=== PATIENT | female | born 1950 | race Caucasian/White ===

== ENCOUNTER 2017-10-12 20:36 | Observation (INO) | payer MEDICARE, SELFPAY ==
[2017-10-12 20:38] VITALS: BP 147/123; PULSE 112; RESP 28; TEMP 37.3; O2SAT 95; BMI 35.3
--- NOTE | 2017-10-12 20:48 | EKG12_ITS ---
Test Reason : Blood Pressure : / mmHG Vent. Rate : 081 BPM Atrial Rate : 079 BPM P-R Int : 000 ms QRS Dur : 074 ms QT Int : 394 ms P-R-T Axes : 000 -18 063 degrees QTc Int : 457 ms Sinus rhythm Otherwise normal ECG Confirmed by JIMI CUENCA, DELIA ([id number]), editor in chief ESTHER ARCHIBALD ([id number] on 10/18/2017 3:28:40 PM Referred By: MARCELLA Confirmed By:DELIA KRAUSE MD
--- NOTE | 2017-10-12 20:49 | CT_ITS ---
STUDY: CTA ABDOMEN AND PELVIS WITH IV CONTRAST REASON FOR EXAM: Female, 67 years old. Flank pain. Evaluate for aortic dissection. RADIATION DOSAGE (If Supplied By Facility): CTDIvol = ( 18.00 ) mGy, DLP = ( 981.56 ) mGycm TECHNIQUE: Transaxial images were obtained through the abdomen and pelvis without oral contrast, and with intravenous contrast. Sagittal and coronal images were reconstructed. Individualized dose optimization techniques were used for this CT. COMPARISON: None. FINDINGS: The lung bases are clear. The visualized portions of the heart and pericardium are within normal limits. There are no calcified gallstones present. The liver, spleen, pancreas, adrenal glands and kidneys are within normal limits. There is no bowel obstruction or inflammation. The patient is status post appendectomy. There is no evidence of aortic aneurysm or dissection. The celiac artery, superior mesenteric artery, bilateral renal arteries and inferior mesenteric artery are patent and normal in caliber. There is no abdominal or pelvic free air, free fluid or lymphadenopathy. There are no destructive osseous lesions. CT/CT ANGIO ABD&PEL W/O&W/DYE IMPRESSION: No evidence of abdominal aortic aneurysm or dissection. No acute abdominal or pelvic pathology. Electronically Signed: Simon Rodriguez, at 21:38 EDT Tel , Service support ,
--- NOTE | 2017-10-12 20:54 | ED.DCSUM_ITS ---
- ER Visit Summary Date of Service: 10/12/17 Chief Complaint: Abdominal and flank pain History of Present Illness: The patient is a 67 F presenting with abdominal pain and flank pain. She states this started just prior to arrival. She has pain in her mid abdomen and bilateral flanks. She tried Vicodin at home. She has had nausea and vomiting. She has a history of kidney stones and states this feels similar. She also has a history of fibromyalgia. Previous appendectomy. Denies fever. Denies chest pain or shortness of breath. Physical Examination: Vitals are stable. Patient is afebrile. Alert no acute distress. HEENT exam is unremarkable. Neck is supple. Lungs are clear and equal bilaterally. Heart is regular rate and rhythm. Abdomen is soft epigastric tenderness, no rebound or guarding. Extremities are unremarkable. Skin is warm and dry. No focal neurologic deficit. Remainder of exam is unremarkable. Emergency Department Course and Treatment: She is given morphine, Zofran IV. EKG is sinus rate of 81 with no acute changes. CBC chemistries unremarkable other than glucose 129, BUN 27, creatinine 1.17. Liver lipase are normal. Troponin is negative. She continues to have pain and was given a dose of Dilaudid IV. CTA abdomen and pelvis shows no acute process. Urinalysis shows positive leukocytes and nitrates, 10-25 white blood cells. Urine culture was sent. She was given Rocephin IV. She was given additional dose of Dilaudid and Phenergan. Patient continues to have significant pain. Will discuss with the hospitalist for observation. Disposition: Observation Impression: Pyelonephritis, intractable abdominal pain This note was generated with [employer] dictation software. It may contain incorrect words, spelling, and punctuation that were not noted in review of the chart prior to signing ED Disposition - Plan for ED Patient: Chief Complaint: Flank Pain Referrals: Chato Valdivia MD [Primary Care Provider] -
[2017-10-12] MEDS: 0.9% Normal Saline 1,000 ML 1000 ML IV (20:55)
[2017-10-12] MEDS: morphine 8 MG/ML Syringe IV (20:56)
[2017-10-12] MEDS: Ondansetron 4 MG/2 ML Vial IV (20:56)
--- NOTE | 2017-10-12 20:59 | NURSING ---
pt has a service dog and saw the paperwork to confirm.
[2017-10-12 21:00] LABS: Absolute Lymphocyte Count 3.93 X10^3/ul (0.83-4.51); Absolute Neutrophil Count 5.6 X10^3/uL (2.0-7.7); Basophil# 0.03 X10^3/uL; Basophil% 0.3 % (0-1); Eosinophil# 0.15 X10^3/uL; Eosinophils% 1.4 % (0-5); Hematocrit 43.1 % (37-47); Hemoglobin 14.5 g/dl (12.0-15.0); Lymphocyte # 3.93 X10^3/ul (4.0); Mean Corp Hgb Conc 33.6 g/gl (32-36); Mean Corpuscular Hgb 30.2 pg (27.0-32.0); Mean Corpuscular Volume 89.8 fL (81-99); Mean Platelet Vol. 9.2 fl (6.2-12.0); Monocyte# 1.18 X10^3/uL; Monocyte% 10.8 % (0-10); Neutrophil # 5.57 X10^3/uL (2.7-7.7); Platelet Count 332 K/mm3 (150-450); RBC Distribution Width CV 13.6 % (11.6-14.6); RBC Distribution Width SD 43.8 fl (35.1-43.9); White Blood Count 10.9 K/mm3 (4.4-11.0)
[2017-10-12 21:01] LABS: POSITIVE COUNT NO; POSITIVE DIFFERENTIAL NO; POSITIVE MORPHOLOGY NO
[2017-10-12 21:15] LABS: BUN 27 mg/dL (7-18); Creatinine, Serum 1.17 mg/dL (0.55-1.02); Estimated Creatinine Clearance 42.48 ml/min; Glucose 129 mg/dL (74-106)
[2017-10-12 21:16] LABS: AST(SGOT) 17 U/L (15-37); Alanine Aminotransfer ALT/SGPT 20 U/L (13-56); Albumin, Serum 3.7 g/dL (3.2-5.0); Alkaline Phosphatase 111 U/L (45-117); Anion Gap 8 (5-15); BUN/Creat Ratio 23.1 RATIO (10-20); Bilirubin, Direct 0.07 mg/dL (0.00-0.30); Calcium,Total 8.9 mg/dL (8.5-10.1); Chloride 109 mmol/L (98-107); EST Glomerular Filtration Rate 49 mL/min (>60); Est Glom Filt Rate - Afr Amer 59 mL/min (>60); Globulin 3.9 g/dL (2.2-4.2); Lipase 263 U/L (73-393); Protein, Total 7.6 g/dL (6.4-8.2); Sodium Level 143 mmol/L (136-145)
--- NOTE | 2017-10-12 21:19 | NURSING ---
let the doctor know that the pt is requesting more pain medication.
[2017-10-12 21:20] VITALS: BP 176/90; RESP 24; O2SAT 96
[2017-10-12] MEDS: HYDROmorphone 1 MG/ML Syringe IV ×2 (21:36→23:08)
[2017-10-12 21:54] LABS: Mucous, Urine 0 SEEN /hpf (<or=2+); Red Blood Cells-Urine 0 SEEN /hpf (0-5)
[2017-10-12 21:55] LABS: Color, Urine Yellow (Yellow); Glucose, Dipstick Normal (Normal); Ketone-Dipstick Negative (Negative); Leukocyte Esterase-Dipstick 500 /ul (Negative); Nitrite-Dipstick Positive (Negative); Occult Blood-Urine 10 /ul (Negative); Protein-Dipstick 15 mg/dl (Negative); Urine Bilirubin Dipstick Negative (Negative); Urine Clarity Clear (Clear); Urine Urobilinogen Normal (Normal); Urine pH 6.5 (5.0 - 8.0)
[2017-10-12 22:10] LABS: Bacteria RARE /hpf (None Seen); Squamous Epithelial Cells - UA 0-5 SEEN /hpf (5-10); White Blood Cells 10-25 SEEN /hpf (0-5)
[2017-10-12 23:17] VITALS: BP 137/89; PULSE 77; RESP 17; O2SAT 96
--- NOTE | 2017-10-12 23:33 | RAD_ITS ---
STUDY: X-RAY CHEST REASON FOR EXAM: Female, 67 years old. Dyspnea TECHNIQUE: Single AP portable view of the chest. COMPARISON: CT abdomen pelvis lung bases with a history/2017 FINDINGS: There are areas of hyperinflation. Minor atelectasis or scarring in the right middle lobe. There is no demonstrated pleural abnormality. Normal size heart. Normal mediastinum and srinivas. Normal visualized pulmonary arteries. Normal visualized aortic arch and descending thoracic aorta. Obscured thoracic spine. There is degenerative osteoarthritis of the bilateral shoulders. Air distended stomach. RAD/Chest 1 View (Portable) IMPRESSION: Hyperinflation. No pulmonary edema, congestive heart failure or confluent pneumonia. Electronically Signed: Nohelia Huffman MD at 0:21 EDT , Service support ,
[2017-10-13] VITALS (10 sets, daily range): BP systolic 133–152; BP diastolic 67–97; PULSE 78–100; RESP 14–18; TEMP 36.4–37.6; O2SAT 91–99; BMI 35.1
[2017-10-13] MEDS: Ceftriaxone 1 GM/50 ML BAG IV (00:53)
[2017-10-13] MEDS: proMETHazine 25 MG/ML Syringe 6.25 MG IV (00:53)
[2017-10-13 01:29] LABS: Lactic Acid 1.6 mmol/L (0.4-2.0)
--- NOTE | 2017-10-13 01:44 | PCM.HP.STD ---
Problem List (1) History of kidney stones Status: Chronic (2) Depression Status: Chronic (3) Fibromyalgia Status: Chronic History of Present Illness Date of Admission: 10/13/17 Chief Complaint: Abdominal pain/flank pain. The patient is a 67 year old F with past medical history as mentioned above presented to the emergency room because of abdominal and flank pain. She started having abdominal pain last night, it is in the upper abdomen, goes across the whole abdomen and today both flanks, sharp pain, 10 out of 10 in severity, described as a band around her abdomen, associated with nausea and vomiting and without aggravating or relieving factors. She mentioned that to his ago, she had burning sensation upon urination. She denies fever or chills. She had a history of kidney stones in the past status post shockwave lithotripsy. She had a history of fibromyalgia and she has been on Vicodin and Neurontin. She has still depression and anxiety and she has been on Cymbalta and Xanax. Upon arrival to the emergency room, patient was tachycardic, tachypneic, having profuse sweating and her blood pressure was slightly elevated. Her routine blood work was remarkable for BUN of 27 creatinine 1.17, otherwise normal. LFT and lipase were normal. Lactic acid was normal. EKG revealed sinus tachycardia, no acute ischemic changes. Troponin was negative. Urine analysis revealed clear urine, was positive for nitrite and leukocyte esterase, there was 10-25 WBCs and rare bacteria. CTA abdomen and pelvis showed no evidence of acute intra-abdominal aortic aneurysm or dissection, no acute abdominal or pelvic pathology. Chest x-ray showed no infiltrate, consolidation or effusion. She received a total of 18 mg of IV morphine in the ER as well as total of 2 mg of IV hydromorphone without significant improvement of her abdominal pain. She is being admitted for intractable abdominal/flank pain due to acute cystitis and probable acute pyelonephritis as well as dehydration. Past Medical History Past Medical History (Chronic Problems): Chronic Problems History of kidney stones (Chronic) Depression (Chronic) Fibromyalgia (Chronic) Allergies No Known Allergies Allergy (Verified 10/12/17 20:38) Home Medications: Ambulatory Orders Medication Instructions Recorded ALPRAZolam [Xanax] 1 mg PO QHS 10/12/17 Duloxetine Hcl [Cymbalta] 30 mg PO DAILY 10/12/17 Gabapentin [Neurontin] 400 mg PO TID 10/12/17 Hydrocodone/Acetaminophen [Fossil 1 each PO Q6H PRN PRN 10/12/17 5-325 Tablet] Surgical History: appendectomy, tonsillectomy, - - Lithotripsy for kidney stones. Psychiatric History: Anxiety, Depression [employer] History: No pertinent [employer] history Lives: Spouse/ Significant Other Smoking Status: Never smoker Alcohol: None Drugs: None - *Family History Maternal History Items: No pertinent history Paternal History Items: No pertinent history Review of Systems Constitutional: Reports: Anorexia. Denies: Chills, Fever, Weakness Eyes: Denies: Blurred vision, Double vision, Drainage, Redness HEENT: Denies: Difficulty Hearing, Ear Pain, Eye Pain, Nasal Congestion, Sore Throat Cardiovascular: Denies: Chest Pain, Chest Tightness, Edema, Heaviness, Light Headedness, Palpitations, Syncope Respiratory: Denies: Cough, Pleuritic Pain, Shortness of Breath, Sputum production, Wheezing Gastrointestinal: Reports: Abdominal Pain, Nausea, Vomiting. Denies: Constipation, Diarrhea, Hematochezia, Melena Genitourinary: Reports: Dysuria. Denies: Frequency, Hematuria Musculoskeletal: Denies: Arm Pain, Back Pain, Foot Pain Skin: Denies: Dryness, Rash Neurological: Denies: Balance problems, Double vision, Change in Speech, Slurred speech, Focal weakness, Headaches, Incoordination Psychiatric: Reports: Depression. Denies: Anxiety Endocrine: Denies: Change in Body Habitus, Polydipsia VTE Information - Inpt Only VTE Present on Admission: No VTE Mechan Device Prophylaxis: None VTE Pharm Prophylaxis ordered?: Yes - Physical Exam General: Alert, Oriented x3, Cooperative, No apparent distress HEENT: Atraumatic, PERRLA, EOMI Oral: Moist Mucosa, No Gingival or Mucosal Lesions/ Ulcerations Neck: Supple, No JVD, Negative Carotid Bruits, Trachea Midline, Thyroid Normal Size and Texture Lungs: Clear to auscultation, No rhonchi, No wheeze, No rales, Diminished Cardiovascular: Regular rate, Regular Rhythm, Normal S1, Normal S2, PMI Normal Abdomen: Bowel Sounds Present, Soft, Non Tender, Non-Distended, No Hepato-splenomegaly Extremities: No clubbing, No cyanosis, No edema Skin: No rashes, No breakdown Lymphatic: No Cervical, Supraclavicular, or Inguinal Adenopathy Neurological: Cranial nerves II-XII grossly intact, Motor Exam 5/5 strength throughout Psych/Mental Status: Normal Affect, Appropriate, Alert and oriented to time, place, person, mood and affect Vital Signs Temp Pulse Resp BP Pulse Ox 97.6 F L 87 18 152/97 H 96 10/13/17 01:26 10/13/17 01:26 10/13/17 01:26 10/13/17 01:26 10/13/17 01:26 Laboratory Tests 10/13/17 10/12/17 10/12/17 Range/Units 00:57 23:45 21:45 WBC (4.4-11.0) K/mm3 RBC (4.2-5.4) M/mm3 Hgb (12.0-15.0) g/dl Hct (37-47) % MCV (81-99) fL MCH (27.0-32.0) pg MCHC (32-36) g/gl RDW (11.6-14.6) % RDW Differential (35.1-43.9) fl Plt Count (150-450) K/mm3 MPV (6.2-12.0) fl Immature Gran % (Auto) (0.0-0.9) % Neut % (Auto) (47-70) % Lymph % (Auto) (19-41) % [place] % (Auto) (0-10) % Eos % (Auto) (0-5) % Baso % (Auto) (0-1) % Absolute Neuts (auto) (2.0-7.7) X10^3/uL Absolute Lymphs (auto) (0.83-4.51) X10^3/ul Total Counted Sodium (136-145) mmol/L Potassium (3.5-5.1) mmol/L Chloride (98-107) mmol/L Carbon Dioxide (21.0-32.0) mmol/L Anion Gap (5-15) BUN (7-18) mg/dL Creatinine (0.55-1.02) mg/dL Estim Creat Clear Calc ml/min Est GFR (MDRD) Af Amer (>60) mL/min Est GFR (MDRD) Non-Af (>60) mL/min BUN/Creatinine Ratio (10-20) RATIO Glucose (74-106) mg/dL Lactic Acid 1.6 (0.4-2.0) mmol/L Calcium (8.5-10.1) mg/dL Total Bilirubin (0.20-1.00) mg/dL Direct Bilirubin (0.00-0.30) mg/dL AST (15-37) U/L ALT (13-56) U/L Alkaline Phosphatase (45-117) U/L Troponin I < 0.02 (<0.06) ng/mL Total Protein (6.4-8.2) g/dL Albumin (3.2-5.0) g/dL Globulin (2.2-4.2) g/dL Lipase (73-393) U/L Urine Color Yellow (Yellow) Urine Clarity Clear (Clear) Urine pH 6.5 (5.0 - 8.0) Ur Specific [place] 1.010 (1.002-1.030) Urine Protein 15 H (Negative) mg/dl Urine Glucose (UA) Normal (Normal) mg/dl Urine Ketones Negative (Negative) mg/dl Urine Occult Blood 10 H (Negative) /ul Urine Nitrite Positive H (Negative) Urine Bilirubin Negative (Negative) mg/dL Urine Urobilinogen Normal (Normal) mg/dl Ur Leukocyte Esterase 500 H (Negative) /ul Urine RBC 0 SEEN (0-5) /hpf Urine WBC 10-25 SEEN (0-5) /hpf Ur Squamous Epith Cells 0-5 SEEN (5-10) /hpf Urine Bacteria RARE (None Seen) /hpf Urine Mucus 0 SEEN (<or=2+) /hpf 10/12/17 10/12/17 Range/Units 20:40 20:40 WBC 10.9 (4.4-11.0) K/mm3 RBC 4.80 (4.2-5.4) M/mm3 Hgb 14.5 (12.0-15.0) g/dl Hct 43.1 (37-47) % MCV 89.8 (81-99) fL MCH 30.2 (27.0-32.0) pg MCHC 33.6 (32-36) g/gl RDW 13.6 (11.6-14.6) % RDW Differential 43.8 (35.1-43.9) fl Plt Count 332 (150-450) K/mm3 MPV 9.2 (6.2-12.0) fl Immature Gran % (Auto) 0.500 (0.0-0.9) % Neut % (Auto) 51.0 (47-70) % Lymph % (Auto) 36.0 (19-41) % [place] % (Auto) 10.8 H (0-10) % Eos % (Auto) 1.4 (0-5) % Baso % (Auto) 0.3 (0-1) % Absolute Neuts (auto) 5.6 (2.0-7.7) X10^3/uL Absolute Lymphs (auto) 3.93 (0.83-4.51) X10^3/ul Total Counted Not Reportable Sodium 143 (136-145) mmol/L Potassium 4.0 (3.5-5.1) mmol/L Chloride 109 H (98-107) mmol/L Carbon Dioxide 26.0 (21.0-32.0) mmol/L Anion Gap 8 (5-15) BUN 27 H (7-18) mg/dL Creatinine 1.17 H (0.55-1.02) mg/dL Estim Creat Clear Calc 42.48 ml/min Est GFR (MDRD) Af Amer 59 L (>60) mL/min Est GFR (MDRD) Non-Af 49 L (>60) mL/min BUN/Creatinine Ratio 23.1 H (10-20) RATIO Glucose 129 H (74-106) mg/dL Lactic Acid (0.4-2.0) mmol/L Calcium 8.9 (8.5-10.1) mg/dL Total Bilirubin 0.30 (0.20-1.00) mg/dL Direct Bilirubin 0.07 (0.00-0.30) mg/dL AST 17 (15-37) U/L ALT 20 (13-56) U/L Alkaline Phosphatase 111 (45-117) U/L Troponin I < 0.02 (<0.06) ng/mL Total Protein 7.6 (6.4-8.2) g/dL Albumin 3.7 (3.2-5.0) g/dL Globulin 3.9 (2.2-4.2) g/dL Lipase 263 (73-393) U/L Urine Color (Yellow) Urine Clarity (Clear) Urine pH (5.0 - 8.0) Ur Specific [place] (1.002-1.030) Urine Protein (Negative) mg/dl Urine Glucose (UA) (Normal) mg/dl Urine Ketones (Negative) mg/dl Urine Occult Blood (Negative) /ul Urine Nitrite (Negative) Urine Bilirubin (Negative) mg/dL Urine Urobilinogen (Normal) mg/dl Ur Leukocyte Esterase (Negative) /ul Urine RBC (0-5) /hpf Urine WBC (0-5) /hpf Ur Squamous Epith Cells (5-10) /hpf Urine Bacteria (None Seen) /hpf Urine Mucus (<or=2+) /hpf Clinical Impression(s) from Imaging Studies Abdomen/Pelvis CTA 10/12/17 20:49 IMPRESSION: No evidence of abdominal aortic aneurysm or dissection. No acute abdominal or pelvic pathology. Electronically Signed: Simon Rodriguez at 21:38 EDT Tel , Service support , Chest X-Ray 10/12/17 23:33 IMPRESSION: Hyperinflation. No pulmonary edema, congestive heart failure or confluent pneumonia. Electronically Signed: Nohelia Huffman MD at 0:21 EDT , Service support , Assessment/Plan This is a 67 years old female patient admitted because of upper abdominal/flank pain with nausea and vomiting as well as dysuria and she was found to have acute cystitis and probable acute pyelonephritis. #1 acute cystitis/probable acute pyelonephritis: With intractable abdominal pain, received a total of 18 mg IV morphine and 2 mg of hydromorphone without significant improvement. Initially, she was tachycardic, afebrile and blood pressure was slightly elevated. After IV fluids and IV morphine, her heart rate and blood pressure stabilized. No evidence of sepsis or severe sepsis. Lactic acid is normal. Urine culture and blood culture sent, patient received 1 dose of IV Rocephin. CTA abdomen and pelvis without acute findings. Plan: Admit to [facility] [place] floor, IV fluids, follow blood and urine cultures, IV Rocephin 2 g every 24 hours, IV morphine as needed, IV antiemetics, repeat CBC and BMP tomorrow morning, PT OT evaluation and treatment. #2 dehydration: Secondary to above in addition to nausea and vomiting. BUN is 27 and creatinine is 1.17, her baseline is normal. Plan: IV fluids, input output chart, repeat CBC and BMP tomorrow morning. #3 history of kidney stones: CTA abdomen and pelvis without evidence of kidney stones. #4 depression/anxiety: Continue Xanax and Cymbalta. #5 fibromyalgia: Continue Neurontin, IV morphine as needed as above. #6 restless leg syndrome: Continue home medication. Patient mentioned that she is taking medication for this, resume when home medication list updated. #7 DVT prophylaxis: Subcu Lovenox. This note was generated with [employer] dictation software. It may contain incorrect words, spelling, and punctuation that were not noted in checking the note before signing. Code Visit Inpatient E&M: 20927 Init Hosp L3
--- NOTE | 2017-10-13 01:55 | HP.PCM_ITS ---
Problem List (1) History of kidney stones Status: Chronic (2) Depression Status: Chronic (3) Fibromyalgia Status: Chronic History of Present Illness Date of Admission: 10/13/17 Chief Complaint: Abdominal pain/flank pain. The patient is a 67 year old F with past medical history as mentioned above presented to the emergency room because of abdominal and flank pain. She started having abdominal pain last night, it is in the upper abdomen, goes across the whole abdomen and today both flanks, sharp pain, 10 out of 10 in severity, described as a band around her abdomen, associated with nausea and vomiting and without aggravating or relieving factors. She mentioned that to his ago, she had burning sensation upon urination. She denies fever or chills. She had a history of kidney stones in the past status post shockwave lithotripsy. She had a history of fibromyalgia and she has been on Vicodin and Neurontin. She has still depression and anxiety and she has been on Cymbalta and Xanax. Upon arrival to the emergency room, patient was tachycardic, tachypneic, having profuse sweating and her blood pressure was slightly elevated. Her routine blood work was remarkable for BUN of 27 creatinine 1.17, otherwise normal. LFT and lipase were normal. Lactic acid was normal. EKG revealed sinus tachycardia, no acute ischemic changes. Troponin was negative. Urine analysis revealed clear urine, was positive for nitrite and leukocyte esterase, there was 10-25 WBCs and rare bacteria. CTA abdomen and pelvis showed no evidence of acute intra-abdominal aortic aneurysm or dissection, no acute abdominal or pelvic pathology. Chest x-ray showed no infiltrate, consolidation or effusion. She received a total of 18 mg of IV morphine in the ER as well as total of 2 mg of IV hydromorphone without significant improvement of her abdominal pain. She is being admitted for intractable abdominal/flank pain due to acute cystitis and probable acute pyelonephritis as well as dehydration. Past Medical History Past Medical History (Chronic Problems): Chronic Problems History of kidney stones (Chronic) Depression (Chronic) Fibromyalgia (Chronic) Allergies No Known Allergies Allergy (Verified 10/12/17 20:38) Home Medications: Ambulatory Orders Medication Instructions Recorded ALPRAZolam [Xanax] 1 mg PO QHS 10/12/17 Duloxetine Hcl [Cymbalta] 30 mg PO DAILY 10/12/17 Gabapentin [Neurontin] 400 mg PO TID 10/12/17 Hydrocodone/Acetaminophen [[place] 1 each PO Q6H PRN PRN 10/12/17 5-325 Tablet] Surgical History: appendectomy, tonsillectomy, - - Lithotripsy for kidney stones. 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 Denies: Chills, Fever, Weakness Eyes: Denies: Blurred vision, Double vision, Drainage, Redness HEENT: Denies: Difficulty Hearing, Ear Pain, Eye Pain, Nasal Congestion, Sore Throat Cardiovascular: Denies: Chest Pain, Chest Tightness, Edema, Heaviness, Light Headedness, Palpitations, Syncope Respiratory: Denies: Cough, Pleuritic Pain, Shortness of Breath, Sputum production, Wheezing Gastrointestinal: Reports: Abdominal Pain, Nausea, Vomiting. Denies: Constipation, Diarrhea, Hematochezia, Melena Genitourinary: Reports: Dysuria. Denies: Frequency, Hematuria Musculoskeletal: Denies: Arm Pain, Back Pain, Foot Pain Skin: Denies: Dryness, Rash Neurological: Denies: Balance problems, Double vision, Change in Speech, Slurred speech, Focal weakness, Headaches, Incoordination Psychiatric: Reports: Depression. Denies: Anxiety Endocrine: Denies: Change in Body Habitus, Polydipsia VTE Information - Inpt Only VTE Present on Admission: No VTE Mechan Device Prophylaxis: None VTE Pharm Prophylaxis ordered?: Yes - Physical Exam General: Alert, Oriented x3, Cooperative, No apparent distress HEENT: Atraumatic, PERRLA, EOMI Oral: Moist Mucosa, No Gingival or Mucosal Lesions/ Ulcerations Neck: Supple, No JVD, Negative Carotid Bruits, Trachea Midline, Thyroid Normal Size and Texture Lungs: Clear to auscultation, No rhonchi, No wheeze, No rales, Diminished Cardiovascular: Regular rate, Regular Rhythm, Normal S1, Normal S2, PMI Normal Abdomen: Bowel Sounds Present, Soft, Non Tender, Non-Distended, No Hepato- splenomegaly Extremities: No clubbing, No cyanosis, No edema Skin: No rashes, No breakdown Lymphatic: No Cervical, Supraclavicular, or Inguinal Adenopathy Neurological: Cranial nerves II-XII grossly intact, Motor Exam 5/5 strength throughout Psych/Mental Status: Normal Affect, Appropriate, Alert and oriented to time, place, person, mood and affect Vital Signs Temp Pulse Resp BP Pulse Ox 97.6 F L 87 18 152/97 H 96 10/13/17 01:26 10/13/17 01:26 10/13/17 01:26 10/13/17 01:26 10/13/17 01:26 Laboratory Tests 3 10/13/17 10/12/17 10/12/17 Range/Units 00:57 23:45 21:45 WBC (4.4-11.0) K/mm3 RBC (4.2-5.4) M/mm3 Hgb (12.0-15.0) g/dl Hct (37-47) % MCV (81-99) fL MCH (27.0-32.0) pg MCHC (32-36) g/gl RDW (11.6-14.6) % RDW Differential (35.1-43.9) fl Plt Count (150-450) K/mm3 MPV (6.2-12.0) fl Immature Gran % (Auto) (0.0-0.9) % Neut % (Auto) (47-70) % Lymph % (Auto) (19-41) % [place] % (Auto) (0-10) % Eos % (Auto) (0-5) % Baso % (Auto) (0-1) % Absolute Neuts (auto) (2.0-7.7) X10^3/uL Absolute Lymphs (auto) (0.83-4.51) X10^3/ul Total Counted Sodium (136-145) mmol/L Potassium (3.5-5.1) mmol/L Chloride (98-107) mmol/L Carbon Dioxide (21.0-32.0) mmol/L Anion Gap (5-15) BUN (7-18) mg/dL Creatinine (0.55-1.02) mg/dL Estim Creat Clear Calc ml/min Est GFR (MDRD) Af Amer (>60) mL/min Est GFR (MDRD) Non-Af (>60) mL/min BUN/Creatinine Ratio (10-20) RATIO Glucose (74-106) mg/dL Lactic Acid 1.6 (0.4-2.0) mmol/L Calcium (8.5-10.1) mg/dL Total Bilirubin (0.20-1.00) mg/dL Direct Bilirubin (0.00-0.30) mg/dL AST (15-37) U/L ALT (13-56) U/L Alkaline Phosphatase (45-117) U/L Troponin I < 0.02 (<0.06) ng/mL Total Protein (6.4-8.2) g/dL Albumin (3.2-5.0) g/dL Globulin (2.2-4.2) g/dL Lipase (73-393) U/L Urine Color Yellow (Yellow) Urine Clarity Clear (Clear) Urine pH 6.5 (5.0 - 8.0) Ur Specific [place] 1.010 (1.002-1.030) Urine Protein 15 H (Negative) mg/dl Urine Glucose (UA) Normal (Normal) mg/dl Urine Ketones Negative (Negative) mg/dl Urine Occult Blood 10 H (Negative) /ul Urine Nitrite Positive H (Negative) Urine Bilirubin Negative (Negative) mg/dL Urine Urobilinogen Normal (Normal) mg/dl Ur Leukocyte Esterase 500 H (Negative) /ul Urine RBC 0 SEEN (0-5) /hpf Urine WBC 10-25 SEEN (0-5) /hpf Ur Squamous Epith Cells 0-5 SEEN (5-10) /hpf Urine Bacteria RARE (None Seen) /hpf Urine Mucus 0 SEEN (<or=2+) /hpf 3 10/12/17 10/12/17 Range/Units 20:40 20:40 WBC 10.9 (4.4-11.0) K/mm3 RBC 4.80 (4.2-5.4) M/mm3 Hgb 14.5 (12.0-15.0) g/dl Hct 43.1 (37-47) % MCV 89.8 (81-99) fL MCH 30.2 (27.0-32.0) pg MCHC 33.6 (32-36) g/gl RDW 13.6 (11.6-14.6) % RDW Differential 43.8 (35.1-43.9) fl Plt Count 332 (150-450) K/mm3 MPV 9.2 (6.2-12.0) fl Immature Gran % (Auto) 0.500 (0.0-0.9) % Neut % (Auto) 51.0 (47-70) % Lymph % (Auto) 36.0 (19-41) % [place] % (Auto) 10.8 H (0-10) % Eos % (Auto) 1.4 (0-5) % Baso % (Auto) 0.3 (0-1) % Absolute Neuts (auto) 5.6 (2.0-7.7) X10^3/uL Absolute Lymphs (auto) 3.93 (0.83-4.51) X10^3/ul Total Counted Not Reportable Sodium 143 (136-145) mmol/L Potassium 4.0 (3.5-5.1) mmol/L Chloride 109 H (98-107) mmol/L Carbon Dioxide 26.0 (21.0-32.0) mmol/L Anion Gap 8 (5-15) BUN 27 H (7-18) mg/dL Creatinine 1.17 H (0.55-1.02) mg/dL Estim Creat Clear Calc 42.48 ml/min Est GFR (MDRD) Af Amer 59 L (>60) mL/min Est GFR (MDRD) Non-Af 49 L (>60) mL/min BUN/Creatinine Ratio 23.1 H (10-20) RATIO Glucose 129 H (74-106) mg/dL Lactic Acid (0.4-2.0) mmol/L Calcium 8.9 (8.5-10.1) mg/dL Total Bilirubin 0.30 (0.20-1.00) mg/dL Direct Bilirubin 0.07 (0.00-0.30) mg/dL AST 17 (15-37) U/L ALT 20 (13-56) U/L Alkaline Phosphatase 111 (45-117) U/L Troponin I < 0.02 (<0.06) ng/mL Total Protein 7.6 (6.4-8.2) g/dL Albumin 3.7 (3.2-5.0) g/dL Globulin 3.9 (2.2-4.2) g/dL Lipase 263 (73-393) U/L Urine Color (Yellow) Urine Clarity (Clear) Urine pH (5.0 - 8.0) Ur Specific [place] (1.002-1.030) Urine Protein (Negative) mg/dl Urine Glucose (UA) (Normal) mg/dl Urine Ketones (Negative) mg/dl Urine Occult Blood (Negative) /ul Urine Nitrite (Negative) Urine Bilirubin (Negative) mg/dL Urine Urobilinogen (Normal) mg/dl Ur Leukocyte Esterase (Negative) /ul Urine RBC (0-5) /hpf Urine WBC (0-5) /hpf Ur Squamous Epith Cells (5-10) /hpf Urine Bacteria (None Seen) /hpf Urine Mucus (<or=2+) /hpf Clinical Impression(s) from Imaging Studies Abdomen/Pelvis CTA 10/12/17 20:49 IMPRESSION: No evidence of abdominal aortic aneurysm or dissection. No acute abdominal or pelvic pathology. Electronically Signed: Simon Rodriguez at 21:38 EDT Tel , Service support , Chest X-Ray 10/12/17 23:33 IMPRESSION: Hyperinflation. No pulmonary edema, congestive heart failure or confluent pneumonia. Electronically Signed: Nohelia Huffman MD at 0:21 EDT , Service support , Assessment/Plan This is a 67 years old female patient admitted because of upper abdominal/flank pain with nausea and vomiting as well as dysuria and she was found to have acute cystitis and probable acute pyelonephritis. #1 acute cystitis/probable acute pyelonephritis: With intractable abdominal pain , received a total of 18 mg IV morphine and 2 mg of hydromorphone without significant improvement. Initially, she was tachycardic, afebrile and blood pressure was slightly elevated. After IV fluids and IV morphine, her heart rate and blood pressure stabilized. No evidence of sepsis or severe sepsis. Lactic acid is normal. Urine culture and blood culture sent, patient received 1 dose of IV Rocephin. CTA abdomen and pelvis without acute findings. Plan: Admit to [facility] floor, IV fluids, follow blood and urine cultures, IV Rocephin 2 g every 24 hours, IV morphine as needed, IV antiemetics, repeat CBC and BMP tomorrow morning, PT OT evaluation and treatment. #2 dehydration: Secondary to above in addition to nausea and vomiting. BUN is 27 and creatinine is 1.17, her baseline is normal. Plan: IV fluids, input output chart, repeat CBC and BMP tomorrow morning. #3 history of kidney stones: CTA abdomen and pelvis without evidence of kidney stones. #4 depression/anxiety: Continue Xanax and Cymbalta. #5 fibromyalgia: Continue Neurontin, IV morphine as needed as above. #6 restless leg syndrome: Continue home medication. Patient mentioned that she is taking medication for this, resume when home medication list updated. #7 DVT prophylaxis: Subcu Lovenox. This note was generated with [employer] dictation software. It may contain incorrect words, spelling, and punctuation that were not noted in checking the note before signing. Code Visit Inpatient E&M: 63115 Init Hosp L3
[2017-10-13] MEDS: 0.9% Normal Saline 1,000 ML 100 ML IV (03:47)
[2017-10-13] MEDS: HYDROmorphone 1 MG/ML Syringe IV (03:51)
[2017-10-13] MEDS: Ketorolac 30 MG/ML Syringe IV (05:36)
[2017-10-13] MEDS: 0.9% NaCl Peripheral Flush Adult/Peds IV (05:37)
[2017-10-13 06:16] LABS: Anion Gap 9 (5-15); BUN 24 mg/dL (7-18); Calcium,Total 8.5 mg/dL (8.5-10.1); Chloride 108 mmol/L (98-107); Creatinine, Serum 0.89 mg/dL (0.55-1.02); EST Glomerular Filtration Rate 67 mL/min (>60); Est Glom Filt Rate - Afr Amer 81 mL/min (>60); Estimated Creatinine Clearance 53.68 ml/min; Glucose 115 mg/dL (74-106); Potassium 4.3 mmol/L (3.5-5.1); Sodium Level 143 mmol/L (136-145)
[2017-10-13 06:22] LABS: Absolute Lymphocyte Count 1.57 X10^3/ul (0.83-4.51); Basophil# 0.02 X10^3/uL; Basophil% 0.1 % (0-1); Eosinophil# 0.01 X10^3/uL; Eosinophils% 0.1 % (0-5); Hematocrit 44.6 % (37-47); Hemoglobin 14.5 g/dl (12.0-15.0); Lymphocyte # 1.57 X10^3/ul (4.0); Lymphocyte % 9.9 % (19-41); Mean Corp Hgb Conc 32.5 g/gl (32-36); Mean Corpuscular Hgb 29.7 pg (27.0-32.0); Mean Corpuscular Volume 91.2 fL (81-99); Mean Platelet Vol. 9.3 fl (6.2-12.0); Monocyte# 1.21 X10^3/uL; Monocyte% 7.6 % (0-10); Neutrophil # 13.01 X10^3/uL (2.7-7.7); Platelet Count 226 K/mm3 (150-450); RBC Distribution Width CV 13.8 % (11.6-14.6); RBC Distribution Width SD 45.7 fl (35.1-43.9); Red Blood Count 4.89 M/mm3 (4.2-5.4); White Blood Count 15.9 K/mm3 (4.4-11.0)
[2017-10-13 06:49] LABS: POSITIVE COUNT NO; POSITIVE DIFFERENTIAL NO; POSITIVE MORPHOLOGY NO
[2017-10-13] MEDS: Gabapentin 400 MG Capsule PO ×2 (08:38→10:56)
[2017-10-13] MEDS: Acetaminophen 325 MG Tablet 650 MG PO (08:38)
--- NOTE | 2017-10-13 08:45 | PCM.DC ---
- Discharge Diagnoses Current Active Problems: Current Active and Chronic Problems History of kidney stones (Chronic) Depression (Chronic) Fibromyalgia (Chronic) Reason(s) for Visit for Discharge Instructions: Abdominal pain You will use the following diet at home:: Regular Your food should be the consistency of: Regular Your liquids should be the consistency of: Regular/Thin Discharge Activity: Return to Normal Activity Additional Instructions: Please continue to hydrate yourself. Take all your medications as prescribed. You have been prescribed a muscle relaxant to see if that helps with the pain in your flank. Do not drive whilst on these medications as well as gabapentin because it can make you drowsy. Allergies/Adverse Reactions: Allergies No Known Allergies Allergy (Verified 10/12/17 20:38) Medications to take at Discharge ALPRAZolam [Xanax] 1 mg PO QHS 10/12/17 Duloxetine Hcl [Cymbalta] 30 mg PO DAILY 10/12/17 Gabapentin [Neurontin] 400 mg PO TID 10/12/17 Hydrocodone/Acetaminophen [[place] 5-325 Tablet] 1 each PO Q6H PRN PRN 10/12/17 Cefdinir [Omnicef [equiv]] 300 mg PO Q12H #6 cap 10/13/17 Cyclobenzaprine [Flexeril] 10 mg PO TID #10 tab 10/13/17 The following prescriptions were given: Cefdinir [Omnicef [equiv]] 300 mg PO Q12H #6 capsule Cyclobenzaprine [Flexeril] 10 mg PO TID #10 tablet Primary Care Physician: Chato Valdivia MD [Primary Care Provider] - Please follow up with your Primary Care Physician in: within 2 weeks Proposed Discharge Date: 10/13/17
--- NOTE | 2017-10-13 08:48 | DS.PCM_ITS ---
Discharge Date and Diagnosis Date of Admission: 10/13/17 Date of Discharge: 10/13/17 - Primary Discharge Diagnosis UTI Abdominal pain - Secondary Discharge Diagnosis Chronic Problems History of kidney stones (Chronic) Depression (Chronic) Fibromyalgia (Chronic) Hospital Course and Treatment Imaging Results: Clinical Impression(s) from Imaging Studies Abdomen/Pelvis CTA 10/12/17 20:49 IMPRESSION: No evidence of abdominal aortic aneurysm or dissection. No acute abdominal or pelvic pathology. Electronically Signed: Simon Rodriguez, at 21:38 EDT Tel , Service support , Chest X-Ray 10/12/17 23:33 IMPRESSION: Hyperinflation. No pulmonary edema, congestive heart failure or confluent pneumonia. Electronically Signed: Nohelia Huffman MD at 0:21 EDT , Service support , None Operations: None Procedures: None Summary of Care Provided: 67 years old female admitted with upper abdominal/flank pain with nausea and vomiting as well as dysuria and she was found to have acute cystitis. 1. Acute cystitis, with intractable abdominal pain, patient was admitted for pain control, had a huge amount of pain medicines in the ED and on the floor, pain improved with admission, started on IV Rocephin and discharged on cefdinir , patient improved, patient was kept on her home [place], Flexeril was added for muscle spasms of the left flank. 2. Dehydration, resolved with IV fluids, BMP shows improvement in BUN and creatinine. 3. History of kidney stones, admitting CT abdomen and pelvis without evidence of kidney stones. 4. Depression/anxiety, on Xanax and Cymbalta. 5. Fibromyalgia, on Neurontin 6. Restless leg syndrome Discharge Diet: No Restrictions Discharge Activity: Return to Normal Activity Home Medications: Medications to take at Discharge ALPRAZolam [Xanax] 1 mg PO QHS 10/12/17 Duloxetine Hcl [Cymbalta] 30 mg PO DAILY 10/12/17 Gabapentin [Neurontin] 400 mg PO TID 10/12/17 Hydrocodone/Acetaminophen [[place] 5-325 Tablet] 1 each PO Q6H PRN PRN 10/12/17 Cefdinir [Omnicef [equiv]] 300 mg PO Q12H #6 cap 10/13/17 Cyclobenzaprine [Flexeril] 10 mg PO TID #10 tab 10/13/17 Following Prescrptions Were Given to Patient: Cefdinir [Omnicef [equiv]] 300 mg PO Q12H #6 cap Cyclobenzaprine [Flexeril] 10 mg PO TID #10 tab Primary Care Physician: Chato Valdivia MD [Primary Care Provider] - Please follow up with your Primary Care Physician in: within 2 weeks Disposition: Home Minutes spent on discharge:: 25 Patient Condition:: Stable Medical Necessity - Tobacco Use Smoking Status: Never smoker Meaningful Use Info Meaningful Use Diagnoses (Choose all that apply): None applicable Code Visit Inpatient E&M: 11271 Disch Hosp
[2017-10-13] MEDS: DULoxetine Hcl 30 MG Capsule PO (09:11)
[2017-10-13] MEDS: HYDROcodone Bitartrate/Apap 5/325 Tablet PO (10:54)
== END 2017-10-13 08:45 | disposition home or self-care (01) ==
LOC: ED 22:15 → PCU 10-13 01:51
PROVIDERS: Admitting Provider Hospitalist; Emergency Provider Emergency Medicine; Family Provider Family Medicine; PCP Family Medicine; Visit Provider Internal Medicine
DX: N30.00 Acute cystitis without hematuria (principal); G25.81 Restless legs syndrome; M79.7 Fibromyalgia; Z87.442 Personal history of urinary calculi; E86.0 Dehydration; F41.9 Anxiety disorder, unspecified; F32.9 Major depressive disorder, single episode, unspecified; Z79.899 Other long term (current) drug therapy
CPT/HCPCS: 36415; 71045; 74174; 80048; 80076; 81001; 83605; 83690; 84484; 85025; 87040; 87086; 87088; 87186; 93005; 96361; 96374; 96375; 96376; 99218; 99285; J7030; Q9967; A4216; G0378; J2405

== ENCOUNTER → 2019-01-31 | Outpatient (CLI) | payer MEDICARE, SELFPAY ==
[2017-10-13 02:07] VITALS: BMI 35.1
[2019-01-31 17:12] LABS: Absolute Lymphocyte Count 3.09 X10^3/uL (0.83-4.51); Absolute Neutrophil Count 6.6 X10^3/uL (2.0-7.7); Basophil# 0.05 X10^3/uL; Basophil% 0.5 % (0-1); Eosinophil# 0.21 X10^3/uL; Eosinophils% 1.9 % (0-5); Hematocrit 46.4 % (37-47); Hemoglobin 15.1 g/dL (12.0-15.0); Lymphocyte # 3.09 X10^3/ul (4.0); Mean Corp Hgb Conc 32.5 g/dL (32-36); Mean Corpuscular Hgb 29.2 pg (27.0-32.0); Mean Corpuscular Volume 89.6 fL (81-99); Mean Platelet Vol. 10.3 fl (6.2-12.0); Monocyte# 1.02 X10^3/uL; Monocyte% 9.2 % (0-10); NRBC Flagged by Analyzer 0 % (0-5); Neutrophil # 6.62 X10^3/uL (2.7-7.7); Platelet Count 287 K/mm3 (150-450); RBC Distribution Width CV 13.4 % (11.6-14.6); RBC Distribution Width SD 43.8 fl (35.1-43.9); Red Blood Count 5.18 M/mm3 (4.2-5.4)
[2019-01-31 17:54] LABS: ALB/GLOB Ratio 0.9 RATIO (0.9-2.4); AST(SGOT) 17 U/L (15-37); Alanine Aminotransfer ALT/SGPT 26 U/L (13-56); Albumin, Serum 3.6 g/dL (3.2-5.0); Alkaline Phosphatase 129 U/L (45-117); Anion Gap 10 (5-15); BUN 21 mg/dL (7-18); BUN/Creat Ratio 19.4 RATIO (10-20); Calcium,Total 8.8 mg/dL (8.5-10.1); Chloride 110 mmol/L (98-107); Cholesterol 189 mg/dL (200); Creatinine, Serum 1.08 mg/dL (0.55-1.02); EST Glomerular Filtration Rate 53 mL/min (>60); Est Glom Filt Rate - Afr Amer 64 mL/min (>60); Globulin 3.8 g/dL (2.2-4.2); Glucose 108 mg/dL (74-106); High Density Lipoprotein 38 mg/dL; Potassium 3.9 mmol/L (3.5-5.1); Protein, Total 7.4 g/dL (6.4-8.2); Sodium Level 146 mmol/L (136-145); Thyroid Stim Hormone (TSH) 0.91 uIU/mL (0.358-3.74); Triglycerides 284 mg/dL; Very Low Density Lipoprotein 57 mg/dL (5-40)
[2019-01-31 18:52] LABS: Hepatitis C Antibody Non-Reactive (Nonreactive)
== END | disposition home or self-care (01) ==
PROVIDERS: Family Provider Family Medicine; PCP Family Medicine; Visit Provider Family Medicine Geriatric Medicine
DX: B27.90 Infectious mononucleosis, unspecified without complication (principal); E78.49 Other hyperlipidemia; R53.83 Other fatigue; N39.0 Urinary tract infection, site not specified; Z13.89 Encounter for screening for other disorder
CPT/HCPCS: 36415; 80053; 80061; 84443; 85025; 86803; 87086; 87088; 87186

== ENCOUNTER → 2019-02-17 09:20 | Outpatient (CLI) | payer MEDICARE, SELFPAY ==
[2019-02-17 18:36] LABS: Absolute Lymphocyte Count 2.55 X10^3/uL (0.83-4.51); Absolute Neutrophil Count 5.1 X10^3/uL (2.0-7.7); Basophil# 0.05 X10^3/uL; Basophil% 0.6 % (0-1); Eosinophil# 0.18 X10^3/uL; Eosinophils% 2.1 % (0-5); Hematocrit 46.4 % (37-47); Hemoglobin 14.7 g/dL (12.0-15.0); Lymphocyte # 2.55 X10^3/ul (4.0); Lymphocyte % 29.2 % (19-41); Mean Corp Hgb Conc 31.7 g/dL (32-36); Mean Corpuscular Hgb 29.5 pg (27.0-32.0); Mean Platelet Vol. 9.4 fl (6.2-12.0); Monocyte# 0.76 X10^3/uL; Monocyte% 8.7 % (0-10); NRBC Flagged by Analyzer 0 % (0-5); Neutrophil # 5.11 X10^3/uL (2.7-7.7); Neutrophil % 58.6 % (47-70); Platelet Count 314 K/mm3 (150-450); RBC Distribution Width CV 13.7 % (11.6-14.6); RBC Distribution Width SD 46.7 fl (35.1-43.9); Red Blood Count 4.99 M/mm3 (4.2-5.4); White Blood Count 8.7 K/mm3 (4.4-11.0)
[2019-02-17 19:06] LABS: ALB/GLOB Ratio 0.9 RATIO (0.9-2.4); AST(SGOT) 20 U/L (15-37); Alanine Aminotransfer ALT/SGPT 19 U/L (13-56); Albumin, Serum 3.4 g/dL (3.2-5.0); Alkaline Phosphatase 112 U/L (45-117); Anion Gap 7 (5-15); BUN 23 mg/dL (7-18); BUN/Creat Ratio 23.5 RATIO (10-20); Calcium,Total 8.9 mg/dL (8.5-10.1); Chloride 109 mmol/L (98-107); Cholesterol 193 mg/dL (200); Creatinine, Serum 0.98 mg/dL (0.55-1.02); EST Glomerular Filtration Rate 60 mL/min (>60); Est Glom Filt Rate - Afr Amer 72 mL/min (>60); Globulin 3.9 g/dL (2.2-4.2); Glucose 91 mg/dL (74-106); High Density Lipoprotein 38 mg/dL; Protein, Total 7.3 g/dL (6.4-8.2); Sodium Level 141 mmol/L (136-145); Thyroid Stim Hormone (TSH) 3.45 uIU/mL (0.358-3.74); Triglycerides 249 mg/dL; Very Low Density Lipoprotein 50 mg/dL (5-40)
[2019-02-17 20:54] LABS: Hemoglobin A1c 5.6 % (4.2-6.3)
== END ==
PROVIDERS: Family Provider Family Medicine; PCP Family Medicine
DX: R53.82 Chronic fatigue, unspecified (principal); E66.9 Obesity, unspecified; R42 Dizziness and giddiness
CPT/HCPCS: 36415; 80053; 80061; 83036; 84443; 85025

== ENCOUNTER → 2019-04-06 | Outpatient (CLI) | payer MEDICARE, SELFPAY ==
[2017-10-13 02:07] VITALS: BMI 35.1
--- NOTE | 2019-04-06 12:29 | BI_ITS ---
MAMMOGRAPHY - BILATERAL SCREENING REASON FOR EXAM: Female, 68 years old. Routine annual screening examination. PERTINENT HISTORY: Non-contributory. TECHNIQUE: Digital bilateral breast arnulfo (3D mammographic acquisition) in the CC and MLO projections. 2-D mediolateral oblique (MLO) and craniocaudad (CC) views of both breasts were obtained. CAD: Full Field Digital Mammography with Computer Added Detection was performed. COMPARISON: Comparison is made with prior study dated November 26, 2010. FINDINGS: Breast Composition: There are scattered areas of fibroglandular density. There are no dominant masses or suspicious calcifications. Stable small benign-appearing bilateral axillary lymph. No other significant abnormalities are identified. There has been no significant change since the prior study. BI/SCREEN MAMM (CAD) W/ARNULFO BILAT IMPRESSION: Stable bilateral screening mammogram. Yearly follow-up mammogram recommended. (A) ASSESSMENT CATEGORY: BIRADS Category 2: Benign. A letter regarding these results will be sent to the patient by the facility within 30 days. Approximately 10% of breast cancers are not detected by mammography. A normal mammogram should not delay biopsy of a clinically suspicious abnormality. [id number] Electronically Signed: Paul Jay, at 13:48 EDT , Service support ,
--- NOTE | 2019-04-06 12:32 | BD_ITS ---
STUDY: DUAL ENERGY X-RAY ABSORPTIOMETRY / DXA REASON FOR EXAM: Female, 68 years old. The patient is postmenopausal. Loss of height. TECHNIQUE: Bone Mineral Density (BMD) measurements of lumbar spine and bilateral hips were obtained. COMPARISON: Comparison is made with prior study dated November 27, 2010. FINDINGS: Lumbar Spine (L1-L4): g/cm2 (1.052) / T-score (-0.9) / Z-score (0.7) Findings are suggestive of normal bone density with a low fracture risk. Left Femur Total: g/cm2 (0.925) / T-score (-0.7) / Z-score (0.8) Left Femoral Neck: g/cm2 (0.769) / T-score (-1.9) / Z-score (-0.2) Right Femur Total: g/cm2 (0.957) / T-score (-0.4) / Z-score (1.1) Right Femoral Neck: g/cm2 (0.797) / T-score (-1.7) / Z-score (0.0) The T-Scores on the most recent prior examination were: Lumbar Spine (L1-L4): There has been worsening of bone density since the previous examination. Left Femur Total: which represents a worsening of 11.7%. Right Femur Total: which represents a worsening of 3%. BD/Dexa Bone Density Study IMPRESSION: The patient is considered osteopenic as outlined below according to World [place] Organization (WHO) criteria with a moderate fracture risk. There has been worsening of bone density since the previous examination. Reference Information: The T-score is the number of standard deviations above or below the standard which is normal for young adults at their peak bone mineral density. The World Health Organization (WHO) interprets the T-scores as follows: Above -1 Normal bone density Between -1 and -2.5 Osteopenia Equal to / or below -2.5 Osteoporosis As a practical clinical guideline, osteopenia may be graded as follows: Mild -1 through -1.5 Moderate -1.6 through -2.0 Severe -2.1 through -2.4 The Z-score is the number of standard deviations above or below age-matched controls. A Z-score of less than -1.5 would be considered abnormal. References: 1. NIH Osteoporosis and Related Bone Diseases http://www.osteo.org 2. International Society for Clinical Densitometry http://www.iscd.org 3. National Osteoporosis Foundation http://www.nof.org Electronically Signed: Paul Jay, at 15:37 EDT , Service support ,
== END | disposition home or self-care (01) ==
LOC: OPBD 12:26
PROVIDERS: Family Provider Family Medicine Geriatric Medicine; PCP Family Medicine Geriatric Medicine; Referring Provider Family Medicine Geriatric Medicine; Visit Provider Family Medicine Geriatric Medicine
DX: Z78.0 Asymptomatic menopausal state (principal); Z12.31 Encounter for screening mammogram for malignant neoplasm of breast
CPT/HCPCS: 77063; 77067; 77080

== ENCOUNTER → 2019-06-29 14:47 | Outpatient (CLI) | payer MEDICARE, SELFPAY ==
[2017-10-13 02:07] VITALS: BMI 35.1
[2019-06-29 16:59] LABS: Absolute Neutrophil Count 4.2 X10^3/uL (2.0-7.7); Basophil# 0.04 X10^3/uL; Basophil% 0.5 % (0-1); Eosinophil# 0.24 X10^3/uL; Eosinophils% 3.1 % (0-5); Hematocrit 44.9 % (37-47); Hemoglobin 14.3 g/dL (12.0-15.0); Lymphocyte % 31.5 % (19-41); Mean Corp Hgb Conc 31.8 g/dL (32-36); Mean Corpuscular Hgb 28.9 pg (27.0-32.0); Mean Corpuscular Volume 90.9 fL (81-99); Mean Platelet Vol. 10.2 fl (6.2-12.0); Monocyte% 9.2 % (0-10); NRBC Flagged by Analyzer 0 % (0-5); Neutrophil # 4.23 X10^3/uL (2.7-7.7); Neutrophil % 55.4 % (47-70); Platelet Count 282 K/mm3 (150-450); RBC Distribution Width CV 13.9 % (11.6-14.6); RBC Distribution Width SD 46.4 fl (35.1-43.9); Red Blood Count 4.94 M/mm3 (4.2-5.4); White Blood Count 7.6 K/mm3 (4.4-11.0)
[2019-06-29 17:05] LABS: Vitamin D,25 Hydroxy 25.8 ng/mL (29.95-100.01)
[2019-06-29 17:10] LABS: ALB/GLOB Ratio 0.9 RATIO (0.9-2.4); AST(SGOT) 19 U/L (15-37); Alanine Aminotransfer ALT/SGPT 25 U/L (13-56); Albumin, Serum 3.6 g/dL (3.2-5.0); Alkaline Phosphatase 117 U/L (45-117); Anion Gap 5 (5-15); BUN 26 mg/dL (7-18); Calcium,Total 8.8 mg/dL (8.5-10.1); Chloride 109 mmol/L (98-107); Cholesterol 179 mg/dL (200); Creatinine, Serum 0.96 mg/dL (0.55-1.02); EST Glomerular Filtration Rate 61 mL/min (>60); Est Glom Filt Rate - Afr Amer 74 mL/min (>60); Globulin 3.9 g/dL (2.2-4.2); Glucose 93 mg/dL (74-106); High Density Lipoprotein 41 mg/dL; Potassium 4.6 mmol/L (3.5-5.1); Protein, Total 7.5 g/dL (6.4-8.2); Sodium Level 142 mmol/L (136-145); Thyroid Stim Hormone (TSH) 0.84 uIU/mL (0.358-3.74); Triglycerides 181 mg/dL; Very Low Density Lipoprotein 36 mg/dL (5-40)
== END ==
PROVIDERS: Family Provider Family Medicine Geriatric Medicine; PCP Family Medicine Geriatric Medicine; Visit Provider Family Medicine Geriatric Medicine
DX: E55.9 Vitamin D deficiency, unspecified (principal); E78.5 Hyperlipidemia, unspecified; R53.83 Other fatigue
CPT/HCPCS: 36415; 80053; 80061; 82306; 84443; 85025

== ENCOUNTER 2019-12-21 20:30 | Inpatient (IN) | payer MEDICARE, SELFPAY ==
[2019-12-21 20:31] VITALS: BP 182/100; PULSE 82; RESP 18; TEMP 36.6; O2SAT 96; BMI 32.8
--- NOTE | 2019-12-21 21:25 | US_ITS ---
HISTORY: RT SIDE PAIN TECHNIQUE: Thornton scale and color doppler imaging was performed of the pancreas, liver, and gallbladder. COMPARISON: CT scan of the abdomen and pelvis from October 12, 2017 FINDINGS: # of images incl. paperwork: 162 Liver is normal in size and appearance. Many tiny gallstones are present within the gallbladder lumen No gallbladder wall thickening or biliary dilatation. Gallbladder wall measures 3 mm. On several of the images of the gallbladder wall there is some comet tail artifact suggestive of cholesterolosis to the gallbladder wall which. Common bile duct measures 5 mm. Tenderness upon insonation the gallbladder. Visualized pancreas is normal in appearance. Right kidney is normal in size and appearance. Visualized abdominal aorta has normal caliber. IVC is patent. Hepatopedal flow is present within the central portal vein. US/Gallbladder IMPRESSION: Cholelithiasis. Possible cholesterolosis or adenomyomatosis of the gallbladder wall. . Cholelithiasis with tenderness upon insonation of the gallbladder are suggestive of acute cholecystitis at 2225 Reported and signed by: Sher Anthony MD Electronically Signed: Sher Anthony MD at 22:24 EDT Tel , Service support ,
--- NOTE | 2019-12-21 21:26 | ED.VIS.GI ---
History of Present Illness Chief Complaint: Complaint Informant: Patient - Abdominal Pain/Flank Pain Onset: Hours - 1.5 Context: Sudden Onset Timing: Continuous, Waxes and wanes Quality: Aching Location: RUQ - no rad Current Severity: Severe Maximum Severity: Severe Worsened by: Nothing Relieved by: Nothing - Nausea/Vomiting/Emesis GI Symptom: Nausea, Vomiting Quality: Nonbilious. Negative for: Blood streaks, Coffee ground, Hematemesis Severity: Moderate - Diarrhea/Melena/Hematochezia GI Symptom: Negative for: Diarrhea, Melena, Hematochezia Associated Symptoms: Negative for: Dysuria, Frequency, Hematuria, Urgency Narrative: Ate burritos about 2 hours prior to the onset of pain. States she has had this once before, unknown etiology, only abdominal surgery was appendectomy. Does not radiate into her back. No urinary symptoms. [place] fine prior to the onset of pain. - Past Medical History (1) Depression Status: Chronic (2) Fibromyalgia Status: Chronic (3) History of kidney stones Status: Chronic Past Medical History - Allergies and Home Meds Allergies/Adverse Reactions: Allergies No Known Allergies Allergy (Verified 12/21/19 20:45) Primary Care Physician: Ed Bowman Chi, MD [Primary Care Provider] - Surgical History: appendectomy, tonsillectomy, - - Lithotripsy for kidney stones. Lives: Spouse/ Significant Other Smoking Status: Never smoker - Family History Maternal Family History: Reports: No pertinent history Paternal Family History: Reports: No pertinent history Review of Systems General: Denies: Chills, Fever, Sweats Eyes: Denies: Visual changes - bilaterally, Diplopia ENT: Denies: Bilateral ear pain, Rhinorrhea, Sore throat Cardiovascular: Denies: Chest pain, Palpitations Respiratory: Denies: Dyspnea, Cough, Dyspnea on exertion Gastrointestinal: Reports: Abdominal pain, Nausea, Vomiting. Denies: Diarrhea, Melena, Hematochezia Genitourinary: Denies: Dysuria, Hematuria, Frequency Musculoskeletal: Denies: Back pain, Swelling, Extremity Pain Skin: Denies: Rash, Wounds Neurological: Denies: Headache, Weakness, Numbness Psych: Reports: Anxiety Physical Exam Vital Signs/Narrative: Vital Signs Temp Pulse Resp BP Pulse Ox 12/21/19 20:31 97.8 F 82 18 182/100 H 96 Inital Vital Signs reviewed: Yes General: Well nourished, Well developed, Obese, Acute Distress - Painful Head: Normocephalic, Atraumatic Eyes: Perrl, EOMI ENT: Moist mucous membranes, No rhinorrhea Neck: Supple, Nontender Cardiovascular: Regular rate, Regular rhythm, No murmurs Respiratory: No distress, CTA bilaterally, Chest nontender Abdomen: Soft, Nondistended, Normal bowel sounds, Tender - Right upper quadrant only, Guarding, Ceils's sign. Negative for: Rebound tenderness, Pulsatile mass Back: Nontender, Normal Inspection. Negative for: CVA tenderness Extremities: Nontender, No edema Skin: Normal color, No rash Neurological: Alert, Oriented x3, Cranial nerves II-XII grossly intact, Normal Strength, Normal Sensation, Normal Gait Psychological: Normal Mood, - - Anxious Diagnostic/Tx/Re-eval Impressions Gallbladder Ultrasound 12/21/19 21:25 IMPRESSION: Cholelithiasis. Possible cholesterolosis or adenomyomatosis of the gallbladder wall. . Cholelithiasis with tenderness upon insonation of the gallbladder are suggestive of acute cholecystitis at 2225 Reported and signed by: Sher Anthony MD Electronically Signed: Sher Anthony MD at 22:24 EDT Tel , Service support , 12/21/19 21:25 Gallbladder [US] Stat Laboratory Results 12/21/19 12/21/19 20:45 20:45 WBC 10.2 RBC 4.91 Hgb 14.6 Hct 44.7 MCV 91.0 MCH 29.7 MCHC 32.7 RDW Std Deviation 44.4 H RDW Coeff of Larry 13.3 Plt Count 304 MPV 9.7 Immature Gran % (Auto) 0.500 Neut % (Auto) 52.4 Lymph % (Auto) 35.3 [place] % (Auto) 9.8 Eos % (Auto) 1.5 Baso % (Auto) 0.5 Absolute Neuts (auto) 5.4 Absolute Lymphs (auto) 3.61 Nucleated RBC % 0 Sodium 146 H Potassium 4.3 Chloride 109 H Carbon Dioxide 33.0 H Anion Gap 4 L BUN 23 H Creatinine 1.03 H Estim Creat Clear Calc 45.08 Est GFR (MDRD) Af Amer 68 Est GFR (MDRD) Non-Af 56 L BUN/Creatinine Ratio 22.3 H Glucose 103 Calcium 9.9 Total Bilirubin 0.30 AST 20 ALT 20 Alkaline Phosphatase 117 Total Protein 7.9 Albumin 3.8 Globulin 4.1 Albumin/Globulin Ratio 0.9 Lipase 117 - Medical Decision Making Ultrasound of the right upper quadrant obtained, consistent with acute calculus cholecystitis. Her labs show a borderline leukocytosis, with normal liver enzymes, no cholestasis. Initially treated with IV fluids, Zofran, Toradol, morphine, took the edge off the pain but she was still in discomfort and then given Dilaudid. Plan is to admit to medical surgical. Discussed with Dr. Ramos. Clinically stable. Zosyn given in ER. ED Disposition - Plan for ED Patient: Disposition: [facility] Diagnosis: Acute calculous cholecystitis Referrals: Ed Bowman Chi, MD [Primary Care Provider] -
[2019-12-21 21:36] LABS: Absolute Lymphocyte Count 3.61 X10^3/uL (0.83-4.51); Absolute Neutrophil Count 5.4 X10^3/uL (2.0-7.7); Basophil# 0.05 X10^3/uL; Basophil% 0.5 % (0-1); Eosinophil# 0.15 X10^3/uL; Eosinophils% 1.5 % (0-5); Hematocrit 44.7 % (37-47); Hemoglobin 14.6 g/dL (12.0-15.0); Lymphocyte # 3.61 X10^3/ul (4.0); Lymphocyte % 35.3 % (19-41); Mean Corp Hgb Conc 32.7 g/dL (32-36); Mean Corpuscular Hgb 29.7 pg (27.0-32.0); Mean Platelet Vol. 9.7 fl (6.2-12.0); Monocyte% 9.8 % (0-10); NRBC Flagged by Analyzer 0 % (0-5); Neutrophil # 5.36 X10^3/uL (2.7-7.7); Neutrophil % 52.4 % (47-70); Platelet Count 304 K/mm3 (150-450); RBC Distribution Width CV 13.3 % (11.6-14.6); RBC Distribution Width SD 44.4 fl (35.1-43.9); Red Blood Count 4.91 M/mm3 (4.2-5.4); White Blood Count 10.2 K/mm3 (4.4-11.0)
[2019-12-21] MEDS: 0.9% Normal Saline 1,000 ML 125 ML IV (21:36)
[2019-12-21] MEDS: Morphine 4 MG/ML Syringe IV (21:36)
[2019-12-21] MEDS: Ketorolac 30 MG/ML Syringe 15 MG IV (21:36)
[2019-12-21] MEDS: Ondansetron 4 MG/2 ML Vial IV (21:37)
[2019-12-21 21:48] LABS: ALB/GLOB Ratio 0.9 RATIO (0.9-2.4); AST(SGOT) 20 U/L (15-37); Alanine Aminotransfer ALT/SGPT 20 U/L (13-56); Albumin, Serum 3.8 g/dL (3.2-5.0); Alkaline Phosphatase 117 U/L (45-117); Anion Gap 4 (5-15); BUN 23 mg/dL (7-18); BUN/Creat Ratio 22.3 RATIO (10-20); Calcium,Total 9.9 mg/dL (8.5-10.1); Chloride 109 mmol/L (98-107); Creatinine, Serum 1.03 mg/dL (0.55-1.02); EST Glomerular Filtration Rate 56 mL/min (>60); Est Glom Filt Rate - Afr Amer 68 mL/min (>60); Estimated Creatinine Clearance 45.08 ml/min; Globulin 4.1 g/dL (2.2-4.2); Glucose 103 mg/dL (74-106); Lipase 117 U/L (73-393); Potassium 4.3 mmol/L (3.5-5.1); Protein, Total 7.9 g/dL (6.4-8.2); Sodium Level 146 mmol/L (136-145)
[2019-12-21] MEDS: HYDROmorphone 0.5 MG/0.5 ML SYRINGE IV (23:00)
[2019-12-21 23:01] VITALS: BP 157/86; PULSE 74; RESP 16; O2SAT 96
[2019-12-22] VITALS (14 sets, daily range): BP systolic 148–164; BP diastolic 78–100; PULSE 74–99; RESP 16–20; TEMP 36.4–37.2; O2SAT 92–99; BMI 32.8; BMI 31.3
--- NOTE | 2019-12-22 | GALL_PTH ---
PATIENT: BARBARA HERNANDEZ LOC: MS3 U#:[id number] AGE/SX: 69/F ROOM: NJ325 RE12/22/[address]: Dr. Darya Ramos MD : 1950 BED: 1 DIS: 12/23/2019 SPEC #: [id number] RECD: 12/22/19 15:01 STATUS: SARAHY REQ #: [id number] HIMANSHU: 12/22/19 00:[address]: Darya Ramos DEPT: SURGICAL PATHOLOGY RECD BY: Jose Luis ENTERED: 12/25/19 09:39 SP TYPE: JACKIE HOWARD DR: Dr. Ed Bwoman MD Tissues: Gallbladder, NOS Procedures: Surgery Specimen Level III HEADER OPERATION: Laparoscopic cholecystectomy PRE-OP DIAGNOSIS: Cholelithiasis, intractable pain TISSUE SUBMITTED: Gallbladder MICROSCOPIC DIAGNOSIS Gallbladder, cholecystectomy: Chronic cholecystitis and cholelithiasis. SJ:michael 6/16/20 MICROSCOPIC DESCRIPTION Slides are reviewed. GROSS DESCRIPTION Received is one container labeled with the patient's name and designated gallbladder. The specimen consists of a gallbladder measuring 9 x 4 x 3.5 cm. The external surface is smooth and glistening. Focally, it is granular, hemorrhagic and contains cautery artifact. The lumen of the gallbladder contains green mucoid bile and multiple chalky white calculi ranging in size from 0.5 to 0.9 cm. The mucosa is bile-stained and without any mass lesions. The gallbladder wall averages 0.2 cm in thickness and is free of mass lesions. Wrapper Caser sections of the gallbladder and the cystic duct at margin of resection are submitted in one cassette. / AM:michael 12/25/19 TC:3 CPT: 23590
[2019-12-22] MEDS: Lactated Ringers 1,000 ML 100 ML IV ×2 (02:36→11:09)
[2019-12-22] MEDS: Morphine 4 MG/ML Syringe IV ×2 (02:42→05:29)
[2019-12-22] MEDS: 0.9% Saline Lock 10 ML Syringe IV ×3 (02:42→08:35)
--- NOTE | 2019-12-22 03:35 | NURSING ---
PT REQUESTS THAT HER SPOUSE, TOM BE NOTIFIED THAT HE'S ABLE TO VISIT WITH HER PRIOR TO SURGERY. WOULD ALSO LIKE SURGERY TIME COMMUNICATED TO HIM. [phone]
--- NOTE | 2019-12-22 07:23 | PCM.HP.BLA ---
History and Physical Date of Admission: 12/22/19 Chief Complaint: abdominal pain History of Present Illness: 69 y/o WF presents with right upper quadrant abdominal pain. This was sudden onset, but patient feels she may have had similar though less severe type pain for the past month. States that it is primarily in the right upper quadrant and does not radiate. States that the patient is occasional sharp. Has had nausea/emesis last night. Denies fevers. Denies diarrhea, has occasional constipation with pain medications. Denies biliary obstructive signs such as jaundice, icterus. Past Medical History: fibromyalgia history of kidney stones Past Surgical History: hysterectomy tonsillectomy appendectomy lithotripsy for kidney stones Medications: takes vicodin up to 7.5 mg qday cymbalta neurontin Allergies: Has no known drug allergies Social history: TOB use denies Review of Systems: General - denies fevers, denies weight loss, denies anorexia Cardiovascular denies chest pain, denies history of heart attack Pulmonary denies shortness of breath, denies coughing up blood Gastrointestinal as per HPI, denies blood in stools Neurological denies seizures, denies history of stroke Genitourinary denies burning with urination, denies blood in urine Hematological denies spontaneous/prolonged bleeding Skin denies open non healing wounds Musculoskeletal has fibromyalgia, was recently told that one leg is shorter than the other and undergoing chiropractor treatments for this Endocrine denies temperature intolerance, denies hair/skin changes, denies history of radiation exposure, denies history of thyroiditis Psychological denies hallucinations Physical examination: Vital signs Temp 98.1F HR 102 BP 148/80 General WD/WN WF in no apparent distress, alert and oriented, not septic appearing HEENT Normocephalic. EOM intact with sclera clear and no icterus noted. Neck is supple with no jugular venous distention noted. Trachea is midline. Lungs normal breath sounds. No rales/rhonchi/wheezing noted. No labored breathing noted, such as retractions. No cough heard. Heart normal S1 and S2 auscultated. No rubs/clicks/murmurs noted. Normal size and location by auscultation. Abdomen soft but tender in the right upper quadrant, obese, difficult to determine if any masses or organomegaly due to body habitus. Extremities no pitting edema noted. . Genitourinary/Rectal deferred Skin no rashes noted. Normal skin integrity. Neurological non focal. Psychological normal affect, patient is calm and appropriate Labs - WBC 10.2K Hgb 14.6 Plt 304k, LFTs normal Impression: cholelithiasis intractable pain Discussion/Plan: I have discussed the above with the patient. I have offered the patient the procedure of laparoscopic cholecystectomy, possible cholangiograms. I have explained the procedure to the patient. I have counseled the patient as to the risks of the procedure, including but not limited to: infection, bleeding, injury to any blood vessels/nerves, scar tissue, injury to any intraabdominal organs, injury to kidney/ureters, injury to bowel/bladder, injury to the common bile duct/biliary tree, bile leakage, intraabdominal abscess/bleeding, hernias at incisional sites, wound infections, possible open procedure, complications of anesthesia, postoperative pneumonia/cardiac problems/blood clots etc. the patient understands. I have also told her that she may be at risk of getting COVID or having risks/complications with COVID due to intubation and surgical stress. She states that she is not worried, she doesn't believe in COVID and states that it was made over there and then sent here and that there are 7 states that don't even have it. She agrees to proceed. I have answered all questions to the patient?s satisfaction and the patient has no further questions.
--- NOTE | 2019-12-22 07:45 | EKGRS_ITS ---
Test Reason : PRE-OP Blood Pressure : / mmHG Vent. Rate : 058 BPM Atrial Rate : 058 BPM P-R Int : 168 ms QRS Dur : 084 ms QT Int : 472 ms P-R-T Axes : 047 -30 027 degrees QTc Int : 463 ms Sinus bradycardia Left axis deviation Abnormal ECG Confirmed by KIRAN CUENCA, MARGA ([id number]), sound editor TEZ TIRADO ([id number]) on 12/27/2019 1:15:09 PM Referred By: CRIS Confirmed By:MARGA BECK MD
[2019-12-22] MEDS: HYDROmorphone 0.5 MG/0.5 ML SYRINGE IV ×3 (08:34→21:20)
[2019-12-22] MEDS: Ondansetron 4 MG/2 ML Vial IV (08:34)
--- NOTE | 2019-12-22 12:06 | DCINST_ITS ---
Discharge Diet: No Restrictions - drink plenty of fluids avoid carbonated beverages for a couple of days as it would make you bloat and may cause more discomfort Discharge Activity: Return to Normal Activity, May not drive while taking narcotic pain medications. Lifting Restrictions: no lifting greater than 20 pounds for two weeks Additional Activity Instructions:: ambulation/walking is encouraged Call your doctor if your incision/area has: Continuous Slow Oozing, Foul Smelling Discharge Call your doctor if you observe: Fever of 101 or Higher Additional Dressing/Incision Instructions:: Leave dressings in place. May get wet in shower. Do not soak - no tub baths/swimming Allergies/Adverse Reactions: Allergies No Known Allergies Allergy (Verified 12/21/19 20:45) Medications to take at Discharge Duloxetine Hcl [Cymbalta] 60 mg PO BID 10/12/17 Gabapentin [Neurontin] 800 mg PO QHS 10/12/17 Hydrocodone/Acetaminophen [[place] 5-325 Tablet] 1 each PO Q6H PRN PRN 10/12/17 Hydrocodone/Acetaminophen [[place] 5-325 Tablet] 1 each PO Q8 PRN 5 Days #15 tablet 12/22/19 The following prescriptions were given: Hydrocodone/Acetaminophen [[place] 5-325 Tablet] 1 each PO Q8 PRN 5 Days #15 tablet PRN Reason: Pain Score 6-10/10 Transmission Status: Sent to [facility] Primary Care Physician: Ed Bowman Chi, MD [Primary Care Provider] - Test Results: Test results from this visit will be discussed in further detail at your follow- up appointment, if applicable. Please Follow Up With: Darya Ramos MD - call When: a virtual visit appointment will be set up for you
--- NOTE | 2019-12-22 12:09 | OP.PCM_ITS ---
Report of Operation Date of Procedure: 12/22/19 Pre-Operative Diagnosis: cholelithiasis, intractable abdominal pain Post-Operative Diagnosis: cholelithiasis, acute cholecystitis Surgery/Procedure Performed:: laparoscopic cholecystectomy Description of Surgical Findings:: thickened gallbladder wall with edema c/w acute cholecystitis exterminator helper termite: Leanne Crouch Type of Anesthesia:: General Anesthesiologist: Julia Wilson Specimen's removed: gallbladder and contents Estimated Blood Loss (mL): < 5 ml Fluids Replaced: 600 ml RL Description of Procedure: After informed consent was given, the patient was brought to the Operating Room. Appropriate time out protocol was followed. She was then placed in the supine position. The patient was then placed under general endotracheal anesthesia. The abdomen was then prepped with a sterile surgical skin preparation and sterile surgical drapes were placed. An area of skin superior to the umbilical dimple was grasped with penetrating clamps and the skin and subcutaneous tissues were infiltrated with 0.25% marcaine with epinephrine. A skin incision was then made with a 15 blade scalpel. The anterior abdominal wall was elevated and a Veress needle was carefully inserted into the intraabdominal cavity. It was checked to be in the proper position with a normal saline drop test. A CO2 pneumoperitoneum was then created. Once this was achieved, then the Veress needle was removed and an 11mm trocar was placed in its stead. A 10mm laparoscope was then inserted into the trocar and careful attention was directed to the intraabdominal contents. There was no evidence of injury to any intraabdominal organs from insertion of the Veress needle or the trocar. Under direct visualization, a 5mm subxiphoid trocar and two lateral 5mm right subcostal trocars were placed. The skin and subcutaneous tissues at these sites were infiltrated with 0.25% marcaine with epinephrine prior to placement of these trocars. Attention was then directed to the right upper quadrant of the abdomen. The gallbladder wall was thickened and edematous c/w acute cholecystitis. There was scant surrounding pericholecystic fluid. Graspers were placed in the lateral trocars to grasp the distal aspect of the gallbladder and direct it cephalad and to grasp the gallbladder at Pittman?s pouch and direct it laterally. Dissection then began on the proximal gallbladder continuing down to the area of the triangle of Calot to bluntly dissect out the cystic duct. The neck of the gallbladder was identified and blunt dissection continued to dissect out a segment of the cystic duct. A clip was then placed on the neck of the gallbladder. Two clips were placed proximal and the cystic duct was then transected. The cystic artery was visualized and bluntly isolated and then two clips were placed proximally and one clip distally and then it was transected between the proximal and distal clips. The gallbladder was then from the liver bed using electrocautery. The gallbladder wall was edematous. The gallbladder was placed in an Endobag and thus able to be brought out of the daquan-umbilical port. It was then forwarded to pathology for analysis. The liver bed was carefully examined. There was no evidence of bile leakage or bleeding. The cystic duct stump and cystic artery stump had their clips intact and there was no evidence of bile leakage or bleeding. The remainder of the abdomen was grossly normal. The CO2 was released and all trocars removed intact. The periumbilical fascia was approximated with a [id number] 0 vicryl suture. All skin incision were closed with 4-0 monocryl in a subdermal fashion. Cavilol and Steristrips were used to reinforce the skin closure. Sterile dressings were applied to all wounds. The patient was extubated and brought to the Recovery Room in stable condition. - Complications none noted - Admit VTE Documentation VTE Present on Admission: Yes VTE Mechan Device Prophylaxis: SCD's
[2019-12-22] MEDS: Bupiv/Epi 0.25% 30 ML Vial (13:08)
--- NOTE | 2019-12-22 14:31 | CASEMGMT ---
RN CM NOTE: To room to complete RN CM Assessment. Pt not in room/is @ OR at this time. Juanito BSN RN CM
[2019-12-22] MEDS: HYDROcodone Bitartrate/Apap 5/325 Tablet PO (18:10)
[2019-12-23 00:15] VITALS: BP 147/89; PULSE 89; RESP 18; TEMP 36.7; O2SAT 93
[2019-12-23] MEDS: Lactated Ringers 1,000 ML 100 ML IV (00:33)
[2019-12-23] MEDS: HYDROmorphone 0.5 MG/0.5 ML SYRINGE IV ×3 (00:33→08:50)
[2019-12-23 03:17] VITALS: BMI 32.8
[2019-12-23] MEDS: HYDROcodone Bitartrate/Apap 5/325 Tablet PO (03:43)
[2019-12-23 03:46] VITALS: BP 143/73; PULSE 81; RESP 18; TEMP 36.9; O2SAT 92
[2019-12-23 06:01] VITALS: BMI 32.8
[2019-12-23 08:41] VITALS: BP 161/81; PULSE 83; RESP 18; TEMP 37.1; O2SAT 95
--- NOTE | 2019-12-23 09:18 | CASEMGMT ---
RN CM attempted CM assessment, patient discharged prior to RN CM seeing patient. Patient's PCP is [facility]. Patient to follow-up with surgeon. Patient lives with . No needs anticipated.
== END 2019-12-23 09:12 | disposition home or self-care (01) | DRG 419 ==
LOC: ED 22:53 → MS3 12-22 03:28
PROVIDERS: Admitting Provider Surgery; Emergency Provider Emergency Medicine; PCP Family Medicine Geriatric Medicine; Visit Provider Surgery
PROC: 0FT44ZZ Resection of Gallbladder, Percutaneous Endoscopic Approach (ICD-10-PCS; CPT 47610; principal; 2019-12-22 11:40)
DX: K80.00 Calculus of gallbladder with acute cholecystitis without obstruction (principal); M79.7 Fibromyalgia; K21.9 Gastro-esophageal reflux disease without esophagitis; F32.9 Major depressive disorder, single episode, unspecified; F41.9 Anxiety disorder, unspecified; Z79.899 Other long term (current) drug therapy
CPT/HCPCS: 76705; 80053; 83690; 85025; 87635; 88304; 93005; 99285; G2023; J7050; J7120; A4216; J2310; J2405; U0003

== ENCOUNTER → 2019-12-27 09:00 | Outpatient (CLI) | payer MEDICARE, SELFPAY ==
[2019-12-22 10:52] VITALS: BMI 31.3
--- NOTE | 2019-12-27 09:17 | RAD_ITS ---
STUDY: X-RAY - ABDOMEN/PELVIS REASON FOR EXAM: Female, 69 years old. Cholecystectomy 12-22-19 -- pain, swelling TECHNIQUE: AP supine and upright views of the abdomen and pelvis. COMPARISON: None. FINDINGS: Normal visualized lung bases. There is an abundance of fecal material throughout the colon. There is no demonstrated free abdominal air. The visualized liver, spleen and kidneys are grossly normal in size and morphology. There are calcified phleboliths in the pelvis. There are degenerative changes of the visualized lumbar spine. RAD/Abd Inc Decub and/or Erect IMPRESSION: Large amount of fecal material is seen in the colon. Electronically Signed: Paul Jay, at 9:49 EDT , Service support ,
[2019-12-27 12:42] LABS: Absolute Lymphocyte Count 2.37 X10^3/uL (0.83-4.51); Absolute Neutrophil Count 5.5 X10^3/uL (2.0-7.7); Basophil# 0.04 X10^3/uL; Basophil% 0.5 % (0-1); Eosinophil# 0.14 X10^3/uL; Eosinophils% 1.6 % (0-5); Hematocrit 45.4 % (37-47); Hemoglobin 14.7 g/dL (12.0-15.0); Lymphocyte # 2.37 X10^3/ul (4.0); Lymphocyte % 26.8 % (19-41); Mean Corp Hgb Conc 32.4 g/dL (32-36); Mean Corpuscular Hgb 29.9 pg (27.0-32.0); Mean Corpuscular Volume 92.5 fL (81-99); Mean Platelet Vol. 9.9 fl (6.2-12.0); Monocyte# 0.73 X10^3/uL; Monocyte% 8.2 % (0-10); NRBC Flagged by Analyzer 0 % (0-5); Neutrophil # 5.52 X10^3/uL (2.7-7.7); Neutrophil % 62.3 % (47-70); Platelet Count 335 K/mm3 (150-450); RBC Distribution Width CV 13.6 % (11.6-14.6); RBC Distribution Width SD 46.1 fl (35.1-43.9); Red Blood Count 4.91 M/mm3 (4.2-5.4); White Blood Count 8.9 K/mm3 (4.4-11.0)
[2019-12-27 12:49] LABS: ALB/GLOB Ratio 0.9 RATIO (0.9-2.4); AST(SGOT) 27 U/L (15-37); Alanine Aminotransfer ALT/SGPT 29 U/L (13-56); Albumin, Serum 3.7 g/dL (3.2-5.0); Alkaline Phosphatase 96 U/L (45-117); Anion Gap 8 (5-15); BUN 19 mg/dL (7-18); BUN/Creat Ratio 21.3 RATIO (10-20); Calcium,Total 9.8 mg/dL (8.5-10.1); Chloride 105 mmol/L (98-107); Creatinine, Serum 0.89 mg/dL (0.55-1.02); EST Glomerular Filtration Rate 66 mL/min (>60); Est Glom Filt Rate - Afr Amer 80 mL/min (>60); Globulin 4.1 g/dL (2.2-4.2); Glucose 126 mg/dL (74-106); Potassium 4.7 mmol/L (3.5-5.1); Protein, Total 7.8 g/dL (6.4-8.2); Sodium Level 140 mmol/L (136-145)
== END ==
PROVIDERS: PCP Family Medicine Geriatric Medicine; Referring Provider Family Medicine Geriatric Medicine; Visit Provider Family Medicine Geriatric Medicine
DX: R10.9 Unspecified abdominal pain (principal); R39.0 Extravasation of urine
CPT/HCPCS: 36415; 74019; 80053; 85025; 87077; 87086; 87088; 87186

== ENCOUNTER → 2020-01-30 12:09 | Outpatient (CLI) | payer MEDICARE, SELFPAY ==
[2019-12-22 10:52] VITALS: BMI 31.3
[2020-01-30 12:41] LABS: Absolute Lymphocyte Count 3.09 X10^3/uL (0.83-4.51); Absolute Neutrophil Count 4.2 X10^3/uL (2.0-7.7); Basophil# 0.04 X10^3/uL; Basophil% 0.5 % (0-1); Eosinophil# 0.19 X10^3/uL; Eosinophils% 2.2 % (0-5); Hematocrit 41.1 % (37-47); Hemoglobin 13.3 g/dL (12.0-15.0); Lymphocyte # 3.09 X10^3/ul (4.0); Lymphocyte % 36.3 % (19-41); Mean Corp Hgb Conc 32.4 g/dL (32-36); Mean Corpuscular Hgb 29.7 pg (27.0-32.0); Mean Corpuscular Volume 91.7 fL (81-99); Mean Platelet Vol. 9.3 fl (6.2-12.0); Monocyte# 0.89 X10^3/uL; Monocyte% 10.5 % (0-10); NRBC Flagged by Analyzer 0 % (0-5); Neutrophil # 4.23 X10^3/uL (2.7-7.7); Neutrophil % 49.7 % (47-70); Platelet Count 262 K/mm3 (150-450); RBC Distribution Width CV 13.3 % (11.6-14.6); RBC Distribution Width SD 45.1 fl (35.1-43.9); Red Blood Count 4.48 M/mm3 (4.2-5.4); White Blood Count 8.5 K/mm3 (4.4-11.0)
[2020-01-30 13:01] LABS: ALB/GLOB Ratio 0.9 RATIO (0.9-2.4); AST(SGOT) 23 U/L (15-37); Alanine Aminotransfer ALT/SGPT 26 U/L (13-56); Albumin, Serum 3.2 g/dL (3.2-5.0); Alkaline Phosphatase 104 U/L (45-117); Amylase 56 U/L (25-115); Anion Gap 3 (5-15); BUN 28 mg/dL (7-18); BUN/Creat Ratio 32.6 RATIO (10-20); Chloride 106 mmol/L (98-107); Creatinine, Serum 0.86 mg/dL (0.55-1.02); EST Glomerular Filtration Rate 69 mL/min (>60); Est Glom Filt Rate - Afr Amer 84 mL/min (>60); Globulin 3.4 g/dL (2.2-4.2); Glucose 89 mg/dL (74-106); Lipase 152 U/L (73-393); Potassium 4.6 mmol/L (3.5-5.1); Protein, Total 6.6 g/dL (6.4-8.2); Sodium Level 139 mmol/L (136-145)
== END ==
PROVIDERS: PCP Family Medicine Geriatric Medicine; Visit Provider Family Medicine Geriatric Medicine
DX: R10.9 Unspecified abdominal pain (principal)
CPT/HCPCS: 36415; 80053; 82150; 83690; 85025

== ENCOUNTER → 2020-01-30 14:00 | Outpatient (CLI) | payer MEDICARE, SELFPAY ==
[2019-12-22 10:52] VITALS: BMI 31.3
--- NOTE | 2020-01-30 14:06 | CT_ITS ---
STUDY: CT ABDOMEN AND PELVIS WITH CONTRAST REASON FOR EXAM: Female, 69 years old. DIFFUSE ABD PAIN, HYSTERECTOMY RADIATION DOSAGE (If Supplied By Facility): CTDIvol = ( 19.24 ) mGy, DLP = ( 1250.67 ) mGycm TECHNIQUE: Transaxial images were obtained from the dome of the diaphragm to the symphysis pubis without oral contrast. Oral and amp; IV Gastrografin and amp; 100mL Isovue-300 was administered. Sagittal and coronal images were reconstructed. Individualized dose optimization techniques were used for this CT. COMPARISON: 2011 FINDINGS: The visualized lung bases are unremarkable. The visualized portions of the heart are within normal limits. Normal liver. There is non-visualization of the gallbladder, which may be secondary to either contraction or a prior cholecystectomy. Normal spleen. Normal pancreas. Normal bilateral adrenal glands. Normal right kidney. Normal left kidney. Normal visualized stomach. Normal small intestine. Retained stool noted throughout the colon. There is non-visualization of the appendix. Normal abdominal aorta. Normal inferior vena cava. Normal retroperitoneum. Normal urinary bladder. Normal abdominal wall. There are diffuse degenerative changes of the visualized lumbar spine, and pelvis. CT/Abdomen/Pelvis WITH Contrast IMPRESSION: No suspicious solid organ abnormality Retained stool noted throughout the colon. No free intraperitoneal fluid, air, or suspicious adenopathy Electronically Signed: Logan Valladares MD at 15:39 EDT , Service support ,
== END ==
LOC: CT 14:04
PROVIDERS: PCP Family Medicine Geriatric Medicine; Referring Provider Family Medicine Geriatric Medicine; Visit Provider Family Medicine Geriatric Medicine
DX: R10.9 Unspecified abdominal pain (principal)
CPT/HCPCS: 36415; 74177; 80053; 82150; 83690; 85025; Q9967

== ENCOUNTER → 2020-02-05 10:28 | Outpatient (CLI) | payer MEDICARE, SELFPAY ==
[2019-12-22 10:52] VITALS: BMI 31.3
--- NOTE | 2020-02-05 10:45 | RAD_ITS ---
STUDY: X-RAY - ABDOMEN/PELVIS REASON FOR EXAM: Female, 69 years old. FECAL IMPACTION OF COLON. PATIENT HAD GB REMOVED 1 1/2 MONTHS AGO AND BEEN ON PAIN MEDS AND IS NOW MAKING HER CONSTIPATED. TECHNIQUE: AP supine and upright views of the abdomen and pelvis. COMPARISON: Prior study of 12-27-19 FINDINGS: Normal visualized lung bases. There is a moderate amount of air in the stomach. Air fluid levels are seen in several nondistended loops of small bowel in the right upper quadrant of the abdomen. There is an average amount of colonic stool. There is no demonstrated free abdominal air. The visualized liver, spleen and kidneys are grossly normal in size and morphology. Normal soft tissue structures. Normal visualized osseous structures. RAD/Abd Inc Decub and/or Erect IMPRESSION: Air fluid levels noted in several nondistended loops of small bowel in the right upper quadrant of the abdomen. This finding is abnormal but nonspecific and may air swallowing, focal ileus, or early or incomplete small bowel obstruction.. There is an average amount of colonic stool. Electronically Signed: Goyo Matos MD at 19:19 EDT , Service support ,
[2020-02-05 12:17] LABS: Absolute Lymphocyte Count 3.69 X10^3/uL (0.83-4.51); Absolute Neutrophil Count 8.1 X10^3/uL (2.0-7.7); Basophil# 0.07 X10^3/uL; Basophil% 0.5 % (0-1); Eosinophil# 0.17 X10^3/uL; Eosinophils% 1.3 % (0-5); Hematocrit 47.8 % (37-47); Hemoglobin 15.4 g/dL (12.0-15.0); Lymphocyte # 3.69 X10^3/ul (4.0); Lymphocyte % 27.7 % (19-41); Mean Corp Hgb Conc 32.2 g/dL (32-36); Mean Corpuscular Volume 93.2 fL (81-99); Mean Platelet Vol. 9.6 fl (6.2-12.0); Monocyte# 1.23 X10^3/uL; Monocyte% 9.2 % (0-10); NRBC Flagged by Analyzer 0 % (0-5); Neutrophil # 8.07 X10^3/uL (2.7-7.7); Neutrophil % 60.6 % (47-70); Platelet Count 353 K/mm3 (150-450); RBC Distribution Width CV 14.2 % (11.6-14.6); RBC Distribution Width SD 47.9 fl (35.1-43.9); Red Blood Count 5.13 M/mm3 (4.2-5.4); White Blood Count 13.3 K/mm3 (4.4-11.0)
[2020-02-05 12:53] LABS: Vitamin D,25 Hydroxy 49.7 ng/mL
[2020-02-05 13:05] LABS: ALB/GLOB Ratio 0.9 RATIO (0.9-2.4); AST(SGOT) 22 U/L (15-37); Alanine Aminotransfer ALT/SGPT 25 U/L (13-56); Albumin, Serum 3.8 g/dL (3.2-5.0); Alkaline Phosphatase 119 U/L (45-117); Anion Gap 6 (5-15); BUN 20 mg/dL (7-18); BUN/Creat Ratio 13.4 RATIO (10-20); Calcium,Total 9.3 mg/dL (8.5-10.1); Chloride 107 mmol/L (98-107); Cholesterol 245 mg/dL (200); Creatinine, Serum 1.49 mg/dL (0.55-1.02); EST Glomerular Filtration Rate 37 mL/min (>60); Est Glom Filt Rate - Afr Amer 44 mL/min (>60); Globulin 4.3 g/dL (2.2-4.2); Glucose 128 mg/dL (74-106); High Density Lipoprotein 46 mg/dL; Potassium 3.8 mmol/L (3.5-5.1); Protein, Total 8.1 g/dL (6.4-8.2); Sodium Level 140 mmol/L (136-145); Thyroid Stim Hormone (TSH) 6.62 uIU/mL (0.358-3.74); Triglycerides 218 mg/dL; Very Low Density Lipoprotein 44 mg/dL (5-40)
== END ==
LOC: POLAB3 10:28 → RAD 10:44
PROVIDERS: PCP Family Medicine Geriatric Medicine; Referring Provider Family Medicine Geriatric Medicine; Visit Provider Family Medicine Geriatric Medicine
DX: E55.9 Vitamin D deficiency, unspecified (principal); E78.5 Hyperlipidemia, unspecified; K56.41 Fecal impaction; R53.83 Other fatigue
CPT/HCPCS: 36415; 74019; 80053; 80061; 82306; 84443; 85025

== ENCOUNTER → 2020-03-20 11:37 | Outpatient (CLI) | payer MEDICARE, SELFPAY ==
[2019-12-22 10:52] VITALS: BMI 31.3
[2020-03-20 13:10] LABS: Thyroid Stim Hormone (TSH) 2.63 uIU/mL (0.358-3.74)
== END ==
LOC: POLAB3 11:38
PROVIDERS: PCP Family Medicine Geriatric Medicine; Visit Provider Family Medicine Geriatric Medicine
DX: E03.9 Hypothyroidism, unspecified (principal)
CPT/HCPCS: 36415; 84443

== ENCOUNTER → 2020-04-17 14:46 | Outpatient (CLI) | payer MEDICARE, SELFPAY ==
[2019-12-22 10:52] VITALS: BMI 31.3
[2020-04-17 17:17] LABS: Albumin, Serum 3.7 g/dL (3.2-5.0); BUN 22 mg/dL (7-18); Calcium,Total 9.1 mg/dL (8.5-10.1); Chloride 104 mmol/L (98-107); Creatinine, Serum 1.05 mg/dL (0.55-1.02); EST Glomerular Filtration Rate 55 mL/min (>60); Est Glom Filt Rate - Afr Amer 66 mL/min (>60); Glucose 87 mg/dL (74-106); Phosphorus 3.5 mg/dL (2.5-4.9); Potassium 4.1 mmol/L (3.5-5.1); Sodium Level 141 mmol/L (136-145)
== END ==
LOC: POLAB3 14:46
PROVIDERS: Internal Medicine Nephrology; PCP Family Medicine Geriatric Medicine; Visit Provider Family Medicine Geriatric Medicine
DX: N17.9 Acute kidney failure, unspecified (principal)
CPT/HCPCS: 36415; 80069

== ENCOUNTER → 2020-05-06 10:58 | Outpatient (CLI) | payer MEDICARE, SELFPAY ==
[2019-12-22 10:52] VITALS: BMI 31.3
[2020-05-06 12:33] LABS: Absolute Lymphocyte Count 2.98 X10^3/uL (0.83-4.51); Absolute Neutrophil Count 4.1 X10^3/uL (2.0-7.7); Basophil# 0.05 X10^3/uL; Basophil% 0.6 % (0-1); Eosinophil# 0.23 X10^3/uL; Eosinophils% 2.9 % (0-5); Hematocrit 46.6 % (37-47); Hemoglobin 14.7 g/dL (12.0-15.0); Lymphocyte # 2.98 X10^3/ul (4.0); Lymphocyte % 37.4 % (19-41); Mean Corp Hgb Conc 31.5 g/dL (32-36); Mean Corpuscular Hgb 28.7 pg (27.0-32.0); Mean Corpuscular Volume 90.8 fL (81-99); Mean Platelet Vol. 9.8 fl (6.2-12.0); Monocyte# 0.62 X10^3/uL; Monocyte% 7.8 % (0-10); NRBC Flagged by Analyzer 0 % (0-5); Neutrophil # 4.07 X10^3/uL (2.7-7.7); Platelet Count 329 K/mm3 (150-450); RBC Distribution Width CV 13.4 % (11.6-14.6); RBC Distribution Width SD 45.5 fl (35.1-43.9); Red Blood Count 5.13 M/mm3 (4.2-5.4)
[2020-05-06 13:24] LABS: ALB/GLOB Ratio 0.9 RATIO (0.9-2.4); AST(SGOT) 21 U/L (15-37); Alanine Aminotransfer ALT/SGPT 21 U/L (13-56); Albumin, Serum 3.6 g/dL (3.2-5.0); Alkaline Phosphatase 111 U/L (45-117); Anion Gap 8 (5-15); BUN 16 mg/dL (7-18); BUN/Creat Ratio 13.9 RATIO (10-20); Calcium,Total 9.4 mg/dL (8.5-10.1); Chloride 107 mmol/L (98-107); Cholesterol 184 mg/dL (200); Creatinine, Serum 1.15 mg/dL (0.55-1.02); EST Glomerular Filtration Rate 49 mL/min (>60); Est Glom Filt Rate - Afr Amer 60 mL/min (>60); Glucose 143 mg/dL (74-106); High Density Lipoprotein 42 mg/dL; Potassium 3.5 mmol/L (3.5-5.1); Protein, Total 7.6 g/dL (6.4-8.2); Sodium Level 144 mmol/L (136-145); Thyroid Stim Hormone (TSH) 1.02 uIU/mL (0.358-3.74); Triglycerides 256 mg/dL; Very Low Density Lipoprotein 51 mg/dL (5-40)
[2020-05-06 17:38] LABS: Vitamin D,25 Hydroxy 28.2 ng/mL
== END ==
LOC: POLAB3 10:58
PROVIDERS: PCP Family Medicine Geriatric Medicine; Visit Provider Family Medicine Geriatric Medicine
DX: E55.9 Vitamin D deficiency, unspecified (principal); E78.5 Hyperlipidemia, unspecified; R53.83 Other fatigue
CPT/HCPCS: 36415; 80053; 80061; 82306; 84443; 85025

== ENCOUNTER → 2020-06-21 18:20 | Outpatient (CLI) | payer MEDICARE, SELFPAY ==
[2019-12-22 10:52] VITALS: BMI 31.3
== END ==
PROVIDERS: PCP Family Medicine Geriatric Medicine; Referring Provider Family Medicine Geriatric Medicine; Visit Provider Family Medicine Geriatric Medicine
DX: R06.89 Other abnormalities of breathing (principal)
CPT/HCPCS: 87633; 87635; C9803; U0003

== ENCOUNTER → 2020-10-24 15:10 | Outpatient (CLI) | payer MEDICARE, SELFPAY ==
[2019-12-22 10:52] VITALS: BMI 31.3
--- NOTE | 2020-10-24 15:20 | RAD_ITS ---
STUDY: X-RAY - SACRUM/COCCYX REASON FOR EXAM: Female, 70 years old. SACROCOCCYGEAL DISORDERS,NOT ELSEWHERE CLASSIFIED TECHNIQUE: 3 view(s) of the sacrum and coccyx were obtained. COMPARISON: None. FINDINGS: There is degenerative arthrosis of the bilateral sacroiliac joints. Normal visualized sacral ala and fused sacral bodies. Normal sacrococcygeal junction with a normal angulation. Normal coccygeal segments. The presacral soft tissue structures are unremarkable. Calcified phleboliths are seen in the pelvis. RAD/Sacrum-Coccyx min 2 Views IMPRESSION: Mild degenerative changes of the sacroiliac joints. Electronically Signed: Paul Jay MD at 15:31 EDT , Service support ,
== END ==
PROVIDERS: PCP Family Medicine Geriatric Medicine; Referring Provider Family Medicine Geriatric Medicine; Visit Provider Family Medicine Geriatric Medicine
DX: M53.3 Sacrococcygeal disorders, not elsewhere classified (principal)
CPT/HCPCS: 72220

== ENCOUNTER → 2020-11-04 11:14 | Outpatient (CLI) | payer MEDICARE, SELFPAY ==
[2019-12-22 10:52] VITALS: BMI 31.3
[2020-11-04 12:28] LABS: Absolute Lymphocyte Count 2.96 X10^3/uL (0.83-4.51); Absolute Neutrophil Count 7.6 X10^3/uL (2.0-7.7); Basophil# 0.08 X10^3/uL; Basophil% 0.7 % (0-1); Eosinophil# 0.11 X10^3/uL; Eosinophils% 0.9 % (0-5); Hematocrit 47.9 % (37-47); Hemoglobin 15.3 g/dL (12.0-15.0); Lymphocyte # 2.96 X10^3/ul (0.83-4.51); Lymphocyte % 24.9 % (19-41); Mean Corp Hgb Conc 31.9 g/dL (32-36); Mean Corpuscular Hgb 29.1 pg (27.0-32.0); Mean Corpuscular Volume 91.2 fL (81-99); Mean Platelet Vol. 9.8 fl (6.2-12.0); Monocyte# 0.98 X10^3/uL; Monocyte% 8.2 % (0-10); NRBC Flagged by Analyzer 0 % (0-5); Neutrophil # 7.61 X10^3/uL (2.7-7.7); Platelet Count 324 K/mm3 (150-450); RBC Distribution Width CV 13.8 % (11.6-14.6); RBC Distribution Width SD 46.4 fl (35.1-43.9); Red Blood Count 5.25 M/mm3 (4.2-5.4); White Blood Count 11.9 K/mm3 (4.4-11.0)
[2020-11-04 12:49] LABS: Vitamin D,25 Hydroxy 30.9 ng/mL
[2020-11-04 13:04] LABS: ALB/GLOB Ratio 0.9 RATIO (0.9-2.4); AST(SGOT) 12 U/L (15-37); Alanine Aminotransfer ALT/SGPT 27 U/L (13-56); Albumin, Serum 3.7 g/dL (3.2-5.0); Alkaline Phosphatase 114 U/L (45-117); Anion Gap 8 (5-15); BUN 26 mg/dL (7-18); BUN/Creat Ratio 25.7 RATIO (10-20); Calcium,Total 9.5 mg/dL (8.5-10.1); Chloride 107 mmol/L (98-107); Creatinine, Serum 1.01 mg/dL (0.55-1.02); EST Glomerular Filtration Rate 57 mL/min (>60); Est Glom Filt Rate - Afr Amer 69 mL/min (>60); Globulin 4.1 g/dL (2.2-4.2); Glucose 111 mg/dL (74-106); Potassium 3.8 mmol/L (3.5-5.1); Protein, Total 7.8 g/dL (6.4-8.2); Sodium Level 140 mmol/L (136-145); Thyroid Stim Hormone (TSH) 3.86 uIU/mL (0.358-3.74)
== END ==
PROVIDERS: PCP Family Medicine Geriatric Medicine; Visit Provider Family Medicine Geriatric Medicine
DX: E55.9 Vitamin D deficiency, unspecified (principal); R53.83 Other fatigue
CPT/HCPCS: 36415; 80053; 82306; 84443; 85025

== ENCOUNTER → 2020-12-03 15:25 | Outpatient (CLI) | payer MEDICARE, SELFPAY ==
[2019-12-22 10:52] VITALS: BMI 31.3
[2020-12-03 17:39] LABS: Absolute Lymphocyte Count 2.41 X10^3/uL (0.83-4.51); Basophil# 0.05 X10^3/uL; Basophil% 0.6 % (0-1); Eosinophil# 0.09 X10^3/uL; Eosinophils% 1.1 % (0-5); Hematocrit 46.5 % (37-47); Lymphocyte # 2.41 X10^3/ul (0.83-4.51); Lymphocyte % 29.5 % (19-41); Mean Corp Hgb Conc 32.3 g/dL (32-36); Mean Corpuscular Hgb 29.2 pg (27.0-32.0); Mean Corpuscular Volume 90.5 fL (81-99); Mean Platelet Vol. 9.6 fl (6.2-12.0); Monocyte% 7.3 % (0-10); NRBC Flagged by Analyzer 0 % (0-5); Neutrophil # 4.98 X10^3/uL (2.7-7.7); Neutrophil % 60.9 % (47-70); Platelet Count 275 K/mm3 (150-450); RBC Distribution Width CV 13.5 % (11.6-14.6); RBC Distribution Width SD 45.1 fl (35.1-43.9); Red Blood Count 5.14 M/mm3 (4.2-5.4); White Blood Count 8.2 K/mm3 (4.4-11.0)
[2020-12-03 18:20] LABS: ALB/GLOB Ratio 0.9 RATIO (0.9-2.4); AST(SGOT) 24 U/L (15-37); Alanine Aminotransfer ALT/SGPT 31 U/L (13-56); Albumin, Serum 3.6 g/dL (3.2-5.0); Alkaline Phosphatase 114 U/L (45-117); Anion Gap 7 (5-15); BUN 20 mg/dL (7-18); CRP, High Sensitivity Cardiac 2.24 mg/L; Calcium,Total 8.9 mg/dL (8.5-10.1); Chloride 111 mmol/L (98-107); Cholesterol 183 mg/dL (200); Creatinine, Serum 0.84 mg/dL (0.55-1.02); EST Glomerular Filtration Rate 71 mL/min (>60); Est Glom Filt Rate - Afr Amer 86 mL/min (>60); Globulin 3.8 g/dL (2.2-4.2); Glucose 143 mg/dL (74-106); High Density Lipoprotein 44 mg/dL; Potassium 3.9 mmol/L (3.5-5.1); Protein, Total 7.4 g/dL (6.4-8.2); Sodium Level 143 mmol/L (136-145); Thyroid Stim Hormone (TSH) 0.22 uIU/mL (0.358-3.74); Triglycerides 203 mg/dL; Very Low Density Lipoprotein 41 mg/dL (5-40)
[2020-12-03 18:35] LABS: Hemoglobin A1c 5.4 % (3.8-5.6)
== END ==
PROVIDERS: PCP Family Medicine Geriatric Medicine; Referring Provider Nurse Practitioner Family; Visit Provider Nurse Practitioner Family
DX: R53.82 Chronic fatigue, unspecified (principal); M62.81 Muscle weakness (generalized); E66.9 Obesity, unspecified
CPT/HCPCS: 36415; 80053; 80061; 83036; 84443; 85025; 86141

== ENCOUNTER → 2020-12-18 13:09 | Outpatient (CLI) | payer MEDICARE, SELFPAY ==
[2019-12-22 10:52] VITALS: BMI 31.3
[2020-12-18 17:38] LABS: Thyroid Stim Hormone (TSH) 0.35 uIU/mL (0.358-3.74)
== END ==
PROVIDERS: PCP Family Medicine Geriatric Medicine; Visit Provider Family Medicine Geriatric Medicine
DX: E03.9 Hypothyroidism, unspecified (principal)
CPT/HCPCS: 36415; 84443

== ENCOUNTER → 2021-02-05 09:43 | Outpatient (CLI) | payer MEDICARE, SELFPAY ==
[2019-12-22 10:52] VITALS: BMI 31.3
[2021-02-05 12:07] LABS: Absolute Neutrophil Count 9.4 X10^3/uL (2.0-7.7); Basophil# 0.03 X10^3/uL; Basophil% 0.2 % (0-1); Eosinophil# 0.12 X10^3/uL; Eosinophils% 0.9 % (0-5); Hematocrit 44.5 % (37-47); Lymphocyte % 18.6 % (19-41); Mean Corp Hgb Conc 33.7 g/dL (32-36); Mean Corpuscular Hgb 29.9 pg (27.0-32.0); Mean Corpuscular Volume 88.6 fL (81-99); Mean Platelet Vol. 9.6 fl (6.2-12.0); Monocyte# 0.93 X10^3/uL; Monocyte% 7.2 % (0-10); NRBC Flagged by Analyzer 0 % (0-5); Neutrophil % 72.7 % (47-70); Platelet Count 294 K/mm3 (150-450); RBC Distribution Width CV 13.8 % (11.6-14.6); RBC Distribution Width SD 44.5 fl (35.1-43.9); Red Blood Count 5.02 M/mm3 (4.2-5.4); White Blood Count 12.9 K/mm3 (4.4-11.0)
[2021-02-05 12:37] LABS: Vitamin D,25 Hydroxy 34.2 ng/mL
[2021-02-05 12:56] LABS: AST(SGOT) 24 U/L (15-37); Alanine Aminotransfer ALT/SGPT 29 U/L (13-56); Albumin, Serum 3.6 g/dL (3.2-5.0); Alkaline Phosphatase 91 U/L (45-117); Anion Gap 8 (5-15); BUN 23 mg/dL (7-18); BUN/Creat Ratio 25.4 RATIO (10-20); Chloride 107 mmol/L (98-107); Creatinine, Serum 0.91 mg/dL (0.55-1.02); EST Glomerular Filtration Rate 65 mL/min (>60); Est Glom Filt Rate - Afr Amer 78 mL/min (>60); Globulin 3.7 g/dL (2.2-4.2); Glucose 119 mg/dL (74-106); Potassium 3.8 mmol/L (3.5-5.1); Protein, Total 7.3 g/dL (6.4-8.2); Sodium Level 139 mmol/L (136-145)
== END ==
PROVIDERS: PCP Family Medicine Geriatric Medicine; Referring Provider Family Medicine Geriatric Medicine; Visit Provider Family Medicine Geriatric Medicine
DX: E55.9 Vitamin D deficiency, unspecified (principal); R53.83 Other fatigue
CPT/HCPCS: 36415; 80053; 82306; 84443; 85025

== ENCOUNTER 2021-02-21 11:49 | Emergency (ER) | payer MEDICARE, SELFPAY ==
[2019-12-22 10:52] VITALS: BMI 31.3
[2021-02-21 11:50] VITALS: BP 127/102; PULSE 86; RESP 18; TEMP 36.7; O2SAT 97; BMI 32.9
--- NOTE | 2021-02-21 12:23 | EDS_ITS ---
HPI History of Present Illness Chief Complaint: Laceration Informant: patient Occured/Mechanism Comment: Cut with a juke box servicer Onset/Context/Timing Onset: Days (2) Context: Sudden Onset Timing: Continuous Location: Left index finger Worsened by: Nothing Relieved by: Elevation Associated Symptoms Associated Symptoms: Positive for Parasthesia; Negative for Weakness Narrative Narrative: Patient presents with laceration to her left index finger that occurred 2 days ago. Patient cut her finger using a juke box servicer. Patient had a Steri-Strip applied to the finger. Patient was also given a splint at that time. Patient presents requesting sutures to her laceration. Patient does admit to some tingling distal to the laceration. Patient denies any weakness. Patient denies any discharge or drainage. Patient admits to some mild redness. PFSH PFSH Home Medications duloxetine 60 mg PO BID 10/12/17 [History Last Taken 12/20/19 19:00 30] gabapentin 800 mg PO QHS 10/12/17 [History Last Taken 12/20/19 19:00] hydrocodone-acetaminophen [[place]] 1 ea PO Q6H PRN PRN 10/12/17 [History Last Taken Unknown] cephalexin 500 mg PO Q6 #40 capsule 02/21/21 [Rx Last Taken Unknown] Allergy/AdvReac Type Severity Reaction Status Date / Time No Known Allergies Allergy Verified 02/21/21 11:53 Surgical History History of cholecystectomy Social History Smoking Status: Never smoker ROS ROS ED Constitutional Constitutional ED: Denies chills or fever(s) Eyes Eyes: Denies blurry vision or change in vision ENT ENT ED: Denies rhinorrhea or sore throat Cardiovascular Cardiovascular: Denies chest pain or palpitations Respiratory/Chest Respiratory/Chest: Denies cough or dyspnea Gastrointestinal Gastrointestinal: Denies nausea or vomiting Genitourinary Genitourinary ED: Denies dysuria or hematuria Musculoskeletal Musculoskeletal: Denies back pain or neck pain Integumentary Denies abscess or rash Neurologic Neurologic: Denies headache(s) or weakness Allergic/Immunologic Allergic/Immunologic ED: Denies mouth swelling or urticaria EXAM Physical Exam Const Vital Signs: 02/21/21 11:50 Temperature 98.1 F Temperature Source Temporal Pulse Rate 86 Respiratory Rate 18 Blood Pressure 127/102 H Blood Pressure Mean 110 Pulse Ox 97 Oxygen Delivery Method Room Air Positive well nourished and well developed General Appearance ED: well developed HEENT Reports moist mucous membranes Neck full ROM Neuro oriented x3, CN's II-XII intact bilaterally, no focal motor deficits and no sensory deficits noted Sensorium / Orientation: alert Psych mental status grossly normal Skin Skin Narrative: There is a 1 cm full-thickness linear laceration over the radial aspect of the PIP joint of the left index finger. Steri-Strip is in place. There is some mild erythema over the distal end of the laceration. There is no discharge or drainage. There is no fluctuance. Sensation was intact to light touch in all digits. Capillary refill was less than 2 seconds in all digits. There is full range of motion. MDM MDM MDM Narrative Medical decision making narrative: Patient was advised that her laceration is too old to be sutured. Patient was instructed to maintain a Steri-Strip until it falls off. Patient was instructed to use Neosporin ointment to the area. Patient was instructed to continue using her splint. Patient was given a dose of Keflex here and a prescription for Keflex. Patient was instructed to follow- up with her primary care physician in 5 to 7 days. Patient understood and was agreeable with the plan. All questions were answered. Discharge Plan Triage Chief Complaint: Laceration ED Provider: Neptali Dacosta Dx/Rx/DC Orders Clinical Impression: Laceration of left index finger Instructions: ED Laceration, Old: Not Sutured Prescriptions: New cephalexin [cephalexin] 500 MG capsule 500 mg PO Q6 Qty: 40 RF: 0 No Action hydrocodone-acetaminophen [[place]] 1 EACH tablet 1 ea PO Q6H PRN PRN (Reason: Pain) RF: 0 gabapentin 400 MG capsule 800 mg PO QHS RF: 0 duloxetine 20 MG capsule 60 mg PO BID RF: 0 Primary Care Provider: Ed Bowman Chi Referrals: Ed Bowman Chi, MD [Primary Care Provider] - 5-7 Days Disposition Disposition: Home, Self Care Discharge Date/Time: 02/21/21 12:54
[2021-02-21] MEDS: Cephalexin 500 MG Capsule PO (12:45)
[2021-02-21 12:53] VITALS: PULSE 82; RESP 15; O2SAT 99
== END 2021-02-21 12:54 | disposition home or self-care (01) ==
PROVIDERS: Emergency Provider Emergency Medicine; PCP Family Medicine Geriatric Medicine
DX: S61.211A Laceration without foreign body of left index finger without damage to nail, initial encounter (principal); W27.8XXA Contact with other nonpowered hand tool, initial encounter; Y93.9 Activity, unspecified; Y92.9 Unspecified place or not applicable; Y99.9 Unspecified external cause status; R20.2 Paresthesia of skin
CPT/HCPCS: 99283

== ENCOUNTER → 2021-05-08 10:42 | Outpatient (CLI) | payer MEDICARE, SELFPAY ==
[2021-05-08 11:31] LABS: Absolute Lymphocyte Count 2.97 X10^3/uL (0.83-4.51); Absolute Neutrophil Count 5.6 X10^3/uL (2.0-7.7); Basophil# 0.06 X10^3/uL; Basophil% 0.6 % (0-1); Eosinophil# 0.14 X10^3/uL; Eosinophils% 1.4 % (0-5); Hematocrit 44.2 % (37-47); Hemoglobin 14.3 g/dL (12.0-15.0); Lymphocyte # 2.97 X10^3/ul (0.83-4.51); Lymphocyte % 30.3 % (19-41); Mean Corp Hgb Conc 32.4 g/dL (32-36); Mean Corpuscular Hgb 29.7 pg (27.0-32.0); Mean Corpuscular Volume 91.7 fL (81-99); Mean Platelet Vol. 9.4 fl (6.2-12.0); Monocyte# 0.92 X10^3/uL; Monocyte% 9.4 % (0-10); NRBC Flagged by Analyzer 0 % (0-5); Neutrophil # 5.62 X10^3/uL (2.7-7.7); Neutrophil % 57.5 % (47-70); Platelet Count 297 K/mm3 (150-450); RBC Distribution Width CV 13.5 % (11.6-14.6); RBC Distribution Width SD 46.1 fl (35.1-43.9); Red Blood Count 4.82 M/mm3 (4.2-5.4); White Blood Count 9.8 K/mm3 (4.4-11.0)
[2021-05-08 11:58] LABS: ALB/GLOB Ratio 0.9 RATIO (0.9-2.4); AST(SGOT) 21 U/L (15-37); Alanine Aminotransfer ALT/SGPT 28 U/L (13-56); Albumin, Serum 3.4 g/dL (3.2-5.0); Alkaline Phosphatase 119 U/L (45-117); Anion Gap 5 (5-15); BUN 22 mg/dL (7-18); BUN/Creat Ratio 21.4 RATIO (10-20); Calcium,Total 9.6 mg/dL (8.5-10.1); Chloride 106 mmol/L (98-107); Creatinine, Serum 1.03 mg/dL (0.55-1.02); EST Glomerular Filtration Rate 56 mL/min (>60); Est Glom Filt Rate - Afr Amer 68 mL/min (>60); Globulin 3.9 g/dL (2.2-4.2); Glucose 108 mg/dL (74-106); Potassium 4.7 mmol/L (3.5-5.1); Protein, Total 7.3 g/dL (6.4-8.2); Sodium Level 141 mmol/L (136-145); Thyroid Stim Hormone (TSH) 1.47 uIU/mL (0.358-3.74)
== END ==
PROVIDERS: PCP Family Medicine Geriatric Medicine; Visit Provider Family Medicine Geriatric Medicine
DX: E55.9 Vitamin D deficiency, unspecified (principal); R53.83 Other fatigue
CPT/HCPCS: 36415; 80053; 82306; 84443; 85025

== ENCOUNTER 2021-08-11 11:32 | Outpatient (CLI) | payer MEDICARE, SELFPAY ==
[2021-08-11 12:24] LABS: Absolute Lymphocyte Count 3.13 X10^3/uL (0.83-4.51); Absolute Neutrophil Count 6.8 X10^3/uL (2.0-7.7); Basophil# 0.08 X10^3/uL; Basophil% 0.7 % (0-1); Eosinophil# 0.14 X10^3/uL; Eosinophils% 1.2 % (0-5); Hematocrit 46.7 % (37-47); Lymphocyte # 3.13 X10^3/ul (0.83-4.51); Lymphocyte % 27.7 % (19-41); Mean Corp Hgb Conc 32.1 g/dL (32-36); Mean Corpuscular Hgb 29.1 pg (27.0-32.0); Mean Corpuscular Volume 90.5 fL (81-99); Monocyte# 1.02 X10^3/uL; NRBC Flagged by Analyzer 0 % (0-5); Neutrophil # 6.83 X10^3/uL (2.7-7.7); Neutrophil % 60.6 % (47-70); Platelet Count 295 K/mm3 (150-450); RBC Distribution Width CV 13.5 % (11.6-14.6); RBC Distribution Width SD 45.3 fl (35.1-43.9); Red Blood Count 5.16 M/mm3 (4.2-5.4); White Blood Count 11.3 K/mm3 (4.4-11.0)
[2021-08-11 12:59] LABS: ALB/GLOB Ratio 0.8 RATIO (0.9-2.4); AST(SGOT) 24 U/L (15-37); Alanine Aminotransfer ALT/SGPT 26 U/L (13-56); Albumin, Serum 3.6 g/dL (3.2-5.0); Alkaline Phosphatase 113 U/L (45-117); Anion Gap 3 (5-15); BUN 19 mg/dL (7-18); BUN/Creat Ratio 17.9 RATIO (10-20); Chloride 109 mmol/L (98-107); Creatinine, Serum 1.06 mg/dL (0.55-1.02); EST Glomerular Filtration Rate 54 mL/min (>60); Est Glom Filt Rate - Afr Amer 65 mL/min (>60); Globulin 4.6 g/dL (2.2-4.2); Glucose 105 mg/dL (74-106); Potassium 4.4 mmol/L (3.5-5.1); Protein, Total 8.2 g/dL (6.4-8.2); Sodium Level 140 mmol/L (136-145); Thyroid Stim Hormone (TSH) 2.21 uIU/mL (0.358-3.74)
[2021-08-11 13:00] LABS: Vitamin D,25 Hydroxy 29.6 ng/mL
== END 2021-08-11 23:59 | disposition short-term general hospital (02) ==
LOC: POLAB3 11:33
PROVIDERS: PCP Family Medicine Geriatric Medicine; Visit Provider Family Medicine Geriatric Medicine
DX: E55.9 Vitamin D deficiency, unspecified (principal); R53.83 Other fatigue
CPT/HCPCS: 36415; 80053; 82306; 84443; 85025

== ENCOUNTER 2021-09-02 10:33 | Outpatient (CLI) | payer MEDICARE, SELFPAY | END 2021-09-02 23:59 | disposition home or self-care (01) | PROVIDERS: PCP Family Medicine Geriatric Medicine; Referring Provider Family Medicine Geriatric Medicine; Visit Provider Family Medicine Geriatric Medicine | DX: R68.83 Chills (without fever) (principal) | CPT/HCPCS: 87635; 87804; 87807; C9803; U0003; U0005 ==

== ENCOUNTER → 2021-11-12 | Outpatient (CLI) | payer MEDICARE, SELFPAY ==
--- NOTE | 2021-11-12 12:29 | CT_ITS ---
STUDY: CT BRAIN WITHOUT CONTRAST REASON FOR EXAM: Female, 71 years old. UNSPECIFIED INJURY OF HEAD RADIATION DOSAGE (If Supplied By Facility): CTDIvol = ( 44.99 ) mGy, DLP = ( 779.24 ) mGycm TECHNIQUE: Transaxial CT imaging of the brain was performed without administration of intravenous contrast material. Individualized dose optimization techniques were used for this CT. COMPARISON: No relevant priors. FINDINGS: Normal soft tissue structures. Normal calvarium. There is mild cerebral atrophy with widening of the extra-axial spaces and ventricular dilatation. There are areas of decreased attenuation within the white matter tracts of the supratentorial brain, consistent with microvascular disease changes. Normal basal ganglia and thalami. Normal brainstem. Normal cerebellum. There is no intracranial hemorrhage. There are no findings of an acute ischemic infarction. Atherosclerotic calcified plaques of the vertebral arteries and cavernous portions of the internal carotid arteries bilaterally. Normal visualized paranasal sinuses. CT/Brain/Head without Contrast IMPRESSION: Chronic involutional changes of the brain. Electronically Signed: Paul Jay MD at 12:55 EDT ,
--- NOTE | 2021-11-12 12:35 | RAD_ITS ---
STUDY: X-RAY - SACRUM/COCCYX REASON FOR EXAM: Female, 71 years old. SACROCOCCYGEAL DISORDERS TECHNIQUE: 3 view(s) of the sacrum and coccyx were obtained. COMPARISON: None. FINDINGS: Normal bilateral sacroiliac joints. Normal visualized sacral ala and fused sacral bodies. Normal sacrococcygeal junction with a normal angulation. Normal coccygeal segments. The presacral soft tissue structures are unremarkable. RAD/Sacrum-Coccyx min 2 Views IMPRESSION: Normal x-rays of the sacrum and coccyx. Electronically Signed: Nils Castro MD at 2:05 EDT ,
== END | disposition home or self-care (01) ==
LOC: CT 12:26
PROVIDERS: PCP Family Medicine Geriatric Medicine; Visit Provider Family Medicine Geriatric Medicine
DX: M53.3 Sacrococcygeal disorders, not elsewhere classified (principal); S09.90XA Unspecified injury of head, initial encounter; E55.9 Vitamin D deficiency, unspecified; R53.83 Other fatigue
CPT/HCPCS: 36415; 70450; 72220; 80053; 82306; 84443; 85025

== ENCOUNTER → 2021-11-12 | Outpatient (CLI) | payer MEDICARE, SELFPAY ==
[2021-11-12 12:48] LABS: Absolute Lymphocyte Count 2.27 X10^3/uL (0.83-4.51); Absolute Neutrophil Count 6.9 X10^3/uL (2.0-7.7); Basophil# 0.05 X10^3/uL; Basophil% 0.5 % (0-1); Eosinophil# 0.17 X10^3/uL; Eosinophils% 1.6 % (0-5); Hematocrit 45.3 % (37-47); Hemoglobin 14.9 g/dL (12.0-15.0); Lymphocyte # 2.27 X10^3/ul (0.83-4.51); Lymphocyte % 21.8 % (19-41); Mean Corp Hgb Conc 32.9 g/dL (32-36); Mean Corpuscular Hgb 29.4 pg (27.0-32.0); Mean Corpuscular Volume 89.3 fL (81-99); Mean Platelet Vol. 9.7 fl (6.2-12.0); Monocyte# 0.88 X10^3/uL; Monocyte% 8.5 % (0-10); NRBC Flagged by Analyzer 0 % (0-5); Neutrophil # 6.94 X10^3/uL (2.7-7.7); Neutrophil % 66.6 % (47-70); Platelet Count 322 K/mm3 (150-450); RBC Distribution Width CV 13.8 % (11.6-14.6); Red Blood Count 5.07 M/mm3 (4.2-5.4); White Blood Count 10.4 K/mm3 (4.4-11.0)
[2021-11-12 13:21] LABS: ALB/GLOB Ratio 0.8 RATIO (0.9-2.4); AST(SGOT) 23 U/L (15-37); Alanine Aminotransfer ALT/SGPT 26 U/L (13-56); Albumin, Serum 3.3 g/dL (3.2-5.0); Alkaline Phosphatase 110 U/L (45-117); Anion Gap 6 (5-15); BUN 16 mg/dL (7-18); BUN/Creat Ratio 16.9 RATIO (10-20); Calcium,Total 9.1 mg/dL (8.5-10.1); Chloride 109 mmol/L (98-107); Creatinine, Serum 0.95 mg/dL (0.55-1.02); EST Glomerular Filtration Rate 61 mL/min (>60); Est Glom Filt Rate - Afr Amer 74 mL/min (>60); Globulin 4.4 g/dL (2.2-4.2); Glucose 107 mg/dL (74-106); Potassium 4.7 mmol/L (3.5-5.1); Protein, Total 7.7 g/dL (6.4-8.2); Sodium Level 142 mmol/L (136-145); Thyroid Stim Hormone (TSH) 1.05 uIU/mL (0.358-3.74)
== END | disposition home or self-care (01) ==
LOC: POLAB3 12:28
PROVIDERS: PCP Family Medicine Geriatric Medicine; Visit Provider Family Medicine Geriatric Medicine
DX: E55.9 Vitamin D deficiency, unspecified (principal); R53.83 Other fatigue
CPT/HCPCS: 36415; 80053; 82306; 84443; 85025

== ENCOUNTER → 2022-03-02 | Outpatient (CLI) | payer MEDICARE, SELFPAY ==
[2022-03-02 16:19] LABS: Absolute Lymphocyte Count 3.38 X10^3/uL (0.83-4.51); Absolute Neutrophil Count 6.4 X10^3/uL (2.0-7.7); Basophil# 0.04 X10^3/uL; Basophil% 0.4 % (0-1); Eosinophil# 0.13 X10^3/uL; Eosinophils% 1.2 % (0-5); Hematocrit 43.8 % (37-47); Hemoglobin 14.5 g/dL (12.0-15.0); Lymphocyte # 3.38 X10^3/ul (0.83-4.51); Lymphocyte % 31.1 % (19-41); Mean Corp Hgb Conc 33.1 g/dL (32-36); Mean Corpuscular Volume 90.5 fL (81-99); Mean Platelet Vol. 9.6 fl (6.2-12.0); Monocyte# 0.86 X10^3/uL; Monocyte% 7.9 % (0-10); NRBC Flagged by Analyzer 0 % (0-5); Neutrophil % 58.9 % (47-70); Platelet Count 287 K/mm3 (150-450); RBC Distribution Width CV 13.7 % (11.6-14.6); RBC Distribution Width SD 45.1 fl (35.1-43.9); Red Blood Count 4.84 M/mm3 (4.2-5.4); White Blood Count 10.9 K/mm3 (4.4-11.0)
[2022-03-02 16:42] LABS: Vitamin D,25 Hydroxy 18.7 ng/mL
[2022-03-02 16:52] LABS: ALB/GLOB Ratio 0.9 RATIO (0.9-2.4); AST(SGOT) 19 U/L (15-37); Alanine Aminotransfer ALT/SGPT 22 U/L (13-56); Albumin, Serum 3.5 g/dL (3.2-5.0); Alkaline Phosphatase 103 U/L (45-117); Anion Gap 6 (5-15); BUN 26 mg/dL (7-18); BUN/Creat Ratio 24.5 RATIO (10-20); Calcium,Total 8.6 mg/dL (8.5-10.1); Chloride 106 mmol/L (98-107); Creatinine, Serum 1.06 mg/dL (0.55-1.02); EST Glomerular Filtration Rate 54 mL/min (>60); Est Glom Filt Rate - Afr Amer 65 mL/min (>60); Globulin 3.8 g/dL (2.2-4.2); Glucose 99 mg/dL (74-106); Potassium 4.2 mmol/L (3.5-5.1); Protein, Total 7.3 g/dL (6.4-8.2); Sodium Level 142 mmol/L (136-145)
== END | disposition home or self-care (01) ==
LOC: POLAB3 10:14
PROVIDERS: PCP Family Medicine Geriatric Medicine; Referring Provider Family Medicine Geriatric Medicine; Visit Provider Family Medicine Geriatric Medicine
DX: R53.83 Other fatigue (principal); E55.9 Vitamin D deficiency, unspecified
CPT/HCPCS: 36415; 80053; 82306; 84443; 85025

== ENCOUNTER → 2022-03-31 | Outpatient (CLI) | payer MEDICARE, SELFPAY ==
--- NOTE | 2022-03-31 15:03 | RAD_ITS ---
INDICATION: PAIN IN ELBOW EXAMINATION/TECHNIQUE: X-RAY - RIGHT XR Elbow Min 3 Views COMPARISON: None. FINDINGS: SOFT TISSUES: No soft tissue swelling or gas. No radiopaque foreign body. BONES/JOINTS: There is no displacement of the anterior or posterior fat pads. No acute fracture or subluxation. Normal alignment. Preservation of the joint space. No sclerotic or destructive changes observed. RAD/Elbow min 3 Views IMPRESSION: No evidence of acute osseous abnormality is seen. Electronically Signed: Jose Luis Castrejon MD at 16:57 EDT ,
== END | disposition home or self-care (01) ==
LOC: RAD 15:02
PROVIDERS: PCP Family Medicine Geriatric Medicine; Referring Provider Family Medicine Geriatric Medicine; Visit Provider Family Medicine Geriatric Medicine
DX: M25.521 Pain in right elbow (principal)
CPT/HCPCS: 73080

== ENCOUNTER 2022-04-27 10:05 | Observation (INO) | payer MEDICARE, SELFPAY ==
[2022-04-27] VITALS (7 sets, daily range): BP systolic 129–155; BP diastolic 71–95; PULSE 68–107; RESP 12–17; TEMP 35.9–37.3; O2SAT 92–98; BMI 35.9; BMI 34.3
--- NOTE | 2022-04-27 10:14 | EKG12_ITS ---
Test Reason : SYNCOPE Blood Pressure : / mmHG Vent. Rate : 080 BPM Atrial Rate : 080 BPM P-R Int : 164 ms QRS Dur : 078 ms QT Int : 384 ms P-R-T Axes : 026 -23 040 degrees QTc Int : 442 ms Normal sinus rhythm Cannot rule out Anterior infarct , age undetermined Abnormal ECG Confirmed by KIRAN CUENCA, MARGA ([id number]), book or script editor TEZ TIRADO ([id number]) on 04/29/2022 6:36:20 AM Referred By: Confirmed By:MARGA BECK MD
--- NOTE | 2022-04-27 10:14 | CT_ITS ---
STUDY: CT BRAIN WITHOUT CONTRAST REASON FOR EXAM: Female, 71 years old. Fall, syncope RADIATION DOSAGE (If Supplied By Facility): CTDIvol = ( 44.99 ) mGy, DLP = ( 796.11 ) mGycm TECHNIQUE: Transaxial CT imaging of the brain was performed without administration of intravenous contrast material. Individualized dose optimization techniques were used for this CT. COMPARISON: Comparison is made with prior study dated 11/12/2021. FINDINGS: Normal soft tissue structures. There is hyperostosis frontalis internus. There is mild cerebral atrophy with widening of the extra-axial spaces and ventricular dilatation. There are areas of decreased attenuation within the white matter tracts of the supratentorial brain, consistent with microvascular disease changes. Stable small old lacunar infarct in the right base of Normal brainstem. Normal cerebellum. There is no intracranial hemorrhage. There are no findings of an acute ischemic infarction. Atherosclerotic calcification of the vertebral arteries and cavernous portions of the internal carotid arteries bilaterally. Normal visualized paranasal sinuses. CT/Brain/Head without Contrast IMPRESSION: Chronic involutional changes of the brain. Stable small old lacunar infarct of the right basal ganglia. Electronically Signed: Paul Jay MD at 10:57 EDT ,
--- NOTE | 2022-04-27 10:14 | CT_ITS ---
STUDY: CT CERVICAL SPINE WITHOUT CONTRAST REASON FOR EXAM: Female, 71 years old. Neck pain following a fall. RADIATION DOSAGE (If Supplied By Facility): CTDIvol = ( 23.43 ) mGy, DLP = ( 449.05 ) mGycm TECHNIQUE: High resolution transaxial imaging was performed without contrast material. Sagittal and coronal images were reconstructed. Individualized dose optimization techniques were used for this CT. COMPARISON: None FINDINGS: Normal craniovertebral junction. Normal anterior atlantoaxial articulation. Normal odontoid process. There is straightening of the normal cervical lordosis. Normal vertebral bodies and posterior osseous elements. C2-3: Normal endplates. Normal disc height and morphology. Normal central canal and intervertebral neuroforamina. C3-4: Normal endplates. Normal disc height and morphology. Normal central canal and intervertebral neuroforamina. C4-5: Normal endplates. Normal disc height and morphology. Normal central canal and intervertebral neuroforamina. C5-6: Moderate degree of disc space narrowing and spondylosis at the C5-C6 level. Uncovertebral arthrosis. Mild degree of bilateral neural foraminal stenosis. C6-7: Moderate degree of disc space narrowing. C7-T1: Normal endplates. Normal disc height and morphology. Normal central canal and intervertebral neuroforamina. Normal visualized soft tissue structures. CT/Spine Cervical without Contras IMPRESSION: Multilevel degenerative changes, as described above. Electronically Signed: Paul Jay MD at 10:58 EDT ,
--- NOTE | 2022-04-27 10:16 | EX.ED.DYSGE1 ---
HPI History of Present Illness Chief Complaint: Syncope Informant: patient Narrative Narrative: 71-year-old female presenting after syncopal episode. Patient states she was walking and then had a syncopal episode with no warning symptoms. She states since the fall she has felt dizzy. She denies dizziness, chest pain, shortness of breath prior to the syncopal episode. She complains of mild headache currently, no headache prior to the syncopal episode. Denies fever or recent illness. Prior similar symptoms: No Recent Illness/Hospitalization: No PFSH PFSH Medical History Anxiety Fibromyalgia Home Medications hydrocodone-acetaminophen 5-325mg 5mg-325mg ([place]) 1 ea PO Q6H PRN PRN Pain 10/12/17 [History Last Taken Unknown] Allergy/AdvReac Type Severity Reaction Status Date / Time No Known Allergies Allergy Verified 02/21/21 11:53 Surgical History History of cholecystectomy Social History Smoking Status: Never smoker ROS ROS ED Constitutional Constitutional ED: Denies fever(s) Eyes Eyes: Denies change in vision ENT ENT ED: Denies rhinorrhea or sore throat Cardiovascular Cardiovascular: Denies chest pain or palpitations Respiratory/Chest Respiratory/Chest: Denies cough or dyspnea Gastrointestinal Gastrointestinal: Denies abdominal pain, diarrhea, nausea or vomiting Genitourinary Genitourinary ED: Denies dysuria Musculoskeletal Musculoskeletal: Denies myalgias Integumentary Denies rash Neurologic Neurologic: Reports headache(s) and other Details: Generalized weakness Psychiatric Psychiatric: Denies suicidal thoughts EXAM Physical Exam Const Vital Signs: 04/27/22 10:06 04/27/22 10:11 Temperature 96.7 F L Temperature Source Temporal Pulse Rate 89 Respiratory Rate 16 Respiratory Effort Normal Respiratory Pattern Normal Blood Pressure 146/84 H Blood Pressure Mean 104 Pulse Ox 92 Oxygen Delivery Method Room Air Positive well nourished and well developed General Appearance ED: well developed HEENT Reports normocephalic and head/scalp atraumatic Eyes PERRL and EOMs intact bilaterally Neck supple Neck Narrative: Left paraspinal cervical muscle tenderness, no midline tenderness General: tenderness Chest Wall inspection of chest normal Resp normal respiratory effort and clear to auscultation bilaterally Cardio regular rate and regular rhythm GI non-tender and non-distended Palpation: soft; Negative for guarding or rebound tenderness present no CVA tenderness Back/Spine Cervical Spine: Negative for cervical spine tenderness Thoracic Spine / Upper Back: Negative for thoracic spinal tenderness Lumbar Spine / Lower Back: Negative for lumbar spinal tenderness Extremity normal to inspection Neuro oriented x3, CN's II-XII intact bilaterally and no sensory deficits noted Sensorium / Orientation: alert Sensory Exam: No sensory level loss detected Motor Exam: general weakness Psych mental status grossly normal Skin no rashes or lesions noted MDM MDM MDM Narrative Medical decision making narrative: EKG is sinus rhythm rate of 80 with no acute ischemic changes. CBC, chemistries unremarkable other than creatinine 1.17. Troponin is negative. Chest x-ray read by myself and radiology shows no acute process. CT head and cervical spine showed no acute process. Patient is able to ambulate on reevaluation. She continues to complain of generalized weakness. Discussed with hospitalist for observation. Lab Data Attestation: I reviewed the patient's lab results. Labs: Laboratory Results - last 24 hr 04/27/22 04/27/22 10:00 10:00 WBC 8.6 RBC 5.10 Hgb 15.6 H Hct 46.2 MCV 90.6 MCH 30.6 MCHC 33.8 RDW Std Deviation 47.1 H RDW Coeff of Larry 14.2 Plt Count 321 MPV 8.7 Immature Gran % (Auto) 0.800 Neut % (Auto) 58.2 Lymph % (Auto) 27.9 [place] % (Auto) 10.1 H Eos % (Auto) 2.4 Baso % (Auto) 0.6 Absolute Neuts (auto) 5.0 Absolute Lymphs (auto) 2.40 Nucleated RBC % 0 Sodium 141 Potassium 3.5 Chloride 104 Carbon Dioxide 30.0 Anion Gap 7 BUN 23 H Creatinine 1.17 H Estim Creat Clear Calc 38.53 Est GFR (MDRD) Af Amer 58 L Est GFR (MDRD) Non-Af 48 L BUN/Creatinine Ratio 19.7 Glucose 89 Calcium 9.4 Troponin I High Sens 3 Radiography Chest X-Ray - ED: 1 View, Read by ED Physician, Read by Radiologist and No Acute Disease Diagnostic Testing: Clinical Impression(s) from Imaging Studies Brain CT 04/27/22 10:14 IMPRESSION: Chronic involutional changes of the brain. Stable small old lacunar infarct of the right basal ganglia. Electronically Signed: Paul Jay MD at 10:57 EDT , Cervical Spine CT 04/27/22 10:14 IMPRESSION: Multilevel degenerative changes, as described above. Electronically Signed: Paul Jay MD at 10:58 EDT , Chest X-Ray 04/27/22 10:30 IMPRESSION: Hyperinflation. Stable mild linear scarring in the left mid lung. Electronically Signed: Paul Jay MD at 10:59 EDT , EKG Initial EKG: Attestation: I personally reviewed and interpreted this EKG as follows: Interpretation: Sinus Rhythm and No Acute Injury Pattern Discharge Plan Triage Chief Complaint: Syncope ED Provider: Elise Crawford Dx/Rx/DC Orders Clinical Impression: Episode of syncope Prescriptions: No Action hydrocodone-acetaminophen [[place]] 1 EACH tablet 1 ea PO Q6H PRN PRN (Reason: Pain) Primary Care Provider: Ed Bowman Chi Referrals: Ed Bowman Chi, MD [Primary Care Provider] - Disposition Disposition: Acute Care Hospital [facility]
[2022-04-27 10:28] LABS: Basophil# 0.05 X10^3/uL; Basophil% 0.6 % (0-1); Eosinophil# 0.21 X10^3/uL; Eosinophils% 2.4 % (0-5); Hematocrit 46.2 % (37-47); Hemoglobin 15.6 g/dL (12.0-15.0); Lymphocyte % 27.9 % (19-41); Mean Corp Hgb Conc 33.8 g/dL (32-36); Mean Corpuscular Hgb 30.6 pg (27.0-32.0); Mean Corpuscular Volume 90.6 fL (81-99); Mean Platelet Vol. 8.7 fl (6.2-12.0); Monocyte# 0.87 X10^3/uL; Monocyte% 10.1 % (0-10); NRBC Flagged by Analyzer 0 % (0-5); Neutrophil # 5.01 X10^3/uL (2.7-7.7); Neutrophil % 58.2 % (47-70); Platelet Count 321 K/mm3 (150-450); RBC Distribution Width CV 14.2 % (11.6-14.6); RBC Distribution Width SD 47.1 fl (35.1-43.9); White Blood Count 8.6 K/mm3 (4.4-11.0)
--- NOTE | 2022-04-27 10:30 | RAD_ITS ---
STUDY: X-RAY CHEST REASON FOR EXAM: Female, 71 years old. Fall TECHNIQUE: Single AP portable view of the chest. COMPARISON: Comparison is made with prior chest radiograph dated 10/12/2017. FINDINGS: EKG electrodes are seen. Stable mild degree of increased linear markings in the left mid lung suggestive of scarring. There is no demonstrated pleural abnormality. Normal size heart. Normal mediastinum and srinivas. Normal visualized pulmonary arteries. There is atherosclerotic tortuosity of the aortic arch and descending thoracic aorta. Normal visualized thoracic spine. Normal visualized ribs, clavicles, and shoulders. There is no demonstrated abnormality of the visualized soft tissue structures of the upper abdomen. RAD/Chest 1 View (Portable) IMPRESSION: Hyperinflation. Stable mild linear scarring in the left mid lung. Electronically Signed: Paul Jay MD at 10:59 EDT ,
[2022-04-27 10:41] LABS: Anion Gap 7 (5-15); BUN 23 mg/dL (7-18); BUN/Creat Ratio 19.7 RATIO (10-20); Calcium,Total 9.4 mg/dL (8.5-10.1); Chloride 104 mmol/L (98-107); Creatinine, Serum 1.17 mg/dL (0.55-1.02); EST Glomerular Filtration Rate 48 mL/min (>60); Est Glom Filt Rate - Afr Amer 58 mL/min (>60); Estimated Creatinine Clearance 38.53 ml/min; Glucose 89 mg/dL (74-106); Potassium 3.5 mmol/L (3.5-5.1); Sodium Level 141 mmol/L (136-145); Troponin-I HS (w/2H Reflex) 3 pg/mL (3.0-54.0)
[2022-04-27 11:53] LABS: Bacteria 0 SEEN /hpf (None Seen); Red Blood Cells-Urine 0 SEEN /hpf (0-5)
[2022-04-27 11:54] LABS: Color, Urine Yellow (Yellow); Glucose, Dipstick Normal (Normal); Ketone-Dipstick 5 mg/dl (Negative); Leukocyte Esterase-Dipstick 25 /ul (Negative); Nitrite-Dipstick Negative (Negative); Occult Blood-Urine Negative /ul (Negative); Protein-Dipstick 15 mg/dl (Negative); Urine Bilirubin Dipstick Negative (Negative); Urine Clarity Sl. Cloudy (Clear); Urine Urobilinogen Normal (Normal)
[2022-04-27 11:59] LABS: Mucous, Urine 1+ /hpf (<or=2+); White Blood Cells 0-5 SEEN /hpf (0-5)
[2022-04-27 12:00] LABS: Hyaline Cast 0-5 SEEN /lpf (0-5); Squamous Epithelial Cells - UA 0-5 SEEN /hpf (5-10)
[2022-04-27 12:22] LABS: Reflex Troponin-HS? (from REC) Y
--- NOTE | 2022-04-27 12:35 | HP.PCM.HOS_ITS ---
HPI - General General Date of Admission: 04/27/22 Date of Service: 04/27/22 Chief Complaint: Episode of passing out HPI Narrative BARBARA HERNANDEZ, is a 71 F with a history of fibromyalgia, falls, and ?thyroid dysfunction who presented to [facility] 04/27/22 after an episode with LOC. She reports she was [place] and began to feel dizzy at which time she fell and lost consciousness for several seconds. She is unsure if that happened on her way down or after she hit the right side of her head. Denies chest pain or shortness of breath at the time, no nausea or vomiting. This is happened before but many years ago. Additionally has a history of falls which she attributes to different size legs, but denies a mechanical component to this episode. She does report that she has been urinating frequently and was concerned she may be getting dehydrated. Has been eating and drinking okay, no diarrhea, no nausea. Presently has a headache and aching on the right side of her body due to the fall. Work-up in the ED thus far negative. Denies any recent medication changes or other inciting events but later noted that she took her [place] earlier than usual today and on an empty stomach. Does take 7.5 3 times daily chronically and denies problems in the past. Upon evaluation she denies any chest pain, shortness of breath, dizziness. Does feel generally weak, specifically in her legs. But was stood up and walked around the room with ED provider without incident. At home it is fairly functional but uses a walker when she goes out due to her history of falls and her left knee pain which she continues to have, unchanged. Denies any history of heart problems. No other complaints at this time aside from generalized pain which she reports is chronic and consistent with her fibromyalgia pain. [facility] Medical History Anxiety Fibromyalgia Home Medications hydrocodone-acetaminophen 5-325mg 5mg-325mg ([place]) 1 ea PO Q6H PRN PRN Pain 10/12/17 [History Last Taken Unknown] Allergy/AdvReac Type Severity Reaction Status Date / Time No Known Allergies Allergy Verified 02/21/21 11:53 no significant family history Surgical History History of cholecystectomy Social History Smoking Status: Never smoker ROS Constitutional Constitutional: Reports other Details: Feels some general weakness, especially in her legs, at this time ; Denies change in weight, chills, fever(s) or night sweats Eyes Eyes: Denies change in vision ENT HEENT: Reports other Details: Does have headache since fall ; Denies nasal congestion or sore throat Cardiovascular Cardiovascular: Denies chest pain or palpitations Respiratory/Chest Respiratory/Chest: Denies cough or productive cough Gastrointestinal Gastrointestinal: Reports other Details: denies changes in bowel or bladder ; Denies abdominal pain Genitourinary Genitourinary: Reports other Details: Has had some frequency, no suprapubic tenderness or burning Musculoskeletal Musculoskeletal: Reports other Details: Left knee pain, chronic, wide spread p ain without localization, also cronic Neurologic Neurologic: Denies dizziness, focal weakness, numbness or tingling Psychiatric Psychiatric: Denies anxiety or depression Hematologic/Lymphatic Hematologic/Lymphatic: Reports other Details: No complaints voiced Allergic/Immunologic Allergic/Immunologic: Reports other Details: denies rashes Vital Signs Vital Signs Vital Signs: 04/27/22 10:06 04/27/22 10:11 04/27/22 12:05 Temperature 96.7 F L 97.5 F L Temperature Source Temporal Oral Pulse Rate 89 90 Respiratory Rate 16 16 Respiratory Effort Normal Respiratory Pattern Normal Blood Pressure 146/84 H 144/89 H Blood Pressure Mean 104 107 Pulse Ox 92 98 Oxygen Delivery Method Room Air Room Air Weight Weight: 97.9 kg Body Mass Index (BMI) 35.9 Physical Exam Const alert and no apparent distress Constitutional Narrative: Oriented HEENT normocephalic and head/scalp atraumatic Eyes Eyes Narrative: EOM grossly intact, anicteric Neck no lymphadenopathy and supple Neck Narrative: No thyromegaly appreciated Resp normal respiratory effort and clear to auscultation bilaterally Cardio regular rate and regular rhythm GI soft to palpation, non-tender and non-distended Extremity Extremity Narrative: No edema appreciated, has 3/ strength in BLE symmetrically, 5/5 in upper body Neuro CN's II-XII intact bilaterally and moves all extremities Neuro Narrative: symmetric lower extremity weakness which she endorses happens when she has fallen in the past and is improving, was able to ambulate. Psych Psych Narrative: Cooperative Results Lab / Micro Data Result Diagrams: 04/27/22 10:00 04/27/22 10:00 Labs: Laboratory Results - last 24 hr 04/27/22 10:00: WBC 8.6, RBC 5.10, Hgb 15.6 H, Hct 46.2, MCV 90.6, MCH 30.6, MCHC 33.8, RDW Std Deviation 47.1 H, RDW Coeff of Larry 14.2, Plt Count 321, MPV 8.7, Immature Gran % (Auto) 0.800, Neut % (Auto) 58.2, Lymph % (Auto) 27.9, [place] % (Auto) 10.1 H, Eos % (Auto) 2.4, Baso % (Auto) 0.6, Absolute Neuts (auto) 5.0, Absolute Lymphs (auto) 2.40, Nucleated RBC % 0 04/27/22 10:00: Sodium 141, Potassium 3.5, Chloride 104, Carbon Dioxide 30.0, Anion Gap 7, BUN 23 H, Creatinine 1.17 H, Estim Creat Clear Calc 38.53, Est GFR (MDRD) Af Amer 58 L, Est GFR (MDRD) Non-Af 48 L, BUN/Creatinine Ratio 19.7, Glucose 89, Calcium 9.4, Troponin I High Sens 3 04/27/22 11:47: Urine Color Yellow, Urine Clarity Sl. Cloudy, Urine pH 5.0, Ur Specific Brave 1.020, Urine Protein 15 H, Urine Glucose (UA) Normal, Urine Ketones 5 H, Urine Occult Blood Negative, Urine Nitrite Negative, Urine Bilirubin Negative, Urine Urobilinogen Normal, Ur Leukocyte Esterase 25 H, Urine RBC 0 SEEN, Urine WBC 0-5 SEEN, Ur Squamous Epith Cells 0-5 SEEN, Urine Bacteria 0 SEEN, Hyaline Casts 0-5 SEEN, Urine Mucus 1+ Radiology Impression Brain CT 04/27/22 10:14 IMPRESSION: Chronic involutional changes of the brain. Stable small old lacunar infarct of the right basal ganglia. Electronically Signed: Paul Jay MD at 10:57 EDT , Cervical Spine CT 04/27/22 10:14 IMPRESSION: Multilevel degenerative changes, as described above. Electronically Signed: Paul Jay MD at 10:58 EDT , Chest X-Ray 04/27/22 10:30 IMPRESSION: Hyperinflation. Stable mild linear scarring in the left mid lung. Electronically Signed: Paul Jay MD at 10:59 EDT , Assessment & Plan Assessment/Plan (1) Episode of syncope: (2) Fibromyalgia: PLAN: Plan 1. Syncope Most likely orthostatic 2/2 volume depletion Pt reports drinking at least 6 Pepsi's a day and has noted increased urinary frequency Does appear to have slight hemoconcentration given elevated hemoglobin and slight bump in creatinine EKG unremarkable Orthostatics ordered Will begin fluids Consult PT Will admit to telemetry Did have CT which did not show any acute changes Echo ordered 2. Headache Likely secondary to fall T head and neck unremarkable Continue home [place] 3. Urinary frequency A1c ordered, UA ordered 4. Thyroid dysfunction Patient reports being on a thyroid supplement, unsure which 1 we will attempt to obtain med list TSH in the morning 5. Fibromyalgia Chronically on [place], this will be continued outpatient management Rubi Freire MD Charges/Coding Visit Charges Inpatient E&M: 44090 Init Hosp L2
[2022-04-27 13:37] LABS: Troponin-I HS < 3 pg/mL (3.0-54.0)
--- NOTE | 2022-04-27 13:44 | ECHOD_ITS ---
Reason For Study: SYNCOPE Procedure This was a 2D Doppler, Color Flow transthoracic echocardiogram. Exam performed portable in patient room. Left Ventricle Normal LV size. Apical false tendon noted. Left ventricular systolic function is normal. The estimated ejection fraction is 55 %. No evidence for diastolic dysfunction. No regional wall motion abnormalities noted. Right Ventricle Normal RV size. Normal systolic function. Atria Normal left atrium. Normal right atrium. No doppler evidence for ASD. Mitral Valve There is no mitral annular calcification. Normal mitral valve. Trivial mitral valve insufficiency. Tricuspid Valve Normal tricuspid valve. Trivial tricuspid valve insufficiency. Unable to estimate RV systolic pressure due to insufficient tricuspid regurgitant envelope. Aortic Valve Trisinus/trileaflet aortic valve. Mild focal aortic valve calcification. Trivial aortic valve insufficiency. Pulmonic Valve The pulmonic valve is not well visualized. Trivial pulmonic valve insufficiency. Great Vessels Normal sized aortic root. Pericardium/Pleural No pericardial effusion. MMode/2D Measurements & Calculations LVIDd: 4.9 cm IVSd: 1.2 cm Ao root diam: 3.3 cm LVIDs: 4.1 cm LVPWd: 0.58 cm FS: 16.4 % LAV(MOD-bp): 47.2 ml LVAd ap4: 19.3 cm2 SV(MOD-sp4): 22.5 ml LAV(MOD-bp) Indexed: 23.6 ml/m2 LVLd ap4: 7.1 cm LAV(MOD-sp2): 55.2 ml EDV(MOD-sp4): 43.3 ml LAV(MOD-sp4): 37.7 ml EDV(sp4-el): 45.1 ml LVAs ap4: 12.2 cm2 LVLs ap4: 5.9 cm ESV(MOD-sp4): 20.9 ml ESV(sp4-el): 21.4 ml EF(MOD-sp4): 51.9 % EF(sp4-el): 52.6 % SV(sp4-el): 23.7 ml LA A4 area: 15.4 cm2 LA dimension(2D): 4.1 cm RA A4 area: 9.6 cm2 Time Measurements MV dec time: 0.30 sec Doppler Measurements & Calculations MV E max nabor: 50.7 cm/sec Lat Peak E' Nabor: 6.0 cm/sec Med Peak E' Nabor: 7.2 cm/sec MV A max nabor: 84.7 cm/sec E/E' lat: 8.4 E/E' med: 7.1 MV E/A: 0.60 MV V2 max: 77.5 cm/sec Ao V2 max: 89.0 cm/sec MV max P.4 mmHg MV dec slope: 172.2 cm/sec2 Ao max P.2 mmHg MV V2 mean: 36.7 cm/sec Ao V2 mean: 65.3 cm/sec MV mean P.68 mmHg Ao mean P.9 mmHg MV V2 VTI: 17.6 cm Ao V2 VTI: 19.8 cm LV V1 max: 97.0 cm/sec PA V2 max: 134.2 cm/sec LV V1 max P.8 mmHg PA V2 mean: 86.7 cm/sec LV V1 mean P.9 mmHg LV V1 mean: 64.2 cm/sec LV V1 VTI: 16.9 cm ECHO/Echo Complete Interpretation Summary Left ventricular systolic function is normal. The estimated ejection fraction is 55 %. Apical false tendon noted. Trivial mitral valve insufficiency. Trivial tricuspid valve insufficiency. Mild focal aortic valve calcification. Trivial aortic valve insufficiency. Trivial pulmonic valve insufficiency. Unable to estimate RV systolic pressure due to insufficient tricuspid regurgita nt envelope. No evidence for diastolic dysfunction. Ordering Physician: Rubi Freire Referring Physician: Ed Bowman Chi Performed By: Concha Flores RCS
[2022-04-27] MEDS: Acetaminophen 325 MG Tablet 650 MG PO (15:11)
[2022-04-27] MEDS: 0.9% Normal Saline 1,000 ML 75 ML IV (15:12)
--- NOTE | 2022-04-27 19:53 | NURSING ---
Charting reviewed with Damian Gannon RN
[2022-04-28 03:00] VITALS: PULSE 72
[2022-04-28 05:00] VITALS: BP 157/92; PULSE 67; RESP 20; TEMP 37.1; O2SAT 97
[2022-04-28 05:31] LABS: Absolute Lymphocyte Count 2.29 X10^3/uL (0.83-4.51); Absolute Neutrophil Count 3.8 X10^3/uL (2.0-7.7); Basophil# 0.05 X10^3/uL; Basophil% 0.7 % (0-1); Eosinophil# 0.25 X10^3/uL; Eosinophils% 3.4 % (0-5); Hematocrit 39.8 % (37-47); Hemoglobin 12.8 g/dL (12.0-15.0); Lymphocyte # 2.29 X10^3/ul (0.83-4.51); Lymphocyte % 31.1 % (19-41); Mean Corp Hgb Conc 32.2 g/dL (32-36); Mean Corpuscular Hgb 29.8 pg (27.0-32.0); Mean Corpuscular Volume 92.6 fL (81-99); Mean Platelet Vol. 9.1 fl (6.2-12.0); Monocyte# 0.92 X10^3/uL; Monocyte% 12.5 % (0-10); NRBC Flagged by Analyzer 0 % (0-5); Neutrophil # 3.79 X10^3/uL (2.7-7.7); Neutrophil % 51.4 % (47-70); Platelet Count 272 K/mm3 (150-450); RBC Distribution Width CV 14.3 % (11.6-14.6); RBC Distribution Width SD 48.9 fl (35.1-43.9); White Blood Count 7.4 K/mm3 (4.4-11.0)
[2022-04-28] MEDS: Thyroid 15 MG Tablet PO (05:42)
[2022-04-28 07:00] VITALS: PULSE 71
[2022-04-28 07:10] LABS: ALB/GLOB Ratio 0.8 RATIO (0.9-2.4); AST(SGOT) 16 U/L (15-37); Alanine Aminotransfer ALT/SGPT 19 U/L (13-56); Albumin, Serum 2.8 g/dL (3.2-5.0); Alkaline Phosphatase 102 U/L (45-117); Anion Gap 4 (5-15); BUN 32 mg/dL (7-18); BUN/Creat Ratio 35.1 RATIO (10-20); Calcium,Total 8.8 mg/dL (8.5-10.1); Chloride 110 mmol/L (98-107); Creatinine, Serum 0.91 mg/dL (0.55-1.02); EST Glomerular Filtration Rate 64 mL/min (>60); Est Glom Filt Rate - Afr Amer 78 mL/min (>60); Estimated Creatinine Clearance 49.54 ml/min; Globulin 3.3 g/dL (2.2-4.2); Glucose 107 mg/dL (74-106); Potassium 4.4 mmol/L (3.5-5.1); Protein, Total 6.1 g/dL (6.4-8.2); Sodium Level 142 mmol/L (136-145); Thyroid Stim Hormone (TSH) 0.89 uIU/mL (0.358-3.74)
[2022-04-28] MEDS: HYDROcodone Bitartrate/Apap 5/325 Tablet PO ×2 (07:32→13:52)
[2022-04-28 08:37] VITALS: O2SAT 94
[2022-04-28 08:54] LABS: Hemoglobin A1c 5.5 % (3.8-5.6)
[2022-04-28 09:06] VITALS: BP 148/73; PULSE 78; RESP 14; TEMP 36.5; O2SAT 94
[2022-04-28] MEDS: Acetaminophen 325 MG Tablet 650 MG PO (11:11)
--- NOTE | 2022-04-28 11:46 | PCM.DC ---
Discharge Instructions Diet Discharge Diet: No restrictions Activity Discharge Activity: Return to Normal Activity Follow Up Care Test Results: Test results from this visit will be discussed in further detail at your follow-up appointment, if applicable. Discharge Plan Admission Admit Date/Time: 04/27/22 12:25 Primary Reason for Your Visit: Episode of passing out Attending Provider: Rubi Freire Primary Care Provider: Ed Bowman Chi Instructions Patient Instructions: Dizziness Fainting Causes Additional Instructions / Restrictions: *Please take this with you to your next doctors appointment* -Please hold your doxepin at this time until following up with your primary care physician as this can cause or contribute to dizziness - Your workup while in the hospital did not show any cause of your episode of dizziness with fall. Differential was discussed with you prior to discharge. - A 30 day heart monitor to assess for any underlying abnormal rhythm will be coordinated upon discharge -Please call your primary care provider's office upon discharge to schedule a hospital follow up within 1 week. 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 Rubi Freire Referrals / Follow Up: Ed Bowman Chi, MD [Primary Care Provider] - Disposition Disposition (needs filled in before D/C Order can be placed): Home, Self Care
--- NOTE | 2022-04-28 14:14 | CASEMGMT ---
MEY CM in to complete VALIENTE form at this time. RN CM explained VALIENTE form to patient, patient voiced understanding. Patient signed VALIENTE form and filed in chart. Patient provided with copy of signed VALIENTE form. Patient had no further questions or concerns at this time.
[2022-04-28 14:22] VITALS: BP 157/87; PULSE 89; RESP 14; TEMP 36.5; O2SAT 97
--- NOTE | 2022-04-28 16:48 | DS.PCM_ITS ---
Providers Date of Admission: 04/27/22 Date of Discharge: 04/28/22 Primary Care Physician: Dr. Ed Bowman MD Reason For Visit: syncope Diagnosis Discharge Diagnosis (1) Episode of syncope: Status: Acute Code(s): R55 - Syncope and collapse (2) Fibromyalgia: Status: Chronic Code(s): M79.7 - Fibromyalgia Plan 1. Syncope 2. Headache 3. Urinary frequency 4. Thyroid dysfunction 5. 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 She reported she was walking at [employer] and began to feel dizzy at which time she fell and lost consciousness for several seconds, she was unsure if she lost consciousness before hitting the ground or after she hit her head on the right side. She reports this that happened many years ago and also has a history of falls which she attributes to different length legs but denies mechanical component. She was brought in for further work-up. Orthostatic vitals were negative at the time they were performed. Echo unremarkable. CT without any acute changes. Could be secondary to medications given home Zuni that she took on an empty stomach that day which was unusual for her. Did have prodrome, may still been orthostatic but she received fluids prior to orthostats. Could be vasovagal. QTC within normal limits, EKG and telemetry relatively unremarkable but given symptoms and work-up otherwise negative will send home with a 30-day monitor. Advised to stop doxepin which she reports she had not taken for 2 days, as this could contribute. Did discuss old small lacunar infarct seen on CT and reports she was told she had had a stroke in the past but was not on aspirin and statin. Discussed option of beginning these and she refused and preferred to discuss with her primary care physician. Discussed follow-up and warning signs and symptoms, Ms. hernandez verbalized her understanding and will be discharged home in stable condition. On the day of discharge 04/28/2022 she reported feeling well overall, no further dizzy episodes and was able to work with physical therapy without need for rehab. She would like to go home and follow-up outpatient. No further complaints this AM aside from right-sided muscular neck pain. She will be continued on her home Zuni. Advised to take this as prescribed Physical Exam Const alert and no apparent distress Constitutional Narrative: Oriented HEENT normocephalic and head/scalp atraumatic Eyes Eyes Narrative: EOM grossly intact, anicteric Neck no lymphadenopathy and supple Neck Narrative: No thyromegaly appreciated Resp normal respiratory effort and clear to auscultation bilaterally Cardio regular rate and regular rhythm GI soft to palpation, non-tender and non-distended Extremity Extremity Narrative: No edema appreciated, has 4/5 strength in BLE symmetrically, 5/5 in upper body Neuro CN's II-XII intact bilaterally and moves all extremities Psych Psych Narrative: Cooperative Weight / BMI Weight Weight: 93.7 kg Body Mass Index (BMI) 34.3 ABG / Lab / Microbiology Data Result Diagrams: 04/28/22 04:29 04/28/22 04:29 Laboratory: Laboratory Results - last 24 hr 04/28/22 04:29: WBC 7.4, RBC 4.30, Hgb 12.8, Hct 39.8, MCV 92.6, MCH 29.8, MCHC 32.2, RDW Std Deviation 48.9 H, RDW Coeff of Larry 14.3, Plt Count 272, MPV 9.1, Immature Gran % (Auto) 0.900, Neut % (Auto) 51.4, Lymph % (Auto) 31.1, [place] % (Auto) 12.5 H, Eos % (Auto) 3.4, Baso % (Auto) 0.7, Absolute Neuts (auto) 3.8, Absolute Lymphs (auto) 2.29, Nucleated RBC % 0 04/28/22 04:29: Sodium 142, Potassium 4.4, Chloride 110 H, Carbon Dioxide 28.0, Anion Gap 4 L, BUN 32 H, Creatinine 0.91, Estim Creat Clear Calc 49.54, Est GFR (MDRD) Af Amer 78, Est GFR (MDRD) Non-Af 64, BUN/Creatinine Ratio 35.1 H, Glucose 107 H, Calcium 8.8, Total Bilirubin 0.30, AST 16, ALT 19, Alkaline Phosphatase 102, Total Protein 6.1 L, Albumin 2.8 L, Globulin 3.3, [place] min/Globulin Ratio 0.8 L, TSH 0.89 04/28/22 04:29: Hemoglobin A1c 5.5 D/C Instructions Discharge Diet: No restrictions Meaningful Use Info Meaningful Use Diagnoses (Choose all that apply): None applicable Discharge Plan Admission Admit Date/Time: 04/27/22 12:25 Primary Reason for Your Visit: Episode of passing out Attending Provider: Rubi Freire Primary Care Provider: Ed Bowman Chi Instructions Additional Instructions / Restrictions: *Please take this with you to your next doctors appointment* -Please hold your doxepin at this time until following up with your primary care physician as this can cause or contribute to dizziness - Your workup while in the hospital did not show any cause of your episode of dizziness with fall. Differential was discussed with you prior to discharge. - A 30 day heart monitor to assess for any underlying abnormal rhythm will be coordinated upon discharge - There was an old small stroke seen on your CT scan, we discussed this and at this time you deferred beginning an aspirin and statin and would like to speak with your primary care physician regarding this at your follow up. -Please call your primary care provider's office upon discharge to schedule a hospital follow up within 1 week. 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 Rubi Freire Referrals / Follow Up: Ed Bowman Chi, MD [Primary Care Provider] - Disposition Disposition (needs filled in before D/C Order can be placed): Home, Self Care Charges/Coding Visit Charges OBSV E&M: 46947 Observation care discharge
== END 2022-04-28 14:22 | disposition home or self-care (01) ==
LOC: ED 11:50 → PCU 12:08
PROVIDERS: Admitting Provider Internal Medicine; Emergency Provider Emergency Medicine; PCP Family Medicine Geriatric Medicine; Visit Provider Internal Medicine
DX: R55 Syncope and collapse (principal); M79.7 Fibromyalgia; R53.1 Weakness; M25.562 Pain in left knee; R42 Dizziness and giddiness; R51.9 Headache, unspecified; R35.0 Frequency of micturition; E07.9 Disorder of thyroid, unspecified; Z91.81 History of falling; F41.9 Anxiety disorder, unspecified; Z79.899 Other long term (current) drug therapy
CPT/HCPCS: 36415; 70450; 71045; 72125; 80048; 80053; 81001; 83036; 84443; 84484; 85025; 93005; 93306; 96360; 96361; 97162; 97530; 99218; 99285; J7030; J7040; G0378

== ENCOUNTER → 2022-08-31 | Outpatient (CLI) | payer MEDICARE, SELFPAY ==
[2022-08-31 17:14] LABS: Absolute Lymphocyte Count 3.62 X10^3/uL (0.83-4.51); Basophil# 0.06 X10^3/uL; Basophil% 0.5 % (0-1); Eosinophil# 0.06 X10^3/uL; Eosinophils% 0.5 % (0-5); Hematocrit 49.1 % (37-47); Hemoglobin 16.2 g/dL (12.0-15.0); Lymphocyte # 3.62 X10^3/ul (0.83-4.51); Lymphocyte % 30.4 % (19-41); Mean Corpuscular Hgb 30.3 pg (27.0-32.0); Mean Corpuscular Volume 91.9 fL (81-99); Mean Platelet Vol. 9.3 fl (6.2-12.0); Monocyte# 1.11 X10^3/uL; Monocyte% 9.3 % (0-10); NRBC Flagged by Analyzer 0 % (0-5); Neutrophil # 6.95 X10^3/uL (2.7-7.7); Neutrophil % 58.4 % (47-70); Platelet Count 370 K/mm3 (150-450); RBC Distribution Width CV 13.6 % (11.6-14.6); Red Blood Count 5.34 M/mm3 (4.2-5.4); White Blood Count 11.9 K/mm3 (4.4-11.0)
[2022-08-31 17:28] LABS: Vitamin D,25 Hydroxy 29.8 ng/mL
[2022-08-31 17:38] LABS: ALB/GLOB Ratio 0.9 RATIO (0.9-2.4); AST(SGOT) 22 U/L (15-37); Alanine Aminotransfer ALT/SGPT 26 U/L (13-56); Albumin, Serum 3.9 g/dL (3.2-5.0); Alkaline Phosphatase 100 U/L (45-117); Anion Gap 8 (5-15); BUN 24 mg/dL (7-18); BUN/Creat Ratio 18.2 RATIO (10-20); Calcium,Total 9.7 mg/dL (8.5-10.1); Chloride 105 mmol/L (98-107); Creatinine, Serum 1.32 mg/dL (0.55-1.02); EST Glomerular Filtration Rate 42 mL/min (>60); Est Glom Filt Rate - Afr Amer 51 mL/min (>60); Globulin 4.2 g/dL (2.2-4.2); Glucose 51 mg/dL (74-106); Potassium 3.5 mmol/L (3.5-5.1); Protein, Total 8.1 g/dL (6.4-8.2); Sodium Level 143 mmol/L (136-145); Thyroid Stim Hormone (TSH) 1.38 uIU/mL (0.358-3.74)
== END | disposition home or self-care (01) ==
LOC: POLAB3 13:54
PROVIDERS: PCP Family Medicine Geriatric Medicine; Visit Provider Family Medicine Geriatric Medicine
DX: E55.9 Vitamin D deficiency, unspecified (principal); R53.83 Other fatigue
CPT/HCPCS: 36415; 80053; 82306; 84443; 85025

== ENCOUNTER → 2022-09-01 | Outpatient (CLI) | payer MEDICARE, SELFPAY | END | disposition home or self-care (01) | PROVIDERS: PCP Family Medicine Geriatric Medicine; Visit Provider Family Medicine Geriatric Medicine | DX: R68.83 Chills (without fever) (principal) | CPT/HCPCS: 87635; 87804; 87807; C9803; U0003; U0005 ==

== ENCOUNTER → 2023-01-28 | Outpatient (CLI) | payer MEDICARE, SELFPAY | END | disposition home or self-care (01) | LOC: POLAB3 13:43 | PROVIDERS: PCP Family Medicine Geriatric Medicine; Visit Provider Physical Medicine & Rehabilitation | DX: M79.7 Fibromyalgia (principal); Z51.81 Encounter for therapeutic drug level monitoring | CPT/HCPCS: 36415 ==

== ENCOUNTER 2023-01-30 12:02 | Emergency (ER) | payer MEDICARE, SELFPAY ==
[2023-01-30 12:04] VITALS: PULSE 84; RESP 16; TEMP 35.8; O2SAT 97; BMI 35.1
--- NOTE | 2023-01-30 12:31 | CT_ITS ---
STUDY: CT CERVICAL SPINE WITHOUT CONTRAST REASON FOR EXAM: Female, 72 years old. neck trauma RADIATION DOSAGE (If Supplied By Facility): CTDIvol = ( 23.29 ) mGy, DLP = ( 510.38 ) mGycm TECHNIQUE: High resolution transaxial imaging was performed without contrast material. Sagittal and coronal images were reconstructed. Individualized dose optimization techniques were used for this CT. COMPARISON: None FINDINGS: Normal craniovertebral junction. Normal anterior atlantoaxial articulation. Normal odontoid process. There is straightening of the normal cervical lordosis. No visualized acute fracture or compression deformity. Mild multilevel degenerative changes are present. Normal central canal and intervertebral neuroforamina. Normal visualized soft tissue structures. CT/Spine Cervical without Contras IMPRESSION: Multilevel degenerative changes, as described above. Electronically Signed: Souleymane Rg MD at 14:21 EDT ,
--- NOTE | 2023-01-30 12:31 | CT_ITS ---
STUDY: CT FACIAL BONES WITHOUT CONTRAST REASON FOR EXAM: Female, 72 years old. Facial trauma RADIATION DOSAGE (If Supplied By Facility): CTDIvol = ( 29.38 ) mGy, DLP = ( 547.46 ) mGycm TECHNIQUE: Axial CT images of the facial bones were obtained with multiplanar reconstruction. The protocol utilizes one or more of the following dose reduction techniques: automated exposure control, adjustment of the mA and/or KV according to the patient size, and/or use of iterative reconstruction techniques. Individualized dose optimization techniques were used for this CT. COMPARISON: No relevant priors. FINDINGS: Soft Tissues: Normal: No focal or diffuse soft tissue swelling. Facial Bones: Normal: No fracture or destructive process. Mandible/TMJ: Normal. Orbital Contents: Normal globes, extraocular muscles, optic nerves, intraconal and extraconal spaces. Normal lamina papyracea. Visualized Paranasal Sinuses: Normal. Visualized Mastoid Air Cells: Normal. CT/Sinus/Facial Bone IMPRESSION: 1. Negative CT of the facial bones without contrast. Electronically Signed: Souleymane Rg MD at 14:23 EDT ,
--- NOTE | 2023-01-30 12:31 | CT_ITS ---
STUDY: CT BRAIN WITHOUT CONTRAST REASON FOR EXAM: Female, 72 years old. Head trauma RADIATION DOSAGE (If Supplied By Facility): CTDIvol = ( 44.99 ) mGy, DLP = ( 779.24 ) mGycm TECHNIQUE: Transaxial CT imaging of the brain was performed without administration of intravenous contrast material. Individualized dose optimization techniques were used for this CT. COMPARISON: Head CT dated April 27, 2022 FINDINGS: Normal soft tissue structures. Normal calvarium. No visualized fracture or subdural hematoma. There is mild cerebral atrophy with widening of the extra-axial spaces and ventricular dilatation. There are areas of decreased attenuation within the white matter tracts of the supratentorial brain, consistent with microvascular disease changes. Normal basal ganglia and thalami. Normal brainstem. Normal cerebellum. There is no intracranial hemorrhage. There are no findings of an acute ischemic infarction. Normal visualized paranasal sinuses. CT/Brain/Head without Contrast IMPRESSION: Chronic involutional changes of the brain. Electronically Signed: Souleymane Rg MD at 14:19 EDT ,
--- NOTE | 2023-01-30 12:31 | RAD_ITS ---
STUDY: X-RAY - RIGHT HAND REASON FOR EXAM: Female, 72 years old. pain TECHNIQUE: 3 view(s) of the hand. COMPARISON: None. FINDINGS: Normal radiocarpal articulation. Normal distal radioulnar joint. Normal visualized carpal bones. Normal carpal articulations Normal carpometacarpal articulation of the thumb. Normal second through fifth carpometacarpal joints. Normal metacarpi. Normal metacarpophalangeal joint of the thumb. Normal interphalangeal joint of the thumb. Normal proximal and distal phalanges of the thumb. Normal metacarpophalangeal joints of the second through fifth fingers. Normal proximal and distal interphalangeal joints of the second through fifth fingers. Normal phalanges of the second through fifth fingers. The soft tissue structures are unremarkable. RAD/Hand Min 3 Views IMPRESSION: Normal x-ray examination of the hand. Electronically Signed: Souleymane Rg MD at 14:17 EDT ,
--- NOTE | 2023-01-30 12:33 | EDS_ITS ---
HPI History of Present Illness Chief Complaint: Fall Narrative Narrative: 72-year-old female had a mechanical fall from standing height yesterday and fell hitting her face. She states that she did not lose consciousness but she did injure her nose at the bridge. She complains of facial pain around the bridge of the nose rating up into the forehead. She also has a headache and neck pain. Patient states that she also injured her right index finger in the fall yesterday. She states that the skin on the finger was pulled proximally and she has a little bit of a bleed there. She was able to get this under control with pressure and dressings. Patient still has pain in that finger. Patient not on any blood thinners. She also states has been a little bit dizzy and nauseous since the fall. 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 Father Cancer Surgical History History of cholecystectomy History of partial hysterectomy Social History Smoking Status: Never smoker ROS ROS ED ROS Narrative Dizziness Constitutional Constitutional ED: Denies chills, fever(s) or sweats Eyes Eyes: Denies blurry vision or change in vision ENT ENT ED: Denies ear pain or sore throat Cardiovascular Cardiovascular: Denies chest pain, palpitations or racing heartbeat Respiratory/Chest Respiratory/Chest: Denies cough, dyspnea or sputum Gastrointestinal Gastrointestinal: Reports nausea; Denies abdominal pain, constipation, diarrhea or vomiting Genitourinary Genitourinary ED: Denies dysuria, hematuria or urinary frequency Musculoskeletal Musculoskeletal: Reports neck pain and other Details: Right index finger pain ; Denies arthralgias or myalgias Integumentary Denies abscess, Abrasions or rash Neurologic Neurologic: Reports headache(s); Denies paresthesias or weakness Psychiatric Psychiatric: Denies anxiety, depression, suicidal ideation or suicidal thoughts Endocrine Endocrinology: Denies polydipsia or polyuria EXAM Physical Exam Const Vital Signs: 01/30/23 12:04 Temperature 96.4 F L Temperature Source Temporal Pulse Rate 84 Respiratory Rate 16 Pulse Ox 97 Oxygen Delivery Method Room Air Positive well nourished General Appearance ED: NAD HEENT HEENT Narrative: Contusion to the nasal bridge. No deformity. No nasal septal hematoma. Nares patent. No evidence of basilar skull fracture. No jaw malocclusion. Neck Neck Narrative: Tenderness to palpation left paraspinal muscular region. No midline deformity or step-off. Resp normal respiratory effort Cardio regular rhythm Rate: regular rate Neuro oriented x3 and CN's II-XII intact bilaterally Sensorium / Orientation: alert Motor Exam: strength 5/5 throughout Skin Skin Narrative: Superficial abrasion proximal to the right index finger with no active bleeding. There is some edema in the tip of the left index finger. The nail is still in place. MDM MDM MDM Narrative Medical decision making narrative: 72-year-old female with fall from standing height presenting with facial pain, headache, neck pain and right index finger pain. Patient given [place] and Zofran for her nausea. Is possible she has a concussion but also she could have intracranial injury, C-spine injury, facial fractures, finger fracture. Will obtain images of the brain, cervical spine, facial bones, right index finger. The brain, cervical spine, facial bones all negative for acute findings. X-ray of the right hand on my interpretation shows no acute fractures or subluxation. The radiologist interprets this and agrees. Patient feels better after receiving Zofran and K[place]nuk. She states she has more Kipnuk at home. I offered her more antiemetics but she declines. I suspect she likely has a mild concussion and cervical strain. Impression: 1. Mechanical fall 2. Concussion 3. Cervical strain 4. Right index finger contusion Radiography Diagnostic Testing: Clinical Impression(s) from Imaging Studies Brain CT 01/30/23 12:31 IMPRESSION: Chronic involutional changes of the brain. Electronically Signed: Souleymane Rg MD at 14:19 EDT Reading Location ID and State: [address] [place] [address] , Service support , Cervical Spine CT 01/30/23 12:31 IMPRESSION: Multilevel degenerative changes, as described above. Electronically Signed: Souleymane Rg MD at 14:21 EDT Reading Location ID and State: [facility] / [place] , Service support , ADDENDUM: 01/30/23 1430 IMPRESSION: undefined Facial/Sinus 01/30/23 12:31 IMPRESSION: 1. Negative CT of the facial bones without contrast. Electronically Signed: Souleymane Rg MD at 14:23 EDT Reading Location ID and State: [address] [place] [address] , Service support , Hand X-Ray 01/30/23 12:31 IMPRESSION: Normal x-ray examination of the hand. 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
[2023-01-30] MEDS: Ondansetron ODT 4 MG Tablet PO (12:52)
[2023-01-30] MEDS: HYDROcodone Bitartrate/Apap 5/325 Tablet PO (12:52)
[2023-01-30 15:12] VITALS: PULSE 65; RESP 16; O2SAT 97
== END 2023-01-30 15:18 | disposition home or self-care (01) ==
PROVIDERS: Emergency Provider Student in an Organized Health Care Education/Training Program; PCP Family Medicine Geriatric Medicine; Visit Provider Student in an Organized Health Care Education/Training Program
DX: S06.0X0A Concussion without loss of consciousness, initial encounter (principal); S16.1XXA Strain of muscle, fascia and tendon at neck level, initial encounter; S60.021A Contusion of right index finger without damage to nail, initial encounter; W19.XXXA Unspecified fall, initial encounter
CPT/HCPCS: 70450; 70486; 72125; 73130; 99283

== ENCOUNTER → 2023-03-08 | Outpatient (CLI) | payer MEDICARE, SELFPAY ==
[2023-03-08 13:53] LABS: Absolute Lymphocyte Count 2.55 X10^3/uL (0.83-4.51); Absolute Neutrophil Count 6.4 X10^3/uL (2.0-7.7); Basophil# 0.06 X10^3/uL; Basophil% 0.6 % (0-1); Hematocrit 45.7 % (37-47); Hemoglobin 14.6 g/dL (12.0-15.0); Lymphocyte # 2.55 X10^3/ul (0.83-4.51); Lymphocyte % 24.9 % (19-41); Mean Corp Hgb Conc 31.9 g/dL (32-36); Mean Corpuscular Hgb 30.1 pg (27.0-32.0); Mean Corpuscular Volume 94.2 fL (81-99); Mean Platelet Vol. 9.3 fl (6.2-12.0); Monocyte# 0.98 X10^3/uL; Monocyte% 9.6 % (0-10); NRBC Flagged by Analyzer 0 % (0-5); Neutrophil # 6.43 X10^3/uL (2.7-7.7); Neutrophil % 62.7 % (47-70); Platelet Count 322 K/mm3 (150-450); RBC Distribution Width SD 48.7 fl (35.1-43.9); Red Blood Count 4.85 M/mm3 (4.2-5.4); White Blood Count 10.2 K/mm3 (4.4-11.0)
[2023-03-08 14:07] LABS: Vitamin D,25 Hydroxy 40.6 ng/mL
[2023-03-08 14:17] LABS: ALB/GLOB Ratio 0.8 RATIO (0.9-2.4); AST(SGOT) 16 U/L (15-37); Alanine Aminotransfer ALT/SGPT 25 U/L (13-56); Albumin, Serum 3.4 g/dL (3.2-5.0); Alkaline Phosphatase 103 U/L (45-117); Anion Gap 5 (5-15); BUN 24 mg/dL (7-18); BUN/Creat Ratio 22.4 RATIO (10-20); Calcium,Total 9.4 mg/dL (8.5-10.1); Chloride 107 mmol/L (98-107); Creatinine, Serum 1.07 mg/dL (0.55-1.02); EST Glomerular Filtration Rate 53 mL/min (>60); Est Glom Filt Rate - Afr Amer 64 mL/min (>60); Globulin 4.1 g/dL (2.2-4.2); Glucose 123 mg/dL (74-106); Potassium 4.7 mmol/L (3.5-5.1); Protein, Total 7.5 g/dL (6.4-8.2); Sodium Level 141 mmol/L (136-145); Thyroid Stim Hormone (TSH) 1.58 uIU/mL (0.358-3.74)
== END | disposition home or self-care (01) ==
LOC: POLAB3 13:01
PROVIDERS: PCP Family Medicine Geriatric Medicine; Visit Provider Family Medicine Geriatric Medicine
DX: R53.83 Other fatigue (principal); E55.9 Vitamin D deficiency, unspecified
CPT/HCPCS: 36415; 80053; 82306; 84443; 85025

== ENCOUNTER → 2023-03-16 | Outpatient (CLI) | payer MEDICARE, SELFPAY ==
--- NOTE | 2023-03-16 10:56 | BD_ITS ---
STUDY: DUAL ENERGY X-RAY ABSORPTIOMETRY / DXA REASON FOR EXAM: Female, 72 years old. 627.8Menopausal postmenopausal TECHNIQUE: Bone Mineral Density (BMD) measurements of lumbar spine and bilateral hips were obtained. COMPARISON: Comparison is made with prior study dated April 06, 2019. FINDINGS: Lumbar Spine (L1-L4): g/cm2 (0.946) / T-score (-0.9) / Z-score (1.5) Findings are suggestive of normal bone density with a low fracture risk. Left Femur Total: g/cm2 (0.941) / T-score (0.0) / Z-score (1.7) Left Femoral Neck: g/cm2 (0.585) / T-score (-2.4) / Z-score (-0.3) Right Femur Total: g/cm2 (0.902) / T-score (-0.3) / Z-score (1.4) Right Femoral Neck: g/cm2 (0.601) / T-score (-2.2) / Z-score (-0.2) The T-Scores on the most recent prior examination were: Lumbar Spine (L1-L4): There has been worsening of bone density since the previous examination. Left Femur Total: which represents an improvement of 9.3%. Right Femur Total: which represents an improvement of 1.1%. BD/Dexa Bone Density Study IMPRESSION: The patient is considered osteopenic as outlined below according to World Byron Organization (WHO) criteria with a high fracture risk. There has been improvement of bone density since the previous examination. Reference Information: The T-score is the number of standard deviations above or below the standard which is normal for young adults at their peak bone mineral density. The World Health Organization (WHO) interprets the T-scores as follows: Above -1 Normal bone density Between -1 and -2.5 Osteopenia Equal to / or below -2.5 Osteoporosis As a practical clinical guideline, osteopenia may be graded as follows: Mild -1 through -1.5 Moderate -1.6 through -2.0 Severe -2.1 through -2.4 The Z-score is the number of standard deviations above or below age-matched controls. A Z-score of less than -1.5 would be considered abnormal. References: 1. NIH Osteoporosis and Related Bone Diseases www osteo.org 2. International Society for Clinical Densitometry www iscd.org 3. National Osteoporosis Foundation www nof.org Electronically Signed: Paul Jay MD at 14:37 EDT ,
== END | disposition home or self-care (01) ==
LOC: OPBD 10:44
PROVIDERS: PCP Family Medicine Geriatric Medicine; Referring Provider Family Medicine Geriatric Medicine; Visit Provider Family Medicine Geriatric Medicine
DX: Z78.0 Asymptomatic menopausal state (principal)
CPT/HCPCS: 77080

== ENCOUNTER → 2023-03-23 | Outpatient (CLI) | payer MEDICARE, SELFPAY ==
--- NOTE | 2023-03-23 16:11 | RAD_ITS ---
ACR Level 3 findings have been noted. An addendum which confirms receipt of the report will follow. STUDY: X-RAY - RIGHT HAND REASON FOR EXAM: Female, 72 years old. RIGHT HAND PAIN TECHNIQUE: 3 view(s) of the hand. COMPARISON: January 30, 2023 FINDINGS: Normal radiocarpal articulation. Normal distal radioulnar joint. Normal visualized carpal bones. Normal carpal articulations Normal carpometacarpal articulation of the thumb. Normal second through fifth carpometacarpal joints. Normal metacarpi. Normal metacarpophalangeal joint of the thumb. Normal interphalangeal joint of the thumb. Normal proximal and distal phalanges of the thumb. Normal metacarpophalangeal joints of the second through fifth fingers. Normal proximal and distal interphalangeal joints of the second through fifth fingers. There is very subtle cortical loss and periosteal elevation of the proximal shaft of the distal phalanx of the third digit suspicious for early changes of acute osteomyelitis which is new finding since prior exam Soft tissue swelling of the distal third digit RAD/Hand Min 3 Views IMPRESSION: Findings which may be consistent with evolving acute osteomyelitis of the distal phalanx of the third digit. 3 phase bone scan or MRI would be useful for further evaluation if indicated Electronically Signed: Pete Alcala MD at 18:28 EDT ,
== END | disposition home or self-care (01) ==
LOC: RAD 15:58
PROVIDERS: PCP Family Medicine Geriatric Medicine; Referring Provider Family Medicine Geriatric Medicine; Visit Provider Family Medicine Geriatric Medicine
DX: M79.641 Pain in right hand (principal)
CPT/HCPCS: 73130

== ENCOUNTER → 2023-04-14 | Outpatient (CLI) | payer MEDICARE, SELFPAY ==
--- NOTE | 2023-04-14 15:27 | MRI_ITS ---
STUDY: MRI RIGHT HAND, WITHOUT AND WITH IV CONTRAST REASON FOR EXAM: Female, 72 years old. Osteomyelitis, distal phalanx third digit, proximal nailbed. TECHNIQUE: Standardized fat and water weighted pulse sequences were obtained in all 3 orthogonal planes. Following the intravenous administration of 18 cc Clariscan contrast, additional postcontrast imaging was obtained. COMPARISON: Right hand radiographs dated 01/30/2023 and 03/23/2023. FINDINGS: Normal flexor tendons, without tear or tenosynovitis. Normal visualized annular castillo system. Normal volar plates. Normal extensor tendons, without tendon tear, subluxation or tenosynovitis. Normal sagittal bands and dorsal expansion (muñoz). Normal first through fifth MCP joints without degenerative change, synovitis, periarticular inflammation or marginal erosions. Normal interphalangeal joint of the thumb and second through fifth PIP joints without degenerative change, synovitis, periarticular inflammation or marginal erosions. There is an avulsion fracture at the dorsal base of the third distal phalanx (sagittal T2 series 7 images 18-19). There is mild reactive marrow edema but no evidence of osteomyelitis. There is mild subcutaneous soft tissue swelling of the distal third digit. Normal marrow within the remainder of the phalanges and metacarpals. Normal muscle groups of the thenar and hypothenar eminences. Normal lumbricalis and interosseous muscles. There are no soft tissue masses or atrophy. There is no abnormal enhancing lesion. MRI/Upper Ext No Joint W/WO Cont IMPRESSION: Avulsion fracture at the dorsal base of the third distal phalanx. Mild reactive marrow edema but no evidence of osteomyelitis. Mild subcutaneous soft tissue swelling of the distal third digit. No abnormal enhancing lesion. Electronically Signed: Fahad Olguin MD at 9:17 EDT ,
== END | disposition home or self-care (01) ==
LOC: MRI 15:22
PROVIDERS: PCP Family Medicine Geriatric Medicine; Referring Provider Family Medicine Geriatric Medicine; Visit Provider Family Medicine Geriatric Medicine
DX: M79.641 Pain in right hand (principal)
CPT/HCPCS: 73220; A9575

== ENCOUNTER → 2023-08-13 | Outpatient (CLI) | payer MEDICARE, SELFPAY ==
--- NOTE | 2023-08-13 11:15 | RAD_ITS ---
INDICATION: PAIN IN RIGHT FOOT EXAMINATION/TECHNIQUE: X-RAY - RIGHT XR Foot Min 3 Views 3 VIEWS COMPARISON: No relevant prior comparison study available FINDINGS: SOFT TISSUES: No soft tissue swelling or gas. No radiopaque foreign body. BONES/JOINTS: Fracture of the proximal phalanx of the fourth toe appears to be old. No demonstrated otherwise acute fracture. Normal alignment. Mild degenerative arthrosis of the first metatarsophalangeal joint.. No sclerotic or destructive changes observed. RAD/Foot min 3 Views IMPRESSION: Old fracture of the proximal phalanx of the fourth toe. Mild degenerative arthrosis. Electronically Signed: Alexey Guidry MD at 17:21 EST ,
== END | disposition home or self-care (01) ==
PROVIDERS: PCP Family Medicine Geriatric Medicine; Referring Provider Family Medicine Geriatric Medicine; Visit Provider Family Medicine Geriatric Medicine
DX: M79.671 Pain in right foot (principal)
CPT/HCPCS: 73630

== ENCOUNTER → 2023-09-06 | Outpatient (CLI) | payer MEDICARE, SELFPAY ==
[2023-09-06 13:49] LABS: Hematocrit 47.9 % (37-47); Hemoglobin 15.3 g/dL (12.0-15.0); Mean Corp Hgb Conc 31.9 g/dL (32-36); Mean Corpuscular Volume 90.9 fL (81-99); POSITIVE COUNT YES; POSITIVE MORPHOLOGY YES; Platelet Count 406 K/mm3 (150-450); RBC Distribution Width CV 14.2 % (11.6-14.6); RBC Distribution Width SD 47.3 fl (35.1-43.9); Red Blood Count 5.27 M/mm3 (4.2-5.4); White Blood Count 11.5 K/mm3 (4.4-11.0)
[2023-09-06 13:52] LABS: Differential Indicated MANUAL DIFF
[2023-09-06 14:23] LABS: Lymphocyte 12 % (19-41); Monocyte 1 % (0-10); Myelocyte 1 % (0-0); Neutrophil-Band 3 % (0-5); Neutrophil-Segmented 83 % (47-70); Platelet Estimate ADEQUATE (ADEQ); Red Cell Morphology NORM C+C NORMAL (NORM C&C); Total Cells Counted 100 (MANUAL DIFF)
[2023-09-06 14:24] LABS: Absolute Lymphocyte Count 1.38 X10^3/uL (0.83-4.51); Absolute Neutrophil Count 9.9 X10^3/uL (2.0-7.7)
[2023-09-06 15:33] LABS: Vitamin D,25 Hydroxy 35.4 ng/mL
[2023-09-06 15:43] LABS: ALB/GLOB Ratio 1.1 RATIO (0.9-2.4); AST(SGOT) 18 U/L (15-37); Alanine Aminotransfer ALT/SGPT 22 U/L (13-56); Alkaline Phosphatase 106 U/L (45-117); Anion Gap 8 (5-15); BUN 39 mg/dL (7-18); Calcium,Total 9.3 mg/dL (8.5-10.1); Chloride 106 mmol/L (98-107); Creatinine, Serum 1.26 mg/dL (0.55-1.02); EST Glomerular Filtration Rate 44 mL/min (>60); Est Glom Filt Rate - Afr Amer 53 mL/min (>60); Globulin 3.7 g/dL (2.2-4.2); Glucose 168 mg/dL (74-106); Potassium 3.9 mmol/L (3.5-5.1); Protein, Total 7.7 g/dL (6.4-8.2); Sodium Level 140 mmol/L (136-145); Thyroid Stim Hormone (TSH) 0.45 uIU/mL (0.358-3.74)
--- OUTSIDE RECORDS SUMMARY | 2023-09-06 21:53 | XMS RPT_ITS | CCD ---
Author Name Unknown Address [address] [place] [id number] Organization [facility] Results Test Name Value Interpretation Reference Range Facil ity Procedures Date Procedure Procedure Detail Performing Clinician Start: 01-03-2021 Ecg routine ecg w/le ast 12 lds i&r only Progress note 02-21-2021 Note Date & Type Note Facility 02-21-2021 Note HNO ID: [id number] Author: Pete Melvin APRN.[facility] [facility] Service: ? Author Type: Nurse Practitioner Type: Progress Notes Filed: 02/21/2021 11:45 AM Note Text: Subjective HPI Nontoxic appearing female presents urgent care chief complaint left second digit laceration. Duration of symptoms greater than 3 days. Patient states she was opening a box with a dry box tender when she cut her index finger left hand. Patient states this occurred early Wednesday morning. Has been cleaning wound with soap and water and using triple antibiotic cream. Presents today because feels like she needs stitches to close the wound. States she has been using a Band-Aid and gauze dressing. Has been cleaning wound daily. Keeping covered and dry. Denies any redness or wound drainage. Denies any joint pain. States she does have mild numbness to the tip of her finger. Does not know if this is improving or worsening. Denies any fevers, cough, abdominal pain, chest pain, shortness of breath change in bowel or bladder habit. Past medical history prescription medication use allergies reviewed. .Patient presents with: Laceration: left pointer finger x 2-3 days, box knife PAST MEDICAL HISTORY Diagnosis Date - Acute cholecystitis 12/2019 - Fibromyalgia PAST SURGICAL HISTORY Procedure Laterality Date - APPENDECTOMY - LAPAROSCOPIC CHOLEYCYSTECTOMY 12/22/2019 Cholecystectomy, lap - PAST SURGICAL HISTORY OF 2006 Hernia repair - PAST SURGICAL HISTORY OF 1989 Partial hysterectomy - REMOVAL OF TONSILS,<10 Y/O Tonsillectomy ALLERGIES Patient has no known allergies. MEDICATIONS HYDROcodone-Acetaminophen (NORCO) 7.5-325 mg per tablet Take 1 tablet by mouth three times daily as needed. buPROPion SR (ZYBAN SR; WELLBUTRIN SR) 150 mg 12 hr tablet Take 150 mg by mouth twice daily. gabapentin (NEURONTIN) 400 mg capsule Take 1 capsule by mouth once daily. pkripkkpmby-U2-Pvwkofpvq serr (OSTEO BI-FLEX, 5-LOXIN,) 1,500-400-100 mg-unit-mg tab Take 1 tablet by mouth once daily. LIDOCAINE (PF) 100 MG/ML (10 %) IV Not sure of dose, IV lidocaine infusion once monthly FAMILY HISTORY Problem Relation Age of Onset - Heart Mother ND - Cancer Father Lung - Heart Sister ND, stents Social History Tobacco Use - Smoking status: Never Smoker - Smokeless tobacco: Never Used Substance Use Topics - Alcohol use: No - Drug use: No BP 128/80 Pulse 86 Temp 37.1 ?C (98.7 ?F) Resp 16 Wt 89.8 kg (198 lb) SpO2 97% Review of Systems Constitutional: Negative for chills, fever and malaise/fatigue. HENT: Negative for congestion, ear discharge, ear pain, sinus pain and sore throat. Eyes: Negative for blurred vision. Respiratory: Negative for cough, sputum production, shortness of breath and wheezing. Cardiovascular: Negative for chest pain. Gastrointestinal: Negative for abdominal pain, diarrhea, nausea and vomiting. Musculoskeletal: Negative for joint pain and myalgias. Skin: Negative for itching and rash. Neurological: Negative for dizziness and headaches. Objective Physical Exam Constitutional: General: She is not in acute distress. Appearance: She is not diaphoretic. HENT: Head: Normocephalic. Eyes: Conjunctiva/sclera: Conjunctivae normal. Pupils: Pupils are equal, round, and reactive to light. Cardiovascular: Rate and Rhythm: Normal rate and regular rhythm. Heart sounds: Normal heart sounds. Pulmonary: Effort: Pulmonary effort is normal. No tachypnea, accessory muscle usage or respiratory distress. Breath sounds: Normal breath sounds. Abdominal: Palpations: Abdomen is soft. Tenderness: There is no abdominal tenderness. Musculoskeletal: Cervical back: Normal range of motion and neck supple. Skin: General: Skin is warm and dry. Comments: A 2 cm x 0.2 cm laceration between MCP and PIP joint second digit lateral aspect. No wound drainage. No redness. Wound is not well approximated. Neurovascular intact. No foreign bodies joint bone or ligament involvement noted. Neurological: Mental Status: She is alert and oriented to person, place, and time. ASSESSMENT/PLAN: 1. Laceration of left hand without foreign body, initial encounter - ICD9: 882.0, ICD10: S61.412A Wound will not be closed using sutures due to the age of wound. Tetanus shot within 3 years. No evidence of bacterial infection noted. Neurovascular intact. No weakness. No bone or ligament joint involvement. No foreign bodies. Patient wound will be closed loosely with Steri-Strips finger splint applied. Patient states she is going to proceed to follow-up with PCP directly after today's visit to see if provider will so wound shot. Patient proceeding after today's visit to PCP office. Red flags for reevaluation of follow-up discussed with patient. Patient verbalized understanding agrees with plan of care. Pete Melvin APRN.[facility] Summary Purpose Family History No Family History Records FoundNo Family History Records Found Advance Directives No Advanced Directives Records FoundNo Advanced Directives Records Found Additional Source Comments INFORMATION SOURCE (unrecogn ized section and content) DATE CREATED AUTHOR AUTHOR'S ORGANIZ ATION 08/28/2021 [facility] cleopatra Patel FOR RECORDS PERTAINING TO PATIENTS WHO ARE OR HAVE BEEN ENROLLED IN A CHEMICAL DEPENDENCY/SUBSTANCEABUSE PROGRAM, SOME INFORMATION MAY BE OMITTED. This clinical summary was aggregated from multiple sources. Caution should be exercised in using it in the provision of clinical care. This summary normalizes information from multiple sources, and as a consequence, information in this document may materially change the coding, format and clinical context of patient data. In addition, data may be omitted in some cases. CLINICAL DECISIONS SHOULD BE BASED ON THE PRIMARY CLINICAL RECORDS. [employer] provides no warranty or guarantee of the accuracy or completeness of information in this document.
[2023-09-07 13:19] LABS: Pathologist Review Reviewed
== END | disposition home or self-care (01) ==
LOC: POLAB3 13:23
PROVIDERS: PCP Family Medicine Geriatric Medicine; Visit Provider Family Medicine Geriatric Medicine
DX: R53.83 Other fatigue (principal); E55.9 Vitamin D deficiency, unspecified
CPT/HCPCS: 36415; 80053; 82306; 84443; 85025

== ENCOUNTER 2023-12-06 14:07 | Emergency (ER) | payer MEDICARE, SELFPAY ==
[2023-12-06 14:07] VITALS: BP 183/100; PULSE 91; RESP 116; TEMP 35.4; O2SAT 95; BMI 39.0
--- NOTE | 2023-12-06 14:24 | RAD_ITS ---
STUDY: X-RAY - LEFT ANKLE REASON FOR EXAM: Female, 73 years old. injury TECHNIQUE: 3 view(s) of the ankle. COMPARISON: None. FINDINGS: Normal visualized distal tibia and fibula. Normal medial and lateral malleoli. Normal tibiotalar articulation and ankle mortise. Normal visualized talus and calcaneus. The visualized subtalar, talonavicular, calcaneocuboid and tarsal articulations are normal. The soft tissue structures are unremarkable. Nondisplaced fracture of the fifth metatarsal is seen. RAD/Ankle min 3 Views IMPRESSION: Normal x-ray examination of the ankle. Electronically Signed: Hollis Chaney MD at 19:16 EDT ,
--- NOTE | 2023-12-06 14:24 | RAD_ITS ---
STUDY: X-RAY - LEFT FOOT CLINICAL: Female, 73 years old. injury TECHNIQUE: 3 view(s) of the foot. COMPARISON: None. FINDINGS: There is nondisplaced fracture through the mid fifth metatarsal shaft. No angulation. No other acute abnormalities. Normal talus, calcaneus, and tarsal bones. Normal visualized subtalar, talonavicular, calcaneocuboid, tarsal and tarsometatarsal articulations. There is degenerative arthrosis of the metatarsophalangeal joint of the hallux . Normal tibial and fibular sesamoid bones. Normal interphalangeal joint of the great toe. Normal phalanges of the great toe. Normal second through fifth metatarsophalangeal joints. Normal interphalangeal joints and phalanges of the lesser toes. The soft tissue structures are unremarkable. RAD/Foot min 3 Views IMPRESSION: There is nondisplaced fracture through the mid fifth metatarsal shaft. No angulation. Electronically Signed: Hollis Chaney MD at 19:12 EDT ,
--- NOTE | 2023-12-06 14:25 | ED.VIS.FALL ---
HPI HPI - Fall History of Present Illness Chief Complaint: Fall Informant: patient Occured/Mechanism Occurred: Today Narrative Narrative: Patient presents after a trip and fall at home today. She was coming back into her home when she caught her foot on a table and fell to the floor. She complains of pain to the left foot and ankle. She was able to weightbear after her injury. PFSH PFSH Medical History Episode of syncope Fibromyalgia Anxiety Home Medications ?Medication ?Instructions ?Recorded ?Last Taken ?Type hydrocodone-acetaminophen 5-325mg 1 ea PO Q6H PRN PRN Pain 10/12/17 Unknown History 5mg-325mg ([place]) buspirone 10 mg tablet 20 mg PO TID anxiety 04/27/22 Unknown History paroxetine HCl 40 mg tablet 40 mg PO DAILY depression 04/27/22 Unknown History thyroid (pork) 15 mg tablet ([facility] 15 mg PO DAILY Thyroid 04/27/22 Unknown History Thyroid) Allergy/AdvReac Type Severity Reaction Status Date / Time No Known Allergies Allergy Verified 01/30/23 12:03 Family History Mother Myocardial infarction Sister Diabetes Cancer Sister No problems noted. Father Cancer Surgical History History of partial hysterectomy History of cholecystectomy Social History Smoking Status: Never smoker ROS ROS ED Constitutional Constitutional ED: Denies chills or fever(s) Eyes Eyes: Denies discharge from eye(s) ENT ENT ED: Denies discharge from eye(s), rhinorrhea or sore throat Cardiovascular Cardiovascular: Denies chest pain or palpitations Respiratory/Chest Respiratory/Chest: Denies cough or dyspnea Gastrointestinal Gastrointestinal: Denies abdominal pain, nausea or vomiting Musculoskeletal Musculoskeletal: Reports extremity pain; Denies back pain or neck pain Integumentary Denies Abrasions or rash Neurologic Neurologic: Denies headache(s) or weakness Psychiatric Psychiatric: Denies anxiety or depression Allergic/Immunologic Allergic/Immunologic ED: Denies lip swelling or urticaria EXAM Physical Exam Const Vital Signs: 12/06/23 14:07 12/06/23 14:07 Temperature 95.7 F L Temperature Source Temporal Pulse Rate 91 Respiratory Rate 116 H Respiratory Effort Normal Respiratory Depth Normal Respiratory Pattern Normal Blood Pressure 183/100 H Blood Pressure Mean 127 Pulse Ox 95 Oxygen Delivery Method Room Air Room Air Positive well nourished and well developed General Appearance ED: well developed HEENT Reports normocephalic Eyes EOMs intact bilaterally Neck Neck Narrative: No c-spine tenderness. Chest Wall inspection of chest normal and palpation of chest normal Resp normal respiratory effort and clear to auscultation bilaterally Cardio regular rate and regular rhythm GI non-tender Palpation: soft Extremity Extremity Narrative: Ecchymosis and tenderness to palpation distal aspect of left foot. Minimal edema. Good cap refill and sensation distally. No significant tenderness at the ankle or knee. Neuro oriented x3 and moves all extremities Psych mental status grossly normal MDM MDM MDM Narrative Medical decision making narrative: Left foot and ankle xrays obtained to evaluate for fracture. Differential diagnosis includes sprain, strain, and contusion. Treatment and Re-Evaluation Narrative: Left foot xrays per my interpretation reveal a non-displaced transverse fracture of the 5th metatarsal midshaft. Left ankle xrays per my interpretation reveal no acute fracture. I spoke with Dr Alvarez, correctional case manager for podiatry. Patient will be placed in a walking boot and can weight bear on the heel. Patient has crutches at home to use. She also reports having pain meds at home to use as needed. She will follow-up with Dr Alvarez this week. Discharge Plan Triage Chief Complaint: Fall ED Provider: Ana Cuadra Dx/Rx/DC Orders Instructions: ED Fracture, Foot Prescriptions: No Action hydrocodone-acetaminophen [[place]] 1 EACH tablet 1 ea PO Q6H PRN PRN (Reason: Pain) buspirone 10 mg Tablet 20 mg PO TID paroxetine HCl 40 mg Tablet 40 mg PO DAILY thyroid (pork) [[facility] [employer] [facility] Thyroid] 15 mg Tablet 15 mg PO DAILY Primary Care Provider: Ed Bowman Chi Referrals: Dante Alvarez DPM [Med Staff - Active Staff] - 3-5 Days Ed Bowman Chi, MD [Primary Care Provider] - Print Language: Mohawk Disposition Disposition: Home, Self Care
[2023-12-06 15:56] VITALS: BP 135/95; PULSE 92; RESP 18; TEMP 36.8; O2SAT 97
== END 2023-12-06 15:58 | disposition home or self-care (01) ==
PROVIDERS: Emergency Provider Emergency Medicine; PCP Family Medicine Geriatric Medicine; Visit Provider Emergency Medicine
DX: S92.355A Nondisplaced fracture of fifth metatarsal bone, left foot, initial encounter for closed fracture (principal); W19.XXXA Unspecified fall, initial encounter
CPT/HCPCS: 73610; 73630; 99283

== ENCOUNTER → 2023-12-09 | Outpatient (CLI) | payer MEDICARE, SELFPAY ==
--- NOTE | 2023-12-09 17:35 | RAD_ITS ---
STUDY: X-RAY - RIGHT HAND REASON FOR EXAM: Female, 73 years old. Pain along the second third and fourth metacarpals following a fall. TECHNIQUE: 3 view(s) of the hand. COMPARISON: Comparison is made with prior study of March 23, 2023. FINDINGS: Normal radiocarpal articulation. Normal distal radioulnar joint. Normal visualized carpal bones. Normal carpal articulations Normal carpometacarpal articulation of the thumb. Normal second through fifth carpometacarpal joints. Normal metacarpi. Normal metacarpophalangeal joint of the thumb. Normal interphalangeal joint of the thumb. Normal proximal and distal phalanges of the thumb. Normal metacarpophalangeal joints of the second through fifth fingers. Nondisplaced fracture at the base of the distal phalanx of the third digit. This was seen on prior study. Normal phalanges of the second through fifth fingers. Soft tissue swelling. RAD/Hand Min 3 Views IMPRESSION: Nonacute nondisplaced fracture at the base of the distal phalanx of the third digit. Electronically Signed: Paul Jay MD at 11:10 EDT ,
== END | disposition home or self-care (01) ==
LOC: RAD 17:25
PROVIDERS: PCP Family Medicine Geriatric Medicine; Referring Provider Family Medicine Geriatric Medicine; Visit Provider Family Medicine Geriatric Medicine
DX: M79.641 Pain in right hand (principal)
CPT/HCPCS: 73130

== ENCOUNTER 2023-12-14 19:24 | Inpatient (IN) | payer MEDICARE, SELFPAY ==
[2023-12-14] VITALS (7 sets, daily range): BP systolic 116–138; BP diastolic 80–86; PULSE 93–118; RESP 20–32; TEMP 36.6–36.8; O2SAT 87–93; BMI 36.9
--- NOTE | 2023-12-14 20:37 | EKG12_ITS ---
Test Reason : CP Blood Pressure : / mmHG Vent. Rate : 123 BPM Atrial Rate : 123 BPM P-R Int : 150 ms QRS Dur : 076 ms QT Int : 324 ms P-R-T Axes : 050 -22 055 degrees QTc Int : 463 ms Sinus tachycardia with Premature atrial complexes Low voltage QRS Inferior infarct , age undetermined Abnormal ECG Confirmed by Elmo Cordova ([id number]), department editor LEYDA NICOLAS ([id number]) on 12/15/2023 2:55:03 PM Referred By: Confirmed By:Elmo Cordova
[2023-12-14 20:49] LABS: Absolute Lymphocyte Count 2.39 X10^3/uL (0.83-4.51); Absolute Neutrophil Count 10.7 X10^3/uL (2.0-7.7); Basophil# 0.07 X10^3/uL; Basophil% 0.5 % (0-1); Eosinophil# 0.02 X10^3/uL; Eosinophils% 0.1 % (0-5); Hematocrit 42.7 % (37-47); Hemoglobin 14.1 g/dL (12.0-15.0); Lymphocyte # 2.39 X10^3/ul (0.83-4.51); Lymphocyte % 15.5 % (19-41); Mean Corpuscular Hgb 29.7 pg (27.0-32.0); Mean Corpuscular Volume 89.9 fL (81-99); Mean Platelet Vol. 9.3 fl (6.2-12.0); Monocyte# 2.03 X10^3/uL; Monocyte% 13.2 % (0-10); NRBC Flagged by Analyzer 0 % (0-5); Neutrophil # 10.68 X10^3/uL (2.7-7.7); Neutrophil % 69.2 % (47-70); POSITIVE DIFFERENTIAL YES; Platelet Count 210 K/mm3 (150-450); RBC Distribution Width CV 13.8 % (11.6-14.6); RBC Distribution Width SD 45.5 fl (35.1-43.9); Red Blood Count 4.75 M/mm3 (4.2-5.4); White Blood Count 15.4 K/mm3 (4.4-11.0)
--- NOTE | 2023-12-14 20:50 | RAD_ITS ---
STUDY: X-RAY CHEST REASON FOR EXAM: Female, 73 years old. chest pain TECHNIQUE: AP portable COMPARISON: April 27, 2022 FINDINGS: Prominent interstitial markings in both lower lobes more pronounced on the right which have increased since previous study possibly inflammatory.. There is no demonstrated pleural abnormality. Normal size heart. Normal mediastinum and srinivas. Normal visualized pulmonary arteries. Mildly tortuous aortic arch and descending thoracic aorta. Normal visualized thoracic spine. Normal visualized ribs, clavicles, and shoulders. There is no demonstrated abnormality of the visualized soft tissue structures of the upper abdomen. RAD/Chest 1 View (Portable) IMPRESSION: Nonspecific bibasilar interstitial thickening more severe in the right lower lobe possibly inflammatory.. Electronically Signed: Pete Alcala MD at 21:04 EDT ,
[2023-12-14 20:51] LABS: Differential Indicated SCAN CRITERIA MET
--- NOTE | 2023-12-14 21:08 | CT_ITS ---
We are attempting to reach an attending provider to discuss findings. An addendum with communication details will be sent when the communication is complete. STUDY: CTA CHEST REASON FOR EXAM: Female, 73 years old. Hypoxia RADIATION DOSAGE (If Supplied By Facility): CTDIvol = ( 22.10 ) mGy, DLP = ( 509.24 ) mGycm TECHNIQUE: The examination was performed with the intravenous administration of IV 100mL Isovue-370. Post-processing of the angiographic images was performed, with multiplanar reformation and 3D reconstruction. Individualized dose optimization techniques were used for this CT. COMPARISON: None. FINDINGS: There is extensive clot noted within the distal right main pulmonary artery extending into the proximal branches of the right upper and middle lobes. There is clot filling the descending interlobar branch and multiple segmental as well as subsegmental vessels of the right lower lobe. There is also clot noted within the distal left pulmonary artery extending into the proximal branches of the left upper lobe and descending intralobar branch. There are also small clots within the segmental and subsegmental vessels of the left upper and lower lobes . There is no saddle embolus identified however there are findings suggestive of right ventricular strain. Normal thoracic aorta and visualized great vessels. There is no demonstrated aortic dissection. Normal heart and pericardium. Normal mediastinum. Normal hilar regions. Normal visualized trachea and bronchi. The lungs are well expanded. . There is multifocal pleural-based atelectasis in the right lower lobe which may represent changes due to pulmonary infarct. Normal chest wall structures. Dorsal spine demonstrates degenerative change Normal visualized upper abdomen. CT/CTA Chest W/WO Contrast IMPRESSION: Fairly extensive bilateral pulmonary emboli with changes suggestive of small pulmonary infarcts in the right lower lobe and probable right ventricular strain Electronically Signed: Pete Alcala MD at 21:58 EDT ,
--- NOTE | 2023-12-14 21:08 | ED.RN ---
Pt states she does not know her medications and does not have a list with her.
--- NOTE | 2023-12-14 21:08 | EX.ED.DYSGE1 ---
HPI History of Present Illness Chief Complaint: Chest Pain Narrative Narrative: 73-year-old female who denies significant past medical history, no history of COPD or CHF presents with shortness of breath, and chest pain that she has had for the last week. She relates history that a week and a half ago she broke her foot and was going to the doctor on Wednesday of last week, approximately 8 days ago, when she was caught in the rain. She underwent close on and got her feet wet. She developed a cough. She now states that she cannot take a deep breath without coughing and she feels very short of breath. She may have felt feverish today. States her chest feels tight, right in the middle, whenever she breathes then, she coughs, causing her chest pain as well. She states that when EMS arrived, they took her temperature and she did not have a fever. She is a non-smoker. 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 Father Cancer Surgical History History of partial hysterectomy History of cholecystectomy Social History Smoking Status: Never smoker ROS ROS ED ROS Narrative Constitutional: No fever, no chills. HEENT: No sore throat. No neck pain. No loss of vision. No rhinorrhea. Cardiovascular: Positive midsternal chest pain. No palpitations. No pedal edema. Respiratory: Positive cough, increasing shortness of breath. Unable to take a deep breath. Abdominal: No abdominal pain. No nausea. No vomiting. Genitourinary: No dysuria. No hematuria. Musculoskeletal: No myalgias. No arthralgias. Neurologic: No headaches. No dizziness. No lightheadedness. Skin: No rash. No change in color. Psychiatric: No depression. No anxiety. EXAM Physical Exam Narrative Exam Narrative: Afebrile. Vital signs noted. HEENT: Normocephalic. Atraumatic. PERRL, EOMI. Neck soft and supple. No point tenderness or step off. Cardiovascular: Regular rate and rhythm with intermittent tachycardia. No murmurs, rubs, or gallops appreciated. Respiratory: Positive tachypnea. Lungs clear to auscultation bilaterally. Gastrointestinal: Abdomen soft, nontender, with normoactive bowel sounds. No rebound or guarding. Neurological: Awake. Alert. Nonfocal, nonlateralizing. Skin: No rash. Normal color. No pallor. Positive ecchymosis left foot, wrapped in Freddy bandage. Musculoskeletal: No pedal edema. Full range of motion extremities. Const Vital Signs: 12/14/23 19:26 12/14/23 20:25 12/14/23 20:44 Temperature 98.2 F Temperature Source Oral Pulse Rate 93 112 H Respiratory Rate 20 H 24 H Blood Pressure 136/86 H 116/81 H Blood Pressure Mean 102 92 Pulse Ox 87 92 91 Oxygen Delivery Method Room Air Nasal Cannula Nasal Cannula Oxygen Flow Rate (L/min) 4 Fraction of Inspired Oxygen (FIO2) 4 12/14/23 21:00 12/14/23 22:00 12/14/23 22:46 Temperature 98 F Temperature Source Pulse Rate 116 H 115 H 118 H Respiratory Rate 25 H 32 H 24 H Blood Pressure 119/85 H 135/83 H 133/81 H Blood Pressure Mean 96 100 98 Pulse Ox 92 93 92 Oxygen Delivery Method Nasal Cannula Nasal Cannula Oxygen Flow Rate (L/min) 4 4 Fraction of Inspired Oxygen (FIO2) MDM MDM MDM Narrative Medical decision making narrative: In the differential diagnosis is pneumonia versus pneumothorax versus pulmonary embolism versus ACS. Nursing protocol laboratories were entered. She is currently tachycardic at 116 and she was hypoxic on room air at 87%. She does not wear oxygen at home. She does not have a history of COPD or CHF so I have low suspicion for those. Given her immobility with her reported broken foot, concern is for PE. Chest x-ray in 1 view interpreted by myself independently shows no evidence of pneumothorax or pneumonia. I reviewed the radiology report which comments on bibasilar thickening right greater than left, possibly inflammatory. I am concerned about pulmonary embolism. CTA will be obtained and reviewed. EKG was obtained and interpreted by myself independently as sinus tachycardia at 123 bpm with PACs but no acute ST changes. No STEMI. I reviewed her laboratory work and she has elevated white count of 15.4 which I think is nonspecific, hemoglobin normal at 14.1, hematocrit 42.7, platelet count normal at 210. Electrolyte panel is significant for chloride of 109 which I think is nonspecific as well. BUN of 25 and creatinine 1.07. Glucose is elevated at 127 but anion gap low at 4. I reviewed the radiology report of the CTA for pulmonary embolism and I had received a call from the radiologist. In discussion with radiology and in review of the report, patient has extensive bilateral pulmonary emboli with possible pulmonary infarction in the right lower lobe and questionable right heart strain. Her troponin is elevated at 283. I do think that this is most likely secondary to right heart strain and not non-STEMI. Hence, I did not administer aspirin, but instead she was started on heparin. PT and INR along with a PTT obtained, reviewed, and are currently normal. As she has elevated troponin, hypoxia, and pulmonary emboli with pulmonary infarction, I discussed patient with Dr. Quiroz for admission to the PCU. Currently, patient is in stable condition. History & Record Review Discussion w/independent historian: Patient Lab Data Attestation: I reviewed the patient's lab results. Labs: Laboratory Results - last 24 hr 12/14/23 12/14/23 20:40 22:11 WBC 15.4 H RBC 4.75 Hgb 14.1 Hct 42.7 MCV 89.9 MCH 29.7 MCHC 33.0 RDW Std Deviation 45.5 H RDW Coeff of Larry 13.8 Plt Count 210 MPV 9.3 Immature Gran % (Auto) 1.500 H Neut % (Auto) 69.2 Lymph % (Auto) 15.5 L [place] % (Auto) 13.2 H Eos % (Auto) 0.1 Baso % (Auto) 0.5 Absolute Neuts (auto) 10.7 H Absolute Lymphs (auto) 2.39 Nucleated RBC % 0 Differential Comment SCANNED Diff Path Review November PT 14.9 INR 1.2 APTT 28.8 Sodium 140 Potassium 4.0 Chloride 109 H Carbon Dioxide 27.0 Anion Gap 4 L BUN 25 H Creatinine 1.07 H Estim Creat Clear Calc 53.43 Est GFR (MDRD) Af Amer 64 Est GFR (MDRD) Non-Af 53 L BUN/Creatinine Ratio 23.4 H Glucose 127 H Calcium 9.0 Troponin I High Sens 283 H* Radiography Diagnostic Testing: Clinical Impression(s) from Imaging Studies Chest X-Ray 12/14/23 20:50 IMPRESSION: Nonspecific bibasilar interstitial thickening more severe in the right lower lobe possibly inflammatory.. Electronically Signed: Pete Alcala MD at 21:04 EDT , Chest CTA 12/14/23 21:08 IMPRESSION: Fairly extensive bilateral pulmonary emboli with changes suggestive of small pulmonary infarcts in the right lower lobe and probable right ventricular strain Electronically Signed: Pete Alcala MD at 21:58 EDT , ADDENDUM: 12/14/23 2210 IMPRESSION: Fairly extensive bilateral pulmonary emboli with changes suggestive of small pulmonary infarcts in the right lower lobe and probable right ventricular strain N.B. : The above Results were Read Back by Pete Alcala MD to Chance Nieto MD, and understanding confirmed on 12/14/2023 22:03:32 (ET). Electronically Signed: Pete Alcala MD at 21:58 EDT , Discharge Plan Dx/Rx/DC Orders Clinical Impression: Pulmonary emboli, Hypoxia, Elevated troponin, Pulmonary embolism and infarction Disposition Disposition: Acute Care [facility]
[2023-12-14 21:25] LABS: Anion Gap 4 (5-15); BUN 25 mg/dL (7-18); BUN/Creat Ratio 23.4 RATIO (10-20); Chloride 109 mmol/L (98-107); Creatinine, Serum 1.07 mg/dL (0.55-1.02); EST Glomerular Filtration Rate 53 mL/min (>60); Est Glom Filt Rate - Afr Amer 64 mL/min (>60); Estimated Creatinine Clearance 53.43 ml/min; Glucose 127 mg/dL (74-106); Sodium Level 140 mmol/L (136-145); Troponin-I HS (w/2H Reflex) 283 pg/mL (3.0-54.0)
[2023-12-14 21:27] LABS: Differential Comment SCANNED
[2023-12-14] MEDS: Heparin Injection (Vial) 5,000 UNIT/ML VIAL 4000 UNIT IV (22:18)
[2023-12-14] MEDS: HEPARIN/D5w 25,000 UNITS 25,000 UNITS/250 ML IV.SOLN. 10 UNITS CONT INF (22:18)
[2023-12-14 22:30] LABS: International Normalized Ratio 1.2; Prothrombin Time (Protime)PT. 14.9 SECONDS (11.7-14.9)
[2023-12-14 22:31] LABS: Partial Thromboplast Time 28.8 Seconds (24.1-36.2)
[2023-12-14 22:46] LABS: Reflex Troponin-HS? (from REC) Y
--- NOTE | 2023-12-14 22:47 | HP.PCM.HOS_ITS ---
[facility] - General General Date of Admission: 12/14/23 Date of Service: 12/14/23 Chief Complaint: Chest Pain, Cough and SOB. HPI Narrative BARBARA HERNANDEZ, is a 73 F with a past medical history of hypothyroidism, obesity; with BMI of 37 this admission, history of syncope (2021), depression with anxiety, fibromyalgia, history of renal calculi, history of cholecystectomy, history of partial hysterectomy, OA and recent Left foot Fracture on December 06, 2023 after a mechanical fall at home who presents to [facility] ER complaining of chest pain, cough and SOB. Ms. hernandez reports her symptoms began approximately 7 days prior to admission on Thursday, December 07, 2023 when she was going to the machine sorter and got caught in the rain causing her to get her Left foot wet with left foot still bruised and swollen with Freddy wrap in place. Then earlier this afternoon she was attempting to walk up a flight of steps at her home when she developed severe shortness of breath at rest accompanied by significant chest tightness and nonproductive cough. She also admits to generalized chest tightness that seems to emanate from the center of her chest with chest pain that is made worse with deep breathing. She then activated EMS to be brought in for further evaluation and treatment. There is no report of fever, chills, nausea, vomiting, near syncope, syncope or diaphoresis and she denies ever having been placed on DVT prophylaxis. In the ER she underwent a CTA of the chest that was positive for numerous bilateral pulmonary emboli with evidence of pulmonary infarctions in the RLL and concern for Right heart strain confirmed by elevated initial troponin of 283 pg/mL present on admission with recent decreased mobility after Left foot fracture with suspected residual DVT in the Left lower extremity complicated by clinical evidence of acute respiratory insufficiency with and she was then admitted to the PCU for ongoing care for stay that is expected to extend beyond 2 midnights. 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 Father Cancer Surgical History History of partial hysterectomy History of cholecystectomy Social History Smoking Status: Never smoker ROS ROS Narrative Review of systems: General: Patient denies fever or chills. HENT: Denies headache, denies stuffy nose, denies sore throat EYES: Denies changes in vision or discharge from eyes. Resp: Patient admits to midsternal chest pain with tightness made worse with deep breathing. Cardiac: Patient admits to midsternal chest pain. She denies palpitations or pedal edema. GI: Denies abdominal pain, denies changes in bowel, denies nausea or vomiting. : Denies changes in urination Extremity: Patient admits to recent left foot fracture as per HPI. Musculoskeletal: Patient denies arthralgias or myalgias Neuro: Patient denies headache, paresthesias or focal neurologic weakness. Heme: Denies any bleeding or bruising Skin: Denies rashes Psychiatric: No complaints voiced related to uncontrolled depression or anxiety. Endocrine: No polyuria, polydipsia or polyphagia. The rest of the 14 point ROS was negative except for positives in HPI. Vital Signs Vital Signs Vital Signs: 12/14/23 19:26 12/14/23 20:25 12/14/23 20:44 Temperature 98.2 F Temperature Source Oral Pulse Rate 93 112 H Respiratory Rate 20 H 24 H Blood Pressure 136/86 H 116/81 H Blood Pressure Mean 102 92 Pulse Ox 87 92 91 Oxygen Delivery Method Room Air Nasal Cannula Nasal Cannula Oxygen Flow Rate (L/min) 4 Fraction of Inspired Oxygen (FIO2) 4 12/14/23 21:00 12/14/23 22:00 12/14/23 22:46 Temperature 98 F Temperature Source Pulse Rate 116 H 115 H 118 H Respiratory Rate 25 H 32 H 24 H Blood Pressure 119/85 H 135/83 H 133/81 H Blood Pressure Mean 96 100 98 Pulse Ox 92 93 92 Oxygen Delivery Method Nasal Cannula Nasal Cannula Oxygen Flow Rate (L/min) 4 4 Fraction of Inspired Oxygen (FIO2) Weight Weight: 222 lb 1.6 oz Body Mass Index (BMI) 36.9 Physical Exam Const alert, oriented x3, average body habitus and healthy appearing Constitutional Narrative: [id number] discomfort noted. General Appearance: cooperative HEENT normocephalic, head/scalp atraumatic, hearing grossly normal bilaterally and moist oral mucous membranes Eyes PERRL and EOMs intact bilaterally Neck no lymphadenopathy and supple Resp Resp Narrative: Tachypnea noted with lungs clear to auscultation bilaterally. Cardio regular rate and regular rhythm GI normal to inspection, nondistended, normoactive bowel sounds, soft to palpation, non-tender and non-distended GI Narrative: Obese. Extremity normal to inspection and full ROM Extremity Narrative: Left foot noted to be ecchymotic and wrapped in Freddy bandage. Skin Skin Narrative: Patient has ecchymosis of the Left ankle/foot with mild swelling Left>Right LE. Neuro oriented x3, CN's II-XII intact bilaterally, moves all extremities and no focal motor deficits Sensorium / Orientation: awake, alert, oriented to person, oriented to place and oriented to time Speech: speech normal Psych affect normal Results Medical Records Data Attestation: I reviewed the patient's medical records Lab / Micro Data Attestation: I reviewed the patient's lab results. 12/15/23 03:10 12/14/23 20:40 Labs: Laboratory Results - last 24 hr 12/14/23 20:40: WBC 15.4 H, RBC 4.75, Hgb 14.1, Hct 42.7, MCV 89.9, MCH 29.7, MCHC 33.0, RDW Std Deviation 45.5 H, RDW Coeff of Larry 13.8, Plt Count 210, MPV 9.3, Immature Gran % (Auto) 1.500 H, Neut % (Auto) 69.2, Lymph % (Auto) 15.5 L, [place] % (Auto) 13.2 H, Eos % (Auto) 0.1, Baso % (Auto) 0.5, Absolute Neuts (auto) 10.7 H, Absolute Lymphs (auto) 2.39, Nucleated RBC % 0, Differential Comment SCANNED, Diff Path Review November, Sodium 140, Potassium 4.0, Chloride 109 H, Carbon Dioxide 27.0, Anion Gap 4 L, BUN 25 H, Creatinine 1.07 H, Estim Creat Clear Calc 53.43, Est GFR (MDRD) Af Amer 64, Est GFR (MDRD) Non-Af 53 L, B UN/Creatinine Ratio 23.4 H, Glucose 127 H, Calcium 9.0, Troponin I High Sens 283 H* 12/14/23 22:11: PT 14.9, INR 1.2, APTT 28.8 Imaging Radiology Impression Chest X-Ray 12/14/23 20:50 IMPRESSION: Nonspecific bibasilar interstitial thickening more severe in the right lower lobe possibly inflammatory.. Electronically Signed: Pete Alcala MD at 21:04 EDT Reading Location ID and State: [facility] / [place] Tel [phone], Service support , Chest CTA 12/14/23 21:08 IMPRESSION: Fairly extensive bilateral pulmonary emboli with changes suggestive of small pulmonary infarcts in the right lower lobe and probable right ventricular strain Electronically Signed: Pete Alcala MD at 21:58 EDT , ADDENDUM: 12/14/23 2210 IMPRESSION: Fairly extensive bilateral pulmonary emboli with changes suggestive of small pulmonary infarcts in the right lower lobe and probable right ventricular strain N.B. : The above Results were Read Back by Pete Alcala MD to Chance Nieto MD, and understanding confirmed on 12/14/2023 22:03:32 (ET). Electronically Signed: Pete Alcala MD at 21:58 EDT , Assessment & Plan Assessment/Plan (1) Pulmonary embolism and infarction: (2) Elevated troponin: (3) Hypoxia: (4) Fracture of left foot: QUALIFIERS: Encounter type: sequela Fracture type: closed Q ualified Code(s): S92.902S - Unspecified fracture of left foot, sequela (5) Obesity (BMI 30-39.9): PLAN: Plan 1. CTA of the chest that was positive for numerous bilateral pulmonary emboli with evidence of pulmonary infarctions in the RLL - Admit to PCU. Continue IV heparin per PE protocol. Check bilateral lower extremity Dopplers to evaluate for residual clot burden. Give Tylenol as needed for [id number] (level 1- 5 out of 10) pain or fever. Give morphine IV as needed for severe (level 6-10 out of 10) pain. 2. Right heart strain confirmed by elevated initial troponin of 283 pg/mL present on admission due to #1 - Add BASA and statin. Serialize troponin. Check echocardiogram to objectively evaluate for evidence of Right heart strain. 3. Recent Left foot Fracture on December 06, 2023 after a mechanical fall at home with no record of outpatient DVT prophylaxis precipitating #1 & #2 - Noted. LE Doppler pending in a.m. to evaluate for residual clot burden. 4. Obesity; with BMI of 37 this admission adding to the pathology of #1 - #3 - Weight loss will be recommended. This adds to the complexity of her case and may hamper recovery. 5. Hypothyroidism - Resume thyroid supplementation and check TSH. 6. History of syncope (2021) - Noted. 7. Depression with anxiety - Continue home regimen plus give low-dose as needed Xanax for breakthrough symptoms. 8. Fibromyalgia - Stable. 9. History of renal calculi - Noted. 10. History of cholecystectomy - Noted. 11. History of partial hysterectomy - Noted. 12. OA - Give Tylenol as needed. 13. DVT prophylaxis - Patient suspected to have DVT present on admission with the patient already on IV heparin for #1 & #2. Total time: Approximately 75 minutes. Charges/Coding Visit Charges Inpatient E&M: 23052 Init Hosp L3
[2023-12-14 23:45] LABS: Troponin-I HS 399 pg/mL (3.0-54.0)
[2023-12-15] VITALS (11 sets, daily range): BP systolic 112–138; BP diastolic 57–81; PULSE 86–123; RESP 18–32; TEMP 36.4–37; O2SAT 92–96; BMI 36.0; BMI 36.2
--- NOTE | 2023-12-15 00:55 | ECHOCS_ITS ---
Reason For Study: SOB, chest pain Procedure This was a 2D Doppler, Color Flow transthoracic echocardiogram. The study was technically difficult. Exam performed portable in patient room. Left Ventricle Normal left ventricle. Mobile calcified mass noted in the apex of unclear etiology. Left ventricular systolic function is normal. The estimated ejection fraction is 60 %. No regional wall motion abnormalities noted. Right Ventricle Mildly dilated right ventricle. Mild to moderate global right ventricular systolic dysfunction. Mitral Valve Normal mitral valve. Aortic Valve Trisinus/trileaflet aortic valve. Mild focal aortic valve calcification. Great Vessels Normal aortic root. Pericardium/Pleural No pericardial effusion. Medication Diluted definity 3ml given slow IV push to enhance endocardial definition. MMode/2D Measurements & Calculations LVIDd: 3.3 cm IVSd: 1.1 cm LAV(MOD-bp): 25.5 ml LVIDs: 2.1 cm LVPWd: 0.84 cm LAV(MOD-bp) Indexed: 12.5 ml/m2 RVDd: 4.3 cm FS: 35.6 % LAV(MOD-sp2): 33.1 ml LAV(MOD-sp4): 19.1 ml LVAd ap4: 17.7 cm2 LVAd ap2: 19.1 cm2 SV(MOD-sp4): 24.2 ml LVLd ap4: 6.1 cm LVLd ap2: 6.7 cm EDV(MOD-sp4): 42.2 ml EDV(MOD-sp2): 45.7 ml EDV(sp4-el): 43.8 ml EDV(sp2-el): 46.3 ml LVAs ap4: 10.8 cm2 LVAs ap2: 9.4 cm2 LVLs ap4: 5.7 cm LVLs ap2: 5.3 cm ESV(MOD-sp4): 18.0 ml ESV(MOD-sp2): 13.9 ml ESV(sp4-el): 17.3 ml ESV(sp2-el): 14.0 ml EF(MOD-sp4): 57.4 % EF(MOD-sp2): 69.6 % EF(sp4-el): 60.6 % SV(MOD-sp2): 31.8 ml SV(sp4-el): 26.6 ml LA A4 area: 10.3 cm2 LA dimension(2D): 3.2 cm RA A4 area: 12.3 cm2 TAPSE: 1.2 cm Time Measurements MV dec time: 0.17 sec Doppler Measurements & Calculations MV E max nabor: 46.1 cm/sec Lat Peak E' Nabor: 6.4 cm/sec Med Peak E' Nabor: 4.9 cm/sec E/E' lat: 7.2 E/E' med: 9.4 Ao V2 max: 179.5 cm/sec LV V1 max: 112.6 cm/sec PA V2 max: 78.7 cm/sec Ao max P.9 mmHg LV V1 max P.2 mmHg PA max PG (full): 1.5 mmHg Ao V2 mean: 123.5 cm/sec LV V1 mean P.7 mmHg Ao mean P.0 mmHg LV V1 mean: 77.6 cm/sec Ao V2 VTI: 25.7 cm LV V1 VTI: 19.7 cm AV (velocity ratio): 0.77 TR max nabor: 245.5 cm/sec TR max P.1 mmHg ECHO/Echo Complete W/ Contrast Interpretation Summary Normal left ventricle. Left ventricular systolic function is normal. The estimated ejection fraction is 60 %. Mildly dilated right ventricle. Mild to moderate global right ventricular systolic dysfunction. Mobile calcified mass noted in the apex of unclear etiology. Probably part of h er false tendon. Ordering Physician: Warren Terry Referring Physician: Ed Bowman Chi Performed By: Lakeshia Pettit RDCS
--- NOTE | 2023-12-15 00:55 | VDLE_ITS ---
Reason For Study: Pulmonary embolism RIGHT LEFT GSV is normal. GSV is normal. CFV is compressible, spontaneous, phasic, CFV is compressible, spontaneous, phasic, competent and demonstrates normal competent, and demonstrates normal augmentation. augmentation. FV is compressible, spontaneous, phasic, FV is compressible, spontaneous, phasic, competent and demonstrates normal competent and demonstrates normal augmentation. augmentation. POP V is compressible, spontaneous, phasic, POP V is compressible, spontaneous, phasic, competent and demonstrates normal competent and demonstrates normal augmentation. augmentation. T/P Trunk is compressible. T/P Trunk is compressible. PTV is compressible. PTV is compressible. RT PerV is compressible. LT PerV is compressible. Procedure This is a venous duplex using B-mode, color flow and spectral Doppler. Exam performed portable in patient room. The study was technically difficult. A preliminary report was called and/or faxed to [facility]. VL/Venous Duplex US - Eben Extrem Interpretation Summary Deep veins of the bilateral lower extremities are patent and compressible segme ntally. There is no evidence of bilateral lower extremity deep vein thrombosis. The bilateral great saphenous veins appear patent and compressible segmentally. Ordering Physician: Warren Terry Referring Physician: Ed Bowman Chi Performed By: Roseline Herr RVT
[2023-12-15] MEDS: ALPRAZolam 0.25 MG Tablet 0.125 MG PO (01:47)
[2023-12-15] MEDS: Atorvastatin Calcium 20 MG Tablet PO ×2 (01:47→22:04)
[2023-12-15] MEDS: 0.9% Normal Saline (1000mL) 1,000 ML 60 ML IV ×2 (01:51→16:57)
[2023-12-15 03:39] LABS: Absolute Lymphocyte Count 2.58 X10^3/uL (0.83-4.51); Absolute Neutrophil Count 9.9 X10^3/uL (2.0-7.7); Basophil# 0.08 X10^3/uL; Basophil% 0.5 % (0-1); Eosinophil# 0.03 X10^3/uL; Eosinophils% 0.2 % (0-5); Hematocrit 43.4 % (37-47); Hemoglobin 13.6 g/dL (12.0-15.0); Lymphocyte # 2.58 X10^3/ul (0.83-4.51); Lymphocyte % 17.5 % (19-41); Mean Corp Hgb Conc 31.3 g/dL (32-36); Mean Corpuscular Hgb 29.5 pg (27.0-32.0); Mean Corpuscular Volume 94.1 fL (81-99); Mean Platelet Vol. 9.3 fl (6.2-12.0); Monocyte# 1.87 X10^3/uL; Monocyte% 12.7 % (0-10); NRBC Flagged by Analyzer 0 % (0-5); Neutrophil % 67.4 % (47-70); POSITIVE DIFFERENTIAL YES; Platelet Count 228 K/mm3 (150-450); RBC Distribution Width CV 14.2 % (11.6-14.6); RBC Distribution Width SD 49.1 fl (35.1-43.9); Red Blood Count 4.61 M/mm3 (4.2-5.4); White Blood Count 14.7 K/mm3 (4.4-11.0)
[2023-12-15 04:05] LABS: Differential Indicated SCAN CRITERIA MET
[2023-12-15] MEDS: busPIRone 5 MG Tablet 20 MG PO ×3 (05:28→22:04)
[2023-12-15 06:27] LABS: Partial Thromboplast Time 58.6 Seconds (24.1-36.2)
[2023-12-15 07:17] LABS: Differential Comment SCANNED
[2023-12-15 08:27] LABS: Cholesterol 161 mg/dL (200); High Density Lipoprotein 35 mg/dL; Triglycerides 116 mg/dL; Troponin-I HS 322 pg/mL (3.0-54.0); Very Low Density Lipoprotein 23 mg/dL (5-40)
[2023-12-15 10:44] LABS: Pathologist Review Reviewed
[2023-12-15 10:45] LABS: Pathologist Review Reviewed
--- NOTE | 2023-12-15 11:00 | PN.HOSP_ITS ---
Subjective Subjective Doing well, still requiring about 5 L nasal cannula Objective Data Objective Data Vital Signs: Vital Signs Temp Pulse Resp BP Pulse Ox O2 Del Method O2 Flow Rate 98.4 F 99 18 137/81 H 94 Nasal Cannula 5 12/15/23 03:50 12/15/23 03:50 12/15/23 03:50 12/15/23 03:50 12/15/23 07:59 12/15/23 08:46 12/15/23 08:46 FiO2 4 12/14/23 20:44 Oxygen Flow Rate (L/min) 5 Oxygen Delivery Method Nasal Cannula Weight: 217 lb 13.067 oz Body Mass Index (BMI) 36.2 Intake & Output: Intake and Output for Last 24 Hours 12/14/23 12/15/23 12/16/23 03:59 03:59 03:59 Intake Total 82.5 / 82.5 Balance 82.5 / 82.5 Lab / Micro Data 12/15/23 03:10 12/14/23 20:40 Labs: Laboratory Results - last 24 hr 12/14/23 20:40: WBC 15.4 H, RBC 4.75, Hgb 14.1, Hct 42.7, MCV 89.9, MCH 29.7, MCHC 33.0, RDW Std Deviation 45.5 H, RDW Coeff of Larry 13.8, Plt Count 210, MPV 9.3, Immature Gran % (Auto) 1.500 H, Neut % (Auto) 69.2, Lymph % (Auto) 15.5 L, [place] % (Auto) 13.2 H, Eos % (Auto) 0.1, Baso % (Auto) 0.5, Absolute Neuts (auto) 10.7 H, Absolute Lymphs (auto) 2.39, Nucleated RBC % 0, Differential Comment SCANNED, Diff Path Review Reviewed, Sodium 140, Potassium 4.0, Chloride 109 H, Carbon Dioxide 27.0, Anion Gap 4 L, BUN 25 H, Creatinine 1.07 H, Estim Creat Clear Calc 53.43, Est GFR (MDRD) Af Amer 64, Est GFR (MDRD) Non-Af 53 L, B UN/Creatinine Ratio 23.4 H, Glucose 127 H, Calcium 9.0, Troponin I High Sens 283 H* 12/14/23 22:11: PT 14.9, INR 1.2, APTT 28.8 12/14/23 23:00: Troponin I High Sens 399 H* 12/15/23 03:10: WBC 14.7 H, RBC 4.61, Hgb 13.6, Hct 43.4, MCV 94.1, MCH 29.5, M CHC 31.3 L D, RDW Std Deviation 49.1 H, RDW Coeff of Larry 14.2, Plt Count 228, MPV 9.3, Immature Gran % (Auto) 1.700 H, Neut % (Auto) 67.4, Lymph % (Auto) 17.5 L, [place] % (Auto) 12.7 H, Eos % (Auto) 0.2, Baso % (Auto) 0.5, Absolute Neuts (auto) 9.9 H, Absolute Lymphs (auto) 2.58, Nucleated RBC % 0, Differential Comment SCANNED, Diff Path Review Reviewed, Troponin I High Sens 322 H*, Triglycerides 116, Cholesterol 161, LDL Cholesterol 103, VLDL Cholesterol 23, H DL Cholesterol 35 L 12/15/23 04:21: APTT 58.6 H Radiography Diagnostic Testing: Radiology Impression Chest X-Ray 12/14/23 20:50 IMPRESSION: Nonspecific bibasilar interstitial thickening more severe in the right lower lobe possibly inflammatory.. Electronically Signed: Pete Alcala MD at 21:04 EDT Reading Location ID and State: [facility] / [place] Tel [phone], Service support , Chest CTA 12/14/23 21:08 IMPRESSION: Fairly extensive bilateral pulmonary emboli with changes suggestive of small pulmonary infarcts in the right lower lobe and probable right ventricular strain Electronically Signed: Pete Alcala MD at 21:58 EDT , ADDENDUM: 12/14/23 2210 IMPRESSION: Fairly extensive bilateral pulmonary emboli with changes suggestive of small pulmonary infarcts in the right lower lobe and probable right ventricular strain N.B. : The above Results were Read Back by Pete Alcala MD to Chance Nieto MD, and understanding confirmed on 12/14/2023 22:03:32 (ET). Electronically Signed: Pete Alcala MD at 21:58 EDT Reading Location ID and State: [facility] / [place] Tel , Service support , Physical Exam Narrative General: Alert, Oriented x3, Cooperative, No apparent distress HEENT: Atraumatic, PERRLA, EOMI, Normocephalic Oral: Moist Mucosa Neck: Supple, No JVD Lungs: Diminished, Normal air movement, No rhonchi, No wheeze, No rales Cardiovascular: Regular rate, Regular Rhythm, Normal S1, Normal S2, No murmurs Abdomen: Soft, Non Tender, Non-Distended, No Hepato-splenomegaly Extremities: No edema, Capillary Refill Less than 3 Seconds Skin: No rashes, No breakdown Musculoskeletal: No Tenderness to Palpation of Joints or Extremities Neurological: No focal neurological deficits, Motor Exam 5/5 strength throughout, Sensory exam intact to light touch and pain Psych/Mental Status: Normal Affect, Appropriate Assessment & Plan Assessment/Plan (1) Pulmonary embolism and infarction: (2) Elevated troponin: (3) Hypoxia: (4) Fracture of left foot: QUALIFIERS: Encounter type: sequela Fracture type: closed Q ualified Code(s): S92.902S - Unspecified fracture of left foot, sequela (5) Obesity (BMI 30-39.9): PLAN: Plan 1. Bilateral pulmonary embolisms ? Will have her follow-up with hematology as an outpatient ? Continue with the heparin drip ? She did have an elevated troponin and was tachycardic consistent with right heart strain however an echo is pending to confirm right heart strain ? Can likely be transition to oral Eliquis tomorrow, will discontinue aspirin ? Dopplers were done and pending 2. Hypothyroidism ? Stable ? Continue with Synthroid 3. Anxiety/depression ? Stable ? Continue with her home medications DVT: Heparin drip Charges/Coding Visit Charges Inpatient E&M: 04129 Subs Hosp L2
[2023-12-15 11:32] LABS: ALB/GLOB Ratio 0.8 RATIO (0.9-2.4); AST(SGOT) 29 U/L (15-37); Alanine Aminotransfer ALT/SGPT 22 U/L (13-56); Albumin, Serum 2.8 g/dL (3.2-5.0); Alkaline Phosphatase 86 U/L (45-117); Anion Gap 10 (5-15); BUN 25 mg/dL (7-18); BUN/Creat Ratio 22.5 RATIO (10-20); Calcium,Total 8.8 mg/dL (8.5-10.1); Chloride 110 mmol/L (98-107); Creatinine, Serum 1.11 mg/dL (0.55-1.02); EST Glomerular Filtration Rate 51 mL/min (>60); Est Glom Filt Rate - Afr Amer 62 mL/min (>60); Estimated Creatinine Clearance 50.96 ml/min; Globulin 3.7 g/dL (2.2-4.2); Glucose 121 mg/dL (74-106); Magnesium 2.4 mg/dL (1.6-2.6); Phosphorus 3.3 mg/dL (2.5-4.9); Potassium 3.9 mmol/L (3.5-5.1); Protein, Total 6.5 g/dL (6.4-8.2); Sodium Level 140 mmol/L (136-145); Thyroid Stim Hormone (TSH) 0.58 uIU/mL (0.358-3.74)
[2023-12-15] MEDS: Paroxetine 20 MG Tablet 40 MG PO (11:39)
[2023-12-15] MEDS: Thyroid 15 MG Tablet PO (11:40)
--- NOTE | 2023-12-15 12:20 | CASEMGMT ---
MEY SARGENT Assessment Face to Face with patient for initial transition planning/care coordination assessment. MEY SARGENT introduced self and role at [facility], pt voices understanding. Pt is A&Ox4 and is resting comfortably in bed and is calm. Care providers, pharmacy, and demographics verified. Admitting dx: Multiple BL PEs LACE Strata: 1 PCP: Colby Specialists: Denies Preferred Pharmacy: [facility] Insurance: MMO MCR Prescription Benefit: Yes LNOK: Hardeep Glass (Son) Living Arrangements: Pt lives alone in a 2 story home with a basement and handrails throughout. ADLs/IADLs: States ind normally. Transportation: Self DME: Crutches. Boot. FWW. Shower GB. Pt is currently requiring additional oxygen. A verbal list of local in-network DME companies provided to the pt at this time. Pt states that she would like to use [facility] in the case that she goes home with oxygen. HHC/SNF: Denies history. Pt states interest in TCU Pt?s goal: TCU Plan: Pt states that she would like to go to the TCU after DC from the floor. Pt states that Dr. Bowman is her PCP. If pt does not qualify for TCU, care management will need to reevaluate as the pt states that she would not like to go to another SNF. Pt may benefit from HHC or OP therapy if warranted. ROSETTA/SW to follow pt progression in the hospital to see what the pt best qualifies for moving forward. Jazmin Alberto RN, CM
[2023-12-15 13:50] LABS: Partial Thromboplast Time 53.9 Seconds (24.1-36.2)
[2023-12-15] MEDS: 0.9% Saline Lock 10 ML Syringe IV (14:11)
[2023-12-15] MEDS: Morphine 2 MG/ML Syringe IV ×2 (14:11→18:35)
[2023-12-15 20:46] LABS: Partial Thromboplast Time 47.8 Seconds (24.1-36.2)
[2023-12-15] MEDS: MELATONIN 3 MG TABLET PO (22:04)
[2023-12-15] MEDS: HEPARIN/D5w 25,000 UNITS 25,000 UNITS/250 ML IV.SOLN. 12 UNITS CONT INF (22:05)
[2023-12-16] VITALS (7 sets, daily range): BP systolic 132–154; BP diastolic 74–99; PULSE 91–96; RESP 16–18; TEMP 36.2–36.9; O2SAT 84–97; BMI 36.3
[2023-12-16 03:16] LABS: Absolute Lymphocyte Count 2.51 X10^3/uL (0.83-4.51); Absolute Neutrophil Count 9.1 X10^3/uL (2.0-7.7); Basophil# 0.05 X10^3/uL; Basophil% 0.4 % (0-1); Eosinophil# 0.12 X10^3/uL; Eosinophils% 0.9 % (0-5); Hematocrit 37.7 % (37-47); Hemoglobin 12.4 g/dL (12.0-15.0); Lymphocyte # 2.51 X10^3/ul (0.83-4.51); Lymphocyte % 18.8 % (19-41); Mean Corp Hgb Conc 32.9 g/dL (32-36); Mean Corpuscular Hgb 29.8 pg (27.0-32.0); Mean Corpuscular Volume 90.6 fL (81-99); Mean Platelet Vol. 9.6 fl (6.2-12.0); Monocyte# 1.42 X10^3/uL; Monocyte% 10.6 % (0-10); NRBC Flagged by Analyzer 0 % (0-5); Neutrophil # 9.05 X10^3/uL (2.7-7.7); Neutrophil % 67.6 % (47-70); Platelet Count 198 K/mm3 (150-450); RBC Distribution Width CV 14.3 % (11.6-14.6); RBC Distribution Width SD 47.4 fl (35.1-43.9); Red Blood Count 4.16 M/mm3 (4.2-5.4); White Blood Count 13.4 K/mm3 (4.4-11.0)
[2023-12-16 03:33] LABS: Partial Thromboplast Time 60.3 Seconds (24.1-36.2)
[2023-12-16 03:58] LABS: Anion Gap 6 (5-15); BUN 35 mg/dL (7-18); Calcium,Total 8.5 mg/dL (8.5-10.1); Chloride 110 mmol/L (98-107); Creatinine, Serum 1.03 mg/dL (0.55-1.02); EST Glomerular Filtration Rate 56 mL/min (>60); Est Glom Filt Rate - Afr Amer 67 mL/min (>60); Estimated Creatinine Clearance 54.98 ml/min; Glucose 157 mg/dL (74-106); Potassium 3.5 mmol/L (3.5-5.1); Sodium Level 139 mmol/L (136-145)
[2023-12-16] MEDS: busPIRone 5 MG Tablet 20 MG PO ×2 (05:05→14:17)
[2023-12-16] MEDS: Paroxetine 20 MG Tablet 40 MG PO (08:47)
[2023-12-16] MEDS: 0.9% Normal Saline (1000mL) 1,000 ML 60 ML IV (08:49)
[2023-12-16 10:23] LABS: Partial Thromboplast Time 52.8 Seconds (24.1-36.2)
[2023-12-16] MEDS: Thyroid 15 MG Tablet PO (10:51)
--- NOTE | 2023-12-16 11:43 | PCM.DC ---
Discharge Instructions Diet Discharge Diet: No restrictions Activity Discharge Activity: Return to Normal Activity Weight Bearing Status: Partial weight bearing (on left heel) Dressing / Incision Call your doctor if you observe: Fever of 101 or Higher, Shortness of breath, Dizziness, Fainting spells, Swelling in the ankles, Chest pain and Increased palpitations (irregular heartbeat) Follow Up Care Test Results: Test results from this visit will be discussed in further detail at your follow-up appointment, if applicable. 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
--- NOTE | 2023-12-16 12:20 | PHA.DC_ITS ---
Pharmacy [facility] has performed discharge medication reconciliation and counseling for this patient. The patient's discharge medication list was reviewed for discrepancies and discrepancies were resolved. The patient was counseled on the following discharge medications and changes in medications for homegoing were reviewed. 1. DHRUV The Reason for Use, instructions for use, and potential side effects were reviewed for all new medications. The patient's questions regarding all of their medications were answered. The patient was able to verbally demonstrate an understanding of their discharge medications. 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
--- NOTE | 2023-12-16 12:20 | CASEMGMT ---
Order for DC placed. SW and OT state that the pt is needing to be seen by OT first, prior to DC. This is in regard to possibly qualifying for TCU. Will continue to follow.
[2023-12-16] MEDS: APIXABAN 5 MG TABLET 10 MG PO (13:21)
--- NOTE | 2023-12-16 13:45 | CASEMGMT ---
Order for DC placed. OT states the the pt is cleared to DC home and would recommend HHC. Pt also has a new Rx for Eliquis. TC to [facility] and the pharmacist states that the medication is 84$ after insurance. The pharmacist states that they would be able to use the free trial card if the pt brings this into the pharmacy. RN CM to pt room at this time. Pt states that she cannot afford the medication. Pt educated on the free trial card and that she would only be able to use this once. Pt states understanding and wishes to utilize. Free trial card given to the pt. This RN also talked to the pt about HHC. Pt states that she would like HHC set up at home. Pt denies wanting to see a list of local in-network HHC companies and states that she would like to go through [facility]. Pt educated that Dr. Bowman likes to see his pts prior to HH starting. Pt states that she would be agreeable to seeing her PCP prior to HH starting. TC to Dr. Bowman's office and they state that the MD will sign off on HHC and that he will see the pt tomorrow morning at 1040. Pt updated and in agreeance. TC to [facility] and referral made to [facility] for SN, PT, and OT. [facility] states that they can accept for SOC tentatively Wednesday. Pt also qualifies for new home oxygen (2L Continuous and 4L with exertion). Rx signed by Dr. Asencio. Order and O2 testing sent to [facility] via email and [employer]. O2 Tank taken from stock to pt room at this time. Pt educated to call [facility] once she arrives home so they can deliver the oxygen concentrator and appropriate equipment. Pt states understanding. Pt denies further questions or concerns at this time. Pt does have this RN CM card in the case that further concerns arise. CM DC information/ plan updated. Pt RN notified of plan.
--- NOTE | 2023-12-16 13:46 | PCM.DC.SUM ---
Providers Date of Admission: 12/14/23 Primary Care Physician: Dr. Ed Bowman MD Reason For Visit: MULTIPLE BILATERAL PES WITH PUMONARY INFACTION AND Diagnosis Discharge Diagnosis (1) Pulmonary embolism and infarction: Status: Acute Code(s): I26.99 - Other pulmonary embolism without acute cor pulmonale (2) Elevated troponin: Status: Acute Code(s): R79.89 - Other specified abnormal findings of blood chemistry (3) Hypoxia: Status: Acute Code(s): R09.02 - Hypoxemia (4) Fracture of left foot: Status: Acute Code(s): S92.902A - Unspecified fracture of left foot, initial encounter for closed fracture Qualifiers: Encounter type: sequela Fracture type: closed Qualified Code(s): S92.902S - Unspecified fracture of left foot, sequela (5) Obesity (BMI 30-39.9): Status: Acute Code(s): E66.9 - Obesity, unspecified Medications at Discharge Home Medications hydrocodone-acetaminophen 5-325mg 5mg-325mg ([place]) 1 ea PO Q6H PRN PRN Pain 10/12/17 buspirone 10 mg tablet 20 mg PO TID anxiety 04/27/22 paroxetine HCl 40 mg tablet 40 mg PO DAILY depression 04/27/22 thyroid (pork) 15 mg 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) 15 mg PO DAILY Thyroid 04/27/22 doxepin 50 mg capsule 50 mg PO QHS anxiety 12/15/23 hydrocodone 7.5 mg-acetaminophen 325 mg tablet 1 tab PO TID PRN PRN pain 12/15/23 levothyroxine 25 mcg tablet 25 mcg PO DAILY thyroid 12/15/23 tolterodine 2 mg tablet 2 mg PO QHS over active bladder 12/15/23 apixaban 5 mg (74 tabs) tablets in a dose pack (Eliquis DVT-PE Treat 30D Start) 5 mg PO BID #74 tabs 12/16/23 Hospital Course Operations None Procedures 2-D Echocardiogram Summary of Care Provided Minutes Spent on Discharge: 34 Hospital Course: Per HPI: BARBARA HERNANDEZ, is a 73 F with a past medical history of hypothyroidism, obesity; with BMI of 37 this admission, history of syncope (2021), depression with anxiety, fibromyalgia, history of renal calculi, history of cholecystectomy, history of partial hysterectomy, OA and recent Left foot Fracture on December 06, 2023 after a mechanical fall at home who presents to [facility] ER complaining of chest pain, cough and SOB. Ms. 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 Then earlier this afternoon she was attempting to walk up a flight of steps at her home when she developed severe shortness of breath at rest accompanied by significant chest tightness and nonproductive cough. She also admits to generalized chest tightness that seems to emanate from the center of her chest with chest pain that is made worse with deep breathing. She then activated EMS to be brought in for further evaluation and treatment. There is no report of fever, chills, nausea, vomiting, near syncope, syncope or diaphoresis and she denies ever having been placed on DVT prophylaxis. In the ER she underwent a CTA of the chest that was positive for numerous bilateral pulmonary emboli with evidence of pulmonary infarctions in the RLL and concern for Right heart strain confirmed by elevated initial troponin of 283 pg/mL present on admission with recent decreased mobility after Left foot fracture with suspected residual DVT in the Left lower extremity complicated by clinical evidence of acute respiratory insufficiency with and she was then admitted to the PCU for ongoing care for stay that is expected to extend beyond 2 midnights. Hospital Course: 1. Bilateral pulmonary embolisms with cor pulmonale?73-year-old female presented to the hospital with chest pain as well as cough and shortness of breath. D-dimer was elevated and she was found to have bilateral pulmonary embolisms as well as an elevated troponin and initially some tachycardia. Echo demonstrated signs of right systolic dysfunction consistent with cor pulmonale. She was started on a heparin drip. Her chest pain is resolved and she was able to ambulate today on 4 L nasal cannula and 2 L at rest. I discussed with her the possibility for discharge today and she expressed understanding the risk benefits of going home and would like to go home today. She will be started on Eliquis 10 mg p.o. twice daily for 7 days followed by 5 mg p.o. twice daily, initial prescription will be with a Dosepak and she will need to follow-up with her PCP in 3 to 5 days for refills. Also given the extent of her blood clots I do recommend follow-up with hematology as an outpatient in the next couple of months though she denies any family history of blood clots and no signs of miscarriages either. She is ambulatory in the community and so will need portable oxygen on discharge as well. 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 2. Hypothyroidism, anxiety, depression are all chronic medical conditions which complicate her care. Her home medications were continued where appropriate Physical Exam Narrative General: Alert, Oriented x3, Cooperative, No apparent distress HEENT: Atraumatic, PERRLA, EOMI, Normocephalic Oral: Moist Mucosa Neck: Supple, No JVD Lungs: Diminished, Normal air movement, No rhonchi, No wheeze, No rales Cardiovascular: Regular rate, Regular Rhythm, Normal S1, Normal S2, No murmurs Abdomen: Soft, Non Tender, Non-Distended, No Hepato-splenomegaly Extremities: No edema, Capillary Refill Less than 3 Seconds Skin: No rashes, No breakdown Musculoskeletal: No Tenderness to Palpation of Joints or Extremities Neurological: No focal neurological deficits, Motor Exam 5/5 strength throughout, Sensory exam intact to light touch and pain Psych/Mental Status: Normal Affect, Appropriate Weight / BMI Weight Weight: 218 lb 4.122 oz Body Mass Index (BMI) 36.3 ABG / Lab / Microbiology Data 12/16/23 03:03 12/16/23 03:03 Laboratory: Laboratory Results - last 24 hr 12/15/23 13:29: APTT 53.9 H 12/15/23 20:10: APTT 47.8 H 12/16/23 03:03: WBC 13.4 H, RBC 4.16 L, Hgb 12.4, Hct 37.7, MCV 90.6, MCH 29.8, MCHC 32.9 D, RDW Std Deviation 47.4 H, RDW Coeff of Larry 14.3, Plt Count 198, MPV 9.6, Immature Gran % (Auto) 1.700 H, Neut % (Auto) 67.6, Lymph % (Auto) 18.8 L, [place] % (Auto) 10.6 H, Eos % (Auto) 0.9, Baso % (Auto) 0.4, Absolute Neuts (auto) 9.1 H, Absolute Lymphs (auto) 2.51, Nucleated RBC % 0, APTT 60.3 H, Sodium 139, Potassium 3.5, Chloride 110 H, Carbon Dioxide 23.0, Anion Gap 6, BUN 35 H, Creatinine 1.03 H, Estim Creat Clear Calc 54.98, Est GFR (MDRD) Af Amer 67, Est GFR (MDRD) Non-Af 56 L, BUN/Creatinine Ratio 34.0 H, Glucose 157 H, Calcium 8.5 12/16/23 10:08: APTT 52.8 H Radiography Diagnostic Testing: Radiology Impression Echocardiogram 12/15/23 00:55 Interpretation Summary Normal left ventricle. Left ventricular systolic function is normal. The estimated ejection fraction is 60 %. Mildly dilated right ventricle. Mild to moderate global right ventricular systolic dysfunction. Mobile calcified mass noted in the apex of unclear etiology. Probably part of her false tendon. Ordering Physician: Warren Terry Referring Physician: Ed Bowman Chi Performed By: Lakeshia Pettit RDCS Venous Doppler Study 12/15/23 00:55 Interpretation Summary Deep veins of the bilateral lower extremities are patent and compressible segmentally. There is no evidence of bilateral lower extremity deep vein thrombosis. The bilateral great saphenous veins appear patent and compressible segmentally. Ordering Physician: Warren Terry Referring Physician: Ed Bowman Chi Performed By: Roseline Herr RVT D/C Instructions Discharge Diet: No restrictions Weight Bearing Status: Partial weight bearing (on left heel) Call your doctor if you observe: Fever of 101 or Higher, Shortness of breath, Dizziness, Fainting spells, Swelling in the ankles, Chest pain and Increased palpitations (irregular heartbeat) Meaningful Use Info Meaningful Use Meaningful Use Diagnoses (Choose all that apply): None applicable Ischemic Stroke Statin Dosing Therapy Reference: STATIN DOSE THERAPY REFERENCE: * Patients > 75 years receive moderate or high dose statin therapy. * Patients 75 years or YOUNGER should receive HIGH intensity statin dose unless contraindicated. You will be required to document reason for non-treatment if statin daily dose does not meet guidelines. HIGH DOSE STATIN THERAPY DAILY Atorvastatin > than or = to 40 mg Rosuvastatin > than or = to 20 mg Amlodipine + Atorvastatin > than or = to 2.5/40 mg Ezetimibe + Simvastatin 10/80 mg Simvastatin 80mg Discharge Plan Admission Admit Date/Time: 12/14/23 23:38 Attending Provider: Alf Asencio Primary Care Provider: Ed Bowman Chi Consulting Providers: Warren Terry Instructions Patient Instructions: DVT/PE Discharge instruction sheet, Embolism Pulmonary Dc Discharge Orders/Prescriptions Prescriptions: New Eliquis DVT-PE Treat 30D Start 5 mg (74 tabs) tablets,dose pack 5 mg PO BID Qty: 74 0RF Continued hydrocodone-acetaminophen [[place]] 1 EACH tablet 1 ea PO Q6H PRN PRN (Reason: Pain) buspirone 10 mg Tablet 20 mg PO TID paroxetine HCl 40 mg Tablet 40 mg PO DAILY thyroid (pork) [JOB SETTER Thyroid] 15 mg Tablet 15 mg PO DAILY doxepin 50 mg capsule 50 mg PO QHS hydrocodone-acetaminophen 7.5-325 mg tablet 1 tab PO TID PRN PRN (Reason: pain) levothyroxine 25 mcg tablet 25 mcg PO DAILY tolterodine 2 mg tablet 2 mg PO QHS Referrals / Follow Up: Dante Alvarez DPM [Med Staff - Active Staff] - See Referral Note (As previously scheduled) Ed Bowman Chi, MD [Primary Care Provider] - Within 1 Week Ke Saeed MD [Med Staff - Active Staff] - Within 3 Months Disposition Disposition (needs filled in before D/C Order can be placed): Home, Self Care Charges/Coding Visit Charges Inpatient E&M: 53572 Disch Hosp >30min
--- NOTE | 2023-12-16 14:50 | CHAPLAIN ---
Type of Pastoral Visit _x__ Initial Visit ___ Follow-up Visit ___ On-call Visit ___ General Patient Visit ___ Spiritual Assessment ___ Family Conference ___ Bereavement ___ Rapid Response ___ Code Blue ___ Other (describe below) Pastoral Care Referral From _x__ Patient ___ Family ___ Nurse ___ Physician ___ Environmental Studies Department Chair ___ Insurance Claims Representative ___ Other (describe below) Sacrament/Intervention _x__ Active listening ___ Anointing ___ Mormon ___ Bereavement ___ Communion _x__ Jaqueline exploration ___ ___ Life review _x__ Prayer ___ Reconciliation ___ Sacrament of Sick _x__ Supportive presence ___ Wedding ___ Other (describe below) Pastoral Comments patient expresses desire for activity aide and for Eucharistic parachute taper to attend to her; pt wonders why she has not had communion from [employer] Min from [place]; this activity aide will look into her designation as a Worship; RN stated to the patient yesterday that this would be handled from him; pt is very talkative and gives her opinions freely; pt lost her in June and some exploration of how she is handling that takes place; pt welcomes a prayer
== END 2023-12-16 18:04 | disposition home or self-care (01) | DRG 175 ==
LOC: ED 22:52 → PCU 12-15 02:36
PROVIDERS: Admitting Provider Internal Medicine; Emergency Provider Emergency Medicine; PCP Family Medicine Geriatric Medicine; Visit Provider Family Medicine
DX: I26.09 Other pulmonary embolism with acute cor pulmonale (principal); E03.9 Hypothyroidism, unspecified; F32.A Depression, unspecified; M79.7 Fibromyalgia; M19.90 Unspecified osteoarthritis, unspecified site; F41.9 Anxiety disorder, unspecified; S92.902S Unspecified fracture of left foot, sequela; W19.XXXS Unspecified fall, sequela; Z68.37 Body mass index [BMI] 37.0-37.9, adult; E66.9 Obesity, unspecified; Z79.899 Other long term (current) drug therapy
CPT/HCPCS: 36415; 71045; 71275; 80048; 80053; 80061; 83735; 84100; 84443; 84484; 85025; 85610; 85730; 93005; 93306; 93970; 94668; 97162; 97166; 97530; 99284; J7030; Q9957; Q9967; A4216; C8929

== ENCOUNTER 2024-01-10 10:57 | Emergency (ER) | payer MEDICARE, SELFPAY ==
[2024-01-10 10:59] VITALS: BP 110/66; PULSE 104; RESP 19; TEMP 36.3; O2SAT 94; BMI 38.4
--- NOTE | 2024-01-10 11:34 | ED.VIS.BACK ---
HPI History of Present Illness Chief Complaint: Back Detail of Chief Complaint: Acute on chronic recurrent back pain. Informant: patient Onset/Context/Timing Onset: Days Context: Gradual Onset Timing: Continuous Quality: Dull and Aching Current Severity: Moderate Maximum Severity: Moderate Worsened by: improves with Movement and Bending Relieved by: Nothing Associated Symptoms Associated Symptoms: Radiation to Right Leg; Negative for Numbness, Tingling, Radiation to Left Leg, Fever, Abdominal Pain, Dysuria, Unable to Ambulate, Unable to Transfer, Urinary Retention, Constipation or Fecal Incontinence Narrative Narrative: 73-year-old female history of anxiety fibromyalgia. History of being on chronic anticoagulation due to blood clots in her legs and lung. States she has sciatic pain in her right groin or right leg. She has had this multiple times in the past. States normally her primary care physician, Dr. Bowman, gives her 4 shots in the office and then steroids and gets better. She does not believe she has had an MRI. States she is chronically incontinent and is not new she has had a prior hysterectomy and believes secondary to that. She has had no back surgery. Denies any fall or trauma. Denies any dysuria or fever. Denies any leg weakness. Prior similar symptoms: Yes and With Prior Back Pain Recent Illness/Hospitalization: No [facility] Medical History Episode of syncope Fibromyalgia Anxiety Home Medications ?Medication ?Instructions ?Recorded ?Last Taken ?Type hydrocodone-acetaminophen 5-325mg 1 ea PO Q6H PRN PRN Pain 10/12/17 Unknown History 5mg-325mg (Bernie) buspirone 10 mg tablet 20 mg PO TID anxiety 04/27/22 Unknown History paroxetine HCl 40 mg tablet 40 mg PO DAILY depression 04/27/22 Unknown History thyroid (pork) 15 mg tablet ([employer]DS[employer] 15 mg PO DAILY Thyroid 04/27/22 Unknown History Thyroid) doxepin 50 mg capsule 50 mg PO QHS anxiety 12/15/23 Unknown History hydrocodone 7.5 mg-acetaminophen 1 tab PO TID PRN PRN pain 12/15/23 Unknown History 325 mg tablet levothyroxine 25 mcg tablet 25 mcg PO DAILY thyroid 12/15/23 Unknown History tolterodine 2 mg tablet 2 mg PO QHS over active bladder 12/15/23 Unknown History apixaban 5 mg (74 tabs) tablets in 5 mg PO BID #74 tabs 12/16/23 Unknown Rx a dose pack (Eliquis DVT-PE Treat 30D Start) prednisone 20 mg tablet 40 mg (2 x 20 mg) PO DAILY 7 days 01/10/24 Unknown Rx #14 tabs Allergy/AdvReac Type Severity Reaction Status Date / Time No Known Allergies Allergy Verified 12/14/23 19:29 Family History Mother Myocardial infarction Sister Diabetes Cancer Sister No problems noted. Father Cancer Surgical History History of partial hysterectomy History of cholecystectomy Social History Smoking Status: Never smoker ROS ROS ED ROS Narrative Back pain radiating to her right leg. Denies recent illness. Review of Systems ROS Unobtainable: Denies due to encephalopathy Constitutional Constitutional ED: Denies chills or fever(s) Eyes Eyes: Denies blurry vision ENT ENT ED: Denies ear pain Cardiovascular Cardiovascular: Denies chest pain or palpitations Respiratory/Chest Respiratory/Chest: Denies dyspnea Gastrointestinal Gastrointestinal: Denies abdominal pain, constipation, diarrhea, melena, nausea or vomiting Genitourinary Genitourinary ED: Denies dysuria or hematuria Musculoskeletal Musculoskeletal: Reports back pain; Denies arthralgias, myalgias or neck pain Integumentary Denies abscess, Abrasions or rash Neurologic Neurologic: Denies headache(s) Psychiatric Psychiatric: Denies anxiety Endocrine Endocrinology: Denies cold intolerance Hematologic/Lymphatic Hematologic/Lymphatic: Denies easy bleeding, easy bruising or lymphadenopathy Allergic/Immunologic Allergic/Immunologic ED: Denies mouth swelling, tongue swelling or urticaria EXAM Physical Exam Narrative Exam Narrative: 33-year-old female no acute distress sitting upright in bed. H EENT exam unremarkable. Neck nontender. Lungs clear to auscultation bilaterally. Heart regular rhythm rate about 100 no murmur. Chest wall and ribs nontender. Abdomen soft nontender. No pulsatile mass. No peritoneal signs. Back there is no thoracic or lumbar tenderness. There is no reproducible SI pain. There is no bruising or signs of trauma. She is 5 out of 5 plumber cub strength. Dorsi plantarflexion intact. No cauda equina. No saddle anesthesia. Really no significant change with straight leg raise of either leg passively and actively. Patient is awake and alert. No focal motor or sensory deficits. Const Vital Signs: 01/10/24 10:59 Temperature 97.4 F L Temperature Source Temporal Pulse Rate 104 H Respiratory Rate 19 H Blood Pressure 110/66 Blood Pressure Mean 80 Pulse Ox 94 Oxygen Delivery Method Nasal Cannula Oxygen Flow Rate (L/min) 3 Positive well nourished and well developed; Negative for cachectic, contractures or unkempt General Appearance ED: well developed and NAD; Negative for unkempt, cachectic, contractures or pallor Nutritional Appearance: Negative for cachectic HEENT Reports moist mucous membranes Negative for trauma or tenderness Eyes PERRL and EOMs intact bilaterally General Eye ED: Negative for pale conjunctiva, scleral icterus or other Neck no lymphadenopathy, supple and no JVD General: Negative for tenderness Thyroid: Negative for other Resp normal respiratory effort and clear to auscultation bilaterally Effort and Inspection: Negative for pain with movement Auscultation: Negative for rales, rhonchi, wheezes or diminished lung sounds Cardio regular rate, regular rhythm, S1 normal heart sound, S2 normal heart sound and no murmurs Palpation: Negative for palpable S3 Rate: Negative for bradycardia or tachycardic Rhythm: Negative for abnormal rhythm Bruits: Negative for other GI normal to inspection, nondistended, normoactive bowel sounds, soft to palpation, non-tender, non-distended and no masses Inspection: Negative for abdominal distention Auscultation: Negative for hyperactive bowel sounds Palpation: Negative for tender, guarding, mass, pulsatile mass or rebound tenderness present Back/Spine normal to inspection and no thoracic nor lumbar tenderness General Back: Negative for CVA tenderness Cervical Spine: Negative for cervical spine tenderness Thoracic Spine / Upper Back: Negative for paraspinal muscle tenderness Lumbar Spine / Lower Back: straight leg raise negative bilaterally Extremity normal to inspection and no clubbing, cyanosis or edema General Extremety ED: Negative for edema or tenderness General Extremity: Negative for edema Neuro oriented x3 and no sensory deficits noted Sensorium / Orientation: alert; Negative for confused, lethargic or stuporous Motor Exam: strength 5/5 throughout; Negative for strength abnormal Psych mental status grossly normal Appearance: Negative for unkempt or other Attitude: No agitated and No other Mood & Affect: Negative for depressed Skin no rashes or lesions noted and no wounds General Skin Exam: Negative for jaundice or pallor Lesions: No lesion noted Rashes: No rashes noted Trauma: Negative for abrasion, puncture or other Wounds: Negative for wounds noted MDM MDM MDM Narrative Medical decision making narrative: 73-year-old female with acute on chronic back pain radiating to her right leg. Clinically this may be a lumbar radiculopathy. Could be sciatica it is not reproducible however. There is no signs of trauma. She has no weakness or numbness in her lower extremities. She does not need any emergent imaging. She will be given an IM injection of Dilaudid. Placed on prednisone for the next 7 days and follow-up with primary care physician because not improving she may need a lumbar MRI. History & Record Review Discussion w/independent historian: Patient Additional record(s) reviewed:: Prior inpatient record, Prior outpatient record, Prior ED visit and Prior labs Discharge Plan Triage Chief Complaint: Back ED Provider: Alcon Prieto Dx/Rx/DC Orders Clinical Impression: Back pain, Acute lumbar radiculopathy, Chronic anticoagulation, Hx pulmonary embolism Instructions: ED Back Pain (Acute or Chronic), ED Sciatica Prescriptions: New prednisone 20 mg tablet 40 mg PO DAILY 7 Days Qty: 14 0RF No Action hydrocodone-acetaminophen [Bernie] 1 EACH tablet 1 ea PO Q6H PRN PRN (Reason: Pain) buspirone 10 mg Tablet 20 mg PO TID paroxetine HCl 40 mg Tablet 40 mg PO DAILY thyroid (pork) [MAINTENA[employer] GR[employer] Thyroid] 15 mg Tablet 15 mg PO DAILY doxepin 50 mg capsule 50 mg PO QHS hydrocodone-acetaminophen 7.5-325 mg tablet 1 tab PO TID PRN PRN (Reason: pain) levothyroxine 25 mcg tablet 25 mcg PO DAILY tolterodine 2 mg tablet 2 mg PO QHS Eliquis DVT-PE Treat 30D Start 5 mg (74 tabs) tablets,dose pack 5 mg PO BID Qty: 74 0RF Primary Care Provider: Ed Bowman Chi Referrals: Ed Bowman Chi, MD [Primary Care Provider] - As soon as possible Activity Restrictions/Additional Instructions: Follow-up with Dr. Bowman if not improving. You may need an MRI of your lumbar spine. To make sure this is in the disc pushing on the nerve. Prednisone daily for the next week. Return if worse. Print Language: Portuguese Disposition Disposition: Home, Self Care
[2024-01-10] MEDS: HYDROmorphone 1 MG/ML Syringe IM (11:41)
[2024-01-10] MEDS: predniSONE 20 MG Tablet 40 MG PO (11:41)
== END 2024-01-10 12:11 | disposition home or self-care (01) ==
PROVIDERS: Emergency Provider Emergency Medicine; PCP Family Medicine Geriatric Medicine; Visit Provider Emergency Medicine
DX: M54.16 Radiculopathy, lumbar region (principal); G89.29 Other chronic pain; Z79.01 Long term (current) use of anticoagulants; Z86.711 Personal history of pulmonary embolism
CPT/HCPCS: 96372; 99282

== ENCOUNTER → 2024-01-11 | Outpatient (CLI) | payer MEDICARE, SELFPAY ==
[2024-01-11 11:29] LABS: Absolute Lymphocyte Count 2.29 X10^3/uL (0.83-4.51); Absolute Neutrophil Count 7.1 X10^3/uL (2.0-7.7); Basophil# 0.06 X10^3/uL; Basophil% 0.5 % (0-1); Eosinophil# 0.04 X10^3/uL; Eosinophils% 0.4 % (0-5); Hematocrit 44.8 % (37-47); Hemoglobin 14.3 g/dL (12.0-15.0); Lymphocyte # 2.29 X10^3/ul (0.83-4.51); Lymphocyte % 20.9 % (19-41); Mean Corp Hgb Conc 31.9 g/dL (32-36); Mean Corpuscular Hgb 28.7 pg (27.0-32.0); Mean Corpuscular Volume 89.8 fL (81-99); Mean Platelet Vol. 9.7 fl (6.2-12.0); Monocyte# 1.11 X10^3/uL; Monocyte% 10.1 % (0-10); NRBC Flagged by Analyzer 0 % (0-5); Neutrophil # 7.06 X10^3/uL (2.7-7.7); Neutrophil % 64.5 % (47-70); Platelet Count 303 K/mm3 (150-450); RBC Distribution Width CV 14.7 % (11.6-14.6); RBC Distribution Width SD 47.7 fl (35.1-43.9); Red Blood Count 4.99 M/mm3 (4.2-5.4)
== END | disposition home or self-care (01) ==
LOC: POLAB3 11:03
PROVIDERS: PCP Family Medicine Geriatric Medicine; Visit Provider Family Medicine Geriatric Medicine
DX: E78.5 Hyperlipidemia, unspecified (principal)
CPT/HCPCS: 36415; 85025

== ENCOUNTER 2024-01-31 11:30 | Outpatient (RCR) | payer MEDICARE, SELFPAY ==
--- NOTE | 2024-01-20 12:05 | HP.PTEVAL_ITS ---
Patient's Visit Information Visit Information Visit Information: BARBARA HERNANDEZ is a 73 year old F referred to Physical Therapy by Dr. Ed Bowman MD with a diagnosis of Right sided sciatica; M54.31; Right leg pain, M79.604. Date of Evaluation: 01/20/24 Physical Therapist: Alf Hanks Visit Plan Frequency: 1-2x /Week Duration: 6 Weeks Plan: Continue with core/back strengthening, hip strengthening, and balance exercises. Try to find a direction of preference for centralizing right leg pain as well. Use manual therapy and modalities as needed for pain control. Subjective Subjective: Pt. is a 73 y.o. female who has been having right leg pain for about three weeks when she just woke up one morning and had pain. She denies any back pain currently. Her PLOF includes no history of back pain before this. She is ambulating with a rollator which she has for a few years. Pt. has not had any recent imaging of her spine. She is unable to report any specific position that relieves her pain. She denies any change in her bowel or bladder function or unexplained weight loss. Pt. has difficulty with sitting longer than 1 hour, standing/walking longer than 5 minutes, ascending/descending stairs, squatting, sleeping, lifting things, pushing/pulling, getting up from a chair, and housework. 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 Her goal with physical therapy is to get rid of the pain and be able to walk normal. Pt. rates the pain at 8/10 currently, at worst 10/10, at best 2/10 and describes the pain as achy, dull, and sharp. Pt. is currently on Predisone. Her PMH includes partial hysterectomy, tonsillectomy, fibromyalgia, and appendectomy. Pt. lives alone in a two story home with three steps to enter. Her hobbies include writing, knitting, and playing with her puppy. Objective Objective: Palpation- No tenderness to palpation Left LE strength hip flexion 4+/5, abduction 4-/5, adduction 4+/5, extension 3+/5, knee flexion 5/5, knee extension 5/5, ankle DF 5/5, ankle PF 5/5 Right LE strength hip flexion 3+/5, abduction 2/5, adduction 4/5, extension 3+/5, knee flexion 4+/5, knee extension 4/5, ankle DF 5/5, ankle PF 5/5 Sensation- WNL bilaterally Special tests- Straight leg raise [-], Well's leg raise [-], Slump test [-] Tandem stance right- unable, left- unable SLS right- unable, left- unable Gait- Pt. ambulates with rollator walker and forward flexed posture. Goals Goal 1:: Pt. will improve bilateral LE strength to 4/5 for all motions in order to improve stability and balance. Goal Time Frame: 4-6 Weeks Goal 2:: Pt. will be able to stand/walk for at least 15 minutes with no rest break with pain rollator in order to improve mobility. Goal Time Frame: 4-6 Weeks Goal 3:: Pt. will be able to sleep with less than 3 interruptions due to pain. Goal Time Frame: 4-6 Weeks Goal 4:: Pt. will centralize symptoms from right leg to low back. Goal Time Frame: 4-6 Weeks Goal 5:: Pt. will improve tandem stance > 15 secs in order to improve stability and balance. Goal Time Frame: 4-6 Weeks Goal 6:: Pt. will rate pain at worst at 5/10 with ADL's. Goal Time Frame: 4-6 Weeks Rehabilitation Potential Physical Therapy Diagnosis: Decreased lumbar ROM, core/back/hip strength, difficultly walking, balance impairment, and pain Rehabilitation Potential: Good Anticipated Interventions Patient/Client Instruction: Educate patient on: Condition and Plan of Care For the Purpose of:: To decrease pain, To improve ability to perform ADL's, To improve performance and independence with ADL's, To increase flexibility/ROM, To improve balance, To improve safety with gait, To assume or resume ADL's, To improve safety and To improve tolerance to ADL's Therapeutic Exercise to Include: Strength training, Endurance training, Balance training, Body mechanics, Postural training, Flexibilty training, Gait and locomotor training, Active ROM, Dynamic Lumbar Stabilization and Carey Exercises Comment: Continue with core/back strengthening, hip strengthening, and balance exercises. Try to find a direction of preference to centralize right leg pain as well. For the Purpose of:: To decrease pain, To improve ability to perform ADL's, To improve performance and independence with ADL's, To increase flexibility/ROM, To improve balance, To assume or resume ADL's, To improve safety and To improve tolerance to ADL's Functional Training to Include: ADL Training, Functional home training and Gait training For the Purpose of:: To decrease pain, To improve ability to perform ADL's, To improve performance and independence with ADL's, To improve gait and locomotor functions, To increase flexibility/ROM, To improve endurance, To improve balance, To improve safety with gait, To assume or resume ADL's and To improve tolerance to ADL's Manual Therapy Techniques to Include: Mobilization and Soft tissue mobilization For the Purpose of:: To decrease pain, To improve ability to perform ADL's, To improve performance and independence with ADL's, To decrease soft tissue restriction, To increase flexibility/ROM, To improve balance, To assume or resume ADL's, To improve safety and To improve tolerance to ADL's Assistive Devices: Cane and Wheeled walker For the Purpose of:: To decrease pain, To increase ROM, To improve ability to perform ADL's, To improve performance and independence with ADL's, To improve gait and locomotor functions, To increase flexibility/ROM, To improve endurance, To improve balance, To assume or resume ADL's and To improve tolerance to ADL's TENS: Yes IF ES: Yes Cryotherapy (ice pack, ice massage): Yes Thermo therapy (hot pack): Yes Pelvic traction supine: Yes For the Purpose of:: To decrease pain, To increase ROM, To improve performance and independence with ADL's, To assume or resume ADL's and To improve tolerance to ADL's Text: Thank you for the opportunity to evaluate your patient. For Medicare and Medicare HMO plans, please review the plan of care and approve it. It will need to be FAXED BACK to us at [phone] for Medicare purposes. For Medicare only, by signing this I certify the plan of care. Please let me know if there are questions or concerns regarding this plan of care. Physician Signature: Date:
== END 2024-01-31 19:00 | disposition home or self-care (01) ==
LOC: PT 11:30
PROVIDERS: PCP Family Medicine Geriatric Medicine; Visit Provider Family Medicine Geriatric Medicine
DX: M54.31 Sciatica, right side (principal); M79.604 Pain in right leg; M25.571 Pain in right ankle and joints of right foot; M79.671 Pain in right foot
CPT/HCPCS: 97110; 97162

== ENCOUNTER → 2024-02-03 | Outpatient (CLI) | payer MEDICARE, SELFPAY ==
[2024-02-03 15:22] LABS: Hematocrit 46.6 % (37-47); Hemoglobin 15.4 g/dL (12.0-15.0); Mean Corpuscular Hgb 29.6 pg (27.0-32.0); Mean Corpuscular Volume 89.6 fL (81-99); Mean Platelet Vol. 9.7 fl (6.2-12.0); POSITIVE COUNT YES; POSITIVE DIFFERENTIAL YES; POSITIVE MORPHOLOGY YES; Platelet Count 274 K/mm3 (150-450); RBC Distribution Width CV 14.9 % (11.6-14.6); RBC Distribution Width SD 49.4 fl (35.1-43.9); White Blood Count 13.8 K/mm3 (4.4-11.0)
[2024-02-03 15:23] LABS: Differential Indicated MANUAL DIFF
--- NOTE | 2024-02-03 16:00 | MRI_ITS ---
STUDY: MRI LUMBAR SPINE WITHOUT CONTRAST REASON FOR EXAM: Female, 73 years old. Low back pain and right leg pain x3 weeks. TECHNIQUE: Standardized fat and water weighted pulse sequences were obtained in the sagittal and axial planes. COMPARISON: None FINDINGS: T10-T11, T11-T12 and T12-L1: (Sagittal only). Normal endplates. Normal disc height, hydration and morphology. No ventral extradural defects. Normal central canal and bilateral intervertebral neuroforamina. Normal lumbar lordosis. There is no substantial scoliosis. Normal conus medullaris that terminates at the upper L1 vertebral body level. L1-2: Normal L1 inferior endplate. Shallow central Schmorl''s node in the L2 superior endplate. Normal disc height. Minimal ventral extradural defect due to posterior bulging annulus. Normal facet joints. Normal central canal and bilateral lateral recesses. Normal bilateral intervertebral neuroforamina. L2-3: Mild Modic type II degenerative vertebral marrow fat infiltration underneath the right side of the vertebral endplates. Tiny Schmorl''s node in the central L3 superior endplate. Minimal disc space height narrowing. Minimal ventral extradural defect due to posterior bulging annulus. Normal facet joints. Normal central canal and bilateral lateral recesses. Mild stenosis of the bilateral intervertebral neuroforamina due to posterior bulging annulus. L3-4: Modic type II degenerative vertebral marrow fat infiltration underneath the vertebral endplates. Moderate disc space height narrowing. Mild degenerative anterolisthesis of L3 on L4. Mild to moderate left degenerative facet arthropathy. Mild right degenerative facet arthropathy. Mild dorsal epidural lipomatosis. Mild central canal stenosis with an AP canal diameter 9 mm. Mild stenosis of the bilateral lateral recesses. [id number]-[id number] stenosis of the left intervertebral neuroforamen is suspicious minimal impingement in the dorsal superior surface of the left L3 nerve by osteophyte arising from the left L4 superior articular facet and posterior bulging annulus in addition to anterolisthesis causing minimal impingement in the anterior inferior surface of the left L3 nerve. Normal right intervertebral neuroforamen. L4-5: Normal endplates. Minimal disc space height narrowing. Small right posterior caudally extruded and sequestered disc fragment causing severe stenosis of the right lateral recess and displacement of the right L5 nerve root sleeve. Mild bilateral degenerative facet arthropathy. Mild dorsal epidural lipomatosis. Moderate central canal stenosis with an AP canal diameter 7 mm. Normal left lateral recess. Mild stenosis of the bilateral intervertebral neuroforamina. L5-S1: Normal endplates. Normal disc height. Prominent midline ventral extradural defect may represent small disc protrusion. Moderate asymmetric degenerative facet arthropathy. Normal central canal and bilateral lateral recesses. Normal bilateral intervertebral neuroforamina. Normal visualized sacral ala. Normal visualized paraspinous soft tissue structures. MRI/Spine Lumbar (Routine) IMPRESSION: 1. Small right L4-5 posterior caudal disc extrusion with sequestrated disc fragment causing severe stenosis of the right lateral recesses and displacement of the right L5 nerve root sleeve. Moderate central canal stenosis with an AP canal diameter 7 mm and mild dorsal epidural lipomatosis. 2. Mild to moderate stenosis of the left L3-4 intervertebral neuroforamen with suspicious minimal impingement in the dorsal superior surface and anterior inferior surface of the left L3 nerve for reasons given above. Mild degenerative anterolisthesis of L3 on L4, mild central canal stenosis with an AP canal diameter of 9 mm and mild stenosis of the bilateral lateral recesses. 3. Prominent midline ventral extradural defect at L5-S1 disc space level may represent small disc protrusion. No associated spinal stenosis or nerve root displacement. Electronically Signed: Chance Cid MD at 13:01 EDT ,
[2024-02-03 17:45] LABS: Lymphocyte 11 % (19-41); Metamyelocyte 4 % (0-1); Monocyte 9 % (0-10); Myelocyte 4 % (0-0); Neutrophil-Band 4 % (0-5); Neutrophil-Segmented 68 % (47-70); Total Cells Counted 100 (MANUAL DIFF)
[2024-02-03 17:47] LABS: Absolute Lymphocyte Count 1.52 X10^3/uL (0.83-4.51)
[2024-02-03 17:49] LABS: Anisocytosis RARE; Macrocytosis RARE; Platelet Estimate ADEQUATE (ADEQ); Red Cell Morphology N CHROM NORMAL (NORM C&C)
[2024-02-04 11:49] LABS: Pathologist Review Reviewed
== END | disposition home or self-care (01) ==
PROVIDERS: PCP Family Medicine Geriatric Medicine; Referring Provider Family Medicine Geriatric Medicine; Visit Provider Family Medicine Geriatric Medicine
DX: R53.83 Other fatigue (principal); K92.2 Gastrointestinal hemorrhage, unspecified; M54.50 Low back pain, unspecified
CPT/HCPCS: 36415; 72148; 82274; 85025

== ENCOUNTER → 2024-02-04 | Outpatient (CLI) | payer MEDICARE, SELFPAY ==
--- NOTE | 2024-02-04 11:10 | VDLE_ITS ---
Reason For Study: RLE PAIN/SWELLING RIGHT LEFT GSV is normal. CFV is compressible, spontaneous, phasic, CFV is compressible, spontaneous, phasic, competent, and demonstrates normal competent and demonstrates normal augmentation. augmentation. FV is compressible, spontaneous, phasic, competent and demonstrates normal augmentation. POP V is compressible, spontaneous, phasic, competent and demonstrates normal augmentation. T/P Trunk is compressible. PTV is compressible. RT PerV is compressible. Procedure This is a venous duplex using B-mode, color flow and spectral Doppler. Exam performed in department. The study was technically difficult. PT had difficultytolerating compressions due to fibromyalgia. A preliminary report was called and/or faxed to Dr. Bowman @ [phone]. VL/Venous Duplex US, Unilateral Interpretation Summary Deep veins of the right lower extremity are patent and compressible segmentally . There is no evidence of right lower extremity deep vein thrombosis. Valvular competence zahraa ears intact within the proximal deep venous system on the right . The right great saphenous vein a ppears patent and compressible segmentally. The left common femoral vein is patent and compressib le . Ordering Physician: Ed Bowman Chi Referring Physician: Ed Bowman Chi Performed By: Brandie Villalobos, WILFRIDO, RVT
== END | disposition home or self-care (01) ==
LOC: CVS 11:02
PROVIDERS: PCP Family Medicine Geriatric Medicine; Referring Provider Family Medicine Geriatric Medicine; Visit Provider Family Medicine Geriatric Medicine
DX: M79.671 Pain in right foot (principal); M79.89 Other specified soft tissue disorders
CPT/HCPCS: 93971

== ENCOUNTER → 2024-03-10 | Outpatient (CLI) | payer MEDICARE, SELFPAY ==
[2024-03-10 12:35] LABS: Absolute Lymphocyte Count 2.77 X10^3/uL (0.83-4.51); Absolute Neutrophil Count 6.8 X10^3/uL (2.0-7.7); Basophil# 0.03 X10^3/uL; Basophil% 0.3 % (0-1); Eosinophil# 0.07 X10^3/uL; Eosinophils% 0.6 % (0-5); Hematocrit 43.7 % (37-47); Hemoglobin 15.7 g/dL (12.0-15.0); Lymphocyte # 2.77 X10^3/ul (0.83-4.51); Lymphocyte % 24.6 % (19-41); Mean Corp Hgb Conc 35.9 g/dL (32-36); Mean Corpuscular Hgb 31.8 pg (27.0-32.0); Mean Corpuscular Volume 88.5 fL (81-99); Mean Platelet Vol. 10.2 fl (6.2-12.0); Monocyte# 1.31 X10^3/uL; Monocyte% 11.6 % (0-10); NRBC Flagged by Analyzer 0 % (0-5); Neutrophil # 6.83 X10^3/uL (2.7-7.7); Neutrophil % 60.6 % (47-70); POSITIVE MORPHOLOGY YES; Platelet Count 335 K/mm3 (150-450); RBC Distribution Width CV 15.6 % (11.6-14.6); RBC Distribution Width SD 50.6 fl (35.1-43.9); Red Blood Count 4.94 M/mm3 (4.2-5.4); White Blood Count 11.3 K/mm3 (4.4-11.0)
[2024-03-10 12:53] LABS: ALB/GLOB Ratio 0.9 RATIO (0.9-2.4); AST(SGOT) 22 U/L (15-37); Alanine Aminotransfer ALT/SGPT 31 U/L (13-56); Albumin, Serum 3.3 g/dL (3.2-5.0); Alkaline Phosphatase 84 U/L (45-117); Anion Gap 7 (5-15); BUN 21 mg/dL (7-18); Calcium,Total 9.7 mg/dL (8.5-10.1); Chloride 111 mmol/L (98-107); Cholesterol 227 mg/dL (200); EST Glomerular Filtration Rate 57 mL/min (>60); Est Glom Filt Rate - Afr Amer 69 mL/min (>60); Globulin 3.5 g/dL (2.2-4.2); Glucose 148 mg/dL (74-106); High Density Lipoprotein 43 mg/dL; Potassium 3.8 mmol/L (3.5-5.1); Protein, Total 6.8 g/dL (6.4-8.2); Sodium Level 142 mmol/L (136-145); Thyroid Stim Hormone (TSH) 0.922 uIU/mL (0.358-3.740); Triglycerides 230 mg/dL; Very Low Density Lipoprotein 46 mg/dL (5-40)
[2024-03-10 13:01] LABS: Differential Indicated SCAN CRITERIA MET
[2024-03-10 13:10] LABS: Vitamin D,25 Hydroxy 59.3 ng/mL
== END | disposition home or self-care (01) ==
LOC: POLAB3 11:50
PROVIDERS: PCP Family Medicine Geriatric Medicine; Visit Provider Family Medicine Geriatric Medicine
DX: R53.83 Other fatigue (principal); E55.9 Vitamin D deficiency, unspecified; E78.5 Hyperlipidemia, unspecified
CPT/HCPCS: 36415; 80053; 80061; 82306; 84443; 85025

== ENCOUNTER 2024-03-12 11:38 | Inpatient (IN) | payer MEDICARE, SELFPAY ==
[2024-03-12] VITALS (26 sets, daily range): BP systolic 105–162; BP diastolic 64–97; PULSE 82–119; RESP 13–27; TEMP 35.7–37; O2SAT 90–100; BMI 33.9; BMI 36.3
--- NOTE | 2024-03-12 11:55 | ED.RN ---
pt reports that she forgot to take her meds for anxiety. since it was 2 3x a day she took 6 10mg tabs of buspirone at bedtime
--- NOTE | 2024-03-12 12:17 | ED.RN ---
removed nrb placed on 4l o2. pt encouraged to slow deep breaths in through nose/out through mouth. sats 82-83%. increased to 6l. sats remain 84-86%. respiratory assessing and placed on high flow o2 @ 15l to maintain sats at 90-91%
--- NOTE | 2024-03-12 12:21 | ED.RN ---
respiratory rate decreased from 34 to 18-20. color pink and good. sats [id number]% on 15l high flow o2
--- NOTE | 2024-03-12 12:28 | CT_ITS ---
We are attempting to reach an attending provider to discuss findings. An addendum with communication details will be sent when the communication is complete. EXAM: CT ANGIOGRAPHY CHEST WITHOUT AND WITH INTRAVENOUS CONTRAST CLINICAL INDICATION: pulmonary embolism TECHNIQUE: Helically acquired angiography images were obtained of the chest without and with intravenous contrast. This CT exam was performed using one or more of the following dose reduction techniques: automated exposure control, adjustment of the mA and/or kV according to patient size, and/or use of iterative reconstruction technique. MIP reconstructed images were created and reviewed. CONTRAST: IV 100mL [id number] COMPARISON: 12/14/2023. FINDINGS: PULMONARY ARTERIES: There are extensive bilateral pulmonary emboli most proximally in the right more severe than left main pulmonary arteries. The pulmonary trunk measures 3 cm. The left main pulmonary artery measures 2.6 cm. The right main pulmonary artery measures 2.7 cm. AORTA: Mild atherosclerosis. Normal in caliber. No evidence of dissection. GREAT VESSELS OF AORTIC ARCH: No significant abnormality. Normal in caliber. No evidence of dissection. INFERIOR VENA CAVA: Reflux of contrast into the inferior vena cava and hepatic veins. LUNGS AND PLEURAL SPACES: Minimal bandlike opacities may be scarring or atelectasis in the upper lobes. No consolidative pulmonary opacities are present. No discrete evidence of pulmonary infarct at this time. No mass. No pleural effusion or thickening. No pneumothorax. HEART: The RV LV ratio is approximately 2.1. The right ventricle is distended. No pericardial effusion. There are coronary artery calcifications. MEDIASTINUM: No significant abnormality. No mediastinal or hilar adenopathy. Esophagus is unremarkable. No hiatal hernia. THYROID: No significant abnormality. No thyroid lesions. BONES/JOINTS: Degenerative change. CT/CTA Chest W/WO Contrast IMPRESSION: 1. There are extensive bilateral pulmonary emboli most proximally in the right more severe than left main pulmonary arteries. The overall burden may have increased particularly on the right. There is right heart strain. 2. Minimal bandlike opacities may be scarring or atelectasis in the upper lobes. No consolidative pulmonary opacities are present. No discrete evidence of pulmonary infarct at this time. Electronically Signed: Jens Jean Baptiste DO at 14:00 EDT ,
--- NOTE | 2024-03-12 12:29 | EKG12_ITS ---
Test Reason : SOB Blood Pressure : / mmHG Vent. Rate : 119 BPM Atrial Rate : 119 BPM P-R Int : 144 ms QRS Dur : 072 ms QT Int : 338 ms P-R-T Axes : 052 -25 041 degrees QTc Int : 475 ms Sinus tachycardia with Premature atrial complexes Low voltage QRS Inferior infarct (cited on or before 27-APR-2022) Abnormal ECG Confirmed by JIMI CUENCA, DELIA ([id number]), order editor LEYDA NICOLAS ([id number]) on 03/14/2024 8:04:41 AM Referred By: JOHANNA/KORIN Confirmed By:DELIA KRAUSE MD
--- NOTE | 2024-03-12 12:30 | EX.ED.DYSGE1 ---
HPI History of Present Illness Chief Complaint: Shortness of Breath Informant: patient and EMS Narrative Narrative: 73-year-old female presenting to the emergency department via EMS with a chief complaint of dyspnea and hypoxia. Patient states in December she broke her foot and developed DVT and then pulmonary embolism. She states that she recently was able to get off of oxygen and her Eliquis was stopped a week ago so that she can undergo a back procedure from an injury that occurred at the same time. She states that she had been doing well and then yesterday developed shortness of breath which seem to get worse as the night went on. Patient states that her chest feels like she got hit in the gut with a punch. She denies any history of heart failure. She notes that the right lower leg seems to have more swelling than the left chronically. She has had that evaluated for DVT was negative. [facility] Medical History Depression History of kidney stones Acute calculous cholecystitis Laceration of left index finger Pulmonary emboli Hypoxia Elevated troponin Pulmonary embolism and infarction Fracture of left foot Episode of syncope Fibromyalgia Anxiety Home Medications ?Medication ?Instructions ?Recorded ?Last Taken ?Type paroxetine HCl 40 mg tablet 40 mg PO DAILY depression 04/27/22 Unknown History hydrocodone 7.5 mg-acetaminophen 1 tab PO TID PRN PRN pain 12/15/23 Unknown History 325 mg tablet levothyroxine 25 mcg tablet 25 mcg PO DAILY thyroid 12/15/23 Unknown History tolterodine 2 mg tablet 2 mg PO QHS over active bladder 12/15/23 Unknown History apixaban 5 mg (74 tabs) tablets in 5 mg PO BID #74 tabs 12/16/23 Unknown Rx a dose pack (Eliquis DVT-PE Treat 30D Start) baclofen 10 mg tablet 10 mg PO QDAY 02/23/24 Unknown History buspirone 10 mg tablet 10 mg PO TID anxiety 02/23/24 Unknown History cholecalciferol (vitamin D3) 25 25 mcg PO DAILY 02/23/24 Unknown History mcg (1,000 unit) capsule gabapentin 300 mg capsule 300 mg PO QDAY 02/23/24 Unknown History omeprazole 40 mg capsule,delayed 40 mg PO QDAY #30 caps 03/02/24 Unknown Rx release Allergy/AdvReac Type Severity Reaction Status Date / Time No Known Allergies Allergy Verified 03/12/24 11:39 Family History Mother Myocardial infarction Sister Diabetes Cancer Sister No problems noted. Father Cancer Surgical History S/P tonsillectomy S/P appendectomy S/P excision of ganglion cyst History of partial hysterectomy History of cholecystectomy Social History Smoking Status: Never smoker ROS ROS ED Constitutional Constitutional ED: Denies chills, fever(s) or weight loss Eyes Eyes: Denies change in vision or diplopia ENT ENT ED: Denies ear pain, rhinorrhea or sore throat Cardiovascular Cardiovascular: Reports chest pain; Denies orthopnea, palpitations or racing heartbeat Respiratory/Chest Respiratory/Chest: Reports dyspnea and dyspnea on exertion; Denies cough or orthopnea Gastrointestinal Gastrointestinal: Denies abdominal pain, diarrhea, nausea or vomiting Genitourinary Genitourinary ED: Denies dysuria, hematuria or urinary frequency Musculoskeletal Musculoskeletal: Denies arthralgias or myalgias Integumentary Denies abscess or rash Neurologic Neurologic: Denies headache(s) or weakness Psychiatric Psychiatric: Denies anxiety, depression, suicidal ideation or suicidal thoughts Endocrine Endocrinology: Denies polydipsia, polyphagia or polyuria Allergic/Immunologic Allergic/Immunologic ED: Denies mouth swelling, tongue swelling or urticaria EXAM Physical Exam Narrative Exam Narrative: Patient has conversational dyspnea Const Vital Signs: 03/12/24 11:39 03/12/24 11:49 03/12/24 11:50 Temperature 98.0 F 98.2 F Temperature Source Oral Oral Pulse Rate 119 H 115 H Respiratory Rate 24 H 19 H Respiratory Effort Respiratory Depth Respiratory Pattern Blood Pressure 147/90 H 122/76 H Blood Pressure Mean 109 91 Pulse Ox 96 90 93 Oxygen Delivery Method Non-Rebreather High Flow Nasal Cannula Oxygen Flow Rate (L/min) 15 2 03/12/24 11:53 03/12/24 12:15 03/12/24 12:29 Temperature Temperature Source Pulse Rate Respiratory Rate Respiratory Effort Normal Respiratory Depth Normal Respiratory Pattern Normal Blood Pressure Blood Pressure Mean Pulse Ox 90 92 Oxygen Delivery Method Nasal Cannula High Flow High Flow Oxygen Flow Rate (L/min) 4 15 15 03/12/24 12:38 03/12/24 12:49 03/12/24 13:00 Temperature 96.3 F L Temperature Source Temporal Pulse Rate 115 H 111 H 109 H Respiratory Rate 24 H 20 H 22 H Respiratory Effort Respiratory Depth Respiratory Pattern Blood Pressure 127/97 H 122/76 H 113/86 H Blood Pressure Mean 107 91 95 Pulse Ox 90 91 91 Oxygen Delivery Method High Flow High Flow High Flow Oxygen Flow Rate (L/min) 15 15 15 03/12/24 13:00 03/12/24 14:00 03/12/24 15:00 Temperature 96.8 F L 98.6 F Temperature Source Temporal Temporal Pulse Rate 104 H 108 H 108 H Respiratory Rate 22 H 20 H 18 Respiratory Effort Respiratory Depth Respiratory Pattern Blood Pressure 127/97 H 125/90 H 142/90 H Blood Pressure Mean 107 101 107 Pulse Ox 90 91 94 Oxygen Delivery Method High Flow High Flow High Flow Oxygen Flow Rate (L/min) 15 15 15 Positive well nourished and well developed General Appearance ED: well developed HEENT Reports normocephalic, head/scalp atraumatic and moist mucous membranes Eyes PERRL and EOMs intact bilaterally Neck no lymphadenopathy, supple and no JVD Resp clear to auscultation bilaterally Resp Narrative: Patient tachypneic Cardio regular rate, regular rhythm and no murmurs Rate: tachycardic GI normal to inspection, nondistended, normoactive bowel sounds and non-tender Palpation: soft Back/Spine no CVA tenderness and normal ROM Extremity normal to inspection Extremity Narrative: Patient has mild right lower leg swelling comparing to the left Neuro oriented x3 and CN's II-XII intact bilaterally Sensorium / Orientation: alert Motor Exam: strength 5/5 throughout Psych mental status grossly normal Mood & Affect: Negative for depressed or tearful Skin no rashes or lesions noted and no wounds MDM MDM MDM Narrative Medical decision making narrative: Differential diagnosis includes but not limited to pulmonary emboli pneumonia pneumothorax CHF acute coronary syndrome White count 14.1 hemoglobin 13.9 coags obtained and negative. Troponin slightly elevated at 282 BNP 113.4 lactic acid 3.2 which I believe is due to her hypoxia. Creatinine 1.13. EKG demonstrates sinus tachycardia with a rate of 119 bpm. CTA of the chest demonstrates bilateral pulmonary emboli with evidence of heart strain. Emboli in main pulmonary arteries noted. Patient was placed on heparin drip. Her oxygen is currently 91% on 15 L high flow nasal cannula. Patient is feeling symptomatically much better. Plan will be admission into hospital. History & Record Review Discussion w/independent historian: EMS personnel and Patient Additional record(s) reviewed:: Prior inpatient record, Prior ED visit and Prior labs Lab Data Attestation: I reviewed the patient's lab results. Labs: Laboratory Results - last 24 hr 03/12/24 12:10 WBC 14.1 H RBC 4.77 Hgb 13.9 Hct 42.7 MCV 89.5 MCH 29.1 MCHC 32.6 D RDW Std Deviation 51.7 H RDW Coeff of Larry 16.1 H Plt Count 266 MPV 10.0 Immature Gran % (Auto) 2.300 H Neut % (Auto) 75.0 H Lymph % (Auto) 13.4 L [place] % (Auto) 8.1 Eos % (Auto) 0.1 Baso % (Auto) 1.1 H Absolute Neuts (auto) 10.6 H Absolute Lymphs (auto) 1.90 Nucleated RBC % 0 PT 13.4 INR 1.0 APTT 22.2 L Sodium 141 Potassium 4.1 Chloride 108 H Carbon Dioxide 24.0 Anion Gap 9 BUN 28 H Creatinine 1.13 H Estim Creat Clear Calc 48.36 Est GFR (MDRD) Af Amer 60 Est GFR (MDRD) Non-Af 50 L BUN/Creatinine Ratio 24.8 H Glucose 223 H Lactic Acid 3.2 H* Calcium 9.6 Total Bilirubin 0.60 Direct Bilirubin 0.17 AST 33 ALT 33 Alkaline Phosphatase 84 Troponin I High Sens 282 H* B-Natriuretic Peptide 113.4 H Total Protein 6.6 Albumin 3.4 Globulin 3.2 Radiography Diagnostic Testing: Clinical Impression(s) from Imaging Studies Chest CTA 03/12/24 12:28 IMPRESSION: 1. There are extensive bilateral pulmonary emboli most proximally in the right more severe than left main pulmonary arteries. The overall burden may have increased particularly on the right. There is right heart strain. 2. Minimal bandlike opacities may be scarring or atelectasis in the upper lobes. No consolidative pulmonary opacities are present. No discrete evidence of pulmonary infarct at this time. Electronically Signed: Jens Jean Baptiste DO at 14:00 EDT , ADDENDUM: 03/12/24 1416 IMPRESSION: 1. There are extensive bilateral pulmonary emboli most proximally in the right more severe than left main pulmonary arteries. The overall burden may have increased particularly on the right. There is right heart strain. 2. Minimal bandlike opacities may be scarring or atelectasis in the upper lobes. No consolidative pulmonary opacities are present. No discrete evidence of pulmonary infarct at this time. N.B. : The above Results were Read Back by Jens Jean Baptiste DO to Myles Rivera DO, and understanding confirmed on 03/12/2024 14:09:13 (ET). Electronically Signed: Jens Jean Baptiste DO at 14:00 EDT , EKG Initial EKG: Attestation: I personally reviewed and interpreted this EKG as follows: Comments: Sinus tachycardia ventricular rate of 119 bpm Management Discussion w/another healthcare provider: Hospitalist Critical Care Time Critical Care Time: Yes Critical care time (excluding procedures): 30-74 minutes (35 min), Including time spent:, Discussing w/Patient &/or Family/Allergist/Immunologist Physician, Discussing w/Consultants, Arranging Admission or Transfer and Performing Direct Patient Care at Bedside Discharge Plan Dx/Rx/DC Orders Clinical Impression: Acute hypoxic respiratory failure, Bilateral pulmonary embolism, Acute respiratory distress Disposition Disposition: Acute Care [facility]
[2024-03-12 12:51] LABS: Absolute Neutrophil Count 10.6 X10^3/uL (2.0-7.7); Basophil# 0.16 X10^3/uL; Basophil% 1.1 % (0-1); Eosinophil# 0.02 X10^3/uL; Eosinophils% 0.1 % (0-5); Hematocrit 42.7 % (37-47); Hemoglobin 13.9 g/dL (12.0-15.0); Lymphocyte % 13.4 % (19-41); Mean Corp Hgb Conc 32.6 g/dL (32-36); Mean Corpuscular Hgb 29.1 pg (27.0-32.0); Mean Corpuscular Volume 89.5 fL (81-99); Monocyte# 1.15 X10^3/uL; Monocyte% 8.1 % (0-10); NRBC Flagged by Analyzer 0 % (0-5); Neutrophil # 10.59 X10^3/uL (2.7-7.7); Platelet Count 266 K/mm3 (150-450); RBC Distribution Width CV 16.1 % (11.6-14.6); RBC Distribution Width SD 51.7 fl (35.1-43.9); Red Blood Count 4.77 M/mm3 (4.2-5.4); White Blood Count 14.1 K/mm3 (4.4-11.0)
[2024-03-12] MEDS: Ondansetron 4 MG/2 ML Vial IV ×2 (12:57→16:18)
[2024-03-12 12:59] LABS: Partial Thromboplast Time 22.2 Seconds (24.1-36.2); Prothrombin Time (Protime)PT. 13.4 SECONDS (11.7-14.9)
[2024-03-12 13:08] LABS: BNP,B-Type NATRIURETIC PEPTIDE 113.4 pg/mL (0-100)
[2024-03-12 13:16] LABS: Lactic Acid 3.2 mmol/L (0.4-1.9)
[2024-03-12 13:17] LABS: AST(SGOT) 33 U/L (15-37); Alanine Aminotransfer ALT/SGPT 33 U/L (13-56); Albumin, Serum 3.4 g/dL (3.2-5.0); Alkaline Phosphatase 84 U/L (45-117); Anion Gap 9 (5-15); BUN 28 mg/dL (7-18); BUN/Creat Ratio 24.8 RATIO (10-20); Bilirubin, Direct 0.17 mg/dL (0.00-0.30); Calcium,Total 9.6 mg/dL (8.5-10.1); Chloride 108 mmol/L (98-107); Creatinine, Serum 1.13 mg/dL (0.55-1.02); EST Glomerular Filtration Rate 50 mL/min (>60); Est Glom Filt Rate - Afr Amer 60 mL/min (>60); Estimated Creatinine Clearance 48.36 ml/min; Globulin 3.2 g/dL (2.2-4.2); Glucose 223 mg/dL (74-106); Potassium 4.1 mmol/L (3.5-5.1); Protein, Total 6.6 g/dL (6.4-8.2); Sodium Level 141 mmol/L (136-145); Troponin-I HS 282 pg/mL (3.0-54.0)
--- NOTE | 2024-03-12 13:20 | NURSING ---
Call from lab, Troponin 282, Lactic acid 3.2. Dr. Rivera made aware.
[2024-03-12] MEDS: Heparin Injection (Vial) 5,000 UNIT/ML VIAL 7500 UNIT IV (14:05)
[2024-03-12] MEDS: HEPARIN/D5w 25,000 UNITS 25,000 UNITS/250 ML IV.SOLN. 14 UNITS CONT INF (14:06)
--- NOTE | 2024-03-12 15:37 | VDLE_ITS ---
Reason For Study: Pulmonary Embolism RIGHT LEFT GSV is normal. GSV is normal. CFV is compressible, spontaneous, phasic, CFV is compressible, spontaneous, phasic, competent and demonstrates normal competent, and demonstrates normal augmentation. augmentation. FV is compressible, spontaneous, phasic, FV is compressible, spontaneous, phasic, competent and demonstrates normal competent and demonstrates normal augmentation. augmentation. POP V is compressible, spontaneous, phasic, LT PerV is compressible. competent and demonstrates normal Lt PopV, Lt T/P Trunk, Lt GastrocV, and Lt augmentation. PTV are dilated and NON COMPRESSIBLE T/P Trunk is compressible. consistent with acute DVT PTV is compressible. Hypoechoic, non vascular structure noted Lt RT PerV is compressible. Pop Fossa measuring 1.10cm x 2.60cm. Procedure This is a venous duplex using B-mode, color flow and spectral Doppler. Exam performed portable in ICU/CCU. A preliminary report was called and/or faxed to Tricia MATHIAS. VL/Venous Duplex US - Eben Extrem Interpretation Summary Acute deep vein thrombosis is noted in the left popliteal vein, tibioperoneal t runk vein, gastrocnemius vein, posterior tibial vein. Deep veins of the right lower extremity are patent and compressible segmentally . There is no evidence of right lower extremity deep vein thrombosis. The bilateral great sap henous veins appear patent and compressible segmentally Hypoechoic, non vascular structure noted left popliteal fossa measuring 1.10cm x 2.60cm Ordering Physician: Nelson Carr Referring Physician: Ed Bowman Chi Performed By: Chelo Brown, WILFRIDO, RVT
--- NOTE | 2024-03-12 15:37 | ECHOCS_ITS ---
Reason For Study: Pulmonary Embolism Procedure This was a 2D Doppler, Color Flow transthoracic echocardiogram. The study was technically difficult. Exam performed portable in ICU/CCU. Left Ventricle Normal left ventricle. The estimated ejection fraction is 55-60 %. Right Ventricle Moderately dilated right ventricle. Mild to moderate global right ventricular systolic dysfunction. Atria Normal left atrium. The right atrium is mildly enlarged. Mitral Valve The mitral valve is structurally normal. No prolapse or stenosis seen. Trivial mitral valve insufficiency. Tricuspid Valve Normal tricuspid valve. Mild tricuspid valve insufficiency. Aortic Valve Trisinus/trileaflet aortic valve. Pulmonic Valve The pulmonic valve is not well visualized. Great Vessels Normal aortic root. Pericardium/Pleural No pericardial effusion. Medication Diluted definity 2ml given slow IV push to enhance endocardial definition. MMode/2D Measurements & Calculations LVIDd: 2.9 cm IVSd: 1.1 cm Ao root diam: 3.2 cm LVIDs: 2.1 cm LVPWd: 0.95 cm LA dimension: 3.1 cm RVDd: 3.4 cm FS: 27.4 % LAV(MOD-bp): 32.0 ml LA A4 area: 12.6 cm2 RA A4 area: 13.7 cm2 LAV(MOD-bp) Indexed: 16.0 ml/m2 LAV(MOD-sp2): 31.2 ml LAV(MOD-sp4): 24.1 ml TAPSE: 1.0 cm Time Measurements MV dec time: 0.28 sec Doppler Measurements & Calculations MV E max nabor: 44.4 cm/sec Lat Peak E' Nabor: 6.6 cm/sec Med Peak E' Nabor: 7.3 cm/sec MV A max nabor: 118.7 cm/sec E/E' lat: 6.7 E/E' med: 6.1 MV E/A: 0.37 MV V2 max: 141.8 cm/sec MV P1/2t max nabor: 51.0 cm/sec Ao V2 max: 117.4 cm/sec MV max P.0 mmHg MV P1/2t: 83.5 msec Ao max P.5 mmHg MV V2 mean: 50.1 cm/sec MV dec slope: 178.9 cm/sec2 MV mean P.4 mmHg MVA(P1/2t): 2.6 cm2 MV V2 VTI: 22.6 cm LV V1 max: 82.2 cm/sec PA V2 max: 85.3 cm/sec TR max nabor: 259.8 cm/sec LV V1 max P.7 mmHg PA max PG (full): 2.0 mmHg TR max P.0 mmHg ECHO/Echo Complete W/ Contrast Interpretation Summary The estimated ejection fraction is 55-60 %. Normal LV systolic function Grade 1 diastolic dysfunction No significant change from previous echo Contrast echo/Definity used. Ordering Physician: Nelson Carr Performed By: Dc Downey RCS
--- NOTE | 2024-03-12 15:42 | HP.PCM.HOS_ITS ---
[facility] - General General Date of Admission: 03/12/24 Date of Service: 03/12/24 Chief Complaint: Shortness of breath HPI Narrative BARBARA HERNANDEZ, is a 73 F with a significant history of DVT, and PE after left foot surgery and who was on [facility] shortness of breath that started on the same day of presentation. In December 2023 she had a left foot fracture with subsequent surgery and after which she developed DVT and PE as above. She has been on Eliquis ever since. However because of back pain there was a planned injection at back so patient was instructed to hold off her Eliquis. However after a week and a half of holding of her Eliquis she developed shortness of breath as above. Associated with her symptoms is weakness. . She has fibromyalgia and she takes Vicodin 7.53 times a day She has chronic low back pain [facility] Medical History Depression History of kidney stones Acute calculous cholecystitis Laceration of left index finger Pulmonary emboli Hypoxia Elevated troponin Pulmonary embolism and infarction Fracture of left foot Episode of syncope Fibromyalgia Anxiety Home Medications ?Medication ?Instructions ?Recorded ?Last Taken ?Type hydrocodone 7.5 mg-acetaminophen 1 tab PO TID PRN PRN pain 12/15/23 03/12/24 10:00 History 325 mg tablet levothyroxine 25 mcg tablet 25 mcg PO DAILY thyroid 12/15/23 03/11/24 History tolterodine 2 mg tablet 2 mg PO QHS over active bladder 12/15/23 03/11/24 20:00 History apixaban 5 mg (74 tabs) tablets in 5 mg PO BID PE #74 tabs 12/16/23 02/27/24 Rx a dose pack (Eliquis DVT-PE Treat 30D Start) buspirone 10 mg tablet 10 mg PO TID anxiety 02/23/24 03/11/24 History cholecalciferol (vitamin D3) 25 25 mcg PO DAILY supplement 02/23/24 03/06/24 History mcg (1,000 unit) capsule omeprazole 40 mg capsule,delayed 40 mg PO QDAY unknown #30 caps 03/02/24 03/11/24 Rx release Allergy/AdvReac Type Severity Reaction Status Date / Time No Known Allergies Allergy Verified 03/12/24 11:39 Family History Mother Myocardial infarction Sister Diabetes Cancer Sister No problems noted. Father Cancer Surgical History S/P tonsillectomy S/P appendectomy S/P excision of ganglion cyst History of partial hysterectomy History of cholecystectomy Social History Smoking Status: Never smoker ROS ROS Narrative Pertinent positives and pertinent negatives as noted in HPI. All other systems were reviewed and are negative Vital Signs Vital Signs Vital Signs: 03/12/24 11:39 03/12/24 11:49 03/12/24 11:50 Temperature 98.0 F 98.2 F Temperature Source Oral Oral Pulse Rate 119 H 115 H Respiratory Rate 24 H 19 H Respiratory Effort Respiratory Depth Respiratory Pattern Blood Pressure 147/90 H 122/76 H Blood Pressure Mean 109 91 Pulse Ox 96 90 93 Oxygen Delivery Method Non-Rebreather High Flow Nasal Cannula Oxygen Flow Rate (L/min) 15 2 03/12/24 11:53 03/12/24 12:15 03/12/24 12:29 Temperature Temperature Source Pulse Rate Respiratory Rate Respiratory Effort Normal Respiratory Depth Normal Respiratory Pattern Normal Blood Pressure Blood Pressure Mean Pulse Ox 90 92 Oxygen Delivery Method Nasal Cannula High Flow High Flow Oxygen Flow Rate (L/min) 4 15 15 03/12/24 12:38 03/12/24 12:49 03/12/24 13:00 Temperature 96.3 F L Temperature Source Temporal Pulse Rate 115 H 111 H 109 H Respiratory Rate 24 H 20 H 22 H Respiratory Effort Respiratory Depth Respiratory Pattern Blood Pressure 127/97 H 122/76 H 113/86 H Blood Pressure Mean 107 91 95 Pulse Ox 90 91 91 Oxygen Delivery Method High Flow High Flow High Flow Oxygen Flow Rate (L/min) 15 15 15 03/12/24 13:00 03/12/24 14:00 03/12/24 15:00 Temperature 96.8 F L 98.6 F Temperature Source Temporal Temporal Pulse Rate 104 H 108 H 108 H Respiratory Rate 22 H 20 H 18 Respiratory Effort Respiratory Depth Respiratory Pattern Blood Pressure 127/97 H 125/90 H 142/90 H Blood Pressure Mean 107 101 107 Pulse Ox 90 91 94 Oxygen Delivery Method High Flow High Flow High Flow Oxygen Flow Rate (L/min) 15 15 15 Weight Weight: 92.533 kg Body Mass Index (BMI) 33.9 Physical Exam Narrative Physical exam: General: Well-nourished, well-developed. Head: Normocephalic, atraumatic, no tenderness Eyes: Vision is grossly intact. EOMI ENT, no trauma, moist mucous membranes, no rhinorrhea Neck: Nontender, No thyromegaly. CVS: Regular rate and rhythm. S1-S2 present. No murmur, gallop or rub. Respiratory : clear to auscultation bilaterally, chest wall nontender Abdomen: Soft, nontender, nondistended, normal bowel sounds, no masses : Deferred Back: Nontender, no CVA tenderness, no midline spinal tenderness, deformities, step-offs Extremities: Swelling of right lower leg and foot. Nontender full range of motion. Skin: Normal color, no trauma, abrasions Neuro: Alert, oriented, cranial nerves II through XII grossly intact. Psychiatry: Normal mood. Normal affect. Not depressed. Not anxious. Results Lab / Micro Data 03/12/24 12:10 03/12/24 12:10 Labs: Laboratory Results - last 24 hr 03/12/24 12:10: WBC 14.1 H, RBC 4.77, Hgb 13.9, Hct 42.7, MCV 89.5, MCH 29.1, M CHC 32.6 D, RDW Std Deviation 51.7 H, RDW Coeff of Larry 16.1 H, Plt Count 266, MPV 10.0, Immature Gran % (Auto) 2.300 H, Neut % (Auto) 75.0 H, Lymph % (Auto) 13.4 L, [place] % (Auto) 8.1, Eos % (Auto) 0.1, Baso % (Auto) 1.1 H, Absolute Neuts (auto) 10.6 H, Absolute Lymphs (auto) 1.90, Nucleated RBC % 0, PT 13.4, INR 1.0, APTT 22.2 L, Sodium 141, Potassium 4.1, Chloride 108 H, Carbon Dioxide 24.0, Anion Gap 9, BUN 28 H, Creatinine 1.13 H, Estim Creat Clear Calc 48.36, Est GFR (MDRD) Af Amer 60, Est GFR (MDRD) Non-Af 50 L, BUN/Creatinine Ratio 24.8 H, G lucose 223 H, Lactic Acid 3.2 H*, Calcium 9.6, Total Bilirubin 0.60, Direct Bilirubin 0.17, AST 33, ALT 33, Alkaline Phosphatase 84, Troponin I High Sens 282 H*, B-Natriuretic Peptide 113.4 H, Total Protein 6.6, Albumin 3.4, Globulin 3.2 Imaging Radiology Impression Chest CTA 03/12/24 12:28 IMPRESSION: 1. There are extensive bilateral pulmonary emboli most proximally in the right more severe than left main pulmonary arteries. The overall burden may have increased particularly on the right. There is right heart strain. 2. Minimal bandlike opacities may be scarring or atelectasis in the upper lobes. No consolidative pulmonary opacities are present. No discrete evidence of pulmonary infarct at this time. Electronically Signed: Jens Jean Baptiste DO at 14:00 EDT , ADDENDUM: 03/12/24 1416 IMPRESSION: 1. There are extensive bilateral pulmonary emboli most proximally in the right more severe than left main pulmonary arteries. The overall burden may have increased particularly on the right. There is right heart strain. 2. Minimal bandlike opacities may be scarring or atelectasis in the upper lobes. No consolidative pulmonary opacities are present. No discrete evidence of pulmonary infarct at this time. N.B. : The above Results were Read Back by Jens Jean Baptiste DO to Myles Rivera DO, and understanding confirmed on 03/12/2024 14:09:13 (ET). Electronically Signed: Jens Jean Baptiste DO at 14:00 EDT , Assessment & Plan Assessment/Plan (1) Bilateral pulmonary embolism: (2) Low back pain: QUALIFIERS: Chronicity: chronic Back pain laterality: bilateral Sciatica presence: unspecified whether sciatica present Qualified Code(s): M 54.50 - Low back pain, unspecified; G89.29 - Other chronic pain (3) Acute respiratory distress: (4) Fibromyalgia: (5) Lactic acidosis: (6) Neutrophilia: PLAN: Plan CTA chest was independently interpreted. Bilateral PE with right burden greater than left. Also with right heart strain. Started on heparin drip. Heparin drip is monitored for with APTT. Fibromyalgia and chronic back pain?Home Vicodin restarted. Hypothyroidism Levothyroxine started. Anxiety disorder?buspirone continued Neutrophilia?trend CBC. Leukocytosis?lactic acid trended. No evidence of infection at this time Time spent in the patient's overall evaluation,decision-making process, review of diagnostic data, adjustment of management, discussion with other providers, nursing and ancillary staff involved in patient's care documentation, 70 minutes. Advance care planning: Discussed with patient and family advanced directives as well as CODE STATUS. Explained various CODE STATUS: FULL CODE, DNR CCA, DNR CCA with no intubation, and DNR CC- and what each meant. Patient elected to be a full code with CPR and intubation if warranted. Order was placed. Surrogate decision maker is her son Maria Luisa Henley. Time spent on discussion 16 minutes. Charges/Coding Multi Select Codes Visit Charges Visit Charges: 48400 Init Hosp Hospitalists' Procedures Procedures: 64857 Advncd Care Plan 30 Min
[2024-03-12 16:42] LABS: Reflex Lactate? Y
[2024-03-12] MEDS: HYDROcodone Bitartrate/Apap 5/325 Tablet PO (17:31)
[2024-03-12 17:49] LABS: Lactic Acid 2.1 mmol/L (0.4-1.9)
[2024-03-12] MEDS: 0.9% Saline Lock 10 ML Syringe IV ×2 (20:15→21:00)
[2024-03-12 20:49] LABS: Partial Thromboplast Time 219.3 Seconds (24.1-36.2)
[2024-03-12] MEDS: busPIRone 5 MG Tablet 10 MG PO (20:58)
[2024-03-12] MEDS: Tolterodine Tartrate 2 MG CAP.SA PO (20:58)
[2024-03-12] MEDS: MELATONIN 3 MG TABLET PO (23:07)
[2024-03-13] VITALS (28 sets, daily range): BP systolic 90–140; BP diastolic 51–92; PULSE 82–105; RESP 12–24; TEMP 36.1–36.8; O2SAT 92–99; BMI 36.7
[2024-03-13] MEDS: busPIRone 5 MG Tablet 10 MG PO ×3 (04:58→20:45)
[2024-03-13] MEDS: 0.9% Saline Lock 10 ML Syringe IV ×2 (04:58→20:46)
[2024-03-13] MEDS: Levothyroxine 25 MCG TABLET PO (04:58)
[2024-03-13 05:17] LABS: Absolute Lymphocyte Count 2.44 X10^3/uL (0.83-4.51); Absolute Neutrophil Count 7.1 X10^3/uL (2.0-7.7); Basophil# 0.07 X10^3/uL; Basophil% 0.6 % (0-1); Eosinophil# 0.05 X10^3/uL; Eosinophils% 0.4 % (0-5); Hematocrit 39.9 % (37-47); Hemoglobin 12.7 g/dL (12.0-15.0); Lymphocyte # 2.44 X10^3/ul (0.83-4.51); Lymphocyte % 21.7 % (19-41); Mean Corp Hgb Conc 31.8 g/dL (32-36); Mean Corpuscular Hgb 29.3 pg (27.0-32.0); Mean Corpuscular Volume 91.9 fL (81-99); Mean Platelet Vol. 9.6 fl (6.2-12.0); Monocyte# 1.24 X10^3/uL; NRBC Flagged by Analyzer 0 % (0-5); Neutrophil # 7.11 X10^3/uL (2.7-7.7); Neutrophil % 63.5 % (47-70); Platelet Count 209 K/mm3 (150-450); RBC Distribution Width CV 16.5 % (11.6-14.6); RBC Distribution Width SD 55.4 fl (35.1-43.9); Red Blood Count 4.34 M/mm3 (4.2-5.4); White Blood Count 11.2 K/mm3 (4.4-11.0)
[2024-03-13 05:29] LABS: Anion Gap 6 (5-15); BUN 27 mg/dL (7-18); BUN/Creat Ratio 28.5 RATIO (10-20); Calcium,Total 8.8 mg/dL (8.5-10.1); Chloride 111 mmol/L (98-107); Creatinine, Serum 0.95 mg/dL (0.55-1.02); EST Glomerular Filtration Rate 61 mL/min (>60); Est Glom Filt Rate - Afr Amer 74 mL/min (>60); Estimated Creatinine Clearance 55.44 ml/min; Glucose 160 mg/dL (74-106); Sodium Level 142 mmol/L (136-145)
[2024-03-13 05:46] LABS: Partial Thromboplast Time 73.1 Seconds (24.1-36.2)
--- NOTE | 2024-03-13 06:01 | EX.PCM.CONCC ---
Assessment & Plan Assessment/Plan (1) Acute hypoxic respiratory failure: PLAN: Plan RECOMMENDATIONS: 1. Continue weight-based heparin infusion. 2. No need for lower extremity Dopplers from my perspective. 3. Supplemental oxygen for saturations greater than 90%. 4. Vascular surgery consultation for thrombectomy consideration. IMPRESSIONS: 1. Respiratory failure with hypoxemia secondary to submassive PE The patient was hospitalized in December 2023 following a mechanical fall, which was complicated by bilateral pulmonary emboli. She was discharged home on Eliquis, which has been continued until 1.5 weeks ago, when it was discontinued in order to help facilitate epidural spinal injections for pain control. That the patient then presented once again with acute onset dyspnea and radiographic evidence of proximal bilateral PE with biochemical evidence of right heart strain. The patient has been started on a weight-based heparin infusion, which will be continued for now. Supplemental oxygen will be maintained for saturations greater than 90%. Surface echocardiogram is pending. There is extensive clot burden, with proximal involvement, more so on the right side. Given the patient's current oxygen requirement and heart strain noted on CTA chest, will involve vascular surgery as thrombectomy may be a consideration. 2. History of obesity/chronic pain syndrome/hypothyroidism/anxiety/depression Complicates care, management, recovery and prognosis. Continue home medications as indicated. This note was generated with [employer] dictation software. It may contain incorrect words, spelling, and punctuation that were not noted in checking the note before signing. HPI Consult Data Date of Consult: 03/13/24 HPI Narrative Reason for Consultation: Bilateral pulmonary emboli HPI Narrative: The patient is a 73-year-old female, with a history as outlined below, who presented to the emergency department on March 12 via EMS with shortness of breath. The patient has a known history of hypothyroidism, obesity, depression, anxiety, fibromyalgia and osteoarthritis. She sustained a mechanical fall resulting in left foot fracture in November 2023, which was later complicated by the development of bilateral pulmonary emboli. The patient was hospitalized for the aforementioned from December 13 through December 15, at which time, she was discharged home on Eliquis. The patient was referred to follow-up with hematology after discharge, but failed to do so. The patient reported that approximately 1.5 weeks ago she was taken off of her Eliquis, as her spine surgeon was planning to perform epidural injections for pain control. Prior to her hospitalization in December, the patient denied a history of venous thromboembolic disease. On presentation to the emergency department, the patient was documented to be afebrile and hemodynamically stable. She was, nevertheless, tachycardic and tachypneic at presentation. Initial laboratory evaluation revealed a white blood cell count of 14,000. Chemistry profile was notable for a creatinine of 1.13. Lactate was elevated at 3.2. Troponin was increased to 282 with a BNP of 113. CTA demonstrated extensive bilateral pulmonary emboli with evidence of right heart strain. The patient was subsequently placed on a weight-based heparin infusion and admitted to the medical intensive care unit for further management. [facility] Medical History Depression History of kidney stones Acute calculous cholecystitis Laceration of left index finger Pulmonary emboli Hypoxia Elevated troponin Pulmonary embolism and infarction Fracture of left foot Episode of syncope Fibromyalgia Anxiety Home Medications ?Medication ?Instructions ?Recorded ?Last Taken ?Type hydrocodone 7.5 mg-acetaminophen 1 tab PO TID PRN PRN pain 12/15/23 03/12/24 10:00 History 325 mg tablet levothyroxine 25 mcg tablet 25 mcg PO DAILY thyroid 12/15/23 03/11/24 History tolterodine 2 mg tablet 2 mg PO QHS over active bladder 12/15/23 03/11/24 20:00 History apixaban 5 mg (74 tabs) tablets in 5 mg PO BID PE #74 tabs 12/16/23 02/27/24 Rx a dose pack (Eliquis DVT-PE Treat 30D Start) buspirone 10 mg tablet 10 mg PO TID anxiety 02/23/24 03/11/24 History cholecalciferol (vitamin D3) 25 25 mcg PO DAILY supplement 02/23/24 03/06/24 History mcg (1,000 unit) capsule omeprazole 40 mg capsule,delayed 40 mg PO QDAY unknown #30 caps 03/02/24 03/11/24 Rx release Allergy/AdvReac Type Severity Reaction Status Date / Time No Known Allergies Allergy Verified 03/12/24 11:39 Family History Mother Myocardial infarction Sister Diabetes Cancer Sister No problems noted. Father Cancer Surgical History S/P tonsillectomy S/P appendectomy S/P excision of ganglion cyst History of partial hysterectomy History of cholecystectomy Social History Smoking Status: Never smoker ROS ROS Narrative 10 systems were reviewed with pertinent positives as noted in the HPI above. Physical Exam Const alert and no apparent distress Constitutional Narrative: Obese. Resting comfortably in bed on heated high flow oxygen. General Appearance: cooperative HEENT normocephalic and head/scalp atraumatic Eyes PERRL, EOMs intact bilaterally and conjunctivae normal Neck supple General: trachea midline Chest inspection of chest normal Resp normal respiratory effort Auscultation: Negative for rales, rhonchi or wheezes Cardio S1 normal heart sound and S2 normal heart sound Rhythm: abnormal rhythm GI normal to inspection, nondistended, normoactive bowel sounds Extremity General Extremity: edema; Negative for clubbing Skin no rashes or lesions noted Neuro oriented x3, CN's II-XII intact bilaterally, moves all extremities and no focal motor deficits Psych cooperative and affect normal Lab / Micro Data 03/13/24 05:08 03/13/24 05:08 Labs: Laboratory Results - last 24 hr 03/12/24 12:10: WBC 14.1 H, RBC 4.77, Hgb 13.9, Hct 42.7, MCV 89.5, MCH 29.1, MCHC 32.6 D, RDW Std Deviation 51.7 H, RDW Coeff of Larry 16.1 H, Plt Count 266, MPV 10.0, Immature Gran % (Auto) 2.300 H, Neut % (Auto) 75.0 H, Lymph % (Auto) 13.4 L, [place] % (Auto) 8.1, Eos % (Auto) 0.1, Baso % (Auto) 1.1 H, Absolute Neuts (auto) 10.6 H, Absolute Lymphs (auto) 1.90, Nucleated RBC % 0, PT 13.4, INR 1.0, APTT 22.2 L, Sodium 141, Potassium 4.1, Chloride 108 H, Carbon Dioxide 24.0, Anion Gap 9, BUN 28 H, Creatinine 1.13 H, Estim Creat Clear Calc 48.36, Est GFR (MDRD) Af Amer 60, Est GFR (MDRD) Non-Af 50 L, BUN/Creatinine Ratio 24.8 H, Glucose 223 H, Lactic Acid 3.2 H*, Calcium 9.6, Total Bilirubin 0.60, Direct Bilirubin 0.17, AST 33, ALT 33, Alkaline Phosphatase 84, Troponin I High Sens 282 H*, B-Natriuretic Peptide 113.4 H, Total Protein 6.6, Albumin 3.4, Globulin 3.2 03/12/24 17:10: Lactic Acid 2.1 H* 03/12/24 20:15: APTT 219.3 H* 03/13/24 05:08: WBC 11.2 H, RBC 4.34, Hgb 12.7, Hct 39.9, MCV 91.9, MCH 29.3, MCHC 31.8 L, RDW Std Deviation 55.4 H, RDW Coeff of Larry 16.5 H, Plt Count 209, MPV 9.6, Immature Gran % (Auto) 2.800 H, Neut % (Auto) 63.5, Lymph % (Auto) 21.7, [place] % (Auto) 11.0 H, Eos % (Auto) 0.4, Baso % (Auto) 0.6, Absolute Neuts (auto) 7.1, Absolute Lymphs (auto) 2.44, Nucleated RBC % 0, APTT 73.1 H, Sodium 142, Potassium 4.0, Chloride 111 H, Carbon Dioxide 25.0, Anion Gap 6, BUN 27 H, Creatinine 0.95, Estim Creat Clear Calc 55.44, Est GFR (MDRD) Af Amer 74, Est GFR (MDRD) Non-Af 61, BUN/Creatinine Ratio 28.5 H, Glucose 160 H, Calcium 8.8 Imaging Radiology Impression Chest CTA 03/12/24 12:28 IMPRESSION: 1. There are extensive bilateral pulmonary emboli most proximally in the right more severe than left main pulmonary arteries. The overall burden may have increased particularly on the right. There is right heart strain. 2. Minimal bandlike opacities may be scarring or atelectasis in the upper lobes. No consolidative pulmonary opacities are present. No discrete evidence of pulmonary infarct at this time. Electronically Signed: Jens Jean Baptiste DO at 14:00 EDT , ADDENDUM: 03/12/24 1416 IMPRESSION: 1. There are extensive bilateral pulmonary emboli most proximally in the right more severe than left main pulmonary arteries. The overall burden may have increased particularly on the right. There is right heart strain. 2. Minimal bandlike opacities may be scarring or atelectasis in the upper lobes. No consolidative pulmonary opacities are present. No discrete evidence of pulmonary infarct at this time. N.B. : The above Results were Read Back by Jesn Jean Baptiste DO to Myles Rivera DO, and understanding confirmed on 03/12/2024 14:09:13 (ET). Electronically Signed: Jens Jean Baptiste DO at 14:00 EDT , Charges/Coding Visit Charges Inpatient E&M: 59931 Init Hosp L3
--- NOTE | 2024-03-13 07:12 | CPS ---
decreased pt to 72% at this time
--- NOTE | 2024-03-13 07:57 | PCM.PN.HOSP ---
Reason for Visit Reason for Visit: Diagnoses Disorder of white blood cells, unspecified (03/12/24) Acidosis, unspecified (03/12/24) Other chronic pain (03/12/24) Other pulmonary embolism without acute cor pulmonale (03/12/24) Acute respiratory failure with hypoxia (03/12/24) Low back pain, unspecified (03/12/24) Fibromyalgia (03/12/24) Acute respiratory distress (03/12/24) Objective Data Objective Data Vital Signs: Vital Signs Temp Pulse Resp BP Pulse Ox O2 Del Method O2 Flow Rate 97.9 F 91 17 114/76 99 Airvo 50 03/13/24 06:00 03/13/24 07:00 03/13/24 07:00 03/13/24 07:00 03/13/24 07:12 03/13/24 07:12 03/13/24 07:12 FiO2 70 03/13/24 07:12 Oxygen Flow Rate (L/min) 50 Oxygen Delivery Method Airvo Weight: 207 lb 3.752 oz Body Mass Index (BMI) 36.7 Intake & Output: Intake and Output for Last 24 Hours 03/11/24 03/12/24 03/13/24 23:59 23:59 23:59 Intake Total 574.97 / 574.97 74.25 / 74.25 Output Total 150 / 150 100 / 100 Balance 424.97 / 424.97 -25.75 / -25.75 Lab / Micro Data 03/13/24 05:08 03/13/24 05:08 Labs: Laboratory Results - last 24 hr 03/12/24 12:10: WBC 14.1 H, RBC 4.77, Hgb 13.9, Hct 42.7, MCV 89.5, MCH 29.1, MCHC 32.6 D, RDW Std Deviation 51.7 H, RDW Coeff of Larry 16.1 H, Plt Count 266, MPV 10.0, Immature Gran % (Auto) 2.300 H, Neut % (Auto) 75.0 H, Lymph % (Auto) 13.4 L, [place] % (Auto) 8.1, Eos % (Auto) 0.1, Baso % (Auto) 1.1 H, Absolute Neuts (auto) 10.6 H, Absolute Lymphs (auto) 1.90, Nucleated RBC % 0, PT 13.4, INR 1.0, APTT 22.2 L, Sodium 141, Potassium 4.1, Chloride 108 H, Carbon Dioxide 24.0, Anion Gap 9, BUN 28 H, Creatinine 1.13 H, Estim Creat Clear Calc 48.36, Est GFR (MDRD) Af Amer 60, Est GFR (MDRD) Non-Af 50 L, BUN/Creatinine Ratio 24.8 H, Glucose 223 H, Lactic Acid 3.2 H*, Calcium 9.6, Total Bilirubin 0.60, Direct Bilirubin 0.17, AST 33, ALT 33, Alkaline Phosphatase 84, Troponin I High Sens 282 H*, B-Natriuretic Peptide 113.4 H, Total Protein 6.6, Albumin 3.4, Globulin 3.2 03/12/24 17:10: Lactic Acid 2.1 H* 03/12/24 20:15: APTT 219.3 H* 03/13/24 05:08: WBC 11.2 H, RBC 4.34, Hgb 12.7, Hct 39.9, MCV 91.9, MCH 29.3, MCHC 31.8 L, RDW Std Deviation 55.4 H, RDW Coeff of Larry 16.5 H, Plt Count 209, MPV 9.6, Immature Gran % (Auto) 2.800 H, Neut % (Auto) 63.5, Lymph % (Auto) 21.7, [place] % (Auto) 11.0 H, Eos % (Auto) 0.4, Baso % (Auto) 0.6, Absolute Neuts (auto) 7.1, Absolute Lymphs (auto) 2.44, Nucleated RBC % 0, APTT 73.1 H, Sodium 142, Potassium 4.0, Chloride 111 H, Carbon Dioxide 25.0, Anion Gap 6, BUN 27 H, Creatinine 0.95, Estim Creat Clear Calc 55.44, Est GFR (MDRD) Af Amer 74, Est GFR (MDRD) Non-Af 61, BUN/Creatinine Ratio 28.5 H, Glucose 160 H, Calcium 8.8 Radiography Diagnostic Testing: Radiology Impression Chest CTA 03/12/24 12:28 IMPRESSION: 1. There are extensive bilateral pulmonary emboli most proximally in the right more severe than left main pulmonary arteries. The overall burden may have increased particularly on the right. There is right heart strain. 2. Minimal bandlike opacities may be scarring or atelectasis in the upper lobes. No consolidative pulmonary opacities are present. No discrete evidence of pulmonary infarct at this time. Electronically Signed: Jens Jean Baptiste DO at 14:00 EDT , ADDENDUM: 03/12/24 1416 IMPRESSION: 1. There are extensive bilateral pulmonary emboli most proximally in the right more severe than left main pulmonary arteries. The overall burden may have increased particularly on the right. There is right heart strain. 2. Minimal bandlike opacities may be scarring or atelectasis in the upper lobes. No consolidative pulmonary opacities are present. No discrete evidence of pulmonary infarct at this time. N.B. : The above Results were Read Back by Jens Jean Baptiste DO to Myles Rivera DO, and understanding confirmed on 03/12/2024 14:09:13 (ET). Electronically Signed: Jens Jean Baptiste DO at 14:00 EDT , Physical Exam Narrative Seen and examined Patient was diagnosed with left leg DVT and PE about a month ago when she broke her left foot probably fracture of left lateral metatarsal (not sure but seems on the history) and was taking Eliquis. She also had lower back pain with sciatica radiating to right of the foot after foot injury. She was told that trial of local injection will be a better option before therefore she stopped surgery Eliquis on 03/10 morning about 5 days prior to the epidural injection for pain control. Yesterday she started feeling short of breath and was found to have bilateral PE. Denies history of smoking or other chronic lung disease or heart disease. Her both parents were a smoker. She denies history of cancer. Physical exam: General: Alert, Oriented x3, Cooperative HEENT: Atraumatic, PERRLA, EOMI, Normocephalic Oral: No Gingival or Mucosal Lesions/ Ulcerations Neck: Supple, No JVD, Negative Carotid Bruits Chest wall/Lungs: Air entry diminished in bilateral lung bases. No crepitation/rhonchi Cardiovascular: NSR, Normal S1, Normal S2, No M/G/R Abdomen: Bowel Sounds Present, Soft, Non Tender, Non-Distended : No dysuria. No renal angle tenderness. No suprapubic tenderness. Extremities: No edema, Capillary Refill Less than 3 Seconds Skin: No rashes, No breakdown Musculoskeletal: No Tenderness to Palpation of Joints or Extremities. Lumbar spine mild tenderness. Neurological: Cranial nerves II-XII grossly intact, DTR 2+/4. No acute focal neurological deficit. Psych/Mental Status: Normal Affect, Appropriate. Assessment & Plan Assessment/Plan (1) Bilateral pulmonary embolism: PLAN: Plan This is a 73-year-old female admitted for shortness of breath, as Eliquis on hold for anticipated lower back/epidural injection for pain control. 1. Extensive bilateral pulmonary embolism, right more severe than left pulmonary arteries with possible right heart strain: The patient is being admitted in ICU. On IV heparin drip with heparin nomogram and aPTT monitor. CTA chest was independently interpreted. Findings as mentioned above. 2D echo ordered for tomorrow AM. She might be candidate for lifelong anticoagulation 2. Fibromyalgia and chronic back pain?Home Vicodin restarted. On senna S as she is on opioid medication 3. Hypothyroidism Levothyroxine started. 4. Chronic anxiety disorder?buspirone continued 5. Neutrophilia probably inflammatory due to bilateral pulmonary embolism. Lactic acid elevated 3.2 improved to 2 point. No evidence of infection at this time. Lactic acidosis may be elevated from hypoperfusion related from bilateral pulmonary embolism. IV fluid normal saline ordered Advance care planning: Discussed with patient and family advanced directives as well as CODE STATUS. Explained various CODE STATUS: FULL CODE, DNR CCA, DNR CCA with no intubation, and DNR CC- and what each meant. Patient elected to be a full code with CPR and intubation if warranted. Order was placed. Surrogate decision maker is her son Maria Luisa Henley. Charges/Coding Visit Charges Inpatient E&M: 35112 Init Hosp L3
[2024-03-13] MEDS: Cholecalciferol (VIT D3) 25 MCG TABLET (1,000 UNITS) PO (08:08)
[2024-03-13] MEDS: Pantoprazole Sodium 40 MG Tablet PO (08:08)
[2024-03-13] MEDS: HYDROcodone Bitartrate/Apap 5/325 Tablet PO ×2 (09:35→20:45)
--- NOTE | 2024-03-13 10:15 | CON.PCM.SX_ITS ---
Assessment & Plan Assessment/Plan (1) Bilateral pulmonary embolism: PLAN: -CTA images reviewed :significant clot burden on right more than on previous CTA in December though uncertain how much is acute/new :clot on left appears chronic and partially resolved from prior study :RV/LV ratio >1 -trop, BNP, lactate elevated -tachycardic, requiring significant O2 support -meets criteria for thrombectomy -tentative plan over next 24-48 hours HPI Consult Data Date of Consult: 03/13/24 HPI Narrative HPI Narrative: BARBARA HERNANDEZ, is a 73 F who presents with abrupt recurrence of SOB, near syncope beginning yesterday; maybe some mild symptoms day prior. Upon evaluation in ED found to be hypoxic, tachycardic though hemodynamically stable. CTA revealed bilateral PE, right>left with right heart strain. She had a large PE December 13 of this year thought to be provoked by foot injury/limited mobility. She had been on Eliquis until a few days prior to her new symptoms when she held it for anticipated spine injection (does not sound like it was scheduled yet). She was admitted to ICU on Airvo high flow nasal cannula and placed on heparin. Overnight her HR has improved, they are beginning to wean O2 support, and she is able to ambulate without extremis. Now also able to talk in complete sentences without limitation. [facility] Medical History Depression History of kidney stones Acute calculous cholecystitis Laceration of left index finger Pulmonary emboli Hypoxia Elevated troponin Pulmonary embolism and infarction Fracture of left foot Episode of syncope Fibromyalgia Anxiety Home Medications ?Medication ?Instructions ?Recorded ?Last Taken ?Type hydrocodone 7.5 mg-acetaminophen 1 tab PO TID PRN PRN pain 12/15/23 03/12/24 10:00 History 325 mg tablet levothyroxine 25 mcg tablet 25 mcg PO DAILY thyroid 12/15/23 03/11/24 History tolterodine 2 mg tablet 2 mg PO QHS over active bladder 12/15/23 03/11/24 20:00 History apixaban 5 mg (74 tabs) tablets in 5 mg PO BID PE #74 tabs 12/16/23 02/27/24 Rx a dose pack (Eliquis DVT-PE Treat 30D Start) buspirone 10 mg tablet 10 mg PO TID anxiety 02/23/24 03/11/24 History cholecalciferol (vitamin D3) 25 25 mcg PO DAILY supplement 02/23/24 03/06/24 History mcg (1,000 unit) capsule omeprazole 40 mg capsule,delayed 40 mg PO QDAY unknown #30 caps 03/02/24 03/11/24 Rx release Allergy/AdvReac Type Severity Reaction Status Date / Time No Known Allergies Allergy Verified 03/12/24 11:39 Family History Mother Myocardial infarction Sister Diabetes Cancer Sister No problems noted. Father Cancer Surgical History S/P tonsillectomy S/P appendectomy S/P excision of ganglion cyst History of partial hysterectomy History of cholecystectomy Social History Smoking Status: Never smoker ROS Constitutional Constitutional: Denies chills, fever(s), frequent falls, lethargy or weakness Eyes Eyes: Denies blind spots, change in vision or loss of vision ENT HEENT: Denies bleeding gums, hoarseness or sore throat Cardiovascular Cardiovascular: Reports dyspnea at rest, dyspnea on exertion and lightheadedness; Denies abdominal pain, bluish discoloration of hand/feet, chest pain with activity, claudication, cold extremities, cyanosis, erythema on extremities, irregular heart rhythm, leg edema, leg ulcers, numbness in extremities or weakness in extremities Respiratory/Chest Respiratory/Chest: Reports shortness of breath at rest and shortness of breath with exertion; Denies cough, excessive phlegm production or wheezing Gastrointestinal Gastrointestinal: Reports rectal bleeding; Denies anorexia, change in stool character, constipation, diarrhea or melena Genitourinary Genitourinary: Denies dysuria or hematuria Musculoskeletal Musculoskeletal: Denies abnormal gait Integumentary Integumentary: Denies erythema, non-healing lesions or wounds Neurologic Neurologic: Denies abnormal speech, focal weakness, headache(s), loss of vision, numbness, paresthesias or sensory deficit Hematologic/Lymphatic Hematologic/Lymphatic: Denies easy bleeding, easy bruising or lymphadenopathy Physical Exam Const alert, oriented x3, no apparent distress and healthy appearing General Appearance: cooperative; Negative for combative or lethargic Orientation / Consciousness: awake Exam Limitations: no limitations HEENT Head and Scalp: normocephalic and atraumatic Eyes EOMs intact bilaterally General Eye: normal appearance of both eyes Neck full ROM, no lymphadenopathy and thyroid normal General: trachea midline; Negative for lymphadenopathy or tenderness Thyroid: thyroid normal Resp normal respiratory effort and no use of accessory muscles Effort and Inspection: Negative for labored, stridor or audible wheezes Cardio regular rate and regular rhythm Peripheral Pulses: brachial pulses present, radial pulses present, popliteal pulses present, posterior tibial pulses present and dorsalis pedis pulses present Back/Spine Cervical Spine: cervical ROM normal Extremity full ROM, normal capillary refill and no clubbing, cyanosis or edema Skin no rashes or lesions noted and no wounds Neuro oriented x3, CN's II-XII intact bilaterally, no focal motor deficits and no sensory deficits noted Psych thought process normal, cooperative, affect normal, speech normal and activity/motor behavior normal Lab / Micro Data 03/13/24 05:08 03/13/24 05:08 Labs: Laboratory Results - last 24 hr 03/12/24 12:10: WBC 14.1 H, RBC 4.77, Hgb 13.9, Hct 42.7, MCV 89.5, MCH 29.1, M CHC 32.6 D, RDW Std Deviation 51.7 H, RDW Coeff of Larry 16.1 H, Plt Count 266, MPV 10.0, Immature Gran % (Auto) 2.300 H, Neut % (Auto) 75.0 H, Lymph % (Auto) 13.4 L, [place] % (Auto) 8.1, Eos % (Auto) 0.1, Baso % (Auto) 1.1 H, Absolute Neuts (auto) 10.6 H, Absolute Lymphs (auto) 1.90, Nucleated RBC % 0, PT 13.4, INR 1.0, APTT 22.2 L, Sodium 141, Potassium 4.1, Chloride 108 H, Carbon Dioxide 24.0, Anion Gap 9, BUN 28 H, Creatinine 1.13 H, Estim Creat Clear Calc 48.36, Est GFR (MDRD) Af Amer 60, Est GFR (MDRD) Non-Af 50 L, BUN/Creatinine Ratio 24.8 H, G lucose 223 H, Lactic Acid 3.2 H*, Calcium 9.6, Total Bilirubin 0.60, Direct Bilirubin 0.17, AST 33, ALT 33, Alkaline Phosphatase 84, Troponin I High Sens 282 H*, B-Natriuretic Peptide 113.4 H, Total Protein 6.6, Albumin 3.4, Globulin 3.2 03/12/24 17:10: Lactic Acid 2.1 H* 03/12/24 20:15: APTT 219.3 H* 03/13/24 05:08: WBC 11.2 H, RBC 4.34, Hgb 12.7, Hct 39.9, MCV 91.9, MCH 29.3, M CHC 31.8 L, RDW Std Deviation 55.4 H, RDW Coeff of Larry 16.5 H, Plt Count 209, MPV 9.6, Immature Gran % (Auto) 2.800 H, Neut % (Auto) 63.5, Lymph % (Auto) 21.7, [place] % (Auto) 11.0 H, Eos % (Auto) 0.4, Baso % (Auto) 0.6, Absolute Neuts (auto) 7.1, Absolute Lymphs (auto) 2.44, Nucleated RBC % 0, APTT 73.1 H, Sodium 142, Potassium 4.0, Chloride 111 H, Carbon Dioxide 25.0, Anion Gap 6, BUN 27 H, Creatinine 0.95, Estim Creat Clear Calc 55.44, Est GFR (MDRD) Af Amer 74, Est GFR (MDRD) Non-Af 61, BUN/Creatinine Ratio 28.5 H, Glucose 160 H, Calcium 8.8 Imaging Radiology Impression Chest CTA 03/12/24 12:28 IMPRESSION: 1. There are extensive bilateral pulmonary emboli most proximally in the right more severe than left main pulmonary arteries. The overall burden may have increased particularly on the right. There is right heart strain. 2. Minimal bandlike opacities may be scarring or atelectasis in the upper lobes. No consolidative pulmonary opacities are present. No discrete evidence of pulmonary infarct at this time. Electronically Signed: Jens Jean Baptiste DO at 14:00 EDT , ADDENDUM: 03/12/24 1416 IMPRESSION: 1. There are extensive bilateral pulmonary emboli most proximally in the right more severe than left main pulmonary arteries. The overall burden may have increased particularly on the right. There is right heart strain. 2. Minimal bandlike opacities may be scarring or atelectasis in the upper lobes. No consolidative pulmonary opacities are present. No discrete evidence of pulmonary infarct at this time. N.B. : The above Results were Read Back by Jens Jean Baptiste DO to Myles Rivera DO, and understanding confirmed on 03/12/2024 14:09:13 (ET). Electronically Signed: Jens Jean Baptiste DO at 14:00 EDT , Charges/Coding Visit Charges Inpatient E&M: 00197 Init Hosp L3
[2024-03-13] MEDS: KCL 20MEQ in 0.9% NS 20 MEQ/1,000 ML IV.SOLN. 100 MEQ IV (10:56)
[2024-03-13 12:16] LABS: Partial Thromboplast Time 68.5 Seconds (24.1-36.2)
[2024-03-13] MEDS: HEPARIN/D5w 25,000 UNITS 25,000 UNITS/250 ML IV.SOLN. 11 UNITS CONT INF (13:53)
[2024-03-13] MEDS: Ondansetron 4 MG/2 ML Vial IV (17:27)
[2024-03-13] MEDS: MELATONIN 3 MG TABLET PO (20:45)
[2024-03-13] MEDS: Tolterodine Tartrate 2 MG CAP.SA PO (20:45)
[2024-03-14] VITALS (20 sets, daily range): BP systolic 103–144; BP diastolic 60–90; PULSE 72–125; RESP 12–26; TEMP 36.2–36.6; O2SAT 90–99; BMI 37.7
[2024-03-14] MEDS: MELATONIN 3 MG TABLET PO ×2 (00:15→22:55)
[2024-03-14 05:19] LABS: Absolute Lymphocyte Count 2.42 X10^3/uL (0.83-4.51); Absolute Neutrophil Count 6.5 X10^3/uL (2.0-7.7); Basophil# 0.08 X10^3/uL; Basophil% 0.7 % (0-1); Eosinophil# 0.09 X10^3/uL; Eosinophils% 0.8 % (0-5); Hematocrit 36.2 % (37-47); Hemoglobin 11.5 g/dL (12.0-15.0); Lymphocyte # 2.42 X10^3/ul (0.83-4.51); Lymphocyte % 22.5 % (19-41); Mean Corp Hgb Conc 31.8 g/dL (32-36); Mean Corpuscular Hgb 29.3 pg (27.0-32.0); Mean Corpuscular Volume 92.1 fL (81-99); Mean Platelet Vol. 9.5 fl (6.2-12.0); Monocyte% 12.1 % (0-10); NRBC Flagged by Analyzer 0 % (0-5); Neutrophil % 60.6 % (47-70); Platelet Count 178 K/mm3 (150-450); RBC Distribution Width CV 16.2 % (11.6-14.6); Red Blood Count 3.93 M/mm3 (4.2-5.4); White Blood Count 10.8 K/mm3 (4.4-11.0)
[2024-03-14 05:29] LABS: Partial Thromboplast Time 63.6 Seconds (24.1-36.2)
[2024-03-14 05:33] LABS: Anion Gap 6 (5-15); BUN 27 mg/dL (7-18); BUN/Creat Ratio 33.5 RATIO (10-20); Calcium,Total 8.7 mg/dL (8.5-10.1); Chloride 110 mmol/L (98-107); EST Glomerular Filtration Rate 74 mL/min (>60); Est Glom Filt Rate - Afr Amer 89 mL/min (>60); Estimated Creatinine Clearance 67.18 ml/min; Glucose 135 mg/dL (74-106); Potassium 4.4 mmol/L (3.5-5.1); Sodium Level 142 mmol/L (136-145)
[2024-03-14] MEDS: busPIRone 5 MG Tablet 10 MG PO ×3 (05:51→21:47)
[2024-03-14] MEDS: Levothyroxine 25 MCG TABLET PO (05:51)
--- NOTE | 2024-03-14 06:50 | PN.CC_ITS ---
Assessment & Plan Assessment/Plan (1) Acute hypoxic respiratory failure: PLAN: Plan RECOMMENDATIONS: 1. Continue weight-based heparin infusion. 2. Tentative plans to proceed with pulmonary thrombectomy tomorrow. 3. Supplemental oxygen for saturations greater than 90%. 4. Encourage incentive spirometer use and mobilize patient as tolerated. IMPRESSIONS: 1. Respiratory failure with hypoxemia secondary to submassive PE The patient was hospitalized in December 2023 following a mechanical fall, which was complicated by bilateral pulmonary emboli. She was discharged home on Eliquis, which has been continued until 1.5 weeks ago, when it was discontinued in order to help facilitate epidural spinal injections for pain control. That the patient then presented once again with acute onset dyspnea and radiographic evidence of proximal bilateral PE with biochemical evidence of right heart strain. The patient has been started on a weight-based heparin infusion, which will be continued for now. The patient was seen by vascular surgery, with tentative plans for pulmonary thrombectomy tomorrow. In the interim, the patient will be continued on supplemental oxygen to maintain saturations at or above 90%. 2. History of obesity/chronic pain syndrome/hypothyroidism/anxiety/depression Complicates care, management, recovery and prognosis. Continue home medications as indicated. This note was generated with [employer] dictation software. It may contain incorrect words, spelling, and punctuation that were not noted in checking the note before signing. Subjective Subjective The patient was seen and examined at the bedside this morning. Events from the last 24 hours have been reviewed. The patient is currently afebrile, hemodynamically stable and maintaining appropriate oxygen saturations on heated high flow oxygen with an FiO2 requirement of 50%. No overnight issues were identified by the nursing staff. The patient has been tentatively scheduled for thrombectomy tomorrow. Morning labs are stable. Objective Data Objective Data The patient's most recent lab work, culture data and imaging studies have all been personally reviewed. Surface echocardiogram demonstrated an ejection fraction of 55 to 60% with grade 1 diastolic dysfunction. Vital Signs: Vital Signs Temp Pulse Resp BP Pulse Ox O2 Del Method O2 Flow Rate 97.3 F L 79 21 H 131/83 H 94 Airvo 50 03/14/24 03:58 03/14/24 05:47 03/14/24 05:47 03/14/24 05:47 03/14/24 05:47 03/14/24 05:47 03/13/24 22:00 FiO2 50 03/14/24 05:47 Oxygen Flow Rate (L/min) 50 Oxygen Delivery Method Airvo Weight: 212 lb 11.937 oz Body Mass Index (BMI) 37.7 Intake & Output: Intake and Output for Last 24 Hours 03/12/24 03/13/24 03/14/24 23:59 23:59 23:59 Intake Total 574.97 / 574.97 1155.03 / 1155.03 502.28 / 502.28 Output Total 150 / 150 200 / 200 Balance 424.97 / 424.97 955.03 / 955.03 502.28 / 502.28 Lab / Micro Data Attestation: I reviewed the patient's lab results. 03/14/24 05:15 03/14/24 05:15 Labs: Laboratory Results - last 24 hr 03/13/24 11:50: APTT 68.5 H 03/14/24 05:15: WBC 10.8, RBC 3.93 L, Hgb 11.5 L, Hct 36.2 L, MCV 92.1, MCH 29.3, MCHC 31.8 L, RDW Std Deviation 55.0 H, RDW Coeff of Larry 16.2 H, Plt Count 178, MPV 9.5, Immature Gran % (Auto) 3.300 H, Neut % (Auto) 60.6, Lymph % (Auto) 22.5, [place] % (Auto) 12.1 H, Eos % (Auto) 0.8, Baso % (Auto) 0.7, Absolute Neuts (auto) 6.5, Absolute Lymphs (auto) 2.42, Nucleated RBC % 0, APTT 63.6 H, Sodium 142, Potassium 4.4, Chloride 110 H, Carbon Dioxide 26.0, Anion Gap 6, BUN 27 H, Creatinine 0.80, Estim Creat Clear Calc 67.18, Est GFR (MDRD) Af Amer 89, Est GFR (MDRD) Non-Af 74, BUN/Creatinine Ratio 33.5 H, Glucose 135 H, Calcium 8.7 Radiography Diagnostic Testing: Radiology Impression Echocardiogram 03/12/24 15:37 Interpretation Summary The estimated ejection fraction is 55-60 %. Normal LV systolic function Grade 1 diastolic dysfunction No significant change from previous echo Contrast echo/Definity used. Ordering Physician: Nelson Carr Performed By: Dc Downey RCS Physical Exam Const alert and no apparent distress Constitutional Narrative: Obese. Resting comfortably in bed on heated high flow oxygen. General Appearance: cooperative HEENT normocephalic and head/scalp atraumatic Eyes PERRL, EOMs intact bilaterally and conjunctivae normal Neck supple General: trachea midline Chest inspection of chest normal Resp normal respiratory effort Auscultation: Negative for rales, rhonchi or wheezes Cardio regular rate, regular rhythm, S1 normal heart sound and S2 normal heart sound GI normal to inspection, nondistended, normoactive bowel sounds Extremity General Extremity: edema; Negative for clubbing Skin no rashes or lesions noted Neuro oriented x3, CN's II-XII intact bilaterally, moves all extremities and no focal motor deficits Psych cooperative and affect normal Charges/Coding Visit Charges Inpatient E&M: 52275 Subs Hosp L2
[2024-03-14] MEDS: Pantoprazole Sodium 40 MG Tablet PO (07:30)
[2024-03-14] MEDS: Cholecalciferol (VIT D3) 25 MCG TABLET (1,000 UNITS) PO (07:30)
[2024-03-14] MEDS: HYDROcodone Bitartrate/Apap 5/325 Tablet PO ×3 (07:30→21:47)
--- NOTE | 2024-03-14 10:25 | CASEMGMT ---
MEY SARGENT Assessment Face to Face with patient for initial transition planning/care coordination assessment. MEY SARGENT introduced self and role at [facility], pt voices understanding. Pt is A&Ox4 and is resting comfortably in bed and is calm. Care providers, pharmacy, and demographics verified. Admitting dx: BL PE LACE Strata: 3 PCP: Colby Specialists: Denies Preferred Pharmacy: [facility] Insurance: MMO MCR Prescription Benefit: Yes LNOK: Hardeep Glass (Son) Living Arrangements: Pt lives alone in a single story home with a BM with handrails and 4 steps to enter the back and 5-6 to enter the front. Pt states that she uses the back to enter d/t handrails. ADLs/IADLs: States ind Transportation: Self, DIL will drive pt home at [place]. Denies concerns DME: Crutches. Boot. FWW. Shower GB. Pt has home oxygen through [employer] (verified by Andreeane 2L Cont and 4L with exertion). Pt states that she has a concentrator and portable tanks. Pt does not have a portable tank in the hospital. This MEY SARGENT recommended the pt to have someone bring in her portable tank at time of DC. Pt is unsure if she will be able to have someone do this. CM to follow. Pt states that she does not have a Pulse Ox and cannot afford one because they are too expensive. This MEY SARGENT gave the pt a new pulse ox from stock and educated the pt on how to use. HHC/SNF: Hx with [facility] HH. Denies current needs. Pt?s goal: Return home with the assistance of private duty aides. List provided to the pt at this time and educated that this will be self pay. Plan: Home with Private Duty aides, possible increased O2, and a pulse ox. Pulmonary Thrombectomy tomorrow. Pt takes Eliquis at home and states that she was able to use the trial card after her last visit. Pt currently denies the need for HHC, OP Tx, SNF, pt link or CCN. Pt states that having people come to the home is too stressful on me. Pt states that she would feel safe returning home at time of DC. CM to follow oxygen requirements. CM to follow for safe DC planning. Jazmin Alberto RN, CM
--- NOTE | 2024-03-14 11:24 | CPS ---
Water bag changed on Airvo.
--- NOTE | 2024-03-14 11:59 | PN.HOSP_ITS ---
Reason for Visit Reason for Visit: Diagnoses Disorder of white blood cells, unspecified (03/12/24) Acidosis, unspecified (03/12/24) Other chronic pain (03/12/24) Other pulmonary embolism without acute cor pulmonale (03/12/24) Acute respiratory failure with hypoxia (03/12/24) Low back pain, unspecified (03/12/24) Fibromyalgia (03/12/24) Acute respiratory distress (03/12/24) Objective Data Objective Data Vital Signs: Vital Signs Temp Pulse Resp BP Pulse Ox O2 Del Method O2 Flow Rate 97.2 F L 74 18 127/87 H 95 Airvo 40 03/14/24 08:00 03/14/24 11:24 03/14/24 11:24 03/14/24 10:00 03/14/24 11:24 03/14/24 10:00 03/14/24 10:00 FiO2 30 03/14/24 11:24 Oxygen Flow Rate (L/min) 40 Oxygen Delivery Method Airvo Weight: 212 lb 11.937 oz Body Mass Index (BMI) 37.7 Intake & Output: Intake and Output for Last 24 Hours 03/12/24 03/13/24 03/14/24 23:59 23:59 23:59 Intake Total 574.97 / 574.97 1155.03 / 1155.03 853.28 / 853.28 Output Total 150 / 150 200 / 200 Balance 424.97 / 424.97 955.03 / 955.03 853.28 / 853.28 Lab / Micro Data 03/14/24 05:15 03/14/24 05:15 Labs: Laboratory Results - last 24 hr 03/13/24 11:50: APTT 68.5 H 03/14/24 05:15: WBC 10.8, RBC 3.93 L, Hgb 11.5 L, Hct 36.2 L, MCV 92.1, MCH 29.3, MCHC 31.8 L, RDW Std Deviation 55.0 H, RDW Coeff of Larry 16.2 H, Plt Count 178, MPV 9.5, Immature Gran % (Auto) 3.300 H, Neut % (Auto) 60.6, Lymph % (Auto) 22.5, [place] % (Auto) 12.1 H, Eos % (Auto) 0.8, Baso % (Auto) 0.7, Absolute Neuts (auto) 6.5, Absolute Lymphs (auto) 2.42, Nucleated RBC % 0, APTT 63.6 H, Sodium 142, Potassium 4.4, Chloride 110 H, Carbon Dioxide 26.0, Anion Gap 6, BUN 27 H, Creatinine 0.80, Estim Creat Clear Calc 67.18, Est GFR (MDRD) Af Amer 89, Est GFR (MDRD) Non-Af 74, BUN/Creatinine Ratio 33.5 H, Glucose 135 H, Calcium 8.7 Radiography Diagnostic Testing: Radiology Impression Echocardiogram 03/12/24 15:37 Interpretation Summary The estimated ejection fraction is 55-60 %. Normal LV systolic function Grade 1 diastolic dysfunction No significant change from previous echo Contrast echo/Definity used. Ordering Physician: Nelson Carr Performed By: Dc Downey RCS Physical Exam Narrative Seen and examined Patient was diagnosed with left leg DVT and PE in December 2023 when she broke her left foot probably fracture of left lateral metatarsal (not sure but seems on the history) and has been taking Eliquis until March 06, 2024 when she stopped in anticipation of getting epidural spinal injection for pain control as she had lower spinal pain when she broke her left foot. Discussed with vascular surgeon is planning for catheter-based thrombectomy on Wednesday. Currently patient is on Airvo. Denies history of smoking or other chronic lung disease or heart disease. Her both parents were a smoker. She denies history of cancer. Physical exam: General: Alert, Oriented x3, Cooperative HEENT: Atraumatic, PERRLA, EOMI, Normocephalic Oral: No Gingival or Mucosal Lesions/ Ulcerations Neck: Supple, No JVD, Negative Carotid Bruits Chest wall/Lungs: Air entry diminished in bilateral lung bases. No crepitation/rhonchi Cardiovascular: NSR, Normal S1, Normal S2, systolic murmur LLSB. Abdomen: Bowel Sounds Present, Soft, Non Tender, Non-Distended : No dysuria. No renal angle tenderness. No suprapubic tenderness. Extremities: No edema, Capillary Refill Less than 3 Seconds Skin: No rashes, No breakdown Musculoskeletal: No Tenderness to Palpation of Joints or Extremities. Lumbar spine mild tenderness. Neurological: Cranial nerves II-XII grossly intact, DTR 2+/4. No acute focal neurological deficit. Psych/Mental Status: Normal Affect, Appropriate. Assessment & Plan Assessment/Plan (1) Bilateral pulmonary embolism: PLAN: Plan This is a 73-year-old female admitted for shortness of breath, as Eliquis on hold for anticipated lower back/epidural injection for pain control. 1. Extensive bilateral pulmonary embolism, right more severe than left pulmonary arteries with possible right heart strain: The patient is being admitted in ICU. On IV heparin drip with heparin nomogram and aPTT monitor. CTA chest was independently interpreted. Findings as mentioned above. 03/14: 2D echo reviewed. EF 55 to 60%, grade 1 diastolic dysfunction. Moderately dilated RV with mild to moderate global RV systolic dysfunction. Mild TR. Discussed with the [facility] surgeon on 03/13. Plan for catheter-based thrombectomy as she had severe right pulmonary artery thrombosis load on the top of previous PE in December 2023. 2. Fibromyalgia and chronic back pain?Home Vicodin restarted. On senna S as she is on opioid medication 3. Hypothyroidism Levothyroxine started. 4. Chronic anxiety disorder?buspirone continued 5. Neutrophilia probably inflammatory due to bilateral pulmonary embolism. Lactic acid elevated 3.2 improved to 2 point. No evidence of infection at this time. Lactic acidosis may be elevated from hypoperfusion related from bilateral pulmonary embolism. IV fluid normal saline ordered Advance care planning: Discussed with patient and family advanced directives as well as CODE STATUS. Explained various CODE STATUS: FULL CODE, DNR CCA, DNR CCA with no intubation, and DNR CC- and what each meant. Patient elected to be a full code with CPR and intubation if warranted. Order was placed. Surrogate decision maker is her son Maria Luisa Henley. Charges/Coding Visit Charges Inpatient E&M: 40922 Subs Hosp L2
[2024-03-14] MEDS: HEPARIN/D5w 25,000 UNITS 25,000 UNITS/250 ML IV.SOLN. 11 UNITS CONT INF (13:23)
--- NOTE | 2024-03-14 14:37 | PN.SURG_ITS ---
Subjective Subjective No significant changes, cont SOB with exertion. Still requiring Airvo Objective Data Objective Data A&O x 3, NAD RRR resp non labored Vital Signs: Vital Signs Temp Pulse Resp BP Pulse Ox O2 Del Method O2 Flow Rate 97.4 F L 83 17 142/80 H 92 Airvo 40 03/14/24 12:00 03/14/24 12:00 03/14/24 12:00 03/14/24 12:00 03/14/24 12:00 03/14/24 12:00 03/14/24 10:00 FiO2 30 03/14/24 11:24 Oxygen Flow Rate (L/min) 40 Oxygen Delivery Method Airvo Weight: 212 lb 11.937 oz Body Mass Index (BMI) 37.7 Intake & Output: Intake and Output for Last 24 Hours 03/12/24 03/13/24 03/14/24 23:59 23:59 23:59 Intake Total 574.97 / 574.97 1155.03 / 1155.03 915.00 / 915.00 Output Total 150 / 150 200 / 200 Balance 424.97 / 424.97 955.03 / 955.03 915.00 / 915.00 Lab / Micro Data 03/14/24 05:15 03/14/24 05:15 Labs: Laboratory Results - last 24 hr 03/14/24 05:15: WBC 10.8, RBC 3.93 L, Hgb 11.5 L, Hct 36.2 L, MCV 92.1, MCH 29.3, MCHC 31.8 L, RDW Std Deviation 55.0 H, RDW Coeff of Larry 16.2 H, Plt Count 178, MPV 9.5, Immature Gran % (Auto) 3.300 H, Neut % (Auto) 60.6, Lymph % (Auto) 22.5, [place] % (Auto) 12.1 H, Eos % (Auto) 0.8, Baso % (Auto) 0.7, Absolute Neuts (auto) 6.5, Absolute Lymphs (auto) 2.42, Nucleated RBC % 0, APTT 63.6 H, Sodium 142, Potassium 4.4, Chloride 110 H, Carbon Dioxide 26.0, Anion Gap 6, BUN 27 H, Creatinine 0.80, Estim Creat Clear Calc 67.18, Est GFR (MDRD) Af Amer 89, Est GFR (MDRD) Non-Af 74, BUN/Creatinine Ratio 33.5 H, Glucose 135 H, Calcium 8.7 Radiography Diagnostic Testing: Radiology Impression Echocardiogram 03/12/24 15:37 Interpretation Summary The estimated ejection fraction is 55-60 %. Normal LV systolic function Grade 1 diastolic dysfunction No significant change from previous echo Contrast echo/Definity used. Ordering Physician: Nelson Carr Performed By: Dc Downey RCS Assessment & Plan Assessment/Plan (1) Bilateral pulmonary embolism: PLAN: -cont heparin -thrombectomy tomorrow Charges/Coding Visit Charges Inpatient E&M: 47650 Subs Hosp L2
--- NOTE | 2024-03-14 16:14 | CHAPLAIN ---
Type of Pastoral Visit ___ Initial Visit ___ Follow-up Visit ___ On-call Visit ___ General Patient Visit ___ Spiritual Assessment ___ Family Conference ___ Bereavement ___ Rapid Response ___ Code Blue ___ Other (describe below) Pastoral Care Referral From _x__ Patient ___ Family ___ Nurse ___ Physician ___ Environmental Services Worker ___ Fur Scraper ___ Other (describe below) Sacrament/Intervention ___ Active listening ___ Anointing ___ Quaker ___ Bereavement ___ Communion ___ Jaqueline exploration ___ ___ Life review ___ Prayer ___ Reconciliation ___ Sacrament of Sick ___ Supportive presence ___ Wedding ___ Other (describe below) Pastoral Comments patient was sleeping; left a calling card;
[2024-03-14] MEDS: Tolterodine Tartrate 4 MG CAP.SA PO (16:59)
[2024-03-15] VITALS (11 sets, daily range): BP systolic 123–135; BP diastolic 78–93; PULSE 68–84; RESP 16–19; TEMP 36.1–36.5; O2SAT 93–99; BMI 37.9
[2024-03-15 06:22] LABS: Hematocrit 37.9 % (37-47); Hemoglobin 12.3 g/dL (12.0-15.0); Mean Corp Hgb Conc 32.5 g/dL (32-36); Mean Corpuscular Hgb 29.8 pg (27.0-32.0); Mean Corpuscular Volume 91.8 fL (81-99); Mean Platelet Vol. 10.3 fl (6.2-12.0); POSITIVE COUNT YES; POSITIVE MORPHOLOGY YES; Platelet Count 203 K/mm3 (150-450); RBC Distribution Width CV 16.3 % (11.6-14.6); RBC Distribution Width SD 54.6 fl (35.1-43.9); Red Blood Count 4.13 M/mm3 (4.2-5.4); White Blood Count 10.5 K/mm3 (4.4-11.0)
[2024-03-15 06:29] LABS: Differential Indicated MANUAL DIFF
--- NOTE | 2024-03-15 06:53 | PCM.PN.INT ---
Assessment & Plan Assessment/Plan (1) Acute hypoxic respiratory failure: PLAN: Plan RECOMMENDATIONS: 1. Continue weight-based heparin infusion. 2. Plan for thrombectomy this morning. 3. Continue supplemental oxygen to maintain saturations at or above 90%. 4. Encourage incentive spirometer use and mobilize patient as tolerated. 5. Perform walking oximetry study prior to consideration for discharge home. IMPRESSIONS: 1. Respiratory failure with hypoxemia secondary to submassive PE The patient was hospitalized in December 2023 following a mechanical fall, which was complicated by bilateral pulmonary emboli. She was discharged home on Eliquis, which has been continued until 1.5 weeks ago, when it was discontinued in order to help facilitate epidural spinal injections for pain control. That the patient then presented once again with acute onset dyspnea and radiographic evidence of proximal bilateral PE with biochemical evidence of right heart strain. The patient has been maintained on a weight-based heparin infusion. She was seen in consultation by vascular surgery, with tentative plans for thrombectomy later this morning. In the interim, continue supplemental oxygen for saturations greater than 90%. 2. History of obesity/chronic pain syndrome/hypothyroidism/anxiety/depression Complicates care, management, recovery and prognosis. Continue home medications as indicated. This note was generated with [employer] dictation software. It may contain incorrect words, spelling, and punctuation that were not noted in checking the note before signing. Subjective Subjective The patient was seen and examined at the bedside this morning. Events from the last 24 hours have been reviewed. The patient is currently afebrile, hemodynamically stable and maintaining appropriate oxygen saturations on 2 L/min via nasal cannula. There are tentative plans for pulmonary thrombectomy this morning. The patient remains on a weight-based heparin infusion. No overnight issues were identified by the nursing staff. Objective Data Objective Data The patient's most recent lab work, culture data and imaging studies have all been personally reviewed. Surface echocardiogram demonstrated an ejection fraction of 55 to 60% with grade 1 diastolic dysfunction. Vital Signs: Vital Signs Temp Pulse Resp BP Pulse Ox O2 Del Method O2 Flow Rate 97.4 F L 84 16 132/83 H 94 Nasal Cannula 2 03/15/24 03:01 03/15/24 03:01 03/15/24 03:01 03/15/24 03:01 03/15/24 06:33 03/15/24 06:33 03/15/24 06:33 FiO2 27 03/14/24 21:51 Oxygen Flow Rate (L/min) 2 Oxygen Delivery Method Nasal Cannula Weight: 214 lb 1.102 oz Body Mass Index (BMI) 37.9 Intake & Output: Intake and Output for Last 24 Hours 03/13/24 03/14/24 03/15/24 23:59 23:59 23:59 Intake Total 1155.03 / 1155.03 915.00 / 1115.00 200 / 200 Output Total 200 / 200 300 / 300 Balance 955.03 / 955.03 615.00 / 815.00 200 / 200 Lab / Micro Data Attestation: I reviewed the patient's lab results. 03/15/24 06:00 03/15/24 06:00 Labs: Laboratory Results - last 24 hr 03/15/24 06:00: WBC 10.5, RBC 4.13 L, Hgb 12.3, Hct 37.9, MCV 91.8, MCH 29.8, MCHC 32.5, RDW Std Deviation 54.6 H, RDW Coeff of Larry 16.3 H, Plt Count 203, MPV 10.3, Neut % (Auto) Not Reportable Radiography Diagnostic Testing: Radiology Impression Venous Doppler Study 03/12/24 15:37 Interpretation Summary Acute deep vein thrombosis is noted in the left popliteal vein, tibioperoneal trunk vein, gastrocnemius vein, posterior tibial vein. Deep veins of the right lower extremity are patent and compressible segmentally. There is no evidence of right lower extremity deep vein thrombosis. The bilateral great saphenous veins appear patent and compressible segmentally Hypoechoic, non vascular structure noted left popliteal fossa measuring 1.10cm x 2.60cm Ordering Physician: Nelson Carr Referring Physician: Ed Bowman Chi Performed By: Chelo Brown, WILFRIDO, RVT Physical Exam Const alert and no apparent distress Constitutional Narrative: Obese. General Appearance: cooperative HEENT normocephalic and head/scalp atraumatic Eyes PERRL, EOMs intact bilaterally and conjunctivae normal Neck supple General: trachea midline Chest inspection of chest normal Resp normal respiratory effort Auscultation: Negative for rales, rhonchi or wheezes Cardio regular rate, regular rhythm, S1 normal heart sound and S2 normal heart sound GI normal to inspection, nondistended, normoactive bowel sounds Extremity General Extremity: edema; Negative for clubbing Skin no rashes or lesions noted Neuro oriented x3, CN's II-XII intact bilaterally, moves all extremities and no focal motor deficits Psych cooperative and affect normal Charges/Coding Visit Charges Inpatient E&M: 08414 Subs Hosp L2
[2024-03-15 06:57] LABS: Partial Thromboplast Time 49.9 Seconds (24.1-36.2)
[2024-03-15 07:05] LABS: Anion Gap 4 (5-15); BUN 23 mg/dL (7-18); BUN/Creat Ratio 28.8 RATIO (10-20); Calcium,Total 9.3 mg/dL (8.5-10.1); Chloride 108 mmol/L (98-107); EST Glomerular Filtration Rate 74 mL/min (>60); Est Glom Filt Rate - Afr Amer 90 mL/min (>60); Estimated Creatinine Clearance 67.41 ml/min; Glucose 116 mg/dL (74-106); Potassium 4.5 mmol/L (3.5-5.1); Sodium Level 139 mmol/L (136-145)
[2024-03-15] MEDS: Heparin Injection (Vial) 5,000 UNIT/ML VIAL IV (07:09)
[2024-03-15 07:25] LABS: Lymphocyte 15 % (19-41); Monocyte 4 % (0-10); Myelocyte 2 % (0-0); Neutrophil-Band 1 % (0-5); Neutrophil-Segmented 78 % (47-70); Red Cell Morphology N CHROM NORMAL (NORM C&C); Total Cells Counted 100 (MANUAL DIFF)
--- NOTE | 2024-03-15 07:27 | PN.HOSP_ITS ---
Reason for Visit Reason for Visit: Diagnoses Disorder of white blood cells, unspecified (03/12/24) Acidosis, unspecified (03/12/24) Other chronic pain (03/12/24) Other pulmonary embolism without acute cor pulmonale (03/12/24) Acute respiratory failure with hypoxia (03/12/24) Low back pain, unspecified (03/12/24) Fibromyalgia (03/12/24) Acute respiratory distress (03/12/24) Objective Data Objective Data Vital Signs: Vital Signs Temp Pulse Resp BP Pulse Ox O2 Del Method O2 Flow Rate 97 F L 70 16 128/82 H 93 High Flow 2 03/15/24 06:58 03/15/24 06:58 03/15/24 06:58 03/15/24 06:58 03/15/24 06:58 03/15/24 06:58 03/15/24 06:58 FiO2 27 03/14/24 21:51 Oxygen Flow Rate (L/min) 2 Oxygen Delivery Method High Flow Weight: 214 lb 1.102 oz Body Mass Index (BMI) 37.9 Intake & Output: Intake and Output for Last 24 Hours 03/13/24 03/14/24 03/15/24 23:59 23:59 23:59 Intake Total 1155.03 / 1155.03 915.00 / 1115.00 395.62 / 395.62 Output Total 200 / 200 300 / 300 Balance 955.03 / 955.03 615.00 / 815.00 395.62 / 395.62 Lab / Micro Data 03/15/24 06:00 03/15/24 06:00 Labs: Laboratory Results - last 24 hr 03/15/24 06:00: WBC 10.5, RBC 4.13 L, Hgb 12.3, Hct 37.9, MCV 91.8, MCH 29.8, MCHC 32.5, RDW Std Deviation 54.6 H, RDW Coeff of Larry 16.3 H, Plt Count 203, MPV 10.3, Neut % (Auto) Not Reportable, Total Counted 100, Neutrophils % (Manual) 78 H, Band Neutrophils % 1, Lymphocytes % (Manual) 15 L, Monocytes % (Manual) 4, M yelocytes % 2 H, RBC Morphology N CHROM, APTT 49.9 H, Sodium 139, Potassium 4.5, Chloride 108 H, Carbon Dioxide 27.0, Anion Gap 4 L, BUN 23 H, Creatinine 0.80, Estim Creat Clear Calc 67.41, Est GFR (MDRD) Af Amer 90, Est GFR (MDRD) Non-Af 74, BUN/Creatinine Ratio 28.8 H, Glucose 116 H, Calcium 9.3 Radiography Diagnostic Testing: Radiology Impression Venous Doppler Study 03/12/24 15:37 Interpretation Summary Acute deep vein thrombosis is noted in the left popliteal vein, tibioperoneal trunk vein, gastrocnemius vein, posterior tibial vein. Deep veins of the right lower extremity are patent and compressible segmentally. There is no evidence of right lower extremity deep vein thrombosis. The bilateral great saphenous veins appear patent and compressible segmentally Hypoechoic, non vascular structure noted left popliteal fossa measuring 1.10cm x 2.60cm Ordering Physician: Nelson Carr Referring Physician: Ed Bowman Chi Performed By: Chelo Brown, WILFRIDO, RVT Physical Exam Narrative Seen and examined Patient on 2 L of oxygen. No acute event overnight. Patient going for procedure. Physical exam: General: Alert, Oriented x3, Cooperative HEENT: Atraumatic, PERRLA, EOMI, Normocephalic Oral: No Gingival or Mucosal Lesions/ Ulcerations Neck: Supple, No JVD, Negative Carotid Bruits Chest wall/Lungs: Air entry diminished in bilateral lung bases. No crepitation/rhonchi Cardiovascular: NSR, Normal S1, Normal S2, systolic murmur LLSB. Abdomen: Bowel Sounds Present, Soft, Non Tender, Non-Distended : No dysuria. No renal angle tenderness. No suprapubic tenderness. Extremities: No edema, Capillary Refill Less than 3 Seconds Skin: No rashes, No breakdown Musculoskeletal: No Tenderness to Palpation of Joints or Extremities. Lumbar spine mild tenderness. Neurological: Cranial nerves II-XII grossly intact, DTR 2+/4. No acute focal neurological deficit. Psych/Mental Status: Normal Affect, Appropriate. Assessment & Plan Assessment/Plan (1) Bilateral pulmonary embolism: PLAN: Plan This is a 73-year-old female admitted for shortness of breath, as Eliquis on hold for anticipated lower back/epidural injection for pain control. Patient was diagnosed with left leg DVT and PE in December 2023 when she broke her left foot probably fracture of left lateral metatarsal (not sure but seems on the history) and has been taking Eliquis until March 06, 2024 when she stopped in anticipation of getting epidural spinal injection for pain control as she had lower spinal pain when she broke her left foot. Denies history of smoking or other chronic lung disease or heart disease. Her both parents were a smoker. She denies history of cancer. 1. Acute hypoxic respiratory failure from extensive bilateral pulmonary submassive embolism, right more severe than left pulmonary arteries with possible right heart strain: The patient is being admitted in ICU. On IV heparin drip with heparin nomogram and aPTT monitor. CTA chest was independently interpreted. Findings as mentioned above. 03/14: 2D echo reviewed. EF 55 to 60%, grade 1 diastolic dysfunction. Moderately dilated RV with mild to moderate global RV systolic dysfunction. Mild TR. Discussed with the [facility] surgeon on 03/13. Plan for catheter-based thrombectomy as she had severe right pulmonary artery thrombosis load on the top of previous PE in December 2023. 03/15: Hypoxia/acute respiratory failure improved. Patient on Airvo last 2 days but today on 2 L of oxygen. Patient going for catheter-based thrombectomy in the morning. Discussed with the vascular surgeon. 2. Fibromyalgia and chronic back pain?Home Vicodin restarted. On senna S as she is on opioid medication 3. Hypothyroidism Levothyroxine started. 4. Chronic anxiety disorder?buspirone continued 5. Neutrophilia probably inflammatory due to bilateral pulmonary embolism. Lactic acid elevated 3.2 improved to 2 point. No evidence of infection at this time. Lactic acidosis may be elevated from hypoperfusion related from bilateral pulmonary embolism. IV fluid normal saline ordered Advance care planning: Discussed with patient and family advanced directives as well as CODE STATUS. Explained various CODE STATUS: FULL CODE, DNR CCA, DNR CCA with no intubation, and DNR CC- and what each meant. Patient elected to be a full code with CPR and intubation if warranted. Order was placed. Surrogate decision maker is her son Maria Luisa Henley. Charges/Coding Visit Charges Inpatient E&M: 82049 Subs Hosp L2
[2024-03-15 07:29] LABS: Absolute Neutrophil Count 8.3 X10^3/uL (2.0-7.7)
--- NOTE | 2024-03-15 10:42 | PCM.OPRPT ---
Report of Operation Date of Procedure: 03/15/24 Pre-Operative Diagnosis: recurrent pulmonary embolism with acute on chronic thrombus, RV strain Post-Operative Diagnosis: same Surgery/Procedure Performed:: percutaneous mechanical thrombectomy, right pulmonary artery Surgeon: Neptali Duran Type of Anesthesia: Local and Sedation,Conscious Estimated Blood Loss (mL): 30 Description of Procedure: HPI: Patient is a 73-year-old female with submassive pulmonary embolism with significant hypoxia and right ventricular strain both based on imaging and biomarkers. She has a history of recent pulmonary embolism approximately 3 months prior with significant clot burden at that time which was treated only with anticoagulation. Recurrent imaging shows a mix of acute and chronic appearing thrombus. Given her clot burden, physiologic derangements, and the mixed chronicity of the clot she is felt to be appropriate for thrombectomy. It is unclear how much of the thrombus is acute versus chronic which does add some complexity to the procedure. Description of procedure: Upon obtaining form consent and verification correct patient procedure site patient taken to the [facility] where she was positioned prepped and draped in usual sterile fashion. Time was performed conscious sedation was ministered Versed and fentanyl. Skin overlying the right common femoral vein was Nestabs 1% lidocaine the vessel accessed with a micropuncture needle wire. This was exchanged for micropuncture sheath through which hand-injection ilio caval venogram was performed revealing satisfactory positioning with no extravasation or dissection. This also revealed patent iliac vein and vena cava. Through the micropuncture sheath a Bentson wire was advanced and the micropuncture sheath exchanged for an 8 Beninese sheath. Through the 8 Beninese sheath a Portage Cris catheter balloon and wire were advanced, navigated by Dr. Wheeler to aid in assessment of the right ventricular stress as well as pulmonary artery status and to successfully navigate the valvular structures. Pulmonary artery pressures were measured and 018 wire was advanced through the Portage catheter and the catheter withdrawn. An angled catheter was then advanced over the wire and exchanged for an Amplatz wire which was positioned in the lateral branch of the right pulmonary segmental branches. Catheter was then withdrawn and the 8 Beninese sheath exchanged for the Inari flow retriever sheath. This was then advanced and positioned the inferior vena cava just below the diaphragm. he patient was then heparinized and allowed to circulate for 3 minutes with subsequent heparin dosing based on ACT results. Through this the flow retriever 24 Beninese device was advanced navigating the right atrium and ventricle and into the pulmonary artery. Unfortunately the wire prolapsed back into the main pulmonary artery so the dilator was withdrawn and we again re-navigated into the more distal segmental branches. The catheter was withdrawn and the dilator readvanced and both flowtriever and dilator advanced into the distal right pulmonary artery. 2 aspirations were then performed via the thrombectomy catheter, with extracted blood filtered and we delivered via the sheath. There was significant thrombus retrieved with the first pass with significant less after the second aspiration. At this point we performed right pulmonary angiography via the catheter which revealed resolution of thrombus with filling of all branches of the right pulmonary artery extravasation or dissection. It was felt that no further intervention was required, and based on the CT scan the left pulmonary artery had no significant thrombus burden so the catheter and wire withdrawn. Silk suture was then placed in pursestring configuration around the access site and the sheath withdrawn followed by 15 minutes of manual pressure. Patient was then returned to the intensive care unit for hemodynamic monitoring.
--- NOTE | 2024-03-15 11:54 | CHAPLAIN ---
Type of Pastoral Visit _x__ Initial Visit ___ Follow-up Visit ___ On-call Visit ___ General Patient Visit ___ Spiritual Assessment ___ Family Conference ___ Bereavement ___ Rapid Response ___ Code Blue ___ Other (describe below) Pastoral Care Referral From _x__ Patient ___ Family ___ Nurse ___ Physician ___ Emergency Vehicle Operations Instructor ___ Machine Cutter ___ Other (describe below) Sacrament/Intervention _x__ Active listening ___ Anointing ___ Christianity ___ Bereavement ___ Communion ___ Jaqueline exploration ___ _x__ Life review _x__ Prayer ___ Reconciliation ___ Sacrament of Sick ___ Supportive presence ___ Wedding ___ Other (describe below) Pastoral Comments patient had requested a visit of spiritual care support and asked for a Bible to read; pt is welcoming and explains that she did receive a Bible last night from staff; pt talks about her situation which includes current and future health needs; pt requests prayer as well
[2024-03-15] MEDS: busPIRone 5 MG Tablet 10 MG PO ×2 (14:00→21:50)
[2024-03-15] MEDS: HEPARIN/D5w 25,000 UNITS 25,000 UNITS/250 ML IV.SOLN. 12 UNITS CONT INF (16:19)
[2024-03-15 16:33] LABS: Partial Thromboplast Time 98.9 Seconds (24.1-36.2)
[2024-03-15] MEDS: HYDROcodone Bitartrate/Apap 5/325 Tablet PO (21:49)
[2024-03-15] MEDS: Tolterodine Tartrate 4 MG CAP.SA PO (21:50)
[2024-03-15] MEDS: MELATONIN 3 MG TABLET PO (21:53)
[2024-03-16 00:10] LABS: Partial Thromboplast Time 49.2 Seconds (24.1-36.2)
[2024-03-16] MEDS: Heparin Injection (Vial) 5,000 UNIT/ML VIAL IV (01:17)
[2024-03-16] MEDS: 0.9% Saline Lock 10 ML Syringe IV ×2 (01:19→06:48)
[2024-03-16 03:30] VITALS: BP 130/74; PULSE 72; RESP 18; TEMP 36.5; O2SAT 97
[2024-03-16 03:41] VITALS: BMI 37.6
[2024-03-16 04:01] LABS: Hematocrit 35.2 % (37-47); Hemoglobin 11.4 g/dL (12.0-15.0); Mean Corp Hgb Conc 32.4 g/dL (32-36); Mean Corpuscular Hgb 29.8 pg (27.0-32.0); Mean Corpuscular Volume 92.1 fL (81-99); Mean Platelet Vol. 9.6 fl (6.2-12.0); POSITIVE COUNT YES; POSITIVE MORPHOLOGY YES; Platelet Count 200 K/mm3 (150-450); RBC Distribution Width CV 16.5 % (11.6-14.6); RBC Distribution Width SD 54.9 fl (35.1-43.9); Red Blood Count 3.82 M/mm3 (4.2-5.4); White Blood Count 8.7 K/mm3 (4.4-11.0)
[2024-03-16 04:02] LABS: Differential Indicated MANUAL DIFF
[2024-03-16 04:11] LABS: Anion Gap 4 (5-15); BUN 18 mg/dL (7-18); BUN/Creat Ratio 23.1 RATIO (10-20); Chloride 108 mmol/L (98-107); Creatinine, Serum 0.78 mg/dL (0.55-1.02); EST Glomerular Filtration Rate 76 mL/min (>60); Est Glom Filt Rate - Afr Amer 92 mL/min (>60); Estimated Creatinine Clearance 67.14 ml/min; Glucose 151 mg/dL (74-106); Potassium 4.2 mmol/L (3.5-5.1); Sodium Level 140 mmol/L (136-145)
[2024-03-16 04:58] LABS: Basophil 1 % (0-1); Lymphocyte 34 % (19-41); Monocyte 3 % (0-10); Myelocyte 1 % (0-0); Neutrophil-Segmented 59 % (47-70); Promyelocyte 2 % (0-0); Reactive Lymphocyte 2+; Total Cells Counted 100 (MANUAL DIFF)
[2024-03-16 04:59] LABS: Absolute Lymphocyte Count 2.97 X10^3/uL (0.83-4.51); Absolute Neutrophil Count 4.9 X10^3/uL (2.0-7.7)
--- NOTE | 2024-03-16 06:12 | PN.CC_ITS ---
Assessment & Plan Assessment/Plan (1) Acute hypoxic respiratory failure: PLAN: Plan RECOMMENDATIONS: 1. Okay to transition to oral anticoagulation regimen. 2. Perform walking oximetry study prior to consideration for discharge home. 3. Encourage incentive spirometer use and mobilize patient as tolerated. 4. Will sign off from a pulmonary/critical care perspective. Please call with any additional questions. IMPRESSIONS: 1. Respiratory failure with hypoxemia secondary to submassive PE The patient was hospitalized in December 2023 following a mechanical fall, which was complicated by bilateral pulmonary emboli. She was discharged home on Eliquis, which has been continued until 1.5 weeks ago, when it was discontinued in order to help facilitate epidural spinal injections for pain control. The patient then presented once again with acute onset dyspnea and radiographic evidence of proximal bilateral PE with biochemical evidence of right heart strain. The patient has been maintained on a weight-based heparin infusion and ultimately underwent pulmonary thrombectomy on March 15. At this time, recommend performing walking oximetry study prior to consideration for discharge home. I would recommend that the patient be transitioned to an oral anticoagulation regimen. 2. History of obesity/chronic pain syndrome/hypothyroidism/anxiety/depression Complicates care, management, recovery and prognosis. Continue home medications as indicated. This note was generated with [employer] dictation software. It may contain incorrect words, spelling, and punctuation that were not noted in checking the note before signing. Subjective Subjective The patient was seen and examined at the bedside this morning. Events from the last 24 hours have been reviewed. The patient underwent successful pulmonary thrombectomy yesterday and has been weaned to room air as of this morning. Hemoglobin and platelet count are stable. Objective Data Objective Data The patient's most recent lab work, culture data and imaging studies have all been personally reviewed. Surface echocardiogram demonstrated an ejection fraction of 55 to 60% with grade 1 diastolic dysfunction. Vital Signs: Vital Signs Temp Pulse Resp BP Pulse Ox O2 Del Method O2 Flow Rate 97.7 F L 72 18 130/74 H 97 Room Air 2 03/16/24 03:30 03/16/24 03:30 03/16/24 03:30 03/16/24 03:30 03/16/24 03:30 03/16/24 03:30 03/15/24 10:00 FiO2 27 03/14/24 21:51 Oxygen Flow Rate (L/min) 2 Oxygen Delivery Method Room Air Weight: 212 lb 8.41 oz Body Mass Index (BMI) 37.6 Intake & Output: Intake and Output for Last 24 Hours 03/14/24 03/15/24 03/16/24 23:59 23:59 23:59 Intake Total 915.00 / 1115.00 452.20 / 452.20 Output Total 300 / 300 1100 / 1100 Balance 615.00 / 815.00 -647.80 / -647.80 Lab / Micro Data Attestation: I reviewed the patient's lab results. 03/16/24 03:49 03/16/24 03:49 Labs: Laboratory Results - last 24 hr 03/15/24 06:00: WBC 10.5, RBC 4.13 L, Hgb 12.3, Hct 37.9, MCV 91.8, MCH 29.8, MCHC 32.5, RDW Std Deviation 54.6 H, RDW Coeff of Larry 16.3 H, Plt Count 203, MPV 10.3, Neut % (Auto) Not Reportable, Absolute Neuts (auto) 8.3 H, Absolute Lymphs (auto) 1.60, Total Counted 100, Neutrophils % (Manual) 78 H, Band Neutrophils % 1, Lymphocytes % (Manual) 15 L, Monocytes % (Manual) 4, Myelocytes % 2 H, Diff Path Review November, RBC Morphology N CHROM, APTT 49.9 H, Sodium 139, Potassium 4.5, Chloride 108 H, Carbon Dioxide 27.0, Anion Gap 4 L, BUN 23 H, Creatinine 0.80, Estim Creat Clear Calc 67.41, Est GFR (MDRD) Af Amer 90, Est GFR (MDRD) Non-Af 74, BUN/Creatinine Ratio 28.8 H, Glucose 116 H, Calcium 9.3 03/15/24 16:00: APTT 98.9 H* 03/15/24 23:50: APTT 49.2 H 03/16/24 03:49: WBC 8.7, RBC 3.82 L, Hgb 11.4 L, Hct 35.2 L, MCV 92.1, MCH 29.8, MCHC 32.4, RDW Std Deviation 54.9 H, RDW Coeff of Larry 16.5 H, Plt Count 200, MPV 9.6, Neut % (Auto) Not Reportable, Absolute Neuts (auto) 4.9, Absolute Lymphs (auto) 2.97, Total Counted 100, Neutrophils % (Manual) 59, Lymphocytes % (Manual) 34, Monocytes % (Manual) 3, Basophils % (Manual) 1, Myelocytes % 1 H, P romyelocytes % 2 H, Diff Path Review May foll, Reactive Lymphocytes 2+, Sodium 140, Potassium 4.2, Chloride 108 H, Carbon Dioxide 28.0, Anion Gap 4 L, BUN 18, Creatinine 0.78, Estim Creat Clear Calc 67.14, Est GFR (MDRD) Af Amer 92, Est GFR (MDRD) Non-Af 76, BUN/Creatinine Ratio 23.1 H, Glucose 151 H, Calcium 9.0 Radiography Diagnostic Testing: Radiology Impression Venous Doppler Study 03/12/24 15:37 Interpretation Summary Acute deep vein thrombosis is noted in the left popliteal vein, tibioperoneal trunk vein, gastrocnemius vein, posterior tibial vein. Deep veins of the right lower extremity are patent and compressible segmentally. There is no evidence of right lower extremity deep vein thrombosis. The bilateral great saphenous veins appear patent and compressible segmentally Hypoechoic, non vascular structure noted left popliteal fossa measuring 1.10cm x 2.60cm Ordering Physician: Nelson Carr Referring Physician: Ed Bowman Chi Performed By: Chelo Brown, SHAHIDACS, RVT Physical Exam Const alert and no apparent distress Constitutional Narrative: Obese. General Appearance: cooperative HEENT normocephalic and head/scalp atraumatic Eyes PERRL, EOMs intact bilaterally and conjunctivae normal Neck supple General: trachea midline Chest inspection of chest normal Resp normal respiratory effort Auscultation: Negative for rales, rhonchi or wheezes Cardio regular rate, regular rhythm, S1 normal heart sound and S2 normal heart sound GI normal to inspection, nondistended, normoactive bowel sounds Extremity General Extremity: edema; Negative for clubbing Skin no rashes or lesions noted Neuro oriented x3, CN's II-XII intact bilaterally, moves all extremities and no focal motor deficits Psych cooperative and affect normal Charges/Coding Visit Charges Inpatient E&M: 14814 Subs Hosp L2
[2024-03-16] MEDS: busPIRone 5 MG Tablet 10 MG PO (06:48)
[2024-03-16] MEDS: Levothyroxine 25 MCG TABLET PO (06:48)
[2024-03-16 07:10] LABS: Partial Thromboplast Time 59.2 Seconds (24.1-36.2)
--- NOTE | 2024-03-16 07:19 | PCM.DC ---
Discharge Instructions Diet Discharge Diet: Low fat / Low cholesterol and 2000 mg Sodium Diet Activity Discharge Activity: Return to Normal Activity Weight Bearing Status: Weight bearing as tolerated Dressing / Incision Call your doctor if you observe: Fever of 101 or Higher, Coldness, Increased Pain, Numbness or Tingling, Change in Color, Inability to urinate, Inability to have a bowel movement, Shortness of breath, Dizziness, Fainting spells, Swelling in the ankles, Chest pain, Prolonged hiccupping, Increased palpitations (irregular heartbeat) and Calf discomfort Follow Up Care When: IN 2 WEEKS Test Results: Test results from this visit will be discussed in further detail at your follow-up appointment, if applicable. Discharge Plan Admission Admit Date/Time: 03/12/24 15:30 Primary Reason for Your Visit: Bilateral submassive PE Attending Provider: Dayday Pat Primary Care Provider: Ed Bowman Chi Consulting Providers: Neptali Duran; Nelson Carr Discharge Orders/Prescriptions Prescriptions: Continued cholecalciferol (vitamin D3) 25 mcg (1,000 unit) capsule 25 mcg PO DAILY buspirone 10 mg tablet 10 mg PO TID Eliquis DVT-PE Treat 30D Start 5 mg (74 tabs) tablets,dose pack 5 mg PO BID Qty: 74 0RF Rx Instructions: 10 mg twice daily for 1 week to 03/22/2024 and then transition to 5 mg twice daily on 03/23/2024 at 10 AM. hydrocodone-acetaminophen 7.5-325 mg tablet 1 tab PO TID PRN PRN (Reason: pain) levothyroxine 25 mcg tablet 25 mcg PO DAILY tolterodine 2 mg tablet 2 mg PO BID Rx Instructions: per pt dose recently increased to BID omeprazole 40 mg capsule,delayed release(DR/EC) 40 mg PO QDAY Qty: 30 3RF Rx Instructions: swallow whole; do not crush, chew, dissolve, cut, break--take in PM or 2 hrs after levothyroxine Referrals / Follow Up: Ed Bowman Chi, MD [Primary Care Provider] - Ayaan Barnes DO [Med Staff - Active Staff] - Within 1 Month Neptali Duran MD [Med Staff - Active Staff] - Within 1 Month Ke Saeed MD [Med Staff - Active Staff] - Within 1 Month (Bilateral submassive PE. Recurrent after stopping Eliquis) Essie Guzman MOLD MAKER PLASTER, MOLD MAKER PLASTER-C [Med Staff - Adv Practice Prof] - Within 2 Weeks Disposition Disposition (needs filled in before D/C Order can be placed): Home, Self Care
--- NOTE | 2024-03-16 08:31 | PCM.DC.SUM ---
Providers Date of Admission: 03/12/24 Date of Discharge: 03/16/24 Primary Care Physician: Dr. Ed Bowman MD Consultations 03/12/24 15:37 Consult: Mine Administrator Supervisor / Pulmonary Medicine Routine Consulting Provider: Ayaan Barnes Reason for Consult: Bilateral PE with right heart strain EMERGENT Consult: No Notified: Yes Date Notified: 03/13/24 Time Notified: 06:00 Method of Notification: Verbal 03/13/24 06:31 Consult: Vascular Surgery Routine Consulting Provider: Neptali Duran Reason for Consult: Submassive PE EMERGENT Consult: No Notified: Yes Date Notified: 03/13/24 Time Notified: 06:31 Method of Notification: Verbal Reason For Visit: BILATERAL PE Diagnosis Discharge Diagnosis (1) Acute hypoxic respiratory failure: Status: Acute Code(s): J96.01 - Acute respiratory failure with hypoxia Plan This is a 73-year-old female admitted for shortness of breath, as Eliquis on hold for anticipated lower back/epidural injection for pain control. Patient was diagnosed with left leg DVT and PE in December 2023 when she broke her left foot probably fracture of left lateral metatarsal (not sure but seems on the history) and has been taking Eliquis until March 06, 2024 when she stopped in anticipation of getting epidural spinal injection for pain control as she had lower spinal pain when she broke her left foot. Denies history of smoking or other chronic lung disease or heart disease. Her both parents were a smoker. She denies history of cancer. 1. Acute hypoxic respiratory failure from extensive bilateral pulmonary submassive embolism, right more severe than left pulmonary arteries with possible right heart strain: The patient is being admitted in ICU. On IV heparin drip with heparin nomogram and aPTT monitor. CTA chest was independently interpreted. Findings as mentioned above. 03/14: 2D echo reviewed. EF 55 to 60%, grade 1 diastolic dysfunction. Moderately dilated RV with mild to moderate global RV systolic dysfunction. Mild TR. Discussed with the [facility] surgeon on 03/13. Plan for catheter-based thrombectomy as she had severe right pulmonary artery thrombosis load on the top of previous PE in December 2023. 03/15: Hypoxia/acute respiratory failure improved. Patient on Airvo last 2 days but today on 2 L of oxygen. Patient going for catheter-based thrombectomy in the morning. Discussed with the vascular surgeon. 03/16: Patient had percutaneous mechanical thrombectomy of right pulmonary artery. Right groin access site no hematoma or bruise. Dressing is dry. 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 IV heparin drip is transition to Eliquis 10 mg twice daily for 1 week and then transition to 5 mg twice daily on 03/23/2024., Eliquis to continue, most likely lifelong with recurrent after holding for 5 days. 2. Fibromyalgia and chronic back pain?Home Vicodin restarted. On senna S as she is on opioid medication 3. Hypothyroidism Levothyroxine started. 4. Chronic anxiety disorder?buspirone continued 5. Neutrophilia probably inflammatory due to bilateral pulmonary embolism. Lactic acid elevated 3.2 improved to 2 point. No evidence of infection at this time. Lactic acidosis may be elevated from hypoperfusion related from bilateral pulmonary embolism. IV fluid normal saline ordered 6. Chronic urge incontinence: Patient on Detrol 2 mg twice daily at home. Here, formulary is Detrol LA but is still incontinent on 4 mg today. Patient can have home Detrol after discharge. Discharge medication reconciliation done. Discharge follow-up instructions completed. Discharge process discussed with the patient and all questions were answered to patient's satisfaction. Follow with PCP in 1 to 2 weeks Total time spent, exact 35 minutes on discharge meds reconciliation, examination, coordination of care with nurses and ancillary staff, review of imaging and blood test and discussion with the patient on follow-up instructions. Advance care planning: Discussed with patient and family advanced directives as well as CODE STATUS. Explained various CODE STATUS: FULL CODE, DNR CCA, DNR CCA with no intubation, and DNR CC- and what each meant. Patient elected to be a full code with CPR and intubation if warranted. Order was placed. Surrogate decision maker is her son Maria Luisa Henley. Medications at Discharge Home Medications hydrocodone 7.5 mg-acetaminophen 325 mg tablet 1 tab PO TID PRN PRN pain 12/15/23 levothyroxine 25 mcg tablet 25 mcg PO DAILY thyroid 12/15/23 tolterodine 2 mg tablet 2 mg PO BID over active bladder 12/15/23 buspirone 10 mg tablet 10 mg PO TID anxiety 02/23/24 cholecalciferol (vitamin D3) 25 mcg (1,000 unit) capsule 25 mcg PO DAILY supplement 02/23/24 omeprazole 40 mg capsule,delayed release 40 mg PO QDAY unknown #30 caps 03/02/24 apixaban 5 mg (74 tabs) tablets in a dose pack ([employer] DVT-PE Treat 30D Start) 5 mg PO BID PE #74 tabs 03/16/24 Physical Exam Narrative Seen and examined Patient on 2 L of oxygen. No acute event overnight. Patient had right pulmonary artery thrombectomy Physical exam: General: Alert, Oriented x3, Cooperative HEENT: Atraumatic, PERRLA, EOMI, Normocephalic Oral: No Gingival or Mucosal Lesions/ Ulcerations Neck: Supple, No JVD, Negative Carotid Bruits Chest wall/Lungs: Air entry diminished in bilateral lung bases. No crepitation/rhonchi Cardiovascular: NSR, Normal S1, Normal S2, systolic murmur LLSB. Abdomen: Bowel Sounds Present, Soft, Non Tender, Non-Distended : No dysuria. No renal angle tenderness. No suprapubic tenderness. Extremities: No edema, Capillary Refill Less than 3 Seconds Skin: Right groin, dressing is dry. No hematoma or bruise. Mild tenderness, expected. Musculoskeletal: No Tenderness to Palpation of Joints or Extremities. Lumbar spine mild tenderness. Neurological: Cranial nerves II-XII grossly intact, DTR 2+/4. No acute focal neurological deficit. Psych/Mental Status: Normal Affect, Appropriate. Weight / BMI Weight Weight: 212 lb 8.41 oz Body Mass Index (BMI) 37.6 ABG / Lab / Microbiology Data 03/16/24 03:49 03/16/24 03:49 Laboratory: Laboratory Results - last 24 hr 03/15/24 16:00: APTT 98.9 H* 03/15/24 23:50: APTT 49.2 H 03/16/24 03:49: WBC 8.7, RBC 3.82 L, Hgb 11.4 L, Hct 35.2 L, MCV 92.1, MCH 29.8, MCHC 32.4, RDW Std Deviation 54.9 H, RDW Coeff of Larry 16.5 H, Plt Count 200, MPV 9.6, Neut % (Auto) Not Reportable, Absolute Neuts (auto) 4.9, Absolute Lymphs (auto) 2.97, Total Counted 100, Neutrophils % (Manual) 59, Lymphocytes % (Manual) 34, Monocytes % (Manual) 3, Basophils % (Manual) 1, Myelocytes % 1 H, Promyelocytes % 2 H, Diff Path Review May foll, Reactive Lymphocytes 2+, Sodium 140, Potassium 4.2, Chloride 108 H, Carbon Dioxide 28.0, Anion Gap 4 L, BUN 18, Creatinine 0.78, Estim Creat Clear Calc 67.14, Est GFR (MDRD) Af Amer 92, Est GFR (MDRD) Non-Af 76, BUN/Creatinine Ratio 23.1 H, Glucose 151 H, Calcium 9.0 03/16/24 06:55: APTT 59.2 H D/C Instructions Discharge Diet: Low fat / Low cholesterol and 2000 mg Sodium Diet Weight Bearing Status: Weight bearing as tolerated Call your doctor if you observe: Fever of 101 or Higher, Coldness, Increased Pain, Numbness or Tingling, Change in Color, Inability to urinate, Inability to have a bowel movement, Shortness of breath, Dizziness, Fainting spells, Swelling in the ankles, Chest pain, Prolonged hiccupping, Increased palpitations (irregular heartbeat) and Calf discomfort When: IN 2 WEEKS Meaningful Use Info Meaningful Use Meaningful Use Diagnoses (Choose all that apply): VTE Ischemic Stroke Statin Dosing Therapy Reference: STATIN DOSE THERAPY REFERENCE: * Patients > 75 years receive moderate or high dose statin therapy. * Patients 75 years or YOUNGER should receive HIGH intensity statin dose unless contraindicated. You will be required to document reason for non-treatment if statin daily dose does not meet guidelines. HIGH DOSE STATIN THERAPY DAILY Atorvastatin > than or = to 40 mg Rosuvastatin > than or = to 20 mg Amlodipine + Atorvastatin > than or = to 2.5/40 mg Ezetimibe + Simvastatin 10/80 mg Simvastatin 80mg VTE Anticoag overlap given w/in hospital stay or rx'd at in?: No Reason overlap not ordered, prescribed, or given for 5 days: Treatment Not Indicated Discharge Plan Admission Admit Date/Time: 03/12/24 15:30 Primary Reason for Your Visit: Bilateral submassive PE Attending Provider: Dayday Pat Primary Care Provider: Ed Bowman Chi Consulting Providers: Neptali Duran; Nelson Carr Discharge Orders/Prescriptions Prescriptions: Continued cholecalciferol (vitamin D3) 25 mcg (1,000 unit) capsule 25 mcg PO DAILY buspirone 10 mg tablet 10 mg PO TID Eliquis DVT-PE Treat 30D Start 5 mg (74 tabs) tablets,dose pack 5 mg PO BID Qty: 74 0RF Rx Instructions: 10 mg twice daily for 1 week to 03/22/2024 and then transition to 5 mg twice daily on 03/23/2024 at 10 AM. hydrocodone-acetaminophen 7.5-325 mg tablet 1 tab PO TID PRN PRN (Reason: pain) levothyroxine 25 mcg tablet 25 mcg PO DAILY tolterodine 2 mg tablet 2 mg PO BID Rx Instructions: per pt dose recently increased to BID omeprazole 40 mg capsule,delayed release(DR/EC) 40 mg PO QDAY Qty: 30 3RF Rx Instructions: swallow whole; do not crush, chew, dissolve, cut, break--take in PM or 2 hrs after levothyroxine Referrals / Follow Up: Ayaan Barnes DO [Med Staff - Active Staff] - Within 1 Month Neptali Duran MD [Med Staff - Active Staff] - Within 1 Month Ke Saeed MD [Med Staff - Active Staff] - Within 1 Month (Bilateral submassive PE. Recurrent after stopping Eliquis) Ed Bowman Chi, MD [Primary Care Provider] - Essie Guzman NP, DRY STARCH OPERATOR-C [Med Staff - Adv Practice Prof] - Within 2 Weeks Disposition Disposition (needs filled in before D/C Order can be placed): Home, Self Care Charges/Coding Visit Charges Inpatient E&M: 87630 Disch Hosp >30min
[2024-03-16] MEDS: Pantoprazole Sodium 40 MG Tablet PO (08:42)
[2024-03-16] MEDS: Cholecalciferol (VIT D3) 25 MCG TABLET (1,000 UNITS) PO (08:42)
[2024-03-16] MEDS: Tolterodine Tartrate 4 MG CAP.SA PO (08:45)
[2024-03-16 08:52] LABS: Pathologist Review Reviewed
--- NOTE | 2024-03-16 09:03 | PN.SURG_ITS ---
Subjective Subjective Jennifer was seen resting comfortably in bed this morning. She reports she feels much better since the thrombectomy, back to normal. She denies any shortness of breath, chest pain this morning. She is saturating well on room air. She reports she has not yet walked very far but is looking forward to doing so later this morning. Objective Data Objective Data Vital Signs: Vital Signs Temp Pulse Resp BP Pulse Ox O2 Del Method O2 Flow Rate 97.7 F L 72 18 130/74 H 97 Room Air 2 03/16/24 03:30 03/16/24 03:30 03/16/24 03:30 03/16/24 03:30 03/16/24 03:30 03/16/24 03:30 03/15/24 10:00 FiO2 27 03/14/24 21:51 Oxygen Flow Rate (L/min) 2 Oxygen Delivery Method Room Air Weight: 212 lb 8.41 oz Body Mass Index (BMI) 37.6 Intake & Output: Intake and Output for Last 24 Hours 03/14/24 03/15/24 03/16/24 23:59 23:59 23:59 Intake Total 915.00 / 1115.00 452.20 / 452.20 156.52 / 156.52 Output Total 300 / 300 1100 / 1100 450 / 450 Balance 615.00 / 815.00 -647.80 / -647.80 -293.48 / -293.48 Lab / Micro Data 03/16/24 03:49 03/16/24 03:49 Labs: Laboratory Results - last 24 hr 03/15/24 06:00: Diff Path Review Reviewed 03/15/24 16:00: APTT 98.9 H* 03/15/24 23:50: APTT 49.2 H 03/16/24 03:49: WBC 8.7, RBC 3.82 L, Hgb 11.4 L, Hct 35.2 L, MCV 92.1, MCH 29.8, MCHC 32.4, RDW Std Deviation 54.9 H, RDW Coeff of Larry 16.5 H, Plt Count 200, MPV 9.6, Neut % (Auto) Not Reportable, Absolute Neuts (auto) 4.9, Absolute Lymphs (auto) 2.97, Total Counted 100, Neutrophils % (Manual) 59, Lymphocytes % (Manual) 34, Monocytes % (Manual) 3, Basophils % (Manual) 1, Myelocytes % 1 H, P romyelocytes % 2 H, Diff Path Review May foll, Reactive Lymphocytes 2+, Sodium 140, Potassium 4.2, Chloride 108 H, Carbon Dioxide 28.0, Anion Gap 4 L, BUN 18, Creatinine 0.78, Estim Creat Clear Calc 67.14, Est GFR (MDRD) Af Amer 92, Est GFR (MDRD) Non-Af 76, BUN/Creatinine Ratio 23.1 H, Glucose 151 H, Calcium 9.0 03/16/24 06:55: APTT 59.2 H Physical Exam Const alert, oriented x3 and no apparent distress General Appearance: cooperative and comfortable HEENT normocephalic, head/scalp atraumatic, hearing grossly normal bilaterally, external ears normal and external nose normal Eyes EOMs intact bilaterally General Eye: normal appearance of both eyes Neck General: normal visual inspection and trachea midline Resp normal respiratory effort, normal air movement, no retractions and no use of accessory muscles Effort and Inspection: able to speak in complete sentences Cardio regular rate and regular rhythm Extremity normal to inspection and no clubbing, cyanosis or edema Extremity Narrative: Right groin access site with dressing clean, dry, and intact. No evidence of hematoma or bleeding. Soft and nontender to palpation. Skin no rashes or lesions noted Trauma: no lacerations or abrasions Neuro oriented x3, CN's II-XII intact bilaterally, moves all extremities, no focal motor deficits and no sensory deficits noted Psych mental status grossly normal, thought process normal, cooperative, affect normal, speech normal and activity/motor behavior normal Assessment & Plan Assessment/Plan (1) Bilateral pulmonary embolism: PLAN: Plan She is status post percutaneous mechanical thrombectomy of the right pulmonary artery on 03/15/2024. The procedure was successful without complication and she tolerated it well. She reports significant improvement in her symptoms following the procedure and she is now saturating well on room air. Right groin access site with no evidence of hematoma or bleeding. Okay to transition to DOAC today and discharge planning as per primary team. Patient will follow-up in the office as an outpatient in 1 to 2 weeks for suture removal. Charges/Coding Visit Charges Inpatient E&M: 21987 Subs Hosp L1
[2024-03-16 09:10] VITALS: O2SAT 95
[2024-03-16] MEDS: APIXABAN 5 MG TABLET 10 MG PO (09:12)
--- NOTE | 2024-03-16 09:13 | CASEMGMT ---
See MEY SARGENT Assessment. Pt has an order for DC in. MEY SARGENT to pt room at this time. Pt states that she has a ride coming to pick her up at 1100 today. Pt states I feel like a whole new person. Pt states that she feels safe DC home today. Pt continues to deny the need for HHC, OP Tx. Pt states that she still has the Pulse Ox that this MEY SARGENT gave and also the audio visual aide list. Pt is currently 97% on RA. Pt denies any further questions or concerns. Pt RN updated.
[2024-03-16] MEDS: HYDROcodone Bitartrate/Apap 5/325 Tablet PO (09:16)
[2024-03-16 09:30] VITALS: BP 123/82; PULSE 73; RESP 16; TEMP 36.3; O2SAT 95
[2024-03-16 10:16] LABS: Pathologist Review Reviewed
== END 2024-03-16 10:56 | disposition home or self-care (01) | DRG 163 ==
LOC: ED 14:37 → ICU 16:07
PROVIDERS: Surgery Trauma Surgery; Admitting Provider Hospitalist; Emergency Provider Emergency Medicine; PCP Family Medicine Geriatric Medicine; Visit Provider Internal Medicine
DX: I26.09 Other pulmonary embolism with acute cor pulmonale (principal); J96.01 Acute respiratory failure with hypoxia; E03.9 Hypothyroidism, unspecified; I27.82 Chronic pulmonary embolism; F41.9 Anxiety disorder, unspecified; M79.7 Fibromyalgia; M54.50 Low back pain, unspecified; D72.828 Other elevated white blood cell count; G89.29 Other chronic pain; R32 Unspecified urinary incontinence; Z79.01 Long term (current) use of anticoagulants; Z79.890 Hormone replacement therapy; Z79.899 Other long term (current) drug therapy
CPT/HCPCS: 36014; 36415; 37184; 37214; 71275; 76937; 80048; 80053; 80061; 80076; 82306; 83605; 83880; 84443; 84484; 85025; 85610; 85730; 93005; 93306; 93970; 94660; 94762; 99152; 99153; 99285; C1757; C1769; C1894; J7040; Q9957; Q9967; A4216; C1751; C8929; J2405

== ENCOUNTER → 2024-05-11 | Outpatient (CLI) | payer MEDICARE, SELFPAY ==
--- NOTE | 2024-05-11 16:56 | CT_ITS ---
ACR Level 3 findings have been noted. An addendum which confirms receipt of the report will follow. STUDY: CTA CHEST REASON FOR EXAM: Female, 73 years old. SADDLE PULMONARY EMBOLUS. Patient with previously shallow pulmonary emboli.. RADIATION DOSAGE (If Supplied By Facility): CTDIvol = ( 7.26 ) mGy, DLP = ( 456.85 ). TECHNIQUE: The examination was performed with the intravenous administration of IV 100mL Isovue-370. Post-processing of the angiographic images was performed, with multiplanar reformation and 3D reconstruction. Individualized dose optimization techniques were used for this CT. COMPARISON: 12/14/2023, 03/12/2024. FINDINGS: Normal enhancement of the main pulmonary artery and right and left pulmonary arteries. There is minimal residual nonocclusive pulmonary emboli remaining in the descending pulmonary arteries. No significant pulmonary emboli in segmental or subsegmental vessels. No new pulmonary emboli. Overall findings are markedly improved since previous studies. Normal thoracic aorta and visualized great vessels. There is no demonstrated aortic dissection. Normal heart and pericardium. No right heart strain. Normal mediastinum. Normal hilar regions. Normal visualized trachea and bronchi. The lungs are under expanded. No definite infiltrates. Probable mild subsegmental atelectasis of the lower lungs. No effusions. Normal osseous structures. Normal visualized upper abdomen. CT/CTA Chest W/WO Contrast IMPRESSION: Markedly improved since prior exams. Only traces of pulmonary emboli remain in the distal right left main pulmonary arteries. No new pulmonary emboli. The Nonstandard Physician Communication protocol was initiated. Electronically Signed: Hollis Chaney MD at 17:44 EDT ,
--- OUTSIDE RECORDS SUMMARY | 2024-05-11 18:58 | XMS RPT_ITS | CCD ---
Author Organization [place] [facility] Results Test Name Value Interpretation Reference Range Facility CNOV 02-21-2021 CNOV Office Visit (UCWSTR) BARBARA GLASS ([id number]) 1950 F Date Time Provider Department 02/21/21 11:00 AM HOANG MELVIN [facility] During your visit today, we recorded the following information about you: Temperature Pulse Respiration Blood pressure 98.7 degrees 86/minute 16/minute 128/80 Weight 89.8 kg Hoang Melvin APRN.NAILHEAD OPERATOR 02/21/2021 11:45 AM Signed Subjective HPI Nontoxic appearing female presents urgent care chief complaint left second digit laceration. Duration of symptoms greater than 3 days. Patient states she was opening a box with a box worker when she cut her index finger left [...] ALLERGIES Patient has no known allergies. MEDICATIONS HYDROcodone-Acetamin ophen (NORCO) 7.5-325 mg per tablet Take 1 tablet by mouth three times daily as needed. buPROPion SR (ZYBAN SR; WELLBUTRIN SR) 150 mg 12 hr tablet Take 150 mg by mouth twice daily. gabapentin (NEURONTIN) 400 mg capsule Take 1 capsule by mouth once daily. kgiumfanumx-E3-Bwksx llia serr (OSTEO BI-FLEX, 5-LOXIN,) 1,500-400-100 mg-unit-mg tab Take 1 tablet by mouth once daily. LIDOCAINE (PF) 100 MG/ML (10 %) IV Not sure of dose, IV lidocaine infusion once monthly FAMILY HISTORY Problem Relation Age of Onset - Heart Mother [facility] - Cancer Father Lung - Heart Sister [place], stents Social History Tobacco Use - Smoking [...] visit to see if provider will so woun (more content not included)... [facility] Anion gap [Moles/Vol] 8 mmol/L Normal 5-16 [facility] Comment on above: Order Comment: Campu s: M Performed By: #### L 500.73912, L500.70305, L500.32907 #### [facility] [place] [address] Calcium [Mass/Vol] 9.5 mg/dL Normal 8.5-10.5 [facility] Comment on above: Order Comment: Campu s: M Result Comment: NOTE NEW NORMAL RANGE DUE TO REAGENT CHANGE Performed By: #### L 500.17462, L500.63032, L500.18093 #### [facility] [place] [address] Chloride [Moles/Vol] 105 mmol/L Normal 98-107 [facility] Comment on above: Order Comment: Campu s: M Performed By: #### L 500.23172, L500.44510, L500.04313 #### [facility] [place] [address] CO2 [Moles/Vol] 29.0 mmol/L Normal 21-32 [facility] Comment on above: Order Comment: Campu s: M Performed By: #### L 500.59635, L500.30723, L500.06743 #### [facility] [address] [place] [address] Creatinine [Mass/Vol] 1.33 mg/dL High 0.510-0.950 [facility] Comment on above: Order Comment: Campu s: M Result Comment: Clara ents receiving either N-Acetylcysteine (NAC) or Metamizole prior to venipuncture, may have falsely depressed results. Performed By: #### L 500.19463, L500.53480, L500.37420 #### [facility] [address] [place] [address] Glucose [Mass/Vol] 115 mg/dL High 70-100 [facility] Comment on above: Order Comment: Campu s: M Result Comment: 70-1 00- Normal Fasting; 100-125 Impaired Fasting; greater than 126 on more than one result- Diabetes. ADA guidelines. Results may be falsely elevated after the administration of Sulfapyridine. Results may be falsely depressed after the administration of Sulfasalazine. Performed By: #### L 500.58612, L500.77934, L500.69145 #### [facility] [place] [address] Potassium [Moles/Vol] 4.3 mmol/L Normal 3.5-5.1 [facility] Comment on above: Order Comment: Campu s: M Result Comment: Slig ht Hemolysis, Result may be affected. Performed By: #### L 500.28735, L500.18726, L500.88670 #### [facility] [address] [place] [address] Sodium [Moles/Vol] 142 mmol/L Normal 136-145 [facility] Comment on above: Order Comment: Campu s: M Performed By: #### L 500.81487, L500.79661, L500.79518 #### [facility] [address] [place] [address] Urea nitrogen [Mass/Vol] 21 mg/dL Normal 7-26 [facility] Comment on above: Order Comment: Campu s: M Performed By: #### L 500.48118, L500.96068, L500.18455 #### [facility] [address] [place] [address] Urea nitrogen/Creatinine [Mass ratio] 16 mg/mg Normal 15-24 [facility] Comment on above: Order Comment: Campu s: M Performed By: #### L 500.57689, L500.72458, L500.81980 #### [facility] [address] [place] [address] CBC W/DIFFon 01-03-2021 BASO ABS 0.10 K/CU MM Normal 0-0.2 [facility] Comment on above: Order Comment: Campu s: M Performed By: #### L .69391 #### [facility] [address] [place] [address] Basophils/100 WBC (Bld) 0.4 % Normal 0-2 [facility] Comment on above: Order Comment: Campu s: M Performed By: #### L .34725 #### [facility] [address] [place] [address] EOS ABS 0.00 K/CU MM Normal 0-0.5 [facility] Comment on above: Order Comment: Campu s: M Performed By: #### L .01040 #### [facility] [address] [place], [place] [address] Eosinophils/100 WBC (Bld) 0.1 % Normal 0-5 [facility] Comment on above: Order Comment: Augustu s: M Performed By: #### L 200.85889 #### [facility] [address] [place] [address] Erythrocyte distribution width (RBC) [Ratio] 13.7 % Normal 11-14.5 [facility] Comment on above: Order Comment: Campu s: M Performed By: #### L 200.73389 #### [facility] [address] [place] [address] Hematocrit (Bld) [Volume fraction] 44.2 % Normal 35.0-47.0 [facility] Comment on above: Order Comment: Campu s: M Performed By: #### L 200.50659 #### [facility] [address] [place] [address] Hemoglobin (Bld) [Mass/Vol] 14.9 g/dL Normal 11.5-15.5 [facility] Comment on above: Order Comment: Campu s: M Performed By: #### L 200.98390 #### [facility] [address] [place] [address] IMMATR GRAN ABS 0.10 K/CU MM Normal Less than 2 [facility] Comment on above: Order Comment: Campu s: M Performed By: #### L 200.23388 #### [facility] [address] [place] [address] IMMATURE GRAN % 0.8 % Normal Less than 2 [facility] Comment on above: Order Comment: Campu s: M Performed By: #### L 200.02268 #### [facility] [address] [place] [address] LYMPH ABS 1.90 K/CU MM Normal 0.9-4.4 [facility] Comment on above: Order Comment: Campu s: M Performed By: #### L 200.54508 #### [facility] [address] [place] [address] Lymphocytes/100 WBC (Bld) 14.4 % Low 20-40 [facility] Comment on above: Order Comment: Campu s: M Performed By: #### L 200.48141 #### [facility] [address] [place] [address] MCHC (RBC) [Mass/Vol] 33.7 g/dL Normal 32.0-36.0 [facility] Comment on above: Order Comment: Campu s: M Performed By: #### L .36890 #### [facility] [address] [place] [address] MCV (RBC) [Entitic vol] 89.1 fL Normal 80.0-99.0 [facility] Comment on above: Order Comment: Campu s: M Performed By: #### L 200.03674 #### [facility] [address] [place] [address] MONO ABS 1.00 K/CU MM Normal 0.1-1.1 [facility] Comment on above: Order Comment: Campu s: M Performed By: #### L 200.31145 #### [facility] [address] [place] [address] Monocytes/100 WBC (Bld) 7.5 % Normal 2-10 [facility] Comment on above: Order Comment: Campu s: M Performed By: #### L 200.46302 #### [facility] [address] [place] [address] NEUTROPHIL ABS 10.40 K/CU MM High 2.0-8.3 [facility] Comment on above: Order Comment: Campu s: M Performed By: #### L 200.03202 #### [facility] [address] [place] [id number] Neutrophils/100 WBC (Bld) 76.8 % High 45-75 [facility] Comment on above: Order Comment: Campu s: M Performed By: #### L 200.95550 #### [facility] [address] [place], [place] [address] Nucleated RBC/100 WBC (Bld) [Ratio] 0.0 % Normal Less than 1 [facility] Comment on above: Order Comment: Campu s: M Performed By: #### L 200.97041 #### [facility] [address] [place] [address] Platelet mean volume (Bld) [Entitic vol] 9.1 fL Low 9.4-12.4 [facility] Comment on above: Order Comment: Campu s: M Performed By: #### L 200.95326 #### [facility] [address] [place] [address] PLT 296 K/CU MM Normal 150-450 [facility] Comment on above: Order Comment: Campu s: M Performed By: #### L 200.36376 #### [facility] [address] [place] [address] RBC 4.96 M/CU MM Normal 3.90-5.30 [facility] Comment on above: Order Comment: Campu s: M Performed By: #### L 200.16784 #### [facility] [address] [place], [place] [address] WBC 13.5 K/CUMM High 4.5-11.0 [facility] Comment on above: Order Comment: Campu s: M Performed By: #### L 200.88686 #### [facility] [address] [place], [place] [address] CT HEAD/BRAIN W/O CONon 06-2 5-2021 CT HEAD/BRAIN W/O CON CT HEAD/BRAIN W/O CON Ordering Physician: Melvin Herbert DO 01/03/2021 1:[address] HEAD/BRAIN WITHOUT IV CONTRAST: Clinical Statement: Syncope, headaches Comparison: None TECHNIQUE: 2.5 mm thick axial images were obtained through the posterior fossa with 5 mm thick axial images obtained of the remaining brain FINDINGS: The ventricles, sulci and cisterns show no acute abnormalities. There is mild age-related atrophy. There is decreased attenuation throughout the periventricular and subcortical white matter compatible with moderate remote ischemic change. There are areas of remote ischemic change in the basal ganglia. There is a remote lacunar infarction in the left cerebellar hemisphere. No acute infarctions are identified. Small areas of acute ischemia could be masked by the diffuse areas of decreased attenuation. There is no abnormal extra-axial fluid collection, intracranial hemorrhage, mass or midline shift. The figueroa-white matter differentiation is preserved. There is mild mucosal thickening and aerated secretions in the sphenoid sinus on the right. The remaining paranasal sinuses and mastoid air cells are unremarkable. There is bilateral cerumen. Aerated. The orbits are unremarkable. The calvarium is intact. IMPRESSION: 1. No acute abnormalities. 2. Findings compatible with moderate areas of remote ischemic change and remote lacunar infarction in the left cerebellar hemisphere. If concern remains for an acute event, a short-term follow-up CT or MRI would be suggested. Dictated by Upholstery Repairer: Amie Chaudhry DO I, Lionel Celis MD FACR, have supervised the procedure and/or image review, and agree with the above interpretation and report. ---- Electronic Signature on File ---- Signed By: Lionel Celis MD FACR [email or web address] Dictated: 01/03/2021 2:23 PM Signed: 01/03/2021 2:36 PM Reported By: LIONEL CELIS M.D. Signed By: LIONEL CELIS M.D. [facility] Jorge Linaresthor 01-03-2021 Electrocardiogram Procedure Date and Time: 01/03/21 1301 Test Reason : STAT Blood Pressure : / mmHG Vent. Rate : 066 BPM Atrial Rate : 066 BPM P-R Int : 166 ms QRS Dur : 080 ms QT Int : 434 ms P-R-T Axes : 033 -21 021 degrees QTc Int : 454 ms Normal sinus rhythm Poor anterior R-wave progression Normal ECG When compared with ECG of 26-JAN-2019 12:10, No significant change was found Confirmed by JASMIN MENDIOLA A. ([id number]) on 01/03/2021 3:25:00 PM Referred By: Melvin Herbert Confirmed By:Derian MENDIOLA M.D.FACC [facility] DDandT: 01/03/21 1301 TDandT: [facility] PATIENT NAME: DAMARI GLASS [facility] [address] MEDICAL REC #: [id number] [place] [address] ADMIT DATE: DISCHARGE DATE: ATTENDING PHY: Nicholas Catherine,Emergency Physi ELECTROCARDIOGRAM REPORT CLB cc: [facility] PATIENT NAME: DAMARI GLASS [facility] [address] MEDICAL REC #: [id number] [place] [address] ADMIT DATE: DISCHARGE DATE: ATTENDING MARGYY: Nicholas Catherine,Emergency Physi ELECTROCARDIOGRAM REPORT Normal [facility] 01-03-2021 EMERGENCY PHYSICIAN REPORT This is a preliminary report only, as the practitioner review and authentication has not occurred. Normal [facility] ER PHYSICIAN ASSESSMENT RECORDS : FlexChartData Event Time: 01/03/2021 14:35 Status: Signed [facility] Damari Glass [[id number]] Attending Physician 70 / F / 1950 Chart (V2b) Chart created at 01/03/2021 14:27 by Melvin Herbert Chart closed at 01/03/2021 17:08 Entry in Emergency Department at 01/03/2021 12:42, departure at 01/03/2021 17:16 Patient Name: Damari Glass Record Number: [id number] Date: 01/03/2021 14:27 Entered Department at: 01/03/2021 12:42 Patient Seen at: 01/03/2021 13:01 Historian: Patient PCP: LAYNE Chief Complaint:EMS STATES CALLED FOR UNRESPONSIVE PT. WITH DECREASED BP WHILE AT PAIN MANAGEMENT. PT ALERT AND ORIENTED X4. CO UPPER ABD PAIN AND VOMITING X1. Triage Note reviewed and Initial Vital Signs reviewed. Temperature: 97.5 F (36.4 C). Pulse: 66. Respiratory Rate: 18. Blood-pressure: 101/58. Oxygen Saturation: 92%. History of Present Illness: 70-Year-old female presents to the emergency department secondary to syncope. Patient states she was feeling lightheaded when she woke up this morning. She went to her pain management appointment where she received a lidocaine infusion, states she became extremely weak and lightheaded during this infusion and [facility] PATIENT NAME: DAMARI GLASS [address] [facility] [address] MEDICAL REC #: [id number] [place] [address] EMERGENCY DEPARTMENT REPORT EMERGENCY DEPARTMENT PHYSICIAN ultimately had an episode of syncope. EMS was called and patient transported to the emergency department. She has chronic back pain issues secondary to fibromyalgia which she states she receives this lidocaine infusion for. She does not have any chest pain or shortness of breath, no abdominal pain, she states she has a very mild headache but denies any other acute complaints at this time. She states she has had 1 prior episode of syncope but was not assessed at that time. Review of Systems. All other systems reviewed and negative.. Past History, Medications, Allergies, Social History and Family History reviewed in nurses note. Medications: Reviewed RN Note. CYMBALTA 60MG DELAYED-RELEASE CAPSULE - PO BID, NORCO 325MG-7.5MG TABLET - PO TID PRN, GABAPENTIN 400MG PO 3TABS QHS, Per patient list - 01/03/21 Allergies: Reviewed RN Note No Known Allergies Social History: Reviewed RN Note. Family History: Reviewed RN Note Physical Examination: General: Alert; Oriented x 3. NAD HEENT: Head: Atraumatic. Eyes: PERRL; EOMI. Nose: Normal inspection. Oropharynx / Throat: Normal Pharynx, Moist mucous membranes. Neck: Supple Respiratory: No Resp Distress and Normal Breath Sounds Cardio-Vascular: No murmur, No rub and RRR Abdomen: Normal Bowel Sounds, No Organomegaly, Non-tender and Soft; negative for Guarding; Non-distended. Back: Diffuse paraspinal tenderness Extremity: No edema and Normal Equal pulses; Cap refill andlt; 2 sec. 3/5 strength of the bilateral lower extremities, 4/5 strength of bilateral upper extremities. Sensation intact throughout. Patient states this is her baseline strength. Neurological: Cranial Nerves 2-12 Normal and Speech Normal Skin: No Petechiae, Warm and Dry [facility] PATIENT NAME: DAMARI GLASS [address] [facility] [address] MEDICAL REC #: [id number] [place] [address] EMERGENCY DEPARTMENT REPORT EMERGENCY DEPARTMENT PHYSICIAN CBC W/DIFF, information as of 01/03/2021, 1:27 pm 89.1 / 14.9 / 13.5* andgt;------andlt; 296 / 44.2 / N:76.8* BASO ABS: 0.10 K/Cu Mm; BASOPHIL %: 0.4 %; EOS ABS: 0.00 K/Cu Mm; EOSINOPHIL %: 0.1 %; IMMATR GRAN ABS: 0.10 K/Cu Mm; IMMATURE GRAN %: 0.8 %; LYMPH %: 14.4 %; LYMPH ABS: 1.90 K/Cu Mm; MCHC: 33.7 Gm/Dl; MONO ABS: 1.00 K/Cu Mm; MONOCYTE %: 7.5 %; MPV: 9.1; NEUTROPHIL ABS: 10.40 K/Cu Mm; NRBC: 0.0 %; RBC: 4.96 M/Cu Mm; RDW: 13.7 BMP, information as of 01/03/2021, 1:01 pm 142 --------+--------+-- ------andlt; 115* Anion Gap = 8 4.3 BUN/CREA: 16; CALCIUM TOTAL: 9.5 Mg/Dl TROPONIN I, information as of 01/03/2021, 1:27 pm TROPONIN I: Less Than 2.5 Pg/Ml LIVER, information as of 01/03/2021, 1:01 pm A/G RATIO: 1.1; ALBUMIN: 3.6 Gm/Dl; ALK PHOS: 102 U/L; BILI DIRECT: 0.1 Mg/Dl; BILI TOTAL: 0.40 Mg/Dl; GLOBULIN: 3.2 Gm/Dl; SGOT (AST): 24 U/L; SGPT (ALT): 17 U/L; TP: 6.8 Gm/Dl [id number], information as of 01/03/2021, 1:01 pm [id number]: Neg Cardiogram: Interpreted by me. Interpretation: Normal sinus rhythm, rate of 66, left axis deviation, delayed R wave progression, no acute ST elevation, QTc 454. No evidence of WPW or Brugada. Comparison: No old Cardiogram available for comparison Monitor / Rhythm Strip: NSR Imaging Study Obtained: CT (HEAD/BRAIN) WO CON (more content not included)... [facility] IF AMER 47 Normal [facility] Comment on above: Order Comment: Galina sMagy M Performed By: #### L 500.45299, L500.62408, L500.98864 #### [facility] [place] [address] IF non-AFR AMER 39 Normal [facility] Comment on above: Order Comment: Galina s: M Performed By: #### L 500.74836, L500.62451, L500.05199 #### [facility] [address] [place] [address] LIVERon 01-03-2021 Albumin [Mass/Vol] 3.6 g/dL Normal 3.2-5.0 [facility] Comment on above: Order Comment: Campu s: M Performed By: #### L 500.80871, L500.62425, L500.22430 #### [facility] [address] [place] [address] Albumin/Globulin [Mass ratio] 1.1 {ratio} Normal 0.8-2.0 [facility] Comment on above: Order Comment: Campu s: M Performed By: #### L 500.90224, L500.18629, L500.72042 #### [facility] [address] [place] [address] ALK PHOS 102 U/L Normal 45-117 [facility] Comment on above: Order Comment: Campu s: M Performed By: #### L 500.77115, L500.01977, L500.48574 #### [facility] [address] [place] [address] ALT [Catalytic activity/Vol] 17 U/L Normal 13-61 [facility] Comment on above: Order Comment: Campu s: M Result Comment: RESU LTS MAY BE FALSELY DEPRESSED AFTER THE ADMINISTRATION OF SULFASALAZINE AND/OR SULFAPYRIDINE. Performed By: #### L 500.66776, L500.82644, L500.36570 #### [facility] [address] [place], [place] [address] AST [Catalytic activity/Vol] 24 U/L Normal 8-34 [facility] Comment on above: Order Comment: Campu s: M Result Comment: RESU LTS MAY BE FALSELY DEPRESSED AFTER THE ADMINISTRATION OF SULFASALAZINE AND/OR SULFAPYRIDINE. Performed By: #### L 500.43193, L500.96390, L500.62586 #### [facility] [place] [address] BILI DIRECT 0.1 MG/DL Normal 0.00-0.36 [facility] Comment on above: Order Comment: Campu s: M Result Comment: NOTE NEW NORMAL RANGE DUE TO REAGENT CHANGE Performed By: #### L 500.95737, L500.69327, L500.34879 #### [facility] [address] [place], [place] [address] BILI TOTAL 0.40 MG/DL Normal 0.2-1.0 [facility] Comment on above: Order Comment: Campu s: M Performed By: #### L 500.99176, L500.49182, L500.51519 #### [facility] [address] [place] [address] Globulin (S) [Mass/Vol] 3.2 g/dL Normal 2.2-4.2 [facility] Comment on above: Order Comment: Campu s: M Performed By: #### L 500.56938, L500.45922, L500.14264 #### [facility] [address] [place] [address] Protein [Mass/Vol] 6.8 g/dL Normal 6.0-8.5 [facility] Comment on above: Order Comment: Campu s: M Performed By: #### L 500.56133, L500.72888, L500.85841 #### [facility] [address] [place], [place] [address] [id number] 01-03-2021 SARS-CoV-2 (COVID-19) RNA BARAK+probe Ql (Unsp spec) Negative Invalid Interpretation Code Negative [facility] Comment on above: Order Comment: Campu s: M Result Comment: RESU LTS CALLED TO AND READ BACK BY CORBY UA/ED AT 1535 01/03/21 BY VERENICE ARREDONDO Negative results do not preclude SARS-CoV-2 infection and should not be used as the sole basis for treatment or other patient management decisions. Negative results must be combined with clinical observation, patient history, and epidemiological information. This test was performed by PCR. Performed By: #### L 770.82489 #### [facility] [address] [place] [address] TROPONIN Ion 01-03-2021 Troponin I.cardiac [Mass/Vol] 2.5 ng/mL Normal 0-34 [facility] Comment on above: Order Comment: Galina s: M Result Comment: NOTE NEW NORMAL RANGE DUE TO REAGENT CHANGE This assay uses different antibodies than our current assay, and assays, even by the same hris administrator may recognize different regions of the antibody and cannot be used interchangeably. Expect results of this assay to run higher than the previous assay. Performed By: #### L 550.68090 #### [facility] [address] [place] [address] Procedures Date Procedure Procedure Detail Performing Clinician Start: 01-03-2021 Ecg routine ecg w/le ast 12 lds i&r only Progress note 02-21-2021 Note Date & Type Note Facility 02-21-2021 Note HNO ID: [id number] Author: Hoang Melvin APRN.NAILHEAD OPERATOR Service: ? Author Type: Nurse Practitioner Type: Progress Notes Filed: 02/21/2021 11:45 AM Note Text: Subjective HPI Nontoxic appearing female presents urgent care chief complaint left second digit laceration. Duration of symptoms greater than 3 days. Patient states she was opening a box with a box worker when she cut her index finger left [...] Take 1 capsule by mouth once daily. vyimscerglz-A5-Gcnzkdopw serr (OSTEO BI-FLEX, 5-LOXIN,) 1,500-400-100 mg-unit-mg tab Take 1 tablet by mouth once daily. LIDOCAINE (PF) 100 MG/ML (10 %) IV Not sure of dose, IV lidocaine infusion once monthly FAMILY HISTORY Problem Relation Age of Onset - Heart Mother [place] - Cancer Father Lung - Heart Sister [place], stents Social History Tobacco Use - Smoking [...] verbalized understanding agrees with plan of care. Hoang Melvin APRN.[facility] Summary Purpose Family History No Family History Records FoundNo Family History Records Found Advance Directives No Advanced Directives Records FoundNo Advanced Directives Records Found Additional Source Comments INFORMATION SOURCE (unrecogn ized section and content) DATE CREATED AUTHOR 08/24/2021 [facility] DATE CREATED AUTHOR AUTHOR'S SHADIA GARZA 08/28/2021 [facility] Yandy Patel FOR RECORDS PERTAINING TO PATIENTS WHO [...] BE BASED ON THE PRIMARY CLINICAL RECORDS. [facility] [employer] [facility] Center. provides no warranty or guarantee of the accuracy or completeness of information in this document.
== END | disposition home or self-care (01) ==
LOC: CT 16:52
PROVIDERS: PCP Family Medicine Geriatric Medicine; Referring Provider Family Medicine Geriatric Medicine; Visit Provider Family Medicine Geriatric Medicine
DX: I26.92 Saddle embolus of pulmonary artery without acute cor pulmonale (principal); I82.402 Acute embolism and thrombosis of unspecified deep veins of left lower extremity
CPT/HCPCS: 71275; Q9967

== ENCOUNTER → 2024-05-12 | Outpatient (CLI) | payer MEDICARE, SELFPAY ==
--- NOTE | 2024-05-12 10:51 | VDLE_ITS ---
Reason For Study: HX LLE DVT RIGHT LEFT GSV is normal. GSV is normal. CFV is compressible, spontaneous, phasic, CFV is compressible, spontaneous, phasic, competent and demonstrates normal competent, and demonstrates normal augmentation. augmentation. FV is compressible, spontaneous, phasic, FV is compressible, spontaneous, phasic, competent and demonstrates normal competent and demonstrates normal augmentation. augmentation. POP V is compressible, spontaneous, phasic, T/P Trunk is compressible. competent and demonstrates normal POP V is compressible, spontaneous, and augmentation. phasic. T/P Trunk is compressible. Acute deep vein thrombosis is noted in the PTV is compressible. PTV. It is dilated and NONCOMPRESSIBLE. RT PerV is compressible. LT PerV is compressible. Procedure Anechoic nonvascularized area noted in Lt Pop This is a venous duplex using B-mode, color Fossa measuring approximately 5.93cm x flow and spectral Doppler. 1.45cm. Exam performed in department. The exam was diagnostic. A preliminary report was called and/or faxed to Dr. Bowman office. VL/Venous Duplex US - Eben Extrem Interpretation Summary Acute deep vein thrombosis is noted in the left posterior tibial vein. The yoon tonya of the left lower extremity deep venous system is patent and compressible. Deep veins of th e right lower extremity are patent and compressible segmentally. There is no evidence of righ t lower extremity deep vein thrombosis. Valvular competence appears intact within the proximal de ep venous systems bilaterally. The great saphenous veins appear bilaterally patent and compressib le segmentally. A non-vascular, hypoechoic structure is noted in the left popliteal space, measur ing 5.93 cm x 1.45 cm. This probably represents a popliteal cyst. Clinical correlation is advised. Ordering Physician: Ed Bowman Chi Referring Physician: Ed Bowman Chi Performed By: Vic Galvin RVT
== END | disposition home or self-care (01) ==
LOC: CVS 10:49
PROVIDERS: PCP Family Medicine Geriatric Medicine; Referring Provider Family Medicine Geriatric Medicine; Visit Provider Family Medicine Geriatric Medicine
DX: M79.89 Other specified soft tissue disorders (principal); I82.402 Acute embolism and thrombosis of unspecified deep veins of left lower extremity
CPT/HCPCS: 93970

== ENCOUNTER → 2024-05-16 | Outpatient (CLI) | payer MEDICARE, SELFPAY | END | disposition home or self-care (01) | LOC: POLAB3 13:39 | PROVIDERS: PCP Family Medicine Geriatric Medicine; Visit Provider Family Medicine Geriatric Medicine | DX: N39.0 Urinary tract infection, site not specified (principal) | CPT/HCPCS: 87086; 87088; 87186 ==

== ENCOUNTER 2024-06-04 18:29 | Emergency (ER) | payer MEDICARE, SELFPAY ==
[2024-06-04 18:30] VITALS: BP 173/95; PULSE 88; RESP 18; TEMP 36.8; O2SAT 94; BMI 36.6
--- NOTE | 2024-06-04 18:55 | CT_ITS ---
EXAM: CT SPINE - CERVICAL WITHOUT IV REASON FOR EXAM: Female, 73 years old. NECK PAIN Trauma HISTORY: NECK PAIN Trauma Individualized dose optimization techniques were used for this CT. TECHNIQUE: Multiplanar images were obtained of the cervical spine. IV contrast was not utilized. COMPARISON: None. FINDINGS: The vertebral bodies do maintain their height. The odontoid process is intact. No pre-vertebral soft tissue swelling is seen. The intravertebral disc height is lost. There are scattered lymph nodes in the neck. There are degenerative changes of the osseous structures. There is bilateral facet arthropathy. There are scattered levels of foraminal stenosis. There are vascular calcifications. CT/Spine Cervical without Contras IMPRESSION: Degenerative changes of the cervical spine. There are no acute findings. Electronically Signed: Luis Fernando Ortiz MD at 20:19 EST ,
--- NOTE | 2024-06-04 18:55 | CT_ITS ---
STUDY: CT BRAIN WITHOUT CONTRAST REASON FOR EXAM: Female, 73 years old. Head injury on anticoagulation Individualized dose optimization techniques were used for this CT. TECHNIQUE: Transaxial CT imaging of the brain was performed without administration of intravenous contrast material. COMPARISON: January 30, 2023 FINDINGS: There are calcifications noted in the distal vertebral arteries. There are calcifications noted in the cavernous carotid arteries. This is consistent for atherosclerotic disease. Normal calvarium. Normal soft tissues. There is mild cerebral atrophy with widening of the extra-axial spaces and ventricular dilatation. There are areas of decreased attenuation within the white matter tracts of the supratentorial brain, consistent with microvascular disease changes. Normal basal ganglia and thalami. Normal brainstem. There is mild cerebellar atrophy. There is no intracranial hemorrhage. There are no findings of an acute ischemic infarction. Normal visualized paranasal sinuses. ASPECTS Score for Acute Strokes: 04/20 CT/Brain/Head without Contrast IMPRESSION: There are no acute findings. Chronic involutional changes of the brain. Electronically Signed: Luis Fernando Ortiz MD at 20:19 EST Reading Location ID and State: [facility] / [place] , Service support ,
[2024-06-04] MEDS: Ondansetron ODT 4 MG Tablet PO ×2 (18:59→20:26)
--- NOTE | 2024-06-04 19:01 | EDS_ITS ---
HPI HPI - Fall History of Present Illness Chief Complaint: Fall Narrative Narrative: 73-year-old female past medical history of pulmonary emboli/DVT in left lower extremity, on Eliquis for anticoagulation presents status post fall at home. She states she was getting get her service dog, and went to picker tender the leash after she had stood up from a chair. She states that as she was walking, her left leg gave out on her. She fell towards the left and hit the left side of her head against the glass door of the cabinet. She was unable to get up immediately, then the piece of 2 x 4 had fallen from the countertop area where the television sits and hit her in the left side of the head as well. She denies loss of consciousness, but complains of pain and swelling on the left side of her head, and left-sided neck pain. While she was unable to get up, she was able to crawl. She had her phone with her so she called EMS. She states when they sat her up and got her onto the cot, whenever she moves she becomes nauseated. [facility] Medical History Bilateral pulmonary embolism Depression History of kidney stones Acute calculous cholecystitis Laceration of left index finger Pulmonary emboli Hypoxia Elevated troponin Pulmonary embolism and infarction Fracture of left foot Episode of syncope Fibromyalgia Anxiety Home Medications ?Medication ?Instructions ?Recorded ?Last Taken ?Type hydrocodone 7.5 mg-acetaminophen 1 tab PO TID PRN PRN pain 12/15/23 03/12/24 10:00 History 325 mg tablet levothyroxine 25 mcg tablet 25 mcg PO DAILY thyroid 12/15/23 03/11/24 History cholecalciferol (vitamin D3) 25 25 mcg PO DAILY supplement 02/23/24 03/06/24 History mcg (1,000 unit) capsule omeprazole 40 mg capsule,delayed 40 mg PO QDAY unknown #30 caps 03/02/24 03/11/24 Rx release apixaban 5 mg (74 tabs) tablets in 5 mg PO BID PE #74 tabs 03/16/24 Unknown Rx a dose pack (Eliquis DVT-PE Treat 30D Start) tolterodine 2 mg tablet 4 mg PO BID over active bladder 05/08/24 Unknown History Allergy/AdvReac Type Severity Reaction Status Date / Time No Known Allergies Allergy Verified 06/04/24 18:30 Family History Mother Myocardial infarction Sister Diabetes Cancer Sister No problems noted. Father Cancer Surgical History S/P tonsillectomy S/P appendectomy S/P excision of ganglion cyst History of partial hysterectomy History of cholecystectomy Social History Smoking Status: Never smoker alcohol intake: never substance use type: does not use ROS ROS ED ROS Narrative Review of systems positive for closed head injury. Left-sided scalp swelling and left-sided neck pain. Denies other injury. No loss of consciousness. Positive nausea with movement. No vomiting. Denies other injury. EXAM Physical Exam Narrative Exam Narrative: GCS 15. ABCs intact. Mild tenderness to palpation left parietal scalp, no crepitance. Neck soft and supple with mild tenderness to palpation left paraspinal muscles. No vertebral point tenderness or bony step-off. Full range of motion of head. Flexion extension bilateral lower extremities intact at hips and knees. Pelvis stable. Const Vital Signs: 06/04/24 18:30 06/04/24 18:44 Temperature 98.2 F Temperature Source Oral Pulse Rate 88 Respiratory Rate 18 Respiratory Effort Normal Respiratory Depth Normal Respiratory Pattern Normal Blood Pressure 173/95 H Blood Pressure Mean 121 Pulse Ox 94 Oxygen Delivery Method Room Air Room Air MDM MDM MDM Narrative Medical decision making narrative: Differential diagnosis includes but not limited to closed head injury versus intracranial hemorrhage versus skull fracture versus cervical spine fracture versus strain/sprain. Patient was given a Zofran for her nausea with movement. CT of the brain and cervical spine were obtained given she is a head injury on anticoagulation. She had stated that whenever she falls if she hits her head since she is on a blood thinner that she needs to be evaluated in the emergency department. I reviewed the radiology reports of the CT of the brain and there are chronic involutional changes but no acute findings. No hemorrhage or skull fracture. I also reviewed the radiology report of the CT of the cervical spine which shows degenerative changes but no acute fracture. Patient complained of headache and continued nausea so she was given 1 additional Zofran and Tylenol 650 mg orally. I do feel that these could be signs of a mild concussion. As there is no evidence of acute hemorrhage I feel she can be discharged to follow-up. She states she has appointments with her physicians all this week. She is motivated for discharge. Return instructions to the emergency department were reviewed. Disposition is discharged home in stable condition. History & Record Review Discussion w/independent historian: Patient Radiography Diagnostic Testing: Clinical Impression(s) from Imaging Studies Brain CT 06/04/24 18:55 IMPRESSION: There are no acute findings. Chronic involutional changes of the brain. Electronically Signed: Luis Fernando Ortiz MD at 20:19 EST , Cervical Spine CT 06/04/24 18:55 IMPRESSION: Degenerative changes of the cervical spine. There are no acute findings. Electronically Signed: Luis Fernando Ortiz MD at 20:19 EST , Discharge Plan Triage Chief Complaint: Fall ED Provider: Chance Nieto Dx/Rx/DC Orders Clinical Impression: Fall, Closed head injury, Neck strain Instructions: ED Head Injury (Adult), ED Neck Sprain or Strain, ED Fall Prevention Prescriptions: No Action cholecalciferol (vitamin D3) 25 mcg (1,000 unit) capsule 25 mcg PO DAILY Elifany DVT-PE Treat 30D Start 5 mg (74 tabs) tablets,dose pack 5 mg PO BID Qty: 74 0RF Rx Instructions: 10 mg twice daily for 1 week to 03/22/2024 and then transition to 5 mg twice daily on 03/23/2024 at 10 AM. hydrocodone-acetaminophen 7.5-325 mg tablet 1 tab PO TID PRN PRN (Reason: pain) levothyroxine 25 mcg tablet 25 mcg PO DAILY tolterodine 2 mg tablet 4 mg PO BID Rx Instructions: per pt dose recently increased to BID omeprazole 40 mg capsule,delayed release(DR/EC) 40 mg PO QDAY Qty: 30 3RF Rx Instructions: swallow whole; do not crush, chew, dissolve, cut, break--take in PM or 2 hrs after levothyroxine Primary Care Provider: Ed Bowman Chi Referrals: Ed Bowman Chi, MD [Primary Care Provider] - 3-5 Days if not improving Activity Restrictions/Additional Instructions: Continue [id number] medications as needed for pain. Return with new or worsening symptoms. Print Language: Irish Disposition Disposition: Home, Self Care
[2024-06-04] MEDS: Acetaminophen 325 MG Tablet 650 MG PO (20:26)
[2024-06-04 20:27] VITALS: BP 133/77; PULSE 87; RESP 18; TEMP 36.7; O2SAT 99
== END 2024-06-04 20:28 | disposition home or self-care (01) ==
PROVIDERS: Emergency Provider Emergency Medicine; PCP Family Medicine Geriatric Medicine; Visit Provider Emergency Medicine
DX: S09.90XA Unspecified injury of head, initial encounter (principal); S16.1XXA Strain of muscle, fascia and tendon at neck level, initial encounter; R11.0 Nausea; W01.190A Fall on same level from slipping, tripping and stumbling with subsequent striking against furniture, initial encounter; Y92.009 Unspecified place in unspecified non-institutional (private) residence as the place of occurrence of the external cause; M79.7 Fibromyalgia; Z90.49 Acquired absence of other specified parts of digestive tract; Z87.19 Personal history of other diseases of the digestive system; Z79.01 Long term (current) use of anticoagulants; Z86.711 Personal history of pulmonary embolism; Z86.718 Personal history of other venous thrombosis and embolism; Z79.899 Other long term (current) drug therapy
CPT/HCPCS: 70450; 72125; 99285

== ENCOUNTER → 2024-06-08 | Outpatient (CLI) | payer MEDICARE, SELFPAY ==
[2024-06-13 15:09] LABS: Calprotectin, Stool 11 ug/g (0-120)
== END | disposition home or self-care (01) ==
PROVIDERS: PCP Family Medicine Geriatric Medicine; Referring Provider Internal Medicine Medical Oncology; Visit Provider Internal Medicine Medical Oncology
DX: R19.5 Other fecal abnormalities (principal); K58.9 Irritable bowel syndrome, unspecified
CPT/HCPCS: 83630; 83993; 87177; 87209; 87493

== ENCOUNTER → 2024-06-13 | Outpatient (CLI) | payer MEDICARE, SELFPAY ==
[2024-06-13 12:15] LABS: Absolute Lymphocyte Count 2.32 X10^3/uL (0.83-4.51); Absolute Neutrophil Count 4.8 X10^3/uL (2.0-7.7); Basophil# 0.06 X10^3/uL; Basophil% 0.7 % (0-1); Eosinophil# 0.13 X10^3/uL; Eosinophils% 1.6 % (0-5); Hematocrit 43.3 % (37-47); Hemoglobin 13.9 g/dL (12.0-15.0); Lymphocyte # 2.32 X10^3/ul (0.83-4.51); Lymphocyte % 28.5 % (19-41); Mean Corp Hgb Conc 32.1 g/dL (32-36); Mean Corpuscular Volume 90.4 fL (81-99); Mean Platelet Vol. 10.1 fl (6.2-12.0); Monocyte# 0.77 X10^3/uL; Monocyte% 9.4 % (0-10); NRBC Flagged by Analyzer 0 % (0-5); Neutrophil % 58.9 % (47-70); Platelet Count 320 K/mm3 (150-450); RBC Distribution Width CV 13.5 % (11.6-14.6); RBC Distribution Width SD 44.5 fl (35.1-43.9); Red Blood Count 4.79 M/mm3 (4.2-5.4); White Blood Count 8.2 K/mm3 (4.4-11.0)
[2024-06-13 12:36] LABS: Vitamin D,25 Hydroxy 45.7 ng/mL
--- NOTE | 2024-06-13 12:40 | RAD_ITS ---
STUDY: X-RAY - LEFT KNEE REASON FOR EXAM: Female, 73 years old. Pain and stiffness TECHNIQUE: 4 view(s) of the knee. COMPARISON: None. FINDINGS: Normal visualized distal femur. Normal visualized proximal tibia and fibula. Normal proximal tibiofibular articulation. There is moderate degenerative arthrosis of the medial femorotibial compartment with moderate joint space narrowing. There is mild degenerative arthrosis of the lateral femorotibial compartment. There is moderate degenerative arthrosis of the patellofemoral articulation. The soft tissue structures are unremarkable. RAD/Knee 3 Views IMPRESSION: Degenerative arthrosis. No demonstrated fracture Degenerative spurs on the distal medial femur and proximal medial tibia Electronically Signed: Logan Valladares MD at 18:04 EST ,
[2024-06-13 12:56] LABS: AST(SGOT) 20 U/L (15-37); Alanine Aminotransfer ALT/SGPT 18 U/L (13-56); Albumin, Serum 3.4 g/dL (3.2-5.0); Alkaline Phosphatase 85 U/L (45-117); Anion Gap 5 (5-15); BUN 13 mg/dL (7-18); BUN/Creat Ratio 16.7 RATIO (10-20); Calcium,Total 9.4 mg/dL (8.5-10.1); Chloride 111 mmol/L (98-107); Cholesterol 215 mg/dL (200); Creatinine, Serum 0.78 mg/dL (0.55-1.02); EST Glomerular Filtration Rate 76 mL/min (>60); Est Glom Filt Rate - Afr Amer 92 mL/min (>60); Globulin 3.4 g/dL (2.2-4.2); Glucose 109 mg/dL (74-106); High Density Lipoprotein 38 mg/dL; Potassium 3.5 mmol/L (3.5-5.1); Protein, Total 6.8 g/dL (6.4-8.2); Sodium Level 142 mmol/L (136-145); Triglycerides 179 mg/dL; Very Low Density Lipoprotein 36 mg/dL (5-40)
== END | disposition home or self-care (01) ==
PROVIDERS: PCP Family Medicine Geriatric Medicine; Referring Provider Family Medicine Geriatric Medicine; Visit Provider Family Medicine Geriatric Medicine
DX: M25.562 Pain in left knee (principal); K92.2 Gastrointestinal hemorrhage, unspecified; R53.83 Other fatigue; E55.9 Vitamin D deficiency, unspecified; E78.5 Hyperlipidemia, unspecified
CPT/HCPCS: 36415; 73562; 80053; 80061; 82306; 84443; 85025

== ENCOUNTER → 2024-06-30 | Outpatient (CLI) | payer MEDICARE, SELFPAY ==
--- NOTE | 2024-06-30 09:45 | VDLE_ITS ---
Reason For Study: Left leg swelling RIGHT LEFT CFV is compressible, spontaneous, phasic, GSV is normal. competent and demonstrates normal CFV is compressible, spontaneous, phasic, augmentation. competent, and demonstrates normal Procedure augmentation. This is a venous duplex using B-mode, color FV is compressible, spontaneous, phasic, flow and spectral Doppler. competent and demonstrates normal Exam performed in department. augmentation. Compared to 05/12/2024. POP V is compressible, spontaneous, phasic, competent and demonstrates normal augmentation. T/P Trunk is compressible. LT PerV is compressible. PTV is partially compressible with mininal flow noted. No longer dilated. Anechoic nonvascularized area noted in Lt Pop Fossa measuring approximately 1.14 x 2.87 cm. VL/Venous Duplex US, Unilateral Interpretation Summary Deep veins of the left lower extremity are patent and compressible segmentally. There is no evidence of left lower extremity deep vein thrombosis. The left great saphenous vein zahraa ears patent and compressible segmentally. Anechoic nonvascularized area noted in left popliteal fossa measuring approxima tely 1.14 x 2.87 cm. Ordering Physician: Roxana Johns Referring Physician: Ed Bowman Chi Performed By: Roseline Herr RVT
== END | disposition home or self-care (01) ==
LOC: CVS 09:45
PROVIDERS: PCP Family Medicine Geriatric Medicine; Referring Provider Physician Assistant; Visit Provider Physician Assistant
DX: M79.89 Other specified soft tissue disorders (principal); I82.409 Acute embolism and thrombosis of unspecified deep veins of unspecified lower extremity
CPT/HCPCS: 93971

== ENCOUNTER → 2024-09-12 | Outpatient (CLI) | payer MEDICARE, SELFPAY ==
[2024-09-12 13:06] LABS: Absolute Lymphocyte Count 2.69 X10^3/uL (0.83-4.51); Absolute Neutrophil Count 6.8 X10^3/uL (2.0-7.7); Basophil# 0.09 X10^3/uL; Basophil% 0.8 % (0-1); Eosinophil# 0.06 X10^3/uL; Eosinophils% 0.6 % (0-5); Hemoglobin 14.9 g/dL (12.0-15.0); Lymphocyte # 2.69 X10^3/ul (0.83-4.51); Mean Corp Hgb Conc 34.7 g/dL (32-36); Mean Corpuscular Hgb 30.8 pg (27.0-32.0); Mean Corpuscular Volume 88.8 fL (81-99); Mean Platelet Vol. 9.5 fl (6.2-12.0); Monocyte% 8.4 % (0-10); NRBC Flagged by Analyzer 0 % (0-5); Neutrophil # 6.84 X10^3/uL (2.7-7.7); Neutrophil % 63.7 % (47-70); Platelet Count 291 K/mm3 (150-450); RBC Distribution Width CV 14.6 % (11.6-14.6); RBC Distribution Width SD 47.6 fl (35.1-43.9); Red Blood Count 4.84 M/mm3 (4.2-5.4); White Blood Count 10.7 K/mm3 (4.4-11.0)
[2024-09-12 13:36] LABS: ALB/GLOB Ratio 1.4 RATIO (0.9-2.4); AST(SGOT) 22 U/L (<=31); Alanine Aminotransfer ALT/SGPT 16 U/L (<=34); Albumin, Serum 3.8 g/dL (3.4-4.8); Alkaline Phosphatase 85 U/L (35-104); Anion Gap 15 (5-15); BUN 17 mg/dL (4-19); Calcium,Total 9.3 mg/dL (7.6-11.0); Carbon Dioxide 21.2 mmol/L (21.0-32.0); Chloride 107 mmol/L (98-108); Cholesterol 229 mg/dL (<=200); Creatinine, Serum 0.76 mg/dL (0.70-1.20); EST Glomerular Filtration Rate 82 (>60); Globulin 2.8 g/dL (2.2-4.2); Glucose 145 mg/dL (70-99); High Density Lipoprotein 51 mg/dL; Low Density Lipoprotein Calc. 136 mg/dL; Potassium 3.2 mmol/L (3.3-5.1); Protein, Total 6.6 g/dL (5.9-8.4); Sodium Level 143 mmol/L (133-145); Triglycerides 210 mg/dL; Very Low Density Lipoprotein 42 mg/dL (5-40); Vitamin D,25 Hydroxy 35.5 ng/mL (30-100); cholesterol:hdl ratio screen 4.53
[2024-09-12 19:14] LABS: Hemoglobin A1c 5.5 % (<=5.6)
== END | disposition home or self-care (01) ==
LOC: POLAB3 12:04
PROVIDERS: PCP Family Medicine Geriatric Medicine; Visit Provider Family Medicine Geriatric Medicine
DX: R73.09 Other abnormal glucose (principal); R53.83 Other fatigue; E55.9 Vitamin D deficiency, unspecified; E78.5 Hyperlipidemia, unspecified
CPT/HCPCS: 36415; 80053; 80061; 82306; 83036; 84443; 85025

== ENCOUNTER 2024-09-16 11:50 | Emergency (ER) | payer MEDICARE, SELFPAY ==
[2024-09-16 11:50] VITALS: BP 138/90; PULSE 85; RESP 16; TEMP 36.4; O2SAT 96
[2024-09-16 11:53] VITALS: BMI 34.7
--- NOTE | 2024-09-16 12:03 | CT_ITS ---
EXAM: BRAIN/HEAD WITHOUT CONTRAST CLINICAL HISTORY: 74-year-old female, head injury. COMPARISON: CT head 06/04/2024. TECHNIQUE: Routine CT imaging of the head without IV contrast. Additional multiplanar reformats were obtained. Dose reduction techniques were used including intermediate exposure control (AEC),iterative reconstruction technique, and/or mA and/or KV dose adjustments based on patient's size. FINDINGS: Stable mild generalized cerebral volume loss with concordant prominence of the ventricles and subarachnoid spaces. Moderate patchy and confluent supratentorial white matter hypodensities. 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 The figueroa-white matter interfaces are otherwise maintained. No acute intracranial hemorrhage or herniation. The orbits, visualized paranasal sinuses and mastoids are unremarkable. No acute fracture or scalp hematoma. CT/Brain/Head without Contrast IMPRESSION: No acute intracranial finding. Stable findings of chronic microvascular ischem ic changes and age-related changes. Reading Location: [id number]
--- NOTE | 2024-09-16 12:03 | EX.ED.GENINJ ---
HPI History of Present Illness Chief Complaint: Head Injury Detail of Chief Complaint: Head injury Informant: patient Narrative Narrative: Patient presents to the emergency department with complaint of a head injury that occurred yesterday around 11 AM. 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 She was scooting out of her chair when she struck her head on the frame of the door of the car. She states that she was dazed but no loss of consciousness. She states that she is on apixaban for history of PEs. Continues to have significant headache. She denies nausea or vomiting. Patient states that also yesterday her dog jumped on her and hit her in the face. She did not note any scratches or injuries. [facility] Medical History (Updated 09/16/24 @ 13:[address] Samia Pelaez, ) Macular degeneration Bilateral pulmonary embolism Depression History of kidney stones Acute calculous cholecystitis Laceration of left index finger Pulmonary emboli Hypoxia Elevated troponin Pulmonary embolism and infarction Fracture of left foot Episode of syncope Fibromyalgia Anxiety Home Medications ?Medication ?Instructions ?Recorded ?Last Taken ?Type hydrocodone 7.5 mg-acetaminophen 1 tab PO TID PRN PRN pain 12/15/23 03/12/24 10:00 History 325 mg tablet levothyroxine 25 mcg tablet 25 mcg PO DAILY thyroid 12/15/23 03/11/24 History cholecalciferol (vitamin D3) 25 25 mcg PO DAILY supplement 02/23/24 03/06/24 History mcg (1,000 unit) capsule omeprazole 40 mg capsule,delayed 40 mg PO QDAY unknown #30 caps 03/02/24 03/11/24 Rx release apixaban 5 mg (74 tabs) tablets in 5 mg PO BID PE #74 tabs 03/16/24 Unknown Rx a dose pack (Eliquis DVT-PE Treat 30D Start) tolterodine 2 mg tablet 4 mg PO BID over active bladder 05/08/24 Unknown History doxepin 50 mg capsule 50 mg PO QHS 07/18/24 Unknown History potassium chloride 20 mEq 20 meq PO QDAY 07/18/24 Unknown History tablet,extended release vitamin B complex 1 cap PO QDAY 07/18/24 Unknown History Allergy/AdvReac Type Severity Reaction Status Date / Time No Known Allergies Allergy Verified 09/16/24 11:53 Family History Mother Myocardial infarction Sister Diabetes Cancer Sister No problems noted. Father Cancer Surgical History S/P tonsillectomy S/P appendectomy S/P excision of ganglion cyst History of partial hysterectomy History of cholecystectomy Social History Smoking Status: Never smoker alcohol intake: never substance use type: does not use ROS ROS ED Review of Systems ROS Unobtainable: other Constitutional Constitutional ED: Reports lethargy; Denies chills, fever(s), sweats or weight loss Eyes Eyes: Denies blurry vision, change in vision or diplopia ENT ENT ED: Denies rhinorrhea or sore throat Cardiovascular Cardiovascular: Denies chest pain, orthopnea or racing heartbeat Respiratory/Chest Respiratory/Chest: Denies cough, dyspnea, dyspnea on exertion, orthopnea or sputum Gastrointestinal Gastrointestinal: Denies abdominal pain, diarrhea, nausea or vomiting Genitourinary Genitourinary ED: Denies dysuria, hematuria or urinary frequency Musculoskeletal Musculoskeletal: Denies arthralgias, back pain, myalgias or neck pain Integumentary Denies abscess, Abrasions or rash Neurologic Neurologic: Reports headache(s); Denies weakness Psychiatric Psychiatric: Denies anxiety, depression or suicidal thoughts Endocrine Endocrinology: Denies polydipsia, polyphagia or polyuria Hematologic/Lymphatic Hematologic/Lymphatic: Denies easy bleeding, easy bruising or lymphadenopathy Allergic/Immunologic Allergic/Immunologic ED: Denies mouth swelling, tongue swelling or urticaria EXAM Physical Exam Const Vital Signs: 09/16/24 11:50 09/16/24 11:59 Temperature 97.6 F L Temperature Source Temporal Pulse Rate 85 Respiratory Rate 16 Respiratory Effort Normal Respiratory Depth Normal Respiratory Pattern Normal Blood Pressure 138/90 H Blood Pressure Mean 106 Pulse Ox 96 Oxygen Delivery Method Room Air Room Air Positive well nourished and well developed General Appearance ED: well developed and NAD HEENT Reports TM's clear and moist mucous membranes HEENT Narrative: No external evidence of trauma to her head. There is no ecchymosis or bruising. No bony step-offs or depressions. normocephalic and atraumatic; Negative for trauma or tenderness Tympanic Membrane ED: Yes TM's clear Eyes PERRL and EOMs intact bilaterally General Eye ED: Negative for pale conjunctiva or scleral icterus Neck no lymphadenopathy, supple and no JVD General: Negative for tenderness Chest Wall inspection of chest normal and palpation of chest normal Chest: Negative for tenderness Resp normal respiratory effort and clear to auscultation bilaterally Effort and Inspection: Negative for respiratory distress or pain with movement Auscultation: Negative for rhonchi, wheezes or diminished lung sounds Cardio regular rate, regular rhythm, S1 normal heart sound, S2 normal heart sound and no murmurs Peripheral Pulses: pulses 2+ throughout GI normal to inspection, nondistended, normoactive bowel sounds, soft to palpation, non-tender, non-distended and no masses Back/Spine no CVA tenderness and no thoracic nor lumbar tenderness Extremity normal to inspection General Extremety ED: Negative for edema General Extremity: Negative for edema Neuro oriented x3, CN's II-XII intact bilaterally, no sensory deficits noted and gait normal Sensorium / Orientation: awake, alert, oriented to person, oriented to place and oriented to time Motor Exam: strength 5/5 throughout and strength abnormal Psych mental status grossly normal Skin no rashes or lesions noted and no wounds MDM MDM MDM Narrative Medical decision making narrative: Patient presents to the emergency department with a headache after bumping her head on the car yesterday. No loss of consciousness. Given that she is on apixaban I did obtain a CT scan of the brain without contrast which was unremarkable. I did offer her Tylenol afterwards but she states that she was on her way to the drugstore and she was in a get some there. She apparently had asked for Tylenol before that and I was not aware. Radiography Diagnostic Testing: Clinical Impression(s) from Imaging Studies Brain CT 09/16/24 12:03 IMPRESSION: No acute intracranial finding. Stable findings of chronic microvascular ischemic changes and age-related changes. Reading Location: [facility] Discharge Plan Triage Chief Complaint: Head Injury ED Provider: Samia Pelaez Dx/Rx/DC Orders Clinical Impression: Closed head injury Instructions: ED Head Injury (Adult) Prescriptions: No Action cholecalciferol (vitamin D3) 25 mcg (1,000 unit) capsule 25 mcg PO DAILY Eliquis DVT-PE Treat 30D Start 5 mg (74 tabs) tablets,dose pack 5 mg PO BID Qty: 74 0RF Rx Instructions: 10 mg twice daily for 1 week to 03/22/2024 and then transition to 5 mg twice daily on 03/23/2024 at 10 AM. hydrocodone-acetaminophen 7.5-325 mg tablet 1 tab PO TID PRN PRN (Reason: pain) levothyroxine 25 mcg tablet 25 mcg PO DAILY tolterodine 2 mg tablet 4 mg PO BID Rx Instructions: per pt dose recently increased to BID omeprazole 40 mg capsule,delayed release(DR/EC) 40 mg PO QDAY Qty: 30 3RF Rx Instructions: swallow whole; do not crush, chew, dissolve, cut, break--take in PM or 2 hrs after levothyroxine Primary Care Provider: Ed Bowman Chi Referrals: Ed Bowman Chi, MD [Primary Care Provider] - 3-5 Days Print Language: Greek Disposition Disposition: Home, Self Care Discharge Date/Time: 09/16/24 13:39
[2024-09-16 13:22] VITALS: BP 138/90; PULSE 85; RESP 16; TEMP 36.4; O2SAT 96
== END 2024-09-16 13:39 | disposition home or self-care (01) ==
PROVIDERS: Emergency Provider Emergency Medicine; PCP Family Medicine Geriatric Medicine; Visit Provider Emergency Medicine
DX: S09.90XA Unspecified injury of head, initial encounter (principal); H35.3290 Exudative age-related macular degeneration, unspecified eye, stage unspecified; W22.8XXA Striking against or struck by other objects, initial encounter; F32.A Depression, unspecified; F41.9 Anxiety disorder, unspecified; Z79.01 Long term (current) use of anticoagulants; Z86.711 Personal history of pulmonary embolism; Z79.899 Other long term (current) drug therapy
CPT/HCPCS: 70450; 99282

== ENCOUNTER 2024-11-05 13:21 | Emergency (ER) | payer MEDICARE, SELFPAY ==
[2024-11-05 13:22] VITALS: PULSE 85; RESP 18; TEMP 36.6; O2SAT 96; BMI 34.0
[2024-11-05 13:32] VITALS: BP 155/105; PULSE 85; RESP 18; O2SAT 94
--- NOTE | 2024-11-05 13:47 | EKG12_ITS ---
Test Reason : WEAKNESS Blood Pressure : */* mmHG Vent. Rate : 81 BPM Atrial Rate : 81 BPM P-R Int : 162 ms QRS Dur : 80 ms QT Int : 380 ms P-R-T Axes : 29 -34 21 degrees QTcB Int : 441 ms Sinus rhythm with occasional Premature ventricular complexes Left axis deviation Abnormal ECG Confirmed by CHAD CUENCA, VINH ([id number]), film or videotape editor LEYDA NICOLAS ([id number]) on 11/08/2024 11:53:48 AM Referred By: Confirmed By: VINH BONILLA MD
--- NOTE | 2024-11-05 13:50 | EX.ED.DYSGE1 ---
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 Patient does have history of DVT resulting in a pulmonary embolus. Patient does follow-up and has been off her Eliquis for 3 months, this is per the doctors oversight. Patient states that she lost her 1.5 years ago, she knows that she is depressed. Patient states last evening she was more depressed than usual, and she took an anxiety pill which she does not normally take. This morning, she felt more dizzy. She went to the store, felt weak and fell through her wheelchair. Patient does have skin tear to the right arm, no head or neck injury. She is not complaining of any pain. She is does state that 1 week ago, she did have a week where she had nausea vomiting diarrhea and lost some weight. Denies any fever or chills. PFSH <FERNANDA Fernandez - Last Filed: 11/05/24 15:27> [facility] Medical History Macular degeneration Bilateral pulmonary embolism Depression History of kidney stones Acute calculous cholecystitis Laceration of left index finger Pulmonary emboli Hypoxia Elevated troponin Pulmonary embolism and infarction Fracture of left foot Episode of syncope Fibromyalgia Anxiety Home Medications ?Medication ?Instructions ?Recorded ?Last Taken ?Type hydrocodone 7.5 mg-acetaminophen 1 tab PO TID PRN PRN pain 12/15/23 03/12/24 10:00 History 325 mg tablet levothyroxine 25 mcg tablet 25 mcg PO DAILY thyroid 12/15/23 03/11/24 History cholecalciferol (vitamin D3) 25 25 mcg PO DAILY supplement 02/23/24 03/06/24 History mcg (1,000 unit) capsule omeprazole 40 mg capsule,delayed 40 mg PO QDAY unknown #30 caps 03/02/24 03/11/24 Rx release apixaban 5 mg (74 tabs) tablets in 5 mg PO BID PE #74 tabs 03/16/24 Unknown Rx a dose pack (Eliquis DVT-PE Treat 30D Start) tolterodine 2 mg tablet 4 mg PO BID over active bladder 05/08/24 Unknown History doxepin 50 mg capsule 50 mg PO QHS 07/18/24 Unknown History potassium chloride 20 mEq 20 meq PO QDAY 07/18/24 Unknown History tablet,extended release vitamin B complex 1 cap PO QDAY 07/18/24 Unknown History cephalexin 500 mg capsule 500 mg PO TID 7 days #21 caps 11/05/24 Unknown Rx Allergy/AdvReac Type Severity Reaction Status Date / Time No Known Allergies Allergy Verified 09/25/24 13:27 Family History Mother Myocardial infarction Sister Diabetes Cancer Sister No problems noted. Father Cancer Surgical History S/P tonsillectomy S/P appendectomy S/P excision of ganglion cyst History of partial hysterectomy History of cholecystectomy Social History Smoking Status: Never smoker alcohol intake: never substance use type: does not use ROS <FERNANDA Fernandez - Last Filed: 11/05/24 15:27> ROS ED ROS Narrative Constitutional: Negative for fever, chills, weight loss. Positive for weakness Eyes: Negative for vision loss, vision change, double vision ENT: Negative for any sore throat, ear pain, congestion Cardiovascular: Negative for any chest pain, tightness, palpitations Respiratory: Negative for any cough, sputum production, hemoptysis, dyspnea, dyspnea on exertion, orthopnea Gastrointestinal: Negative for any abdominal pain, nausea, vomiting, diarrhea, constipation, blood in stool, blood in vomit : Negative for any urinary frequency, dysuria, retention, blood in urine Muscle skeletal: Negative for any neck pain, back pain. Positive for skin tear of the right forearm Neurological: Negative for any headache, syncope, dizziness Skin: Negative for any rashes, itching, abrasions, lacerations Psychiatric: Negative for any suicidal ideation, homicidal ideation. Positive for increased stress level, depression anxiety Hematologic: Negative for any excessive bruising, easy bleeding EXAM <FERNANDA Fernandez - Last Filed: 11/05/24 15:27> Physical Exam Narrative Exam Narrative: Vital signs reviewed. Patient does have a service dog by her side, patient is in no obvious distress. Patient is acting appropriate. HEET: Head normocephalic atraumatic, TMs clear bilaterally. Posterior pharynx is clear, moist mucous membranes. Nares clear bilaterally. Neck: Supple with no lymphadenopathy or tenderness. No signs of meningismus. Cardiac: Regular rate and rhythm no murmurs gallops or rubs, equal peripheral pulses bilaterally. Respiratory: Lungs clear to auscultation bilaterally. No chest tenderness. Abdomen: Soft, nontender, nondistended. No abdominal bruit or pulsatile masses. No hepatosplenomegaly Extremities: No peripheral edema, no signs of gross trauma or deformity. Active full range of motion of all extremities. Patient does have a skin tear to the right forearm on the posterior aspect. There are 2 separate superficial skin tears. Neuro: Cranial nerves II through XII intact, no focal neurological deficits. Skin: Clean dry and intact with no rash, purpura, petechiae, vesicles or pustules. Backs/flank: No CVA tenderness, no midline spinal tenderness, no deformity. Psych: Normal mood and affect. No SI, HI or acute psychosis. Speaking with the patient, she does appear depressed, this is secondary to her passing away. However she does not state any suicidal homicidal ideations. Const Vital Signs: 11/05/24 13:22 11/05/24 13:28 11/05/24 13:32 Temperature 97.9 F Temperature Source Oral Pulse Rate 85 85 Respiratory Rate 18 18 Respiratory Effort Normal Non-Labored Respiratory Pattern Normal Blood Pressure 155/105 H Blood Pressure Mean 121 Pulse Ox 96 94 Oxygen Delivery Method Room Air Room Air Positive well nourished and well developed General Appearance ED: well developed <Dr. Yue Gonzalez DO - Last Filed: 11/09/24 14:09> Physical Exam Const Vital Signs: 11/05/24 13:22 11/05/24 13:28 11/05/24 13:32 Temperature 97.9 F Temperature Source Oral Pulse Rate 85 85 Respiratory Rate 18 18 Respiratory Effort Normal Non-Labored Respiratory Pattern Normal Blood Pressure 155/105 H Blood Pressure Mean 121 Pulse Ox 96 94 Oxygen Delivery Method Room Air Room Air MDM <FERNANDA Fernandez - Last Filed: 11/05/24 15:27> [facility] Lab Data Labs: Laboratory Results - last 24 hr 11/05/24 13:56 WBC 8.4 RBC 4.71 Hgb 14.7 Hct 42.3 MCV 89.8 MCH 31.2 MCHC 34.8 RDW Std Deviation 43.9 RDW Coeff of Larry 13.3 Plt Count 238 MPV 8.7 Immature Gran % (Auto) 1.300 H Neut % (Auto) 57.3 Lymph % (Auto) 29.2 Murray % (Auto) 11.1 H Eos % (Auto) 0.5 Baso % (Auto) 0.6 Absolute Neuts (auto) 4.8 Absolute Lymphs (auto) 2.45 Nucleated RBC % 0 Sodium 140 Potassium 3.9 Chloride 105 Carbon Dioxide 23.0 Anion Gap 12 BUN 17 Creatinine 0.86 Estim Creat Clear Calc 56.98 Est GFR (MDRD) Non-Af 70 BUN/Creatinine Ratio 19.6 Glucose 95 Calcium 9.2 Total Bilirubin 0.54 AST 26 ALT 11 Alkaline Phosphatase 74 Troponin T High Sens 14 Total Protein 6.6 Albumin 3.8 Globulin 2.8 Albumin/Globulin Ratio 1.4 Lipase 22 EKG Sinus rhythm with occasional premature ventricular complex: Attestation: I personally reviewed and interpreted this EKG as follows: Interpretation: Sinus Rhythm Comments: Sinus rhythm with occasional PVCs, rate of 81 bpm, DC interval 162 ms, QRS duration 80 ms, no acute ST elevation, no acute infarct noted. Treatment and Re-Evaluation :: Differential diagnosis includes however is not limited to: Increase stress, anxiety, depression, medication reaction, electrode abnormality, ACS, MA, dehydration Patient appears generally well, vital signs are stable, patient is nontoxic-appearing. Presenting to the emergency department for mechanical fall, weakness, some dizziness. This could be from patient taking the anxiety medication or not eating and drinking well. Patient states that she does feel depressed. Patient is a superficial skin tear of the right forearm however no other pain. Patient will receive basic laboratory values including troponin and EKG. No imaging is necessary at this time. Urinalysis will also be ordered. Patient states that she would like to go home however I will have social work talk with the patient. Patient's laboratory values showed normal CBC, patient's chemistries were unremarkable, lipase was negative. Patient's urinalysis was positive for infection 3+ bacteria 5-10 white blood cells, 25 leukocytes, positive nitrites. This was sent for culture, patient placed on Keflex. Patient will continue this for 7 days. Patient is currently talking to social work. I do believe the patient be discharged home. Patient was ambulatory to the bathroom no difficulty. Pay states he feels generally well. <Dr. Yue Gonzalez, DO - Last Filed: 11/09/24 14:09> [facility] Lab Data Labs: Laboratory Results - last 24 hr 11/05/24 13:56 WBC 8.4 RBC 4.71 Hgb 14.7 Hct 42.3 MCV 89.8 MCH 31.2 MCHC 34.8 RDW Std Deviation 43.9 RDW Coeff of Larry 13.3 Plt Count 238 MPV 8.7 Immature Gran % (Auto) 1.300 H Neut % (Auto) 57.3 Lymph % (Auto) 29.2 Murray % (Auto) 11.1 H Eos % (Auto) 0.5 Baso % (Auto) 0.6 Absolute Neuts (auto) 4.8 Absolute Lymphs (auto) 2.45 Nucleated RBC % 0 Sodium 140 Potassium 3.9 Chloride 105 Carbon Dioxide 23.0 Anion Gap 12 BUN 17 Creatinine 0.86 Estim Creat Clear Calc 56.98 Est GFR (MDRD) Non-Af 70 BUN/Creatinine Ratio 19.6 Glucose 95 Calcium 9.2 Total Bilirubin 0.54 AST 26 ALT 11 Alkaline Phosphatase 74 Troponin T High Sens 14 Total Protein 6.6 Albumin 3.8 Globulin 2.8 Albumin/Globulin Ratio 1.4 Lipase 22 Treatment and Re-Evaluation :: Differential diagnosis includes however is not limited to: Increase stress, anxiety, depression, medication reaction, electrode abnormality, ACS, MA, dehydration Patient appears generally well, vital signs are stable, patient is nontoxic-appearing. Presenting to the emergency department for mechanical fall, weakness, some dizziness. This could be from patient taking the anxiety medication or not eating and drinking well. Patient states that she does feel depressed. Patient is a superficial skin tear of the right forearm however no other pain. Patient will receive basic laboratory values including troponin and EKG. No imaging is necessary at this time. Urinalysis will also be ordered. Patient states that she would like to go home however I will have social work talk with the patient. Patient's laboratory values showed normal CBC, patient's chemistries were unremarkable, lipase was negative. Patient's urinalysis was positive for infection 3+ bacteria 5-10 white blood cells, 25 leukocytes, positive nitrites. This was sent for culture, patient placed on Keflex. Patient will continue this for 7 days. Patient is currently talking to social work. I do believe the patient be discharged home. Patient was ambulatory to the bathroom no difficulty. Pay states he feels generally well. I have personally performed a face to face assessment of the patient and have reviewed the CHANDRAKANT Note. I performed a substantive portion of the visit including all aspects of the following. My alvarez findings include: Patient 74-year-old female presenting with generalized weakness as well as a fall with associated skin tear to her right forearm. Patient admits that she has been depressed since her a year and a half ago and has been feeling overwhelmed but denies any SI or HI. States she feels safe at home. She notes last night she did take an anxiety pill but is not clear what that was. She felt dizzy today generally weak. She was trying to sit down while at the drugstore but fell through the chair where her arm became stuck and she sustained a skin tear. She denies any other injury. Did have a recent GI illness as well. Differential includes ACS, medication reaction, arrhythmia, dehydration, volume depletion, TY, electrolyte abnormality as well as infection. Patient denies any chest pain or shortness of breath. Is not hypoxic or tachycardic. Do not think she needs workup for pulmonary emboli. Patient overall is well-appearing right now. She is hemodynamically stable. On exam patient atraumatic normocephalic. Sitting in no acute distress. Moist mucosal membranes. Neck is supple with no JVD. Heart regular rate and rhythm. Lungs clear to auscultation bilaterally. Abdomen soft nontender. Patient is alert with no focal neurologic deficits. Answers questions appropriately with clear speech. Approximately 4 cm x 2 cm skin tear to the right forearm, with no active bleeding. Workup obtained including CBC, CMP, high-sensitivity troponin, lipase (given her recent vomiting), urinalysis and EKG. She is given a liter of IV fluids. Her workup is largely normal with urinalysis that is consistent with urinary tract infection. Urine is sent for culture and patient started on Keflex. She is not having systemic symptoms however and I feel good candidate for outpatient treatment. Patient has a steady gait while in the emergency room. Remains hemodynamically stable in the emergency room. Given return precautions. Discharged home in stable condition. Discharge Plan Triage Chief Complaint: Weakness ED Midlevel Provider: Chato Yang ED Provider: Yue Gonzalez Dx/Rx/DC Orders Clinical Impression: Acute UTI, Depression, Skin tear Instructions: Urinary Tract Infections in Women, Depression: Tips to Help Yourself, ED Skin Tear (Skin Avulsion) Prescriptions: New cephalexin 500 mg capsule 500 mg PO TID 7 Days Qty: 21 0RF No Action cholecalciferol (vitamin D3) 25 mcg (1,000 unit) capsule 25 mcg PO DAILY doxepin 50 mg capsule 50 mg PO QHS potassium chloride 20 mEq tablet extended release 20 meq PO QDAY vitamin B complex Capsule 1 cap PO QDAY Eliquis DVT-PE Treat 30D Start 5 mg (74 tabs) tablets,dose pack 5 mg PO BID Qty: 74 0RF Rx Instructions: 10 mg twice daily for 1 week to 03/22/2024 and then transition to 5 mg twice daily on 03/23/2024 at 10 AM. hydrocodone-acetaminophen 7.5-325 mg tablet 1 tab PO TID PRN PRN (Reason: pain) levothyroxine 25 mcg tablet 25 mcg PO DAILY tolterodine 2 mg tablet 4 mg PO BID Rx Instructions: per pt dose recently increased to BID omeprazole 40 mg capsule,delayed release(DR/EC) 40 mg PO QDAY Qty: 30 3RF Rx Instructions: swallow whole; do not crush, chew, dissolve, cut, break--take in PM or 2 hrs after levothyroxine Primary Care Provider: Ed Bowman Chi Referrals: Ed Bowman Chi, MD [Primary Care Provider] - Activity Restrictions/Additional Instructions: Take the antibiotics until finished. Please continue to follow-up. Print Language: Occitan Disposition Disposition: Home, Self Care Discharge Date/Time: 11/05/24 15:47
[2024-11-05] MEDS: 0.9% Normal Saline (1000mL) 1,000 ML 999 ML IV (13:56)
[2024-11-05 14:03] LABS: Absolute Lymphocyte Count 2.45 X10^3/uL (0.83-4.51); Absolute Neutrophil Count 4.8 X10^3/uL (2.0-7.7); Basophil# 0.05 X10^3/uL; Basophil% 0.6 % (0-1); Eosinophil# 0.04 X10^3/uL; Eosinophils% 0.5 % (0-5); Hematocrit 42.3 % (37-47); Hemoglobin 14.7 g/dL (12.0-15.0); Lymphocyte # 2.45 X10^3/ul (0.83-4.51); Lymphocyte % 29.2 % (19-41); Mean Corp Hgb Conc 34.8 g/dL (32-36); Mean Corpuscular Hgb 31.2 pg (27.0-32.0); Mean Corpuscular Volume 89.8 fL (81-99); Mean Platelet Vol. 8.7 fl (6.2-12.0); Monocyte# 0.93 X10^3/uL; Monocyte% 11.1 % (0-10); NRBC Flagged by Analyzer 0 % (0-5); Neutrophil # 4.81 X10^3/uL (2.7-7.7); Neutrophil % 57.3 % (47-70); Platelet Count 238 K/mm3 (150-450); RBC Distribution Width CV 13.3 % (11.6-14.6); RBC Distribution Width SD 43.9 fl (35.1-43.9); Red Blood Count 4.71 M/mm3 (4.2-5.4); White Blood Count 8.4 K/mm3 (4.4-11.0)
[2024-11-05 14:19] LABS: Lipase 22 U/L (13-75); Troponin T High Sensitivity 14 ng/L (<=14)
[2024-11-05 14:21] LABS: ALB/GLOB Ratio 1.4 RATIO (0.9-2.4); AST(SGOT) 26 U/L (<=31); Alanine Aminotransfer ALT/SGPT 11 U/L (<=34); Albumin, Serum 3.8 g/dL (3.4-4.8); Alkaline Phosphatase 74 U/L (35-104); Anion Gap 12 (5-15); BUN 17 mg/dL (4-19); BUN/Creat Ratio 19.6 RATIO (10-20); Calcium,Total 9.2 mg/dL (7.6-11.0); Chloride 105 mmol/L (98-108); Creatinine, Serum 0.86 mg/dL (0.70-1.20); EST Glomerular Filtration Rate 70 (>60); Estimated Creatinine Clearance 56.98 ml/min (50-250); Globulin 2.8 g/dL (2.2-4.2); Glucose 95 mg/dL (70-99); Potassium 3.9 mmol/L (3.3-5.1); Protein, Total 6.6 g/dL (5.9-8.4); Sodium Level 140 mmol/L (133-145); Total Bilirubin 0.54 mg/dL (0.00-1.30)
[2024-11-05 14:54] LABS: Red Blood Cells-Urine 0 SEEN /hpf (0-5)
[2024-11-05 15:00] LABS: Color, Urine Yellow (Yellow); Glucose, Dipstick Normal (Normal); Ketone-Dipstick Negative (Negative); Leukocyte Esterase-Dipstick 25 /ul (Negative); Nitrite-Dipstick Positive (Negative); Occult Blood-Urine Negative /ul (Negative); Protein-Dipstick 30 mg/dl (Negative); Specific Gravity, Urine 1.015 (1.002-1.030); Urine Bilirubin Dipstick Negative (Negative); Urine Clarity Sl. Cloudy (Clear); Urine Urobilinogen Normal (Normal)
[2024-11-05 15:06] LABS: Bacteria 3+ /hpf (None Seen); Mucous, Urine 2+ /hpf (<or=2+); Squamous Epithelial Cells - UA 0-5 SEEN /hpf (5-10); White Blood Cells 5-10 SEEN /hpf (0-5)
[2024-11-05 15:21] VITALS: BP 145/88; PULSE 80; RESP 18; O2SAT 95
[2024-11-05] MEDS: Cephalexin 250 MG Capsule 500 MG PO (15:25)
[2024-11-05] MEDS: Diphth,Pertuss(Acell),Tet Vac 0.5 ML Vial IM (15:25)
--- NOTE | 2024-11-05 15:25 | CM.ED ---
Social Work: Date of referral: 11/05/2024 Reason for referral: Support Referred by: ED Doctor Patient provided consent for social work visit. Patient was lying in the hospital bed with her small dog whom patient referred to as her support animal. Patient's 1.5 years ago and patient stated she had hard time getting through Easter and was feeling extra lonely. Patient stated her son Hardeep lives 2 houses down from her and doesn't hardly ever come over, call or check on her. Patient did say he came over recently to repair part of her backyard fence so patient could let her dog out. Patient stated she has 2 supports who call weekly and check on her. Patient reported she was recently sick for 2 weeks which resulted in her house being a mess. Patient stated she has a neighbor who is scheduled to come over tomorrow and take out all of the trash she has bagged up. Patient is on PIP, has her own car and drives to and from where she needs to go. Patient reported she has food and also utilizes the local food [employer] for extra support. Patient in the process of taking care of some financial affairs which will allow her to pay off her car as well as some other financial obligations and will also then make her eligible for Medicaid so patient can get connected to the local [employer] ([employer]). Patient is aware of the services that are offered by the [facility]. lay out worker provided emotional support and also offered written resources/community supports that can support mental health/depression which patient declined. Patient denied any other needs/concerns at this time. Ana Rowell, [employer] SKILL[employer] INSTRUCTOR, [employer] WORKER
== END 2024-11-05 15:47 | disposition home or self-care (01) ==
PROVIDERS: Nurse Practitioner; Emergency Provider Emergency Medicine; PCP Family Medicine Geriatric Medicine; Visit Provider Emergency Medicine
DX: N39.0 Urinary tract infection, site not specified (principal); S51.811A Laceration without foreign body of right forearm, initial encounter; W19.XXXA Unspecified fall, initial encounter; Y92.512 Supermarket, store or market as the place of occurrence of the external cause; F41.9 Anxiety disorder, unspecified; F32.A Depression, unspecified; M79.7 Fibromyalgia; I49.3 Ventricular premature depolarization; Z23 Encounter for immunization; Z63.4 Disappearance and death of family member; Z86.711 Personal history of pulmonary embolism; Z86.718 Personal history of other venous thrombosis and embolism; Z79.899 Other long term (current) drug therapy
CPT/HCPCS: 80053; 81001; 83690; 84484; 85025; 87077; 87086; 87088; 87186; 90471; 90715; 93005; 96360; 99285; A4216

== ENCOUNTER → 2024-11-09 | Outpatient (CLI) | payer MEDICARE, SELFPAY ==
--- NOTE | 2024-11-09 14:16 | RAD_ITS ---
PROCEDURE: SHOULDER MIN 2 VIEWS 11/09/2024 REASON FOR EXAM: SHOULDER PAIN TECHNIQUE: Four views right shoulder COMPARISON: None available FINDINGS: No fracture or dislocation. The joint spaces appear within limits. Mild osteoarthrosis glenohumeral joint. Visualized right lung appears clear. RAD/Shoulder min 2 Views IMPRESSION: No fracture or dislocation. Mild osteoarthrosis glenohumeral joint. Reading Location: [id number]
== END | disposition home or self-care (01) ==
LOC: RAD 14:07
PROVIDERS: PCP Family Medicine Geriatric Medicine; Referring Provider Family Medicine Geriatric Medicine; Visit Provider Family Medicine Geriatric Medicine
DX: M25.511 Pain in right shoulder (principal)
CPT/HCPCS: 73030

== ENCOUNTER 2024-11-26 14:13 | Emergency (ER) | payer MEDICARE, SELFPAY ==
[2024-11-26 14:14] VITALS: BP 134/97; PULSE 94; RESP 15; TEMP 36.1; O2SAT 96
--- NOTE | 2024-11-26 14:35 | CT_ITS ---
EXAM: CT Cervical Spine Without Intravenous Contrast CLINICAL INDICATION: NECK INJURY TECHNIQUE: Axial computed tomography images of the cervical spine without intravenous contrast. This CT exam was performed using one or more of the following dose reduction techniques: automated exposure control, adjustment of the mA and/or kV according to patient size, and/or use of iterative reconstruction technique. COMPARISON: CT Cervical Spine dated 06/04/2024 FINDINGS: VERTEBRAE: Degenerative facet arthropathy throughout the cervical spine. No acute fracture. DISCS/SPINAL CANAL/NEURAL FORAMINA: Degenerative disc disease lower cervical spine. SOFT TISSUES: Unremarkable. CT/Spine Cervical without Contras IMPRESSION: 1. No acute fracture. 2. No significant change from the prior exam. 3. Degenerative changes cervical spine as described. Reading Location: [id number]
--- NOTE | 2024-11-26 14:35 | CT_ITS ---
EXAM: CT Head Without Intravenous Contrast CLINICAL INDICATION: HEAD INJURY, ON ELIQUIS TECHNIQUE: Axial computed tomography images of the head/brain without intravenous contrast. This CT exam was performed using one or more of the following dose reduction techniques: automated exposure control, adjustment of the mA and/or kV according to patient size, and/or use of iterative reconstruction technique. COMPARISON: CT Head dated 11/16/2024 FINDINGS: BRAIN AND EXTRA-AXIAL SPACES: The cerebral and cerebellar sulci are prominent consistent with brain atrophy. Areas of decreased attenuation in the deep cerebral white matter are consistent with small vessel ischemic/degenerative changes. No acute intracranial hemorrhage, midline shift or mass effect. If symptoms persist, further evaluation with MRI is recommended. BONES/JOINTS: Unremarkable. No acute fracture. SOFT TISSUES: Unremarkable. SINUSES: Unremarkable as visualized. No acute sinusitis. MASTOID AIR CELLS: Unremarkable as visualized. No mastoid effusion. CT/Brain/Head without Contrast IMPRESSION: 1. Generalized brain atrophy. 2. Small vessel ischemic/degenerative changes. 3. No acute intracranial hemorrhage, midline shift or mass effect. If symptoms persist, further evaluation with MRI is recommended. 4. No significant change from the prior exam. Reading Location: [id number]
--- NOTE | 2024-11-26 14:37 | EDS_ITS ---
<Statement entered by Ryan Akers DO - 11/26/24 16:29> Patient was seen and examined with physician inventory control assistant Qian All components of the history and physical confirmed and agreed. History of present illness and physical exam: Patient is a 74-year-old female with a past medical history of DVT on Eliquis, anxiety, fibromyalgia who presented to the emergency department chief complaint of fall and hit her head. Patient states that she was at her granddaughter's graduation and was sitting in the bleachers when her foot got caught on the bench causing a fall and hit the left side of her head. She states that she not pass out she remembers the entire event. Patient states that she was told that since she is on Eliquis she needs to have a CT of her head after any trauma. Review of systems: Agree above Physical exam: Agree with above patient is a 74-year-old female who presented to the emergency department chief complaint of MDM Falling hit her head well on Eliquis. Once again this was mechanical fall she states that her feet got caught on the bottom of the bench causing her to fall she did not develop chest pain shortness of breath lightheadedness or dizziness prior to the fall. On the differential diagnose includes but not limited to intracranial hemorrhage, cervical spine fracture. Once workup is obtained reviewed she will be reevaluated. Patient CT head and brain without contrast was reviewed and showed generalized brain atrophy, small vessel ischemic degenerative changes, no acute intracranial hemorrhage midline shift or mass effect. Patient CT cervical spine showed no acute fracture or listhesis. Discussed results with patient she would like to go home at this point time. She is agreeable to plan she was advised to return with any other concerns or worsening symptoms all question concerns answered she was discharged home in stable condition. Plan: Final impression: Fall Closed head injury on Eliquis Disposition: Patient will be discharged home in stable condition Supervising attending attestation: Ryan MAR History of Present Illness Chief Complaint: Fall Narrative Narrative: Patient presenting today due to a head injury that occurred this afternoon while at her granddaughter's graduation. She was trying to sit on a bench when she got her feet caught on the bottom of the bench and fell, hitting the left side of her head on the ground. She also reports pain to the right side of her neck/ right trapezius. She is on Eliquis due to history of DVT/PE. She reports pain to her head and right side of her neck. She otherwise denies any injury. She had no LOC. She is able to ambulate. [facility] Medical History DVT (deep venous thrombosis) Staphylococcus aureus infection Macular degeneration Bilateral pulmonary embolism Depression History of kidney stones Acute calculous cholecystitis Laceration of left index finger Pulmonary emboli Hypoxia Elevated troponin Pulmonary embolism and infarction Fracture of left foot Episode of syncope Fibromyalgia Anxiety Home Medications ?Medication ?Instructions ?Recorded ?Last Taken ?Type hydrocodone 7.5 mg-acetaminophen 1 tab PO TID PRN PRN pain 12/15/23 03/12/24 10:00 History 325 mg tablet levothyroxine 25 mcg tablet 25 mcg PO DAILY thyroid 03/11/24 History cholecalciferol (vitamin D3) 25 25 mcg PO DAILY supple ment 02/23/24 03/06/24 History mcg (1,000 unit) capsule tolterodine 2 mg tablet 4 mg PO BID over active blad gail 05/08/24 Unknown History doxepin 50 mg capsule 50 mg PO QHS 07/18/24 Unknow n History vitamin B complex 1 cap PO QDAY 07/18/24 Unkno wn History Allergy/AdvReac Type Severity Reaction Status Date / Time No Known Allergies Allergy Verified 11/26/24 14:14 Family History Mother Myocardial infarction Sister Diabetes Cancer Sister No problems noted. Father Cancer Surgical History S/P tonsillectomy S/P appendectomy S/P excision of ganglion cyst History of partial hysterectomy History of cholecystectomy Social History Smoking Status: Never smoker alcohol intake: never substance use type: does not use ROS ROS ED Constitutional Constitutional ED: Denies chills or fever(s) Cardiovascular Cardiovascular: Denies chest pain Respiratory/Chest Respiratory/Chest: Denies dyspnea Gastrointestinal Gastrointestinal: Denies abdominal pain, nausea or vomiting Musculoskeletal Musculoskeletal: Reports neck pain Integumentary Denies Abrasions Neurologic Neurologic: Reports headache(s); Denies paresthesias EXAM Physical Exam Const Vital Signs: 11/26/24 14:14 11/26/24 14:49 Temperature 96.9 F L Temperature Source Temporal Pulse Rate 94 Respiratory Rate 15 Respiratory Effort Normal Respiratory Depth Normal Respiratory Pattern Normal Blood Pressure 134/97 H Blood Pressure Mean 109 Pulse Ox 96 98 Oxygen Delivery Method Room Air Room Air Positive well nourished, well developed and no apparent distress General Appearance ED: well developed HEENT Reports normocephalic and head/scalp atraumatic Mouth ED: Yes moist mucous membranes normal Eyes PERRL and EOMs intact bilaterally Neck full ROM and supple Neck Narrative: No midline cervical tenderness, tenderness to the trapezius and right paracervical muscles. Chest Wall inspection of chest normal Resp normal respiratory effort and clear to auscultation bilaterally Cardio regular rate and regular rhythm GI soft to palpation, non-tender, non-distended and no masses Back/Spine normal ROM and normal to inspection Extremity normal to inspection and full ROM Neuro oriented x3, CN's II-XII intact bilaterally, moves all extremities, no focal motor deficits and no sensory deficits noted Sensorium / Orientation: awake and alert Psych mental status grossly normal and thought process normal Skin no rashes or lesions noted and no wounds MDM MDM MDM Narrative Medical decision making narrative: Patient presenting today due to a head injury that occurred this afternoon due to mechanical fall. She is on Eliquis due to history of DVT/PE. She reports pain to her head into the right side of her neck. She has pain to the right trapezius right paracervical muscles. Head and neck CTs will be obtained to assess for intracranial bleed and cervical fracture. She was given Tylenol for pain. CT is negative for acute findings. On reexamination she is doing well. Hide injury precautions discussed and patient discharged home in stable condition. Recommended following close with PCP. She can take Tylenol at home for pain as needed. Radiography Diagnostic Testing: Clinical Impression(s) from Imaging Studies Brain CT 11/26/24 14:35 IMPRESSION: 1. Generalized brain atrophy. 2. Small vessel ischemic/degenerative changes. 3. No acute intracranial hemorrhage, midline shift or mass effect. If symptoms persist, further evaluation with MRI is recommended. 4. No significant change from the prior exam. Reading Location: [id number] Cervical Spine CT 11/26/24 14:35 IMPRESSION: 1. No acute fracture. 2. No significant change from the prior exam. 3. Degenerative changes cervical spine as described. Reading [facility] Triage Chief Complaint: Fall ED Midlevel Provider: Irena Gill ED Provider: Ryan Akers Dx/Rx/DC Orders Clinical Impression: Head injury, Cervical strain, Fall, Chronic anticoagulation Instructions: ED Head Injury (Adult), ED Neck Sprain or Strain Prescriptions: No Action cholecalciferol (vitamin D3) 25 mcg (1,000 unit) capsule 25 mcg PO DAILY doxepin 50 mg capsule 50 mg PO QHS vitamin B complex Capsule 1 cap PO QDAY hydrocodone-acetaminophen 7.5-325 mg tablet 1 tab PO TID PRN PRN (Reason: pain) levothyroxine 25 mcg tablet 25 mcg PO DAILY tolterodine 2 mg tablet 4 mg PO BID Rx Instructions: per pt dose recently increased to BID Primary Care Provider: Ed Bowman Chi Referrals: Ed Bowman Chi, MD [Primary Care Provider] - 5-7 Days Activity Restrictions/Additional Instructions: Follow-up with your PCP and return for any other concerns. Print Language: Pashto Disposition Disposition: Home, Self Care
[2024-11-26] MEDS: Acetaminophen 325 MG Tablet 650 MG PO (14:46)
[2024-11-26 14:49] VITALS: O2SAT 98
[2024-11-26 16:22] VITALS: BP 132/91; PULSE 89; RESP 16; O2SAT 95
[2024-11-26 16:23] VITALS: BP 132/91; PULSE 89; RESP 16; TEMP 36.5; O2SAT 95
== END 2024-11-26 16:32 | disposition home or self-care (01) ==
PROVIDERS: Emergency Provider Emergency Medicine; PCP Family Medicine Geriatric Medicine; Visit Provider Emergency Medicine
DX: S09.90XA Unspecified injury of head, initial encounter (principal); S16.1XXA Strain of muscle, fascia and tendon at neck level, initial encounter; W18.09XA Striking against other object with subsequent fall, initial encounter; F32.A Depression, unspecified; F41.9 Anxiety disorder, unspecified; M79.7 Fibromyalgia; Z79.01 Long term (current) use of anticoagulants; Z86.711 Personal history of pulmonary embolism; Z86.718 Personal history of other venous thrombosis and embolism; Z79.899 Other long term (current) drug therapy
CPT/HCPCS: 70450; 72125; 99282

== ENCOUNTER → 2024-11-29 | Outpatient (CLI) | payer MEDICARE, SELFPAY ==
--- NOTE | 2024-11-29 10:30 | BI_ITS ---
EXAM: SCRN MAMM (CAD)W/ARNULFO BILAT 11/29/2024 CLINICAL HISTORY: F, Age 74 y/o , ANNUAL SCREENING TECHNIQUE: Bilateral screening digital breast tomosynthesis with 2D and 3D images. Computer aided detection. COMPARISON: Prior exam(s) dated 04/06/2019, 11/26/2010. FINDINGS: TISSUE DENSITY: The breast tissue is composed of scattered area of fibroglandular density. Bilateral Breast Mammographic Findings: No significant masses, calcifications or other abnormalities are identified. BI/SCRN MAMM (CAD)W/ARNULFO BILAT IMPRESSION: Right Breast: BIRADS 1 NEGATIVE. Left Breast: BIRADS 1 NEGATIVE. OVERALL FINAL ASSESSMENT: BIRADS 1 NEGATIVE. RECOMMENDATION: Routine annual follow-up in 1 Year A letter with findings and recommendations will be mailed to the patient. Reading Location: [id number]
== END | disposition home or self-care (01) ==
LOC: OPBI 10:29
PROVIDERS: PCP Family Medicine Geriatric Medicine; Referring Provider Internal Medicine Hematology & Oncology; Visit Provider Internal Medicine Hematology & Oncology
DX: Z12.31 Encounter for screening mammogram for malignant neoplasm of breast (principal)
CPT/HCPCS: 77063; 77067

== ENCOUNTER 2024-12-05 08:31 | Emergency (ER) | payer MEDICARE, SELFPAY ==
[2024-12-05 08:32] VITALS: BP 180/114; PULSE 80; RESP 19; TEMP 36.7; O2SAT 95; BMI 33.4
[2024-12-05 08:38] VITALS: O2SAT 96
--- NOTE | 2024-12-05 08:39 | CT_ITS ---
PROCEDURE: BRAIN/HEAD WITHOUT CONTRAST 12/05/2024 REASON FOR EXAM: FALL Laceration along left side of the skull. TECHNIQUE: Head CT without intravenous contrast. Coronal and Sagittal reconstruction series were provided. One or more dose reduction techniques were used (e.g., Automated exposure control, adjustment of the mA and/or kV according to patient size, use of iterative reconstruction technique. RADIATION DOSE SUMMARY: CTDlvol: 44.99 mGy DLP: 779.24 mGycm COMPARISON: Prior study dated November 26, 2024. FINDINGS: Brain: Low density in the periventricular white matter suggests mild chronic small vessel ischemic changes. CSF Spaces: Mild generalized cerebral atrophy Sinuses/Mastoids: Clear at visualized levels Bones: Unremarkable CT/Brain/Head without Contrast IMPRESSION: CHRONIC CHANGES. NO ACUTE FINDINGS. Reading Location: [place] [id number]
--- NOTE | 2024-12-05 08:39 | CT_ITS ---
PROCEDURE: SPINE CERVICAL WITHOUT CONTRAS 12/05/2024 REASON FOR EXAM: FALL TECHNIQUE: Cervical spine CT without contrast. Coronal and Sagittal reconstruction series were provided. One or more dose reduction techniques were used (e.g., Automated exposure control, adjustment of the mA and/or kV according to patient size, use of iterative reconstruction technique RADIATION DOSE SUMMARY: CTDlvol: 24.15 mGy DLP: 520.1 mGycm COMPARISON: Prior study dated November 26, 2024. FINDINGS: Alignment: Straightening of the normal cervical lordosis most likely secondary to positioning. Vertebrae: Mild anterior spondylosis. Soft Tissues: Atherosclerotic plaque formation of the carotid bifurcations. Other: None C1-2: Unremarkable C2-3: Facet joint osteoarthritis. No significant stenosis seen. C3-4: Mild degree of disc space narrowing. C4-5: Mild degree of disc space narrowing. No evidence of stenosis. C5-6: Moderate degree of disc space narrowing. Spondylosis. Uncovertebral arthrosis. Bilateral neural foraminal stenosis. C6-7: Unremarkable C7-T1: Unremarkable CT/Spine Cervical without Contras IMPRESSION: DEGENERATIVE CHANGES OF THE CERVICAL SPINE. NO EVIDENCE OF SIGNIFICANT OSSEOUS CENTRAL CANAL OR NEURAL FORAMINAL STENOSIS. Reading Location: [place] [id number]
--- NOTE | 2024-12-05 09:02 | EDS_ITS ---
HPI HPI - Fall History of Present Illness Chief Complaint: Fall Narrative Narrative: Chief complaint and HPI: Mechanical fall. 74-year-old female with past medical history of chronic pain on narcotics, hypothyroidism, history of DVT/PE on Eliquis presents for evaluation after mechanical fall. Patient states that she slipped on her nightgown on the floor which caused her to fall. She states she hit the left side of her scalp on the side of the door. Was able to ambulate off the floor. EMS was called secondary to bleeding from the scalp. Endorses pain where the injury to the scalp is otherwise denies pain elsewhere. Denies any shortness of breath, chest pain, abdominal pain, nausea, vomiting, back/extremity pain, numbness/tingling. She states that she is up-to-date on tetanus. Review of systems: See HPI Medications: As listed on the chart Allergies: As listed on the chart PFSH: Per chart Vital signs: As listed on the chart. Reviewed. Physical exam: Gen: A&O x3, NAD Head: Normocephalic, 2 cm laceration to the left lateral scalp-minimal active bleeding Eyes: No sclera icterus, conjunctiva clear, PERRL, EOMI ENT: TMs clear BL, moist mucous membranes, no swelling/lacerations/blood in the mouth or the nares, No nasal septal hematoma, no facial tenderness Neck: Trachea midline, No JVD, Nontender CV: RRR, no murmurs, no chest wall TTP Resp: Lungs CTA BL, no w/r/c GI: Abd soft, non-distended, non-tender, no r/r/g Musc: Full ROM, no deformity, no spinal TTP, no ajit step-offs Skin: Warm, dry, intact Neuro: Alert, oriented, grossly intact, sensation intact, GCS 15 Psych: Cooperative, appropriate mood and affect [facility] Medical History DVT (deep venous thrombosis) Staphylococcus aureus infection Macular degeneration Bilateral pulmonary embolism Depression History of kidney stones Acute calculous cholecystitis Laceration of left index finger Pulmonary emboli Hypoxia Elevated troponin Pulmonary embolism and infarction Fracture of left foot Episode of syncope Fibromyalgia Anxiety Home Medications ?Medication ?Instructions ?Recorded ?Last Taken ?Type hydrocodone 7.5 mg-acetaminophen 1 tab PO TID PRN PRN pain 12/15/23 03/12/24 10:00 History 325 mg tablet levothyroxine 25 mcg tablet 25 mcg PO DAILY thyroid 03/11/24 History cholecalciferol (vitamin D3) 25 25 mcg PO DAILY supple ment 02/23/24 03/06/24 History mcg (1,000 unit) capsule tolterodine 2 mg tablet 4 mg PO BID over active blad gail 05/08/24 Unknown History doxepin 50 mg capsule 50 mg PO QHS 07/18/24 Unknow n History vitamin B complex 1 cap PO QDAY 07/18/24 Unkno wn History apixaban 5 mg (74 tabs) tablets in 5 mg PO UD 12/05/24 Unknown History a dose pack (Eliquis DVT-PE Treat 30D Start) Allergy/AdvReac Type Severity Reaction Status Date / Time No Known Allergies Allergy Verified 12/05/24 08:36 Family History Mother Myocardial infarction Sister Diabetes Cancer Sister No problems noted. Father Cancer Surgical History S/P tonsillectomy S/P appendectomy S/P excision of ganglion cyst History of partial hysterectomy History of cholecystectomy Social History Smoking Status: Never smoker alcohol intake: never substance use type: does not use EXAM Physical Exam Const Vital Signs: 12/05/24 08:32 12/05/24 08:38 12/05/24 09:37 Temperature 98.1 F 97.4 F L Temperature Source Oral Pulse Rate 80 88 Respiratory Rate 19 H 16 Respiratory Effort Normal Non-Labored Respiratory Depth Normal Respiratory Pattern Normal Blood Pressure 180/114 H 166/96 H Blood Pressure Mean 136 119 Pulse Ox 95 96 95 Oxygen Delivery Method Room Air Room Air MDM MDM MDM Narrative Medical decision making narrative: 74-year-old female with past medical history of chronic pain on narcotics, hypothyroidism, history of DVT/PE on Eliquis presents for evaluation after mechanical fall. Patient has yet to take her Eliquis this morning. GCS 15. See physical exam findings. Only injury is a 2 cm scalp laceration with minimal active bleeding. This will need repaired. Patient is up-to-date on tetanus. Differential diagnosis includes but is not limited to scalp laceration, closed head injury, concussion, intracranial bleed. Given patient has no neck pain, low suspicion for cervical spine fracture however given age cannot fully rule out. Patient is requesting her daily narcotic to be given. This was ordered. CT head and neck ordered. Will repair the laceration with karthikeyan. Given this was purely mechanical fall, I do not think any laboratory workup is needed at this time. CT head shows no acute intracranial abnormality. Patient has mild chronic small vessel ischemic changes. CT of the cervical spine shows chronic degenerative changes. No acute traumatic injury. Patient tolerated karthikeyan well. Karthikeyan need to be removed and 10 to 14 days. Follow-up with PCP. Return precautions explained. Patient stable to discharge home. Laceration Repair Indication: Laceration Location: 2 cm left scalp laceration Consent: Risks, benefits, and alternatives discussed with patient and verbal consent obtained Procedure: The area was prepped and draped in the usual sterile fashion. Local anesthesia was achieved using 1% Lidocaine. The wound was copiously irrigated and cleaned. 6 karthikeyan were placed. The estimated blood loss was minimal. The patient tolerated the procedure well without complications. Foreign Material: None Debridement: None Follow-up: Anticipatory guidance, as well as standard post-procedure care, was explained. Return precautions are given. Follow-up visit set for suture removal and evaluation of the laceration. Impression: 1. 2 cm scalp laceration, repaired with karthikeyan 2. Closed head injury on Eliquis 3. Mechanical fall Radiography Diagnostic Testing: Clinical Impression(s) from Imaging Studies Brain CT 12/05/24 08:39 IMPRESSION: CHRONIC CHANGES. NO ACUTE FINDINGS. Reading Location: [facility] 12/05/24 08:39 IMPRESSION: DEGENERATIVE CHANGES OF THE CERVICAL SPINE. NO EVIDENCE OF SIGNIFICANT OSSEOUS CENTRAL CANAL OR NEURAL FORAMINAL STENOSIS. Reading Location: [facility] Discharge Plan Triage Chief Complaint: Fall ED Provider: Dc Francis Dx/Rx/DC Orders Clinical Impression: Laceration of scalp, Closed head injury, Fall Instructions: ED Laceration Scalp Stitches or [place], ED Fall Prevention Prescriptions: No Action cholecalciferol (vitamin D3) 25 mcg (1,000 unit) capsule 25 mcg PO DAILY doxepin 50 mg capsule 50 mg PO QHS vitamin B complex Capsule 1 cap PO QDAY Eliquis DVT-PE Treat 30D Start 5 mg (74 tabs) tablets,dose pack 5 mg PO UD hydrocodone-acetaminophen 7.5-325 mg tablet 1 tab PO TID PRN PRN (Reason: pain) levothyroxine 25 mcg tablet 25 mcg PO DAILY tolterodine 2 mg tablet 4 mg PO BID Rx Instructions: per pt dose recently increased to BID Primary Care Provider: Ed Bowman Chi Referrals: Ed Bowman Chi, MD [Primary Care Provider] - 3-5 Days Activity Restrictions/Additional Instructions: Follow-up with primary care physician. Karthikeyan need to be removed in 10 to 14 days. Print Language: Ukrainian Disposition Disposition: Home, Self Care
[2024-12-05] MEDS: HYDROCODONE/APAP 7.5-325/15ML 15 ML UDC 7.5 ML PO (09:16)
[2024-12-05] MEDS: Lidocaine 1% (20 ml mdv) 20 ML Vial INFILT (09:26)
[2024-12-05 09:37] VITALS: BP 166/96; PULSE 88; RESP 16; TEMP 36.3; O2SAT 95
== END 2024-12-05 09:41 | disposition home or self-care (01) ==
PROVIDERS: Emergency Provider Surgery; PCP Family Medicine Geriatric Medicine; Visit Provider Surgery
DX: S01.01XA Laceration without foreign body of scalp, initial encounter (principal); W01.190A Fall on same level from slipping, tripping and stumbling with subsequent striking against furniture, initial encounter; E03.9 Hypothyroidism, unspecified; F41.9 Anxiety disorder, unspecified; F32.A Depression, unspecified; M79.7 Fibromyalgia; G89.29 Other chronic pain; Z79.01 Long term (current) use of anticoagulants; Z86.711 Personal history of pulmonary embolism; Z86.718 Personal history of other venous thrombosis and embolism; Z79.899 Other long term (current) drug therapy; Z79.890 Hormone replacement therapy; Z79.891 Long term (current) use of opiate analgesic
CPT/HCPCS: 12001; 70450; 72125; 99284; A4216

== ENCOUNTER → 2024-12-11 | Outpatient (CLI) | payer MEDICARE, SELFPAY ==
[2024-12-11 17:35] LABS: Absolute Lymphocyte Count 3.11 X10^3/uL (0.83-4.51); Absolute Neutrophil Count 5.8 X10^3/uL (2.0-7.7); Eosinophil# 0.13 X10^3/uL; Eosinophils% 1.3 % (0-5); Hematocrit 42.5 % (37-47); Hemoglobin 13.9 g/dL (12.0-15.0); Lymphocyte # 3.11 X10^3/ul (0.83-4.51); Lymphocyte % 30.2 % (19-41); Mean Corp Hgb Conc 32.7 g/dL (32-36); Mean Corpuscular Hgb 30.5 pg (27.0-32.0); Mean Corpuscular Volume 93.2 fL (81-99); Mean Platelet Vol. 9.6 fl (6.2-12.0); Monocyte# 0.96 X10^3/uL; Monocyte% 9.3 % (0-10); NRBC Flagged by Analyzer 0 % (0-5); Neutrophil # 5.79 X10^3/uL (2.7-7.7); Neutrophil % 56.3 % (47-70); Platelet Count 289 K/mm3 (150-450); RBC Distribution Width CV 13.6 % (11.6-14.6); RBC Distribution Width SD 46.5 fl (35.1-43.9); Red Blood Count 4.56 M/mm3 (4.2-5.4); White Blood Count 10.3 K/mm3 (4.4-11.0)
[2024-12-11 17:40] LABS: Prothrombin Time (Protime)PT. 13.1 SECONDS (11.7-14.9)
[2024-12-11 18:29] LABS: ALB/GLOB Ratio 1.4 RATIO (0.9-2.4); AST(SGOT) 22 U/L (<=31); Alanine Aminotransfer ALT/SGPT 16 U/L (<=34); Albumin, Serum 3.8 g/dL (3.4-4.8); Alkaline Phosphatase 99 U/L (35-104); Anion Gap 12 (5-15); BUN 26 mg/dL (4-19); BUN/Creat Ratio 36.6 RATIO (10-20); Calcium,Total 9.2 mg/dL (7.6-11.0); Carbon Dioxide 22.7 mmol/L (21.0-32.0); Chloride 110 mmol/L (98-108); Cholesterol 211 mg/dL (<=200); Creatinine, Serum 0.71 mg/dL (0.70-1.20); EST Glomerular Filtration Rate 88 (>60); Globulin 2.6 g/dL (2.2-4.2); Glucose 128 mg/dL (70-99); High Density Lipoprotein 42 mg/dL; Low Density Lipoprotein Calc. 114 mg/dL; Potassium 3.9 mmol/L (3.3-5.1); Protein, Total 6.4 g/dL (5.9-8.4); Sodium Level 144 mmol/L (133-145); Total Bilirubin 0.21 mg/dL (0.00-1.30); Triglycerides 279 mg/dL; Very Low Density Lipoprotein 56 mg/dL (5-40); Vitamin D,25 Hydroxy 28.4 ng/mL (30-100); cholesterol:hdl ratio screen 5.08
== END | disposition home or self-care (01) ==
LOC: LAB 15:40
PROVIDERS: PCP Family Medicine Geriatric Medicine; Referring Provider Family Medicine Geriatric Medicine; Visit Provider Family Medicine Geriatric Medicine
DX: E78.5 Hyperlipidemia, unspecified (principal); T14.8XXA Other injury of unspecified body region, initial encounter; E03.9 Hypothyroidism, unspecified; E55.9 Vitamin D deficiency, unspecified
CPT/HCPCS: 36415; 80053; 80061; 82306; 84443; 85025; 85610; 85730

== ENCOUNTER → 2024-12-12 | Outpatient (CLI) | payer MEDICARE, SELFPAY ==
--- NOTE | 2024-12-12 11:05 | CT_ITS ---
PROCEDURE: BRAIN/HEAD WITHOUT CONTRAST 12/12/2024 REASON FOR EXAM: INJURY OF HEAD TECHNIQUE: Head CT without intravenous contrast. Coronal and Sagittal reconstruction series were provided. One or more dose reduction techniques were used (e.g., Automated exposure control, adjustment of the mA and/or kV according to patient size, use of iterative reconstruction technique. RADIATION DOSE SUMMARY: CTDlvol: 44.99 mGy DLP: 796.11 mGycm COMPARISON: CT head without contrast, 12/05/2024. FINDINGS: There is mild diffuse cerebral atrophy with concomitant ventriculomegaly. There is patchy low-density of the periventricular white matter consistent with chronic ischemic white matter disease. There is no evidence of acute intracranial hemorrhage or infarction. There are no abnormal intracranial masses or mass effects. The basilar cisterns are unremarkable. There is calcific vascular disease of the intracranial portion of both internal carotid arteries, the right vertebral artery and the basilar artery. The skull base and calvarium are normal. There is thickening of the dodd of the frontal, sphenoid and bilateral maxillary sinuses suggesting chronic sinusitis. There is mucoperiosteal thickening of the frontal sinuses multiple ethmoidal air cells, the maxillary sinuses and the right sphenoid sinus. The paranasal sinuses and mastoid air cells are unremarkable. The intraorbital contents are normal. There are multiple skin lance in the left frontal scalp region, consistent with laceration closure. CT/Brain/Head without Contrast IMPRESSION: 1. No evidence of acute intracranial pathology. 2. Mild cerebral atrophy. 3. Other findings as noted. No significant change. Reading Location: [id number]
--- OUTSIDE RECORDS SUMMARY | 2024-12-12 21:20 | XMS RPT_ITS | CCD ---
Author Organization [facility] Care Team Providers Care Digital Community Manager Name Role Phone Colby CUENCA, Dr. Ed Michaud Primary Care Provider [phone] Gerson CUENCA, Chance Attending Provider Gerson CUENCA, Chance Emergency Provider Colby CUENCA, Dr. Ed Michaud Referring Provider Jazlyn CUENCA, Dr. Damon Attending Provider [phone] Jazlyn CUENCA, Dr. Damon Referring Provider [phone] Colby CUENCA, Dr. Ed Michaud Attending Provider Nat MARIA, Roxana Attending Provider Roxana Pandya Referring Provider Renee CUENCA, Dr. Gunderson Attending Provider [phone] Samia Pelaez DO Emergency Provider Colby CUENCA, Dr. Ed Michaud Primary Care Provider Colby CUENCA, Dr. Ed Michaud Referring Provider Roxana Pandya Attending Provider Colby CUENCA, Dr. Ed Michaud Attending Provider Dr. Samia Pelaez DO Attending Provider [phone] Samia Pelaez DO Emergency Provider [phone] Nelson Hobson MD Attending Provider [phone] Jazlyn CUENCA, Dr. Damon Referring Provider [phone] Yue Gonzalez DO Emergency Provider Colby CUENCA, Dr. Ed Michaud Attending Provider Colby CUENCA, Dr. Ed Michaud Referring Provider Colby, Ed Chi Referring Unavailable Colby, Ed Chi Attending Unavailable Colby , Dr. Ed Michaud Primary Care Provider Colby CUENCA, Dr. Ed Michaud Referring Provider Lisa KELLOGG, Dr. Turner Attending Provider Jazlyn CUENCA, Dr. Damon Referring Provider [phone] Christophe CUENCA, Dr. Dempsey Attending Provider Oswald KELLOGG, Dr. Davis Emergency Provider Oswald KELLOGG, Dr. Davis Attending Provider Christophe CUENCA, Dr. Dempsey Referring Provider [facility] , Dr. Irwin Emergency Provider Nelson Carr Admitting Unavailable [place], Neptali Consulting Unavailable Colby, Ed Chi Primary Care Unavailable Bi, Dayday Attending Unavailable AgNelson saldaña Consulting Unavailable Warren Terry Admitting Unavailable Warren Terry Consulting Unavailable Colby, Ed Chi Primary Care Unavailable Alf Asencio Attending Unavailable Colby, Ed Chi Primary Care Unavailable Ayaan Barnes Consulting Unavailable Ayaan Barnes Attending Unavailable Nelson Carr Admitting Unavailable Bi, Dayday Referring Unavailable ReneeNeptali mendez Consulting Unavailable AgyeponNelson alvarado Consulting Unavailable Bi, Dayday Consulting Unavailable Colby, Ed Chi Attending Unavailable Colby, Ed Chi Referring Unavailable Colby, Ed Chi Primary Care Unavailable Colby, Ed Chi Primary Care Unavailable Colby, Ed Chi Attending Unavailable Colby, Ed Chi Referring Unavailable Colby, Ed Chi Primary Care Unavailable PraNelson martinez Attending Unavailable Nelson Hobson Referring Unavailable Colby, Ed Chi Primary Care Unavailable Ke Saeed Referring Unavailable Ke Saeed Attending Unavailable Colby, Ed Chi Primary Care Unavailable Colby, Ed Chi Referring Unavailable PraNelson martinez Attending Unavailable Johns, Roxana Referring Unavailable Johns, Roxana Attending Unavailable Colby, Ed Chi Primary Care Unavailable Colby, Ed Chi Referring Unavailable Colby, Ed Chi Attending Unavailable Colby, Ed Chi Primary Care Unavailable Colby, Ed Chi Attending Unavailable Colby, Ed Chi Primary Care Unavailable Colby, Ed Chi Primary Care Unavailable Colby, Ed Chi Referring Unavailable Colby, Ed Chi Attending Unavailable Colby, Ed Chi Primary Care Unavailable Colby, Ed Chi Referring Unavailable Colby, Ed Chi Attending Unavailable Colby, Ed Chi Primary Care Unavailable Colby, Ed Chi Attending Unavailable Colby, Ed Chi Primary Care Unavailable Yue Gonzalez Attending Unavailable Colby, Ed Chi Primary Care Unavailable Chance Nieto Attending Unavailable JohnsRoxana arana Attending Unavailable Colby, Ed Chi Primary Care Unavailable Colby, Ed Chi Referring Unavailable Colby, Ed Chi Primary Care Unavailable Ke Saeed Attending Unavailable Colby, Ed Chi Referring Unavailable Colby, Ed Chi Primary Care Unavailable Nelson Hobson Attending Unavailable Colby, Ed Chi Referring Unavailable Colby, Ed Chi Referring Unavailable Romy Osborne Attending Unavailable Colby, Ed Chi Primary Care Unavailable Dayday Pat Attending Unavailable Neptali Duran Attending Unavailable Johns, Roxana Referring Unavailable Colby, Ed Chi Primary Care Unavailable Neptali Duran Attending Unavailable Warren Terry Referring Unavailable Robert Wheeler Attending Unavailable Colby, Ed Chi Primary Care Unavailable Warren Terry Referring Unavailable ReneeNeptali mendez Attending Unavailable Colby, Ed Chi Primary Care Unavailable Simona Mo Attending Unavailable Colby, Ed Chi Primary Care Unavailable Roxana Johns Attending Unavailable Warren Terry Consulting Unavailable Alf Asencio Attending Unavailable Warren Terry Admitting Unavailable Colby, Ed Chi Primary Care Unavailable Alf Asencio Consulting Unavailable Warren Terry Attending Unavailable Colby, Ed Chi Referring Unavailable Michael Ferrari Attending Unavailable Colby, Ed Chi Primary Care Unavailable Robert Wheeler Attending Unavailable Colby, Ed Chi Primary Care Unavailable Colby, Ed Chi Primary Care Unavailable Colby, Ed Chi Referring Unavailable Roxana Johns Attending Unavailable Nelson Carr Referring Unavailable Nelson Carr Attending Unavailable Colby, Ed Chi Primary Care Unavailable Nelson Hobson Attending Unavailable Colby, De Chi Referring Unavailable Colby, Ed Chi Attending Unavailable Colby, Ed Chi Primary Care Unavailable Colby, Ed Chi Primary Care Unavailable Colby, Ed Chi Attending Unavailable Colby, Ed Chi Referring Unavailable Colby, Ed Chi Referring Unavailable Colby, Ed Chi Attending Unavailable Colby, Ed Chi Primary Care Unavailable Colby, Ed Chi Primary Care Unavailable Colby, Ed Chi Referring Unavailable Colby, Ed Chi Attending Unavailable Colby, Ed Chi Primary Care Unavailable Dc Francis Attending Unavailabl e Colby, Ed Chi Primary Care Unavailable Nelson Hobson Referring Unavailable Nelson Hobson Attending Unavailable Colby, Ed Chi Attending Unavailable Colby, Ed Chi Primary Care Unavailable Colby, Ed Chi Primary Care Unavailable Samia Pelaez Attending Unavailable Colby, Ed Chi Primary Care Unavailable Colby, Ed Chi Attending Unavailable Alcon Prieto Attending Unavailable Colby, Ed Chi Primary Care Unavailable Colby, Ed Chi Primary Care Unavailable Ryan Akers Attending Unavailable Medications Current Medications Medication Drug Class(es) Dates Sig (Normalized) Sig (Original) acetaminophen 325 mg / HYDROcodone bitartrate 7.5 mg oral tablet (20 sources) Opioid Agonist Start: 12-15-2023 Hydrocodone-Acetam inophen 7.5-325 mg tablet Active 1 {tbl} PO 3 TIMES DAILY NEEDED as needed for pain December 15, 2023 12:00am Start: 12-22-2019 End: 12-27-2019 Hydrocodone-Acetaminophen 1 EACH tablet Discontinued 1 NMA PO EVERY 8 HOURS as needed for Pain Score 6-10/10 15 5 December 22, 2019 December 26, 2019 12:00am December 27, 2019 12:02am Start: 12-22-2019 End: 12-27-2019 Hydrocodone-Acetaminophen Di scontinued 1 EACH PO EVERY 8 HOURS 15 5 December 22, 2019 December 26, 2019 11:02pm Start: 10-12-2017 End: 02-23-2024 Hydrocodone-Acetaminophen (N orco) 1 EACH tablet Discontinued 1 NMA PO EVERY 6 HOURS NEEDED as needed for Pain October 12, 2017 12:00am February 23, 2024 1:30pm apixaban 5 mg oral tablet (14 sources) Factor Xa Inhibitor Start: 12-05-2024 Apixaban ( Apixaban 5 Mg (74 Tabs) Tablets In A Dose Pack) 5 mg (74 tabs) tablets,dose pack Active 5 mg PO DIRECTED December 05, 2024 12:00am Start: 03-16-2024 End: 11-20-2024 take 2 tablets by mouth twice daily, then take 1 tablet by mouth twice daily in the morning Apixaban (Eliquis Dvt-Pe Treat 30d Start) 5 mg (74 tabs) tablets,dose pack Discontinued 5 mg PO TWICE A DAY March 16, 2024 8:28am November 20, 2024 2:48pm 10 mg twice daily for 1 week to 03/22/2024 and then transition to 5 mg twice daily on 03/23/2024 at 10 AM. Start: 12-16-2023 End: 03-16-2024 take 1 tablet by mouth twice daily Apixaban (Eliquis Dvt-Pe Treat 30d Start) 5 mg (74 tabs) tablets,dose pack Discontinued 5 mg PO TWICE A DAY December 16, 2023 12:00am March 16, 2024 8:28am cholecalciferol 0.025 mg oral capsule (6 sources) Vitamin D Start: 02-23-2024 take 1 capsule by mouth once daily Cholecalciferol (Vitamin D3) 25 mcg (1,000 unit) capsule Active 25 ug PO DAILY February 23, 2024 12:00am doxepin hydrochloride 50 mg oral capsule (20 sources) Tricyclic Antidepressant Start: 07-18-2024 take 1 capsule by mouth at bedtime Doxepin 50 mg capsule Active 50 mg PO AT BEDTIME July 18, 2024 1:00am Start: 12-15-2023 End: 02-23-2024 take 1 capsule by mouth at bedtime Doxepin 50 mg capsule Discontinued 50 mg PO AT BEDTIME December 15, 2023 12:00am February 23, 2024 1:31pm Start: 04-27-2022 End: 04-28-2022 take 2 capsules by mouth at bedtime Doxepin 50 mg Capsule Discontinued 100 mg PO AT BEDTIME April 27, 2022 12:00am April 28, 2022 2:17pm Start: 04-27-2022 End: 04-28-2022 take 100 mg by mouth at bedtime Doxepin Discontinued 1 00 MG PO AT BEDTIME April 26, 2022 11:00pm April 28, 2022 1:17pm DULoxetine 20 mg delayed release oral capsule (3 sources) Serotonin and Norepinephrine Reuptake Inhibitor Start: 10-12-2017 take 60 mg by mouth twice daily Duloxetine Active 60 MG PO TWICE A DAY October 12, 2017 8:42pm levothyroxine sodium 0.025 mg oral tablet (6 sources) l-Thyroxine Start: 12-15-2023 take 1 tablet by mouth once daily Levothyroxine 25 mcg tablet Active 25 ug PO DAILY December 15, 2023 12:00am thyroid (skilled nursing) 15 mg oral tablet (6 sources) Start: 04-27-2022 take 1 tablet by mouth once daily Thyroid (Pork) (Mine Expert Thyroid) 15 mg Tablet Active 15 MG PO DAILY April 26, 2022 11:00pm tolterodine tartrate 2 mg oral tablet (12 sources) Cholinergic Muscarinic Antagonist Start: 12-15-2023 End: 05-08-2024 Tolterodine 2 mg tablet Active 4 mg PO TWICE A DAY May 08, 2024 12:59pm per pt dose recently increased to BID Vitamin B Complex capsule (6 sources) Start: 07-18-2024 Vitamin B Complex capsule Active 1 NMA PO daily July 18, 2024 1:00am Start: 07-18-2024 Vitamin B Comp madelyn capsule Discontinued 1 NMA PO daily July 18, 2024 1:00am Start: 07-18-2024 Vitamin B Comp madelyn capsule Discontinued 1 NMA PO daily July 18, 2024 12:00am Completed/Discontinued Medications Medication Drug Class(es) Dates Sig (Normalized) Sig (Original) ascorbic acid 500 mg oral tablet (6 sources) Vitamin C Start: 03-16-2024 End: 05-08-2024 take 1 tablet by mouth twice daily Ascorbic Acid (Vitamin C) 500 mg tablet Discontinued 500 mg PO TWICE A DAY 60 March 16, 2024 12:00am May 08, 2024 12:58pm baclofen 10 mg oral tablet (6 sources) gamma-Aminobutyr ic Acid-ergic Agonist Start: 02-23-2024 End: 03-12-2024 take 1 tablet by mouth once daily Baclofen 10 mg tablet Discontinued 10 mg PO daily February 23, 2024 12:00am March 12, 2024 5:45pm busPIRone hydrochloride 10 mg oral tablet (18 sources) Start: 02-23-2024 End: 05-08-2024 take 1 tablet by mouth three times daily Buspirone 10 mg tablet Discontinued 10 mg PO THREE TIMES A DAY February 23, 2024 1:31pm May 08, 2024 12:58pm Start: 04-27-2022 End: 02-23-2024 take 2 tablets by mouth three times daily Buspirone 10 mg Tablet Discontinued 20 mg PO THREE TIMES A DAY April 27, 2022 12:00am February 23, 2024 1:32pm Start: 04-27-2022 take 20 mg by mouth three times daily Buspirone Active 20 MG PO THREE TIMES A DAY April 26, 2022 11:00pm cephalexin 500 mg oral capsule (7 sources) Cephalosporin Antibacterial Start: 11-05-2024 End: 11-20-2024 take 1 capsule by mouth three times daily Cephalexin 500 mg capsule Discontinued 500 mg PO THREE TIMES A DAY 29 01November 05, 2024 12:00am November 20, 2024 2:48pm Start: 02-21-2021 take 500 mg by mouth every six hours Cephalexin Active 500 MG PO EVERY 6 HOURS February 21, 2021 12:29pm ferrous sulfate 325 mg oral tablet (6 sources) Start: 03-16-2024 End: 05-08-2024 take 1 tablet by mouth every other day Ferrous Sulfate 325 mg (65 mg iron) tablet Discontinued 325 mg PO EVERY OTHER DAY March 16, 2024 12:00am May 08, 2024 12:58pm gabapentin 300 mg oral capsule (9 sources) Anti-epilepti c Agent Start: 02-23-2024 End: 03-12-2024 take 1 capsule by mouth once daily Gabapentin 300 mg capsule Discontinued 300 mg PO daily February 23, 2024 12:00am March 12, 2024 5:47pm Start: 10-12-2017 take 800 mg by mouth at bedtim e Gabapentin Active 800 MG PO AT BEDTIME October 12, 2017 8:42pm omeprazole 40 mg delayed release oral capsule (6 sources) Proton Pump Inhibitor Start: 03-02-2024 End: 11-20-2024 take 1 capsule by mouth once daily in the evening Omeprazole 40 mg capsule,delayed release(DR/EC) Discontinued 40 mg PO daily March 02, 2024 12:00am November 20, 2024 2:49pm swallow whole; do not crush, chew, dissolve, cut, break--take in PM or 2 hrs after levothyroxine PARoxetine hydrochloride 40 mg oral tablet (12 sources) Serotonin Reuptake Inhibitor Start: 04-27-2022 End: 03-12-2024 take 1 tablet by mouth once daily Paroxetine Hcl 40 mg Tablet Discontinued 40 mg PO DAILY April 27, 2022 12:00am March 12, 2024 5:49pm potassium chloride 20 meq extended release oral tablet (12 sources) Start: 07-18-2024 End: 11-20-2024 take 1 tablet by mouth once daily Potassium Chloride 20 mEq tablet extended release Discontinued 20 meq PO daily July 18, 2024 1:00am November 20, 2024 2:49pm Start: 06-05-2024 End: 06-12-2024 take 1 tablet by mouth twice daily Potassium Chloride 20 mEq tablet extended release Discontinued 20 meq PO TWICE A DAY 22 01June 05, 2024 1:00am June 11, 2024 1:00am June 12, 2024 1:08am predniSONE 20 mg oral tablet (6 sources) Start: 01-10-2024 End: 02-23-2024 take 2 tablets by mouth once daily Prednisone 20 mg tablet Discontinued 40 mg PO DAILY 14 January 10, 2024 12:00am February 23, 2024 1:32pm Thyroid (Pork) (Mine Expert Thyroid) 15 mg Tablet (6 sources) Start: 04-27-2022 End: 02-23-2024 take 1 tablet by mouth once daily Thyroid (Pork) (Mine Expert Thyroid) 15 mg Tablet Discontinued 15 mg PO DAILY April 27, 2022 12:00am February 23, 2024 1:32pm Start: 04-27-2022 End: 02-23-2024 take 1 tablet by mouth once daily Thyroid (Pork) (Mine Expert Thyroid) 15 mg Tablet Discontinued 15 mg PO DAILY April 26, 2022 11:00pm February 23, 2024 12:32pm Problems Active Problems Problem Classification Problem Date Documented Da te Episodic/Chronic Aortic and peripheral arterial embolism or thrombosis (14 sources) Thromboembolic disorder; Translations: [Embolism and thrombosis of unspecified artery] Onset: 06-05-2024 05-08-2024 Chronic Comment on above: D-dimers are normal today. She wants to stop Eliquis since she has been on it for 6 months and she has loose stools with it. Biliary tract disease (15 sources) Acute cholecystitis due to biliary calculus; Translations: [Calculus of gallbladder with acute cholecystitis without obstruction] 12-21-2019 Episodic Calculus of urinary tract (15 sources) History of calculus of kidney; Translations: [Personal history of urinary calculi] 12-21-2019 Episodic Diabetes mellitus without complication (1 source) Other abnormal glucose; Translations: [Other abnormal glucose] Onset: 09-22-2024 Episodic Diseases of white blood cells (13 sources) Neutrophilia; Translations: [Other elevated white blood cell count] Onset: 03-31-2024 03-18-2024 Chronic Disorders of lipid metabolism (1 source) Hyperlipidemia, unspecified; Translations: [Hyperlipidemia, unspecified] Onset: 01-19-2024 Chronic E Codes: Fall (17 sources) Fall; Translations: [Unspecified fall, initial encounter] 12-14-2023 Episodic Fluid and electrolyte disorders (6 sources) Lactic acidosis; Translations: [Lactic acidosis] 03-12-2024 Episodic Malaise and fatigue (2 sources) Weakness; Translations: [Other fatigue] Onset: 03-14-2024 Episodic Mood disorders (19 sources) Depressive disorder; Translations: [Depression] 12-21-2019 Chronic Nutritional deficiencies (1 source) Vitamin D deficiency, unspecified; Translations: [Vitamin D deficiency, unspecified] Onset: 12-11-2024 Chronic Open wounds of extremities (15 sources) Laceration of left index finger; Translations: [Laceration without foreign body of left index finger without damage to nail, initial encounter] 02-21-2021 Episodic Open wounds of head; neck; and trunk (6 sources) Tear of skin; Translations: [Open wound(s) (multiple) of unspecified site(s), without mention of complication] 11-05-2024 Episodic Other acquired deformities (6 sources) Lumbar spondylolisthesis; Translations: [Spondylolisthesis, lumbar region] 02-24-2024 Episodic Other aftercare (9 sources) Long-term current use of anticoagulant; Translations: [intermediate frame tender (current) use of anticoagulants] 01-18-2024 Episodic Other connective tissue disease (15 sources) Fibromyalgia; Translations: [Fibromyalgia] 12-21-2019 Episodic Other gastrointestinal disorders (8 sources) Loose stool; Translations: [Other fecal abnormalities] 06-05-2024 Episodic Other gastrointestinal disorders (6 sources) Occult blood in stools; Translations: [Other fecal abnormalities] 02-24-2024 Episodic Other injuries and conditions due to external causes (14 sources) Closed injury of head; Translations: [Unspecified injury of head, initial encounter] 09-16-2024 Episodic Other injuries and conditions due to external causes (3 sources) Injury of head; Translations: [Unspecified injury of head, initial encounter] 11-26-2024 Episodic Other injuries and conditions due to external causes (2 sources) Unspecified injury of head, initial encounter; Translations: [Unspecified injury of head, initial encounter] Onset: 11-30-2024 Episodic Other injuries and conditions due to external causes (1 source) Other injury of unspecified body region, initial encounter; Translations: [Other injury of unspecified body region, initial encounter] Onset: 12-11-2024 Episodic Other lower respiratory disease (6 sources) Hypoxia; Translations: [Hypoxemia] 02-23-2024 Episodic Other lower respiratory disease (6 sources) Acute respiratory distress; Translations: [Acute respiratory distress] 03-18-2024 Episodic Other nervous system disorders (1 source) Other chronic pain; Translations: [Other chronic pain] Onset: 03-31-2024 Chronic Other non-traumatic joint disorders (1 source) Pain in right shoulder; Translations: [Pain in right shoulder] Onset: 11-11-2024 Episodic Other nutritional; endocrine; and metabolic disorders (6 sources) Body mass index 30+ - obesity; Translations: [Obesity, unspecified] 12-14-2023 Chronic Other nutritional; endocrine; and metabolic disorders (1 source) Obesity, unspecified; Translations: [Obesity, unspecified] Onset: 12-21-2023 Chronic Other screening for suspected conditions (not mental disorders or infectious disease) (8 sources) Raised cardiac enzyme or marker; Translations: [Other specified abnormal findings of blood chemistry] Onset: 12-21-2023 02-23-2024 Episodic Phlebitis; thrombophlebitis and thromboembolism (3 sources) Deep venous thrombosis; Translations: [Acute embolism and thrombosis of unspecified deep veins of unspecified lower extremity] 11-20-2024 Episodic Comment on above: Left lower extremity March 2024 Pulmonary heart disease (2 sources) Saddle embolus of pulmonary artery without acute cor pulmonale; Translations: [Other pulmonary embolism with acute cor pulmonale] Onset: 04-09-2024 Chronic Screening and history of mental health and substance abuse codes (1 source) Finding of other psychotropic drug in blood; Translations: [Finding of other psychotropic drug in blood] Onset: 12-11-2024 Episodic Skin and subcutaneous tissue infections (1 source) Cellulitis of right upper limb; Translations: [Cellulitis of right upper limb] Onset: 11-24-2024 Episodic Sprains and strains (9 sources) Strain of neck muscle; Translations: [Strain of muscle, fascia and tendon at neck level, initial encounter] 06-12-2024 Episodic Syncope (12 sources) Syncope; Translations: [Syncope and collapse] 05-06-2022 Episodic Thyroid disorders (1 source) Hypothyroidism, unspecified; Translations: [Hypothyroidism, unspecified] Onset: 12-11-2024 Chronic Unclassified (2 sources) Low back pain, unspecified; Translations: [Low back pain, unspecified] Onset: 02-24-2024 Unclassified (1 source) Acidosis, unspecified; Translations: [Acidosis, unspecified] Onset: 03-31-2024 Past or Other Problems Problem Classification Problem Date Documented Da te Episodic/Chronic Fracture of lower limb (14 sources) Fracture of foot ; Translations: [Unspecified fracture of unspecified foot, initial encounter for closed fracture] Onset: 12-21-2023 12-14-2023 Episodic Other aftercare (1 source) intermediate frame tender (current) use of anticoagulants; Translations: [intermediate frame tender (current) use of anticoagulants] Onset: 06-05-2024 Episodic Other connective tissue disease (1 source) Other specified soft tissue disorders; Translations: [Other specified soft tissue disorders] Onset: 08-03-2024 Episodic Other connective tissue disease (1 source) Fibromyalgia; Translations: [Fibromyalgia] Onset: 03-31-2024 Episodic Other connective tissue disease (1 source) Pain in right foot; Translations: [Pain in right foot] Onset: 02-25-2024 Episodic Other gastrointestinal disorders (1 source) Other fecal abnormalities; Translations: [Other fecal abnormalities] Onset: 07-10-2024 Episodic Other lower respiratory disease (1 source) Acute respiratory distress; Translations: [Acute respiratory distress] Onset: 03-31-2024 Episodic Other lower respiratory disease (1 source) Hypoxemia; Translations: [Hypoxemia] Onset: 12-21-2023 Episodic Other non-traumatic joint disorders (1 source) Pain in left knee; Translations: [Pain in left knee] Onset: 07-17-2024 Episodic Pulmonary heart disease (20 sources) Pulmonary embolism with pulmonary infarction; Translations: [Other pulmonary embolism without acute cor pulmonale] Onset: 03-31-2024 04-01-2024 Episodic Comment on above: s/p percutaneous mec hanical thrombectomy, right pulmonary artery on 03/15/24 via R femoral access December 2023 then 2023 when she came off anticoagulation to allow an invasive procedure.s/p percutaneous mechanical thrombectomy, right pulmonary artery on 03/15/24 via R femoral access Respiratory failure; insufficiency; arrest (adult) (7 sources) Acute respiratory failure; Translations: [Acute respiratory failure with hypoxia] Onset: 03-31-2024 03-18-2024 Episodic Spondylosis; intervertebral disc disorders; other back problems (20 sources) Lumbar radiculopathy; Translations: [Radiculopathy, lumbar region] Onset: 01-25-2024 01-18-2024 Episodic Urinary tract infections (5 sources) Acute urinary tract infection; Translations: [Urinary tract infection, site not specified] Onset: 06-05-2024 11-05-2024 Episodic Results Test Name Value Interpretation Reference Range Facility Brain/Head without Contrasto n 12-12-2024 Brain/Head without Contrast Normal [facility] CBC W/Diff, Automatedon 06-0 Absolute Lymph 3.11 X10 3/uL Normal 0.83-4.51 [facility] Comment on above: Performed By: #### L [id number], [id number], L300.4310, L506.1001, L300.3900, L100.0100, L500.4050 ####[facility] [id number] [place], [address] Absolute Neut 5.8 X10 3/uL Normal 2.0-7.7 [facility] Comment on above: Performed By: #### L [id number], L500.4100, L300.4310, L506.1001, L300.3900, L100.0100, L500.4050 ####[facility] [id number] [place], [address] Basophils/100 WBC (Bld) 1.0 % Normal 0-1 [facility] Comment on above: Performed By: #### L [id number], [id number], L300.4310, L506.1001, L300.3900, L100.0100, L500.4050 ####[facility] [id number] [place], [address] Eosinophils/100 WBC (Bld) 1.3 % Normal 0-5 [facility] Comment on above: Performed By: #### L [id number], [id number], L300.4310, L506.1001, L300.3900, L100.0100, L500.4050 ####[facility] [id number] [place], [address] Erythrocyte distribution width (RBC) [Ratio] 13.6 % Normal 11.6-14.6 [facility] Comment on above: Performed By: #### L [id number], [id number], [id number], L506.1001, L300.3900, L100.0100, L500.4050 ####[facility] [id number] [place], [place], [address] Hematocrit (Bld) [Volume fraction] 42.5 % Normal 37-47 [facility] Comment on above: Performed By: #### L 501.9520, L500.4100, L300.4310, L506.1001, L300.3900, L100.0100, L500.4050 ####[facility] [address] [place], [address] Hemoglobin (Bld) [Mass/Vol] 13.9 g/dL Normal 12.0-15.0 [facility] Comment on above: Performed By: #### L 501.9520, L500.4100, L300.4310, L506.1001, L300.3900, L100.0100, L500.4050 ####[facility] [address] [place], [address] IG% 1.900 High 0.0-0.9 [facility] Comment on above: Result Comment: IG% - Immature Granulocytes (promyelocytes, myelocytes andmetamyelocytes) > 1% indicates that a LEFT SHIFT is Present. Performed By: #### L 501.9520, L500.4100, L300.4310, L506.1001, L300.3900, L100.0100, L500.4050 ####[facility] [address] [place], [address] Lymphocytes/100 WBC (Bld) 30.2 % Normal 19-41 [facility] Comment on above: Performed By: #### L 501.9520, L500.4100, L300.4310, L506.1001, L300.3900, L100.0100, L500.4050 ####[facility] [address] [place], [address] MCH (RBC) [Entitic mass] 30.5 pg Normal 27.0-32.0 [facility] Comment on above: Performed By: #### L 501.9520, L500.4100, L300.4310, L506.1001, L300.3900, L100.0100, L500.4050 ####[facility] [address] [place], [address] MCHC (RBC) [Mass/Vol] 32.7 g/dL Normal 32-36 [facility] Comment on above: Performed By: #### L 501.9520, L500.4100, L300.4310, L506.1001, L300.3900, L100.0100, L500.4050 ####[facility] [address] [place], [address] MCV (RBC) [Entitic vol] 93.2 fL Normal 81-99 [facility] Comment on above: Performed By: #### L 501.9520, L500.4100, L300.4310, L506.1001, L300.3900, L100.0100, L500.4050 ####[facility] [address] [place], [address] Monocytes/100 WBC (Bld) 9.3 % Normal 0-10 [facility] Comment on above: Performed By: #### L 501.9520, L500.4100, L300.4310, L506.1001, L300.3900, L100.0100, L500.4050 ####[facility] [address] [place], [address] Neutrophils/100 WBC (Bld) 56.3 % Normal 47-70 [facility] Comment on above: Performed By: #### L 501.9520, L500.4100, L300.4310, L506.1001, L300.3900, L100.0100, L500.4050 ####[facility] [address] [place], [address] Nucleated RBC (Bld) [#/Vol] 0 10*3/uL Normal 0-5 [facility] Comment on above: Performed By: #### L 501.9520, L500.4100, L300.4310, L506.1001, L300.3900, L100.0100, L500.4050 ####[facility] [address] [place], [address] Platelet mean volume (Bld) [Entitic vol] 9.6 fL Normal 6.2-12.0 [facility] Comment on above: Performed By: #### L 501.9520, L500.4100, L300.4310, L506.1001, L300.3900, L100.0100, L500.4050 ####[facility] [address] [place], [address] Platelets (Bld) [#/Vol] 289 10*3/uL Normal 150-450 [facility] Comment on above: Performed By: #### L 501.9520, L500.4100, L300.4310, L506.1001, L300.3900, L100.0100, L500.4050 ####[facility] [address] [place], [address] RBC (Bld) [#/Vol] 4.56 10*6/uL Normal 4.2-5.4 [facility] Comment on above: Performed By: #### L 501.9520, L500.4100, L300.4310, L506.1001, L300.3900, L100.0100, L500.4050 ####[facility] [address] [place], [address] RDW SD 46.5 fl High 35.1-43.9 [facility] Comment on above: Performed By: #### L 501.9520, L500.4100, L300.4310, L506.1001, L300.3900, L100.0100, L500.4050 ####[facility] [address] [place], [address] WBC (Bld) [#/Vol] 10.3 10*3/uL Normal 4.4-11.0 [facility] Comment on above: Performed By: #### L 501.9520, L500.4100, L300.4310, L506.1001, L300.3900, L100.0100, L500.4050 ####[facility] [address] [place], [address] Comprehensive Metabolic Prof ilon 12-11-2024 Albumin [Mass/Vol] 3.8 g/dL Normal 3.4-4.8 [facility] Comment on above: Performed By: #### L 501.9520, L500.4100, L300.4310, L506.1001, L300.3900, L100.0100, L500.4050 ####[facility] [address] [place], [address] Albumin/Globulin [Mass ratio] 1.4 {ratio} Normal 0.9-2.4 [facility] Comment on above: Performed By: #### L 501.9520, L500.4100, L300.4310, L506.1001, L300.3900, L100.0100, L500.4050 ####[facility] [address] [place], [place], [id number] ALK PHOS 99 U/L Normal 35-104 [facility] Comment on above: Performed By: #### L 501.9520, L500.4100, L300.4310, L506.1001, L300.3900, L100.0100, L500.4050 ####[facility] [address] [place], [address] ALT [Catalytic activity/Vol] 16 U/L Normal <=34 [facility] Comment on above: Performed By: #### L 501.9520, L500.4100, L300.4310, L506.1001, L300.3900, L100.0100, L500.4050 ####[facility] [address] [place], [address] AST [Catalytic activity/Vol] 22 U/L Normal <=31 [facility] Comment on above: Performed By: #### L 501.9520, L500.4100, L300.4310, L506.1001, L300.3900, L100.0100, L500.4050 ####[facility] [address] [place], [address] Bilirubin [Mass/Vol] 0.21 mg/dL Normal 0.00-1.30 [facility] Comment on above: Performed By: #### L 501.9520, L500.4100, L300.4310, L506.1001, L300.3900, L100.0100, L500.4050 ####[facility] [address] [place], [address] BUN/CRE 36.6 RATIO High 10-20 [facility] Comment on above: Performed By: #### L 501.9520, L500.4100, L300.4310, L506.1001, L300.3900, L100.0100, L500.4050 ####[facility] [address] [place], [address] Calcium [Mass/Vol] 9.2 mg/dL Normal 7.6-11.0 [facility] Comment on above: Performed By: #### L 501.9520, L500.4100, L300.4310, L506.1001, L300.3900, L100.0100, L500.4050 ####[facility] [address] [place], [address] Chloride [Moles/Vol] 110 mmol/L High 98-108 [facility] Comment on above: Performed By: #### L 501.9520, L500.4100, L300.4310, L506.1001, L300.3900, L100.0100, L500.4050 ####[facility] [address] [place], [address] CO2 [Moles/Vol] 22.7 mmol/L Normal 21.0-32.0 [facility] Comment on above: Performed By: #### L 501.9520, L500.4100, L300.4310, L506.1001, L300.3900, L100.0100, L500.4050 ####[facility] [address] [place], [address] Creatinine [Mass/Vol] 0.71 mg/dL Normal 0.70-1.20 [facility] Comment on above: Performed By: #### L 501.9520, L500.4100, L300.4310, L506.1001, L300.3900, L100.0100, L500.4050 ####[facility] [address] [place], [place], [phone] GAP 12 Normal 5-15 [facility] Comment on above: Performed By: #### L 501.9520, L500.4100, L300.4310, L506.1001, L300.3900, L100.0100, L500.4050 ####[facility] [address] [place], [address] GFR/1.73 sq M.predicted among non-blacks MDRD (S/P/Bld) [Vol rate/Area] 88 mL/min/{1.73_m2} Normal >60 [facility] Comment on above: Result Comment: mL/m in/1.73m2 CKD-EPI Creatinine Equation (2020) Performed By: #### L 501.9520, L500.4100, L300.4310, L506.1001, L300.3900, L100.0100, L500.4050 ####[facility] [address] [place], [address] Globulin (S) [Mass/Vol] 2.6 g/dL Normal 2.2-4.2 [facility] Comment on above: Performed By: #### L 501.9520, L500.4100, L300.4310, L506.1001, L300.3900, L100.0100, L500.4050 ####[facility] [address] [place], [address] Glucose [Mass/Vol] 128 mg/dL High 70-99 [facility] Comment on above: Performed By: #### L 501.9520, L500.4100, L300.4310, L506.1001, L300.3900, L100.0100, L500.4050 ####[facility] [address] [place], [address] Potassium [Moles/Vol] 3.9 mmol/L Normal 3.3-5.1 [facility] Comment on above: Performed By: #### L 501.9520, L500.4100, L300.4310, L506.1001, L300.3900, L100.0100, L500.4050 ####[facility] [address] [place], [address] Sodium [Moles/Vol] 144 mmol/L Normal 133-145 [facility] Comment on above: Performed By: #### L 501.9520, L500.4100, L300.4310, L506.1001, L300.3900, L100.0100, L500.4050 ####[facility] [address] [place], [address] T PROT 6.4 g/dL Normal 5.9-8.4 [facility] Comment on above: Performed By: #### L 501.9520, L500.4100, L300.4310, L506.1001, L300.3900, L100.0100, L500.4050 ####[facility] [address] [place], [address] Urea nitrogen [Mass/Vol] 26 mg/dL High 4-19 [facility] Comment on above: Performed By: #### L 501.9520, L500.4100, L300.4310, L506.1001, L300.3900, L100.0100, L500.4050 ####[facility] [address] [place], [address] Lipid Profileon 12-11-2024 CHOL:HDL 5.08 Normal [facility] Comment on above: Performed By: #### L 501.9520, L500.4100, L300.4310, L506.1001, L300.3900, L100.0100, L500.4050 ####[facility] [address] [place], [address] Cholesterol [Mass/Vol] 211 mg/dL High <=200 [facility] Comment on above: Result Comment: Chol esterol level, Desirable <200 mg/dLBorderline high cholesterol 200-239 mg/dLHigh cholesterol >=240 mg/dLRecommendations of the NCEP Adult Treatment Panel for thefollowing risk-cutoff thresholds for the [facility]. Performed By: #### L 501.9520, L500.4100, L300.4310, L506.1001, L300.3900, L100.0100, L500.4050 ####[facility] [address] [place], [address] Cholesterol in HDL [Mass/Vol] 42 mg/dL Normal [facility] Comment on above: Result Comment: Michelle onal Cholesterol Education Program (NCEP) guidelines:<40 mg/dL: Low HDL-cholesterol (major risk factor for CHD)>= 60 mg/dL: High HDL-cholesterol (negative risk factor forCHD)HDL-cholesterol is affected by a number of factors, e.g.smoking, exercise, hormones, sex and age. Performed By: #### L 501.9520, L500.4100, L300.4310, L506.1001, L300.3900, L100.0100, L500.4050 ####[facility] [address] [place], [address] Cholesterol in LDL [Mass/Vol] 114 mg/dL Normal [facility] Comment on above: Result Comment: Bord bgiozq=078-758 mg/dL Higher Ryna=529 mg/dL or greater Performed By: #### L 501.9520, L500.4100, L300.4310, L506.1001, L300.3900, L100.0100, L500.4050 ####[facility] [address] [place], [place], [id number] Cholesterol in VLDL [Mass/Vol] 56 mg/dL High 5-40 [facility] Comment on above: Performed By: #### L 501.9520, L500.4100, L300.4310, L506.1001, L300.3900, L100.0100, L500.4050 ####[facility] [address] [place], [place], [address] Triglyceride [Mass/Vol] 279 mg/dL High [facility] Comment on above: Result Comment: The drugs N-Acetylcysteine and Metamizole may falselydepress this assay.Normal range: <150 mg/dLBorderline High: 150-199 mg/dLHigh: 200-499 mg/dLVery High: >500 mg/dL Performed By: #### L 501.9520, L500.4100, L300.4310, L506.1001, L300.3900, L100.0100, L500.4050 ####[facility] [address] [place], [place], [id number] Partial Thromboplast Timeon 12-11-2024 aPTT Coag (Bld) [Time] 25.0 s Normal 24.1-36.2 [facility] Comment on above: Performed By: #### L 501.9520, L500.4100, L300.4310, L506.1001, L300.3900, L100.0100, L500.4050 ####[facility] [address] [place], [place], [phone] Prothrombin Time w/INRon INR Coag (PPP) [Relative time] 1.0 {INR} Normal [facility] Comment on above: Performed By: #### L 501.9520, L500.4100, L300.4310, L506.1001, L300.3900, L100.0100, L500.4050 ####[facility] [address] [place], [address] PT Coag (PPP) [Time] 13.1 s Normal 11.7-14.9 [facility] Comment on above: Performed By: #### L 501.9520, L500.4100, L300.4310, L506.1001, L300.3900, L100.0100, L500.4050 ####[facility] [address] [place], [address] Thyroid Stim Hormone (TSH)on 12-11-2024 TSH 1.090 uIU/mL Normal 0.300-4.200 [facility] Comment on above: Performed By: #### L 501.9520, L500.4100, L300.4310, L506.1001, L300.3900, L100.0100, L500.4050 ####[facility] [address] [place], [address] Vitamin D,25 Hydroxyon 12-11 Vitamin D 25-OH 28.4 ng/mL Low 30-100 [facility] Comment on above: Result Comment: Luda min D StatusDeficiency: <20 ng/mL (50nmol/L)Insufficiency: 20-30 ng/mL (50-75 nmol/L)Sufficiency: 30-100 ng/mL (75-250 nmol/L)Toxicity: >100 ng/mL (>250 nmol/L) Performed By: #### L 501.9520, L500.4100, L300.4310, L506.1001, L300.3900, L100.0100, L500.4050 ####[facility] [address] [place], [address] Brain/Head without Contrasto n 12-05-2024 Brain/Head without Contrast Normal [facility] Emergency Department Summary on 12-05-2024 Emergency Department Summary Normal [facility] Spine Cervical without Contr ason 12-05-2024 Spine Cervical without Contras Normal [facility] Breast imaging reportOrdered By: Citlali Horne on 11-29-2024 Study report [facility] Imaging Services [address] [place] [address] SCRN MAMM (CAD)W/ARNULFO BILAT MR#: [id number] Acct: [id number] Name: BARBARA GLASS Rep #: [id number] : 1950 F 74 From: Chloé Horne MD PCP: Dr. Ed Bowman MD Status: REG Isabel NG Study:SCRN MAMM (CAD)W/ARNULFO BILAT Date of Exa m: 11/29/24 Exam# [id number] Ordering Dr: Ke Saeed MD EXAM: SCRN MAMM (CAD)W/ARNULFO BILAT 11/29/2024 CLINICAL HISTORY: F, Age 74 y/o , ANNUAL SCREENING TECHNIQUE: Bilateral screening digital breast tomosynthesis with 2D and 3D images. Computeraided detection. COMPARISON: Prior exam(s) dated 04/06/2019, 11/26/2010. FINDINGS: TISSUE DENSITY: The breast tissue is composed of scattered area of fibroglandular density. Bilateral Breast Mammographic Findings: No significant masses, calcifications or other abnormalities are identified. BI/SCRN MAMM (CAD)W/ARNULFO BILAT IMPRESSION: Right Breast: BIRADS 1 NEGATIVE. Left Breast: BIRADS 1 NEGATIVE. OVERALL FINAL ASSESSMENT: BIRADS 1 NEGATIVE. RECOMMENDATION: Routine annual follow-up in 1 Year A letter with findings and recommendations will be mailed to the patient. Reading Location: [id number] CC: Dr. Ke Saeed MD; Dr. Ed Bowman MD ~ Team Driver: Signed [facility] SCRN MAMM (CAD)W/ARNULFO BILATo n 11-29-2024 SCRN MAMM (CAD)W/ARNULFO BILAT Normal [facility] Brain/Head without Contrasto n 11-26-2024 Brain/Head without Contrast Normal [facility] Emergency Department Summary on 11-26-2024 Emergency Department Summary Normal [facility] Spine Cervical without Contr ason 11-26-2024 Spine Cervical without Contras Normal [facility] Wound Cultureon 11-24-2024 WC Pending Staphylococcus epidermidis Amount Growth Growth Staphylococcus epidermidis: REACTION cefOXitin Susc Islt Doxycycline Islt TEETEE 1 S Clindamycin Islt TEETEE R Clindamycin.induced Susc Islt POS Erythromycin Islt TEETEE >=8 R Gentamicin Islt TEETEE >=16 R Linezolid Islt TEETEE 1 S Oxacillin Susc Islt >=4 R Tetracycline Islt TEETEE <=1 S TMP SMX Islt TEETEE 160 R Vancomycin Islt TEETEE 1 S Normal [facility] Comment on above: Performed By: #### M 100.1999, M100.3000 #### [facility] [address] [place], [place], [address] Gram Stainon 11-22-2024 GS Gram Stain 1+ Gram negative rods Rare Gram positive cocci No cells seen Normal [facility] Comment on above: Performed By: #### M 100.1999, M100.3000 #### [facility] [address] [place], [place], [address] Gram stainOrdered By: Ed marion on 11-21-2024 Microscopic observation Gram stain Nom (Unsp spec) [facility] Routine wound cultureOrdered By: Ed Bowman on 11-21-2024 Microbial culture, routine Staphylococcus epidermidis Abnormal [facility] Absolute lymphocyte countOrd ered By: Nelson Hobson on 11-20-2024 Lymphocytes Auto (Unsp spec) [#/Vol] 2.95 10*3/uL 0.83-4.51 [facility] Absolute neutrophil countOrd ered By: Nelson Hobson on 11-20-2024 Neutrophils (Bld) [#/Vol] 7.4 10*3/uL 2.0-7.7 [facility] Anion gap in Serum or Plasma Ordered By: Nelson Hobson on 11-20-2024 Anion gap [Moles/Vol] 13 mmol/L 5-15 [facility] Automated lymphocyte count a s percentage of total leukocytesOrdered By: Nelson Hobson on 11-20-2024 Lymphocytes/100 WBC Auto (Unsp spec) 24.6 % 19-41 [facility] BUN/creatinine ratioOrdered By: Nelson Hobson on 11-20-2024 Urea nitrogen/Creatinine [Mass ratio] 25.9 mg/mg High 10-20 [facility] Basophil percentageOrdered B y: Nelson Hboson on 11-20-2024 Basophils/100 WBC (Bld) 0.8 % 0-1 [facility] Bilirubin, totalOrdered By: Nelson Hobson on 11-20-2024 Bilirubin [Mass/Vol] 0.33 mg/dL 0.00-1.30 [facility] CBC W/Diff, Automatedon 11-09-2024 Absolute Lymph 2.95 X10 3/uL Normal 0.83-4.51 [facility] Comment on above: Performed By: #### L 100.0100, L500.4050, L504.2610, L300.8000 ####[facility] [address] [place], [address] Absolute Neut 7.4 X10 3/uL Normal 2.0-7.7 [facility] Comment on above: Performed By: #### L 100.0100, L500.4050, L504.2610, L300.8000 ####[facility] [address] [place], [address] Basophils/100 WBC (Bld) 0.8 % Normal 0-1 [facility] Comment on above: Performed By: #### L 100.0100, L500.4050, L504.2610, L300.8000 ####[facility] [address] [place], [address] Eosinophils/100 WBC (Bld) 0.6 % Normal 0-5 [facility] Comment on above: Performed By: #### L 100.0100, L500.4050, L504.2610, L300.8000 ####[facility] [address] [place], [address] Erythrocyte distribution width (RBC) [Ratio] 13.5 % Normal 11.6-14.6 [facility] Comment on above: Performed By: #### L 100.0100, L500.4050, L504.2610, L300.8000 ####[facility] [address] [place], [address] Hematocrit (Bld) [Volume fraction] 42.9 % Normal 37-47 [facility] Comment on above: Performed By: #### L 100.0100, L500.4050, L504.2610, L300.8000 ####[facility] [address] [place], [address] Hemoglobin (Bld) [Mass/Vol] 14.7 g/dL Normal 12.0-15.0 [facility] Comment on above: Performed By: #### L 100.0100, L500.4050, L504.2610, L300.8000 ####[facility] [address] [place], [address] IG% 2.400 High 0.0-0.9 [facility] Comment on above: Result Comment: IG% - Immature Granulocytes (promyelocytes, myelocytes andmetamyelocytes) > 1% indicates that a LEFT SHIFT is Present. Performed By: #### L 100.0100, L500.4050, L504.2610, L300.8000 ####[facility] [address] [place], [address] Lymphocytes/100 WBC (Bld) 24.6 % Normal 19-41 [facility] Comment on above: Performed By: #### L 100.0100, L500.4050, L504.2610, L300.8000 ####[facility] [address] [place], [address] MCH (RBC) [Entitic mass] 30.9 pg Normal 27.0-32.0 [facility] Comment on above: Performed By: #### L 100.0100, L500.4050, L504.2610, L300.8000 ####[facility] [address] [place], [address] MCHC (RBC) [Mass/Vol] 34.3 g/dL Normal 32-36 [facility] Comment on above: Performed By: #### L 100.0100, L500.4050, L504.2610, L300.8000 ####[facility] [address] [place], [address] MCV (RBC) [Entitic vol] 90.1 fL Normal 81-99 [facility] Comment on above: Performed By: #### L 100.0100, L500.4050, L504.2610, L300.8000 ####[facility] [address] [place], [address] Monocytes/100 WBC (Bld) 9.5 % Normal 0-10 [facility] Comment on above: Performed By: #### L 100.0100, L500.4050, L504.2610, L300.8000 ####[facility] [address] [place], [address] Neutrophils/100 WBC (Bld) 62.1 % Normal 47-70 [facility] Comment on above: Performed By: #### L 100.0100, L500.4050, L504.2610, L300.8000 ####[facility] [address] [place], [address] Nucleated RBC (Bld) [#/Vol] 0 10*3/uL Normal 0-5 [facility] Comment on above: Performed By: #### L 100.0100, L500.4050, L504.2610, L300.8000 ####[facility] [address] [place], [address] Platelet mean volume (Bld) [Entitic vol] 9.3 fL Normal 6.2-12.0 [facility] Comment on above: Performed By: #### L 100.0100, L500.4050, L504.2610, L300.8000 ####[facility] [address] [place], [address] Platelets (Bld) [#/Vol] 310 10*3/uL Normal 150-450 [facility] Comment on above: Performed By: #### L 100.0100, L500.4050, L504.2610, L300.8000 ####[facility] [address] [place], [address] RBC (Bld) [#/Vol] 4.76 10*6/uL Normal 4.2-5.4 [facility] Comment on above: Performed By: #### L 100.0100, L500.4050, L504.2610, L300.8000 ####[facility] [address] [place], [address] RDW SD 44.8 fl High 35.1-43.9 [facility] Comment on above: Performed By: #### L 100.0100, L500.4050, L504.2610, L300.8000 ####[facility] [address] [place], [address] WBC (Bld) [#/Vol] 12.0 10*3/uL High 4.4-11.0 [facility] Comment on above: Performed By: #### L 100.0100, L500.4050, L504.2610, L300.8000 ####[facility] [address] [place], [address] Carbon dioxide, total [Moles /volume] in Central venous bloodOrdered By: Nelson Hobson on 11-20-2024 CO2 [Moles/Vol] 22.4 mmol/L 21.0-32.0 [facility] Chloride assayOrdered By: Niya Hobson on 11-20-2024 Chloride [Moles/Vol] 106 mmol/L 98-108 [facility] Comprehensive Metabolic Prof ilon 11-20-2024 Albumin [Mass/Vol] 4.0 g/dL Normal 3.4-4.8 [facility] Comment on above: Performed By: #### L 100.0100, L500.4050, L504.2610, L300.8000 ####[facility] [id number] [place], [address] Albumin/Globulin [Mass ratio] 1.4 {ratio} Normal 0.9-2.4 [facility] Comment on above: Performed By: #### L 100.0100, L500.4050, L504.2610, L300.8000 ####[facility] [address] [place], [address] ALK PHOS 107 U/L High 35-104 [facility] Comment on above: Performed By: #### L 100.0100, L500.4050, L504.2610, L300.8000 ####[facility] [address] [place], [address] ALT [Catalytic activity/Vol] 11 U/L Normal <=34 [facility] Comment on above: Performed By: #### L 100.0100, L500.4050, L504.2610, L300.8000 ####[facility] [address] [place], [address] AST [Catalytic activity/Vol] 20 U/L Normal <=31 [facility] Comment on above: Performed By: #### L 100.0100, L500.4050, L504.2610, L300.8000 ####[facility] [address] [place], [address] Bilirubin [Mass/Vol] 0.33 mg/dL Normal 0.00-1.30 [facility] Comment on above: Performed By: #### L 100.0100, L500.4050, L504.2610, L300.8000 ####[facility] [address] [place], [address] BUN/CRE 25.9 RATIO High 10-20 [facility] Comment on above: Performed By: #### L 100.0100, L500.4050, L504.2610, L300.8000 ####[facility] [address] [place], [address] Calcium [Mass/Vol] 9.0 mg/dL Normal 7.6-11.0 [facility] Comment on above: Performed By: #### L 100.0100, L500.4050, L504.2610, L300.8000 ####[facility] [address] [place], [address] Chloride [Moles/Vol] 106 mmol/L Normal 98-108 [facility] Comment on above: Performed By: #### L 100.0100, L500.4050, L504.2610, L300.8000 ####[facility] [address] [place], [address] CO2 [Moles/Vol] 22.4 mmol/L Normal 21.0-32.0 [facility] Comment on above: Performed By: #### L 100.0100, L500.4050, L504.2610, L300.8000 ####[facility] [address] [place], [address] Creatinine [Mass/Vol] 0.95 mg/dL Normal 0.70-1.20 [facility] Comment on above: Performed By: #### L 100.0100, L500.4050, L504.2610, L300.8000 ####[facility] [address] [place], [address] ECRCL 54.01 ml/min Normal 50-250 [facility] Comment on above: Performed By: #### L 100.0100, L500.4050, L504.2610, L300.8000 ####[facility] [address] [place], [address] GAP 13 Normal 5-15 [facility] Comment on above: Performed By: #### L 100.0100, L500.4050, L504.2610, L300.8000 ####[facility] [address] [place], [address] GFR/1.73 sq M.predicted among non-blacks MDRD (S/P/Bld) [Vol rate/Area] 62 mL/min/{1.73_m2} Normal >60 [facility] Comment on above: Result Comment: mL/m in/1.73m2 CKD-EPI Creatinine Equation (2020) Performed By: #### L 100.0100, L500.4050, L504.2610, L300.8000 ####[facility] [address] [place], [address] Globulin (S) [Mass/Vol] 2.7 g/dL Normal 2.2-4.2 [facility] Comment on above: Performed By: #### L 100.0100, L500.4050, L504.2610, L300.8000 ####[facility] [address] [place], [address] Glucose [Mass/Vol] 116 mg/dL High 70-99 [facility] Comment on above: Performed By: #### L 100.0100, L500.4050, L504.2610, L300.8000 ####[facility] [address] [place], [address] Potassium [Moles/Vol] 3.6 mmol/L Normal 3.3-5.1 [facility] Comment on above: Performed By: #### L 100.0100, L500.4050, L504.2610, L300.8000 ####[facility] [address] [place], [address] Sodium [Moles/Vol] 141 mmol/L Normal 133-145 [facility] Comment on above: Performed By: #### L 100.0100, L500.4050, L504.2610, L300.8000 ####[facility] [address] [place], [address] T PROT 6.7 g/dL Normal 5.9-8.4 [facility] Comment on above: Performed By: #### L 100.0100, L500.4050, L504.2610, L300.8000 ####[facility] [address] [place], [address] Urea nitrogen [Mass/Vol] 25 mg/dL High 4-19 [facility] Comment on above: Performed By: #### L 100.0100, L500.4050, L504.2610, L300.8000 ####[facility] [address] [place], [address] D-Dimer Quantitative (DVT/PE )on 11-20-2024 D-DIMER QUANT 1.24 FEU/ug/m Invalid Interpretation Code 0.27-0.49 [facility] Comment on above: Result Comment: D-Di sterling ELEVATED (>0.49): Additional studies and clinicalassessments are indicated to conclude diagnosis of:Deep Vein Thrombosis (DVT) or Pulmonary Embolism (PE)CRITICAL VALUE CALLED TO LEXA MATHIAS (ONC)11/20/24 1454 Iggy Qiu.RESULTS READ BACK BY SAME. Performed By: #### L 100.0100, L500.4050, L504.2610, L300.8000 ####[facility] [address] [place], [address] Eosinophil percentageOrdered By: Nelson Hobson on 11-20-2024 Eosinophils/100 WBC (Bld) 0.6 % 0-5 [facility] Erythrocyte distribution wid th ratioOrdered By: Nelson Hobson on 11-20-2024 Erythrocyte distribution width (RBC) [Ratio] 13.5 % 11.6-14.6 [facility] Erythrocyte distribution wid th standard deviationOrdered By: Nelson Hobson on 11-20-2024 Erythrocyte distribution width (RBC) [Ratio] 44.8 fl High 35.1-43.9 [facility] Glomerular filtration rate ( GFR) estimation/1.73 sq m using serum, plasma, or whole bOrdered By: Nelson Hobson on 11-20-2024 GFR/1.73 sq M.predicted among non-blacks MDRD (S/P/Bld) [Vol rate/Area] 62 mL/min/{1.73_m2} >60 [facility] Comment on above: mL/min/1.73m2 CKD-EP I Creatinine Equation (2020) Hematocrit Auto (Bld) [Volum e fraction]Ordered By: Nelson Hobson on 11-20-2024 Hematocrit (Bld) [Volume fraction] 42.9 % 37-47 [facility] Hemoglobin measurementOrdere d By: Nelson Hobson on 11-20-2024 Hemoglobin (Bld) [Mass/Vol] 14.7 g/dL 12.0-15.0 [facility] Immature granulocytes/100 WB C Auto (Bld)Ordered By: Nelson Hobson on 11-20-2024 Immature granulocytes/100 WBC (Bld) 2.400 % High 0.0-0.9 [facility] Comment on above: IG% - Immature Granu locytes (promyelocytes, myelocytes and metamyelocytes) > 1% indicates that a LEFT SHIFT is Present. LDHon 11-20-2024 LDH 258 U/L High 84-246 [facility] Comment on above: Order Comment: 1 Performed By: #### L 100.0100, L500.4050, L504.2610, L300.8000 ####[facility] [address] [place], [place], [id number] Laboratory - Chemistry and C hemistry - challengeOrdered By: [facility] on 11-20-2024 AST [Catalytic activity/Vol] 20 U/L <32 [facility] Lactate dehydrogenase (LDH) measurementOrdered By: Nelson Hobson on 11-20-2024 LDH [Catalytic activity/Vol] 258 U/L High 84-246 [facility] MCV (mean corpuscular volume ) determinationOrdered By: Nelson Hobson on 11-20-2024 MCV (RBC) [Entitic vol] 90.1 fL 81-99 [facility] Mean corpuscular hemoglobin (MCH) determinationOrdered By: Nelson Hobson on 11-20-2024 MCH (RBC) [Entitic mass] 30.9 pg 27.0-32.0 [facility] Mean corpuscular hemoglobin concentration (MCHC) determinationOrdered By: Nelson Hobson on 11-20-2024 MCHC (RBC) [Mass/Vol] 34.3 g/dL 32-36 [facility] Mean platelet volume determi nationOrdered By: Nelson Hobson on 11-20-2024 Platelet mean volume (Bld) [Entitic vol] 9.3 fL 6.2-12.0 [facility] Monocyte percentageOrdered B y: Nelson Hobson on 11-20-2024 Monocytes/100 WBC (Bld) 9.5 % 0-10 [facility] Neutrophil percentageOrdered By: Nelson Hobson on 11-20-2024 Neutrophils/100 WBC (Bld) 62.1 % 47-70 [facility] Nucleated red blood cell per centageOrdered By: Nelson Hobson on 11-20-2024 Nucleated RBC/100 WBC (Bld) [Ratio] 0 % 0-5 [facility] Oncology Visit Reporton 05 Oncology Visit Report Normal [facility] Platelet countOrdered By: Niya Hobson on 11-20-2024 Platelets (Bld) [#/Vol] 310 10*3/uL 150-450 [facility] Potassium measurement (mass/ volume)Ordered By: Nelson Hobson on 11-20-2024 Potassium (Unsp spec) [Mass/Vol] 3.6 mmol/L 3.3-5.1 [facility] RBC Auto (Bld) [#/Vol]Ordere d By: Nelson Hobson on 11-20-2024 RBC (Bld) [#/Vol] 4.76 10*6/uL 4.2-5.4 [facility] Serum creatinine measurement (mass/volume)Ordered By: Nelson Hobson on 11-20-2024 Creatinine [Mass/Vol] 0.95 mg/dL 0.70-1.20 [facility] Serum globulin measurementOr dered By: Nelson Hobson on 11-20-2024 Globulin (S) [Mass/Vol] 2.7 g/dL 2.2-4.2 [facility] Serum glucose measurement (m ass/volume)Ordered By: Nelson Hobson on 11-20-2024 Glucose [Mass/Vol] 116 mg/dL High 70-99 [facility] Serum or plasma alanine cooper otransferase (ALT) measurementOrdered By: Nelson Hobson on 11-20-2024 ALT [Catalytic activity/Vol] 11 U/L <35 [facility] Serum or plasma albumin raine urement (mass/volume)Ordered By: Nelson Hobson on 11-20-2024 Albumin [Mass/Vol] 4.0 g/dL 3.4-4.8 [facility] Serum or plasma albumin/glob ulin mass ratioOrdered By: Nelson Hobson on 11-20-2024 Albumin/Globulin [Mass ratio] 1.4 {ratio} 0.9-2.4 [facility] Serum or plasma alkaline haven sphatase measurementOrdered By: Nelson Hobson on 11-20-2024 ALP [Catalytic activity/Vol] 107 U/L High 35-104 [facility] Serum or plasma calcium raine urement (mass/volume)Ordered By: Nelson Hobson on 11-20-2024 Calcium [Mass/Vol] 9.0 mg/dL 7.6-11.0 [facility] Serum or plasma urea nitroge n measurement (mass/volume)Ordered By: Nelson Hobson on 11-20-2024 Urea nitrogen [Mass/Vol] 25 mg/dL High 4-19 [facility] Sodium levelOrdered By: Venu Hobson on 11-20-2024 Sodium [Moles/Vol] 141 mmol/L 133-145 [facility] Total proteinOrdered By: Dickson Hobson on 11-20-2024 Protein [Mass/Vol] 6.7 g/dL 5.9-8.4 [facility] White blood cell (WBC) count Ordered By: Nelson Hobson on 11-20-2024 WBC (Bld) [#/Vol] 12.0 10*3/uL High 4.4-11.0 [facility] Shoulder min 2 Viewson 11-09 Shoulder min 2 Views Normal [facility] Urine Cultureon 11-08-2024 URC Normal [facility] Comment on above: Performed By: #### M 100.2200 ####[facility] [address] [place], [address] 12 Lead EKGon 11-05-2024 12 Lead EKG Normal [facility] Absolute lymphocyte countOrd ered By: Chato Yang on 11-05-2024 Lymphocytes Auto (Unsp spec) [#/Vol] 2.45 10*3/uL 0.83-4.51 [facility] Absolute neutrophil countOrd ered By: Chato Yang on 11-05-2024 Neutrophils (Bld) [#/Vol] 4.8 10*3/uL 2.0-7.7 [facility] Anion gap in Serum or Plasma Ordered By: Chato Yang on 11-05-2024 Anion gap [Moles/Vol] 12 mmol/L 5-15 [facility] Automated lymphocyte count a s percentage of total leukocytesOrdered By: Chato Yang on 11-05-2024 Lymphocytes/100 WBC Auto (Unsp spec) 29.2 % 19-41 [facility] BUN/creatinine ratioOrdered By: Chato Yang on 11-05-2024 Urea nitrogen/Creatinine [Mass ratio] 19.6 mg/mg 10-20 [facility] Basophil percentageOrdered B y: Chato Yang on 11-05-2024 Basophils/100 WBC (Bld) 0.6 % 0-1 [facility] Bilirubin Test strip Ql (U)O rdered By: Chato Yang on 11-05-2024 Bilirubin Ql (U) Negative Negative [facility] Bilirubin, totalOrdered By: Chato Yang on 11-05-2024 Bilirubin [Mass/Vol] 0.54 mg/dL 0.00-1.30 [facility] CBC W/Diff, Automatedon 10-11 Absolute Lymph 2.45 X10 3/uL Normal 0.83-4.51 [facility] Comment on above: Performed By: #### L 501.2450, L501.4021, L100.0100, L500.4050 ####[facility] [address] [place], [address] Absolute Neut 4.8 X10 3/uL Normal 2.0-7.7 [facility] Comment on above: Performed By: #### L 501.2450, L501.4021, L100.0100, L500.4050 ####[facility] [address] [place], [address] Basophils/100 WBC (Bld) 0.6 % Normal 0-1 [facility] Comment on above: Performed By: #### L 501.2450, L501.4021, L100.0100, L500.4050 ####[facility] [address] [place], [address] Eosinophils/100 WBC (Bld) 0.5 % Normal 0-5 [facility] Comment on above: Performed By: #### L 501.2450, L501.4021, L100.0100, L500.4050 ####[facility] [address] [place], [address] Erythrocyte distribution width (RBC) [Ratio] 13.3 % Normal 11.6-14.6 [facility] Comment on above: Performed By: #### L 501.2450, L501.4021, L100.0100, L500.4050 ####[facility] [address] [place], [address] Hematocrit (Bld) [Volume fraction] 42.3 % Normal 37-47 [facility] Comment on above: Performed By: #### L 501.2450, L501.4021, L100.0100, L500.4050 ####[facility] [address] [place], [address] Hemoglobin (Bld) [Mass/Vol] 14.7 g/dL Normal 12.0-15.0 [facility] Comment on above: Performed By: #### L 501.2450, L501.4021, L100.0100, L500.4050 ####[facility] [address] [place], [address] IG% 1.300 High 0.0-0.9 [facility] Comment on above: Result Comment: IG% - Immature Granulocytes (promyelocytes, myelocytes andmetamyelocytes) > 1% indicates that a LEFT SHIFT is Present. Performed By: #### L 501.2450, L501.4021, L100.0100, L500.4050 ####[facility] [address] [place], [address] Lymphocytes/100 WBC (Bld) 29.2 % Normal 19-41 [facility] Comment on above: Performed By: #### L 501.2450, L501.4021, L100.0100, L500.4050 ####[facility] [address] [place], [address] MCH (RBC) [Entitic mass] 31.2 pg Normal 27.0-32.0 [facility] Comment on above: Performed By: #### L 501.2450, L501.4021, L100.0100, L500.4050 ####[facility] [address] [place], [address] MCHC (RBC) [Mass/Vol] 34.8 g/dL Normal 32-36 [facility] Comment on above: Performed By: #### L 501.2450, L501.4021, L100.0100, L500.4050 ####[facility] [address] [place], [address] MCV (RBC) [Entitic vol] 89.8 fL Normal 81-99 [facility] Comment on above: Performed By: #### L 501.2450, L501.4021, L100.0100, L500.4050 ####[facility] [address] [place], [address] Monocytes/100 WBC (Bld) 11.1 % High 0-10 [facility] Comment on above: Performed By: #### L 501.2450, L501.4021, L100.0100, L500.4050 ####[facility] [address] [place], [address] Neutrophils/100 WBC (Bld) 57.3 % Normal 47-70 [facility] Comment on above: Performed By: #### L 501.2450, L501.4021, L100.0100, L500.4050 ####[facility] [address] [place], [address] Nucleated RBC (Bld) [#/Vol] 0 10*3/uL Normal 0-5 [facility] Comment on above: Performed By: #### L 501.2450, L501.4021, L100.0100, L500.4050 ####[facility] [address] [place], [address] Platelet mean volume (Bld) [Entitic vol] 8.7 fL Normal 6.2-12.0 [facility] Comment on above: Performed By: #### L 501.2450, L501.4021, L100.0100, L500.4050 ####[facility] [address] [place], [address] Platelets (Bld) [#/Vol] 238 10*3/uL Normal 150-450 [facility] Comment on above: Performed By: #### L 501.2450, L501.4021, L100.0100, L500.4050 ####[facility] [address] [place], [address] RBC (Bld) [#/Vol] 4.71 10*6/uL Normal 4.2-5.4 [facility] Comment on above: Performed By: #### L 501.2450, L501.4021, L100.0100, L500.4050 ####[facility] [address] [place], [address] RDW SD 43.9 fl Normal 35.1-43.9 [facility] Comment on above: Performed By: #### L 501.2450, L501.4021, L100.0100, L500.4050 ####[facility] [address] [place], [address] WBC (Bld) [#/Vol] 8.4 10*3/uL Normal 4.4-11.0 [facility] Comment on above: Performed By: #### L 501.2450, L501.4021, L100.0100, L500.4050 ####[facility] [address] [place], [address] Carbon dioxide, total [Moles /volume] in Central venous bloodOrdered By: Chato Yang on 11-05-2024 CO2 [Moles/Vol] 23.0 mmol/L 21.0-32.0 [facility] Chloride assayOrdered By: Crow Yang on 11-05-2024 Chloride [Moles/Vol] 105 mmol/L 98-108 [facility] Comprehensive Metabolic Prof ilon 11-05-2024 Albumin [Mass/Vol] 3.8 g/dL Normal 3.4-4.8 [facility] Comment on above: Performed By: #### L 501.2450, L501.4021, L100.0100, L500.4050 ####[facility] [address] [place], [address] Albumin/Globulin [Mass ratio] 1.4 {ratio} Normal 0.9-2.4 [facility] Comment on above: Performed By: #### L 501.2450, L501.4021, L100.0100, L500.4050 ####[facility] [address] [place], [address] ALK PHOS 74 U/L Normal 35-104 [facility] Comment on above: Performed By: #### L 501.2450, L501.4021, L100.0100, L500.4050 ####[facility] [address] [place], [address] ALT [Catalytic activity/Vol] 11 U/L Normal <=34 [facility] Comment on above: Performed By: #### L 501.2450, L501.4021, L100.0100, L500.4050 ####[facility] [address] [place], [address] AST [Catalytic activity/Vol] 26 U/L Normal <=31 [facility] Comment on above: Result Comment: Hemo lysis present, Results??could be affected.?? Performed By: #### L 501.2450, L501.4021, L100.0100, L500.4050 ####[facility] [address] [place], [address] Bilirubin [Mass/Vol] 0.54 mg/dL Normal 0.00-1.30 [facility] Comment on above: Performed By: #### L 501.2450, L501.4021, L100.0100, L500.4050 ####[facility] [address] [place], [address] BUN/CRE 19.6 RATIO Normal 10-20 [facility] Comment on above: Performed By: #### L 501.2450, L501.4021, L100.0100, L500.4050 ####[facility] [address] [place], [address] Calcium [Mass/Vol] 9.2 mg/dL Normal 7.6-11.0 [facility] Comment on above: Performed By: #### L 501.2450, L501.4021, L100.0100, L500.4050 ####[facility] [address] [place], [address] Chloride [Moles/Vol] 105 mmol/L Normal 98-108 [facility] Comment on above: Performed By: #### L 501.2450, L501.4021, L100.0100, L500.4050 ####[facility] [address] [place], [address] CO2 [Moles/Vol] 23.0 mmol/L Normal 21.0-32.0 [facility] Comment on above: Performed By: #### L 501.2450, L501.4021, L100.0100, L500.4050 ####[facility] [address] [place], [address] Creatinine [Mass/Vol] 0.86 mg/dL Normal 0.70-1.20 [facility] Comment on above: Performed By: #### L 501.2450, L501.4021, L100.0100, L500.4050 ####[facility] [address] [place], [address] ECRCL 56.98 ml/min Normal 50-250 [facility] Comment on above: Performed By: #### L 501.2450, L501.4021, L100.0100, L500.4050 ####[facility] [address] [place], [address] GAP 12 Normal 5-15 [facility] Comment on above: Performed By: #### L 501.2450, L501.4021, L100.0100, L500.4050 ####[facility] [address] [place], [address] GFR/1.73 sq M.predicted among non-blacks MDRD (S/P/Bld) [Vol rate/Area] 70 mL/min/{1.73_m2} Normal >60 [facility] Comment on above: Result Comment: mL/m in/1.73m2 CKD-EPI Creatinine Equation (2020) Performed By: #### L 501.2450, L501.4021, L100.0100, L500.4050 ####[facility] [address] [place], [address] Globulin (S) [Mass/Vol] 2.8 g/dL Normal 2.2-4.2 [facility] Comment on above: Performed By: #### L 501.2450, L501.4021, L100.0100, L500.4050 ####[facility] [address] [place], [address] Glucose [Mass/Vol] 95 mg/dL Normal 70-99 [facility] Comment on above: Performed By: #### L 501.2450, L501.4021, L100.0100, L500.4050 ####[facility] [address] [place], [address] Potassium [Moles/Vol] 3.9 mmol/L Normal 3.3-5.1 [facility] Comment on above: Result Comment: Hemo lysis present, Results??could be affected.?? Performed By: #### L 501.2450, L501.4021, L100.0100, L500.4050 ####[facility] [address] [place], [address] Sodium [Moles/Vol] 140 mmol/L Normal 133-145 [facility] Comment on above: Performed By: #### L 501.2450, L501.4021, L100.0100, L500.4050 ####[facility] [address] [place], [address] T PROT 6.6 g/dL Normal 5.9-8.4 [facility] Comment on above: Performed By: #### L 501.2450, L501.4021, L100.0100, L500.4050 ####[facility] [address] [place], [address] Urea nitrogen [Mass/Vol] 17 mg/dL Normal 4-19 [facility] Comment on above: Performed By: #### L 501.2450, L501.4021, L100.0100, L500.4050 ####[facility] [address] [place], [address] Emergency Department Summary on 11-05-2024 Emergency Department Summary Normal [facility] Eosinophil percentageOrdered By: Chato Yang on 11-05-2024 Eosinophils/100 WBC (Bld) 0.5 % 0-5 [facility] Epithelial cells.squamous LM Ql (Urine sed)Ordered By: Chato Yang on 11-05-2024 Epithelial cells.squamous LM.HPF (Urine sed) [#/Area] 0 /[HPF] 5-10 [facility] Erythrocyte distribution wid th (RBC) [Ratio]Ordered By: Chato Yang on 11-05-2024 Erythrocyte distribution width (RBC) [Entitic vol] 43.9 fL 35.1-43.9 [facility] Erythrocyte distribution wid th ratioOrdered By: Chato Yang on 11-05-2024 Erythrocyte distribution width (RBC) [Ratio] 13.3 % 11.6-14.6 [facility] Erythrocyte distribution wid th standard deviationOrdered By: Chato Yang on 11-05-2024 Erythrocyte distribution width (RBC) [Ratio] 43.9 fl 35.1-43.9 [facility] Estimation of creatinine germania aranceOrdered By: Chato Yang on 11-05-2024 Estimated Creatinine Clearance Calc 56.98 ml/min 50-250 [facility] GFR/1.73 sq M.predicted tammy g non-blacks MDRD (S/P/Bld) [Vol rate/Area]Ordered By: Chato Yang on 11-05-2024 Estimated GFR (MDRD) Non-Af Amer 70 >60 [facility] Comment on above: mL/min/1.73m2 CKD-EP I Creatinine Equation (2020) Glomerular filtration rate ( GFR) estimation/1.73 sq m using serum, plasma, or whole bOrdered By: Chato Yang on 11-05-2024 GFR/1.73 sq M.predicted among non-blacks MDRD (S/P/Bld) [Vol rate/Area] 70 mL/min/{1.73_m2} >60 [facility] Comment on above: mL/min/1.73m2 CKD-EP I Creatinine Equation (2020) Glucose Ql (U)Ordered By: Crow Yang on 11-05-2024 Urine Glucose (UA) Normal mg/dl Normal [facility] Hematocrit Auto (Bld) [Volum e fraction]Ordered By: Chato Yang on 11-05-2024 Hematocrit (Bld) [Volume fraction] 42.3 % 37-47 [facility] Hemoglobin measurementOrdere d By: Chato Yang on 11-05-2024 Hemoglobin (Bld) [Mass/Vol] 14.7 g/dL 12.0-15.0 [facility] Immature granulocytes/100 WB C Auto (Bld)Ordered By: Chato Yang on 11-05-2024 Immature granulocytes/100 WBC (Bld) 1.300 % High 0.0-0.9 [facility] Comment on above: IG% - Immature Granu locytes (promyelocytes, myelocytes and metamyelocytes) > 1% indicates that a LEFT SHIFT is Present. Ketones Test strip Ql (U)Ord ered By: Chato Yang on 11-05-2024 Ketones Ql (U) Negative Negative [facility] L501.4021on 11-05-2024 Trop T High Sen 14 ng/L Normal <=14 [facility] Comment on above: Performed By: #### L 501.2450, L501.4021, L100.0100, L500.4050 ####[facility] [address] [place], [address] Laboratory - Chemistry and C hemistry - challengeOrdered By: Chato Yang on 11-05-2024 AST [Catalytic activity/Vol] 26 U/L <32 [facility] Comment on above: Hemolysis present, R esults could be affected. Lipaseon 11-05-2024 Lipase [Catalytic activity/Vol] 22 U/L Normal 13-75 [facility] Comment on above: Result Comment: Gabriella elaine note:LIPASE revised reference range effective 22.New Lipase methodology. Expected to produce lower valuesthan the previous assay method.NEW Reference Range: 13 - 75 U/L Performed By: #### L 501.2450, L501.4021, L100.0100, L500.4050 ####[facility] [address] [place], [place], [id number] Lipase measurementOrdered By : Chato Yang on 11-05-2024 Lipase [Catalytic activity/Vol] 22 U/L 13-75 [facility] Comment on above: Please note:LIPASE r evised reference range effective 22. New Lipase methodology. Expected to produce lower values than the previous assay method. NEW Reference Range: 13 - 75 U/L Lymphocytes Auto (Unsp spec) [#/Vol]Ordered By: Chato Yang on 11-05-2024 Lymphocytes (Bld) [#/Vol] 2.45 10*3/uL 0.83-4.51 [facility] Lymphocytes/100 WBC Auto (Un sp spec)Ordered By: Chato Yang on 11-05-2024 Lymphocytes/100 WBC (Bld) 29.2 % 19-41 [facility] MCV (mean corpuscular volume ) determinationOrdered By: Chato Yang on 11-05-2024 MCV (RBC) [Entitic vol] 89.8 fL 81-99 [facility] Mean corpuscular hemoglobin (MCH) determinationOrdered By: Chato Yang on 11-05-2024 MCH (RBC) [Entitic mass] 31.2 pg 27.0-32.0 [facility] Mean corpuscular hemoglobin concentration (MCHC) determinationOrdered By: Chato Yang on 11-05-2024 MCHC (RBC) [Mass/Vol] 34.8 g/dL 32-36 [facility] Mean platelet volume determi nationOrdered By: Chato Yang on 11-05-2024 Platelet mean volume (Bld) [Entitic vol] 8.7 fL 6.2-12.0 [facility] Microscopic analysis of urin e for red blood cells (RBC)Ordered By: Chato Yang on 11-05-2024 Microscopic analysis of urine for red blood cells (RBC) 0 SEEN /hpf 0-5 [facility] Urine RBC 0 SEEN /hpf 0-5 [facility] Monocyte percentageOrdered B y: Chato Yang on 11-05-2024 Monocytes/100 WBC (Bld) 11.1 % High 0-10 [facility] Mucus LM Ql (Urine sed)Order ed By: Chato Yang on 11-05-2024 Mucus Ql (Urine sed) 2+ /hpf [facility] Neutrophil percentageOrdered By: Chato Yang on 11-05-2024 Neutrophils/100 WBC (Bld) 57.3 % 47-70 [facility] Nitrite Test strip Ql (U)Ord ered By: Chato Yang on 11-05-2024 Nitrite Ql (U) Positive High Negative [facility] Nucleated red blood cell per centageOrdered By: Chato Yang on 11-05-2024 Nucleated RBC/100 WBC (Bld) [Ratio] 0 % 0-5 [facility] Platelet countOrdered By: Crow Yang on 11-05-2024 Platelets (Bld) [#/Vol] 238 10*3/uL 150-450 [facility] Potassium (Unsp spec) [Mass/ Vol]Ordered By: Chato Yang on 11-05-2024 Potassium [Moles/Vol] 3.9 mmol/L 3.3-5.1 [facility] Comment on above: Hemolysis present, R esults could be affected. Potassium measurement (mass/ volume)Ordered By: Cahto Yang on 11-05-2024 Potassium (Unsp spec) [Mass/Vol] 3.9 mmol/L 3.3-5.1 [facility] Comment on above: Hemolysis present, R esults could be affected. Protein Test strip Ql (U)Ord ered By: Chato Yang on 11-05-2024 Protein Ql (U) 30 mg/dl High Negative [facility] RBC Auto (Bld) [#/Vol]Ordere d By: Chato Yang on 11-05-2024 RBC (Bld) [#/Vol] 4.71 10*6/uL 4.2-5.4 [facility] Serum creatinine measurement (mass/volume)Ordered By: Chato Yang on 11-05-2024 Creatinine [Mass/Vol] 0.86 mg/dL 0.70-1.20 [facility] Serum globulin measurementOr dered By: Chato Yang on 11-05-2024 Globulin (S) [Mass/Vol] 2.8 g/dL 2.2-4.2 [facility] Serum glucose measurement (m ass/volume)Ordered By: Chato Yang on 11-05-2024 Glucose [Mass/Vol] 95 mg/dL 70-99 [facility] Serum or plasma alanine cooper otransferase (ALT) measurementOrdered By: Chato Yang on 11-05-2024 ALT [Catalytic activity/Vol] 11 U/L <35 [facility] Serum or plasma albumin raine urement (mass/volume)Ordered By: Chato Yang on 11-05-2024 Albumin [Mass/Vol] 3.8 g/dL 3.4-4.8 [facility] Serum or plasma albumin/glob ulin mass ratioOrdered By: Chato Yang 11-05-2024 Albumin/Globulin [Mass ratio] 1.4 {ratio} 0.9-2.4 [facility] Serum or plasma alkaline haven sphatase measurementOrdered By: Chato Yang on 11-05-2024 ALP [Catalytic activity/Vol] 74 U/L 35-104 [facility] Serum or plasma calcium raine urement (mass/volume)Ordered By: Chato Yang 11-05-2024 Calcium [Mass/Vol] 9.2 mg/dL 7.6-11.0 [facility] Serum or plasma urea nitroge n measurement (mass/volume)Ordered By: Chato Yang on 11-05-2024 Urea nitrogen [Mass/Vol] 17 mg/dL 4-19 [facility] Sodium levelOrdered By: Chato Yang on 11-05-2024 Sodium [Moles/Vol] 140 mmol/L 133-145 [facility] Squamous epithelial cells de tection in urine sediment by light microscopyOrdered By: Chato Yang on 11-05-2024 Epithelial cells.squamous LM Ql (Urine sed) 0-5 SEEN /hpf 5-10 [facility] Total proteinOrdered By: Gela Yang on 11-05-2024 Protein [Mass/Vol] 6.6 g/dL 5.9-8.4 [facility] Troponin T.cardiac High sens itivity method [Mass/Vol]Ordered By: Chato Yang on 11-05-2024 Troponin T High Sensitivity 14 ng/L <14 [facility] Troponin T.cardiac [Mass/vol ume] in Serum or Plasma by High sensitivity methodOrdered By: Chato Yang on 11-05-2024 Troponin T.cardiac High sensitivity method [Mass/Vol] 14 ng/L <14 [facility] Urinalysis, Completeon 11-05 BACTERIA 3+ /hpf Normal None Seen [facility] Comment on above: Order Comment: CLEAN CATCH Performed By: #### L 400.0001 ####[facility] [address] [place], [place], [id number] EPI,SQUAMOUS 0-5 SEEN Normal 5-10 [facility] Comment on above: Order Comment: CLEAN CATCH Performed By: #### L 400.0001 ####[facility] [address] [place], [place], [phone] Mucus Ql (Urine sed) 2+ /hpf Normal [facility] Comment on above: Order Comment: CLEAN CATCH Performed By: #### L 400.0001 ####[facility] [address] [place], [place], [id number] WBC 5-10 SEEN Normal 0-5 [facility] Comment on above: Order Comment: CLEAN CATCH Performed By: #### L 400.0001 ####[facility] [address] [place], [place], [id number] RBC 0 SEEN Normal 0-5 [facility] Comment on above: Order Comment: CLEAN CATCH Performed By: #### L 400.0001 ####[facility] [address] [place], [address] Urine blood detectionOrdered By: Chato Yang on 11-05-2024 Urine Occult Blood Negative Negative [facility] Urine clarityOrdered By: Gela Yang on 11-05-2024 Clarity (U) Sl. Cloudy Clear [facility] Urine color determinationOrd ered By: Chato Yang on 11-05-2024 Color (U) Yellow Yellow [facility] Urine cultureOrdered By: Edwige Gonzalez on 11-05-2024 Bacteria identified Cx Nom (U) Staphylococcus epidermidis Abnormal [facility] Urine glucose detectionOrder ed By: Chato Yang on 11-05-2024 Glucose Ql (U) Normal mg/dl Normal [facility] Urine leukocyte esterase det ection by dipstickOrdered By: Chato Yang on 11-05-2024 Leukocyte esterase Test strip Ql (U) 25 /ul High Negative [facility] Urine pHOrdered By: Chato cuenca on 11-05-2024 pH (U) 6.0 [pH] 5.0 - 8.0 [facility] Urine sediment bacteria coun t by microscopy (number/high power field)Ordered By: Chato Yang on 11-05-2024 Bacteria LM.HPF (Urine sed) [#/Area] 3 /[HPF] None Seen [facility] Urine specific gravity measu rementOrdered By: Chato Yang on 11-05-2024 Specific gravity (U) [Rel density] 1.015 1.002-1.030 [facility] Urine urobilinogen measureme ntOrdered By: Chato Yang on 11-05-2024 Urobilinogen Ql (U) Normal mg/dl Normal [facility] Urobilinogen Ql (U)Ordered B y: Chato Yang on 11-05-2024 Urine Urobilinogen Normal mg/dl Normal [facility] White blood cell (WBC) count Ordered By: Chato Yang on 11-05-2024 WBC (Bld) [#/Vol] 8.4 10*3/uL 4.4-11.0 [facility] White blood cell countOrdere d By: Chato Yang on 11-05-2024 Urine WBC 5-10 SEEN /hpf 0-5 [facility] White blood cell count 5-10 SEEN /hpf 0-5 [facility] CBC W/Diff, Automatedon 04- PATH REV Reviewed Normal [facility] Comment on above: Result Comment: SEE REPORT IN PATIENT'S EMR AMENDED REPORT 10/27/24 1146 PATH REV previously reported as: November Performed By: #### L 300.3900, L300.8000, L300.4310, L100.0100 ####[facility] [address] [place], [address] Absolute neutrophil countOrd ered By: Nelson Hobson on 09-25-2024 Neutrophils (Bld) [#/Vol] 9.9 10*3/uL High 2.0-7.7 [facility] Comment on above: Previous reported re sult: 10.1 X10^3/uLEdited by: POLLY on 09/25/24:1331 AMENDED REPORT 09/25/24 1331 Absolute Neut previously reported as: 10.1 H X10^3/uL Activated partial thrombopla stin time (aPTT) in platelet poor plasma by coagulation aOrdered By: Nelson Hobson on 09-25-2024 aPTT Coag (PPP) [Time] 25.2 s 24.1-36.2 [facility] Basophil percentageOrdered B y: Nelson Hobson on 09-25-2024 Basophils (%) (Auto) 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 [facility] Comment on above: Previous reported re sult: 0.8 %Edited by: POLLY on 09/25/24:1330 AMENDED REPORT 09/25/24 1330 BASO% previously reported as: 0.8 % Blood lymphocytes/100 leukoc ytesOrdered By: Nelson Hobson on 09-25-2024 Lymphocytes/100 WBC (Bld) 28 % 19-41 [facility] Blood metamyelocytes/100 reji kocytesOrdered By: Nelson Hobson on 09-25-2024 Metamyelocytes/100 WBC (Bld) 2 % High 0-1 [facility] Blood monocytes/100 leukocyt esOrdered By: Nelson Hobson on 09-25-2024 Monocytes/100 WBC (Bld) 7 % 0-10 [facility] Blood polychromasia detectio n by light microscopyOrdered By: Nelson Hobson on 09-25-2024 Polychromasia LM Ql (Bld) 1+ [facility] Blood segmented neutrophils/ 100 leukocytesOrdered By: Nelson Hobson on 09-25-2024 Segmented neutrophils/100 WBC (Bld) 62 % 47-70 [facility] Cells counted Molgen (Bld/Ti ss) [#]Ordered By: Nelson Hobson on 09-25-2024 Differential Total Cells Counted 100 MANUAL DIFF [facility] D-Dimer Quantitative (DVT/PE )on 09-25-2024 D-DIMER QUANT 0.43 FEU/ug/m Normal 0.27-0.49 [facility] Comment on above: Result Comment: NORM AL D-Dimer level (<0.50) indicates no DVT or PE. Performed By: #### L 300.3900, L300.8000, L300.4310, L100.0100 ####[facility] [address] [place], [address] D-dimer measurement for deep venous thrombosisOrdered By: Nelson Hobson on 09-25-2024 D-Dimer Quantitative (PE/DVT) 0.43 FEU/ug/m 0.27-0.49 [facility] Comment on above: NORMAL D-Dimer level (<0.50) indicates no DVT or PE. Eosinophil percentageOrdered By: Nelson Hobson on 09-25-2024 Eosinophils (%) (Auto) 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 [facility] Comment on above: Previous reported re sult: 0.3 %Edited by: POLLY on 09/25/24:1329 AMENDED REPORT 09/25/24 1326 EO% previously reported as: 0.3 % Erythrocyte distribution wid th (RBC) [Ratio]Ordered By: Nelson Hobson on 09-25-2024 Erythrocyte distribution width (RBC) [Entitic vol] 45.3 fL High 35.1-43.9 [facility] Erythrocyte distribution wid th ratioOrdered By: Nelson Hobson on 09-25-2024 Erythrocyte distribution width (RBC) [Ratio] 14.0 % 11.6-14.6 [facility] Hematocrit Auto (Bld) [Volum e fraction]Ordered By: Nelson Hobson on 09-25-2024 Hematocrit (Bld) [Volume fraction] 47.3 % High 37-47 [facility] Hemoglobin measurementOrdere d By: Nelson Hobson on 09-25-2024 Hemoglobin (Bld) [Mass/Vol] 16.3 g/dL High 12.0-15.0 [facility] Immature granulocytes/100 WB C Auto (Bld)Ordered By: Nelson Hobson on 09-25-2024 Immature Granulocyte % (Auto) 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 [facility] Comment on above: Previous reported re sult: 3.300 %Edited by: POLLY on 09/25/24:1330 AMENDED REPORT 09/25/24 1330 IM GRAN % previously reported as: 3.300 H % IG% - Immature Granulocytes (promyelocytes, myelocytes and metamyelocytes) > 1% indicates that a LEFT SHIFT is Present. International normalized rat io (INR) calculationOrdered By: Nelson Hobson on 09-25-2024 INR Coag (Bld) [Relative time] 1.2 {INR} [facility] Lymphocytes Auto (Unsp spec) [#/Vol]Ordered By: Nelson Hobson on 09-25-2024 Lymphocytes (Bld) [#/Vol] 4.45 10*3/uL 0.83-4.51 [facility] Comment on above: Previous reported re sult: 3.41 X10^3/uLEdited by: POLLY on 09/25/24:1331 AMENDED REPORT 09/25/24 1331 Absolute Lymph previously reported as: 3.41 X10^3/uL Lymphocytes/100 WBC Auto (Un sp spec)Ordered By: Nelson Hobson on 09-25-2024 Lymphocytes (%) (Auto) 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 [facility] Comment on above: Previous reported re sult: 21.5 %Edited by: POLLY on 09/25/24:1329 AMENDED REPORT 09/25/24 1329 LY% previously reported as: 21.5 % MCV (mean corpuscular volume ) determinationOrdered By: Nelson Hobson on 09-25-2024 MCV (RBC) [Entitic vol] 89.1 fL 81-99 [facility] Mean corpuscular hemoglobin (MCH) determinationOrdered By: Nelson Hobson on 09-25-2024 MCH (RBC) [Entitic mass] 30.7 pg 27.0-32.0 [facility] Mean corpuscular hemoglobin concentration (MCHC) determinationOrdered By: Nelson Hobson on 09-25-2024 MCHC (RBC) [Mass/Vol] 34.5 g/dL 32-36 [facility] Mean platelet volume determi nationOrdered By: Nelson Hobson on 09-25-2024 Platelet mean volume (Bld) [Entitic vol] 9.3 fL 6.2-12.0 [facility] Monocyte percentageOrdered B y: Nelson Hobson on 09-25-2024 Monocytes (%) (Auto) 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 [facility] Comment on above: Previous reported re sult: 10.6 %Edited by: POLLY on 09/25/24:1329 AMENDED REPORT 09/25/24 1329 MONO% previously reported as: 10.6 H % Myelocyte %Ordered By: Bharat Hobson on 09-25-2024 Myelocytes/100 WBC (Bld) 1 % High 0-0 [facility] Neutrophil percentageOrdered By: Nelson Hobson on 09-25-2024 Neutrophils (%) (Auto) 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 [facility] Comment on above: Previous reported re sult: 63.5 %Edited by: POLLY on 09/25/24:1329 AMENDED REPORT 09/25/24 1329 NEUT% previously reported as: 63.5 % Nucleated red blood cell per centageOrdered By: Nelson Hobson on 09-25-2024 Nucleated RBC/100 WBC (Bld) [Ratio] 0 % 0-5 [facility] Oncology Visit Reporton 09-09 Oncology Visit Report Normal [facility] Partial Thromboplast Timeon 09-25-2024 aPTT Coag (Bld) [Time] 25.2 s Normal 24.1-36.2 [facility] Comment on above: Performed By: #### L 300.3900, L300.8000, L300.4310, L100.0100 ####[facility] [address] [place], [address] Pathologist review Froilan (Unsp spec) [Interp]Ordered By: Nelson Hobson on 09-25-2024 Differential Pathologist's Review Reviewed [facility] Comment on above: Previous reported re sult: Cici saldana Edited by: ANDERS on 10/27/24:1146SEE REPORT IN PATIENT'S EMR AMENDED REPORT 10/27/24 1146 PATH REV previously reported as: Cici saldana Platelet countOrdered By: Niya Hobson on 09-25-2024 Platelets (Bld) [#/Vol] 373 10*3/uL 150-450 [facility] Platelet estimateOrdered By: Nleson Hobson on 09-25-2024 Platelets LM Ql (Bld) A ADEQ [facility] Platelets LM Ql (Bld)Ordered By: Nelson Hobson on 09-25-2024 Platelet Estimate A [facility] Polychromasia LM Ql (Bld)Ord ered By: Nelson Hobson on 09-25-2024 Polychromasia 1+ [facility] Prothrombin Time w/INRon INR Coag (PPP) [Relative time] 1.2 {INR} Normal [facility] Comment on above: Performed By: #### L 300.3900, L300.8000, L300.4310, L100.0100 ####[facility] [address] [place], [address] PT Coag (PPP) [Time] 15.6 s High 11.7-14.9 [facility] Comment on above: Performed By: #### L 300.3900, L300.8000, L300.4310, L100.0100 ####[facility] [address] [place], [address] Prothrombin timeOrdered By: Nelson Hobson on 09-25-2024 PT Coag (PPP) [Time] 15.6 s High 11.7-14.9 [facility] RBC Auto (Bld) [#/Vol]Ordere d By: Nelson Hobson on 09-25-2024 RBC (Bld) [#/Vol] 5.31 10*6/uL 4.2-5.4 [facility] Reactive lymphocyte countOrd ered By: Nelson Hobson on 09-25-2024 Reactive Lymphocytes 3+ [facility] Review by pathologistOrdered By: Nelson Hobson on 09-25-2024 Pathologist review Froilan (Unsp spec) [Interp] Reviewed [facility] Comment on above: Previous reported re sult: Cici saldana Edited by: ANDERS on 10/27/24:1146SEE REPORT IN PATIENT'S EMR AMENDED REPORT 10/27/24 1146 PATH REV previously reported as: Cici saldana Segmented neutrophils/100 WB C (Bld)Ordered By: Nelson Hobson on 09-25-2024 Neutrophils/100 WBC (Bld) 62 % 47-70 [facility] Total cell countOrdered By: Nelson Hobson on 09-25-2024 Cells counted Molgen (Bld/Tiss) [#] 100 MANUAL DIFF [facility] White blood cell (WBC) count Ordered By: Nelson Hobson on 09-25-2024 WBC (Bld) [#/Vol] 15.9 10*3/uL High 4.4-11.0 [facility] aPTT Coag (PPP) [Time]Ordere d By: Nelson Hobson on 09-25-2024 aPTT Coag (Bld) [Time] 25.2 s 24.1-36.2 [facility] Brain/Head without Contrasto n 09-16-2024 Brain/Head without Contrast Normal [facility] Emergency Department Summary on 09-16-2024 Emergency Department Summary Normal [facility] Absolute lymphocyte countOrd ered By: Ed Bowman on 09-12-2024 Lymphocytes Auto (Unsp spec) [#/Vol] 2.69 10*3/uL 0.83-4.51 [facility] Absolute neutrophil countOrd ered By: Ed Bowman on 09-12-2024 Neutrophils (Bld) [#/Vol] 6.8 10*3/uL 2.0-7.7 [facility] Anion gap in Serum or Plasma Ordered By: Ed Colby on 09-12-2024 Anion gap [Moles/Vol] 15 mmol/L 5-15 [facility] Automated lymphocyte count a s percentage of total leukocytesOrdered By: Ed Colby on 09-12-2024 Lymphocytes/100 WBC Auto (Unsp spec) 25.0 % 19-41 [facility] BUN/creatinine ratioOrdered By: Ed Colby on 09-12-2024 Urea nitrogen/Creatinine [Mass ratio] 22.0 mg/mg High 10-20 [facility] Basophil percentageOrdered B y: Ed Colby on 09-12-2024 Basophils/100 WBC (Bld) 0.8 % 0-1 [facility] Bilirubin, totalOrdered By: Ed Colby on 09-12-2024 Bilirubin [Mass/Vol] 0.40 mg/dL 0.00-1.30 [facility] CBC W/Diff, Automatedon Absolute Lymph 2.69 X10 3/uL Normal 0.83-4.51 [facility] Comment on above: Performed By: #### L 506.1001, L500.4050, L501.9985, L500.4100, L501.9520, L100.0100 ####[facility] [address] [place], [address] Absolute Neut 6.8 X10 3/uL Normal 2.0-7.7 [facility] Comment on above: Performed By: #### L 506.1001, L500.4050, L501.9985, L500.4100, L501.9520, L100.0100 ####[facility] [address] [place], [address] Basophils/100 WBC (Bld) 0.8 % Normal 0-1 [facility] Comment on above: Performed By: #### L 506.1001, L500.4050, L501.9985, L500.4100, L501.9520, L100.0100 ####[facility] [address] [place], [address] Eosinophils/100 WBC (Bld) 0.6 % Normal 0-5 [facility] Comment on above: Performed By: #### L 506.1001, L500.4050, L501.9985, L500.4100, L501.9520, L100.0100 ####[facility] [address] [place], [address] Erythrocyte distribution width (RBC) [Ratio] 14.6 % Normal 11.6-14.6 [facility] Comment on above: Performed By: #### L 506.1001, L500.4050, L501.9985, L500.4100, L501.9520, L100.0100 ####[facility] [address] [place], [address] Hematocrit (Bld) [Volume fraction] 43.0 % Normal 37-47 [facility] Comment on above: Performed By: #### L 506.1001, L500.4050, L501.9985, L500.4100, L501.9520, L100.0100 ####[facility] [address] [place], [address] Hemoglobin (Bld) [Mass/Vol] 14.9 g/dL Normal 12.0-15.0 [facility] Comment on above: Performed By: #### L 506.1001, L500.4050, L501.9985, L500.4100, L501.9520, L100.0100 ####[facility] [address] [place], [address] IG% 1.500 High 0.0-0.9 [facility] Comment on above: Result Comment: IG% - Immature Granulocytes (promyelocytes, myelocytes andmetamyelocytes) > 1% indicates that a LEFT SHIFT is Present. Performed By: #### L 506.1001, L500.4050, L501.9985, L500.4100, L501.9520, L100.0100 ####[facility] [address] [place], [address] Lymphocytes/100 WBC (Bld) 25.0 % Normal 19-41 [facility] Comment on above: Performed By: #### L 506.1001, L500.4050, L501.9985, L500.4100, L501.9520, L100.0100 ####[facility] [address] [place], [address] MCH (RBC) [Entitic mass] 30.8 pg Normal 27.0-32.0 [facility] Comment on above: Performed By: #### L 506.1001, L500.4050, L501.9985, L500.4100, L501.9520, L100.0100 ####[facility] [address] [place], [address] MCHC (RBC) [Mass/Vol] 34.7 g/dL Normal 32-36 [facility] Comment on above: Performed By: #### L 506.1001, L500.4050, L501.9985, L500.4100, L501.9520, L100.0100 ####[facility] [address] [place], [address] MCV (RBC) [Entitic vol] 88.8 fL Normal 81-99 [facility] Comment on above: Performed By: #### L 506.1001, L500.4050, L501.9985, L500.4100, L501.9520, L100.0100 ####[facility] [address] [place], [address] Monocytes/100 WBC (Bld) 8.4 % Normal 0-10 [facility] Comment on above: Performed By: #### L 506.1001, L500.4050, L501.9985, L500.4100, L501.9520, L100.0100 ####[facility] [address] [place], [address] Neutrophils/100 WBC (Bld) 63.7 % Normal 47-70 [facility] Comment on above: Performed By: #### L 506.1001, L500.4050, L501.9985, L500.4100, L501.9520, L100.0100 ####[facility] [address] [place], [address] Nucleated RBC (Bld) [#/Vol] 0 10*3/uL Normal 0-5 [facility] Comment on above: Performed By: #### L 506.1001, L500.4050, L501.9985, L500.4100, L501.9520, L100.0100 ####[facility] [address] [place], [address] Platelet mean volume (Bld) [Entitic vol] 9.5 fL Normal 6.2-12.0 [facility] Comment on above: Performed By: #### L 506.1001, L500.4050, L501.9985, L500.4100, L501.9520, L100.0100 ####[facility] [address] [place], [address] Platelets (Bld) [#/Vol] 291 10*3/uL Normal 150-450 [facility] Comment on above: Performed By: #### L 506.1001, L500.4050, L501.9985, L500.4100, L501.9520, L100.0100 ####[facility] [address] [place], [address] RBC (Bld) [#/Vol] 4.84 10*6/uL Normal 4.2-5.4 [facility] Comment on above: Performed By: #### L 506.1001, L500.4050, L501.9985, L500.4100, L501.9520, L100.0100 ####[facility] [address] [place], [place], [id number] RDW SD 47.6 fl High 35.1-43.9 [facility] Comment on above: Performed By: #### L 506.1001, L500.4050, L501.9985, L500.4100, L501.9520, L100.0100 ####[facility] [address] [place], [place], [id number] WBC (Bld) [#/Vol] 10.7 10*3/uL Normal 4.4-11.0 [facility] Comment on above: Performed By: #### L 506.1001, L500.4050, L501.9985, L500.4100, L501.9520, L100.0100 ####[facility] [address] [place], [id number] Calculated very low density lipoprotein (VLDL) cholesterol measurementOrdered By: Ed Bowman on 09-12-2024 Calculated very low density lipoprotein (VLDL) cholesterol measurement 42 mg/dL High 5-40 [facility] VLDL Cholesterol 42 mg/dL High 5-40 [facility] Carbon dioxide, total [Moles /volume] in Central venous bloodOrdered By: Ed Bowman on 09-12-2024 CO2 [Moles/Vol] 21.2 mmol/L 21.0-32.0 [facility] Chloride assayOrdered By: Mihir Bowman on 09-12-2024 Chloride [Moles/Vol] 107 mmol/L 98-108 [facility] Comprehensive Metabolic Prof ilon 09-12-2024 Albumin [Mass/Vol] 3.8 g/dL Normal 3.4-4.8 [facility] Comment on above: Performed By: #### L 506.1001, L500.4050, L501.9985, L500.4100, L501.9520, L100.0100 ####[facility] [address] [place], [address] Albumin/Globulin [Mass ratio] 1.4 {ratio} Normal 0.9-2.4 [facility] Comment on above: Performed By: #### L 506.1001, L500.4050, L501.9985, L500.4100, L501.9520, L100.0100 ####[facility] [address] [place], [address] ALK PHOS 85 U/L Normal 35-104 [facility] Comment on above: Performed By: #### L 506.1001, L500.4050, L501.9985, L500.4100, L501.9520, L100.0100 ####[facility] [address] [place], [address] ALT [Catalytic activity/Vol] 16 U/L Normal <=34 [facility] Comment on above: Performed By: #### L 506.1001, L500.4050, L501.9985, L500.4100, L501.9520, L100.0100 ####[facility] [address] [place], [address] AST [Catalytic activity/Vol] 22 U/L Normal <=31 [facility] Comment on above: Performed By: #### L 506.1001, L500.4050, L501.9985, L500.4100, L501.9520, L100.0100 ####[facility] [address] [place], [address] Bilirubin [Mass/Vol] 0.40 mg/dL Normal 0.00-1.30 [facility] Comment on above: Performed By: #### L 506.1001, L500.4050, L501.9985, L500.4100, L501.9520, L100.0100 ####[facility] [address] [place], [address] BUN/CRE 22.0 RATIO High 10-20 [facility] Comment on above: Performed By: #### L 506.1001, L500.4050, L501.9985, L500.4100, L501.9520, L100.0100 ####[facility] [address] [place], [address] Calcium [Mass/Vol] 9.3 mg/dL Normal 7.6-11.0 [facility] Comment on above: Performed By: #### L 506.1001, L500.4050, L501.9985, L500.4100, L501.9520, L100.0100 ####[facility] [address] [place], [address] Chloride [Moles/Vol] 107 mmol/L Normal 98-108 [facility] Comment on above: Performed By: #### L 506.1001, L500.4050, L501.9985, L500.4100, L501.9520, L100.0100 ####[facility] [address] [place], [address] CO2 [Moles/Vol] 21.2 mmol/L Normal 21.0-32.0 [facility] Comment on above: Performed By: #### L 506.1001, L500.4050, L501.9985, L500.4100, L501.9520, L100.0100 ####[facility] [address] [place], [address] Creatinine [Mass/Vol] 0.76 mg/dL Normal 0.70-1.20 [facility] Comment on above: Performed By: #### L 506.1001, L500.4050, L501.9985, L500.4100, L501.9520, L100.0100 ####[facility] [address] [place], [address] GAP 15 Normal 5-15 [facility] Comment on above: Performed By: #### L 506.1001, L500.4050, L501.9985, L500.4100, L501.9520, L100.0100 ####[facility] [address] [place], [address] GFR/1.73 sq M.predicted among non-blacks MDRD (S/P/Bld) [Vol rate/Area] 82 mL/min/{1.73_m2} Normal >60 [facility] Comment on above: Result Comment: mL/m in/1.73m2 CKD-EPI Creatinine Equation (2020) Performed By: #### L 506.1001, L500.4050, L501.9985, L500.4100, L501.9520, L100.0100 ####[facility] [address] [place], [address] Globulin (S) [Mass/Vol] 2.8 g/dL Normal 2.2-4.2 [facility] Comment on above: Performed By: #### L 506.1001, L500.4050, L501.9985, L500.4100, L501.9520, L100.0100 ####[facility] [address] [place], [address] Glucose [Mass/Vol] 145 mg/dL High 70-99 [facility] Comment on above: Performed By: #### L 506.1001, L500.4050, L501.9985, L500.4100, L501.9520, L100.0100 ####[facility] [address] [place], [address] Potassium [Moles/Vol] 3.2 mmol/L Low 3.3-5.1 [facility] Comment on above: Performed By: #### L 506.1001, L500.4050, L501.9985, L500.4100, L501.9520, L100.0100 ####[facility] [address] [place], [address] Sodium [Moles/Vol] 143 mmol/L Normal 133-145 [facility] Comment on above: Performed By: #### L 506.1001, L500.4050, L501.9985, L500.4100, L501.9520, L100.0100 ####[facility] [address] [place], [address] T PROT 6.6 g/dL Normal 5.9-8.4 [facility] Comment on above: Performed By: #### L 506.1001, L500.4050, L501.9985, L500.4100, L501.9520, L100.0100 ####[facility] [address] [place], [address] Urea nitrogen [Mass/Vol] 17 mg/dL Normal 4-19 [facility] Comment on above: Performed By: #### L 506.1001, L500.4050, L501.9985, L500.4100, L501.9520, L100.0100 ####[facility] [address] [place], [address] Eosinophil percentageOrdered By: [facility] on 09-12-2024 Eosinophils/100 WBC (Bld) 0.6 % 0-5 [facility] Erythrocyte distribution wid th ratioOrdered By: [facility] on 09-12-2024 Erythrocyte distribution width (RBC) [Ratio] 14.6 % 11.6-14.6 [facility] Erythrocyte distribution wid th standard deviationOrdered By: [facility] on 09-12-2024 Erythrocyte distribution width (RBC) [Entitic vol] 47.6 fL High 35.1-43.9 [facility] Erythrocyte distribution width (RBC) [Ratio] 47.6 fl High 35.1-43.9 [facility] GFR/1.73 sq M.predicted tammy g non-blacks MDRD (S/P/Bld) [Vol rate/Area]Ordered By: Ed Bowman on 09-12-2024 Estimated GFR (MDRD) Non-Af Amer 82 >60 [facility] Comment on above: mL/min/1.73m2 CKD-EP I Creatinine Equation (2020) Glomerular filtration rate ( GFR) estimation/1.73 sq m using serum, plasma, or whole bOrdered By: Ed Bowman on 09-12-2024 GFR/1.73 sq M.predicted among non-blacks MDRD (S/P/Bld) [Vol rate/Area] 82 mL/min/{1.73_m2} >60 [facility] Comment on above: mL/min/1.73m2 CKD-EP I Creatinine Equation (2020) Hematocrit Auto (Bld) [Volum e fraction]Ordered By: Ed Bowman on 09-12-2024 Hematocrit (Bld) [Volume fraction] 43.0 % 37-47 [facility] Hemoglobin A1con 09-12-2024 HbA1c (Bld) [Mass fraction] 5.5 % Low <=5.6 [facility] Comment on above: Order Comment: [id number] Performed By: #### L 506.1001, L500.4050, L501.9985, L500.4100, L501.9520, L100.0100 ####[facility] [address] [place], [address] Hemoglobin A1c percentageOrd ered By: Ed Bowman on 09-12-2024 HbA1c (Bld) [Mass fraction] 5.5 % Low >5.7 [facility] Hemoglobin measurementOrdere d By: Ed Bowman on 09-12-2024 Hemoglobin (Bld) [Mass/Vol] 14.9 g/dL 12.0-15.0 [facility] Immature granulocytes/100 WB C Auto (Bld)Ordered By: Ed Bowman on 09-12-2024 Immature granulocytes/100 WBC (Bld) 1.500 % High 0.0-0.9 [facility] Comment on above: IG% - Immature Granu locytes (promyelocytes, myelocytes and metamyelocytes) > 1% indicates that a LEFT SHIFT is Present. L506.1001on 09-12-2024 Vitamin D 25-OH 35.5 ng/mL Normal 30-100 [facility] Comment on above: Result Comment: Luda min D StatusDeficiency: <20 ng/mL (50nmol/L)Insufficiency: 20-30 ng/mL (50-75 nmol/L)Sufficiency: 30-100 ng/mL (75-250 nmol/L)Toxicity: >100 ng/mL (>250 nmol/L) Performed By: #### L 506.1001, L500.4050, L501.9985, L500.4100, L501.9520, L100.0100 ####[facility] [address] [place], [place], [id number] LDL calc ser/plasOrdered By: Ed Bowman on 09-12-2024 Cholesterol in LDL [Mass/Vol] 136 mg/dL [facility] Comment on above: Cfkbwliudg=579-212 m g/dL & Higher Lhml=778 mg/dL or greater LDL Cholesterol, Calculated 136 mg/dL [facility] Comment on above: Otfyttmrlc=933-309 m g/dL & Higher Tfqx=703 mg/dL or greater Laboratory - Chemistry and C hemistry - challengeOrdered By: Ed Bowman on 09-12-2024 AST [Catalytic activity/Vol] 22 U/L <32 [facility] Lipid Profileon 09-12-2024 CHOL:HDL 4.53 Normal [facility] Comment on above: Performed By: #### L 506.1001, L500.4050, L501.9985, L500.4100, L501.9520, L100.0100 ####[facility] [address] [place], [place], [id number] Cholesterol [Mass/Vol] 229 mg/dL High <=200 [facility] Comment on above: Result Comment: Chol esterol level, Desirable <200 mg/dLBorderline high cholesterol 200-239 mg/dLHigh cholesterol >=240 mg/dLRecommendations of the NCEP Adult Treatment Panel for thefollowing risk-cutoff thresholds for the [place] Americanpopulation. Performed By: #### L 506.1001, L500.4050, L501.9985, L500.4100, L501.9520, L100.0100 ####[facility] [address] [place], [address] Cholesterol in HDL [Mass/Vol] 51 mg/dL Normal [facility] Comment on above: Result Comment: Michelle onal Cholesterol Education Program (NCEP) guidelines:<40 mg/dL: Low HDL-cholesterol (major risk factor for CHD)>= 60 mg/dL: High HDL-cholesterol (negative risk factor forCHD)HDL-cholesterol is affected by a number of factors, e.g.smoking, exercise, hormones, sex and age. Performed By: #### L 506.1001, L500.4050, L501.9985, L500.4100, L501.9520, L100.0100 ####[facility] [address] [place], [address] Cholesterol in LDL [Mass/Vol] 136 mg/dL Normal [facility] Comment on above: Result Comment: Bord lcjjsa=637-068 mg/dL Higher Flsw=624 mg/dL or greater Performed By: #### L 506.1001, L500.4050, L501.9985, L500.4100, L501.9520, L100.0100 ####[facility] [address] [place], [address] Cholesterol in VLDL [Mass/Vol] 42 mg/dL High 5-40 [facility] Comment on above: Performed By: #### L 506.1001, L500.4050, L501.9985, L500.4100, L501.9520, L100.0100 ####[facility] [address] [place], [address] Triglyceride [Mass/Vol] 210 mg/dL High [facility] Comment on above: Result Comment: The drugs N-Acetylcysteine and Metamizole may falselydepress this assay.Normal range: <150 mg/dLBorderline High: 150-199 mg/dLHigh: 200-499 mg/dLVery High: >500 mg/dL Performed By: #### L 506.1001, L500.4050, L501.9985, L500.4100, L501.9520, L100.0100 ####[facility] [address] [place], [address] Lymphocytes Auto (Unsp spec) [#/Vol]Ordered By: Ed Bowman on 09-12-2024 Lymphocytes (Bld) [#/Vol] 2.69 10*3/uL 0.83-4.51 [facility] Lymphocytes/100 WBC Auto (Un sp spec)Ordered By: Ed Bowman on 09-12-2024 Lymphocytes/100 WBC (Bld) 25.0 % 19-41 [facility] MCV (mean corpuscular volume ) determinationOrdered By: Ed Bowman on 09-12-2024 MCV (RBC) [Entitic vol] 88.8 fL 81-99 [facility] Mean corpuscular hemoglobin (MCH) determinationOrdered By: [facility] on 09-12-2024 MCH (RBC) [Entitic mass] 30.8 pg 27.0-32.0 [facility] Mean corpuscular hemoglobin concentration (MCHC) determinationOrdered By: Ed Bowman 09-12-2024 MCHC (RBC) [Mass/Vol] 34.7 g/dL 32-36 [facility] Mean platelet volume determi nationOrdered By: Ed Bowman on 09-12-2024 Platelet mean volume (Bld) [Entitic vol] 9.5 fL 6.2-12.0 [facility] Monocyte percentageOrdered B y: Ed Bowman on 09-12-2024 Monocytes/100 WBC (Bld) 8.4 % 0-10 [facility] Neutrophil percentageOrdered By: Ed Bowman on 09-12-2024 Neutrophils/100 WBC (Bld) 63.7 % 47-70 [facility] Nucleated red blood cell per centageOrdered By: Ed Bowman on 09-12-2024 Nucleated RBC/100 WBC (Bld) [Ratio] 0 % 0-5 [facility] Platelet countOrdered By: Mihri Bowman on 09-12-2024 Platelets (Bld) [#/Vol] 291 10*3/uL 150-450 [facility] Potassium (Unsp spec) [Mass/ Vol]Ordered By: Ed Bowman on 09-12-2024 Potassium [Moles/Vol] 3.2 mmol/L Low 3.3-5.1 [facility] Potassium measurement (mass/ volume)Ordered By: Ed Bowman on 09-12-2024 Potassium (Unsp spec) [Mass/Vol] 3.2 mmol/L Low 3.3-5.1 [facility] RBC Auto (Bld) [#/Vol]Ordere d By: Ed Bowman on 09-12-2024 RBC (Bld) [#/Vol] 4.84 10*6/uL 4.2-5.4 [facility] Screening total cholesterol/ high density lipoprotein (HDL) cholesterol ratioOrdered By: Ed Bowman on 09-12-2024 Cholesterol.total/Mikayla sterol in HDL [Mass ratio] 4.53 {ratio} [facility] Serum creatinine measurement (mass/volume)Ordered By: Ed Bowman on 09-12-2024 Creatinine [Mass/Vol] 0.76 mg/dL 0.70-1.20 [facility] Serum globulin measurementOr dered By: Ed Bowman on 09-12-2024 Globulin (S) [Mass/Vol] 2.8 g/dL 2.2-4.2 [facility] Serum glucose measurement (m ass/volume)Ordered By: Ed Bowman on 09-12-2024 Glucose [Mass/Vol] 145 mg/dL High 70-99 [facility] Serum or plasma alanine cooper otransferase (ALT) measurementOrdered By: Ed Bowman 09-12-2024 ALT [Catalytic activity/Vol] 16 U/L <35 [facility] Serum or plasma albumin raine urement (mass/volume)Ordered By: Ed Bowman on 09-12-2024 Albumin [Mass/Vol] 3.8 g/dL 3.4-4.8 [facility] Serum or plasma albumin/glob ulin mass ratioOrdered By: Ed Bowman on 09-12-2024 Albumin/Globulin [Mass ratio] 1.4 {ratio} 0.9-2.4 [facility] Serum or plasma alkaline haven sphatase measurementOrdered By: Ed Bowman 09-12-2024 ALP [Catalytic activity/Vol] 85 U/L 35-104 [facility] Serum or plasma calcium raine urement (mass/volume)Ordered By: Ed Bowman 09-12-2024 Calcium [Mass/Vol] 9.3 mg/dL 7.6-11.0 [facility] Serum or plasma cholesterol in HDL measurement (mass/volume)Ordered By: Ed Bowman on 09-12-2024 Cholesterol in HDL [Mass/Vol] 51 mg/dL >40 [facility] Comment on above: National Cholesterol Education Program (NCEP) guidelines:<40 mg/dL: Low HDL-cholesterol (major risk factor for CHD)>= 60 mg/dL: High HDL-cholesterol (negative risk factor for CHD)HDL-cholesterol is affected by a number of factors, e.g. smoking, exercise, hormones, sex and age. Serum or plasma cholesterol measurement (mass/volume)Ordered By: Ed Bowman 09-12-2024 Cholesterol [Mass/Vol] 229 mg/dL High <201 [facility] Comment on above: Cholesterol level, D esirable <200 mg/dLBorderline high cholesterol 200-239 mg/dLHigh cholesterol >=240 mg/dLRecommendations of the NCEP Adult Treatment Panel for the following risk-cutoff thresholds for the [place] population. Serum or plasma urea nitroge n measurement (mass/volume)Ordered By: Ed Bowman 09-12-2024 Urea nitrogen [Mass/Vol] 17 mg/dL 4-19 [facility] Sodium levelOrdered By: Ed Bowman 09-12-2024 Sodium [Moles/Vol] 143 mmol/L 133-145 [facility] TSH DL <= 0.005 mIU/L QnOrde red By: Ed Bowman on 09-12-2024 Thyroid Stimulating Hormone (TSH) 1.710 uIU/mL 0.300-4.200 [facility] TSH Qn 1.710 uIU/mL 0.300-4.200 [facility] Thyroid Stim Hormone (TSH)on 03-04-2025 TSH 1.710 uIU/mL Normal 0.300-4.200 [facility] Comment on above: Performed By: #### L 506.1001, L500.4050, L501.9985, L500.4100, L501.9520, L100.0100 ####[facility] [address] [place], [address] Total proteinOrdered By: Ed Bowman on 09-12-2024 Protein [Mass/Vol] 6.6 g/dL 5.9-8.4 [facility] Triglycerides measurementOrd ered By: Ed Bowman on 09-12-2024 Triglyceride [Mass/Vol] 210 mg/dL High <199 [facility] Comment on above: The drugs N-Acetylcy steine and Metamizole may falsely depress this assay. Normal range: <150 mg/dLBorderline High: 150-199 mg/dLHigh: 200-499 mg/dLVery High: >500 mg/dL Vitamin D, 25-hydroxyOrdered By: Ed Bowman on 09-12-2024 Vitamin D 25-Hydroxy 35.5 ng/mL 30-100 [facility] Comment on above: Vitamin D StatusDefi ciency: <20 ng/mL (50nmol/L)Insufficiency: 20-30 ng/mL (50-75 nmol/L)Sufficiency: 30-100 ng/mL (75-250 nmol/L)Toxicity: >100 ng/mL (>250 nmol/L) White blood cell (WBC) count Ordered By: Ed Bowman on 09-12-2024 WBC (Bld) [#/Vol] 10.7 10*3/uL 4.4-11.0 [facility] MR/BMS.BVSon 07-18-2024 MR/BMS.BVS Normal [facility] Venous Duplex US, Unilateral on 06-30-2024 Venous Duplex US, Unilateral Normal [facility] 20-OQ-Owcxisr DOrdered By: Fredo Bowman on 06-13-2024 Vitamin D 25-Hydroxy 45.7 ng/mL [facility] Comment on above: Vitamin D 25(OH) Sta tus Range Deficiency <20 ng/mL (50nmol/L) Insufficiency 20 - 30 ng/mL (50 - 75 nmol/L) Sufficiency 30 - 100 ng/mL (75 - 250 nmol/L) Toxicity >100 ng/mL (>250 nmol/L) Absolute neutrophil countOrd ered By: Ed Colby on 06-13-2024 Neutrophils (Bld) [#/Vol] 4.8 10*3/uL 2.0-7.7 [facility] Albumin to globulin ratioOrd ered By: Ed Bowman on 06-13-2024 Albumin/Globulin [Mass ratio] 1.0 {ratio} 0.9-2.4 [facility] Basophil percentageOrdered B y: Ed Bowman on 06-13-2024 Basophils/100 WBC (Bld) 0.7 % 0-1 [facility] Bilirubin, totalOrdered By: Ed Bowman on 06-13-2024 Bilirubin [Mass/Vol] 0.50 mg/dL 0.20-1.00 [facility] Comment on above: For patients on eltr ombopag therapy, use of Dimension Rayne TBIL is not recommended. Blood urea nitrogen (BUN)/cr eatinine ratioOrdered By: Ed Bowman on 06-13-2024 Urea nitrogen/Creatinine [Mass ratio] 16.7 mg/mg 10-20 [facility] CBC W/Diff, Automatedon Absolute Lymph 2.32 X10 3/uL Normal 0.83-4.51 [facility] Comment on above: Performed By: #### L 100.0100, L500.4050, L501.9520, L500.4100, L506.1000 ####[facility] [address] [place], [address] Absolute Neut 4.8 X10 3/uL Normal 2.0-7.7 [facility] Comment on above: Performed By: #### L 100.0100, L500.4050, L501.9520, L500.4100, L506.1000 ####[facility] [address] [place], [address] Basophils/100 WBC (Bld) 0.7 % Normal 0-1 [facility] Comment on above: Performed By: #### L 100.0100, L500.4050, L501.9520, L500.4100, L506.1000 ####[facility] [address] [place], [address] Eosinophils/100 WBC (Bld) 1.6 % Normal 0-5 [facility] Comment on above: Performed By: #### L 100.0100, L500.4050, L501.9520, L500.4100, L506.1000 ####[facility] [address] [place], [address] Erythrocyte distribution width (RBC) [Ratio] 13.5 % Normal 11.6-14.6 [facility] Comment on above: Performed By: #### L 100.0100, L500.4050, L501.9520, L500.4100, L506.1000 ####[facility] [address] [place], [address] Hematocrit (Bld) [Volume fraction] 43.3 % Normal 37-47 [facility] Comment on above: Performed By: #### L 100.0100, L500.4050, L501.9520, L500.4100, L506.1000 ####[facility] [address] [place], [address] Hemoglobin (Bld) [Mass/Vol] 13.9 g/dL Normal 12.0-15.0 [facility] Comment on above: Performed By: #### L 100.0100, L500.4050, L501.9520, L500.4100, L506.1000 ####[facility] [address] [place], [address] IG% 0.900 Normal 0.0-0.9 [facility] Comment on above: Result Comment: IG% - Immature Granulocytes (promyelocytes, myelocytes andmetamyelocytes) > 1% indicates that a LEFT SHIFT is Present. Performed By: #### L 100.0100, L500.4050, L501.9520, L500.4100, L506.1000 ####[facility] [address] [place], [address] Lymphocytes/100 WBC (Bld) 28.5 % Normal 19-41 [facility] Comment on above: Performed By: #### L 100.0100, L500.4050, L501.9520, L500.4100, L506.1000 ####[facility] [address] [place], [address] MCH (RBC) [Entitic mass] 29.0 pg Normal 27.0-32.0 [facility] Comment on above: Performed By: #### L 100.0100, L500.4050, L501.9520, L500.4100, L506.1000 ####[facility] [address] [place], [address] MCHC (RBC) [Mass/Vol] 32.1 g/dL Normal 32-36 [facility] Comment on above: Performed By: #### L 100.0100, L500.4050, L501.9520, L500.4100, L506.1000 ####[facility] [address] [place], [address] MCV (RBC) [Entitic vol] 90.4 fL Normal 81-99 [facility] Comment on above: Performed By: #### L 100.0100, L500.4050, L501.9520, L500.4100, L506.1000 ####[facility] [address] [place], [address] Monocytes/100 WBC (Bld) 9.4 % Normal 0-10 [facility] Comment on above: Performed By: #### L 100.0100, L500.4050, L501.9520, L500.4100, L506.1000 ####[facility] [address] [place], [address] Neutrophils/100 WBC (Bld) 58.9 % Normal 47-70 [facility] Comment on above: Performed By: #### L 100.0100, L500.4050, L501.9520, L500.4100, L506.1000 ####[facility] [address] [place], [address] Nucleated RBC (Bld) [#/Vol] 0 10*3/uL Normal 0-5 [facility] Comment on above: Performed By: #### L 100.0100, L500.4050, L501.9520, L500.4100, L506.1000 ####[facility] [address] [place], [address] Platelet mean volume (Bld) [Entitic vol] 10.1 fL Normal 6.2-12.0 [facility] Comment on above: Performed By: #### L 100.0100, L500.4050, L501.9520, L500.4100, L506.1000 ####[facility] [address] [place], [address] Platelets (Bld) [#/Vol] 320 10*3/uL Normal 150-450 [facility] Comment on above: Performed By: #### L 100.0100, L500.4050, L501.9520, L500.4100, L506.1000 ####[facility] [address] [place], [address] RBC (Bld) [#/Vol] 4.79 10*6/uL Normal 4.2-5.4 [facility] Comment on above: Performed By: #### L 100.0100, L500.4050, L501.9520, L500.4100, L506.1000 ####[facility] [address] [place], [address] RDW SD 44.5 fl High 35.1-43.9 [facility] Comment on above: Performed By: #### L 100.0100, L500.4050, L501.9520, L500.4100, L506.1000 ####[facility] [address] [place], [place], [id number] WBC (Bld) [#/Vol] 8.2 10*3/uL Normal 4.4-11.0 [facility] Comment on above: Performed By: #### L 100.0100, L500.4050, L501.9520, L500.4100, L506.1000 ####[facility] [address] [place], [place], [id number] Calprotectin, Stoolon [address] 11 ug/g Normal 0-120 [facility] Comment on above: Result Comment: Conc entration Interpretation Follow-Up< 5 - 50 ug/g Normal None>50 -120 ug/g Borderline Re-evaluate in 4-6 weeks >120 ug/g Abnormal Repeat as clinically indicatedPerformed at: [facility] [address] [id number] Director: Jose Gaines MD, Phone: [phone] Performed By: #### L 7000.0700, M100.0605 ####[facility] [address] [place], [place], [id number] Carbon dioxide measurementOr dered By: Ed Bowman on 06-13-2024 CO2 [Moles/Vol] 27.0 mmol/L 21.0-32.0 [facility] Chloride measurementOrdered By: Ed Bowman on 06-13-2024 Chloride [Moles/Vol] 111 mmol/L High 98-107 [facility] Metabolic Prof ilon 06-13-2024 Albumin [Mass/Vol] 3.4 g/dL Normal 3.2-5.0 [facility] Comment on above: Performed By: #### L 100.0100, L500.4050, L501.9520, L500.4100, L506.1000 ####[facility] [address] [place], [address] Albumin/Globulin [Mass ratio] 1.0 {ratio} Normal 0.9-2.4 [facility] Comment on above: Performed By: #### L 100.0100, L500.4050, L501.9520, L500.4100, L506.1000 ####[facility] [address] [place], [address] ALK P 85 U/L Normal 45-117 [facility] Comment on above: Performed By: #### L 100.0100, L500.4050, L501.9520, L500.4100, L506.1000 ####[facility] [address] [place], [address] ALT [Catalytic activity/Vol] 18 U/L Normal 13-56 [facility] Comment on above: Performed By: #### L 100.0100, L500.4050, L501.9520, L500.4100, L506.1000 ####[facility] [address] [place], [address] AST [Catalytic activity/Vol] 20 U/L Normal 15-37 [facility] Comment on above: Performed By: #### L 100.0100, L500.4050, L501.9520, L500.4100, L506.1000 ####[facility] [address] [place], [address] Bilirubin [Mass/Vol] 0.50 mg/dL Normal 0.20-1.00 [facility] Comment on above: Result Comment: For patients on eltrombopag therapy, use of Dimension Rayne TBIL is not recommended. Performed By: #### L 100.0100, L500.4050, L501.9520, L500.4100, L506.1000 ####[facility] [address] [place], [address] BUN/CRE 16.7 RATIO Normal 10-20 [facility] Comment on above: Performed By: #### L 100.0100, L500.4050, L501.9520, L500.4100, L506.1000 ####[facility] [address] [place], [address] CA,Total 9.4 mg/dL Normal 8.5-10.1 [facility] Comment on above: Performed By: #### L 100.0100, L500.4050, L501.9520, L500.4100, L506.1000 ####[facility] [address] [place], [address] Chloride [Moles/Vol] 111 mmol/L High 98-107 [facility] Comment on above: Performed By: #### L 100.0100, L500.4050, L501.9520, L500.4100, L506.1000 ####[facility] [address] [place], [address] CO2 [Moles/Vol] 27.0 mmol/L Normal 21.0-32.0 [facility] Comment on above: Performed By: #### L 100.0100, L500.4050, L501.9520, L500.4100, L506.1000 ####[facility] [address] [place], [address] Creatinine [Mass/Vol] 0.78 mg/dL Normal 0.55-1.02 [facility] Comment on above: Result Comment: The validity of the calculated GFR GFRAA in patients over70 years has not been determined. Clinical correlation isessential. Performed By: #### L 100.0100, L500.4050, L501.9520, L500.4100, L506.1000 ####[facility] [address] [place], [address] EST GFR - AA 92 mL/min Normal >60 [facility] Comment on above: Result Comment: Afri can Mauritanian GFR Calc Performed By: #### L 100.0100, L500.4050, L501.9520, L500.4100, L506.1000 ####[facility] [address] [place], [address] GAP 5 Normal 5-15 [facility] Comment on above: Performed By: #### L 100.0100, L500.4050, L501.9520, L500.4100, L506.1000 ####[facility] [address] [place], [address] GFR/1.73 sq M.predicted among non-blacks MDRD (S/P/Bld) [Vol rate/Area] 76 mL/min/{1.73_m2} Normal >60 [facility] Comment on above: Result Comment: Non- GFR Calc Performed By: #### L 100.0100, L500.4050, L501.9520, L500.4100, L506.1000 ####[facility] [address] [place], [address] Globulin (S) [Mass/Vol] 3.4 g/dL Normal 2.2-4.2 [facility] Comment on above: Performed By: #### L 100.0100, L500.4050, L501.9520, L500.4100, L506.1000 ####[facility] [address] [place], [address] Glucose [Mass/Vol] 109 mg/dL High 74-106 [facility] Comment on above: Result Comment: Fast ing Glucose result from 100 to 125 mg/dLsuggests IMPAIRED HOMEOSTASIS per A.D.A. criteria. Performed By: #### L 100.0100, L500.4050, L501.9520, L500.4100, L506.1000 ####[facility] [address] [place], [address] Potassium [Moles/Vol] 3.5 mmol/L Normal 3.5-5.1 [facility] Comment on above: Performed By: #### L 100.0100, L500.4050, L501.9520, L500.4100, L506.1000 ####[facility] [address] [place], [address] Sodium [Moles/Vol] 142 mmol/L Normal 136-145 [facility] Comment on above: Performed By: #### L 100.0100, L500.4050, L501.9520, L500.4100, L506.1000 ####[facility] [address] [place], [address] T PROT 6.8 g/dL Normal 6.4-8.2 [facility] Comment on above: Performed By: #### L 100.0100, L500.4050, L501.9520, L500.4100, L506.1000 ####[facility] [address] [place], [address] Urea nitrogen [Mass/Vol] 13 mg/dL Normal 7-18 [facility] Comment on above: Performed By: #### L 100.0100, L500.4050, L501.9520, L500.4100, L506.1000 ####[facility] [address] [place], [address] Eosinophil percentageOrdered By: Ed Bowman on 06-13-2024 Eosinophils/100 WBC (Bld) 1.6 % 0-5 [facility] Erythrocyte distribution wid th ratioOrdered By: Ed Bowman on 06-13-2024 Erythrocyte distribution width (RBC) [Ratio] 13.5 % 11.6-14.6 [facility] Erythrocyte distribution wid th standard deviationOrdered By: Ed Bowman on 06-13-2024 Erythrocyte distribution width (RBC) [Entitic vol] 44.5 fL High 35.1-43.9 [facility] Estimated glomerular filtrat ion rate (GFR) AmericanOrdered By: Ed Bowman on 06-13-2024 Estimated GFR (MDRD) Amer 92 mL/min >60 [facility] Comment on above: GFR Calc Glomerular filtration rate ( GFR) estimationOrdered By: Ed Bowman on 06-13-2024 Estimated GFR (MDRD) Non-Af Amer 76 mL/min >60 [facility] Comment on above: Non- GFR Calc Glucose measurementOrdered B y: Ed Bowman on 06-13-2024 Glucose [Mass/Vol] 109 mg/dL High 74-106 [facility] Comment on above: Fasting Glucose resu lt from 100 to 125 mg/dL suggests IMPAIRED HOMEOSTASIS per A.D.A. criteria. Hematocrit Auto (Bld) [Volum e fraction]Ordered By: Ed Bowman on 06-13-2024 Hematocrit (Bld) [Volume fraction] 43.3 % 37-47 [facility] Hemoglobin measurementOrdere d By: Ed Bowman on 06-13-2024 Hemoglobin (Bld) [Mass/Vol] 13.9 g/dL 12.0-15.0 [facility] High density lipoprotein (HD L) measurementOrdered By: Ed Bowman on 06-13-2024 Cholesterol in HDL [Mass/Vol] 38 mg/dL Low >40 [facility] Comment on above: The drugs N-Acetylcy steine and Metamizole may falsely depress this assay. Reference Range HDL <40 mg/dL Low HDL Cholesterol HDL >or= 60 mg/dL High HDL Cholesterol Immature granulocytes/100 WB C Auto (Bld)Ordered By: Ed Bowman on 06-13-2024 Immature granulocytes/100 WBC (Bld) 0.900 % 0.0-0.9 [facility] Comment on above: IG% - Immature Granu locytes (promyelocytes, myelocytes and metamyelocytes) > 1% indicates that a LEFT SHIFT is Present. Knee 3 Viewson 06-13-2024 Knee 3 Views Normal [facility] Laboratory - Chemistry and C hemistry - challengeOrdered By: Ed Bowman on 06-13-2024 AST [Catalytic activity/Vol] 20 U/L 15-37 [facility] Lipid Profileon 06-13-2024 Cholesterol [Mass/Vol] 215 mg/dL High 200 [facility] Comment on above: Result Comment: <200 mg/dL Desirable 200-240 mg/dL Borderline >240 mg/dL High Risk Performed By: #### L 100.0100, L500.4050, L501.9520, L500.4100, L506.1000 ####[facility] [address] [place], [address] Cholesterol in HDL [Mass/Vol] 38 mg/dL Low [facility] Comment on above: Result Comment: The drugs N-Acetylcysteine and Metamizole may falselydepress this assay. Reference Range HDL <40 mg/dL Low HDL Cholesterol HDL >or= 60 mg/dL High HDL Cholesterol Performed By: #### L 100.0100, L500.4050, L501.9520, L500.4100, L506.1000 ####[facility] [address] [place], [address] Cholesterol in LDL [Mass/Vol] 141 mg/dL High 0-130 [facility] Comment on above: Performed By: #### L 100.0100, L500.4050, L501.9520, L500.4100, L506.1000 ####[facility] [address] [place], [address] Cholesterol in VLDL [Mass/Vol] 36 mg/dL Normal 5-40 [facility] Comment on above: Performed By: #### L 100.0100, L500.4050, L501.9520, L500.4100, L506.1000 ####[facility] [address] [place], [address] Triglyceride [Mass/Vol] 179 mg/dL Normal [facility] Comment on above: Result Comment: The drugs N-Acetylcysteine and Metamizole may falselydepress this assay.Serum Triglycerides Reference Interval Normal <150 mg/dL Borderline high 150 - 199 mg/dL High 200 - 499 mg/dL Very High > or = 500 mg/dL Performed By: #### L 100.0100, L500.4050, L501.9520, L500.4100, L506.1000 ####[facility] [address] [place], [address] Low density lipoprotein (LDL ) cholesterol measurementOrdered By: Ed Bowman on 06-13-2024 Cholesterol in LDL [Mass/Vol] 141 mg/dL High 0-130 [facility] Lymphocytes Auto (Unsp spec) [#/Vol][facility] Lymphocytes (Bld) [#/Vol] 2.32 10*3/uL 0.83-4.51 [facility] Lymphocytes/100 WBC Auto (Un sp spec)Ordered By: Ed Bowman on 06-13-2024 Lymphocytes/100 WBC (Bld) 28.5 % 19-41 [facility] MCV (mean corpuscular volume ) determinationOrdered By: Ed Bowman on 06-13-2024 MCV (RBC) [Entitic vol] 90.4 fL 81-99 [facility] Mean corpuscular hemoglobin (MCH) determinationOrdered By: Ed Bowman on 06-13-2024 MCH (RBC) [Entitic mass] 29.0 pg 27.0-32.0 [facility] Mean corpuscular hemoglobin concentration (MCHC) determinationOrdered By: Ed Bowman on 06-13-2024 MCHC (RBC) [Mass/Vol] 32.1 g/dL 32-36 [facility] Mean platelet volume determi nationOrdered By: Ed Bowman on 06-13-2024 Platelet mean volume (Bld) [Entitic vol] 10.1 fL 6.2-12.0 [facility] Monocyte percentageOrdered B y: Ed Bowman on 06-13-2024 Monocytes/100 WBC (Bld) 9.4 % 0-10 [facility] Neutrophil percentageOrdered By: Ed Colby on 06-13-2024 Neutrophils/100 WBC (Bld) 58.9 % 47-70 [facility] Nucleated red blood cell per centageOrdered By: Ed Bowman on 06-13-2024 Nucleated RBC/100 WBC (Bld) [Ratio] 0 % 0-5 [facility] Ova and Parasites 8623on OP Normal [facility] Comment on above: Performed By: #### M 600.5000 ####[facility] [address] [place], [address] Platelet countOrdered By: Mihir Bowman on 06-13-2024 Platelets (Bld) [#/Vol] 320 10*3/uL 150-450 [facility] Potassium measurementOrdered By: Ed Bowman on 06-13-2024 Potassium [Moles/Vol] 3.5 mmol/L 3.5-5.1 [facility] RBC Auto (Bld) [#/Vol]Ordere d By: Ed Bowman on 06-13-2024 RBC (Bld) [#/Vol] 4.79 10*6/uL 4.2-5.4 [facility] Serum anion gap measurementO rdered By: Ed Bowman on 06-13-2024 Anion gap [Moles/Vol] 5 mmol/L 5-15 [facility] Serum globulin measurementOr dered By: Ed Bowman on 06-13-2024 Globulin (S) [Mass/Vol] 3.4 g/dL 2.2-4.2 [facility] Serum or plasma alanine cooper otransferase (ALT) measurementOrdered By: Ed Bowman on 06-13-2024 ALT [Catalytic activity/Vol] 18 U/L 13-56 [facility] Serum or plasma albumin raine urement (mass/volume)Ordered By: Ed Bowman on 06-13-2024 Albumin [Mass/Vol] 3.4 g/dL 3.2-5.0 [facility] Serum or plasma alkaline haven sphatase measurementOrdered By: Ed Bowman 06-13-2024 ALP [Catalytic activity/Vol] 85 U/L 45-117 [facility] Serum or plasma calcium raine urement (mass/volume)Ordered By: Ed Bowman on 06-13-2024 Calcium [Mass/Vol] 9.4 mg/dL 8.5-10.1 [facility] Serum or plasma cholesterol measurement (mass/volume)Ordered By: Ed Bowman 06-13-2024 Cholesterol [Mass/Vol] 215 mg/dL High <200 [facility] Comment on above: <200 mg/dL Desirable 200-240 mg/dL Borderline >240 mg/dL High Risk Serum or plasma creatinine m easurement (mass/volume)Ordered By: Ed Bowman on 06-13-2024 Creatinine [Mass/Vol] 0.78 mg/dL 0.55-1.02 [facility] Comment on above: The validity of the calculated GFR & GFRAA in patients over 70 years has not been determined. Clinical correlation is essential. Serum or plasma urea nitroge n measurement (mass/volume)Ordered By: Ed Bowman on 06-13-2024 Urea nitrogen [Mass/Vol] 13 mg/dL 7-18 [facility] Sodium levelOrdered By: Ed Bowman on 06-13-2024 Sodium [Moles/Vol] 142 mmol/L 136-145 [facility] TSH QnOrdered By: Ed luna n 06-13-2024 Thyroid Stimulating Hormone (TSH) 0.810 uIU/mL 0.358-3.740 [facility] Thyroid Stim Hormone (TSH)on 06-13-2024 TSH 0.810 uIU/mL Normal 0.358-3.740 [facility] Comment on above: Performed By: #### L 100.0100, L500.4050, L501.9520, L500.4100, L506.1000 ####[facility] [address] [place], [place], [id number] Total proteinOrdered By: Ed Bowman on 06-13-2024 Protein [Mass/Vol] 6.8 g/dL 6.4-8.2 [facility] Triglycerides measurementOrd ered By: Ed Bowman on 06-13-2024 Triglyceride [Mass/Vol] 179 mg/dL <199 [facility] Comment on above: The drugs N-Acetylcy steine and Metamizole may falsely depress this assay.Serum Triglycerides Reference Interval Normal <150 mg/dL Borderline high 150 - 199 mg/dL High 200 - 499 mg/dL Very High > or = 500 mg/dL Very low density lipoprotein (VLDL) cholesterol measurementOrdered By: Ed Bowman on 06-13-2024 VLDL Cholesterol 36 mg/dL 5-40 [facility] Vitamin D,25 Hydroxyon 06-13 Vitamin D 25-OH 45.7 ng/mL Normal [facility] Comment on above: Result Comment: Luda min D 25(OH) Status Range Deficiency <20 ng/mL (50nmol/L) Insufficiency 20 - 30 ng/mL (50 - 75 nmol/L) Sufficiency 30 - 100 ng/mL (75 - 250 nmol/L) Toxicity >100 ng/mL (>250 nmol/L) Performed By: #### L 100.0100, L500.4050, L501.9520, L500.4100, L506.1000 ####[facility] [address] [place], [place], [id number] White blood cell (WBC) count Ordered By: Ed Bowman on 06-13-2024 WBC (Bld) [#/Vol] 8.2 10*3/uL 4.4-11.0 [facility] Calprotectin stoolOrdered By : Nelson Hobson on 06-08-2024 Stool Calprotectin 11 ug/g 0-120 [facility] Comment on above: Concentration Interp retation Follow-Up< 5 - 50 ug/g Normal None>50 -120 ug/g Borderline Re-evaluate in 4-6 weeks >120 ug/g Abnormal Repeat as clinically indicatedPerformed at: - [facility] [address] [id number] Director: Jose Gaines MD, Phone: [phone] Lactoferrin IA Ql (Stl)Order ed By: Nelson Hobson on 06-08-2024 Stool Lactoferrin [facility] Stool Lactoferrin [facility] Ova and parasitesOrdered By: Nelson Hobson on 06-08-2024 Ova and Parasites [facility] Ova and Parasites [facility] Stool Lactoferrin/WBCon 05-13 WBCST Normal Reference Ran ge = Negative Fecal WBC Lactoferrin Negative: No Fecal WBC Lactoferrin present Normal [facility] Comment on above: Performed By: #### L 7000.0700, M100.0605 ####[facility] [address] [place], [address] Absolute neutrophil countOrd ered By: Nelson Hobson on 06-05-2024 Neutrophils (Bld) [#/Vol] 8.3 10*3/uL High 2.0-7.7 [facility] Albumin to globulin ratioOrd ered By: Nelson Hobson on 06-05-2024 Albumin/Globulin [Mass ratio] 0.9 {ratio} 0.9-2.4 [facility] Basophil percentageOrdered B y: Nelson Hobson on 06-05-2024 Basophils/100 WBC (Bld) 0.6 % 0-1 [facility] Bilirubin, totalOrdered By: Nelson Hobson on 06-05-2024 Bilirubin [Mass/Vol] 0.80 mg/dL 0.20-1.00 [facility] Comment on above: For patients on eltr ombopag therapy, use of Dimension Rayne TBIL is not recommended. Blood urea nitrogen (BUN)/cr eatinine ratioOrdered By: Nelson Hobson on 06-05-2024 Urea nitrogen/Creatinine [Mass ratio] 22.2 mg/mg High 10-20 [facility] CBC W/Diff, Automatedon 05-13 Absolute Lymph 2.73 X10 3/uL Normal 0.83-4.51 [facility] Comment on above: Performed By: #### L 300.3900, L300.4310, L504.2610, L100.0100, L300.8000, L500.4050 ####[facility] [address] [place], [address] Absolute Neut 8.3 X10 3/uL High 2.0-7.7 [facility] Comment on above: Performed By: #### L 300.3900, L300.4310, L504.2610, L100.0100, L300.8000, L500.4050 ####[facility] [address] [place], [address] Basophils/100 WBC (Bld) 0.6 % Normal 0-1 [facility] Comment on above: Performed By: #### L 300.3900, L300.4310, L504.2610, L100.0100, L300.8000, L500.4050 ####[facility] [address] [place], [address] Eosinophils/100 WBC (Bld) 0.9 % Normal 0-5 [facility] Comment on above: Performed By: #### L 300.3900, L300.4310, L504.2610, L100.0100, L300.8000, L500.4050 ####[facility] [address] [place], [address] Erythrocyte distribution width (RBC) [Ratio] 13.2 % Normal 11.6-14.6 [facility] Comment on above: Performed By: #### L 300.3900, L300.4310, L504.2610, L100.0100, L300.8000, L500.4050 ####[facility] [address] [place], [address] Hematocrit (Bld) [Volume fraction] 43.0 % Normal 37-47 [facility] Comment on above: Performed By: #### L 300.3900, L300.4310, L504.2610, L100.0100, L300.8000, L500.4050 ####[facility] [address] [place], [address] Hemoglobin (Bld) [Mass/Vol] 14.6 g/dL Normal 12.0-15.0 [facility] Comment on above: Performed By: #### L 300.3900, L300.4310, L504.2610, L100.0100, L300.8000, L500.4050 ####[facility] [address] [place], [address] IG% 0.600 Normal 0.0-0.9 [facility] Comment on above: Result Comment: IG% - Immature Granulocytes (promyelocytes, myelocytes andmetamyelocytes) > 1% indicates that a LEFT SHIFT is Present. Performed By: #### L 300.3900, L300.4310, L504.2610, L100.0100, L300.8000, L500.4050 ####[facility] [address] [place], [address] Lymphocytes/100 WBC (Bld) 21.8 % Normal 19-41 [facility] Comment on above: Performed By: #### L 300.3900, L300.4310, L504.2610, L100.0100, L300.8000, L500.4050 ####[facility] [address] [place], [address] MCH (RBC) [Entitic mass] 29.6 pg Normal 27.0-32.0 [facility] Comment on above: Performed By: #### L 300.3900, L300.4310, L504.2610, L100.0100, L300.8000, L500.4050 ####[facility] [address] [place], [address] MCHC (RBC) [Mass/Vol] 34.0 g/dL Normal 32-36 [facility] Comment on above: Performed By: #### L 300.3900, L300.4310, L504.2610, L100.0100, L300.8000, L500.4050 ####[facility] [address] [place], [address] MCV (RBC) [Entitic vol] 87.2 fL Normal 81-99 [facility] Comment on above: Performed By: #### L 300.3900, L300.4310, L504.2610, L100.0100, L300.8000, L500.4050 ####[facility] [address] [place], [address] Monocytes/100 WBC (Bld) 9.4 % Normal 0-10 [facility] Comment on above: Performed By: #### L 300.3900, L300.4310, L504.2610, L100.0100, L300.8000, L500.4050 ####[facility] [address] [place], [address] Neutrophils/100 WBC (Bld) 66.7 % Normal 47-70 [facility] Comment on above: Performed By: #### L 300.3900, L300.4310, L504.2610, L100.0100, L300.8000, L500.4050 ####[facility] [address] [place], [address] Nucleated RBC (Bld) [#/Vol] 0 10*3/uL Normal 0-5 [facility] Comment on above: Performed By: #### L 300.3900, L300.4310, L504.2610, L100.0100, L300.8000, L500.4050 ####[facility] [address] [place], [address] Platelet mean volume (Bld) [Entitic vol] 9.3 fL Normal 6.2-12.0 [facility] Comment on above: Performed By: #### L 300.3900, L300.4310, L504.2610, L100.0100, L300.8000, L500.4050 ####[facility] [address] [place], [address] Platelets (Bld) [#/Vol] 303 10*3/uL Normal 150-450 [facility] Comment on above: Performed By: #### L 300.3900, L300.4310, L504.2610, L100.0100, L300.8000, L500.4050 ####[facility] [address] [place], [address] RBC (Bld) [#/Vol] 4.93 10*6/uL Normal 4.2-5.4 [facility] Comment on above: Performed By: #### L 300.3900, L300.4310, L504.2610, L100.0100, L300.8000, L500.4050 ####[facility] [address] [place], [place], [id number] RDW SD 42.1 fl Normal 35.1-43.9 [facility] Comment on above: Performed By: #### L 300.3900, L300.4310, L504.2610, L100.0100, L300.8000, L500.4050 ####[facility] [address] [place], [place], [phone]) WBC (Bld) [#/Vol] 12.5 10*3/uL High 4.4-11.0 [facility] Comment on above: Performed By: #### L 300.3900, L300.4310, L504.2610, L100.0100, L300.8000, L500.4050 ####[facility] [address] [place], [address] Carbon dioxide measurementOr dered By: Nelson Hobson on 06-05-2024 CO2 [Moles/Vol] 24.0 mmol/L 21.0-32.0 [facility] Chloride measurementOrdered By: Nelson Hobson on 06-05-2024 Chloride [Moles/Vol] 108 mmol/L High 98-107 [facility] Comprehensive Metabolic Prof ilon 06-05-2024 Albumin [Mass/Vol] 3.4 g/dL Normal 3.2-5.0 [facility] Comment on above: Order Comment: 1 Performed By: #### L 300.3900, L300.4310, L504.2610, L100.0100, L300.8000, L500.4050 ####[facility] [address] [place], [address] Albumin/Globulin [Mass ratio] 0.9 {ratio} Normal 0.9-2.4 [facility] Comment on above: Order Comment: 1 Performed By: #### L 300.3900, L300.4310, L504.2610, L100.0100, L300.8000, L500.4050 ####[facility] [address] [place], [address] ALK P 80 U/L Normal 45-117 [facility] Comment on above: Order Comment: 1 Performed By: #### L 300.3900, L300.4310, L504.2610, L100.0100, L300.8000, L500.4050 ####[facility] [address] [place], [address] ALT [Catalytic activity/Vol] 19 U/L Normal 13-56 [facility] Comment on above: Order Comment: 1 Performed By: #### L 300.3900, L300.4310, L504.2610, L100.0100, L300.8000, L500.4050 ####[facility] [address] [place], [address] AST [Catalytic activity/Vol] 20 U/L Normal 15-37 [facility] Comment on above: Order Comment: 1 Performed By: #### L 300.3900, L300.4310, L504.2610, L100.0100, L300.8000, L500.4050 ####[facility] [address] [place], [address] Bilirubin [Mass/Vol] 0.80 mg/dL Normal 0.20-1.00 [facility] Comment on above: Order Comment: 1 Result Comment: For patients on eltrombopag therapy, use of Dimension Rayne TBIL is not recommended. Performed By: #### L 300.3900, L300.4310, L504.2610, L100.0100, L300.8000, L500.4050 ####[facility] [address] [place], [address] BUN/CRE 22.2 RATIO High 10-20 [facility] Comment on above: Order Comment: 1 Performed By: #### L 300.3900, L300.4310, L504.2610, L100.0100, L300.8000, L500.4050 ####[facility] [address] [place], [address] CA,Total 9.4 mg/dL Normal 8.5-10.1 [facility] Comment on above: Order Comment: 1 Performed By: #### L 300.3900, L300.4310, L504.2610, L100.0100, L300.8000, L500.4050 ####[facility] [address] [place], [address] Chloride [Moles/Vol] 108 mmol/L High 98-107 [facility] Comment on above: Order Comment: 1 Performed By: #### L 300.3900, L300.4310, L504.2610, L100.0100, L300.8000, L500.4050 ####[facility] [address] [place], [address] CO2 [Moles/Vol] 24.0 mmol/L Normal 21.0-32.0 [facility] Comment on above: Order Comment: 1 Performed By: #### L 300.3900, L300.4310, L504.2610, L100.0100, L300.8000, L500.4050 ####[facility] [address] [place], [address] Creatinine [Mass/Vol] 0.86 mg/dL Normal 0.55-1.02 [facility] Comment on above: Order Comment: 1 Result Comment: The validity of the calculated GFR GFRAA in patients over70 years has not been determined. Clinical correlation isessential. Performed By: #### L 300.3900, L300.4310, L504.2610, L100.0100, L300.8000, L500.4050 ####[facility] [address] [place], [address] EST GFR - AA 83 mL/min Normal >60 [facility] Comment on above: Order Comment: 1 Result Comment: Afri can Mauritanian GFR Calc Performed By: #### L 300.3900, L300.4310, L504.2610, L100.0100, L300.8000, L500.4050 ####[facility] [address] [place], [address] GAP 9 Normal 5-15 [facility] Comment on above: Order Comment: 1 Performed By: #### L 300.3900, L300.4310, L504.2610, L100.0100, L300.8000, L500.4050 ####[facility] [address] [place], [address] GFR/1.73 sq M.predicted among non-blacks MDRD (S/P/Bld) [Vol rate/Area] 69 mL/min/{1.73_m2} Normal >60 [facility] Comment on above: Order Comment: 1 Result Comment: Non- GFR Calc Performed By: #### L 300.3900, L300.4310, L504.2610, L100.0100, L300.8000, L500.4050 ####[facility] [address] [place], [address] Globulin (S) [Mass/Vol] 3.8 g/dL Normal 2.2-4.2 [facility] Comment on above: Order Comment: 1 Performed By: #### L 300.3900, L300.4310, L504.2610, L100.0100, L300.8000, L500.4050 ####[facility] [address] [place], [address] Glucose [Mass/Vol] 115 mg/dL High 74-106 [facility] Comment on above: Order Comment: 1 Result Comment: Fast ing Glucose result from 100 to 125 mg/dLsuggests IMPAIRED HOMEOSTASIS per A.D.A. criteria. Performed By: #### L 300.3900, L300.4310, L504.2610, L100.0100, L300.8000, L500.4050 ####[facility] [address] [place], [address] Potassium [Moles/Vol] 2.8 mmol/L Low 3.5-5.1 [facility] Comment on above: Order Comment: 1 Performed By: #### L 300.3900, L300.4310, L504.2610, L100.0100, L300.8000, L500.4050 ####[facility] [address] [place], [address] Sodium [Moles/Vol] 141 mmol/L Normal 136-145 [facility] Comment on above: Order Comment: 1 Performed By: #### L 300.3900, L300.4310, L504.2610, L100.0100, L300.8000, L500.4050 ####[facility] [address] [place], [address] T PROT 7.2 g/dL Normal 6.4-8.2 [facility] Comment on above: Order Comment: 1 Performed By: #### L 300.3900, L300.4310, L504.2610, L100.0100, L300.8000, L500.4050 ####[facility] [address] [place], [address] Urea nitrogen [Mass/Vol] 19 mg/dL High 7-18 [facility] Comment on above: Order Comment: 1 Performed By: #### L 300.3900, L300.4310, L504.2610, L100.0100, L300.8000, L500.4050 ####[facility] [address] [place], [place], [address] D-Dimer Quantitative (DVT/PE )on 06-05-2024 D-DIMER QUANT 0.35 FEU/ug/m Normal 0.27-0.49 [facility] Comment on above: Result Comment: NORM AL D-Dimer level (<0.50) indicates no DVT or PE. Performed By: #### L 300.3900, L300.4310, L504.2610, L100.0100, L300.8000, L500.4050 ####[facility] [address] [place], [place], [id number] D-dimer measurement for deep venous thrombosisOrdered By: Nelson Hobson on 06-05-2024 D-Dimer Quantitative (PE/DVT) 0.35 FEU/ug/m 0.27-0.49 [facility] Comment on above: NORMAL D-Dimer level (<0.50) indicates no DVT or PE. Eosinophil percentageOrdered By: Nelson Hobson on 06-05-2024 Eosinophils/100 WBC (Bld) 0.9 % 0-5 [facility] Erythrocyte distribution wid th ratioOrdered By: Neslon Hobson on 06-05-2024 Erythrocyte distribution width (RBC) [Ratio] 13.2 % 11.6-14.6 [facility] Erythrocyte distribution wid th standard deviationOrdered By: Nelson [facility] on 06-05-2024 Erythrocyte distribution width (RBC) [Entitic vol] 42.1 fL 35.1-43.9 [facility] Estimated glomerular filtrat ion rate (GFR) AmericanOrdered By: Nelson Hobson on 06-05-2024 Estimated GFR (MDRD) Amer 83 mL/min >60 [facility] Comment on above: GFR Calc Glomerular filtration rate ( GFR) estimationOrdered By: Nelson Hobson on 06-05-2024 Estimated GFR (MDRD) Non-Af Amer 69 mL/min >60 [facility] Comment on above: Non- GFR Calc Glucose measurementOrdered B y: Nelson Hobson on 06-05-2024 Glucose [Mass/Vol] 115 mg/dL High 74-106 [facility] Comment on above: Fasting Glucose resu lt from 100 to 125 mg/dL suggests IMPAIRED HOMEOSTASIS per A.D.A. criteria. Hematocrit Auto (Bld) [Volum e fraction]Ordered By: Nelson Hobson on 06-05-2024 Hematocrit (Bld) [Volume fraction] 43.0 % 37-47 [facility] Hemoglobin measurementOrdere d By: Nelson Hobson on 06-05-2024 Hemoglobin (Bld) [Mass/Vol] 14.6 g/dL 12.0-15.0 [facility] Immature granulocytes/100 WB C Auto (Bld)Ordered By: Nelson Hobson on 06-05-2024 Immature granulocytes/100 WBC (Bld) 0.600 % 0.0-0.9 [facility] Comment on above: IG% - Immature Granu locytes (promyelocytes, myelocytes and metamyelocytes) > 1% indicates that a LEFT SHIFT is Present. International normalized rat io (INR) calculationOrdered By: Nelson Hobson on 06-05-2024 INR Coag (Bld) [Relative time] 1.5 {INR} [facility] LDHon 06-05-2024 LDH 209 U/L Normal 84-246 [facility] Comment on above: Order Comment: 1 Performed By: #### L 300.3900, L300.4310, L504.2610, L100.0100, L300.8000, L500.4050 ####[facility] [address] [place], [place], [id number] Laboratory - Chemistry and C hemistry - challengeOrdered By: Nelson Hobson on 06-05-2024 AST [Catalytic activity/Vol] 20 U/L 15-37 [facility] Lactate dehydrogenase (LDH) measurementOrdered By: Nelson Hobson on 06-05-2024 LDH [Catalytic activity/Vol] 209 U/L 84-246 [facility] Lymphocytes Auto (Unsp spec) [#/Vol]Ordered By: Nelson Hobson on 06-05-2024 Lymphocytes (Bld) [#/Vol] 2.73 10*3/uL 0.83-4.51 [facility] Lymphocytes/100 WBC Auto (Un sp spec)Ordered By: Nelson Hobson on 06-05-2024 Lymphocytes/100 WBC (Bld) 21.8 % 19-41 [facility] MCV (mean corpuscular volume ) determinationOrdered By: Nelson Hobson on 06-05-2024 MCV (RBC) [Entitic vol] 87.2 fL 81-99 [facility] Mean corpuscular hemoglobin (MCH) determinationOrdered By: Nelson Hobson on 06-05-2024 MCH (RBC) [Entitic mass] 29.6 pg 27.0-32.0 [facility] Mean corpuscular hemoglobin concentration (MCHC) determinationOrdered By: Nelson Hobson on 06-05-2024 MCHC (RBC) [Mass/Vol] 34.0 g/dL 32-36 [facility] Mean platelet volume determi nationOrdered By: Nelson Hobson on 06-05-2024 Platelet mean volume (Bld) [Entitic vol] 9.3 fL 6.2-12.0 [facility] Monocyte percentageOrdered B y: Nelson Hobson on 06-05-2024 Monocytes/100 WBC (Bld) 9.4 % 0-10 [facility] Neutrophil percentageOrdered By: Nelson Hobson on 06-05-2024 Neutrophils/100 WBC (Bld) 66.7 % 47-70 [facility] Nucleated red blood cell per centageOrdered By: Nelson Hobson on 06-05-2024 Nucleated RBC/100 WBC (Bld) [Ratio] 0 % 0-5 [facility] Oncology Visit Reporton 05-13 Oncology Visit Report Normal [facility] Partial Thromboplast Timeon 06-05-2024 aPTT Coag (Bld) [Time] 28.7 s Normal 24.1-36.2 [facility] Comment on above: Performed By: #### L 300.3900, L300.4310, L504.2610, L100.0100, L300.8000, L500.4050 ####[facility] [address] [place], [address] Platelet countOrdered By: Niya Hobson on 06-05-2024 Platelets (Bld) [#/Vol] 303 10*3/uL 150-450 [facility] Potassium measurementOrdered By: Nelson Hobson on 06-05-2024 Potassium [Moles/Vol] 2.8 mmol/L Low 3.5-5.1 [facility] Prothrombin Time w/INRon INR Coag (PPP) [Relative time] 1.5 {INR} Normal [facility] Comment on above: Performed By: #### L 300.3900, L300.4310, L504.2610, L100.0100, L300.8000, L500.4050 ####[facility] [address] [place], [place], [id number] PT Coag (PPP) [Time] 17.8 s High 11.7-14.9 [facility] Comment on above: Performed By: #### L 300.3900, L300.4310, L504.2610, L100.0100, L300.8000, L500.4050 ####[facility] [address] [place], [place], [id number] Prothrombin timeOrdered By: Nelson Hobson on 06-05-2024 PT Coag (PPP) [Time] 17.8 s High 11.7-14.9 [facility] RBC Auto (Bld) [#/Vol]Ordere d By: Nelson Hobson on 06-05-2024 RBC (Bld) [#/Vol] 4.93 10*6/uL 4.2-5.4 [facility] Serum anion gap measurementO rdered By: Nelson Hobson on 06-05-2024 Anion gap [Moles/Vol] 9 mmol/L 5-15 [facility] Serum globulin measurementOr dered By: Nelson Hobson on 06-05-2024 Globulin (S) [Mass/Vol] 3.8 g/dL 2.2-4.2 [facility] Serum or plasma alanine cooper otransferase (ALT) measurementOrdered By: Nelson Hobson on 06-05-2024 ALT [Catalytic activity/Vol] 19 U/L 13-56 [facility] Serum or plasma albumin raine urement (mass/volume)Ordered By: Nelson Hobson on 06-05-2024 Albumin [Mass/Vol] 3.4 g/dL 3.2-5.0 [facility] Serum or plasma alkaline haven sphatase measurementOrdered By: Nelson Hobson on 06-05-2024 ALP [Catalytic activity/Vol] 80 U/L 45-117 [facility] Serum or plasma calcium raine urement (mass/volume)Ordered By: Nelson Hobson on 06-05-2024 Calcium [Mass/Vol] 9.4 mg/dL 8.5-10.1 [facility] Serum or plasma creatinine m easurement (mass/volume)Ordered By: Nelson Hobson on 06-05-2024 Creatinine [Mass/Vol] 0.86 mg/dL 0.55-1.02 [facility] Comment on above: The validity of the calculated GFR & GFRAA in patients over 70 years has not been determined. Clinical correlation is essential. Serum or plasma urea nitroge n measurement (mass/volume)Ordered By: Nelson Hobson on 06-05-2024 Urea nitrogen [Mass/Vol] 19 mg/dL High 7-18 [facility] Sodium levelOrdered By: Veun Hobson on 06-05-2024 Sodium [Moles/Vol] 141 mmol/L 136-145 [facility] Total proteinOrdered By: Dickson Hobson on 06-05-2024 Protein [Mass/Vol] 7.2 g/dL 6.4-8.2 [facility] White blood cell (WBC) count Ordered By: Nelson Hobson on 06-05-2024 WBC (Bld) [#/Vol] 12.5 10*3/uL High 4.4-11.0 [facility] aPTT Coag (PPP) [Time]Ordere d By: Nelson Hobson on 06-05-2024 aPTT Coag (Bld) [Time] 28.7 s 24.1-36.2 [facility] Brain/Head without Contrasto n 06-04-2024 Brain/Head without Contrast Normal [facility] Emergency Department Summary on 06-04-2024 Emergency Department Summary Normal [facility] Spine Cervical without Contr ason 06-04-2024 Spine Cervical without Contras Normal [facility] Urine Cultureon 05-18-2024 URC Normal [facility] Comment on above: Performed By: #### M 100.2200 ####[facility] [address] [place], [address] Venous Duplex US - Eben Extre mon 05-12-2024 Venous Duplex US - Eben Extrem Normal [facility] CTA Chest W/WO Contraston CTA Chest W/WO Contrast Normal [facility] CBC W/Diff, Automatedon 04-12 Absolute Lymph 2.85 X10 3/uL Normal 0.83-4.51 [facility] Comment on above: Performed By: #### L 504.2610, L500.4050, L100.0100, L300.8000, L300.3900, L300.4310 ####[facility] [address] [place], [address] Absolute Neut 6.9 X10 3/uL Normal 2.0-7.7 [facility] Comment on above: Performed By: #### L 504.2610, L500.4050, L100.0100, L300.8000, L300.3900, L300.4310 ####[facility] [address] [place], [address] Basophils/100 WBC (Bld) 0.5 % Normal 0-1 [facility] Comment on above: Performed By: #### L 504.2610, L500.4050, L100.0100, L300.8000, L300.3900, L300.4310 ####[facility] [address] [place], [address] Eosinophils/100 WBC (Bld) 0.8 % Normal 0-5 [facility] Comment on above: Performed By: #### L 504.2610, L500.4050, L100.0100, L300.8000, L300.3900, L300.4310 ####[facility] [address] [place], [address] Erythrocyte distribution width (RBC) [Ratio] 13.2 % Normal 11.6-14.6 [facility] Comment on above: Performed By: #### L 504.2610, L500.4050, L100.0100, L300.8000, L300.3900, L300.4310 ####[facility] [address] [place], [address] Hematocrit (Bld) [Volume fraction] 43.8 % Normal 37-47 [facility] Comment on above: Performed By: #### L 504.2610, L500.4050, L100.0100, L300.8000, L300.3900, L300.4310 ####[facility] [address] [place], [address] Hemoglobin (Bld) [Mass/Vol] 14.7 g/dL Normal 12.0-15.0 [facility] Comment on above: Performed By: #### L 504.2610, L500.4050, L100.0100, L300.8000, L300.3900, L300.4310 ####[facility] [address] [place], [address] IG% 0.800 Normal 0.0-0.9 [facility] Comment on above: Result Comment: IG% - Immature Granulocytes (promyelocytes, myelocytes andmetamyelocytes) > 1% indicates that a LEFT SHIFT is Present. Performed By: #### L 504.2610, L500.4050, L100.0100, L300.8000, L300.3900, L300.4310 ####[facility] [address] [place], [address] Lymphocytes/100 WBC (Bld) 26.0 % Normal 19-41 [facility] Comment on above: Performed By: #### L 504.2610, L500.4050, L100.0100, L300.8000, L300.3900, L300.4310 ####[facility] [address] [place], [address] MCH (RBC) [Entitic mass] 30.5 pg Normal 27.0-32.0 [facility] Comment on above: Performed By: #### L 504.2610, L500.4050, L100.0100, L300.8000, L300.3900, L300.4310 ####[facility] [address] [place], [address] MCHC (RBC) [Mass/Vol] 33.6 g/dL Normal 32-36 [facility] Comment on above: Performed By: #### L 504.2610, L500.4050, L100.0100, L300.8000, L300.3900, L300.4310 ####[facility] [address] [place], [address] MCV (RBC) [Entitic vol] 90.9 fL Normal 81-99 [facility] Comment on above: Performed By: #### L 504.2610, L500.4050, L100.0100, L300.8000, L300.3900, L300.4310 ####[facility] [address] [place], [address] Monocytes/100 WBC (Bld) 8.9 % Normal 0-10 [facility] Comment on above: Performed By: #### L 504.2610, L500.4050, L100.0100, L300.8000, L300.3900, L300.4310 ####[facility] [address] [place], [address] Neutrophils/100 WBC (Bld) 63.0 % Normal 47-70 [facility] Comment on above: Performed By: #### L 504.2610, L500.4050, L100.0100, L300.8000, L300.3900, L300.4310 ####[facility] [address] [place], [address] Nucleated RBC (Bld) [#/Vol] 0 10*3/uL Normal 0-5 [facility] Comment on above: Performed By: #### L 504.2610, L500.4050, L100.0100, L300.8000, L300.3900, L300.4310 ####[facility] [address] [place], [address] Platelet mean volume (Bld) [Entitic vol] 9.3 fL Normal 6.2-12.0 [facility] Comment on above: Performed By: #### L 504.2610, L500.4050, L100.0100, L300.8000, L300.3900, L300.4310 ####[facility] [address] [place], [address] Platelets (Bld) [#/Vol] 294 10*3/uL Normal 150-450 [facility] Comment on above: Performed By: #### L 504.2610, L500.4050, L100.0100, L300.8000, L300.3900, L300.4310 ####[facility] [address] [place], [address] RBC (Bld) [#/Vol] 4.82 10*6/uL Normal 4.2-5.4 [facility] Comment on above: Performed By: #### L 504.2610, L500.4050, L100.0100, L300.8000, L300.3900, L300.4310 ####[facility] [address] [place], [address] RDW SD 44.8 fl High 35.1-43.9 [facility] Comment on above: Performed By: #### L 504.2610, L500.4050, L100.0100, L300.8000, L300.3900, L300.4310 ####[facility] [address] [place], [address] WBC (Bld) [#/Vol] 11.0 10*3/uL Normal 4.4-11.0 [facility] Comment on above: Performed By: #### L 504.2610, L500.4050, L100.0100, L300.8000, L300.3900, L300.4310 ####[facility] [address] [place], [address] Comprehensive Metabolic Prof ilon 05-08-2024 Albumin [Mass/Vol] 3.4 g/dL Normal 3.2-5.0 [facility] Comment on above: Order Comment: 1 Performed By: #### L 504.2610, L500.4050, L100.0100, L300.8000, L300.3900, L300.4310 ####[facility] [address] [place], [address] Albumin/Globulin [Mass ratio] 1.0 {ratio} Normal 0.9-2.4 [facility] Comment on above: Order Comment: 1 Performed By: #### L 504.2610, L500.4050, L100.0100, L300.8000, L300.3900, L300.4310 ####[facility] [address] [place], [address] ALK P 81 U/L Normal 45-117 [facility] Comment on above: Order Comment: 1 Performed By: #### L 504.2610, L500.4050, L100.0100, L300.8000, L300.3900, L300.4310 ####[facility] [address] [place], [address] ALT [Catalytic activity/Vol] 18 U/L Normal 13-56 [facility] Comment on above: Order Comment: 1 Performed By: #### L 504.2610, L500.4050, L100.0100, L300.8000, L300.3900, L300.4310 ####[facility] [address] [place], [address] AST [Catalytic activity/Vol] 18 U/L Normal 15-37 [facility] Comment on above: Order Comment: 1 Performed By: #### L 504.2610, L500.4050, L100.0100, L300.8000, L300.3900, L300.4310 ####[facility] [address] [place], [address] Bilirubin [Mass/Vol] 0.60 mg/dL Normal 0.20-1.00 [facility] Comment on above: Order Comment: 1 Result Comment: For patients on eltrombopag therapy, use of Dimension Rayne TBIL is not recommended. Performed By: #### L 504.2610, L500.4050, L100.0100, L300.8000, L300.3900, L300.4310 ####[facility] [address] [place], [address] BUN/CRE 16.5 RATIO Normal 10-20 [facility] Comment on above: Order Comment: 1 Performed By: #### L 504.2610, L500.4050, L100.0100, L300.8000, L300.3900, L300.4310 ####[facility] [address] [place], [address] CA,Total 9.2 mg/dL Normal 8.5-10.1 [facility] Comment on above: Order Comment: 1 Performed By: #### L 504.2610, L500.4050, L100.0100, L300.8000, L300.3900, L300.4310 ####[facility] [address] [place], [address] Chloride [Moles/Vol] 110 mmol/L High 98-107 [facility] Comment on above: Order Comment: 1 Performed By: #### L 504.2610, L500.4050, L100.0100, L300.8000, L300.3900, L300.4310 ####[facility] [address] [place], [address] CO2 [Moles/Vol] 25.0 mmol/L Normal 21.0-32.0 [facility] Comment on above: Order Comment: 1 Performed By: #### L 504.2610, L500.4050, L100.0100, L300.8000, L300.3900, L300.4310 ####[facility] [address] [place], [address] Creatinine [Mass/Vol] 0.97 mg/dL Normal 0.55-1.02 [facility] Comment on above: Order Comment: 1 Result Comment: The validity of the calculated GFR GFRAA in patients over70 years has not been determined. Clinical correlation isessential. Performed By: #### L 504.2610, L500.4050, L100.0100, L300.8000, L300.3900, L300.4310 ####[facility] [address] [place], [address] EST GFR - AA 72 mL/min Normal >60 [facility] Comment on above: Order Comment: 1 Result Comment: Afri can Mauritan[place] GFR Calc Performed By: #### L 504.2610, L500.4050, L100.0100, L300.8000, L300.3900, L300.4310 ####[facility] [address] [place], [address] GAP 5 Normal 5-15 [facility] Comment on above: Order Comment: 1 Performed By: #### L 504.2610, L500.4050, L100.0100, L300.8000, L300.3900, L300.4310 ####[facility] [address] [place], [address] GFR/1.73 sq M.predicted among non-blacks MDRD (S/P/Bld) [Vol rate/Area] 59 mL/min/{1.73_m2} Low >60 [facility] Comment on above: Order Comment: 1 Result Comment: Non- GFR Calc Performed By: #### L 504.2610, L500.4050, L100.0100, L300.8000, L300.3900, L300.4310 ####[facility] [address] [place], [address] Globulin (S) [Mass/Vol] 3.4 g/dL Normal 2.2-4.2 [facility] Comment on above: Order Comment: 1 Performed By: #### L 504.2610, L500.4050, L100.0100, L300.8000, L300.3900, L300.4310 ####[facility] [address] [place], [address] Glucose [Mass/Vol] 112 mg/dL High 74-106 [facility] Comment on above: Order Comment: 1 Result Comment: Fast ing Glucose result from 100 to 125 mg/dLsuggests IMPAIRED HOMEOSTASIS per A.D.A. criteria. Performed By: #### L 504.2610, L500.4050, L100.0100, L300.8000, L300.3900, L300.4310 ####[facility] [address] [place], [address] Potassium [Moles/Vol] 3.6 mmol/L Normal 3.5-5.1 [facility] Comment on above: Order Comment: 1 Performed By: #### L 504.2610, L500.4050, L100.0100, L300.8000, L300.3900, L300.4310 ####[facility] [address] [place], [address] Sodium [Moles/Vol] 140 mmol/L Normal 136-145 [facility] Comment on above: Order Comment: 1 Performed By: #### L 504.2610, L500.4050, L100.0100, L300.8000, L300.3900, L300.4310 ####[facility] [address] [place], [address] T PROT 6.8 g/dL Normal 6.4-8.2 [facility] Comment on above: Order Comment: 1 Performed By: #### L 504.2610, L500.4050, L100.0100, L300.8000, L300.3900, L300.4310 ####[facility] [address] [place], [address] Urea nitrogen [Mass/Vol] 16 mg/dL Normal 7-18 [facility] Comment on above: Order Comment: 1 Performed By: #### L 504.2610, L500.4050, L100.0100, L300.8000, L300.3900, L300.4310 ####[facility] [address] [place], [address] D-Dimer Quantitative (DVT/PE )on 05-08-2024 D-DIMER QUANT 0.31 FEU/ug/m Normal 0.27-0.49 [facility] Comment on above: Result Comment: NORM AL D-Dimer level (<0.50) indicates no DVT or PE. Performed By: #### L 504.2610, L500.4050, L100.0100, L300.8000, L300.3900, L300.4310 ####[facility] [address] [place], [address] LDHon 05-08-2024 LDH 233 U/L Normal 84-246 [facility] Comment on above: Order Comment: 1 Performed By: #### L 504.2610, L500.4050, L100.0100, L300.8000, L300.3900, L300.4310 ####[facility] [address] [place], [place], [address] Oncology Visit Reporton 04-12 Oncology Visit Report Normal [facility] Partial Thromboplast Timeon 05-08-2024 aPTT Coag (Bld) [Time] 28.2 s Normal 24.1-36.2 [facility] Comment on above: Performed By: #### L 504.2610, L500.4050, L100.0100, L300.8000, L300.3900, L300.4310 ####[facility] [address] [place], [address] Prothrombin Time w/INRon INR Coag (PPP) [Relative time] 1.5 {INR} Normal [facility] Comment on above: Performed By: #### L 504.2610, L500.4050, L100.0100, L300.8000, L300.3900, L300.4310 ####[facility] [address] [place], [address] PT Coag (PPP) [Time] 17.8 s High 11.7-14.9 [facility] Comment on above: Performed By: #### L 504.2610, L500.4050, L100.0100, L300.8000, L300.3900, L300.4310 ####[facility] [address] [place], [place], [address] MR/BMS.BVSon 03-31-2024 MR/BMS.BVS Normal [facility] Basic Metabolic Profile (BMP )on 03-17-2024 BUN Normal - [facility] Comment on above: Result Comment: Canc elled via OM: Order cancelled - Patient discharged Performed By: #### L 100.0100, L500.2500 ####[facility] [address] [place], [place], [id number] BUN/CRE Normal 04-30 [facility] Comment on above: Result Comment: Canc elled via OM: Order cancelled - Patient discharged Performed By: #### L 100.0100, L500.2500 ####[facility] [address] [place], [address] CA,Total Normal 8.5-10.1 [facility] Comment on above: Result Comment: Canc elled via OM: Order cancelled - Patient discharged Performed By: #### L 100.0100, L500.2500 ####[facility] [address] [place], [address] CL Normal 98-107 [facility] Comment on above: Result Comment: Canc elled via OM: Order cancelled - Patient discharged Performed By: #### L 100.0100, L500.2500 ####[facility] [address] [place], [address] CO2 Normal 21.0-32.0 [facility] Comment on above: Result Comment: Canc elled via OM: Order cancelled - Patient discharged Performed By: #### L 100.0100, L500.2500 ####[facility] [address] [place], [address] CREAT,SERUM Normal 0.55-1.02 [facility] Comment on above: Result Comment: Canc elled via OM: Order cancelled - Patient discharged Performed By: #### L 100.0100, L500.2500 ####[facility] [address] [place], [address] EST GFR Normal >60 [facility] Comment on above: Result Comment: Canc elled via OM: Order cancelled - Patient discharged Performed By: #### L 100.0100, L500.2500 ####[facility] [address] [place], [address] EST GFR - AA Normal >60 [facility] Comment on above: Result Comment: Canc elled via OM: Order cancelled - Patient discharged Performed By: #### L 100.0100, L500.2500 ####[facility] [address] [place], [address] GAP Normal 5-15 [facility] Comment on above: Result Comment: Canc elled via OM: Order cancelled - Patient discharged Performed By: #### L 100.0100, L500.2500 ####[facility] [address] [place], [address] GLU Normal 74-106 [facility] Comment on above: Result Comment: Canc elled via OM: Order cancelled - Patient discharged Performed By: #### L 100.0100, L500.2500 ####[facility] [address] [place], [address] Potassium Normal 3.5-5.1 [facility] Comment on above: Result Comment: Canc elled via OM: Order cancelled - Patient discharged Performed By: #### L 100.0100, L500.2500 ####[facility] [address] [place], [address] Basic Metabolic Profile (BMP) Normal 136-145 [facility] Comment on above: Result Comment: Canc elled via OM: Order cancelled - Patient discharged Performed By: #### L 100.0100, L500.2500 ####[facility] [address] [place], [address] CBC W/Diff, Automatedon 09-0 -2023 Absolute Neut Normal 2.0-7.7 [facility] Comment on above: Result Comment: Canc elled via OM: Order cancelled - Patient discharged Performed By: #### L 100.0100, L500.2500 ####[facility] [address] [place], [address] HCT Normal 37-47 [facility] Comment on above: Result Comment: Canc elled via OM: Order cancelled - Patient discharged Performed By: #### L 100.0100, L500.2500 ####[facility] [address] [place], [address] HGB Normal 12.0-15.0 [facility] Comment on above: Result Comment: Canc elled via OM: Order cancelled - Patient discharged Performed By: #### L 100.0100, L500.2500 ####[facility] [address] [place], [address] MCH Normal 27.0-32.0 [facility] Comment on above: Result Comment: Canc elled via OM: Order cancelled - Patient discharged Performed By: #### L 100.0100, L500.2500 ####[facility] [address] [place], [address] MCHC Normal 32-36 [facility] Comment on above: Result Comment: Canc elled via OM: Order cancelled - Patient discharged Performed By: #### L 100.0100, L500.2500 ####[facility] [address] [place], [address] MCV Normal 81-99 [facility] Comment on above: Result Comment: Canc elled via OM: Order cancelled - Patient discharged Performed By: #### L 100.0100, L500.2500 ####[facility] [address] [place], [address] NEUT% Normal 47-70 [facility] Comment on above: Result Comment: Canc elled via OM: Order cancelled - Patient discharged Performed By: #### L 100.0100, L500.2500 ####[facility] [address] [place], [address] PLT Normal 150-450 [facility] Comment on above: Result Comment: Canc elled via OM: Order cancelled - Patient discharged Performed By: #### L 100.0100, L500.2500 ####[facility] [address] [place], [address] RBC Normal 4.2-5.4 [facility] Comment on above: Result Comment: Canc elled via OM: Order cancelled - Patient discharged Performed By: #### L 100.0100, L500.2500 ####[facility] [address] [place], [address] RDW CV Normal 11.6-14.6 [facility] Comment on above: Result Comment: Canc elled via OM: Order cancelled - Patient discharged Performed By: #### L 100.0100, L500.2500 ####[facility] [address] [place], [address] RDW SD Normal 35.1-43.9 [facility] Comment on above: Result Comment: Canc elled via OM: Order cancelled - Patient discharged Performed By: #### L 100.0100, L500.2500 ####[facility] [address] [place], [address] WBC Normal 4.4-11.0 [facility] Comment on above: Result Comment: Canc elled via OM: Order cancelled - Patient discharged Performed By: #### L 100.0100, L500.2500 ####[facility] [address] [place], [address] Basic Metabolic Profile (BMP )on 03-16-2024 BUN/CRE 23.1 RATIO High 10-20 [facility] Comment on above: Performed By: #### L 100.0100, L500.2500 ####[facility] [address] [place], [address] CA,Total 9.0 mg/dL Normal 8.5-10.1 [facility] Comment on above: Performed By: #### L 100.0100, L500.2500 ####[facility] [address] [place], [address] Chloride [Moles/Vol] 108 mmol/L High 98-107 [facility] Comment on above: Performed By: #### L 100.0100, L500.2500 ####[facility] [address] [place], [address] CO2 [Moles/Vol] 28.0 mmol/L Normal 21.0-32.0 [facility] Comment on above: Performed By: #### L 100.0100, L500.2500 ####[facility] [address] [place], [address] Creatinine [Mass/Vol] 0.78 mg/dL Normal 0.55-1.02 [facility] Comment on above: Result Comment: The validity of the calculated GFR GFRAA in patients over70 years has not been determined. Clinical correlation isessential. Performed By: #### L 100.0100, L500.2500 ####[facility] [address] [place], [address] ECRCL 67.14 ml/min Normal [facility] Comment on above: Performed By: #### L 100.0100, L500.2500 ####[facility] [address] [place], [address] EST GFR - AA 92 mL/min Normal >60 [facility] Comment on above: Result Comment: Afri can Mauritanian GFR Calc Performed By: #### L 100.0100, L500.2500 ####[facility] [address] [place], [address] GAP 4 Low 5-15 [facility] Comment on above: Performed By: #### L 100.0100, L500.2500 ####[facility] [address] [place], [address] GFR/1.73 sq M.predicted among non-blacks MDRD (S/P/Bld) [Vol rate/Area] 76 mL/min/{1.73_m2} Normal >60 [facility] Comment on above: Result Comment: Non- GFR Calc Performed By: #### L 100.0100, L500.2500 ####[facility] [address] [place], [address] Glucose [Mass/Vol] 151 mg/dL High 74-106 [facility] Comment on above: Result Comment: Fast ing Glucose result greater than or equal to 126 mg/dLsuggests DIABETES MELLITUS per A.D.A. criteria. Performed By: #### L 100.0100, L500.2500 ####[facility] [address] [place], [address] Potassium [Moles/Vol] 4.2 mmol/L Normal 3.5-5.1 [facility] Comment on above: Performed By: #### L 100.0100, L500.2500 ####[facility] [address] [place], [address] Sodium [Moles/Vol] 140 mmol/L Normal 136-145 [facility] Comment on above: Performed By: #### L 100.0100, L500.2500 ####[facility] [address] [place], [address] Urea nitrogen [Mass/Vol] 18 mg/dL Normal 7-18 [facility] Comment on above: Performed By: #### L 100.0100, L500.2500 ####[facility] [address] [place], [address] CBC W/Diff, Automatedon 09-0 PATH REV Reviewed [facility] Comment on above: Result Comment: Neut rophilic left shift.Clinical correlation necessary.Beto Green M.D. 03/16/24 AMENDED REPORT 03/16/24 1016 PATH REV previously reported as: Cici saldana Performed By: #### L 100.0100, L500.2500 ####[facility] [address] [place], [address] PATH REV Reviewed Normal [facility] Comment on above: Result Comment: Neut rophilic left shift.Clinical correlation necessary.Beto Green M.D. 03/16/24 AMENDED REPORT 03/16/24 0852 PATH REV previously reported as: Cici saldana Performed By: #### L 500.2500, L100.0100 ####[facility] [address] [place], [address] Discharge Instructionon Discharge Instruction Normal [facility] Partial Thromboplast Timeon 03-16-2024 aPTT Coag (Bld) [Time] 59.2 s High 24.1-36.2 [facility] Comment on above: Performed By: #### L 300.4310 ####[facility] [address] [place], [address] aPTT Coag (Bld) [Time] 49.2 s High 24.1-36.2 [facility] Comment on above: Performed By: #### L 300.4310 ####[facility] [address] [place], [address] Basic Metabolic Profile (BMP )on 03-15-2024 BUN/CRE 28.8 RATIO High 10-20 [facility] Comment on above: Performed By: #### L 500.2500, L100.0100 ####[facility] [address] [place], [address] CA,Total 9.3 mg/dL Normal 8.5-10.1 [facility] Comment on above: Performed By: #### L 500.2500, L100.0100 ####[facility] [address] [place], [address] Chloride [Moles/Vol] 108 mmol/L High 98-107 [facility] Comment on above: Performed By: #### L 500.2500, L100.0100 ####[facility] [address] [place], [address] CO2 [Moles/Vol] 27.0 mmol/L Normal 21.0-32.0 [facility] Comment on above: Performed By: #### L 500.2500, L100.0100 ####[facility] [address] [place], [address] Creatinine [Mass/Vol] 0.80 mg/dL Normal 0.55-1.02 [facility] Comment on above: Result Comment: The validity of the calculated GFR GFRAA in patients over70 years has not been determined. Clinical correlation isessential. Performed By: #### L 500.2500, L100.0100 ####[facility] [address] [place], [address] ECRCL 67.41 ml/min Normal [facility] Comment on above: Performed By: #### L 500.2500, L100.0100 ####[facility] [address] [place], [address] EST GFR - AA 90 mL/min Normal >60 [facility] Comment on above: Result Comment: Afri can [place]ian GFR Calc Performed By: #### L 500.2500, L100.0100 ####[facility] [address] [place], [address] GAP 4 Low 5-15 [facility] Comment on above: Performed By: #### L 500.2500, L100.0100 ####[facility] [address] [place], [address] GFR/1.73 sq M.predicted among non-blacks MDRD (S/P/Bld) [Vol rate/Area] 74 mL/min/{1.73_m2} Normal >60 [facility] Comment on above: Result Comment: Non- GFR Calc Performed By: #### L 500.2500, L100.0100 ####[facility] [address] [place], [address] Glucose [Mass/Vol] 116 mg/dL High 74-106 [facility] Comment on above: Result Comment: Fast ing Glucose result from 100 to 125 mg/dLsuggests IMPAIRED HOMEOSTASIS per A.D.A. criteria. Performed By: #### L 500.2500, L100.0100 ####[facility] [address] [place], [address] Potassium [Moles/Vol] 4.5 mmol/L Normal 3.5-5.1 [facility] Comment on above: Result Comment: Mode rate Hemolysis, Result may be falsely increased. Performed By: #### L 500.2500, L100.0100 ####[facility] [address] [place], [address] Sodium [Moles/Vol] 139 mmol/L Normal 136-145 [facility] Comment on above: Performed By: #### L 500.2500, L100.0100 ####[facility] [address] [place], [address] Urea nitrogen [Mass/Vol] 23 mg/dL High 7-18 [facility] Comment on above: Performed By: #### L 500.2500, L100.0100 ####[facility] [address] [place], [address] Operative Reporton Operative Report Normal [facility] Partial Thromboplast Timeon 03-15-2024 aPTT Coag (Bld) [Time] 98.9 s Invalid Interpretation Code 24.1-36.2 [facility] Comment on above: Result Comment: CRIT ICAL VALUE VERIFIED. CALLED TO SUSAN IGLESIAS RN ICU03/15/24 1633 Elmo Jimenez.RESULTS READ BACK BY SAME . Performed By: #### L 300.4310 ####[facility] [address] [place], [address] aPTT Coag (Bld) [Time] 49.9 s High 24.1-36.2 [facility] Comment on above: Performed By: #### L 300.4310 ####[facility] [address] [place], [address] Basic Metabolic Profile (BMP )on 03-14-2024 BUN/CRE 33.5 RATIO High 10-20 [facility] Comment on above: Performed By: #### L 500.2500, L100.0100 ####[facility] [address] [place], [address] CA,Total 8.7 mg/dL Normal 8.5-10.1 [facility] Comment on above: Performed By: #### L 500.2500, L100.0100 ####[facility] [address] [place], [address] Chloride [Moles/Vol] 110 mmol/L High 98-107 [facility] Comment on above: Performed By: #### L 500.2500, L100.0100 ####[facility] [address] [place], [address] CO2 [Moles/Vol] 26.0 mmol/L Normal 21.0-32.0 [facility] Comment on above: Performed By: #### L 500.2500, L100.0100 ####[facility] [address] [place], [address] Creatinine [Mass/Vol] 0.80 mg/dL Normal 0.55-1.02 [facility] Comment on above: Result Comment: The validity of the calculated GFR GFRAA in patients over70 years has not been determined. Clinical correlation isessential. Performed By: #### L 500.2500, L100.0100 ####[facility] [address] [place], [address] ECRCL 67.18 ml/min Normal [facility] Comment on above: Performed By: #### L 500.2500, L100.0100 ####[facility] [address] [place], [address] EST GFR - AA 89 mL/min Normal >60 [facility] Comment on above: Result Comment: Afri can Mauritanian GFR Calc Performed By: #### L 500.2500, L100.0100 ####[facility] [address] [place], [address] GAP 6 Normal 5-15 [facility] Comment on above: Performed By: #### L 500.2500, L100.0100 ####[facility] [address] [place], [address] GFR/1.73 sq M.predicted among non-blacks MDRD (S/P/Bld) [Vol rate/Area] 74 mL/min/{1.73_m2} Normal >60 [facility] Comment on above: Result Comment: Non- GFR Calc Performed By: #### L 500.2500, L100.0100 ####[facility] [address] [place], [address] Glucose [Mass/Vol] 135 mg/dL High 74-106 [facility] Comment on above: Result Comment: Fast ing Glucose result greater than or equal to 126 mg/dLsuggests DIABETES MELLITUS per A.D.A. criteria. Performed By: #### L 500.2500, L100.0100 ####[facility] [address] [place], [address] Potassium [Moles/Vol] 4.4 mmol/L Normal 3.5-5.1 [facility] Comment on above: Performed By: #### L 500.2500, L100.0100 ####[facility] [address] [place], [address] Sodium [Moles/Vol] 142 mmol/L Normal 136-145 [facility] Comment on above: Performed By: #### L 500.2500, L100.0100 ####[facility] [address] [place], [address] Urea nitrogen [Mass/Vol] 27 mg/dL High 7-18 [facility] Comment on above: Performed By: #### L 500.2500, L100.0100 ####[facility] [address] [place], [address] CBC W/Diff, Automatedon 09-0 3-2023 Absolute Lymph 2.42 X10 3/uL Normal 0.83-4.51 [facility] Comment on above: Performed By: #### L 500.2500, L100.0100 ####[facility] [address] [place], [address] Absolute Neut 6.5 X10 3/uL Normal 2.0-7.7 [facility] Comment on above: Performed By: #### L 500.2500, L100.0100 ####[facility] [address] [place], [address] Basophils/100 WBC (Bld) 0.7 % Normal 0-1 [facility] Comment on above: Performed By: #### L 500.2500, L100.0100 ####[facility] [address] [place], [address] Eosinophils/100 WBC (Bld) 0.8 % Normal 0-5 [facility] Comment on above: Performed By: #### L 500.2500, L100.0100 ####[facility] [address] [place], [address] Erythrocyte distribution width (RBC) [Ratio] 16.2 % High 11.6-14.6 [facility] Comment on above: Performed By: #### L 500.2500, L100.0100 ####[facility] [address] [place], [address] Hematocrit (Bld) [Volume fraction] 36.2 % Low 37-47 [facility] Comment on above: Performed By: #### L 500.2500, L100.0100 ####[facility] [address] [place], [address] Hemoglobin (Bld) [Mass/Vol] 11.5 g/dL Low 12.0-15.0 [facility] Comment on above: Performed By: #### L 500.2500, L100.0100 ####[facility] [address] [place], [address] IG% 3.300 High 0.0-0.9 [facility] Comment on above: Result Comment: IG% - Immature Granulocytes (promyelocytes, myelocytes andmetamyelocytes) > 1% indicates that a LEFT SHIFT is Present. Performed By: #### L 500.2500, L100.0100 ####[facility] [address] [place], [address] Lymphocytes/100 WBC (Bld) 22.5 % Normal 19-41 [facility] Comment on above: Performed By: #### L 500.2500, L100.0100 ####[facility] [address] [place], [address] MCH (RBC) [Entitic mass] 29.3 pg Normal 27.0-32.0 [facility] Comment on above: Performed By: #### L 500.2500, L100.0100 ####[facility] [address] [place], [address] MCHC (RBC) [Mass/Vol] 31.8 g/dL Low 32-36 [facility] Comment on above: Performed By: #### L 500.2500, L100.0100 ####[facility] [address] [place], [address] MCV (RBC) [Entitic vol] 92.1 fL Normal 81-99 [facility] Comment on above: Performed By: #### L 500.2500, L100.0100 ####[facility] [address] [place], [address] Monocytes/100 WBC (Bld) 12.1 % High 0-10 [facility] Comment on above: Performed By: #### L 500.2500, L100.0100 ####[facility] [address] [place], [address] Neutrophils/100 WBC (Bld) 60.6 % Normal 47-70 [facility] Comment on above: Performed By: #### L 500.2500, L100.0100 ####[facility] [address] [place], [address] Nucleated RBC (Bld) [#/Vol] 0 10*3/uL Normal 0-5 [facility] Comment on above: Performed By: #### L 500.2500, L100.0100 ####[facility] [address] [place], [address] Platelet mean volume (Bld) [Entitic vol] 9.5 fL Normal 6.2-12.0 [facility] Comment on above: Performed By: #### L 500.2500, L100.0100 ####[facility] [address] [place], [address] Platelets (Bld) [#/Vol] 178 10*3/uL Normal 150-450 [facility] Comment on above: Performed By: #### L 500.2500, L100.0100 ####[facility] [address] [place], [address] RBC (Bld) [#/Vol] 3.93 10*6/uL Low 4.2-5.4 [facility] Comment on above: Performed By: #### L 500.2500, L100.0100 ####[facility] [address] [place], [address] RDW SD 55.0 fl High 35.1-43.9 [facility] Comment on above: Performed By: #### L 500.2500, L100.0100 ####[facility] [address] [place], [address] WBC (Bld) [#/Vol] 10.8 10*3/uL Normal 4.4-11.0 [facility] Comment on above: Performed By: #### L 500.2500, L100.0100 ####[facility] [address] [place], [address] Partial Thromboplast Timeon 03-14-2024 aPTT Coag (Bld) [Time] 63.6 s High 24.1-36.2 [facility] Comment on above: Performed By: #### L 300.4310 ####[facility] [address] [place], [address] Basic Metabolic Profile (BMP )on 03-13-2024 BUN/CRE 28.5 RATIO High 10-20 [facility] Comment on above: Performed By: #### L 500.2500, L100.0100 ####[facility] [address] [place], [address] CA,Total 8.8 mg/dL Normal 8.5-10.1 [facility] Comment on above: Performed By: #### L 500.2500, L100.0100 ####[facility] [address] [place], [address] Chloride [Moles/Vol] 111 mmol/L High 98-107 [facility] Comment on above: Performed By: #### L 500.2500, L100.0100 ####[facility] [address] [place], [address] CO2 [Moles/Vol] 25.0 mmol/L Normal 21.0-32.0 [facility] Comment on above: Performed By: #### L 500.2500, L100.0100 ####[facility] [address] [place], [address] Creatinine [Mass/Vol] 0.95 mg/dL Normal 0.55-1.02 [facility] Comment on above: Result Comment: The validity of the calculated GFR GFRAA in patients over70 years has not been determined. Clinical correlation isessential. Performed By: #### L 500.2500, L100.0100 ####[facility] [address] [place], [address] ECRCL 55.44 ml/min Normal [facility] Comment on above: Performed By: #### L 500.2500, L100.0100 ####[facility] [address] [place], [address] EST GFR - AA 74 mL/min Normal >60 [facility] Comment on above: Result Comment: Afri can Mauritanian GFR Calc Performed By: #### L 500.2500, L100.0100 ####[facility] [address] [place], [address] GAP 6 Normal 5-15 [facility] Comment on above: Performed By: #### L 500.2500, L100.0100 ####[facility] [address] [place], [address] GFR/1.73 sq M.predicted among non-blacks MDRD (S/P/Bld) [Vol rate/Area] 61 mL/min/{1.73_m2} Normal >60 [facility] Comment on above: Result Comment: Non- GFR Calc Performed By: #### L 500.2500, L100.0100 ####[facility] [address] [place], [address] Glucose [Mass/Vol] 160 mg/dL High 74-106 [facility] Comment on above: Result Comment: Fast ing Glucose result greater than or equal to 126 mg/dLsuggests DIABETES MELLITUS per A.D.A. criteria. Performed By: #### L 500.2500, L100.0100 ####[facility] [address] [place], [address] Potassium [Moles/Vol] 4.0 mmol/L Normal 3.5-5.1 [facility] Comment on above: Performed By: #### L 500.2500, L100.0100 ####[facility] [address] [place], [address] Sodium [Moles/Vol] 142 mmol/L Normal 136-145 [facility] Comment on above: Performed By: #### L 500.2500, L100.0100 ####[facility] [address] [place], [address] Urea nitrogen [Mass/Vol] 27 mg/dL High 7-18 [facility] Comment on above: Performed By: #### L 500.2500, L100.0100 ####[facility] [address] [place], [address] CBC W/Diff, Automatedon 09-0 2-4 Absolute Lymph 2.44 X10 3/uL Normal 0.83-4.51 [facility] Comment on above: Performed By: #### L 500.2500, L100.0100 ####[facility] [address] [place], [address] Absolute Neut 7.1 X10 3/uL Normal 2.0-7.7 [facility] Comment on above: Performed By: #### L 500.2500, L100.0100 ####[facility] [address] [place], [address] Basophils/100 WBC (Bld) 0.6 % Normal 0-1 [facility] Comment on above: Performed By: #### L 500.2500, L100.0100 ####[facility] [address] [place], [address] Eosinophils/100 WBC (Bld) 0.4 % Normal 0-5 [facility] Comment on above: Performed By: #### L 500.2500, L100.0100 ####[facility] [address] [place], [address] Erythrocyte distribution width (RBC) [Ratio] 16.5 % High 11.6-14.6 [facility] Comment on above: Performed By: #### L 500.2500, L100.0100 ####[facility] [address] [place], [address] Hematocrit (Bld) [Volume fraction] 39.9 % Normal 37-47 [facility] Comment on above: Performed By: #### L 500.2500, L100.0100 ####[facility] [address] [place], [address] Hemoglobin (Bld) [Mass/Vol] 12.7 g/dL Normal 12.0-15.0 [facility] Comment on above: Performed By: #### L 500.2500, L100.0100 ####[facility] [address] [place], [address] IG% 2.800 High 0.0-0.9 [facility] Comment on above: Result Comment: IG% - Immature Granulocytes (promyelocytes, myelocytes andmetamyelocytes) > 1% indicates that a LEFT SHIFT is Present. Performed By: #### L 500.2500, L100.0100 ####[facility] [address] [place], [address] Lymphocytes/100 WBC (Bld) 21.7 % Normal 19-41 [facility] Comment on above: Performed By: #### L 500.2500, L100.0100 ####[facility] [address] [place], [address] MCH (RBC) [Entitic mass] 29.3 pg Normal 27.0-32.0 [facility] Comment on above: Performed By: #### L 500.2500, L100.0100 ####[facility] [address] [place], [address] MCHC (RBC) [Mass/Vol] 31.8 g/dL Low 32-36 [facility] Comment on above: Performed By: #### L 500.2500, L100.0100 ####[facility] [address] [place], [address] MCV (RBC) [Entitic vol] 91.9 fL Normal 81-99 [facility] Comment on above: Performed By: #### L 500.2500, L100.0100 ####[facility] [address] [place], [address] Monocytes/100 WBC (Bld) 11.0 % High 0-10 [facility] Comment on above: Performed By: #### L 500.2500, L100.0100 ####[facility] [address] [place], [address] Neutrophils/100 WBC (Bld) 63.5 % Normal 47-70 [facility] Comment on above: Performed By: #### L 500.2500, L100.0100 ####[facility] [address] [place], [address] Nucleated RBC (Bld) [#/Vol] 0 10*3/uL Normal 0-5 [facility] Comment on above: Performed By: #### L 500.2500, L100.0100 ####[facility] [address] [place], [address] Platelet mean volume (Bld) [Entitic vol] 9.6 fL Normal 6.2-12.0 [facility] Comment on above: Performed By: #### L 500.2500, L100.0100 ####[facility] [address] [place], [address] Platelets (Bld) [#/Vol] 209 10*3/uL Normal 150-450 [facility] Comment on above: Performed By: #### L 500.2500, L100.0100 ####[facility] [address] [place], [address] RBC (Bld) [#/Vol] 4.34 10*6/uL Normal 4.2-5.4 [facility] Comment on above: Performed By: #### L 500.2500, L100.0100 ####[facility] [address] [place], [address] RDW SD 55.4 fl High 35.1-43.9 [facility] Comment on above: Performed By: #### L 500.2500, L100.0100 ####[facility] [address] [place], [address] WBC (Bld) [#/Vol] 11.2 10*3/uL High 4.4-11.0 [facility] Comment on above: Performed By: #### L 500.2500, L100.0100 ####[facility] [address] [place], [address] Consultation - Intensiviston 03-13-2024 Consultation - [employer] Normal [facility] Consultation - Surgicalon Consultation - Surgical Normal [facility] Partial Thromboplast Timeon 03-13-2024 aPTT Coag (Bld) [Time] 68.5 s High 24.1-36.2 [facility] Comment on above: Performed By: #### L 300.4310 ####[facility] [address] [place], [address] aPTT Coag (Bld) [Time] 73.1 s High 24.1-36.2 [facility] Comment on above: Performed By: #### L 300.4310 ####[facility] [address] [place], [address] 12 Lead EKGon 03-12-2024 12 Lead EKG Normal [facility] BNP,B-Type NATRIURETIC PEPTI Marcelina 03-12-2024 Natriuretic peptide B (Bld) [Mass/Vol] 113.4 pg/mL High 0-100 [facility] Comment on above: Performed By: #### L 100.0100, L501.4020, L503.6620, L300.3900, L500.2500, L500.3400, L300.4310, L503.6005 ####[facility] [address] [place], [address] Basic Metabolic Profile (BMP )on 03-12-2024 BUN/CRE 24.8 RATIO High 10-20 [facility] Comment on above: Order Comment: 'TROP ' Serial specimen #1, #2 or #3: 1 Performed By: #### L 100.0100, L501.4020, L503.6620, L300.3900, L500.2500, L500.3400, L300.4310, L503.6005 ####[facility] [address] [place], [address] CA,Total 9.6 mg/dL Normal 8.5-10.1 [facility] Comment on above: Order Comment: 'TROP ' Serial specimen #1, #2 or #3: 1 Performed By: #### L 100.0100, L501.4020, L503.6620, L300.3900, L500.2500, L500.3400, L300.4310, L503.6005 ####[facility] [address] [place], [address] Chloride [Moles/Vol] 108 mmol/L High 98-107 [facility] Comment on above: Order Comment: 'TROP ' Serial specimen #1, #2 or #3: 1 Performed By: #### L 100.0100, L501.4020, L503.6620, L300.3900, L500.2500, L500.3400, L300.4310, L503.6005 ####[facility] [address] [place], [address] CO2 [Moles/Vol] 24.0 mmol/L Normal 21.0-32.0 [facility] Comment on above: Order Comment: 'TROP ' Serial specimen #1, #2 or #3: 1 Performed By: #### L 100.0100, L501.4020, L503.6620, L300.3900, L500.2500, L500.3400, L300.4310, L503.6005 ####[facility] [address] [place], [address] Creatinine [Mass/Vol] 1.13 mg/dL High 0.55-1.02 [facility] Comment on above: Order Comment: 'TROP ' Serial specimen #1, #2 or #3: 1 Result Comment: The validity of the calculated GFR GFRAA in patients over70 years has not been determined. Clinical correlation isessential. Performed By: #### L 100.0100, L501.4020, L503.6620, L300.3900, L500.2500, L500.3400, L300.4310, L503.6005 ####[facility] [address] [place], [address] ECRCL 48.36 ml/min Normal [facility] Comment on above: Order Comment: 'TROP ' Serial specimen #1, #2 or #3: 1 Performed By: #### L 100.0100, L501.4020, L503.6620, L300.3900, L500.2500, L500.3400, L300.4310, L503.6005 ####[facility] [address] [place], [address] EST GFR - AA 60 mL/min Normal >60 [facility] Comment on above: Order Comment: 'TROP ' Serial specimen #1, #2 or #3: 1 Result Comment: Afri can Mauritanian GFR Calc Performed By: #### L 100.0100, L501.4020, L503.6620, L300.3900, L500.2500, L500.3400, L300.4310, L503.6005 ####[facility] [address] [place], [address] GAP 9 Normal 5-15 [facility] Comment on above: Order Comment: 'TROP ' Serial specimen #1, #2 or #3: 1 Performed By: #### L 100.0100, L501.4020, L503.6620, L300.3900, L500.2500, L500.3400, L300.4310, L503.6005 ####[facility] [address] [place], [address] GFR/1.73 sq M.predicted among non-blacks MDRD (S/P/Bld) [Vol rate/Area] 50 mL/min/{1.73_m2} Low >60 [facility] Comment on above: Order Comment: 'TROP ' Serial specimen #1, #2 or #3: 1 Result Comment: Non- GFR Calc Performed By: #### L 100.0100, L501.4020, L503.6620, L300.3900, L500.2500, L500.3400, L300.4310, L503.6005 ####[facility] [address] [place], [address] Glucose [Mass/Vol] 223 mg/dL High 74-106 [facility] Comment on above: Order Comment: 'TROP ' Serial specimen #1, #2 or #3: 1 Result Comment: Gluc ose result greater than or equal to 200 mg/dLsuggests DIABETES MELLITUS per A.D.A. criteria. Performed By: #### L 100.0100, L501.4020, L503.6620, L300.3900, L500.2500, L500.3400, L300.4310, L503.6005 ####[facility] [address] [place], [address] Potassium [Moles/Vol] 4.1 mmol/L Normal 3.5-5.1 [facility] Comment on above: Order Comment: 'TROP ' Serial specimen #1, #2 or #3: 1 Result Comment: Slig ht Hemolysis, Result may be falsely increased. Performed By: #### L 100.0100, L501.4020, L503.6620, L300.3900, L500.2500, L500.3400, L300.4310, L503.6005 ####[facility] [address] [place], [address] Sodium [Moles/Vol] 141 mmol/L Normal 136-145 [facility] Comment on above: Order Comment: 'TROP ' Serial specimen #1, #2 or #3: 1 Performed By: #### L 100.0100, L501.4020, L503.6620, L300.3900, L500.2500, L500.3400, L300.4310, L503.6005 ####[facility] [address] [place], [address] Urea nitrogen [Mass/Vol] 28 mg/dL High 7-18 [facility] Comment on above: Order Comment: 'TROP ' Serial specimen #1, #2 or #3: 1 Performed By: #### L 100.0100, L501.4020, L503.6620, L300.3900, L500.2500, L500.3400, L300.4310, L503.6005 ####[facility] [address] [place], [address] CBC W/Diff, Automatedon 09-0 -2023 Absolute Lymph 1.90 X10 3/uL Normal 0.83-4.51 [facility] Comment on above: Performed By: #### L 100.0100, L501.4020, L503.6620, L300.3900, L500.2500, L500.3400, L300.4310, L503.6005 ####[facility] [address] [place], [address] Absolute Neut 10.6 X10 3/uL High 2.0-7.7 [facility] Comment on above: Performed By: #### L 100.0100, L501.4020, L503.6620, L300.3900, L500.2500, L500.3400, L300.4310, L503.6005 ####[facility] [address] [place], [address] Basophils/100 WBC (Bld) 1.1 % High 0-1 [facility] Comment on above: Performed By: #### L 100.0100, L501.4020, L503.6620, L300.3900, L500.2500, L500.3400, L300.4310, L503.6005 ####[facility] [address] [place], [address] Eosinophils/100 WBC (Bld) 0.1 % Normal 0-5 [facility] Comment on above: Performed By: #### L 100.0100, L501.4020, L503.6620, L300.3900, L500.2500, L500.3400, L300.4310, L503.6005 ####[facility] [address] [place], [address] Erythrocyte distribution width (RBC) [Ratio] 16.1 % High 11.6-14.6 [facility] Comment on above: Performed By: #### L 100.0100, L501.4020, L503.6620, L300.3900, L500.2500, L500.3400, L300.4310, L503.6005 ####[facility] [address] [place], [address] Hematocrit (Bld) [Volume fraction] 42.7 % Normal 37-47 [facility] Comment on above: Performed By: #### L 100.0100, L501.4020, L503.6620, L300.3900, L500.2500, L500.3400, L300.4310, L503.6005 ####[facility] [address] [place], [address] Hemoglobin (Bld) [Mass/Vol] 13.9 g/dL Normal 12.0-15.0 [facility] Comment on above: Performed By: #### L 100.0100, L501.4020, L503.6620, L300.3900, L500.2500, L500.3400, L300.4310, L503.6005 ####[facility] [address] [place], [address] IG% 2.300 High 0.0-0.9 [facility] Comment on above: Result Comment: IG% - Immature Granulocytes (promyelocytes, myelocytes andmetamyelocytes) > 1% indicates that a LEFT SHIFT is Present. Performed By: #### L 100.0100, L501.4020, L503.6620, L300.3900, L500.2500, L500.3400, L300.4310, L503.6005 ####[facility] [address] [place], [address] Lymphocytes/100 WBC (Bld) 13.4 % Low 19-41 [facility] Comment on above: Performed By: #### L 100.0100, L501.4020, L503.6620, L300.3900, L500.2500, L500.3400, L300.4310, L503.6005 ####[facility] [address] [place], [address] MCH (RBC) [Entitic mass] 29.1 pg Normal 27.0-32.0 [facility] Comment on above: Performed By: #### L 100.0100, L501.4020, L503.6620, L300.3900, L500.2500, L500.3400, L300.4310, L503.6005 ####[facility] [address] [place], [address] MCHC (RBC) [Mass/Vol] 32.6 g/dL Normal 32-36 [facility] Comment on above: Performed By: #### L 100.0100, L501.4020, L503.6620, L300.3900, L500.2500, L500.3400, L300.4310, L503.6005 ####[facility] [address] [place], [address] MCV (RBC) [Entitic vol] 89.5 fL Normal 81-99 [facility] Comment on above: Performed By: #### L 100.0100, L501.4020, L503.6620, L300.3900, L500.2500, L500.3400, L300.4310, L503.6005 ####[facility] [address] [place], [address] Monocytes/100 WBC (Bld) 8.1 % Normal 0-10 [facility] Comment on above: Performed By: #### L 100.0100, L501.4020, L503.6620, L300.3900, L500.2500, L500.3400, L300.4310, L503.6005 ####[facility] [address] [place], [address] Neutrophils/100 WBC (Bld) 75.0 % High 47-70 [facility] Comment on above: Performed By: #### L 100.0100, L501.4020, L503.6620, L300.3900, L500.2500, L500.3400, L300.4310, L503.6005 ####[facility] [address] [place], [address] Nucleated RBC (Bld) [#/Vol] 0 10*3/uL Normal 0-5 [facility] Comment on above: Performed By: #### L 100.0100, L501.4020, L503.6620, L300.3900, L500.2500, L500.3400, L300.4310, L503.6005 ####[facility] [address] [place], [address] Platelet mean volume (Bld) [Entitic vol] 10.0 fL Normal 6.2-12.0 [facility] Comment on above: Performed By: #### L 100.0100, L501.4020, L503.6620, L300.3900, L500.2500, L500.3400, L300.4310, L503.6005 ####[facility] [address] [place], [address] Platelets (Bld) [#/Vol] 266 10*3/uL Normal 150-450 [facility] Comment on above: Performed By: #### L 100.0100, L501.4020, L503.6620, L300.3900, L500.2500, L500.3400, L300.4310, L503.6005 ####[facility] [address] [place], [address] RBC (Bld) [#/Vol] 4.77 10*6/uL Normal 4.2-5.4 [facility] Comment on above: Performed By: #### L 100.0100, L501.4020, L503.6620, L300.3900, L500.2500, L500.3400, L300.4310, L503.6005 ####[facility] [address] [place], [address] RDW SD 51.7 fl High 35.1-43.9 [facility] Comment on above: Performed By: #### L 100.0100, L501.4020, L503.6620, L300.3900, L500.2500, L500.3400, L300.4310, L503.6005 ####[facility] [address] [place], [address] WBC (Bld) [#/Vol] 14.1 10*3/uL High 4.4-11.0 [facility] Comment on above: Performed By: #### L 100.0100, L501.4020, L503.6620, L300.3900, L500.2500, L500.3400, L300.4310, L503.6005 ####[facility] [address] [place], [address] CTA Chest W/WO Contraston CTA Chest W/WO Contrast Normal [facility] Echo Complete W/ Contraston 03-12-2024 Echo Complete W/ Contrast Normal [facility] Emergency Department Summary on 03-12-2024 Emergency Department Summary Normal [facility] H AND P Exam - Hospitaliston 03-12-2024 H&P Exam - Hospitalist Normal [facility] L501.4020on 03-12-2024 TROPONIN-I HS 282 pg/mL Invalid Interpretation Code 3.0-54.0 [facility] Comment on above: Order Comment: 'TROP ' Serial specimen #1, #2 or #3: 1 Result Comment: Duglas ical Result(s) Called at: 13:15:20 03/12/2024 by: Ellen Arthur RN (ER). Results read back by same. Please Note: New Test Units and Gender Specific Reference Ranges. For more information see Policy Stat Procedure Rayne High Sensitivity Troponin (TNIH) and attachments. Performed By: #### L 100.0100, L501.4020, L503.6620, L300.3900, L500.2500, L500.3400, L300.4310, L503.6005 ####[facility] [address] [place], [address] Lactic Acidon 03-12-2024 Lactate [Moles/Vol] 2.1 mmol/L Invalid Interpretation Code 0.4-1.9 [facility] Comment on above: Result Comment: Crit ical Result(s) Called at: 17:48:33 03/12/2024 by: ANDRES KELLEY. Results read back by same. Performed By: #### L 503.6005 ####[facility] [address] [place], [address] Lactate [Moles/Vol] 3.2 mmol/L Invalid Interpretation Code 0.4-1.9 [facility] Comment on above: Order Comment: Y Result Comment: Crit ical Result(s) Called at: 13:15:20 03/12/2024 by: Ellen Arthur RN (). Results read back by same. Performed By: #### L 100.0100, L501.4020, L503.6620, L300.3900, L500.2500, L500.3400, L300.4310, L503.6005 ####[facility] [address] [place], [address] Liver Profileon 03-12-2024 Albumin [Mass/Vol] 3.4 g/dL Normal 3.2-5.0 [facility] Comment on above: Order Comment: 'TROP ' Serial specimen #1, #2 or #3: 1 Performed By: #### L 100.0100, L501.4020, L503.6620, L300.3900, L500.2500, L500.3400, L300.4310, L503.6005 ####[facility] [address] [place], [address] ALK P 84 U/L Normal 45-117 [facility] Comment on above: Order Comment: 'TROP ' Serial specimen #1, #2 or #3: 1 Performed By: #### L 100.0100, L501.4020, L503.6620, L300.3900, L500.2500, L500.3400, L300.4310, L503.6005 ####[facility] [address] [place], [address] ALT [Catalytic activity/Vol] 33 U/L Normal 13-56 [facility] Comment on above: Order Comment: 'TROP ' Serial specimen #1, #2 or #3: 1 Performed By: #### L 100.0100, L501.4020, L503.6620, L300.3900, L500.2500, L500.3400, L300.4310, L503.6005 ####[facility] [address] [place], [address] AST [Catalytic activity/Vol] 33 U/L Normal 15-37 [facility] Comment on above: Order Comment: 'TROP ' Serial specimen #1, #2 or #3: 1 Result Comment: Slig ht Hemolysis, Result may be falsely increased. Performed By: #### L 100.0100, L501.4020, L503.6620, L300.3900, L500.2500, L500.3400, L300.4310, L503.6005 ####[facility] [address] [place], [address] Bilirubin [Mass/Vol] 0.60 mg/dL Normal 0.20-1.00 [facility] Comment on above: Order Comment: 'TROP ' Serial specimen #1, #2 or #3: 1 Result Comment: For patients on eltrombopag therapy, use of Dimension Rayne TBIL is not recommended. Performed By: #### L 100.0100, L501.4020, L503.6620, L300.3900, L500.2500, L500.3400, L300.4310, L503.6005 ####[facility] [address] [place], [address] Bilirubin.direct [Mass/Vol] 0.17 mg/dL Normal 0.00-0.30 [facility] Comment on above: Order Comment: 'TROP ' Serial specimen #1, #2 or #3: 1 Performed By: #### L 100.0100, L501.4020, L503.6620, L300.3900, L500.2500, L500.3400, L300.4310, L503.6005 ####[facility] [address] [place], [address] Globulin (S) [Mass/Vol] 3.2 g/dL Normal 2.2-4.2 [facility] Comment on above: Order Comment: 'TROP ' Serial specimen #1, #2 or #3: 1 Performed By: #### L 100.0100, L501.4020, L503.6620, L300.3900, L500.2500, L500.3400, L300.4310, L503.6005 ####[facility] [address] [place], [place], [phone] PROT 6.6 g/dL Normal 6.4-8.2 [facility] Comment on above: Order Comment: 'TROP ' Serial specimen #1, #2 or #3: 1 Performed By: #### L 100.0100, L501.4020, L503.6620, L300.3900, L500.2500, L500.3400, L300.4310, L503.6005 ####[facility] [address] [place], [place], [id number] Partial Thromboplast Timeon 03-12-2024 aPTT Coag (Bld) [Time] 219.3 s Invalid Interpretation Code 24.1-36.2 [facility] Comment on above: Result Comment: CRIT ICAL VALUE VERIFIED. CALLED TO [id number] Brenda Pereyra.RESULTS READ BACK BY SAME . Performed By: #### L 300.4310 ####[facility] [address] [place], [place], [id number] aPTT Coag (Bld) [Time] 22.2 s Low 24.1-36.2 [facility] Comment on above: Performed By: #### L 100.0100, L501.4020, L503.6620, L300.3900, L500.2500, L500.3400, L300.4310, L503.6005 ####[facility] [address] [place], [address] Prothrombin Time w/INRon INR Normal [facility] Comment on above: Result Comment: ELIE BIGGS [facility] RN PT HAD SAME LABS DONE 1 HOURAGO-SWRIGHT @1358 Performed By: #### L 300.3900 ####[facility] [address] [place], [address] PROTIME Normal 11.7-14.9 [facility] Comment on above: Result Comment: [facility] HAD SAME LABS DONE 1 HOURAGO-SWRIGHT @1358 Performed By: #### L 300.3900 ####[facility] [address] [place], [address] INR Coag (PPP) [Relative time] 1.0 {INR} Normal [facility] Comment on above: Performed By: #### L 100.0100, L501.4020, L503.6620, L300.3900, L500.2500, L500.3400, L300.4310, L503.6005 ####[facility] [address] [place], [address] PT Coag (PPP) [Time] 13.4 s Normal 11.7-14.9 [facility] Comment on above: Performed By: #### L 100.0100, L501.4020, L503.6620, L300.3900, L500.2500, L500.3400, L300.4310, L503.6005 ####[facility] [address] [place], [address] Venous Duplex US - Eben Extre mon 03-12-2024 Venous Duplex US - Eben Extrem Normal [facility] CBC W/Diff, Automatedon - Absolute Lymph 2.77 X10 3/uL Normal 0.83-4.51 [facility] Comment on above: Performed By: #### L 500.4100, L501.9520, L506.1000, L100.0100, L500.4050 ####[facility] [address] [place], [address] Absolute Neut 6.8 X10 3/uL Normal 2.0-7.7 [facility] Comment on above: Performed By: #### L 500.4100, L501.9520, L506.1000, L100.0100, L500.4050 ####[facility] [address] [place], [address] Basophils/100 WBC (Bld) 0.3 % Normal 0-1 [facility] Comment on above: Performed By: #### L 500.4100, L501.9520, L506.1000, L100.0100, L500.4050 ####[facility] [address] [place], [address] Eosinophils/100 WBC (Bld) 0.6 % Normal 0-5 [facility] Comment on above: Performed By: #### L 500.4100, L501.9520, L506.1000, L100.0100, L500.4050 ####[facility] [address] [place], [address] Erythrocyte distribution width (RBC) [Ratio] 15.6 % High 11.6-14.6 [facility] Comment on above: Performed By: #### L 500.4100, L501.9520, L506.1000, L100.0100, L500.4050 ####[facility] [address] [place], [address] Hematocrit (Bld) [Volume fraction] 43.7 % Normal 37-47 [facility] Comment on above: Performed By: #### L 500.4100, L501.9520, L506.1000, L100.0100, L500.4050 ####[facility] [address] [place], [address] Hemoglobin (Bld) [Mass/Vol] 15.7 g/dL High 12.0-15.0 [facility] Comment on above: Performed By: #### L 500.4100, L501.9520, L506.1000, L100.0100, L500.4050 ####[facility] [address] [place], [address] IG% 2.300 High 0.0-0.9 [facility] Comment on above: Result Comment: IG% - Immature Granulocytes (promyelocytes, myelocytes andmetamyelocytes) > 1% indicates that a LEFT SHIFT is Present. Performed By: #### L 500.4100, L501.9520, L506.1000, L100.0100, L500.4050 ####[facility] [address] [place], [address] Lymphocytes/100 WBC (Bld) 24.6 % Normal 19-41 [facility] Comment on above: Performed By: #### L 500.4100, L501.9520, L506.1000, L100.0100, L500.4050 ####[facility] [address] [place], [address] MCH (RBC) [Entitic mass] 31.8 pg Normal 27.0-32.0 [facility] Comment on above: Performed By: #### L 500.4100, L501.9520, L506.1000, L100.0100, L500.4050 ####[facility] [address] [place], [address] MCHC (RBC) [Mass/Vol] 35.9 g/dL Normal 32-36 [facility] Comment on above: Performed By: #### L 500.4100, L501.9520, L506.1000, L100.0100, L500.4050 ####[facility] [address] [place], [address] MCV (RBC) [Entitic vol] 88.5 fL Normal 81-99 [facility] Comment on above: Performed By: #### L 500.4100, L501.9520, L506.1000, L100.0100, L500.4050 ####[facility] [address] [place], [address] Monocytes/100 WBC (Bld) 11.6 % High 0-10 [facility] Comment on above: Performed By: #### L 500.4100, L501.9520, L506.1000, L100.0100, L500.4050 ####[facility] [address] [place], [address] Neutrophils/100 WBC (Bld) 60.6 % Normal 47-70 [facility] Comment on above: Performed By: #### L 500.4100, L501.9520, L506.1000, L100.0100, L500.4050 ####[facility] [address] [place], [address] Nucleated RBC (Bld) [#/Vol] 0 10*3/uL Normal 0-5 [facility] Comment on above: Performed By: #### L 500.4100, L501.9520, L506.1000, L100.0100, L500.4050 ####[facility] [address] [place], [address] Platelet mean volume (Bld) [Entitic vol] 10.2 fL Normal 6.2-12.0 [facility] Comment on above: Performed By: #### L 500.4100, L501.9520, L506.1000, L100.0100, L500.4050 ####[facility] [address] [place], [address] Platelets (Bld) [#/Vol] 335 10*3/uL Normal 150-450 [facility] Comment on above: Performed By: #### L 500.4100, L501.9520, L506.1000, L100.0100, L500.4050 ####[facility] [address] [place], [address] RBC (Bld) [#/Vol] 4.94 10*6/uL Normal 4.2-5.4 [facility] Comment on above: Performed By: #### L 500.4100, L501.9520, L506.1000, L100.0100, L500.4050 ####[facility] [address] [place], [address] RDW SD 50.6 fl High 35.1-43.9 [facility] Comment on above: Performed By: #### L 500.4100, L501.9520, L506.1000, L100.0100, L500.4050 ####[facility] [address] [place], [address] WBC (Bld) [#/Vol] 11.3 10*3/uL High 4.4-11.0 [facility] Comment on above: Performed By: #### L 500.4100, L501.9520, L506.1000, L100.0100, L500.4050 ####[facility] [address] [place], [address] Comprehensive Metabolic Prof [facility] 03-10-2024 Albumin [Mass/Vol] 3.3 g/dL Normal 3.2-5.0 [facility] Comment on above: Performed By: #### L 500.4100, L501.9520, L506.1000, L100.0100, L500.4050 ####[facility] [address] [place], [address] Albumin/Globulin [Mass ratio] 0.9 {ratio} Normal 0.9-2.4 [facility] Comment on above: Performed By: #### L 500.4100, L501.9520, L506.1000, L100.0100, L500.4050 ####[facility] [address] [place], [address] ALK P 84 U/L Normal 45-117 [facility] Comment on above: Performed By: #### L 500.4100, L501.9520, L506.1000, L100.0100, L500.4050 ####[facility] [address] [place], [address] ALT [Catalytic activity/Vol] 31 U/L Normal 13-56 [facility] Comment on above: Performed By: #### L 500.4100, L501.9520, L506.1000, L100.0100, L500.4050 ####[facility] [address] [place], [address] AST [Catalytic activity/Vol] 22 U/L Normal 15-37 [facility] Comment on above: Performed By: #### L 500.4100, L501.9520, L506.1000, L100.0100, L500.4050 ####[facility] [address] [place], [address] Bilirubin [Mass/Vol] 0.70 mg/dL Normal 0.20-1.00 [facility] Comment on above: Result Comment: For patients on eltrombopag therapy, use of Dimension Rayne TBIL is not recommended. Performed By: #### L 500.4100, L501.9520, L506.1000, L100.0100, L500.4050 ####[facility] [address] [place], [address] BUN/CRE 21.0 RATIO High 10-20 [facility] Comment on above: Performed By: #### L 500.4100, L501.9520, L506.1000, L100.0100, L500.4050 ####[facility] [address] [place], [address] CA,Total 9.7 mg/dL Normal 8.5-10.1 [facility] Comment on above: Performed By: #### L 500.4100, L501.9520, L506.1000, L100.0100, L500.4050 ####[facility] [address] [place], [address] Chloride [Moles/Vol] 111 mmol/L High 98-107 [facility] Comment on above: Performed By: #### L 500.4100, L501.9520, L506.1000, L100.0100, L500.4050 ####[facility] [address] [place], [address] CO2 [Moles/Vol] 24.0 mmol/L Normal 21.0-32.0 [facility] Comment on above: Performed By: #### L 500.4100, L501.9520, L506.1000, L100.0100, L500.4050 ####[facility] [address] [place], [address] Creatinine [Mass/Vol] 1.00 mg/dL Normal 0.55-1.02 [facility] Comment on above: Result Comment: The validity of the calculated GFR GFRAA in patients over70 years has not been determined. Clinical correlation isessential. Performed By: #### L 500.4100, L501.9520, L506.1000, L100.0100, L500.4050 ####[facility] [address] [place], [address] EST GFR - AA 69 mL/min Normal >60 [facility] Comment on above: Result Comment: Afri can [place] GFR Calc Performed By: #### L 500.4100, L501.9520, L506.1000, L100.0100, L500.4050 ####[facility] [address] [place], [address] GAP 7 Normal 5-15 [facility] Comment on above: Performed By: #### L 500.4100, L501.9520, L506.1000, L100.0100, L500.4050 ####[facility] [address] [place], [address] GFR/1.73 sq M.predicted among non-blacks MDRD (S/P/Bld) [Vol rate/Area] 57 mL/min/{1.73_m2} Low >60 [facility] Comment on above: Result Comment: Non- GFR Calc Performed By: #### L 500.4100, L501.9520, L506.1000, L100.0100, L500.4050 ####[facility] [address] [place], [address] Globulin (S) [Mass/Vol] 3.5 g/dL Normal 2.2-4.2 [facility] Comment on above: Performed By: #### L 500.4100, L501.9520, L506.1000, L100.0100, L500.4050 ####[facility] [address] [place], [address] Glucose [Mass/Vol] 148 mg/dL High 74-106 [facility] Comment on above: Result Comment: Fast ing Glucose result greater than or equal to 126 mg/dLsuggests DIABETES MELLITUS per A.D.A. criteria. Performed By: #### L 500.4100, L501.9520, L506.1000, L100.0100, L500.4050 ####[facility] [address] [place], [address] Potassium [Moles/Vol] 3.8 mmol/L Normal 3.5-5.1 [facility] Comment on above: Performed By: #### L 500.4100, L501.9520, L506.1000, L100.0100, L500.4050 ####[facility] [address] [place], [address] Sodium [Moles/Vol] 142 mmol/L Normal 136-145 [facility] Comment on above: Performed By: #### L 500.4100, L501.9520, L506.1000, L100.0100, L500.4050 ####[facility] [address] [place], [address] T PROT 6.8 g/dL Normal 6.4-8.2 [facility] Comment on above: Performed By: #### L 500.4100, L501.9520, L506.1000, L100.0100, L500.4050 ####[facility] [address] [place], [address] Urea nitrogen [Mass/Vol] 21 mg/dL High 7-18 [facility] Comment on above: Performed By: #### L 500.4100, L501.9520, L506.1000, L100.0100, L500.4050 ####[facility] [address] [place], [address] Lipid Profileon 03-10-2024 Cholesterol [Mass/Vol] 227 mg/dL High 200 [facility] Comment on above: Result Comment: <200 mg/dL Desirable 200-240 mg/dL Borderline >240 mg/dL High Risk Performed By: #### L 500.4100, L501.9520, L506.1000, L100.0100, L500.4050 ####[facility] [address] [place], [address] Cholesterol in HDL [Mass/Vol] 43 mg/dL Normal [facility] Comment on above: Result Comment: The drugs N-Acetylcysteine and Metamizole may falselydepress this assay. Reference Range HDL <40 mg/dL Low HDL Cholesterol HDL >or= 60 mg/dL High HDL Cholesterol Performed By: #### L 500.4100, L501.9520, L506.1000, L100.0100, L500.4050 ####[facility] [address] [place], [address] Cholesterol in LDL [Mass/Vol] 138 mg/dL High 0-130 [facility] Comment on above: Performed By: #### L 500.4100, L501.9520, L506.1000, L100.0100, L500.4050 ####[facility] [address] [place], [address] Cholesterol in VLDL [Mass/Vol] 46 mg/dL High 5-40 [facility] Comment on above: Performed By: #### L 500.4100, L501.9520, L506.1000, L100.0100, L500.4050 ####[facility] [address] [place], [address] Triglyceride [Mass/Vol] 230 mg/dL High [facility] Comment on above: Result Comment: The drugs N-Acetylcysteine and Metamizole may falselydepress this assay.Serum Triglycerides Reference Interval Normal <150 mg/dL Borderline high 150 - 199 mg/dL High 200 - 499 mg/dL Very High > or = 500 mg/dL Performed By: #### L 500.4100, L501.9520, L506.1000, L100.0100, L500.4050 ####[facility] [address] [place], [address] Thyroid Stim Hormone (TSH)on 03-10-2024 TSH 0.922 uIU/mL Normal 0.358-3.740 [facility] Comment on above: Performed By: #### L 500.4100, L501.9520, L506.1000, L100.0100, L500.4050 ####[facility] [address] [place], [address] Vitamin D,25 Hydroxyon 03-10 Vitamin D 25-OH 59.3 ng/mL Normal [facility] Comment on above: Result Comment: Luda min D 25(OH) Status Range Deficiency <20 ng/mL (50nmol/L) Insufficiency 20 - 30 ng/mL (50 - 75 nmol/L) Sufficiency 30 - 100 ng/mL (75 - 250 nmol/L) Toxicity >100 ng/mL (>250 nmol/L) Performed By: #### L 500.4100, L501.9520, L506.1000, L100.0100, L500.4050 ####[facility] [address] [place], [address] L/S Spine Min 4 Viewson 02-09 L/S Spine Min 4 Views Normal [facility] Orthopedic Visit Reporton Orthopedic Visit Report Normal [facility] Surgery Visit Reporton 02-22 Surgery Visit Report Normal [facility] CBC W/Diff, Automatedon 01-10 PATH REV Reviewed Normal [facility] Comment on above: Result Comment: Leuk ocytosis with Neutrophilic left shift.Clinical correlation necessary.Beto Green M.D. 02/04/24 AMENDED REPORT 02/04/24 1149 PATH REV previously reported as: November Performed By: #### L 100.0100 ####[facility] [address] [place], [address] Venous Duplex US, Unilateral on 02-04-2024 Venous Duplex US, Unilateral Normal [facility] Spine Lumbar (Routine)on Spine Lumbar (Routine) Normal [facility] Stool Occult Blood iFOBon STOB Positive Normal [facility] Comment on above: Performed By: #### M 100.7900 ####[facility] [address] [place], [address] Inital Evaluation (1) - PTon --2023 Inital Evaluation (1) - PT Normal [facility] CBC W/Diff, Automatedon 07-0 Absolute Lymph 2.29 X10 3/uL Normal 0.83-4.51 [facility] Comment on above: Performed By: #### L 100.0100 ####[facility] [address] [place], [address] Absolute Neut 7.1 X10 3/uL Normal 2.0-7.7 [facility] Comment on above: Performed By: #### L 100.0100 ####[facility] [address] [place], [address] Basophils/100 WBC (Bld) 0.5 % Normal 0-1 [facility] Comment on above: Performed By: #### L 100.0100 ####[facility] [address] [place], [address] Eosinophils/100 WBC (Bld) 0.4 % Normal 0-5 [facility] Comment on above: Performed By: #### L 100.0100 ####[facility] [address] [place], [address] Erythrocyte distribution width (RBC) [Ratio] 14.7 % High 11.6-14.6 [facility] Comment on above: Performed By: #### L 100.0100 ####[facility] [address] [place], [address] Hematocrit (Bld) [Volume fraction] 44.8 % Normal 37-47 [facility] Comment on above: Performed By: #### L 100.0100 ####[facility] [address] [place], [address] Hemoglobin (Bld) [Mass/Vol] 14.3 g/dL Normal 12.0-15.0 [facility] Comment on above: Performed By: #### L 100.0100 ####[facility] [address] [place], [address] IG% 3.600 High 0.0-0.9 [facility] Comment on above: Result Comment: IG% - Immature Granulocytes (promyelocytes, myelocytes andmetamyelocytes) > 1% indicates that a LEFT SHIFT is Present. Performed By: #### L 100.0100 ####[facility] [address] [place], [address] Lymphocytes/100 WBC (Bld) 20.9 % Normal 19-41 [facility] Comment on above: Performed By: #### L 100.0100 ####[facility] [address] [place], [address] MCH (RBC) [Entitic mass] 28.7 pg Normal 27.0-32.0 [facility] Comment on above: Performed By: #### L 100.0100 ####[facility] [address] [place], [address] MCHC (RBC) [Mass/Vol] 31.9 g/dL Low 32-36 [facility] Comment on above: Performed By: #### L 100.0100 ####[facility] [address] [place], [address] MCV (RBC) [Entitic vol] 89.8 fL Normal 81-99 [facility] Comment on above: Performed By: #### L 100.0100 ####[facility] [address] [place], [address] Monocytes/100 WBC (Bld) 10.1 % High 0-10 [facility] Comment on above: Performed By: #### L 100.0100 ####[facility] [address] [facility] [place], [address] Neutrophils/100 WBC (Bld) 64.5 % Normal 47-70 [facility] Comment on above: Performed By: #### L 100.0100 ####[facility] [address] [place], [address] Nucleated RBC (Bld) [#/Vol] 0 10*3/uL Normal 0-5 [facility] Comment on above: Performed By: #### L 100.0100 ####[facility] [address] [place], [address] Platelet mean volume (Bld) [Entitic vol] 9.7 fL Normal 6.2-12.0 [facility] Comment on above: Performed By: #### L 100.0100 ####[facility] [address] [place], [address] Platelets (Bld) [#/Vol] 303 10*3/uL Normal 150-450 [facility] Comment on above: Performed By: #### L 100.0100 ####[facility] [address] [place], [address] RBC (Bld) [#/Vol] 4.99 10*6/uL Normal 4.2-5.4 [facility] Comment on above: Performed By: #### L 100.0100 ####[facility] [address] [place], [address] RDW SD 47.7 fl High 35.1-43.9 [facility] Comment on above: Performed By: #### L 100.0100 ####[facility] [address] [place], [address] WBC (Bld) [#/Vol] 11.0 10*3/uL Normal 4.4-11.0 [facility] Comment on above: Performed By: #### L 100.0100 ####[facility] [address] [place], [address] Emergency Department Summary on 01-10-2024 Emergency Department Summary Normal [facility] Basic Metabolic Profile (BMP )on 12-16-2023 BUN/CRE 34.0 RATIO High 10-20 [facility] Comment on above: Performed By: #### L 500.2500, L100.0100 ####[facility] [address] [place], [address] CA,Total 8.5 mg/dL Normal 8.5-10.1 [facility] Comment on above: Performed By: #### L 500.2500, L100.0100 ####[facility] [address] [place], [address] Chloride [Moles/Vol] 110 mmol/L High 98-107 [facility] Comment on above: Performed By: #### L 500.2500, L100.0100 ####[facility] [address] [place], [address] CO2 [Moles/Vol] 23.0 mmol/L Normal 21.0-32.0 [facility] Comment on above: Performed By: #### L 500.2500, L100.0100 ####[facility] [address] [place], [address] Creatinine [Mass/Vol] 1.03 mg/dL High 0.55-1.02 [facility] Comment on above: Result Comment: The validity of the calculated GFR GFRAA in patients over70 years has not been determined. Clinical correlation isessential. Performed By: #### L 500.2500, L100.0100 ####[facility] [address] [place], [address] ECRCL 54.98 ml/min Normal [facility] Comment on above: Performed By: #### L 500.2500, L100.0100 ####[facility] [address] [place], [address] EST GFR - AA 67 mL/min Normal >60 [facility] Comment on above: Result Comment: Afri can [place] GFR Calc Performed By: #### L 500.2500, L100.0100 ####[facility] [address] [place], [address] GAP 6 Normal 5-15 [facility] Comment on above: Performed By: #### L 500.2500, L100.0100 ####[facility] [address] [place], [address] GFR/1.73 sq M.predicted among non-blacks MDRD (S/P/Bld) [Vol rate/Area] 56 mL/min/{1.73_m2} Low >60 [facility] Comment on above: Result Comment: Non- GFR Calc Performed By: #### L 500.2500, L100.0100 ####[facility] [address] [place], [address] Glucose [Mass/Vol] 157 mg/dL High 74-106 [facility] Comment on above: Result Comment: Fast ing Glucose result greater than or equal to 126 mg/dLsuggests DIABETES MELLITUS per A.D.A. criteria. Performed By: #### L 500.2500, L100.0100 ####[facility] [address] [place], [address] Potassium [Moles/Vol] 3.5 mmol/L Normal 3.5-5.1 [facility] Comment on above: Performed By: #### L 500.2500, L100.0100 ####[facility] [address] [place], [address] Sodium [Moles/Vol] 139 mmol/L Normal 136-145 [facility] Comment on above: Performed By: #### L 500.2500, L100.0100 ####[facility] [address] [place], [address] Urea nitrogen [Mass/Vol] 35 mg/dL High 7-18 [facility] Comment on above: Performed By: #### L 500.2500, L100.0100 ####[facility] [address] [place], [address] CBC W/Diff, Automatedon 06-0 6-2024 Absolute Lymph 2.51 X10 3/uL Normal 0.83-4.51 [facility] Comment on above: Performed By: #### L 500.2500, L100.0100 ####[facility] [address] [place], [address] Absolute Neut 9.1 X10 3/uL High 2.0-7.7 [facility] Comment on above: Performed By: #### L 500.2500, L100.0100 ####[facility] [address] [place], [address] Basophils/100 WBC (Bld) 0.4 % Normal 0-1 [facility] Comment on above: Performed By: #### L 500.2500, L100.0100 ####[facility] [address] [place], [address] Eosinophils/100 WBC (Bld) 0.9 % Normal 0-5 [facility] Comment on above: Performed By: #### L 500.2500, L100.0100 ####[facility] [address] [place], [address] Erythrocyte distribution width (RBC) [Ratio] 14.3 % Normal 11.6-14.6 [facility] Comment on above: Performed By: #### L 500.2500, L100.0100 ####[facility] [address] [place], [address] Hematocrit (Bld) [Volume fraction] 37.7 % Normal 37-47 [facility] Comment on above: Performed By: #### L 500.2500, L100.0100 ####[facility] [address] [place], [address] Hemoglobin (Bld) [Mass/Vol] 12.4 g/dL Normal 12.0-15.0 [facility] Comment on above: Performed By: #### L 500.2500, L100.0100 ####[facility] [address] [place], [address] IG% 1.700 High 0.0-0.9 [facility] Comment on above: Result Comment: IG% - Immature Granulocytes (promyelocytes, myelocytes andmetamyelocytes) > 1% indicates that a LEFT SHIFT is Present. Performed By: #### L 500.2500, L100.0100 ####[facility] [address] [place], [address] Lymphocytes/100 WBC (Bld) 18.8 % Low 19-41 [facility] Comment on above: Performed By: #### L 500.2500, L100.0100 ####[facility] [address] [place], [address] MCH (RBC) [Entitic mass] 29.8 pg Normal 27.0-32.0 [facility] Comment on above: Performed By: #### L 500.2500, L100.0100 ####[facility] [address] [place], [address] MCHC (RBC) [Mass/Vol] 32.9 g/dL Normal 32-36 [facility] Comment on above: Performed By: #### L 500.2500, L100.0100 ####[facility] [address] [place], [address] MCV (RBC) [Entitic vol] 90.6 fL Normal 81-99 [facility] Comment on above: Performed By: #### L 500.2500, L100.0100 ####[facility] [address] [place], [address] Monocytes/100 WBC (Bld) 10.6 % High 0-10 [facility] Comment on above: Performed By: #### L 500.2500, L100.0100 ####[facility] [address] [place], [address] Neutrophils/100 WBC (Bld) 67.6 % Normal 47-70 [facility] Comment on above: Performed By: #### L 500.2500, L100.0100 ####[facility] [address] [place], [address] Nucleated RBC (Bld) [#/Vol] 0 10*3/uL Normal 0-5 [facility] Comment on above: Performed By: #### L 500.2500, L100.0100 ####[facility] [address] [place], [address] Platelet mean volume (Bld) [Entitic vol] 9.6 fL Normal 6.2-12.0 [facility] Comment on above: Performed By: #### L 500.2500, L100.0100 ####[facility] [address] [place], [address] Platelets (Bld) [#/Vol] 198 10*3/uL Normal 150-450 [facility] Comment on above: Performed By: #### L 500.2500, L100.0100 ####[facility] [address] [place], [address] RBC (Bld) [#/Vol] 4.16 10*6/uL Low 4.2-5.4 [facility] Comment on above: Performed By: #### L 500.2500, L100.0100 ####[facility] [address] [place], [address] RDW SD 47.4 fl High 35.1-43.9 [facility] Comment on above: Performed By: #### L 500.2500, L100.0100 ####[facility] [address] [place], [address] WBC (Bld) [#/Vol] 13.4 10*3/uL High 4.4-11.0 [facility] Comment on above: Performed By: #### L 500.2500, L100.0100 ####[facility] [address] [place], [address] Discharge Instructionon 06-0 Discharge Instruction Normal [facility] Partial Thromboplast Timeon 12-16-2023 aPTT Coag (Bld) [Time] 27.0 s Normal 24.1-36.2 [facility] Comment on above: Order Comment: Comme nts: time sensitive hep gtt Performed By: #### L 300.4310 ####[facility] [address] [place], [address] aPTT Coag (Bld) [Time] 52.8 s High 24.1-36.2 [facility] Comment on above: Performed By: #### L 300.4310 ####[facility] [address] [place], [address] aPTT Coag (Bld) [Time] 60.3 s High 24.1-36.2 [facility] Comment on above: Performed By: #### L 300.4310 ####[facility] [address] [place], [address] CBC W/Diff, Automatedon -0 PATH REV Reviewed Normal [facility] Comment on above: Result Comment: Leuk ocytosis.Clinical correlation necessary.Beto Green M.D. 12/15/23 AMENDED REPORT 12/15/23 1045 PATH REV previously reported as: November foll Performed By: #### L 501.5200, L100.0100, L500.4050, L501.9520, L501.2300 ####[facility] [address] [place], [address] PATH REV Reviewed Normal [facility] Comment on above: Result Comment: Leuk ocytosis with Neutrophilic left shift.Clinical correlation necessary.Beto Green M.D. 12/15/23 AMENDED REPORT 12/15/23 1041 PATH REV previously reported as: November Performed By: #### L 501.5425, L500.2500, L100.0100 ####[facility] [address] [place], [address] Comprehensive Metabolic Prof iaon 12-15-2023 Albumin [Mass/Vol] 2.8 g/dL Low 3.2-5.0 [facility] Comment on above: Performed By: #### L 501.5200, L100.0100, L500.4050, L501.9520, L501.2300 ####[facility] [address] [place], [address] Albumin/Globulin [Mass ratio] 0.8 {ratio} Low 0.9-2.4 [facility] Comment on above: Performed By: #### L 501.5200, L100.0100, L500.4050, L501.9520, L501.2300 ####[facility] [address] [place], [address] ALK P 86 U/L Normal 45-117 [facility] Comment on above: Performed By: #### L 501.5200, L100.0100, L500.4050, L501.9520, L501.2300 ####[facility] [address] [place], [address] ALT [Catalytic activity/Vol] 22 U/L Normal 13-56 [facility] Comment on above: Performed By: #### L 501.5200, L100.0100, L500.4050, L501.9520, L501.2300 ####[facility] [address] [place], [address] AST [Catalytic activity/Vol] 29 U/L Normal 15-37 [facility] Comment on above: Performed By: #### L 501.5200, L100.0100, L500.4050, L501.9520, L501.2300 ####[facility] [address] [place], [address] Bilirubin [Mass/Vol] 1.20 mg/dL High 0.20-1.00 [facility] Comment on above: Result Comment: For patients on eltrombopag therapy, use of Dimension Rayne TBIL is not recommended. Performed By: #### L 501.5200, L100.0100, L500.4050, L501.9520, L501.2300 ####[facility] [address] [place], [address] BUN/CRE 22.5 RATIO High 10-20 [facility] Comment on above: Performed By: #### L 501.5200, L100.0100, L500.4050, L501.9520, L501.2300 ####[facility] [address] [place], [address] CA,Total 8.8 mg/dL Normal 8.5-10.1 [facility] Comment on above: Performed By: #### L 501.5200, L100.0100, L500.4050, L501.9520, L501.2300 ####[facility] [address] [place], [address] Chloride [Moles/Vol] 110 mmol/L High 98-107 [facility] Comment on above: Performed By: #### L 501.5200, L100.0100, L500.4050, L501.9520, L501.2300 ####[facility] [address] [place], [address] CO2 [Moles/Vol] 20.0 mmol/L Low 21.0-32.0 [facility] Comment on above: Performed By: #### L 501.5200, L100.0100, L500.4050, L501.9520, L501.2300 ####[facility] [address] [place], [address] Creatinine [Mass/Vol] 1.11 mg/dL High 0.55-1.02 [facility] Comment on above: Result Comment: The validity of the calculated GFR GFRAA in patients over70 years has not been determined. Clinical correlation isessential. Performed By: #### L 501.5200, L100.0100, L500.4050, L501.9520, L501.2300 ####[facility] [address] [place], [address] ECRCL 50.96 ml/min Normal [facility] Comment on above: Performed By: #### L 501.5200, L100.0100, L500.4050, L501.9520, L501.2300 ####[facility] [address] [place], [address] EST GFR - AA 62 mL/min Normal >60 [facility] Comment on above: Result Comment: Afri can Mauritanian GFR Calc Performed By: #### L 501.5200, L100.0100, L500.4050, L501.9520, L501.2300 ####[facility] [address] [place], [address] GAP 10 Normal 5-15 [facility] Comment on above: Performed By: #### L 501.5200, L100.0100, L500.4050, L501.9520, L501.2300 ####[facility] [address] [place], [address] GFR/1.73 sq M.predicted among non-blacks MDRD (S/P/Bld) [Vol rate/Area] 51 mL/min/{1.73_m2} Low >60 [facility] Comment on above: Result Comment: Non- GFR Calc Performed By: #### L 501.5200, L100.0100, L500.4050, L501.9520, L501.2300 ####[facility] [address] [place], [address] Globulin (S) [Mass/Vol] 3.7 g/dL Normal 2.2-4.2 [facility] Comment on above: Performed By: #### L 501.5200, L100.0100, L500.4050, L501.9520, L501.2300 ####[facility] [address] [place], [address] Glucose [Mass/Vol] 121 mg/dL High 74-106 [facility] Comment on above: Result Comment: Fast ing Glucose result from 100 to 125 mg/dLsuggests IMPAIRED HOMEOSTASIS per A.D.A. criteria. Performed By: #### L 501.5200, L100.0100, L500.4050, L501.9520, L501.2300 ####[facility] [address] [place], [address] Potassium [Moles/Vol] 3.9 mmol/L Normal 3.5-5.1 [facility] Comment on above: Performed By: #### L 501.5200, L100.0100, L500.4050, L501.9520, L501.2300 ####[facility] [address] [place], [address] Sodium [Moles/Vol] 140 mmol/L Normal 136-145 [facility] Comment on above: Performed By: #### L 501.5200, L100.0100, L500.4050, L501.9520, L501.2300 ####[facility] [address] [place], [address] T PROT 6.5 g/dL Normal 6.4-8.2 [facility] Comment on above: Performed By: #### L 501.5200, L100.0100, L500.4050, L501.9520, L501.2300 ####[facility] [address] [place], [address] Urea nitrogen [Mass/Vol] 25 mg/dL High 7-18 [facility] Comment on above: Performed By: #### L 501.5200, L100.0100, L500.4050, L501.9520, L501.2300 ####[facility] [address] [place], [address] Echo Complete W/ Contraston 12-15-2023 Echo Complete W/ Contrast Normal [facility] L501.4020on 12-15-2023 TROPONIN-I HS 322 pg/mL Invalid Interpretation Code 3.0-54.0 [facility] Comment on above: Order Comment: 'TROP ' Serial specimen #1, #2 or #3: 3 Result Comment: Crit ical Result(s) Called at: 08:26:07 12/15/2023 by: Raymond to Erin Sullivan. Results read back by same. Please Note: New Test Units and Gender Specific Reference Ranges. For more information see Policy Stat Procedure Rayne High Sensitivity Troponin (TNIH) and attachments. Performed By: #### L 501.4020, L500.4100 ####[facility] [address] [place], [address] Lipid Profileon 12-15-2023 Cholesterol [Mass/Vol] 161 mg/dL Normal 200 [facility] Comment on above: Order Comment: 'TROP ' Serial specimen #1, #2 or #3: 3 Result Comment: <200 mg/dL Desirable 200-240 mg/dL Borderline >240 mg/dL High Risk Performed By: #### L 501.4020, L500.4100 ####[facility] [address] [place], [address] Cholesterol in HDL [Mass/Vol] 35 mg/dL Low [facility] Comment on above: Order Comment: 'TROP ' Serial specimen #1, #2 or #3: 3 Result Comment: The drugs N-Acetylcysteine and Metamizole may falselydepress this assay. Reference Range HDL <40 mg/dL Low HDL Cholesterol HDL >or= 60 mg/dL High HDL Cholesterol Performed By: #### L 501.4020, L500.4100 ####[facility] [address] [place], [address] Cholesterol in LDL [Mass/Vol] 103 mg/dL Normal 0-130 [facility] Comment on above: Order Comment: 'TROP ' Serial specimen #1, #2 or #3: 3 Performed By: #### L 501.4020, L500.4100 ####[facility] [address] [place], [address] Cholesterol in VLDL [Mass/Vol] 23 mg/dL Normal 5-40 [facility] Comment on above: Order Comment: 'TROP ' Serial specimen #1, #2 or #3: 3 Performed By: #### L 501.4020, L500.4100 ####[facility] [address] [place], [address] Triglyceride [Mass/Vol] 116 mg/dL Normal [facility] Comment on above: Order Comment: 'TROP ' Serial specimen #1, #2 or #3: 3 Result Comment: The drugs N-Acetylcysteine and Metamizole may falselydepress this assay.Serum Triglycerides Reference Interval Normal <150 mg/dL Borderline high 150 - 199 mg/dL High 200 - 499 mg/dL Very High > or = 500 mg/dL Performed By: #### L 501.4020, L500.4100 ####[facility] [address] [place], [address] Magnesiumon 12-15-2023 Magnesium [Mass/Vol] 2.4 mg/dL Normal 1.6-2.6 [facility] Comment on above: Performed By: #### L 501.5200, L100.0100, L500.4050, L501.9520, L501.2300 ####[facility] [address] [place], [address] Partial Thromboplast Timeon 12-15-2023 aPTT Coag (Bld) [Time] 47.8 s High 24.1-36.2 [facility] Comment on above: Order Comment: Comme nts: Heparin gtt Performed By: #### L 300.4310 ####[facility] [address] [place], [address] aPTT Coag (Bld) [Time] 53.9 s High 24.1-36.2 [facility] Comment on above: Performed By: #### L 300.4310 ####[facility] [address] [place], [address] aPTT Coag (Bld) [Time] 58.6 s High 24.1-36.2 [facility] Comment on above: Performed By: #### L 300.4310 ####[facility] [address] [place], [address] Phosphoruson 12-15-2023 Phosphate [Mass/Vol] 3.3 mg/dL Normal 2.5-4.9 [facility] Comment on above: Performed By: #### L 501.5200, L100.0100, L500.4050, L501.9520, L501.2300 ####[facility] [address] [place], [address] Thyroid Stim Hormone (TSH)on 12-15-2023 TSH 0.58 uIU/mL Normal 0.358-3.74 [facility] Comment on above: Performed By: #### L 501.5200, L100.0100, L500.4050, L501.9520, L501.2300 ####[facility] [address] [place], [address] Venous Duplex US - Eben Extre mon 12-15-2023 Venous Duplex US - Eben Extrem Normal [facility] 12 Lead EKGon 12-14-2023 12 Lead EKG Normal [facility] Basic Metabolic Profile (BMP )on 12-14-2023 BUN/CRE 23.4 RATIO High 10-20 [facility] Comment on above: Order Comment: 1Y Performed By: #### L 501.5425, L500.2500, L100.0100 ####[facility] [address] [place], [address] CA,Total 9.0 mg/dL Normal 8.5-10.1 [facility] Comment on above: Order Comment: 1Y Performed By: #### L 501.5425, L500.2500, L100.0100 ####[facility] [address] [place], [address] Chloride [Moles/Vol] 109 mmol/L High 98-107 [facility] Comment on above: Order Comment: 1Y Performed By: #### L 501.5425, L500.2500, L100.0100 ####[facility] [address] [place], [address] CO2 [Moles/Vol] 27.0 mmol/L Normal 21.0-32.0 [facility] Comment on above: Order Comment: 1Y Performed By: #### L 501.5425, L500.2500, L100.0100 ####[facility] [address] [place], [address] Creatinine [Mass/Vol] 1.07 mg/dL High 0.55-1.02 [facility] Comment on above: Order Comment: 1Y Result Comment: The validity of the calculated GFR GFRAA in patients over70 years has not been determined. Clinical correlation isessential. Performed By: #### L 501.5425, L500.2500, L100.0100 ####[facility] [address] [place], [address] ECRCL 53.43 ml/min Normal [facility] Comment on above: Order Comment: 1Y Performed By: #### L 501.5425, L500.2500, L100.0100 ####[facility] [address] [place], [address] EST GFR - AA 64 mL/min Normal >60 [facility] Comment on above: Order Comment: 1Y Result Comment: Afri can Mauritanian GFR Calc Performed By: #### L 501.5425, L500.2500, L100.0100 ####[facility] [address] [place], [address] GAP 4 Low 5-15 [facility] Comment on above: Order Comment: 1Y Performed By: #### L 501.5425, L500.2500, L100.0100 ####[facility] [address] [place], [address] GFR/1.73 sq M.predicted among non-blacks MDRD (S/P/Bld) [Vol rate/Area] 53 mL/min/{1.73_m2} Low >60 [facility] Comment on above: Order Comment: 1Y Result Comment: Non- GFR Calc Performed By: #### L 501.5425, L500.2500, L100.0100 ####[facility] [address] [place], [address] Glucose [Mass/Vol] 127 mg/dL High 74-106 [facility] Comment on above: Order Comment: 1Y Result Comment: Fast ing Glucose result greater than or equal to 126 mg/dLsuggests DIABETES MELLITUS per A.D.A. criteria. Performed By: #### L 501.5425, L500.2500, L100.0100 ####[facility] [address] [place], [address] Potassium [Moles/Vol] 4.0 mmol/L Normal 3.5-5.1 [facility] Comment on above: Order Comment: 1Y Performed By: #### L 501.5425, L500.2500, L100.0100 ####[facility] [address] [place], [address] Sodium [Moles/Vol] 140 mmol/L Normal 136-145 [facility] Comment on above: Order Comment: 1Y Performed By: #### L 501.5425, L500.2500, L100.0100 ####[facility] [address] [place], [address] Urea nitrogen [Mass/Vol] 25 mg/dL High 7-18 [facility] Comment on above: Order Comment: 1Y Performed By: #### L 501.5425, L500.2500, L100.0100 ####[facility] [address] [place], [address] CTA Chest W/WO Contraston CTA Chest W/WO Contrast Normal [facility] Chest 1 View (Portable)on Chest 1 View (Portable) Normal [facility] Emergency Department Summary on 12-14-2023 Emergency Department Summary Normal [facility] H AND P Exam - Hospitaliston 12-14-2023 H&P Exam - Hospitalist Normal [facility] L501.4020on 12-14-2023 TROPONIN-I HS 399 pg/mL Invalid Interpretation Code 3.0-54.0 [facility] Comment on above: Result Comment: Crit ical Result(s) Called at: 23:43:40 12/14/2023 by: Watson. macy Inman RN ED. Results read back by same. Please Note: New Test Units and Gender Specific Reference Ranges. For more information see Policy Stat Procedure Rayne High Sensitivity Troponin (TNIH) and attachments. Performed By: #### L 501.4020 ####[facility] [address] [place], [address] L501.5425on 12-14-2023 TROPONIN-I HS 283 pg/mL Invalid Interpretation Code 3.0-54.0 [facility] Comment on above: Order Comment: 1Y Result Comment: Crit ical Result(s) Called at: 21:24:10 12/14/2023 by:Leatha Taylor to Dr [place]. Results read back by same. Please Note: New Test Units and Gender Specific Reference Ranges. For more information see Policy Stat Procedure Rayne High Sensitivity Troponin (TNIH) and attachments. Performed By: #### L 501.5425, L500.2500, L100.0100 ####[facility] [address] [place], [address] Partial Thromboplast Timeon 12-14-2023 aPTT Coag (Bld) [Time] 28.8 s Normal 24.1-36.2 [facility] Comment on above: Performed By: #### L 300.4310, L300.3900 ####[facility] [address] [place], [address] Prothrombin Time w/INRon INR Coag (PPP) [Relative time] 1.2 {INR} Normal [facility] Comment on above: Performed By: #### L 300.4310, L300.3900 ####[facility] [address] [place], [address] PT Coag (PPP) [Time] 14.9 s Normal 11.7-14.9 [facility] Comment on above: Performed By: #### L 300.4310, L300.3900 ####[facility] [address] [place], [address] Absolute lymphocyte countOrd ered By: Ed Bowman on 09-06-2023 Lymphocytes Auto (Unsp spec) [#/Vol] 1.38 10*3/uL 0.83-4.51 [facility] Basophil percentageOrdered B y: Ed Bowman on 09-06-2023 Basophil percentage Not Reportable [facility] Bilirubin [Mass/Vol] 0.70 mg/dL 0.20-1.00 [facility] Comment on above: For patients on eltr ombopag therapy, use of Dimension Rayne TBIL is not recommended. Chloride [Moles/Vol] 106 mmol/L 98-107 [facility] Glucose [Mass/Vol] 168 mg/dL 74-106 [facility] Comment on above: Fasting Glucose resu lt greater than or equal to 126 mg/dL suggests DIABETES MELLITUS per A.D.A. criteria. Hemoglobin (Bld) [Mass/Vol] 15.3 g/dL 12.0-15.0 [facility] Neutrophils (Bld) [#/Vol] 9.9 10*3/uL 2.0-7.7 [facility] Potassium [Moles/Vol] 3.9 mmol/L 3.5-5.1 [facility] Protein [Mass/Vol] 7.7 g/dL 6.4-8.2 [facility] Sodium [Moles/Vol] 140 mmol/L 136-145 [facility] WBC (Bld) [#/Vol] 11.5 10*3/uL 4.4-11.0 [facility] Blood band neutrophil count as percentage of total leukocytesOrdered By: Ed Bowman on 09-06-2023 Band form neutrophils/100 WBC (Bld) 3 % 0-5 [facility] Blood lymphocytes/100 leukoc ytesOrdered By: Ed Bowman on 09-06-2023 Lymphocytes/100 WBC (Bld) 12 % 19-41 [facility] Blood monocytes/100 leukocyt esOrdered By: Ed Bowman on 09-06-2023 Monocytes/100 WBC (Bld) 1 % 0-10 [facility] Blood platelet adequacy dete ction by light microscopyOrdered By: Ed Bowman on 09-06-2023 Platelets LM Ql (Bld) ADEQUATE ADEQ [facility] Blood segmented neutrophils/ 100 leukocytesOrdered By: Ed Bowman on 09-06-2023 Segmented neutrophils/100 WBC (Bld) 83 % 47-70 [facility] Determination of erythrocyte mean corpuscular volume (MCV)Ordered By: Ed Bowman on 09-06-2023 MCV (RBC) [Entitic vol] 90.9 fL 81-99 [facility] Erythrocyte distribution wid th ratioOrdered By: Ed Bowman on 09-06-2023 Erythrocyte distribution width (RBC) [Ratio] 14.2 % 11.6-14.6 [facility] Erythrocyte distribution wid th standard deviationOrdered By: Ed Bowman on 09-06-2023 Erythrocyte distribution width (RBC) [Entitic vol] 47.3 fL 35.1-43.9 [facility] Hematocrit Auto (Bld) [Volum e fraction]Or[facility]2023 Hematocrit (Bld) [Volume fraction] 47.9 % 37-47 [facility] Laboratory - Chemistry and C hemistry - challengeOrdered By: dE Bowman 09-06-2023 Albumin/Globulin [Mass ratio] 1.1 {ratio} 0.9-2.4 [facility] ALP [Catalytic activity/Vol] 106 U/L 45-117 [facility] ALT [Catalytic activity/Vol] 22 U/L 13-56 [facility] CO2 [Moles/Vol] 26.0 mmol/L 21.0-32.0 [facility] Globulin (S) [Mass/Vol] 3.7 g/dL 2.2-4.2 [facility] Urea nitrogen/Creatinine [Mass ratio] 31.0 mg/mg 10-20 [facility] Laboratory - Hematology and Cell countsOrdered By: Ed Bowman 09-06-2023 MCH (RBC) [Entitic mass] 29.0 pg 27.0-32.0 [facility] MCHC (RBC) [Mass/Vol] 31.9 g/dL 32-36 [facility] Myelocytes/100 WBC (Bld) 1 % 0-0 [facility] Platelet mean volume (Bld) [Entitic vol] 9.0 fL 6.2-12.0 [facility] Platelets (Bld) [#/Vol] 406 10*3/uL 150-450 [facility] No Panel InformationOrdered By: Ed Bowman on 09-06-2023 Estimated GFR (MDRD) Amer 53 mL/min >60 [facility] Comment on above: GFR Calc Estimated GFR (MDRD) Non-Af Amer 44 mL/min >60 [facility] Comment on above: Non- GFR Calc Vitamin D 25-Hydroxy 35.4 ng/mL [facility] Comment on above: Vitamin D 25(OH) Sta tus Range Deficiency <20 ng/mL (50nmol/L) Insufficiency 20 - 30 ng/mL (50 - 75 nmol/L) Sufficiency 30 - 100 ng/mL (75 - 250 nmol/L) Toxicity >100 ng/mL (>250 nmol/L) RBC Auto (Bld) [#/Vol]Ordere d By: Ed Bowman on 09-06-2023 RBC (Bld) [#/Vol] 5.27 10*6/uL 4.2-5.4 [facility] RBC morphologyOrdered By: Mihir Bowman on 09-06-2023 RBC morphology finding Nom (Bld) NORM C+C NORMAL NORM C&C [facility] Review by pathologistOrdered By: Ed Bowman on 09-06-2023 Pathologist review Froilan (Unsp spec) [Interp] Reviewed [facility] Comment on above: Previous reported re sult: November shana Edited by: RGOOD on 09/07/23:1319Neutrophilic leukocytosis with left shift.Clinical correlation necessary.Beto Green M.D. 09/07/23 AMENDED REPORT 09/07/23 1319 PATH REV previously reported as: November shana Serum or plasma calcium raine urement (mass/volume)Ordered By: Ed Bowman on 09-06-2023 Calcium [Mass/Vol] 9.3 mg/dL 8.5-10.1 [facility] Serum or plasma creatinine m easurement (mass/volume)Ordered By: Ed Bowman on 09-06-2023 Creatinine [Mass/Vol] 1.26 mg/dL 0.55-1.02 [facility] Comment on above: The validity of the calculated GFR & GFRAA in patients over 70 years has not been determined. Clinical correlation is essential. Serum or plasma thyroid stim ulating hormone (TSH) measurement (units/volume)Ordered By: Ed Bowman on 09-06-2023 TSH Qn 0.45 uIU/mL 0.358-3.74 [facility] Serum or plasma urea nitroge n measurement (mass/volume)Ordered By: Ed Bowman on 09-06-2023 Urea nitrogen [Mass/Vol] 39 mg/dL 7-18 [facility] Thin prep Papanicolaou smear with manual screeningOrdered By: Ed Bowman on 09-06-2023 Thin prep Papanicolaou smear with manual screening 4.0 g/dL 3.2-5.0 [facility] Thin prep Papanicolaou smear with manual screening 18 U/L 15-37 [facility] Thin prep Papanicolaou smear with manual screening 8 5-15 [facility] Total cell countOrdered By: Ed Bowman on 09-06-2023 Cells counted Molgen (Bld/Tiss) [#] 100 MANUAL DIFF [facility] Absolute lymphocyte countOrd ered By: Ed Bowman on 03-08-2023 Lymphocytes Auto (Unsp spec) [#/Vol] 2.55 10*3/uL 0.83-4.51 [facility] Basophil percentageOrdered B y: Ed Bowman on 03-08-2023 Basophils/100 WBC (Bld) 0.6 % 0-1 [facility] Bilirubin [Mass/Vol] 0.30 mg/dL 0.20-1.00 [facility] Comment on above: For patients on eltr ombopag therapy, use of Dimension Rayne TBIL is not recommended. Chloride [Moles/Vol] 107 mmol/L 98-107 [facility] Eosinophils/100 WBC (Bld) 1.0 % 0-5 [facility] Glucose [Mass/Vol] 123 mg/dL 74-106 [facility] Comment on above: Fasting Glucose resu lt from 100 to 125 mg/dL suggests IMPAIRED HOMEOSTASIS per A.D.A. criteria. Neutrophils (Bld) [#/Vol] 6.4 10*3/uL 2.0-7.7 [facility] Neutrophils/100 WBC (Bld) 62.7 % 47-70 [facility] Potassium [Moles/Vol] 4.7 mmol/L 3.5-5.1 [facility] Protein [Mass/Vol] 7.5 g/dL 6.4-8.2 [facility] Sodium [Moles/Vol] 141 mmol/L 136-145 [facility] WBC (Bld) [#/Vol] 10.2 10*3/uL 4.4-11.0 [facility] Blood erythrocytes count (nu mber/volume)Ordered By: Ed Bowman on 03-08-2023 RBC (Bld) [#/Vol] 4.85 10*6/uL 4.2-5.4 [facility] Blood hemoglobin measurement (mass/volume)Ordered By: Ed Bowman on 03-08-2023 Hemoglobin (Bld) [Mass/Vol] 14.6 g/dL 12.0-15.0 [facility] Blood lymphocytes/100 leukoc ytesOrdered By: Ed Bowman on 03-08-2023 Lymphocytes/100 WBC (Bld) 24.9 % 19-41 [facility] Blood monocytes/100 leukocyt esOrdered By: Ed Bowman on 03-08-2023 Monocytes/100 WBC (Bld) 9.6 % 0-10 [facility] Blood platelet mean volumeOr dered By: Ed Bowman on 03-08-2023 Platelet mean volume (Bld) [Entitic vol] 9.3 fL 6.2-12.0 [facility] Determination of erythrocyte mean corpuscular volume (MCV)Ordered By: Ed Bowman on 03-08-2023 MCV (RBC) [Entitic vol] 94.2 fL 81-99 [facility] Hematocrit Auto (Bld) [Volum e fraction]Ordered By: Ed Bowman on 03-08-2023 Hematocrit (Bld) [Volume fraction] 45.7 % 37-47 [facility] Laboratory - Chemistry and C hemistry - challengeOrdered By: Ed Bowman on 03-08-2023 ALP [Catalytic activity/Vol] 103 U/L 45-117 [facility] ALT [Catalytic activity/Vol] 25 U/L 13-56 [facility] CO2 [Moles/Vol] 29.0 mmol/L 21.0-32.0 [facility] Globulin (S) [Mass/Vol] 4.1 g/dL 2.2-4.2 [facility] Urea nitrogen/Creatinine [Mass ratio] 22.4 mg/mg 10-20 [facility] Laboratory - Hematology and Cell countsOrdered By: Ed Bowman on 03-08-2023 Erythrocyte distribution width (RBC) [Entitic vol] 48.7 fL 35.1-43.9 [facility] Erythrocyte distribution width (RBC) [Ratio] 14.0 % 11.6-14.6 [facility] Immature granulocytes/100 WBC (Bld) 1.200 % 0.0-0.9 [facility] Comment on above: IG% - Immature Granu locytes (promyelocytes, myelocytes and metamyelocytes) > 1% indicates that a LEFT SHIFT is Present. MCH (RBC) [Entitic mass] 30.1 pg 27.0-32.0 [facility] Nucleated RBC/100 WBC (Bld) [Ratio] 0 % 0-5 [facility] MCHC Auto (RBC) [Mass/Vol]Or dered By: Ed Bowman on 03-08-2023 MCHC (RBC) [Mass/Vol] 31.9 g/dL 32-36 [facility] No Panel InformationOrdered By: Ed Bowman on 03-08-2023 Estimated GFR (MDRD) Amer 64 mL/min >60 [facility] Comment on above: GFR Calc Estimated GFR (MDRD) Non-Af Amer 53 mL/min >60 [facility] Comment on above: Non- GFR Calc Thyroid Stimulating Hormone (TSH) 1.58 uIU/mL 0.358-3.74 [facility] Vitamin D 25-Hydroxy 40.6 ng/mL [facility] Comment on above: Vitamin D 25(OH) Sta tus Range Deficiency <20 ng/mL (50nmol/L) Insufficiency 20 - 30 ng/mL (50 - 75 nmol/L) Sufficiency 30 - 100 ng/mL (75 - 250 nmol/L) Toxicity >100 ng/mL (>250 nmol/L) Platelets bldOrdered By: Ed Bowman on 03-08-2023 Platelets (Bld) [#/Vol] 322 10*3/uL 150-450 [facility] Serum or plasma albumin raine urement (mass/volume)Ordered By: Ed Bowman on 03-08-2023 Albumin [Mass/Vol] 3.4 g/dL 3.2-5.0 [facility] Serum or plasma albumin/glob ulin mass ratioOrdered By: Ed Bowman on 03-08-2023 Albumin/Globulin [Mass ratio] 0.8 {ratio} 0.9-2.4 [facility] Serum or plasma calcium raine urement (mass/volume)Ordered By: Ed Bowman on 03-08-2023 Calcium [Mass/Vol] 9.4 mg/dL 8.5-10.1 [facility] Serum or plasma creatinine m easurement (mass/volume)Ordered By: Ed Bowman on 03-08-2023 Creatinine [Mass/Vol] 1.07 mg/dL 0.55-1.02 [facility] Comment on above: The validity of the calculated GFR & GFRAA in patients over 70 years has not been determined. Clinical correlation is essential. Serum or plasma urea nitroge n measurement (mass/volume)Ordered By: Ed Bowman on 03-08-2023 Urea nitrogen [Mass/Vol] 24 mg/dL 7-18 [facility] Thin prep Papanicolaou smear with manual screeningOrdered By: Ed Bowman on 03-08-2023 Thin prep Papanicolaou smear with manual screening 16 U/L 15-37 [facility] Thin prep Papanicolaou smear with manual screening 5 5-15 [facility] No Panel InformationOrdered By: Kale Wallace on 01-28-2023 Miscellaneous Test See comment [facility] Comment on above: TEST RESULTS LIMITSD rug Screen 13 w/Conf, Serum AMPHETAMINES, [place] Negative ng/mL Cutoff:50 BARBITURATES, [place] Negative ug/mL Cutoff:0.1 BENZODIAZEPINES, [place] Negative ng/mL Cutoff:20 COCAINE / METABOLITE, IA Negative ng/mL Cutoff:25 PHENCYCLIDINE, IA Negative ng/mL Cutoff:8 THC(MARIJUANA) METABOLITE, IA Negative ng/mL Cutoff:5 OPIATES, IA ++POSITIVE++ ng/mL Cutoff:5 OXYCODONES, IA Negative ng/mL Cutoff:5 Presumptive immunoassay result indicated need for further testing; definitive confirmation was negative. METHADONE, [place] Negative ng/mL Cutoff:25 FENTANYL, [place] Negative ng/mL Cutoff:1.0 PROPOXYPHENE, IA Negative ng/mL Cutoff:50 MEPERIDINE, IA Negative ng/mL Cutoff:100 TRAMADOL, [place] Negative ng/mL Cutoff:50 This test was developed and its performance characteristics determined by [facility]. It has not been cleared or approved by the Food and Drug Administration.OPIATES,MS,WB/SP RFX Opiate Confirmation Positive Codeine Negative ng/mL Morphine Negative ng/mL 6-Acetylmorphine Negative Hydrocodone 31.0 ng/mL Hydromorphone Negative ng/mL Dihydrocodeine 2.9 ng/mL Expected metabolism of opiate class drugs: Parent Drug Detected Metabolites Codeine: Major: Morphine Minor: Hydrocodone, Hydromorphone, Dihydrocodeine Morphine: Minor: Hydromorphone Hydrocodone: Hydromorphone, Dihydrocodeine Hydromorphone: None Dihydrocodeine: None Heroin: 6-Acetylmorphine Morphine Codeine, in small amounts in comparison to morphine, is often detected when heroin is the source drug. Confirmation threshold: 1.0 ng/mLOXYCODONES,MS,WB/SP RFX Oxycodones Confirmation Negative Oxycodone Negative ng/mL Oxymorphone Negative ng/mL Confirmation threshold: 1.0 ng/mL TESTING PERFORMED AT [facility]. ORIGINAL REPORT ON FILE IN LAB CONTAINS ADDITIONAL TEST SITE INFORMATION. COVID-19 virus antigen assay Ordered By: Dr. Bowman on 09-01-2022 SARS-CoV-2 (COVID-19) Ag IA.rapid Ql (Resp) Not detected Not Detect [facility] Comment on above: Normal Reference Ran ge: Not DetectedMethod:(RT-PCR) real-time reverse transcriptase PCRLuminex MIRELA Instrument*The Food and Drug Administration (FDA) has issued an Emergency Use Authorization (EAU) for the MIRELA SARS-CoV-2 Assay for the rapid detection of the virus that causes COVID-19. This test has been validated, but the FDAs independent review of this validation is pending.*Negative results do not preclude infection and should not be used as the sole basis for treatment or patient management. Optimum specimen types and timing for peak viral levels during infections caused by SARS-CoV-2 have not been determined. Collection of multiple specimens from the same patient may be necessary to detect the virus. The possibility of a false negative result should be considered if the patient has clinical presentation or has had recent exposure. No Panel InformationOrdered By: Dr. Bowman on 09-01-2022 Influenza Types A,B Direct FA (TEETEE) [facility] RSV Ag EIAOrdered By: Dr. Danis marion on 09-01-2022 RSV Ag Immune stain Ql (Tiss) [facility] Absolute lymphocyte countOrd ered By: Ed Bowman on 08-31-2022 Lymphocytes Auto (Unsp spec) [#/Vol] 3.62 10*3/uL 0.83-4.51 [facility] Basophil percentageOrdered B y: Ed Bowman on 08-31-2022 Basophils/100 WBC (Bld) 0.5 % 0-1 [facility] Bilirubin [Mass/Vol] 0.50 mg/dL 0.20-1.00 [facility] Comment on above: For patients on eltr ombopag therapy, use of Dimension Rayne TBIL is not recommended. Chloride [Moles/Vol] 105 mmol/L 98-107 [facility] Eosinophils/100 WBC (Bld) 0.5 % 0-5 [facility] Glucose [Mass/Vol] 51 mg/dL 74-106 [facility] Neutrophils (Bld) [#/Vol] 7.0 10*3/uL 2.0-7.7 [facility] Neutrophils/100 WBC (Bld) 58.4 % 47-70 [facility] Potassium [Moles/Vol] 3.5 mmol/L 3.5-5.1 [facility] Protein [Mass/Vol] 8.1 g/dL 6.4-8.2 [facility] Sodium [Moles/Vol] 143 mmol/L 136-145 [facility] WBC (Bld) [#/Vol] 11.9 10*3/uL 4.4-11.0 [facility] Blood erythrocytes count (nu mber/volume)Ordered By: Ed Bowman on 08-31-2022 RBC (Bld) [#/Vol] 5.34 10*6/uL 4.2-5.4 [facility] Blood hemoglobin measurement (mass/volume)Ordered By: Ed Bowman on 08-31-2022 Hemoglobin (Bld) [Mass/Vol] 16.2 g/dL 12.0-15.0 [facility] Blood lymphocytes/100 leukoc ytesOrdered By: Ed Bowman on 08-31-2022 Lymphocytes/100 WBC (Bld) 30.4 % 19-41 [facility] Blood monocytes/100 leukocyt esOrdered By: Ed Bowman on 08-31-2022 Monocytes/100 WBC (Bld) 9.3 % 0-10 [facility] Blood platelet mean volumeOr dered By: Ed Bowman on 08-31-2022 Platelet mean volume (Bld) [Entitic vol] 9.3 fL 6.2-12.0 [facility] Determination of erythrocyte mean corpuscular volume (MCV)Ordered By: Ed Bowman on 08-31-2022 MCV (RBC) [Entitic vol] 91.9 fL 81-99 [facility] Hematocrit Auto (Bld) [Volum e fraction]Ordered By: Ed Bowman on 08-31-2022 Hematocrit (Bld) [Volume fraction] 49.1 % 37-47 [facility] Laboratory - Chemistry and C hemistry - challengeOrdered By: Ed Bowman on 08-31-2022 ALP [Catalytic activity/Vol] 100 U/L 45-117 [facility] ALT [Catalytic activity/Vol] 26 U/L 13-56 [facility] CO2 [Moles/Vol] 30.0 mmol/L 21.0-32.0 [facility] Globulin (S) [Mass/Vol] 4.2 g/dL 2.2-4.2 [facility] Urea nitrogen/Creatinine [Mass ratio] 18.2 mg/mg 10-20 [facility] Laboratory - Hematology and Cell countsOrdered By: Ed Bowman on 08-31-2022 Erythrocyte distribution width (RBC) [Entitic vol] 46.0 fL 35.1-43.9 [facility] Erythrocyte distribution width (RBC) [Ratio] 13.6 % 11.6-14.6 [facility] Immature granulocytes/100 WBC (Bld) 0.900 % 0.0-0.9 [facility] Comment on above: IG% - Immature Granu locytes (promyelocytes, myelocytes and metamyelocytes) > 1% indicates that a LEFT SHIFT is Present. MCH (RBC) [Entitic mass] 30.3 pg 27.0-32.0 [facility] Nucleated RBC/100 WBC (Bld) [Ratio] 0 % 0-5 [facility] MCHC Auto (RBC) [Mass/Vol]Or dered By: Ed Bowman on 08-31-2022 MCHC (RBC) [Mass/Vol] 33.0 g/dL 32-36 [facility] No Panel InformationOrdered By: Ed Bowman on 08-31-2022 Estimated GFR (MDRD) Amer 51 mL/min >60 [facility] Comment on above: GFR Calc Estimated GFR (MDRD) Non-Af Amer 42 mL/min >60 [facility] Comment on above: Non- GFR Calc Thyroid Stimulating Hormone (TSH) 1.38 uIU/mL 0.358-3.74 [facility] Vitamin D 25-Hydroxy 29.8 ng/mL [facility] Comment on above: Vitamin D 25(OH) Sta tus Range Deficiency <20 ng/mL (50nmol/L) Insufficiency 20 - 30 ng/mL (50 - 75 nmol/L) Sufficiency 30 - 100 ng/mL (75 - 250 nmol/L) Toxicity >100 ng/mL (>250 nmol/L) Platelets bldOrdered By: Ed Bowman on 08-31-2022 Platelets (Bld) [#/Vol] 370 10*3/uL 150-450 [facility] Serum or plasma albumin raine urement (mass/volume)Ordered By: Ed Bowman on 08-31-2022 Albumin [Mass/Vol] 3.9 g/dL 3.2-5.0 [facility] Serum or plasma albumin/glob ulin mass ratioOrdered By: Ed Bowman on 08-31-2022 Albumin/Globulin [Mass ratio] 0.9 {ratio} 0.9-2.4 [facility] Serum or plasma calcium raine urement (mass/volume)Ordered By: Ed Bowman on 08-31-2022 Calcium [Mass/Vol] 9.7 mg/dL 8.5-10.1 [facility] Serum or plasma creatinine m easurement (mass/volume)Ordered By: Ed Bowman on 08-31-2022 Creatinine [Mass/Vol] 1.32 mg/dL 0.55-1.02 [facility] Comment on above: The validity of the calculated GFR & GFRAA in patients over 70 years has not been determined. Clinical correlation is essential. Serum or plasma urea nitroge n measurement (mass/volume)Ordered By: Ed Bowman on 08-31-2022 Urea nitrogen [Mass/Vol] 24 mg/dL 7-18 [facility] Thin prep Papanicolaou smear with manual screeningOrdered By: Ed Bowman on 08-31-2022 Thin prep Papanicolaou smear with manual screening 22 U/L 15-37 [facility] Thin prep Papanicolaou smear with manual screening 8 5-15 [facility] Absolute lymphocyte counton 03-02-2022 Lymphocytes Auto (Unsp spec) [#/Vol] 3.38 10*3/uL 0.83-4.51 [facility] Work Phone: Basophil percentageon 2021 Basophils/100 WBC (Bld) 0.4 % 0-1 [facility] Work Phone: Bilirubin [Mass/Vol] 0.20 mg/dL 0.20-1.00 [facility] Work Phone: Comment on above: For patients on eltr ombopag therapy, use of Dimension Rayne TBIL is not recommended. Chloride [Moles/Vol] 106 mmol/L 98-107 [facility] Work Phone: Eosinophils/100 WBC (Bld) 1.2 % 0-5 [facility] Work Phone: Glucose [Mass/Vol] 99 mg/dL 74-106 [facility] Work Phone: Neutrophils (Bld) [#/Vol] 6.4 10*3/uL 2.0-7.7 [facility] Work Phone: Neutrophils/100 WBC (Bld) 58.9 % 47-70 [facility] Work Phone: Potassium [Moles/Vol] 4.2 mmol/L 3.5-5.1 [facility] Work Phone: Protein [Mass/Vol] 7.3 g/dL 6.4-8.2 [facility] Work Phone: Sodium [Moles/Vol] 142 mmol/L 136-145 [facility] Work Phone: [phone] WBC (Bld) [#/Vol] 10.9 10*3/uL 4.4-11.0 [facility] Work Phone: Blood erythrocytes count (nu mber/volume)on 03-02-2022 RBC (Bld) [#/Vol] 4.84 10*6/uL 4.2-5.4 [facility] Work Phone: Blood hemoglobin measurement (mass/volume)on 03-02-2022 Hemoglobin (Bld) [Mass/Vol] 14.5 g/dL 12.0-15.0 [facility] Work Phone: Blood lymphocytes/100 leukoc yteson 03-02-2022 Lymphocytes/100 WBC (Bld) 31.1 % 19-41 [facility] Work Phone: Blood monocytes/100 leukocyt eson 03-02-2022 Monocytes/100 WBC (Bld) 7.9 % 0-10 [facility] Work Phone: Blood platelet mean volumeon 03-02-2022 Platelet mean volume (Bld) [Entitic vol] 9.6 fL 6.2-12.0 [facility] Work Phone: Determination of erythrocyte mean corpuscular volume (MCV)on 03-02-2022 MCV (RBC) [Entitic vol] 90.5 fL 81-99 [facility] Work Phone: Hematocrit Auto (Bld) [Volum e fraction]on 03-02-2022 Hematocrit (Bld) [Volume fraction] 43.8 % 37-47 [facility] Work Phone: Laboratory - Chemistry and C hemistry - challengeon 03-02-2022 ALP [Catalytic activity/Vol] 103 U/L 45-117 [facility] Work Phone: ALT [Catalytic activity/Vol] 22 U/L 13-56 [facility] Work Phone: CO2 [Moles/Vol] 30.0 mmol/L 21.0-32.0 [facility] Work Phone: Globulin (S) [Mass/Vol] 3.8 g/dL 2.2-4.2 [facility] Work Phone: Urea nitrogen/Creatinine [Mass ratio] 24.5 mg/mg 10-20 [facility] Work Phone: Laboratory - Hematology and Cell countson 03-02-2022 Erythrocyte distribution width (RBC) [Entitic vol] 45.1 fL 35.1-43.9 [facility] Work Phone: Erythrocyte distribution width (RBC) [Ratio] 13.7 % 11.6-14.6 [facility] Work Phone: Immature granulocytes/100 WBC (Bld) 0.500 % 0.0-0.9 [facility] Work Phone: Comment on above: IG% - Immature Granu locytes (promyelocytes, myelocytes and metamyelocytes) > 1% indicates that a LEFT SHIFT is Present. MCH (RBC) [Entitic mass] 30.0 pg 27.0-32.0 [facility] Work Phone: Nucleated RBC/100 WBC (Bld) [Ratio] 0 % 0-5 [facility] Work Phone: MCHC Auto (RBC) [Mass/Vol]on 03-02-2022 MCHC (RBC) [Mass/Vol] 33.1 g/dL 32-36 [facility] Work Phone: No Panel Informationon 03-02 Estimated GFR (MDRD) Amer 65 mL/min >60 [facility] Work Phone: Comment on above: GFR Calc Estimated GFR (MDRD) Non-Af Amer 54 mL/min >60 [facility] Work Phone: Comment on above: Non- GFR Calc Thyroid Stimulating Hormone (TSH) 1.20 uIU/mL 0.358-3.74 [facility] Work Phone: Vitamin D 25-Hydroxy 18.7 ng/mL [facility] Work Phone: Comment on above: Vitamin D 25(OH) Sta tus Range Deficiency <20 ng/mL (50nmol/L) Insufficiency 20 - 30 ng/mL (50 - 75 nmol/L) Sufficiency 30 - 100 ng/mL (75 - 250 nmol/L) Toxicity >100 ng/mL (>250 nmol/L) Platelets bldon 03-02-2022 Platelets (Bld) [#/Vol] 287 10*3/uL 150-450 [facility] Work Phone: Serum or plasma albumin raine urement (mass/volume)on 03-02-2022 Albumin [Mass/Vol] 3.5 g/dL 3.2-5.0 [facility] Work Phone: Serum or plasma albumin/glob ulin mass ratioon 03-02-2022 Albumin/Globulin [Mass ratio] 0.9 {ratio} 0.9-2.4 [facility] Work Phone: Serum or plasma calcium raine urement (mass/volume)on 03-02-2022 Calcium [Mass/Vol] 8.6 mg/dL 8.5-10.1 [facility] Work Phone: Serum or plasma creatinine m easurement (mass/volume)on 03-02-2022 Creatinine [Mass/Vol] 1.06 mg/dL 0.55-1.02 [facility] Work Phone: Comment on above: The validity of the calculated GFR & GFRAA in patients over 70 years has not been determined. Clinical correlation is essential. Serum or plasma urea nitroge n measurement (mass/volume)on 03-02-2022 Urea nitrogen [Mass/Vol] 26 mg/dL 7-18 [facility] Work Phone: Thin prep Papanicolaou smear with manual screeningon 03-02-2022 Thin prep Papanicolaou smear with manual screening 19 U/L 15-37 [facility] Work Phone: Thin prep Papanicolaou smear with manual screening 6 5-15 [facility] Work Phone: Absolute lymphocyte counton 11-12-2021 Lymphocytes Auto (Unsp spec) [#/Vol] 2.27 10*3/uL 0.83-4.51 [facility] Work Phone: Basophil percentageon 2021 Basophils/100 WBC (Bld) 0.5 % 0-1 [facility] Work Phone: Bilirubin [Mass/Vol] 0.40 mg/dL 0.20-1.00 [facility] Work Phone: Comment on above: For patients on eltr ombopag therapy, use of Dimension Rayne TBIL is not recommended. Chloride [Moles/Vol] 109 mmol/L 98-107 [facility] Work Phone: Eosinophils/100 WBC (Bld) 1.6 % 0-5 [facility] Work Phone: Glucose [Mass/Vol] 107 mg/dL 74-106 [facility] Work Phone: Comment on above: Fasting Glucose resu lt from 100 to 125 mg/dL suggests IMPAIRED HOMEOSTASIS per A.D.A. criteria. Neutrophils (Bld) [#/Vol] 6.9 10*3/uL 2.0-7.7 [facility] Work Phone: Neutrophils/100 WBC (Bld) 66.6 % 47-70 [facility] Work Phone: [phone] Potassium [Moles/Vol] 4.7 mmol/L 3.5-5.1 [facility] Work Phone: Protein [Mass/Vol] 7.7 g/dL 6.4-8.2 [facility] Work Phone: Sodium [Moles/Vol] 142 mmol/L 136-145 [facility] Work Phone: WBC (Bld) [#/Vol] 10.4 10*3/uL 4.4-11.0 [facility] Work Phone: Blood erythrocytes count (nu mber/volume)on 11-12-2021 RBC (Bld) [#/Vol] 5.07 10*6/uL 4.2-5.4 [facility] Work Phone: Blood hemoglobin measurement (mass/volume)on 11-12-2021 Hemoglobin (Bld) [Mass/Vol] 14.9 g/dL 12.0-15.0 [facility] Work Phone: Blood lymphocytes/100 leukoc yteson 11-12-2021 Lymphocytes/100 WBC (Bld) 21.8 % 19-41 [facility] Work Phone: Blood monocytes/100 leukocyt eson 11-12-2021 Monocytes/100 WBC (Bld) 8.5 % 0-10 [facility] Work Phone: Blood platelet mean volumeon 11-12-2021 Platelet mean volume (Bld) [Entitic vol] 9.7 fL 6.2-12.0 [facility] Work Phone: Determination of erythrocyte mean corpuscular volume (MCV)on 11-12-2021 MCV (RBC) [Entitic vol] 89.3 fL 81-99 [facility] Work Phone: Hematocrit Auto (Bld) [Volum e fraction]on 11-12-2021 Hematocrit (Bld) [Volume fraction] 45.3 % 37-47 [facility] Work Phone: Laboratory - Chemistry and C hemistry - challengeon 11-12-2021 ALP [Catalytic activity/Vol] 110 U/L 45-117 [facility] Work Phone: ALT [Catalytic activity/Vol] 26 U/L 13-56 [facility] Work Phone: CO2 [Moles/Vol] 27.0 mmol/L 21.0-32.0 [facility] Work Phone: Globulin (S) [Mass/Vol] 4.4 g/dL 2.2-4.2 [facility] Work Phone: Urea nitrogen/Creatinine [Mass ratio] 16.9 mg/mg 10-20 [facility] Work Phone: Laboratory - Hematology and Cell countson 11-12-2021 Erythrocyte distribution width (RBC) [Entitic vol] 45.0 fL 35.1-43.9 [facility] Work Phone: Erythrocyte distribution width (RBC) [Ratio] 13.8 % 11.6-14.6 [facility] Work Phone: Immature granulocytes/100 WBC (Bld) 1.000 % 0.0-0.9 [facility] Work Phone: Comment on above: IG% - Immature Granu locytes (promyelocytes, myelocytes and metamyelocytes) > 1% indicates that a LEFT SHIFT is Present. MCH (RBC) [Entitic mass] 29.4 pg 27.0-32.0 [facility] Work Phone: Nucleated RBC/100 WBC (Bld) [Ratio] 0 % 0-5 [facility] Work Phone: MCHC Auto (RBC) [Mass/Vol]on 11-12-2021 MCHC (RBC) [Mass/Vol] 32.9 g/dL 32-36 [facility] Work Phone: No Panel Informationon 11-12 Estimated GFR (MDRD) Amer 74 mL/min >60 [facility] Work Phone: Comment on above: GFR Calc Estimated GFR (MDRD) Non-Af Amer 61 mL/min >60 [facility] Work Phone: Comment on above: Non- GFR Calc Thyroid Stimulating Hormone (TSH) 1.05 uIU/mL 0.358-3.74 [facility] Work Phone: Vitamin D 25-Hydroxy 32.0 ng/mL [facility] Work Phone: Comment on above: Vitamin D 25(OH) Sta tus Range Deficiency <20 ng/mL (50nmol/L) Insufficiency 20 - 30 ng/mL (50 - 75 nmol/L) Sufficiency 30 - 100 ng/mL (75 - 250 nmol/L) Toxicity >100 ng/mL (>250 nmol/L) Platelets bldon 11-12-2021 Platelets (Bld) [#/Vol] 322 10*3/uL 150-450 [facility] Work Phone: Serum or plasma albumin raine urement (mass/volume)on 11-12-2021 Albumin [Mass/Vol] 3.3 g/dL 3.2-5.0 [facility] Work Phone: Serum or plasma albumin/glob ulin mass ratioon 11-12-2021 Albumin/Globulin [Mass ratio] 0.8 {ratio} 0.9-2.4 [facility] Work Phone: Serum or plasma calcium raine urement (mass/volume)on 11-12-2021 Calcium [Mass/Vol] 9.1 mg/dL 8.5-10.1 [facility] Work Phone: Serum or plasma creatinine m easurement (mass/volume)on 11-12-2021 Creatinine [Mass/Vol] 0.95 mg/dL 0.55-1.02 [facility] Work Phone: Comment on above: The validity of the calculated GFR & GFRAA in patients over 70 years has not been determined. Clinical correlation is essential. Serum or plasma urea nitroge n measurement (mass/volume)on 11-12-2021 Urea nitrogen [Mass/Vol] 16 mg/dL 7-18 [facility] Work Phone: Thin prep Papanicolaou smear with manual screeningon 11-12-2021 Thin prep Papanicolaou smear with manual screening 23 U/L 15-37 [facility] Work Phone: Thin prep Papanicolaou smear with manual screening 6 5-15 [facility] Work Phone: Laboratory - Microbiology an d Antimicrobial susceptibilityon 09-02-2021 SARS-CoV-2 (COVID-19) RNA BARAK+probe Ql (Unsp spec) Not detected Not Detect [facility] Work Phone: Comment on above: Normal Reference Ran ge: Not DetectedMethod:(RT-PCR) real-time reverse transcriptase PCRLuminex ClickMedix Instrument*The Food and Drug Administration (FDA) has issued an Emergency Use Authorization (EAU) for the ClickMedix SARS-CoV-2 Assay for the rapid detection of the virus that causes COVID-19. This test has been validated, but the FDAs independent review of this validation is pending.*Negative results do not preclude infection and should not be used as the sole basis for treatment or patient management. Optimum specimen types and timing for peak viral levels during infections caused by SARS-CoV-2 have not been determined. Collection of multiple specimens from the same patient may be necessary to detect the virus. The possibility of a false negative result should be considered if the patient has clinical presentation or has had recent exposure. No Panel Informationon 09-02 Influenza Types A,B Direct FA (TEETEE) [facility] Work Phone: Absolute lymphocyte counton 08-11-2021 Lymphocytes Auto (Unsp spec) [#/Vol] 3.13 10*3/uL 0.83-4.51 [facility] Work Phone: Basophil percentageon 2021 Basophils/100 WBC (Bld) 0.7 % 0-1 [facility] Work Phone: Bilirubin [Mass/Vol] 0.50 mg/dL 0.20-1.00 [facility] Work Phone: Comment on above: For patients on eltr ombopag therapy, use of Dimension Rayne TBIL is not recommended. Chloride [Moles/Vol] 109 mmol/L 98-107 [facility] Work Phone: Eosinophils/100 WBC (Bld) 1.2 % 0-5 [facility] Work Phone: Glucose [Mass/Vol] 105 mg/dL 74-106 [facility] Work Phone: Comment on above: Fasting Glucose resu lt from 100 to 125 mg/dL suggests IMPAIRED HOMEOSTASIS per A.D.A. criteria. Neutrophils (Bld) [#/Vol] 6.8 10*3/uL 2.0-7.7 [facility] Work Phone: Neutrophils/100 WBC (Bld) 60.6 % 47-70 [facility] Work Phone: Potassium [Moles/Vol] 4.4 mmol/L 3.5-5.1 [facility] Work Phone: Protein [Mass/Vol] 8.2 g/dL 6.4-8.2 [facility] Work Phone: Sodium [Moles/Vol] 140 mmol/L 136-145 [facility] Work Phone: WBC (Bld) [#/Vol] 11.3 10*3/uL 4.4-11.0 [facility] Work Phone: [phone] Blood erythrocytes count (nu mber/volume)on 08-11-2021 RBC (Bld) [#/Vol] 5.16 10*6/uL 4.2-5.4 [facility] Work Phone: Blood hemoglobin measurement (mass/volume)on 08-11-2021 Hemoglobin (Bld) [Mass/Vol] 15.0 g/dL 12.0-15.0 [facility] Work Phone: Blood lymphocytes/100 leukoc yteson 08-11-2021 Lymphocytes/100 WBC (Bld) 27.7 % 19-41 [facility] Work Phone: Blood monocytes/100 leukocyt eson 08-11-2021 Monocytes/100 WBC (Bld) 9.0 % 0-10 [facility] Work Phone: Blood platelet mean volumeon 08-11-2021 Platelet mean volume (Bld) [Entitic vol] 9.0 fL 6.2-12.0 [facility] Work Phone: Determination of erythrocyte mean corpuscular volume (MCV)on 08-11-2021 MCV (RBC) [Entitic vol] 90.5 fL 81-99 [facility] Work Phone: Hematocrit Auto (Bld) [Volum e fraction]on 08-11-2021 Hematocrit (Bld) [Volume fraction] 46.7 % 37-47 [facility] Work Phone: Laboratory - Chemistry and C hemistry - challengeon 08-11-2021 ALP [Catalytic activity/Vol] 113 U/L 45-117 [facility] Work Phone: ALT [Catalytic activity/Vol] 26 U/L 13-56 [facility] Work Phone: CO2 [Moles/Vol] 28.0 mmol/L 21.0-32.0 [facility] Work Phone: Globulin (S) [Mass/Vol] 4.6 g/dL 2.2-4.2 [facility] Work Phone: Urea nitrogen/Creatinine [Mass ratio] 17.9 mg/mg 10-20 [facility] Work Phone: Laboratory - Hematology and Cell countson 08-11-2021 Erythrocyte distribution width (RBC) [Entitic vol] 45.3 fL 35.1-43.9 [facility] Work Phone: Erythrocyte distribution width (RBC) [Ratio] 13.5 % 11.6-14.6 [facility] Work Phone: Immature granulocytes/100 WBC (Bld) 0.800 % 0.0-0.9 [facility] Work Phone: Comment on above: IG% - Immature Granu locytes (promyelocytes, myelocytes and metamyelocytes) > 1% indicates that a LEFT SHIFT is Present. MCH (RBC) [Entitic mass] 29.1 pg 27.0-32.0 [facility] Work Phone: Nucleated RBC/100 WBC (Bld) [Ratio] 0 % 0-5 [facility] Work Phone: MCHC Auto (RBC) [Mass/Vol]on 08-11-2021 MCHC (RBC) [Mass/Vol] 32.1 g/dL 32-36 [facility] Work Phone: No Panel Informationon 08-11 Estimated GFR (MDRD) Amer 65 mL/min >60 [facility] Work Phone: Comment on above: GFR Calc Estimated GFR (MDRD) Non-Af Amer 54 mL/min >60 [facility] Work Phone: Comment on above: Non- GFR Calc Thyroid Stimulating Hormone (TSH) 2.21 uIU/mL 0.358-3.74 [facility] Work Phone: Vitamin D 25-Hydroxy 29.6 ng/mL [facility] Work Phone: Comment on above: Vitamin D 25(OH) Sta tus Range Deficiency <20 ng/mL (50nmol/L) Insufficiency 20 - 30 ng/mL (50 - 75 nmol/L) Sufficiency 30 - 100 ng/mL (75 - 250 nmol/L) Toxicity >100 ng/mL (>250 nmol/L) Platelets bldon 08-11-2021 Platelets (Bld) [#/Vol] 295 10*3/uL 150-450 [facility] Work Phone: Serum or plasma albumin raine urement (mass/volume)on 08-11-2021 Albumin [Mass/Vol] 3.6 g/dL 3.2-5.0 [facility] Work Phone: Serum or plasma albumin/glob ulin mass ratioon 08-11-2021 Albumin/Globulin [Mass ratio] 0.8 {ratio} 0.9-2.4 [facility] Work Phone: Serum or plasma calcium raine urement (mass/volume)on 08-11-2021 Calcium [Mass/Vol] 9.0 mg/dL 8.5-10.1 [facility] Work Phone: Serum or plasma creatinine m easurement (mass/volume)on 08-11-2021 Creatinine [Mass/Vol] 1.06 mg/dL 0.55-1.02 [facility] Work Phone: Comment on above: The validity of the calculated GFR & GFRAA in patients over 70 years has not been determined. Clinical correlation is essential. Serum or plasma urea nitroge n measurement (mass/volume)on 08-11-2021 Urea nitrogen [Mass/Vol] 19 mg/dL 7-18 [facility] Work Phone: Thin prep Papanicolaou smear with manual screeningon 08-11-2021 Thin prep Papanicolaou smear with manual screening 24 U/L 15-37 [facility] Work Phone: Thin prep Papanicolaou smear with manual screening 3 5-15 [facility] Work Phone: CNOVon 02-21-2021 CNOV Office Visit (UCWSTR ) BARBARA GLASS ([id number]) 1950 F Date Time Provider Department 02/21/21 11:00 AM PETE MELVIN [facility] During your visit today, we recorded the following information about you: Temperature Pulse Respiration Blood pressure 98.7 degrees 86/minute 16/minute 128/80 Weight 89.8 kg Pete Melvin APRN.PROTECTIVE SIGNAL OPERATOR 02/21/2021 11:45 AM Signed Subjective HPI Nontoxic appearing female presents urgent care chief complaint left second digit laceration. Duration of symptoms greater than 3 days. 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 MEDICATIONS HYDROcodone-Acetaminop hen (NORCO) 7.5-325 mg per tablet Take 1 tablet by mouth three times daily as needed. buPROPion SR (ZYBAN SR; WELLBUTRIN SR) 150 mg 12 hr tablet Take 150 mg by mouth twice daily. gabapentin (NEURONTIN) 400 mg capsule Take 1 capsule by mouth once daily. xsbbyssvdiy-D9-Qehghgy ia serr (OSTEO BI-FLEX, 5-LOXIN,) 1,500-400-100 mg-unit-mg tab Take 1 tablet by mouth once daily. LIDOCAINE (PF) 100 MG/ML (10 %) IV Not sure of dose, IV lidocaine infusion once monthly FAMILY HISTORY Problem Relation Age of Onset - Heart Mother [place] - Cancer Father Lung - Heart Sister [place], stents Social History Tobacco Use - Smoking [...] so woun (more content not included)... Normal [facility] 01-03-2021 Anion gap [Moles/Vol] 8 mmol/L Normal 5-16 [facility] Comment on above: Order Comment: Galina s: M Performed By: #### L 500.44480, L500.13103, L500.21219 #### [facility] [address] [place] [address] Calcium [Mass/Vol] 9.5 mg/dL Normal 8.5-10.5 [facility] Comment on above: Order Comment: Campu s: M Result Comment: NOTE NEW NORMAL RANGE DUE TO REAGENT CHANGE Performed By: #### L 500.07867, L500.40349, L500.31163 #### [facility] [place] [id number] Chloride [Moles/Vol] 105 mmol/L Normal 98-107 [facility] Comment on above: Order Comment: Campu s: M Performed By: #### L 500.77001, L500.86952, L500.48834 #### [facility] [address] [place], [place] [address] CO2 [Moles/Vol] 29.0 mmol/L Normal 21-32 [facility] Comment on above: Order Comment: Campu s: M Performed By: #### L 500.59021, L500.27741, L500.48583 #### [facility] [place] [address] Creatinine [Mass/Vol] 1.33 mg/dL High 0.510-0.950 [facility] Comment on above: Order Comment: Campu s: M Result Comment: Clara ents receiving either N-Acetylcysteine (NAC) or Metamizole prior to venipuncture, may have falsely depressed results. Performed By: #### L 500.49496, L500.55389, L500.10246 #### [facility] [address] [place], [place] [id number] Glucose [Mass/Vol] 115 mg/dL High 70-100 [facility] Comment on above: Order Comment: Campu s: M Result Comment: 70-1 00- Normal Fasting; 100-125 Impaired Fasting; greater than 126 on more than one result- Diabetes. ADA guidelines. Results may be falsely elevated after the administration of Sulfapyridine. Results may be falsely depressed after the administration of Sulfasalazine. Performed By: #### L 500.03168, L500.31580, L500.62303 #### [facility] [address] [place], [place] [id number] Potassium [Moles/Vol] 4.3 mmol/L Normal 3.5-5.1 [facility] Comment on above: Order Comment: Campu s: M Result Comment: Slig ht Hemolysis, Result may be affected. Performed By: #### L 500.55889, L500.20363, L500.50322 #### [facility] [address] [place] [address] Sodium [Moles/Vol] 142 mmol/L Normal 136-145 [facility] Comment on above: Order Comment: Campu s: M Performed By: #### L 500.78355, L500.27905, L500.76468 #### [facility] [address] [place] [address] Urea nitrogen [Mass/Vol] 21 mg/dL Normal 7-26 [facility] Comment on above: Order Comment: Campu s: M Performed By: #### L 500.35516, L500.57448, L500.67804 #### [facility] [address] [place] [address] Urea nitrogen/Creatinine [Mass ratio] 16 mg/mg Normal 15-24 [facility] Comment on above: Order Comment: Campu s: M Performed By: #### L 500.20971, L500.53994, L500.39279 #### [facility] [address] [place], [place] [address] CBC W/DIFFon 01-03-2021 BASO ABS 0.10 K/CU MM Normal 0-0.2 [facility] Comment on above: Order Comment: Campu s: M Performed By: #### L 200.21359 #### [facility] [address] [place] [address] Basophils/100 WBC (Bld) 0.4 % Normal 0-2 M [facility] Comment on above: Order Comment: Campu s: M Performed By: #### L 200.07520 #### [facility] [address] [place] [address] EOS ABS 0.00 K/CU MM Normal 0-0.5 [facility] Comment on above: Order Comment: Campu s: M Performed By: #### L 200.16904 #### [facility] [address] [place] [address] Eosinophils/100 WBC (Bld) 0.1 % Normal 0-5 [facility] Comment on above: Order Comment: Campu s: M Performed By: #### L 200.98057 #### [facility] [address] [place] [address] Erythrocyte distribution width (RBC) [Ratio] 13.7 % Normal 11-14.5 [facility] Comment on above: Order Comment: Campu s: M Performed By: #### L 200.54754 #### [facility] [address] [place] [address] Hematocrit (Bld) [Volume fraction] 44.2 % Normal 35.0-47.0 [facility] Comment on above: Order Comment: Campu s: M Performed By: #### L 200.07898 #### [facility] [address] [place] [address] Hemoglobin (Bld) [Mass/Vol] 14.9 g/dL Normal 11.5-15.5 [facility] Comment on above: Order Comment: Campu s: M Performed By: #### L 200.13996 #### [facility] [address] [place] [address] IMMATR GRAN ABS 0.10 K/CU MM Normal Less than 2 [facility] Comment on above: Order Comment: Campu s: M Performed By: #### L 200.50927 #### [facility] [address] [place] [address] IMMATURE GRAN % 0.8 % Normal Less than 2 [facility] Comment on above: Order Comment: Campu s: M Performed By: #### L 200.51651 #### [facility] [address] [place] [address] LYMPH ABS 1.90 K/CU MM Normal 0.9-4.4 [facility] Comment on above: Order Comment: Campu s: M Performed By: #### L .23337 #### [facility] [address] [place] [address] Lymphocytes/100 WBC (Bld) 14.4 % Low 20-40 [facility] Comment on above: Order Comment: Campu s: M Performed By: #### L 200.12638 #### [facility] [address] [place] [address] MCHC (RBC) [Mass/Vol] 33.7 g/dL Normal 32.0-36.0 [facility] Comment on above: Order Comment: Campu s: M Performed By: #### L 200.44343 #### [facility] [address] [place] [address] MCV (RBC) [Entitic vol] 89.1 fL Normal 80.0-99.0 [facility] Comment on above: Order Comment: Campu s: M Performed By: #### L 200.63662 #### [facility] [address] [place] [address] MONO ABS 1.00 K/CU MM Normal 0.1-1.1 [facility] Comment on above: Order Comment: Campu s: M Performed By: #### L 200.79337 #### [facility] [address] [place] [address] Monocytes/100 WBC (Bld) 7.5 % Normal 2-10 M [facility] Comment on above: Order Comment: Campu s: M Performed By: #### L 200.16517 #### [facility] [address] [place] [address] NEUTROPHIL ABS 10.40 K/CU MM High 2.0-8.3 [facility] Comment on above: Order Comment: Campu s: M Performed By: #### L 200.82396 #### [facility] [address] [place] [address] Neutrophils/100 WBC (Bld) 76.8 % High 45-75 [facility] Comment on above: Order Comment: Campu s: M Performed By: #### L 200.75345 #### [facility] [address] [place] [address] Nucleated RBC/100 WBC (Bld) [Ratio] 0.0 % Normal Less than 1 [facility] Comment on above: Order Comment: Campu s: M Performed By: #### L 200.81459 #### [facility] [address] [place] [address] Platelet mean volume (Bld) [Entitic vol] 9.1 fL Low 9.4-12.4 [facility] Comment on above: Order Comment: Campu s: M Performed By: #### L 200.91730 #### [facility] [address] [place] [address] PLT 296 K/CU MM Normal 150-450 [facility] Comment on above: Order Comment: Campu s: M Performed By: #### L 200.68855 #### [facility] [address] [place] [address] RBC 4.96 M/CU MM Normal 3.90-5.30 [facility] Comment on above: Order Comment: Augustu s: M Performed By: #### L 200.04906 #### [facility] [address] [place] [address] WBC 13.5 K/CUMM High 4.5-11.0 [facility] Comment on above: Order Comment: Campu s: M Performed By: #### L 200.33332 #### [facility] [address] [place] [address] CT HEAD/BRAIN W/O CONon 06-2 CT HEAD/BRAIN W/O CON CT HEAD/BRAIN W/O CON Ordering Physician: Melvin Herbetr DO 01/03/2021 1:[address] HEAD/BRAIN WITHOUT [...] or MRI would be suggested. Dictated by Campaign Assistant: Amie Chaudhry DO I, Quan Celis MD FACR, have supervised the procedure and/or image review, and agree with the above interpretation and report. ---- Electronic Signature on File ---- Signed By: Quan Celis MD FACR [email or web address] Dictated: 01/03/2021 2:23 PM Signed: 01/03/2021 2:36 PM Reported By: QUAN CELIS M.D. Signed By: QUAN CELIS M.D. [facility] EKGon 01-03-2021 Electrocardiogram Procedure Date and Time: 01/03/21 [...] MENDIOLA M.D.FACC [employer] DDandT: 01/03/21 1301 TDandT: [facility] PATIENT NAME: JESSICA GLASS [facility] [address] MEDICAL REC #: [id number] [place] [address] ADMIT DATE: DISCHARGE DATE: ATTENDING PHY: Nicholas Catherine,Emergency Physi ELECTROCARDIOGRAM REPORT CLB cc: [facility] PATIENT NAME: JESSICA GLASS [facility] [address] MEDICAL REC #: [id number] [place] [address] ADMIT DATE: DISCHARGE DATE: ATTENDING PHY: Nicholas Catherine,Emergency Physi ELECTROCARDIOGRAM REPORT Normal [facility] Jeff 01-03-2021 EMERGENCY PHYSICIAN REPORT This is a preliminary report only, as the practitioner review and authentication has not occurred. Normal [facility] ER PHYSICIAN ASSESSMENT RECORDS : FlexChartData Event Time: 01/03/2021 14:35 Status: Signed [facility] Jessica Glass [[id number]] Attending Physician 70 / F / 1950 Chart (V2b) Chart created at 01/03/2021 14:27 by Melvin Herbert Chart closed at 01/03/2021 17:08 Entry in Emergency Department at 01/03/2021 12:42, departure at 01/03/2021 17:16 Patient Name: Jessica Glass Record Number: [id number] Date: 01/03/2021 14:27 Entered Department at: 01/03/2021 12:42 Patient Seen at: 01/03/2021 13:01 Historian: Patient PCP: VANESSA Chief Complaint:EMS STATES CALLED FOR UNRESPONSIVE PT. [...] weak and lightheaded during this infusion and [facility] PATIENT NAME: JESSICA GLASS [address] [facility] [address] MEDICAL REC #: [id number] [place] [address] EMERGENCY DEPARTMENT REPORT EMERGENCY DEPARTMENT PHYSICIAN ultimately [...] Normal Skin: No Petechiae, Warm and Dry [facility] PATIENT NAME: JESSICA GLASS [address] [facility] [address] MEDICAL REC #: [id number] [place] [address] EMERGENCY DEPARTMENT REPORT EMERGENCY DEPARTMENT PHYSICIAN HUBERT W/DIFF, information as of 01/03/2021, 1:27 pm [...] information as of 01/03/2021, 1:01 pm 142 --------+--------+---- ----andlt; 115* Anion Gap = 8 4.3 BUN/CREA: [...] SGPT (ALT): 17 U/L; TP: 6.8 Gm/Dl [id number], information as of 01/03/2021, 1:01 pm [id number]: Neg Cardiogram: Interpreted by me. Interpretation: Normal sinus rhythm, rate of 66, left axis deviation, delayed R wave progression, no acute ST elevation, QTc 454. No evidence of WPW or Brugada. Comparison: No old Cardiogram available for comparison Monitor / Rhythm Strip: NSR Imaging Study Obtained: CT (HEAD/BRAIN) WO CON (more content not included)... [facility] IF AMER 47 Normal [facility] Comment on above: Order Comment: Campu s: M Performed By: #### L 500.48139, L500.41631, L500.85632 #### [facility] [address] [place] [address] IF non-AFR AMER 39 Normal [facility] Comment on above: Order Comment: Campu s: M Performed By: #### L 500.84739, L500.16650, L500.73497 #### [facility] [address] [place], [place] [address] LIVERon 01-03-2021 Albumin [Mass/Vol] 3.6 g/dL Normal 3.2-5.0 [facility] Comment on above: Order Comment: Campu s: M Performed By: #### L 500.30542, L500.06638, L500.27244 #### [facility] [address] [place] [address] Albumin/Globulin [Mass ratio] 1.1 {ratio} Normal 0.8-2.0 [facility] Comment on above: Order Comment: Campu s: M Performed By: #### L 500.33396, L500.20020, L500.22508 #### [facility] [address] [place], [place] [address] ALK PHOS 102 U/L Normal 45-117 [facility] Comment on above: Order Comment: Campu s: M Performed By: #### L 500.32648, L500.82136, L500.17424 #### [facility] [address] [place] [address] ALT [Catalytic activity/Vol] 17 U/L Normal 13-61 [facility] Comment on above: Order Comment: Campu s: M Result Comment: RESU LTS MAY BE FALSELY DEPRESSED AFTER THE ADMINISTRATION OF SULFASALAZINE AND/OR SULFAPYRIDINE. Performed By: #### L 500.88166, L500.32364, L500.00772 #### [facility] [address] [place] [address] AST [Catalytic activity/Vol] 24 U/L Normal 8-34 [facility] Comment on above: Order Comment: Campu s: M Result Comment: RESU LTS MAY BE FALSELY DEPRESSED AFTER THE ADMINISTRATION OF SULFASALAZINE AND/OR SULFAPYRIDINE. Performed By: #### L 500.81960, L500.83548, L500.36627 #### [facility] [facility] [address] [place] [address] BILI DIRECT 0.1 MG/DL Normal 0.00-0.36 [facility] Comment on above: Order Comment: Campu s: M Result Comment: NOTE NEW NORMAL RANGE DUE TO REAGENT CHANGE Performed By: #### L 500.72368, [id number], L500.10649 #### [facility] [address] [place] [address] BILI TOTAL 0.40 MG/DL Normal 0.2-1.0 [facility] Comment on above: Order Comment: Campu s: M Performed By: #### L 500.66106, L500.64425, L500.82499 #### [facility] [address] [place] [address] Globulin (S) [Mass/Vol] 3.2 g/dL Normal 2.2-4.2 [facility] Comment on above: Order Comment: Campu s: M Performed By: #### L 500.05749, L500.66825, L500.38931 #### [facility] [address] [place] [address] Protein [Mass/Vol] 6.8 g/dL Normal 6.0-8.5 [facility] Comment on above: Order Comment: Campu s: M Performed By: #### L 500.17340, L500.21934, L500.14926 #### [facility] [address] [place] [id number] 01-03-2021 SARS-CoV-2 (COVID-19) RNA BARAK+probe Ql (Unsp spec) Negative Invalid Interpretation Code Negative [facility] Comment on above: Order Comment: Galina bridges: Ganesh Result Comment: RESU LTS CALLED TO AND [...] performed by PCR. Performed By: #### L [id number] #### [facility] [address] [place] [address] TROPONIN Ion 01-03-2021 Troponin I.cardiac [Mass/Vol] 2.5 ng/mL Normal 0-34 [facility] Comment on above: Order Comment: Galina bridges: Ganesh Result Comment: NOTE NEW NORMAL RANGE DUE TO REAGENT CHANGE This assay uses different antibodies than our current assay, and assays, even by the same successfactors consultant may recognize different regions of the antibody and cannot be used interchangeably. Expect results of this assay to run higher than the previous assay. Performed By: #### L 550.79510 #### [facility] [address] [place] [address] Vital Signs Date Time Vital Sign Value Performing Clinician Nadia conroy 12-05-2024 09:37-0400 Body temperature 97.4 [degF] Dr. Ed Bowman MD Work Phone: [facility] 12-05-2024 09:37-0400 Diastolic blood pressure 96 mm[Hg] Dr. Ed Bowman MD Work Phone: [facility] 12-05-2024 09:37-0400 Heart rate 88 /min Dr. Ed Bowman MD Work Phone: [facility] 12-05-2024 09:37-0400 Respiratory rate 16 /min Dr. Ed Bowman MD Work Phone: [facility] 12-05-2024 09:37-0400 SaO2% (BldA) [Mass fraction] 95 % Dr. Ed Bowman MD Work Phone: [facility] 12-05-2024 09:37-0400 Systolic blood pressure 166 mm[Hg] Dr. Ed Bowman MD Work Phone: 7(797)389-847324 [place] [address] 12-05-2024 08:32-0400 Body height 165.[address] Ed Bowman MD Work Phone: 3(991)533-294024 [place] [address] 12-05-2024 08:32-0400 Body mass index (BMI) [Ratio] 33.4 kg/m2 Dr. Ed Bowman MD Work Phone: 4(237)951-567124 [place] [address] 12-05-2024 08:32-0400 Body weight 91.[address] Ed Bowman MD Work Phone: 1(409)950-516224 [place] [address] 11-26-2024 16:23-0400 Body temperature 97.7 [degF] Dr. Ed Bowman MD Work Phone: 1(568)670-018324 [place] [address] 11-26-2024 16:23-0400 Diastolic blood pressure 91 mm[Hg] Dr. Ed Bowman MD Work Phone: [facility] 11-26-2024 16:23-0400 Heart rate 89 /min Dr. Ed Bowman MD Work Phone: [facility] 11-26-2024 16:23-0400 Respiratory rate 16 /min Dr. Ed Bowman MD Work Phone: [facility] 11-26-2024 16:23-0400 SaO2% (BldA) [Mass fraction] 95 % Dr. Ed Bowman MD Work Phone: [facility] 11-26-2024 16:23-0400 Systolic blood pressure 132 mm[Hg] Dr. Ed Bowman MD Work Phone: [facility] 11-26-2024 14:14-0400 Body height 165.[address] Ed Bowman MD Work Phone: 7(891)530-866524 [place] [address] 11-20-2024 14:42-0400 Body mass index (BMI) [Ratio] 35.6 kg/m2 Dr. Ed Bowman MD Work Phone: 6(524)176-812124 [place] [address] 11-20-2024 14:42-0400 Body temperature 98.3 [degF] Dr. Ed Bowman MD Work Phone: 9(131)575-890124 [place] [address] 11-20-2024 14:42-0400 Body weight 91.[address] Ed Bowman MD Work Phone: 8(809)101-421324 [place] [address] 11-20-2024 14:42-0400 Diastolic blood pressure 88 mm[Hg] Dr. Ed Bowman MD Work Phone: 7(449)132-743924 [place] [address] 11-20-2024 14:42-0400 Heart rate 93 /min Dr. Ed Bowman MD Work Phone: 6(017)763-449124 [place] [address] 11-20-2024 14:42-0400 Respiratory rate 16 /min Dr. Ed Bowman MD Work Phone: 7(593)607-980424 [place] [address] 11-20-2024 14:42-0400 SaO2% (BldA) [Mass fraction] 93 % Dr. Ed Bowman MD Work Phone: 9(808)309-918824 [place] [address] 11-20-2024 14:42-0400 Systolic blood pressure 147 mm[Hg] Dr. Ed Bowman MD Work Phone: 5(846)824-743391 [address] 11-05-2024 15:21-0400 Diastolic blood pressure 88 mm[Hg] Dr. Ed Bowman MD Work Phone: 5(944)619-705424 [place] [address] 11-05-2024 15:21-0400 Heart rate 80 /min Dr. Ed Bowman MD Work Phone: 4(357)059-392124 [place] [address] 11-05-2024 15:21-0400 Respiratory rate 18 /min Dr. Ed Bowman MD Work Phone: 9(043)523-373824 [place] [address] 11-05-2024 15:21-0400 SaO2% (BldA) [Mass fraction] 95 % Dr. Ed Bowman MD Work Phone: 9(740)053-593424 [place] [address] 11-05-2024 15:21-0400 Systolic blood pressure 145 mm[Hg] Dr. Ed Bowman MD Work Phone: 9(998)370-491924 [place] [address] 11-05-2024 13:22-0400 Body height 159.[address] Ed Bowman MD Work Phone: 8(809)183-751624 [place] [address] 11-05-2024 13:22-0400 Body mass index (BMI) [Ratio] 34 kg/m2 Dr. Ed Bowman MD Work Phone: 8(572)441-696924 [place] [address] 11-05-2024 13:22-0400 Body temperature 97.9 [degF] Dr. Ed Bowman MD Work Phone: 8(094)027-885724 [place] [address] 11-05-2024 13:22-0400 Body weight [address] Ed Bowman MD Work Phone: 3(041)667-953824 [place] [address] 09-25-2024 13:21-0400 Body mass index (BMI) [Ratio] 33.9 kg/m2 Dr. Ed Bowman MD Work Phone: 5(287)189-145124 [place] [address] 09-25-2024 13:21-0400 Body temperature 98.1 [degF] Dr. Ed Bowman MD Work Phone: 6(598)629-714924 [place] [address] 09-25-2024 13:21-0400 Body weight 86.[address] Ed Bowman MD Work Phone: 7(368)751-882924 [place] [address] 09-25-2024 13:21-0400 Diastolic blood pressure 94 mm[Hg] Dr. Ed Bowman MD Work Phone: 3(204)837-696024 [place] [address] 09-25-2024 13:21-0400 Heart rate 92 /min Dr. Ed Bowman MD Work Phone: 5(562)451-531724 [place] [address] 09-25-2024 13:21-0400 Respiratory rate 18 /min Dr. Ed Bowman MD Work Phone: 1(116)989-383624 [place] [address] 09-25-2024 13:21-0400 SaO2% (BldA) [Mass fraction] 102 % Dr. Ed Bowman MD Work Phone: 5(264)051-529624 [place] [address] 09-25-2024 13:21-0400 Systolic blood pressure 143 mm[Hg] Dr. Ed Bowman MD Work Phone: 6(150)794-178324 [place] [address] 09-16-2024 13:22-0500 Body temperature 97.6 [degF] Dr. Ed Bowman MD Work Phone: 2(215)597-434024 [place] [address] 09-16-2024 13:22-0500 Diastolic blood pressure 90 mm[Hg] Dr. Ed Bowman MD Work Phone: 4(451)166-934324 [place] [address] 09-16-2024 13:22-0500 Heart rate 85 /min Dr. Ed Bowman MD Work Phone: 5(972)305-298624 [place] [address] 09-16-2024 13:22-0500 Respiratory rate 16 /min Dr. Ed Bowman MD Work Phone: 2(750)429-078424 [place] [address] 09-16-2024 13:22-0500 SaO2% (BldA) [Mass fraction] 96 % Dr. Ed Bowman MD Work Phone: 6(239)393-068324 [place] [address] 09-16-2024 13:22-0500 Systolic blood pressure 138 mm[Hg] Dr. Ed Bowman MD Work Phone: 8(160)471-584824 [place] [address] 09-16-2024 11:53-0500 Body mass index (BMI) [Ratio] 34.7 kg/m2 Dr. Ed Bowman MD Work Phone: 5(182)831-804724 [place] [address] 09-16-2024 11:53-0500 Body weight 89.[address] Ed Bowman MD Work Phone: 7(274)719-237124 [place] [address] 09-16-2024 11:50-0500 Body height 160.[address] Ed Bowman MD Work Phone: 2(768)400-935624 [place] [address] 07-18-2024 13:41-0500 Body temperature 97.8 [degF] Dr. Ed Bowman MD Work Phone: 3(506)896-160524 [place] [address] 07-18-2024 13:41-0500 Body weight 87.[address] Ed Bowman MD Work Phone: 0(009)288-273724 [place] [address] 07-18-2024 13:41-0500 Diastolic blood pressure 89 mm[Hg] Dr. Ed Bowman MD Work Phone: 0(017)472-242424 [place] [address] 07-18-2024 13:41-0500 Heart rate 88 /min Dr. Ed Bowman MD Work Phone: 4(848)788-276624 [place] [address] 07-18-2024 13:41-0500 Respiratory rate 16 /min Dr. Ed Bowman MD Work Phone: 3(733)019-081124 [place] [address] 07-18-2024 13:41-0500 SaO2% (BldA) [Mass fraction] 96 % Dr. Ed Bowman MD Work Phone: 2(566)814-403424 [place] [address] 07-18-2024 13:41-0500 Systolic blood pressure 141 mm[Hg] Dr. Ed Bowman MD Work Phone: 5(607)940-185124 [place] [address] 06-05-2024 15:02-0500 Body mass index (BMI) [Ratio] 34.2 kg/m2 Dr. Ed Bowman MD Work Phone: 7(462)101-719224 [place] [address] 06-05-2024 15:02-0500 Body temperature 98.3 [degF] Dr. Ed Bowman MD Work Phone: 3(288)033-913024 [place] [address] 06-05-2024 15:02-0500 Body weight 87.[address] Ed Bowman MD Work Phone: 5(828)881-512524 [place] [address] 06-05-2024 15:02-0500 Diastolic blood pressure 92 mm[Hg] Dr. Ed Bowman MD Work Phone: 2(274)838-849824 [place] [address] 06-05-2024 15:02-0500 Heart rate 86 /min Dr. Ed Bowman MD Work Phone: 4(759)905-817124 [place] [address] 06-05-2024 15:02-0500 Respiratory rate 18 /min Dr. Ed Bowman MD Work Phone: 6(979)967-766324 [place] [address] 06-05-2024 15:02-0500 SaO2% (BldA) [Mass fraction] 99 % Dr. Ed Bowman MD Work Phone: [facility] 06-05-2024 15:02-0500 Systolic blood pressure 145 mm[Hg] Dr. Ed Bowman MD Work Phone: [facility] 06-04-2024 20:27-0500 Body temperature 98.1 [degF] Dr. Ed Bowman MD Work Phone: [facility] 06-04-2024 20:27-0500 Diastolic blood pressure 77 mm[Hg] Dr. Ed Bowman MD Work Phone: 3(250)270-526624 [place] [address] 06-04-2024 20:27-0500 Heart rate 87 /min Dr. Ed Bowman MD Work Phone: 1(297)740-089424 [place] [address] 06-04-2024 20:27-0500 Respiratory rate 18 /min Dr. Ed Bowman MD Work Phone: [facility] 06-04-2024 20:27-0500 SaO2% (BldA) [Mass fraction] 99 % Dr. Ed Bowman MD Work Phone: [facility] 06-04-2024 20:27-0500 Systolic blood pressure 133 mm[Hg] Dr. Ed Bowman MD Work Phone: [facility] 06-04-2024 18:30-0500 Body mass index (BMI) [Ratio] 36.6 kg/m2 Dr. Ed Bowman MD Work Phone: [facility] 06-04-2024 18:30-0500 Body weight 93.[address] Ed Bowman MD Work Phone: [facility] 03-16-2023 10:53-0400 Body height 165.1 cm [facility] 01-30-2023 15:12-0400 Heart rate 65 /min [facility] 01-30-2023 15:12-0400 Respiratory rate 16 /min [facility] 01-30-2023 15:12-0400 SaO2% (BldA) [Mass fraction] 97 % [facility] 01-30-2023 12:04-0400 Body height 165.1 cm [facility] 01-30-2023 12:04-0400 Body mass index (BMI) [Ratio] 35.1 kg/m2 [facility] 01-30-2023 12:04-0400 Body temperature 96.4 [degF] [facility] 01-30-2023 12:04-0400 Body weight 95.75 kg [facility] Encounters Encounter Date Encounter Type Care Provider Facility Start: 12-12-2024 ambulatory [facility] Facility:[facility] Start: 12-11-2024 ambulatory [facility] Facility:[facility] Start: 12-05-2024 End: 12-05-2024 Emergency department patient visit Dr. Ed Bowman MD Work Phone: -Emergency Department Work Phone: Start: 11-29-2024 End: 11-29-[address] Ed Bowman MD Work Phone: [facility] Work Phone: Start: 11-29-2024 End: 11-29-[address] Ke Saeed MD -Outpatient Breast Imaging Work Phone: Start: 11-29-2024 End: 11-29-[facility] Start: 11-26-2024 End: 11-26-2024 Emergency department patient visit Dr. Ed Bowman MD Work Phone: -Emergency Department Work Phone: Start: 11-21-2024 End: 11-21-[address] Ed Bowman MD Work Phone: [facility] Work Phone: Start: 11-21-2024 End: 11-21-[address] Ed Bowman MD -Laboratory Specimen Work Phone: Start: 11-20-2024 End: 11-20-[address] Ke Saeed MD -[facility] Work Phone: Start: 11-20-2024 End: 11-21-2024 ambulatory Ed [facility] Facility:[facility] Start: 11-20-[address] Nelson Hobson MD -[facility] Start: 11-09-2024 End: 11-09-[address] Ed Bowman MD -Radiology [facility] Work Phone: Start: 11-09-2024 End: 11-09-2024 ambulatory Ed [facility] Facility:[facility] Start: 11-05-2024 End: 11-05-2024 Emergency department patient visit Dr. Ed Bowman MD Work Phone: -Emergency Department Work Phone: Start: 09-25-[address] Nelson Hobson MD -[facility] Start: 09-25-2024 End: 09-25-[address] Nelson Hobson MD -[facility] Work Phone: Start: 09-25-2024 End: 09-25-2024 ambulatory Ed [facility] Facility:[facility] Start: 09-16-2024 End: 09-16-2024 Emergency department patient visit Dr. Ed Bowman MD Work Phone: -Emergency Department Work Phone: Start: 09-12-2024 End: 09-12-[address] Ed Bowman MD Work Phone: [facility] Work Phone: Start: 09-12-2024 End: 09-12-[address] Ed Bowman MD -Laboratory, Phy Office 3rd [facility] Start: 09-12-2024 End: 09-12-2024 ambulatory Ed [facility]by Facility:[facility] Start: 07-18-2024 End: 07-18-2024 Patient encounter procedure Roxana MARIA -[facility] Work Phone: Start: 07-18-2024 End: 07-18-2024 ambulatory Roxana Johns Facility:[facility] Start: 06-30-2024 ambulatory Roxana Gloverhn Facility:[facility] Start: 06-30-2024 Non-patient / Non-visit Dr. Neptali york MD -[facility] Start: 06-30-2024 End: 06-30-2024 Patient encounter procedure Roxanawilliam Johns PA -Cardiovascular Services Work Phone: Start: 06-30-2024 End: 06-30-2024 ambulatory Roxanawilliam Johns Facility:[facility] Start: 06-13-2024 End: 06-13-[address] Ed Bowman MD -Laboratory, Phy Office 3rd Flr Start: 06-13-2024 End: 06-13-2024 ambulatory [facility] Facility:[facility] Start: 06-08-2024 End: 06-08-[address] Nelson Hobson MD -Laboratory, Specimen Work Phone: Start: 06-08-2024 End: 06-08-2024 ambulatory Ed [facility] Facility:[facility] Start: 06-05-[address] Nelson Hobson MD -[facility] Start: 06-05-2024 End: 06-05-[address] Nelson Hobson MD -[facility] Work Phone: Start: 06-05-2024 End: 06-05-2024 ambulatory Ed [facility] Facility:[facility] Start: 06-04-2024 End: 06-04-2024 Emergency department patient visit Dr. Chance Nieto MD -Emergency Department Work Phone: Start: 05-16-2024 End: 05-16-2024 ambulatory Ed [facility] Facility:[facility] Start: 05-12-2024 End: 05-12-2024 ambulatory Ed [facility]by Facility:[facility] Start: 05-11-2024 End: 05-11-2024 ambulatory Ed [facility]by Facility:[facility] Start: 05-08-2024 End: 05-08-2024 ambulatory Ed [facility] Facility:[facility] Start: 03-31-2024 End: 03-31-2024 ambulatory Ed [facility] Facility:[facility] Start: 03-13-2024 ambulatory Simona Mo Facility:[facility] Start: 03-12-2024 ambulatory Ed [facility] Start: 03-12-2024 End: 03-16-2024 Evaluation and management of inpatient Nelson Carr Facility:[facility] Start: 03-10-2024 End: 03-10-2024 ambulatory Ed [facility] Facility:[facility] Start: 02-24-2024 End: 02-24-2024 ambulatory Ed [facility] Facility:[facility] Start: 02-23-2024 End: 02-23-2024 ambulatory Ed [facility] Facility:[facility] Start: 02-04-2024 End: 02-04-2024 ambulatory Ed [facility] Colby Facility:[facility] Start: 02-03-2024 End: 02-03-2024 ambulatory Ed [facility] Colby Facility:[facility] Start: 01-31-2024 End: 01-31-2024 ambulatory Ed [facility]by Facility:[facility] Start: 01-11-2024 End: 01-11-2024 ambulatory Ed Chi Colby Facility:[facility] Start: 01-10-2024 End: 01-10-2024 Emergency department patient visit Alcon Conner Facility:[facility] Start: 12-15-2023 ambulatory Warren de Matt Facili ty:[facility] Start: 12-14-2023 ambulatory Warren de Matt Facili ty:[facility] Start: 12-14-2023 End: 12-16-2023 Evaluation and management of inpatient Warren de Matt Facility:[facility] Start: 09-06-2023 End: 09-06-2023 ambulatory [facility] Work Phone: Start: 09-06-2023 End: 09-06-2023 Patient encounter procedure [facility]-Laboratory, Phy Office 3rd Flr Start: 08-13-2023 End: 08-13-2023 Patient encounter procedure [facility]-Radiology, [facility] Work Phone: Start: 03-23-2023 End: 03-23-2023 ambulatory [facility] Work Phone: Start: 03-23-2023 End: 03-23-2023 Patient encounter procedure [facility]-Radiology, [facility] Work Phone: Start: 03-16-2023 End: 03-16-2023 ambulatory [facility] Work Phone: Start: 03-16-2023 End: 03-16-2023 Patient encounter procedure [facility]-Outpatient Bone Densitometry Work Phone: Start: 03-08-2023 End: 03-08-2023 ambulatory [facility] Work Phone: Start: 03-08-2023 End: 03-08-2023 [facility] Start: 01-30-2023 End: 01-30-2023 Emergency department patient visit [facility]-Emergency Department Work Phone: Start: 01-28-2023 End: 01-28-2023 [facility] Start: 09-01-2022 End: 09-01-2022 ambulatory [facility] Work Phone: Start: 09-01-2022 End: 09-01-2022 Patient encounter procedure [facility]-Pulmonary Services/Neurology Start: 08-31-2022 End: 08-31-2022 ambulatory [facility] Work Phone: Start: 08-31-2022 End: 08-31-2022 [facility] Start: 03-02-2022 End: 03-02-2022 ambulatory [facility] Work Phone: Start: 03-02-2022 End: 03-02-2022 Patient encounter procedure [facility]-Laboratory, Phy Office 3rd Flr Start: 11-12-2021 End: 11-12-2021 [facility] Start: 09-02-2021 End: 09-02-2021 Patient encounter procedure [facility]-Pulmonary Services/Neurology Start: 08-11-2021 End: 08-11-2021 Patient encounter procedure [facility]-Laboratory, Phy Office 3rd Flr Procedures Date Procedure Procedure Detail Performing Clinician Start: 12-05-2024 CT cervical spine wi thout contrast Dr. Ed Bowman MD Work Phone: Start: 12-05-2024 CT of head without contrast Dr. Ed Bowman MD Work Phone: Start: 11-29-2024 Screening mammography Lorraine Bowman MD Work Phone: Start: 11-26-2024 CT cervical spine wi thout contrast Dr. Ed Bowman MD Work Phone: Start: 11-26-2024 CT of head without contrast Dr. Ed Bowman MD Work Phone: Start: 11-21-2024 Gram stain microscopy Lorraine Bowman MD Work Phone: Start: 11-21-2024 Microbial culture, routine Dr. Ed Bowman MD Work Phone: Start: 11-20-2024 D-dimer assay, quantitative Dr. Ed Bowman MD Work Phone: Comment on above: D-Dimer ELEVATED (>0 .49): Additional studies and clinicalassessments are indicated to conclude diagnosis of:Deep Vein Thrombosis (DVT) or Pulmonary Embolism (PE)CRITICAL VALUE CALLED TO LEXA MATHIAS (ONC)11/20/24 1454 Iggy Qiu.RESULTS READ BACK BY SAME. Start: 11-20-[address] Ed Bowman MD Work Phone: Start: 11-09-2024 Plain X-ray of shoulder Dr. Ed Bowman MD Work Phone: Start: 11-05-2024 Urnls dip stick/tabl et reagent auto microscopy Dr. Ed Bowman MD Work Phone: Start: 11-05-[address] Ed lorenzo MD Work Phone: Start: 11-05-[address] Ed Bowman MD Work Phone: Start: 09-25-[address] Ed Bowman MD Work Phone: Start: 09-16-2024 CT of head without contrast Dr. Ed Bowman MD Work Phone: Start: 09-12-2024 Vitamin D, 25-hydrox y measurement Dr. Ed Bowman MD Work Phone: Comment on above: Vitamin D StatusDefi ciency: <20 ng/mL (50nmol/L)Insufficiency: 20-30 ng/mL (50-75 nmol/L)Sufficiency: 30-100 ng/mL (75-250 nmol/L)Toxicity: >100 ng/mL (>250 nmol/L) Start: 06-13-2024 XR knee, [address] Mihir Bowman MD Work Phone: Start: 06-08-2024 Clostridium difficil e detection Dr. Ed Bowman MD Work Phone: Start: 06-08-[address] Ed Bowman MD Work Phone: Start: 06-08-2024 Ova [place] parasites identification Dr. Ed Bowman MD Work Phone: Start: 06-05-2024 Measurement of renal function Dr. Ed Bowman MD Work Phone: Comment on above: GFR Calc Start: 06-04-2024 CT cervical spine wi thout contrast Dr. Ed Bowman MD Work Phone: Start: 06-04-2024 CT of head without contrast Dr. Ed Bowman MD Work Phone: Start: 08-13-2023 X-ray of both feet Start: 03-23-2023 Plain x-ray of hand Start: 03-16-2023 Dual energy X-ray absorptiometry Start: 01-30-2023 CT cervical spine wi thout contrast Start: 01-30-2023 CT of face Start: 01-30-2023 CT of head without contrast Start: 01-30-2023 Plain x-ray of hand Start: 11-12-2021 Radiography of sacro coccygeal spine Start: 11-12-2021 CT of head without contrast Start: 09-02-2021 Influenza Types A,B Direct FA ([facility]) Start: 09-02-2021 End: 09-02-2021 Respiratory syncytial virus antigen assay Start: 01-03-2021 Ecg routine ecg w/le ast 12 lds i&r only History of appendectomy S/P appendectomy Dr. Ed Bowman MD Work Phone: Influenza Types A,B Direct FA ([facility]) Respiratory syncytia l virus antigen assay Plan of Treatment Date Care Activity Detail Author Start: 12-05-2024 End: 12-05-2024 [facility] Start: 11-26-2024 [facility] Start: 11-21-2024 Skin and Soft Tissue MRSA/MSSA (PCR Skin and Soft Tissue MRSA/MSSA (PCR [facility] Start: 11-21-2024 Bacterial nucleic ac id assay [facility] Start: 11-21-2024 [facility] Start: 11-05-2024 End: 11-05-2024 [facility] Start: 11-05-2024 Bacteria identified in Urine by Culture Urine Culture [facility] Start: 11-05-2024 Consultation [facility] Start: 11-05-2024 [facility] Start: 09-16-2024 [facility] Start: 06-04-2024 [facility] Bacterial nucleic ac id assay [facility] CBC W Auto Different ial panel - Blood [facility] CBC W Auto Different ial panel - Blood [facility] Comprehensive metabo lic 2000 panel - Serum or Plasma [facility] D-dimer assay, quantitative [facility] D-dimer assay, quantitative [facility] Lactate dehydrogenas e measurement [facility] MG Breast - bilatera l Screening [facility] Partial thromboplast in time, activated [facility] Patient Education [facility] Work Phone: Patient referral [facility] Work Phone: Prothrombin time [facility] Urine culture [facility] Immunizations Immunization Date Immunization Notes Care Provider Fa cility 11-05-2024 tetanus toxoid, redu dalila diphtheria toxoid, and acellular pertussis vaccine, adsorbed Dr. Ed Bowman MD Work Phone: [facility] 04-11-2022 influenza, injectabl e, quadrivalent, preservative free [facility] 04-11-2022 influenza, seasonal, injectable [facility] 10-22-2020 Covid (Pfizer) [facility] 09-30-2020 Covid (Pfizer) [facility] 03-26-2019 Influenza virus vaccine [facility] 02-28-2017 influenza, injectabl e, quadrivalent, preservative free [facility] 02-28-2017 influenza, seasonal, injectable [facility] Payers Date Payer Category Payer Self-pay [id number] 2023 Medicare [id number] Medicare [id number] Unknown [id number] Unknown [id number] 2.16.8 40.1.140645.3.579.2.462 Unknown [id number] 2.16.8 40.1.207968.3.579.2.462 Unknown [id number] 2.16.8 40.1.393523.3.579.2.462 Unknown [id number] 2.16.8 40.1.458226.3.579.2.462 Unknown [id number] 2.16.8 40.1.301120.3.579.2.462 Unknown [id number] 2.16.8 40.1.742906.3.579.2.462 Unknown [id number] 2.16.8 40.1.091891.3.579.2.462 Unknown [id number] 2.16.8 40.1.729439.3.579.2.462 Unknown [id number] 2.16.8 40.1.546670.3.579.2.462 Unknown [id number] 2.16.8 40.1.277452.3.579.2.462 Unknown [id number] 2.16.8 40.1.479328.3.579.2.462 Unknown [id number] 2.16.8 40.1.692599.3.579.2.462 Unknown [id number] 2.16.8 40.1.223945.3.579.2.462 Unknown [id number] 2.16.8 40.1.253170.3.579.2.462 Unknown [id number] 2.16.8 40.1.317602.3.579.2.462 Unknown [id number] 2.16.8 40.1.642210.3.579.2.462 Unknown [id number] 2.16.8 40.1.289597.3.579.2.462 Unknown [id number] 2.16.8 40.1.216402.3.579.2.462 Unknown [id number] 2.16.8 40.1.682721.3.579.2.462 Unknown [id number] 2.16.8 40.1.881696.3.579.2.462 Unknown [id number] 2.16.8 40.1.501773.3.579.2.462 Unknown [id number] 2.16.8 40.1.637792.3.579.2.462 Unknown [id number] 2.16.8 40.1.163962.3.579.2.462 Unknown [id number] 2.16.8 40.1.959483.3.579.2.462 Unknown [id number] 2.16.8 40.1.748421.3.579.2.462 Unknown [id number] 2.16.8 40.1.960632.3.579.2.462 Unknown [id number] 2.16.8 40.1.925701.3.579.2.462 Unknown [id number] 2.16.8 40.1.737135.3.579.2.462 Unknown [id number] 2.16.8 40.1.901827.3.579.2.462 Unknown [id number] 2.16.8 40.1.810209.3.579.2.462 Unknown [id number] 2.16.8 40.1.212850.3.579.2.462 Unknown [id number] 2.16.8 40.1.828086.3.579.2.462 Unknown [id number] 2.16.8 40.1.421154.3.579.2.462 Unknown [id number] 2.16.8 40.1.752434.3.579.2.462 Unknown [id number] 2.16.8 40.1.283749.3.579.2.462 Unknown [id number] 2.16.8 40.1.946766.3.579.2.462 Unknown [id number] 2.16.8 40.1.649170.3.579.2.462 Unknown [id number] 2.16.8 40.1.570010.3.579.2.462 Unknown [id number] 2.16.8 40.1.175893.3.579.2.462 Unknown [id number] 2.16.8 40.1.623567.3.579.2.462 Unknown [id number] 2.16.8 40.1.102720.3.579.2.462 Unknown [id number] 2.16.8 40.1.397591.3.579.2.462 Unknown [id number] 2.16.8 40.1.609094.3.579.2.462 Unknown [id number] 2.16.8 40.1.061573.3.579.2.462 Unknown [id number] 2.16.8 40.1.933131.3.579.2.462 Unknown [id number] 2.16.8 40.1.778325.3.579.2.462 Unknown [id number] 2.16.8 40.1.329902.3.579.2.462 Unknown [id number] 2.16.8 40.1.327132.3.579.2.462 Unknown [id number] 2.16.8 40.1.520075.3.579.2.462 Unknown [id number] 2.16.8 40.1.143227.3.579.2.462 Unknown [id number] 2.16.8 40.1.249881.3.579.2.462 Unknown [id number] 2.16.8 40.1.512950.3.579.2.462 Unknown [id number] 2.16.8 40.1.843196.3.579.2.462 Unknown [id number] 2.16.8 40.1.652076.3.579.2.462 Unknown [id number] 2.16.8 40.1.480947.3.579.2.462 Social History Date Type Detail Facility Start: 02-21-2021 End: 01-30-2023 Tobacco smoking status NHIS Unknown if ever smoked [facility] Start: 10-13-2017 None [facility] Start: 12-21-2019 Spouse/ Signif icant Other [facility] Start: 1950 Sex Assigned At Female [facility] Start: 09-16-2024 End: 12-05-2024 Tobacco smoking status NHIS Never smoked tobacco (finding) [facility] Start: 09-16-2024 End: 11-05-2024 Sex Female (finding) [facility] Medical Equipment Procedure Code Equipment Code Equipment Original Text Equipment Identifier Dates Total cholecystectomy with exploration of common bile duct CLIP,HEMTHI MCKINNEY FDA Start: 12-22-2019 Total cholecystectomy with exploration of common bile duct CLIP,YEISON MCKINNEY FDA Start: 12-22-2019 Total cholecystectomy with exploration of common bile duct CLIP,HEMTHI MCKINNEY FDA Start: 12-22-2019 Total cholecystectomy with exploration of common bile duct CLIP,HEMTHI MCKINNEY FDA Start: 12-22-2019 Total cholecystectomy with exploration of common bile duct CLIP,HEMTHI MCKINNEY FDA Start: 12-22-2019 Total cholecystectomy with exploration of common bile duct CLIP,HEMOLOCK FLO WECK FDA Start: 12-22-2019 Total cholecystectomy with exploration of common bile duct CLIP,HEMOLORAVINDRA ROSSI WECK FDA Start: 12-22-2019 Total cholecystectomy with exploration of common bile duct CLIP,HEMOLORAVINDRA ROSSI WECK FDA Start: 12-22-2019 Total cholecystectomy with exploration of common bile duct CLIP,HEMOLORAVINDRA ROSSI WECK FDA Start: 12-22-2019 Total cholecystectomy with exploration of common bile duct CLIP,HEMOLORAVINDRA ROSSI WECK FDA Start: 12-22-2019 Total cholecystectomy with exploration of common bile duct CLIP,HEMOLORAVINDRA ROSSI WECK FDA Start: 12-22-2019 Total cholecystectomy with exploration of common bile duct CLIP,HEMOLORAVINDRA ROSSI WECK FDA Start: 12-22-2019 Total cholecystectomy with exploration of common bile duct CLIP,HEMOLORAVINDRA ROSSI WECK FDA Start: 12-22-2019 Total cholecystectomy with exploration of common bile duct CLIP,HEMOLORAVINDRA ROSSI WECK FDA Start: 12-22-2019 Total cholecystectomy with exploration of common bile duct CLIP,HEMTHI ROSSI WECK FDA Start: 12-22-2019 Total cholecystectomy with exploration of common bile duct CLIP,HEMTHI ROSSI WECK FDA Start: 12-22-2019 Total cholecystectomy with exploration of common bile duct CLIP,HEMOLORAVINDRA ROSSI WECK FDA Start: 12-22-2019 Total cholecystectomy with exploration of common bile duct CLIP,HEMOLORAVINDRA ROSSI WECK FDA Start: 12-22-2019 Total cholecystectomy with exploration of common bile duct CLIP,HEMOLORAVINDRA ROSSI WECK FDA Start: 12-22-2019 Total cholecystectomy with exploration of common bile duct CLIP,HEMOLORAVINDRA ROSSI WECK FDA Start: 12-22-2019 Total cholecystectomy with exploration of common bile duct CLIP,HEMOLOCK FLO WECK FDA Start: 12-22-2019 Total cholecystectomy with exploration of common bile duct CLIP,HEMOLOCK FLO WECK FDA Start: 12-22-2019 Total cholecystectomy with exploration of common bile duct CLIP,HEMOLOCK FLO WECK FDA Start: 12-22-2019 Total cholecystectomy with exploration of common bile duct CLIP,HEMOLORAVINDRA ROSSI WECK FDA Start: 12-22-2019 Total cholecystectomy with exploration of common bile duct CLIP,HEMOLORAVINDRA FLO WECK FDA Start: 12-22-2019 Total cholecystectomy with exploration of common bile duct CLIP,HEMOLOCK MED WECK FDA Start: 12-22-2019 Total cholecystectomy with exploration of common bile duct CLIP,YEISON MCKINNEY FDA Start: 12-22-2019 Total cholecystectomy with exploration of common bile duct CLIP,YEISON MCKINNEY FDA Start: 12-22-2019 Total cholecystectomy with exploration of common bile duct CLIP,YEISON MCKINNEY FDA Start: 12-22-2019 Total cholecystectomy with exploration of common bile duct CLIP,YEISON MCKINNEY FDA Start: 12-22-2019 Mental Status Date Assessment Result Facility 11-05-2024 Cognitive function Level Of Cons ciousness Awake;Alert;Appropriate;Follow s Commands [facility] Work Phone: Clinical Notes 02-21-2021 to 12-05-2024 Note Date & Type Note Facility 12-05-2024 Hospital Discharg e instructions Additional Instructions Follow-up with primary care physician. Lance need to be removed in 10 to 14 days. [facility] Work Phone: 12-05-2024 Discharge summary [facility] 12-05-2024 Radiology Diagnostic study note [facility] Imaging Services [address] [place] [address] Spine Cervical without Contras MR#: [id number] Acct: [id number] Name: BARBARA GLASS Rep #: [id number] : 1950 F 74 From: Dawson Jay MD PCP: Dr. Ed Bowman MD Status: REG E R Study:Spine Cervical without Contras Date of Exam: 12/05/24 Exam# [id number] Ordering Dr: Dc Melendez DO PROCEDURE: SPINE CERVICAL WITHOUT CONTRAS 12/05/2024 REASON FOR EXAM: FALL TECHNIQUE: Cervical spine CT without contrast. Coronal and Sagittal reconstruction series were provided. One or more dose reduction techniques were used (e.g., Automated exposure control, adjustment of the mA and/or kV according to patient size, use of iterative reconstruction technique RADIATION DOSE SUMMARY: CTDlvol: 24.15 mGy DLP: 520.1 mGycm COMPARISON: Prior study dated November 26, 2024. FINDINGS: Alignment: Straightening of the normal cervical lordosis most likely secondary to positioning. Vertebrae: Mild anterior spondylosis. Soft Tissues: Atherosclerotic plaque formation of the carotid bifurcations. Other: None C1-2: Unremarkable C2-3: Facet joint osteoarthritis. No significant stenosis seen. C3-4: Mild degree of disc space narrowing. C4-5: Mild degree of disc space narrowing. No evidence of stenosis. C5-6: Moderate degree of disc space narrowing. Spondylosis. Uncovertebral arthrosis. Bilateral neural foraminal stenosis. C6-7: Unremarkable C7-T1: Unremarkable CT/Spine Cervical without Contras IMPRESSION: DEGENERATIVE CHANGES OF THE CERVICAL SPINE. NO EVIDENCE OF SIGNIFICANT OSSEOUS CENTRAL CANAL OR NEURAL FORAMINAL STENOSIS. Reading Location: [place] [address] CC: Dr. Dc Francis DO; Dr. Ed Bowman MD ~ Team Driver: Signed [facility] 12-05-2024 Radiology Diagnostic study note [facility] Imaging Services [address] [place] [id number] Brain/Head without Contrast MR#: [id number] Acct: [id number] Name: BARBARA GLASS Rep #: [id number] : 1950 F 74 From: Dawson Jay MD PCP: Dr. Ed Bowman MD Status: REG E R Study:Brain/Head without Contrast Date of Exa m: 12/05/24 Exam# [id number] Ordering Dr: Dc Melendez DO PROCEDURE: BRAIN/HEAD WITHOUT CONTRAST 12/05/2024 REASON FOR EXAM: FALL Laceration along left side of the skull. TECHNIQUE: Head CT without intravenous contrast. Coronal and Sagittal reconstruction serieswere provided. One or more dose reduction techniques were used (e.g., Automated exposure control, adjustment of the mA and/or kV according to patient size, use of iterative reconstruction technique. RADIATION DOSE SUMMARY: CTDlvol: 44.99 mGy DLP: 779.24 mGycm COMPARISON: Prior study dated November 26, 2024. FINDINGS: Brain: Low density in the periventricular white matter suggests mild chronic small vessel ischemic changes. CSF Spaces: Mild generalized cerebral atrophy Sinuses/Mastoids: Clear at visualized levels Bones: Unremarkable CT/Brain/Head without Contrast IMPRESSION: CHRONIC CHANGES. NO ACUTE FINDINGS. Reading Location: [place] [address] CC: Dr. Dc Yeh-DO Ольга; Dr. Ed Bowman MD ~ Team Driver: Signed [facility] 11-26-2024 Discharge summary [facility] 11-26-2024 Radiology Diagnostic study note [facility] Imaging Services [address] [place] [address] Spine Cervical without Contras MR#: [id number] Acct: [id number] Name: BARBARA GLASS Rep #: [id number] : 1950 F 74 From: Laura Mora MD PCP: Dr. Ed Bowman MD Status: REG E R Study:Spine Cervical without Contras Date of Exam: 11/26/24 Exam# [id number] Ordering Dr: Irena Gannon EXAM: CT Cervical Spine Without Intravenous Contrast CLINICAL INDICATION: NECK INJURY TECHNIQUE: Axial computed tomography images of the cervical spine without intravenous contrast. This CT exam was performed using one or more of the following dose reduction techniques: automated exposure control, adjustment of the mA and/or kV according to patient size, and/or use of iterative reconstruction technique. COMPARISON: CT Cervical Spine dated 06/04/2024 FINDINGS: VERTEBRAE: Degenerative facet arthropathy throughout the cervical spine. No acute fracture. DISCS/SPINAL CANAL/NEURAL FORAMINA: Degenerative disc disease lower cervical spine. SOFT TISSUES: Unremarkable. CT/Spine Cervical without Contras IMPRESSION: 1. No acute fracture. 2. No significant change from the prior exam. 3. Degenerative changes cervical spine as described. Reading Location: [facility] CC: Dr. Ed Bowman MD; CROW Cooper ~ Team Driver: Signed [facility] 11-26-2024 Radiology Diagnostic study note [facility] Imaging Services [address] [place] [address] Brain/Head without Contrast MR#: [id number] Acct: [id number] Name: BARBARA GLASS Rep #: [id number] : 1950 F 74 From: Laura Mora MD PCP: Dr. Ed Bowman MD Status: REG E R Study:Brain/Head without Contrast Date of Exa m: 11/26/24 Exam# [id number] Ordering Dr: Irena Gannon EXAM: CT Head Without Intravenous Contrast CLINICAL INDICATION: HEAD INJURY, ON ELIQUIS TECHNIQUE: Axial computed tomography images of the head/brain without intravenous contrast. This CT exam was performed using one or more of the following dose reduction techniques: automated exposure control, adjustment of the mA and/or kV according to patient size, and/or use of iterative reconstruction technique. COMPARISON: CT Head dated 11/16/2024 FINDINGS: BRAIN AND EXTRA-AXIAL SPACES: The cerebral and cerebellar sulci are prominent consistent with brain atrophy. Areas of decreased attenuation in the deep cerebral white matter are consistent with small vessel ischemic/degenerative changes. No acute intracranial hemorrhage, midline shift or mass effect. If symptoms persist, further evaluation with MRI is recommended. BONES/JOINTS: Unremarkable. No acute fracture. SOFT TISSUES: Unremarkable. SINUSES: Unremarkable as visualized. No acute sinusitis. MASTOID AIR CELLS: Unremarkable as visualized. No mastoid effusion. CT/Brain/Head without Contrast IMPRESSION: 1. Generalized brain atrophy. 2. Small vessel ischemic/degenerative changes. 3. No acute intracranial hemorrhage, midline shift or mass effect. If symptoms persist, further evaluation with MRI is recommended. 4. No significant change from the prior exam. Reading Location: [facility] CC: Dr. Ed Bowman MD; CROW Cooper ~ Team Driver: Signed [facility] 11-26-2024 Discharge summary Note Date/Time November 26, 2024 4:29pm [facility] Medical Records Department [address] [place] [address] Emergency Department Summary 11/26/24 MR#: [id number] Acct: [id number] Name: BARBARA GLASS Rep #:[id number] : 1950 74 From: Irena MARIA PCP: Dr. Ed Bowman MD Status:REG E R Location: ED <Statement entered by Ryan Akers, DO - 11/26/24 16:29> Patient was seen and examined with physician orthodontic assistant Qian All components of the history and physical confirmed and agreed. History of present illness and physical exam: Patient is a 74-year-old female with a past medical history of DVT on Eliquis, anxiety, fibromyalgia who presented to the emergency department chief complaint of fall and hit her head. Patient states that she was at her granddaughter's graduation and was sitting in the bleachers when her foot got caught on the bench causing a fall and hit the left side of her head. She states that she notpass out she remembers the entire event. Patient states that she was told that since she is on Eliquis she needs to have a CT of her head after any trauma. Review of systems: Agree above Physical exam: Agree with above patient is a 74-year-old female who presented tot emergency department chief complaint of MDM Falling hit her head well on Eliquis. Once again this was mechanical fall she states that her feet got caught on the bottom of the bench causing her to fall she did not develop chest pain shortness of breath lightheadedness or dizziness prior to the fall. On the differential diagnose includes but not limited to intracranial hemorrhage, cervical spine fracture. Once workup is obtained reviewed she will be reevaluated. Patient CT head and brain without contrast was reviewed and showed generalized brain atrophy, small vessel ischemic degenerative changes, no acute intracranialhemorrhage midline shift or mass effect. Patient CT cervical spine showed no acute fracture or listhesis. Discussed results with patient she would like to go home at this point time. She is agreeable to plan she was advised to return with any other concerns or worsening symptoms all question concerns answered she was discharged home in stable condition. Plan: Final impression: Fall Closed head injury on Eliquis Disposition: Patient will be discharged home in stable condition Supervising attending attestation: Ryan Akers D.O. HPI History of Present Illness Chief Complaint: Fall Narrative Narrative: Patient presenting today due to a head injury that occurred this afternoon whileat her granddaughter's graduation. She was trying to sit on a bench when she got her feet caught on the bottom of the bench and fell, hitting the left side of her head on the ground. She also reports pain to the right side of her neck/right trapezius. She is on Eliquis due to history of DVT/PE. She reports pain to her head and right side of her neck. She otherwise denies any injury. She had no LOC. She is able to ambulate. [facility] Medical History DVT (deep venous thrombosis) Staphylococcus aureus infection Macular degeneration Bilateral pulmonary embolism Depression History of kidney stones Acute calculous cholecystitis Laceration of left index finger Pulmonary emboli Hypoxia Elevated troponin Pulmonary embolism and infarction Fracture of left foot Episode of syncope Fibromyalgia Anxiety Home Medications ?Medication ?Instructions ?Recorded ?Last Taken ?Type hydrocodone 7.5 mg-acetaminophen 1 tab PO TID PRN PRN pain 12/15/23 03/12/24 10:00 History 325 mg tablet levothyroxine 25 mcg tablet 25 mcg PO DAILY thyroid 03/11/24 History cholecalciferol (vitamin D3) 25 25 mcg PO DAILY supple ment 02/23/24 03/06/24 History mcg (1,000 unit) capsule tolterodine 2 mg tablet 4 mg PO BID over active blad gail 05/08/24 Unknown History doxepin 50 mg capsule 50 mg PO QHS 07/18/24 Unknow n History vitamin B complex 1 cap PO QDAY 07/18/24 Unkno wn History Allergy/AdvReac Type Severity Reaction Status Date / Time No Known Allergies Allergy Verified 11/26/24 14:14 Family History Mother Myocardial infarction Sister Diabetes Cancer Sister No problems noted. Father Cancer Surgical History S/P tonsillectomy S/P appendectomy S/P excision of ganglion cyst History of partial hysterectomy History of cholecystectomy Social History Smoking Status: Never smoker alcohol intake: never substance use type: does not use ROS ROS ED Constitutional Constitutional ED: Denies chills or fever(s) Cardiovascular Cardiovascular: Denies chest pain Respiratory/Chest Respiratory/Chest: Denies dyspnea Gastrointestinal Gastrointestinal: Denies abdominal pain, nausea or vomiting Musculoskeletal Musculoskeletal: Reports neck pain Integumentary Denies Abrasions Neurologic Neurologic: Reports headache(s); Denies paresthesias EXAM Physical Exam Const Vital Signs: 11/26/24 14:14 11/26/24 14:49 Temperature 96.9 F L Temperature Source Temporal Pulse Rate 94 Respiratory Rate 15 Respiratory Effort Normal Respiratory Depth Normal Respiratory Pattern Normal Blood Pressure 134/97 H Blood Pressure Mean 109 Pulse Ox 96 98 Oxygen Delivery Method Room Air Room Air Positive well nourished, well developed and no apparent distress General Appearance ED: well developed HEENT Reports normocephalic and head/scalp atraumatic Mouth ED: Yes moist mucous membranes normal Eyes PERRL and EOMs intact bilaterally Neck full ROM and supple Neck Narrative: No midline cervical tenderness, tenderness to the trapezius and right paracervical muscles. Chest Wall inspection of chest normal Resp normal respiratory effort and clear to auscultation bilaterally Cardio regular rate and regular rhythm GI soft to palpation, non-tender, non-distended and no masses Back/Spine normal ROM and normal to inspection Extremity normal to inspection and full ROM Neuro oriented x3, CN's II-XII intact bilaterally, moves all extremities, no focal motor deficits and no sensory deficits noted Sensorium / Orientation: awake and alert Psych mental status grossly normal and thought process normal Skin no rashes or lesions noted and no wounds MDM MDM MDM Narrative Medical decision making narrative: Patient presenting today due to a head injury that occurred this afternoon due to mechanical fall. She is on Eliquis due to history of DVT/PE. She reports pain to her head into the right side of her neck. She has pain to the right trapezius right paracervical muscles. Head and neck CTs will be obtained to assess for intracranial bleed and cervical fracture. She was given Tylenol for pain. CT is negative for acute findings. On reexamination she is doing well. Hide injury precautions discussed and patient discharged home in stable condition. Recommended following close with PCP. She can take Tylenol at home for pain as needed. Radiography Diagnostic Testing: Clinical Impression(s) from Imaging Studies Brain CT 11/26/24 14:35 IMPRESSION: 1. Generalized brain atrophy. 2. Small vessel ischemic/degenerative changes. 3. No acute intracranial hemorrhage, midline shift or mass effect. If symptoms persist, further evaluation with MRI is recommended. 4. No significant change from the prior exam. Reading Location: [facility] Cervical Spine CT 11/26/24 14:35 IMPRESSION: 1. No acute fracture. 2. No significant change from the prior exam. 3. Degenerative changes cervical spine as described. Reading Location: [facility] Discharge Plan Triage Chief Complaint: Fall ED Midlevel Provider: Irena Gill ED Provider: Ryan Akers Dx/Rx/DC Orders Clinical Impression: Head injury, Cervical strain, Fall, Chronic anticoagulation Instructions: ED Head Injury (Adult), ED Neck Sprain or Strain Prescriptions: No Action cholecalciferol (vitamin D3) 25 mcg (1,000 unit) capsule 25 mcg PO DAILY doxepin 50 mg capsule 50 mg PO QHS vitamin B complex Capsule 1 cap PO QDAY hydrocodone-acetaminophen 7.5-325 mg tablet 1 tab PO TID PRN PRN (Reason: pain) levothyroxine 25 mcg tablet 25 mcg PO DAILY tolterodine 2 mg tablet 4 mg PO BID Rx Instructions: per pt dose recently increased to BID Primary Care Provider: Ed Bowman Chi Referrals: Ed Bowman Chi, MD [Primary Care Provider] - 5-7 Days Activity Restrictions/Additional Instructions: Follow-up with your PCP and return for any other concerns. Print Language: Burkinan Disposition Disposition: Home, Self Care What to do if you have Problems For any increased pain, shortness of breath, bleeding, nausea or vomiting, chestpain, or any unexpected problems, contact your Primary Care Provider. Call [facility] ([phone]) or report to the closest Emergency Room. Call 911 if necessary. 11/26/24 1618 <Electronically signed by Irena Gill PA> Cosigner Signature (if applicable): 11/26/241628 <Electronically signed by Ryan Akers DO> CC: Dr. 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 Ed Bowman MD Status: REG E R Study:Brain/Head without Contrast Date of Exa m: 09/16/24 Exam# [id number] Ordering Dr: Amber Pelaez DO EXAM: BRAIN/HEAD WITHOUT CONTRAST CLINICAL HISTORY: 74-year-old female, head injury. COMPARISON: CT head 06/04/2024. TECHNIQUE: Routine CT imaging of the head without IV contrast. Additional multiplanar reformats were obtained. Dose reduction techniques were used including intermediate exposure control (AEC),iterative reconstruction technique, and/or mA and/or KV dose adjustments based on patient's size. FINDINGS: Stable mild generalized cerebral volume loss with concordant prominence of the ventricles and subarachnoid spaces. Moderate patchy and confluent supratentorial white matter hypodensities. Chronic lacunartype infarcts withinthe bilateral thalami. The figueroa-white matter interfaces are otherwise maintained. No acute intracranial hemorrhage or herniation. The orbits, visualized paranasal sinuses and mastoids are unremarkable. No acute fracture or scalp hematoma. CT/Brain/Head without Contrast IMPRESSION: No acute intracranial finding. Stable findings of chronic microvascular ischemic changes and age-related changes. Reading Location: [id number] CC: Dr. Samia Pelaez DO; Dr. Ed Bowman MD ~ Team Driver: Signed [facility]01-07-2025 Evaluation note* Diagnosis Onset Date Resolution Status Admit Date Pulmonary embolism and infarction acute July 18 1:15pm Thromboembolism chronic September 12:20pm [facility] Work Phone: 1(420) 274-779511-25-2024 Evaluation note* Diagnosis Onset Date Resolution Status Admit Date Loose stools acute May 2:06pm Thromboembolism chronic June 05, 2024 2:06pm Pulmonary embolism and infarction acute July 18 1:15pm [facility] Work Phone: 1(251) 969-164909-05-2024 [facility]06-06-2024 [facility]08-13-2021 NoteHNO ID: [id number] Author: Pete Melvin APRN.PROTECTIVE SIGNAL OPERATOR Service: ? Author Type: Nurse Practitioner Type: Progress Notes Filed: 02/21/2021 11:45 AM Note Text: Subjective HPI Nontoxic appearing female presents urgent care chief complaint left second digit laceration. Duration of symptoms greater than 3 days. Patient states she was opening a box with a box hinge and lock attacher when she cut her index finger left [...] Take 1 capsule by mouth once daily. uwowdorjiim-F5-Hqgfuaafk serr (OSTEO BI-FLEX, 5-LOXIN,) 1,500-400-100 mg-unit-mg tab Take 1 tablet by mouth once daily. LIDOCAINE (PF) 100 MG/ML (10 %) IV Not sure of dose, IV lidocaine infusion once monthly FAMILY HISTORY Problem Relation Age of Onset - Heart Mother SC - Cancer Father Lung - Heart Sister SC, stents Social History Tobacco Use - Smoking [...] agrees with plan of care. Pete Melvin APRN.[facility] complaint+Reason for visit Narrative* Chief Complaint COVID-19 INJURY OF HEAD [facility] Work Phone: Discharge summary Author Dc Delacruzgett [facility] Note Date/Time December 05, 2024 9:40a m [facility] Medical Records Department [address] [place] [id number] Emergency Department Summary 12/05/24 MR#: [id number] Acct: [id number] Name: BARBARA GLASS Rep #:[id number] : 1950 74 From: Dc ackerman DO PCP: Dr. Ed Bowman MD Status:REG E R Location: ED HPI HPI - Fall History of Present Illness Chief Complaint: Fall Narrative Narrative: Chief complaint and HPI: Mechanical fall. 74-year-old female with past medical history of chronic pain on narcotics, hypothyroidism, history of DVT/PE on Eliquis presents for evaluation after mechanical fall. Patient states that she slipped on her nightgown on the floor which caused her to fall. She states she hit the left side of her scalp on the side of the door. Was able to ambulate off the floor. EMS was called secondary to bleeding from the scalp. Endorses pain where the injury to the scalp is otherwise denies pain elsewhere. Denies any shortness of breath, chest pain, abdominal pain, nausea, vomiting, back/extremity pain, numbness/tingling. She states that she is up-to-date on tetanus. Review of systems: See HPI Medications: As listed on the chart Allergies: As listed on the chart PFSH: Per chart Vital signs: As listed on the chart. Reviewed. Physical exam: Gen: A&O x3, NAD Head: Normocephalic, 2 cm laceration to the left lateral scalp-minimal active bleeding Eyes: No sclera icterus, conjunctiva clear, PERRL, EOMI ENT: TMs clear BL, moist mucous membranes, no swelling/lacerations/blood in the mouth or the nares, No nasal septal hematoma, no facial tenderness Neck: Trachea midline, No JVD, Nontender CV: RRR, no murmurs, no chest wall TTP Resp: Lungs CTA BL, no w/r/c GI: Abd soft, non-distended, non-tender, no r/r/g Musc: Full ROM, no deformity, no spinal TTP, no ajit step-offs Skin: Warm, dry, intact Neuro: Alert, oriented, grossly intact, sensation intact, GCS 15 Psych: Cooperative, appropriate mood and affect PFS PFS Medical History DVT (deep venous thrombosis) Staphylococcus aureus infection Macular degeneration Bilateral pulmonary embolism Depression History of kidney stones Acute calculous cholecystitis Laceration of left index finger Pulmonary emboli Hypoxia Elevated troponin Pulmonary embolism and infarction Fracture of left foot Episode of syncope Fibromyalgia Anxiety Home Medications ?Medication ?Instructions ?Recorded ?Last Taken ?Type hydrocodone 7.5 mg-acetaminophen 1 tab PO TID PRN PRN pain 12/15/23 03/12/24 10:00 History 325 mg tablet levothyroxine 25 mcg tablet 25 mcg PO DAILY thyroid 03/11/24 History cholecalciferol (vitamin D3) 25 25 mcg PO DAILY supple ment 02/23/24 03/06/24 History mcg (1,000 unit) capsule tolterodine 2 mg tablet 4 mg PO BID over active blad gail 05/08/24 Unknown History doxepin 50 mg capsule 50 mg PO QHS 07/18/24 Unknow n History vitamin B complex 1 cap PO QDAY 07/18/24 Unkno wn History apixaban 5 mg (74 tabs) tablets in 5 mg PO UD 12/05/24 Unknown History a dose pack (Eliquis DVT-PE Treat 30D Start) Allergy/AdvReac Type Severity Reaction Status Date / Time No Known Allergies Allergy Verified 12/05/24 08:36 Family History Mother Myocardial infarction Sister Diabetes Cancer Sister No problems noted. Father Cancer Surgical History S/P tonsillectomy S/P appendectomy S/P excision of ganglion cyst History of partial hysterectomy History of cholecystectomy Social History Smoking Status: Never smoker alcohol intake: never substance use type: does not use EXAM Physical Exam Const Vital Signs: 12/05/24 08:32 12/05/24 08:38 12/05/24 09:37 Temperature 98.1 F 97.4 F L Temperature Source Oral Pulse Rate 80 88 Respiratory Rate 19 H 16 Respiratory Effort Normal Non-Labored Respiratory Depth Normal Respiratory Pattern Normal Blood Pressure 180/114 H 166/96 H Blood Pressure Mean 136 119 Pulse Ox 95 96 95 Oxygen Delivery Method Room Air Room Air MDM MDM MDM Narrative Medical decision making narrative: 74-year-old female with past medical history of chronic pain on narcotics, hypothyroidism, history of DVT/PE on Eliquis presents for evaluation after mechanical fall. Patient has yet to take her Eliquis this morning. GCS 15. See physical exam findings. Only injury is a 2 cm scalp laceration with minimalactive bleeding. This will need repaired. Patient is up-to-date on tetanus. Differential diagnosis includes but is not limited to scalp laceration, closed head injury, concussion, intracranial bleed. Given patient has no neck pain, low suspicion for cervical spine fracture however given age cannot fully rule out. Patient is requesting her daily narcotic to be given. This was ordered. CT head and neck ordered. Will repair the laceration with lance. Given this was purely mechanical fall, I do not think any laboratory workup is needed at this time. CT head shows no acute intracranial abnormality. Patient has mild chronic small vessel ischemic changes. CT of the cervical spine shows chronic degenerative changes. No acute traumatic injury. Patient tolerated lance well. Lance need to be removed and 10 to 14 days. Follow-up with PCP. Return precautions explained. Patient stable to discharge home. Laceration Repair Indication: Laceration Location: 2 cm left scalp laceration Consent: Risks, benefits, and alternatives discussed with patient and verbal consent obtained Procedure: The area was prepped and draped in the usual sterile fashion. Local anesthesia was achieved using 1% Lidocaine. The wound was copiously irrigated and cleaned. 6 lance were placed. The estimated blood loss was minimal. The patient tolerated the procedure well without complications. Foreign Material: None Debridement: None Follow-up: Anticipatory guidance, as well as standard post-procedure care, was explained. Return precautions are given. Follow-up visit set for suture removal and evaluation of the laceration. Impression: 1. 2 cm scalp laceration, repaired with lance 2. Closed head injury on Eliquis 3. Mechanical fall Radiography Diagnostic Testing: Clinical Impression(s) from Imaging Studies Brain CT 12/05/24 08:39 IMPRESSION: CHRONIC CHANGES. NO ACUTE FINDINGS. Reading Location: [facility] 12/05/24 08:39 IMPRESSION: DEGENERATIVE CHANGES OF THE CERVICAL SPINE. NO EVIDENCE OF SIGNIFICANT OSSEOUS CENTRAL CANAL OR NEURAL FORAMINAL STENOSIS. Reading Location: [facility] Discharge Plan Triage Chief Complaint: Fall ED Provider: Dc Francis Dx/Rx/DC Orders Clinical Impression: Laceration of scalp, Closed head injury, Fall Instructions: ED Laceration Scalp Stitches or Phoenix, ED Fall Prevention Prescriptions: No Action cholecalciferol (vitamin D3) 25 mcg (1,000 unit) capsule 25 mcg PO DAILY doxepin 50 mg capsule 50 mg PO QHS vitamin B complex Capsule 1 cap PO QDAY Eliquis DVT-PE Treat 30D Start 5 mg (74 tabs) tablets,dose pack 5 mg PO UD hydrocodone-acetaminophen 7.5-325 mg tablet 1 tab PO TID PRN PRN (Reason: pain) levothyroxine 25 mcg tablet 25 mcg PO DAILY tolterodine 2 mg tablet 4 mg PO BID Rx Instructions: per pt dose recently increased to BID Primary Care Provider: Ed Bowman Chi Referrals: Ed Bowman Chi, MD [Primary Care Provider] - 3-5 Days Activity Restrictions/Additional Instructions: Follow-up with primary care physician. Phoenix need to be removed in 10 to 14 days. Print Language: Burkinan Disposition Disposition: Home, Self Care What to do if you have Problems For any increased pain, shortness of breath, bleeding, nausea or vomiting, chestpain, or any unexpected problems, contact your Primary Care Provider. Call [facility] ([phone]) or report to the closest Emergency Room. Call 911 if necessary. 12/05/24 0724 <Electronically signed by Dc Francis DO> Cosigner Signature (if applicable): CC: Dr. Ed Bowman MD ~ Signed [facility] Work Phone: Evaluation noteNo assessment information available [facility] Work Phone: Hospital Discharge instructions Additional Instructions Take the antibiotics until finished. Please continue to follow-up.[facility] Work Phone: Hospital Discharge instructions Additional Instructions Follow-up with your PCP and return for any other concerns.[facility] Work Phone: Hospital Discharge instructions Additional Instructions Follow-up with primary care physician. Phoenix need to be removed in 10 to 14 days.[facility] Work Phone: Reason for referral (narrative)No reason for referral information availableWShelby [facility] Work Phone: Summary Purpose Family History No Family History Records Found Relationship Condition Age at Onset Recorded Date/T wesley Unknown Family History?No pertinent history Unkno wn October 13, 2017 1:55am Family History?No pertinent history Unkno wn October 13, 2017 1:55am Relationship Condition Age at Onset Recorded Date/T ewsley mother Myocardial infarction Unknown sister Diabetes mellitus Unknown Malignant neoplasm Unknown father Malignant neoplasm Unknown Advance Directives No Advanced Directives Records Found Advance Directive Response Recorded Date/ Time Living Will No February 21 12:17pm Power of Stacker No February 21 12:17pm Advance Directive Response Recorded Date/ Time Living Will No April 27 11:58am Power of Stacker No April 27, 2022 11:58am Advance Directive Response Recorded Date/ Time Living Will No January 30, 2023 12:20pm Power of Stacker No January 30 12:20pm Advance Directive Response Recorded Date/ Time Living Will No January 30, 2023 11:20am Power of Stacker No January 30 11:20am Advance Directive Response Recorded Date/ Time Living Will Yes March 12 3:38pm Power of Stacker Yes March 12, 2024 3:38pm Living Will Yes January 10, 2024 1 0:07am Power of Stacker Yes January 10, 2024 10:07am Living Will No June 04 6:44pm Power of Stacker No June 04, 2024 6:44pm Living Will No September 16, 2024 12:00pm Power of Stacker No September 16 12:00pm Advance Directive Response Recorded Date/ Time Living Will Yes March 12 4:38pm Power of Stacker Yes March 12, 2024 4:38pm Living Will Yes January 10, 2024 1 1:07am Power of Stacker Yes January 10, 2024 11:07am Living Will No June 04 7:44pm Power of Stacker No June 04, 2024 7:44pm Living Will No September 16, 2024 1:00pm Power of Stacker No September 16 1:00pm Advance Directive Response Recorded Date/ Time Living Will Yes March 12 4:38pm Do you have a Healthcare Power of Stacker? Yes March 12, 2024 4:38pm Living Will No September 16, 2024 1:00pm Do you have a Healthcare Power of Stacker? No September 16, 2024 1:00pm Do you have a Healthcare Power of Stacker? No November 05, 2024 1:28pm Advance Directive Response Recorded Date/ Time Living Will Yes March 12 4:38pm Do you have a Healthcare Power of Stacker? Yes March 12, 2024 4:38pm Living Will No September 16, 2024 1:00pm Do you have a Healthcare Power of Stacker? No September 16, 2024 1:00pm Do you have a Healthcare Power of Stacker? No November 05, 2024 1:28pm Do you have a Healthcare Power of Stacker? No November 26, 2024 2:49pm Advance Directive Response Recorded Date/ Time Do you have a Healthcare Power of Stacker? No December 05, 2024 8:35am Living Will Yes March 12 4:38pm Do you have a Healthcare Power of Stacker? Yes March 12, 2024 4:38pm Living Will No September 16, 2024 1:00pm Do you have a Healthcare Power of Stacker? No September 16, 2024 1:00pm Do you have a Healthcare Power of Stacker? No November 05, 2024 1:28pm Do you have a Healthcare Power of Stacker? No November 26, 2024 2:49pm Chief Complaint and Reason for Visit Chief Complaint INJURY OF HEAD Chief Complaint SCREENING Chief Complaint FALL Chief Complaint FALL [id number] Chief Complaint Admit Date FALLF June 04, 2024 6:29pm [facility] June 05, 2024 2:06pm MED ONC June 05, 2024 2:15pm LEFT LEG DVT June 30, 2024 9:45am DISCUSS US RESULTS & HOLDING BLOOD THINN ERS July 18, 2024 1:15pm HEAD INJURY September 16, 2024 11:5 0am Reason for Visit Admit Date Loose stools June 05, 2024 2:06pm Thromboembolism June 05, 2024 2:06pm Pulmonary embolism and infarction Januar y 2024 1:15pm Chief Complaint Admit Date DISCUSS US RESULTS & HOLDING BLOOD THINN ERS July 18, 2024 1:15pm HEAD INJURY September 16, 2024 11:5 0am [facility] September 25, 2024 12: 20pm MED ONC September 25, 2024 12: 30pm weakness,fall November 05, 2024 1:2 1pm Reason for Visit Admit Date Pulmonary embolism and infarction Januar y 2024 1:15pm Thromboembolism September 25, 2024 12: 20pm Chief Complaint Admit Date HEAD INJURY September 16, 2024 11:5 0am [facility] September 25, 2024 12: 20pm weakness,fall November 05, 2024 1:2 1pm MED ONC November 20, 2024 1:45p m [facility] -SWITCHED TO DR Martinez November 20 2:06pm fall November 26, 2024 2:13p m Reason for Visit Admit Date Thromboembolism September 25, 2024 12: 20pm Pulmonary embolism and infarction November 202024 2:06pm Chief Complaint Admit Date HEAD INJURY September 16, 2024 11:5 0am [facility] September 25, 2024 12: 20pm weakness,fall November 05, 2024 1:2 1pm MED ONC November 20, 2024 1:45p m [facility] -SWITCHED TO DR Martinez November 20 2:06pm fall November 26, 2024 2:13p m SCREENING November 29, 2024 10:29 am fall December 05, 2024 8:31a m Additional Source Comments INFORMATION SOURCE (unrecogn ized section and content) DATE CREATED AUTHOR 08/24/2021 [facility] DATE CREATED AUTHOR AUTHOR'S ORGANIZ ATION 08/28/2021 [facility] DATE CREATED AUTHOR AUTHOR'S ORGANIZ ATION 11/26/2024 [facility] DATE CREATED AUTHOR AUTHOR'S ORGANIZ ATION 12/12/2024 [facility] Goals (unrecognized section and content) Goals may be documented in a n alternate sectionGoals may be documented in an alternate sectionGoals may be documented in an alternate sectionGoals may be documented in an alternate sectionGoals may be documented in an alternate sectionGoals may be documented in an alternate sectionGoals may be documented in an alternate sectionGoals may be documented in an alternate sectionGoals may be documented in an alternate sectionGoals may be documented in an alternate sectionGoals may be documented in an alternate sectionGoals may be documented in an alternate sectionGoals may be documented in an alternate sectionGoals may be documented in an alternate sectionGoals may be documented in an alternate sectionGoals may be documented in an alternate section Care Teams (unrecognized sec tion and content) Team Status: Active Member Role Status Dates Dr. Ed Bowman MD Family Provider Active Dr. Ed Bowman MD Primary Care Provider Active Team Status: Active Member Role Status Dates Dr. Ed Bowman MD Primary Care Provider Active Ed Bowman MD Attending Provider Active Team Status: Inactive Member Role Status Dates Dr. Ed Bowman MD Primary Care Provider, Attending Provider Active Team Status: Inactive Member Role Status Dates Dr. Ed Bowman MD Primary Care Provider Active Ed Bowman MD Attending Provider Active Team Status: Inactive Member Role Status Dates Dr. Ed Bowman MD Primary Care Provider Active Dr. Kale Wallace MD Attending Provider Active Team Status: Inactive Member Role Status Dates Dr. Ed Bowman MD Primary Care Provider Active Dr. Isak Montana DO Attending Provider, Emergency Provider Active Team Status: Inactive Member Role Status Dates Dr. Ed Bowman MD Primary Care Provi gail, Attending Provider, Referring Provider Active Team Status: Active Member Role Status Dates Dr. Ed Bowman MD Primary Care Provider Active Team Status: Inactive Member Role Status Dates Dr. dE Bowman MD Primary Care Provider Active Start: June 04, 2024 End: June 04, 2024 Chance Nieto MD Attending Provider Active Star t: June 04, 2024 End: June 04, 2024 Chance Nieto MD Emergency Provider Active Star t: June 04, 2024 End: June 04, 2024 Team Status: Inactive Member Role Status Dates Dr. Ed Bowman MD Primary Care Provider Active Start: June 05, 2024 End: June 05, 2024 Dr. Ed Bowman MD Referring Provider Active Start: June 05, 2024 End: June 05, 2024 Dr. Nelson Hobson MD Attending Provider Active S tart: June 05, 2024 End: June 05, 2024 Team Status: Active Member Role Status Dates Dr. Ed Bowman MD Primary Care Provider Active Start: June 05, 2024 Dr. Nelson Hobson MD Attending Provider Active S tart: June 05, 2024 Dr. Nelson Hobson MD Referring Provider Active S tart: June 05, 2024 Team Status: Inactive Member Role Status Dates Dr. Ed Bowman MD Primary Care Provider Active Start: June 08, 2024 End: June 08, 2024 Dr. Nelson Hobson MD Attending Provider Active S tart: June 08, 2024 End: June 08, 2024 Dr. Nelson Hobson MD Referring Provider Active S tart: June 08, 2024 End: June 08, 2024 Team Status: Inactive Member Role Status Dates Dr. Ed Bowman MD Primary Care Provider Active Start: June 13, 2024 End: June 13, 2024 Dr. Ed Bowman MD Attending Provider Active Start: June 13, 2024 End: June 13, 2024 Dr. Ed Bowman MD Referring Provider Active Start: June 13, 2024 End: June 13, 2024 Team Status: Inactive Member Role Status Dates Dr. Ed Bowman MD Primary Care Provider Active Start: June 30, 2024 End: June 30, 2024 CROW Nielson Attending Provider Active Star t: June 30, 2024 End: June 30, 2024 CROW Nielson Referring Provider Active Star t: June 30, 2024 End: June 30, 2024 Team Status: Active Member Role Status Dates Dr. Ed Bowman MD Primary Care Provider Active Start: June 30, 2024 Dr. Neptali Duran MD Attending Provider Active S tart: June 30, 2024 CROW Nielson Referring Provider Active Star t: June 30, 2024 Team Status: Inactive Member Role Status Dates Dr. Ed Bowman MD Primary Care Provider Active Start: July 18, 2024 End: July 18, 2024 Dr. Ed Bowman MD Referring Provider Active Start: July 18, 2024 End: July 18, 2024 CROW Nielson Attending Provider Active Star t: July 18, 2024 End: July 18, 2024 Team Status: Active Member Role Status Dates Dr. Ed Bowman MD Primary Care Provider Active Start: September 12, 2024 Dr. Ed Bowman MD Attending Provider Active Start: September 12, 2024 Team Status: Inactive Member Role Status Dates Dr. Ed Bowman MD Primary Care Provider Active Start: September 16, 2024 End: September 16, 2024 Dr. Samia Pelaez DO Emergency Provider Active S tart: September 16, 2024 End: September 16, 2024 Team Status: Inactive Member Role Status Dates Dr. Ed Bowman MD Primary Care Provider Active Start: September 12, 2024 End: September 12, 2024 Dr. Ed Bowman MD Attending Provider Active Start: September 12, 2024 End: September 12, 2024 Team Status: Inactive Member Role Status Dates Dr. Ed Bowman MD Primary Care Provider Active Start: September 16, 2024 End: September 16, 2024 Dr. Samia Pelaez DO Attending Provider Active S tart: September 16, 2024 End: September 16, 2024 Dr. Samia Pelaez DO Emergency Provider Active S tart: September 16, 2024 End: September 16, 2024 Team Status: Inactive Member Role Status Dates Dr. Ed Bowman MD Primary Care Provider Active Start: September 25, 2024 End: September 25, 2024 Dr. Ed Bowman MD Referring Provider Active Start: September 25, 2024 End: September 25, 2024 Dr. Nelson Hobson MD Attending Provider Active S tart: September 25, 2024 End: September 25, 2024 Team Status: Active Member Role Status Dates Dr. Ed Bowman MD Primary Care Provider Active Start: September 25, 2024 Dr. Nelson Hobson MD Attending Provider Active S tart: September 25, 2024 Dr. Nelson Hobson MD Referring Provider Active S tart: September 25, 2024 Team Status: Inactive Member Role Status Dates Dr. Ed Bowman MD Primary Care Provider Active Start: November 05, 2024 End: November 05, 2024 Dr. Yue Gonzalez DO Emergency Provider Active Start: November 05, 2024 End: November 05, 2024 Team Status: Inactive Member Role Status Dates Dr. Ed Bowman MD Attending Provider Active Start: November 21, 2024 End: November 21, 2024 Dr. Ed Bowman MD Referring Provider Active Start: November 21, 2024 End: November 21, 2024 Team Status: Inactive Member Role Status Dates Dr. Ed Bowman MD Primary Care Provider Active Start: November 05, 2024 End: November 05, 2024 Dr. Yue Gonzalez DO Attending Provider Active Start: November 05, 2024 End: November 05, 2024 Dr. Yue Gonzalez DO Emergency Provider Active Start: November 05, 2024 End: November 05, 2024 Team Status: Inactive Member Role Status Dates Dr. Ed Bowman MD Primary Care Provider Active Start: November 09, 2024 End: November 09, 2024 Dr. Ed Bowman MD Attending Provider Active Start: November 09, 2024 End: November 09, 2024 Dr. Ed Bowman MD Referring Provider Active Start: November 09, 2024 End: November 09, 2024 Team Status: Active Member Role Status Dates Dr. Ed Bowman MD Primary Care Provider Active Start: November 20, 2024 Dr. Nelson Hobson MD Attending Provider Active S tart: November 20, 2024 Dr. Nelson Hobson MD Referring Provider Active S tart: November 20, 2024 Team Status: Inactive Member Role Status Dates Dr. Ed Bowman MD Primary Care Provider Active Start: November 20, 2024 End: November 20, 2024 Dr. Ed Bowman MD Referring Provider Active Start: November 20, 2024 End: November 20, 2024 Dr. Ke Saeed MD Attending Provider Active Start: November 20, 2024 End: November 20, 2024 Team Status: Inactive Member Role Status Dates Dr. Ed Bowman MD Primary Care Provider Active Start: November 26, 2024 End: November 26, 2024 Dr. Ryan Akers DO Emergency Provider Active Start: November 26, 2024 End: November 26, 2024 Team Status: Inactive Member Role Status Dates Dr. Ed Bowman MD Primary Care Provider Active Start: November 26, 2024 End: November 26, 2024 Dr. Ryan Akers DO Attending Provider Active Start: November 26, 2024 End: November 26, 2024 Dr. Ryan Akers DO Emergency Provider Active Start: November 26, 2024 End: November 26, 2024 Team Status: Active Member Role Status Dates Dr. Ed Bowman MD Primary Care Provider Active Start: November 29, 2024 Dr. Ke Saeed MD Attending Provider Active Start: November 29, 2024 Dr. Ke Saeed MD Referring Provider Active Start: November 29, 2024 Team Status: Inactive Member Role Status Dates Dr. Ed Bowman MD Primary Care Provider Active Start: December 05, 2024 End: December 05, 2024 Dr. Dc Francis DO Emergency Provider Activ e Start: December 05, 2024 End: December 05, 2024 Team Status: Inactive Member Role Status Dates Dr. Ed Bowman MD Primary Care Provider Active Start: November 29, 2024 End: November 29, 2024 Dr. Ke Saeed MD Attending Provider Active Start: November 29, 2024 End: November 29, 2024 Dr. Ke Saeed MD Referring Provider Active Start: November 29, 2024 End: November 29, 2024 FOR RECORDS PERTAINING TO PATIENTS WHO ARE [...] BE BASED ON THE PRIMARY CLINICAL RECORDS. [facility] provides no warranty or guarantee of the accuracy or completeness of information in this document.
== END | disposition home or self-care (01) ==
LOC: CT 11:02
PROVIDERS: PCP Family Medicine Geriatric Medicine; Referring Provider Family Medicine Geriatric Medicine; Visit Provider Family Medicine Geriatric Medicine
DX: S09.90XA Unspecified injury of head, initial encounter (principal)
CPT/HCPCS: 70450

== ENCOUNTER 2025-01-01 13:42 | Emergency (ER) | payer MEDICARE, SELFPAY ==
[2025-01-01 13:43] VITALS: PULSE 103; RESP 16; TEMP 36.8; O2SAT 100; BMI 33.4
--- NOTE | 2025-01-01 14:04 | EX.ED.GENINJ ---
HPI History of Present Illness Chief Complaint: Head Injury Detail of Chief Complaint: Head injury Informant: patient Narrative Narrative: Patient presents the emergency department with closed head injury after a fall today. Patient states that her foot got stuck in the floor and she fell backward striking her head on the floor. She is on Eliquis. Patient states that she has a bad left knee and she was going to get an injection in her knee today but they made her come in and get evaluated before they could do the injection. Patient denies loss of consciousness today. She had a fall several weeks ago and sustained laceration to her scalp and she has been having some neck pain since that time as well. Denies any other injuries. She has been ambulatory since the fall. [facility] Medical History DVT (deep venous thrombosis) Staphylococcus aureus infection Macular degeneration Bilateral pulmonary embolism Depression History of kidney stones Acute calculous cholecystitis Laceration of left index finger Pulmonary emboli Hypoxia Elevated troponin Pulmonary embolism and infarction Fracture of left foot Episode of syncope Fibromyalgia Anxiety Home Medications ?Medication ?Instructions ?Recorded ?Last Taken ?Type hydrocodone 7.5 mg-acetaminophen 1 tab PO TID PRN PRN pain 12/15/23 03/12/24 10:00 History 325 mg tablet levothyroxine 25 mcg tablet 25 mcg PO DAILY thyroid 12/15/23 03/11/24 History cholecalciferol (vitamin D3) 25 25 mcg PO DAILY supplement 02/23/24 03/06/24 History mcg (1,000 unit) capsule doxepin 50 mg capsule 50 mg PO QHS 07/18/24 Unknown History vitamin B complex 1 cap PO QDAY 07/18/24 Unknown History apixaban 5 mg (74 tabs) tablets in 5 mg PO UD 12/05/24 Unknown History a dose pack (Eliquis DVT-PE Treat 30D Start) tolterodine 4 mg capsule,extended 4 mg PO BID 01/01/25 Unknown History release 24 hr Allergy/AdvReac Type Severity Reaction Status Date / Time No Known Allergies Allergy Verified 12/05/24 08:36 Family History Mother Myocardial infarction Sister Diabetes Cancer Sister No problems noted. Father Cancer Surgical History S/P tonsillectomy S/P appendectomy S/P excision of ganglion cyst History of partial hysterectomy History of cholecystectomy Social History Smoking Status: Never smoker alcohol intake: never substance use type: does not use ROS ROS ED Review of Systems ROS Unobtainable: other Constitutional Constitutional ED: Reports lethargy; Denies chills, fever(s), sweats or weight loss Eyes Eyes: Denies blurry vision, change in vision or diplopia ENT ENT ED: Reports other Details: Head injury ; Denies rhinorrhea or sore throat Cardiovascular Cardiovascular: Denies chest pain, orthopnea or racing heartbeat Respiratory/Chest Respiratory/Chest: Reports dyspnea and dyspnea on exertion; Denies cough, orthopnea or sputum Gastrointestinal Gastrointestinal: Denies abdominal pain, diarrhea, nausea or vomiting Genitourinary Genitourinary ED: Denies dysuria, hematuria or urinary frequency Musculoskeletal Musculoskeletal: Reports neck pain; Denies arthralgias, back pain or myalgias Integumentary Denies abscess, Abrasions or rash Neurologic Neurologic: Denies headache(s) or weakness Psychiatric Psychiatric: Denies anxiety, depression or suicidal thoughts Endocrine Endocrinology: Denies polydipsia, polyphagia or polyuria Hematologic/Lymphatic Hematologic/Lymphatic: Denies easy bleeding, easy bruising or lymphadenopathy Allergic/Immunologic Allergic/Immunologic ED: Denies mouth swelling, tongue swelling or urticaria EXAM Physical Exam Const Vital Signs: 01/01/25 13:43 01/01/25 13:43 01/01/25 14:43 Temperature 98.2 F Temperature Source Temporal Pulse Rate 103 H 89 Respiratory Rate 16 16 Respiratory Effort Normal Non-Labored Respiratory Depth Normal Respiratory Pattern Normal Blood Pressure 173/88 H Blood Pressure Mean 116 Pulse Ox 100 97 Oxygen Delivery Method Room Air Room Air Room Air Positive well nourished and well developed General Appearance ED: well developed and NAD HEENT Reports TM's clear and moist mucous membranes HEENT Narrative: Patient has a posterior scalp hematoma on the right occipital region. No bony depressions noted. normocephalic and atraumatic; Negative for trauma or tenderness Tympanic Membrane ED: Yes TM's clear Eyes PERRL and EOMs intact bilaterally General Eye ED: Negative for pale conjunctiva or scleral icterus Neck no lymphadenopathy, supple and no JVD Neck Narrative: Mild diffuse tenderness to the C-spine. No obvious deformity. No bony step-offs or depressions. General: tenderness Chest Wall inspection of chest normal and palpation of chest normal Chest: Negative for tenderness Resp normal respiratory effort and clear to auscultation bilaterally Effort and Inspection: Negative for respiratory distress or pain with movement Auscultation: Negative for rhonchi, wheezes or diminished lung sounds Cardio regular rate, regular rhythm, S1 normal heart sound, S2 normal heart sound and no murmurs Peripheral Pulses: pulses 2+ throughout GI normal to inspection, nondistended, normoactive bowel sounds, soft to palpation, non-tender, non-distended and no masses Back/Spine no CVA tenderness and no thoracic nor lumbar tenderness Extremity normal to inspection General Extremety ED: Negative for edema General Extremity: Negative for edema Neuro oriented x3, CN's II-XII intact bilaterally, no sensory deficits noted and gait normal Sensorium / Orientation: awake, alert, oriented to person, oriented to place and oriented to time Motor Exam: strength 5/5 throughout and strength abnormal Psych mental status grossly normal Skin no rashes or lesions noted and no wounds MDM MDM MDM Narrative Medical decision making narrative: Patient presents with fall and head injury. Patient on Eliquis. She does have a hematoma to the posterior occiput. CT scan of the brain without contrast showed no intracranial hemorrhage or skull fracture. Patient also had a CT of the C-spine that showed degenerative changes without fractures. At this point she will be discharged to home and advised to follow-up with primary care physician within next 3 to 5 days. Patient to return if worsening headache, difficulty balance or speech or vomiting or condition should worsen anyway. Lab Data Attestation: I reviewed the patient's lab results. Radiography Diagnostic Testing: Clinical Impression(s) from Imaging Studies Brain CT 01/01/25 14:20 IMPRESSION: No intracranial hemorrhage is seen. Stable examination. Reading Location: [facility] 01/01/25 14:20 IMPRESSION: DEGENERATIVE CHANGES OF THE CERVICAL SPINE. NO EVIDENCE OF SIGNIFICANT OSSEOUS CENTRAL CANAL OR NEURAL FORAMINAL STENOSIS. Reading Location: [id number] Discharge Plan Triage Chief Complaint: Head Injury ED Provider: Samia Pelaez Dx/Rx/DC Orders Clinical Impression: Closed head injury, Fall Instructions: ED Head Injury (Adult) Prescriptions: No Action cholecalciferol (vitamin D3) 25 mcg (1,000 unit) capsule 25 mcg PO DAILY doxepin 50 mg capsule 50 mg PO QHS vitamin B complex Capsule 1 cap PO QDAY Eliquis DVT-PE Treat 30D Start 5 mg (74 tabs) tablets,dose pack 5 mg PO UD tolterodine 4 mg capsule,extended release 24hr 4 mg PO BID hydrocodone-acetaminophen 7.5-325 mg tablet 1 tab PO TID PRN PRN (Reason: pain) levothyroxine 25 mcg tablet 25 mcg PO DAILY Primary Care Provider: Ed Bowman Chi Referrals: Ed Bowman Chi, MD [Primary Care Provider] - 3-5 Days Print Language: Korean Disposition Disposition: Home, Self Care
--- NOTE | 2025-01-01 14:20 | CT_ITS ---
PROCEDURE: SPINE CERVICAL WITHOUT CONTRAS 01/01/2025 REASON FOR EXAM: FALL TECHNIQUE: SPINE CERVICAL WITHOUT CONTRAS Coronal and Sagittal reconstruction series were provided. CONTRAST: None One or more dose reduction techniques were used (e.g., Automated exposure control, adjustment of the mA and/or kV according to patient size, use of iterative reconstruction technique RADIATION DOSE SUMMARY: CTDlvol: 18.83 mGy DLP: 402.77 mGycm COMPARISON: Prior study dated December 05, 2024. FINDINGS: Alignment: Straightening of the normal cervical lordosis most likely secondary to muscle spasm. Vertebrae: Spondylosis. Soft Tissues: Unremarkable Other: C1-2: Unremarkable C2-3: Facet joint osteoarthritis. No evidence of spinal or neural foraminal stenosis. C3-4: Mild degree of disc space narrowing. C4-5: Mild degree of disc space narrowing. Facet joint osteoarthritis and hypertrophy. No evidence of spinal stenosis. C5-6: Moderate degree of disc space narrowing. Spondylosis. Uncovertebral arthrosis. Mild bilateral neural foraminal stenosis. C6-7: Unremarkable C7-T1: Unremarkable CT/Spine Cervical without Contras IMPRESSION: DEGENERATIVE CHANGES OF THE CERVICAL SPINE. NO EVIDENCE OF SIGNIFICANT OSSEOUS CENTRAL CANAL OR NEURAL FORAMINAL STENOSIS. Reading Location: [facility]
--- NOTE | 2025-01-01 14:20 | CT_ITS ---
PROCEDURE: BRAIN/HEAD WITHOUT CONTRAST 01/01/2025 REASON FOR EXAM: FALL TECHNIQUE: BRAIN/HEAD WITHOUT CONTRAST Coronal and Sagittal reconstruction series were provided. One or more dose reduction techniques were used (e.g., Automated exposure control, adjustment of the mA and/or kV according to patient size, use of iterative reconstruction technique. RADIATION DOSE SUMMARY: DLP: 1275.45 mGycm COMPARISON: Head CT of 12/12/2024. FINDINGS: Brain: Stable appearance of bilateral cerebral and pontine white matter hypodensities, consistent with chronic ischemic changes of small-vessel disease. Stable left cerebellar lacunar infarction. Stable right thalamic lacunar infarction. No intracranial hemorrhage, mass, or mass effect is seen. No extra-axial fluid collection is noted. No orbital pathology is seen. CSF Spaces: Normal Sinuses/Mastoids: Clear at visualized levels Bones: No fracture site is seen. CT/Brain/Head without Contrast IMPRESSION: No intracranial hemorrhage is seen. Stable examination. Reading Location: [place] [id number]
[2025-01-01 14:43] VITALS: BP 173/88; PULSE 89; RESP 16; O2SAT 97
== END 2025-01-01 15:14 | disposition home or self-care (01) ==
PROVIDERS: Emergency Provider Emergency Medicine; PCP Family Medicine Geriatric Medicine; Visit Provider Emergency Medicine
DX: S00.03XA Contusion of scalp, initial encounter (principal); W01.0XXA Fall on same level from slipping, tripping and stumbling without subsequent striking against object, initial encounter; F41.9 Anxiety disorder, unspecified; F32.A Depression, unspecified; M79.7 Fibromyalgia; Z79.01 Long term (current) use of anticoagulants; Z86.718 Personal history of other venous thrombosis and embolism; Z86.711 Personal history of pulmonary embolism; Z79.899 Other long term (current) drug therapy
CPT/HCPCS: 70450; 72125; 99282

== ENCOUNTER 2025-02-02 14:23 | Emergency (ER) | payer MEDICARE, SELFPAY ==
[2025-02-02 14:24] VITALS: BP 136/92; PULSE 96; RESP 18; TEMP 37; O2SAT 99
--- NOTE | 2025-02-02 15:05 | EDS_ITS ---
HPI History of Present Illness Chief Complaint: General Illness Informant: patient Onset/Context/Timing Onset: Days (3) Context: Gradual Onset Timing: Continuous Quality: Lightheaded Location: Generalized Worsened by: Nothing Relieved by: Air conditioning Narrative Narrative: Patient presents with lightheadedness and dizziness that has been constant for the past 3 days. Patient states she feels lightheaded, like she might pass out. Patient denies any chest pain or shortness of breath. Patient denies any nausea or vomiting. Patient states she has had some black stools over the past couple days. Patient states nothing makes it worse. Patient states that it ge ts better when she is able to get into air conditioning. Patient states she has had her eye medications changed recently. Patient states she also has a possible toe fracture of her left little toe. Patient states she also needs a prescription for her pain pills. Patient does not know the name of her pain pills however. Patient states they are 40 mg twice daily. [facility] Medical History DVT (deep venous thrombosis) Staphylococcus aureus infection Macular degeneration Bilateral pulmonary embolism Depression History of kidney stones Acute calculous cholecystitis Laceration of left index finger Pulmonary emboli Hypoxia Elevated troponin Pulmonary embolism and infarction Fracture of left foot Episode of syncope Fibromyalgia Anxiety Home Medications ?Medication ?Instructions ?Recorded ?Last Taken ?Type hydrocodone 7.5 mg-acetaminophen 1 tab PO TID PRN PRN pain 12/15/23 03/12/24 10:00 History 325 mg tablet levothyroxine 25 mcg tablet 25 mcg PO DAILY thyroid 03/11/24 History cholecalciferol (vitamin D3) 25 25 mcg PO DAILY supple ment 02/23/24 03/06/24 History mcg (1,000 unit) capsule doxepin 50 mg capsule 50 mg PO QHS 07/18/24 Unknow n History vitamin B complex 1 cap PO QDAY 07/18/24 Unkno wn History apixaban 5 mg (74 tabs) tablets in 5 mg PO UD 12/05/24 Unknown History a dose pack (Eliquis DVT-PE Treat 30D Start) tolterodine 4 mg capsule,extended 4 mg PO BID 01/01/25 Unknown History release 24 hr Allergy/AdvReac Type Severity Reaction Status Date / Time No Known Allergies Allergy Verified 02/02/25 14:26 Family History Mother Myocardial infarction Sister Diabetes Cancer Sister No problems noted. Father Cancer Surgical History S/P tonsillectomy S/P appendectomy S/P excision of ganglion cyst History of partial hysterectomy History of cholecystectomy Social History Smoking Status: Never smoker alcohol intake: never substance use type: does not use ROS ROS ED Constitutional Constitutional ED: Denies chills or fever(s) Eyes Eyes: Denies blurry vision or change in vision ENT ENT ED: Denies rhinorrhea or sore throat Cardiovascular Cardiovascular: Denies chest pain or palpitations Respiratory/Chest Respiratory/Chest: Denies cough or dyspnea Gastrointestinal Gastrointestinal: Reports melena; Denies abdominal pain, nausea or vomiting Genitourinary Genitourinary ED: Denies dysuria or hematuria Musculoskeletal Musculoskeletal: Denies back pain or neck pain Integumentary Denies abscess or rash Neurologic Neurologic: Denies headache(s) or weakness Allergic/Immunologic Allergic/Immunologic ED: Denies mouth swelling or urticaria EXAM Physical Exam Const Vital Signs: 02/02/25 14:24 02/02/25 16:24 02/02/25 16:34 Temperature 98.6 F Temperature Source Oral Pulse Rate 96 84 Pulse Rate [Lying] Pulse Rate [Sitting (for 1 minute prior to obtaining)] Pulse Rate [Standing (for 1 minute prior to obtaining)] Respiratory Rate 18 20 H Respiratory Effort Normal Blood Pressure 136/92 H 150/80 H Blood Pressure [Lying] Blood Pressure [Sitting (for 1 minute prior to obtaining)] Blood Pressure [Standing (for 1 minute prior to obtaining)] Blood Pressure Mean 106 103 Blood Pressure Mean [Lying] Blood Pressure Mean [Sitting (for 1 minute prior to obtaining)] Blood Pressure Mean [Standing (for 1 minute prior to obtaining)] Pulse Ox 99 94 Oxygen Delivery Method Room Air Room Air 02/02/25 16:38 02/02/25 18:00 02/02/25 18:32 Temperature 98.6 F Temperature Source Pulse Rate 87 87 Pulse Rate [Lying] 89 Pulse Rate [Sitting (for 1 minute prior to obtaining)] 84 Pulse Rate [Standing (for 1 minute prior to obtaining)] 100 Respiratory Rate 24 H 24 H Respiratory Effort Blood Pressure 161/93 H 161/93 H Blood Pressure [Lying] 156/76 H Blood Pressure [Sitting (for 1 minute prior to obtaining)] 135/86 H Blood Pressure [Standing (for 1 minute prior to obtaining)] 141/105 H Blood Pressure Mean 115 115 Blood Pressure Mean [Lying] 102 Blood Pressure Mean [Sitting (for 1 minute prior to obtaining)] 102 Blood Pressure Mean [Standing (for 1 minute prior to obtaining)] 117 Pulse Ox 97 97 Oxygen Delivery Method Room Air Positive well nourished and well developed General Appearance ED: well developed and NAD HEENT Reports moist mucous membranes Neck supple and no JVD Resp normal respiratory effort and clear to auscultation bilaterally Cardio regular rate and regular rhythm GI non-tender and non-distended Palpation: soft Extremity Extremity Narrative: There is some mild edema and ecchymosis over the proximal phalanx of the left fifth digit and distal fifth metatarsal. There is no deformity noted. There is no bony crepitance or step-off. Capillary refill was less than 2 seconds in all digits. Sensation was intact to light touch in all digits. Pedal pulses are equal bilaterally. Neuro oriented x3, CN's II-XII intact bilaterally and no sensory deficits noted Sensorium / Orientation: alert Motor Exam: strength 5/5 throughout Psych mental status grossly normal MDM MDM MDM Narrative Medical decision making narrative: Differential diagnosis includes gastrointestinal bleeding, anemia, electrolyte abnormality, dehydration, urinary tract infection, toe fracture, contusion, and anxiety. CBC will be obtained to assess for leukocytosis and anemia. Basic metabolic profile will be obtained to assess for electrolyte abnormality and renal function. PT with INR and PTT will be obtained to assess for coagulopathy. Stool for Hemoccult will be obtained to assess for occult blood. Urinalysis will be obtained to assess for urinary tract infection and hematuria. X-rays of the left foot will be obtained to assess for fracture. Orthostatic vital signs will be obtained to assess for orthostatic hypotension and hypovolemia. History & Record Review Additional record(s) reviewed:: Prior ED visit and Prior labs Lab Data Attestation: I reviewed the patient's lab results. Lab results narrative: CBC was reviewed. There is a mild leukocytosis of 15.1. Hemoglobin was stable at 14.8 and hematocrit was 44.6. Platelets were normal. PT with INR and PTT were reviewed. Pro time was slightly elevated at 16 and INR is 1.3. PTT was 23.8. Basic metabolic profile was reviewed. Sodium was slightly elevated at 146. BUN was slightly elevated at 27. Creatinine was normal at 1.11. The remainder was essentially within normal limits. Stool for occult blood was reviewed and was positive. Labs: Laboratory Results - last 24 hr 02/02/25 15:25 WBC 15.1 H RBC 4.98 Hgb 14.8 Hct 44.6 MCV 89.6 MCH 29.7 MCHC 33.2 RDW Std Deviation 44.4 H RDW Coeff of Larry 13.5 Plt Count 284 MPV 9.7 Immature Gran % (Auto) 2.700 H Neut % (Auto) 61.9 Lymph % (Auto) 25.1 [place] % (Auto) 9.4 Eos % (Auto) 0.4 Baso % (Auto) 0.5 Absolute Neuts (auto) 9.3 H Absolute Lymphs (auto) 3.79 Nucleated RBC % 0 PT 16.0 H INR 1.3 APTT 23.8 L Sodium 146 H Potassium 3.6 Chloride 106 Carbon Dioxide 25.9 Anion Gap 14 BUN 27 H Creatinine 1.11 Est GFR (MDRD) Non-Af 52 L BUN/Creatinine Ratio 24.3 H Glucose 116 H Calcium 9.6 Radiography Diagnostic Testing: Clinical Impression(s) from Imaging Studies Foot X-Ray 02/02/25 15:42 IMPRESSION: No acute abnormality. Fracture deformity of the 5th metatarsal status post healing. Odugrpkt-hy-pzjotx osteoarthritis 1st MTP joint. Reading Location: [id number] X-rays of the left foot were obtained. There are 3 views. On my independent interpretation, there is no acute fracture. There is a old fifth metatarsal fracture. Radiologist also interpreted the x-rays and agrees. Treatment and Re-Evaluation :: Patient was unable to provide a urine assessment for urinalysis. Patient did not want to wait to have urinalysis done. Patient stated she needed to leave and take care of things at home. Patient was instructed to return if worse in any way. Patient was instructed to follow-up with her primary care physician. Discharge Plan Triage Chief Complaint: General Illness ED Provider: Schwiger,Neptali Dx/Rx/DC Orders Clinical Impression: Heme positive stool, Contusion of left foot Prescriptions: No Action cholecalciferol (vitamin D3) 25 mcg (1,000 unit) capsule 25 mcg PO DAILY doxepin 50 mg capsule 50 mg PO QHS vitamin B complex Capsule 1 cap PO QDAY Eliquis DVT-PE Treat 30D Start 5 mg (74 tabs) tablets,dose pack 5 mg PO UD tolterodine 4 mg capsule,extended release 24hr 4 mg PO BID hydrocodone-acetaminophen 7.5-325 mg tablet 1 tab PO TID PRN PRN (Reason: pain) levothyroxine 25 mcg tablet 25 mcg PO DAILY Primary Care Provider: Ed Bowman Chi Referrals: Ed Bowman Chi, MD [Primary Care Provider] - 3-5 Days Print Language: Maori Disposition Disposition: Elopement Discharge Date/Time: 02/02/25 18:32
--- NOTE | 2025-02-02 15:42 | RAD_ITS ---
PROCEDURE: FOOT MIN 3 VIEWS 02/02/2025 REASON FOR EXAM: INJURY/PAIN TECHNIQUE: FOOT MIN 3 VIEWS COMPARISON: None FINDINGS: Bones: Bone demineralization. No acute fracture. Deformity from old, healed fracture at the mid 5th metatarsal diaphysis. Calcaneal spur is present. Joints: Mild joint space narrowing interphalangeal joint. Pvzhsruu-xu-bqebte joint space narrowing, sclerosis with marginal spurring 1st MTP joint. Soft tissues: Atherosclerosis of the vascular structures. RAD/Foot min 3 Views IMPRESSION: No acute abnormality. Fracture deformity of the 5th metatarsal status post healing. Svfoidvf-zn-dgtiic osteoarthritis 1st MTP joint. Reading Location: [id number]
[2025-02-02 15:54] LABS: Hematocrit 44.6 % (37-47); Hemoglobin 14.8 g/dL (12.0-15.0); Immature Granulocytes Count 0.400 X10^3/uL (0.0-0.0); Mean Corp Hgb Conc 33.2 g/dL (32-36); Mean Corpuscular Volume 89.6 fL (81-99); Mean Platelet Vol. 9.7 fl (6.2-12.0); NRBC Flagged by Analyzer 0 % (0-5); Platelet Count 284 K/mm3 (150-450); RBC Distribution Width CV 13.5 % (11.6-14.6); RBC Distribution Width SD 44.4 fl (35.1-43.9); Red Blood Count 4.98 M/mm3 (4.2-5.4); White Blood Count 15.1 K/mm3 (4.4-11.0)
[2025-02-02 16:21] LABS: Partial Thromboplast Time 23.8 Seconds (24.1-36.2); Prothrombin Time (Protime)PT. 16.0 SECONDS (11.7-14.9)
[2025-02-02 16:24] VITALS: BP 150/80; PULSE 84; RESP 20; O2SAT 94
[2025-02-02 16:38] VITALS: BP 135/86; BP 141/105; BP 156/76; PULSE 100; PULSE 84; PULSE 89
[2025-02-02 16:49] LABS: Anion Gap 14 (5-15); BUN 27 mg/dL (4-19); BUN/Creat Ratio 24.3 RATIO (10-20); Calcium,Total 9.6 mg/dL (7.6-11.0); Carbon Dioxide 25.9 mmol/L (21.0-32.0); Chloride 106 mmol/L (98-108); Glucose 116 mg/dL (70-99); Potassium 3.6 mmol/L (3.3-5.1)
[2025-02-02 18:00] VITALS: BP 161/93; PULSE 87; RESP 24; O2SAT 97
--- NOTE | 2025-02-02 18:29 | ED.RN ---
Pt approaches this RN in [facility]. States I have someone unattended at home and I need to leave Dr. Dacosta aware. IV removed.
[2025-02-02 18:32] VITALS: BP 161/93; PULSE 87; RESP 24; TEMP 37; O2SAT 97
== END 2025-02-02 18:32 | disposition left against medical advice (07) ==
LOC: ED 15:23
PROVIDERS: Emergency Provider Emergency Medicine; PCP Family Medicine Geriatric Medicine; Visit Provider Emergency Medicine
DX: K92.1 Melena (principal); S90.32XA Contusion of left foot, initial encounter; D72.829 Elevated white blood cell count, unspecified; R42 Dizziness and giddiness; X58.XXXA Exposure to other specified factors, initial encounter
CPT/HCPCS: 73630; 80048; 82274; 85025; 85610; 85730; 99285; A4216

== ENCOUNTER 2025-03-08 12:58 | Inpatient (IN) | payer MEDICARE, SELFPAY ==
[2025-03-08 12:59] VITALS: BP 161/87; PULSE 85; RESP 15; TEMP 37.1; O2SAT 100; BMI 32.8
[2025-03-08 14:21] LABS: Hematocrit 41.4 % (37-47); Hemoglobin 14.0 g/dL (12.0-15.0); Immature Granulocytes Count 0.120 X10^3/uL (0.0-0.0); Mean Corp Hgb Conc 33.8 g/dL (32-36); Mean Corpuscular Volume 89.2 fL (81-99); Mean Platelet Vol. 9.4 fl (6.2-12.0); NRBC Flagged by Analyzer 0 % (0-5); Platelet Count 241 K/mm3 (150-450); RBC Distribution Width CV 13.6 % (11.6-14.6); RBC Distribution Width SD 43.9 fl (35.1-43.9); Red Blood Count 4.64 M/mm3 (4.2-5.4); White Blood Count 9.3 K/mm3 (4.4-11.0)
--- NOTE | 2025-03-08 14:27 | RAD_ITS ---
PROCEDURE: ELBOW MIN 3 VIEWS 03/08/2025 REASON FOR EXAM: PAIN TECHNIQUE: ELBOW MIN 3 VIEWS Laterality: COMPARISON: None. FINDINGS: Bones: No acute bony abnormalities. Joints: Unremarkable. Soft tissues: Unremarkable. RAD/Elbow min 3 Views IMPRESSION: No acute osseous abnormalities. Reading Location: [id number]
--- NOTE | 2025-03-08 14:27 | RAD_ITS ---
PROCEDURE: WRIST MIN 3 VIEWS 03/08/2025 REASON FOR EXAM: FALL, PAIN TECHNIQUE: WRIST MIN 3 VIEWS Laterality: Right COMPARISON: None. FINDINGS: Bones: No acute bony abnormalities. Joints: Unremarkable. Soft tissues: No soft tissue abnormalities. RAD/Wrist min 3 Views IMPRESSION: No acute osseous abnormalities. Reading Location: [id number]
--- NOTE | 2025-03-08 14:27 | RAD_ITS ---
PROCEDURE: HUMERUS MIN 2 VIEWS 03/08/2025 REASON FOR EXAM: FALL, PAIN TECHNIQUE: HUMERUS MIN 2 VIEWS Laterality: Right COMPARISON: None FINDINGS: Bones: Acute fracture of the surgical neck of the right humerus extending to the greater tubercle. Joints: No dislocations. Soft tissues: No soft tissue abnormalities. RAD/Humerus min 2 Views IMPRESSION: Acute fracture of the surgical neck of the right humerus extending to the great er tubercle. No dislocation of the shoulder joint. Reading Location: [id number]
--- NOTE | 2025-03-08 14:27 | RAD_ITS ---
PROCEDURE: SHOULDER MIN 2 VIEWS 03/08/2025 REASON FOR EXAM: FALL TECHNIQUE: SHOULDER MIN 2 VIEWS Laterality: COMPARISON: None. FINDINGS: Bones: Acute fracture of the surgical neck of the right humerus extending to the greater tubercle. Joints: No dislocations. Soft tissues: Soft tissue swelling surrounding the right shoulder. RAD/Shoulder min 2 Views IMPRESSION: Acute fracture of the surgical neck of the right humerus extending to the great er tubercle. Reading Location: [id number]
--- NOTE | 2025-03-08 14:45 | CT_ITS ---
PROCEDURE: SPINE CERVICAL WITHOUT CONTRAS 03/08/2025 REASON FOR EXAM: HEAD INJURY, PAIN TECHNIQUE: SPINE CERVICAL WITHOUT CONTRAS Coronal and Sagittal reconstruction series were provided. One or more dose reduction techniques were used (e.g., Automated exposure control, adjustment of the mA and/or kV according to patient size, use of iterative reconstruction technique. RADIATION DOSE SUMMARY: CTDlvol: 21.64 mGy DLP: 352.76 mGycm COMPARISON: Prior study dated January 01, 2025. FINDINGS: Alignment: Straightening of the normal cervical lordosis. Vertebrae: No vertebral fracture is seen. Spondylosis at the C5-C6 level. Soft Tissues: Atherosclerotic plaque formation of the basilar artery. Other: C1-2: Unremarkable C2-3: Unremarkable C3-4: Unremarkable C4-5: Moderate degree of disc space narrowing. Uncovertebral arthrosis. No significant stenosis seen. C5-6: Marked degree of disc space narrowing. Spondylosis. Uncovertebral arthrosis. [id number] degree of bilateral neural foraminal stenosis. C6-7: Minimal disc space narrowing. No significant stenosis. C7-T1: Unremarkable CT/Spine Cervical without Contras IMPRESSION: DEGENERATIVE CHANGES OF THE CERVICAL SPINE. NO EVIDENCE OF SIGNIFICANT OSSEOUS CENTRAL CANAL OR NEURAL FORAMINAL STENOSIS. Reading Location: [facility]
--- NOTE | 2025-03-08 14:45 | CT_ITS ---
PROCEDURE: BRAIN/HEAD WITHOUT CONTRAST 03/08/2025 REASON FOR EXAM: HEAD INJURY TECHNIQUE: CT BRAIN/HEAD WITHOUT CONTRAST Coronal and Sagittal reconstruction series were provided. One or more dose reduction techniques were used (e.g., Automated exposure control, adjustment of the mA and/or kV according to patient size, use of iterative reconstruction technique. RADIATION DOSE SUMMARY: DLP: 3292.20 mGycm COMPARISON: PET-CT 01/01/2025. FINDINGS: Brain: No intracranial hemorrhage, mass, or mass effect is seen. No extra-axial fluid collection is noted. Stable appearance of significant bilateral cerebral and pontine white matter changes, consistent with chronic ischemic changes of small-vessel disease. Stable chronic appearing right thalamic lacunar infarction. No orbital pathology is seen. CSF Spaces: Normal, for age Sinuses/Mastoids: A small air-fluid level is seen a diminutive right sphenoid sinus. The remaining paranasal sinuses appear clear. Mastoid air cells appear clear. Bones: No fracture site is seen. CT/Brain/Head without Contrast IMPRESSION: 1. Small right sphenoid sinus air-fluid level, possibly due to acute sinusitis. 2. No intracranial hemorrhage is seen. No acute intracranial process is noted. 3. No fracture site is evident. Reading Location: [facility]
--- NOTE | 2025-03-08 14:45 | CT_ITS ---
PROCEDURE: CT CHEST, ABD, PEL W/CONTRAST 03/08/2025 REASON FOR EXAM: FALL, L RIB PAIN TECHNIQUE: Chest, abdomen and pelvis CT with intravenous contrast. Coronal and Sagittal reconstruction series were provided. One or more dose reduction techniques were used (e.g., Automated exposure control, adjustment of the mA and/or kV according to patient size, use of iterative reconstruction technique. PATIENT PREPARATION: Per protocol ORAL CONTRAST TYPE: None. CONTRAST: Isovue 370 VOLUME: 95mL RADIATION DOSE SUMMARY: CTDlvol: 24.45 mGy DLP: 738.84 mGycm COMPARISON: May 11, 2024. FINDINGS: CT CHEST: Hardware: None Lymph nodes: Small mediastinal lymph nodes. Heart and Vasculature: The heart is nonenlarged. Minimal coronary artery calcification. Lungs and Airways: Mild scarring at the lung bases in the right middle lobe. Pleura: No pleural effusion. Bones: Degenerative changes of the thoracic spine. No rib fracture seen on this examination. Nondisplaced fracture of the surgical neck of the proximal right humerus with extension to the greater and lesser tuberosities. CT ABDOMEN/PELVIS: Liver: Minimal central intrahepatic biliary ductal dilatation. Gallbladder: Surgically absent. Spleen: Mild splenomegaly. Pancreas: Normal size without evidence of mass surrounding inflammation or ductal dilation. Adrenals: Unremarkable Kidneys: Normal renal sizes. No hydronephrosis. Small left renal cysts. Bladder: Unremarkable Reproductive Organs: Prior hysterectomy. Adnexal regions are unremarkable. Bowel: Colonic diverticulosis without diverticulitis. Appendix: The appendix is not identified. There is no inflammatory process identified in the right lower quadrant to suggest appendicitis. Lymph nodes: Unremarkable. Vasculature: Mild diffuse atherosclerotic calcifications are noted. Peritoneum / Retroperitoneum: Unremarkable Bones: Degenerative changes of the spine. CT/CT Chest, Abd, Pel w/Contrast IMPRESSION: Nondisplaced fracture through the surgical neck of the proximal right humerus w ith extension into the greater and lesser tuberosities. No rib fracture. Small left renal cysts and mild splenomegaly. Reading Location: [id number]
[2025-03-08 14:58] VITALS: BP 142/72; PULSE 73; RESP 18; O2SAT 99
--- NOTE | 2025-03-08 15:25 | EX.ED.GENINJ ---
HPI <CROW Cooper - Last Filed: 03/08/25 18:10> History of Present Illness Chief Complaint: Fall Narrative Narrative: Patient presenting today due to a mechanical fall that occurred this morning. She misstepped while going down the stairs and fell down about 5 steps onto her right shoulder. She did hit her head. She is on Eliquis due to a history of PE. No LOC occurred. She reports pain to her right shoulder, left lateral ribs, and a skin tear to her left forearm. Her tetanus is up-to-date. She denies pain to her head neck, back, abdomen, and lower extremities. PFS <CROW Cooper - Last Filed: 03/08/25 18:10> [facility] Medical History DVT (deep venous thrombosis) Staphylococcus aureus infection Macular degeneration Bilateral pulmonary embolism Depression History of kidney stones Acute calculous cholecystitis Laceration of left index finger Pulmonary emboli Hypoxia Elevated troponin Pulmonary embolism and infarction Fracture of left foot Episode of syncope Fibromyalgia Anxiety Home Medications ?Medication ?Instructions ?Recorded ?Last Taken ?Type hydrocodone 7.5 mg-acetaminophen 1 tab PO TID PRN PRN pain 12/15/23 03/12/24 10:00 History 325 mg tablet levothyroxine 25 mcg tablet 25 mcg PO DAILY thyroid 12/15/23 03/11/24 History cholecalciferol (vitamin D3) 25 25 mcg PO DAILY supplement 02/23/24 03/06/24 History mcg (1,000 unit) capsule doxepin 50 mg capsule 50 mg PO QHS 07/18/24 Unknown History vitamin B complex 1 cap PO QDAY 07/18/24 Unknown History apixaban 5 mg (74 tabs) tablets in 5 mg PO UD 12/05/24 Unknown History a dose pack (Eliquis DVT-PE Treat 30D Start) tolterodine 4 mg capsule,extended 4 mg PO BID 01/01/25 Unknown History release 24 hr apixaban 5 mg tablet (Eliquis) 5 mg PO BID 03/08/25 Unknown History losartan 100 mg tablet 100 mg PO QHS 03/08/25 Unknown History pantoprazole 40 mg tablet,delayed 40 mg PO DAILY 03/08/25 Unknown History release Allergy/AdvReac Type Severity Reaction Status Date / Time No Known Allergies Allergy Verified 03/08/25 13:01 Family History Mother Myocardial infarction Sister Diabetes Cancer Sister No problems noted. Father Cancer Surgical History S/P tonsillectomy S/P appendectomy S/P excision of ganglion cyst History of partial hysterectomy History of cholecystectomy Social History Smoking Status: Never smoker alcohol intake: never substance use type: does not use ROS <CROW Cooper - Last Filed: 03/08/25 18:10> ROS ED Constitutional Constitutional ED: Denies chills or fever(s) Cardiovascular Cardiovascular: Denies chest pain Respiratory/Chest Respiratory/Chest: Denies dyspnea Gastrointestinal Gastrointestinal: Denies abdominal pain, nausea or vomiting Musculoskeletal Musculoskeletal: Reports arthralgias; Denies back pain or neck pain Integumentary Reports Abrasions Neurologic Neurologic: Denies headache(s) or paresthesias EXAM <CROW Cooper - Last Filed: 03/08/25 18:10> Physical Exam Const Vital Signs: 03/08/25 12:59 03/08/25 13:02 03/08/25 14:58 Temperature 98.7 F Temperature Source Oral Pulse Rate 85 73 Respiratory Rate 15 18 Respiratory Effort Normal Non-Labored Respiratory Depth Normal Respiratory Pattern Normal Blood Pressure 161/87 H 142/72 H Blood Pressure Mean 111 95 Pulse Ox 100 99 Oxygen Delivery Method Room Air Room Air Room Air 03/08/25 16:00 03/08/25 16:47 Temperature 97.6 F L Temperature Source Pulse Rate 78 69 Respiratory Rate 14 14 Respiratory Effort Respiratory Depth Respiratory Pattern Blood Pressure 156/89 H 137/81 H Blood Pressure Mean 111 99 Pulse Ox 97 96 Oxygen Delivery Method Room Air Positive well nourished, well developed and no apparent distress General Appearance ED: well developed HEENT Reports normocephalic and head/scalp atraumatic Mouth ED: Yes moist mucous membranes normal Eyes PERRL and EOMs intact bilaterally Neck full ROM and supple Neck Narrative: No midline cervical tenderness Chest Wall inspection of chest normal Chest Narrative: Tenderness to palpation to the left lateral ribs, no crepitus, no overlying bruising Resp normal respiratory effort and clear to auscultation bilaterally Cardio regular rate and regular rhythm GI soft to palpation, non-tender, non-distended and no masses Back/Spine normal ROM, normal to inspection and no thoracic nor lumbar tenderness Extremity Extremity Narrative: Decreased range of motion to the right shoulder secondary to pain with tenderness along the length of the right upper extremity, full range of motion to the right elbow and wrist, full range of motion to all 5 fingers of the right hand. Right radial pulse 2+, good cap refill, sensation intact. Neuro oriented x3, CN's II-XII intact bilaterally, moves all extremities, no focal motor deficits and no sensory deficits noted Sensorium / Orientation: awake and alert Psych mental status grossly normal and thought process normal Skin Skin Narrative: Small quarter sized superficial skin tear to the left dorsal mid forearm with no active bleeding <Dr. Narda Duckworth MD - Last Filed: 03/09/25 07:24> Physical Exam Const Vital Signs: 03/08/25 12:59 03/08/25 13:02 03/08/25 14:58 Temperature 98.7 F Temperature Source Oral Pulse Rate 85 73 Respiratory Rate 15 18 Respiratory Effort Normal Non-Labored Respiratory Depth Normal Respiratory Pattern Normal Blood Pressure 161/87 H 142/72 H Blood Pressure Mean 111 95 Pulse Ox 100 99 Oxygen Delivery Method Room Air Room Air Room Air 03/08/25 16:00 03/08/25 16:47 Temperature 97.6 F L Temperature Source Pulse Rate 78 69 Respiratory Rate 14 14 Respiratory Effort Respiratory Depth Respiratory Pattern Blood Pressure 156/89 H 137/81 H Blood Pressure Mean 111 99 Pulse Ox 97 96 Oxygen Delivery Method Room Air [facility] <CROW Cooper - Last Filed: 03/08/25 18:10> [facility] Narrative Medical decision making narrative: Patient presenting today due to a mechanical fall that occurred today causing her to fall down about 5 stairs. She did hit her head, given this CT scan of the brain will be obtained to assess for intracranial bleed. Cervical spine CT will be obtained to assess for neck fracture. She has tenderness to the left lateral ribs, CT scan of the chest, abdomen, pelvis will be obtained to assess for rib fracture and intra-abdominal injury. She has pain primarily to the right shoulder but also endorses pain along the entirety of her right upper extremity. She has intact range of motion to the right elbow, wrist, and hand. X-rays do reveal a fracture of the right humerus at the surgical neck. The remainder of her x-rays are negative for fracture. CT scan of the chest revealed the humeral fracture but otherwise CTs were negative for acute findings. She was given IV morphine here for her pain. She was ambulated by the nurse and did well. Her left forearm abrasion was cleaned and bandaged. Her tetanus is up-to-date. I will give her a sling for her right upper extremity. Initially the plan was to discharge the patient but she was unable to ambulate in the room, she felt unstable and reports that she lives at home by herself. She is scared that she is going to fall again. Given this, I will speak with the hospitalist regarding admission and likely SNF placement. Lab Data Attestation: I reviewed the patient's lab results. Labs: Laboratory Results - last 24 hr 03/08/25 14:10 WBC 9.3 RBC 4.64 Hgb 14.0 Hct 41.4 MCV 89.2 MCH 30.2 MCHC 33.8 RDW Std Deviation 43.9 RDW Coeff of Larry 13.6 Plt Count 241 MPV 9.4 Immature Gran % (Auto) 1.300 H Neut % (Auto) 71.1 H Lymph % (Auto) 18.0 L Wilbarger % (Auto) 8.7 Eos % (Auto) 0.4 Baso % (Auto) 0.5 Absolute Neuts (auto) 6.6 Absolute Lymphs (auto) 1.68 Nucleated RBC % 0 Sodium 142 Potassium 3.5 Chloride 105 Carbon Dioxide 25.8 Anion Gap 11 BUN 24 H Creatinine 0.95 Estim Creat Clear Calc 55.67 Est GFR (MDRD) Non-Af 62 BUN/Creatinine Ratio 25.6 H Glucose 132 H Calcium 9.1 Total Creatine Kinase 38 Radiography X-Ray: Read by ED Physician Diagnostic Testing: Clinical Impression(s) from Imaging Studies Elbow X-Ray 03/08/25 14:27 IMPRESSION: No acute osseous abnormalities. Reading Location: [facility] Humerus X-Ray 03/08/25 14:27 IMPRESSION: Acute fracture of the surgical neck of the right humerus extending to the greater tubercle. No dislocation of the shoulder joint. Reading Location: [id number] Shoulder X-Ray 03/08/25 14:27 IMPRESSION: Acute fracture of the surgical neck of the right humerus extending to the greater tubercle. Reading Location: [id number] Wrist X-Ray 03/08/25 14:27 IMPRESSION: No acute osseous abnormalities. Reading Location: [id number] Brain CT 03/08/25 14:45 IMPRESSION: 1. Small right sphenoid sinus air-fluid level, possibly due to acute sinusitis. 2. No intracranial hemorrhage is seen. No acute intracranial process is noted. 3. No fracture site is evident. Reading Location: [facility] 03/08/25 14:45 IMPRESSION: DEGENERATIVE CHANGES OF THE CERVICAL SPINE. NO EVIDENCE OF SIGNIFICANT OSSEOUS CENTRAL CANAL OR NEURAL FORAMINAL STENOSIS. Reading Location: [facility] Chest/Abdomen/Pelvis CT 03/08/25 14:45 IMPRESSION: Nondisplaced fracture through the surgical neck of the proximal right humerus with extension into the greater and lesser tuberosities. No rib fracture. Small left renal cysts and mild splenomegaly. Reading Location: [facility] <Dr. Narda Duckworth MD - Last Filed: 03/09/25 07:24> [facility] MDM Narrative Medical decision making narrative: Patient presenting today due to a mechanical fall that occurred today causing her to fall down about 5 stairs. She did hit her head, given this CT scan of the brain will be obtained to assess for intracranial bleed. Cervical spine CT will be obtained to assess for neck fracture. She has tenderness to the left lateral ribs, CT scan of the chest, abdomen, pelvis will be obtained to assess for rib fracture and intra-abdominal injury. She has pain primarily to the right shoulder but also endorses pain along the entirety of her right upper extremity. She has intact range of motion to the right elbow, wrist, and hand. X-rays do reveal a fracture of the right humerus at the surgical neck. The remainder of her x-rays are negative for fracture. CT scan of the chest revealed the humeral fracture but otherwise CTs were negative for acute findings. She was given IV morphine here for her pain. She was ambulated by the nurse and did well. Her left forearm abrasion was cleaned and bandaged. Her tetanus is up-to-date. I will give her a sling for her right upper extremity. Initially the plan was to discharge the patient but she was unable to ambulate in the room, she felt unstable and reports that she lives at home by herself. She is scared that she is going to fall again. Given this, I will speak with the hospitalist regarding admission and likely SNF placement. Patient seen and evaluated with CHANDRAKANT. I personally interviewed and examined the patient. I was involved in all aspects of patient's orders, interpretation of results, and treatment. Agree with the above. In brief patient is a 74-year-old female [facility] [employer] who had a mechanical fall. She did strike the right side of her head. She is mainly endorsing right-sided arm pain and left-sided rib pain. Up-to-date on tetanus. Vital signs: Reviewed General: Alert and oriented x 3. No acute distress HEENT: Head is normocephalic. Cephalhematoma to the right frontal forehead. Sinuses nontender, pupils equal round and reactive. Nares are patent. Oropharynx and throat exams normal. Neck: Supple without lymphadenopathy nontender. No midline cervical spinal tenderness to palpation. No step-offs or deformities. Cardiovascular: Regular rate and rhythm, no murmurs. No rubs or gallops. Normal S1 and S2 Respiratory: Clear to auscultation bilaterally. No wheezes, rales, rhonchi Abdominal: Soft and nontender. Normal bowel sounds. No guarding or rebound. Nonsurgical abdomen Extremities: No midline thoracic or lumbar spinal tenderness to palpation. No step-offs or deformities. Hips are stable and nontender to palpation. Right upper extremity is diffusely tender to palpation however most notably along the proximal humerus. Radial pulse intact. Sensation intact, specifically in the distribution of the axillary nerve. No obvious deformity Patient able to wiggle fingers. Otherwise range of motion of the right upper extremity limited due to pain. Bilateral lower extremities are atraumatic and nontender to palpation with normal active range of motion. Small skin tear to the left dorsal forearm. No tenderness to palpation of the forearm. Skin: No rash or redness. Neurological: Cranial nerves II through XII are grossly intact. Normal strength and sensation. Normal cerebellar function The rest of the physical exam is unremarkable CT imaging was negative. X-ray showed a proximal right humeral fracture. Sensation, specifically the axillary nerve intact. Radial pulse intact. Patient placed in a sling and swath. Given analgesia here. Patient was unable to ambulate here due to lightheadedness and feeling unsteady on her feet. She does live at home alone. States she does not feel safe going home. Will require admission for likely SNF placement. History & Record Review Discussion w/independent historian: Patient Lab Data Labs: Laboratory Results - last 24 hr 03/08/25 14:10 WBC 9.3 RBC 4.64 Hgb 14.0 Hct 41.4 MCV 89.2 MCH 30.2 MCHC 33.8 RDW Std Deviation 43.9 RDW Coeff of Larry 13.6 Plt Count 241 MPV 9.4 Immature Gran % (Auto) 1.300 H Neut % (Auto) 71.1 H Lymph % (Auto) 18.0 L Wilbarger % (Auto) 8.7 Eos % (Auto) 0.4 Baso % (Auto) 0.5 Absolute Neuts (auto) 6.6 Absolute Lymphs (auto) 1.68 Nucleated RBC % 0 Sodium 142 Potassium 3.5 Chloride 105 Carbon Dioxide 25.8 Anion Gap 11 BUN 24 H Creatinine 0.95 Estim Creat Clear Calc 55.67 Est GFR (MDRD) Non-Af 62 BUN/Creatinine Ratio 25.6 H Glucose 132 H Calcium 9.1 Total Creatine Kinase 38 Radiography X-Ray: Fracture (Right proximal humeral fracture, additional RUE extremity xrays are negative) Diagnostic Testing: Clinical Impression(s) from Imaging Studies Elbow X-Ray 03/08/25 14:27 IMPRESSION: No acute osseous abnormalities. Reading Location: [id number] Humerus X-Ray 03/08/25 14:27 IMPRESSION: Acute fracture of the surgical neck of the right humerus extending to the greater tubercle. No dislocation of the shoulder joint. Reading Location: [id number] Shoulder X-Ray 03/08/25 14:27 IMPRESSION: Acute fracture of the surgical neck of the right humerus extending to the greater tubercle. Reading Location: [id number] Wrist X-Ray 03/08/25 14:27 IMPRESSION: No acute osseous abnormalities. Reading Location: [id number] Brain CT 03/08/25 14:45 IMPRESSION: 1. Small right sphenoid sinus air-fluid level, possibly due to acute sinusitis. 2. No intracranial hemorrhage is seen. No acute intracranial process is noted. 3. No fracture site is evident. Reading Location: [facility] 03/08/25 14:45 IMPRESSION: DEGENERATIVE CHANGES OF THE CERVICAL SPINE. NO EVIDENCE OF SIGNIFICANT OSSEOUS CENTRAL CANAL OR NEURAL FORAMINAL STENOSIS. Reading Location: [facility] Chest/Abdomen/Pelvis CT 03/08/25 14:45 IMPRESSION: Nondisplaced fracture through the surgical neck of the proximal right humerus with extension into the greater and lesser tuberosities. No rib fracture. Small left renal cysts and mild splenomegaly. Reading Location: [id number] Discharge Plan Dx/Rx/DC Orders Clinical Impression: Fall, Head injury, Chronic anticoagulation, Skin tear of forearm without complication, Fracture of humerus, right, closed, Contusion of rib on left side Disposition Disposition: Acute Care Hospital [facility] Discharge Date/Time: 03/08/25 18:26
[2025-03-08 15:31] LABS: Anion Gap 11 (5-15); BUN 24 mg/dL (4-19); BUN/Creat Ratio 25.6 RATIO (10-20); Calcium,Total 9.1 mg/dL (7.6-11.0); Carbon Dioxide 25.8 mmol/L (21.0-32.0); Chloride 105 mmol/L (98-108); Estimated Creatinine Clearance 55.67 ml/min (50-250); Glucose 132 mg/dL (70-99); Potassium 3.5 mmol/L (3.3-5.1)
[2025-03-08 16:00] VITALS: BP 156/89; PULSE 78; RESP 14; O2SAT 97
[2025-03-08] MEDS: 0.9% Normal Saline (1000mL) 1,000 ML 999 ML IV (16:44)
[2025-03-08 16:47] VITALS: BP 137/81; PULSE 69; RESP 14; TEMP 36.4; O2SAT 96
--- NOTE | 2025-03-08 17:03 | ED.RN ---
Attempted to ambulate pt to bathroom, pt became pale and diaphoretic with near syncope x2.
--- NOTE | 2025-03-08 17:31 | PCM.HP.STD ---
HPI - General General Date of Admission: 03/08/25 Date of Service: 03/08/25 Chief Complaint: Fall HPI Narrative BARBARA HERNANDEZ, is a 74-year-old female history of PE, anxiety, fibromyalgia, hypothyroidism, GERD, hypertension who presented to [facility] ED 03/08/2025 due to mechanical fall. She reports that her son never put up the railing on the 4 steps going out of her house and today she tripped and fell down the stairs onto her right shoulder and said the right side of her head did hit the door. Her complaints in the ED were left lateral ribs and right shoulder. In the ED temp 98.7, heart rate of 85 and blood pressure 161/87, respiratory rate 15 and pulse ox 100% on room air. CBC with white blood cell count of 9.3 and hemoglobin 14, BMP with BUN of 24 and a creatinine 0.95, glucose of 132. CT head no acute intracranial process and CT cervical spine degenerative changes with no significant central canal or neural foraminal stenosis. Further scans did show a nondisplaced fracture through the surgical neck of the proximal right humerus with extension into the greater and lesser tuberosities with no rib fractures or other fractures noted. Initial plan was to send patient home however she felt weak and a little lightheaded when she stood up and she did not feel safe to go home so hospitalist contacted for admission. Patient evaluated at bedside and reports she is having pain in her right arm and still has a little bit of pain on the left side of her ribs and some soreness on the right side of her face but denies any numbness, tingling, focal weakness, not feeling lightheaded while sitting down and has no other new or acute complaints. Denied at home any urinary or infectious complaints. Notes that she was down for about an hour and feels a little bit achy. No nausea or abdominal pain. [facility] Medical History DVT (deep venous thrombosis) Staphylococcus aureus infection Macular degeneration Bilateral pulmonary embolism Depression History of kidney stones Acute calculous cholecystitis Laceration of left index finger Pulmonary emboli Hypoxia Elevated troponin Pulmonary embolism and infarction Fracture of left foot Episode of syncope Fibromyalgia Anxiety Home Medications ?Medication ?Instructions ?Recorded ?Last Taken ?Type hydrocodone 7.5 mg-acetaminophen 1 tab PO TID PRN PRN pain 12/15/23 03/12/24 10:00 History 325 mg tablet levothyroxine 25 mcg tablet 25 mcg PO DAILY thyroid 12/15/23 03/11/24 History cholecalciferol (vitamin D3) 25 25 mcg PO DAILY supplement 02/23/24 03/06/24 History mcg (1,000 unit) capsule doxepin 50 mg capsule 50 mg PO QHS 07/18/24 Unknown History vitamin B complex 1 cap PO QDAY 07/18/24 Unknown History apixaban 5 mg (74 tabs) tablets in 5 mg PO UD 12/05/24 Unknown History a dose pack (Eliquis DVT-PE Treat 30D Start) tolterodine 4 mg capsule,extended 4 mg PO BID 01/01/25 Unknown History release 24 hr apixaban 5 mg tablet (Eliquis) 5 mg PO BID 03/08/25 Unknown History losartan 100 mg tablet 100 mg PO QHS 03/08/25 Unknown History pantoprazole 40 mg tablet,delayed 40 mg PO DAILY 03/08/25 Unknown History release Allergy/AdvReac Type Severity Reaction Status Date / Time No Known Allergies Allergy Verified 03/08/25 13:01 Family History Mother Myocardial infarction Sister Diabetes Cancer Sister No problems noted. Father Cancer Surgical History S/P tonsillectomy S/P appendectomy S/P excision of ganglion cyst History of partial hysterectomy History of cholecystectomy Social History Smoking Status: Never smoker alcohol intake: never substance use type: does not use ROS ROS Narrative General: Denies fever/chills HENT: Some pain on the right side of her face, denies stuffy nose, denies sore throat EYES: Denies changes in vision Resp: Denies cough, denies shortness of breath Cardiac: Denies chest pain GI: Denies abdominal pain, denies changes in bowel, denies nausea/vomiting : Denies changes in urination Extremity: Denies swelling MSK: Denies focal weakness, pain particularly in the entirety of her right arm Neuro: Denies any numbness/tingling Heme: Some bruising after fall Skin: Denies rashes Psychiatric: No complaints voiced Vital Signs Vital Signs Vital Signs: 03/08/25 12:59 03/08/25 13:02 03/08/25 14:58 Temperature 98.7 F Temperature Source Oral Pulse Rate 85 73 Respiratory Rate 15 18 Respiratory Effort Normal Non-Labored Respiratory Depth Normal Respiratory Pattern Normal Blood Pressure 161/87 H 142/72 H Blood Pressure Mean 111 95 Pulse Ox 100 99 Oxygen Delivery Method Room Air Room Air Room Air 03/08/25 16:00 03/08/25 16:47 Temperature 97.6 F L Temperature Source Pulse Rate 78 69 Respiratory Rate 14 14 Respiratory Effort Respiratory Depth Respiratory Pattern Blood Pressure 156/89 H 137/81 H Blood Pressure Mean 111 99 Pulse Ox 97 96 Oxygen Delivery Method Room Air Weight Weight: 89.5 kg Body Mass Index (BMI) 32.8 Physical Exam Narrative General: Alert, oriented, no apparent distress HEENT: Normocephalic, some light bruising on right side of face and forehead Eyes: Anicteric, normal conjunctiva, extraocular movements grossly intact, query very slight right eye palsy on far right lateral gaze where it does not completely abduct however patient does not note any vision changes or acute changes, given chronic CT findings with no acute findings suspect this is not new Neck: Supple Respiratory: Clear to auscultation bilaterally, normal respiratory effort Cardiovascular: Regular rate and rhythm GI: Soft, nontender, nondistended Extremities: No edema Musculoskeletal: Moving all extremities aside from right arm in sling Neuro: No overt focal neurological deficits Skin: No rashes appreciated, scattered bruising Psych: Cooperative Results Lab / Micro Data 03/08/25 14:10 03/08/25 14:10 Labs: Laboratory Results - last 24 hr 03/08/25 14:10: WBC 9.3, RBC 4.64, Hgb 14.0, Hct 41.4, MCV 89.2, MCH 30.2, MCHC 33.8, RDW Std Deviation 43.9, RDW Coeff of Larry 13.6, Plt Count 241, MPV 9.4, Immature Gran % (Auto) 1.300 H, Neut % (Auto) 71.1 H, Lymph % (Auto) 18.0 L, [place] % (Auto) 8.7, Eos % (Auto) 0.4, Baso % (Auto) 0.5, Absolute Neuts (auto) 6.6, Absolute Lymphs (auto) 1.68, Nucleated RBC % 0, Sodium 142, Potassium 3.5, Chloride 105, Carbon Dioxide 25.8, Anion Gap 11, BUN 24 H, Creatinine 0.95, Estim Creat Clear Calc 55.67, Est GFR (MDRD) Non-Af 62, BUN/Creatinine Ratio 25.6 H, Glucose 132 H, Calcium 9.1 Imaging Radiology Impression Elbow X-Ray 03/08/25 14:27 IMPRESSION: No acute osseous abnormalities. Reading Location: [facility] Humerus X-Ray 03/08/25 14:27 IMPRESSION: Acute fracture of the surgical neck of the right humerus extending to the greater tubercle. No dislocation of the shoulder joint. Reading Location: [facility] Shoulder X-Ray 03/08/25 14:27 IMPRESSION: Acute fracture of the surgical neck of the right humerus extending to the greater tubercle. Reading Location: [facility] Wrist X-Ray 03/08/25 14:27 IMPRESSION: No acute osseous abnormalities. Reading Location: [facility] Brain CT 03/08/25 14:45 IMPRESSION: 1. Small right sphenoid sinus air-fluid level, possibly due to acute sinusitis. 2. No intracranial hemorrhage is seen. No acute intracranial process is noted. 3. No fracture site is evident. Reading Location: [facility] 03/08/25 14:45 IMPRESSION: DEGENERATIVE CHANGES OF THE CERVICAL SPINE. NO EVIDENCE OF SIGNIFICANT OSSEOUS CENTRAL CANAL OR NEURAL FORAMINAL STENOSIS. Reading Location: [id number] Chest/Abdomen/Pelvis CT 03/08/25 14:45 IMPRESSION: Nondisplaced fracture through the surgical neck of the proximal right humerus with extension into the greater and lesser tuberosities. No rib fracture. Small left renal cysts and mild splenomegaly. Reading Location: [id number] Assessment & Plan Assessment/Plan (1) Fracture of humerus, right, closed: PLAN: Plan #Fall w/ R humerus fracture -CT with nondisplaced fracture through surgical neck of the proximal right humerus with extension into the greater and lesser tuberosities -Initial plan was to discharge patient however she felt weak and somewhat lightheaded after standing up so hospitalist contacted for admission for PT and possible placement or further discharge planning -PT/OT -Given the fracture and patient is admitted will consult Ortho -Will check CT given she is down for an hour and feels achy -Also check UA -Fall precautions -Will order incentive spirometer #GERD -Continue PPI #Hypothyroidism -Continue Synthroid # History of PE -Will hold Eliquis tonight given recent fall #Hypertension - Will hold home losartan temporarily to allow room for pain control especially given patient's reports of lightheadedness earlier #DVT ppx: SCDs Rubi Freire MD Charges/Coding Visit Charges Inpatient E&M: 20761 Init Hosp L2
[2025-03-08 18:31] VITALS: BMI 33.1
--- NOTE | 2025-03-08 18:37 | CASEMGMT ---
Care Management Face to Face with patient for initial transition planning/care coordination assessment in the ED.? This radio news writer introduced self and role at [facility]. Patient alert and oriented. Patient willing to participate in assessment and is able to answer all questions appropriately.? Care providers, pharmacy, and demographics verified. Admitting Diagnosis: ??Right arm fx Other diagnosis history: ?DVT, macular degeneration, fibromyalgia PCP: ?laura Specialists: ?Rodrigo, pain management Preferred Pharmacy: [email or web address] Insurance: ?MMO Prescription Benefit: ?yes Living Will/HPOA: ?completed LNOK: ?son Living Arrangements: ?patient lives alone in a two story home, mostly independent with ADLs and IADLs Transportation: patient drives DME: ?walker, grab bar in bathroom states she needs more, shower bench HHC: ?currently has services, PT and nursing SNF/Rehab: ?none Community Resources: ?none Behavioral Health History: ?patient denies, chart has depression and anxiety Patient goals: Patient wishes to discharge home, denies need for home health care at this time. Patient denies any further needs or concerns at this time. Disposition Plan: admission to acute; RN CM/SW to follow for discharge planning needs that may arise. Lucina Weathers, METAL LOADER, PROFESSOR OF ART
[2025-03-08 18:38] VITALS: BP 148/98; PULSE 84; RESP 18; TEMP 37.1; O2SAT 95
--- OUTSIDE RECORDS SUMMARY | 2025-03-08 20:00 | XMS RPT_ITS | CCD ---
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 Ed Michaud Primary Care Provider Gerson CUENCA, Chance Attending Provider Gerson CUENCA, Chance Emergency Provider Colby CUENCA, Dr. Ed Michaud Referring Provider Jazlyn CUENCA, Dr. Damon Attending Provider [phone] Jazlyn CUENCA, Dr. Damon Referring Provider [phone] Colby CUENCA, Dr. Ed Michaud Attending Provider aNt MARIA, Roxana Attending Provider Roxana Pandya Referring Provider Renee CUENCA, Dr. Gunderson Attending Provider [phone] Samia Pelaez DO Emergency Provider [phone] Colby CUENCA, Dr. Ed Michaud Primary Care Provider Colby CUENCA, Dr. Ed Michaud Referring Provider Roxana Pandya Attending Provider Colby CUENCA, Dr. Ed Michaud Attending Provider Dr. Samia Pelaez DO Attending Provider [phone] Samia Pelaez DO Emergency Provider [phone] Jazlyn CUENCA, Dr. Damon Attending Provider [phone] Jazlyn CUENCA, Dr. Damon Referring Provider [phone] Yue Gonzalez DO Emergency Provider Colby CUENCA, Dr. Ed Michaud Attending Provider [phone] Colby CUENCA, Dr. Ed Michaud Referring Provider Colby CUENCA, Dr. Ed Michaud Primary Care Provider [phone] Colby CUENCA, Dr. Ed Michaud Referring Provider Lisa KELLOGG, Dr. Turner Attending Provider Jazlyn CUENCA, Dr. Damon Referring Provider Christophe CUENCA, Dr. Dempsey Attending Provider Oswald KELLOGG, Dr. Davis Emergency Provider Akers DO, Dr. Davis Attending Provider Christophe CUENCA, Dr. Dempsey Referring Provider [facility], Dr. Irwin Emergency Provider [facility], Dr. Irwin Attending Provider Colby CUENCA, Dr. Ed Michaud Primary Care Provider [phone] Colby CUENCA, Dr. Ed Micahud Attending Provider [phone] Colby CUENCA, Dr. Ed Michaud Referring Provider Jazlyn CUENCA, Dr. Damon Attending Provider [phone] [facility], Dr. Gracia Attending Provider Benigno , Dr. Gracia Emergency Provider [phone] [facility], Dr. Gunderson Emergency Provider Simona Mo Attending Unavailable Colby, Ed Chi Primary Care Unavailable Bi, Dayday Attending Unavailable Colby, Ed Chi Primary Care Unavailable Nelson Carr Admitting Unavailable Neptali Duran Consulting Unavailable Nelson Carr Consulting Unavailable Bi, Dayday Consulting Unavailable Colby, Ed Chi Primary Care Unavailable Ke Saeed Attending Unavailable Colby, Ed Chi Referring Unavailable Colby, Ed Chi Primary Care Unavailable Roxana Johns Attending Unavailable Colby, Ed Chi Referring Unavailable Colby, Ed Chi Primary Care Unavailable Nelson Hobson Referring Unavailable Nelson Hobson Attending Unavailable Colby, Ed Chi Primary Care Unavailable Nelson Hobson Attending Unavailable Colby, Ed Chi Referring Unavailable Cameron, Ayaan Consulting Unavailable AgNelson saldaña Referring Unavailable Neptali Duran Attending Unavailable Bi, Dayday Referring Unavailable Ayaan Barnes Attending Unavailable Roxana Johns Attending Unavailable Nelson Carr Attending Unavailable Colby, Ed Chi Primary Care Unavailable Romy Osborne Attending Unavailable Colby, Ed Chi Referring Unavailable Colby, Ed Chi Primary Care Unavailable Robert Wheeler Attending Unavailable Pramichelle Nelson Attending Unavailable Colby, Ed Chi Primary Care Unavailable Colby, Ed Chi Referring Unavailable Bi, Dayday Attending Unavailable Colby, Ed Chi Primary Care Unavailable Lilly Nelson Admitting Unavailable Neptali Duran Consulting Unavailable AgyeponNelson alvarado Consulting Unavailable Colby, Ed Chi Primary Care Unavailable Ryan Akers Attending Unavailable Colby, Ed Chi Referring Unavailable Colby, Ed Chi Attending Unavailable Colby, Ed Chi Primary Care Unavailable Colby, Ed Chi Attending Unavailable Colby, Ed Chi Primary Care Unavailable Nelson Hobson Attending Unavailable Colby, Ed Chi Referring Unavailable Colby, Ed Chi Primary Care Unavailable Michael Ferrari Attending Unavailable Colby, Ed Chi Referring Unavailable Johns, Roxana Attending Unavailable Colby, Ed Chi Primary Care Unavailable Colby, Ed Chi Referring Unavailable Colby, Ed Chi Primary Care Unavailable HartfordNeptali mendez Attending Unavailable Johns, Roxana Referring Unavailable Colby, [...] Care Unavailable Colby, Ed Chi Attending Unavailable Johns, Roxana Referring Unavailable Colby, Ed Chi Primary Care Unavailable Johns, Roxana Attending Unavailable Colby, Ed Chi Primary Care Unavailable Colby, Ed Chi Attending Unavailable Colby, Ed Chi Referring Unavailable Colby, Ed Chi Primary Care Unavailable Isckarus, Mansour Attending Unavailable Isckarus, Mansour Referring Unavailable Colby, Ed Chi Primary Care Unavailable Colby, Ed Chi Attending Unavailable Colby, Ed Chi Referring Unavailable Colby, Ed Chi Primary Care Unavailable Colby, Ed Chi Attending Unavailable Colby, De Chi Referring Unavailable Colby, Ed Chi Primary Care Unavailable Colby, Ed Chi Attending Unavailable Colby, Ed Chi Primary Care Unavailable Dc Francis Attending Unavailabl Samia Hearn Attending Unavailable Colby, Ed Chi Primary Care Unavailable Colby, Ed Chi Primary Care Unavailable Yue Gonzalez Attending Unavailable Colby, Ed Chi Primary Care Unavailable Samia Pelaez Attending Unavailable Colby, Ed Chi Primary Care Unavailable Chance Nieto Attending Unavailable Colby, Ed Chi Primary Care Unavailable Neptali Dacosta Attending Unavailable Colby, Ed Chi Primary Care Unavailable Colby, Ed Chi Attending Unavailable Colby, Ed Chi Referring Unavailable Prah, Nelson Referring Unavailable Prah, Nelson Attending Unavailable Colby, Ed Chi Primary Care Unavailable Colby , Dr. Ed Michaud Primary Care Provider Colby CUENCA, Dr. Ed Michaud Attending Provider Colby CUENCA, Dr. Ed Michaud Referring Provider Colby, Ed Chi Attending Unavailable Colby, Ed Chi Referring Unavailable Colby, Ed Chi Attending Unavailable Colby, Ed Chi Referring Unavailable Colby, Ed Chi Primary Care Unavailable Colby , Dr. Ed Michaud Primary Care Provider Dr. Neptali Dacosta DO Attending Provider Donita CUENCA, Dr. Laboy Emergency Provider Unavailab skyla Freire MD, Dr. Venegas Admit Provider [phone] Tani CUENCA, Dr. Venegas Attending Provider Medications Current Medications Medication Drug Class(es) Dates [...] needed for Pain Score 6-10/10 15 5 0 December 22, 2019 December 26, 2019 12:00am December 27, 2019 12:02am Other acute postprocedural pain Start: 12-22-2019 End: 12-27-2019 Hydrocodone-Acetaminophen Di scontinued 1 EACH PO EVERY 8 HOURS 15 5 December 22, 2019 December 26, 2019 11:02pm Start: 10-12-2017 End: 02-23-2024 Hydrocodone-Acetaminophen (N orco) 1 EACH tablet Discontinued 1 NMA PO EVERY 6 HOURS NEEDED as needed for Pain October 12, 2017 12:00am February 23, 2024 1:30pm apixaban 5 mg oral tablet (20 sources) Factor Xa Inhibitor Start: 12-05-2024 take 1 tablet by mouth twice daily Apixaban (Apixaban 5 Mg Tablet) 5 mg tablet Active 5 mg PO TWICE A DAY March 08, 2025 12:00am Start: 03-16-2024 End: 11-20-2024 take 2 tablets by mouth twice daily, then take 1 tablet by mouth twice daily in the morning Apixaban (Eliquis Dvt-Pe Treat 30d Start) 5 mg (74 tabs) tablets,dose pack Discontinued 5 mg PO TWICE A DAY 74 0 March 16, 2024 8:28am November 20, 2024 2:48pm PE 10 mg twice daily for 1 week to 03/22/2024 and then transition to 5 mg twice daily on 03/23/2024 at 10 AM. Start: 12-16-2023 End: 03-16-2024 take 1 tablet by mouth twice daily Apixaban (Eliquis Dvt-Pe Treat 30d Start) 5 mg (74 tabs) tablets,dose pack Discontinued 5 mg PO TWICE A DAY 74 0 December 16, 2023 12:00am March 16, 2024 8:28am PE cholecalciferol 0.025 mg oral capsule (11 sources) Vitamin D Start: 02-23-2024 take 1 capsule by mouth once daily Cholecalciferol (Vitamin D3) 25 mcg (1,000 unit) capsule Active 25 ug PO DAILY February 23, 2024 12:00am supplement doxepin hydrochloride 50 mg oral capsule (20 sources) Tricyclic Antidepressant Start: 07-18-2024 take 1 capsule by mouth at bedtime Doxepin 50 mg capsule Active 50 mg PO AT BEDTIME July 18, 2024 1:00am Start: 12-15-2023 End: 02-23-2024 take 1 capsule by mouth at bedtime Doxepin 50 mg capsule Discontinued 50 mg PO AT BEDTIME December 15, 2023 12:00am February 23, 2024 1:31pm anxiety Start: 04-27-2022 End: 04-28-2022 take 2 capsules by mouth at bedtime Doxepin 50 mg Capsule Discontinued 100 mg PO AT BEDTIME April 27, 2022 12:00am April 28, 2022 2:17pm depression, anxiety, sleep Start: 04-27-2022 End: 04-28-2022 take 100 mg [...] 8:42pm levothyroxine sodium 0.025 mg oral tablet (11 sources) l-Thyroxine Start: 12-15-2023 take 1 tablet by mouth once daily Levothyroxine 25 mcg tablet Active 25 ug PO DAILY December 15, 2023 12:00am thyroid losartan potassium 100 mg oral tablet (1 source) Angiotensin 2 Receptor Kristel Start: 03-08-2025 take 1 tablet by mouth at bedtime Losartan 100 mg tablet Active 100 mg PO AT BEDTIME March 08, 2025 12:00am pantoprazole 40 mg delayed release oral tablet (1 source) Proton Pump Inhibitor Start: 03-08-2025 take 1 tablet by mouth once daily Pantoprazole 40 mg tablet,delayed release (DR/EC) Active 40 mg PO DAILY March 08, 2025 12:00am thyroid (penitentiary) 15 mg oral tablet (6 sources) Start: 04-27-2022 take 1 tablet by mouth once daily Thyroid (Pork) (Stock Supervisor Thyroid) 15 mg Tablet Active 15 MG PO DAILY April 26, 2022 11:00pm 24 hr tolterodine tartrate 4 mg extended release oral capsule (20 sources) Cholinergic Muscarinic Antagonist Start: 01-01-2025 take 1 capsule by mouth twice daily Tolterodine 4 mg capsule,extended release 24hr Active 4 mg PO TWICE A DAY January 01, 2025 12:00am Start: 12-15-2023 End: 01-01-2025 Tolterodine 2 mg tablet Disc ontinued 4 mg PO TWICE A DAY May 08, 2024 12:59pm January 01, 2025 1:51pm over active bladder per pt dose recently increased to BID Vitamin B Complex capsule (11 sources) Start: 07-18-2024 Vitamin B Comp madelyn capsule Active 1 NMA PO daily July 18, 2024 1:00am Start: 07-18-2024 Vitamin B Comp madelyn capsule Discontinued 1 NMA PO daily July 18, 2024 1:00am Start: 07-18-2024 Vitamin B Comp madelyn capsule Discontinued 1 NMA PO daily July 18, 2024 12:00am Completed/Discontinued Medications Medication Drug Class(es) Dates Sig (Normalized) Sig (Original) ascorbic acid 500 mg oral tablet (11 sources) Vitamin C Start: 03-16-2024 End: 05-08-2024 take 1 tablet by mouth twice daily Ascorbic Acid (Vitamin C) 500 mg tablet Discontinued 500 mg PO TWICE A DAY 60 2 March 16, 2024 12:00am May 08, 2024 12:58pm baclofen 10 mg oral tablet (11 sources) gamma-Aminobutyr ic Acid-ergic Agonist Start: 02-23-2024 End: 03-12-2024 take 1 tablet by mouth once daily Baclofen 10 mg tablet Discontinued 10 mg PO daily February 23, 2024 12:00am March 12, 2024 5:45pm busPIRone hydrochloride 10 mg oral tablet (20 sources) Start: 02-23-2024 End: 05-08-2024 take 1 tablet by mouth three times daily Buspirone 10 mg tablet Discontinued 10 mg PO THREE TIMES A DAY February 23, 2024 1:31pm May 08, 2024 12:58pm anxiety Start: 04-27-2022 End: 02-23-2024 take 2 tablets by mouth three times daily Buspirone 10 mg Tablet Discontinued 20 mg PO THREE TIMES A DAY April 27, 2022 12:00am February 23, 2024 1:32pm anxiety Start: 04-27-2022 take 20 mg by mouth three times daily Buspirone Active 20 MG PO THREE TIMES A DAY April 26, 2022 11:00pm cephalexin 500 mg oral capsule (12 sources) Cephalosporin Antibacterial Start: 11-05-2024 End: 11-20-2024 take 1 capsule by mouth three times daily Cephalexin 500 mg capsule Discontinued 500 mg PO THREE TIMES A DAY 21 7 0 November 05, 2024 12:00am November 20, 2024 2:48pm Start: 02-21-2021 take 500 mg by mouth every six hours Cephalexin Active 500 MG PO EVERY 6 HOURS 40 February 21, 2021 12:29pm ferrous sulfate 325 mg oral tablet (11 sources) Start: 03-16-2024 End: 05-08-2024 take 1 tablet by mouth every other day Ferrous Sulfate 325 mg (65 mg iron) tablet Discontinued 325 mg PO EVERY OTHER DAY 30 2 March 16, 2024 12:00am May 08, 2024 12:58pm gabapentin 300 mg oral capsule (14 sources) Anti-epilepti c Agent Start: 02-23-2024 End: 03-12-2024 take 1 capsule by mouth once daily Gabapentin 300 mg capsule Discontinued 300 mg PO daily February 23, 2024 12:00am March 12, 2024 5:47pm Start: 10-12-2017 take 800 mg by mouth at bedtim e Gabapentin Active 800 MG PO AT BEDTIME October 12, 2017 8:42pm omeprazole 40 mg delayed release oral capsule (11 sources) Proton Pump Inhibitor Start: 03-02-2024 End: 11-20-2024 take 1 capsule by mouth once daily in the evening PARoxetine hydrochloride 40 mg oral tablet (17 sources) Serotonin Reuptake Inhibitor Start: 04-27-2022 End: 03-12-2024 take 1 tablet by mouth once daily Paroxetine Hcl 40 mg Tablet Discontinued 40 mg PO DAILY April 27, 2022 12:00am March 12, 2024 5:49pm depression potassium chloride 20 meq extended release oral tablet (20 sources) Start: 07-18-2024 End: 11-20-2024 take 1 tablet by mouth once daily Potassium Chloride 20 mEq tablet extended release Discontinued 20 meq PO daily July 18, 2024 1:00am November 20, 2024 2:49pm Start: 06-05-2024 End: 06-12-2024 take 1 tablet by mouth twice daily Potassium Chloride 20 mEq tablet extended release Discontinued 20 meq PO TWICE A DAY 14 7 0 June 05, 2024 1:00am June 11, 2024 1:00am June 12, 2024 1:08am predniSONE 20 mg oral tablet (11 sources) Start: 01-10-2024 End: 02-23-2024 take 2 tablets by mouth once daily Prednisone 20 mg tablet Discontinued 40 mg PO DAILY 14 7 0 January 10, 2024 12:00am February 23, 2024 1:32pm Thyroid (Pork) (Stock Supervisor Thyroid) 15 mg Tablet (11 sources) Start: 04-27-2022 End: 02-23-2024 take 1 tablet by mouth once daily Thyroid (Pork) (Stock Supervisor Thyroid) 15 mg Tablet Discontinued 15 mg PO DAILY April 27, 2022 12:00am February 23, 2024 1:32pm Thyroid Start: 04-27-2022 End: 02-23-2024 take 1 tablet by mouth once daily Thyroid (Pork) (Stock Supervisor Thyroid) 15 mg Tablet Discontinued 15 mg PO DAILY April 27, 2022 12:00am February 23, 2024 1:32pm Start: 04-27-2022 End: 02-23-2024 take 1 tablet by mouth once daily Thyroid (Pork) (Stock Supervisor Thyroid) 15 mg Tablet Discontinued 15 mg PO DAILY April 26, 2022 11:00pm February 23, 2024 12:32pm Problems Active Problems Problem Classification Problem Date Documented Da te Episodic/Chronic Aortic and peripheral arterial embolism or thrombosis (20 sources) Thromboembolic disorder; Translations: [Embolism and thrombosis of unspecified artery] Onset: 06-05-2024 05-08-2024 Chronic Comment on above: D-dimers are normal today. She wants to stop Eliquis since she has been on it for 6 months and she has loose stools with it. Biliary tract disease (20 sources) Acute cholecystitis due to biliary calculus; Translations: [Calculus of gallbladder with acute cholecystitis without obstruction] 12-21-2019 Episodic Calculus of urinary tract (20 sources) History of calculus of kidney; Translations: [Personal history of urinary calculi] 12-21-2019 Episodic Conditions associated with dizziness or vertigo (1 source) Dizziness and giddiness; Translations: [Dizziness and giddiness] Onset: 02-08-2025 Episodic Diseases of white blood cells (20 sources) Neutrophilia; Translations: [Other elevated white blood cell count] Onset: 03-31-2024 03-18-2024 Chronic Disorders of lipid metabolism (1 source) Hyperlipidemia, unspecified; Translations: [Hyperlipidemia, unspecified] Onset: 12-14-2024 Chronic E Codes: Fall (20 sources) Fall; Translations: [Unspecified fall, initial encounter] 12-14-2023 Episodic Fluid and electrolyte disorders (11 sources) Lactic acidosis; Translations: [Lactic acidosis] 03-12-2024 Episodic Fracture of lower limb (20 sources) Fracture of foot ; Translations: [Unspecified fracture of unspecified foot, initial encounter for closed fracture] 12-14-2023 Episodic Fracture of upper limb (1 source) Closed fracture of humerus; Translations: [Unspecified fracture of shaft of humerus, right arm, initial encounter for closed fracture] 03-08-2025 Episodic Mood disorders (20 sources) Depressive disorder; Translations: [Depression] 12-21-2019 Chronic Open wounds of extremities (20 sources) Laceration of left index finger; Translations: [Laceration without foreign body of left index finger without damage to nail, initial encounter] 02-21-2021 Episodic Open wounds of head; neck; and trunk (16 sources) Tear of skin; Translations: [Open wound(s) (multiple) of unspecified site(s), without mention of complication] 11-05-2024 Episodic Other acquired deformities (11 sources) Lumbar spondylolisthesis; Translations: [Spondylolisthesis, lumbar region] 02-24-2024 Episodic Other aftercare (20 sources) Long-term current use of anticoagulant; Translations: [terminal block assembler (current) use of anticoagulants] 01-18-2024 Episodic Other connective tissue disease (20 sources) Fibromyalgia; Translations: [Fibromyalgia] 12-21-2019 Episodic Other gastrointestinal disorders (13 sources) Loose stool; Translations: [Other fecal abnormalities] 06-05-2024 Episodic Other gastrointestinal disorders (12 sources) Occult blood in stools; Translations: [Other fecal abnormalities] 02-24-2024 Episodic Other injuries and conditions due to external causes (20 sources) Closed injury of head; Translations: [Unspecified injury of head, initial encounter] 09-16-2024 Episodic Other injuries and conditions due to external causes (9 sources) Injury of head; Translations: [Unspecified injury of head, initial encounter] 11-26-2024 Episodic Other injuries and conditions due to external causes (1 source) Unspecified injury of head, initial encounter; Translations: [Unspecified injury of head, initial encounter] Onset: 01-06-2025 Episodic Other injuries and conditions due to external causes (1 source) Other specified injuries of thorax, initial encounter; Translations: [Contusion of rib on left side] 03-08-2025 Episodic Other lower respiratory disease (11 sources) Hypoxia; Translations: [Hypoxemia] 02-23-2024 Episodic Other lower respiratory disease (11 sources) Acute respiratory distress; Translations: [Acute respiratory distress] 03-18-2024 Episodic Other nervous system disorders (1 source) Other chronic pain; Translations: [Other chronic pain] Onset: 03-31-2024 Chronic Other non-traumatic joint disorders (1 source) Pain in right shoulder; Translations: [Pain in right shoulder] Onset: 11-11-2024 Episodic Other nutritional; endocrine; and metabolic disorders (11 sources) Body mass index 30+ - obesity; Translations: [Obesity, unspecified] 12-14-2023 Chronic Other screening for suspected conditions (not mental disorders or infectious disease) (12 sources) Raised cardiac enzyme or marker; Translations: [Other specified abnormal findings of blood chemistry] Onset: 12-05-2024 02-23-2024 Episodic Phlebitis; thrombophlebitis and thromboembolism (8 sources) Deep venous thrombosis; Translations: [Acute embolism and thrombosis of unspecified deep veins of unspecified lower extremity] 11-20-2024 Episodic Comment on above: Left lower extremity March 2024 Pulmonary heart disease (2 sources) Saddle embolus of pulmonary artery without acute cor pulmonale; Translations: [Other pulmonary embolism with acute cor pulmonale] Onset: 04-09-2024 Chronic Pulmonary heart disease (20 sources) Pulmonary embolism [...] femoral access Respiratory failure; insufficiency; arrest (adult) (12 sources) Acute respiratory failure; Translations: [Acute respiratory failure with hypoxia] Onset: 03-31-2024 03-18-2024 Episodic Spondylosis; intervertebral disc disorders; other back problems (20 sources) Lumbar radiculopathy; Translations: [Radiculopathy, lumbar region] 01-18-2024 Episodic Sprains and strains (19 sources) Strain of neck muscle; Translations: [Strain of muscle, fascia and tendon at neck level, initial encounter] 06-12-2024 Episodic Superficial injury; contusion (1 source) Contusion of left foot; Translations: [Contusion of left foot, initial encounter] 02-10-2025 Episodic Syncope (17 sources) Syncope; Translations: [Syncope and collapse] 05-06-2022 Episodic Thyroid disorders (1 source) Hypothyroidism, unspecified; Translations: [Hypothyroidism, unspecified] Onset: 02-26-2025 Chronic Unclassified (2 sources) Low back pain, unspecified; Translations: [Low back pain, unspecified] Onset: 02-24-2024 Unclassified (1 source) Acidosis, unspecified; Translations: [Acidosis, unspecified] Onset: 03-31-2024 Urinary tract infections (10 sources) Acute urinary tract infection; Translations: [Urinary tract infection, site not specified] Onset: 06-05-2024 11-05-2024 Episodic Past or Other Problems Problem Classification Problem Date Documented Da te Episodic/Chronic Diabetes mellitus without complication (1 source) Other abnormal glucose; Translations: [Other abnormal glucose] Onset: 09-22-2024 Episodic Malaise and fatigue (2 sources) Weakness; Translations: [Other fatigue] Onset: 03-14-2024 Episodic Other aftercare (1 source) half-way (current) use of anticoagulants; Translations: [half-way (current) use of anticoagulants] Onset: 06-05-2024 Episodic Other connective tissue disease (1 source) Other specified soft tissue disorders; Translations: [Other specified soft tissue disorders] Onset: 08-03-2024 Episodic Other connective tissue disease (1 source) Fibromyalgia; Translations: [Fibromyalgia] Onset: 03-31-2024 Episodic Other gastrointestinal disorders (1 source) Other fecal abnormalities; Translations: [Other fecal abnormalities] Onset: 07-10-2024 Episodic Other lower respiratory disease (1 source) Acute respiratory distress; Translations: [Acute respiratory distress] Onset: 03-31-2024 Episodic Other non-traumatic joint disorders (1 source) Pain in left knee; Translations: [Pain in left knee] Onset: 07-17-2024 Episodic Skin and subcutaneous tissue infections (2 sources) Cellulitis of right upper limb; Translations: [Cellulitis of right upper limb] Onset: 11-24-2024 Episodic Results Test Name Value Interpretation Reference Range Facility Absolute lymphocyte countOrd ered By: Irena Gill on 03-08-2025 Lymphocytes Auto (Unsp spec) [#/Vol] 1.68 10*3/uL 0.83-4.51 [facility] Absolute neutrophil countOrd ered By: Irena Gill on 03-08-2025 Neutrophils (Bld) [#/Vol] 6.6 10*3/uL 2.0-7.7 [facility] Anion gap in Serum or Plasma Ordered By: Irena Gill on 03-08-2025 Anion gap [Moles/Vol] 11 mmol/L 5-15 [facility] Automated lymphocyte count a s percentage of total leukocytesOrdered By: Irena Gill on 03-08-2025 Lymphocytes/100 WBC Auto (Unsp spec) 18.0 % Low 19-41 [facility] BUN/creatinine ratioOrdered By: Irena Gill on 03-08-2025 Urea nitrogen/Creatinine [Mass ratio] 25.6 mg/mg High 10-20 [facility] Basophil percentageOrdered B y: Irena Gill on 03-08-2025 Basophils/100 WBC (Bld) 0.5 % 0-1 [facility] Carbon dioxide, total [Moles /volume] in Central venous bloodOrdered By: Irena Gill on 03-08-2025 CO2 [Moles/Vol] 25.8 mmol/L 21.0-32.0 [facility] Chloride assayOrdered By: Caitlin Gill on 03-08-2025 Chloride [Moles/Vol] 105 mmol/L 98-[address] [facility] Eosinophil percentageOrdered By: Irena Gill on 03-08-2025 Eosinophils/100 WBC (Bld) 0.4 % 0-5 [facility] Erythrocyte distribution wid th ratioOrdered By: Irena Gill on 03-08-2025 Erythrocyte distribution width (RBC) [Ratio] 13.6 % 11.6-14.6 [facility] Erythrocyte distribution wid th standard deviationOrdered By: Irena Gill on 03-08-2025 Erythrocyte distribution width (RBC) [Ratio] 43.9 fl 35.1-43.9 [facility] Glomerular filtration rate ( GFR) estimation/1.73 sq m using serum, plasma, or whole bOrdered By: Irena Gill on 03-08-2025 GFR/1.73 sq M.predicted among non-blacks MDRD (S/P/Bld) [Vol rate/Area] 62 mL/min/{1.73_m2} >60 [facility] Comment on above: mL/min/1.73m2 CKD-EP I Creatinine Equation (2020) Hematocrit Auto (Bld) [Volum e fraction]Ordered By: Irena Gill on 03-08-2025 Hematocrit (Bld) [Volume fraction] 41.4 % 37-47 [facility] Hemoglobin measurementOrdere d By: Irena Gill on 03-08-2025 Hemoglobin (Bld) [Mass/Vol] 14.0 g/dL 12.0-15.0 [facility] Immature granulocytes/100 WB C Auto (Bld)Ordered By: Irena Gill on 03-08-2025 Immature granulocytes/100 WBC (Bld) 1.300 % High 0.0-0.9 [facility] Comment on above: IG% - Immature Granu locytes (promyelocytes, myelocytes and metamyelocytes) > 1% indicates that a LEFT SHIFT is Present. MCV (mean corpuscular volume ) determinationOrdered By: Irena Gill on 03-08-2025 MCV (RBC) [Entitic vol] 89.2 fL 81-99 [facility] Mean corpuscular hemoglobin (MCH) determinationOrdered By: Irena Gill on 03-08-2025 MCH (RBC) [Entitic mass] 30.2 pg 27.0-32.0 [facility] Mean corpuscular hemoglobin concentration (MCHC) determinationOrdered By: Irena Gill on 03-08-2025 MCHC (RBC) [Mass/Vol] 33.8 g/dL 32-36 [facility] Mean platelet volume determi nationOrdered By: Irena Gill on 03-08-2025 Platelet mean volume (Bld) [Entitic vol] 9.4 fL 6.2-12.0 [facility] Monocyte percentageOrdered B y: Irena Gill on 03-08-2025 Monocytes/100 WBC (Bld) 8.7 % 0-10 [facility] Neutrophil percentageOrdered By: Irena Gill on 03-08-2025 Neutrophils/100 WBC (Bld) 71.1 % High 47-70 [facility] Nucleated red blood cell per centageOrdered By: Irena Gill on 03-08-2025 Nucleated RBC/100 WBC (Bld) [Ratio] 0 % 0-5 [facility] Platelet countOrdered By: Caitlin Gill on 03-08-2025 Platelets (Bld) [#/Vol] 241 10*3/uL 150-450 [facility] Potassium measurement (mass/ volume)Ordered By: Irena Gill on 03-08-2025 Potassium (Unsp spec) [Mass/Vol] 3.5 mmol/L 3.3-5.1 [facility] Comment on above: Hemolysis present, R esults could be affected. RBC Auto (Bld) [#/Vol]Ordere d By: Irena Gill on 03-08-2025 RBC (Bld) [#/Vol] 4.64 10*6/uL 4.2-5.4 [facility] Serum creatinine measurement (mass/volume)Ordered By: Irena Gill on 03-08-2025 Creatinine [Mass/Vol] 0.95 mg/dL 0.70-1.20 [facility] Serum glucose measurement (m ass/volume)Ordered By: Irena Gill on 03-08-2025 Glucose [Mass/Vol] 132 mg/dL High 70-99 [facility] Serum or plasma calcium raine urement (mass/volume)Ordered By: Irena Gill on 03-08-2025 Calcium [Mass/Vol] 9.1 mg/dL 7.6-11.0 [facility] Serum or plasma urea nitroge n measurement (mass/volume)Ordered By: Irena Gill on 03-08-2025 Urea nitrogen [Mass/Vol] 24 mg/dL High 4-19 [facility] Sodium levelOrdered By: Anton Gill on 03-08-2025 Sodium [Moles/Vol] 142 mmol/L 133-145 [facility] White blood cell (WBC) count Ordered By: Irena Gill on 03-08-2025 WBC (Bld) [#/Vol] 9.3 10*3/uL 4.4-11.0 [facility] TSH DL <= 0.005 mIU/L QnOrde red By: Ed Bowman on 02-22-2025 TSH Qn 0.955 uIU/mL 0.300-4.200 [facility] Thyroid Stim Hormone (TSH)on 02-22-2025 TSH 0.955 uIU/mL Normal 0.300-4.200 [facility] Comment on above: Performed By: #### L 501.9985 #### [facility] [place], [place], [id number] Absolute lymphocyte countOrd ered By: Neptali Dacosta on 02-02-2025 Lymphocytes Auto (Unsp spec) [#/Vol] 3.79 10*3/uL 0.83-4.51 [facility] Absolute neutrophil countOrd ered By: Neptali Dacosta on 02-02-2025 Neutrophils (Bld) [#/Vol] 9.3 10*3/uL High 2.0-7.7 [facility] Activated partial thrombopla stin time (aPTT) in platelet poor plasma by coagulation aOrdered By: Neptali Dacosta on 02-02-2025 aPTT Coag (PPP) [Time] 23.8 s Low 24.1-36.2 [facility] Anion gap in Serum or Plasma Ordered By: Neptali Dacosta on 02-02-2025 Anion gap [Moles/Vol] 14 mmol/L 5-15 [facility] Automated lymphocyte count a s percentage of total leukocytesOrdered By: Neptali Dacosta on 02-02-2025 Lymphocytes/100 WBC Auto (Unsp spec) 25.1 % - [facility] BUN/creatinine ratioOrdered By: Neptali Dacosta on 02-02-2025 Urea nitrogen/Creatinine [Mass ratio] 24.3 mg/mg High 10- [facility] Basic Metabolic Profile (BMP )on 02-02-2025 BUN/CRE 24.3 RATIO High 04-30 [facility] Comment on above: Performed By: #### L 300.3900, M100.7900, L100.0100, L500.2500, L300.4310 ####[facility] [address] [place], [address] Calcium [Mass/Vol] 9.6 mg/dL Normal 7.6-11.0 [facility] Comment on above: Performed By: #### L 300.3900, M100.7900, L100.0100, L500.2500, L300.4310 ####[facility] [address] [place], [address] Chloride [Moles/Vol] 106 mmol/L Normal 98-[address] [facility] Comment on above: Performed By: #### L 300.3900, M100.7900, L100.0100, L500.2500, L300.4310 ####[facility] [address] [place], [address] CO2 [Moles/Vol] 25.9 mmol/L Normal 21.0-32.0 [facility] Comment on above: Performed By: #### L 300.3900, M100.7900, L100.0100, L500.2500, L300.4310 ####[facility] [address] [place], [address] Creatinine [Mass/Vol] 1.11 mg/dL Normal 0.70-1.20 [facility] Comment on above: Performed By: #### L 300.3900, M100.7900, L100.0100, L500.2500, L300.4310 ####[facility] [address] [place], [address] GAP 14 Normal 5-15 [facility] Comment on above: Performed By: #### L 300.3900, M100.7900, L100.0100, L500.2500, L300.4310 ####[facility] [address] [place], [address] GFR/1.73 sq M.predicted among non-blacks MDRD (S/P/Bld) [Vol rate/Area] 52 mL/min/{1.73_m2} Low >60 [facility] Comment on above: Result Comment: mL/m in/1.73m2 CKD-EPI Creatinine Equation (2020) Performed By: #### L 300.3900, M100.7900, L100.0100, L500.2500, L300.4310 ####[facility] [address] [place], [address] Glucose [Mass/Vol] 116 mg/dL High 70-99 [facility] Comment on above: Performed By: #### L 300.3900, M100.7900, L100.0100, L500.2500, L300.4310 ####[facility] [address] [place], [address] Potassium [Moles/Vol] 3.6 mmol/L Normal 3.3-5.1 [facility] Comment on above: Performed By: #### L 300.3900, M100.7900, L100.0100, L500.2500, L300.4310 ####[facility] [address] [place], [address] Sodium [Moles/Vol] 146 mmol/L High 133-145 [facility] Comment on above: Performed By: #### L 300.3900, M100.7900, L100.0100, L500.2500, L300.4310 ####[facility] [address] [place], [address] Urea nitrogen [Mass/Vol] 27 mg/dL High 4-19 [facility] Comment on above: Performed By: #### L 300.3900, M100.7900, L100.0100, L500.2500, L300.4310 ####[facility] [address] [place], [address] Basophil percentageOrdered B y: Neptali Dacosta on 02-02-2024 Basophils/100 WBC (Bld) 0.5 % 0-1 [facility] CBC W/Diff, Automatedon 01-10 Absolute Lymph 3.79 X10 3/uL Normal 0.83-4.51 [facility] Comment on above: Performed By: #### L 300.3900, M100.7900, L100.0100, L500.2500, L300.4310 ####[facility] [address] [place], [address] Absolute Neut 9.3 X10 3/uL High 2.0-7.7 [facility] Comment on above: Performed By: #### L 300.3900, M100.7900, L100.0100, L500.2500, L300.4310 ####[facility] [address] [place], [address] Basophils/100 WBC (Bld) 0.5 % Normal 0-1 [facility] Comment on above: Performed By: #### L 300.3900, M100.7900, L100.0100, L500.2500, L300.4310 ####[facility] [address] [place], [address] Eosinophils/100 WBC (Bld) 0.4 % Normal 0-5 [facility] Comment on above: Performed By: #### L 300.3900, M100.7900, L100.0100, L500.2500, L300.4310 ####[facility] [address] [place], [address] Erythrocyte distribution width (RBC) [Ratio] 13.5 % Normal 11.6-14.6 [facility] Comment on above: Performed By: #### L 300.3900, M100.7900, L100.0100, L500.2500, L300.4310 ####[facility] [address] [place], [address] Hematocrit (Bld) [Volume fraction] 44.6 % Normal 37-47 [facility] Comment on above: Performed By: #### L 300.3900, M100.7900, L100.0100, L500.2500, L300.4310 ####[facility] [address] [place], [address] Hemoglobin (Bld) [Mass/Vol] 14.8 g/dL Normal 12.0-15.0 [facility] Comment on above: Performed By: #### L 300.3900, M100.7900, L100.0100, L500.2500, L300.4310 ####[facility] [address] [place], [address] IG% 2.700 High 0.0-0.9 [facility] Comment on above: Result Comment: IG% - Immature Granulocytes (promyelocytes, myelocytes andmetamyelocytes) > 1% indicates that a LEFT SHIFT is Present. Performed By: #### L 300.3900, M100.7900, L100.0100, L500.2500, L300.4310 ####[facility] [address] [place], [address] Lymphocytes/100 WBC (Bld) 25.1 % Normal 19-41 [facility] Comment on above: Performed By: #### L 300.3900, M100.7900, L100.0100, L500.2500, L300.4310 ####[facility] [address] [place], [address] MCH (RBC) [Entitic mass] 29.7 pg Normal 27.0-32.0 [facility] Comment on above: Performed By: #### L 300.3900, M100.7900, L100.0100, L500.2500, L300.4310 ####[facility] [address] [place], [address] MCHC (RBC) [Mass/Vol] 33.2 g/dL Normal 32-36 [facility] Comment on above: Performed By: #### L 300.3900, M100.7900, L100.0100, L500.2500, L300.4310 ####[facility] [address] [place], [address] MCV (RBC) [Entitic vol] 89.6 fL Normal 81-99 [facility] Comment on above: Performed By: #### L 300.3900, M100.7900, L100.0100, L500.2500, L300.4310 ####[facility] [address] [place], [address] Monocytes/100 WBC (Bld) 9.4 % Normal 0-10 [facility] Comment on above: Performed By: #### L 300.3900, M100.7900, L100.0100, L500.2500, L300.4310 ####[facility] [address] [place], [address] Neutrophils/100 WBC (Bld) 61.9 % Normal 47-70 [facility] Comment on above: Performed By: #### L 300.3900, M100.7900, L100.0100, L500.2500, L300.4310 ####[facility] [address] [place], [address] Nucleated RBC (Bld) [#/Vol] 0 10*3/uL Normal 0-5 [facility] Comment on above: Performed By: #### L 300.3900, M100.7900, L100.0100, L500.2500, L300.4310 ####[facility] [address] [place], [address] Platelet mean volume (Bld) [Entitic vol] 9.7 fL Normal 6.2-12.0 [facility] Comment on above: Performed By: #### L 300.3900, M100.7900, L100.0100, L500.2500, L300.4310 ####[facility] [address] [place], [address] Platelets (Bld) [#/Vol] 284 10*3/uL Normal 150-450 [facility] Comment on above: Performed By: #### L 300.3900, M100.7900, L100.0100, L500.2500, L300.4310 ####[facility] [address] [place], [address] RBC (Bld) [#/Vol] 4.98 10*6/uL Normal 4.2-5.4 [facility] Comment on above: Performed By: #### L 300.3900, M100.7900, L100.0100, L500.2500, L300.4310 ####[facility] [address] [place], [address] RDW SD 44.4 fl High 35.1-43.9 [facility] Comment on above: Performed By: #### L 300.3900, M100.7900, L100.0100, L500.2500, L300.4310 ####[facility] [address] [place], [address] WBC (Bld) [#/Vol] 15.1 10*3/uL High 4.4-11.0 [facility] Comment on above: Performed By: #### L 300.3900, M100.7900, L100.0100, L500.2500, L300.4310 ####[facility] [address] [place], [address] Carbon dioxide, total [Moles /volume] in Central venous bloodOrdered By: Neptali Dacosta on 02-02-2025 CO2 [Moles/Vol] 25.9 mmol/L 21.0-32.0 [facility] Chloride assayOrdered By: Michael Dacotsa on 02-02-2025 Chloride [Moles/Vol] 106 mmol/L 98-[address] [facility] Emergency Department Summary on 02-02-2025 Emergency Department Summary Normal [facility] Eosinophil percentageOrdered By: Neptali Dacosta on 02-02-2025 Eosinophils/100 WBC (Bld) 0.4 % 0-5 [facility] Erythrocyte distribution wid th ratioOrdered By: Neptali Dacosta on 02-02-2025 Erythrocyte distribution width (RBC) [Ratio] 13.5 % 11.6-14.6 [facility] Erythrocyte distribution wid th standard deviationOrdered By: Neptali Dacosta on 02-02-2025 Erythrocyte distribution width (RBC) [Ratio] 44.4 fl High 35.1-43.9 [facility] Foot min 3 Viewson Foot min 3 Views Normal [facility] Glomerular filtration rate ( GFR) estimation/1.73 sq m using serum, plasma, or whole bOrdered By: Neptali Dacosta on 02-02-2025 GFR/1.73 sq M.predicted among non-blacks MDRD (S/P/Bld) [Vol rate/Area] 52 mL/min/{1.73_m2} Low >60 [facility] Comment on above: mL/min/1.73m2 CKD-EP I Creatinine Equation (2020) Hematocrit Auto (Bld) [Volum e fraction]Ordered By: Neptali Dacosta on 02-02-2025 Hematocrit (Bld) [Volume fraction] 44.6 % 37-47 [facility] Hemoglobin measurementOrdere d By: Neptali Dacosta on 02-02-2025 Hemoglobin (Bld) [Mass/Vol] 14.8 g/dL 12.0-15.0 [facility] Immature granulocytes/100 WB C Auto (Bld)Ordered By: Neptali Dacosta on 02-02-2025 Immature granulocytes/100 WBC (Bld) 2.700 % High 0.0-0.9 [facility] Comment on above: IG% - Immature Granu locytes (promyelocytes, myelocytes and metamyelocytes) > 1% indicates that a LEFT SHIFT is Present. International normalized rat io (INR) calculationOrdered By: Neptali Dacosta on 02-02-2025 INR Coag (Bld) [Relative time] 1.3 {INR} [facility] MCV (mean corpuscular volume ) determinationOrdered By: Neptali Dacosta on 02-02-2025 MCV (RBC) [Entitic vol] 89.6 fL 81-99 [facility] Mean corpuscular hemoglobin (MCH) determinationOrdered By: Neptali Dacosta on 02-02-2025 MCH (RBC) [Entitic mass] 29.7 pg 27.0-32.0 [facility] Mean corpuscular hemoglobin concentration (MCHC) determinationOrdered By: Neptali Dacosta on 02-02-2025 MCHC (RBC) [Mass/Vol] 33.2 g/dL 32-36 [facility] Mean platelet volume determi nationOrdered By: Neptali Dacosta on 02-02-2025 Platelet mean volume (Bld) [Entitic vol] 9.7 fL 6.2-12.0 [facility] Monocyte percentageOrdered B y: Neptali Dacosta on 02-02-2025 Monocytes/100 WBC (Bld) 9.4 % 0-10 [facility] Neutrophil percentageOrdered By: Neptali Dacosta on 02-02-2025 Neutrophils/100 WBC (Bld) 61.9 % 47-70 [facility] Nucleated red blood cell per centageOrdered By: Neptali Dacosta on 02-02-2025 Nucleated RBC/100 WBC (Bld) [Ratio] 0 % 0-5 [facility] Partial Thromboplast Timeon 02-02-2025 aPTT Coag (Bld) [Time] 23.8 s Low 24.1-36.2 [facility] Comment on above: Performed By: #### L 300.3900, M100.7900, L100.0100, L500.2500, L300.4310 ####[facility] [address] [place], [address] Platelet countOrdered By: Michael Dacosta on 02-02-2025 Platelets (Bld) [#/Vol] 284 10*3/uL 150-450 [facility] Potassium measurement (mass/ volume)Ordered By: Neptali Dacosta on 02-02-2025 Potassium (Unsp spec) [Mass/Vol] 3.6 mmol/L 3.3-5.1 [facility] Prothrombin Time w/INRon INR Coag (PPP) [Relative time] 1.3 {INR} Normal [facility] Comment on above: Performed By: #### L 300.3900, M100.7900, L100.0100, L500.2500, L300.4310 ####[facility] [address] [place], [place], [id number] PT Coag (PPP) [Time] 16.0 s High 11.7-14.[address] [facility] Comment on above: Performed By: #### L 300.3900, M100.7900, L100.0100, L500.2500, L300.4310 ####[facility] [address] [place], [place], [id number] Prothrombin timeOrdered By: Neptali Dacosta on 02-02-2025 PT Coag (PPP) [Time] 16.0 s High 11.7-14.[address] [facility] RBC Auto (Bld) [#/Vol]Ordere d By: Neptali Dacosta on 02-02-2025 RBC (Bld) [#/Vol] 4.98 10*6/uL 4.2-5.4 [facility] Serum creatinine measurement (mass/volume)Ordered By: Neptali Dacosta on 02-02-2025 Creatinine [Mass/Vol] 1.11 mg/dL 0.70-1.20 [facility] Serum glucose measurement (m ass/volume)Ordered By: Neptali Dacosta on 02-02-2025 Glucose [Mass/Vol] 116 mg/dL High 70-99 [facility] Serum or plasma calcium raine urement (mass/volume)Ordered By: Neptali Dacosta on 02-02-2025 Calcium [Mass/Vol] 9.6 mg/dL 7.6-11.0 [facility] Serum or plasma urea nitroge n measurement (mass/volume)Ordered By: Neptali Dacosta on 02-02-2025 Urea nitrogen [Mass/Vol] 27 mg/dL High 4-19 [facility] Sodium levelOrdered By: Neptali Dacosta on 02-02-2025 Sodium [Moles/Vol] 146 mmol/L High 133-145 [facility] Stool Occult Blood iFOBon STOB Positive Normal [facility] Comment on above: Performed By: #### L 300.3900, M100.7900, L100.0100, L500.2500, L300.4310 ####[facility] [address] [place], [address] Stool gastrointestinal hemog lobin detection by immunologic methodOrdered By: Neptali Dacosta on 02-02-2025 Lower GI hemoglobin IA Ql (Stl) Positive Abnormal [facility] Urinalysis, Completeon 02-02 BACTERIA Normal None Seen [facility] Comment on above: Order Comment: CLEAN CATCH Result Comment: DEPA RTED ER Performed By: #### L 400.0001 ####[facility] [address] [place], [place], [address] BILIRUBIN URINE Normal Negative [facility] Comment on above: Order Comment: CLEAN CATCH Result Comment: DEPA RTED ER Performed By: #### L 400.0001 ####[facility] [address] [place], [address] Clarity (U) Normal Clear [facility] Comment on above: Order Comment: CLEAN CATCH Result Comment: DEPA RTED ER Performed By: #### L 400.0001 ####[facility] [address] [place], [address] Color (U) Normal Yellow [facility] Comment on above: Order Comment: CLEAN CATCH Result Comment: DEPA RTED ER Performed By: #### L 400.0001 ####[facility] [address] [place], [address] EPI,SQUAMOUS Normal 5-10 [facility] Comment on above: Order Comment: CLEAN CATCH Result Comment: DEPA RTED ER Performed By: #### L 400.0001 ####[facility] [address] [place], [address] GLUCOSE, UR Normal Normal [facility] Comment on above: Order Comment: CLEAN CATCH Result Comment: DEPA RTED ER Performed By: #### L 400.0001 ####[facility] [address] [place], [address] KETONE UR Normal Negative [facility] Comment on above: Order Comment: CLEAN CATCH Result Comment: DEPA RTED ER Performed By: #### L 400.0001 ####[facility] [address] [place], [address] LEUK ESTERASE Normal Negative [facility] Comment on above: Order Comment: CLEAN CATCH Result Comment: DEPA RTED ER Performed By: #### L 400.0001 ####[facility] [address] [place], [address] Mucus Ql (Urine sed) Normal [facility] Comment on above: Order Comment: CLEAN CATCH Result Comment: DEPA RTED ER Performed By: #### L 400.0001 ####[facility] [address] [place], [address] Nitrite Ql (U) Normal Negative [facility] Comment on above: Order Comment: CLEAN CATCH Result Comment: DEPA RTED ER Performed By: #### L 400.0001 ####[facility] [address] [place], [address] OCCULT BLOOD-UR Normal Negative [facility] Comment on above: Order Comment: CLEAN CATCH Result Comment: DEPA RTED ER Performed By: #### L 400.0001 ####[facility] [address] [place], [address] pH UR Normal 5.0 - 8.0 [facility] Comment on above: Order Comment: CLEAN CATCH Result Comment: DEPA RTED ER Performed By: #### L 400.0001 ####[facility] [address] [place], [address] PROT DIPSTX Normal Negative [facility] Comment on above: Order Comment: CLEAN CATCH Result Comment: DEPA RTED ER Performed By: #### L 400.0001 ####[facility] [address] [place], [address] RBC Normal 0-5 [facility] Comment on above: Order Comment: CLEAN CATCH Result Comment: DEPA RTED ER Performed By: #### L 400.0001 ####[facility] [address] [place], [address] SP.GR. DIPSTX Normal 1.002-1.030 [facility] Comment on above: Order Comment: CLEAN CATCH Result Comment: DEPA RTED ER Performed By: #### L 400.0001 ####[facility] [address] [place], [address] UR Preservative Normal [facility] Comment on above: Order Comment: CLEAN CATCH Result Comment: DEPA RTED ER Performed By: #### L 400.0001 ####[facility] [address] [place], [address] UROBILI Normal Normal [facility] Comment on above: Order Comment: CLEAN CATCH Result Comment: DEPA RTED ER Performed By: #### L 400.0001 ####[facility] [address] [place], [address] WBC Normal 0-5 [facility] Comment on above: Order Comment: CLEAN CATCH Result Comment: DEPA RTED ER Performed By: #### L 400.0001 ####[facility] [address] [place], [address] White blood cell (WBC) count Ordered By: Neptali Dacosta on 02-02-2025 WBC (Bld) [#/Vol] 15.1 10*3/uL High 4.4-11.0 [facility] Brain/Head without Contrasto n 01-01-2025 Brain/Head without Contrast Normal [facility] Emergency Department Summary on 01-01-2025 Emergency Department Summary Normal [facility] Spine Cervical without Contr ason 01-01-2025 Spine Cervical without Contras Normal [facility] Brain/Head without Contrasto n 12-12-2024 Brain/Head without Contrast Normal [facility] Absolute lymphocyte countOrd ered By: Ed Bowman on 12-11-2024 Lymphocytes Auto (Unsp spec) [#/Vol] 3.11 10*3/uL 0.83-4.51 [facility] Absolute neutrophil countOrd ered By: Ed Bowman on 12-11-2024 Neutrophils (Bld) [#/Vol] 5.8 10*3/uL 2.0-7.7 [facility] Activated partial thrombopla stin time (aPTT) in platelet poor plasma by coagulation aOrdered By: Ed Bowman on 12-11-2024 aPTT Coag (PPP) [Time] 25.0 s 24.1-36.2 [facility] Anion gap in Serum or Plasma Ordered By: Ed Bowman on 12-11-2024 Anion gap [Moles/Vol] 12 mmol/L 5-15 [facility] Automated lymphocyte count a s percentage of total leukocytesOrdered By: Ed Bowman on 12-11-2024 Lymphocytes/100 WBC Auto (Unsp spec) 30.2 % 19-41 [facility] BUN/creatinine ratioOrdered By: Ed Bowman on 12-11-2024 Urea nitrogen/Creatinine [Mass ratio] 36.6 mg/mg High 10-20 [facility] Basophil percentageOrdered B y: Ed Bowman on 12-11-2024 Basophils/100 WBC (Bld) 1.0 % 0-1 [facility] Bilirubin, totalOrdered By: Ed Bowman on 12-11-2024 Bilirubin [Mass/Vol] 0.21 mg/dL 0.00-1.[address] [facility] CBC W/Diff, Automatedon Absolute Lymph 3.11 X10 3/uL Normal 0.83-4.51 [facility] Comment on above: Performed By: #### L 500.4100, L300.4310, L506.1001, L300.3900, L501.9520, L500.4050, L100.0100 ####[facility] [address] [place], [address] Absolute Neut 5.8 X10 3/uL Normal 2.0-7.7 [facility] Comment on above: Performed By: #### L 500.4100, L300.4310, L506.1001, L300.3900, L501.9520, L500.4050, L100.0100 ####[facility] [address] [place], [address] Basophils/100 WBC (Bld) 1.0 % Normal 0-1 [facility] Comment on above: Performed By: #### L 500.4100, L300.4310, L506.1001, L300.3900, L501.9520, L500.4050, L100.0100 ####[facility] [address] [place], [address] Eosinophils/100 WBC (Bld) 1.3 % Normal 0-5 [facility] Comment on above: Performed By: #### L 500.4100, L300.4310, L506.1001, L300.3900, L501.9520, L500.4050, L100.0100 ####[facility] [address] [place], [address] Erythrocyte distribution width (RBC) [Ratio] 13.6 % Normal 11.6-14.6 [facility] Comment on above: Performed By: #### L 500.4100, L300.4310, L506.1001, L300.3900, L501.9520, L500.4050, L100.0100 ####[facility] [address] [place], [address] Hematocrit (Bld) [Volume fraction] 42.5 % Normal 37-47 [facility] Comment on above: Performed By: #### L 500.4100, L300.4310, L506.1001, L300.3900, L501.9520, L500.4050, L100.0100 ####[facility] [address] [place], [address] Hemoglobin (Bld) [Mass/Vol] 13.9 g/dL Normal 12.0-15.0 [facility] Comment on above: Performed By: #### L 500.4100, L300.4310, L506.1001, L300.3900, L501.9520, L500.4050, L100.0100 ####[facility] [address] [place], [address] IG% 1.900 High 0.0-0.9 [facility] Comment on above: Result Comment: IG% - Immature Granulocytes (promyelocytes, myelocytes andmetamyelocytes) > 1% indicates that a LEFT SHIFT is Present. Performed By: #### L 500.4100, L300.4310, L506.1001, L300.3900, L501.9520, L500.4050, L100.0100 ####[facility] [address] [place], [address] Lymphocytes/100 WBC (Bld) 30.2 % Normal 19-41 [facility] Comment on above: Performed By: #### L 500.4100, L300.4310, L506.1001, L300.3900, L501.9520, L500.4050, L100.0100 ####[facility] [address] [place], [address] MCH (RBC) [Entitic mass] 30.5 pg Normal 27.0-32.0 [facility] Comment on above: Performed By: #### L 500.4100, L300.4310, L506.1001, L300.3900, L501.9520, L500.4050, L100.0100 ####[facility] [address] [place], [address] MCHC (RBC) [Mass/Vol] 32.7 g/dL Normal 32-36 [facility] Comment on above: Performed By: #### L 500.4100, L300.4310, L506.1001, L300.3900, L501.9520, L500.4050, L100.0100 ####[facility] [address] [place], [address] MCV (RBC) [Entitic vol] 93.2 fL Normal 81-99 [facility] Comment on above: Performed By: #### L 500.4100, L300.4310, L506.1001, L300.3900, L501.9520, L500.4050, L100.0100 ####[facility] [address] [place], [address] Monocytes/100 WBC (Bld) 9.3 % Normal 0-10 [facility] Comment on above: Performed By: #### L 500.4100, L300.4310, L506.1001, L300.3900, L501.9520, L500.4050, L100.0100 ####[facility] [address] [place], [address] Neutrophils/100 WBC (Bld) 56.3 % Normal 47-70 [facility] Comment on above: Performed By: #### L 500.4100, L300.4310, L506.1001, L300.3900, L501.9520, L500.4050, L100.0100 ####[facility] [address] [place], [address] Nucleated RBC (Bld) [#/Vol] 0 10*3/uL Normal 0-5 [facility] Comment on above: Performed By: #### L 500.4100, L300.4310, L506.1001, L300.3900, L501.9520, L500.4050, L100.0100 ####[facility] [address] [place], [address] Platelet mean volume (Bld) [Entitic vol] 9.6 fL Normal 6.2-12.0 [facility] Comment on above: Performed By: #### L 500.4100, L300.4310, L506.1001, L300.3900, L501.9520, L500.4050, L100.0100 ####[facility] [address] [place], [address] Platelets (Bld) [#/Vol] 289 10*3/uL Normal 150-450 [facility] Comment on above: Performed By: #### L 500.4100, L300.4310, L506.1001, L300.3900, L501.9520, L500.4050, L100.0100 ####[facility] [address] [place], [address] RBC (Bld) [#/Vol] 4.56 10*6/uL Normal 4.2-5.4 [facility] Comment on above: Performed By: #### L 500.4100, L300.4310, L506.1001, L300.3900, L501.9520, L500.4050, L100.0100 ####[facility] [address] [place], [address] RDW SD 46.5 fl High 35.1-43.9 [facility] Comment on above: Performed By: #### L 500.4100, L300.4310, L506.1001, L300.3900, L501.9520, L500.4050, L100.0100 ####[facility] [address] [place], [address] WBC (Bld) [#/Vol] 10.3 10*3/uL Normal 4.4-11.0 [facility] Comment on above: Performed By: #### L 500.4100, L300.4310, L506.1001, L300.3900, L501.9520, L500.4050, L100.0100 ####[facility] [address] [place], [address] Calculated very low density lipoprotein (VLDL) cholesterol measurementOrdered By: Ed Bowman on 12-11-2024 Calculated very low density lipoprotein (VLDL) cholesterol measurement 56 mg/dL High 5-40 [facility] Carbon dioxide, total [Moles /volume] in Central venous bloodOrdered By: Ed Bowman on 12-11-2024 CO2 [Moles/Vol] 22.7 mmol/L 21.0-32.0 [facility] Chloride assayOrdered By: Mihir Bowman on 12-11-2024 Chloride [Moles/Vol] 110 mmol/L High 98-[address] [facility] Comprehensive Metabolic Prof ilon 12-11-2024 Albumin [Mass/Vol] 3.8 g/dL Normal 3.4-4.8 [facility] Comment on above: Performed By: #### L 500.4100, L300.4310, L506.1001, L300.3900, L501.9520, L500.4050, L100.0100 ####[facility] [address] [place], [place], [id number] Albumin/Globulin [Mass ratio] 1.4 {ratio} Normal 0.9-2.4 [facility] Comment on above: Performed By: #### L 500.4100, L300.4310, L506.1001, L300.3900, L501.9520, L500.4050, L100.0100 ####[facility] [address] [place], [place], [id number] ALK PHOS 99 U/L Normal 35-104 [facility] Comment on above: Performed By: #### L 500.4100, L300.4310, L506.1001, L300.3900, L501.9520, L500.4050, L100.0100 ####[facility] [address] [place], [address] ALT [Catalytic activity/Vol] 16 U/L Normal <=34 [facility] Comment on above: Performed By: #### L 500.4100, L300.4310, L506.1001, L300.3900, L501.9520, L500.4050, L100.0100 ####[facility] [address] [place], [address] AST [Catalytic activity/Vol] 22 U/L Normal <=31 [facility] Comment on above: Performed By: #### L 500.4100, L300.4310, L506.1001, L300.3900, L501.9520, L500.4050, L100.0100 ####[facility] [address] [place], [address] Bilirubin [Mass/Vol] 0.21 mg/dL Normal 0.00-1.[address] [facility] Comment on above: Performed By: #### L 500.4100, L300.4310, L506.1001, L300.3900, L501.9520, L500.4050, L100.0100 ####[facility] [address] [place], [address] BUN/CRE 36.6 RATIO High 10-20 [facility] Comment on above: Performed By: #### L 500.4100, L300.4310, L506.1001, L300.3900, L501.9520, L500.4050, L100.0100 ####[facility] [address] [place], [address] Calcium [Mass/Vol] 9.2 mg/dL Normal 7.6-11.0 [facility] Comment on above: Performed By: #### L 500.4100, L300.4310, L506.1001, L300.3900, L501.9520, L500.4050, L100.0100 ####[facility] [address] [place], [address] Chloride [Moles/Vol] 110 mmol/L High 98-[address] [facility] Comment on above: Performed By: #### L 500.4100, L300.4310, L506.1001, L300.3900, L501.9520, L500.4050, L100.0100 ####[facility] [address] [place], [address] CO2 [Moles/Vol] 22.7 mmol/L Normal 21.0-32.0 [facility] Comment on above: Performed By: #### L 500.4100, L300.4310, L506.1001, L300.3900, L501.9520, L500.4050, L100.0100 ####[facility] [address] [place], [address] Creatinine [Mass/Vol] 0.71 mg/dL Normal 0.70-1.20 [facility] Comment on above: Performed By: #### L 500.4100, L300.4310, L506.1001, L300.3900, L501.9520, L500.4050, L100.0100 ####[facility] [address] [place], [address] GAP 12 Normal 5-15 [facility] Comment on above: Performed By: #### L 500.4100, L300.4310, L506.1001, L300.3900, L501.9520, L500.4050, L100.0100 ####[facility] [address] [place], [address] GFR/1.73 sq M.predicted among non-blacks MDRD (S/P/Bld) [Vol rate/Area] 88 mL/min/{1.73_m2} Normal >60 [facility] Comment on above: Result Comment: mL/m in/1.73m2 CKD-EPI Creatinine Equation (2020) Performed By: #### L 500.4100, L300.4310, L506.1001, L300.3900, L501.9520, L500.4050, L100.0100 ####[facility] [address] [place], [address] Globulin (S) [Mass/Vol] 2.6 g/dL Normal 2.2-4.2 [facility] Comment on above: Performed By: #### L 500.4100, L300.4310, L506.1001, L300.3900, L501.9520, L500.4050, L100.0100 ####[facility] [address] [place], [address] Glucose [Mass/Vol] 128 mg/dL High 70-99 [facility] Comment on above: Performed By: #### L 500.4100, L300.4310, L506.1001, L300.3900, L501.9520, L500.4050, L100.0100 ####[facility] [address] [place], [address] Potassium [Moles/Vol] 3.9 mmol/L Normal 3.3-5.1 [facility] Comment on above: Performed By: #### L 500.4100, L300.4310, L506.1001, L300.3900, L501.9520, L500.4050, L100.0100 ####[facility] [address] [place], [address] Sodium [Moles/Vol] 144 mmol/L Normal 133-145 [facility] Comment on above: Performed By: #### L 500.4100, L300.4310, L506.1001, L300.3900, L501.9520, L500.4050, L100.0100 ####[facility] [address] [place], [address] T PROT 6.4 g/dL Normal 5.9-8.4 [facility] Comment on above: Performed By: #### L 500.4100, L300.4310, L506.1001, L300.3900, L501.9520, L500.4050, L100.0100 ####[facility] [address] [place], [address] Urea nitrogen [Mass/Vol] 26 mg/dL High 4-19 [facility] Comment on above: Performed By: #### L 500.4100, L300.4310, L506.1001, L300.3900, L501.9520, L500.4050, L100.0100 ####[facility] [address] [place], [address] Eosinophil percentageOrdered By: Ed Bowman on 12-11-2024 Eosinophils/100 WBC (Bld) 1.3 % 0-5 [facility] Erythrocyte distribution wid th ratioOrdered By: Ed Bowman on 12-11-2024 Erythrocyte distribution width (RBC) [Ratio] 13.6 % 11.6-14.6 [facility] Erythrocyte distribution wid th standard deviationOrdered By: Ed Colby on 12-11-2024 Erythrocyte distribution width (RBC) [Ratio] 46.5 fl High 35.1-43.9 [facility] Glomerular filtration rate ( GFR) estimation/1.73 sq m using serum, plasma, or whole bOrdered By: Ed Bowman on 12-11-2024 GFR/1.73 sq M.predicted among non-blacks MDRD (S/P/Bld) [Vol rate/Area] 88 mL/min/{1.73_m2} >60 [facility] Comment on above: mL/min/1.73m2 CKD-EP I Creatinine Equation (2020) Hematocrit Auto (Bld) [Volum e fraction]Ordered By: Ed Bowman on 12-11-2024 Hematocrit (Bld) [Volume fraction] 42.5 % 37-47 [facility] Hemoglobin measurementOrdere d By: Ed Bowman on 12-11-2024 Hemoglobin (Bld) [Mass/Vol] 13.9 g/dL 12.0-15.0 [facility] Immature granulocytes/100 WB C Auto (Bld)Ordered By: Ed Bowman on 12-11-2024 Immature granulocytes/100 WBC (Bld) 1.900 % High 0.0-0.9 [facility] Comment on above: IG% - Immature Granu locytes (promyelocytes, myelocytes and metamyelocytes) > 1% indicates that a LEFT SHIFT is Present. International normalized rat io (INR) calculationOrdered By: Ed Bowman on 12-11-2024 INR Coag (Bld) [Relative time] 1.0 {INR} [facility] LDL calc ser/plasOrdered By: Ed Bowman on 12-11-2024 Cholesterol in LDL [Mass/Vol] 114 mg/dL [facility] Comment on above: Gjncfnrzid=532-660 m g/dL & Higher Sksy=426 mg/dL or greater Laboratory - Chemistry and C hemistry - challengeOrdered By: Ed Bowman on 12-11-2024 AST [Catalytic activity/Vol] 22 U/L <32 [facility] Lipid Profileon 12-11-2024 CHOL:HDL 5.08 Normal [facility] Comment on above: Performed By: #### L 500.4100, L300.4310, L506.1001, L300.3900, L501.9520, L500.4050, L100.0100 ####[facility] [address] [place], [place], [id number] Cholesterol [Mass/Vol] 211 mg/dL High <=200 [facility] Comment on above: Result Comment: Chol esterol level, Desirable <200 mg/dLBorderline high cholesterol 200-239 mg/dLHigh cholesterol >=240 mg/dLRecommendations of the NCEP Adult Treatment Panel for thefollowing risk-cutoff thresholds for the [place] [facility]. Performed By: #### L 500.4100, L300.4310, L506.1001, L300.3900, L501.9520, L500.4050, L100.0100 ####[facility] [address] [place], [address] Cholesterol in HDL [Mass/Vol] 42 mg/dL Normal [facility] Comment on above: Result Comment: Michelle onal Cholesterol Education Program (NCEP) guidelines:<40 mg/dL: Low HDL-cholesterol (major risk factor for CHD)>= 60 mg/dL: High HDL-cholesterol (negative risk factor forCHD)HDL-cholesterol is affected by a number of factors, e.g.smoking, exercise, hormones, sex and age. Performed By: #### L 500.4100, L300.4310, L506.1001, L300.3900, L501.9520, L500.4050, L100.0100 ####[facility] [address] [facility] [address] Cholesterol in LDL [Mass/Vol] 114 mg/dL Normal [facility] Comment on above: Result Comment: Bord lkakin=341-705 mg/dL Higher Cdes=667 mg/dL or greater Performed By: #### L 500.4100, L300.4310, L506.1001, L300.3900, L501.9520, L500.4050, L100.0100 ####[facility] [address] [place], [address] Cholesterol in VLDL [Mass/Vol] 56 mg/dL High 5-40 [facility] Comment on above: Performed By: #### L 500.4100, L300.4310, L506.1001, L300.3900, L501.9520, L500.4050, L100.0100 ####[facility] [address] [facility] [id number] Triglyceride [Mass/Vol] 279 mg/dL High [facility] Comment on above: Result Comment: The drugs N-Acetylcysteine and Metamizole may falselydepress this assay.Normal range: <150 mg/dLBorderline High: 150-199 mg/dLHigh: 200-499 mg/dLVery High: >500 mg/dL Performed By: #### L 500.4100, L300.4310, L506.1001, L300.3900, L501.9520, L500.4050, L100.0100 ####[facility] [address] [place], [place], [address] MCV (mean corpuscular volume ) determinationOrdered By: Ed Bowman on 12-11-2024 MCV (RBC) [Entitic vol] 93.2 fL 81-99 [facility] Mean corpuscular hemoglobin (MCH) determinationOrdered By: Ed Bowman on 12-11-2024 MCH (RBC) [Entitic mass] 30.5 pg 27.0-32.0 [facility] Mean corpuscular hemoglobin concentration (MCHC) determinationOrdered By: Ed Bowman on 12-11-2024 MCHC (RBC) [Mass/Vol] 32.7 g/dL 32-36 [facility] Mean platelet volume determi nationOrdered By: Ed Bowman on 12-11-2024 Platelet mean volume (Bld) [Entitic vol] 9.6 fL 6.2-12.0 [facility] Monocyte percentageOrdered B y: Ed Bowman on 12-11-2024 Monocytes/100 WBC (Bld) 9.3 % 0-10 [facility] Neutrophil percentageOrdered By: Ed Bowman on 12-11-2024 Neutrophils/100 WBC (Bld) 56.3 % 47-70 [facility] Nucleated red blood cell per centageOrdered By: Ed Bowman on 12-11-2024 Nucleated RBC/100 WBC (Bld) [Ratio] 0 % 0-5 [facility] Partial Thromboplast Timeon 12-11-2024 aPTT Coag (Bld) [Time] 25.0 s Normal 24.1-36.2 [facility] Comment on above: Performed By: #### L 500.4100, L300.4310, L506.1001, L300.3900, L501.9520, L500.4050, L100.0100 ####[facility] [address] [place], [address] Platelet countOrdered By: Mihir Bowman on 12-11-2024 Platelets (Bld) [#/Vol] 289 10*3/uL 150-450 [facility] Potassium measurement (mass/ volume)Ordered By: Ed Bowman on 12-11-2024 Potassium (Unsp spec) [Mass/Vol] 3.9 mmol/L 3.3-5.1 [facility] Prothrombin Time w/INRon INR Coag (PPP) [Relative time] 1.0 {INR} Normal [facility] Comment on above: Performed By: #### L 500.4100, L300.4310, L506.1001, L300.3900, L501.9520, L500.4050, L100.0100 ####[facility] [address] [place], [address] PT Coag (PPP) [Time] 13.1 s Normal 11.7-14.[address] [facility] Comment on above: Performed By: #### L 500.4100, L300.4310, L506.1001, L300.3900, L501.9520, L500.4050, L100.0100 ####[facility] [address] [place], [address] Prothrombin timeOrdered By: Ed Bowman on 12-11-2024 PT Coag (PPP) [Time] 13.1 s 11.7-14.[address] [facility] RBC Auto (Bld) [#/Vol]Ordere d By: Ed Bowman on 12-11-2024 RBC (Bld) [#/Vol] 4.56 10*6/uL 4.2-5.4 [facility] Screening total cholesterol/ high density lipoprotein (HDL) cholesterol ratioOrdered By: Ed Bowman on 12-11-2024 Cholesterol.total/Mikayla sterol in HDL [Mass ratio] 5.08 {ratio} [facility] Serum creatinine measurement (mass/volume)Ordered By: Ed Bowman on 12-11-2024 Creatinine [Mass/Vol] 0.71 mg/dL 0.70-1.20 [facility] Serum globulin measurementOr dered By: Ed Bowman on 12-11-2024 Globulin (S) [Mass/Vol] 2.6 g/dL 2.2-4.2 [facility] Serum glucose measurement (m ass/volume)Ordered By: Ed Bowman on 12-11-2024 Glucose [Mass/Vol] 128 mg/dL High 70-99 [facility] Serum or plasma alanine cooper otransferase (ALT) measurementOrdered By: Ed Bowman 12-11-2024 ALT [Catalytic activity/Vol] 16 U/L <35 [facility] Serum or plasma albumin raine urement (mass/volume)Ordered By: Ed Bowman on 12-11-2024 Albumin [Mass/Vol] 3.8 g/dL 3.4-4.8 [facility] Serum or plasma albumin/glob ulin mass ratioOrdered By: Ed Bowman 12-11-2024 Albumin/Globulin [Mass ratio] 1.4 {ratio} 0.9-2.4 [facility] Serum or plasma alkaline haven sphatase measurementOrdered By: Ed Bowman 12-11-2024 ALP [Catalytic activity/Vol] 99 U/L 35-104 [facility] Serum or plasma calcium raine urement (mass/volume)Ordered By: Ed Bowman 12-11-2024 Calcium [Mass/Vol] 9.2 mg/dL 7.6-11.0 [facility] Serum or plasma cholesterol in HDL measurement (mass/volume)Ordered By: Ed Bowman on 12-11-2024 Cholesterol in HDL [Mass/Vol] 42 mg/dL >40 [facility] Comment on above: National Cholesterol Education Program (NCEP) guidelines:<40 mg/dL: Low HDL-cholesterol (major risk factor for CHD)>= 60 mg/dL: High HDL-cholesterol (negative risk factor for CHD)HDL-cholesterol is affected by a number of factors, e.g. smoking, exercise, hormones, sex and age. Serum or plasma cholesterol measurement (mass/volume)Ordered By: Ed Bowman on 12-11-2024 Cholesterol [Mass/Vol] 211 mg/dL High <201 [facility] Comment on above: Cholesterol level, D esirable <200 mg/dLBorderline high cholesterol 200-239 mg/dLHigh cholesterol >=240 mg/dLRecommendations of the NCEP Adult Treatment Panel for the following risk-cutoff thresholds for the [place] population. Serum or plasma urea nitroge n measurement (mass/volume)Ordered By: Ed Bowman on 12-11-2024 Urea nitrogen [Mass/Vol] 26 mg/dL High 4-19 [facility] Sodium levelOrdered By: Ed Bowman on 12-11-2024 Sodium [Moles/Vol] 144 mmol/L 133-145 [facility] TSH DL <= 0.005 mIU/L QnOrde red By: Ed Bowman on 12-11-2024 TSH Qn 1.090 uIU/mL 0.300-4.200 [facility] Thyroid Stim Hormone (TSH)on 12-11-2024 TSH 1.090 uIU/mL Normal 0.300-4.200 [facility] Comment on above: Performed By: #### L 500.4100, L300.4310, L506.1001, L300.3900, L501.9520, L500.4050, L100.0100 ####[facility] [address] [place], [address] Total proteinOrdered By: Ed Bowman on 12-11-2024 Protein [Mass/Vol] 6.4 g/dL 5.9-8.4 [facility] Triglycerides measurementOrd ered By: Ed Bowman on 12-11-2024 Triglyceride [Mass/Vol] 279 mg/dL High <199 [facility] Comment on above: The drugs N-Acetylcy steine and Metamizole may falsely depress this assay. Normal range: <150 mg/dLBorderline High: 150-199 mg/dLHigh: 200-499 mg/dLVery High: >500 mg/dL Vitamin D,25 Hydroxyon 12-11 Vitamin D 25-OH 28.4 ng/mL Low 30-100 [facility] Comment on above: Result Comment: Luda min D StatusDeficiency: <20 ng/mL (50nmol/L)Insufficiency: 20-30 ng/mL (50-75 nmol/L)Sufficiency: 30-100 ng/mL (75-250 nmol/L)Toxicity: >100 ng/mL (>250 nmol/L) Performed By: #### L 500.4100, L300.4310, L506.1001, L300.3900, L501.9520, L500.4050, L100.0100 ####[facility] [address] [place], [address] White blood cell (WBC) count Ordered By: Ed Bowman on 12-11-2024 WBC (Bld) [#/Vol] 10.3 10*3/uL 4.4-11.0 [facility] Brain/Head without Contrasto n 12-05-2024 Brain/Head without Contrast Normal [facility] Emergency Department Summary on 12-05-2024 Emergency Department Summary Normal [facility] Spine Cervical without Contr ason 12-05-2024 Spine Cervical without Contras Normal [facility] Breast imaging reportOrdered By: Citlali Horne on 11-29-2024 Study report [facility] Imaging Services [address] [place] [address] SCRN MAMM (CAD)W/ARNULFO BILAT MR#: [id number] Acct: [id number] Name: BARBARA GLASS Rep #: [id number] : 1950 F 74 From: Chloé Horne MD PCP: Dr. Ed Bowman MD Status: DARION NG Study:SCRN MAMM (CAD)W/ARNULFO BILAT Date of Exa m: 11/29/24 Exam# [id number] Ordering Dr: Ke Saeed MD EXAM: SCRN [...] be mailed to the patient. Reading Location: [facility] CC: Dr. Ke Saeed MD; Dr. Ed Bowman MD ~ Chemical Pumper: Signed [facility] SCRN MAMM (CAD)W/ARNULFO BILATo n 11-29-2024 SCRN MAMM (CAD)W/ARNULFO BILAT Normal [facility] Brain/Head without Contrasto n 11-26-2024 Brain/Head without Contrast Normal [facility] Emergency Department Summary on 11-26-2024 Emergency Department Summary Normal [facility] Spine Cervical without Contr ason 11-26-2024 Spine Cervical without Contras Normal [facility] Wound Cultureon 11-24-2024 WC Pending Staphylococcus epidermidis [...] R Vancomycin Islt TEETEE 1 S Normal [facility] Comment on above: Performed By: #### M 100.2000, M100.3000 #### [facility] [place], [address] Gram Stainon 11-22-2024 GS Gram Stain 1+ Gram negative rods Rare Gram positive cocci No cells seen Normal [facility] Comment on above: Performed By: #### M 100.2000, M100.3000 #### [facility] Kassie Garcia [place], [address] Gram stainOrdered By: Ed marion on 11-21-2024 Microscopic observation Gram stain Nom (Unsp spec) [facility] Routine wound cultureOrdered By: Ed Bowman on 11-21-2024 Microbial culture, routine Staphylococcus epidermidis Abnormal [facility] Absolute lymphocyte countOrd ered By: Nelson Hobson on 11-20-2024 Lymphocytes Auto (Unsp spec) [#/Vol] 2.95 10*3/uL 0.83-4.51 [facility] Absolute neutrophil countOrd ered By: Nelson Hobson on 11-20-2024 Neutrophils (Bld) [#/Vol] 7.4 10*3/uL 2.0-7.7 [facility] Anion gap in Serum or Plasma Ordered By: Nelson Hobson on 11-20-2024 Anion gap [Moles/Vol] 13 mmol/L 5-15 [facility] Automated lymphocyte count a s percentage of total leukocytesOrdered By: Nelson Hobson on 11-20-2024 Lymphocytes/100 WBC Auto (Unsp spec) 24.6 % 19-41 [facility] BUN/creatinine ratioOrdered By: Nelson Hobson on 11-20-2024 Urea nitrogen/Creatinine [Mass ratio] 25.9 mg/mg High 10-20 [facility] Basophil percentageOrdered B y: Nelson Hobson on 11-20-2024 Basophils/100 WBC (Bld) 0.8 % 0-1 [facility] Bilirubin, totalOrdered By: Nelson Hobson on 11-20-2024 Bilirubin [Mass/Vol] 0.33 mg/dL 0.00-1.[address] [facility] CBC W/Diff, Automatedon 11-09 Absolute Lymph 2.95 X10 3/uL Normal 0.83-4.51 [facility] Comment on above: Performed By: #### L 100.0100, L500.4050, L504.2610, L300.8000 ####[facility] [address] [place], [address] Absolute Neut 7.4 X10 3/uL Normal 2.0-7.7 [facility] Comment on above: Performed By: #### L 100.0100, L500.4050, L504.2610, L300.8000 ####[facility] [address] [place], [address] Basophils/100 WBC (Bld) 0.8 % Normal 0-1 [facility] Comment on above: Performed By: #### L 100.0100, L500.4050, L504.2610, L300.8000 ####[facility] [address] [place], [address] Eosinophils/100 WBC (Bld) 0.6 % Normal 0-5 [facility] Comment on above: Performed By: #### L 100.0100, L500.4050, L504.2610, L300.8000 ####[facility] [address] [place], [address] Erythrocyte distribution width (RBC) [Ratio] 13.5 % Normal 11.6-14.6 [facility] Comment on above: Performed By: #### L 100.0100, L500.4050, L504.2610, L300.8000 ####[facility] [address] [place], [address] Hematocrit (Bld) [Volume fraction] 42.9 % Normal 37-47 [facility] Comment on above: Performed By: #### L 100.0100, L500.4050, L504.2610, L300.8000 ####[facility] [address] [place], [address] Hemoglobin (Bld) [Mass/Vol] 14.7 g/dL Normal 12.0-15.0 [facility] Comment on above: Performed By: #### L 100.0100, L500.4050, L504.2610, L300.8000 ####[facility] [address] [place], [address] IG% 2.400 High 0.0-0.9 [facility] Comment on above: Result Comment: IG% - Immature Granulocytes (promyelocytes, myelocytes andmetamyelocytes) > 1% indicates that a LEFT SHIFT is Present. Performed By: #### L 100.0100, L500.4050, L504.2610, L300.8000 ####[facility] [address] [place], [address] Lymphocytes/100 WBC (Bld) 24.6 % Normal 19-41 [facility] Comment on above: Performed By: #### L 100.0100, L500.4050, L504.2610, L300.8000 ####[facility] [address] [place], [address] MCH (RBC) [Entitic mass] 30.9 pg Normal 27.0-32.0 [facility] Comment on above: Performed By: #### L 100.0100, L500.4050, L504.2610, L300.8000 ####[facility] [address] [place], [address] MCHC (RBC) [Mass/Vol] 34.3 g/dL Normal 32-36 [facility] Comment on above: Performed By: #### L 100.0100, L500.4050, L504.2610, L300.8000 ####[facility] [address] [place], [address] MCV (RBC) [Entitic vol] 90.1 fL Normal 81-99 [facility] Comment on above: Performed By: #### L 100.0100, L500.4050, L504.2610, L300.8000 ####[facility] [address] [place], [address] Monocytes/100 WBC (Bld) 9.5 % Normal 0-10 [facility] Comment on above: Performed By: #### L 100.0100, L500.4050, L504.2610, L300.8000 ####[facility] [address] [place], [address] Neutrophils/100 WBC (Bld) 62.1 % Normal 47-70 [facility] Comment on above: Performed By: #### L 100.0100, L500.4050, L504.2610, L300.8000 ####[facility] [address] [place], [address] Nucleated RBC (Bld) [#/Vol] 0 10*3/uL Normal 0-5 [facility] Comment on above: Performed By: #### L 100.0100, L500.4050, L504.2610, L300.8000 ####[facility] [address] [place], [address] Platelet mean volume (Bld) [Entitic vol] 9.3 fL Normal 6.2-12.0 [facility] Comment on above: Performed By: #### L 100.0100, L500.4050, L504.2610, L300.8000 ####[facility] [address] [place], [address] Platelets (Bld) [#/Vol] 310 10*3/uL Normal 150-450 [facility] Comment on above: Performed By: #### L 100.0100, L500.4050, L504.2610, L300.8000 ####[facility] [address] [place], [address] RBC (Bld) [#/Vol] 4.76 10*6/uL Normal 4.2-5.4 [facility] Comment on above: Performed By: #### L 100.0100, L500.4050, L504.2610, L300.8000 ####[facility] [address] [place], [address] RDW SD 44.8 fl High 35.1-43.9 [facility] Comment on above: Performed By: #### L 100.0100, L500.4050, L504.2610, L300.8000 ####[facility] [address] [place], [address] WBC (Bld) [#/Vol] 12.0 10*3/uL High 4.4-11.0 [facility] Comment on above: Performed By: #### L 100.0100, L500.4050, L504.2610, L300.8000 ####[facility] [address] [place], [address] Carbon dioxide, total [Moles /volume] in Central venous bloodOrdered By: Nelson Hobson on 11-20-2024 CO2 [Moles/Vol] 22.4 mmol/L 21.0-32.0 [facility] Chloride assayOrdered By: Niya Hobson on 11-20-2024 Chloride [Moles/Vol] 106 mmol/L 98-[address] [facility] Comprehensive Metabolic Prof ilon 11-20-2024 Albumin [Mass/Vol] 4.0 g/dL Normal 3.4-4.8 [facility] Comment on above: Performed By: #### L 100.0100, L500.4050, L504.2610, L300.8000 ####[facility] [address] [place], [address] Albumin/Globulin [Mass ratio] 1.4 {ratio} Normal 0.9-2.4 [facility] Comment on above: Performed By: #### L 100.0100, L500.4050, L504.2610, L300.8000 ####[facility] [address] [place], [address] ALK PHOS 107 U/L High 35-104 [facility] Comment on above: Performed By: #### L 100.0100, L500.4050, L504.2610, L300.8000 ####[facility] [address] [place], [address] ALT [Catalytic activity/Vol] 11 U/L Normal <=34 [facility] Comment on above: Performed By: #### L 100.0100, L500.4050, L504.2610, L300.8000 ####[facility] [address] [place], [address] AST [Catalytic activity/Vol] 20 U/L Normal <=31 [facility] Comment on above: Performed By: #### L 100.0100, L500.4050, L504.2610, L300.8000 ####[facility] [address] [place], [address] Bilirubin [Mass/Vol] 0.33 mg/dL Normal 0.00-1.[address] [facility] Comment on above: Performed By: #### L 100.0100, L500.4050, L504.2610, L300.8000 ####[facility] [address] [place], [address] BUN/CRE 25.9 RATIO High 10-20 [facility] Comment on above: Performed By: #### L 100.0100, L500.4050, L504.2610, L300.8000 ####[facility] [address] [place], [address] Calcium [Mass/Vol] 9.0 mg/dL Normal 7.6-11.0 [facility] Comment on above: Performed By: #### L 100.0100, L500.4050, L504.2610, L300.8000 ####[facility] [address] [place], [address] Chloride [Moles/Vol] 106 mmol/L Normal 98-[address] [facility] Comment on above: Performed By: #### L 100.0100, L500.4050, L504.2610, L300.8000 ####[facility] [address] [place], [address] CO2 [Moles/Vol] 22.4 mmol/L Normal 21.0-32.0 [facility] Comment on above: Performed By: #### L 100.0100, L500.4050, L504.2610, L300.8000 ####[facility] [address] [place], [address] Creatinine [Mass/Vol] 0.95 mg/dL Normal 0.70-1.20 [facility] Comment on above: Performed By: #### L 100.0100, L500.4050, L504.2610, L300.8000 ####[facility] [address] [place], [address] ECRCL 54.01 ml/min Normal 50-250 [facility] Comment on above: Performed By: #### L 100.0100, L500.4050, L504.2610, L300.8000 ####[facility] [address] [place], [address] GAP 13 Normal 5-15 [facility] Comment on above: Performed By: #### L 100.0100, L500.4050, L504.2610, L300.8000 ####[facility] [address] [place], [address] GFR/1.73 sq M.predicted among non-blacks MDRD (S/P/Bld) [Vol rate/Area] 62 mL/min/{1.73_m2} Normal >60 [facility] Comment on above: Result Comment: mL/m in/1.73m2 CKD-EPI Creatinine Equation (2020) Performed By: #### L 100.0100, L500.4050, L504.2610, L300.8000 ####[facility] [address] [place], [address] Globulin (S) [Mass/Vol] 2.7 g/dL Normal 2.2-4.2 [facility] Comment on above: Performed By: #### L 100.0100, L500.4050, L504.2610, L300.8000 ####[facility] [address] [place], [address] Glucose [Mass/Vol] 116 mg/dL High 70-99 [facility] Comment on above: Performed By: #### L 100.0100, L500.4050, L504.2610, L300.8000 ####[facility] [address] [place], [address] Potassium [Moles/Vol] 3.6 mmol/L Normal 3.3-5.1 [facility] Comment on above: Performed By: #### L 100.0100, L500.4050, L504.2610, L300.8000 ####[facility] [address] [place], [address] Sodium [Moles/Vol] 141 mmol/L Normal 133-145 [facility] Comment on above: Performed By: #### L 100.0100, L500.4050, L504.2610, L300.8000 ####[facility] [address] [place], [address] T PROT 6.7 g/dL Normal 5.9-8.4 [facility] Comment on above: Performed By: #### L 100.0100, L500.4050, L504.2610, L300.8000 ####[facility] [address] [place], [address] Urea nitrogen [Mass/Vol] 25 mg/dL High 4-19 [facility] Comment on above: Performed By: #### L 100.0100, L500.4050, L504.2610, L300.8000 ####[facility] [address] [place], [place], [address] D-Dimer Quantitative (DVT/PE )on 11-20-2024 D-DIMER QUANT 1.24 FEU/ug/m Invalid Interpretation Code 0.27-0.49 [facility] Comment on above: Result Comment: D-Di sterling ELEVATED (>0.49): Additional studies and clinicalassessments are indicated to conclude diagnosis of:Deep Vein Thrombosis (DVT) or Pulmonary Embolism (PE)CRITICAL VALUE CALLED TO LEXA MATHIAS (ONC)11/20/24 6856 Iggy Qiu.RESULTS READ BACK BY SAME. Performed By: #### L 100.0100, L500.4050, L504.2610, L300.8000 ####[facility] [address] [place], [place], [id number] Eosinophil percentageOrdered By: Nelson Hobson on 11-20-2024 Eosinophils/100 WBC (Bld) 0.6 % 0-5 [facility] Erythrocyte distribution wid th ratioOrdered By: Nelson Hobson on 11-20-2024 Erythrocyte distribution width (RBC) [Ratio] 13.5 % 11.6-14.6 [facility] Erythrocyte distribution wid th standard deviationOrdered By: Nelson Hobson on 11-20-2024 Erythrocyte distribution width (RBC) [Ratio] 44.8 fl High 35.1-43.9 [facility] Glomerular filtration rate ( GFR) estimation/1.73 sq m using serum, plasma, or whole bOrdered By: Nelson Hobson on 11-20-2024 GFR/1.73 sq M.predicted among non-blacks MDRD (S/P/Bld) [Vol rate/Area] 62 mL/min/{1.73_m2} >60 [facility] Comment on above: mL/min/1.73m2 CKD-EP I Creatinine Equation (2020) Hematocrit Auto (Bld) [Volum e fraction]Ordered By: Nelson Hobson on 11-20-2024 Hematocrit (Bld) [Volume fraction] 42.9 % 37-47 [facility] Hemoglobin measurementOrdere d By: Nelson Hobsno on 11-20-2024 Hemoglobin (Bld) [Mass/Vol] 14.7 g/dL 12.0-15.0 [facility] Immature granulocytes/100 WB C Auto (Bld)Ordered By: Nelson Hobson on 11-20-2024 Immature granulocytes/100 WBC (Bld) 2.400 % High 0.0-0.9 [facility] Comment on above: IG% - Immature Granu locytes (promyelocytes, myelocytes and metamyelocytes) > 1% indicates that a LEFT SHIFT is Present. LDHon 11-20-2024 LDH 258 U/L High 84-246 [facility] Comment on above: Order Comment: 1 Performed By: #### L 100.0100, L500.4050, L504.2610, L300.8000 ####[facility] [address] [place], [address] Laboratory - Chemistry and C hemistry - challengeOrdered By: Nelson Hobson on 11-20-2024 AST [Catalytic activity/Vol] 20 U/L <32 [facility] Lactate dehydrogenase (LDH) measurementOrdered By: Nelson Hobson on 11-20-2024 LDH [Catalytic activity/Vol] 258 U/L High 84-246 [facility] MCV (mean corpuscular volume ) determinationOrdered By: Nelson Hobson on 11-20-2024 MCV (RBC) [Entitic vol] 90.1 fL 81-99 [facility] Mean corpuscular hemoglobin (MCH) determinationOrdered By: Nelson Hobson on 11-20-2024 MCH (RBC) [Entitic mass] 30.9 pg 27.0-32.0 [facility] Mean corpuscular hemoglobin concentration (MCHC) determinationOrdered By: Nelson Hobson on 11-20-2024 MCHC (RBC) [Mass/Vol] 34.3 g/dL 32-36 [facility] Mean platelet volume determi nationOrdered By: Nelson Hobson on 11-20-2024 Platelet mean volume (Bld) [Entitic vol] 9.3 fL 6.2-12.0 [facility] Monocyte percentageOrdered B y: Nelson Hobson on 11-20-2024 Monocytes/100 WBC (Bld) 9.5 % 0-10 [facility] Neutrophil percentageOrdered By: Nelson Hobson on 11-20-2024 Neutrophils/100 WBC (Bld) 62.1 % 47-70 [facility] Nucleated red blood cell per centageOrdered By: Nelson Hobson on 11-20-2024 Nucleated RBC/100 WBC (Bld) [Ratio] 0 % 0-5 [facility] Oncology Visit Reporton 11-09 Oncology Visit Report Normal [facility] Platelet countOrdered By: Niya Hobson on 11-20-2024 Platelets (Bld) [#/Vol] 310 10*3/uL 150-450 [facility] Potassium measurement (mass/ volume)Ordered By: Nelson Hobson on 11-20-2024 Potassium (Unsp spec) [Mass/Vol] 3.6 mmol/L 3.3-5.1 [facility] RBC Auto (Bld) [#/Vol]Ordere d By: Nelson Hobson on 11-20-2024 RBC (Bld) [#/Vol] 4.76 10*6/uL 4.2-5.4 [facility] Serum creatinine measurement (mass/volume)Ordered By: Nelson Hobson on 11-20-2024 Creatinine [Mass/Vol] 0.95 mg/dL 0.70-1.20 [facility] Serum globulin measurementOr dered By: Nelson Hobson on 11-20-2024 Globulin (S) [Mass/Vol] 2.7 g/dL 2.2-4.2 [facility] Serum glucose measurement (m ass/volume)Ordered By: Nelson Hobson on 11-20-2024 Glucose [Mass/Vol] 116 mg/dL High 70-99 [facility] Serum or plasma alanine cooper otransferase (ALT) measurementOrdered By: Nelson Hobson on 11-20-2024 ALT [Catalytic activity/Vol] 11 U/L <35 [facility] Serum or plasma albumin raine urement (mass/volume)Ordered By: Nelson Hobson on 11-20-2024 Albumin [Mass/Vol] 4.0 g/dL 3.4-4.8 [facility] Serum or plasma albumin/glob ulin mass ratioOrdered By: Nelson Hobson on 11-20-2024 Albumin/Globulin [Mass ratio] 1.4 {ratio} 0.9-2.4 [facility] Serum or plasma alkaline haven sphatase measurementOrdered By: Nelson Hobson on 11-20-2024 ALP [Catalytic activity/Vol] 107 U/L High 35-104 [facility] Serum or plasma calcium raine urement (mass/volume)Ordered By: Nelson Hobson on 11-20-2024 Calcium [Mass/Vol] 9.0 mg/dL 7.6-11.0 [facility] Serum or plasma urea nitroge n measurement (mass/volume)Ordered By: Nelson Hobson on 11-20-2024 Urea nitrogen [Mass/Vol] 25 mg/dL High 4-19 [facility] Sodium levelOrdered By: Venu Hobson on 11-20-2024 Sodium [Moles/Vol] 141 mmol/L 133-145 [facility] Total proteinOrdered By: Dickson Hobson on 11-20-2024 Protein [Mass/Vol] 6.7 g/dL 5.9-8.4 [facility] White blood cell (WBC) count Ordered By: Nelson Hobson on 11-20-2024 WBC (Bld) [#/Vol] 12.0 10*3/uL High 4.4-11.0 [facility] Shoulder min 2 Viewson 11-09 Shoulder min 2 Views Normal [facility] Urine Cultureon 11-08-2024 URC Normal [facility] Comment on above: Performed By: #### M 100.2200 ####[facility] [address] [place], [address] 12 Lead EKGon 11-05-2024 12 Lead EKG Normal [facility] Absolute lymphocyte countOrd ered By: Chato Yang on 11-05-2024 Lymphocytes Auto (Unsp spec) [#/Vol] 2.45 10*3/uL 0.83-4.51 [facility] Absolute neutrophil countOrd ered By: Chato Yang on 11-05-2024 Neutrophils (Bld) [#/Vol] 4.8 10*3/uL 2.0-7.7 [facility] Anion gap in Serum or Plasma Ordered By: Chato Yang on 11-05-2024 Anion gap [Moles/Vol] 12 mmol/L 5- [facility] Automated lymphocyte count a s percentage of total leukocytesOrdered By: Chato Yang on 11-05-2024 Lymphocytes/100 WBC Auto (Unsp spec) 29.2 % 19- [facility] BUN/creatinine ratioOrdered By: Chato Yang on 11-05-2024 Urea nitrogen/Creatinine [Mass ratio] 19.6 mg/mg 10- [facility] Basophil percentageOrdered B y: Chato Yang on 11-05-2024 Basophils/100 WBC (Bld) 0.6 % 0-1 [facility] Bilirubin Test strip Ql (U)O rdered By: Chato Yang on 11-05-2024 Bilirubin Ql (U) Negative Negative [facility] Bilirubin, totalOrdered By: Chato Yang on 11-05-2024 Bilirubin [Mass/Vol] 0.54 mg/dL 0.00-1.[address] [facility] CBC W/Diff, Automatedon 10-11 Absolute Lymph 2.45 X10 3/uL Normal 0.83-4.51 [facility] Comment on above: Performed By: #### L 501.4021, L100.0100, L501.2450, L500.4050 ####[facility] [address] [place], [address] Absolute Neut 4.8 X10 3/uL Normal 2.0-7.7 [facility] Comment on above: Performed By: #### L 501.4021, L100.0100, L501.2450, L500.4050 ####[facility] [address] [place], [address] Basophils/100 WBC (Bld) 0.6 % Normal 0-1 [facility] Comment on above: Performed By: #### L 501.4021, L100.0100, L501.2450, L500.4050 ####[facility] [address] [place], [address] Eosinophils/100 WBC (Bld) 0.5 % Normal 0-5 [facility] Comment on above: Performed By: #### L 501.4021, L100.0100, L501.2450, L500.4050 ####[facility] [address] [place], [address] Erythrocyte distribution width (RBC) [Ratio] 13.3 % Normal 11.6-14.6 [facility] Comment on above: Performed By: #### L 501.4021, L100.0100, L501.2450, L500.4050 ####[facility] [address] [place], [address] Hematocrit (Bld) [Volume fraction] 42.3 % Normal 37-47 [facility] Comment on above: Performed By: #### L 501.4021, L100.0100, L501.2450, L500.4050 ####[facility] [address] [place], [address] Hemoglobin (Bld) [Mass/Vol] 14.7 g/dL Normal 12.0-15.0 [facility] Comment on above: Performed By: #### L 501.4021, L100.0100, L501.2450, L500.4050 ####[facility] [address] [place], [address] IG% 1.300 High 0.0-0.9 [facility] Comment on above: Result Comment: IG% - Immature Granulocytes (promyelocytes, myelocytes andmetamyelocytes) > 1% indicates that a LEFT SHIFT is Present. Performed By: #### L 501.4021, L100.0100, L501.2450, L500.4050 ####[facility] [address] [place], [address] Lymphocytes/100 WBC (Bld) 29.2 % Normal 19-41 [facility] Comment on above: Performed By: #### L 501.4021, L100.0100, L501.2450, L500.4050 ####[facility] [address] [place], [address] MCH (RBC) [Entitic mass] 31.2 pg Normal 27.0-32.0 [facility] Comment on above: Performed By: #### L 501.4021, L100.0100, L501.2450, L500.4050 ####[facility] [address] [place], [address] MCHC (RBC) [Mass/Vol] 34.8 g/dL Normal 32-36 [facility] Comment on above: Performed By: #### L 501.4021, L100.0100, L501.2450, L500.4050 ####[facility] [address] [place], [address] MCV (RBC) [Entitic vol] 89.8 fL Normal 81-99 [facility] Comment on above: Performed By: #### L 501.4021, L100.0100, L501.2450, L500.4050 ####[facility] [address] [place], [address] Monocytes/100 WBC (Bld) 11.1 % High 0-10 [facility] Comment on above: Performed By: #### L 501.4021, L100.0100, L501.2450, L500.4050 ####[facility] [address] [place], [address] Neutrophils/100 WBC (Bld) 57.3 % Normal 47-70 [facility] Comment on above: Performed By: #### L 501.4021, L100.0100, L501.2450, L500.4050 ####[facility] [address] [place], [address] Nucleated RBC (Bld) [#/Vol] 0 10*3/uL Normal 0-5 [facility] Comment on above: Performed By: #### L 501.4021, L100.0100, L501.2450, L500.4050 ####[facility] [address] [place], [address] Platelet mean volume (Bld) [Entitic vol] 8.7 fL Normal 6.2-12.0 [facility] Comment on above: Performed By: #### L 501.4021, L100.0100, L501.2450, L500.4050 ####[facility] [address] [place], [address] Platelets (Bld) [#/Vol] 238 10*3/uL Normal 150-450 [facility] Comment on above: Performed By: #### L 501.4021, L100.0100, L501.2450, L500.4050 ####[facility] [address] [place], [address] RBC (Bld) [#/Vol] 4.71 10*6/uL Normal 4.2-5.4 [facility] Comment on above: Performed By: #### L 501.4021, L100.0100, L501.2450, L500.4050 ####[facility] [address] [place], [address] RDW SD 43.9 fl Normal 35.1-43.9 [facility] Comment on above: Performed By: #### L 501.4021, L100.0100, L501.2450, L500.4050 ####[facility] [address] [place], [address] WBC (Bld) [#/Vol] 8.4 10*3/uL Normal 4.4-11.0 [facility] Comment on above: Performed By: #### L 501.4021, L100.0100, L501.2450, L500.4050 ####[facility] [address] [place], [address] Carbon dioxide, total [Moles /volume] in Central venous bloodOrdered By: Chato Yang on 11-05-2024 CO2 [Moles/Vol] 23.0 mmol/L 21.0-32.0 [facility] Chloride assayOrdered By: Crow Yang on 11-05-2024 Chloride [Moles/Vol] 105 mmol/L 98-[address] [facility] Comprehensive Metabolic Prof ilon 11-05-2024 Albumin [Mass/Vol] 3.8 g/dL Normal 3.4-4.8 [facility] Comment on above: Performed By: #### L 501.4021, L100.0100, L501.2450, L500.4050 ####[facility] [address] [place], [address] Albumin/Globulin [Mass ratio] 1.4 {ratio} Normal 0.9-2.4 [facility] Comment on above: Performed By: #### L 501.4021, L100.0100, L501.2450, L500.4050 ####[facility] [address] [place], [address] ALK PHOS 74 U/L Normal 35-104 [facility] Comment on above: Performed By: #### L 501.4021, L100.0100, L501.2450, L500.4050 ####[facility] [address] [place], [address] ALT [Catalytic activity/Vol] 11 U/L Normal <=34 [facility] Comment on above: Performed By: #### L 501.4021, L100.0100, L501.2450, L500.4050 ####[facility] [address] [place], [address] AST [Catalytic activity/Vol] 26 U/L Normal <=31 [facility] Comment on above: Result Comment: Hemo lysis present, Results??could be affected.?? Performed By: #### L 501.4021, L100.0100, L501.2450, L500.4050 ####[facility] [address] [place], [address] Bilirubin [Mass/Vol] 0.54 mg/dL Normal 0.00-1.[address] [facility] Comment on above: Performed By: #### L 501.4021, L100.0100, L501.2450, L500.4050 ####[facility] [address] [place], [address] BUN/CRE 19.6 RATIO Normal 10-20 [facility] Comment on above: Performed By: #### L 501.4021, L100.0100, L501.2450, L500.4050 ####[facility] [address] [place], [address] Calcium [Mass/Vol] 9.2 mg/dL Normal 7.6-11.0 [facility] Comment on above: Performed By: #### L 501.4021, L100.0100, L501.2450, L500.4050 ####[facility] [address] [place], [address] Chloride [Moles/Vol] 105 mmol/L Normal 98-[address] [facility] Comment on above: Performed By: #### L 501.4021, L100.0100, L501.2450, L500.4050 ####[facility] [address] [place], [address] CO2 [Moles/Vol] 23.0 mmol/L Normal 21.0-32.0 [facility] Comment on above: Performed By: #### L 501.4021, L100.0100, L501.2450, L500.4050 ####[facility] [address] [place], [address] Creatinine [Mass/Vol] 0.86 mg/dL Normal 0.70-1.20 [facility] Comment on above: Performed By: #### L 501.4021, L100.0100, L501.2450, L500.4050 ####[facility] [address] [place], [address] ECRCL 56.98 ml/min Normal 50-250 [facility] Comment on above: Performed By: #### L 501.4021, L100.0100, L501.2450, L500.4050 ####[facility] [address] [place], [address] GAP 12 Normal 5-15 [facility] Comment on above: Performed By: #### L 501.4021, L100.0100, L501.2450, L500.4050 ####[facility] [address] [place], [address] GFR/1.73 sq M.predicted among non-blacks MDRD (S/P/Bld) [Vol rate/Area] 70 mL/min/{1.73_m2} Normal >60 [facility] Comment on above: Result Comment: mL/m in/1.73m2 CKD-EPI Creatinine Equation (2020) Performed By: #### L 501.4021, L100.0100, L501.2450, L500.4050 ####[facility] [address] [place], [address] Globulin (S) [Mass/Vol] 2.8 g/dL Normal 2.2-4.2 [facility] Comment on above: Performed By: #### L 501.4021, L100.0100, L501.2450, L500.4050 ####[facility] [address] [place], [address] Glucose [Mass/Vol] 95 mg/dL Normal 70-99 [facility] Comment on above: Performed By: #### L 501.4021, L100.0100, L501.2450, L500.4050 ####[facility] [address] [place], [address] Potassium [Moles/Vol] 3.9 mmol/L Normal 3.3-5.1 [facility] Comment on above: Result Comment: Hemo lysis present, Results??could be affected.?? Performed By: #### L 501.4021, L100.0100, L501.2450, L500.4050 ####[facility] [address] [place], [address] Sodium [Moles/Vol] 140 mmol/L Normal 133-145 [facility] Comment on above: Performed By: #### L 501.4021, L100.0100, L501.2450, L500.4050 ####[facility] [address] [place], [address] T PROT 6.6 g/dL Normal 5.9-8.4 [facility] Comment on above: Performed By: #### L 501.4021, L100.0100, L501.2450, L500.4050 ####[facility] [address] [place], [address] Urea nitrogen [Mass/Vol] 17 mg/dL Normal 4-19 [facility] Comment on above: Performed By: #### L 501.4021, L100.0100, L501.2450, L500.4050 ####[facility] [address] [place], [address] Emergency Department Summary on 11-05-2024 Emergency Department Summary Normal [facility] Eosinophil percentageOrdered By: Chato Yang on 11-05-2024 Eosinophils/100 WBC (Bld) 0.5 % 0-5 [facility] Epithelial cells.squamous LM Ql (Urine sed)Ordered By: Chato Yang on 11-05-2024 Epithelial cells.squamous LM.HPF (Urine sed) [#/Area] 0 /[HPF] 5-10 [facility] Erythrocyte distribution wid th (RBC) [Ratio]Ordered By: Chato Yang on 11-05-2024 Erythrocyte distribution width (RBC) [Entitic vol] 43.9 fL 35.1-43.9 [facility] Erythrocyte distribution wid th ratioOrdered By: Chato Yang on 11-05-2024 Erythrocyte distribution width (RBC) [Ratio] 13.3 % 11.6-14.6 [facility] Erythrocyte distribution wid th standard deviationOrdered By: Chato Yang on 11-05-2024 Erythrocyte distribution width (RBC) [Ratio] 43.9 fl 35.1-43.9 [facility] Estimation of creatinine germania aranceOrdered By: Chato Yang on 11-05-2024 Estimated Creatinine Clearance Calc 56.98 ml/min 50-250 [facility] GFR/1.73 sq M.predicted tammy g non-blacks MDRD (S/P/Bld) [Vol rate/Area]Ordered By: Chato Yang on 11-05-2024 Estimated GFR (MDRD) Non-Af Amer 70 >60 [facility] Comment on above: mL/min/1.73m2 CKD-EP I Creatinine Equation (2020) Glomerular filtration rate ( GFR) estimation/1.73 sq m using serum, plasma, or whole bOrdered By: Chato Yang on 11-05-2024 GFR/1.73 sq M.predicted among non-blacks MDRD (S/P/Bld) [Vol rate/Area] 70 mL/min/{1.73_m2} >60 [facility] Comment on above: mL/min/1.73m2 CKD-EP I Creatinine Equation (2020) Glucose Ql (U)Ordered By: Crow Yang on 11-05-2024 Urine Glucose (UA) Normal mg/dl Normal [facility] Hematocrit Auto (Bld) [Volum e fraction]Ordered By: Chato Yang on 11-05-2024 Hematocrit (Bld) [Volume fraction] 42.3 % 37-47 [facility] Hemoglobin measurementOrdere d By: Chato Yang on 11-05-2024 Hemoglobin (Bld) [Mass/Vol] 14.7 g/dL 12.0-15.0 [facility] Immature granulocytes/100 WB C Auto (Bld)Ordered By: Chato Yang on 11-05-2024 Immature granulocytes/100 WBC (Bld) 1.300 % High 0.0-0.9 [facility] Comment on above: IG% - Immature Granu locytes (promyelocytes, myelocytes and metamyelocytes) > 1% indicates that a LEFT SHIFT is Present. Ketones Test strip Ql (U)Ord ered By: Chato Yang on 11-05-2024 Ketones Ql (U) Negative Negative [facility] L501.4021on 11-05-2024 Trop T High Sen 14 ng/L Normal <=14 [facility] Comment on above: Performed By: #### L 501.4021, L100.0100, L501.2450, L500.4050 ####[facility] [address] [place], [place], [id number] Laboratory - Chemistry and C hemistry - challengeOrdered By: Chato Yang on 11-05-2024 AST [Catalytic activity/Vol] 26 U/L <32 [facility] Comment on above: Hemolysis present, R esults could be affected. Lipaseon 11-05-2024 Lipase [Catalytic activity/Vol] 22 U/L Normal 13-75 [facility] Comment on above: Result Comment: Gabriella elaine note:LIPASE revised reference range effective 22.New Lipase methodology. Expected to produce lower valuesthan the previous assay method.NEW Reference Range: 13 - 75 U/L Performed By: #### L 501.4021, L100.0100, L501.2450, L500.4050 ####[facility] [address] [place], [place], [id number] Lipase measurementOrdered By : Chato Yang on 11-05-2024 Lipase [Catalytic activity/Vol] 22 U/L 13-75 [facility] Comment on above: Please note:LIPASE r evised reference range effective 22. New Lipase methodology. Expected to produce lower values than the previous assay method. NEW Reference Range: 13 - 75 U/L Lymphocytes Auto (Unsp spec) [#/Vol]Ordered By: Chato Yang on 11-05-2024 Lymphocytes (Bld) [#/Vol] 2.45 10*3/uL 0.83-4.51 [facility] Lymphocytes/100 WBC Auto (Un sp spec)Ordered By: Chato Yang on 11-05-2024 Lymphocytes/100 WBC (Bld) 29.2 % 19-41 [facility] MCV (mean corpuscular volume ) determinationOrdered By: Chato Yang on 11-05-2024 MCV (RBC) [Entitic vol] 89.8 fL 81-99 [facility] Mean corpuscular hemoglobin (MCH) determinationOrdered By: Chato Yang on 11-05-2024 MCH (RBC) [Entitic mass] 31.2 pg 27.0-32.0 [facility] Mean corpuscular hemoglobin concentration (MCHC) determinationOrdered By: Chato Yang on 11-05-2024 MCHC (RBC) [Mass/Vol] 34.8 g/dL 32-36 [facility] Mean platelet volume determi nationOrdered By: Chato Yang on 11-05-2024 Platelet mean volume (Bld) [Entitic vol] 8.7 fL 6.2-12.0 [facility] Microscopic analysis of urin e for red blood cells (RBC)Ordered By: Chato Yang on 11-05-2024 Microscopic analysis of urine for red blood cells (RBC) 0 SEEN /hpf 0-5 [facility] Urine RBC 0 SEEN /hpf 0-5 [facility] Monocyte percentageOrdered B y: Chato Yang on 11-05-2024 Monocytes/100 WBC (Bld) 11.1 % High 0-10 [facility] Mucus LM Ql (Urine sed)Order ed By: Chato Yang on 11-05-2024 Mucus Ql (Urine sed) 2+ /hpf [facility] Neutrophil percentageOrdered By: Chato Yang on 11-05-2024 Neutrophils/100 WBC (Bld) 57.3 % 47-70 [facility] Nitrite Test strip Ql (U)Ord ered By: Chato Yang on 11-05-2024 Nitrite Ql (U) Positive High Negative [facility] Nucleated red blood cell per centageOrdered By: Chato Yang on 11-05-2024 Nucleated RBC/100 WBC (Bld) [Ratio] 0 % 0-5 [facility] Platelet countOrdered By: Crow Yang on 11-05-2024 Platelets (Bld) [#/Vol] 238 10*3/uL 150-450 [facility] Potassium (Unsp spec) [Mass/ Vol]Ordered By: Chato Yang on 11-05-2024 Potassium [Moles/Vol] 3.9 mmol/L 3.3-5.1 [facility] Comment on above: Hemolysis present, R esults could be affected. Potassium measurement (mass/ volume)Ordered By: Chato Yang on 11-05-2024 Potassium (Unsp spec) [Mass/Vol] 3.9 mmol/L 3.3-5.1 [facility] Comment on above: Hemolysis present, R esults could be affected. Protein Test strip Ql (U)Ord ered By: Chato Yang on 11-05-2024 Protein Ql (U) 30 mg/dl High Negative [facility] RBC Auto (Bld) [#/Vol]Ordere d By: Chato Yang on 11-05-2024 RBC (Bld) [#/Vol] 4.71 10*6/uL 4.2-5.4 [facility] Serum creatinine measurement (mass/volume)Ordered By: Chato Yang on 11-05-2024 Creatinine [Mass/Vol] 0.86 mg/dL 0.70-1.20 [facility] Serum globulin measurementOr dered By: Chato Yang on 11-05-2024 Globulin (S) [Mass/Vol] 2.8 g/dL 2.2-4.2 [facility] Serum glucose measurement (m ass/volume)Ordered By: Chato Yang on 11-05-2024 Glucose [Mass/Vol] 95 mg/dL 70-99 [facility] Serum or plasma alanine cooper otransferase (ALT) measurementOrdered By: Chato Yang on 11-05-2024 ALT [Catalytic activity/Vol] 11 U/L <35 [facility] Serum or plasma albumin raine urement (mass/volume)Ordered By: Chato Yang on 11-05-2024 Albumin [Mass/Vol] 3.8 g/dL 3.4-4.8 [facility] Serum or plasma albumin/glob ulin mass ratioOrdered By: Chato Yang on 11-05-2024 Albumin/Globulin [Mass ratio] 1.4 {ratio} 0.9-2.4 [facility] Serum or plasma alkaline haven sphatase measurementOrdered By: Chato Yang on 11-05-2024 ALP [Catalytic activity/Vol] 74 U/L 35-104 [facility] Serum or plasma calcium raine urement (mass/volume)Ordered By: Chato Yang on 11-05-2024 Calcium [Mass/Vol] 9.2 mg/dL 7.6-11.0 [facility] Serum or plasma urea nitroge n measurement (mass/volume)Ordered By: Chato Yang on 11-05-2024 Urea nitrogen [Mass/Vol] 17 mg/dL 4-19 [facility] Sodium levelOrdered By: Chato Yang on 11-05-2024 Sodium [Moles/Vol] 140 mmol/L 133-145 [facility] Squamous epithelial cells de tection in urine sediment by light microscopyOrdered By: Chato Yang 11-05-2024 Epithelial cells.squamous LM Ql (Urine sed) 0-5 SEEN /hpf 5-10 [facility] Total proteinOrdered By: Gela Yang on 11-05-2024 Protein [Mass/Vol] 6.6 g/dL 5.9-8.4 [facility] Troponin T.cardiac High sens itivity method [Mass/Vol]Ordered By: Chato Yang on 11-05-2024 Troponin T High Sensitivity 14 ng/L <14 [facility] Troponin T.cardiac [Mass/vol ume] in Serum or Plasma by High sensitivity methodOrdered By: Chato Yang 11-05-2024 Troponin T.cardiac High sensitivity method [Mass/Vol] 14 ng/L <14 [facility] Urinalysis, Completeon 11-05 BACTERIA 3+ /hpf Normal None Seen [facility] Comment on above: Order Comment: CLEAN CATCH Performed By: #### L 400.0001 ####[facility] [address] [place], [address] EPI,SQUAMOUS 0-5 SEEN Normal 5-10 [facility] Comment on above: Order Comment: CLEAN CATCH Performed By: #### L 400.0001 ####[facility] [address] [place], [address] Mucus Ql (Urine sed) 2+ /hpf Normal [facility] Comment on above: Order Comment: CLEAN CATCH Performed By: #### L 400.0001 ####[facility] [address] [place], [address] WBC 5-10 SEEN Normal 0-5 [facility] Comment on above: Order Comment: CLEAN CATCH Performed By: #### L 400.0001 ####[facility] [address] [place], [address] RBC 0 SEEN Normal 0-5 [facility] Comment on above: Order Comment: CLEAN CATCH Performed By: #### L 400.0001 ####[facility] [address] [place], [address] Urine blood detectionOrdered By: Chato Yang on 11-05-2024 Urine Occult Blood Negative Negative [facility] Urine clarityOrdered By: Gela Yang on 11-05-2024 Clarity (U) Sl. Cloudy Clear [facility] Urine color determinationOrd ered By: Chato Yang on 11-05-2024 Color (U) Yellow Yellow [facility] Urine cultureOrdered By: Edwige Gonzalez on 11-05-2024 Bacteria identified Cx Nom (U) Staphylococcus epidermidis Abnormal [facility] Urine glucose detectionOrder ed By: Chato Yang on 11-05-2024 Glucose Ql (U) Normal mg/dl Normal [facility] Urine leukocyte esterase det ection by dipstickOrdered By: Chato Yang on 11-05-2024 Leukocyte esterase Test strip Ql (U) 25 /ul High Negative [facility] Urine pHOrdered By: Chato cuenca on 11-05-2024 pH (U) 6.0 [pH] 5.0 - 8.0 [facility] Urine sediment bacteria coun t by microscopy (number/high power field)Ordered By: Chato Yang on 11-05-2024 Bacteria LM.HPF (Urine sed) [#/Area] 3 /[HPF] None Seen [facility] Urine specific gravity measu rementOrdered By: Chato Yang on 11-05-2024 Specific gravity (U) [Rel density] 1.015 1.002-1.030 [facility] Urine urobilinogen measureme ntOrdered By: Chato Yang on 11-05-2024 Urobilinogen Ql (U) Normal mg/dl Normal [facility] Urobilinogen Ql (U)Ordered B y: Chato Yang on 11-05-2024 Urine Urobilinogen Normal mg/dl Normal [facility] White blood cell (WBC) count Ordered By: Chato Yang on 11-05-2024 WBC (Bld) [#/Vol] 8.4 10*3/uL 4.4-11.0 [facility] White blood cell countOrdere d By: Chato Yang on 11-05-2024 Urine WBC 5-10 SEEN /hpf 0-5 [facility] White blood cell count 5-10 SEEN /hpf 0-5 [facility] CBC W/Diff, Automatedon 10-10 PATH REV Reviewed Normal [facility] Comment on above: Result Comment: SEE REPORT IN PATIENT'S EMR AMENDED REPORT 10/27/24 1146 PATH REV previously reported as: November Performed By: #### L 300.8000, L300.4310, L300.3900, L100.0100 ####[facility] [address] [place], [address] Absolute neutrophil countOrd ered By: Nelson Hobson on 09-25-2024 Neutrophils (Bld) [#/Vol] 9.9 10*3/uL High 2.0-7.7 [facility] Comment on above: Previous reported re sult: 10.1 X10^3/uLEdited by: POLLY on 09/25/24:1331 AMENDED REPORT 09/25/24 1331 Absolute Neut previously reported as: 10.1 H X10^3/uL Activated partial thrombopla stin time (aPTT) in platelet poor plasma by coagulation aOrdered By: Nelson Hobson on 09-25-2024 aPTT Coag (PPP) [Time] 25.2 s 24.1-36.2 [facility] Basophil percentageOrdered B y: Nelson Hobson on 09-25-2024 Basophils (%) (Auto) FIRE REGULATOR [facility] Comment on above: Previous reported re sult: 0.8 %Edited by: POLLY on 09/25/24:1330 AMENDED REPORT 09/25/24 1330 BASO% previously reported as: 0.8 % Blood lymphocytes/100 leukoc ytesOrdered By: Nelson Hobson on 09-25-2024 Lymphocytes/100 WBC (Bld) 28 % 19-41 [facility] Blood metamyelocytes/100 reji kocytesOrdered By: Nelson Hobson on 09-25-2024 Metamyelocytes/100 WBC (Bld) 2 % High 0-1 [facility] Blood monocytes/100 leukocyt esOrdered By: Nelson Hobson on 09-25-2024 Monocytes/100 WBC (Bld) 7 % 0-10 [facility] Blood polychromasia detectio n by light microscopyOrdered By: Nelson Hobson on 09-25-2024 Polychromasia LM Ql (Bld) 1+ [facility] Blood segmented neutrophils/ 100 leukocytesOrdered By: Nelson Hobson on 09-25-2024 Segmented neutrophils/100 WBC (Bld) 62 % 47-70 [facility] Cells counted Molgen (Bld/Ti ss) [#]Ordered By: Nelson Hobson on 09-25-2024 Differential Total Cells Counted 100 MANUAL DIFF [facility] D-Dimer Quantitative (DVT/PE )on 09-25-2024 D-DIMER QUANT 0.43 FEU/ug/m Normal 0.27-0.49 [facility] Comment on above: Result Comment: NORM AL D-Dimer level (<0.50) indicates no DVT or PE. Performed By: #### L 300.8000, L300.4310, L300.3900, L100.0100 ####[facility] [address] [place], [address] D-dimer measurement for deep venous thrombosisOrdered By: Nelson Hobson on 09-25-2024 D-Dimer Quantitative (PE/DVT) 0.43 FEU/ug/m 0.27-0.49 [facility] Comment on above: NORMAL D-Dimer level (<0.50) indicates no DVT or PE. Eosinophil percentageOrdered By: Nelson Hobson on 09-25-2024 Eosinophils (%) (Auto) FIRE REGULATOR [facility] Comment on above: Previous reported re sult: 0.3 %Edited by: POLLY on 09/25/24:1329 AMENDED REPORT 09/25/24 1329 EO% previously reported as: 0.3 % Erythrocyte distribution wid th (RBC) [Ratio]Ordered By: Nelson [facility] on 09-[facility]24 Erythrocyte distribution width (RBC) [Entitic vol] 45.3 fL High 35.1-43.9 [facility] Erythrocyte distribution wid th ratioOrdered By: [facility] on 09-25-2024 Erythrocyte distribution width (RBC) [Ratio] 14.0 % 11.6-14.6 [facility] Hematocrit Auto (Bld) [Volum e fraction]Ordered By: Nelson Hobson on 09-25-2024 Hematocrit (Bld) [Volume fraction] 47.3 % High 37-47 [facility] Hemoglobin measurementOrdere d By: Nelson Hobson on 09-25-2024 Hemoglobin (Bld) [Mass/Vol] 16.3 g/dL High 12.0-15.0 [facility] Immature granulocytes/100 WB C Auto (Bld)Ordered By: Nelson Hobson on 09-25-2024 Immature Granulocyte % (Auto) FIRE REGULATOR [facility] Comment on above: Previous reported re sult: 3.300 %Edited by: POLLY on 09/25/24:1330 AMENDED REPORT 09/25/24 1330 IM GRAN % previously reported as: 3.300 H % IG% - Immature Granulocytes (promyelocytes, myelocytes and metamyelocytes) > 1% indicates that a LEFT SHIFT is Present. International normalized rat io (INR) calculationOrdered By: Nelson Hobson on 09-25-2024 INR Coag (Bld) [Relative time] 1.2 {INR} [facility] Lymphocytes Auto (Unsp spec) [#/Vol]Ordered By: Nelson Hobson on 09-25-2024 Lymphocytes (Bld) [#/Vol] 4.45 10*3/uL 0.83-4.51 [facility] Comment on above: Previous reported re sult: 3.41 X10^3/uLEdited by: POLLY on 09/25/24:1331 AMENDED REPORT 09/25/24 1331 Absolute Lymph previously reported as: 3.41 X10^3/uL Lymphocytes/100 WBC Auto (Un sp spec)Ordered By: Nelson Hobson on 09-25-2024 Lymphocytes (%) (Auto) FIRE REGULATOR [facility] Comment on above: Previous reported re sult: 21.5 %Edited by: POLLY on 09/25/24:1329 AMENDED REPORT 09/25/24 1329 LY% previously reported as: 21.5 % MCV (mean corpuscular volume ) determinationOrdered By: Nelson Hobson on 09-25-2024 MCV (RBC) [Entitic vol] 89.1 fL 81-99 [facility] Mean corpuscular hemoglobin (MCH) determinationOrdered By: Nelson Hobson on 09-25-2024 MCH (RBC) [Entitic mass] 30.7 pg 27.0-32.0 [facility] Mean corpuscular hemoglobin concentration (MCHC) determinationOrdered By: Nelson Hobson on 09-25-2024 MCHC (RBC) [Mass/Vol] 34.5 g/dL 32-36 [facility] Mean platelet volume determi nationOrdered By: Nelson Hobson on 09-25-2024 Platelet mean volume (Bld) [Entitic vol] 9.3 fL 6.2-12.0 [facility] Monocyte percentageOrdered B y: Nelson Hobson on 09-25-2024 Monocytes (%) (Auto) FIRE REGULATOR [facility] Comment on above: Previous reported re sult: 10.6 %Edited by: POLLY on 09/25/24:1329 AMENDED REPORT 09/25/24 1329 MONO% previously reported as: 10.6 H % Myelocyte %Ordered By: Bharat Hobson on 09-25-2024 Myelocytes/100 WBC (Bld) 1 % High 0-0 [facility] Neutrophil percentageOrdered By: Nelson Hobson on 09-25-2024 Neutrophils (%) (Auto) FIRE REGULATOR [facility] Comment on above: Previous reported re sult: 63.5 %Edited by: POLYL on 09/25/24:1329 AMENDED REPORT 09/25/24 1329 NEUT% previously reported as: 63.5 % Nucleated red blood cell per centageOrdered By: Nelson Hobson on 09-25-2024 Nucleated RBC/100 WBC (Bld) [Ratio] 0 % 0-5 [facility] Oncology Visit Reporton 09-09 Oncology Visit Report Normal [facility] Partial Thromboplast Timeon 09-25-2024 aPTT Coag (Bld) [Time] 25.2 s Normal 24.1-36.2 [facility] Comment on above: Performed By: #### L 300.8000, L300.4310, L300.3900, L100.0100 ####[facility] [address] [place], [address] Pathologist review Froilan (Unsp spec) [Interp]Ordered By: Nelson Hobson on 09-25-2024 Differential Pathologist's Review Reviewed [facility] Comment on above: Previous reported re sult: November shana Edited by: ANDERS on 10/27/24:1146SEE REPORT IN PATIENT'S EMR AMENDED REPORT 10/27/24 1146 PATH REV previously reported as: Cici saldana Platelet countOrdered By: Niya Hobson on 09-25-2024 Platelets (Bld) [#/Vol] 373 10*3/uL 150-450 [facility] Platelet estimateOrdered By: Nelson Hobson on 09-25-2024 Platelets LM Ql (Bld) A ADEQ [facility] Platelets LM Ql (Bld)Ordered By: Nelson Hobson on 09-25-2024 Platelet Estimate A [facility] Polychromasia LM Ql (Bld)Ord ered By: Nelson Hobson on 09-25-2024 Polychromasia 1+ [facility] Prothrombin Time w/INRon INR Coag (PPP) [Relative time] 1.2 {INR} Normal [facility] Comment on above: Performed By: #### L 300.8000, L300.4310, L300.3900, L100.0100 ####[facility] [address] [place], [address] PT Coag (PPP) [Time] 15.6 s High 11.7-14.[address] [facility] Comment on above: Performed By: #### L 300.8000, L300.4310, L300.3900, L100.0100 ####[facility] [address] [place], [address] Prothrombin timeOrdered By: Nelson Hobson on 09-25-2024 PT Coag (PPP) [Time] 15.6 s High 11.7-14.[address] [facility] RBC Auto (Bld) [#/Vol]Ordere d By: Nelson Hobson on 09-25-2024 RBC (Bld) [#/Vol] 5.31 10*6/uL 4.2-5.4 [facility] Reactive lymphocyte countOrd ered By: Nelson Hobson on 09-25-2024 Reactive Lymphocytes 3+ [facility] Review by pathologistOrdered By: Nelson Hobson on 09-25-2024 Pathologist review Froilan (Unsp spec) [Interp] Reviewed [facility] Comment on above: Previous reported re sult: Cici saldana Edited by: ANDERS on 10/27/24:1146SEE REPORT IN PATIENT'S EMR AMENDED REPORT 10/27/24 1146 PATH REV previously reported as: Cici saldana Segmented neutrophils/100 WB C (Bld)Ordered By: Nelson Hobson on 09-25-2024 Neutrophils/100 WBC (Bld) 62 % 47-70 [facility] Total cell countOrdered By: Nelson Hobson on 09-25-2024 Cells counted Molgen (Bld/Tiss) [#] 100 MANUAL DIFF [facility] White blood cell (WBC) count Ordered By: Nelson Hobson on 09-25-2024 WBC (Bld) [#/Vol] 15.9 10*3/uL High 4.4-11.0 [facility] aPTT Coag (PPP) [Time]Ordere d By: Nelson Hobson on 09-25-2024 aPTT Coag (Bld) [Time] 25.2 s 24.1-36.2 [facility] Brain/Head without Contrasto n 09-16-2024 Brain/Head without Contrast Normal [facility] Emergency Department Summary on 09-16-2024 Emergency Department Summary Normal [facility] Absolute lymphocyte countOrd ered By: Ed Bowman on 09-12-2024 Lymphocytes Auto (Unsp spec) [#/Vol] 2.69 10*3/uL 0.83-4.51 [facility] Absolute neutrophil countOrd ered By: Ed Bowman on 09-12-2024 Neutrophils (Bld) [#/Vol] 6.8 10*3/uL 2.0-7.7 [facility] Anion gap in Serum or Plasma Ordered By: Ed Bowman on 09-12-2024 Anion gap [Moles/Vol] 15 mmol/L 5-15 [facility] Automated lymphocyte count a s percentage of total leukocytesOrdered By: Ed Bowman on 09-12-2024 Lymphocytes/100 WBC Auto (Unsp spec) 25.0 % 19-41 [facility] BUN/creatinine ratioOrdered By: Ed Bowman on 09-12-2024 Urea nitrogen/Creatinine [Mass ratio] 22.0 mg/mg High 10-20 [facility] Basophil percentageOrdered B y: Ed Bowman on 09-12-2024 Basophils/100 WBC (Bld) 0.8 % 0-1 [facility] Bilirubin, totalOrdered By: Ed Bowman on 09-12-2024 Bilirubin [Mass/Vol] 0.40 mg/dL 0.00-1.[address] [facility] CBC W/Diff, Automatedon 03-0 4-2024 Absolute Lymph 2.69 X10 3/uL Normal 0.83-4.51 [facility] Comment on above: Performed By: #### L 506.1001, L500.4050, L501.9985, L500.4100, L501.9520, L100.0100 ####[facility] [address] [place], [address] Absolute Neut 6.8 X10 3/uL Normal 2.0-7.7 [facility] Comment on above: Performed By: #### L 506.1001, L500.4050, L501.9985, L500.4100, L501.9520, L100.0100 ####[facility] [address] [place], [address] Basophils/100 WBC (Bld) 0.8 % Normal 0-1 [facility] Comment on above: Performed By: #### L 506.1001, L500.4050, L501.9985, L500.4100, L501.9520, L100.0100 ####[facility] [address] [place], [address] Eosinophils/100 WBC (Bld) 0.6 % Normal 0-5 [facility] Comment on above: Performed By: #### L 506.1001, L500.4050, L501.9985, L500.4100, L501.9520, L100.0100 ####[facility] [address] [place], [address] Erythrocyte distribution width (RBC) [Ratio] 14.6 % Normal 11.6-14.6 [facility] Comment on above: Performed By: #### L 506.1001, L500.4050, L501.9985, L500.4100, L501.9520, L100.0100 ####[facility] [address] [place], [address] Hematocrit (Bld) [Volume fraction] 43.0 % Normal 37-47 [facility] Comment on above: Performed By: #### L 506.1001, L500.4050, L501.9985, L500.4100, L501.9520, L100.0100 ####[facility] [address] [place], [address] Hemoglobin (Bld) [Mass/Vol] 14.9 g/dL Normal 12.0-15.0 [facility] Comment on above: Performed By: #### L 506.1001, L500.4050, L501.9985, L500.4100, L501.9520, L100.0100 ####[facility] [address] [place], [address] IG% 1.500 High 0.0-0.9 [facility] Comment on above: Result Comment: IG% - Immature Granulocytes (promyelocytes, myelocytes andmetamyelocytes) > 1% indicates that a LEFT SHIFT is Present. Performed By: #### L 506.1001, L500.4050, L501.9985, L500.4100, L501.9520, L100.0100 ####[facility] [address] [place], [address] Lymphocytes/100 WBC (Bld) 25.0 % Normal 19-41 [facility] Comment on above: Performed By: #### L 506.1001, L500.4050, L501.9985, L500.4100, L501.9520, L100.0100 ####[facility] [address] [place], [address] MCH (RBC) [Entitic mass] 30.8 pg Normal 27.0-32.0 [facility] Comment on above: Performed By: #### L 506.1001, L500.4050, L501.9985, L500.4100, L501.9520, L100.0100 ####[facility] [address] [place], [address] MCHC (RBC) [Mass/Vol] 34.7 g/dL Normal 32-36 [facility] Comment on above: Performed By: #### L 506.1001, L500.4050, L501.9985, L500.4100, L501.9520, L100.0100 ####[facility] [address] [place], [address] MCV (RBC) [Entitic vol] 88.8 fL Normal 81-99 [facility] Comment on above: Performed By: #### L 506.1001, L500.4050, L501.9985, L500.4100, L501.9520, L100.0100 ####[facility] [address] [place], [address] Monocytes/100 WBC (Bld) 8.4 % Normal 0-10 [facility] Comment on above: Performed By: #### L 506.1001, L500.4050, L501.9985, L500.4100, L501.9520, L100.0100 ####[facility] [address] [place], [address] Neutrophils/100 WBC (Bld) 63.7 % Normal 47-70 [facility] Comment on above: Performed By: #### L 506.1001, L500.4050, L501.9985, L500.4100, L501.9520, L100.0100 ####[facility] [address] [place], [address] Nucleated RBC (Bld) [#/Vol] 0 10*3/uL Normal 0-5 [facility] Comment on above: Performed By: #### L 506.1001, L500.4050, L501.9985, L500.4100, L501.9520, L100.0100 ####[facility] [address] [place], [address] Platelet mean volume (Bld) [Entitic vol] 9.5 fL Normal 6.2-12.0 [facility] Comment on above: Performed By: #### L 506.1001, L500.4050, L501.9985, L500.4100, L501.9520, L100.0100 ####[facility] [address] [place], [address] Platelets (Bld) [#/Vol] 291 10*3/uL Normal 150-450 [facility] Comment on above: Performed By: #### L 506.1001, L500.4050, L501.9985, L500.4100, L501.9520, L100.0100 ####[facility] [address] [place], [address] RBC (Bld) [#/Vol] 4.84 10*6/uL Normal 4.2-5.4 [facility] Comment on above: Performed By: #### L 506.1001, L500.4050, L501.9985, L500.4100, L501.9520, L100.0100 ####[facility] [address] [place], [address] RDW SD 47.6 fl High 35.1-43.9 [facility] Comment on above: Performed By: #### L 506.1001, L500.4050, L501.9985, L500.4100, L501.9520, L100.0100 ####[facility] [address] [place], [address] WBC (Bld) [#/Vol] 10.7 10*3/uL Normal 4.4-11.0 [facility] Comment on above: Performed By: #### L 506.1001, L500.4050, L501.9985, L500.4100, L501.9520, L100.0100 ####[facility] [address] [place], [address] Calculated very low density lipoprotein (VLDL) cholesterol measurementOrdered By: Ed Bowman on 09-12-2024 Calculated very low density lipoprotein (VLDL) cholesterol measurement 42 mg/dL High 5-40 [facility] VLDL Cholesterol 42 mg/dL High 5-40 [facility] Carbon dioxide, total [Moles /volume] in Central venous bloodOrdered By: Ed Bowman on 09-12-2024 CO2 [Moles/Vol] 21.2 mmol/L 21.0-32.0 [facility] Chloride assayOrdered By: Mihir Bowman on 09-12-2024 Chloride [Moles/Vol] 107 mmol/L 98-[address] [facility] Comprehensive Metabolic Prof ilon 09-12-2024 Albumin [Mass/Vol] 3.8 g/dL Normal 3.4-4.8 [facility] Comment on above: Performed By: #### L 506.1001, L500.4050, L501.9985, L500.4100, L501.9520, L100.0100 ####[facility] [address] [place], [address] Albumin/Globulin [Mass ratio] 1.4 {ratio} Normal 0.9-2.4 [facility] Comment on above: Performed By: #### L 506.1001, L500.4050, L501.9985, L500.4100, L501.9520, L100.0100 ####[facility] [address] [place], [address] ALK PHOS 85 U/L Normal 35-104 [facility] Comment on above: Performed By: #### L 506.1001, L500.4050, L501.9985, L500.4100, L501.9520, L100.0100 ####[facility] [address] [place], [address] ALT [Catalytic activity/Vol] 16 U/L Normal <=34 [facility] Comment on above: Performed By: #### L 506.1001, L500.4050, L501.9985, L500.4100, L501.9520, L100.0100 ####[facility] [address] [place], [address] AST [Catalytic activity/Vol] 22 U/L Normal <=31 [facility] Comment on above: Performed By: #### L 506.1001, L500.4050, L501.9985, L500.4100, L501.9520, L100.0100 ####[facility] [address] [place], [address] Bilirubin [Mass/Vol] 0.40 mg/dL Normal 0.00-1.[address] [facility] Comment on above: Performed By: #### L 506.1001, L500.4050, L501.9985, L500.4100, L501.9520, L100.0100 ####[facility] [address] [place], [address] BUN/CRE 22.0 RATIO High 10-20 [facility] Comment on above: Performed By: #### L 506.1001, L500.4050, L501.9985, L500.4100, L501.9520, L100.0100 ####[facility] [address] [place], [address] Calcium [Mass/Vol] 9.3 mg/dL Normal 7.6-11.0 [facility] Comment on above: Performed By: #### L 506.1001, L500.4050, L501.9985, L500.4100, L501.9520, L100.0100 ####[facility] [address] [place], [address] Chloride [Moles/Vol] 107 mmol/L Normal 98-[address] [facility] Comment on above: Performed By: #### L 506.1001, L500.4050, L501.9985, L500.4100, L501.9520, L100.0100 ####[facility] [address] [place], [address] CO2 [Moles/Vol] 21.2 mmol/L Normal 21.0-32.0 [facility] Comment on above: Performed By: #### L 506.1001, L500.4050, L501.9985, L500.4100, L501.9520, L100.0100 ####[facility] [address] [place], [address] Creatinine [Mass/Vol] 0.76 mg/dL Normal 0.70-1.20 [facility] Comment on above: Performed By: #### L 506.1001, L500.4050, L501.9985, L500.4100, L501.9520, L100.0100 ####[facility] [address] [place], [address] GAP 15 Normal 5-15 [facility] Comment on above: Performed By: #### L 506.1001, L500.4050, L501.9985, L500.4100, L501.9520, L100.0100 ####[facility] [address] [place], [address] GFR/1.73 sq M.predicted among non-blacks MDRD (S/P/Bld) [Vol rate/Area] 82 mL/min/{1.73_m2} Normal >60 [facility] Comment on above: Result Comment: mL/m in/1.73m2 CKD-EPI Creatinine Equation (2020) Performed By: #### L 506.1001, L500.4050, L501.9985, L500.4100, L501.9520, L100.0100 ####[facility] [address] [place], [address] Globulin (S) [Mass/Vol] 2.8 g/dL Normal 2.2-4.2 [facility] Comment on above: Performed By: #### L 506.1001, L500.4050, L501.9985, L500.4100, L501.9520, L100.0100 ####[facility] [address] [place], [address] Glucose [Mass/Vol] 145 mg/dL High 70-99 [facility] Comment on above: Performed By: #### L 506.1001, L500.4050, L501.9985, L500.4100, L501.9520, L100.0100 ####[facility] [address] [place], [address] Potassium [Moles/Vol] 3.2 mmol/L Low 3.3-5.1 [facility] Comment on above: Performed By: #### L 506.1001, L500.4050, L501.9985, L500.4100, L501.9520, L100.0100 ####[facility] [address] [place], [address] Sodium [Moles/Vol] 143 mmol/L Normal 133-145 [facility] Comment on above: Performed By: #### L 506.1001, L500.4050, L501.9985, L500.4100, L501.9520, L100.0100 ####[facility] [address] [place], [address] T PROT 6.6 g/dL Normal 5.9-8.4 [facility] Comment on above: Performed By: #### L 506.1001, L500.4050, L501.9985, L500.4100, L501.9520, L100.0100 ####[facility] [address] [place], [address] Urea nitrogen [Mass/Vol] 17 mg/dL Normal 4-19 [facility] Comment on above: Performed By: #### L 506.1001, L500.4050, L501.9985, L500.4100, L501.9520, L100.0100 ####[facility] [address] [place], [address] Eosinophil percentageOrdered By: Ed Bowman on 09-12-2024 Eosinophils/100 WBC (Bld) 0.6 % 0-5 [facility] Erythrocyte distribution wid th ratioOrdered By: Ed Bowman on 09-12-2024 Erythrocyte distribution width (RBC) [Ratio] 14.6 % 11.6-14.6 [facility] Erythrocyte distribution wid th standard deviationOrdered By: Ed Bowman on 09-12-2024 Erythrocyte distribution width (RBC) [Entitic vol] 47.6 fL High 35.1-43.9 [facility] Erythrocyte distribution width (RBC) [Ratio] 47.6 fl High 35.1-43.9 [facility] GFR/1.73 sq M.predicted tammy g non-blacks MDRD (S/P/Bld) [Vol rate/Area]Ordered By: Ed Bowman 09-12-2024 Estimated GFR (MDRD) Non-Af Amer 82 >60 [facility] Comment on above: mL/min/1.73m2 CKD-EP I Creatinine Equation (2020) Glomerular filtration rate ( GFR) estimation/1.73 sq m using serum, plasma, or whole bOrdered By: Ed Bowman 09-12-2024 GFR/1.73 sq M.predicted among non-blacks MDRD (S/P/Bld) [Vol rate/Area] 82 mL/min/{1.73_m2} >60 [facility] Comment on above: mL/min/1.73m2 CKD-EP I Creatinine Equation (2020) Hematocrit Auto (Bld) [Volum e fraction]Ordered By: Ed Bowman 09-12-2024 Hematocrit (Bld) [Volume fraction] 43.0 % 37-47 [facility] Hemoglobin A1con 09-12-2024 HbA1c (Bld) [Mass fraction] 5.5 % Low <=5.6 [facility] Comment on above: Order Comment: [id number] Performed By: #### L 506.1001, L500.4050, L501.9985, L500.4100, L501.9520, L100.0100 ####[facility] [address] [place], [place], [address] Hemoglobin A1c percentageOrd ered By: Ed Bowman on 09-12-2024 HbA1c (Bld) [Mass fraction] 5.5 % Low >5.7 [facility] Hemoglobin measurementOrdere d By: Ed Bowman on 09-12-2024 Hemoglobin (Bld) [Mass/Vol] 14.9 g/dL 12.0-15.0 [facility] Immature granulocytes/100 WB C Auto (Bld)Ordered By: Ed Bowman on 09-12-2024 Immature granulocytes/100 WBC (Bld) 1.500 % High 0.0-0.9 [facility] Comment on above: IG% - Immature Granu locytes (promyelocytes, myelocytes and metamyelocytes) > 1% indicates that a LEFT SHIFT is Present. L506.1001on 09-12-2024 Vitamin D 25-OH 35.5 ng/mL Normal 30-100 [facility] Comment on above: Result Comment: Luda min D StatusDeficiency: <20 ng/mL (50nmol/L)Insufficiency: 20-30 ng/mL (50-75 nmol/L)Sufficiency: 30-100 ng/mL (75-250 nmol/L)Toxicity: >100 ng/mL (>250 nmol/L) Performed By: #### L 506.1001, L500.4050, L501.9985, L500.4100, L501.9520, L100.0100 ####[facility] [address] [place], [address] LDL calc ser/plasOrdered By: Ed Bowman on 09-12-2024 Cholesterol in LDL [Mass/Vol] 136 mg/dL [facility] Comment on above: Lzzwmycqax=587-649 m g/dL & Higher Jisn=934 mg/dL or greater LDL Cholesterol, Calculated 136 mg/dL [facility] Comment on above: Qtwmxwgttg=295-519 m g/dL & Higher Amtx=928 mg/dL or greater Laboratory - Chemistry and C hemistry - challengeOrdered By: Ed Bowman on 09-12-2024 AST [Catalytic activity/Vol] 22 U/L <32 [facility] Lipid Profileon 09-12-2024 CHOL:HDL 4.53 Normal [facility] Comment on above: Performed By: #### L 506.1001, L500.4050, L501.9985, L500.4100, L501.9520, L100.0100 ####[facility] [address] [place], [address] Cholesterol [Mass/Vol] 229 mg/dL High <=200 [facility] Comment on above: Result Comment: Chol esterol level, Desirable <200 mg/dLBorderline high cholesterol 200-239 mg/dLHigh cholesterol >=240 mg/dLRecommendations of the NCEP Adult Treatment Panel for thefollowing risk-cutoff thresholds for the [place] Americanpulation. Performed By: #### L 506.1001, L500.4050, L501.9985, L500.4100, L501.9520, L100.0100 ####[facility] [address] [place], [address] Cholesterol in HDL [Mass/Vol] 51 mg/dL Normal [facility] Comment on above: Result Comment: Michelle onal Cholesterol Education Program (NCEP) guidelines:<40 mg/dL: Low HDL-cholesterol (major risk factor for CHD)>= 60 mg/dL: High HDL-cholesterol (negative risk factor forCHD)HDL-cholesterol is affected by a number of factors, e.g.smoking, exercise, hormones, sex and age. Performed By: #### L 506.1001, L500.4050, L501.9985, L500.4100, L501.9520, L100.0100 ####[facility] [address] [place], [address] Cholesterol in LDL [Mass/Vol] 136 mg/dL Normal [facility] Comment on above: Result Comment: Bord ugudaa=681-537 mg/dL Higher Lwlu=354 mg/dL or greater Performed By: #### L 506.1001, L500.4050, L501.9985, L500.4100, L501.9520, L100.0100 ####[facility] [address] [place], [address] Cholesterol in VLDL [Mass/Vol] 42 mg/dL High 5-40 [facility] Comment on above: Performed By: #### L 506.1001, L500.4050, L501.9985, L500.4100, L501.9520, L100.0100 ####[facility] [address] [place], [address] Triglyceride [Mass/Vol] 210 mg/dL High [facility] Comment on above: Result Comment: The drugs N-Acetylcysteine and Metamizole may falselydepress this assay.Normal range: <150 mg/dLBorderline High: 150-199 mg/dLHigh: 200-499 mg/dLVery High: >500 mg/dL Performed By: #### L 506.1001, L500.4050, L501.9985, L500.4100, L501.9520, L100.0100 ####[facility] [address] [place], [address] Lymphocytes Auto (Unsp spec) [#/Vol]Ordered By: Ed Bowman on 09-12-2024 Lymphocytes (Bld) [#/Vol] 2.69 10*3/uL 0.83-4.51 [facility] Lymphocytes/100 WBC Auto (Un sp spec)Ordered By: Ed Bowman on 09-12-2024 Lymphocytes/100 WBC (Bld) 25.0 % 19-41 [facility] MCV (mean corpuscular volume ) determinationOrdered By: Ed Bowman on 09-12-2024 MCV (RBC) [Entitic vol] 88.8 fL 81-99 [facility] Mean corpuscular hemoglobin (MCH) determinationOrdered By: Ed Bowman on 09-12-2024 MCH (RBC) [Entitic mass] 30.8 pg 27.0-32.0 [facility] Mean corpuscular hemoglobin concentration (MCHC) determinationOrdered By: Ed Bowman on 09-12-2024 MCHC (RBC) [Mass/Vol] 34.7 g/dL 32-36 [facility] Mean platelet volume determi nationOrdered By: Ed Bowman on 09-12-2024 Platelet mean volume (Bld) [Entitic vol] 9.5 fL 6.2-12.0 [facility] Monocyte percentageOrdered B y: Ed Bowman on 09-12-2024 Monocytes/100 WBC (Bld) 8.4 % 0-10 [facility] Neutrophil percentageOrdered By: Ed Bowman on 09-12-2024 Neutrophils/100 WBC (Bld) 63.7 % 47-70 [facility] Nucleated red blood cell per centageOrdered By: Ed Bowman on 09-12-2024 Nucleated RBC/100 WBC (Bld) [Ratio] 0 % 0-5 [facility] Platelet countOrdered By: Mihir Bowman on 09-12-2024 Platelets (Bld) [#/Vol] 291 10*3/uL 150-450 [facility] Potassium (Unsp spec) [Mass/ Vol]Ordered By: Ed Bowman on 09-12-2024 Potassium [Moles/Vol] 3.2 mmol/L Low 3.3-5.1 [facility] Potassium measurement (mass/ volume)Ordered By: Ed Bowman on 09-12-2024 Potassium (Unsp spec) [Mass/Vol] 3.2 mmol/L Low 3.3-5.1 [facility] RBC Auto (Bld) [#/Vol]Ordere d By: Ed Bowman on 09-12-2024 RBC (Bld) [#/Vol] 4.84 10*6/uL 4.2-5.4 [facility] Screening total cholesterol/ high density lipoprotein (HDL) cholesterol ratioOrdered By: Ed Bowman on 09-12-2024 Cholesterol.total/Mikayla sterol in HDL [Mass ratio] 4.53 {ratio} [facility] Serum creatinine measurement (mass/volume)Ordered By: Ed Bowman on 09-12-2024 Creatinine [Mass/Vol] 0.76 mg/dL 0.70-1.20 [facility] Serum globulin measurementOr dered By: Ed Bowman on 09-12-2024 Globulin (S) [Mass/Vol] 2.8 g/dL 2.2-4.2 [facility] Serum glucose measurement (m ass/volume)Ordered By: Ed Bowman on 09-12-2024 Glucose [Mass/Vol] 145 mg/dL High 70-99 [facility] Serum or plasma alanine cooper otransferase (ALT) measurementOrdered By: Ed Bowman 09-12-2024 ALT [Catalytic activity/Vol] 16 U/L <35 [facility] Serum or plasma albumin raine urement (mass/volume)Ordered By: Ed Bowman on 09-12-2024 Albumin [Mass/Vol] 3.8 g/dL 3.4-4.8 [facility] Serum or plasma albumin/glob ulin mass ratioOrdered By: Ed Bowman 09-12-2024 Albumin/Globulin [Mass ratio] 1.4 {ratio} 0.9-2.4 [facility] Serum or plasma alkaline haven sphatase measurementOrdered By: Ed Bowman 09-12-2024 ALP [Catalytic activity/Vol] 85 U/L 35-104 [facility] Serum or plasma calcium raine urement (mass/volume)Ordered By: Ed Bowman 09-12-2024 Calcium [Mass/Vol] 9.3 mg/dL 7.6-11.0 [facility] Serum or plasma cholesterol in HDL measurement (mass/volume)Ordered By: Ed Bowman 09-12-2024 Cholesterol in HDL [Mass/Vol] 51 mg/dL >40 [facility] Comment on above: National Cholesterol Education Program (NCEP) guidelines:<40 mg/dL: Low HDL-cholesterol (major risk factor for CHD)>= 60 mg/dL: High HDL-cholesterol (negative risk factor for CHD)HDL-cholesterol is affected by a number of factors, e.g. smoking, exercise, hormones, sex and age. Serum or plasma cholesterol measurement (mass/volume)Ordered By: Ed Bowman on 09-12-2024 Cholesterol [Mass/Vol] 229 mg/dL High <201 [facility] Comment on above: Cholesterol level, D esirable <200 mg/dLBorderline high cholesterol 200-239 mg/dLHigh cholesterol >=240 mg/dLRecommendations of the NCEP Adult Treatment Panel for the following risk-cutoff thresholds for the [place] Citizen [place] population. Serum or plasma urea nitroge n measurement (mass/volume)Ordered By: Ed Bowman on 09-12-2024 Urea nitrogen [Mass/Vol] 17 mg/dL 4-19 [facility] Sodium levelOrdered By: Ed Bowman on 09-12-2024 Sodium [Moles/Vol] 143 mmol/L 133-145 [facility] TSH DL <= 0.005 mIU/L QnOrde red By: Ed Bowman on 09-12-2024 Thyroid Stimulating Hormone (TSH) 1.710 uIU/mL 0.300-4.200 [facility] TSH Qn 1.710 uIU/mL 0.300-4.200 [facility] Thyroid Stim Hormone (TSH)on 09-12-2024 TSH 1.710 uIU/mL Normal 0.300-4.200 [facility] Comment on above: Performed By: #### L 506.1001, L500.4050, L501.9985, L500.4100, L501.9520, L100.0100 ####[facility] [address] [place], [address] Total proteinOrdered By: Ed Bowman on 09-12-2024 Protein [Mass/Vol] 6.6 g/dL 5.9-8.4 [facility] Triglycerides measurementOrd ered By: Ed Bowman on 09-12-2024 Triglyceride [Mass/Vol] 210 mg/dL High <199 [facility] Comment on above: The drugs N-Acetylcy steine and Metamizole may falsely depress this assay. Normal range: <150 mg/dLBorderline High: 150-199 mg/dLHigh: 200-499 mg/dLVery High: >500 mg/dL Vitamin D, 25-hydroxyOrdered By: Ed Bowman on 09-12-2024 Vitamin D 25-Hydroxy 35.5 ng/mL 30-[address] [facility] Comment on above: Vitamin D StatusDefi ciency: <20 ng/mL (50nmol/L)Insufficiency: 20-30 ng/mL (50-75 nmol/L)Sufficiency: 30-100 ng/mL (75-250 nmol/L)Toxicity: >100 ng/mL (>250 nmol/L) White blood cell (WBC) count Ordered By: Ed Bowman on 09-12-2024 WBC (Bld) [#/Vol] 10.7 10*3/uL 4.4-11.0 [facility] MR/BMS.BVSon 07-18-2024 MR/BMS.BVS Normal [facility] Venous Duplex US, Unilateral on 06-30-2024 Venous Duplex US, Unilateral Normal [facility] 47-PM-Ipumtlk DOrdered By: Fredo Bowman on 06-13-2024 Vitamin D 25-Hydroxy 45.7 ng/mL [facility] Comment on above: Vitamin D 25(OH) Sta tus Range Deficiency <20 ng/mL (50nmol/L) Insufficiency 20 - 30 ng/mL (50 - 75 nmol/L) Sufficiency 30 - 100 ng/mL (75 - 250 nmol/L) Toxicity >100 ng/mL (>250 nmol/L) Absolute neutrophil countOrd ered By: Ed Bowman on 06-13-2024 Neutrophils (Bld) [#/Vol] 4.8 10*3/uL 2.0-7.7 [facility] Albumin to globulin ratioOrd ered By: Ed Bowman on 06-13-2024 Albumin/Globulin [Mass ratio] 1.0 {ratio} 0.9-2.4 [facility] Basophil percentageOrdered B y: Ed Bowman on 06-13-2024 Basophils/100 WBC (Bld) 0.7 % 0-1 [facility] Bilirubin, totalOrdered By: Ed Bowman on 06-13-2024 Bilirubin [Mass/Vol] 0.50 mg/dL 0.20-1.[address] [facility] Comment on above: For patients on eltr ombopag therapy, use of Dimension [place] TBIL is not recommended. Blood urea nitrogen (BUN)/cr eatinine ratioOrdered By: Ed Bowman on 06-13-2024 Urea nitrogen/Creatinine [Mass ratio] 16.7 mg/mg 10-20 [facility] CBC W/Diff, Automatedon 12-0 Absolute Lymph 2.32 X10 3/uL Normal 0.83-4.51 [facility] Comment on above: Performed By: #### L 100.0100, L500.4050, L501.9520, L500.4100, L506.1000 ####[facility] [address] [place], [address] Absolute Neut 4.8 X10 3/uL Normal 2.0-7.7 [facility] Comment on above: Performed By: #### L 100.0100, L500.4050, L501.9520, L500.4100, L506.1000 ####[facility] [address] [place], [address] Basophils/100 WBC (Bld) 0.7 % Normal 0-1 [facility] Comment on above: Performed By: #### L 100.0100, L500.4050, L501.9520, L500.4100, L506.1000 ####[facility] [address] [place], [address] Eosinophils/100 WBC (Bld) 1.6 % Normal 0-5 [facility] Comment on above: Performed By: #### L 100.0100, L500.4050, L501.9520, L500.4100, L506.1000 ####[facility] [address] [place], [address] Erythrocyte distribution width (RBC) [Ratio] 13.5 % Normal 11.6-14.6 [facility] Comment on above: Performed By: #### L 100.0100, L500.4050, L501.9520, L500.4100, L506.1000 ####[facility] [address] [place], [address] Hematocrit (Bld) [Volume fraction] 43.3 % Normal 37-47 [facility] Comment on above: Performed By: #### L 100.0100, L500.4050, L501.9520, L500.4100, L506.1000 ####[facility] [address] [place], [address] Hemoglobin (Bld) [Mass/Vol] 13.9 g/dL Normal 12.0-15.0 [facility] Comment on above: Performed By: #### L 100.0100, L500.4050, L501.9520, L500.4100, L506.1000 ####[facility] [address] [place], [address] IG% 0.900 Normal 0.0-0.9 [facility] Comment on above: Result Comment: IG% - Immature Granulocytes (promyelocytes, myelocytes andmetamyelocytes) > 1% indicates that a LEFT SHIFT is Present. Performed By: #### L 100.0100, L500.4050, L501.9520, L500.4100, L506.1000 ####[facility] [address] [place], [address] Lymphocytes/100 WBC (Bld) 28.5 % Normal 19-41 [facility] Comment on above: Performed By: #### L 100.0100, L500.4050, L501.9520, L500.4100, L506.1000 ####[facility] [address] [place], [address] MCH (RBC) [Entitic mass] 29.0 pg Normal 27.0-32.0 [facility] Comment on above: Performed By: #### L 100.0100, L500.4050, L501.9520, L500.4100, L506.1000 ####[facility] [address] [place], [address] MCHC (RBC) [Mass/Vol] 32.1 g/dL Normal 32-36 [facility] Comment on above: Performed By: #### L 100.0100, L500.4050, L501.9520, L500.4100, L506.1000 ####[facility] [address] [place], [address] MCV (RBC) [Entitic vol] 90.4 fL Normal 81-99 [facility] Comment on above: Performed By: #### L 100.0100, L500.4050, L501.9520, L500.4100, L506.1000 ####[facility] [address] [place], [address] Monocytes/100 WBC (Bld) 9.4 % Normal 0-10 [facility] Comment on above: Performed By: #### L 100.0100, L500.4050, L501.9520, L500.4100, L506.1000 ####[facility] [address] [place], [address] Neutrophils/100 WBC (Bld) 58.9 % Normal 47-70 [facility] Comment on above: Performed By: #### L 100.0100, L500.4050, L501.9520, L500.4100, L506.1000 ####[facility] [address] [place], [address] Nucleated RBC (Bld) [#/Vol] 0 10*3/uL Normal 0-5 [facility] Comment on above: Performed By: #### L 100.0100, L500.4050, L501.9520, L500.4100, L506.1000 ####[facility] [address] [place], [address] Platelet mean volume (Bld) [Entitic vol] 10.1 fL Normal 6.2-12.0 [facility] Comment on above: Performed By: #### L 100.0100, L500.4050, L501.9520, L500.4100, L506.1000 ####[facility] [address] [place], [address] Platelets (Bld) [#/Vol] 320 10*3/uL Normal 150-450 [facility] Comment on above: Performed By: #### L 100.0100, L500.4050, L501.9520, L500.4100, L506.1000 ####[facility] [address] [place], [address] RBC (Bld) [#/Vol] 4.79 10*6/uL Normal 4.2-5.4 [facility] Comment on above: Performed By: #### L 100.0100, L500.4050, L501.9520, L500.4100, L506.1000 ####[facility] [address] [place], [address] RDW SD 44.5 fl High 35.1-43.9 [facility] Comment on above: Performed By: #### L 100.0100, L500.4050, L501.9520, L500.4100, L506.1000 ####[facility] [address] [place], [address] WBC (Bld) [#/Vol] 8.2 10*3/uL Normal 4.4-11.0 [facility] Comment on above: Performed By: #### L 100.0100, L500.4050, L501.9520, L500.4100, L506.1000 ####[facility] [address] [place], [address] Calprotectin, Stoolon [address] 11 ug/g Normal 0-120 [facility] Comment on above: Result Comment: Conc entration Interpretation Follow-Up< 5 - 50 ug/g Normal None>50 -120 ug/g Borderline Re-evaluate in 4-6 weeks >120 ug/g Abnormal Repeat as clinically indicatedPerformed at: [facility] [id number] [place], [place] [id number] Director: Jose Gaines MD, Phone: [phone] Performed By: #### L 7000.0700, M100.0605 ####[facility] [address] [place], [address] Carbon dioxide measurementOr dered By: Ed Bowman on 06-13-2024 CO2 [Moles/Vol] 27.0 mmol/L 21.0-32.0 [facility] Chloride measurementOrdered By: Ed Bowman on 06-13-2024 Chloride [Moles/Vol] 111 mmol/L High 98-[address] [facility] Comprehensive Metabolic Prof ilon 06-13-2024 Albumin [Mass/Vol] 3.4 g/dL Normal 3.2-5.0 [facility] Comment on above: Performed By: #### L 100.0100, L500.4050, L501.9520, L500.4100, L506.1000 ####[facility] [address] [place], [address] Albumin/Globulin [Mass ratio] 1.0 {ratio} Normal 0.9-2.4 [facility] Comment on above: Performed By: #### L 100.0100, L500.4050, L501.9520, L500.4100, L506.1000 ####[facility] [address] [place], [address] ALK P 85 U/L Normal 45-117 [facility] Comment on above: Performed By: #### L 100.0100, L500.4050, L501.9520, L500.4100, L506.1000 ####[facility] [address] [place], [address] ALT [Catalytic activity/Vol] 18 U/L Normal 13-56 [facility] Comment on above: Performed By: #### L 100.0100, L500.4050, L501.9520, L500.4100, L506.1000 ####[facility] [address] [place], [address] AST [Catalytic activity/Vol] 20 U/L Normal 15-37 [facility] Comment on above: Performed By: #### L 100.0100, L500.4050, L501.9520, L500.4100, L506.1000 ####[facility] [address] [place], [address] Bilirubin [Mass/Vol] 0.50 mg/dL Normal 0.20-1.[address] [facility] Comment on above: Result Comment: For patients on eltrombopag therapy, use of Dimension Conway TBIL is not recommended. Performed By: #### L 100.0100, L500.4050, L501.9520, L500.4100, L506.1000 ####[facility] [address] [place], [address] BUN/CRE 16.7 RATIO Normal 10-20 [facility] Comment on above: Performed By: #### L 100.0100, L500.4050, L501.9520, L500.4100, L506.1000 ####[facility] [address] [place], [address] CA,Total 9.4 mg/dL Normal 8.5-10.1 [facility] Comment on above: Performed By: #### L 100.0100, L500.4050, L501.9520, L500.4100, L506.1000 ####[facility] [address] [place], [address] Chloride [Moles/Vol] 111 mmol/L High 98-[address] [facility] Comment on above: Performed By: #### L 100.0100, L500.4050, L501.9520, L500.4100, L506.1000 ####[facility] [address] [place], [address] CO2 [Moles/Vol] 27.0 mmol/L Normal 21.0-32.0 [facility] Comment on above: Performed By: #### L 100.0100, L500.4050, L501.9520, L500.4100, L506.1000 ####[facility] [address] [place], [address] Creatinine [Mass/Vol] 0.78 mg/dL Normal 0.55-1.02 [facility] Comment on above: Result Comment: The validity of the calculated GFR GFRAA in patients over70 years has not been determined. Clinical correlation isessential. Performed By: #### L 100.0100, L500.4050, L501.9520, L500.4100, L506.1000 ####[facility] [address] [place], [address] EST GFR - AA 92 mL/min Normal >60 [facility] Comment on above: Result Comment: Afri can Citizen Of [place] GFR Calc Performed By: #### L 100.0100, L500.4050, L501.9520, L500.4100, L506.1000 ####[facility] [address] [place], [address] GAP 5 Normal 5-15 [facility] Comment on above: Performed By: #### L 100.0100, L500.4050, L501.9520, L500.4100, L506.1000 ####[facility] [address] [place], [address] GFR/1.73 sq M.predicted among non-blacks MDRD (S/P/Bld) [Vol rate/Area] 76 mL/min/{1.73_m2} Normal >60 [facility] Comment on above: Result Comment: Non- GFR Calc Performed By: #### L 100.0100, L500.4050, L501.9520, L500.4100, L506.1000 ####[facility] [address] [place], [address] Globulin (S) [Mass/Vol] 3.4 g/dL Normal 2.2-4.2 [facility] Comment on above: Performed By: #### L 100.0100, L500.4050, L501.9520, L500.4100, L506.1000 ####[facility] [address] [place], [address] Glucose [Mass/Vol] 109 mg/dL High 74-106 [facility] Comment on above: Result Comment: Fast ing Glucose result from 100 to 125 mg/dLsuggests IMPAIRED HOMEOSTASIS per A.D.A. criteria. Performed By: #### L 100.0100, L500.4050, L501.9520, L500.4100, L506.1000 ####[facility] [address] [place], [address] Potassium [Moles/Vol] 3.5 mmol/L Normal 3.5-5.1 [facility] Comment on above: Performed By: #### L 100.0100, L500.4050, L501.9520, L500.4100, L506.1000 ####[facility] [address] [place], [address] Sodium [Moles/Vol] 142 mmol/L Normal 136-145 [facility] Comment on above: Performed By: #### L 100.0100, L500.4050, L501.9520, L500.4100, L506.1000 ####[facility] [address] [place], [address] T PROT 6.8 g/dL Normal 6.4-8.2 [facility] Comment on above: Performed By: #### L 100.0100, L500.4050, L501.9520, L500.4100, L506.1000 ####[facility] [address] [place], [address] Urea nitrogen [Mass/Vol] 13 mg/dL Normal 7-18 [facility] Comment on above: Performed By: #### L 100.0100, L500.4050, L501.9520, L500.4100, L506.1000 ####[facility] [address] [place], [address] Eosinophil percentageOrdered By: Ed Bowman on 06-13-2024 Eosinophils/100 WBC (Bld) 1.6 % 0-5 [facility] Erythrocyte distribution wid th ratioOrdered By: Ed Bowman on 06-13-2024 Erythrocyte distribution width (RBC) [Ratio] 13.5 % 11.6-14.6 [facility] Erythrocyte distribution wid th standard deviationOrdered By: Ed Bowman on 06-13-2024 Erythrocyte distribution width (RBC) [Entitic vol] 44.5 fL High 35.1-43.9 [facility] Estimated glomerular filtrat ion rate (GFR) AmericanOrdered By: Ed Bowman on 06-13-2024 Estimated GFR (MDRD) Amer 92 mL/min >60 [facility] Comment on above: GFR Calc Glomerular filtration rate ( GFR) estimationOrdered By: Ed Bowman on 06-13-2024 Estimated GFR (MDRD) Non-Af Amer 76 mL/min >60 [facility] Comment on above: Non- GFR Calc Glucose measurementOrdered B y: Ed Bowman on 06-13-2024 Glucose [Mass/Vol] 109 mg/dL High 74-106 [facility] Comment on above: Fasting Glucose resu lt from 100 to 125 mg/dL suggests IMPAIRED HOMEOSTASIS per A.D.A. criteria. Hematocrit Auto (Bld) [Volum e fraction]Ordered By: Ed Bowman on 06-13-2024 Hematocrit (Bld) [Volume fraction] 43.3 % 37-47 [facility] Hemoglobin measurementOrdere d By: Ed Bowman on 06-13-2024 Hemoglobin (Bld) [Mass/Vol] 13.9 g/dL 12.0-15.0 [facility] High density lipoprotein (HD L) measurementOrdered By: Ed Bowman on 06-13-2024 Cholesterol in HDL [Mass/Vol] 38 mg/dL Low >40 [facility] Comment on above: The drugs N-Acetylcy steine and Metamizole may falsely depress this assay. Reference Range HDL <40 mg/dL Low HDL Cholesterol HDL >or= 60 mg/dL High HDL Cholesterol Immature granulocytes/100 WB C Auto (Bld)Ordered By: Ed Bowmna on 06-13-2024 Immature granulocytes/100 WBC (Bld) 0.900 % 0.0-0.9 [facility] Comment on above: IG% - Immature Granu locytes (promyelocytes, myelocytes and metamyelocytes) > 1% indicates that a LEFT SHIFT is Present. Knee 3 Viewson 06-13-2024 Knee 3 Views Normal [facility] Laboratory - Chemistry and C hemistry - challengeOrdered By: Ed Bowman on 06-13-2024 AST [Catalytic activity/Vol] 20 U/L 15-37 [facility] Lipid Profileon 06-13-2024 Cholesterol [Mass/Vol] 215 mg/dL High 200 [facility] Comment on above: Result Comment: <200 mg/dL Desirable 200-240 mg/dL Borderline >240 mg/dL High Risk Performed By: #### L 100.0100, L500.4050, L501.9520, L500.4100, L506.1000 ####[facility] [address] [place], [address] Cholesterol in HDL [Mass/Vol] 38 mg/dL Low [facility] Comment on above: Result Comment: The drugs N-Acetylcysteine and Metamizole may falselydepress this assay. Reference Range HDL <40 mg/dL Low HDL Cholesterol HDL >or= 60 mg/dL High HDL Cholesterol Performed By: #### L 100.0100, L500.4050, L501.9520, L500.4100, L506.1000 ####[facility] [address] [place], [address] Cholesterol in LDL [Mass/Vol] 141 mg/dL High 0-130 [facility] Comment on above: Performed By: #### L 100.0100, L500.4050, L501.9520, L500.4100, L506.1000 ####[facility] [address] [place], [address] Cholesterol in VLDL [Mass/Vol] 36 mg/dL Normal 5-40 [facility] Comment on above: Performed By: #### L 100.0100, L500.4050, L501.9520, L500.4100, L506.1000 ####[facility] [address] [place], [address] Triglyceride [Mass/Vol] 179 mg/dL Normal [facility] Comment on above: Result Comment: The drugs N-Acetylcysteine and Metamizole may falselydepress this assay.Serum Triglycerides Reference Interval Normal <150 mg/dL Borderline high 150 - 199 mg/dL High 200 - 499 mg/dL Very High > or = 500 mg/dL Performed By: #### L 100.0100, L500.4050, L501.9520, L500.4100, L506.1000 ####[facility] [address] [place], [address] Low density lipoprotein (LDL ) cholesterol measurementOrdered By: Ed Bowman on 06-13-2024 Cholesterol in LDL [Mass/Vol] 141 mg/dL High 0-130 [facility] Lymphocytes Auto (Unsp spec) [#/Vol]Ordered By: Ed Bowman on 06-13-2024 Lymphocytes (Bld) [#/Vol] 2.32 10*3/uL 0.83-4.51 [facility] Lymphocytes/100 WBC Auto (Un sp spec)Ordered By: Ed Bowman on 06-13-2024 Lymphocytes/100 WBC (Bld) 28.5 % 19-41 [facility] MCV (mean corpuscular volume ) determinationOrdered By: Ed [place] on 06-13-2024 MCV (RBC) [Entitic vol] 90.4 fL 81-99 [facility] Mean corpuscular hemoglobin (MCH) determinationOrdered By: Ed [place] on 06-13-2024 MCH (RBC) [Entitic mass] 29.0 pg 27.0-32.0 [facility] Mean corpuscular hemoglobin concentration (MCHC) determinationOrdered By: Ed [place] on 06-13-2024 MCHC (RBC) [Mass/Vol] 32.1 g/dL 32-36 [facility] Mean platelet volume determi nationOrdered By: Ed [place] on 06-13-2024 Platelet mean volume (Bld) [Entitic vol] 10.1 fL 6.2-12.0 [facility] Monocyte percentageOrdered B y: Ed [place] on 06-13-2024 Monocytes/100 WBC (Bld) 9.4 % 0-10 [facility] Neutrophil percentageOrdered By: Ed [place] on 06-13-2024 Neutrophils/100 WBC (Bld) 58.9 % 47-70 [facility] Nucleated red blood cell per centageOrdered By: Ed [place] on 06-13-2024 Nucleated RBC/100 WBC (Bld) [Ratio] 0 % 0-5 [facility] Ova and Parasites 8623on OP Normal [facility] Comment on above: Performed By: #### M 600.5000 ####[facility] [address] [place], [address] Platelet countOrdered By: Mihir Bowman on 06-13-2024 Platelets (Bld) [#/Vol] 320 10*3/uL 150-450 [facility] Potassium measurementOrdered By: Ed Bowman on 06-13-2024 Potassium [Moles/Vol] 3.5 mmol/L 3.5-5.1 [facility] RBC Auto (Bld) [#/Vol]Ordere d By: Ed Bowman on 06-13-2024 RBC (Bld) [#/Vol] 4.79 10*6/uL 4.2-5.4 [facility] Serum anion gap measurementO rdered By: Ed Bowman on 06-13-2024 Anion gap [Moles/Vol] 5 mmol/L 5-15 [facility] Serum globulin measurementOr dered By: Ed Bowman on 06-13-2024 Globulin (S) [Mass/Vol] 3.4 g/dL 2.2-4.2 [facility] Serum or plasma alanine cooper otransferase (ALT) measurementOrdered By: Ed Bowman on 06-13-2024 ALT [Catalytic activity/Vol] 18 U/L 13-56 [facility] Serum or plasma albumin raine urement (mass/volume)Ordered By: Ed Bowman on 06-13-2024 Albumin [Mass/Vol] 3.4 g/dL 3.2-5.0 [facility] Serum or plasma alkaline haven sphatase measurementOrdered By: Ed Bowman on 06-13-2024 ALP [Catalytic activity/Vol] 85 U/L 45-117 [facility] Serum or plasma calcium raine urement (mass/volume)Ordered By: Ed Bowman 06-13-2024 Calcium [Mass/Vol] 9.4 mg/dL 8.5-10.1 [facility] Serum or plasma cholesterol measurement (mass/volume)Ordered By: Ed Bowman 06-13-2024 Cholesterol [Mass/Vol] 215 mg/dL High <200 [facility] Comment on above: <200 mg/dL Desirable 200-240 mg/dL Borderline >240 mg/dL High Risk Serum or plasma creatinine m easurement (mass/volume)Ordered By: Ed Bowman on 06-13-2024 Creatinine [Mass/Vol] 0.78 mg/dL 0.55-1.02 [facility] Comment on above: The validity of the calculated GFR & GFRAA in patients over 70 years has not been determined. Clinical correlation is essential. Serum or plasma urea nitroge n measurement (mass/volume)Ordered By: Ed Bowman on 06-13-2024 Urea nitrogen [Mass/Vol] 13 mg/dL 7-18 [facility] Sodium levelOrdered By: Ed Bowman 06-13-2024 Sodium [Moles/Vol] 142 mmol/L 136-145 [facility] TSH QnOrdered By: Ed Bowman o n 06-13-2024 Thyroid Stimulating Hormone (TSH) 0.810 uIU/mL 0.358-3.740 [facility] Thyroid Stim Hormone (TSH)on 06-13-2024 TSH 0.810 uIU/mL Normal 0.358-3.740 [facility] Comment on above: Performed By: #### L 100.0100, L500.4050, L501.9520, L500.4100, L506.1000 ####[facility] [address] [place], [address] Total proteinOrdered By: Ed Bowman on 06-13-2024 Protein [Mass/Vol] 6.8 g/dL 6.4-8.2 [facility] Triglycerides measurementOrd ered By: Ed Bowman on 06-13-2024 Triglyceride [Mass/Vol] 179 mg/dL <199 [facility] Comment on above: The drugs N-Acetylcy steine and Metamizole may falsely depress this assay.Serum Triglycerides Reference Interval Normal <150 mg/dL Borderline high 150 - 199 mg/dL High 200 - 499 mg/dL Very High > or = 500 mg/dL Very low density lipoprotein (VLDL) cholesterol measurementOrdered By: Ed Bowman on 06-13-2024 VLDL Cholesterol 36 mg/dL 5-40 [facility] Vitamin D,25 Hydroxyon 06-13 Vitamin D 25-OH 45.7 ng/mL Normal [facility] Comment on above: Result Comment: Luda min D 25(OH) Status Range Deficiency <20 ng/mL (50nmol/L) Insufficiency 20 - 30 ng/mL (50 - 75 nmol/L) Sufficiency 30 - 100 ng/mL (75 - 250 nmol/L) Toxicity >100 ng/mL (>250 nmol/L) Performed By: #### L 100.0100, L500.4050, L501.9520, L500.4100, L506.1000 ####[facility] [address] [place], [address] White blood cell (WBC) count Ordered By: Ed Bowman on 06-13-2024 WBC (Bld) [#/Vol] 8.2 10*3/uL 4.4-11.0 [facility] Calprotectin stoolOrdered By : Nelson Hobson on 06-08-2024 Stool Calprotectin 11 ug/g 0-120 [facility] Comment on above: Concentration Interp retation Follow-Up< 5 - 50 ug/g Normal None>50 -120 ug/g Borderline Re-evaluate in 4-6 weeks >120 ug/g Abnormal Repeat as clinically indicatedPerformed at: - [facility] [id number] Director: Jose Gaines MD, Phone: [phone] Lactoferrin IA Ql (Stl)Order ed By: Nelson Hobson on 06-08-2024 Stool Lactoferrin [facility] Stool Lactoferrin [facility] Ova and parasitesOrdered By: Nelson Hobson on 06-08-2024 Ova and Parasites [facility] Ova and Parasites [facility] Stool Lactoferrin/WBCon 05-13 WBCST Normal Reference Ran ge = Negative Fecal WBC Lactoferrin Negative: No Fecal WBC Lactoferrin present Normal [facility] Comment on above: Performed By: #### L 7000.0700, M100.0605 ####[facility] [address] [place], [address] Absolute neutrophil countOrd ered By: Nelson Hobson on 06-05-2024 Neutrophils (Bld) [#/Vol] 8.3 10*3/uL High 2.0-7.7 [facility] Albumin to globulin ratioOrd ered By: Nelson Hobson on 06-05-2024 Albumin/Globulin [Mass ratio] 0.9 {ratio} 0.9-2.4 [facility] Basophil percentageOrdered B y: Nelson Hobson on 06-05-2024 Basophils/100 WBC (Bld) 0.6 % 0-1 [facility] Bilirubin, totalOrdered By: Nelson Hobson on 06-05-2024 Bilirubin [Mass/Vol] 0.80 mg/dL 0.20-1.[address] [facility] Comment on above: For patients on eltr ombopag therapy, use of Dimension [place] TBIL is not recommended. Blood urea nitrogen (BUN)/cr eatinine ratioOrdered By: Nelson Hobson on 06-05-2024 Urea nitrogen/Creatinine [Mass ratio] 22.2 mg/mg High - [facility] CBC W/Diff, Automatedon 05-13 Absolute Lymph 2.73 X10 3/uL Normal 0.83-4.51 [facility] Comment on above: Performed By: #### L 300.4310, L504.2610, L100.0100, L300.3900, L300.8000, L500.4050 ####[facility] [address] [place], [address] Absolute Neut 8.3 X10 3/uL High 2.0-7.7 [facility] Comment on above: Performed By: #### L 300.4310, L504.2610, L100.0100, L300.3900, L300.8000, L500.4050 ####[facility] [address] [place], [address] Basophils/100 WBC (Bld) 0.6 % Normal 0-1 [facility] Comment on above: Performed By: #### L 300.4310, L504.2610, L100.0100, L300.3900, L300.8000, L500.4050 ####[facility] [address] [place], [address] Eosinophils/100 WBC (Bld) 0.9 % Normal 0-5 [facility] Comment on above: Performed By: #### L 300.4310, L504.2610, L100.0100, L300.3900, L300.8000, L500.4050 ####[facility] [address] [place], [address] Erythrocyte distribution width (RBC) [Ratio] 13.2 % Normal 11.6-14.6 [facility] Comment on above: Performed By: #### L 300.4310, L504.2610, L100.0100, L300.3900, L300.8000, L500.4050 ####[facility] [address] [place], [address] Hematocrit (Bld) [Volume fraction] 43.0 % Normal 37-47 [facility] Comment on above: Performed By: #### L 300.4310, L504.2610, L100.0100, L300.3900, L300.8000, L500.4050 ####[facility] [address] [place], [address] Hemoglobin (Bld) [Mass/Vol] 14.6 g/dL Normal 12.0-15.0 [facility] Comment on above: Performed By: #### L 300.4310, L504.2610, L100.0100, L300.3900, L300.8000, L500.4050 ####[facility] [address] [place], [address] IG% 0.600 Normal 0.0-0.9 [facility] Comment on above: Result Comment: IG% - Immature Granulocytes (promyelocytes, myelocytes andmetamyelocytes) > 1% indicates that a LEFT SHIFT is Present. Performed By: #### L 300.4310, L504.2610, L100.0100, L300.3900, L300.8000, L500.4050 ####[facility] [address] [place], [address] Lymphocytes/100 WBC (Bld) 21.8 % Normal 19-41 [facility] Comment on above: Performed By: #### L 300.4310, L504.2610, L100.0100, L300.3900, L300.8000, L500.4050 ####[facility] [address] [place], [address] MCH (RBC) [Entitic mass] 29.6 pg Normal 27.0-32.0 [facility] Comment on above: Performed By: #### L 300.4310, L504.2610, L100.0100, L300.3900, L300.8000, L500.4050 ####[facility] [address] [place], [address] MCHC (RBC) [Mass/Vol] 34.0 g/dL Normal 32-36 [facility] Comment on above: Performed By: #### L 300.4310, L504.2610, L100.0100, L300.3900, L300.8000, L500.4050 ####[facility] [address] [place], [address] MCV (RBC) [Entitic vol] 87.2 fL Normal 81-99 [facility] Comment on above: Performed By: #### L 300.4310, L504.2610, L100.0100, L300.3900, L300.8000, L500.4050 ####[facility] [address] [place], [address] Monocytes/100 WBC (Bld) 9.4 % Normal 0-10 [facility] Comment on above: Performed By: #### L 300.4310, L504.2610, L100.0100, L300.3900, L300.8000, L500.4050 ####[facility] [address] [place], [address] Neutrophils/100 WBC (Bld) 66.7 % Normal 47-70 [facility] Comment on above: Performed By: #### L 300.4310, L504.2610, L100.0100, L300.3900, L300.8000, L500.4050 ####[facility] [address] [place], [address] Nucleated RBC (Bld) [#/Vol] 0 10*3/uL Normal 0-5 [facility] Comment on above: Performed By: #### L 300.4310, L504.2610, L100.0100, L300.3900, L300.8000, L500.4050 ####[facility] [address] [place], [address] Platelet mean volume (Bld) [Entitic vol] 9.3 fL Normal 6.2-12.0 [facility] Comment on above: Performed By: #### L 300.4310, L504.2610, L100.0100, L300.3900, L300.8000, L500.4050 ####[facility] [address] [place], [address] Platelets (Bld) [#/Vol] 303 10*3/uL Normal 150-450 [facility] Comment on above: Performed By: #### L 300.4310, L504.2610, L100.0100, L300.3900, L300.8000, L500.4050 ####[facility] [address] [place], [address] RBC (Bld) [#/Vol] 4.93 10*6/uL Normal 4.2-5.4 [facility] Comment on above: Performed By: #### L 300.4310, L504.2610, L100.0100, L300.3900, L300.8000, L500.4050 ####[facility] [address] [place], [address] RDW SD 42.1 fl Normal 35.1-43.9 [facility] Comment on above: Performed By: #### L 300.4310, L504.2610, L100.0100, L300.3900, L300.8000, L500.4050 ####[facility] [address] [place], [address] WBC (Bld) [#/Vol] 12.5 10*3/uL High 4.4-11.0 [facility] Comment on above: Performed By: #### L 300.4310, L504.2610, L100.0100, L300.3900, L300.8000, L500.4050 ####[facility] [address] [place], [address] Carbon dioxide measurementOr dered By: Nelson Hobson on 06-05-2024 CO2 [Moles/Vol] 24.0 mmol/L 21.0-32.0 [facility] Chloride measurementOrdered By: Nelson Hobson on 06-05-2024 Chloride [Moles/Vol] 108 mmol/L High 98-[address] [facility] Comprehensive Metabolic Prof ilon 06-05-2024 Albumin [Mass/Vol] 3.4 g/dL Normal 3.2-5.0 [facility] Comment on above: Order Comment: 1 Performed By: #### L 300.4310, L504.2610, L100.0100, L300.3900, L300.8000, L500.4050 ####[facility] [address] [place], [address] Albumin/Globulin [Mass ratio] 0.9 {ratio} Normal 0.9-2.4 [facility] Comment on above: Order Comment: 1 Performed By: #### L 300.4310, L504.2610, L100.0100, L300.3900, L300.8000, L500.4050 ####[facility] [address] [place], [address] ALK P 80 U/L Normal 45-117 [facility] Comment on above: Order Comment: 1 Performed By: #### L 300.4310, L504.2610, L100.0100, L300.3900, L300.8000, L500.4050 ####[facility] [address] [place], [address] ALT [Catalytic activity/Vol] 19 U/L Normal 13-56 [facility] Comment on above: Order Comment: 1 Performed By: #### L 300.4310, L504.2610, L100.0100, L300.3900, L300.8000, L500.4050 ####[facility] [address] [place], [address] AST [Catalytic activity/Vol] 20 U/L Normal 15-37 [facility] Comment on above: Order Comment: 1 Performed By: #### L 300.4310, L504.2610, L100.0100, L300.3900, L300.8000, L500.4050 ####[facility] [address] [place], [address] Bilirubin [Mass/Vol] 0.80 mg/dL Normal 0.20-1.[address] [facility] Comment on above: Order Comment: 1 Result Comment: For patients on eltrombopag therapy, use of Dimension [place] TBIL is not recommended. Performed By: #### L 300.4310, L504.2610, L100.0100, L300.3900, L300.8000, L500.4050 ####[facility] [address] [place], [address] BUN/CRE 22.2 RATIO High 10-20 [facility] Comment on above: Order Comment: 1 Performed By: #### L 300.4310, L504.2610, L100.0100, L300.3900, L300.8000, L500.4050 ####[facility] [address] [place], [address] CA,Total 9.4 mg/dL Normal 8.5-10.1 [facility] Comment on above: Order Comment: 1 Performed By: #### L 300.4310, L504.2610, L100.0100, L300.3900, L300.8000, L500.4050 ####[facility] [address] [place], [address] Chloride [Moles/Vol] 108 mmol/L High 98-[address] [facility] Comment on above: Order Comment: 1 Performed By: #### L 300.4310, L504.2610, L100.0100, L300.3900, L300.8000, L500.4050 ####[facility] [address] [place], [address] CO2 [Moles/Vol] 24.0 mmol/L Normal 21.0-32.0 [facility] Comment on above: Order Comment: 1 Performed By: #### L 300.4310, L504.2610, L100.0100, L300.3900, L300.8000, L500.4050 ####[facility] [address] [place], [address] Creatinine [Mass/Vol] 0.86 mg/dL Normal 0.55-1.02 [facility] Comment on above: Order Comment: 1 Result Comment: The validity of the calculated GFR GFRAA in patients over70 years has not been determined. Clinical correlation isessential. Performed By: #### L 300.4310, L504.2610, L100.0100, L300.3900, L300.8000, L500.4050 ####[facility] [address] [place], [address] EST GFR - AA 83 mL/min Normal >60 [facility] Comment on above: Order Comment: 1 Result Comment: Afri can Citizen [place] GFR Calc Performed By: #### L 300.4310, L504.2610, L100.0100, L300.3900, L300.8000, L500.4050 ####[facility] [address] [place], [address] GAP 9 Normal 5-15 [facility] Comment on above: Order Comment: 1 Performed By: #### L 300.4310, L504.2610, L100.0100, L300.3900, L300.8000, L500.4050 ####[facility] [address] [place], [address] GFR/1.73 sq M.predicted among non-blacks MDRD (S/P/Bld) [Vol rate/Area] 69 mL/min/{1.73_m2} Normal >60 [facility] Comment on above: Order Comment: 1 Result Comment: Non- GFR Calc Performed By: #### L 300.4310, L504.2610, L100.0100, L300.3900, L300.8000, L500.4050 ####[facility] [address] [place], [address] Globulin (S) [Mass/Vol] 3.8 g/dL Normal 2.2-4.2 [facility] Comment on above: Order Comment: 1 Performed By: #### L 300.4310, L504.2610, L100.0100, L300.3900, L300.8000, L500.4050 ####[facility] [address] [place], [address] Glucose [Mass/Vol] 115 mg/dL High 74-106 [facility] Comment on above: Order Comment: 1 Result Comment: Fast ing Glucose result from 100 to 125 mg/dLsuggests IMPAIRED HOMEOSTASIS per A.D.A. criteria. Performed By: #### L 300.4310, L504.2610, L100.0100, L300.3900, L300.8000, L500.4050 ####[facility] [address] [place], [address] Potassium [Moles/Vol] 2.8 mmol/L Low 3.5-5.1 [facility] Comment on above: Order Comment: 1 Performed By: #### L 300.4310, L504.2610, L100.0100, L300.3900, L300.8000, L500.4050 ####[facility] [address] [place], [address] Sodium [Moles/Vol] 141 mmol/L Normal 136-145 [facility] Comment on above: Order Comment: 1 Performed By: #### L 300.4310, L504.2610, L100.0100, L300.3900, L300.8000, L500.4050 ####[facility] [address] [place], [address] T PROT 7.2 g/dL Normal 6.4-8.2 [facility] Comment on above: Order Comment: 1 Performed By: #### L 300.4310, L504.2610, L100.0100, L300.3900, L300.8000, L500.4050 ####[facility] [address] [place], [address] Urea nitrogen [Mass/Vol] 19 mg/dL High 7-18 [facility] Comment on above: Order Comment: 1 Performed By: #### L 300.4310, L504.2610, L100.0100, L300.3900, L300.8000, L500.4050 ####[facility] [address] [place], [address] D-Dimer Quantitative (DVT/PE )on 06-05-2024 D-DIMER QUANT 0.35 FEU/ug/m Normal 0.27-0.49 [facility] Comment on above: Result Comment: NORM AL D-Dimer level (<0.50) indicates no DVT or PE. Performed By: #### L 300.4310, L504.2610, L100.0100, L300.3900, L300.8000, L500.4050 ####[facility] [address] [place], [address] D-dimer measurement for deep venous thrombosisOrdered By: Nelson Hobson on 06-05-2024 D-Dimer Quantitative (PE/DVT) 0.35 FEU/ug/m 0.27-0.49 [facility] Comment on above: NORMAL D-Dimer level (<0.50) indicates no DVT or PE. Eosinophil percentageOrdered By: Nelson Hobson on 06-05-2024 Eosinophils/100 WBC (Bld) 0.9 % 0-5 [facility] Erythrocyte distribution wid th ratioOrdered By: Nelson [facility] on 06-05-2024 Erythrocyte distribution width (RBC) [Ratio] 13.2 % 11.6-14.6 [facility] Erythrocyte distribution wid th standard deviationOrdered By: Nelson [facility] on 06-05-2024 Erythrocyte distribution width (RBC) [Entitic vol] 42.1 fL 35.1-43.9 [facility] Estimated glomerular filtrat ion rate (GFR) AmericanOrdered By: Nelson Hobson on 06-05-2024 Estimated GFR (MDRD) Amer 83 mL/min >60 [facility] Comment on above: GFR Calc Glomerular filtration rate ( GFR) estimationOrdered By: Nelson Hobson on 06-05-2024 Estimated GFR (MDRD) Non-Af Amer 69 mL/min >60 [facility] Comment on above: Non- GFR Calc Glucose measurementOrdered B y: Nelson Hobson on 06-05-2024 Glucose [Mass/Vol] 115 mg/dL High 74-106 [facility] Comment on above: Fasting Glucose resu lt from 100 to 125 mg/dL suggests IMPAIRED HOMEOSTASIS per A.D.A. criteria. Hematocrit Auto (Bld) [Volum e fraction]Ordered By: Nelson Hobson on 06-05-2024 Hematocrit (Bld) [Volume fraction] 43.0 % 37-47 [facility] Hemoglobin measurementOrdere d By: Nelson Hobson on 06-05-2024 Hemoglobin (Bld) [Mass/Vol] 14.6 g/dL 12.0-15.0 [facility] Immature granulocytes/100 WB C Auto (Bld)Ordered By: Nelson Funk on 06-05-2024 Immature granulocytes/100 WBC (Bld) 0.600 % 0.0-0.9 [facility] Comment on above: IG% - Immature Granu locytes (promyelocytes, myelocytes and metamyelocytes) > 1% indicates that a LEFT SHIFT is Present. International normalized rat io (INR) calculationOrdered By: Nelson Hobson on 06-05-2024 INR Coag (Bld) [Relative time] 1.5 {INR} [facility] LDHon 06-05-2024 LDH 209 U/L Normal 84-246 [facility] Comment on above: Order Comment: 1 Performed By: #### L 300.4310, L504.2610, L100.0100, L300.3900, L300.8000, L500.4050 ####[facility] [address] [place], [address] Laboratory - Chemistry and C hemistry - challengeOrdered By: Nelson Hobson on 06-05-2024 AST [Catalytic activity/Vol] 20 U/L 15-37 [facility] Lactate dehydrogenase (LDH) measurementOrdered By: Nelson Hobson on 06-05-2024 LDH [Catalytic activity/Vol] 209 U/L 84-246 [facility] Lymphocytes Auto (Unsp spec) [#/Vol]Ordered By: Nelson Hobson on 06-05-2024 Lymphocytes (Bld) [#/Vol] 2.73 10*3/uL 0.83-4.51 [facility] Lymphocytes/100 WBC Auto (Un sp spec)Ordered By: Nelson Hobson on 06-05-2024 Lymphocytes/100 WBC (Bld) 21.8 % 19-41 [facility] MCV (mean corpuscular volume ) determinationOrdered By: Nelson Hobson on 06-05-2024 MCV (RBC) [Entitic vol] 87.2 fL 81-99 [facility] Mean corpuscular hemoglobin (MCH) determinationOrdered By: Nelson Hobson on 06-05-2024 MCH (RBC) [Entitic mass] 29.6 pg 27.0-32.0 [facility] Mean corpuscular hemoglobin concentration (MCHC) determinationOrdered By: Nelson Hobson on 06-05-2024 MCHC (RBC) [Mass/Vol] 34.0 g/dL 32-36 [facility] Mean platelet volume determi nationOrdered By: Nelson Hobson on 06-05-2024 Platelet mean volume (Bld) [Entitic vol] 9.3 fL 6.2-12.0 [facility] Monocyte percentageOrdered B y: Nelson Hobson on 06-05-2024 Monocytes/100 WBC (Bld) 9.4 % 0-10 [facility] Neutrophil percentageOrdered By: Nelson Hobson on 06-05-2024 Neutrophils/100 WBC (Bld) 66.7 % 47-70 [facility] Nucleated red blood cell per centageOrdered By: Nelson Hobson on 06-05-2024 Nucleated RBC/100 WBC (Bld) [Ratio] 0 % 0-5 [facility] Oncology Visit Reporton 05-13 Oncology Visit Report Normal [facility] Partial Thromboplast Timeon 06-05-2024 aPTT Coag (Bld) [Time] 28.7 s Normal 24.1-36.2 [facility] Comment on above: Performed By: #### L 300.4310, L504.2610, L100.0100, L300.3900, L300.8000, L500.4050 ####[facility] [address] [place], [address] Platelet countOrdered By: Niya Hobson on 06-05-2024 Platelets (Bld) [#/Vol] 303 10*3/uL 150-450 [facility] Potassium measurementOrdered By: Nelson Hobson on 06-05-2024 Potassium [Moles/Vol] 2.8 mmol/L Low 3.5-5.1 [facility] Prothrombin Time w/INRon INR Coag (PPP) [Relative time] 1.5 {INR} Normal [facility] Comment on above: Performed By: #### L 300.4310, L504.2610, L100.0100, L300.3900, L300.8000, L500.4050 ####[facility] [address] [place], [address] PT Coag (PPP) [Time] 17.8 s High 11.7-14.[address] [facility] Comment on above: Performed By: #### L 300.4310, L504.2610, L100.0100, L300.3900, L300.8000, L500.4050 ####[facility] [address] [place], [address] Prothrombin timeOrdered By: Nelson Hobson on 06-05-2024 PT Coag (PPP) [Time] 17.8 s High 11.7-14.[address] [facility] RBC Auto (Bld) [#/Vol]Ordere d By: Nelson Hobson on 06-05-2024 RBC (Bld) [#/Vol] 4.93 10*6/uL 4.2-5.4 [facility] Serum anion gap measurementO rdered By: Nelson Hobson on 06-05-2024 Anion gap [Moles/Vol] 9 mmol/L 5-15 [facility] Serum globulin measurementOr dered By: Nelson Hobson on 06-05-2024 Globulin (S) [Mass/Vol] 3.8 g/dL 2.2-4.2 [facility] Serum or plasma alanine cooper otransferase (ALT) measurementOrdered By: Nelson Hobson on 06-05-2024 ALT [Catalytic activity/Vol] 19 U/L 13-56 [facility] Serum or plasma albumin raine urement (mass/volume)Ordered By: Nelson Hobson on 06-05-2024 Albumin [Mass/Vol] 3.4 g/dL 3.2-5.0 [facility] Serum or plasma alkaline haven sphatase measurementOrdered By: Nelson Hobson on 06-05-2024 ALP [Catalytic activity/Vol] 80 U/L 45-117 [facility] Serum or plasma calcium raine urement (mass/volume)Ordered By: Nelson Hobson on 06-05-2024 Calcium [Mass/Vol] 9.4 mg/dL 8.5-10.1 [facility] Serum or plasma creatinine m easurement (mass/volume)Ordered By: Nelson Hobson on 06-05-2024 Creatinine [Mass/Vol] 0.86 mg/dL 0.55-1.02 [facility] Comment on above: The validity of the calculated GFR & GFRAA in patients over 70 years has not been determined. Clinical correlation is essential. Serum or plasma urea nitroge n measurement (mass/volume)Ordered By: Nelson Hobson on 06-05-2024 Urea nitrogen [Mass/Vol] 19 mg/dL High 7-18 [facility] Sodium levelOrdered By: Venu Hobson on 06-05-2024 Sodium [Moles/Vol] 141 mmol/L 136-145 [facility] Total proteinOrdered By: Dickson Hobson on 06-05-2024 Protein [Mass/Vol] 7.2 g/dL 6.4-8.2 [facility] White blood cell (WBC) count Ordered By: Nelson Hobson on 06-05-2024 WBC (Bld) [#/Vol] 12.5 10*3/uL High 4.4-11.0 [facility] aPTT Coag (PPP) [Time]Ordere d By: Nelson Hobson on 06-05-2024 aPTT Coag (Bld) [Time] 28.7 s 24.1-36.2 [facility] Brain/Head without Contrasto n 06-04-2024 Brain/Head without Contrast Normal [facility] Emergency Department Summary on 06-04-2024 Emergency Department Summary Normal [facility] Spine Cervical without Contr ason 06-04-2024 Spine Cervical without Contras Normal [facility] Urine Cultureon 05-18-2024 URC Normal [facility] Comment on above: Performed By: #### M 100.2200 ####[facility] [address] [place], [place], [address] Venous Duplex US - Eben Extre mon 05-12-2024 Venous Duplex US - Eben Extrem Normal [facility] CTA Chest W/WO Contraston CTA Chest W/WO Contrast Normal [facility] CBC W/Diff, Automatedon 04-12 Absolute Lymph 2.85 X10 3/uL Normal 0.83-4.51 [facility] Comment on above: Performed By: #### L 504.2610, L500.4050, L100.0100, L300.8000, L300.3900, L300.4310 ####[facility] [address] [place], [place], [address] Absolute Neut 6.9 X10 3/uL Normal 2.0-7.7 [facility] Comment on above: Performed By: #### L 504.2610, L500.4050, L100.0100, L300.8000, L300.3900, L300.4310 ####[facility] [address] [place], [address] Basophils/100 WBC (Bld) 0.5 % Normal 0-1 [facility] Comment on above: Performed By: #### L 504.2610, L500.4050, L100.0100, L300.8000, L300.3900, L300.4310 ####[facility] [address] [place], [address] Eosinophils/100 WBC (Bld) 0.8 % Normal 0-5 [facility] Comment on above: Performed By: #### L 504.2610, L500.4050, L100.0100, L300.8000, L300.3900, L300.4310 ####[facility] [address] [place], [address] Erythrocyte distribution width (RBC) [Ratio] 13.2 % Normal 11.6-14.6 [facility] Comment on above: Performed By: #### L 504.2610, L500.4050, L100.0100, L300.8000, L300.3900, L300.4310 ####[facility] [address] [place], [address] Hematocrit (Bld) [Volume fraction] 43.8 % Normal 37-47 [facility] Comment on above: Performed By: #### L 504.2610, L500.4050, L100.0100, L300.8000, L300.3900, L300.4310 ####[facility] [address] [place], [address] Hemoglobin (Bld) [Mass/Vol] 14.7 g/dL Normal 12.0-15.0 [facility] Comment on above: Performed By: #### L 504.2610, L500.4050, L100.0100, L300.8000, L300.3900, L300.4310 ####[facility] [address] [place], [address] IG% 0.800 Normal 0.0-0.9 [facility] Comment on above: Result Comment: IG% - Immature Granulocytes (promyelocytes, myelocytes andmetamyelocytes) > 1% indicates that a LEFT SHIFT is Present. Performed By: #### L 504.2610, L500.4050, L100.0100, L300.8000, L300.3900, L300.4310 ####[facility] [address] [place], [address] Lymphocytes/100 WBC (Bld) 26.0 % Normal 19-41 [facility] Comment on above: Performed By: #### L 504.2610, L500.4050, L100.0100, L300.8000, L300.3900, L300.4310 ####[facility] [address] [place], [address] MCH (RBC) [Entitic mass] 30.5 pg Normal 27.0-32.0 [facility] Comment on above: Performed By: #### L 504.2610, L500.4050, L100.0100, L300.8000, L300.3900, L300.4310 ####[facility] [address] [place], [address] MCHC (RBC) [Mass/Vol] 33.6 g/dL Normal 32-36 [facility] Comment on above: Performed By: #### L 504.2610, L500.4050, L100.0100, L300.8000, L300.3900, L300.4310 ####[facility] [address] [place], [address] MCV (RBC) [Entitic vol] 90.9 fL Normal 81-99 [facility] Comment on above: Performed By: #### L 504.2610, L500.4050, L100.0100, L300.8000, L300.3900, L300.4310 ####[facility] [address] [place], [address] Monocytes/100 WBC (Bld) 8.9 % Normal 0-10 [facility] Comment on above: Performed By: #### L 504.2610, L500.4050, L100.0100, L300.8000, L300.3900, L300.4310 ####[facility] [address] [place], [address] Neutrophils/100 WBC (Bld) 63.0 % Normal 47-70 [facility] Comment on above: Performed By: #### L 504.2610, L500.4050, L100.0100, L300.8000, L300.3900, L300.4310 ####[facility] [address] [place], [address] Nucleated RBC (Bld) [#/Vol] 0 10*3/uL Normal 0-5 [facility] Comment on above: Performed By: #### L 504.2610, L500.4050, L100.0100, L300.8000, L300.3900, L300.4310 ####[facility] [address] [place], [address] Platelet mean volume (Bld) [Entitic vol] 9.3 fL Normal 6.2-12.0 [facility] Comment on above: Performed By: #### L 504.2610, L500.4050, L100.0100, L300.8000, L300.3900, L300.4310 ####[facility] [address] [place], [address] Platelets (Bld) [#/Vol] 294 10*3/uL Normal 150-450 [facility] Comment on above: Performed By: #### L 504.2610, L500.4050, L100.0100, L300.8000, L300.3900, L300.4310 ####[facility] [address] [place], [address] RBC (Bld) [#/Vol] 4.82 10*6/uL Normal 4.2-5.4 [facility] Comment on above: Performed By: #### L 504.2610, L500.4050, L100.0100, L300.8000, L300.3900, L300.4310 ####[facility] [address] [place], [address]( RDW SD 44.8 fl High 35.1-43.9 [facility] Comment on above: Performed By: #### L 504.2610, L500.4050, L100.0100, L300.8000, L300.3900, L300.4310 ####[facility] [address] [place], [address] WBC (Bld) [#/Vol] 11.0 10*3/uL Normal 4.4-11.0 [facility] Comment on above: Performed By: #### L 504.2610, L500.4050, L100.0100, L300.8000, L300.3900, L300.4310 ####[facility] [address] [place], [address] Comprehensive Metabolic Prof pron 05-08-2024 Albumin [Mass/Vol] 3.4 g/dL Normal 3.2-5.0 [facility] Comment on above: Order Comment: 1 Performed By: #### L 504.2610, L500.4050, L100.0100, L300.8000, L300.3900, L300.4310 ####[facility] [address] [place], [address] Albumin/Globulin [Mass ratio] 1.0 {ratio} Normal 0.9-2.4 [facility] Comment on above: Order Comment: 1 Performed By: #### L 504.2610, L500.4050, L100.0100, L300.8000, L300.3900, L300.4310 ####[facility] [address] [place], [address] ALK P 81 U/L Normal 45-117 [facility] Comment on above: Order Comment: 1 Performed By: #### L 504.2610, L500.4050, L100.0100, L300.8000, L300.3900, L300.4310 ####[facility] [address] [place], [address] ALT [Catalytic activity/Vol] 18 U/L Normal 13-56 [facility] Comment on above: Order Comment: 1 Performed By: #### L 504.2610, L500.4050, L100.0100, L300.8000, L300.3900, L300.4310 ####[facility] [address] [place], [address] AST [Catalytic activity/Vol] 18 U/L Normal 15-37 [facility] Comment on above: Order Comment: 1 Performed By: #### L 504.2610, L500.4050, L100.0100, L300.8000, L300.3900, L300.4310 ####[facility] [address] [place], [address] Bilirubin [Mass/Vol] 0.60 mg/dL Normal 0.20-1.[address] [facility] Comment on above: Order Comment: 1 Result Comment: For patients on eltrombopag therapy, use of Dimension [place] TBIL is not recommended. Performed By: #### L 504.2610, L500.4050, L100.0100, L300.8000, L300.3900, L300.4310 ####[facility] [address] [place], [address] BUN/CRE 16.5 RATIO Normal 10-20 [facility] Comment on above: Order Comment: 1 Performed By: #### L 504.2610, L500.4050, L100.0100, L300.8000, L300.3900, L300.4310 ####[facility] [address] [place], [address] CA,Total 9.2 mg/dL Normal 8.5-10.1 [facility] Comment on above: Order Comment: 1 Performed By: #### L 504.2610, L500.4050, L100.0100, L300.8000, L300.3900, L300.4310 ####[facility] [address] [place], [address] Chloride [Moles/Vol] 110 mmol/L High 98-[address] [facility] Comment on above: Order Comment: 1 Performed By: #### L 504.2610, L500.4050, L100.0100, L300.8000, L300.3900, L300.4310 ####[facility] [address] [place], [address] CO2 [Moles/Vol] 25.0 mmol/L Normal 21.0-32.0 [facility] Comment on above: Order Comment: 1 Performed By: #### L 504.2610, L500.4050, L100.0100, L300.8000, L300.3900, L300.4310 ####[facility] [address] [place], [address] Creatinine [Mass/Vol] 0.97 mg/dL Normal 0.55-1.02 [facility] Comment on above: Order Comment: 1 Result Comment: The validity of the calculated GFR GFRAA in patients over70 years has not been determined. Clinical correlation isessential. Performed By: #### L 504.2610, L500.4050, L100.0100, L300.8000, L300.3900, L300.4310 ####[facility] [address] [place], [place], [phone] EST GFR - AA 72 mL/min Normal >60 [facility] Comment on above: Order Comment: 1 Result Comment: Afri can [place] GFR Calc Performed By: #### L 504.2610, L500.4050, L100.0100, L300.8000, L300.3900, L300.4310 ####[facility] [address] [place], [place], [phone] GAP 5 Normal 5-15 [facility] Comment on above: Order Comment: 1 Performed By: #### L 504.2610, L500.4050, L100.0100, L300.8000, L300.3900, L300.4310 ####[facility] [address] [place], [place], [phone] GFR/1.73 sq M.predicted among non-blacks MDRD (S/P/Bld) [Vol rate/Area] 59 mL/min/{1.73_m2} Low >60 [facility] Comment on above: Order Comment: 1 Result Comment: Non- GFR Calc Performed By: #### L 504.2610, L500.4050, L100.0100, L300.8000, L300.3900, L300.4310 ####[facility] [address] [place], [place], [phone] Globulin (S) [Mass/Vol] 3.4 g/dL Normal 2.2-4.2 [facility] Comment on above: Order Comment: 1 Performed By: #### L 504.2610, L500.4050, L100.0100, L300.8000, L300.3900, L300.4310 ####[facility] [address] [place], [address] Glucose [Mass/Vol] 112 mg/dL High 74-106 [facility] Comment on above: Order Comment: 1 Result Comment: Fast ing Glucose result from 100 to 125 mg/dLsuggests IMPAIRED HOMEOSTASIS per A.D.A. criteria. Performed By: #### L 504.2610, L500.4050, L100.0100, L300.8000, L300.3900, L300.4310 ####[facility] [address] [place], [address] Potassium [Moles/Vol] 3.6 mmol/L Normal 3.5-5.1 [facility] Comment on above: Order Comment: 1 Performed By: #### L 504.2610, L500.4050, L100.0100, L300.8000, L300.3900, L300.4310 ####[facility] [address] [place], [address] Sodium [Moles/Vol] 140 mmol/L Normal 136-145 [facility] Comment on above: Order Comment: 1 Performed By: #### L 504.2610, L500.4050, L100.0100, L300.8000, L300.3900, L300.4310 ####[facility] [address] [place], [address] T PROT 6.8 g/dL Normal 6.4-8.2 [facility] Comment on above: Order Comment: 1 Performed By: #### L 504.2610, L500.4050, L100.0100, L300.8000, L300.3900, L300.4310 ####[facility] [address] [place], [address] Urea nitrogen [Mass/Vol] 16 mg/dL Normal 7-18 [facility] Comment on above: Order Comment: 1 Performed By: #### L 504.2610, L500.4050, L100.0100, L300.8000, L300.3900, L300.4310 ####[facility] [address] [place], [place], [phone] D-Dimer Quantitative (DVT/PE )on 05-08-2024 D-DIMER QUANT 0.31 FEU/ug/m Normal 0.27-0.49 [facility] Comment on above: Result Comment: NORM AL D-Dimer level (<0.50) indicates no DVT or PE. Performed By: #### L 504.2610, L500.4050, L100.0100, L300.8000, L300.3900, L300.4310 ####[facility] [address] [place], [address] LDHon 05-08-2024 LDH 233 U/L Normal 84-246 [facility] Comment on above: Order Comment: 1 Performed By: #### L 504.2610, L500.4050, L100.0100, L300.8000, L300.3900, L300.4310 ####[facility] [address] [place], [place], [phone] Oncology Visit Reporton 04-12 Oncology Visit Report Normal [facility] Partial Thromboplast Timeon 05-08-2024 aPTT Coag (Bld) [Time] 28.2 s Normal 24.1-36.2 [facility] Comment on above: Performed By: #### L 504.2610, L500.4050, L100.0100, L300.8000, L300.3900, L300.4310 ####[facility] [address] [place], [place], [phone] Prothrombin Time w/INRon INR Coag (PPP) [Relative time] 1.5 {INR} Normal [facility] Comment on above: Performed By: #### L 504.2610, L500.4050, L100.0100, L300.8000, L300.3900, L300.4310 ####[facility] [address] [place], [address] PT Coag (PPP) [Time] 17.8 s High 11.7-14.[address] [facility] Comment on above: Performed By: #### L 504.2610, L500.4050, L100.0100, L300.8000, L300.3900, L300.4310 ####[facility] [address] [place], [address] MR/BMS.BVSon 03-31-2024 MR/BMS.BVS Normal [facility] Basic Metabolic Profile (BMP )on 03-17-2024 BUN Normal 7-18 [facility] Comment on above: Result Comment: Canc elled via OM: Order cancelled - Patient discharged Performed By: #### L 500.2500, L100.0100 ####[facility] [address] [place], [address] BUN/CRE Normal 10-20 [facility] Comment on above: Result Comment: Canc elled via OM: Order cancelled - Patient discharged Performed By: #### L 500.2500, L100.0100 ####[facility] [address] [place], [address] CA,Total Normal 8.5-10.1 [facility] Comment on above: Result Comment: Canc elled via OM: Order cancelled - Patient discharged Performed By: #### L 500.2500, L100.0100 ####[facility] [address] [place], [address] CL Normal 98-107 [facility] Comment on above: Result Comment: Canc elled via OM: Order cancelled - Patient discharged Performed By: #### L 500.2500, L100.0100 ####[facility] [address] [place], [address] CO2 Normal 21.0-32.0 [facility] Comment on above: Result Comment: Canc elled via OM: Order cancelled - Patient discharged Performed By: #### L 500.2500, L100.0100 ####[facility] [address] [place], [address] CREAT,SERUM Normal 0.55-1.02 [facility] Comment on above: Result Comment: Canc elled via OM: Order cancelled - Patient discharged Performed By: #### L 500.2500, L100.0100 ####[facility] [address] [place], [address] EST GFR Normal >60 [facility] Comment on above: Result Comment: Canc elled via OM: Order cancelled - Patient discharged Performed By: #### L 500.2500, L100.0100 ####[facility] [address] [place], [address] EST GFR - AA Normal >60 [facility] Comment on above: Result Comment: Canc elled via OM: Order cancelled - Patient discharged Performed By: #### L 500.2500, L100.0100 ####[facility] [address] [place], [address] GAP Normal 5-15 [facility] Comment on above: Result Comment: Canc elled via OM: Order cancelled - Patient discharged Performed By: #### L 500.2500, L100.0100 ####[facility] [address] [place], [address] GLU Normal 74-106 [facility] Comment on above: Result Comment: Canc elled via OM: Order cancelled - Patient discharged Performed By: #### L 500.2500, L100.0100 ####[facility] [address] [place], [address] Potassium Normal 3.5-5.1 [facility] Comment on above: Result Comment: Canc elled via OM: Order cancelled - Patient discharged Performed By: #### L 500.2500, L100.0100 ####[facility] [address] [place], [address] Basic Metabolic Profile (BMP) Normal 136-145 [facility] Comment on above: Result Comment: Canc elled via OM: Order cancelled - Patient discharged Performed By: #### L 500.2500, L100.0100 ####[facility] [address] [place], [address] CBC W/Diff, Automatedon 09-0 -2023 Absolute Neut Normal 2.0-7.7 [facility] Comment on above: Result Comment: Canc elled via OM: Order cancelled - Patient discharged Performed By: #### L 500.2500, L100.0100 ####[facility] [address] [place], [address] HCT Normal 37-47 [facility] Comment on above: Result Comment: Canc elled via OM: Order cancelled - Patient discharged Performed By: #### L 500.2500, L100.0100 ####[facility] [address] [place], [address] HGB Normal 12.0-15.0 [facility] Comment on above: Result Comment: Canc elled via OM: Order cancelled - Patient discharged Performed By: #### L 500.2500, L100.0100 ####[facility] [address] [place], [address] MCH Normal 27.0-32.0 [facility] Comment on above: Result Comment: Canc elled via OM: Order cancelled - Patient discharged Performed By: #### L 500.2500, L100.0100 ####[facility] [address] [place], [address] MCHC Normal 32-36 [facility] Comment on above: Result Comment: Canc elled via OM: Order cancelled - Patient discharged Performed By: #### L 500.2500, L100.0100 ####[facility] [address] [place], [address] MCV Normal 81-99 [facility] Comment on above: Result Comment: Canc elled via OM: Order cancelled - Patient discharged Performed By: #### L 500.2500, L100.0100 ####[facility] [address] [place], [address] NEUT% Normal 47-70 [facility] Comment on above: Result Comment: Canc elled via OM: Order cancelled - Patient discharged Performed By: #### L 500.2500, L100.0100 ####[facility] [address] [place], [address] PLT Normal 150-450 [facility] Comment on above: Result Comment: Canc elled via OM: Order cancelled - Patient discharged Performed By: #### L 500.2500, L100.0100 ####[facility] [address] [place], [address] RBC Normal 4.2-5.4 [facility] Comment on above: Result Comment: Canc elled via OM: Order cancelled - Patient discharged Performed By: #### L 500.2500, L100.0100 ####[facility] [address] [place], [address] RDW CV Normal 11.6-14.6 [facility] Comment on above: Result Comment: Canc elled via OM: Order cancelled - Patient discharged Performed By: #### L 500.2500, L100.0100 ####[facility] [address] [place], [address] RDW SD Normal 35.1-43.9 [facility] Comment on above: Result Comment: Canc elled via OM: Order cancelled - Patient discharged Performed By: #### L 500.2500, L100.0100 ####[facility] [address] [place], [address] WBC Normal 4.4-11.0 [facility] Comment on above: Result Comment: Canc elled via OM: Order cancelled - Patient discharged Performed By: #### L 500.2500, L100.0100 ####[facility] [address] [place], [address] Basic Metabolic Profile (BMP )on 03-16-2024 BUN/CRE 23.1 RATIO High 10-20 [facility] Comment on above: Performed By: #### L 500.2500, L100.0100 ####[facility] [address] [place], [address] CA,Total 9.0 mg/dL Normal 8.5-10.1 [facility] Comment on above: Performed By: #### L 500.2500, L100.0100 ####[facility] [address] [place], [address] Chloride [Moles/Vol] 108 mmol/L High 98-[address] [facility] Comment on above: Performed By: #### L 500.2500, L100.0100 ####[facility] [address] [place], [address] CO2 [Moles/Vol] 28.0 mmol/L Normal 21.0-32.0 [facility] Comment on above: Performed By: #### L 500.2500, L100.0100 ####[facility] [address] [place], [address] Creatinine [Mass/Vol] 0.78 mg/dL Normal 0.55-1.02 [facility] Comment on above: Result Comment: The validity of the calculated GFR GFRAA in patients over70 years has not been determined. Clinical correlation isessential. Performed By: #### L 500.2500, L100.0100 ####[facility] [address] [place], [address] ECRCL 67.14 ml/min Normal [facility] Comment on above: Performed By: #### L 500.2500, L100.0100 ####[facility] [address] [place], [address] EST GFR - AA 92 mL/min Normal >60 [facility] Comment on above: Result Comment: Afri can [place] GFR Calc Performed By: #### L 500.2500, L100.0100 ####[facility] [address] [place], [address] GAP 4 Low 5-15 [facility] Comment on above: Performed By: #### L 500.2500, L100.0100 ####[facility] [address] [place], [address] GFR/1.73 sq M.predicted among non-blacks MDRD (S/P/Bld) [Vol rate/Area] 76 mL/min/{1.73_m2} Normal >60 [facility] Comment on above: Result Comment: Non- GFR Calc Performed By: #### L 500.2500, L100.0100 ####[facility] [address] [place], [address] Glucose [Mass/Vol] 151 mg/dL High 74-106 [facility] Comment on above: Result Comment: Fast ing Glucose result greater than or equal to 126 mg/dLsuggests DIABETES MELLITUS per A.D.A. criteria. Performed By: #### L 500.2500, L100.0100 ####[facility] [address] [place], [address] Potassium [Moles/Vol] 4.2 mmol/L Normal 3.5-5.1 [facility] Comment on above: Performed By: #### L 500.2500, L100.0100 ####[facility] [address] [place], [address] Sodium [Moles/Vol] 140 mmol/L Normal 136-145 [facility] Comment on above: Performed By: #### L 500.2500, L100.0100 ####[facility] [address] [place], [address] Urea nitrogen [Mass/Vol] 18 mg/dL Normal 7-18 [facility] Comment on above: Performed By: #### L 500.2500, L100.0100 ####[facility] [address] [place], [address] CBC W/Diff, Automatedon PATH REV Reviewed Normal [facility] Comment on above: Result Comment: Neut rophilic left shift.Clinical correlation necessary.Beto Green M.D. 03/16/24 AMENDED REPORT 03/16/24 1016 PATH REV previously reported as: May foll Performed By: #### L 500.2500, L100.0100 ####[facility] [address] [place], [address] PATH REV Reviewed Normal [facility] Comment on above: Result Comment: Neut rophilic left shift.Clinical correlation necessary.Beto Green M.D. 03/16/24 AMENDED REPORT 03/16/24 0852 PATH REV previously reported as: November foll Performed By: #### L 500.2500, L100.0100 ####[facility] [address] [place], [address] Discharge Instructionon Discharge Instruction Normal [facility] Partial Thromboplast Timeon 03-16-2024 aPTT Coag (Bld) [Time] 59.2 s High 24.1-36.2 [facility] Comment on above: Performed By: #### L 3004316 ####[facility] [address] [place], [address] aPTT Coag (Bld) [Time] 49.2 s High 24.1-36.2 [facility] Comment on above: Performed By: #### L 300.4310 ####[facility] [address] [place], [address] Basic Metabolic Profile (BMP )on 03-15-2024 BUN/CRE 28.8 RATIO High 10-20 [facility] Comment on above: Performed By: #### L 500.2500, L100.0100 ####[facility] [address] [place], [address] CA,Total 9.3 mg/dL Normal 8.5-10.1 [facility] Comment on above: Performed By: #### L 500.2500, L100.0100 ####[facility] [address] [place], [address] Chloride [Moles/Vol] 108 mmol/L High 98-[address] [facility] Comment on above: Performed By: #### L 500.2500, L100.0100 ####[facility] [address] [place], [address] CO2 [Moles/Vol] 27.0 mmol/L Normal 21.0-32.0 [facility] Comment on above: Performed By: #### L 500.2500, L100.0100 ####[facility] [address] [place], [address] Creatinine [Mass/Vol] 0.80 mg/dL Normal 0.55-1.02 [facility] Comment on above: Result Comment: The validity of the calculated GFR GFRAA in patients over70 years has not been determined. Clinical correlation isessential. Performed By: #### L 500.2500, L100.0100 ####[facility] [address] [place], [address] ECRCL 67.41 ml/min Normal [facility] Comment on above: Performed By: #### L 500.2500, L100.0100 ####[facility] [address] [place], [address] EST GFR - AA 90 mL/min Normal >60 [facility] Comment on above: Result Comment: Afri can [place] GFR Calc Performed By: #### L 500.2500, L100.0100 ####[facility] [address] [place], [address] GAP 4 Low 5-15 [facility] Comment on above: Performed By: #### L 500.2500, L100.0100 ####[facility] [address] [place], [address] GFR/1.73 sq M.predicted among non-blacks MDRD (S/P/Bld) [Vol rate/Area] 74 mL/min/{1.73_m2} Normal >60 [facility] Comment on above: Result Comment: Non- GFR Calc Performed By: #### L 500.2500, L100.0100 ####[facility] [address] [place], [address] Glucose [Mass/Vol] 116 mg/dL High 74-106 [facility] Comment on above: Result Comment: Fast ing Glucose result from 100 to 125 mg/dLsuggests IMPAIRED HOMEOSTASIS per A.D.A. criteria. Performed By: #### L 500.2500, L100.0100 ####[facility] [address] [place], [address] Potassium [Moles/Vol] 4.5 mmol/L Normal 3.5-5.1 [facility] Comment on above: Result Comment: Mode rate Hemolysis, Result may be falsely increased. Performed By: #### L 500.2500, L100.0100 ####[facility] [address] [place], [address] Sodium [Moles/Vol] 139 mmol/L Normal 136-145 [facility] Comment on above: Performed By: #### L 500.2500, L100.0100 ####[facility] [address] [place], [address] Urea nitrogen [Mass/Vol] 23 mg/dL High 7-18 [facility] Comment on above: Performed By: #### L 500.2500, L100.0100 ####[facility] [address] [place], [address] Operative Reporton Operative Report Normal [facility] Partial Thromboplast Timeon 03-15-2024 aPTT Coag (Bld) [Time] 98.9 s Invalid Interpretation Code 24.1-36.2 [facility] Comment on above: Result Comment: CRIT ICAL VALUE VERIFIED. CALLED TO SUSAN IGLESIAS RN ICU03/15/24 1633 Elmo Jimenez.RESULTS READ BACK BY SAME . Performed By: #### L 300.4310 ####[facility] [address] [place], [address] aPTT Coag (Bld) [Time] 49.9 s High 24.1-36.2 [facility] Comment on above: Performed By: #### L 300.4310 ####[facility] [address] [place], [address] Basic Metabolic Profile (BMP )on 03-14-2024 BUN/CRE 33.5 RATIO High 10-20 [facility] Comment on above: Performed By: #### L 500.2500, L100.0100 ####[facility] [address] [place], [address] CA,Total 8.7 mg/dL Normal 8.5-10.1 [facility] Comment on above: Performed By: #### L 500.2500, L100.0100 ####[facility] [address] [place], [address] Chloride [Moles/Vol] 110 mmol/L High 98-[address] [facility] Comment on above: Performed By: #### L 500.2500, L100.0100 ####[facility] [address] [place], [address] CO2 [Moles/Vol] 26.0 mmol/L Normal 21.0-32.0 [facility] Comment on above: Performed By: #### L 500.2500, L100.0100 ####[facility] [address] [place], [address] Creatinine [Mass/Vol] 0.80 mg/dL Normal 0.55-1.02 [facility] Comment on above: Result Comment: The validity of the calculated GFR GFRAA in patients over70 years has not been determined. Clinical correlation isessential. Performed By: #### L 500.2500, L100.0100 ####[facility] [address] [place], [address] ECRCL 67.18 ml/min Normal [facility] Comment on above: Performed By: #### L 500.2500, L100.0100 ####[facility] [address] [place], [address] EST GFR - AA 89 mL/min Normal >60 [facility] Comment on above: Result Comment: Afri can Citizen [place] GFR Calc Performed By: #### L 500.2500, L100.0100 ####[facility] [address] [place], [address] GAP 6 Normal 5-15 [facility] Comment on above: Performed By: #### L 500.2500, L100.0100 ####[facility] [address] [place], [address] GFR/1.73 sq M.predicted among non-blacks MDRD (S/P/Bld) [Vol rate/Area] 74 mL/min/{1.73_m2} Normal >60 [facility] Comment on above: Result Comment: Non- GFR Calc Performed By: #### L 500.2500, L100.0100 ####[facility] [address] [place], [address] Glucose [Mass/Vol] 135 mg/dL High 74-106 [facility] Comment on above: Result Comment: Fast ing Glucose result greater than or equal to 126 mg/dLsuggests DIABETES MELLITUS per A.D.A. criteria. Performed By: #### L 500.2500, L100.0100 ####[facility] [address] [place], [address] Potassium [Moles/Vol] 4.4 mmol/L Normal 3.5-5.1 [facility] Comment on above: Performed By: #### L 500.2500, L100.0100 ####[facility] [address] [place], [address] Sodium [Moles/Vol] 142 mmol/L Normal 136-145 [facility] Comment on above: Performed By: #### L 500.2500, L100.0100 ####[facility] [address] [place], [address] Urea nitrogen [Mass/Vol] 27 mg/dL High 7-18 [facility] Comment on above: Performed By: #### L 500.2500, L100.0100 ####[facility] [address] [place], [address] CBC W/Diff, Automatedon 09-0 3-2023 Absolute Lymph 2.42 X10 3/uL Normal 0.83-4.51 [facility] Comment on above: Performed By: #### L 500.2500, L100.0100 ####[facility] [address] [place], [address] Absolute Neut 6.5 X10 3/uL Normal 2.0-7.7 [facility] Comment on above: Performed By: #### L 500.2500, L100.0100 ####[facility] [address] [place], [address] Basophils/100 WBC (Bld) 0.7 % Normal 0-1 [facility] Comment on above: Performed By: #### L 500.2500, L100.0100 ####[facility] [address] [place], [address] Eosinophils/100 WBC (Bld) 0.8 % Normal 0-5 [facility] Comment on above: Performed By: #### L 500.2500, L100.0100 ####[facility] [address] [place], [address] Erythrocyte distribution width (RBC) [Ratio] 16.2 % High 11.6-14.6 [facility] Comment on above: Performed By: #### L 500.2500, L100.0100 ####[facility] [address] [place], [address] Hematocrit (Bld) [Volume fraction] 36.2 % Low 37-47 [facility] Comment on above: Performed By: #### L 500.2500, L100.0100 ####[facility] [address] [place], [address] Hemoglobin (Bld) [Mass/Vol] 11.5 g/dL Low 12.0-15.0 [facility] Comment on above: Performed By: #### L 500.2500, L100.0100 ####[facility] [address] [place], [address] IG% 3.300 High 0.0-0.9 [facility] Comment on above: Result Comment: IG% - Immature Granulocytes (promyelocytes, myelocytes andmetamyelocytes) > 1% indicates that a LEFT SHIFT is Present. Performed By: #### L 500.2500, L100.0100 ####[facility] [address] [place], [address] Lymphocytes/100 WBC (Bld) 22.5 % Normal 19-41 [facility] Comment on above: Performed By: #### L 500.2500, L100.0100 ####[facility] [address] [place], [address] MCH (RBC) [Entitic mass] 29.3 pg Normal 27.0-32.0 [facility] Comment on above: Performed By: #### L 500.2500, L100.0100 ####[facility] [address] [place], [address] MCHC (RBC) [Mass/Vol] 31.8 g/dL Low 32-36 [facility] Comment on above: Performed By: #### L 500.2500, L100.0100 ####[facility] [address] [place], [address] MCV (RBC) [Entitic vol] 92.1 fL Normal 81-99 [facility] Comment on above: Performed By: #### L 500.2500, L100.0100 ####[facility] [address] [place], [address] Monocytes/100 WBC (Bld) 12.1 % High 0-10 [facility] Comment on above: Performed By: #### L 500.2500, L100.0100 ####[facility] [address] [place], [address] Neutrophils/100 WBC (Bld) 60.6 % Normal 47-70 [facility] Comment on above: Performed By: #### L 500.2500, L100.0100 ####[facility] [address] [place], [address] Nucleated RBC (Bld) [#/Vol] 0 10*3/uL Normal 0-5 [facility] Comment on above: Performed By: #### L 500.2500, L100.0100 ####[facility] [address] [place], [address] Platelet mean volume (Bld) [Entitic vol] 9.5 fL Normal 6.2-12.0 [facility] Comment on above: Performed By: #### L 500.2500, L100.0100 ####[facility] [address] [place], [address] Platelets (Bld) [#/Vol] 178 10*3/uL Normal 150-450 [facility] Comment on above: Performed By: #### L 500.2500, L100.0100 ####[facility] [address] [place], [address] RBC (Bld) [#/Vol] 3.93 10*6/uL Low 4.2-5.4 [facility] Comment on above: Performed By: #### L 500.2500, L100.0100 ####[facility] [address] [place], [address] RDW SD 55.0 fl High 35.1-43.9 [facility] Comment on above: Performed By: #### L 500.2500, L100.0100 ####[facility] [address] [place], [address] WBC (Bld) [#/Vol] 10.8 10*3/uL Normal 4.4-11.0 [facility] Comment on above: Performed By: #### L 500.2500, L100.0100 ####[facility] [address] [place], [address] Partial Thromboplast Timeon 03-14-2024 aPTT Coag (Bld) [Time] 63.6 s High 24.1-36.2 [facility] Comment on above: Performed By: #### L 300.4310 ####[facility] [address] [place], [address] Basic Metabolic Profile (BMP )on 03-13-2024 BUN/CRE 28.5 RATIO High 10-20 [facility] Comment on above: Performed By: #### L 500.2500, L100.0100 ####[facility] [address] [place], [address] CA,Total 8.8 mg/dL Normal 8.5-10.1 [facility] Comment on above: Performed By: #### L 500.2500, L100.0100 ####[facility] [address] [place], [address] Chloride [Moles/Vol] 111 mmol/L High 98-[address] [facility] Comment on above: Performed By: #### L 500.2500, L100.0100 ####[facility] [address] [place], [address] CO2 [Moles/Vol] 25.0 mmol/L Normal 21.0-32.0 [facility] Comment on above: Performed By: #### L 500.2500, L100.0100 ####[facility] [address] [place], [address] Creatinine [Mass/Vol] 0.95 mg/dL Normal 0.55-1.02 [facility] Comment on above: Result Comment: The validity of the calculated GFR GFRAA in patients over70 years has not been determined. Clinical correlation isessential. Performed By: #### L 500.2500, L100.0100 ####[facility] [address] [place], [address] ECRCL 55.44 ml/min Normal [facility] Comment on above: Performed By: #### L 500.2500, L100.0100 ####[facility] [address] [place], [address] EST GFR - AA 74 mL/min Normal >60 [facility] Comment on above: Result Comment: Afri can Citizen [place] GFR Calc Performed By: #### L 500.2500, L100.0100 ####[facility] [address] [place], [address] GAP 6 Normal 5-15 [facility] Comment on above: Performed By: #### L 500.2500, L100.0100 ####[facility] [address] [place], [address] GFR/1.73 sq M.predicted among non-blacks MDRD (S/P/Bld) [Vol rate/Area] 61 mL/min/{1.73_m2} Normal >60 [facility] Comment on above: Result Comment: Non- GFR Calc Performed By: #### L 500.2500, L100.0100 ####[facility] [address] [place], [address] Glucose [Mass/Vol] 160 mg/dL High 74-106 [facility] Comment on above: Result Comment: Fast ing Glucose result greater than or equal to 126 mg/dLsuggests DIABETES MELLITUS per A.D.A. criteria. Performed By: #### L 500.2500, L100.0100 ####[facility] [address] [place], [address] Potassium [Moles/Vol] 4.0 mmol/L Normal 3.5-5.1 [facility] Comment on above: Performed By: #### L 500.2500, L100.0100 ####[facility] [address] [place], [address] Sodium [Moles/Vol] 142 mmol/L Normal 136-145 [facility] Comment on above: Performed By: #### L 500.2500, L100.0100 ####[facility] [address] [place], [address] Urea nitrogen [Mass/Vol] 27 mg/dL High 7-18 [facility] Comment on above: Performed By: #### L 500.2500, L100.0100 ####[facility] [address] [place], [address] CBC W/Diff, Automatedon 09-0 2-4 Absolute Lymph 2.44 X10 3/uL Normal 0.83-4.51 [facility] Comment on above: Performed By: #### L 500.2500, L100.0100 ####[facility] [address] [place], [address] Absolute Neut 7.1 X10 3/uL Normal 2.0-7.7 [facility] Comment on above: Performed By: #### L 500.2500, L100.0100 ####[facility] [address] [place], [address] Basophils/100 WBC (Bld) 0.6 % Normal 0-1 [facility] Comment on above: Performed By: #### L 500.2500, L100.0100 ####[facility] [address] [place], [address] Eosinophils/100 WBC (Bld) 0.4 % Normal 0-5 [facility] Comment on above: Performed By: #### L 500.2500, L100.0100 ####[facility] [address] [place], [address] Erythrocyte distribution width (RBC) [Ratio] 16.5 % High 11.6-14.6 [facility] Comment on above: Performed By: #### L 500.2500, L100.0100 ####[facility] [address] [place], [address] Hematocrit (Bld) [Volume fraction] 39.9 % Normal 37-47 [facility] Comment on above: Performed By: #### L 500.2500, L100.0100 ####[facility] [address] [place], [address] Hemoglobin (Bld) [Mass/Vol] 12.7 g/dL Normal 12.0-15.0 [facility] Comment on above: Performed By: #### L 500.2500, L100.0100 ####[facility] [address] [place], [address] IG% 2.800 High 0.0-0.9 [facility] Comment on above: Result Comment: IG% - Immature Granulocytes (promyelocytes, myelocytes andmetamyelocytes) > 1% indicates that a LEFT SHIFT is Present. Performed By: #### L 500.2500, L100.0100 ####[facility] [address] [place], [address] Lymphocytes/100 WBC (Bld) 21.7 % Normal 19-41 [facility] Comment on above: Performed By: #### L 500.2500, L100.0100 ####[facility] [address] [place], [address] MCH (RBC) [Entitic mass] 29.3 pg Normal 27.0-32.0 [facility] Comment on above: Performed By: #### L 500.2500, L100.0100 ####[facility] [address] [place], [address] MCHC (RBC) [Mass/Vol] 31.8 g/dL Low 32-36 [facility] Comment on above: Performed By: #### L 500.2500, L100.0100 ####[facility] [address] [place], [address] MCV (RBC) [Entitic vol] 91.9 fL Normal 81-99 [facility] Comment on above: Performed By: #### L 500.2500, L100.0100 ####[facility] [address] [place], [address] Monocytes/100 WBC (Bld) 11.0 % High 0-10 [facility] Comment on above: Performed By: #### L 500.2500, L100.0100 ####[facility] [address] [place], [address] Neutrophils/100 WBC (Bld) 63.5 % Normal 47-70 [facility] Comment on above: Performed By: #### L 500.2500, L100.0100 ####[facility] [address] [place], [address] Nucleated RBC (Bld) [#/Vol] 0 10*3/uL Normal 0-5 [facility] Comment on above: Performed By: #### L 500.2500, L100.0100 ####[facility] [address] [place], [address] Platelet mean volume (Bld) [Entitic vol] 9.6 fL Normal 6.2-12.0 [facility] Comment on above: Performed By: #### L 500.2500, L100.0100 ####[facility] [address] [place], [address] Platelets (Bld) [#/Vol] 209 10*3/uL Normal 150-450 [facility] Comment on above: Performed By: #### L 500.2500, L100.0100 ####[facility] [address] [place], [address] RBC (Bld) [#/Vol] 4.34 10*6/uL Normal 4.2-5.4 [facility] Comment on above: Performed By: #### L 500.2500, L100.0100 ####[facility] [address] [place], [address] RDW SD 55.4 fl High 35.1-43.9 [facility] Comment on above: Performed By: #### L 500.2500, L100.0100 ####[facility] [address] [place], [address] WBC (Bld) [#/Vol] 11.2 10*3/uL High 4.4-11.0 [facility] Comment on above: Performed By: #### L 500.2500, L100.0100 ####[facility] [address] [place], [address] Consultation - Intensiviston 03-13-2024 Consultation - Authorization Rep Normal [facility] Consultation - Surgicalon Consultation - Surgical Normal [facility] Partial Thromboplast Timeon 03-13-2024 aPTT Coag (Bld) [Time] 68.5 s High 24.1-36.2 [facility] Comment on above: Performed By: #### L 300.4310 ####[facility] [address] [place], [address] aPTT Coag (Bld) [Time] 73.1 s High 24.1-36.2 [facility] Comment on above: Performed By: #### L 300.4310 ####[facility] [address] [place], [address] 12 Lead EKGon 03-12-2024 12 Lead EKG Normal [facility] BNP,B-Type NATRIURETIC PEPTI Marcelina 03-12-2024 Natriuretic peptide B (Bld) [Mass/Vol] 113.4 pg/mL High 0-100 [facility] Comment on above: Performed By: #### L 501.4020, L503.6620, L300.3900, L500.2500, L500.3400, L100.0100, L300.4310, L503.6005 ####[facility] [address] [place], [address] Basic Metabolic Profile (BMP )on 03-12-2024 BUN/CRE 24.8 RATIO High 10-20 [facility] Comment on above: Order Comment: 'TROP ' Serial specimen #1, #2 or #3: 1 Performed By: #### L 501.4020, L503.6620, L300.3900, L500.2500, L500.3400, L100.0100, L300.4310, L503.6005 ####[facility] [address] [place], [address] CA,Total 9.6 mg/dL Normal 8.5-10.1 [facility] Comment on above: Order Comment: 'TROP ' Serial specimen #1, #2 or #3: 1 Performed By: #### L 501.4020, L503.6620, L300.3900, L500.2500, L500.3400, L100.0100, L300.4310, L503.6005 ####[facility] [address] [place], [address] Chloride [Moles/Vol] 108 mmol/L High 98-[address] [facility] Comment on above: Order Comment: 'TROP ' Serial specimen #1, #2 or #3: 1 Performed By: #### L 501.4020, L503.6620, L300.3900, L500.2500, L500.3400, L100.0100, L300.4310, L503.6005 ####[facility] [address] [place], [address] CO2 [Moles/Vol] 24.0 mmol/L Normal 21.0-32.0 [facility] Comment on above: Order Comment: 'TROP ' Serial specimen #1, #2 or #3: 1 Performed By: #### L 501.4020, L503.6620, L300.3900, L500.2500, L500.3400, L100.0100, L300.4310, L503.6005 ####[facility] [address] [place], [address] Creatinine [Mass/Vol] 1.13 mg/dL High 0.55-1.02 [facility] Comment on above: Order Comment: 'TROP ' Serial specimen #1, #2 or #3: 1 Result Comment: The validity of the calculated GFR GFRAA in patients over70 years has not been determined. Clinical correlation isessential. Performed By: #### L 501.4020, L503.6620, L300.3900, L500.2500, L500.3400, L100.0100, L300.4310, L503.6005 ####[facility] [address] [place], [address] ECRCL 48.36 ml/min Normal [facility] Comment on above: Order Comment: 'TROP ' Serial specimen #1, #2 or #3: 1 Performed By: #### L 501.4020, L503.6620, L300.3900, L500.2500, L500.3400, L100.0100, L300.4310, L503.6005 ####[facility] [address] [place], [place], [address] EST GFR - AA 60 mL/min Normal >60 [facility] Comment on above: Order Comment: 'TROP ' Serial specimen #1, #2 or #3: 1 Result Comment: Afri can [place] GFR Calc Performed By: #### L 501.4020, L503.6620, L300.3900, L500.2500, L500.3400, L100.0100, L300.4310, L503.6005 ####[facility] [address] [place], [address] GAP 9 Normal 5-15 [facility] Comment on above: Order Comment: 'TROP ' Serial specimen #1, #2 or #3: 1 Performed By: #### L 501.4020, L503.6620, L300.3900, L500.2500, L500.3400, L100.0100, L300.4310, L503.6005 ####[facility] [address] [place], [place], [id number]) GFR/1.73 sq M.predicted among non-blacks MDRD (S/P/Bld) [Vol rate/Area] 50 mL/min/{1.73_m2} Low >60 [facility] Comment on above: Order Comment: 'TROP ' Serial specimen #1, #2 or #3: 1 Result Comment: Non- GFR Calc Performed By: #### L 501.4020, L503.6620, L300.3900, L500.2500, L500.3400, L100.0100, L300.4310, L503.6005 ####[facility] [address] [place], [address] Glucose [Mass/Vol] 223 mg/dL High 74-106 [facility] Comment on above: Order Comment: 'TROP ' Serial specimen #1, #2 or #3: 1 Result Comment: Gluc ose result greater than or equal to 200 mg/dLsuggests DIABETES MELLITUS per A.D.A. criteria. Performed By: #### L 501.4020, L503.6620, L300.3900, L500.2500, L500.3400, L100.0100, L300.4310, L503.6005 ####[facility] [address] [place], [address] Potassium [Moles/Vol] 4.1 mmol/L Normal 3.5-5.1 [facility] Comment on above: Order Comment: 'TROP ' Serial specimen #1, #2 or #3: 1 Result Comment: Slig ht Hemolysis, Result may be falsely increased. Performed By: #### L 501.4020, L503.6620, L300.3900, L500.2500, L500.3400, L100.0100, L300.4310, L503.6005 ####[facility] [address] [place], [address] Sodium [Moles/Vol] 141 mmol/L Normal 136-145 [facility] Comment on above: Order Comment: 'TROP ' Serial specimen #1, #2 or #3: 1 Performed By: #### L 501.4020, L503.6620, L300.3900, L500.2500, L500.3400, L100.0100, L300.4310, L503.6005 ####[facility] [address] [place], [address] Urea nitrogen [Mass/Vol] 28 mg/dL High 7-18 [facility] Comment on above: Order Comment: 'TROP ' Serial specimen #1, #2 or #3: 1 Performed By: #### L 501.4020, L503.6620, L300.3900, L500.2500, L500.3400, L100.0100, L300.4310, L503.6005 ####[facility] [address] [place], [place], [address] CBC W/Diff, Automatedon 09-0 -2023 Absolute Lymph 1.90 X10 3/uL Normal 0.83-4.51 [facility] Comment on above: Performed By: #### L 501.4020, L503.6620, L300.3900, L500.2500, L500.3400, L100.0100, L300.4310, L503.6005 ####[facility] [address] [place], [address] Absolute Neut 10.6 X10 3/uL High 2.0-7.7 [facility] Comment on above: Performed By: #### L 501.4020, L503.6620, L300.3900, L500.2500, L500.3400, L100.0100, L300.4310, L503.6005 ####[facility] [address] [place], [address] Basophils/100 WBC (Bld) 1.1 % High 0-1 [facility] Comment on above: Performed By: #### L 501.4020, L503.6620, L300.3900, L500.2500, L500.3400, L100.0100, L300.4310, L503.6005 ####[facility] [address] [place], [address] Eosinophils/100 WBC (Bld) 0.1 % Normal 0-5 [facility] Comment on above: Performed By: #### L 501.4020, L503.6620, L300.3900, L500.2500, L500.3400, L100.0100, L300.4310, L503.6005 ####[facility] [address] [place], [address] Erythrocyte distribution width (RBC) [Ratio] 16.1 % High 11.6-14.6 [facility] Comment on above: Performed By: #### L 501.4020, L503.6620, L300.3900, L500.2500, L500.3400, L100.0100, L300.4310, L503.6005 ####[facility] [address] [place], [address] Hematocrit (Bld) [Volume fraction] 42.7 % Normal 37-47 [facility] Comment on above: Performed By: #### L 501.4020, L503.6620, L300.3900, L500.2500, L500.3400, L100.0100, L300.4310, L503.6005 ####[facility] [address] [place], [address] Hemoglobin (Bld) [Mass/Vol] 13.9 g/dL Normal 12.0-15.0 [facility] Comment on above: Performed By: #### L 501.4020, L503.6620, L300.3900, L500.2500, L500.3400, L100.0100, L300.4310, L503.6005 ####[facility] [address] [place], [address] IG% 2.300 High 0.0-0.9 [facility] Comment on above: Result Comment: IG% - Immature Granulocytes (promyelocytes, myelocytes andmetamyelocytes) > 1% indicates that a LEFT SHIFT is Present. Performed By: #### L 501.4020, L503.6620, L300.3900, L500.2500, L500.3400, L100.0100, L300.4310, L503.6005 ####[facility] [address] [place], [address] Lymphocytes/100 WBC (Bld) 13.4 % Low 19-41 [facility] Comment on above: Performed By: #### L 501.4020, L503.6620, L300.3900, L500.2500, L500.3400, L100.0100, L300.4310, L503.6005 ####[facility] [address] [place], [address] MCH (RBC) [Entitic mass] 29.1 pg Normal 27.0-32.0 [facility] Comment on above: Performed By: #### L 501.4020, L503.6620, L300.3900, L500.2500, L500.3400, L100.0100, L300.4310, L503.6005 ####[facility] [address] [place], [address] MCHC (RBC) [Mass/Vol] 32.6 g/dL Normal 32-36 [facility] Comment on above: Performed By: #### L 501.4020, L503.6620, L300.3900, L500.2500, L500.3400, L100.0100, L300.4310, L503.6005 ####[facility] [address] [place], [address] MCV (RBC) [Entitic vol] 89.5 fL Normal 81-99 [facility] Comment on above: Performed By: #### L 501.4020, L503.6620, L300.3900, L500.2500, L500.3400, L100.0100, L300.4310, L503.6005 ####[facility] [address] [place], [address] Monocytes/100 WBC (Bld) 8.1 % Normal 0-10 [facility] Comment on above: Performed By: #### L 501.4020, L503.6620, L300.3900, L500.2500, L500.3400, L100.0100, L300.4310, L503.6005 ####[facility] [address] [place], [address] Neutrophils/100 WBC (Bld) 75.0 % High 47-70 [facility] Comment on above: Performed By: #### L 501.4020, L503.6620, L300.3900, L500.2500, L500.3400, L100.0100, L300.4310, L503.6005 ####[facility] [address] [place], [address] Nucleated RBC (Bld) [#/Vol] 0 10*3/uL Normal 0-5 [facility] Comment on above: Performed By: #### L 501.4020, L503.6620, L300.3900, L500.2500, L500.3400, L100.0100, L300.4310, L503.6005 ####[facility] [address] [place], [address] Platelet mean volume (Bld) [Entitic vol] 10.0 fL Normal 6.2-12.0 [facility] Comment on above: Performed By: #### L 501.4020, L503.6620, L300.3900, L500.2500, L500.3400, L100.0100, L300.4310, L503.6005 ####[facility] [address] [place], [address] Platelets (Bld) [#/Vol] 266 10*3/uL Normal 150-450 [facility] Comment on above: Performed By: #### L 501.4020, L503.6620, L300.3900, L500.2500, L500.3400, L100.0100, L300.4310, L503.6005 ####[facility] [address] [place], [address] RBC (Bld) [#/Vol] 4.77 10*6/uL Normal 4.2-5.4 [facility] Comment on above: Performed By: #### L 501.4020, L503.6620, L300.3900, L500.2500, L500.3400, L100.0100, L300.4310, L503.6005 ####[facility] [address] [place], [address] RDW SD 51.7 fl High 35.1-43.9 [facility] Comment on above: Performed By: #### L 501.4020, L503.6620, L300.3900, L500.2500, L500.3400, L100.0100, L300.4310, L503.6005 ####[facility] [address] [place], [address] WBC (Bld) [#/Vol] 14.1 10*3/uL High 4.4-11.0 [facility] Comment on above: Performed By: #### L 501.4020, L503.6620, L300.3900, L500.2500, L500.3400, L100.0100, L300.4310, L503.6005 ####[facility] [address] [place], [address] CTA Chest W/WO Contraston CTA Chest W/WO Contrast Normal [facility] Echo Complete W/ Contraston 03-12-2024 Echo Complete W/ Contrast Normal [facility] Emergency Department Summary on 03-12-2024 Emergency Department Summary Normal [facility] H AND P Exam - Hospitaliston 03-12-2024 H&P Exam - Hospitalist Normal [facility] L501.4020on 03-12-2024 TROPONIN-I HS 282 pg/mL Invalid Interpretation Code 3.0-54.0 [facility] Comment on above: Order Comment: 'TROP ' Serial specimen #1, #2 or #3: 1 Result Comment: Crit ical Result(s) Called at: 13:15:20 03/12/2024 by: Ellen Arthur RN (ER). Results read back by same. Please Note: New Test Units and Gender Specific Reference Ranges. For more information see Policy Stat Procedure [place] High Sensitivity Troponin (TNIH) and attachments. Performed By: #### L 501.4020, L503.6620, L300.3900, L500.2500, L500.3400, L100.0100, L300.4310, L503.6005 ####[facility] [address] [place], [address] Lactic Acidon 03-12-2024 Lactate [Moles/Vol] 2.1 mmol/L Invalid Interpretation Code 0.4-1.9 [facility] Comment on above: Result Comment: Crit ical Result(s) Called at: 17:48:33 03/12/2024 by: ANDRES KELLEY. Results read back by same. Performed By: #### L 503.6005 ####[facility] [address] [place], [address] Lactate [Moles/Vol] 3.2 mmol/L Invalid Interpretation Code 0.4-1.9 [facility] Comment on above: Order Comment: Y Result Comment: Crit ical Result(s) Called at: 13:15:20 03/12/2024 by: Ellen Arthur RN (ER). Results read back by same. Performed By: #### L 501.4020, L503.6620, L300.3900, L500.2500, L500.3400, L100.0100, L300.4310, L503.6005 ####[facility] [address] [place], [address] Liver Profileon 03-12-2024 Albumin [Mass/Vol] 3.4 g/dL Normal 3.2-5.0 [facility] Comment on above: Order Comment: 'TROP ' Serial specimen #1, #2 or #3: 1 Performed By: #### L 501.4020, L503.6620, L300.3900, L500.2500, L500.3400, L100.0100, L300.4310, L503.6005 ####[facility] [address] [place], [address] ALK P 84 U/L Normal 45-117 [facility] Comment on above: Order Comment: 'TROP ' Serial specimen #1, #2 or #3: 1 Performed By: #### L 501.4020, L503.6620, L300.3900, L500.2500, L500.3400, L100.0100, L300.4310, L503.6005 ####[facility] [address] [place], [address] ALT [Catalytic activity/Vol] 33 U/L Normal 13-56 [facility] Comment on above: Order Comment: 'TROP ' Serial specimen #1, #2 or #3: 1 Performed By: #### L 501.4020, L503.6620, L300.3900, L500.2500, L500.3400, L100.0100, L300.4310, L503.6005 ####[facility] [address] [place], [address] AST [Catalytic activity/Vol] 33 U/L Normal 15-37 [facility] Comment on above: Order Comment: 'TROP ' Serial specimen #1, #2 or #3: 1 Result Comment: Slig ht Hemolysis, Result may be falsely increased. Performed By: #### L 501.4020, L503.6620, L300.3900, L500.2500, L500.3400, L100.0100, L300.4310, L503.6005 ####[facility] [address] [place], [address] Bilirubin [Mass/Vol] 0.60 mg/dL Normal 0.20-1.[address] [facility] Comment on above: Order Comment: 'TROP ' Serial specimen #1, #2 or #3: 1 Result Comment: For patients on eltrombopag therapy, use of Dimension [place] TBIL is not recommended. Performed By: #### L 501.4020, L503.6620, L300.3900, L500.2500, L500.3400, L100.0100, L300.4310, L503.6005 ####[facility] [address] [place], [address] Bilirubin.direct [Mass/Vol] 0.17 mg/dL Normal 0.00-0.30 [facility] Comment on above: Order Comment: 'TROP ' Serial specimen #1, #2 or #3: 1 Performed By: #### L 501.4020, L503.6620, L300.3900, L500.2500, L500.3400, L100.0100, L300.4310, L503.6005 ####[facility] [address] [place], [address] Globulin (S) [Mass/Vol] 3.2 g/dL Normal 2.2-4.2 [facility] Comment on above: Order Comment: 'TROP ' Serial specimen #1, #2 or #3: 1 Performed By: #### L 501.4020, L503.6620, L300.3900, L500.2500, L500.3400, L100.0100, L300.4310, L503.6005 ####[facility] [address] [place], [address] T PROT 6.6 g/dL Normal 6.4-8.2 [facility] Comment on above: Order Comment: 'TROP ' Serial specimen #1, #2 or #3: 1 Performed By: #### L 501.4020, L503.6620, L300.3900, L500.2500, L500.3400, L100.0100, L300.4310, L503.6005 ####[facility] [address] [place], [address] Partial Thromboplast Timeon 03-12-2024 aPTT Coag (Bld) [Time] 219.3 s Invalid Interpretation Code 24.1-36.2 [facility] Comment on above: Result Comment: CRIT ICAL VALUE VERIFIED. CALLED TO [id number] Brenda Pereyra.RESULTS READ BACK BY SAME . Performed By: #### L 300.4310 ####[facility] [address] [place], [address] aPTT Coag (Bld) [Time] 22.2 s Low 24.1-36.2 [facility] Comment on above: Performed By: #### L 501.4020, L503.6620, L300.3900, L500.2500, L500.3400, L100.0100, L300.4310, L503.6005 ####[facility] [address] [place], [address] Prothrombin Time w/INRon INR Normal [facility] Comment on above: Result Comment: ELIE LARSEN RN PT HAD SAME LABS DONE 1 [facility] @1598 Performed By: #### L 300.3900 ####[facility] [address] [place], [address] PROTIME Normal 11.7-14.9 [facility] Comment on above: Result Comment: ELIE LARSEN RN PT HAD SAME LABS DONE 1 [facility] @1358 Performed By: #### L 300.3900 ####[facility] [address] [place], [address] INR Coag (PPP) [Relative time] 1.0 {INR} Normal [facility] Comment on above: Performed By: #### L 501.4020, L503.6620, L300.3900, L500.2500, L500.3400, L100.0100, L300.4310, L503.6005 ####[facility] [address] [place], [address] PT Coag (PPP) [Time] 13.4 s Normal 11.7-14.[address] [facility] Comment on above: Performed By: #### L 501.4020, L503.6620, L300.3900, L500.2500, L500.3400, L100.0100, L300.4310, L503.6005 ####[facility] [address] [place], [address] Venous Duplex US - Eben Extre mon 03-12-2024 Venous Duplex US - Eben Extrem Normal [facility] CBC W/Diff, Automatedon 02-11 Absolute Lymph 2.77 X10 3/uL Normal 0.83-4.51 [facility] Comment on above: Performed By: #### L 500.4100, L501.9520, L506.1000, L100.0100, L500.4050 ####[facility] [address] [place], [address] Absolute Neut 6.8 X10 3/uL Normal 2.0-7.7 [facility] Comment on above: Performed By: #### L 500.4100, L501.9520, L506.1000, L100.0100, L500.4050 ####[facility] [address] [place], [address] Basophils/100 WBC (Bld) 0.3 % Normal 0-1 [facility] Comment on above: Performed By: #### L 500.4100, L501.9520, L506.1000, L100.0100, L500.4050 ####[facility] [address] [place], [address] Eosinophils/100 WBC (Bld) 0.6 % Normal 0-5 [facility] Comment on above: Performed By: #### L 500.4100, L501.9520, L506.1000, L100.0100, L500.4050 ####[facility] [address] [place], [address] Erythrocyte distribution width (RBC) [Ratio] 15.6 % High 11.6-14.6 [facility] Comment on above: Performed By: #### L 500.4100, L501.9520, L506.1000, L100.0100, L500.4050 ####[facility] [address] [place], [address] Hematocrit (Bld) [Volume fraction] 43.7 % Normal 37-47 [facility] Comment on above: Performed By: #### L 500.4100, L501.9520, L506.1000, L100.0100, L500.4050 ####[facility] [address] [place], [address] Hemoglobin (Bld) [Mass/Vol] 15.7 g/dL High 12.0-15.0 [facility] Comment on above: Performed By: #### L 500.4100, L501.9520, L506.1000, L100.0100, L500.4050 ####[facility] [address] [place], [address] IG% 2.300 High 0.0-0.9 [facility] Comment on above: Result Comment: IG% - Immature Granulocytes (promyelocytes, myelocytes andmetamyelocytes) > 1% indicates that a LEFT SHIFT is Present. Performed By: #### L 500.4100, L501.9520, L506.1000, L100.0100, L500.4050 ####[facility] [address] [place], [address] Lymphocytes/100 WBC (Bld) 24.6 % Normal 19-41 [facility] Comment on above: Performed By: #### L 500.4100, L501.9520, L506.1000, L100.0100, L500.4050 ####[facility] [address] [place], [address] MCH (RBC) [Entitic mass] 31.8 pg Normal 27.0-32.0 [facility] Comment on above: Performed By: #### L 500.4100, L501.9520, L506.1000, L100.0100, L500.4050 ####[facility] [address] [place], [address] MCHC (RBC) [Mass/Vol] 35.9 g/dL Normal 32-36 [facility] Comment on above: Performed By: #### L 500.4100, L501.9520, L506.1000, L100.0100, L500.4050 ####[facility] [address] [place], [address] MCV (RBC) [Entitic vol] 88.5 fL Normal 81-99 [facility] Comment on above: Performed By: #### L 500.4100, L501.9520, L506.1000, L100.0100, L500.4050 ####[facility] [address] [place], [address] Monocytes/100 WBC (Bld) 11.6 % High 0-10 [facility] Comment on above: Performed By: #### L 500.4100, L501.9520, L506.1000, L100.0100, L500.4050 ####[facility] [address] [place], [address] Neutrophils/100 WBC (Bld) 60.6 % Normal 47-70 [facility] Comment on above: Performed By: #### L 500.4100, L501.9520, L506.1000, L100.0100, L500.4050 ####[facility] [address] [place], [address] Nucleated RBC (Bld) [#/Vol] 0 10*3/uL Normal 0-5 [facility] Comment on above: Performed By: #### L 500.4100, L501.9520, L506.1000, L100.0100, L500.4050 ####[facility] [address] [place], [address] Platelet mean volume (Bld) [Entitic vol] 10.2 fL Normal 6.2-12.0 [facility] Comment on above: Performed By: #### L 500.4100, L501.9520, L506.1000, L100.0100, L500.4050 ####[facility] [address] [place], [address] Platelets (Bld) [#/Vol] 335 10*3/uL Normal 150-450 [facility] Comment on above: Performed By: #### L 500.4100, L501.9520, L506.1000, L100.0100, L500.4050 ####[facility] [address] [place], [address] RBC (Bld) [#/Vol] 4.94 10*6/uL Normal 4.2-5.4 [facility] Comment on above: Performed By: #### L 500.4100, L501.9520, L506.1000, L100.0100, L500.4050 ####[facility] [address] [place], [address] RDW SD 50.6 fl High 35.1-43.9 [facility] Comment on above: Performed By: #### L 500.4100, L501.9520, L506.1000, L100.0100, L500.4050 ####[facility] [address] [place], [address] WBC (Bld) [#/Vol] 11.3 10*3/uL High 4.4-11.0 [facility] Comment on above: Performed By: #### L 500.4100, L501.9520, L506.1000, L100.0100, L500.4050 ####[facility] [address] [place], [address] Comprehensive Metabolic Prof [facility] 03-10-2024 Albumin [Mass/Vol] 3.3 g/dL Normal 3.2-5.0 [facility] Comment on above: Performed By: #### L 500.4100, L501.9520, L506.1000, L100.0100, L500.4050 ####[facility] [address] [place], [address] Albumin/Globulin [Mass ratio] 0.9 {ratio} Normal 0.9-2.4 [facility] Comment on above: Performed By: #### L 500.4100, L501.9520, L506.1000, L100.0100, L500.4050 ####[facility] [address] [place], [address] ALK P 84 U/L Normal 45-117 [facility] Comment on above: Performed By: #### L 500.4100, L501.9520, L506.1000, L100.0100, L500.4050 ####[facility] [address] [place], [address] ALT [Catalytic activity/Vol] 31 U/L Normal 13-56 [facility] Comment on above: Performed By: #### L 500.4100, L501.9520, L506.1000, L100.0100, L500.4050 ####[facility] [address] [place], [address] AST [Catalytic activity/Vol] 22 U/L Normal 15-37 [facility] Comment on above: Performed By: #### L 500.4100, L501.9520, L506.1000, L100.0100, L500.4050 ####[facility] [address] [place], [address] Bilirubin [Mass/Vol] 0.70 mg/dL Normal 0.20-1.[address] [facility] Comment on above: Result Comment: For patients on eltrombopag therapy, use of Dimension [place] TBIL is not recommended. Performed By: #### L 500.4100, L501.9520, L506.1000, L100.0100, L500.4050 ####[facility] [address] [place], [address] BUN/CRE 21.0 RATIO High 10-20 [facility] Comment on above: Performed By: #### L 500.4100, L501.9520, L506.1000, L100.0100, L500.4050 ####[facility] [address] [place], [address] CA,Total 9.7 mg/dL Normal 8.5-10.1 [facility] Comment on above: Performed By: #### L 500.4100, L501.9520, L506.1000, L100.0100, L500.4050 ####[facility] [address] [place], [address] Chloride [Moles/Vol] 111 mmol/L High 98-[address] [facility] Comment on above: Performed By: #### L 500.4100, L501.9520, L506.1000, L100.0100, L500.4050 ####[facility] [address] [place], [address] CO2 [Moles/Vol] 24.0 mmol/L Normal 21.0-32.0 [facility] Comment on above: Performed By: #### L 500.4100, L501.9520, L506.1000, L100.0100, L500.4050 ####[facility] [address] [place], [address] Creatinine [Mass/Vol] 1.00 mg/dL Normal 0.55-1.02 [facility] Comment on above: Result Comment: The validity of the calculated GFR GFRAA in patients over70 years has not been determined. Clinical correlation isessential. Performed By: #### L 500.4100, L501.9520, L506.1000, L100.0100, L500.4050 ####[facility] [address] [place], [address] EST GFR - AA 69 mL/min Normal >60 [facility] Comment on above: Result Comment: Afri can Citizen Of [place] GFR Calc Performed By: #### L 500.4100, L501.9520, L506.1000, L100.0100, L500.4050 ####[facility] [address] [place], [address] GAP 7 Normal 5-15 [facility] Comment on above: Performed By: #### L 500.4100, L501.9520, L506.1000, L100.0100, L500.4050 ####[facility] [address] [place], [address] GFR/1.73 sq M.predicted among non-blacks MDRD (S/P/Bld) [Vol rate/Area] 57 mL/min/{1.73_m2} Low >60 [facility] Comment on above: Result Comment: Non- GFR Calc Performed By: #### L 500.4100, L501.9520, L506.1000, L100.0100, L500.4050 ####[facility] [address] [place], [address] Globulin (S) [Mass/Vol] 3.5 g/dL Normal 2.2-4.2 [facility] Comment on above: Performed By: #### L 500.4100, L501.9520, L506.1000, L100.0100, L500.4050 ####[facility] [address] [place], [address] Glucose [Mass/Vol] 148 mg/dL High 74-106 [facility] Comment on above: Result Comment: Fast ing Glucose result greater than or equal to 126 mg/dLsuggests DIABETES MELLITUS per A.D.A. criteria. Performed By: #### L 500.4100, L501.9520, L506.1000, L100.0100, L500.4050 ####[facility] [address] [place], [address] Potassium [Moles/Vol] 3.8 mmol/L Normal 3.5-5.1 [facility] Comment on above: Performed By: #### L 500.4100, L501.9520, L506.1000, L100.0100, L500.4050 ####[facility] [address] [place], [address] Sodium [Moles/Vol] 142 mmol/L Normal 136-145 [facility] Comment on above: Performed By: #### L 500.4100, L501.9520, L506.1000, L100.0100, L500.4050 ####[facility] [address] [place], [address] T PROT 6.8 g/dL Normal 6.4-8.2 [facility] Comment on above: Performed By: #### L 500.4100, L501.9520, L506.1000, L100.0100, L500.4050 ####[facility] [address] [place], [address] Urea nitrogen [Mass/Vol] 21 mg/dL High 7-18 [facility] Comment on above: Performed By: #### L 500.4100, L501.9520, L506.1000, L100.0100, L500.4050 ####[facility] [address] [place], [address] Lipid Profileon 03-10-2024 Cholesterol [Mass/Vol] 227 mg/dL High 200 [facility] Comment on above: Result Comment: <200 mg/dL Desirable 200-240 mg/dL Borderline >240 mg/dL High Risk Performed By: #### L 500.4100, L501.9520, L506.1000, L100.0100, L500.4050 ####[facility] [address] [place], [address] Cholesterol in HDL [Mass/Vol] 43 mg/dL Normal [facility] Comment on above: Result Comment: The drugs N-Acetylcysteine and Metamizole may falselydepress this assay. Reference Range HDL <40 mg/dL Low HDL Cholesterol HDL >or= 60 mg/dL High HDL Cholesterol Performed By: #### L 500.4100, L501.9520, L506.1000, L100.0100, L500.4050 ####[facility] [address] [place], [address] Cholesterol in LDL [Mass/Vol] 138 mg/dL High 0-130 [facility] Comment on above: Performed By: #### L 500.4100, L501.9520, L506.1000, L100.0100, L500.4050 ####[facility] [address] [place], [address] Cholesterol in VLDL [Mass/Vol] 46 mg/dL High 5-40 [facility] Comment on above: Performed By: #### L 500.4100, L501.9520, L506.1000, L100.0100, L500.4050 ####[facility] [address] [place], [address] Triglyceride [Mass/Vol] 230 mg/dL High [facility] Comment on above: Result Comment: The drugs N-Acetylcysteine and Metamizole may falselydepress this assay.Serum Triglycerides Reference Interval Normal <150 mg/dL Borderline high 150 - 199 mg/dL High 200 - 499 mg/dL Very High > or = 500 mg/dL Performed By: #### L 500.4100, L501.9520, L506.1000, L100.0100, L500.4050 ####[facility] [address] [place], [address] Thyroid Stim Hormone (TSH)on 03-10-2024 TSH 0.922 uIU/mL Normal 0.358-3.740 [facility] Comment on above: Performed By: #### L 500.4100, L501.9520, L506.1000, L100.0100, L500.4050 ####[facility] [address] [place], [address] Vitamin D,25 Hydroxyon 03-10 Vitamin D 25-OH 59.3 ng/mL Normal [facility] Comment on above: Result Comment: Luda min D 25(OH) Status Range Deficiency <20 ng/mL (50nmol/L) Insufficiency 20 - 30 ng/mL (50 - 75 nmol/L) Sufficiency 30 - 100 ng/mL (75 - 250 nmol/L) Toxicity >100 ng/mL (>250 nmol/L) Performed By: #### L 500.4100, L501.9520, L506.1000, L100.0100, L500.4050 ####[facility] [address] [place], [address] L/S Spine Min 4 Viewson 02-09 L/S Spine Min 4 Views Normal [facility] Orthopedic Visit Reporton Orthopedic Visit Report Normal [facility] Surgery Visit Reporton 02-22 Surgery Visit Report Normal [facility] Absolute lymphocyte countOrd ered By: Ed Bowman on 09-06-2023 Lymphocytes Auto (Unsp spec) [#/Vol] 1.38 10*3/uL 0.83-4.51 [facility] Basophil percentageOrdered B y: Ed Bowman on 09-06-2023 Basophil percentage Not Reportable [facility] Bilirubin [Mass/Vol] 0.70 mg/dL 0.20-1.[address] [facility] Comment on above: For patients on eltr ombopag therapy, use of Dimension [place] TBIL is not recommended. Chloride [Moles/Vol] 106 mmol/L 98-[address] [facility] Glucose [Mass/Vol] 168 mg/dL 74-106 [facility] Comment on above: Fasting Glucose resu lt greater than or equal to 126 mg/dL suggests DIABETES MELLITUS per A.D.A. criteria. Hemoglobin (Bld) [Mass/Vol] 15.3 g/dL 12.0-15.0 [facility] Neutrophils (Bld) [#/Vol] 9.9 10*3/uL 2.0-7.7 [facility] Potassium [Moles/Vol] 3.9 mmol/L 3.5-5.1 [facility] Protein [Mass/Vol] 7.7 g/dL 6.4-8.2 [facility] Sodium [Moles/Vol] 140 mmol/L 136-145 [facility] WBC (Bld) [#/Vol] 11.5 10*3/uL 4.4-11.0 [facility] Blood band neutrophil count as percentage of total leukocytesOrdered By: Ed Bowman on 09-06-2023 Band form neutrophils/100 WBC (Bld) 3 % 0-5 [facility] Blood lymphocytes/100 leukoc ytesOrdered By: Ed Bowman on 09-06-2023 Lymphocytes/100 WBC (Bld) 12 % 19-41 [facility] Blood monocytes/100 leukocyt esOrdered By: Ed Bowman on 09-06-2023 Monocytes/100 WBC (Bld) 1 % 0-10 [facility] Blood platelet adequacy dete ction by light microscopyOrdered By: Ed Bowman on 09-06-2023 Platelets LM Ql (Bld) ADEQUATE ADEQ [facility] Blood segmented neutrophils/ 100 leukocytesOrdered By: Ed Bowman on 09-06-2023 Segmented neutrophils/100 WBC (Bld) 83 % 47-70 [facility] Determination of erythrocyte mean corpuscular volume (MCV)Ordered By: Ed Bowman on 09-06-2023 MCV (RBC) [Entitic vol] 90.9 fL 81-99 [facility] Erythrocyte distribution wid th ratioOrdered By: Ed Bowman on 09-06-2023 Erythrocyte distribution width (RBC) [Ratio] 14.2 % 11.6-14.6 [facility] Erythrocyte distribution wid th standard deviationOrdered By: Ed Bowman on 09-06-2023 Erythrocyte distribution width (RBC) [Entitic vol] 47.3 fL 35.1-43.9 [facility] Hematocrit Auto (Bld) [Volum e fraction]Ordered By: Ed Bowman on 09-06-2023 Hematocrit (Bld) [Volume fraction] 47.9 % 37-47 [facility] Laboratory - Chemistry and C hemistry - challengeOrdered By: Ed Bowman 09-06-2023 Albumin/Globulin [Mass ratio] 1.1 {ratio} 0.9-2.4 [facility] ALP [Catalytic activity/Vol] 106 U/L 45-117 [facility] ALT [Catalytic activity/Vol] 22 U/L 13-56 [facility] CO2 [Moles/Vol] 26.0 mmol/L 21.0-32.0 [facility] Globulin (S) [Mass/Vol] 3.7 g/dL 2.2-4.2 [facility] Urea nitrogen/Creatinine [Mass ratio] 31.0 mg/mg 10-20 [facility] Laboratory - Hematology and Cell countsOrdered By: Ed Bowman 09-06-2023 MCH (RBC) [Entitic mass] 29.0 pg 27.0-32.0 [facility] MCHC (RBC) [Mass/Vol] 31.9 g/dL 32-36 [facility] Myelocytes/100 WBC (Bld) 1 % 0-0 [facility] Platelet mean volume (Bld) [Entitic vol] 9.0 fL 6.2-12.0 [facility] Platelets (Bld) [#/Vol] 406 10*3/uL 150-450 [facility] No Panel InformationOrdered By: Ed Bowman on 09-06-2023 Estimated GFR (MDRD) Amer 53 mL/min >60 [facility] Comment on above: GFR Calc Estimated GFR (MDRD) Non-Af Amer 44 mL/min >60 [facility] Comment on above: Non- GFR Calc Vitamin D 25-Hydroxy 35.4 ng/mL [facility] Comment on above: Vitamin D 25(OH) Sta tus Range Deficiency <20 ng/mL (50nmol/L) Insufficiency 20 - 30 ng/mL (50 - 75 nmol/L) Sufficiency 30 - 100 ng/mL (75 - 250 nmol/L) Toxicity >100 ng/mL (>250 nmol/L) RBC Auto (Bld) [#/Vol]Ordere d By: Ed Bowman on 09-06-2023 RBC (Bld) [#/Vol] 5.27 10*6/uL 4.2-5.4 [facility] RBC morphologyOrdered By: Mihir Bowman on 09-06-2023 RBC morphology finding Nom (Bld) NORM C+C NORMAL NORM C&C [facility] Review by pathologistOrdered By: Ed Bowman on 09-06-2023 Pathologist review Froilan (Unsp spec) [Interp] Reviewed [facility] Comment on above: Previous reported re sult: November foll Edited by: RGOCHON on 09/07/23:1319Neutrophilic leukocytosis with left shift.Clinical correlation necessary.Beto Green M.D. 09/07/23 AMENDED REPORT 09/07/23 1319 PATH REV previously reported as: November foll Serum or plasma calcium raine urement (mass/volume)Ordered By: Ed Bowman on 09-06-2023 Calcium [Mass/Vol] 9.3 mg/dL 8.5-10.1 [facility] Serum or plasma creatinine m easurement (mass/volume)Ordered By: Ed Bowman on 09-06-2023 Creatinine [Mass/Vol] 1.26 mg/dL 0.55-1.02 [facility] Comment on above: The validity of the calculated GFR & GFRAA in patients over 70 years has not been determined. Clinical correlation is essential. Serum or plasma thyroid stim ulating hormone (TSH) measurement (units/volume)Ordered By: Ed Bowman on 09-06-2023 TSH Qn 0.45 uIU/mL 0.358-3.74 [facility] Serum or plasma urea nitroge n measurement (mass/volume)Ordered By: Ed Bowman on 09-06-2023 Urea nitrogen [Mass/Vol] 39 mg/dL 7-18 [facility] Thin prep Papanicolaou smear with manual screeningOrdered By: Ed Bowman on 09-06-2023 Thin prep Papanicolaou smear with manual screening 4.0 g/dL 3.2-5.0 [facility] Thin prep Papanicolaou smear with manual screening 18 U/L 15-37 [facility] Thin prep Papanicolaou smear with manual screening 8 5-15 [facility] Total cell countOrdered By: Ed Bowman on 09-06-2023 Cells counted [employer] (Bld/Tiss) [#] 100 MANUAL DIFF [facility] Absolute lymphocyte countOrd ered By: Ed Bowman on 03-08-2023 Lymphocytes Auto (Unsp spec) [#/Vol] 2.55 10*3/uL 0.83-4.51 [facility] Basophil percentageOrdered B y: Ed Bowman on 03-08-2023 Basophils/100 WBC (Bld) 0.6 % 0-1 [facility] Bilirubin [Mass/Vol] 0.30 mg/dL 0.20-1.[address] [facility] Comment on above: For patients on eltr ombopag therapy, use of Dimension [place] TBIL is not recommended. Chloride [Moles/Vol] 107 mmol/L 98-[address] [facility] Eosinophils/100 WBC (Bld) 1.0 % 0-5 [facility] Glucose [Mass/Vol] 123 mg/dL 74-106 [facility] Comment on above: Fasting Glucose resu lt from 100 to 125 mg/dL suggests IMPAIRED HOMEOSTASIS per A.D.A. criteria. Neutrophils (Bld) [#/Vol] 6.4 10*3/uL 2.0-7.7 [facility] Neutrophils/100 WBC (Bld) 62.7 % 47-70 [facility] Potassium [Moles/Vol] 4.7 mmol/L 3.5-5.1 [facility] Protein [Mass/Vol] 7.5 g/dL 6.4-8.2 [facility] Sodium [Moles/Vol] 141 mmol/L 136-145 [facility] WBC (Bld) [#/Vol] 10.2 10*3/uL 4.4-11.0 [facility] Blood erythrocytes count (nu mber/volume)Ordered By: Ed Bowman on 03-08-2023 RBC (Bld) [#/Vol] 4.85 10*6/uL 4.2-5.4 [facility] Blood hemoglobin measurement (mass/volume)Ordered By: Ed Bowman on 03-08-2023 Hemoglobin (Bld) [Mass/Vol] 14.6 g/dL 12.0-15.0 [facility] Blood lymphocytes/100 leukoc ytesOrdered By: Ed Bowman on 03-08-2023 Lymphocytes/100 WBC (Bld) 24.9 % 19-41 [facility] Blood monocytes/100 leukocyt esOrdered By: Ed Bowman on 03-08-2023 Monocytes/100 WBC (Bld) 9.6 % 0-10 [facility] Blood platelet mean volumeOr dered By: Ed Bowman on 03-08-2023 Platelet mean volume (Bld) [Entitic vol] 9.3 fL 6.2-12.0 [facility] Determination of erythrocyte mean corpuscular volume (MCV)Ordered By: Ed Bowman on 03-08-2023 MCV (RBC) [Entitic vol] 94.2 fL 81-99 [facility] Hematocrit Auto (Bld) [Volum e fraction]Ordered By: Ed Bowman on 03-08-2023 Hematocrit (Bld) [Volume fraction] 45.7 % 37-47 [facility] Laboratory - Chemistry and C hemistry - challengeOrdered By: Ed Bowman on 03-08-2023 ALP [Catalytic activity/Vol] 103 U/L 45-117 [facility] ALT [Catalytic activity/Vol] 25 U/L 13-56 [facility] CO2 [Moles/Vol] 29.0 mmol/L 21.0-32.0 [facility] Globulin (S) [Mass/Vol] 4.1 g/dL 2.2-4.2 [facility] Urea nitrogen/Creatinine [Mass ratio] 22.4 mg/mg 10-20 [facility] Laboratory - Hematology and Cell countsOrdered By: Ed Bowman on 03-08-2023 Erythrocyte distribution width (RBC) [Entitic vol] 48.7 fL 35.1-43.9 [facility] Erythrocyte distribution width (RBC) [Ratio] 14.0 % 11.6-14.6 [facility] Immature granulocytes/100 WBC (Bld) 1.200 % 0.0-0.9 [facility] Comment on above: IG% - Immature Granu locytes (promyelocytes, myelocytes and metamyelocytes) > 1% indicates that a LEFT SHIFT is Present. MCH (RBC) [Entitic mass] 30.1 pg 27.0-32.0 [facility] Nucleated RBC/100 WBC (Bld) [Ratio] 0 % 0-5 [facility] MCHC Auto (RBC) [Mass/Vol]Or dered By: Ed Bowman on 03-08-2023 MCHC (RBC) [Mass/Vol] 31.9 g/dL 32-36 [facility] No Panel InformationOrdered By: dE Bowman on 03-08-2023 Estimated GFR (MDRD) Amer 64 mL/min >60 [facility] Comment on above: GFR Calc Estimated GFR (MDRD) Non-Af Amer 53 mL/min >60 [facility] Comment on above: Non- GFR Calc Thyroid Stimulating Hormone (TSH) 1.58 uIU/mL 0.358-3.74 [facility] Vitamin D 25-Hydroxy 40.6 ng/mL [facility] Comment on above: Vitamin D 25(OH) Sta tus Range Deficiency <20 ng/mL (50nmol/L) Insufficiency 20 - 30 ng/mL (50 - 75 nmol/L) Sufficiency 30 - 100 ng/mL (75 - 250 nmol/L) Toxicity >100 ng/mL (>250 nmol/L) Platelets bldOrdered By: Ed Bowman on 03-08-2023 Platelets (Bld) [#/Vol] 322 10*3/uL 150-450 [facility] Serum or plasma albumin raine urement (mass/volume)Ordered By: Ed Bowman on 03-08-2023 Albumin [Mass/Vol] 3.4 g/dL 3.2-5.0 [facility] Serum or plasma albumin/glob ulin mass ratioOrdered By: Ed Bowman on 03-08-2023 Albumin/Globulin [Mass ratio] 0.8 {ratio} 0.9-2.4 [facility] Serum or plasma calcium raine urement (mass/volume)Ordered By: dE Bowman on 03-08-2023 Calcium [Mass/Vol] 9.4 mg/dL 8.5-10.1 [facility] Serum or plasma creatinine m easurement (mass/volume)Ordered By: Ed Bowman on 03-08-2023 Creatinine [Mass/Vol] 1.07 mg/dL 0.55-1.02 [facility] Comment on above: The validity of the calculated GFR & GFRAA in patients over 70 years has not been determined. Clinical correlation is essential. Serum or plasma urea nitroge n measurement (mass/volume)Ordered By: Ed Bowman on 03-08-2023 Urea nitrogen [Mass/Vol] 24 mg/dL 7-18 [facility] Thin prep Papanicolaou smear with manual screeningOrdered By: Ed Bowman on 03-08-2023 Thin prep Papanicolaou smear with manual screening 16 U/L 15-37 [facility] Thin prep Papanicolaou smear with manual screening 5 5-15 [facility] No Panel InformationOrdered By: Kale Wallace on 01-28-2023 Miscellaneous Test See comment [facility] Comment on above: TEST RESULTS [...] developed and its performance characteristics determined by [employer]. It has not been cleared or approved [...] Confirmation threshold: 1.0 ng/mL TESTING PERFORMED AT [employer]. ORIGINAL REPORT ON FILE IN LAB CONTAINS ADDITIONAL TEST SITE INFORMATION. COVID-19 virus antigen assay Ordered By: Dr. Bowman on 09-01-2022 SARS-CoV-2 (COVID-19) Ag IA.rapid Ql (Resp) Not detected Not Detect [facility] Comment on above: Normal Reference Ran ge: [...] 09-01-2022 Influenza Types A,B Direct FA (TEETEE) [facility] RSV Ag EIAOrdered By: Dr. Danis marion on 09-01-2022 RSV Ag Immune stain Ql (Tiss) [facility] Absolute lymphocyte countOrd ered By: Ed Bowman on 08-31-2022 Lymphocytes Auto (Unsp spec) [#/Vol] 3.62 10*3/uL 0.83-4.51 [facility] Basophil percentageOrdered B y: Ed Bowman on 08-31-2022 Basophils/100 WBC (Bld) 0.5 % 0-1 [facility] Bilirubin [Mass/Vol] 0.50 mg/dL 0.20-1.[address] [facility] Comment on above: For patients on eltr ombopag therapy, use of Dimension [place] TBIL is not recommended. Chloride [Moles/Vol] 105 mmol/L 98-[address] [facility] Eosinophils/100 WBC (Bld) 0.5 % 0-5 [facility] Glucose [Mass/Vol] 51 mg/dL 74-106 [facility] Neutrophils (Bld) [#/Vol] 7.0 10*3/uL 2.0-7.7 [facility] Neutrophils/100 WBC (Bld) 58.4 % 47-70 [facility] Potassium [Moles/Vol] 3.5 mmol/L 3.5-5.1 [facility] Protein [Mass/Vol] 8.1 g/dL 6.4-8.2 [facility] Sodium [Moles/Vol] 143 mmol/L 136-145 [facility] WBC (Bld) [#/Vol] 11.9 10*3/uL 4.4-11.0 [facility] Blood erythrocytes count (nu mber/volume)Ordered By: Ed Bowman on 08-31-2022 RBC (Bld) [#/Vol] 5.34 10*6/uL 4.2-5.4 [facility] Blood hemoglobin measurement (mass/volume)Ordered By: Ed Bowman on 08-31-2022 Hemoglobin (Bld) [Mass/Vol] 16.2 g/dL 12.0-15.0 [facility] Blood lymphocytes/100 leukoc ytesOrdered By: Ed Bowman on 08-31-2022 Lymphocytes/100 WBC (Bld) 30.4 % 19-41 [facility] Blood monocytes/100 leukocyt esOrdered By: Ed Bowman on 08-31-2022 Monocytes/100 WBC (Bld) 9.3 % 0-10 [facility] Blood platelet mean volumeOr dered By: Ed Bowman on 08-31-2022 Platelet mean volume (Bld) [Entitic vol] 9.3 fL 6.2-12.0 [facility] Determination of erythrocyte mean corpuscular volume (MCV)Ordered By: Ed Bowman on 08-31-2022 MCV (RBC) [Entitic vol] 91.9 fL 81-99 [facility] Hematocrit Auto (Bld) [Volum e fraction]Ordered By: Ed Bowman on 08-31-2022 Hematocrit (Bld) [Volume fraction] 49.1 % 37-47 [facility] Laboratory - Chemistry and C hemistry - challengeOrdered By: Ed Bowman on 08-31-2022 ALP [Catalytic activity/Vol] 100 U/L 45-117 [facility] ALT [Catalytic activity/Vol] 26 U/L 13-56 [facility] CO2 [Moles/Vol] 30.0 mmol/L 21.0-32.0 [facility] Globulin (S) [Mass/Vol] 4.2 g/dL 2.2-4.2 [facility] Urea nitrogen/Creatinine [Mass ratio] 18.2 mg/mg 10-20 [facility] Laboratory - Hematology and Cell countsOrdered By: Ed Bowman on 08-31-2022 Erythrocyte distribution width (RBC) [Entitic vol] 46.0 fL 35.1-43.9 [facility] Erythrocyte distribution width (RBC) [Ratio] 13.6 % 11.6-14.6 [facility] Immature granulocytes/100 WBC (Bld) 0.900 % 0.0-0.9 [facility] Comment on above: IG% - Immature Granu locytes (promyelocytes, myelocytes and metamyelocytes) > 1% indicates that a LEFT SHIFT is Present. MCH (RBC) [Entitic mass] 30.3 pg 27.0-32.0 [facility] Nucleated RBC/100 WBC (Bld) [Ratio] 0 % 0-5 [facility] MCHC Auto (RBC) [Mass/Vol]Or dered By: Ed Bowman on 08-31-2022 MCHC (RBC) [Mass/Vol] 33.0 g/dL 32-36 [facility] No Panel InformationOrdered By: Ed Bowman on 08-31-2022 Estimated GFR (MDRD) Amer 51 mL/min >60 [facility] Comment on above: GFR Calc Estimated GFR (MDRD) Non-Af Amer 42 mL/min >60 [facility] Comment on above: Non- GFR Calc Thyroid Stimulating Hormone (TSH) 1.38 uIU/mL 0.358-3.74 [facility] Vitamin D 25-Hydroxy 29.8 ng/mL [facility] Comment on above: Vitamin D 25(OH) Sta tus Range Deficiency <20 ng/mL (50nmol/L) Insufficiency 20 - 30 ng/mL (50 - 75 nmol/L) Sufficiency 30 - 100 ng/mL (75 - 250 nmol/L) Toxicity >100 ng/mL (>250 nmol/L) Platelets bldOrdered By: Ed Bowman on 08-31-2022 Platelets (Bld) [#/Vol] 370 10*3/uL 150-450 [facility] Serum or plasma albumin raine urement (mass/volume)Ordered By: Ed Bowman on 08-31-2022 Albumin [Mass/Vol] 3.9 g/dL 3.2-5.0 [facility] Serum or plasma albumin/glob ulin mass ratioOrdered By: Ed Colby on 08-31-2022 Albumin/Globulin [Mass ratio] 0.9 {ratio} 0.9-2.4 [facility] Serum or plasma calcium raine urement (mass/volume)Ordered By: Ed Bowman on 08-31-2022 Calcium [Mass/Vol] 9.7 mg/dL 8.5-10.1 [facility] Serum or plasma creatinine m easurement (mass/volume)Ordered By: Ed Bowman on 08-31-2022 Creatinine [Mass/Vol] 1.32 mg/dL 0.55-1.02 [facility] Comment on above: The validity of the calculated GFR & GFRAA in patients over 70 years has not been determined. Clinical correlation is essential. Serum or plasma urea nitroge n measurement (mass/volume)Ordered By: Ed Bowman on 08-31-2022 Urea nitrogen [Mass/Vol] 24 mg/dL 7-18 [facility] Thin prep Papanicolaou smear with manual screeningOrdered By: Ed Bowman on 08-31-2022 Thin prep Papanicolaou smear with manual screening 22 U/L 15-37 [facility] Thin prep Papanicolaou smear with manual screening 8 5-15 [facility] Absolute lymphocyte counton 03-02-2022 Lymphocytes Auto (Unsp spec) [#/Vol] 3.38 10*3/uL 0.83-4.51 [facility] Work Phone: Basophil percentageon 2021 Basophils/100 WBC (Bld) 0.4 % 0-1 [facility] Work Phone: Bilirubin [Mass/Vol] 0.20 mg/dL 0.20-1.[address] [facility] Work Phone: Comment on above: For patients on eltr ombopag therapy, use of Dimension [place] TBIL is not recommended. Chloride [Moles/Vol] 106 mmol/L 98-[address] [facility] Work Phone: Eosinophils/100 WBC (Bld) 1.2 % 0-5 [facility] Work Phone: [phone] Glucose [Mass/Vol] 99 mg/dL 74-106 [facility] Work Phone: Neutrophils (Bld) [#/Vol] 6.4 10*3/uL 2.0-7.7 [facility] Work Phone: [phone] Neutrophils/100 WBC (Bld) 58.9 % 47-70 [facility] Work Phone: [phone] Potassium [Moles/Vol] 4.2 mmol/L 3.5-5.1 [facility] Work Phone: Protein [Mass/Vol] 7.3 g/dL 6.4-8.2 [facility] Work Phone: Sodium [Moles/Vol] 142 mmol/L 136-145 [facility] Work Phone: [phone] WBC (Bld) [#/Vol] 10.9 10*3/uL 4.4-11.0 [facility] Work Phone: Blood erythrocytes count (nu mber/volume)on 03-02-2022 RBC (Bld) [#/Vol] 4.84 10*6/uL 4.2-5.4 [facility] Work Phone: Blood hemoglobin measurement (mass/volume)on 03-02-2022 Hemoglobin (Bld) [Mass/Vol] 14.5 g/dL 12.0-15.0 [facility] Work Phone: [phone] Blood lymphocytes/100 leukoc yteson 03-02-2022 Lymphocytes/100 WBC (Bld) 31.1 % 19-41 [facility] Work Phone: Blood monocytes/100 leukocyt eson 03-02-2022 Monocytes/100 WBC (Bld) 7.9 % 0-10 [facility] Work Phone: Blood platelet mean volumeon 03-02-2022 Platelet mean volume (Bld) [Entitic vol] 9.6 fL 6.2-12.0 [facility] Work Phone: Determination of erythrocyte mean corpuscular volume (MCV)on 03-02-2022 MCV (RBC) [Entitic vol] 90.5 fL 81-99 [facility] Work Phone: Hematocrit Auto (Bld) [Volum e fraction]on 03-02-2022 Hematocrit (Bld) [Volume fraction] 43.8 % 37-47 [facility] Work Phone: Laboratory - Chemistry and C hemistry - challengeon 03-02-2022 ALP [Catalytic activity/Vol] 103 U/L 45-117 [facility] Work Phone: ALT [Catalytic activity/Vol] 22 U/L 13-56 [facility] Work Phone: CO2 [Moles/Vol] 30.0 mmol/L 21.0-32.0 [facility] Work Phone: Globulin (S) [Mass/Vol] 3.8 g/dL 2.2-4.2 [facility] Work Phone: Urea nitrogen/Creatinine [Mass ratio] 24.5 mg/mg 10-20 [facility] Work Phone: Laboratory - Hematology and Cell countson 03-02-2022 Erythrocyte distribution width (RBC) [Entitic vol] 45.1 fL 35.1-43.9 [facility] Work Phone: Erythrocyte distribution width (RBC) [Ratio] 13.7 % 11.6-14.6 [facility] Work Phone: Immature granulocytes/100 WBC (Bld) 0.500 % 0.0-0.9 [facility] Work Phone: Comment on above: IG% - Immature Granu locytes (promyelocytes, myelocytes and metamyelocytes) > 1% indicates that a LEFT SHIFT is Present. MCH (RBC) [Entitic mass] 30.0 pg 27.0-32.0 [facility] Work Phone: Nucleated RBC/100 WBC (Bld) [Ratio] 0 % 0-5 [facility] Work Phone: MCHC Auto (RBC) [Mass/Vol]on 03-02-2022 MCHC (RBC) [Mass/Vol] 33.1 g/dL 32-36 [facility] Work Phone: No Panel Informationon 03-02 Estimated GFR (MDRD) Amer 65 mL/min >60 [facility] Work Phone: Comment on above: GFR Calc Estimated GFR (MDRD) Non-Af Amer 54 mL/min >60 [facility] Work Phone: Comment on above: Non- GFR Calc Thyroid Stimulating Hormone (TSH) 1.20 uIU/mL 0.358-3.74 [facility] Work Phone: Vitamin D 25-Hydroxy 18.7 ng/mL [facility] Work Phone: Comment on above: Vitamin D 25(OH) Sta tus Range Deficiency <20 ng/mL (50nmol/L) Insufficiency 20 - 30 ng/mL (50 - 75 nmol/L) Sufficiency 30 - 100 ng/mL (75 - 250 nmol/L) Toxicity >100 ng/mL (>250 nmol/L) Platelets bldon 03-02-2022 Platelets (Bld) [#/Vol] 287 10*3/uL 150-450 [facility] Work Phone: Serum or plasma albumin raine urement (mass/volume)on 03-02-2022 Albumin [Mass/Vol] 3.5 g/dL 3.2-5.0 [facility] Work Phone: Serum or plasma albumin/glob ulin mass ratioon 03-02-2022 Albumin/Globulin [Mass ratio] 0.9 {ratio} 0.9-2.4 [facility] Work Phone: Serum or plasma calcium raine urement (mass/volume)on 03-02-2022 Calcium [Mass/Vol] 8.6 mg/dL 8.5-10.1 [facility] Work Phone: Serum or plasma creatinine m easurement (mass/volume)on 03-02-2022 Creatinine [Mass/Vol] 1.06 mg/dL 0.55-1.02 [facility] Work Phone: Comment on above: The validity of the calculated GFR & GFRAA in patients over 70 years has not been determined. Clinical correlation is essential. Serum or plasma urea nitroge n measurement (mass/volume)on 03-02-2022 Urea nitrogen [Mass/Vol] 26 mg/dL 7-18 [facility] Work Phone: Thin prep Papanicolaou smear with manual screeningon 03-02-2022 Thin prep Papanicolaou smear with manual screening 19 U/L 15-37 [facility] Work Phone: Thin prep Papanicolaou smear with manual screening 6 5-15 [facility] Work Phone: Absolute lymphocyte counton 11-12-2021 Lymphocytes Auto (Unsp spec) [#/Vol] 2.27 10*3/uL 0.83-4.51 [facility] Work Phone: Basophil percentageon 2021 Basophils/100 WBC (Bld) 0.5 % 0-1 [facility] Work Phone: Bilirubin [Mass/Vol] 0.40 mg/dL 0.20-1.[address] [facility] Work Phone: Comment on above: For patients on eltr ombopag therapy, use of Dimension [place] TBIL is not recommended. Chloride [Moles/Vol] 109 mmol/L 98-[address] [facility] Work Phone: Eosinophils/100 WBC (Bld) 1.6 % 0-5 [facility] Work Phone: Glucose [Mass/Vol] 107 mg/dL 74-106 [facility] Work Phone: Comment on above: Fasting Glucose resu lt from 100 to 125 mg/dL suggests IMPAIRED HOMEOSTASIS per A.D.A. criteria. Neutrophils (Bld) [#/Vol] 6.9 10*3/uL 2.0-7.7 [facility] Work Phone: Neutrophils/100 WBC (Bld) 66.6 % 47-70 [facility] Work Phone: Potassium [Moles/Vol] 4.7 mmol/L 3.5-5.1 [facility] Work Phone: Protein [Mass/Vol] 7.7 g/dL 6.4-8.2 [facility] Work Phone: Sodium [Moles/Vol] 142 mmol/L 136-145 [facility] Work Phone: WBC (Bld) [#/Vol] 10.4 10*3/uL 4[facility]4-11.0 [facility]: Blood erythrocytes count (nu mber/volume)on 11-12-2021 RBC (Bld) [#/Vol] 5.07 10*6/uL 4.2-5.4 [facility] Work Phone: Blood hemoglobin measurement (mass/volume)on 11-12-2021 Hemoglobin (Bld) [Mass/Vol] 14.9 g/dL 12.0-15.0 [facility] Work Phone: Blood lymphocytes/100 leukoc yteson 11-12-2021 Lymphocytes/100 WBC (Bld) 21.8 % 19-41 [facility] Work Phone: Blood monocytes/100 leukocyt eson 11-12-2021 Monocytes/100 WBC (Bld) 8.5 % 0-10 [facility] Work Phone: Blood platelet mean volumeon 11-12-2021 Platelet mean volume (Bld) [Entitic vol] 9.7 fL 6.2-12.0 [facility] Work Phone: Determination of erythrocyte mean corpuscular volume (MCV)on 11-12-2021 MCV (RBC) [Entitic vol] 89.3 fL 81-99 [facility] Work Phone: Hematocrit Auto (Bld) [Volum e fraction]on 11-12-2021 Hematocrit (Bld) [Volume fraction] 45.3 % 37-47 [facility] Work Phone: Laboratory - Chemistry and C hemistry - challengeon 11-12-2021 ALP [Catalytic activity/Vol] 110 U/L 45-117 [facility] Work Phone: ALT [Catalytic activity/Vol] 26 U/L 13-56 [facility] Work Phone: CO2 [Moles/Vol] 27.0 mmol/L 21.0-32.0 [facility] Work Phone: Globulin (S) [Mass/Vol] 4.4 g/dL 2.2-4.2 [facility] Work Phone: Urea nitrogen/Creatinine [Mass ratio] 16.9 mg/mg 10-20 [facility] Work Phone: Laboratory - Hematology and Cell countson 11-12-2021 Erythrocyte distribution width (RBC) [Entitic vol] 45.0 fL 35.1-43.9 [facility] Work Phone: Erythrocyte distribution width (RBC) [Ratio] 13.8 % 11.6-14.6 [facility] Work Phone: Immature granulocytes/100 WBC (Bld) 1.000 % 0.0-0.9 [facility] Work Phone: Comment on above: IG% - Immature Granu locytes (promyelocytes, myelocytes and metamyelocytes) > 1% indicates that a LEFT SHIFT is Present. MCH (RBC) [Entitic mass] 29.4 pg 27.0-32.0 [facility] Work Phone: Nucleated RBC/100 WBC (Bld) [Ratio] 0 % 0-5 [facility] Work Phone: MCHC Auto (RBC) [Mass/Vol]on 11-12-2021 MCHC (RBC) [Mass/Vol] 32.9 g/dL 32-36 [facility] Work Phone: No Panel Informationon 11-12 Estimated GFR (MDRD) Amer 74 mL/min >60 [facility] Work Phone: Comment on above: GFR Calc Estimated GFR (MDRD) Non-Af Amer 61 mL/min >60 [facility] Work Phone: Comment on above: Non- GFR Calc Thyroid Stimulating Hormone (TSH) 1.05 uIU/mL 0.358-3.74 [facility] Work Phone: Vitamin D 25-Hydroxy 32.0 ng/mL [facility] Work Phone: Comment on above: Vitamin D 25(OH) Sta tus Range Deficiency <20 ng/mL (50nmol/L) Insufficiency 20 - 30 ng/mL (50 - 75 nmol/L) Sufficiency 30 - 100 ng/mL (75 - 250 nmol/L) Toxicity >100 ng/mL (>250 nmol/L) Platelets bldon 11-12-2021 Platelets (Bld) [#/Vol] 322 10*3/uL 150-450 [facility] Work Phone: Serum or plasma albumin raine urement (mass/volume)on 11-12-2021 Albumin [Mass/Vol] 3.3 g/dL 3.2-5.0 [facility] Work Phone: Serum or plasma albumin/glob ulin mass ratioon 11-12-2021 Albumin/Globulin [Mass ratio] 0.8 {ratio} 0.9-2.4 [facility] Work Phone: Serum or plasma calcium raine urement (mass/volume)on 11-12-2021 Calcium [Mass/Vol] 9.1 mg/dL 8.5-10.1 [facility] Work Phone: Serum or plasma creatinine m easurement (mass/volume)on 11-12-2021 Creatinine [Mass/Vol] 0.95 mg/dL 0.55-1.02 [facility] Work Phone: Comment on above: The validity of the calculated GFR & GFRAA in patients over 70 years has not been determined. Clinical correlation is essential. Serum or plasma urea nitroge n measurement (mass/volume)on 11-12-2021 Urea nitrogen [Mass/Vol] 16 mg/dL 7-18 [facility] Work Phone: Thin prep Papanicolaou smear with manual screeningon 11-12-2021 Thin prep Papanicolaou smear with manual screening 23 U/L 15-37 [facility] Work Phone: Thin prep Papanicolaou smear with manual screening 6 5-15 [facility] Work Phone: Laboratory - Microbiology an d Antimicrobial susceptibilityon 09-02-2021 SARS-CoV-2 (COVID-19) RNA BARAK+probe Ql (Unsp spec) Not detected Not Detect [facility] Work Phone: Comment on above: Normal Reference [...] 09-02 Influenza Types A,B Direct FA (TEETEE) [facility] Work Phone: Absolute lymphocyte counton 08-11-2021 Lymphocytes Auto (Unsp spec) [#/Vol] 3.13 10*3/uL 0.83-4.51 [facility] Work Phone: Basophil percentageon 2021 Basophils/100 WBC (Bld) 0.7 % 0-1 [facility] Work Phone: Bilirubin [Mass/Vol] 0.50 mg/dL 0.20-1.[address] [facility] Work Phone: Comment on above: For patients on eltr ombopag therapy, use of Dimension [place] TBIL is not recommended. Chloride [Moles/Vol] 109 mmol/L 98-[address] [facility] Work Phone: Eosinophils/100 WBC (Bld) 1.2 % 0-5 [facility] Work Phone: Glucose [Mass/Vol] 105 mg/dL 74-106 [facility] Work Phone: Comment on above: Fasting Glucose resu lt from 100 to 125 mg/dL suggests IMPAIRED HOMEOSTASIS per A.D.A. criteria. Neutrophils (Bld) [#/Vol] 6.8 10*3/uL 2.0-7.7 [facility] Work Phone: Neutrophils/100 WBC (Bld) 60.6 % 47-70 [facility] Work Phone: Potassium [Moles/Vol] 4.4 mmol/L 3.5-5.1 [facility]: Protein [Mass/Vol] 8.2 g/dL 6.4-8.2 [facility] Work Phone: Sodium [Moles/Vol] 140 mmol/L 136-145 [facility] Work Phone: WBC (Bld) [#/Vol] 11.3 10*3/uL 4.4-11.0 [facility] Work Phone: Blood erythrocytes count (nu mber/volume)on 08-11-2021 RBC (Bld) [#/Vol] 5.16 10*6/uL 4.2-5.4 [facility] Work Phone: Blood hemoglobin measurement (mass/volume)on 08-11-2021 Hemoglobin (Bld) [Mass/Vol] 15.0 g/dL 12.0-15.0 [facility] Work Phone: Blood lymphocytes/100 leukoc yteson 08-11-2021 Lymphocytes/100 WBC (Bld) 27.7 % 19-41 [facility] Work Phone: Blood monocytes/100 leukocyt eson 08-11-2021 Monocytes/100 WBC (Bld) 9.0 % 0-10 [facility] Work Phone: Blood platelet mean volumeon 08-11-2021 Platelet mean volume (Bld) [Entitic vol] 9.0 fL 6.2-12.0 [facility] Work Phone: Determination of erythrocyte mean corpuscular volume (MCV)on 08-11-2021 MCV (RBC) [Entitic vol] 90.5 fL 81-99 [facility] Work Phone: Hematocrit Auto (Bld) [Volum e fraction]on 08-11-2021 Hematocrit (Bld) [Volume fraction] 46.7 % 37-47 [facility] Work Phone: Laboratory - Chemistry and C hemistry - challengeon 08-11-2021 ALP [Catalytic activity/Vol] 113 U/L 45-117 [facility] Work Phone: ALT [Catalytic activity/Vol] 26 U/L 13-56 [facility] Work Phone: CO2 [Moles/Vol] 28.0 mmol/L 21.0-32.0 [facility] Work Phone: Globulin (S) [Mass/Vol] 4.6 g/dL 2.2-4.2 [facility] Work Phone: Urea nitrogen/Creatinine [Mass ratio] 17.9 mg/mg 10-20 [facility] Work Phone: Laboratory - Hematology and Cell countson 08-11-2021 Erythrocyte distribution width (RBC) [Entitic vol] 45.3 fL 35.1-43.9 [facility] Work Phone: Erythrocyte distribution width (RBC) [Ratio] 13.5 % 11.6-14.6 [facility] Work Phone: Immature granulocytes/100 WBC (Bld) 0.800 % 0.0-0.9 [facility] Work Phone: Comment on above: IG% - Immature Granu locytes (promyelocytes, myelocytes and metamyelocytes) > 1% indicates that a LEFT SHIFT is Present. MCH (RBC) [Entitic mass] 29.1 pg 27.0-32.0 [facility] Work Phone: Nucleated RBC/100 WBC (Bld) [Ratio] 0 % 0-5 [facility] Work Phone: MCHC Auto (RBC) [Mass/Vol]on 08-11-2021 MCHC (RBC) [Mass/Vol] 32.1 g/dL 32-36 [facility] Work Phone: No Panel Informationon 08-11 Estimated GFR (MDRD) Amer 65 mL/min >60 [facility] Work Phone: Comment on above: GFR Calc Estimated GFR (MDRD) Non-Af Amer 54 mL/min >60 [facility] Work Phone: Comment on above: Non- GFR Calc Thyroid Stimulating Hormone (TSH) 2.21 uIU/mL 0.358-3.74 [facility] Work Phone: Vitamin D 25-Hydroxy 29.6 ng/mL [facility] Work Phone: Comment on above: Vitamin D 25(OH) Sta tus Range Deficiency <20 ng/mL (50nmol/L) Insufficiency 20 - 30 ng/mL (50 - 75 nmol/L) Sufficiency 30 - 100 ng/mL (75 - 250 nmol/L) Toxicity >100 ng/mL (>250 nmol/L) Platelets bldon 08-11-2021 Platelets (Bld) [#/Vol] 295 10*3/uL 150-450 [facility] Work Phone: Serum or plasma albumin raine urement (mass/volume)on 08-11-2021 Albumin [Mass/Vol] 3.6 g/dL 3.2-5.0 [facility] Work Phone: Serum or plasma albumin/glob ulin mass ratioon 08-11-2021 Albumin/Globulin [Mass ratio] 0.8 {ratio} 0.9-2.4 [facility] Work Phone: Serum or plasma calcium raine urement (mass/volume)on 08-11-2021 Calcium [Mass/Vol] 9.0 mg/dL 8.5-10.1 [facility] Work Phone: Serum or plasma creatinine m easurement (mass/volume)on 08-11-2021 Creatinine [Mass/Vol] 1.06 mg/dL 0.55-1.02 [facility] Work Phone: Comment on above: The validity of the calculated GFR & GFRAA in patients over 70 years has not been determined. Clinical correlation is essential. Serum or plasma urea nitroge n measurement (mass/volume)on 08-11-2021 Urea nitrogen [Mass/Vol] 19 mg/dL 7-18 [facility] Work Phone: Thin prep Papanicolaou smear with manual screeningon 08-11-2021 Thin prep Papanicolaou smear with manual screening 24 U/L 15-37 [facility] Work Phone: Thin prep Papanicolaou smear with manual screening 3 5-15 [facility] Work Phone: CNOVon 02-21-2021 CNOV Office Visit (UCWSTR ) HAVENBARBARA ([id number]) 1950 F Date Time Provider Department 02/21/21 11:00 AM [facility] During your visit today, we recorded the following information about you: Temperature Pulse Respiration Blood pressure 98.7 degrees 86/minute 16/minute 128/80 Weight 89.8 kg Pete MelvinDULCE MARIA.[employer]ER 02/21/2021 11:45 AM Signed Subjective HPI Nontoxic appearing female presents urgent care chief complaint left second digit laceration. Duration of symptoms greater than 3 days. 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 okrnikweznl-F3-Mnsolhv ia serr (OSTEO BI-FLEX, 5-LOXIN,) 1,500-400-100 mg-unit-mg tab Take 1 tablet by mouth once daily. LIDOCAINE (PF) 100 MG/ML (10 %) IV Not sure of dose, IV lidocaine infusion once monthly FAMILY HISTORY Problem Relation Age of Onset - Heart Mother [place] - Cancer Father Lung - Heart Sister [place], stents Social History Tobacco Use - Smoking [...] so woun (more content not included)... [facility] Anion gap [Moles/Vol] 8 mmol/L Normal 5-16 [facility] Comment on above: Order Comment: Campu s: M Performed By: #### L 500.33219, L500.74276, L500.16288 #### [facility] [place] [address] Calcium [Mass/Vol] 9.5 mg/dL Normal 8.5-10.5 [facility] Comment on above: Order Comment: Campu s: M Result Comment: NOTE NEW NORMAL RANGE DUE TO REAGENT CHANGE Performed By: #### L 500.46196, L500.81145, L500.71160 #### [facility] [address] [place] [address] Chloride [Moles/Vol] 105 mmol/L Normal 98-107 [facility] Comment on above: Order Comment: Campu s: M Performed By: #### L 500.09525, L500.66621, L500.04746 #### [facility] [place] [address] CO2 [Moles/Vol] 29.0 mmol/L Normal 21-32 [facility] Comment on above: Order Comment: Campu s: M Performed By: #### L 500.27279, L500.04196, L500.98713 #### [facility] [place] [address] Creatinine [Mass/Vol] 1.33 mg/dL High 0.510-0.950 [facility] Comment on above: Order Comment: Campu s: M Result Comment: Clara ents receiving either N-Acetylcysteine (NAC) or Metamizole prior to venipuncture, may have falsely depressed results. Performed By: #### L 500.75898, L500.64328, L500.11112 #### [facility] [address] [place] [address] Glucose [Mass/Vol] 115 mg/dL High 70-100 [facility] Comment on above: Order Comment: Campu s: M Result Comment: 70-1 00- Normal Fasting; 100-125 Impaired Fasting; greater than 126 on more than one result- Diabetes. ADA guidelines. Results may be falsely elevated after the administration of Sulfapyridine. Results may be falsely depressed after the administration of Sulfasalazine. Performed By: #### L 500.39464, L500.38974, L500.32762 #### [facility] [address] [place] [address] Potassium [Moles/Vol] 4.3 mmol/L Normal 3.5-5.1 [facility] Comment on above: Order Comment: Campu s: M Result Comment: Slig ht Hemolysis, Result may be affected. Performed By: #### L 500.68875, L500.31157, L500.74608 #### [facility] [address] [place] [address] Sodium [Moles/Vol] 142 mmol/L Normal 136-145 [facility] Comment on above: Order Comment: Campu s: M Performed By: #### L 500.84235, L500.60599, L500.93298 #### [facility] [address] [place] [address] Urea nitrogen [Mass/Vol] 21 mg/dL Normal 7-26 [facility] Comment on above: Order Comment: Campu s: M Performed By: #### L 500.59027, L500.53770, L500.87289 #### [facility] [address] [place], [place] [id number] Urea nitrogen/Creatinine [Mass ratio] 16 mg/mg Normal 15-24 [facility] Comment on above: Order Comment: Campu s: M Performed By: #### L 500.99337, L500.16881, L500.85910 #### [facility] [address] [place] [address] CBC W/DIFFon 01-03-2021 BASO ABS 0.10 K/CU MM Normal 0-0.2 [facility] Comment on above: Order Comment: Campu s: M Performed By: #### L 200.55989 #### [facility] [address] [place] [address] Basophils/100 WBC (Bld) 0.4 % Normal 0-2 [facility] Comment on above: Order Comment: Campu s: M Performed By: #### L 200.87266 #### [facility] [address] [place] [address] EOS ABS 0.00 K/CU MM Normal 0-0.5 [facility] Comment on above: Order Comment: Campu s: M Performed By: #### L 200.62852 #### [facility] [address] [place] [address] Eosinophils/100 WBC (Bld) 0.1 % Normal 0-5 [facility] Comment on above: Order Comment: Campu s: M Performed By: #### L 200.49048 #### [facility] [address] [place] [address] Erythrocyte distribution width (RBC) [Ratio] 13.7 % Normal 11-14.5 [facility] Comment on above: Order Comment: Campu s: M Performed By: #### L 200.62154 #### [facility] [address] [place] [address] Hematocrit (Bld) [Volume fraction] 44.2 % Normal 35.0-47.0 [facility] Comment on above: Order Comment: Campu s: M Performed By: #### L 200.22230 #### [facility] [address] [place] [address] Hemoglobin (Bld) [Mass/Vol] 14.9 g/dL Normal 11.5-15.5 [facility] Comment on above: Order Comment: Campu s: M Performed By: #### L 200.67867 #### [facility] [address] [place] [address] IMMATR GRAN ABS 0.10 K/CU MM Normal Less than 2 [facility] Comment on above: Order Comment: Campu s: M Performed By: #### L 200.53683 #### [facility] [address] [place] [address] IMMATURE GRAN % 0.8 % Normal Less than 2 [facility] Comment on above: Order Comment: Campu s: M Performed By: #### L 200.75054 #### [facility] [address] [place] [address] LYMPH ABS 1.90 K/CU MM Normal 0.9-4.4 [facility] Comment on above: Order Comment: Campu s: M Performed By: #### L 200.35469 #### [facility] [address] [place] [address] Lymphocytes/100 WBC (Bld) 14.4 % Low 20-40 [facility] Comment on above: Order Comment: Campu s: M Performed By: #### L 200.05286 #### [facility] [address] [place] [address] MCHC (RBC) [Mass/Vol] 33.7 g/dL Normal 32.0-36.0 [facility] Comment on above: Order Comment: Campu s: M Performed By: #### L 200.87227 #### [facility] [address] [place] [address] MCV (RBC) [Entitic vol] 89.1 fL Normal 80.0-99.0 [facility] Comment on above: Order Comment: Campu s: M Performed By: #### L 200.12489 #### [facility] [address] [place] [address] MONO ABS 1.00 K/CU MM Normal 0.1-1.1 [facility] Comment on above: Order Comment: Campu s: M Performed By: #### L 200.74248 #### [facility] [address] [place] [address] Monocytes/100 WBC (Bld) 7.5 % Normal 2-10 M [facility] Comment on above: Order Comment: Campu s: M Performed By: #### L 200.58045 #### [facility] [address] [place] [address] NEUTROPHIL ABS 10.40 K/CU MM High 2.0-8.3 [facility] Comment on above: Order Comment: Campu s: M Performed By: #### L 200.56692 #### [facility] [address] [place] [address] Neutrophils/100 WBC (Bld) 76.8 % High 45-75 [facility] Comment on above: Order Comment: Campu s: M Performed By: #### L 200.11819 #### [facility] [address] [place] [address] Nucleated RBC/100 WBC (Bld) [Ratio] 0.0 % Normal Less than 1 [facility] Comment on above: Order Comment: Campu s: M Performed By: #### L 200.17098 #### [facility] [address] [place] [address] Platelet mean volume (Bld) [Entitic vol] 9.1 fL Low 9.4-12.4 [facility] Comment on above: Order Comment: Campu s: M Performed By: #### L 200.47884 #### [facility] [address] [place] [address] PLT 296 K/CU MM Normal 150-450 [facility] Comment on above: Order Comment: Campu s: M Performed By: #### L 200.45830 #### [facility] [address] [place] [address] RBC 4.96 M/CU MM Normal 3.90-5.30 [facility] Comment on above: Order Comment: Campu s: M Performed By: #### L 200.59492 #### [facility] [address] [place] [address] WBC 13.5 K/CUMM High 4.5-11.0 [facility] Comment on above: Order Comment: Campu s: M Performed By: #### L 200.06506 #### [facility] [address] [place] [address] HEAD/BRAIN W/O CONon 12-11 CT HEAD/BRAIN W/O CON CT HEAD/BRAIN W/O [...] or MRI would be suggested. Dictated by Foreign Banknote Teller Trader: Amie Chaudhry DO I, MD MANUELA Patel, have supervised the procedure and/or image review, and agree with the above interpretation and report. ---- Electronic Signature on File ---- Signed By: Quan Celis MD FACBarbara [email or web address] Dictated: 01/03/2021 2:23 PM Signed: 01/03/2021 2:36 PM Reported By: QUAN CELIS M.D. Signed By: QUAN CELIS M.D. [facility] EKthor 01-03-2021 Electrocardiogram Procedure Date and Time: 01/03/21 [...] MENDIOLA M.D.FACC [employer] DDandT: 01/03/21 1301 TDandT: [facility] PATIENT NAME: JESSICA GLASS [facility] MEDICAL REC #: [id number] [place] [address] ADMIT DATE: DISCHARGE DATE: ATTENDING PHY: Nicholas Catherine,Emergency Physi ELECTROCARDIOGRAM REPORT CLB cc: [facility] PATIENT NAME: JESSICA GLASS [facility] MEDICAL REC #: [id number] [place] [address] ADMIT DATE: DISCHARGE DATE: ATTENDING MARGYY: Nicholas Catherine,Emergency Physi ELECTROCARDIOGRAM REPORT Normal [facility] Jeff 01-03-2021 EMERGENCY PHYSICIAN REPORT This is a preliminary report only, as the practitioner review and authentication has not occurred. Normal [facility] ER PHYSICIAN ASSESSMENT RECORDS : FlexChartData Event Time: 01/03/2021 14:35 Status: Signed [facility] Jessica Glass [[id number]] Attending Physician / / 1950 Chart (V2b) Chart created at 01/03/2021 14:27 by Melvin Herbert Chart closed at 01/03/2021 17:08 Entry in Emergency Department at 01/03/2021 12:42, departure at 01/03/2021 17:16 Patient Name: Jessica Glass Record Number: [id number] Date: 01/03/2021 14:27 Entered Department at: 01/03/2021 [...] weak and lightheaded during this infusion and [facility] PATIENT NAME: JESSICA GLASS [facility] MEDICAL REC #: [id number] [place] [address] EMERGENCY DEPARTMENT REPORT EMERGENCY DEPARTMENT PHYSICIAN ultimately [...] Normal Skin: No Petechiae, Warm and Dry [facility] PATIENT NAME: JESSICA GLASS [facility] MEDICAL REC #: [id number] [place] [address] EMERGENCY DEPARTMENT REPORT EMERGENCY DEPARTMENT PHYSICIAN CBC [...] SGPT (ALT): 17 U/L; TP: 6.8 Gm/Dl [id number], information as of 01/03/2021, 1:01 pm [id number]: Neg Cardiogram: Interpreted by me. Interpretation: Normal sinus rhythm, rate of 66, left axis deviation, delayed R wave progression, no acute ST elevation, QTc 454. No evidence of WPW or Brugada. Comparison: No old Cardiogram available for comparison Monitor / Rhythm Strip: NSR Imaging Study Obtained: CT (HEAD/BRAIN) WO CON (more content not included)... Normal [facility] GFR ESTon 01-03-2021 IF AMER 47 Normal [facility] Comment on above: Order Comment: Campu s: M Performed By: #### L 500.17145, L500.50833, L500.20956 #### [facility] [address] [place] [address] IF non-AFR AMER 39 Normal [facility] Comment on above: Order Comment: Campu s: M Performed By: #### L 500.89402, L500.13253, L500.04818 #### [facility] [address] [place] [address] LIVERon 01-03-2021 Albumin [Mass/Vol] 3.6 g/dL Normal 3.2-5.0 [facility] Comment on above: Order Comment: Campu s: M Performed By: #### L 500.94126, L500.22936, L500.62207 #### [facility] [address] [place] [address] Albumin/Globulin [Mass ratio] 1.1 {ratio} Normal 0.8-2.0 [facility] Comment on above: Order Comment: Campu s: M Performed By: #### L 500.16543, L500.51868, L500.83941 #### [facility] [address] [place] [address] ALK PHOS 102 U/L Normal 45-117 [facility] Comment on above: Order Comment: Campu s: M Performed By: #### L 500.26138, L500.00912, L500.90206 #### [facility] [place] [address] ALT [Catalytic activity/Vol] 17 U/L Normal 13-61 [facility] Comment on above: Order Comment: Campu s: M Result Comment: RESU LTS MAY BE FALSELY DEPRESSED AFTER THE ADMINISTRATION OF SULFASALAZINE AND/OR SULFAPYRIDINE. Performed By: #### L 500.27712, L500.36253, L500.36627 #### [facility] [address] [place] [address] AST [Catalytic activity/Vol] 24 U/L Normal 8-34 [facility] Comment on above: Order Comment: Campu s: M Result Comment: RESU LTS MAY BE FALSELY DEPRESSED AFTER THE ADMINISTRATION OF SULFASALAZINE AND/OR SULFAPYRIDINE. Performed By: #### L 500.02294, L500.81042, L500.61026 #### [facility] [address] [place] [address] BILI DIRECT 0.1 MG/DL Normal 0.00-0.36 [facility] Comment on above: Order Comment: Campu s: M Result Comment: NOTE NEW NORMAL RANGE DUE TO REAGENT CHANGE Performed By: #### L 500.84261, L500.69285, L500.34877 #### [facility] [address] [place] [address] BILI TOTAL 0.40 MG/DL Normal 0.2-1.0 [facility] Comment on above: Order Comment: Campu s: M Performed By: #### L 500.44930, L500.68569, L500.79586 #### [facility] [address] [place] [address] Globulin (S) [Mass/Vol] 3.2 g/dL Normal 2.2-4.2 M [facility] Comment on above: Order Comment: Campu s: M Performed By: #### L 500.67178, L500.60262, L500.28710 #### [facility] [place] [address] Protein [Mass/Vol] 6.8 g/dL Normal 6.0-8.5 [facility] Comment on above: Order Comment: Campu s: M Performed By: #### L 500.72954, L500.16765, L500.48290 #### [place] [address] [id number] 01-03-2021 SARS-CoV-2 (COVID-19) RNA BARAK+probe Ql (Unsp spec) Negative Invalid Interpretation Code Negative [facility] Comment on above: Order Comment: [...] performed by PCR. Performed By: #### L 770.05976 #### [facility] [address] [place], [place] [id number] TROPONIN Ion 01-03-2021 Troponin I.cardiac [Mass/Vol] 2.5 ng/mL Normal 0-34 [facility] Comment on above: Order Comment: Campu s: M Result Comment: NOTE NEW NORMAL RANGE DUE TO REAGENT CHANGE This assay uses different antibodies than our current assay, and assays, even by the same site planner may recognize different regions of the antibody and cannot be used interchangeably. Expect results of this assay to run higher than the previous assay. Performed By: #### L 550.64530 #### [facility] [address] [place] [address] # [id number] Vital Signs Date Time Vital Sign Value Performing Clinician Nadia conroy 03-08-2025 16:47-0400 Body temperature 97.6 [degF] Dr. Ed Bowman MD Work Phone: [facility] 03-08-2025 16:47-0400 Diastolic blood pressure 81 mm[Hg] Dr. Ed Bowman MD Work Phone: 0(047)869-276379 [place] [address] 03-08-2025 16:47-0400 Heart rate 69 /min Dr. Ed Bowman MD Work Phone: 9(459)388-507495 [address] 03-08-2025 16:47-0400 Respiratory rate 14 /min Dr. Ed Bowman MD Work Phone: 3(915)764-625979 [place] [address] 03-08-2025 16:47-0400 SaO2% (BldA) [Mass fraction] 96 % Dr. Ed Bowman MD Work Phone: [facility] 03-08-2025 16:47-0400 Systolic blood pressure 137 mm[Hg] Dr. Ed Bowman MD Work Phone: 1(210)360-911295 [address] 03-08-2025 12:59-0400 Body height 165.[address] Ed Bowman MD Work Phone: 0(622)411-482995 [address] 03-08-2025 12:59-0400 Body mass index (BMI) [Ratio] 32.8 kg/m2 Dr. Ed Bowman MD Work Phone: [facility] 03-08-2025 12:59-0400 Body weight 89.[address] Ed Bowman MD Work Phone: [facility] 02-02-2025 18:32-0400 Body temperature 98.6 [degF] Dr. Ed Bowman MD Work Phone: [facility] 02-02-2025 18:32-0400 Diastolic blood pressure 93 mm[Hg] Dr. Ed Bowman MD Work Phone: [facility] 02-02-2025 18:32-0400 Heart rate 87 /min Dr. Ed Bowman MD Work Phone: [facility] 02-02-2025 18:32-0400 Respiratory rate 24 /min Dr. Ed Bowman MD Work Phone: 8(305)359-717079 [place] [address] 02-02-2025 18:32-0400 SaO2% (BldA) [Mass fraction] 97 % Dr. Ed Bowman MD Work Phone: 3(587)908-393379 [place] [address] 02-02-2025 18:32-0400 Systolic blood pressure 161 mm[Hg] Dr. Ed Bowman MD Work Phone: 5(904)546-563926 [place] [address] 02-02-2025 14:24-0400 Body height 165.[address] Ed Bowman MD Work Phone: 0(872)138-402326 [place] [address] 01-01-2025 14:43-0400 Diastolic blood pressure 88 mm[Hg] Dr. Ed Bowman MD Work Phone: 9(958)962-704026 [place] [address] 01-01-2025 14:43-0400 Heart rate 89 /min Dr. Ed Bowman MD Work Phone: 2(158)441-721226 [place] [address] 01-01-2025 14:43-0400 Respiratory rate 16 /min Dr. Ed Bowman MD Work Phone: 7(774)934-505526 [place] [address] 01-01-2025 14:43-0400 SaO2% (BldA) [Mass fraction] 97 % Dr. Ed Bowman MD Work Phone: 0(469)008-073179 [place] [address] 01-01-2025 14:43-0400 Systolic blood pressure 173 mm[Hg] Dr. Ed Bowman MD Work Phone: 8(365)703-033426 [place] [address] 01-01-2025 13:43-0400 Body height 165.[address] Ed Bowman MD Work Phone: 8(890)706-858626 [place] [address] 01-01-2025 13:43-0400 Body mass index (BMI) [Ratio] 33.4 kg/m2 Dr. Ed Bowman MD Work Phone: 6(003)225-674426 [place] [address] 01-01-2025 13:43-0400 Body temperature 98.2 [degF] Dr. Ed Bowman MD Work Phone: 1(089)525-511126 [place] [address] 01-01-2025 13:43-0400 Body weight 91.[address] Ed Bowman MD Work Phone: 6(747)394-355926 [place] [address] 12-05-2024 09:37-0400 Body temperature 97.4 [degF] Dr. Ed Bowman MD Work Phone: 6(651)305-345426 [place] [address] 12-05-2024 09:37-0400 Diastolic blood pressure 96 mm[Hg] Dr. Ed Bowman MD Work Phone: 1(037)289-260626 [place] [address] 12-05-2024 09:37-0400 Heart rate 88 /min Dr. Ed Bowman MD Work Phone: 1(890)468-616626 [place] [address] 12-05-2024 09:37-0400 Respiratory rate 16 /min Dr. Ed Bowman MD Work Phone: 7(166)881-249326 [place] [address] 12-05-2024 09:37-0400 SaO2% (BldA) [Mass fraction] 95 % Dr. Ed Bowman MD Work Phone: 4(108)742-093726 [place] [address] 12-05-2024 09:37-0400 Systolic blood pressure 166 mm[Hg] Dr. Ed Bowman MD Work Phone: 1(748)036-892926 [place] [address] 12-05-2024 08:32-0400 Body height 165.[address] Ed Bowman MD Work Phone: 8(069)453-030026 [place] [address] 12-05-2024 08:32-0400 Body mass index (BMI) [Ratio] 33.4 kg/m2 Dr. Ed Bowman MD Work Phone: 3(252)154-637426 [place] [address] 12-05-2024 08:32-0400 Body weight 91.[address] Ed Bowman MD Work Phone: 2(659)484-946726 [place] [address] 11-26-2024 16:23-0400 Body temperature 97.7 [degF] Dr. Ed Bowman MD Work Phone: 2(308)851-266026 [place] [address] 11-26-2024 16:23-0400 Diastolic blood pressure 91 mm[Hg] Dr. Ed Bowman MD Work Phone: 5(465)960-799179 [place] [address] 11-26-2024 16:23-0400 Heart rate 89 /min Dr. Ed Bowman MD Work Phone: 5(471)941-998926 [place] [address] 11-26-2024 16:23-0400 Respiratory rate 16 /min Dr. Ed Bowman MD Work Phone: 7(473)109-642426 [place] [address] 11-26-2024 16:23-0400 SaO2% (BldA) [Mass fraction] 95 % Dr. Ed Bowman MD Work Phone: 9(390)982-960126 [place] [address] 11-26-2024 16:23-0400 Systolic blood pressure 132 mm[Hg] Dr. Ed Bowman MD Work Phone: 4(426)263-859826 [place] [address] 11-26-2024 14:14-0400 Body height 165.[address] Ed Bowman MD Work Phone: 0(802)970-020126 [place] [address] 11-20-2024 14:42-0400 Body mass index (BMI) [Ratio] 35.6 kg/m2 Dr. Ed Bowman MD Work Phone: 5(387)197-894126 [place] [address] 11-20-2024 14:42-0400 Body temperature 98.3 [degF] Dr. Ed Bowman MD Work Phone: 9(633)601-376126 [place] [address] 11-20-2024 14:42-0400 Body weight 91.[address] Ed Bowman MD Work Phone: 3(086)904-517226 [place] [address] 11-20-2024 14:42-0400 Diastolic blood pressure 88 mm[Hg] Dr. Ed Bowman MD Work Phone: 5(907)972-311826 [place] [address] 11-20-2024 14:42-0400 Heart rate 93 /min Dr. Ed Bowman MD Work Phone: 9(774)575-625226 [place] [address] 11-20-2024 14:42-0400 Respiratory rate 16 /min Dr. Ed Bowman MD Work Phone: 4(670)308-785326 [place] [address] 11-20-2024 14:42-0400 SaO2% (BldA) [Mass fraction] 93 % Dr. Ed Bowman MD Work Phone: [facility] 11-20-2024 14:42-0400 Systolic blood pressure 147 mm[Hg] Dr. Ed Bowman MD Work Phone: [facility] 11-05-2024 15:21-0400 Diastolic blood pressure 88 mm[Hg] Dr. Ed Bowman MD Work Phone: 6(624)124-046979 [place] [address] 11-05-2024 15:21-0400 Heart rate 80 /min Dr. Ed Bowman MD Work Phone: 2(283)770-389679 [place] [address] 11-05-2024 15:21-0400 Respiratory rate 18 /min Dr. Ed Bowman MD Work Phone: 1(607)874-048626 [place] [address] 11-05-2024 15:21-0400 SaO2% (BldA) [Mass fraction] 95 % Dr. Ed Bowman MD Work Phone: 7(546)357-129726 [place] [address] 11-05-2024 15:21-0400 Systolic blood pressure 145 mm[Hg] Dr. Ed Bowman MD Work Phone: 9(032)779-747379 [place] [address] 11-05-2024 13:22-0400 Body height 159.[address] Ed Bowman MD Work Phone: 4(514)559-844326 [place] [address] 11-05-2024 13:22-0400 Body mass index (BMI) [Ratio] 34 kg/m2 Dr. Ed Bowman MD Work Phone: 9(997)500-948679 [place] [address] 11-05-2024 13:22-0400 Body temperature 97.9 [degF] Dr. Ed Bowman MD Work Phone: 3(155)990-296179 [place] [address] 11-05-2024 13:22-0400 Body weight [address] Ed Bowman MD Work Phone: 4(238)740-201879 [place] [address] 09-25-2024 13:21-0400 Body mass index (BMI) [Ratio] 33.9 kg/m2 Dr. Ed Bowman MD Work Phone: 4(355)909-676879 [place] [address] 09-25-2024 13:21-0400 Body temperature 98.1 [degF] Dr. Ed Bowman MD Work Phone: [facility] 09-25-2024 13:21-0400 Body weight 86.[address] Ed Bowman MD Work Phone: 0(002)109-092679 [place] [address] 09-25-2024 13:21-0400 Diastolic blood pressure 94 mm[Hg] Dr. Ed Bowman MD Work Phone: 8(502)579-191326 [place] [address] 09-25-2024 13:21-0400 Heart rate 92 /min Dr. Ed Bowman MD Work Phone: 6(757)883-329726 [place] [address] 09-25-2024 13:21-0400 Respiratory rate 18 /min Dr. Ed Bowman MD Work Phone: 8(655)251-660126 [place] [address] 09-25-2024 13:21-0400 SaO2% (BldA) [Mass fraction] 102 % Dr. Ed Bowman MD Work Phone: 5(215)561-234526 [place] [address] 09-25-2024 13:21-0400 Systolic blood pressure 143 mm[Hg] Dr. Ed Bowman MD Work Phone: 7(003)272-665826 [place] [address] 09-16-2024 13:22-0500 Body temperature 97.6 [degF] Dr. Ed Bowman MD Work Phone: 3(226)033-456526 [place] [address] 09-16-2024 13:22-0500 Diastolic blood pressure 90 mm[Hg] Dr. Ed Bowman MD Work Phone: 5(129)052-229826 [place] [address] 09-16-2024 13:22-0500 Heart rate 85 /min Dr. Ed Bowman MD Work Phone: [facility] 09-16-2024 13:22-0500 Respiratory rate 16 /min Dr. Ed Bowman MD Work Phone: 2(856)821-319579 [place] [address] 09-16-2024 13:22-0500 SaO2% (BldA) [Mass fraction] 96 % Dr. Ed Bowman MD Work Phone: 5(314)362-152279 [place] [address] 09-16-2024 13:22-0500 Systolic blood pressure 138 mm[Hg] Dr. Ed Bowman MD Work Phone: 6(462)301-724895 [address] 09-16-2024 11:53-0500 Body mass index (BMI) [Ratio] 34.7 kg/m2 Dr. Ed Bowman MD Work Phone: 9(237)096-131379 [place] [address] 09-16-2024 11:53-0500 Body weight 89.[address] Ed Bowman MD Work Phone: 5(173)642-550726 [place] [address] 09-16-2024 11:50-0500 Body height 160.[address] Ed Bowman MD Work Phone: 8(194)409-566926 [place] [address] 07-18-2024 13:41-0500 Body temperature 97.8 [degF] Dr. Ed Bowman MD Work Phone: 0(561)074-008626 [place] [address] 07-18-2024 13:41-0500 Body weight 87.[address] Ed Bowman MD Work Phone: 7(600)373-366526 [place] [address] 07-18-2024 13:41-0500 Diastolic blood pressure 89 mm[Hg] Dr. Ed Bowman MD Work Phone: 4(804)619-397326 [place] [address] 07-18-2024 13:41-0500 Heart rate 88 /min Dr. Ed Bowman MD Work Phone: 0(549)066-040126 [place] [address] 07-18-2024 13:41-0500 Respiratory rate 16 /min Dr. Ed Bowman MD Work Phone: 6(098)304-453826 [place] [address] 07-18-2024 13:41-0500 SaO2% (BldA) [Mass fraction] 96 % Dr. Ed Bowman MD Work Phone: 0(714)699-737226 [place] [address] 07-18-2024 13:41-0500 Systolic blood pressure 141 mm[Hg] Dr. Ed Bowman MD Work Phone: 8(683)027-658226 [place] [address] 06-05-2024 15:02-0500 Body mass index (BMI) [Ratio] 34.2 kg/m2 Dr. Ed Bowman MD Work Phone: 6(242)182-455326 [place] [address] 06-05-2024 15:02-0500 Body temperature 98.3 [degF] Dr. Ed Bowman MD Work Phone: 4(540)463-635126 [place] [address] 06-05-2024 15:02-0500 Body weight 87.[address] Ed Bowman MD Work Phone: 3(463)407-806379 [place] [address] 06-05-2024 15:02-0500 Diastolic blood pressure 92 mm[Hg] Dr. Ed Bowman MD Work Phone: 4(543)310-632026 [place] [address] 06-05-2024 15:02-0500 Heart rate 86 /min Dr. Ed Bowman MD Work Phone: 0(762)403-608726 [place] [address] 06-05-2024 15:02-0500 Respiratory rate 18 /min Dr. Ed Bowman MD Work Phone: 9(633)381-637226 [place] [address] 06-05-2024 15:02-0500 SaO2% (BldA) [Mass fraction] 99 % Dr. Ed Bowman MD Work Phone: 4(695)891-353526 [place] [address] 06-05-2024 15:02-0500 Systolic blood pressure 145 mm[Hg] Dr. Ed Bomwan MD Work Phone: 6(655)443-304526 [place] [address] 06-04-2024 20:27-0500 Body temperature 98.1 [degF] Dr. Ed Bowman MD Work Phone: 1(429)152-759326 [place] [address] 06-04-2024 20:27-0500 Diastolic blood pressure 77 mm[Hg] Dr. Ed Bowman MD Work Phone: 0(083)541-520726 [place] [address] 06-04-2024 20:27-0500 Heart rate 87 /min Dr. Ed Bowman MD Work Phone: 3(947)418-619226 [place] [address] 06-04-2024 20:27-0500 Respiratory rate 18 /min Dr. Ed Bowman MD Work Phone: 5(716)463-981579 [place] [address] 06-04-2024 20:27-0500 SaO2% (BldA) [Mass fraction] 99 % Dr. Ed Bowman MD Work Phone: 7(750)818-336979 [place] [address] 06-04-2024 20:27-0500 Systolic blood pressure 133 mm[Hg] Dr. Ed Bowman MD Work Phone: 7(645)509-131526 [place] [address] 06-04-2024 18:30-0500 Body mass index (BMI) [Ratio] 36.6 kg/m2 Dr. Ed Bowman MD Work Phone: [facility] 06-04-2024 18:30-0500 Body weight 93.[address] Ed Bowman MD Work Phone: [facility] 03-16-2023 10:53-0400 Body height 165.1 cm [facility] 01-30-2023 15:12-0400 Heart rate 65 /min [facility] 01-30-2023 15:12-0400 Respiratory rate 16 /min [facility] 01-30-2023 15:12-0400 SaO2% (BldA) [Mass fraction] 97 % [facility] 01-30-2023 12:04-0400 Body height 165.1 cm [facility] 01-30-2023 12:04-0400 Body mass index (BMI) [Ratio] 35.1 kg/m2 [facility] 01-30-2023 12:04-0400 Body temperature 96.4 [degF] [facility] 01-30-2023 12:04-0400 Body weight 95.75 kg [facility] Encounters Encounter Date Encounter Type Care Provider Facility Start: 03-08-2025 Evaluation and management of inpatient Dr. Rubi Freire MD -Medical Surgical 3 Work Phone: Start: 02-22-2025 End: 02-22-[address] Ed Bowman MD Work Phone: -Laboratory Start: 02-22-2025 End: 02-22-[address] Ed Bowman MD -Laboratory Work Phone: Start: 02-22-2025 End: 02-22-2025 ambulatory [facility] Facility:[facility] Start: 02-02-2025 End: 02-02-2025 Emergency department patient visit Dr. dE Bowman MD Work Phone: -Emergency Department Work Phone: Start: 01-05-2025 ambulatory [facility] Facility:[facility] Start: 01-01-2025 End: 01-01-2025 Emergency department patient visit Dr. Ed Bowman MD Work Phone: -Emergency Department Work Phone: Start: 12-12-2024 End: 12-12-[address] Ed Bowman MD Work Phone: [facility] Work Phone: Start: 12-12-2024 End: 12-12-[address] Ed Bowman MD -Cat Scan [facility] Work Phone: Start: 12-11-2024 End: 12-12-[address] Ed Bowman MD Work Phone: [facility] Work Phone: Start: 12-11-2024 End: 12-11-[address] Ed Bowman MD -Laboratory Work Phone: Start: 12-11-2024 End: 12-11-2024 ambulatory [facility] Facility:[facility] Start: 12-05-2024 End: 12-05-2024 Emergency department patient visit Dr. Ed Bowman MD Work Phone: -Emergency Department Work Phone: Start: 11-29-2024 End: 11-29-[address] Ed Bowman MD Work Phone: [facility] Work Phone: Start: 11-29-2024 End: 11-29-[address] Ke Saeed MD -Outpatient Breast Imaging Work Phone: Start: 11-29-2024 End: 11-29-2024 ambulatory [facility] Facility:[facility] Start: 11-26-2024 End: 11-26-2024 Emergency department patient visit Dr. Ed Bowman MD Work Phone: -Emergency Department Work Phone: Start: 11-21-2024 End: 11-21-[address] Ed Bowman MD Work Phone: [facility] Work Phone: Start: 11-21-2024 End: 11-21-[address] Ed Bowman MD -Laboratory Specimen Work Phone: Start: 11-20-2024 End: 11-20-[address] Ke Saeed MD -[facility] Work Phone: Start: 11-20-2024 End: 11-21-2024 ambulatory [facility] Facility:[facility] Start: 11-20-[address] Nelson Hobson MD -[facility] Start: 11-09-2024 End: 11-09-[address] Ed Bowman MD -Radiology [facility] Work Phone: Start: 11-09-2024 End: 11-09-2024 ambulatory [facility] Facility:[facility] Start: 11-05-2024 End: 11-05-2024 Emergency department patient visit Dr. Ed Bowman MD Work Phone: -Emergency Department Work Phone: Start: 09-25-[address] Nelson Hobson MD -[facility] Start: 09-25-2024 End: 09-25-[address] Nelson Hobson MD -[facility] Work Phone: Start: 09-25-2024 End: 09-25-2024 ambulatory [facility] Start: 09-16-2024 End: 09-16-2024 Emergency department patient visit Dr. Ed Bowman MD Work Phone: -Emergency Department Work Phone: Start: 09-12-2024 End: 09-12-[address] Ed Bowman MD Work Phone: [facility] Work Phone: Start: 09-12-2024 End: 09-12-[address] Ed Bowman MD -Laboratory, Phy Office 3rd Flr Start: 09-12-2024 End: 09-12-2024 ambulatory Ed Chi Colby Facility:[facility] Start: 07-18-2024 End: 07-18-2024 Patient encounter procedure Roxana MARIA -[facility] Work Phone: Start: 07-18-2024 End: 07-18-2024 ambulatory Ed [facility] Col[facility] Facility:[facility] Start: 06-30-2024 ambulatory Ed [facility] Colby Facility:[facility] Start: 06-30-2024 Non-patient / Non-visit Dr. Neptali york MD -[facility] Start: 06-30-2024 End: 06-30-2024 Patient encounter procedure Roxana MARIA -Cardiovascular Services Work Phone: Start: 06-30-2024 End: 06-30-2024 ambulatory Roxana Johns Facility:[facility] Start: 06-13-2024 End: 06-13-[address] Ed Bowman MD -Laboratory, Phy Office 3rd Flr Start: 06-13-2024 End: 06-13-2024 ambulatory Ed Chi Colby Facility:[facility] Start: 06-08-2024 End: 06-08-[address] Nelson Hobson MD -Laboratory, Specimen Work Phone: Start: 06-08-2024 End: 06-08-2024 ambulatory Ed Chi Colby Facility:[facility] Start: 06-05-[address] Nelson Hobson MD -[facility] Start: 06-05-2024 End: 06-05-[address] Nelson Hobson MD -[facility] Work Phone: Start: 06-05-2024 End: 06-05-2024 ambulatory Ed Chi Colby Facility:[facility] Start: 06-04-2024 End: 06-04-2024 Emergency department patient visit Dr. Chance Nieto MD -Emergency Department Work Phone: Start: 05-16-2024 End: 05-16-2024 ambulatory Ed Chi Colby Facility:[facility] Start: 05-12-2024 End: 05-12-2024 ambulatory Ed Chi Colby Facility:[facility] Start: 05-11-2024 End: 05-11-2024 ambulatory [facility] Facility:[facility] Start: 05-08-2024 End: 05-08-2024 ambulatory Nelson Hobson Facility:[facility] Start: 03-31-2024 End: 03-31-2024 ambulatory Roxana Johns Facility:[facility] Start: 03-13-2024 ambulatory Simona Mo Facility:[facility] Start: 03-12-2024 ambulatory [facility] Facility: [facility] Start: 03-12-2024 End: 03-16-2024 Evaluation and management of inpatient Dayday Bi Facility:[facility] Start: 03-10-2024 End: 03-10-2024 ambulatory [facility] Facility:[facility] Start: 02-24-2024 End: 02-24-2024 ambulatory [facility] Facility:[facility] Start: 02-23-2024 End: 02-23-2024 ambulatory [facility] Facility:[facility] Start: 09-06-2023 End: 09-06-2023 ambulatory [facility] Work Phone: Start: 09-06-2023 End: 09-06-2023 Patient encounter procedure [facility]-Laboratory, Phy Office 3rd Flr Start: 08-13-2023 End: 08-13-2023 Patient encounter procedure [facility]-Radiology, [facility] Work Phone: Start: 03-23-2023 End: 03-23-2023 ambulatory [facility] Work Phone: Start: 03-23-2023 End: 03-23-2023 Patient encounter procedure [facility]-Radiology, [facility] Work Phone: Start: 03-16-2023 End: 03-16-2023 ambulatory [facility] Work Phone: Start: 03-16-2023 End: 03-16-2023 Patient encounter procedure [facility]-Outpatient Bone Densitometry Work Phone: Start: 03-08-2023 End: 03-08-2023 ambulatory [facility] Work Phone: Start: 03-08-2023 End: 03-08-2023 [facility] Start: 01-30-2023 End: 01-30-2023 [facility] Start: 01-28-2023 End: 01-28-2023 [facility] Start: 09-01-2022 End: 09-01-2022 ambulatory [facility] Work Phone: Start: 09-01-2022 End: 09-01-2022 [facility] Start: 08-31-2022 End: 08-31-2022 ambulatory [facility] Work Phone: Start: 08-31-2022 End: 08-31-2022 [facility] Start: 03-02-2022 End: 03-02-2022 ambulatory [facility] Work Phone: Start: 03-02-2022 End: 03-02-2022 [facility] Start: 11-12-2021 End: 11-12-2021 [facility] Start: 09-02-2021 End: 09-02-2021 [facility] Start: 08-11-2021 End: 08-11-2021 [facility] Procedures Date Procedure Procedure Detail Performing Clinician Start: 03-08-[address] Ed Bowman MD Work Phone: Start: 02-02-2025 X-ray of foot, three or more views Dr. Ed Bowman MD Work Phone: Start: 02-02-2025 Measurement of occul t blood in stool specimen using immunoassay Dr. Ed Bowman MD Work Phone: Start: 01-01-2025 CT cervical spine wi thout contrast Dr. Ed Bowman MD Work Phone: Start: 01-01-2025 CT of head without contrast Dr. Ed Bowman MD Work Phone: Start: 12-12-2024 CT of head without contrast Dr. Ed Bowman MD Work Phone: Start: 12-11-2024 Vitamin D, 25-hydrox y measurement Dr. Ed Bowman MD Work Phone: Comment on above: Vitamin D StatusDefi ciency: <20 ng/mL (50nmol/L)Insufficiency: 20-30 ng/mL (50-75 nmol/L)Sufficiency: 30-100 ng/mL (75-250 nmol/L)Toxicity: >100 ng/mL (>250 nmol/L) Start: 12-05-2024 CT cervical spine wi thout [...] Ed Bowman MD Work Phone: Start: 11-21-2024 Bacterial nucleic acid assay Dr. Ed Bowman MD Work Phone: Start: [...] Work Phone: Influenza Types A,B Direct FA (TEETEE) Respiratory syncytia l virus antigen assay Plan of Treatment Date Care Activity Detail Author Start: 03-08-2025 Admission procedure [facility] Start: 03-08-2025 Hospital admission, emergency, from emergency room, medical nature [facility] Start: 03-08-2025 Brain/Head without Contrast Br ain/Head without Contrast [facility] Start: 03-08-2025 CT Abdomen and Pelvi s W contrast IV [facility] Start: 03-08-2025 CT Cervical spine WO contrast [facility] Start: 03-08-2025 CT Chest, Abd, Pel w/Contrast CT Chest, Abd, Pel w/Contrast [facility] Start: 03-08-2025 CT Unspecified body region WO contrast [facility] Start: 03-08-2025 Elbow min 3 Views Elbow min 3 Views [facility] Start: 03-08-2025 Humerus min 2 Views Humerus min 2 Vi ews [facility] Start: 03-08-2025 Shoulder min 2 Views Shoulder min 2 Views [facility] Start: 03-08-2025 Spine Cervical witho ut Contras Spine Cervical without Contras [facility] Start: 03-08-2025 Wrist min 3 Views Wrist min 3 Views [facility] Start: 03-08-2025 XR Elbow GE 3 Views [facility] Start: 03-08-2025 XR Humerus GE 2 Views [facility] Start: 03-08-2025 XR Shoulder GE 2 Views [facility] Start: 03-08-2025 XR Wrist GE 3 Views [facility] Start: 01-01-2025 [facility] Start: 12-05-2024 Simple repair scalp/neck/ax/genit/trunk 2.5cm/< RPR S/N/AX/GEN/TRNK 2.5CM/< [facility] Start: 12-05-2024 End: 12-05-2024 [facility] Start: 11-26-2024 [facility] Start: 11-21-2024 Skin and Soft Tissue MRSA/MSSA (PCR Skin and Soft Tissue MRSA/MSSA (PCR [facility] Start: 11-21-2024 Bacterial nucleic ac id assay [facility] Start: 11-21-2024 [facility] Start: 11-05-2024 End: 11-05-2024 [facility] Start: 11-05-2024 Bacteria identified in Urine by Culture Urine Culture [facility] Start: 11-05-2024 Consultation [facility] Start: 11-05-2024 [facility] Start: 09-16-2024 [facility] Start: 06-04-2024 [facility] Bacterial nucleic ac id assay [facility] Bilirubin measuremen t, urine [facility] CBC W Auto Different ial panel - Blood [facility] CBC W Auto Different ial panel - Blood [facility] Comprehensive metabo lic 2000 panel - Serum or Plasma [facility] D-dimer assay, quantitative [facility] D-dimer assay, quantitative [facility] Hemoglobin [Presence ] in Urine [facility] Lactate dehydrogenas e measurement [facility] Measurement of keton es in urine using dipstick [facility] MG Breast - bilatera l Screening [facility] Microscopic urinalysis [facility] Partial thromboplast in time, activated [facility] Patient Education [facility] Work Phone: Patient referral [facility] Work Phone: pH of Urine [facility] Prothrombin time [facility] Specific gravity of Urine [facility] Urine blood test [facility] Urine culture [facility] Urine dipstick for glucose [facility] Urine dipstick for leukocyte esterase [facility] Urine dipstick for nitrite [facility] Urine dipstick for protein [facility] Urine examination [facility] Urine microscopy: epithelial cells [facility] Urine Microscopy: wh ite cells [facility] Urobilinogen [Presen ce] in Urine [facility] Immunizations Immunization Date Immunization Notes Care Provider Fa cility 11-05-2024 tetanus toxoid, redu dalila diphtheria toxoid, and acellular pertussis vaccine, adsorbed Dr. Ed Bowman MD Work Phone: [facility] 04-11-2022 influenza, injectabl e, quadrivalent, preservative free [facility] 04-11-2022 influenza, seasonal, injectable [facility] 10-22-2020 Covid (Pfizer) [facility] 09-30-2020 Covid (Pfizer) [facility] 03-26-2019 Influenza virus vaccine [facility] 02-28-2017 influenza, injectabl e, quadrivalent, preservative free [facility] 02-28-2017 influenza, seasonal, injectable [facility] Payers Date Payer Category Payer Self-pay [id number] 2023 Medicare [id number] Medicare [id number] Unknown [id number] Unknown [id number] 2.16.8 40.1.511766.3.579.2.462 Unknown [id number] 2.16.8 40.1.004258.3.579.2.462 Unknown [id number] 2.16.8 40.1.646387.3.579.2.462 Unknown [id number] 2.16.8 40.1.012379.3.579.2.462 Unknown [id number] 2.16.8 40.1.315469.3.579.2.462 Unknown [id number] 2.16.8 40.1.104753.3.579.2.462 Unknown [id number] 2.16.8 40.1.763260.3.579.2.462 Unknown [id number] 2.16.8 40.1.703052.3.579.2.462 Unknown [id number] 2.16.8 40.1.971855.3.579.2.462 Unknown [id number] 2.16.8 40.1.451030.3.579.2.462 Unknown [id number] 2.16.8 40.1.771912.3.579.2.462 Unknown [id number] 2.16.8 40.1.768077.3.579.2.462 Unknown [id number] 2.16.8 40.1.700094.3.579.2.462 Unknown [id number] 2.16.8 40.1.746681.3.579.2.462 Unknown [id number] 2.16.8 40.1.641588.3.579.2.462 Unknown [id number] 2.16.8 40.1.746865.3.579.2.462 Unknown [id number] 2.16.8 40.1.473259.3.579.2.462 Unknown [id number] 2.16.8 40.1.574490.3.579.2.462 Unknown [id number] 2.16.8 40.1.124317.3.579.2.462 Unknown [id number] 2.16.8 40.1.144552.3.579.2.462 Unknown [id number] 2.16.8 40.1.255325.3.579.2.462 Unknown [id number] 2.16.8 40.1.613559.3.579.2.462 Unknown [id number] 2.16.8 40.1.287289.3.579.2.462 Unknown [id number] 2.16.8 40.1.940865.3.579.2.462 Unknown [id number] 2.16.8 40.1.848378.3.579.2.462 Unknown [id number] 2.16.8 40.1.422709.3.579.2.462 Unknown [id number] 2.16.8 40.1.548676.3.579.2.462 Unknown [id number] 2.16.8 40.1.108348.3.579.2.462 Unknown [id number] 2.16.8 40.1.122500.3.579.2.462 Unknown [id number] 2.16.8 40.1.500321.3.579.2.462 Unknown [id number] 2.16.8 40.1.539597.3.579.2.462 Unknown [id number] 2.16.8 40.1.319657.3.579.2.462 Unknown [id number] 2.16.8 40.1.314203.3.579.2.462 Unknown [id number] 2.16.8 40.1.170652.3.579.2.462 Unknown [id number] 2.16.8 40.1.760095.3.579.2.462 Unknown [id number] 2.16.8 40.1.562572.3.579.2.462 Unknown [id number] 2.16.8 40.1.444668.3.579.2.462 Unknown [id number] 2.16.8 40.1.464216.3.579.2.462 Unknown [id number] 2.16.8 40.1.766158.3.579.2.462 Unknown [id number] 2.16.8 40.1.135668.3.579.2.462 Unknown [id number] 2.16.8 40.1.048257.3.579.2.462 Unknown [id number] 2.16.8 40.1.274690.3.579.2.462 Unknown [id number] 2.16.8 40.1.579783.3.579.2.462 Unknown [id number] 2.16.8 40.1.337373.3.579.2.462 Unknown [id number] 2.16.8 40.1.552770.3.579.2.462 Unknown [id number] 2.16.8 40.1.641729.3.579.2.462 Unknown [id number] 2.16.8 40.1.829778.3.579.2.462 Unknown [id number] 2.16.8 40.1.279821.3.579.2.462 Unknown [id number] 2.16.8 40.1.344056.3.579.2.462 Social History Date Type Detail Facility Start: 02-21-2021 End: 01-30-2023 Tobacco smoking status NHIS Unknown if ever smoked [facility] Start: 10-13-2017 None [facility] Start: 12-21-2019 Spouse/ Signif icant Other [facility] Start: 1950 Sex Assigned At Female W [facility] Start: 09-16-2024 End: 03-08-2025 Tobacco smoking status NHIS Never smoked tobacco (finding) [facility] Start: 09-16-2024 End: 11-05-2024 Sex Female (finding) [facility] Medical Equipment Procedure Code Equipment Code Equipment [...] cholecystectomy with exploration of common bile duct CLIP,HEMHTI ROSSI WECK FDA Start: 12-22-2019 Total cholecystectomy with exploration of common bile duct CLIP,HEMTHI ROSSI WECK FDA Start: 12-22-2019 Total cholecystectomy with exploration of common bile duct CLIP,HEMTHI ROSSI WECK FDA Start: 12-22-2019 Total cholecystectomy with exploration of common bile duct CLIP,YEISON STALLWORTHRAVINDRA FDA Start: 12-22-2019 Total cholecystectomy with exploration of common bile duct CLIP,HEMTHI STLALWORTHRAVINDRA FDA Start: 12-22-2019 Total cholecystectomy with exploration of common bile duct CLIP,HEMTHI ROSSI WERAVINDRA FDA Start: 12-22-2019 Total cholecystectomy with exploration of common bile duct CLIP,HEMGLADYSRAVINDRA FLO FAYE FDA Start: 12-22-2019 Total cholecystectomy with exploration of common bile duct CLIP,YEISON ROSSI FAYE FDA Start: 12-22-2019 Total cholecystectomy with exploration of common bile duct CLIP,NALLELYRAVINDRA FLO FAYE FDA Start: 12-22-2019 Total cholecystectomy with exploration of common bile duct CLIP,YEISON STALLWORTHRAVINDRA FDA Start: 12-22-2019 Total cholecystectomy with exploration of common bile duct CLIP,YEISON STALLWORTHRAVINDRA FDA Start: 12-22-2019 Total cholecystectomy with exploration of common bile duct CLIP,NALLELYRAVINDRA FLO FAYE FDA Start: 12-22-2019 Total cholecystectomy with exploration of common bile duct CLIP,YEISON ROSSI FAYE FDA Start: 12-22-2019 Total cholecystectomy with exploration of common bile duct CLIP,YEISON ROSSI FAYE FDA Start: 12-22-2019 Total cholecystectomy with exploration of common bile duct CLIP,YEISON STALLWORTHRAVINDRA FDA Start: 12-22-2019 Total cholecystectomy with exploration of common bile duct CLIP,HEMTHI ROSSI WERAVINDRA FDA Start: 12-22-2019 Total cholecystectomy with exploration of common bile duct CLIP,YEISON ROSSI WECK FDA Start: 12-22-2019 Total cholecystectomy with exploration of common bile duct CLIP,HEMTHI ROSSI WERAVINDRA FDA Start: 12-22-2019 Mental Status Date Assessment Result Facility 02-02-2025 Cognitive function Level Of Cons ciousness Awake;Alert;Appropriate;Follow s Commands [facility] Work Phone: 11-05-2024 Cognitive function Level Of Cons ciousness Awake;Alert;Appropriate;Follow s Commands [facility] Work Phone: Clinical Notes 02-21-2021 to 03-08-2025 Note Date & Type Note Facility 03-08-2025 Radiology Diagnostic study note [facility] [address] [place] [address] CT Chest, Abd, Pel w/Contrast MR#: [id number] Acct: [id number] Name: BARBARA GLASS Rep #: [id number] : 1950 F 74 From: Dawson Jay MD PCP: Dr. Ed Bowman MD Status: REG E R Study:CT Chest, Abd, Pel w/Contrast Date of E xam: 03/08/25 Exam# [id number] Ordering Dr: Irena Gannon PROCEDURE: CT CHEST, ABD, PEL W/CONTRAST 03/08/2025 REASON FOR EXAM: FALL, L RIB PAIN TECHNIQUE: Chest, abdomen and pelvis CT with intravenous contrast. Coronal and Sagittal reconstruction series were provided. One or more dose reduction techniques were used (e.g., Automated exposure control, adjustment of the mA and/or kV according to patient size, use of iterative reconstruction technique. PATIENT PREPARATION: Per protocol ORAL CONTRAST TYPE: None. CONTRAST: Isovue 370 VOLUME: 95mL RADIATION DOSE SUMMARY: CTDlvol: 24.45 mGy DLP: 738.84 mGycm COMPARISON: May 11, 2024. FINDINGS: CT CHEST: Hardware: None Lymph nodes: Small mediastinal lymph nodes. Heart and Vasculature: The heart is nonenlarged. Minimal coronary artery calcification. Lungs and Airways: Mild scarring at the lung bases in the right middle lobe. Pleura: No pleural effusion. Bones: Degenerative changes of the thoracic spine. No rib fracture seen on thisexamination. Nondisplaced fracture of the surgical neck of the proximal right humerus with extension to the greater and lesser tuberosities. CT ABDOMEN/PELVIS: Liver: Minimal central intrahepatic biliary ductal dilatation. Gallbladder: Surgically absent. Spleen: Mild splenomegaly. Pancreas: Normal size without evidence of mass surrounding inflammation or ductal dilation. Adrenals: Unremarkable Kidneys: Normal renal sizes. No hydronephrosis. Small left renal cysts. Bladder: Unremarkable Reproductive Organs: Prior hysterectomy. Adnexal regions are unremarkable. Bowel: Colonic diverticulosis without diverticulitis. Appendix: The appendix is not identified. There is no inflammatory process identified in the right lower quadrant to suggest appendicitis. Lymph nodes: Unremarkable. Vasculature: Mild diffuse atherosclerotic calcifications are noted. Peritoneum / Retroperitoneum: Unremarkable Bones: Degenerative changes of the spine. CT/CT Chest, Abd, Pel w/Contrast IMPRESSION: Nondisplaced fracture through the surgical neck of the proximal right humerus with extension into the greater and lesser tuberosities. No rib fracture. Small left renal cysts and mild splenomegaly. Reading Location: [id number] CC: Dr. Ed Bowman MD; CROW Cooper ~ Chemical Pumper: Signed [facility] 03-08-2025 Radiology Diagnostic study note [facility] [address] [place] [address] [id number] Brain/Head without Contrast MR#: [id number] Acct: [id number] Name: BARBARA GLASS Rep #: [id number] : 1950 F 74 From: Raul Granado MD PCP: Dr. Ed Bowman MD Status: REG E R Study:Brain/Head without Contrast Date of Exa m: 03/08/25 Exam# [id number] Ordering Dr: Irena Gannon PROCEDURE: BRAIN/HEAD WITHOUT CONTRAST 03/08/2025 REASON FOR EXAM: HEAD INJURY TECHNIQUE: CT BRAIN/HEAD WITHOUT CONTRAST Coronal and Sagittal reconstruction series were provided. One or more dose reduction techniques were used (e.g., Automated exposure control, adjustment of the mA and/or kV according to patient size, use of iterative reconstruction technique. RADIATION DOSE SUMMARY: DLP: 3292.20 mGycm COMPARISON: PET-CT 01/01/2025. FINDINGS: Brain: No intracranial hemorrhage, mass, or mass effect is seen. No extra-axial fluid collection is noted. Stable appearance of significant bilateral cerebral and pontine white matter changes, consistent with chronic ischemic changes of small-vessel disease. Stable chronic appearing right thalamic lacunar infarction. No orbital pathology is seen. CSF Spaces: Normal, for age Sinuses/Mastoids: A small air-fluid level is seen a diminutive right sphenoid sinus. The remaining paranasal sinuses appear clear. Mastoid air cells appear clear. Bones: No fracture site is seen. CT/Brain/Head without Contrast IMPRESSION: 1. Small right sphenoid sinus air-fluid level, possibly due to acute sinusitis. 2. No intracranial hemorrhage is seen. No acute intracranial process is noted. 3. No fracture site is evident. Reading Location: [facility] CC: Dr. Ed Bowman MD; CROW Cooper ~ Chemical Pumper: Signed [facility] 03-08-2025 Radiology Diagnostic study note [facility] [address] [place] [address] Spine Cervical without Contras MR#: [id number] Acct: [id number] Name: BARBARA GLASS Rep #: [id number] : 1950 F 74 From: Dawson Jay MD PCP: Dr. Ed Bowman MD Status: REG E R Study:Spine Cervical without Contras Date of Exam: 03/08/25 Exam# [id number] Ordering Dr: Irena Gannon PROCEDURE: SPINE CERVICAL WITHOUT CONTRAS 03/08/2025 REASON FOR EXAM: HEAD INJURY, PAIN TECHNIQUE: SPINE CERVICAL WITHOUT CONTRAS Coronal and Sagittal reconstruction series were provided. One or more dose reduction techniques were used (e.g., Automated exposure control, adjustment of the mA and/or kV according to patient size, use of iterative reconstruction technique. RADIATION DOSE SUMMARY: CTDlvol: 21.64 mGy DLP: 352.76 mGycm COMPARISON: Prior study dated January 01, 2025. FINDINGS: Alignment: Straightening of the normal cervical lordosis. Vertebrae: No vertebral fracture is seen. Spondylosis at the C5-C6 level. Soft Tissues: Atherosclerotic plaque formation of the basilar artery. Other: C1-2: Unremarkable C2-3: Unremarkable C3-4: Unremarkable C4-5: Moderate degree of disc space narrowing. Uncovertebral arthrosis. No significant stenosis seen. C5-6: Marked degree of disc space narrowing. Spondylosis. Uncovertebral arthrosis. Udgz-rv-pjneekhr degree of bilateral neural foraminal stenosis. C6-7: Minimal disc space narrowing. No significant stenosis. C7-T1: Unremarkable CT/Spine Cervical without Contras IMPRESSION: DEGENERATIVE CHANGES OF THE CERVICAL SPINE. NO EVIDENCE OF SIGNIFICANT OSSEOUS CENTRAL CANAL OR NEURAL FORAMINAL STENOSIS. Reading Location: [id number] CC: Dr. Ed Bowman MD; CROW Cooper ~ Chemical Pumper: Signed [facility] 03-08-2025 Radiology Diagnostic study note [facility] [address] [place] [address] Shoulder min 2 Views MR#: [id number] Acct: [id number] Name: DAVIDBARBARA C Rep #: [id number] : 1950 F 74 From: Joshua Hubbard MD PCP: Dr. Ed Bowman MD Status: PRE E R Study:Shoulder min 2 Views Date of Exam: 03/08/25 Exam# [id number] Ordering Dr: Irena Gannon PROCEDURE: SHOULDER MIN 2 VIEWS 03/08/2025 REASON FOR EXAM: FALL TECHNIQUE: SHOULDER MIN 2 VIEWS Laterality: COMPARISON: None. FINDINGS: Bones: Acute fracture of the surgical neck of the right humerus extending to thegreater tubercle. Joints: No dislocations. Soft tissues: Soft tissue swelling surrounding the right shoulder. RAD/Shoulder min 2 Views IMPRESSION: Acute fracture of the surgical neck of the right humerus extending to the greater tubercle. Reading Location: [id number] CC: Dr. Ed Bowman MD; CROW Cooper ~ Chemical Pumper: Signed [facility] 03-08-2025 Radiology Diagnostic study note [facility] [address] [place], [place] [id number] Humerus min 2 Views MR#: [id number] Acct: [id number] Name: BARBARA GLASS Rep #: [id number] : 1950 F 74 From: Joshua Hubbard MD PCP: Dr. Ed Bowman MD Status: PRE E R Study:Humerus min 2 Views Date of Exam: 03/08/25 Exam# [id number] Ordering Dr: Irena Gannon PROCEDURE: HUMERUS MIN 2 VIEWS 03/08/2025 REASON FOR EXAM: FALL, PAIN TECHNIQUE: HUMERUS MIN 2 VIEWS Laterality: Right COMPARISON: None FINDINGS: Bones: Acute fracture of the surgical neck of the right humerus extending to thegreater tubercle. Joints: No dislocations. Soft tissues: No soft tissue abnormalities. RAD/Humerus min 2 Views IMPRESSION: Acute fracture of the surgical neck of the right humerus extending to the greater tubercle. No dislocation of the shoulder joint. Reading Location: [facility] CC: Dr. Ed Bowman MD; CROW Cooper ~ Chemical Pumper: Signed [facility] 03-08-2025 Radiology Diagnostic study note [facility] Services [address] [place], [place] [id number] Wrist min 3 Views MR#: [id number] Acct: [id number] Name: BARBARA GLASS Rep #: [id number] : 1950 F 74 From: Joshua Hubbard MD PCP: Dr. Ed Bowman MD Status: PRE E R Study:Wrist min 3 Views Date of Exam: Exam# [id number] Ordering Dr: Irena Gannon PROCEDURE: WRIST MIN 3 VIEWS 03/08/2025 REASON FOR EXAM: FALL, PAIN TECHNIQUE: WRIST MIN 3 VIEWS Laterality: Right COMPARISON: None. FINDINGS: Bones: No acute bony abnormalities. Joints: Unremarkable. Soft tissues: No soft tissue abnormalities. RAD/Wrist min 3 Views IMPRESSION: No acute osseous abnormalities. Reading Location: [id number] CC: Dr. Ed Bowman MD; CROW Cooper ~ Chemical Pumper: Signed [facility] 03-08-2025 Radiology Diagnostic study note [facility] [address] [place], [place] [id number] Elbow min 3 Views MR#: [id number] Acct: [id number] Name: BARBARA GLASS Rep #: [id number] : 1950 F 74 From: Joshua Hubbard MD PCP: Dr. Ed Bowman MD Status: PRE E R Study:Elbow min 3 Views Date of Exam: Exam# [id number] Ordering Dr: Irena Gannon PROCEDURE: ELBOW MIN 3 VIEWS 03/08/2025 REASON FOR EXAM: PAIN TECHNIQUE: ELBOW MIN 3 VIEWS Laterality: COMPARISON: None. FINDINGS: Bones: No acute bony abnormalities. Joints: Unremarkable. Soft tissues: Unremarkable. RAD/Elbow min 3 Views IMPRESSION: No acute osseous abnormalities. Reading Location: [facility] CC: Dr. Ed Bowman MD; CROW Cooper ~ Chemical Pumper: Signed [facility] 02-02-2025 Radiology Diagnostic study note [facility] [address] [place] [address] Foot min 3 Views MR#: [id number] Acct: [id number] Name: BARBARA GLASS Rep #: [id number] : 1950 F 74 From: Luis Eduardo Rodriguez MD PCP: Dr. Ed Bowman MD Status: REG E R Study:Foot min 3 Views Date of Exam: Exam# [id number] Ordering Dr: Neptali Dacosta DO PROCEDURE: FOOT MIN 3 VIEWS 02/02/2025 REASON FOR EXAM: INJURY/PAIN TECHNIQUE: FOOT MIN 3 VIEWS COMPARISON: None FINDINGS: Bones: Bone demineralization. No acute fracture. Deformity from old, healed fracture at the mid 5th metatarsal diaphysis. Calcaneal spur is present. Joints: Mild joint space narrowing interphalangeal joint. Msygwexy-hi-cqyjvp joint space narrowing, sclerosis with marginal spurring 1st MTP joint. Soft tissues: Atherosclerosis of the vascular structures. RAD/Foot min 3 Views IMPRESSION: No acute abnormality. Fracture deformity of the 5th metatarsal status post healing. 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 Reading Location: [id number] CC: Dr. Neptali Dacosta DO; Dr. Ed Bowman MD ~ Chemical Pumper: Signed [facility] 01-01-2025 Radiology Diagnostic study note [facility] [address] [place], [place] [address] Brain/Head without Contrast MR#: [id number] Acct: [id number] Name: BARBARA GLASS Rep #: [id number] : 1950 F 74 From: Raul Granado MD PCP: Dr. Ed Bowman MD Status: REG E R Study:Brain/Head without Contrast Date of Exa m: 01/01/25 Exam# [id number] Ordering Dr: Amber Pelaez DO PROCEDURE: BRAIN/HEAD WITHOUT CONTRAST 01/01/2025 REASON FOR EXAM: FALL TECHNIQUE: BRAIN/HEAD WITHOUT CONTRAST Coronal and Sagittal reconstruction series were provided. One or more dose reduction techniques were used (e.g., Automated exposure control, adjustment of the mA and/or kV according to patient size, use of iterative reconstruction technique. RADIATION DOSE SUMMARY: DLP: 1275.45 mGycm COMPARISON: Head CT of 12/12/2024. FINDINGS: Brain: Stable appearance of bilateral cerebral and pontine white matter hypodensities, consistent with chronic ischemic changes of small-vessel disease. Stable left cerebellar lacunar infarction. Stable right thalamic lacunar infarction. No intracranial hemorrhage, mass, or mass effect is seen. No extra-axial fluid collection is noted. No orbital pathology is seen. CSF Spaces: Normal Sinuses/Mastoids: Clear at visualized levels Bones: No fracture site is seen. CT/Brain/Head without Contrast IMPRESSION: No intracranial hemorrhage is seen. Stable examination. Reading Location: [place] [address] CC: Dr. Samia Pelaez DO; Dr. Ed Bowman MD ~ Chemical Pumper: Signed [facility] 01-01-2025 Radiology Diagnostic study note [facility] [address] [place] [address] Spine Cervical without Contras MR#: [id number] Acct: [id number] Name: BARBARA GLASS Rep #: [id number] : 1950 F 74 From: Dawson Jay MD PCP: Dr. Ed Bowman MD Status: REG E R Study:Spine Cervical without Contras Date of Exam: 01/01/25 Exam# [id number] Ordering Dr: Amber Pelaez DO PROCEDURE: SPINE CERVICAL WITHOUT CONTRAS 01/01/2025 REASON FOR EXAM: FALL TECHNIQUE: SPINE CERVICAL WITHOUT CONTRAS Coronal and Sagittal reconstruction series were provided. CONTRAST: None One or more dose reduction techniques were used (e.g., Automated exposure control, adjustment of the mA and/or kV according to patient size, use of iterative reconstruction technique RADIATION DOSE SUMMARY: CTDlvol: 18.83 mGy DLP: 402.77 mGycm COMPARISON: Prior study dated December 05, 2024. FINDINGS: Alignment: Straightening of the normal cervical lordosis most likely secondary to muscle spasm. Vertebrae: Spondylosis. Soft Tissues: Unremarkable Other: C1-2: Unremarkable C2-3: Facet joint osteoarthritis. No evidence of spinal or neural foraminal stenosis. C3-4: Mild degree of disc space narrowing. C4-5: Mild degree of disc space narrowing. Facet joint osteoarthritis and hypertrophy. No evidence of spinal stenosis. C5-6: Moderate degree of disc space narrowing. Spondylosis. Uncovertebral arthrosis. Mild bilateral neural foraminal stenosis. C6-7: Unremarkable C7-T1: Unremarkable CT/Spine Cervical without Contras IMPRESSION: DEGENERATIVE CHANGES OF THE CERVICAL SPINE. NO EVIDENCE OF SIGNIFICANT OSSEOUS CENTRAL CANAL OR NEURAL FORAMINAL STENOSIS. Reading Location: [facility] CC: Dr. Samia Pelaez DO; Dr. Ed Bowman MD ~ Chemical Pumper: Signed [facility] 12-12-2024 Radiology Diagnostic study note [facility] Imaging Services [address] [place], [place] [address] Brain/Head without Contrast MR#: [id number] Acct: [id number] Name: BARBARA GLASS Rep #: [id number] : 1950 F 74 From: Ned Serrato MD PCP: Dr. Ed Bowman MD Status: REG C BERENICE Study:Brain/Head without Contrast Date of Exa m: 12/12/24 Exam# [id number] Ordering Dr: Ed Bowman MD PROCEDURE: BRAIN/HEAD WITHOUT CONTRAST 12/12/2024 REASON FOR EXAM: INJURY OF HEAD TECHNIQUE: Head CT without intravenous contrast. Coronal and Sagittal reconstruction serieswere provided. One or more dose reduction techniques were used (e.g., Automated exposure control, adjustment of the mA and/or kV according to patient size, use of iterative reconstruction technique. RADIATION DOSE SUMMARY: CTDlvol: 44.99 mGy DLP: 796.11 mGycm COMPARISON: CT head without contrast, 12/05/2024. FINDINGS: There is mild diffuse cerebral atrophy with concomitant ventriculomegaly. Thereis patchy low-density of the periventricular white matter consistent with chronic ischemic white matter disease. There is noevidence of acute intracranial hemorrhage or infarction. There are no abnormal intracranial masses or mass effects. The basilar cisterns are unremarkable. There is calcific vascular disease of the intracranial portion of both internal carotid arteries, the right vertebral artery and the basilar artery. The skull base and calvarium are normal. There is thickening of the dodd of the frontal, sphenoid and bilateral maxillary sinuses suggesting chronic sinusitis. There is mucoperiosteal thickening of thefrontal sinuses multiple ethmoidal air cells, the maxillary sinuses and the right sphenoid sinus. The paranasal sinuses and mastoid air cells are unremarkable. The intraorbital contents are normal. There are multiple skin lance in the left frontal scalp region, consistent with laceration closure. CT/Brain/Head without Contrast IMPRESSION: 1. No evidence of acute intracranial pathology. 2. Mild cerebral atrophy. 3. Other findings as noted. No significant change. Reading Location: [facility] CC: Dr. Ed Bowman MD ~ Chemical Pumper: Signed [facility] Work Phone: 12-05-2024 Hospital Discharg e instructions Additional Instructions Follow-up with primary care physician. Lance need to be removed in 10 to 14 days. [facility] Work Phone: 12-05-2024 Discharge summary [facility] 12-05-2024 Radiology Diagnostic study note [facility] Imaging Services [address] [place] [address] Spine Cervical without Contras MR#: [id number] Acct: [id number] Name: BARBARA GLASS Rep #: [id number] : 1950 F 74 From: Dawson Jay MD PCP: Dr. Ed Bowman MD Status: REG E R Study:Spine Cervical without Contras Date of Exam: 12/05/24 Exam# [id number] Ordering Dr: Dc Melendez DO PROCEDURE: SPINE [...] CANAL OR NEURAL FORAMINAL STENOSIS. Reading Location: [facility] CC: Dr. Dc Francis DO; Dr. Ed Bowman MD ~ Chemical Pumper: Signed [facility] 12-05-2024 Radiology Diagnostic study note [facility] Imaging Services [address] [place] [address] Brain/Head without Contrast MR#: [id number] Acct: [id number] Name: BARBARA GLASS Rep #: [id number] : 1950 F 74 From: Dawson Jay MD PCP: Dr. Ed Bowman MD Status: REG E R Study:Brain/Head without Contrast Date of Exa m: 12/05/24 Exam# [id number] Ordering Dr: Dc Melendez DO PROCEDURE: BRAIN/HEAD [...] CHRONIC CHANGES. NO ACUTE FINDINGS. Reading Location: [facility] CC: Dr. Dc Francis DO; Dr. Ed Bowman MD ~ Chemical Pumper: Signed [facility] 11-26-2024 Discharge summary [facility] 11-26-2024 Radiology Diagnostic study note [facility] Imaging Services [address] [place], [place] [address] Spine Cervical without Contras MR#: [id number] Acct: [id number] Name: BARBARA GLASS Rep #: [id number] : 1950 F 74 From: Laura Mora MD PCP: Dr. Ed Bowman MD Status: REG E R Study:Spine Cervical without Contras Date of Exam: 11/26/24 Exam# [id number] Ordering Dr: Irena Gannon EXAM: CT Cervical [...] changes cervical spine as described. Reading Location: [facility] CC: Dr. Ed Bowman MD; CROW Cooper ~ Chemical Pumper: Signed [facility] 11-26-2024 Radiology Diagnostic study note [facility] Imaging Services [address] [place] [address] Brain/Head without Contrast MR#: [id number] Acct: [id number] Name: BARBARA GLASS Rep #: [id number] : 1950 F 74 From: Laura Mora MD PCP: Dr. Ed Bowman MD Status: REG E R Study:Brain/Head without Contrast Date of Exa m: 11/26/24 Exam# [id number] Ordering Dr: Irena Gannon EXAM: CT Head [...] change from the prior exam. Reading Location: [facility] CC: Dr. Ed Bowman MD; CROW Cooper ~ Chemical Pumper: Signed [facility] 11-26-2024 Discharge summary Note Date/Time November 26, 2024 4:29pm [facility] Medical Records Department [address] [place] [address] Emergency Department Summary 11/26/24 MR#: [id number] Acct: [id number] Name: BARBARA GLASS Rep #:[id number] : 1950 74 From: Irena MARIA PCP: Dr. Ed Bowman MD Status:REG E R Location: ED <Statement entered by Ryan Akers DO - 11/26/24 16:29> Patient was seen and examined with physician assistant professor of history Qian All components of the history and [...] in stable condition Supervising attending attestation: Ryan MAR History of Present Illness Chief Complaint: Fall [...] no LOC. She is able to ambulate. [facility] Medical History DVT (deep venous thrombosis) Staphylococcus [...] change from the prior exam. Reading Location: [facility] Cervical Spine CT 11/26/24 14:35 IMPRESSION: 1. No acute fracture. 2. No significant change from the prior exam. 3. Degenerative changes cervical spine as described. Reading Location: [facility] Discharge Plan Triage Chief Complaint: [...] return for any other concerns. Print Language: South African Disposition Disposition: Home, Self Care What to do if you have Problems For any increased pain, shortness of breath, bleeding, nausea or vomiting, chestpain, or any unexpected problems, contact your Primary Care Provider. Call [facility] ([phone]) or report to the closest Emergency Room. Call 911 if necessary. 11/26/24 1618 <Electronically signed by Irena MARIA> Cosigner Signature (if applicable): 11/26/24 162 <Electronically signed by Ryan Akers DO> CC: Dr. 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 Ed Bowman MD Status: REG E R Study:Brain/Head without Contrast Date of Exa m: 09/16/24 Exam# [id number] Ordering Dr: Amber Pelaez DO EXAM: BRAIN/HEAD [...] ischemic changes and age-related changes. Reading Location: [facility] CC: Dr. Samia Pelaez DO; Dr. 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 Author Type: Nurse Practitioner Type: Progress Notes Filed: 02/21/2021 11:45 AM Note Text: Subjective HPI Nontoxic appearing female presents urgent care chief complaint left second digit laceration. Duration of symptoms greater than 3 days. 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 gpmmpftrrrw-J4-Gyjmohmli serr (OSTEO BI-FLEX, 5-LOXIN,) 1,500-400-100 mg-unit-mg tab Take 1 tablet by mouth once daily. LIDOCAINE (PF) 100 MG/ML (10 %) IV Not sure of dose, IV lidocaine infusion once monthly FAMILY HISTORY Problem Relation Age of Onset - Heart Mother [place] - Cancer Father Lung - Heart Sister [place], stents Social History Tobacco Use - Smoking [...] agrees with plan of care. Pete Melvin APRN.[facility] complaint+Reason for visit Narrative* Chief Complaint COVID-19 INJURY OF HEAD [facility] Work Phone: Discharge summary Author Dc Francis [facility] Note Date/Time December 05, 2024 9:40a m [facility] Medical Records Department [address] [place] [address] Emergency Department Summary 12/05/24 MR#: [id number] Acct: [id number] Name: BARBARA GLASS Rep #:[id number] : 1950 74 From: Dc riosett DO PCP: Dr. Ed Bowman MD Status:REG [...] 15 Psych: Cooperative, appropriate mood and affect [facility] Medical History DVT (deep venous thrombosis) Staphylococcus [...] acute traumatic injury. Patient tolerated lance well. [place] need to be removed and 10 to [...] CHRONIC CHANGES. NO ACUTE FINDINGS. Reading Location: [facility] 12/05/24 08:39 IMPRESSION: DEGENERATIVE CHANGES OF THE CERVICAL SPINE. NO EVIDENCE OF SIGNIFICANT OSSEOUS CENTRAL CANAL OR NEURAL FORAMINAL STENOSIS. Reading Location: [facility] Discharge Plan Triage Chief Complaint: Fall ED Provider: Dc Francis Dx/Rx/DC Orders Clinical Impression: Laceration of scalp, Closed head injury, Fall Instructions: ED Laceration Scalp Stitches or Lance, ED Fall Prevention Prescriptions: No Action cholecalciferol [...] Restrictions/Additional Instructions: Follow-up with primary care physician. [place] need to be removed in 10 to 14 days. Print Language: South African Disposition Disposition: Home, Self Care What to do if you have Problems For any increased pain, shortness of breath, bleeding, nausea or vomiting, chestpain, or any unexpected problems, contact your Primary Care Provider. Call [facility] ([phone]) or report to the closest Emergency Room. Call 911 if necessary. 12/05/24 0940 <Electronically signed by Dc Francis DO> Cosigner Signature (if applicable): CC: Dr. Ed Bowman MD ~ Signed [facility] Work Phone: Evaluation noteNo assessment information available [facility] Work Phone: Hospital Discharge instructions Additional Instructions Take the antibiotics until finished. Please continue to follow-up.[facility] Work Phone: Hospital Discharge instructions Additional Instructions Follow-up with your PCP and return for any other concerns.[facility] Work Phone: Hospital Discharge instructions Additional Instructions Follow-up with primary care physician. [place] need to be removed in 10 to 14 days.[facility] Work Phone: Hospital Discharge instructionsAdditional Instructions Follow-up with orthopedics regarding your right humerus fracture. Ice the area. You can take Tylenol as needed for pain as well as the oxycodone as needed. Return for any other concerns.[facility] Work Phone: Reason for referral (narrative)No reason for referral information availableWSelect [facility] Work Phone: Summary Purpose Family History Relationship Condition Age at Onset Recorded Date/T wesley Unknown Family History?No pertinent history Unkno wn October 13, 2017 1:55am Family History?No pertinent history Unkno wn October 13, 2017 1:55am Relationship Condition Age at Onset Recorded Date/T wesley mother Myocardial infarction Unknown sister Diabetes mellitus Unknown Malignant neoplasm Unknown father Malignant neoplasm Unknown Advance Directives Advance Directive Response Recorded Date/ Time Living Will No February 21 12:17pm Power of Sales Account Representative No February 21, 12:17pm Advance Directive Response Recorded Date/ Time Living Will No April 27 11:58am Power of Sales Account Representative No April 27, 2022 11:58am Advance Directive Response Recorded Date/ Time Living Will No January 30, 2023 12:20pm Power of Sales Account Representative No January 30 12:20pm Advance Directive Response Recorded Date/ Time Living Will No January 30, 2023 11:20am Power of Sales Account Representative No January 30 11:20am Advance Directive Response Recorded Date/ Time Living Will Yes March 12 3:38pm Power of Sales Account Representative Yes March 12, 2024 3:38pm Living Will Yes January 10, 2024 1 0:07am Power of Sales Account Representative Yes January 10, 2024 10:07am Living Will No June 04 6:44pm Power of Sales Account Representative No June 04, 2024 6:44pm Living Will No September 16, 2024 12:00pm Power of Sales Account Representative No September 16 12:00pm Advance Directive Response Recorded Date/ Time Living Will Yes March 12 4:38pm Power of Sales Account Representative Yes March 12, 2024 4:38pm Living Will Yes January 10, 2024 1 1:07am Power of Sales Account Representative Yes January 10, 2024 11:07am Living Will No June 04 7:44pm Power of Sales Account Representative No June 04, 2024 7:44pm Living Will No September 16, 2024 1:00pm Power of Sales Account Representative No September 16 1:00pm Advance Directive Response Recorded Date/ Time Living Will Yes March 12 4:38pm Do you have a Healthcare Power of Sales Account Representative? Yes March 12, 2024 4:38pm Living Will No September 16, 2024 1:00pm Do you have a Healthcare Power of Sales Account Representative? No September 16, 2024 1:00pm Do you have a Healthcare Power of Sales Account Representative? No November 05, 2024 1:28pm Advance Directive Response Recorded Date/ Time Living Will Yes March 12 4:38pm Do you have a Healthcare Power of Sales Account Representative? Yes March 12, 2024 4:38pm Living Will No September 16, 2024 1:00pm Do you have a Healthcare Power of Sales Account Representative? No September 16, 2024 1:00pm Do you have a Healthcare Power of Sales Account Representative? No November 05, 2024 1:28pm Do you have a Healthcare Power of Sales Account Representative? No November 26, 2024 2:49pm Advance Directive Response Recorded Date/ Time Do you have a Healthcare Power of Sales Account Representative? No December 05, 2024 8:35am Living Will Yes Erin 1st, 2 024 4:38pm Do you have a Healthcare Power of Sales Account Representative? Yes March 12, 2024 4:38pm Living Will No September 16, 2024 1:00pm Do you have a Healthcare Power of Sales Account Representative? No September 16, 2024 1:00pm Do you have a Healthcare Power of Sales Account Representative? No November 05, 2024 1:28pm Do you have a Healthcare Power of Sales Account Representative? No November 26, 2024 2:49pm Advance Directive Response Recorded Date/ Time Do you have a Healthcare Power of Sales Account Representative? No December 05, 2024 8:35am Do you have a Healthcare Power of Sales Account Representative? Yes January 01, 2025 1:43pm Living Will Yes March 12 4:38pm Do you have a Healthcare Power of Sales Account Representative? Yes March 12, 2024 4:38pm Living Will No September 16, 2024 1:00pm Do you have a Healthcare Power of Sales Account Representative? No September 16, 2024 1:00pm Do you have a Healthcare Power of Sales Account Representative? No November 05, 2024 1:28pm Do you have a Healthcare Power of Sales Account Representative? No November 26, 2024 2:49pm Advance Directive Response Recorded Date/ Time Do you have a Healthcare Power of Sales Account Representative? No December 05, 2024 8:35am Do you have a Healthcare Power of Sales Account Representative? Yes January 01, 2025 1:43pm Living Will Yes March 12 4:38pm Do you have a Healthcare Power of Sales Account Representative? Yes March 12, 2024 4:38pm Do you have a Healthcare Power of Sales Account Representative? No November 05, 2024 1:28pm Do you have a Healthcare Power of Sales Account Representative? No November 26, 2024 2:49pm Do you have a Healthcare Power of Sales Account Representative? Yes February 02, 2025 4:33pm Advance Directive Response Recorded Date/ Time Do you have a Healthcare Power of Sales Account Representative? No December 05, 2024 8:35am Do you have a Healthcare Power of Sales Account Representative? Yes January 01, 2025 1:43pm Do you have a Healthcare Power of Sales Account Representative? Yes March 08, 2025 1:02pm Name of Medical Power of Sales Account Representative Kale Glass March 08, 2025 1:02pm Living Will Yes March 12, 2 024 4:38pm Do you have a Healthcare Power of Sales Account Representative? Yes March 12, 2024 4:38pm Do you have a Healthcare Power of Sales Account Representative? No November 26, 2024 2:49pm Do you have a Healthcare Power of Sales Account Representative? Yes February 02, 2025 4:33pm Chief Complaint and Reason for Visit Chief [...] am fall December 05, 2024 8:31a m Chief Complaint Admit Date HEAD INJURY September 16, 2024 11:5 0am [facility] September 25, 2024 12: 20pm weakness,fall November 05, 2024 1:2 1pm MED ONC November 20, 2024 1:45p m [facility] -SWITCHED TO DR Martinez November 20 2:06pm fall November 26, 2024 2:13p m SCREENING November 29, 2024 10:29 am fall December 05, 2024 8:31a m Unspecified injury of head, initial enco unter December 12, 2024 11:01am Chief Complaint Admit Date HEAD INJURY September 16, 2024 11:5 0am [facility] September 25, 2024 12: 20pm weakness,fall November 05, 2024 1:2 1pm MED ONC November 20, 2024 1:45p m [facility] -SWITCHED TO DR Martinez November 20 2:06pm fall November 26, 2024 2:13p m SCREENING November 29, 2024 10:29 am fall December 05, 2024 8:31a m Unspecified injury of head, initial enco unter December 12, 2024 11:01am head injury January 01, 2025 1:42 pm Chief Complaint Admit Date weakness,fall November 05, 2024 1:2 1pm MED ONC November 20, 2024 1:45p m [facility] -SWITCHED TO DR Martinez November 20 2:06pm fall November 26, 2024 2:13p m SCREENING November 29, 2024 10:29 am fall December 05, 2024 8:31a m Unspecified injury of head, initial enco unter December 12, 2024 11:01am head injury January 01, 2025 1:42 pm GEN ILL February 02, 2025 2:23 pm Reason for Visit Admit Date Pulmonary embolism and infarction November 202024 2:06pm Chief Complaint Admit Date MED ONC November 20, 2024 1:45p m [facility] -SWITCHED TO DR Martinez November 20 2:06pm fall November 26, 2024 2:13p m SCREENING November 29, 2024 10:29 am fall December 05, 2024 8:31a m Unspecified injury of head, initial enco unter December 12, 2024 11:01am head injury January 01, 2025 1:42 pm GEN ILL February 02, 2025 2:23 pm FALL, RIGHT ARM FRACTURE, GENERALIZED WE AKNESS March 08, 2025 5:32pm Additional Source Comments INFORMATION SOURCE (unrecogn ized section and content) DATE CREATED AUTHOR 08/24/2021 [facility] DATE CREATED AUTHOR AUTHOR'S ORGANIZ ATION 08/28/2021 [facility] DATE CREATED AUTHOR AUTHOR'S ORGANIZ ATION 02/10/2025 [facility] DATE CREATED AUTHOR AUTHOR'S ORGANIZ ATION 02/28/2025 [facility] Goals (unrecognized section and content) Goals may [...] November 29, 2024 End: November 29, 2024 Team Status: Inactive Member Role Status Dates Dr. Ed Bowman MD Primary Care Provider Active Start: December 05, 2024 End: December 05, 2024 Dr. Dc Francis DO Attending Provider Activ e Start: December 05, 2024 End: December 05, 2024 Dr. Dc Francis DO Emergency Provider Activ e Start: December 05, 2024 End: December 05, 2024 Team Status: Inactive Member Role Status Dates Dr. Ed Bowman MD Primary Care Provider Active Start: December 11, 2024 End: December 11, 2024 Dr. Ed Bowman MD Attending Provider Active Start: December 11, 2024 End: December 11, 2024 Dr. Ed Bowman MD Referring Provider Active Start: December 11, 2024 End: December 11, 2024 Team Status: Active Member Role Status Dates Dr. Ed Bowman MD Primary Care Provider Active Start: December 12, 2024 Dr. Ed Bowman MD Attending Provider Active Start: December 12, 2024 Dr. Ed Bowman MD Referring Provider Active Start: December 12, 2024 Team Status: Inactive Member Role Status Dates Dr. Ed Bowman MD Primary Care Provider Active Start: December 12, 2024 End: December 12, 2024 Dr. Ed Bowman MD Attending Provider Active Start: December 12, 2024 End: December 12, 2024 Dr. Ed Bowman MD Referring Provider Active Start: December 12, 2024 End: December 12, 2024 Team Status: Inactive Member Role Status Dates Dr. Ed Bowman MD Primary Care Provider Active Start: January 01, 2025 End: January 01, 2025 Dr. Samia Pelaez DO Emergency Provider Active S tart: January 01, 2025 End: January 01, 2025 Team Status: Active Member Role/Relationship Status Dates Dr. Ed Bowman MD Primary Care Provider Active Team Status: Inactive Member Role/Relationship Status Dates Dr. Ed Bowman MD Primary Care Provider Active Start: November 05, 2024 End: November 05, 2024 Dr. Yue Gonzalez DO Attending Provider Active Start: November 05, 2024 End: November 05, 2024 Dr. Yue Gonzalez DO Emergency Provider Active Start: November 05, 2024 End: November 05, 2024 Team Status: Inactive Member Role/Relationship Status Dates Dr. Ed Bowman MD Primary Care Provider Active Start: November 09, 2024 End: November 09, 2024 Dr. Ed Bowman MD Attending Provider Active Start: November 09, 2024 End: November 09, 2024 Dr. Ed Bowman MD Referring Provider Active Start: November 09, 2024 End: November 09, 2024 Team Status: Active Member Role/Relationship Status Dates Dr. Ed Bowman MD Primary Care Provider Active Start: November 20, 2024 Dr. Nelson Hobson MD Attending Provider Active S tart: November 20, 2024 Dr. Nelson Hobson MD Referring Provider Active S tart: November 20, 2024 Team Status: Inactive Member Role/Relationship Status Dates Dr. Ed Bowman MD Primary Care Provider Active Start: November 20, 2024 End: November 20, 2024 Dr. Ed Bowman MD Referring Provider Active Start: November 20, 2024 End: November 20, 2024 Dr. Ke Saeed MD Attending Provider Active Start: November 20, 2024 End: November 20, 2024 Team Status: Inactive Member Role/Relationship Status Dates Dr. Ed Bowman MD Attending Provider Active Start: November 21, 2024 End: November 21, 2024 Dr. Ed Bowman MD Referring Provider Active Start: November 21, 2024 End: November 21, 2024 Team Status: Inactive Member Role/Relationship Status Dates Dr. Ed Bowman MD Primary Care Provider Active Start: November 26, 2024 End: November 26, 2024 Dr. Ryan Akers DO Attending Provider Active Start: November 26, 2024 End: November 26, 2024 Dr. Ryan Akers DO Emergency Provider Active Start: November 26, 2024 End: November 26, 2024 Team Status: Inactive Member Role/Relationship Status Dates Dr. Ed Bowman MD Primary Care Provider Active Start: November 29, 2024 End: November 29, 2024 Dr. Ke Saeed MD Attending Provider Active Start: November 29, 2024 End: November 29, 2024 Dr. Ke Saeed MD Referring Provider Active Start: November 29, 2024 End: November 29, 2024 Team Status: Inactive Member Role/Relationship Status Dates Dr. Ed Bowman MD Primary Care Provider Active Start: December 05, 2024 End: December 05, 2024 Dr. Dc Francis DO Attending Provider Activ e Start: December 05, 2024 End: December 05, 2024 Dr. Dc Francis DO Emergency Provider Activ e Start: December 05, 2024 End: December 05, 2024 Team Status: Inactive Member Role/Relationship Status Dates Dr. Ed Bowman MD Primary Care Provider Active Start: December 11, 2024 End: December 11, 2024 Dr. Ed Bowman MD Attending Provider Active Start: December 11, 2024 End: December 11, 2024 Dr. Ed Bowman MD Referring Provider Active Start: December 11, 2024 End: December 11, 2024 Team Status: Inactive Member Role/Relationship Status Dates Dr. Ed Bowman MD Primary Care Provider Active Start: December 12, 2024 End: December 12, 2024 Dr. Ed Bowman MD Attending Provider Active Start: December 12, 2024 End: December 12, 2024 Dr. Ed Bowman MD Referring Provider Active Start: December 12, 2024 End: December 12, 2024 Team Status: Inactive Member Role/Relationship Status Dates Dr. Ed Bowman MD Primary Care Provider Active Start: January 01, 2025 End: January 01, 2025 Dr. Samia Pelaez DO Attending Provider Active S tart: January 01, 2025 End: January 01, 2025 Dr. Samia Pelaez DO Emergency Provider Active S tart: January 01, 2025 End: January 01, 2025 Team Status: Inactive Member Role/Relationship Status Dates Dr. Ed Bowman MD Primary Care Provider Active Start: February 02, 2025 End: February 02, 2025 Dr. Neptali Dacosta DO Emergency Provider Active Start: February 02, 2025 End: February 02, 2025 Team Status: Inactive Member Role/Relationship Status Dates Dr. Ed Bowman MD Primary Care Provider Active Start: February 22, 2025 End: February 22, 2025 Dr. Ed Bowman MD Attending Provider Active Start: February 22, 2025 End: February 22, 2025 Dr. Ed Bowman MD Referring Provider Active Start: February 22, 2025 End: February 22, 2025 Team Status: Inactive Member Role/Relationship Status Dates Dr. Ed Bowman MD Primary Care Provider Active Start: November 09, 2024 End: November 09, 2024 Dr. Ed Bowman MD Attending Provider Active Start: November 09, 2024 End: November 09, 2024 Dr. Ed Bowman MD Referring Provider Active Start: November 09, 2024 End: November 09, 2024 Team Status: Active Member Role/Relationship Status Dates Dr. Ed Bowman MD Primary Care Provider Active Start: November 20, 2024 Dr. Nelson Hobson MD Attending Provider Active S tart: November 20, 2024 Dr. Nelson Hobson MD Referring Provider Active S tart: November 20, 2024 Team Status: Inactive Member Role/Relationship Status Dates Dr. Ed Bowman MD Primary Care Provider Active Start: November 20, 2024 End: November 20, 2024 Dr. Ed Bowman MD Referring Provider Active Start: November 20, 2024 End: November 20, 2024 Dr. Ke Saeed MD Attending Provider Active Start: November 20, 2024 End: November 20, 2024 Team Status: Inactive Member Role/Relationship Status Dates Dr. Ed Bowman MD Attending Provider Active Start: November 21, 2024 End: November 21, 2024 Dr. Ed Bowman MD Referring Provider Active Start: November 21, 2024 End: November 21, 2024 Team Status: Inactive Member Role/Relationship Status Dates Dr. Ed Bowman MD Primary Care Provider Active Start: November 26, 2024 End: November 26, 2024 Dr. Ryan Akers DO Attending Provider Active Start: November 26, 2024 End: November 26, 2024 Dr. Ryan Akers DO Emergency Provider Active Start: November 26, 2024 End: November 26, 2024 Team Status: Inactive Member Role/Relationship Status Dates Dr. Ed Bowman MD Primary Care Provider Active Start: November 29, 2024 End: November 29, 2024 Dr. Ke Saeed MD Attending Provider Active Start: November 29, 2024 End: November 29, 2024 Dr. Ke Saeed MD Referring Provider Active Start: November 29, 2024 End: November 29, 2024 Team Status: Inactive Member Role/Relationship Status Dates Dr. Ed Bowman MD Primary Care Provider Active Start: December 05, 2024 End: December 05, 2024 Dr. Dc Francis DO Attending Provider Activ e Start: December 05, 2024 End: December 05, 2024 Dr. Dc Francis DO Emergency Provider Activ e Start: December 05, 2024 End: December 05, 2024 Team Status: Inactive Member Role/Relationship Status Dates Dr. Ed Bowman MD Primary Care Provider Active Start: December 11, 2024 End: December 11, 2024 Dr. Ed Bowman MD Attending Provider Active Start: December 11, 2024 End: December 11, 2024 Dr. Ed Bowman MD Referring Provider Active Start: December 11, 2024 End: December 11, 2024 Team Status: Inactive Member Role/Relationship Status Dates Dr. Ed Bowman MD Primary Care Provider Active Start: December 12, 2024 End: December 12, 2024 Dr. Ed Bowman MD Attending Provider Active Start: December 12, 2024 End: December 12, 2024 Dr. Ed Bowman MD Referring Provider Active Start: December 12, 2024 End: December 12, 2024 Team Status: Inactive Member Role/Relationship Status Dates Dr. Ed Bowman MD Primary Care Provider Active Start: January 01, 2025 End: January 01, 2025 Dr. Samia Pelaez DO Attending Provider Active S tart: January 01, 2025 End: January 01, 2025 Dr. Samia Pelaez DO Emergency Provider Active S tart: January 01, 2025 End: January 01, 2025 Team Status: Inactive Member Role/Relationship Status Dates Dr. Ed Bowman MD Primary Care Provider Active Start: February 02, 2025 End: February 02, 2025 Dr. Neptali Dacosta DO Attending Provider Active Start: February 02, 2025 End: February 02, 2025 Dr. Neptali Dacosta DO Emergency Provider Active Start: February 02, 2025 End: February 02, 2025 Team Status: Active Member Role/Relationship Status Dates Dr. Ed Bowman MD Primary Care Provider Active Start: March 08, 2025 Dr. Narda Duckworth MD Emergency Provider Active S tart: March 08, 2025 Dr. Rubi Freire MD Admit Provider Active Star t: March 08, 2025 Dr. Rubi Freire MD Attending Provider Active Start: March 08, 2025 FOR RECORDS PERTAINING TO PATIENTS WHO ARE [...] BE BASED ON THE PRIMARY CLINICAL RECORDS. [employer] [facility]. provides no warranty or guarantee of the accuracy or completeness of information in this document.
--- OUTSIDE RECORDS SUMMARY | 2025-03-08 20:24 | XMS RPT_ITS | CCD ---
Author Organization [facility] CliniSyde Care Team Providers Care Hitcher Name Role Phone Colby CUENCA, Dr. Ed [...] Dr. Dempsey Referring Provider [facility], Dr. Irwin Emergency Provider [facility], Dr. Irwin Attending Provider Colby CUENCA, Dr. Ed Michaud Primary Care Provider [phone] Colby CUENCA, Dr. Ed Michaud Attending Provider [phone] Colby CUENCA, Dr. Ed Michaud Referring Provider Jazlyn CUENCA, Dr. Damon Attending Provider [phone], Dr. Gracia Attending Provider Benigno , Dr. Gracia Emergency Provider [phone] [facility], Dr. Gunderson Emergency Provider Simona Mo [...] Unavailable Colby, Ed Chi Primary Care Unavailable ElloreeNeptali mendez Attending Unavailable Johns, Roxana Referring Unavailable [...] Provider Dr. Neptali Dacosta DO Attending Provider [phone] Donita CUENCA, Dr. Laboy Emergency Provider Unavailab [...] PO DAILY March 08, 2025 12:00am thyroid (long term) 15 mg oral tablet (6 sources) Start: 04-27-2022 take 1 tablet by mouth once daily Thyroid (Pork) (Embedded Systems Designer Thyroid) 15 mg Tablet Active 15 MG [...] 12:00am February 23, 2024 1:32pm Thyroid (Pork) (Embedded Systems Designer Thyroid) 15 mg Tablet (11 sources) Start: 04-27-2022 End: 02-23-2024 take 1 tablet by mouth once daily Thyroid (Pork) (Embedded Systems Designer Thyroid) 15 mg Tablet Discontinued 15 mg PO DAILY April 27, 2022 12:00am February 23, 2024 1:32pm Thyroid Start: 04-27-2022 End: 02-23-2024 take 1 tablet by mouth once daily Thyroid (Pork) (Embedded Systems Designer Thyroid) 15 mg Tablet Discontinued 15 mg PO DAILY April 27, 2022 12:00am February 23, 2024 1:32pm Start: 04-27-2022 End: 02-23-2024 take 1 tablet by mouth once daily Thyroid (Pork) (Embedded Systems Designer Thyroid) 15 mg Tablet Discontinued 15 mg [...] sources) Long-term current use of anticoagulant; 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] 01-18-2024 Episodic Other [...] Onset: 03-14-2024 Episodic Other aftercare (1 source) MCC (current) use of anticoagulants; Translations: [MCC (current) use of anticoagulants] Onset: 06-05-2024 Episodic [...] Auto (Unsp spec) [#/Vol] 1.68 10*3/uL 0.83-4.51 [facility] Absolute neutrophil countOrd ered By: Irena Gill on 03-08-2025 Neutrophils (Bld) [#/Vol] 6.6 10*3/uL 2.0-7.7 [facility] Anion gap in Serum or Plasma Ordered By: Irena Gill on 03-08-2025 Anion gap [Moles/Vol] 11 mmol/L 5-15 [facility] Automated lymphocyte count a s percentage of total leukocytesOrdered By: Irena Gill on 03-08-2025 Lymphocytes/100 WBC Auto (Unsp spec) 18.0 % Low 19-41 [facility] BUN/creatinine ratioOrdered By: Irena Gill on 03-08-2025 Urea nitrogen/Creatinine [Mass ratio] 25.6 mg/mg High 10-20 [facility] Basophil percentageOrdered B y: Irena Gill on 03-08-2025 Basophils/100 WBC (Bld) 0.5 % 0-1 [facility] Carbon dioxide, total [Moles /volume] in Central venous bloodOrdered By: Irena Gill on 03-08-2025 CO2 [Moles/Vol] 25.8 mmol/L 21.0-32.0 [facility] Chloride assayOrdered By: Caitlin Gill on 03-08-2025 Chloride [Moles/Vol] 105 mmol/L 98-108 [facility] Eosinophil percentageOrdered By: Irena Gill on 03-08-2025 Eosinophils/100 WBC (Bld) 0.4 % 0-5 [facility] Erythrocyte distribution wid th ratioOrdered By: Irena Gill on 03-08-2025 Erythrocyte distribution width (RBC) [Ratio] 13.6 % 11.6-14.6 [facility] Erythrocyte distribution wid th standard deviationOrdered By: Irena Gill on 03-08-2025 Erythrocyte distribution width (RBC) [Ratio] 43.9 fl 35.1-43.9 [facility] Glomerular filtration rate ( GFR) estimation/1.73 sq m using serum, plasma, or whole bOrdered By: Irena iGll on 03-08-2025 GFR/1.73 sq M.predicted among non-blacks MDRD (S/P/Bld) [Vol rate/Area] 62 mL/min/{1.73_m2} >60 [facility] Comment on above: mL/min/1.73m2 CKD-EP I Creatinine Equation (2020) Hematocrit Auto (Bld) [Volum e fraction]Ordered By: Irena Gill on 03-08-2025 Hematocrit (Bld) [Volume fraction] 41.4 % 37-47 [facility] Hemoglobin measurementOrdere d By: Irena Gill on 03-08-2025 Hemoglobin (Bld) [Mass/Vol] 14.0 g/dL 12.0-15.0 [facility] Immature granulocytes/100 WB C Auto (Bld)Ordered By: Irena Gill on 03-08-2025 Immature granulocytes/100 WBC (Bld) 1.300 % High 0.0-0.9 [facility] Comment on above: IG% - Immature [...] MCH (RBC) [Entitic mass] 30.2 pg 27.0-32.0 [facility] Mean corpuscular hemoglobin concentration (MCHC) determinationOrdered By: Irena Gill on 03-08-2025 MCHC (RBC) [Mass/Vol] 33.8 g/dL 32-36 [facility] Mean platelet volume determi nationOrdered By: Irena Gill on 03-08-2025 Platelet mean volume (Bld) [Entitic vol] 9.4 fL 6.2-12.0 [facility] Monocyte percentageOrdered B y: Irena Gill on 03-08-2025 Monocytes/100 WBC (Bld) 8.7 % 0-10 [facility] Neutrophil percentageOrdered By: Irena Gill on 03-08-2025 Neutrophils/100 WBC (Bld) 71.1 % High 47-70 [facility] Nucleated red blood cell per centageOrdered By: Irena Gill on 03-08-2025 Nucleated RBC/100 WBC (Bld) [Ratio] 0 % 0-5 [facility] Platelet countOrdered By: Caitlin Gill on 03-08-2025 Platelets (Bld) [#/Vol] 241 10*3/uL 150-450 [facility] Potassium measurement (mass/ volume)Ordered By: Irena Gill on 03-08-2025 Potassium (Unsp spec) [Mass/Vol] 3.5 mmol/L 3.3-5.1 [facility] Comment on above: Hemolysis present, R esults could be affected. RBC Auto (Bld) [#/Vol]Ordere d By: Irena Gill on 03-08-2025 RBC (Bld) [#/Vol] 4.64 10*6/uL 4.2-5.4 [facility] Serum creatinine measurement (mass/volume)Ordered By: Irena Gill on 03-08-2025 Creatinine [Mass/Vol] 0.95 mg/dL 0.70-1.20 [facility] Serum glucose measurement (m ass/volume)Ordered By: Irena Gill on 03-08-2025 Glucose [Mass/Vol] 132 mg/dL High 70-99 [facility] Serum or plasma calcium raine urement (mass/volume)Ordered By: Irena Gill on 03-08-2025 Calcium [Mass/Vol] 9.1 mg/dL 7.6-11.0 [facility] Serum or plasma urea nitroge n measurement (mass/volume)Ordered By: Irena Gill on 03-08-2025 Urea nitrogen [Mass/Vol] 24 mg/dL High 4-19 [facility] Sodium levelOrdered By: Anton Gill on 03-08-2025 Sodium [Moles/Vol] 142 mmol/L 133-145 [facility] White blood cell (WBC) count Ordered By: Irena Gill on 03-08-2025 WBC (Bld) [#/Vol] 9.3 10*3/uL 4.4-11.0 [facility] TSH DL <= 0.005 mIU/L QnOrde red By: Ed Bowman on 02-22-2025 TSH Qn 0.955 uIU/mL 0.300-4.200 [facility] Thyroid Stim Hormone (TSH)on 02-22-2025 TSH 0.955 uIU/mL Normal 0.300-4.200 [facility] Comment on above: Performed By: #### L 501.6568 #### [facility] [place], [place], [id number] Absolute lymphocyte countOrd ered By: Neptali Dacosta on 02-02-2025 Lymphocytes Auto (Unsp spec) [#/Vol] 3.79 10*3/uL 0.83-4.51 [facility] Absolute neutrophil countOrd ered By: Neptali Dacosta on 02-02-2025 Neutrophils (Bld) [#/Vol] 9.3 10*3/uL High 2.0-7.7 [facility] Activated partial thrombopla stin time (aPTT) in platelet poor plasma by coagulation aOrdered By: Neptali Dacosta on 02-02-2025 aPTT Coag (PPP) [Time] 23.8 s Low 24.1-36.2 [facility] Anion gap in Serum or Plasma Ordered By: Neptali Dacosta on 02-02-2025 Anion gap [Moles/Vol] 14 mmol/L 5-15 [facility] Automated lymphocyte count a s percentage of total leukocytesOrdered By: Neptali Dacosta on 02-02-2025 Lymphocytes/100 WBC Auto (Unsp spec) 25.1 % - [facility] BUN/creatinine ratioOrdered By: Neptali Dacosta on 02-02-2025 Urea nitrogen/Creatinine [Mass ratio] 24.3 mg/mg High 10- [facility] Basic Metabolic Profile (BMP )on 02-02-2025 BUN/CRE 24.3 RATIO High 04-30 [facility] Comment on above: Performed By: #### L 300.3900, M100.7900, L100.0100, L500.2500, L300.4310 ####[facility] [address] [place], [address] Calcium [Mass/Vol] 9.6 mg/dL Normal 7.6-11.0 [facility] Comment on above: Performed By: #### L 300.3900, M100.7900, L100.0100, L500.2500, L300.4310 ####[facility] [address] [place], [address] Chloride [Moles/Vol] 106 mmol/L Normal 98-108 [facility] Comment on above: Performed By: #### L 300.3900, M100.7900, L100.0100, L500.2500, L300.4310 ####[facility] [address] [place], [address] CO2 [Moles/Vol] 25.9 mmol/L Normal 21.0-32.0 [facility] Comment on above: Performed By: #### L 300.3900, M100.7900, L100.0100, L500.2500, L300.4310 ####[facility] [address] [place], [address] Creatinine [Mass/Vol] 1.11 mg/dL Normal 0.70-1.20 [facility] Comment on above: Performed By: #### L 300.3900, M100.7900, L100.0100, L500.2500, L300.4310 ####[facility] [address] [place], [address] GAP 14 Normal 5-15 [facility] Comment on above: Performed By: #### L 300.3900, M100.7900, L100.0100, L500.2500, L300.4310 ####[facility] [address] [place], [address] GFR/1.73 sq M.predicted among non-blacks MDRD (S/P/Bld) [Vol rate/Area] 52 mL/min/{1.73_m2} Low >60 [facility] Comment on above: Result Comment: mL/m in/1.73m2 CKD-EPI Creatinine Equation (2020) Performed By: #### L 300.3900, M100.7900, L100.0100, L500.2500, L300.4310 ####[facility] [address] [place], [address] Glucose [Mass/Vol] 116 mg/dL High 70-99 [facility] Comment on above: Performed By: #### L 300.3900, M100.7900, L100.0100, L500.2500, L300.4310 ####[facility] [address] [place], [address] Potassium [Moles/Vol] 3.6 mmol/L Normal 3.3-5.1 [facility] Comment on above: Performed By: #### L 300.3900, M100.7900, L100.0100, L500.2500, L300.4310 ####[facility] [address] [place], [address] Sodium [Moles/Vol] 146 mmol/L High 133-145 [facility] Comment on above: Performed By: #### L 300.3900, M100.7900, L100.0100, L500.2500, L300.4310 ####[facility] [address] [place], [address] Urea nitrogen [Mass/Vol] 27 mg/dL High 4-19 [facility] Comment on above: Performed By: #### L 300.3900, M100.7900, L100.0100, L500.2500, L300.4310 ####[facility] [address] [place], [address] Basophil percentageOrdered B y: Neptali Dacosta on 02-02-2024 Basophils/100 WBC (Bld) 0.5 % 0-1 [facility] CBC W/Diff, Automatedon 01-10 Absolute Lymph 3.79 X10 3/uL Normal 0.83-4.51 [facility] Comment on above: Performed By: #### L 300.3900, M100.7900, L100.0100, L500.2500, L300.4310 ####[facility] [address] [place], [address] Absolute Neut 9.3 X10 3/uL High 2.0-7.7 [facility] Comment on above: Performed By: #### L 300.3900, M100.7900, L100.0100, L500.2500, L300.4310 ####[facility] [address] [place], [address] Basophils/100 WBC (Bld) 0.5 % Normal 0-1 [facility] Comment on above: Performed By: #### L 300.3900, M100.7900, L100.0100, L500.2500, L300.4310 ####[facility] [address] [place], [address] Eosinophils/100 WBC (Bld) 0.4 % Normal 0-5 [facility] Comment on above: Performed By: #### L 300.3900, M100.7900, L100.0100, L500.2500, L300.4310 ####[facility] [address] [place], [address] Erythrocyte distribution width (RBC) [Ratio] 13.5 % Normal 11.6-14.6 [facility] Comment on above: Performed By: #### L 300.3900, M100.7900, L100.0100, L500.2500, L300.4310 ####[facility] [address] [place], [address] Hematocrit (Bld) [Volume fraction] 44.6 % Normal 37-47 [facility] Comment on above: Performed By: #### L 300.3900, M100.7900, L100.0100, L500.2500, L300.4310 ####[facility] [address] [place], [address] Hemoglobin (Bld) [Mass/Vol] 14.8 g/dL Normal 12.0-15.0 [facility] Comment on above: Performed By: #### L 300.3900, M100.7900, L100.0100, L500.2500, L300.4310 ####[facility] [address] [place], [address] IG% 2.700 High 0.0-0.9 [facility] Comment on above: Result Comment: IG% - Immature Granulocytes (promyelocytes, myelocytes andmetamyelocytes) > 1% indicates that a LEFT SHIFT is Present. Performed By: #### L 300.3900, M100.7900, L100.0100, L500.2500, L300.4310 ####[facility] [address] [place], [address] Lymphocytes/100 WBC (Bld) 25.1 % Normal 19-41 [facility] Comment on above: Performed By: #### L 300.3900, M100.7900, L100.0100, L500.2500, L300.4310 ####[facility] [address] [place], [address] MCH (RBC) [Entitic mass] 29.7 pg Normal 27.0-32.0 [facility] Comment on above: Performed By: #### L 300.3900, M100.7900, L100.0100, L500.2500, L300.4310 ####[facility] [address] [place], [address] MCHC (RBC) [Mass/Vol] 33.2 g/dL Normal 32-36 [facility] Comment on above: Performed By: #### L 300.3900, M100.7900, L100.0100, L500.2500, L300.4310 ####[facility] [address] [place], [address] MCV (RBC) [Entitic vol] 89.6 fL Normal 81-99 [facility] Comment on above: Performed By: #### L 300.3900, M100.7900, L100.0100, L500.2500, L300.4310 ####[facility] [address] [place], [address] Monocytes/100 WBC (Bld) 9.4 % Normal 0-10 [facility] Comment on above: Performed By: #### L 300.3900, M100.7900, L100.0100, L500.2500, L300.4310 ####[facility] [address] [place], [address] Neutrophils/100 WBC (Bld) 61.9 % Normal 47-70 [facility] Comment on above: Performed By: #### L 300.3900, M100.7900, L100.0100, L500.2500, L300.4310 ####[facility] [address] [place], [address] Nucleated RBC (Bld) [#/Vol] 0 10*3/uL Normal 0-5 [facility] Comment on above: Performed By: #### L 300.3900, M100.7900, L100.0100, L500.2500, L300.4310 ####[facility] [address] [place], [address] Platelet mean volume (Bld) [Entitic vol] 9.7 fL Normal 6.2-12.0 [facility] Comment on above: Performed By: #### L 300.3900, M100.7900, L100.0100, L500.2500, L300.4310 ####[facility] [address] [place], [address] Platelets (Bld) [#/Vol] 284 10*3/uL Normal 150-450 [facility] Comment on above: Performed By: #### L 300.3900, M100.7900, L100.0100, L500.2500, L300.4310 ####[facility] [address] [place], [address] RBC (Bld) [#/Vol] 4.98 10*6/uL Normal 4.2-5.4 [facility] Comment on above: Performed By: #### L 300.3900, M100.7900, L100.0100, L500.2500, L300.4310 ####[facility] [address] [place], [address] RDW SD 44.4 fl High 35.1-43.9 [facility] Comment on above: Performed By: #### L 300.3900, M100.7900, L100.0100, L500.2500, L300.4310 ####[facility] [address] [place], [address] WBC (Bld) [#/Vol] 15.1 10*3/uL High 4.4-11.0 [facility] Comment on above: Performed By: #### L 300.3900, M100.7900, L100.0100, L500.2500, L300.4310 ####[facility] [address] [place], [address] Carbon dioxide, total [Moles /volume] in Central venous bloodOrdered By: Neptali Dacosta on 02-02-2025 CO2 [Moles/Vol] 25.9 mmol/L 21.0-32.0 [facility] Chloride assayOrdered By: Michael Dacosta on 02-02-2025 Chloride [Moles/Vol] 106 mmol/L 98-108 [facility] Emergency Department Summary on 02-02-2025 Emergency Department Summary Normal [facility] Eosinophil percentageOrdered By: Neptali Dacosta on 02-02-2025 Eosinophils/100 WBC (Bld) 0.4 % 0-5 [facility] Erythrocyte distribution wid th ratioOrdered By: Neptali Dacosta on 02-02-2025 Erythrocyte distribution width (RBC) [Ratio] 13.5 % 11.6-14.6 [facility] Erythrocyte distribution wid th standard deviationOrdered By: Neptali Dacosta on 02-02-2025 Erythrocyte distribution width (RBC) [Ratio] 44.4 fl High 35.1-43.9 [facility] Foot min 3 Viewson Foot min 3 Views Normal [facility] Glomerular filtration rate ( GFR) estimation/1.73 sq m using serum, plasma, or whole bOrdered By: Neptali Dacosta on 02-02-2025 GFR/1.73 sq M.predicted among non-blacks MDRD (S/P/Bld) [Vol rate/Area] 52 mL/min/{1.73_m2} Low >60 [facility] Comment on above: mL/min/1.73m2 CKD-EP I Creatinine Equation (2020) Hematocrit Auto (Bld) [Volum e fraction]Ordered By: Neptali Dacosta on 02-02-2025 Hematocrit (Bld) [Volume fraction] 44.6 % 37-47 [facility] Hemoglobin measurementOrdere d By: Neptali Dacosta on 02-02-2025 Hemoglobin (Bld) [Mass/Vol] 14.8 g/dL 12.0-15.0 [facility] Immature granulocytes/100 WB C Auto (Bld)Ordered By: Neptali Dacosta on 02-02-2025 Immature granulocytes/100 WBC (Bld) 2.700 % High 0.0-0.9 [facility] Comment on above: IG% - Immature Granu locytes (promyelocytes, myelocytes and metamyelocytes) > 1% indicates that a LEFT SHIFT is Present. International normalized rat io (INR) calculationOrdered By: Neptali Dacosta on 02-02-2025 INR Coag (Bld) [Relative time] 1.3 {INR} [facility] MCV (mean corpuscular volume ) determinationOrdered By: Neptali Dacosta on 02-02-2025 MCV (RBC) [Entitic vol] 89.6 fL 81-99 [facility] Mean corpuscular hemoglobin (MCH) determinationOrdered By: Neptali Dacosta on 02-02-2025 MCH (RBC) [Entitic mass] 29.7 pg 27.0-32.0 [facility] Mean corpuscular hemoglobin concentration (MCHC) determinationOrdered By: Neptali Dacosta on 02-02-2025 MCHC (RBC) [Mass/Vol] 33.2 g/dL 32-36 [facility] Mean platelet volume determi nationOrdered By: Neptali Dacosta on 02-02-2025 Platelet mean volume (Bld) [Entitic vol] 9.7 fL 6.2-12.0 [facility] Monocyte percentageOrdered B y: Neptali Dacosta on 02-02-2025 Monocytes/100 WBC (Bld) 9.4 % 0-10 [facility] Neutrophil percentageOrdered By: Neptali Dacosta on 02-02-2025 Neutrophils/100 WBC (Bld) 61.9 % 47-70 [facility] Nucleated red blood cell per centageOrdered By: Neptali Dacosta on 02-02-2025 Nucleated RBC/100 WBC (Bld) [Ratio] 0 % 0-5 [facility] Partial Thromboplast Timeon 02-02-2025 aPTT Coag (Bld) [Time] 23.8 s Low 24.1-36.2 [facility] Comment on above: Performed By: #### L 300.3900, M100.7900, L100.0100, L500.2500, L300.4310 ####[facility] [address] [place], [address] Platelet countOrdered By: Michael Dacosta on 02-02-2025 Platelets (Bld) [#/Vol] 284 10*3/uL 150-450 [facility] Potassium measurement (mass/ volume)Ordered By: Neptali Dacosta on 02-02-2025 Potassium (Unsp spec) [Mass/Vol] 3.6 mmol/L 3.3-5.1 [facility] Prothrombin Time w/INRon INR Coag (PPP) [Relative time] 1.3 {INR} Normal [facility] Comment on above: Performed By: #### L 300.3900, M100.7900, L100.0100, L500.2500, L300.4310 ####[facility] [address] [place], [place], [id number] PT Coag (PPP) [Time] 16.0 s High 11.7-14.9 [facility] Comment on above: Performed By: #### L 300.3900, M100.7900, L100.0100, L500.2500, L300.4310 ####[facility] [address] [place], [place], [id number] Prothrombin timeOrdered By: Neptali Dacosta on 02-02-2025 PT Coag (PPP) [Time] 16.0 s High 11.7-14.9 [facility] RBC Auto (Bld) [#/Vol]Ordere d By: Neptali Dacosta on 02-02-2025 RBC (Bld) [#/Vol] 4.98 10*6/uL 4.2-5.4 [facility] Serum creatinine measurement (mass/volume)Ordered By: Neptali Dacosta on 02-02-2025 Creatinine [Mass/Vol] 1.11 mg/dL 0.70-1.20 [facility] Serum glucose measurement (m ass/volume)Ordered By: Neptali Dacosta on 02-02-2025 Glucose [Mass/Vol] 116 mg/dL High 70-99 [facility] Serum or plasma calcium raine urement (mass/volume)Ordered By: Neptali Dacosta on 02-02-2025 Calcium [Mass/Vol] 9.6 mg/dL 7.6-11.0 [facility] Serum or plasma urea nitroge n measurement (mass/volume)Ordered By: Neptali Dacosta on 02-02-2025 Urea nitrogen [Mass/Vol] 27 mg/dL High 4-19 [facility] Sodium levelOrdered By: Neptali Dacosta on 02-02-2025 Sodium [Moles/Vol] 146 mmol/L High 133-145 [facility] Stool Occult Blood iFOBon STOB Positive Normal [facility] Comment on above: Performed By: #### L 300.3900, M100.7900, L100.0100, L500.2500, L300.4310 ####[facility] [address] [place], [address] Stool gastrointestinal hemog lobin detection by immunologic methodOrdered By: Neptali Dacosta on 02-02-2025 Lower GI hemoglobin IA Ql (Stl) Positive Abnormal [facility] Urinalysis, Completeon 02-02 BACTERIA Normal None Seen [facility] Comment on above: Order Comment: CLEAN CATCH Result Comment: DEPA RTED ER Performed By: #### L 400.0001 ####[facility] [address] [place], [place], [address] BILIRUBIN URINE Normal Negative [facility] Comment on above: Order Comment: CLEAN CATCH Result Comment: DEPA RTED ER Performed By: #### L 400.0001 ####[facility] [address] [place], [address] Clarity (U) Normal Clear [facility] Comment on above: Order Comment: CLEAN CATCH Result Comment: DEPA RTED ER Performed By: #### L 400.0001 ####[facility] [address] [place], [address] Color (U) Normal Yellow [facility] Comment on above: Order Comment: CLEAN CATCH Result Comment: DEPA RTED ER Performed By: #### L 400.0001 ####[facility] [address] [place], [address] EPI,SQUAMOUS Normal 5-10 [facility] Comment on above: Order Comment: CLEAN CATCH Result Comment: DEPA RTED ER Performed By: #### L 400.0001 ####[facility] [address] [place], [address] GLUCOSE, UR Normal Normal [facility] Comment on above: Order Comment: CLEAN CATCH Result Comment: DEPA RTED ER Performed By: #### L 400.0001 ####[facility] [address] [place], [address] KETONE UR Normal Negative [facility] Comment on above: Order Comment: CLEAN CATCH Result Comment: DEPA RTED ER Performed By: #### L 400.0001 ####[facility] [address] [place], [address] LEUK ESTERASE Normal Negative [facility] Comment on above: Order Comment: CLEAN CATCH Result Comment: DEPA RTED ER Performed By: #### L 400.0001 ####[facility] [address] [place], [place], [address] Mucus Ql (Urine sed) Normal [facility] Comment on above: Order Comment: CLEAN CATCH Result Comment: DEPA RTED ER Performed By: #### L 400.0001 ####[facility] [address] [place], [address] Nitrite Ql (U) Normal Negative [facility] Comment on above: Order Comment: CLEAN CATCH Result Comment: DEPA RTED ER Performed By: #### L 400.0001 ####[facility] [address] [place], [address] OCCULT BLOOD-UR Normal Negative [facility] Comment on above: Order Comment: CLEAN CATCH Result Comment: DEPA RTED ER Performed By: #### L 400.0001 ####[facility] [address] [place], [address] pH UR Normal 5.0 - 8.0 [facility] Comment on above: Order Comment: CLEAN CATCH Result Comment: DEPA RTED ER Performed By: #### L 400.0001 ####[facility] [address] [place], [address] PROT DIPSTX Normal Negative [facility] Comment on above: Order Comment: CLEAN CATCH Result Comment: DEPA RTED ER Performed By: #### L 400.0001 ####[facility] [address] [place], [address] RBC Normal 0-5 [facility] Comment on above: Order Comment: CLEAN CATCH Result Comment: DEPA RTED ER Performed By: #### L 400.0001 ####[facility] [address] [place], [address] SP.GR. DIPSTX Normal 1.002-1.030 [facility] Comment on above: Order Comment: CLEAN CATCH Result Comment: DEPA RTED ER Performed By: #### L 400.0001 ####[facility] [address] [place], [address] UR Preservative Normal [facility] Comment on above: Order Comment: CLEAN CATCH Result Comment: DEPA RTED ER Performed By: #### L 400.0001 ####[facility] [address] [place], [address] UROBILI Normal Normal [facility] Comment on above: Order Comment: CLEAN CATCH Result Comment: DEPA RTED ER Performed By: #### L 400.0001 ####[facility] [address] [place], [address] WBC Normal 0-5 [facility] Comment on above: Order Comment: CLEAN CATCH Result Comment: DEPA RTED ER Performed By: #### L 400.0001 ####[facility] [address] [place], [address] White blood cell (WBC) count Ordered By: Neptali Dacosta on 02-02-2025 WBC (Bld) [#/Vol] 15.1 10*3/uL High 4.4-11.0 [facility] Brain/Head without Contrasto n 01-01-2025 Brain/Head without Contrast Normal [facility] Emergency Department Summary on 01-01-2025 Emergency Department Summary Normal [facility] Spine Cervical without Contr ason 01-01-2025 Spine Cervical without Contras Normal [facility] Brain/Head without Contrasto n 12-12-2024 Brain/Head without Contrast Normal [facility] Absolute lymphocyte countOrd ered By: Ed Bowman on 12-11-2024 Lymphocytes Auto (Unsp spec) [#/Vol] 3.11 10*3/uL 0.83-4.51 [facility] Absolute neutrophil countOrd ered By: Ed Bowman on 12-11-2024 Neutrophils (Bld) [#/Vol] 5.8 10*3/uL 2.0-7.7 [facility] Activated partial thrombopla stin time (aPTT) in platelet poor plasma by coagulation aOrdered By: Ed Bowman on 12-11-2024 aPTT Coag (PPP) [Time] 25.0 s 24.1-36.2 [facility] Anion gap in Serum or Plasma Ordered By: Ed Bowman on 12-11-2024 Anion gap [Moles/Vol] 12 mmol/L 5-15 [facility] Automated lymphocyte count a s percentage of total leukocytesOrdered By: Ed Bowman on 12-11-2024 Lymphocytes/100 WBC Auto (Unsp spec) 30.2 % 19-41 [facility] BUN/creatinine ratioOrdered By: Ed Bowman on 12-11-2024 Urea nitrogen/Creatinine [Mass ratio] 36.6 mg/mg High 10-20 [facility] Basophil percentageOrdered B y: Ed Bowman on 12-11-2024 Basophils/100 WBC (Bld) 1.0 % 0-1 [facility] Bilirubin, totalOrdered By: Ed Bowman on 12-11-2024 Bilirubin [Mass/Vol] 0.21 mg/dL 0.00-1.30 [facility] CBC W/Diff, Automatedon Absolute Lymph 3.11 X10 3/uL Normal 0.83-4.51 [facility] Comment on above: Performed By: #### L 500.4100, L300.4310, L506.1001, L300.3900, L501.9520, L500.4050, L100.0100 ####[facility] [address] [place], [address] Absolute Neut 5.8 X10 3/uL Normal 2.0-7.7 [facility] Comment on above: Performed By: #### L 500.4100, L300.4310, L506.1001, L300.3900, L501.9520, L500.4050, L100.0100 ####[facility] [address] [place], [address] Basophils/100 WBC (Bld) 1.0 % Normal 0-1 [facility] Comment on above: Performed By: #### L 500.4100, L300.4310, L506.1001, L300.3900, L501.9520, L500.4050, L100.0100 ####[facility] [address] [place], [address] Eosinophils/100 WBC (Bld) 1.3 % Normal 0-5 [facility] Comment on above: Performed By: #### L 500.4100, L300.4310, L506.1001, L300.3900, L501.9520, L500.4050, L100.0100 ####[facility] [address] [place], [address] Erythrocyte distribution width (RBC) [Ratio] 13.6 % Normal 11.6-14.6 [facility] Comment on above: Performed By: #### L 500.4100, L300.4310, L506.1001, L300.3900, L501.9520, L500.4050, L100.0100 ####[facility] [address] [place], [address] Hematocrit (Bld) [Volume fraction] 42.5 % Normal 37-47 [facility] Comment on above: Performed By: #### L 500.4100, L300.4310, L506.1001, L300.3900, L501.9520, L500.4050, L100.0100 ####[facility] [address] [place], [address] Hemoglobin (Bld) [Mass/Vol] 13.9 g/dL Normal 12.0-15.0 [facility] Comment on above: Performed By: #### L 500.4100, L300.4310, L506.1001, L300.3900, L501.9520, L500.4050, L100.0100 ####[facility] [address] [place], [address] IG% 1.900 High 0.0-0.9 [facility] Comment on above: Result Comment: IG% - Immature Granulocytes (promyelocytes, myelocytes andmetamyelocytes) > 1% indicates that a LEFT SHIFT is Present. Performed By: #### L 500.4100, L300.4310, L506.1001, L300.3900, L501.9520, L500.4050, L100.0100 ####[facility] [address] [place], [address] Lymphocytes/100 WBC (Bld) 30.2 % Normal 19-41 [facility] Comment on above: Performed By: #### L 500.4100, L300.4310, L506.1001, L300.3900, L501.9520, L500.4050, L100.0100 ####[facility] [address] [place], [address] MCH (RBC) [Entitic mass] 30.5 pg Normal 27.0-32.0 [facility] Comment on above: Performed By: #### L 500.4100, L300.4310, L506.1001, L300.3900, L501.9520, L500.4050, L100.0100 ####[facility] [address] [place], [address] MCHC (RBC) [Mass/Vol] 32.7 g/dL Normal 32-36 [facility] Comment on above: Performed By: #### L 500.4100, L300.4310, L506.1001, L300.3900, L501.9520, L500.4050, L100.0100 ####[facility] [address] [place], [address] MCV (RBC) [Entitic vol] 93.2 fL Normal 81-99 [facility] Comment on above: Performed By: #### L 500.4100, L300.4310, L506.1001, L300.3900, L501.9520, L500.4050, L100.0100 ####[facility] [address] [place], [address] Monocytes/100 WBC (Bld) 9.3 % Normal 0-10 [facility] Comment on above: Performed By: #### L 500.4100, L300.4310, L506.1001, L300.3900, L501.9520, L500.4050, L100.0100 ####[facility] [address] [place], [address] Neutrophils/100 WBC (Bld) 56.3 % Normal 47-70 [facility] Comment on above: Performed By: #### L 500.4100, L300.4310, L506.1001, L300.3900, L501.9520, L500.4050, L100.0100 ####[facility] [address] [place], [address] Nucleated RBC (Bld) [#/Vol] 0 10*3/uL Normal 0-5 [facility] Comment on above: Performed By: #### L 500.4100, L300.4310, L506.1001, L300.3900, L501.9520, L500.4050, L100.0100 ####[facility] [address] [place], [address] Platelet mean volume (Bld) [Entitic vol] 9.6 fL Normal 6.2-12.0 [facility] Comment on above: Performed By: #### L 500.4100, L300.4310, L506.1001, L300.3900, L501.9520, L500.4050, L100.0100 ####[facility] [address] [place], [address] Platelets (Bld) [#/Vol] 289 10*3/uL Normal 150-450 [facility] Comment on above: Performed By: #### L 500.4100, L300.4310, L506.1001, L300.3900, L501.9520, L500.4050, L100.0100 ####[facility] [address] [place], [address] RBC (Bld) [#/Vol] 4.56 10*6/uL Normal 4.2-5.4 [facility] Comment on above: Performed By: #### L 500.4100, L300.4310, L506.1001, L300.3900, L501.9520, L500.4050, L100.0100 ####[facility] [address] [place], [address] RDW SD 46.5 fl High 35.1-43.9 [facility] Comment on above: Performed By: #### L 500.4100, L300.4310, L506.1001, L300.3900, L501.9520, L500.4050, L100.0100 ####[facility] [address] [place], [address] WBC (Bld) [#/Vol] 10.3 10*3/uL Normal 4.4-11.0 [facility] Comment on above: Performed By: #### L 500.4100, L300.4310, L506.1001, L300.3900, L501.9520, L500.4050, L100.0100 ####[facility] [address] [place], [address] Calculated very low density lipoprotein (VLDL) cholesterol measurementOrdered By: Ed Bowman on 12-11-2024 Calculated very low density lipoprotein (VLDL) cholesterol measurement 56 mg/dL High 5-40 [facility] Carbon dioxide, total [Moles /volume] in Central venous bloodOrdered By: Ed Bowman on 12-11-2024 CO2 [Moles/Vol] 22.7 mmol/L 21.0-32.0 [facility] Chloride assayOrdered By: Mihir Bowman on 12-11-2024 Chloride [Moles/Vol] 110 mmol/L High 98-108 [facility] Comprehensive Metabolic Prof ilon 12-11-2024 Albumin [Mass/Vol] 3.8 g/dL Normal 3.4-4.8 [facility] Comment on above: Performed By: #### L 500.4100, L300.4310, L506.1001, L300.3900, L501.9520, L500.4050, L100.0100 ####[facility] [address] [place], [place], [id number] Albumin/Globulin [Mass ratio] 1.4 {ratio} Normal 0.9-2.4 [facility] Comment on above: Performed By: #### L 500.4100, L300.4310, L506.1001, L300.3900, L501.9520, L500.4050, L100.0100 ####[facility] [address] [place], [place], [id number] ALK PHOS 99 U/L Normal 35-104 [facility] Comment on above: Performed By: #### L 500.4100, L300.4310, L506.1001, L300.3900, L501.9520, L500.4050, L100.0100 ####[facility] [address] [place], [address] ALT [Catalytic activity/Vol] 16 U/L Normal <=34 [facility] Comment on above: Performed By: #### L 500.4100, L300.4310, L506.1001, L300.3900, L501.9520, L500.4050, L100.0100 ####[facility] [address] [place], [address] AST [Catalytic activity/Vol] 22 U/L Normal <=31 [facility] Comment on above: Performed By: #### L 500.4100, L300.4310, L506.1001, L300.3900, L501.9520, L500.4050, L100.0100 ####[facility] [address] [place], [address] Bilirubin [Mass/Vol] 0.21 mg/dL Normal 0.00-1.30 [facility] Comment on above: Performed By: #### L 500.4100, L300.4310, L506.1001, L300.3900, L501.9520, L500.4050, L100.0100 ####[facility] [address] [place], [address] BUN/CRE 36.6 RATIO High 10-20 [facility] Comment on above: Performed By: #### L 500.4100, L300.4310, L506.1001, L300.3900, L501.9520, L500.4050, L100.0100 ####[facility] [address] [place], [address] Calcium [Mass/Vol] 9.2 mg/dL Normal 7.6-11.0 [facility] Comment on above: Performed By: #### L 500.4100, L300.4310, L506.1001, L300.3900, L501.9520, L500.4050, L100.0100 ####[facility] [address] [place], [address] Chloride [Moles/Vol] 110 mmol/L High 98-108 [facility] Comment on above: Performed By: #### L 500.4100, L300.4310, L506.1001, L300.3900, L501.9520, L500.4050, L100.0100 ####[facility] [address] [place], [address] CO2 [Moles/Vol] 22.7 mmol/L Normal 21.0-32.0 [facility] Comment on above: Performed By: #### L 500.4100, L300.4310, L506.1001, L300.3900, L501.9520, L500.4050, L100.0100 ####[facility] [address] [place], [address] Creatinine [Mass/Vol] 0.71 mg/dL Normal 0.70-1.20 [facility] Comment on above: Performed By: #### L 500.4100, L300.4310, L506.1001, L300.3900, L501.9520, L500.4050, L100.0100 ####[facility] [address] [place], [address] GAP 12 Normal 5-15 [facility] Comment on above: Performed By: #### L 500.4100, L300.4310, L506.1001, L300.3900, L501.9520, L500.4050, L100.0100 ####[facility] [address] [place], [address] GFR/1.73 sq M.predicted among non-blacks MDRD (S/P/Bld) [Vol rate/Area] 88 mL/min/{1.73_m2} Normal >60 [facility] Comment on above: Result Comment: mL/m in/1.73m2 CKD-EPI Creatinine Equation (2020) Performed By: #### L 500.4100, L300.4310, L506.1001, L300.3900, L501.9520, L500.4050, L100.0100 ####[facility] [address] [place], [address] Globulin (S) [Mass/Vol] 2.6 g/dL Normal 2.2-4.2 [facility] Comment on above: Performed By: #### L 500.4100, L300.4310, L506.1001, L300.3900, L501.9520, L500.4050, L100.0100 ####[facility] [address] [place], [address] Glucose [Mass/Vol] 128 mg/dL High 70-99 [facility] Comment on above: Performed By: #### L 500.4100, L300.4310, L506.1001, L300.3900, L501.9520, L500.4050, L100.0100 ####[facility] [address] [place], [address] Potassium [Moles/Vol] 3.9 mmol/L Normal 3.3-5.1 [facility] Comment on above: Performed By: #### L 500.4100, L300.4310, L506.1001, L300.3900, L501.9520, L500.4050, L100.0100 ####[facility] [address] [place], [address] Sodium [Moles/Vol] 144 mmol/L Normal 133-145 [facility] Comment on above: Performed By: #### L 500.4100, L300.4310, L506.1001, L300.3900, L501.9520, L500.4050, L100.0100 ####[facility] [address] [place], [address] T PROT 6.4 g/dL Normal 5.9-8.4 [facility] Comment on above: Performed By: #### L 500.4100, L300.4310, L506.1001, L300.3900, L501.9520, L500.4050, L100.0100 ####[facility] [address] [place], [address] Urea nitrogen [Mass/Vol] 26 mg/dL High 4-19 [facility] Comment on above: Performed By: #### L 500.4100, L300.4310, L506.1001, L300.3900, L501.9520, L500.4050, L100.0100 ####[facility] [address] [place], [address] Eosinophil percentageOrdered By: Ed Bowman on 12-11-2024 Eosinophils/100 WBC (Bld) 1.3 % 0-5 [facility] Erythrocyte distribution wid th ratioOrdered By: Ed Bowman on 12-11-2024 Erythrocyte distribution width (RBC) [Ratio] 13.6 % 11.6-14.6 [facility] Erythrocyte distribution wid th standard deviationOrdered By: Ed Colby on 12-11-2024 Erythrocyte distribution width (RBC) [Ratio] 46.5 fl High 35.1-43.9 [facility] Glomerular filtration rate ( GFR) estimation/1.73 sq m using serum, plasma, or whole bOrdered By: Ed Bowman on 12-11-2024 GFR/1.73 sq M.predicted among non-blacks MDRD (S/P/Bld) [Vol rate/Area] 88 mL/min/{1.73_m2} >60 [facility] Comment on above: mL/min/1.73m2 CKD-EP I Creatinine Equation (2020) Hematocrit Auto (Bld) [Volum e fraction]Ordered By: Ed Bowman on 12-11-2024 Hematocrit (Bld) [Volume fraction] 42.5 % 37-47 [facility] Hemoglobin measurementOrdere d By: Ed Bowman on 12-11-2024 Hemoglobin (Bld) [Mass/Vol] 13.9 g/dL 12.0-15.0 [facility] Immature granulocytes/100 WB C Auto (Bld)Ordered By: Ed Bowman on 12-11-2024 Immature granulocytes/100 WBC (Bld) 1.900 % High 0.0-0.9 [facility] Comment on above: IG% - Immature Granu locytes (promyelocytes, myelocytes and metamyelocytes) > 1% indicates that a LEFT SHIFT is Present. International normalized rat io (INR) calculationOrdered By: Ed Bowman on 12-11-2024 INR Coag (Bld) [Relative time] 1.0 {INR} [facility] LDL calc ser/plasOrdered By: Ed Bowman on 12-11-2024 Cholesterol in LDL [Mass/Vol] 114 mg/dL [facility] Comment on above: Ixbvmjwyru=719-772 m g/dL & Higher Osyw=005 mg/dL or greater Laboratory - Chemistry and C hemistry - challengeOrdered By: Ed Bowman on 12-11-2024 AST [Catalytic activity/Vol] 22 U/L <32 [facility] Lipid Profileon 12-11-2024 CHOL:HDL 5.08 Normal [facility] Comment on above: Performed By: #### L 500.4100, L300.4310, L506.1001, L300.3900, L501.9520, L500.4050, L100.0100 ####[facility] [address] [place], [place], [id number] Cholesterol [Mass/Vol] 211 mg/dL High <=200 [facility] Comment on above: Result Comment: Chol esterol level, Desirable <200 mg/dLBorderline high cholesterol 200-239 mg/dLHigh cholesterol >=240 mg/dLRecommendations of the NCEP Adult Treatment Panel for thefollowing risk-cutoff thresholds for the [place]. Performed By: #### L 500.4100, L300.4310, L506.1001, L300.3900, L501.9520, L500.4050, L100.0100 ####[facility] [address] [place], [address] Cholesterol in HDL [Mass/Vol] 42 mg/dL Normal [facility] Comment on above: Result Comment: Michelle onal Cholesterol Education Program (NCEP) guidelines:<40 mg/dL: Low HDL-cholesterol (major risk factor for CHD)>= 60 mg/dL: High HDL-cholesterol (negative risk factor forCHD)HDL-cholesterol is affected by a number of factors, e.g.smoking, exercise, hormones, sex and age. Performed By: #### L 500.4100, L300.4310, L506.1001, L300.3900, L501.9520, L500.4050, L100.0100 ####[facility] [address] [facility] [address] Cholesterol in LDL [Mass/Vol] 114 mg/dL Normal [facility] Comment on above: Result Comment: Bord xppyvk=798-876 mg/dL Higher Itkh=973 mg/dL or greater Performed By: #### L 500.4100, L300.4310, L506.1001, L300.3900, L501.9520, L500.4050, L100.0100 ####[facility] [address] [place], [address] Cholesterol in VLDL [Mass/Vol] 56 mg/dL High 5-40 [facility] Comment on above: Performed By: #### L 500.4100, L300.4310, L506.1001, L300.3900, L501.9520, L500.4050, L100.0100 ####[facility] [address] [facility] [id number] Triglyceride [Mass/Vol] 279 mg/dL High [facility] Comment on above: Result Comment: The drugs N-Acetylcysteine and Metamizole may falselydepress this assay.Normal range: <150 mg/dLBorderline High: 150-199 mg/dLHigh: 200-499 mg/dLVery High: >500 mg/dL Performed By: #### L 500.4100, L300.4310, L506.1001, L300.3900, L501.9520, L500.4050, L100.0100 ####[facility] [address] [place], [place], [id number] MCV (mean corpuscular volume ) determinationOrdered By: Ed Bowman on 12-11-2024 MCV (RBC) [Entitic vol] 93.2 fL 81-99 [facility] Mean corpuscular hemoglobin (MCH) determinationOrdered By: Ed Bowman on 12-11-2024 MCH (RBC) [Entitic mass] 30.5 pg 27.0-32.0 [facility] Mean corpuscular hemoglobin concentration (MCHC) determinationOrdered By: Ed Bowman on 12-11-2024 MCHC (RBC) [Mass/Vol] 32.7 g/dL 32-36 [facility] Mean platelet volume determi nationOrdered By: Ed Bowman on 12-11-2024 Platelet mean volume (Bld) [Entitic vol] 9.6 fL 6.2-12.0 [facility] Monocyte percentageOrdered B y: Ed Bowman on 12-11-2024 Monocytes/100 WBC (Bld) 9.3 % 0-10 [facility] Neutrophil percentageOrdered By: Ed Bowman on 12-11-2024 Neutrophils/100 WBC (Bld) 56.3 % 47-70 [facility] Nucleated red blood cell per centageOrdered By: Ed Bowman on 12-11-2024 Nucleated RBC/100 WBC (Bld) [Ratio] 0 % 0-5 [facility] Partial Thromboplast Timeon 12-11-2024 aPTT Coag (Bld) [Time] 25.0 s Normal 24.1-36.2 [facility] Comment on above: Performed By: #### L 500.4100, L300.4310, L506.1001, L300.3900, L501.9520, L500.4050, L100.0100 ####[facility] [address] [place], [address] Platelet countOrdered By: Mihir Bowman on 12-11-2024 Platelets (Bld) [#/Vol] 289 10*3/uL 150-450 [facility] Potassium measurement (mass/ volume)Ordered By: Ed Bowman on 12-11-2024 Potassium (Unsp spec) [Mass/Vol] 3.9 mmol/L 3.3-5.1 [facility] Prothrombin Time w/INRon INR Coag (PPP) [Relative time] 1.0 {INR} Normal [facility] Comment on above: Performed By: #### L 500.4100, L300.4310, L506.1001, L300.3900, L501.9520, L500.4050, L100.0100 ####[facility] [address] [place], [address] PT Coag (PPP) [Time] 13.1 s Normal 11.7-14.9 [facility] Comment on above: Performed By: #### L 500.4100, L300.4310, L506.1001, L300.3900, L501.9520, L500.4050, L100.0100 ####[facility] [address] [place], [address] Prothrombin timeOrdered By: Ed Bowman on 12-11-2024 PT Coag (PPP) [Time] 13.1 s 11.7-14.9 [facility] RBC Auto (Bld) [#/Vol]Ordere d By: Ed Bowman on 12-11-2024 RBC (Bld) [#/Vol] 4.56 10*6/uL 4.2-5.4 [facility] Screening total cholesterol/ high density lipoprotein (HDL) cholesterol ratioOrdered By: Ed Bowman on 12-11-2024 Cholesterol.total/Mikayla sterol in HDL [Mass ratio] 5.08 {ratio} [facility] Serum creatinine measurement (mass/volume)Ordered By: Ed Bowman on 12-11-2024 Creatinine [Mass/Vol] 0.71 mg/dL 0.70-1.20 [facility] Serum globulin measurementOr dered By: Ed Bowman on 12-11-2024 Globulin (S) [Mass/Vol] 2.6 g/dL 2.2-4.2 [facility] Serum glucose measurement (m ass/volume)Ordered By: Ed Bowman on 12-11-2024 Glucose [Mass/Vol] 128 mg/dL High 70-99 [facility] Serum or plasma alanine cooper otransferase (ALT) measurementOrdered By: Ed Bowman 12-11-2024 ALT [Catalytic activity/Vol] 16 U/L <35 [facility] Serum or plasma albumin raine urement (mass/volume)Ordered By: Ed Bowman on 12-11-2024 Albumin [Mass/Vol] 3.8 g/dL 3.4-4.8 [facility] Serum or plasma albumin/glob ulin mass ratioOrdered By: Ed Bowman 12-11-2024 Albumin/Globulin [Mass ratio] 1.4 {ratio} 0.9-2.4 [facility] Serum or plasma alkaline haven sphatase measurementOrdered By: Ed Bowman 12-11-2024 ALP [Catalytic activity/Vol] 99 U/L 35-104 [facility] Serum or plasma calcium raine urement (mass/volume)Ordered By: Ed Bowman 12-11-2024 Calcium [Mass/Vol] 9.2 mg/dL 7.6-11.0 [facility] Serum or plasma cholesterol in HDL measurement (mass/volume)Ordered By: Ed Bowman on 12-11-2024 Cholesterol in HDL [Mass/Vol] 42 mg/dL >40 [facility] Comment on above: National Cholesterol Education Program (NCEP) guidelines:<40 mg/dL: Low HDL-cholesterol (major risk factor for CHD)>= 60 mg/dL: High HDL-cholesterol (negative risk factor for CHD)HDL-cholesterol is affected by a number of factors, e.g. smoking, exercise, hormones, sex and age. Serum or plasma cholesterol measurement (mass/volume)Ordered By: Ed Bowman on 12-11-2024 Cholesterol [Mass/Vol] 211 mg/dL High <201 [facility] Comment on above: Cholesterol level, D esirable <200 mg/dLBorderline high cholesterol 200-239 mg/dLHigh cholesterol >=240 mg/dLRecommendations of the NCEP Adult Treatment Panel for the following risk-cutoff thresholds for the [place] population. Serum or plasma urea nitroge n measurement (mass/volume)Ordered By: Ed Bowman on 12-11-2024 Urea nitrogen [Mass/Vol] 26 mg/dL High 4-19 [facility] Sodium levelOrdered By: Ed Bowman on 12-11-2024 Sodium [Moles/Vol] 144 mmol/L 133-145 [facility] TSH DL <= 0.005 mIU/L QnOrde red By: Ed Bowman on 12-11-2024 TSH Qn 1.090 uIU/mL 0.300-4.200 [facility] Thyroid Stim Hormone (TSH)on 12-11-2024 TSH 1.090 uIU/mL Normal 0.300-4.200 [facility] Comment on above: Performed By: #### L 500.4100, L300.4310, L506.1001, L300.3900, L501.9520, L500.4050, L100.0100 ####[facility] [address] [place], [address] Total proteinOrdered By: Ed Bowman on 12-11-2024 Protein [Mass/Vol] 6.4 g/dL 5.9-8.4 [facility] Triglycerides measurementOrd ered By: Ed Bowman on 12-11-2024 Triglyceride [Mass/Vol] 279 mg/dL High <199 [facility] Comment on above: The drugs N-Acetylcy steine and Metamizole may falsely depress this assay. Normal range: <150 mg/dLBorderline High: 150-199 mg/dLHigh: 200-499 mg/dLVery High: >500 mg/dL Vitamin D,25 Hydroxyon 12-11 Vitamin D 25-OH 28.4 ng/mL Low 30-100 [facility] Comment on above: Result Comment: Luda min D StatusDeficiency: <20 ng/mL (50nmol/L)Insufficiency: 20-30 ng/mL (50-75 nmol/L)Sufficiency: 30-100 ng/mL (75-250 nmol/L)Toxicity: >100 ng/mL (>250 nmol/L) Performed By: #### L 500.4100, L300.4310, L506.1001, L300.3900, L501.9520, L500.4050, L100.0100 ####[facility] [address] [place], [address] White blood cell (WBC) count Ordered By: Ed Bowman on 12-11-2024 WBC (Bld) [#/Vol] 10.3 10*3/uL 4.4-11.0 [facility] Brain/Head without Contrasto n 12-05-2024 Brain/Head without Contrast Normal [facility] Emergency Department Summary on 12-05-2024 Emergency Department Summary Normal [facility] Spine Cervical without Contr ason 12-05-2024 Spine Cervical without Contras Normal [facility] Breast imaging reportOrdered By: Citlali Horne on 11-29-2024 Study report [facility] Imaging Services [address] [place] [address] SCRN MAMM (CAD)W/ARNULFO BILAT MR#: [id number] Acct: [id number] Name: BARBARA GLASS Rep #: [id number] : 1950 F 74 From: Chloé Horne MD PCP: Dr. Ed Bowman MD Status: DARION GN Study:SCRN MAMM (CAD)W/ARNULFO BILAT Date of Exa m: 11/29/24 Exam# [id number] Ordering Dr: Ke Saeed MD EXAM: SCRN [...] be mailed to the patient. Reading Location: [facility] CC: Dr. Ke Saeed MD; Dr. 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 [facility] SCRN MAMM (CAD)W/ARNULFO BILATo n 11-29-2024 SCRN MAMM (CAD)W/ARNULFO BILAT Normal [facility] Brain/Head without Contrasto n 11-26-2024 Brain/Head without Contrast Normal [facility] Emergency Department Summary on 11-26-2024 Emergency Department Summary Normal [facility] Spine Cervical without Contr ason 11-26-2024 Spine Cervical without Contras Normal [facility] Wound Cultureon 11-24-2024 WC Pending Staphylococcus [...] Vancomycin Islt TEETEE 1 S Normal [facility] Comment on above: Performed By: #### M 100.2000, M100.3000 #### [facility] Laboratory [facility] [place] [address], [address] Gram Stainon 11-22-2024 GS Gram Stain 1+ Gram negative rods Rare Gram positive cocci No cells seen Normal [facility] Comment on above: Performed By: #### M 100.2000, M100.3000 #### [facility] [place] [address], [address] Gram stainOrdered By: Ed marion on 11-21-2024 Microscopic observation Gram stain Nom (Unsp spec) [facility] Routine wound cultureOrdered By: Ed Bowman on 11-21-2024 Microbial culture, routine Staphylococcus epidermidis Abnormal [facility] Absolute lymphocyte countOrd ered By: Nelson Hobson on 11-20-2024 Lymphocytes Auto (Unsp spec) [#/Vol] 2.95 10*3/uL 0.83-4.51 [facility] Absolute neutrophil countOrd ered By: Nelson Hobson on 11-20-2024 Neutrophils (Bld) [#/Vol] 7.4 10*3/uL 2.0-7.7 [facility] Anion gap in Serum or Plasma Ordered By: Nelson Hobson on 11-20-2024 Anion gap [Moles/Vol] 13 mmol/L 5-15 [facility] Automated lymphocyte count a s percentage of total leukocytesOrdered By: Nelson Hobson on 11-20-2024 Lymphocytes/100 WBC Auto (Unsp spec) 24.6 % 19-41 [facility] BUN/creatinine ratioOrdered By: Nelson Hobson on 11-20-2024 Urea nitrogen/Creatinine [Mass ratio] 25.9 mg/mg High 10-20 [facility] Basophil percentageOrdered B y: Nelson Hobson on 11-20-2024 Basophils/100 WBC (Bld) 0.8 % 0-1 [facility] Bilirubin, totalOrdered By: Nelson Hobson on 11-20-2024 Bilirubin [Mass/Vol] 0.33 mg/dL 0.00-1.30 [facility] CBC W/Diff, Automatedon 11-09 Absolute Lymph 2.95 X10 3/uL Normal 0.83-4.51 [facility] Comment on above: Performed By: #### L 100.0100, L500.4050, L504.2610, L300.8000 ####[facility] [address] [place], [address] Absolute Neut 7.4 X10 3/uL Normal 2.0-7.7 [facility] Comment on above: Performed By: #### L 100.0100, L500.4050, L504.2610, L300.8000 ####[facility] [address] [place], [address] Basophils/100 WBC (Bld) 0.8 % Normal 0-1 [facility] Comment on above: Performed By: #### L 100.0100, L500.4050, L504.2610, L300.8000 ####[facility] [address] [place], [address] Eosinophils/100 WBC (Bld) 0.6 % Normal 0-5 [facility] Comment on above: Performed By: #### L 100.0100, L500.4050, L504.2610, L300.8000 ####[facility] [address] [place], [address] Erythrocyte distribution width (RBC) [Ratio] 13.5 % Normal 11.6-14.6 [facility] Comment on above: Performed By: #### L 100.0100, L500.4050, L504.2610, L300.8000 ####[facility] [address] [place], [address] Hematocrit (Bld) [Volume fraction] 42.9 % Normal 37-47 [facility] Comment on above: Performed By: #### L 100.0100, L500.4050, L504.2610, L300.8000 ####[facility] [address] [place], [address] Hemoglobin (Bld) [Mass/Vol] 14.7 g/dL Normal 12.0-15.0 [facility] Comment on above: Performed By: #### L 100.0100, L500.4050, L504.2610, L300.8000 ####[facility] [address] [place], [address] IG% 2.400 High 0.0-0.9 [facility] Comment on above: Result Comment: IG% - Immature Granulocytes (promyelocytes, myelocytes andmetamyelocytes) > 1% indicates that a LEFT SHIFT is Present. Performed By: #### L 100.0100, L500.4050, L504.2610, L300.8000 ####[facility] [address] [place], [address] Lymphocytes/100 WBC (Bld) 24.6 % Normal 19-41 [facility] Comment on above: Performed By: #### L 100.0100, L500.4050, L504.2610, L300.8000 ####[facility] [address] [place], [address] MCH (RBC) [Entitic mass] 30.9 pg Normal 27.0-32.0 [facility] Comment on above: Performed By: #### L 100.0100, L500.4050, L504.2610, L300.8000 ####[facility] [address] [place], [address] MCHC (RBC) [Mass/Vol] 34.3 g/dL Normal 32-36 [facility] Comment on above: Performed By: #### L 100.0100, L500.4050, L504.2610, L300.8000 ####[facility] [address] [place], [address] MCV (RBC) [Entitic vol] 90.1 fL Normal 81-99 [facility] Comment on above: Performed By: #### L 100.0100, L500.4050, L504.2610, L300.8000 ####[facility] [address] [place], [address] Monocytes/100 WBC (Bld) 9.5 % Normal 0-10 [facility] Comment on above: Performed By: #### L 100.0100, L500.4050, L504.2610, L300.8000 ####[facility] [address] [place], [address] Neutrophils/100 WBC (Bld) 62.1 % Normal 47-70 [facility] Comment on above: Performed By: #### L 100.0100, L500.4050, L504.2610, L300.8000 ####[facility] [address] [place], [address] Nucleated RBC (Bld) [#/Vol] 0 10*3/uL Normal 0-5 [facility] Comment on above: Performed By: #### L 100.0100, L500.4050, L504.2610, L300.8000 ####[facility] [address] [place], [address] Platelet mean volume (Bld) [Entitic vol] 9.3 fL Normal 6.2-12.0 [facility] Comment on above: Performed By: #### L 100.0100, L500.4050, L504.2610, L300.8000 ####[facility] [address] [place], [address] Platelets (Bld) [#/Vol] 310 10*3/uL Normal 150-450 [facility] Comment on above: Performed By: #### L 100.0100, L500.4050, L504.2610, L300.8000 ####[facility] [address] [place], [address] RBC (Bld) [#/Vol] 4.76 10*6/uL Normal 4.2-5.4 [facility] Comment on above: Performed By: #### L 100.0100, L500.4050, L504.2610, L300.8000 ####[facility] [address] [place], [address] RDW SD 44.8 fl High 35.1-43.9 [facility] Comment on above: Performed By: #### L 100.0100, L500.4050, L504.2610, L300.8000 ####[facility] [address] [place], [address] WBC (Bld) [#/Vol] 12.0 10*3/uL High 4.4-11.0 [facility] Comment on above: Performed By: #### L 100.0100, L500.4050, L504.2610, L300.8000 ####[facility] [address] [place], [address] Carbon dioxide, total [Moles /volume] in Central venous bloodOrdered By: Nelson Hobson on 11-20-2024 CO2 [Moles/Vol] 22.4 mmol/L 21.0-32.0 [facility] Chloride assayOrdered By: Niya Hobson on 11-20-2024 Chloride [Moles/Vol] 106 mmol/L 98-108 [facility] Comprehensive Metabolic Prof ilon 11-20-2024 Albumin [Mass/Vol] 4.0 g/dL Normal 3.4-4.8 [facility] Comment on above: Performed By: #### L 100.0100, L500.4050, L504.2610, L300.8000 ####[facility] [address] [place], [address] Albumin/Globulin [Mass ratio] 1.4 {ratio} Normal 0.9-2.4 [facility] Comment on above: Performed By: #### L 100.0100, L500.4050, L504.2610, L300.8000 ####[facility] [address] [place], [address] ALK PHOS 107 U/L High 35-104 [facility] Comment on above: Performed By: #### L 100.0100, L500.4050, L504.2610, L300.8000 ####[facility] [address] [place], [address] ALT [Catalytic activity/Vol] 11 U/L Normal <=34 [facility] Comment on above: Performed By: #### L 100.0100, L500.4050, L504.2610, L300.8000 ####[facility] [address] [place], [address] AST [Catalytic activity/Vol] 20 U/L Normal <=31 [facility] Comment on above: Performed By: #### L 100.0100, L500.4050, L504.2610, L300.8000 ####[facility] [address] [place], [address] Bilirubin [Mass/Vol] 0.33 mg/dL Normal 0.00-1.30 [facility] Comment on above: Performed By: #### L 100.0100, L500.4050, L504.2610, L300.8000 ####[facility] [address] [place], [address] BUN/CRE 25.9 RATIO High 10-20 [facility] Comment on above: Performed By: #### L 100.0100, L500.4050, L504.2610, L300.8000 ####[facility] [address] [place], [address] Calcium [Mass/Vol] 9.0 mg/dL Normal 7.6-11.0 [facility] Comment on above: Performed By: #### L 100.0100, L500.4050, L504.2610, L300.8000 ####[facility] [address] [place], [address] Chloride [Moles/Vol] 106 mmol/L Normal 98-108 [facility] Comment on above: Performed By: #### L 100.0100, L500.4050, L504.2610, L300.8000 ####[facility] [address] [place], [address] CO2 [Moles/Vol] 22.4 mmol/L Normal 21.0-32.0 [facility] Comment on above: Performed By: #### L 100.0100, L500.4050, L504.2610, L300.8000 ####[facility] [address] [place], [address] Creatinine [Mass/Vol] 0.95 mg/dL Normal 0.70-1.20 [facility] Comment on above: Performed By: #### L 100.0100, L500.4050, L504.2610, L300.8000 ####[facility] [address] [place], [address] ECRCL 54.01 ml/min Normal 50-250 [facility] Comment on above: Performed By: #### L 100.0100, L500.4050, L504.2610, L300.8000 ####[facility] [address] [place], [address] GAP 13 Normal 5-15 [facility] Comment on above: Performed By: #### L 100.0100, L500.4050, L504.2610, L300.8000 ####[facility] [address] [place], [address] GFR/1.73 sq M.predicted among non-blacks MDRD (S/P/Bld) [Vol rate/Area] 62 mL/min/{1.73_m2} Normal >60 [facility] Comment on above: Result Comment: mL/m in/1.73m2 CKD-EPI Creatinine Equation (2020) Performed By: #### L 100.0100, L500.4050, L504.2610, L300.8000 ####[facility] [address] [place], [address] Globulin (S) [Mass/Vol] 2.7 g/dL Normal 2.2-4.2 [facility] Comment on above: Performed By: #### L 100.0100, L500.4050, L504.2610, L300.8000 ####[facility] [address] [place], [address] Glucose [Mass/Vol] 116 mg/dL High 70-99 [facility] Comment on above: Performed By: #### L 100.0100, L500.4050, L504.2610, L300.8000 ####[facility] [address] [place], [address] Potassium [Moles/Vol] 3.6 mmol/L Normal 3.3-5.1 [facility] Comment on above: Performed By: #### L 100.0100, L500.4050, L504.2610, L300.8000 ####[facility] [address] [place], [address] Sodium [Moles/Vol] 141 mmol/L Normal 133-145 [facility] Comment on above: Performed By: #### L 100.0100, L500.4050, L504.2610, L300.8000 ####[facility] [address] [place], [address] T PROT 6.7 g/dL Normal 5.9-8.4 [facility] Comment on above: Performed By: #### L 100.0100, L500.4050, L504.2610, L300.8000 ####[facility] [address] [place], [address] Urea nitrogen [Mass/Vol] 25 mg/dL High 4-19 [facility] Comment on above: Performed By: #### L 100.0100, L500.4050, L504.2610, L300.8000 ####[facility] [address] [place], [place], [address] D-Dimer Quantitative (DVT/PE )on 11-20-2024 D-DIMER QUANT 1.24 FEU/ug/m Invalid Interpretation Code 0.27-0.49 [facility] Comment on above: Result Comment: D-Di sterling ELEVATED (>0.49): Additional studies and clinicalassessments are indicated to conclude diagnosis of:Deep Vein Thrombosis (DVT) or Pulmonary Embolism (PE)CRITICAL VALUE CALLED TO LEXA MATHIAS (ONC)11/20/24 9756 Iggy Qiu.RESULTS READ BACK BY SAME. Performed By: #### L 100.0100, L500.4050, L504.2610, L300.8000 ####[facility] [address] [place], [place], [address] Eosinophil percentageOrdered By: Nelson Hobson on 11-20-2024 Eosinophils/100 WBC (Bld) 0.6 % 0-5 [facility] Erythrocyte distribution wid th ratioOrdered By: Nelson Hobson on 11-20-2024 Erythrocyte distribution width (RBC) [Ratio] 13.5 % 11.6-14.6 [facility] Erythrocyte distribution wid th standard deviationOrdered By: Nelson Hobson on 11-20-2024 Erythrocyte distribution width (RBC) [Ratio] 44.8 fl High 35.1-43.9 [facility] Glomerular filtration rate ( GFR) estimation/1.73 sq m using serum, plasma, or whole bOrdered By: Nelson Hobson on 11-20-2024 GFR/1.73 sq M.predicted among non-blacks MDRD (S/P/Bld) [Vol rate/Area] 62 mL/min/{1.73_m2} >60 [facility] Comment on above: mL/min/1.73m2 CKD-EP I Creatinine Equation (2020) Hematocrit Auto (Bld) [Volum e fraction]Ordered By: Nelson Hobson on 11-20-2024 Hematocrit (Bld) [Volume fraction] 42.9 % 37-47 [facility] Hemoglobin measurementOrdere d By: Nelson Hobson on 11-20-2024 Hemoglobin (Bld) [Mass/Vol] 14.7 g/dL 12.0-15.0 [facility] Immature granulocytes/100 WB C Auto (Bld)Ordered By: Nelson Hobson on 11-20-2024 Immature granulocytes/100 WBC (Bld) 2.400 % High 0.0-0.9 [facility] Comment on above: IG% - Immature Granu locytes (promyelocytes, myelocytes and metamyelocytes) > 1% indicates that a LEFT SHIFT is Present. LDHon 11-20-2024 LDH 258 U/L High 84-246 [facility] Comment on above: Order Comment: 1 Performed By: #### L 100.0100, L500.4050, L504.2610, L300.8000 ####[facility] [address] [place], [address] Laboratory - Chemistry and C hemistry - challengeOrdered By: Nelson Hobson on 11-20-2024 AST [Catalytic activity/Vol] 20 U/L <32 [facility] Lactate dehydrogenase (LDH) measurementOrdered By: Nelson Hobson on 11-20-2024 LDH [Catalytic activity/Vol] 258 U/L High 84-246 [facility] MCV (mean corpuscular volume ) determinationOrdered By: Nelson Hobson on 11-20-2024 MCV (RBC) [Entitic vol] 90.1 fL 81-99 [facility] Mean corpuscular hemoglobin (MCH) determinationOrdered By: Nelson Hobson on 11-20-2024 MCH (RBC) [Entitic mass] 30.9 pg 27.0-32.0 [facility] Mean corpuscular hemoglobin concentration (MCHC) determinationOrdered By: Nelson Hobson on 11-20-2024 MCHC (RBC) [Mass/Vol] 34.3 g/dL 32-36 [facility] Mean platelet volume determi nationOrdered By: Nelson Hobson on 11-20-2024 Platelet mean volume (Bld) [Entitic vol] 9.3 fL 6.2-12.0 [facility] Monocyte percentageOrdered B y: Nelson Hobson on 11-20-2024 Monocytes/100 WBC (Bld) 9.5 % 0-10 [facility] Neutrophil percentageOrdered By: Nelson Hobsno on 11-20-2024 Neutrophils/100 WBC (Bld) 62.1 % 47-70 [facility] Nucleated red blood cell per centageOrdered By: Nelson Hobson on 11-20-2024 Nucleated RBC/100 WBC (Bld) [Ratio] 0 % 0-5 [facility] Oncology Visit Reporton 11-09 Oncology Visit Report Normal [facility] Platelet countOrdered By: Niya Hobson on 11-20-2024 Platelets (Bld) [#/Vol] 310 10*3/uL 150-450 [facility] Potassium measurement (mass/ volume)Ordered By: Nelson Hobson on 11-20-2024 Potassium (Unsp spec) [Mass/Vol] 3.6 mmol/L 3.3-5.1 [facility] RBC Auto (Bld) [#/Vol]Ordere d By: Nelson Hobson on 11-20-2024 RBC (Bld) [#/Vol] 4.76 10*6/uL 4.2-5.4 [facility] Serum creatinine measurement (mass/volume)Ordered By: Nelson Hobson on 11-20-2024 Creatinine [Mass/Vol] 0.95 mg/dL 0.70-1.20 [facility] Serum globulin measurementOr dered By: Nelson Hobson on 11-20-2024 Globulin (S) [Mass/Vol] 2.7 g/dL 2.2-4.2 [facility] Serum glucose measurement (m ass/volume)Ordered By: Nelson Hobson on 11-20-2024 Glucose [Mass/Vol] 116 mg/dL High 70-99 [facility] Serum or plasma alanine cooper otransferase (ALT) measurementOrdered By: Nelson Hobson on 11-20-2024 ALT [Catalytic activity/Vol] 11 U/L <35 [facility] Serum or plasma albumin raine urement (mass/volume)Ordered By: Nelson Hobson on 11-20-2024 Albumin [Mass/Vol] 4.0 g/dL 3.4-4.8 [facility] Serum or plasma albumin/glob ulin mass ratioOrdered By: Nelson Hobson on 11-20-2024 Albumin/Globulin [Mass ratio] 1.4 {ratio} 0.9-2.4 [facility] Serum or plasma alkaline haven sphatase measurementOrdered By: Nelson Hobson on 11-20-2024 ALP [Catalytic activity/Vol] 107 U/L High 35-104 [facility] Serum or plasma calcium raine urement (mass/volume)Ordered By: Nelson Hobson on 11-20-2024 Calcium [Mass/Vol] 9.0 mg/dL 7.6-11.0 [facility] Serum or plasma urea nitroge n measurement (mass/volume)Ordered By: Nelson Hobson on 11-20-2024 Urea nitrogen [Mass/Vol] 25 mg/dL High 4-19 [facility] Sodium levelOrdered By: Venu Hobson on 11-20-2024 Sodium [Moles/Vol] 141 mmol/L 133-145 [facility] Total proteinOrdered By: Dickson Hobson on 11-20-2024 Protein [Mass/Vol] 6.7 g/dL 5.9-8.4 [facility] White blood cell (WBC) count Ordered By: Nelson Hobson on 11-20-2024 WBC (Bld) [#/Vol] 12.0 10*3/uL High 4.4-11.0 [facility] Shoulder min 2 Viewson 11-09 Shoulder min 2 Views Normal [facility] Urine Cultureon 11-08-2024 URC Normal [facility] Comment on above: Performed By: #### M 100.2200 ####[facility] [address] [place], [address] 12 Lead EKGon 11-05-2024 12 Lead EKG Normal [facility] Absolute lymphocyte countOrd ered By: Chato Yang on 11-05-2024 Lymphocytes Auto (Unsp spec) [#/Vol] 2.45 10*3/uL 0.83-4.51 [facility] Absolute neutrophil countOrd ered By: Chato Yang on 11-05-2024 Neutrophils (Bld) [#/Vol] 4.8 10*3/uL 2.0-7.7 [facility] Anion gap in Serum or Plasma Ordered By: Chato Yang on 11-05-2024 Anion gap [Moles/Vol] 12 mmol/L 5- [facility] Automated lymphocyte count a s percentage of total leukocytesOrdered By: Chato Yang on 11-05-2024 Lymphocytes/100 WBC Auto (Unsp spec) 29.2 % 19- [facility] BUN/creatinine ratioOrdered By: Chato Yang on 11-05-2024 Urea nitrogen/Creatinine [Mass ratio] 19.6 mg/mg 10- [facility] Basophil percentageOrdered B y: Chato Yang on 11-05-2024 Basophils/100 WBC (Bld) 0.6 % 0-1 [facility] Bilirubin Test strip Ql (U)O rdered By: Chato Yang on 11-05-2024 Bilirubin Ql (U) Negative Negative [facility] Bilirubin, totalOrdered By: Chato Yang on 11-05-2024 Bilirubin [Mass/Vol] 0.54 mg/dL 0.00-1.30 [facility] CBC W/Diff, Automatedon 10-11 Absolute Lymph 2.45 X10 3/uL Normal 0.83-4.51 [facility] Comment on above: Performed By: #### L 501.4021, L100.0100, L501.2450, L500.4050 ####[facility] [address] [place], [address] Absolute Neut 4.8 X10 3/uL Normal 2.0-7.7 [facility] Comment on above: Performed By: #### L 501.4021, L100.0100, L501.2450, L500.4050 ####[facility] [address] [place], [address] Basophils/100 WBC (Bld) 0.6 % Normal 0-1 [facility] Comment on above: Performed By: #### L 501.4021, L100.0100, L501.2450, L500.4050 ####[facility] [address] [place], [address] Eosinophils/100 WBC (Bld) 0.5 % Normal 0-5 [facility] Comment on above: Performed By: #### L 501.4021, L100.0100, L501.2450, L500.4050 ####[facility] [address] [place], [address] Erythrocyte distribution width (RBC) [Ratio] 13.3 % Normal 11.6-14.6 [facility] Comment on above: Performed By: #### L 501.4021, L100.0100, L501.2450, L500.4050 ####[facility] [address] [place], [address] Hematocrit (Bld) [Volume fraction] 42.3 % Normal 37-47 [facility] Comment on above: Performed By: #### L 501.4021, L100.0100, L501.2450, L500.4050 ####[facility] [address] [place], [address] Hemoglobin (Bld) [Mass/Vol] 14.7 g/dL Normal 12.0-15.0 [facility] Comment on above: Performed By: #### L 501.4021, L100.0100, L501.2450, L500.4050 ####[facility] [address] [place], [address] IG% 1.300 High 0.0-0.9 [facility] Comment on above: Result Comment: IG% - Immature Granulocytes (promyelocytes, myelocytes andmetamyelocytes) > 1% indicates that a LEFT SHIFT is Present. Performed By: #### L 501.4021, L100.0100, L501.2450, L500.4050 ####[facility] [address] [place], [address] Lymphocytes/100 WBC (Bld) 29.2 % Normal 19-41 [facility] Comment on above: Performed By: #### L 501.4021, L100.0100, L501.2450, L500.4050 ####[facility] [address] [place], [address] MCH (RBC) [Entitic mass] 31.2 pg Normal 27.0-32.0 [facility] Comment on above: Performed By: #### L 501.4021, L100.0100, L501.2450, L500.4050 ####[facility] [address] [place], [address] MCHC (RBC) [Mass/Vol] 34.8 g/dL Normal 32-36 [facility] Comment on above: Performed By: #### L 501.4021, L100.0100, L501.2450, L500.4050 ####[facility] [address] [place], [address] MCV (RBC) [Entitic vol] 89.8 fL Normal 81-99 [facility] Comment on above: Performed By: #### L 501.4021, L100.0100, L501.2450, L500.4050 ####[facility] [address] [place], [address] Monocytes/100 WBC (Bld) 11.1 % High 0-10 [facility] Comment on above: Performed By: #### L 501.4021, L100.0100, L501.2450, L500.4050 ####[facility] [address] [place], [address] Neutrophils/100 WBC (Bld) 57.3 % Normal 47-70 [facility] Comment on above: Performed By: #### L 501.4021, L100.0100, L501.2450, L500.4050 ####[facility] [address] [place], [address] Nucleated RBC (Bld) [#/Vol] 0 10*3/uL Normal 0-5 [facility] Comment on above: Performed By: #### L 501.4021, L100.0100, L501.2450, L500.4050 ####[facility] [address] [place], [address] Platelet mean volume (Bld) [Entitic vol] 8.7 fL Normal 6.2-12.0 [facility] Comment on above: Performed By: #### L 501.4021, L100.0100, L501.2450, L500.4050 ####[facility] [address] [place], [address] Platelets (Bld) [#/Vol] 238 10*3/uL Normal 150-450 [facility] Comment on above: Performed By: #### L 501.4021, L100.0100, L501.2450, L500.4050 ####[facility] [address] [place], [address] RBC (Bld) [#/Vol] 4.71 10*6/uL Normal 4.2-5.4 [facility] Comment on above: Performed By: #### L 501.4021, L100.0100, L501.2450, L500.4050 ####[facility] [address] [place], [address] RDW SD 43.9 fl Normal 35.1-43.9 [facility] Comment on above: Performed By: #### L 501.4021, L100.0100, L501.2450, L500.4050 ####[facility] [address] [place], [address] WBC (Bld) [#/Vol] 8.4 10*3/uL Normal 4.4-11.0 [facility] Comment on above: Performed By: #### L 501.4021, L100.0100, L501.2450, L500.4050 ####[facility] [address] [place], [address] Carbon dioxide, total [Moles /volume] in Central venous bloodOrdered By: Chato Yang on 11-05-2024 CO2 [Moles/Vol] 23.0 mmol/L 21.0-32.0 [facility] Chloride assayOrdered By: Crow Yang on 11-05-2024 Chloride [Moles/Vol] 105 mmol/L 98-108 [facility] Comprehensive Metabolic Prof ilon 11-05-2024 Albumin [Mass/Vol] 3.8 g/dL Normal 3.4-4.8 [facility] Comment on above: Performed By: #### L 501.4021, L100.0100, L501.2450, L500.4050 ####[facility] [address] [place], [address] Albumin/Globulin [Mass ratio] 1.4 {ratio} Normal 0.9-2.4 [facility] Comment on above: Performed By: #### L 501.4021, L100.0100, L501.2450, L500.4050 ####[facility] [address] [place], [address] ALK PHOS 74 U/L Normal 35-104 [facility] Comment on above: Performed By: #### L 501.4021, L100.0100, L501.2450, L500.4050 ####[facility] [address] [place], [address] ALT [Catalytic activity/Vol] 11 U/L Normal <=34 [facility] Comment on above: Performed By: #### L 501.4021, L100.0100, L501.2450, L500.4050 ####[facility] [address] [place], [address] AST [Catalytic activity/Vol] 26 U/L Normal <=31 [facility] Comment on above: Result Comment: Hemo lysis present, Results??could be affected.?? Performed By: #### L 501.4021, L100.0100, L501.2450, L500.4050 ####[facility] [address] [place], [address] Bilirubin [Mass/Vol] 0.54 mg/dL Normal 0.00-1.30 [facility] Comment on above: Performed By: #### L 501.4021, L100.0100, L501.2450, L500.4050 ####[facility] [address] [place], [address] BUN/CRE 19.6 RATIO Normal 10-20 [facility] Comment on above: Performed By: #### L 501.4021, L100.0100, L501.2450, L500.4050 ####[facility] [address] [place], [address] Calcium [Mass/Vol] 9.2 mg/dL Normal 7.6-11.0 [facility] Comment on above: Performed By: #### L 501.4021, L100.0100, L501.2450, L500.4050 ####[facility] [address] [place], [address] Chloride [Moles/Vol] 105 mmol/L Normal 98-108 [facility] Comment on above: Performed By: #### L 501.4021, L100.0100, L501.2450, L500.4050 ####[facility] [address] [place], [address] CO2 [Moles/Vol] 23.0 mmol/L Normal 21.0-32.0 [facility] Comment on above: Performed By: #### L 501.4021, L100.0100, L501.2450, L500.4050 ####[facility] [address] [place], [address] Creatinine [Mass/Vol] 0.86 mg/dL Normal 0.70-1.20 [facility] Comment on above: Performed By: #### L 501.4021, L100.0100, L501.2450, L500.4050 ####[facility] [address] [place], [address] ECRCL 56.98 ml/min Normal 50-250 [facility] Comment on above: Performed By: #### L 501.4021, L100.0100, L501.2450, L500.4050 ####[facility] [address] [place], [address] GAP 12 Normal 5-15 [facility] Comment on above: Performed By: #### L 501.4021, L100.0100, L501.2450, L500.4050 ####[facility] [address] [place], [address] GFR/1.73 sq M.predicted among non-blacks MDRD (S/P/Bld) [Vol rate/Area] 70 mL/min/{1.73_m2} Normal >60 [facility] Comment on above: Result Comment: mL/m in/1.73m2 CKD-EPI Creatinine Equation (2020) Performed By: #### L 501.4021, L100.0100, L501.2450, L500.4050 ####[facility] [address] [place], [address] Globulin (S) [Mass/Vol] 2.8 g/dL Normal 2.2-4.2 [facility] Comment on above: Performed By: #### L 501.4021, L100.0100, L501.2450, L500.4050 ####[facility] [address] [place], [address] Glucose [Mass/Vol] 95 mg/dL Normal 70-99 [facility] Comment on above: Performed By: #### L 501.4021, L100.0100, L501.2450, L500.4050 ####[facility] [address] [place], [address] Potassium [Moles/Vol] 3.9 mmol/L Normal 3.3-5.1 [facility] Comment on above: Result Comment: Hemo lysis present, Results??could be affected.?? Performed By: #### L 501.4021, L100.0100, L501.2450, L500.4050 ####[facility] [address] [place], [address] Sodium [Moles/Vol] 140 mmol/L Normal 133-145 [facility] Comment on above: Performed By: #### L 501.4021, L100.0100, L501.2450, L500.4050 ####[facility] [address] [place], [address] T PROT 6.6 g/dL Normal 5.9-8.4 [facility] Comment on above: Performed By: #### L 501.4021, L100.0100, L501.2450, L500.4050 ####[facility] [address] [place], [address] Urea nitrogen [Mass/Vol] 17 mg/dL Normal 4-19 [facility] Comment on above: Performed By: #### L 501.4021, L100.0100, L501.2450, L500.4050 ####[facility] [address] [place], [address] Emergency Department Summary on 11-05-2024 Emergency Department Summary Normal [facility] Eosinophil percentageOrdered By: Chato Yang on 11-05-2024 Eosinophils/100 WBC (Bld) 0.5 % 0-5 [facility] Epithelial cells.squamous LM Ql (Urine sed)Ordered By: Chato Yang on 11-05-2024 Epithelial cells.squamous LM.HPF (Urine sed) [#/Area] 0 /[HPF] 5-10 [facility] Erythrocyte distribution wid th (RBC) [Ratio]Ordered By: Chato Yang on 11-05-2024 Erythrocyte distribution width (RBC) [Entitic vol] 43.9 fL 35.1-43.9 [facility] Erythrocyte distribution wid th ratioOrdered By: Chato Yang on 11-05-2024 Erythrocyte distribution width (RBC) [Ratio] 13.3 % 11.6-14.6 [facility] Erythrocyte distribution wid th standard deviationOrdered By: Chato Yang on 11-05-2024 Erythrocyte distribution width (RBC) [Ratio] 43.9 fl 35.1-43.9 [facility] Estimation of creatinine germania aranceOrdered By: Chato Yang on 11-05-2024 Estimated Creatinine Clearance Calc 56.98 ml/min 50-250 [facility] GFR/1.73 sq M.predicted tammy g non-blacks MDRD (S/P/Bld) [Vol rate/Area]Ordered By: Chato Yang on 11-05-2024 Estimated GFR (MDRD) Non-Af Amer 70 >60 [facility] Comment on above: mL/min/1.73m2 CKD-EP I Creatinine Equation (2020) Glomerular filtration rate ( GFR) estimation/1.73 sq m using serum, plasma, or whole bOrdered By: Chato Yang on 11-05-2024 GFR/1.73 sq M.predicted among non-blacks MDRD (S/P/Bld) [Vol rate/Area] 70 mL/min/{1.73_m2} >60 [facility] Comment on above: mL/min/1.73m2 CKD-EP I Creatinine Equation (2020) Glucose Ql (U)Ordered By: Crow Yang on 11-05-2024 Urine Glucose (UA) Normal mg/dl Normal [facility] Hematocrit Auto (Bld) [Volum e fraction]Ordered By: Chato Yang on 11-05-2024 Hematocrit (Bld) [Volume fraction] 42.3 % 37-47 [facility] Hemoglobin measurementOrdere d By: Chato Yang on 11-05-2024 Hemoglobin (Bld) [Mass/Vol] 14.7 g/dL 12.0-15.0 [facility] Immature granulocytes/100 WB C Auto (Bld)Ordered By: Chato Yang on 11-05-2024 Immature granulocytes/100 WBC (Bld) 1.300 % High 0.0-0.9 [facility] Comment on above: IG% - Immature Granu locytes (promyelocytes, myelocytes and metamyelocytes) > 1% indicates that a LEFT SHIFT is Present. Ketones Test strip Ql (U)Ord ered By: Chato Yang on 11-05-2024 Ketones Ql (U) Negative Negative [facility] L501.4021on 11-05-2024 Trop T High Sen 14 ng/L Normal <=14 [facility] Comment on above: Performed By: #### L 501.4021, L100.0100, L501.2450, L500.4050 ####[facility] [address] [place], [place], [id number] Laboratory - Chemistry and C hemistry - challengeOrdered By: Chato Yang on 11-05-2024 AST [Catalytic activity/Vol] 26 U/L <32 [facility] Comment on above: Hemolysis present, R esults could be affected. Lipaseon 11-05-2024 Lipase [Catalytic activity/Vol] 22 U/L Normal 13-75 [facility] Comment on above: Result Comment: Gabriella elaine note:LIPASE revised reference range effective 22.New Lipase methodology. Expected to produce lower valuesthan the previous assay method.NEW Reference Range: 13 - 75 U/L Performed By: #### L 501.4021, L100.0100, L501.2450, L500.4050 ####[facility] [address] [place], [place], [address] Lipase measurementOrdered By : Chato Yang on 11-05-2024 Lipase [Catalytic activity/Vol] 22 U/L 13-75 [facility] Comment on above: Please note:LIPASE r evised reference range effective 22. New Lipase methodology. Expected to produce lower values than the previous assay method. NEW Reference Range: 13 - 75 U/L Lymphocytes Auto (Unsp spec) [#/Vol]Ordered By: Chato Yang on 11-05-2024 Lymphocytes (Bld) [#/Vol] 2.45 10*3/uL 0.83-4.51 [facility] Lymphocytes/100 WBC Auto (Un sp spec)Ordered By: Chato Yang on 11-05-2024 Lymphocytes/100 WBC (Bld) 29.2 % 19-41 [facility] MCV (mean corpuscular volume ) determinationOrdered By: Chato Yang on 11-05-2024 MCV (RBC) [Entitic vol] 89.8 fL 81-99 [facility] Mean corpuscular hemoglobin (MCH) determinationOrdered By: Chato Yang on 11-05-2024 MCH (RBC) [Entitic mass] 31.2 pg 27.0-32.0 [facility] Mean corpuscular hemoglobin concentration (MCHC) determinationOrdered By: Chato Yang on 11-05-2024 MCHC (RBC) [Mass/Vol] 34.8 g/dL 32-36 [facility] Mean platelet volume determi nationOrdered By: Chato Yang on 11-05-2024 Platelet mean volume (Bld) [Entitic vol] 8.7 fL 6.2-12.0 [facility] Microscopic analysis of urin e for red blood cells (RBC)Ordered By: Chato Yang on 11-05-2024 Microscopic analysis of urine for red blood cells (RBC) 0 SEEN /hpf 0-5 [facility] Urine RBC 0 SEEN /hpf 0-5 [facility] Monocyte percentageOrdered B y: Chato Yang on 11-05-2024 Monocytes/100 WBC (Bld) 11.1 % High 0-10 [facility] Mucus LM Ql (Urine sed)Order ed By: Chato Yang on 11-05-2024 Mucus Ql (Urine sed) 2+ /hpf [facility] Neutrophil percentageOrdered By: Chato Yang on 11-05-2024 Neutrophils/100 WBC (Bld) 57.3 % 47-70 [facility] Nitrite Test strip Ql (U)Ord ered By: Chato Yang on 11-05-2024 Nitrite Ql (U) Positive High Negative [facility] Nucleated red blood cell per centageOrdered By: Chato Yang on 11-05-2024 Nucleated RBC/100 WBC (Bld) [Ratio] 0 % 0-5 [facility] Platelet countOrdered By: Crow Yang on 11-05-2024 Platelets (Bld) [#/Vol] 238 10*3/uL 150-450 [facility] Potassium (Unsp spec) [Mass/ Vol]Ordered By: Chato Yang on 11-05-2024 Potassium [Moles/Vol] 3.9 mmol/L 3.3-5.1 [facility] Comment on above: Hemolysis present, R esults could be affected. Potassium measurement (mass/ volume)Ordered By: Chato Yang on 11-05-2024 Potassium (Unsp spec) [Mass/Vol] 3.9 mmol/L 3.3-5.1 [facility] Comment on above: Hemolysis present, R esults could be affected. Protein Test strip Ql (U)Ord ered By: Chato Yang on 11-05-2024 Protein Ql (U) 30 mg/dl High Negative [facility] RBC Auto (Bld) [#/Vol]Ordere d By: Chtao Yang on 11-05-2024 RBC (Bld) [#/Vol] 4.71 10*6/uL 4.2-5.4 [facility] Serum creatinine measurement (mass/volume)Ordered By: Chato Yang on 11-05-2024 Creatinine [Mass/Vol] 0.86 mg/dL 0.70-1.20 [facility] Serum globulin measurementOr dered By: Chato Yang on 11-05-2024 Globulin (S) [Mass/Vol] 2.8 g/dL 2.2-4.2 [facility] Serum glucose measurement (m ass/volume)Ordered By: Chato Yang on 11-05-2024 Glucose [Mass/Vol] 95 mg/dL 70-99 [facility] Serum or plasma alanine cooper otransferase (ALT) measurementOrdered By: Chato Yang on 11-05-2024 ALT [Catalytic activity/Vol] 11 U/L <35 [facility] Serum or plasma albumin raine urement (mass/volume)Ordered By: Chato Yang on 11-05-2024 Albumin [Mass/Vol] 3.8 g/dL 3.4-4.8 [facility] Serum or plasma albumin/glob ulin mass ratioOrdered By: Chato Yang on 11-05-2024 Albumin/Globulin [Mass ratio] 1.4 {ratio} 0.9-2.4 [facility] Serum or plasma alkaline haven sphatase measurementOrdered By: Chato Yang on 11-05-2024 ALP [Catalytic activity/Vol] 74 U/L 35-104 [facility] Serum or plasma calcium raine urement (mass/volume)Ordered By: Chato Yang on 11-05-2024 Calcium [Mass/Vol] 9.2 mg/dL 7.6-11.0 [facility] Serum or plasma urea nitroge n measurement (mass/volume)Ordered By: Chato Yang on 11-05-2024 Urea nitrogen [Mass/Vol] 17 mg/dL 4-19 [facility] Sodium levelOrdered By: Chato Yang on 11-05-2024 Sodium [Moles/Vol] 140 mmol/L 133-145 [facility] Squamous epithelial cells de tection in urine sediment by light microscopyOrdered By: Chato Yang 11-05-2024 Epithelial cells.squamous LM Ql (Urine sed) 0-5 SEEN /hpf 5-10 [facility] Total proteinOrdered By: Gela Yang on 11-05-2024 Protein [Mass/Vol] 6.6 g/dL 5.9-8.4 [facility] Troponin T.cardiac High sens itivity method [Mass/Vol]Ordered By: Chato Yang on 11-05-2024 Troponin T High Sensitivity 14 ng/L <14 [facility] Troponin T.cardiac [Mass/vol ume] in Serum or Plasma by High sensitivity methodOrdered By: Chato Yang 11-05-2024 Troponin T.cardiac High sensitivity method [Mass/Vol] 14 ng/L <14 [facility] Urinalysis, Completeon 11-05 BACTERIA 3+ /hpf Normal None Seen [facility] Comment on above: Order Comment: CLEAN CATCH Performed By: #### L 400.0001 ####[facility] [address] [place], [address] EPI,SQUAMOUS 0-5 SEEN Normal 5-10 [facility] Comment on above: Order Comment: CLEAN CATCH Performed By: #### L 400.0001 ####[facility] [address] [place], [address] Mucus Ql (Urine sed) 2+ /hpf Normal [facility] Comment on above: Order Comment: CLEAN CATCH Performed By: #### L 400.0001 ####[facility] [address] [place], [address] WBC 5-10 SEEN Normal 0-5 [facility] Comment on above: Order Comment: CLEAN CATCH Performed By: #### L 400.0001 ####[facility] [address] [place], [address] RBC 0 SEEN Normal 0-5 [facility] Comment on above: Order Comment: CLEAN CATCH Performed By: #### L 400.0001 ####[facility] [address] [place], [address] Urine blood detectionOrdered By: Chato Yang on 11-05-2024 Urine Occult Blood Negative Negative [facility] Urine clarityOrdered By: Gela Yang on 11-05-2024 Clarity (U) Sl. Cloudy Clear [facility] Urine color determinationOrd ered By: Chato Yang on 11-05-2024 Color (U) Yellow Yellow [facility] Urine cultureOrdered By: Edwige Gonzalez on 11-05-2024 Bacteria identified Cx Nom (U) Staphylococcus epidermidis Abnormal [facility] Urine glucose detectionOrder ed By: hCato Yang on 11-05-2024 Glucose Ql (U) Normal mg/dl Normal [facility] Urine leukocyte esterase det ection by dipstickOrdered By: Chato Yang on 11-05-2024 Leukocyte esterase Test strip Ql (U) 25 /ul High Negative [facility] Urine pHOrdered By: Chato cuenca on 11-05-2024 pH (U) 6.0 [pH] 5.0 - 8.0 [facility] Urine sediment bacteria coun t by microscopy (number/high power field)Ordered By: Chato Yang on 11-05-2024 Bacteria LM.HPF (Urine sed) [#/Area] 3 /[HPF] None Seen [facility] Urine specific gravity measu rementOrdered By: Chato Yang on 11-05-2024 Specific gravity (U) [Rel density] 1.015 1.002-1.030 [facility] Urine urobilinogen measureme ntOrdered By: Chato Yang on 11-05-2024 Urobilinogen Ql (U) Normal mg/dl Normal [facility] Urobilinogen Ql (U)Ordered B y: Chato Yang on 11-05-2024 Urine Urobilinogen Normal mg/dl Normal [facility] White blood cell (WBC) count Ordered By: Chato Yang on 11-05-2024 WBC (Bld) [#/Vol] 8.4 10*3/uL 4.4-11.0 [facility] White blood cell countOrdere d By: Chato Yang on 11-05-2024 Urine WBC 5-10 SEEN /hpf 0-5 [facility] White blood cell count 5-10 SEEN /hpf 0-5 [facility] CBC W/Diff, Automatedon 10-10 PATH REV Reviewed Normal [facility] Comment on above: Result Comment: SEE REPORT IN PATIENT'S EMR AMENDED REPORT 10/27/24 1146 PATH REV previously reported as: November Performed By: #### L 300.8000, L300.4310, L300.3900, L100.0100 ####[facility] [address] [place], [address] Absolute neutrophil countOrd ered By: Nelson Hobson on 09-25-2024 Neutrophils (Bld) [#/Vol] 9.9 10*3/uL High 2.0-7.7 [facility] Comment on above: Previous reported re sult: 10.1 X10^3/uLEdited by: POLLY on 09/25/24:1331 AMENDED REPORT 09/25/24 1331 Absolute Neut previously reported as: 10.1 H X10^3/uL Activated partial thrombopla stin time (aPTT) in platelet poor plasma by coagulation aOrdered By: Nelson Hobson on 09-25-2024 aPTT Coag (PPP) [Time] 25.2 s 24.1-36.2 [facility] Basophil percentageOrdered B y: Nelson Hobson on 09-25-2024 Basophils (%) (Auto) [employer] [facility] Comment on above: Previous reported re sult: 0.8 %Edited by: POLLY on 09/25/24:1330 AMENDED REPORT 09/25/24 1330 BASO% previously reported as: 0.8 % Blood lymphocytes/100 leukoc ytesOrdered By: Nelson Hobson on 09-25-2024 Lymphocytes/100 WBC (Bld) 28 % 19-41 [facility] Blood metamyelocytes/100 reji kocytesOrdered By: Nelson Hobson on 09-25-2024 Metamyelocytes/100 WBC (Bld) 2 % High 0-1 [facility] Blood monocytes/100 leukocyt esOrdered By: Nelson Hobson on 09-25-2024 Monocytes/100 WBC (Bld) 7 % 0-10 [facility] Blood polychromasia detectio n by light microscopyOrdered By: Nelson Hosbon on 09-25-2024 Polychromasia LM Ql (Bld) 1+ [facility] Blood segmented neutrophils/ 100 leukocytesOrdered By: Nelson Hobson on 09-25-2024 Segmented neutrophils/100 WBC (Bld) 62 % 47-70 [facility] Cells counted Molgen (Bld/Ti ss) [#]Ordered By: Nelson Hobson on 09-25-2024 Differential Total Cells Counted 100 MANUAL DIFF [facility] D-Dimer Quantitative (DVT/PE )on 09-25-2024 D-DIMER QUANT 0.43 FEU/ug/m Normal 0.27-0.49 [facility] Comment on above: Result Comment: NORM AL D-Dimer level (<0.50) indicates no DVT or PE. Performed By: #### L 300.8000, L300.4310, L300.3900, L100.0100 ####[facility] [address] [place], [address] D-dimer measurement for deep venous thrombosisOrdered By: Nelson Hobson on 09-25-2024 D-Dimer Quantitative (PE/DVT) 0.43 FEU/ug/m 0.27-0.49 [facility] Comment on above: NORMAL D-Dimer level (<0.50) indicates no DVT or PE. Eosinophil percentageOrdered By: Nelson Hobson on 09-25-2024 Eosinophils (%) (Auto) [employer] [facility] Comment on above: Previous reported re sult: 0.3 %Edited by: POLLY on 09/25/24:1329 AMENDED REPORT 09/25/24 1329 EO% previously reported as: 0.3 % Erythrocyte distribution wid th (RBC) [Ratio]Ordered By: [facility] Erythrocyte distribution width (RBC) [Entitic vol] 45.3 fL High 35.1-43.9 [facility] Erythrocyte distribution wid th ratioOrdered By: [facility] on 09-25-2024 Erythrocyte distribution width (RBC) [Ratio] 14.0 % 11.6-14.6 [facility] Hematocrit Auto (Bld) [Volum e fraction]Ordered By: Nelson Hobson on 09-25-2024 Hematocrit (Bld) [Volume fraction] 47.3 % High 37-47 [facility] Hemoglobin measurementOrdere d By: Nelson Hobson on 09-25-2024 Hemoglobin (Bld) [Mass/Vol] 16.3 g/dL High 12.0-15.0 [facility] Immature granulocytes/100 WB C Auto (Bld)Ordered By: Nelson Hobson on 09-25-2024 Immature Granulocyte % (Auto) CRM [employer] [facility] Comment on above: Previous reported re sult: 3.300 %Edited by: POLLY on 09/25/24:1330 AMENDED REPORT 09/25/24 1330 IM GRAN % previously reported as: 3.300 H % IG% - Immature Granulocytes (promyelocytes, myelocytes and metamyelocytes) > 1% indicates that a LEFT SHIFT is Present. International normalized rat io (INR) calculationOrdered By: Nelson Hobson on 09-25-2024 INR Coag (Bld) [Relative time] 1.2 {INR} [facility] Lymphocytes Auto (Unsp spec) [#/Vol]Ordered By: Nelson Hobson on 09-25-2024 Lymphocytes (Bld) [#/Vol] 4.45 10*3/uL 0.83-4.51 [facility] Comment on above: Previous reported re sult: 3.41 X10^3/uLEdited by: POLLY on 09/25/24:1331 AMENDED REPORT 09/25/24 1331 Absolute Lymph previously reported as: 3.41 X10^3/uL Lymphocytes/100 WBC Auto (Un sp spec)Ordered By: Nelson Hobson on 09-25-2024 Lymphocytes (%) (Auto) CRM TECHNICAL LEAD [facility] Comment on above: Previous reported re [...] (RBC) [Entitic mass] 30.7 pg 27.0-32.0 [facility] Mean corpuscular hemoglobin concentration (MCHC) determinationOrdered By: Nelson Hobson on 09-25-2024 MCHC (RBC) [Mass/Vol] 34.5 g/dL 32-36 [facility] Mean platelet volume determi nationOrdered By: Nelson Hobson on 09-25-2024 Platelet mean volume (Bld) [Entitic vol] 9.3 fL 6.2-12.0 [facility] Monocyte percentageOrdered B y: Nelson Hobson on 09-25-2024 Monocytes (%) (Auto) CRM TECH[employer]ICAL LEAD [facility] Comment on above: Previous reported re sult: 10.6 %Edited by: POLLY on 09/25/24:1329 AMENDED REPORT 09/25/24 1329 MONO% previously reported as: 10.6 H % Myelocyte %Ordered By: Bharat Hobson on 09-25-2024 Myelocytes/100 WBC (Bld) 1 % High 0-0 [facility] Neutrophil percentageOrdered By: Nelson Hobson on 09-25-2024 Neutrophils (%) (Auto) CRM TE[employer]ICAL LEAD [facility] Comment on above: Previous reported re sult: 63.5 %Edited by: POLLY on 09/25/24:1329 AMENDED REPORT 09/25/24 1329 NEUT% previously reported as: 63.5 % Nucleated red blood cell per centageOrdered By: Nelson Hobson on 09-25-2024 Nucleated RBC/100 WBC (Bld) [Ratio] 0 % 0-5 [facility] Oncology Visit Reporton 09-09 Oncology Visit Report Normal [facility] Partial Thromboplast Timeon 09-25-2024 aPTT Coag (Bld) [Time] 25.2 s Normal 24.1-36.2 [facility] Comment on above: Performed By: #### L 300.8000, L300.4310, L300.3900, L100.0100 ####[facility] [address] [place], [address] Pathologist review Froilan (Unsp spec) [Interp]Ordered By: Nelson Hobson on 09-25-2024 Differential Pathologist's Review Reviewed [facility] Comment on above: Previous reported re sult: November shana Edited by: ANDERS on 10/27/24:1146SEE REPORT IN PATIENT'S EMR AMENDED REPORT 10/27/24 1146 PATH REV previously reported as: Cici saldana Platelet countOrdered By: Niya Hobson on 09-25-2024 Platelets (Bld) [#/Vol] 373 10*3/uL 150-450 [facility] Platelet estimateOrdered By: Nelson Hobson on 09-25-2024 Platelets LM Ql (Bld) A ADEQ [facility] Platelets LM Ql (Bld)Ordered By: Nelson Hobson on 09-25-2024 Platelet Estimate A [facility] Polychromasia LM Ql (Bld)Ord ered By: Nelson Hobson on 09-25-2024 Polychromasia 1+ [facility] Prothrombin Time w/INRon INR Coag (PPP) [Relative time] 1.2 {INR} Normal [facility] Comment on above: Performed By: #### L 300.8000, L300.4310, L300.3900, L100.0100 ####[facility] [address] [place], [address] PT Coag (PPP) [Time] 15.6 s High 11.7-14.9 [facility] Comment on above: Performed By: #### L 300.8000, L300.4310, L300.3900, L100.0100 ####[facility] [address] [place], [address] Prothrombin timeOrdered By: Nelson Hobson on 09-25-2024 PT Coag (PPP) [Time] 15.6 s High 11.7-14.9 [facility] RBC Auto (Bld) [#/Vol]Ordere d By: Nelson Hobson on 09-25-2024 RBC (Bld) [#/Vol] 5.31 10*6/uL 4.2-5.4 [facility] Reactive lymphocyte countOrd ered By: Nelson Hobson on 09-25-2024 Reactive Lymphocytes 3+ [facility] Review by pathologistOrdered By: Nelson Hobson on 09-25-2024 Pathologist review Froilan (Unsp spec) [Interp] Reviewed [facility] Comment on above: Previous reported re sult: Cici saldana Edited by: ANDERS on 10/27/24:1146SEE REPORT IN PATIENT'S EMR AMENDED REPORT 10/27/24 1146 PATH REV previously reported as: Cici saldana Segmented neutrophils/100 WB C (Bld)Ordered By: Nelson Hobson on 09-25-2024 Neutrophils/100 WBC (Bld) 62 % 47-70 [facility] Total cell countOrdered By: Nelson Hobson on 09-25-2024 Cells counted Molgen (Bld/Tiss) [#] 100 MANUAL DIFF [facility] White blood cell (WBC) count Ordered By: Nelson Hobson on 09-25-2024 WBC (Bld) [#/Vol] 15.9 10*3/uL High 4.4-11.0 [facility] aPTT Coag (PPP) [Time]Ordere d By: Nelson Hobson on 09-25-2024 aPTT Coag (Bld) [Time] 25.2 s 24.1-36.2 [facility] Brain/Head without Contrasto n 09-16-2024 Brain/Head without Contrast Normal [facility] Emergency Department Summary on 09-16-2024 Emergency Department Summary Normal [facility] Absolute lymphocyte countOrd ered By: Ed Bowman on 09-12-2024 Lymphocytes Auto (Unsp spec) [#/Vol] 2.69 10*3/uL 0.83-4.51 [facility] Absolute neutrophil countOrd ered By: Ed Bowman on 09-12-2024 Neutrophils (Bld) [#/Vol] 6.8 10*3/uL 2.0-7.7 [facility] Anion gap in Serum or Plasma Ordered By: Ed Bowman on 09-12-2024 Anion gap [Moles/Vol] 15 mmol/L 5-15 [facility] Automated lymphocyte count a s percentage of total leukocytesOrdered By: Ed Bowman on 09-12-2024 Lymphocytes/100 WBC Auto (Unsp spec) 25.0 % 19-41 [facility] BUN/creatinine ratioOrdered By: Ed Bowman on 09-12-2024 Urea nitrogen/Creatinine [Mass ratio] 22.0 mg/mg High 10-20 [facility] Basophil percentageOrdered B y: Ed Bowman on 09-12-2024 Basophils/100 WBC (Bld) 0.8 % 0-1 [facility] Bilirubin, totalOrdered By: Ed Bowman on 09-12-2024 Bilirubin [Mass/Vol] 0.40 mg/dL 0.00-1.30 [facility] CBC W/Diff, Automatedon 03-0 4-2024 Absolute Lymph 2.69 X10 3/uL Normal 0.83-4.51 [facility] Comment on above: Performed By: #### L 506.1001, L500.4050, L501.9985, L500.4100, L501.9520, L100.0100 ####[facility] [address] [place], [address] Absolute Neut 6.8 X10 3/uL Normal 2.0-7.7 [facility] Comment on above: Performed By: #### L 506.1001, L500.4050, L501.9985, L500.4100, L501.9520, L100.0100 ####[facility] [address] [place], [address] Basophils/100 WBC (Bld) 0.8 % Normal 0-1 [facility] Comment on above: Performed By: #### L 506.1001, L500.4050, L501.9985, L500.4100, L501.9520, L100.0100 ####[facility] [address] [place], [address] Eosinophils/100 WBC (Bld) 0.6 % Normal 0-5 [facility] Comment on above: Performed By: #### L 506.1001, L500.4050, L501.9985, L500.4100, L501.9520, L100.0100 ####[facility] [address] [place], [address] Erythrocyte distribution width (RBC) [Ratio] 14.6 % Normal 11.6-14.6 [facility] Comment on above: Performed By: #### L 506.1001, L500.4050, L501.9985, L500.4100, L501.9520, L100.0100 ####[facility] [address] [place], [address] Hematocrit (Bld) [Volume fraction] 43.0 % Normal 37-47 [facility] Comment on above: Performed By: #### L 506.1001, L500.4050, L501.9985, L500.4100, L501.9520, L100.0100 ####[facility] [address] [place], [address] Hemoglobin (Bld) [Mass/Vol] 14.9 g/dL Normal 12.0-15.0 [facility] Comment on above: Performed By: #### L 506.1001, L500.4050, L501.9985, L500.4100, L501.9520, L100.0100 ####[facility] [address] [place], [address] IG% 1.500 High 0.0-0.9 [facility] Comment on above: Result Comment: IG% - Immature Granulocytes (promyelocytes, myelocytes andmetamyelocytes) > 1% indicates that a LEFT SHIFT is Present. Performed By: #### L 506.1001, L500.4050, L501.9985, L500.4100, L501.9520, L100.0100 ####[facility] [address] [place], [address] Lymphocytes/100 WBC (Bld) 25.0 % Normal 19-41 [facility] Comment on above: Performed By: #### L 506.1001, L500.4050, L501.9985, L500.4100, L501.9520, L100.0100 ####[facility] [address] [place], [address] MCH (RBC) [Entitic mass] 30.8 pg Normal 27.0-32.0 [facility] Comment on above: Performed By: #### L 506.1001, L500.4050, L501.9985, L500.4100, L501.9520, L100.0100 ####[facility] [address] [place], [address] MCHC (RBC) [Mass/Vol] 34.7 g/dL Normal 32-36 [facility] Comment on above: Performed By: #### L 506.1001, L500.4050, L501.9985, L500.4100, L501.9520, L100.0100 ####[facility] [address] [place], [address] MCV (RBC) [Entitic vol] 88.8 fL Normal 81-99 [facility] Comment on above: Performed By: #### L 506.1001, L500.4050, L501.9985, L500.4100, L501.9520, L100.0100 ####[facility] [address] [place], [address] Monocytes/100 WBC (Bld) 8.4 % Normal 0-10 [facility] Comment on above: Performed By: #### L 506.1001, L500.4050, L501.9985, L500.4100, L501.9520, L100.0100 ####[facility] [address] [place], [address] Neutrophils/100 WBC (Bld) 63.7 % Normal 47-70 [facility] Comment on above: Performed By: #### L 506.1001, L500.4050, L501.9985, L500.4100, L501.9520, L100.0100 ####[facility] [address] [place], [address] Nucleated RBC (Bld) [#/Vol] 0 10*3/uL Normal 0-5 [facility] Comment on above: Performed By: #### L 506.1001, L500.4050, L501.9985, L500.4100, L501.9520, L100.0100 ####[facility] [address] [place], [address] Platelet mean volume (Bld) [Entitic vol] 9.5 fL Normal 6.2-12.0 [facility] Comment on above: Performed By: #### L 506.1001, L500.4050, L501.9985, L500.4100, L501.9520, L100.0100 ####[facility] [address] [place], [address] Platelets (Bld) [#/Vol] 291 10*3/uL Normal 150-450 [facility] Comment on above: Performed By: #### L 506.1001, L500.4050, L501.9985, L500.4100, L501.9520, L100.0100 ####[facility] [address] [place], [address] RBC (Bld) [#/Vol] 4.84 10*6/uL Normal 4.2-5.4 [facility] Comment on above: Performed By: #### L 506.1001, L500.4050, L501.9985, L500.4100, L501.9520, L100.0100 ####[facility] [address] [place], [address] RDW SD 47.6 fl High 35.1-43.9 [facility] Comment on above: Performed By: #### L 506.1001, L500.4050, L501.9985, L500.4100, L501.9520, L100.0100 ####[facility] [address] [place], [address] WBC (Bld) [#/Vol] 10.7 10*3/uL Normal 4.4-11.0 [facility] Comment on above: Performed By: #### L 506.1001, L500.4050, L501.9985, L500.4100, L501.9520, L100.0100 ####[facility] [address] [place], [address] Calculated very low density lipoprotein (VLDL) cholesterol measurementOrdered By: Ed Bowman on 09-12-2024 Calculated very low density lipoprotein (VLDL) cholesterol measurement 42 mg/dL High 5-40 [facility] VLDL Cholesterol 42 mg/dL High 5-40 [facility] Carbon dioxide, total [Moles /volume] in Central venous bloodOrdered By: Ed Bowman on 09-12-2024 CO2 [Moles/Vol] 21.2 mmol/L 21.0-32.0 [facility] Chloride assayOrdered By: Mihir Bowman on 09-12-2024 Chloride [Moles/Vol] 107 mmol/L 98-108 [facility] Comprehensive Metabolic Prof ilon 09-12-2024 Albumin [Mass/Vol] 3.8 g/dL Normal 3.4-4.8 [facility] Comment on above: Performed By: #### L 506.1001, L500.4050, L501.9985, L500.4100, L501.9520, L100.0100 ####[facility] [address] [place], [address] Albumin/Globulin [Mass ratio] 1.4 {ratio} Normal 0.9-2.4 [facility] Comment on above: Performed By: #### L 506.1001, L500.4050, L501.9985, L500.4100, L501.9520, L100.0100 ####[facility] [address] [place], [address] ALK PHOS 85 U/L Normal 35-104 [facility] Comment on above: Performed By: #### L 506.1001, L500.4050, L501.9985, L500.4100, L501.9520, L100.0100 ####[facility] [address] [place], [address] ALT [Catalytic activity/Vol] 16 U/L Normal <=34 [facility] Comment on above: Performed By: #### L 506.1001, L500.4050, L501.9985, L500.4100, L501.9520, L100.0100 ####[facility] [address] [place], [address] AST [Catalytic activity/Vol] 22 U/L Normal <=31 [facility] Comment on above: Performed By: #### L 506.1001, L500.4050, L501.9985, L500.4100, L501.9520, L100.0100 ####[facility] [address] [place], [address] Bilirubin [Mass/Vol] 0.40 mg/dL Normal 0.00-1.30 [facility] Comment on above: Performed By: #### L 506.1001, L500.4050, L501.9985, L500.4100, L501.9520, L100.0100 ####[facility] [address] [place], [address] BUN/CRE 22.0 RATIO High 10-20 [facility] Comment on above: Performed By: #### L 506.1001, L500.4050, L501.9985, L500.4100, L501.9520, L100.0100 ####[facility] [address] [place], [address] Calcium [Mass/Vol] 9.3 mg/dL Normal 7.6-11.0 [facility] Comment on above: Performed By: #### L 506.1001, L500.4050, L501.9985, L500.4100, L501.9520, L100.0100 ####[facility] [address] [place], [address] Chloride [Moles/Vol] 107 mmol/L Normal 98-108 [facility] Comment on above: Performed By: #### L 506.1001, L500.4050, L501.9985, L500.4100, L501.9520, L100.0100 ####[facility] [address] [place], [address] CO2 [Moles/Vol] 21.2 mmol/L Normal 21.0-32.0 [facility] Comment on above: Performed By: #### L 506.1001, L500.4050, L501.9985, L500.4100, L501.9520, L100.0100 ####[facility] [address] [place], [address] Creatinine [Mass/Vol] 0.76 mg/dL Normal 0.70-1.20 [facility] Comment on above: Performed By: #### L 506.1001, L500.4050, L501.9985, L500.4100, L501.9520, L100.0100 ####[facility] [address] [place], [address] GAP 15 Normal 5-15 [facility] Comment on above: Performed By: #### L 506.1001, L500.4050, L501.9985, L500.4100, L501.9520, L100.0100 ####[facility] [address] [place], [address] GFR/1.73 sq M.predicted among non-blacks MDRD (S/P/Bld) [Vol rate/Area] 82 mL/min/{1.73_m2} Normal >60 [facility] Comment on above: Result Comment: mL/m in/1.73m2 CKD-EPI Creatinine Equation (2020) Performed By: #### L 506.1001, L500.4050, L501.9985, L500.4100, L501.9520, L100.0100 ####[facility] [address] [place], [address] Globulin (S) [Mass/Vol] 2.8 g/dL Normal 2.2-4.2 [facility] Comment on above: Performed By: #### L 506.1001, L500.4050, L501.9985, L500.4100, L501.9520, L100.0100 ####[facility] [address] [place], [address] Glucose [Mass/Vol] 145 mg/dL High 70-99 [facility] Comment on above: Performed By: #### L 506.1001, L500.4050, L501.9985, L500.4100, L501.9520, L100.0100 ####[facility] [address] [place], [address] Potassium [Moles/Vol] 3.2 mmol/L Low 3.3-5.1 [facility] Comment on above: Performed By: #### L 506.1001, L500.4050, L501.9985, L500.4100, L501.9520, L100.0100 ####[facility] [address] [place], [address] Sodium [Moles/Vol] 143 mmol/L Normal 133-145 [facility] Comment on above: Performed By: #### L 506.1001, L500.4050, L501.9985, L500.4100, L501.9520, L100.0100 ####[facility] [address] [place], [address] T PROT 6.6 g/dL Normal 5.9-8.4 [facility] Comment on above: Performed By: #### L 506.1001, L500.4050, L501.9985, L500.4100, L501.9520, L100.0100 ####[facility] [address] [place], [address] Urea nitrogen [Mass/Vol] 17 mg/dL Normal 4-19 [facility] Comment on above: Performed By: #### L 506.1001, L500.4050, L501.9985, L500.4100, L501.9520, L100.0100 ####[facility] [address] [place], [address] Eosinophil percentageOrdered By: Ed Bowman on 09-12-2024 Eosinophils/100 WBC (Bld) 0.6 % 0-5 [facility] Erythrocyte distribution wid th ratioOrdered By: Ed Bowman on 09-12-2024 Erythrocyte distribution width (RBC) [Ratio] 14.6 % 11.6-14.6 [facility] Erythrocyte distribution wid th standard deviationOrdered By: Ed Bowman on 09-12-2024 Erythrocyte distribution width (RBC) [Entitic vol] 47.6 fL High 35.1-43.9 [facility] Erythrocyte distribution width (RBC) [Ratio] 47.6 fl High 35.1-43.9 [facility] GFR/1.73 sq M.predicted tammy g non-blacks MDRD (S/P/Bld) [Vol rate/Area]Ordered By: Ed Bowman 09-12-2024 Estimated GFR (MDRD) Non-Af Amer 82 >60 [facility] Comment on above: mL/min/1.73m2 CKD-EP I Creatinine Equation (2020) Glomerular filtration rate ( GFR) estimation/1.73 sq m using serum, plasma, or whole bOrdered By: Ed Bowman 09-12-2024 GFR/1.73 sq M.predicted among non-blacks MDRD (S/P/Bld) [Vol rate/Area] 82 mL/min/{1.73_m2} >60 [facility] Comment on above: mL/min/1.73m2 CKD-EP I Creatinine Equation (2020) Hematocrit Auto (Bld) [Volum e fraction]Ordered By: Ed Bowman 09-12-2024 Hematocrit (Bld) [Volume fraction] 43.0 % 37-47 [facility] Hemoglobin A1con 09-12-2024 HbA1c (Bld) [Mass fraction] 5.5 % Low <=5.6 [facility] Comment on above: Order Comment: [id number] Performed By: #### L 506.1001, L500.4050, L501.9985, L500.4100, L501.9520, L100.0100 ####[facility] [address] [place], [place], [address] Hemoglobin A1c percentageOrd ered By: Ed Bowman on 09-12-2024 HbA1c (Bld) [Mass fraction] 5.5 % Low >5.7 [facility] Hemoglobin measurementOrdere d By: Ed Bowman on 09-12-2024 Hemoglobin (Bld) [Mass/Vol] 14.9 g/dL 12.0-15.0 [facility] Immature granulocytes/100 WB C Auto (Bld)Ordered By: Ed Bowman on 09-12-2024 Immature granulocytes/100 WBC (Bld) 1.500 % High 0.0-0.9 [facility] Comment on above: IG% - Immature Granu locytes (promyelocytes, myelocytes and metamyelocytes) > 1% indicates that a LEFT SHIFT is Present. L506.1001on 09-12-2024 Vitamin D 25-OH 35.5 ng/mL Normal 30-100 [facility] Comment on above: Result Comment: Luda min D StatusDeficiency: <20 ng/mL (50nmol/L)Insufficiency: 20-30 ng/mL (50-75 nmol/L)Sufficiency: 30-100 ng/mL (75-250 nmol/L)Toxicity: >100 ng/mL (>250 nmol/L) Performed By: #### L 506.1001, L500.4050, L501.9985, L500.4100, L501.9520, L100.0100 ####[facility] [address] [place], [address] LDL calc ser/plasOrdered By: Ed Bowman on 09-12-2024 Cholesterol in LDL [Mass/Vol] 136 mg/dL [facility] Comment on above: Tfdvkaypdv=565-428 m g/dL & Higher Lhpl=497 mg/dL or greater LDL Cholesterol, Calculated 136 mg/dL [facility] Comment on above: Grgnaudbqb=299-230 m g/dL & Higher Oyzt=122 mg/dL or greater Laboratory - Chemistry and C hemistry - challengeOrdered By: Ed Bowman on 09-12-2024 AST [Catalytic activity/Vol] 22 U/L <32 [facility] Lipid Profileon 09-12-2024 CHOL:HDL 4.53 Normal [facility] Comment on above: Performed By: #### L 506.1001, L500.4050, L501.9985, L500.4100, L501.9520, L100.0100 ####[facility] [address] [place], [address] Cholesterol [Mass/Vol] 229 mg/dL High <=200 [facility] Comment on above: Result Comment: Chol esterol level, Desirable <200 mg/dLBorderline high cholesterol 200-239 mg/dLHigh cholesterol >=240 mg/dLRecommendations of the NCEP Adult Treatment Panel for thefollowing risk-cutoff thresholds for the [place] Americanpulation. Performed By: #### L 506.1001, L500.4050, L501.9985, L500.4100, L501.9520, L100.0100 ####[facility] [address] [place], [address] Cholesterol in HDL [Mass/Vol] 51 mg/dL Normal [facility] Comment on above: Result Comment: Michelle onal Cholesterol Education Program (NCEP) guidelines:<40 mg/dL: Low HDL-cholesterol (major risk factor for CHD)>= 60 mg/dL: High HDL-cholesterol (negative risk factor forCHD)HDL-cholesterol is affected by a number of factors, e.g.smoking, exercise, hormones, sex and age. Performed By: #### L 506.1001, L500.4050, L501.9985, L500.4100, L501.9520, L100.0100 ####[facility] [address] [place], [address] Cholesterol in LDL [Mass/Vol] 136 mg/dL Normal [facility] Comment on above: Result Comment: Bord sbkjod=942-511 mg/dL Higher Gdmy=174 mg/dL or greater Performed By: #### L 506.1001, L500.4050, L501.9985, L500.4100, L501.9520, L100.0100 ####[facility] [address] [place], [address] Cholesterol in VLDL [Mass/Vol] 42 mg/dL High 5-40 [facility] Comment on above: Performed By: #### L 506.1001, L500.4050, L501.9985, L500.4100, L501.9520, L100.0100 ####[facility] [address] [place], [address] Triglyceride [Mass/Vol] 210 mg/dL High [facility] Comment on above: Result Comment: The drugs N-Acetylcysteine and Metamizole may falselydepress this assay.Normal range: <150 mg/dLBorderline High: 150-199 mg/dLHigh: 200-499 mg/dLVery High: >500 mg/dL Performed By: #### L 506.1001, L500.4050, L501.9985, L500.4100, L501.9520, L100.0100 ####[facility] [address] [place], [address] Lymphocytes Auto (Unsp spec) [#/Vol]Ordered By: Ed Bowman on 09-12-2024 Lymphocytes (Bld) [#/Vol] 2.69 10*3/uL 0.83-4.51 [facility] Lymphocytes/100 WBC Auto (Un sp spec)Ordered By: Ed Bowman on 09-12-2024 Lymphocytes/100 WBC (Bld) 25.0 % 19-41 [facility] MCV (mean corpuscular volume ) determinationOrdered By: Ed Bowman on 09-12-2024 MCV (RBC) [Entitic vol] 88.8 fL 81-99 [facility] Mean corpuscular hemoglobin (MCH) determinationOrdered By: Ed Bowman on 09-12-2024 MCH (RBC) [Entitic mass] 30.8 pg 27.0-32.0 [facility] Mean corpuscular hemoglobin concentration (MCHC) determinationOrdered By: Ed Bowman on 09-12-2024 MCHC (RBC) [Mass/Vol] 34.7 g/dL 32-36 [facility] Mean platelet volume determi nationOrdered By: Ed Bowman on 09-12-2024 Platelet mean volume (Bld) [Entitic vol] 9.5 fL 6.2-12.0 [facility] Monocyte percentageOrdered B y: Ed Bowman on 09-12-2024 Monocytes/100 WBC (Bld) 8.4 % 0-10 [facility] Neutrophil percentageOrdered By: Ed Bowman on 09-12-2024 Neutrophils/100 WBC (Bld) 63.7 % 47-70 [facility] Nucleated red blood cell per centageOrdered By: Ed Bowman on 09-12-2024 Nucleated RBC/100 WBC (Bld) [Ratio] 0 % 0-5 [facility] Platelet countOrdered By: Mihir Bowman on 09-12-2024 Platelets (Bld) [#/Vol] 291 10*3/uL 150-450 [facility] Potassium (Unsp spec) [Mass/ Vol]Ordered By: Ed Bowman on 09-12-2024 Potassium [Moles/Vol] 3.2 mmol/L Low 3.3-5.1 [facility] Potassium measurement (mass/ volume)Ordered By: Ed Bowman on 09-12-2024 Potassium (Unsp spec) [Mass/Vol] 3.2 mmol/L Low 3.3-5.1 [facility] RBC Auto (Bld) [#/Vol]Ordere d By: Ed Bowman on 09-12-2024 RBC (Bld) [#/Vol] 4.84 10*6/uL 4.2-5.4 [facility] Screening total cholesterol/ high density lipoprotein (HDL) cholesterol ratioOrdered By: Ed Bowman on 09-12-2024 Cholesterol.total/Mikayla sterol in HDL [Mass ratio] 4.53 {ratio} [facility] Serum creatinine measurement (mass/volume)Ordered By: Ed Bowman on 09-12-2024 Creatinine [Mass/Vol] 0.76 mg/dL 0.70-1.20 [facility] Serum globulin measurementOr dered By: Ed Bowman on 09-12-2024 Globulin (S) [Mass/Vol] 2.8 g/dL 2.2-4.2 [facility] Serum glucose measurement (m ass/volume)Ordered By: Ed Bowman on 09-12-2024 Glucose [Mass/Vol] 145 mg/dL High 70-99 [facility] Serum or plasma alanine cooper otransferase (ALT) measurementOrdered By: Ed Bowman 09-12-2024 ALT [Catalytic activity/Vol] 16 U/L <35 [facility] Serum or plasma albumin raine urement (mass/volume)Ordered By: Ed Bowman on 09-12-2024 Albumin [Mass/Vol] 3.8 g/dL 3.4-4.8 [facility] Serum or plasma albumin/glob ulin mass ratioOrdered By: Ed Bowman 09-12-2024 Albumin/Globulin [Mass ratio] 1.4 {ratio} 0.9-2.4 [facility] Serum or plasma alkaline haven sphatase measurementOrdered By: Ed Bowman 09-12-2024 ALP [Catalytic activity/Vol] 85 U/L 35-104 [facility] Serum or plasma calcium raine urement (mass/volume)Ordered By: Ed Bowman 09-12-2024 Calcium [Mass/Vol] 9.3 mg/dL 7.6-11.0 [facility] Serum or plasma cholesterol in HDL measurement (mass/volume)Ordered By: Ed Bowman 09-12-2024 Cholesterol in HDL [Mass/Vol] 51 mg/dL >40 [facility] Comment on above: National Cholesterol Education Program (NCEP) guidelines:<40 mg/dL: Low HDL-cholesterol (major risk factor for CHD)>= 60 mg/dL: High HDL-cholesterol (negative risk factor for CHD)HDL-cholesterol is affected by a number of factors, e.g. smoking, exercise, hormones, sex and age. Serum or plasma cholesterol measurement (mass/volume)Ordered By: Ed Bowman on 09-12-2024 Cholesterol [Mass/Vol] 229 mg/dL High <201 [facility] Comment on above: Cholesterol level, D esirable <200 mg/dLBorderline high cholesterol 200-239 mg/dLHigh cholesterol >=240 mg/dLRecommendations of the NCEP Adult Treatment Panel for the following risk-cutoff thresholds for the [place] population. Serum or plasma urea nitroge n measurement (mass/volume)Ordered By: Ed Bowman on 09-12-2024 Urea nitrogen [Mass/Vol] 17 mg/dL 4-19 [facility] Sodium levelOrdered By: Ed Bowman on 09-12-2024 Sodium [Moles/Vol] 143 mmol/L 133-145 [facility] TSH DL <= 0.005 mIU/L QnOrde red By: Ed Bowman on 09-12-2024 Thyroid Stimulating Hormone (TSH) 1.710 uIU/mL 0.300-4.200 [facility] TSH Qn 1.710 uIU/mL 0.300-4.200 [facility] Thyroid Stim Hormone (TSH)on 09-12-2024 TSH 1.710 uIU/mL Normal 0.300-4.200 [facility] Comment on above: Performed By: #### L 506.1001, L500.4050, L501.9985, L500.4100, L501.9520, L100.0100 ####[facility] [address] [place], [address] Total proteinOrdered By: Ed Bowman on 09-12-2024 Protein [Mass/Vol] 6.6 g/dL 5.9-8.4 [facility] Triglycerides measurementOrd ered By: Ed Bowman on 09-12-2024 Triglyceride [Mass/Vol] 210 mg/dL High <199 [facility] Comment on above: The drugs N-Acetylcy steine and Metamizole may falsely depress this assay. Normal range: <150 mg/dLBorderline High: 150-199 mg/dLHigh: 200-499 mg/dLVery High: >500 mg/dL Vitamin D, 25-hydroxyOrdered By: Ed Bowman on 09-12-2024 Vitamin D 25-Hydroxy 35.5 ng/mL 30-100 [facility] Comment on above: Vitamin D StatusDefi ciency: <20 ng/mL (50nmol/L)Insufficiency: 20-30 ng/mL (50-75 nmol/L)Sufficiency: 30-100 ng/mL (75-250 nmol/L)Toxicity: >100 ng/mL (>250 nmol/L) White blood cell (WBC) count Ordered By: Ed Bowman on 09-12-2024 WBC (Bld) [#/Vol] 10.7 10*3/uL 4.4-11.0 [facility] MR/BMS.BVSon 07-18-2024 MR/BMS.BVS Normal [facility] Venous Duplex US, Unilateral on 06-30-2024 Venous Duplex US, Unilateral Normal [facility] 34-ZS-Fvohrmd DOrdered By: Fredo Bowman on 06-13-2024 Vitamin D 25-Hydroxy 45.7 ng/mL [facility] Comment on above: Vitamin D 25(OH) Sta tus Range Deficiency <20 ng/mL (50nmol/L) Insufficiency 20 - 30 ng/mL (50 - 75 nmol/L) Sufficiency 30 - 100 ng/mL (75 - 250 nmol/L) Toxicity >100 ng/mL (>250 nmol/L) Absolute neutrophil countOrd ered By: Ed Bowman on 06-13-2024 Neutrophils (Bld) [#/Vol] 4.8 10*3/uL 2.0-7.7 [facility] Albumin to globulin ratioOrd ered By: Ed Bowman on 06-13-2024 Albumin/Globulin [Mass ratio] 1.0 {ratio} 0.9-2.4 [facility] Basophil percentageOrdered B y: Ed Bowman on 06-13-2024 Basophils/100 WBC (Bld) 0.7 % 0-1 [facility] Bilirubin, totalOrdered By: Ed Bowman on 06-13-2024 Bilirubin [Mass/Vol] 0.50 mg/dL 0.20-1.[address] [facility] Comment on above: For patients on eltr ombopag therapy, use of Dimension Hallam TBIL is not recommended. Blood urea nitrogen (BUN)/cr eatinine ratioOrdered By: Ed Bowman on 06-13-2024 Urea nitrogen/Creatinine [Mass ratio] 16.7 mg/mg 10-20 [facility] CBC W/Diff, Automatedon 12-0 Absolute Lymph 2.32 X10 3/uL Normal 0.83-4.51 [facility] Comment on above: Performed By: #### L 100.0100, L500.4050, L501.9520, L500.4100, L506.1000 ####[facility] [address] [place], [address] Absolute Neut 4.8 X10 3/uL Normal 2.0-7.7 [facility] Comment on above: Performed By: #### L 100.0100, L500.4050, L501.9520, L500.4100, L506.1000 ####[facility] [address] [place], [address] Basophils/100 WBC (Bld) 0.7 % Normal 0-1 [facility] Comment on above: Performed By: #### L 100.0100, L500.4050, L501.9520, L500.4100, L506.1000 ####[facility] [address] [place], [address] Eosinophils/100 WBC (Bld) 1.6 % Normal 0-5 [facility] Comment on above: Performed By: #### L 100.0100, L500.4050, L501.9520, L500.4100, L506.1000 ####[facility] [address] [place], [address] Erythrocyte distribution width (RBC) [Ratio] 13.5 % Normal 11.6-14.6 [facility] Comment on above: Performed By: #### L 100.0100, L500.4050, L501.9520, L500.4100, L506.1000 ####[facility] [address] [place], [address] Hematocrit (Bld) [Volume fraction] 43.3 % Normal 37-47 [facility] Comment on above: Performed By: #### L 100.0100, L500.4050, L501.9520, L500.4100, L506.1000 ####[facility] [address] [place], [address] Hemoglobin (Bld) [Mass/Vol] 13.9 g/dL Normal 12.0-15.0 [facility] Comment on above: Performed By: #### L 100.0100, L500.4050, L501.9520, L500.4100, L506.1000 ####[facility] [address] [place], [address] IG% 0.900 Normal 0.0-0.9 [facility] Comment on above: Result Comment: IG% - Immature Granulocytes (promyelocytes, myelocytes andmetamyelocytes) > 1% indicates that a LEFT SHIFT is Present. Performed By: #### L 100.0100, L500.4050, L501.9520, L500.4100, L506.1000 ####[facility] [address] [place], [address] Lymphocytes/100 WBC (Bld) 28.5 % Normal 19-41 [facility] Comment on above: Performed By: #### L 100.0100, L500.4050, L501.9520, L500.4100, L506.1000 ####[facility] [address] [place], [address] MCH (RBC) [Entitic mass] 29.0 pg Normal 27.0-32.0 [facility] Comment on above: Performed By: #### L 100.0100, L500.4050, L501.9520, L500.4100, L506.1000 ####[facility] [address] [place], [address] MCHC (RBC) [Mass/Vol] 32.1 g/dL Normal 32-36 [facility] Comment on above: Performed By: #### L 100.0100, L500.4050, L501.9520, L500.4100, L506.1000 ####[facility] [address] [place], [address] MCV (RBC) [Entitic vol] 90.4 fL Normal 81-99 [facility] Comment on above: Performed By: #### L 100.0100, L500.4050, L501.9520, L500.4100, L506.1000 ####[facility] [address] [place], [address] Monocytes/100 WBC (Bld) 9.4 % Normal 0-10 [facility] Comment on above: Performed By: #### L 100.0100, L500.4050, L501.9520, L500.4100, L506.1000 ####[facility] [address] [place], [address] Neutrophils/100 WBC (Bld) 58.9 % Normal 47-70 [facility] Comment on above: Performed By: #### L 100.0100, L500.4050, L501.9520, L500.4100, L506.1000 ####[facility] [address] [place], [address] Nucleated RBC (Bld) [#/Vol] 0 10*3/uL Normal 0-5 [facility] Comment on above: Performed By: #### L 100.0100, L500.4050, L501.9520, L500.4100, L506.1000 ####[facility] [address] [place], [address] Platelet mean volume (Bld) [Entitic vol] 10.1 fL Normal 6.2-12.0 [facility] Comment on above: Performed By: #### L 100.0100, L500.4050, L501.9520, L500.4100, L506.1000 ####[facility] [address] [place], [address] Platelets (Bld) [#/Vol] 320 10*3/uL Normal 150-450 [facility] Comment on above: Performed By: #### L 100.0100, L500.4050, L501.9520, L500.4100, L506.1000 ####[facility] [address] [place], [address] RBC (Bld) [#/Vol] 4.79 10*6/uL Normal 4.2-5.4 [facility] Comment on above: Performed By: #### L 100.0100, L500.4050, L501.9520, L500.4100, L506.1000 ####[facility] [address] [place], [address] RDW SD 44.5 fl High 35.1-43.9 [facility] Comment on above: Performed By: #### L 100.0100, L500.4050, L501.9520, L500.4100, L506.1000 ####[facility] [address] [place], [address] WBC (Bld) [#/Vol] 8.2 10*3/uL Normal 4.4-11.0 [facility] Comment on above: Performed By: #### L 100.0100, L500.4050, L501.9520, L500.4100, L506.1000 ####[facility] [address] [place], [address] Calprotectin, Stoolon [address] 11 ug/g Normal 0-120 [facility] Comment on above: Result Comment: Conc entration Interpretation Follow-Up< 5 - 50 ug/g Normal None>50 -120 ug/g Borderline Re-evaluate in 4-6 weeks >120 ug/g Abnormal Repeat as clinically indicatedPerformed at: [facility] [address] [place], [place] [id number] Director: Jose Gaines MD, Phone: [phone] Performed By: #### L 7000.0700, M100.0605 ####[facility] [address] [place], [address] Carbon dioxide measurementOr dered By: Ed Bowman on 06-13-2024 CO2 [Moles/Vol] 27.0 mmol/L 21.0-32.0 [facility] Chloride measurementOrdered By: Ed Bowman on 06-13-2024 Chloride [Moles/Vol] 111 mmol/L High 98-107 [facility] Comprehensive Metabolic Prof ilon 06-13-2024 Albumin [Mass/Vol] 3.4 g/dL Normal 3.2-5.0 [facility] Comment on above: Performed By: #### L 100.0100, L500.4050, L501.9520, L500.4100, L506.1000 ####[facility] [address] [place], [address] Albumin/Globulin [Mass ratio] 1.0 {ratio} Normal 0.9-2.4 [facility] Comment on above: Performed By: #### L 100.0100, L500.4050, L501.9520, L500.4100, L506.1000 ####[facility] [address] [place], [address] ALK P 85 U/L Normal 45-117 [facility] Comment on above: Performed By: #### L 100.0100, L500.4050, L501.9520, L500.4100, L506.1000 ####[facility] [address] [place], [address] ALT [Catalytic activity/Vol] 18 U/L Normal 13-56 [facility] Comment on above: Performed By: #### L 100.0100, L500.4050, L501.9520, L500.4100, L506.1000 ####[facility] [address] [place], [address] AST [Catalytic activity/Vol] 20 U/L Normal 15-37 [facility] Comment on above: Performed By: #### L 100.0100, L500.4050, L501.9520, L500.4100, L506.1000 ####[facility] [address] [place], [address] Bilirubin [Mass/Vol] 0.50 mg/dL Normal 0.20-1.00 [facility] Comment on above: Result Comment: For patients on eltrombopag therapy, use of Dimension Hallam TBIL is not recommended. Performed By: #### L 100.0100, L500.4050, L501.9520, L500.4100, L506.1000 ####[facility] [address] [place], [address] BUN/CRE 16.7 RATIO Normal 10-20 [facility] Comment on above: Performed By: #### L 100.0100, L500.4050, L501.9520, L500.4100, L506.1000 ####[facility] [address] [place], [address] CA,Total 9.4 mg/dL Normal 8.5-10.1 [facility] Comment on above: Performed By: #### L 100.0100, L500.4050, L501.9520, L500.4100, L506.1000 ####[facility] [address] [place], [address] Chloride [Moles/Vol] 111 mmol/L High 98-107 [facility] Comment on above: Performed By: #### L 100.0100, L500.4050, L501.9520, L500.4100, L506.1000 ####[facility] [address] [place], [address] CO2 [Moles/Vol] 27.0 mmol/L Normal 21.0-32.0 [facility] Comment on above: Performed By: #### L 100.0100, L500.4050, L501.9520, L500.4100, L506.1000 ####[facility] [address] [place], [address] Creatinine [Mass/Vol] 0.78 mg/dL Normal 0.55-1.02 [facility] Comment on above: Result Comment: The validity of the calculated GFR GFRAA in patients over70 years has not been determined. Clinical correlation isessential. Performed By: #### L 100.0100, L500.4050, L501.9520, L500.4100, L506.1000 ####[facility] [address] [place], [address] EST GFR - AA 92 mL/min Normal >60 [facility] Comment on above: Result Comment: Afri can [place] GFR Calc Performed By: #### L 100.0100, L500.4050, L501.9520, L500.4100, L506.1000 ####[facility] [address] [place], [address] GAP 5 Normal 5-15 [facility] Comment on above: Performed By: #### L 100.0100, L500.4050, L501.9520, L500.4100, L506.1000 ####[facility] [address] [place], [address] GFR/1.73 sq M.predicted among non-blacks MDRD (S/P/Bld) [Vol rate/Area] 76 mL/min/{1.73_m2} Normal >60 [facility] Comment on above: Result Comment: Non- GFR Calc Performed By: #### L 100.0100, L500.4050, L501.9520, L500.4100, L506.1000 ####[facility] [address] [place], [address] Globulin (S) [Mass/Vol] 3.4 g/dL Normal 2.2-4.2 [facility] Comment on above: Performed By: #### L 100.0100, L500.4050, L501.9520, L500.4100, L506.1000 ####[facility] [address] [place], [address] Glucose [Mass/Vol] 109 mg/dL High 74-106 [facility] Comment on above: Result Comment: Fast ing Glucose result from 100 to 125 mg/dLsuggests IMPAIRED HOMEOSTASIS per A.D.A. criteria. Performed By: #### L 100.0100, L500.4050, L501.9520, L500.4100, L506.1000 ####[facility] [address] [place], [address] Potassium [Moles/Vol] 3.5 mmol/L Normal 3.5-5.1 [facility] Comment on above: Performed By: #### L 100.0100, L500.4050, L501.9520, L500.4100, L506.1000 ####[facility] [address] [place], [address] Sodium [Moles/Vol] 142 mmol/L Normal 136-145 [facility] Comment on above: Performed By: #### L 100.0100, L500.4050, L501.9520, L500.4100, L506.1000 ####[facility] [address] [place], [address] T PROT 6.8 g/dL Normal 6.4-8.2 [facility] Comment on above: Performed By: #### L 100.0100, L500.4050, L501.9520, L500.4100, L506.1000 ####[facility] [address] [place], [address] Urea nitrogen [Mass/Vol] 13 mg/dL Normal 7-18 [facility] Comment on above: Performed By: #### L 100.0100, L500.4050, L501.9520, L500.4100, L506.1000 ####[facility] [address] [place], [address] Eosinophil percentageOrdered By: Ed Bowman on 06-13-2024 Eosinophils/100 WBC (Bld) 1.6 % 0-5 [facility] Erythrocyte distribution wid th ratioOrdered By: Ed Bowman on 06-13-2024 Erythrocyte distribution width (RBC) [Ratio] 13.5 % 11.6-14.6 [facility] Erythrocyte distribution wid th standard deviationOrdered By: Ed Bowman on 06-13-2024 Erythrocyte distribution width (RBC) [Entitic vol] 44.5 fL High 35.1-43.9 [facility] Estimated glomerular filtrat ion rate (GFR) AmericanOrdered By: Ed Bowman on 06-13-2024 Estimated GFR (MDRD) Amer 92 mL/min >60 [facility] Comment on above: GFR Calc Glomerular filtration rate ( GFR) estimationOrdered By: Ed Bowman on 06-13-2024 Estimated GFR (MDRD) Non-Af Amer 76 mL/min >60 [facility] Comment on above: Non- GFR Calc Glucose measurementOrdered B y: Ed Bowman on 06-13-2024 Glucose [Mass/Vol] 109 mg/dL High 74-106 [facility] Comment on above: Fasting Glucose resu lt from 100 to 125 mg/dL suggests IMPAIRED HOMEOSTASIS per A.D.A. criteria. Hematocrit Auto (Bld) [Volum e fraction]Ordered By: Ed Bowman on 06-13-2024 Hematocrit (Bld) [Volume fraction] 43.3 % 37-47 [facility] Hemoglobin measurementOrdere d By: Ed Bowman on 06-13-2024 Hemoglobin (Bld) [Mass/Vol] 13.9 g/dL 12.0-15.0 [facility] High density lipoprotein (HD L) measurementOrdered By: Ed Bowman on 06-13-2024 Cholesterol in HDL [Mass/Vol] 38 mg/dL Low >40 [facility] Comment on above: The drugs N-Acetylcy steine and Metamizole may falsely depress this assay. Reference Range HDL <40 mg/dL Low HDL Cholesterol HDL >or= 60 mg/dL High HDL Cholesterol Immature granulocytes/100 WB C Auto (Bld)Ordered By: Ed Bowman on 06-13-2024 Immature granulocytes/100 WBC (Bld) 0.900 % 0.0-0.9 [facility] Comment on above: IG% - Immature Granu locytes (promyelocytes, myelocytes and metamyelocytes) > 1% indicates that a LEFT SHIFT is Present. Knee 3 Viewson 06-13-2024 Knee 3 Views Normal [facility] Laboratory - Chemistry and C hemistry - challengeOrdered By: Ed Bowman on 06-13-2024 AST [Catalytic activity/Vol] 20 U/L 15-37 [facility] Lipid Profileon 06-13-2024 Cholesterol [Mass/Vol] 215 mg/dL High 200 [facility] Comment on above: Result Comment: <200 mg/dL Desirable 200-240 mg/dL Borderline >240 mg/dL High Risk Performed By: #### L 100.0100, L500.4050, L501.9520, L500.4100, L506.1000 ####[facility] [address] [place], [address] Cholesterol in HDL [Mass/Vol] 38 mg/dL Low [facility] Comment on above: Result Comment: The drugs N-Acetylcysteine and Metamizole may falselydepress this assay. Reference Range HDL <40 mg/dL Low HDL Cholesterol HDL >or= 60 mg/dL High HDL Cholesterol Performed By: #### L 100.0100, L500.4050, L501.9520, L500.4100, L506.1000 ####[facility] [address] [place], [address] Cholesterol in LDL [Mass/Vol] 141 mg/dL High 0-130 [facility] Comment on above: Performed By: #### L 100.0100, L500.4050, L501.9520, L500.4100, L506.1000 ####[facility] [address] [place], [address] Cholesterol in VLDL [Mass/Vol] 36 mg/dL Normal 5-40 [facility] Comment on above: Performed By: #### L 100.0100, L500.4050, L501.9520, L500.4100, L506.1000 ####[facility] [address] [place], [address] Triglyceride [Mass/Vol] 179 mg/dL Normal [facility] Comment on above: Result Comment: The drugs N-Acetylcysteine and Metamizole may falselydepress this assay.Serum Triglycerides Reference Interval Normal <150 mg/dL Borderline high 150 - 199 mg/dL High 200 - 499 mg/dL Very High > or = 500 mg/dL Performed By: #### L 100.0100, L500.4050, L501.9520, L500.4100, L506.1000 ####[facility] [address] [place], [address] Low density lipoprotein (LDL ) cholesterol measurementOrdered By: Ed Bowman on 06-13-2024 Cholesterol in LDL [Mass/Vol] 141 mg/dL High 0-130 [facility] Lymphocytes Auto (Unsp spec) [#/Vol]Ordered By: Ed Bowman on 06-13-2024 Lymphocytes (Bld) [#/Vol] 2.32 10*3/uL 0.83-4.51 [facility] Lymphocytes/100 WBC Auto (Un sp spec)Ordered By: Ed Bowman on 06-13-2024 Lymphocytes/100 WBC (Bld) 28.5 % 19-41 [facility] MCV (mean corpuscular volume ) determinationOrdered By: Ed [place] on 06-13-2024 MCV (RBC) [Entitic vol] 90.4 fL 81-99 [facility] Mean corpuscular hemoglobin (MCH) determinationOrdered By: Ed [place] on 06-13-2024 MCH (RBC) [Entitic mass] 29.0 pg 27.0-32.0 [facility] Mean corpuscular hemoglobin concentration (MCHC) determinationOrdered By: Ed [place] on 06-13-2024 MCHC (RBC) [Mass/Vol] 32.1 g/dL 32-36 [facility] Mean platelet volume determi nationOrdered By: Ed [place] on 06-13-2024 Platelet mean volume (Bld) [Entitic vol] 10.1 fL 6.2-12.0 [facility] Monocyte percentageOrdered B y: Ed [place] on 06-13-2024 Monocytes/100 WBC (Bld) 9.4 % 0-10 [facility] Neutrophil percentageOrdered By: Ed [place] on 06-13-2024 Neutrophils/100 WBC (Bld) 58.9 % 47-70 [facility] Nucleated red blood cell per centageOrdered By: Ed [place] on 06-13-2024 Nucleated RBC/100 WBC (Bld) [Ratio] 0 % 0-5 [facility] Ova and Parasites 8623on OP Normal [facility] Comment on above: Performed By: #### M 600.5000 ####[facility] [address] [place], [address] Platelet countOrdered By: Mihir Bowman on 06-13-2024 Platelets (Bld) [#/Vol] 320 10*3/uL 150-450 [facility] Potassium measurementOrdered By: Ed Bowman on 06-13-2024 Potassium [Moles/Vol] 3.5 mmol/L 3.5-5.1 [facility] RBC Auto (Bld) [#/Vol]Ordere d By: Ed Bowman on 06-13-2024 RBC (Bld) [#/Vol] 4.79 10*6/uL 4.2-5.4 [facility] Serum anion gap measurementO rdered By: Ed Bowman on 06-13-2024 Anion gap [Moles/Vol] 5 mmol/L 5-15 [facility] Serum globulin measurementOr dered By: Ed Bowman on 06-13-2024 Globulin (S) [Mass/Vol] 3.4 g/dL 2.2-4.2 [facility] Serum or plasma alanine cooper otransferase (ALT) measurementOrdered By: Ed Bowman on 06-13-2024 ALT [Catalytic activity/Vol] 18 U/L 13-56 [facility] Serum or plasma albumin raine urement (mass/volume)Ordered By: Ed Bowman on 06-13-2024 Albumin [Mass/Vol] 3.4 g/dL 3.2-5.0 [facility] Serum or plasma alkaline haven sphatase measurementOrdered By: Ed Bowman on 06-13-2024 ALP [Catalytic activity/Vol] 85 U/L 45-117 [facility] Serum or plasma calcium raine urement (mass/volume)Ordered By: dE Bowman 06-13-2024 Calcium [Mass/Vol] 9.4 mg/dL 8.5-10.1 [facility] Serum or plasma cholesterol measurement (mass/volume)Ordered By: Ed Bowman 06-13-2024 Cholesterol [Mass/Vol] 215 mg/dL High <200 [facility] Comment on above: <200 mg/dL Desirable 200-240 mg/dL Borderline >240 mg/dL High Risk Serum or plasma creatinine m easurement (mass/volume)Ordered By: Ed Bowman on 06-13-2024 Creatinine [Mass/Vol] 0.78 mg/dL 0.55-1.02 [facility] Comment on above: The validity of the calculated GFR & GFRAA in patients over 70 years has not been determined. Clinical correlation is essential. Serum or plasma urea nitroge n measurement (mass/volume)Ordered By: Ed Bowman on 06-13-2024 Urea nitrogen [Mass/Vol] 13 mg/dL 7-18 [facility] Sodium levelOrdered By: Ed Bowman 06-13-2024 Sodium [Moles/Vol] 142 mmol/L 136-145 [facility] TSH QnOrdered By: Ed Bowman o n 06-13-2024 Thyroid Stimulating Hormone (TSH) 0.810 uIU/mL 0.358-3.740 [facility] Thyroid Stim Hormone (TSH)on 06-13-2024 TSH 0.810 uIU/mL Normal 0.358-3.740 [facility] Comment on above: Performed By: #### L 100.0100, L500.4050, L501.9520, L500.4100, L506.1000 ####[facility] [address] [place], [address] Total proteinOrdered By: Ed Bowman on 06-13-2024 Protein [Mass/Vol] 6.8 g/dL 6.4-8.2 [facility] Triglycerides measurementOrd ered By: Ed [...] 06-13-2024 VLDL Cholesterol 36 mg/dL 5-40 [facility] Vitamin D,25 Hydroxyon 06-13 Vitamin D 25-OH 45.7 ng/mL Normal [facility] Comment on above: Result Comment: Luda min D 25(OH) Status Range Deficiency <20 ng/mL (50nmol/L) Insufficiency 20 - 30 ng/mL (50 - 75 nmol/L) Sufficiency 30 - 100 ng/mL (75 - 250 nmol/L) Toxicity >100 ng/mL (>250 nmol/L) Performed By: #### L 100.0100, L500.4050, L501.9520, L500.4100, L506.1000 ####[facility] [address] [place], [address] White blood cell (WBC) count Ordered By: Ed Bowman on 06-13-2024 WBC (Bld) [#/Vol] 8.2 10*3/uL 4.4-11.0 [facility] Calprotectin stoolOrdered By : Nelson Hobson on 06-08-2024 Stool Calprotectin 11 ug/g 0-120 [facility] Comment on above: Concentration Interp retation Follow-Up< 5 - 50 ug/g Normal None>50 -120 ug/g Borderline Re-evaluate in 4-6 weeks >120 ug/g Abnormal Repeat as clinically indicatedPerformed at: - [facility] [id number] Director: Jose Gaines MD, Phone: [phone] Lactoferrin IA Ql (Stl)Order ed By: Nelson Hobson on 06-08-2024 Stool Lactoferrin [facility] Stool Lactoferrin [facility] Ova and parasitesOrdered By: Nelson Hobson on 06-08-2024 Ova and Parasites [facility] Ova and Parasites [facility] Stool Lactoferrin/WBCon 05-13 WBCST Normal Reference Ran ge = Negative Fecal WBC Lactoferrin Negative: No Fecal WBC Lactoferrin present Normal [facility] Comment on above: Performed By: #### L 7000.0700, M100.0605 ####[facility] [address] [place], [address] Absolute neutrophil countOrd ered By: Nelson Hobson on 06-05-2024 Neutrophils (Bld) [#/Vol] 8.3 10*3/uL High 2.0-7.7 [facility] Albumin to globulin ratioOrd ered By: Nelson Hobson on 06-05-2024 Albumin/Globulin [Mass ratio] 0.9 {ratio} 0.9-2.4 [facility] Basophil percentageOrdered B y: Nelson Hobson on 06-05-2024 Basophils/100 WBC (Bld) 0.6 % 0-1 [facility] Bilirubin, totalOrdered By: Nelson Hobson on 06-05-2024 Bilirubin [Mass/Vol] 0.80 mg/dL 0.20-1.00 [facility] Comment on above: For patients on eltr ombopag therapy, use of Dimension Hallam TBIL is not recommended. Blood urea nitrogen (BUN)/cr eatinine ratioOrdered By: Nelson Hobson on 06-05-2024 Urea nitrogen/Creatinine [Mass ratio] 22.2 mg/mg High - [facility] CBC W/Diff, Automatedon 05-13 Absolute Lymph 2.73 X10 3/uL Normal 0.83-4.51 [facility] Comment on above: Performed By: #### L 300.4310, L504.2610, L100.0100, L300.3900, L300.8000, L500.4050 ####[facility] [address] [place], [address] Absolute Neut 8.3 X10 3/uL High 2.0-7.7 [facility] Comment on above: Performed By: #### L 300.4310, L504.2610, L100.0100, L300.3900, L300.8000, L500.4050 ####[facility] [address] [place], [address] Basophils/100 WBC (Bld) 0.6 % Normal 0-1 [facility] Comment on above: Performed By: #### L 300.4310, L504.2610, L100.0100, L300.3900, L300.8000, L500.4050 ####[facility] [address] [place], [address] Eosinophils/100 WBC (Bld) 0.9 % Normal 0-5 [facility] Comment on above: Performed By: #### L 300.4310, L504.2610, L100.0100, L300.3900, L300.8000, L500.4050 ####[facility] [address] [place], [address] Erythrocyte distribution width (RBC) [Ratio] 13.2 % Normal 11.6-14.6 [facility] Comment on above: Performed By: #### L 300.4310, L504.2610, L100.0100, L300.3900, L300.8000, L500.4050 ####[facility] [address] [place], [address] Hematocrit (Bld) [Volume fraction] 43.0 % Normal 37-47 [facility] Comment on above: Performed By: #### L 300.4310, L504.2610, L100.0100, L300.3900, L300.8000, L500.4050 ####[facility] [address] [place], [address] Hemoglobin (Bld) [Mass/Vol] 14.6 g/dL Normal 12.0-15.0 [facility] Comment on above: Performed By: #### L 300.4310, L504.2610, L100.0100, L300.3900, L300.8000, L500.4050 ####[facility] [address] [place], [address] IG% 0.600 Normal 0.0-0.9 [facility] Comment on above: Result Comment: IG% - Immature Granulocytes (promyelocytes, myelocytes andmetamyelocytes) > 1% indicates that a LEFT SHIFT is Present. Performed By: #### L 300.4310, L504.2610, L100.0100, L300.3900, L300.8000, L500.4050 ####[facility] [address] [place], [address] Lymphocytes/100 WBC (Bld) 21.8 % Normal 19-41 [facility] Comment on above: Performed By: #### L 300.4310, L504.2610, L100.0100, L300.3900, L300.8000, L500.4050 ####[facility] [address] [place], [address] MCH (RBC) [Entitic mass] 29.6 pg Normal 27.0-32.0 [facility] Comment on above: Performed By: #### L 300.4310, L504.2610, L100.0100, L300.3900, L300.8000, L500.4050 ####[facility] [address] [place], [address] MCHC (RBC) [Mass/Vol] 34.0 g/dL Normal 32-36 [facility] Comment on above: Performed By: #### L 300.4310, L504.2610, L100.0100, L300.3900, L300.8000, L500.4050 ####[facility] [address] [place], [address] MCV (RBC) [Entitic vol] 87.2 fL Normal 81-99 [facility] Comment on above: Performed By: #### L 300.4310, L504.2610, L100.0100, L300.3900, L300.8000, L500.4050 ####[facility] [address] [place], [address] Monocytes/100 WBC (Bld) 9.4 % Normal 0-10 [facility] Comment on above: Performed By: #### L 300.4310, L504.2610, L100.0100, L300.3900, L300.8000, L500.4050 ####[facility] [address] [place], [address] Neutrophils/100 WBC (Bld) 66.7 % Normal 47-70 [facility] Comment on above: Performed By: #### L 300.4310, L504.2610, L100.0100, L300.3900, L300.8000, L500.4050 ####[facility] [address] [place], [address] Nucleated RBC (Bld) [#/Vol] 0 10*3/uL Normal 0-5 [facility] Comment on above: Performed By: #### L 300.4310, L504.2610, L100.0100, L300.3900, L300.8000, L500.4050 ####[facility] [address] [place], [address] Platelet mean volume (Bld) [Entitic vol] 9.3 fL Normal 6.2-12.0 [facility] Comment on above: Performed By: #### L 300.4310, L504.2610, L100.0100, L300.3900, L300.8000, L500.4050 ####[facility] [address] [place], [address] Platelets (Bld) [#/Vol] 303 10*3/uL Normal 150-450 [facility] Comment on above: Performed By: #### L 300.4310, L504.2610, L100.0100, L300.3900, L300.8000, L500.4050 ####[facility] [address] [place], [address] RBC (Bld) [#/Vol] 4.93 10*6/uL Normal 4.2-5.4 [facility] Comment on above: Performed By: #### L 300.4310, L504.2610, L100.0100, L300.3900, L300.8000, L500.4050 ####[facility] [address] [place], [address] RDW SD 42.1 fl Normal 35.1-43.9 [facility] Comment on above: Performed By: #### L 300.4310, L504.2610, L100.0100, L300.3900, L300.8000, L500.4050 ####[facility] [address] [place], [address] WBC (Bld) [#/Vol] 12.5 10*3/uL High 4.4-11.0 [facility] Comment on above: Performed By: #### L 300.4310, L504.2610, L100.0100, L300.3900, L300.8000, L500.4050 ####[facility] [address] [place], [address] Carbon dioxide measurementOr dered By: Nelson Hobson on 06-05-2024 CO2 [Moles/Vol] 24.0 mmol/L 21.0-32.0 [facility] Chloride measurementOrdered By: Nelson Hobson on 06-05-2024 Chloride [Moles/Vol] 108 mmol/L High 98-107 [facility] Comprehensive Metabolic Prof ilon 06-05-2024 Albumin [Mass/Vol] 3.4 g/dL Normal 3.2-5.0 [facility] Comment on above: Order Comment: 1 Performed By: #### L 300.4310, L504.2610, L100.0100, L300.3900, L300.8000, L500.4050 ####[facility] [address] [place], [address] Albumin/Globulin [Mass ratio] 0.9 {ratio} Normal 0.9-2.4 [facility] Comment on above: Order Comment: 1 Performed By: #### L 300.4310, L504.2610, L100.0100, L300.3900, L300.8000, L500.4050 ####[facility] [address] [place], [address] ALK P 80 U/L Normal 45-117 [facility] Comment on above: Order Comment: 1 Performed By: #### L 300.4310, L504.2610, L100.0100, L300.3900, L300.8000, L500.4050 ####[facility] [address] [place], [address] ALT [Catalytic activity/Vol] 19 U/L Normal 13-56 [facility] Comment on above: Order Comment: 1 Performed By: #### L 300.4310, L504.2610, L100.0100, L300.3900, L300.8000, L500.4050 ####[facility] [address] [place], [address] AST [Catalytic activity/Vol] 20 U/L Normal 15-37 [facility] Comment on above: Order Comment: 1 Performed By: #### L 300.4310, L504.2610, L100.0100, L300.3900, L300.8000, L500.4050 ####[facility] [address] [place], [address] Bilirubin [Mass/Vol] 0.80 mg/dL Normal 0.20-1.00 [facility] Comment on above: Order Comment: 1 Result Comment: For patients on eltrombopag therapy, use of Dimension Hallam TBIL is not recommended. Performed By: #### L 300.4310, L504.2610, L100.0100, L300.3900, L300.8000, L500.4050 ####[facility] [address] [place], [address] BUN/CRE 22.2 RATIO High 10-20 [facility] Comment on above: Order Comment: 1 Performed By: #### L 300.4310, L504.2610, L100.0100, L300.3900, L300.8000, L500.4050 ####[facility] [address] [place], [address] CA,Total 9.4 mg/dL Normal 8.5-10.1 [facility] Comment on above: Order Comment: 1 Performed By: #### L 300.4310, L504.2610, L100.0100, L300.3900, L300.8000, L500.4050 ####[facility] [address] [place], [address] Chloride [Moles/Vol] 108 mmol/L High 98-107 [facility] Comment on above: Order Comment: 1 Performed By: #### L 300.4310, L504.2610, L100.0100, L300.3900, L300.8000, L500.4050 ####[facility] [address] [place], [address] CO2 [Moles/Vol] 24.0 mmol/L Normal 21.0-32.0 [facility] Comment on above: Order Comment: 1 Performed By: #### L 300.4310, L504.2610, L100.0100, L300.3900, L300.8000, L500.4050 ####[facility] [address] [place], [address] Creatinine [Mass/Vol] 0.86 mg/dL Normal 0.55-1.02 [facility] Comment on above: Order Comment: 1 Result Comment: The validity of the calculated GFR GFRAA in patients over70 years has not been determined. Clinical correlation isessential. Performed By: #### L 300.4310, L504.2610, L100.0100, L300.3900, L300.8000, L500.4050 ####[facility] [address] [place], [address] EST GFR - AA 83 mL/min Normal >60 [facility] Comment on above: Order Comment: 1 Result Comment: Afri can Belgian GFR Calc Performed By: #### L 300.4310, L504.2610, L100.0100, L300.3900, L300.8000, L500.4050 ####[facility] [address] [place], [address] GAP 9 Normal 5-15 [facility] Comment on above: Order Comment: 1 Performed By: #### L 300.4310, L504.2610, L100.0100, L300.3900, L300.8000, L500.4050 ####[facility] [address] [place], [address] GFR/1.73 sq M.predicted among non-blacks MDRD (S/P/Bld) [Vol rate/Area] 69 mL/min/{1.73_m2} Normal >60 [facility] Comment on above: Order Comment: 1 Result Comment: Non- GFR Calc Performed By: #### L 300.4310, L504.2610, L100.0100, L300.3900, L300.8000, L500.4050 ####[facility] [address] [place], [address] Globulin (S) [Mass/Vol] 3.8 g/dL Normal 2.2-4.2 [facility] Comment on above: Order Comment: 1 Performed By: #### L 300.4310, L504.2610, L100.0100, L300.3900, L300.8000, L500.4050 ####[facility] [address] [place], [address] Glucose [Mass/Vol] 115 mg/dL High 74-106 [facility] Comment on above: Order Comment: 1 Result Comment: Fast ing Glucose result from 100 to 125 mg/dLsuggests IMPAIRED HOMEOSTASIS per A.D.A. criteria. Performed By: #### L 300.4310, L504.2610, L100.0100, L300.3900, L300.8000, L500.4050 ####[facility] [address] [place], [address] Potassium [Moles/Vol] 2.8 mmol/L Low 3.5-5.1 [facility] Comment on above: Order Comment: 1 Performed By: #### L 300.4310, L504.2610, L100.0100, L300.3900, L300.8000, L500.4050 ####[facility] [address] [place], [address] Sodium [Moles/Vol] 141 mmol/L Normal 136-145 [facility] Comment on above: Order Comment: 1 Performed By: #### L 300.4310, L504.2610, L100.0100, L300.3900, L300.8000, L500.4050 ####[facility] [address] [place], [address] T PROT 7.2 g/dL Normal 6.4-8.2 [facility] Comment on above: Order Comment: 1 Performed By: #### L 300.4310, L504.2610, L100.0100, L300.3900, L300.8000, L500.4050 ####[facility] [address] [place], [address] Urea nitrogen [Mass/Vol] 19 mg/dL High 7-18 [facility] Comment on above: Order Comment: 1 Performed By: #### L 300.4310, L504.2610, L100.0100, L300.3900, L300.8000, L500.4050 ####[facility] [address] [place], [address] D-Dimer Quantitative (DVT/PE )on 06-05-2024 D-DIMER QUANT 0.35 FEU/ug/m Normal 0.27-0.49 [facility] Comment on above: Result Comment: NORM AL D-Dimer level (<0.50) indicates no DVT or PE. Performed By: #### L 300.4310, L504.2610, L100.0100, L300.3900, L300.8000, L500.4050 ####[facility] [address] [place], [address] D-dimer measurement for deep venous thrombosisOrdered By: Nelson Hobson on 06-05-2024 D-Dimer Quantitative (PE/DVT) 0.35 FEU/ug/m 0.27-0.49 [facility] Comment on above: NORMAL D-Dimer level (<0.50) indicates no DVT or PE. Eosinophil percentageOrdered By: Nelson Hobson on 06-05-2024 Eosinophils/100 WBC (Bld) 0.9 % 0-5 [facility] Erythrocyte distribution wid th ratioOrdered By: Nelson [facility] on 06-05-2024 Erythrocyte distribution width (RBC) [Ratio] 13.2 % 11.6-14.6 [facility] Erythrocyte distribution wid th standard deviationOrdered By: Nelson [facility] on 06-05-2024 Erythrocyte distribution width (RBC) [Entitic vol] 42.1 fL 35.1-43.9 [facility] Estimated glomerular filtrat ion rate (GFR) AmericanOrdered By: Nelson Hobson on 06-05-2024 Estimated GFR (MDRD) Amer 83 mL/min >60 [facility] Comment on above: GFR Calc Glomerular filtration rate ( GFR) estimationOrdered By: Nelson Hobson on 06-05-2024 Estimated GFR (MDRD) Non-Af Amer 69 mL/min >60 [facility] Comment on above: Non- GFR Calc Glucose measurementOrdered B y: Nelson Hobson on 06-05-2024 Glucose [Mass/Vol] 115 mg/dL High 74-106 [facility] Comment on above: Fasting Glucose resu lt from 100 to 125 mg/dL suggests IMPAIRED HOMEOSTASIS per A.D.A. criteria. Hematocrit Auto (Bld) [Volum e fraction]Ordered By: Nelson Hobson on 06-05-2024 Hematocrit (Bld) [Volume fraction] 43.0 % 37-47 [facility] Hemoglobin measurementOrdere d By: Nelson Hobson on 06-05-2024 Hemoglobin (Bld) [Mass/Vol] 14.6 g/dL 12.0-15.0 [facility] Immature granulocytes/100 WB C Auto (Bld)Ordered By: Nelson Funk on 06-05-2024 Immature granulocytes/100 WBC (Bld) 0.600 % 0.0-0.9 [facility] Comment on above: IG% - Immature Granu locytes (promyelocytes, myelocytes and metamyelocytes) > 1% indicates that a LEFT SHIFT is Present. International normalized rat io (INR) calculationOrdered By: Nelson Hobson on 06-05-2024 INR Coag (Bld) [Relative time] 1.5 {INR} [facility] LDHon 06-05-2024 LDH 209 U/L Normal 84-246 [facility] Comment on above: Order Comment: 1 Performed By: #### L 300.4310, L504.2610, L100.0100, L300.3900, L300.8000, L500.4050 ####[facility] [address] [place], [address] Laboratory - Chemistry and C hemistry - challengeOrdered By: Nelson Hobson on 06-05-2024 AST [Catalytic activity/Vol] 20 U/L 15-37 [facility] Lactate dehydrogenase (LDH) measurementOrdered By: Nelson Hobson on 06-05-2024 LDH [Catalytic activity/Vol] 209 U/L 84-246 [facility] Lymphocytes Auto (Unsp spec) [#/Vol]Ordered By: Nelson Hobson on 06-05-2024 Lymphocytes (Bld) [#/Vol] 2.73 10*3/uL 0.83-4.51 [facility] Lymphocytes/100 WBC Auto (Un sp spec)Ordered By: Nelson Hobson on 06-05-2024 Lymphocytes/100 WBC (Bld) 21.8 % 19-41 [facility] MCV (mean corpuscular volume ) determinationOrdered By: Nelson Hobson on 06-05-2024 MCV (RBC) [Entitic vol] 87.2 fL 81-99 [facility] Mean corpuscular hemoglobin (MCH) determinationOrdered By: Nelson Hobson on 06-05-2024 MCH (RBC) [Entitic mass] 29.6 pg 27.0-32.0 [facility] Mean corpuscular hemoglobin concentration (MCHC) determinationOrdered By: Nelson Hobson on 06-05-2024 MCHC (RBC) [Mass/Vol] 34.0 g/dL 32-36 [facility] Mean platelet volume determi nationOrdered By: Nelson Hobson on 06-05-2024 Platelet mean volume (Bld) [Entitic vol] 9.3 fL 6.2-12.0 [facility] Monocyte percentageOrdered B y: Nelson Hobson on 06-05-2024 Monocytes/100 WBC (Bld) 9.4 % 0-10 [facility] Neutrophil percentageOrdered By: Nelson Hobson on 06-05-2024 Neutrophils/100 WBC (Bld) 66.7 % 47-70 [facility] Nucleated red blood cell per centageOrdered By: Nelson Hobson on 06-05-2024 Nucleated RBC/100 WBC (Bld) [Ratio] 0 % 0-5 [facility] Oncology Visit Reporton 05-13 Oncology Visit Report Normal [facility] Partial Thromboplast Timeon 06-05-2024 aPTT Coag (Bld) [Time] 28.7 s Normal 24.1-36.2 [facility] Comment on above: Performed By: #### L 300.4310, L504.2610, L100.0100, L300.3900, L300.8000, L500.4050 ####[facility] [address] [place], [address] Platelet countOrdered By: Niya Hobson on 06-05-2024 Platelets (Bld) [#/Vol] 303 10*3/uL 150-450 [facility] Potassium measurementOrdered By: Nelson Hobson on 06-05-2024 Potassium [Moles/Vol] 2.8 mmol/L Low 3.5-5.1 [facility] Prothrombin Time w/INRon INR Coag (PPP) [Relative time] 1.5 {INR} Normal [facility] Comment on above: Performed By: #### L 300.4310, L504.2610, L100.0100, L300.3900, L300.8000, L500.4050 ####[facility] [address] [place], [address] PT Coag (PPP) [Time] 17.8 s High 11.7-14.9 [facility] Comment on above: Performed By: #### L 300.4310, L504.2610, L100.0100, L300.3900, L300.8000, L500.4050 ####[facility] [address] [place], [address] Prothrombin timeOrdered By: Nelson Hobson on 06-05-2024 PT Coag (PPP) [Time] 17.8 s High 11.7-14.9 [facility] RBC Auto (Bld) [#/Vol]Ordere d By: Nelson Hobson on 06-05-2024 RBC (Bld) [#/Vol] 4.93 10*6/uL 4.2-5.4 [facility] Serum anion gap measurementO rdered By: Nelson Hobson on 06-05-2024 Anion gap [Moles/Vol] 9 mmol/L 5-15 [facility] Serum globulin measurementOr dered By: Nelson Hobson on 06-05-2024 Globulin (S) [Mass/Vol] 3.8 g/dL 2.2-4.2 [facility] Serum or plasma alanine cooper otransferase (ALT) measurementOrdered By: Nelson Hobson on 06-05-2024 ALT [Catalytic activity/Vol] 19 U/L 13-56 [facility] Serum or plasma albumin raine urement (mass/volume)Ordered By: Nelson Hobson on 06-05-2024 Albumin [Mass/Vol] 3.4 g/dL 3.2-5.0 [facility] Serum or plasma alkaline haven sphatase measurementOrdered By: Nelson Hobson on 06-05-2024 ALP [Catalytic activity/Vol] 80 U/L 45-117 [facility] Serum or plasma calcium raine urement (mass/volume)Ordered By: Nelson Hobson on 06-05-2024 Calcium [Mass/Vol] 9.4 mg/dL 8.5-10.1 [facility] Serum or plasma creatinine m easurement (mass/volume)Ordered By: Nelson Hobson on 06-05-2024 Creatinine [Mass/Vol] 0.86 mg/dL 0.55-1.02 [facility] Comment on above: The validity of the calculated GFR & GFRAA in patients over 70 years has not been determined. Clinical correlation is essential. Serum or plasma urea nitroge n measurement (mass/volume)Ordered By: Nelson Hobson on 06-05-2024 Urea nitrogen [Mass/Vol] 19 mg/dL High 7-18 [facility] Sodium levelOrdered By: Venu Hobson on 06-05-2024 Sodium [Moles/Vol] 141 mmol/L 136-145 [facility] Total proteinOrdered By: Dickson Hobson on 06-05-2024 Protein [Mass/Vol] 7.2 g/dL 6.4-8.2 [facility] White blood cell (WBC) count Ordered By: Nelson Hobson on 06-05-2024 WBC (Bld) [#/Vol] 12.5 10*3/uL High 4.4-11.0 [facility] aPTT Coag (PPP) [Time]Ordere d By: Nelson Hobson on 06-05-2024 aPTT Coag (Bld) [Time] 28.7 s 24.1-36.2 [facility] Brain/Head without Contrasto n 06-04-2024 Brain/Head without Contrast Normal [facility] Emergency Department Summary on 06-04-2024 Emergency Department Summary Normal [facility] Spine Cervical without Contr ason 06-04-2024 Spine Cervical without Contras Normal [facility] Urine Cultureon 05-18-2024 URC Normal [facility] Comment on above: Performed By: #### M 100.2200 ####[facility] [address] [place], [place], [address] Venous Duplex US - Eben Extre mon 05-12-2024 Venous Duplex US - Eben Extrem Normal [facility] CTA Chest W/WO Contraston CTA Chest W/WO Contrast Normal [facility] CBC W/Diff, Automatedon 04-12 Absolute Lymph 2.85 X10 3/uL Normal 0.83-4.51 [facility] Comment on above: Performed By: #### L 504.2610, L500.4050, L100.0100, L300.8000, L300.3900, L300.4310 ####[facility] [address] [place], [place], [address] Absolute Neut 6.9 X10 3/uL Normal 2.0-7.7 [facility] Comment on above: Performed By: #### L 504.2610, L500.4050, L100.0100, L300.8000, L300.3900, L300.4310 ####[facility] [address] [place], [address] Basophils/100 WBC (Bld) 0.5 % Normal 0-1 [facility] Comment on above: Performed By: #### L 504.2610, L500.4050, L100.0100, L300.8000, L300.3900, L300.4310 ####[facility] [address] [place], [address] Eosinophils/100 WBC (Bld) 0.8 % Normal 0-5 [facility] Comment on above: Performed By: #### L 504.2610, L500.4050, L100.0100, L300.8000, L300.3900, L300.4310 ####[facility] [address] [place], [address] Erythrocyte distribution width (RBC) [Ratio] 13.2 % Normal 11.6-14.6 [facility] Comment on above: Performed By: #### L 504.2610, L500.4050, L100.0100, L300.8000, L300.3900, L300.4310 ####[facility] [address] [place], [address] Hematocrit (Bld) [Volume fraction] 43.8 % Normal 37-47 [facility] Comment on above: Performed By: #### L 504.2610, L500.4050, L100.0100, L300.8000, L300.3900, L300.4310 ####[facility] [address] [place], [address] Hemoglobin (Bld) [Mass/Vol] 14.7 g/dL Normal 12.0-15.0 [facility] Comment on above: Performed By: #### L 504.2610, L500.4050, L100.0100, L300.8000, L300.3900, L300.4310 ####[facility] [address] [place], [address] IG% 0.800 Normal 0.0-0.9 [facility] Comment on above: Result Comment: IG% - Immature Granulocytes (promyelocytes, myelocytes andmetamyelocytes) > 1% indicates that a LEFT SHIFT is Present. Performed By: #### L 504.2610, L500.4050, L100.0100, L300.8000, L300.3900, L300.4310 ####[facility] [address] [place], [address] Lymphocytes/100 WBC (Bld) 26.0 % Normal 19-41 [facility] Comment on above: Performed By: #### L 504.2610, L500.4050, L100.0100, L300.8000, L300.3900, L300.4310 ####[facility] [address] [place], [address] MCH (RBC) [Entitic mass] 30.5 pg Normal 27.0-32.0 [facility] Comment on above: Performed By: #### L 504.2610, L500.4050, L100.0100, L300.8000, L300.3900, L300.4310 ####[facility] [address] [place], [address] MCHC (RBC) [Mass/Vol] 33.6 g/dL Normal 32-36 [facility] Comment on above: Performed By: #### L 504.2610, L500.4050, L100.0100, L300.8000, L300.3900, L300.4310 ####[facility] [address] [place], [address] MCV (RBC) [Entitic vol] 90.9 fL Normal 81-99 [facility] Comment on above: Performed By: #### L 504.2610, L500.4050, L100.0100, L300.8000, L300.3900, L300.4310 ####[facility] [address] [place], [address] Monocytes/100 WBC (Bld) 8.9 % Normal 0-10 [facility] Comment on above: Performed By: #### L 504.2610, L500.4050, L100.0100, L300.8000, L300.3900, L300.4310 ####[facility] [address] [place], [address] Neutrophils/100 WBC (Bld) 63.0 % Normal 47-70 [facility] Comment on above: Performed By: #### L 504.2610, L500.4050, L100.0100, L300.8000, L300.3900, L300.4310 ####[facility] [address] [place], [address] Nucleated RBC (Bld) [#/Vol] 0 10*3/uL Normal 0-5 [facility] Comment on above: Performed By: #### L 504.2610, L500.4050, L100.0100, L300.8000, L300.3900, L300.4310 ####[facility] [address] [place], [address] Platelet mean volume (Bld) [Entitic vol] 9.3 fL Normal 6.2-12.0 [facility] Comment on above: Performed By: #### L 504.2610, L500.4050, L100.0100, L300.8000, L300.3900, L300.4310 ####[facility] [address] [place], [address] Platelets (Bld) [#/Vol] 294 10*3/uL Normal 150-450 [facility] Comment on above: Performed By: #### L 504.2610, L500.4050, L100.0100, L300.8000, L300.3900, L300.4310 ####[facility] [address] [place], [address] RBC (Bld) [#/Vol] 4.82 10*6/uL Normal 4.2-5.4 [facility] Comment on above: Performed By: #### L 504.2610, L500.4050, L100.0100, L300.8000, L300.3900, L300.4310 ####[facility] [address] [place], [address]( RDW SD 44.8 fl High 35.1-43.9 [facility] Comment on above: Performed By: #### L 504.2610, L500.4050, L100.0100, L300.8000, L300.3900, L300.4310 ####[facility] [address] [place], [address] WBC (Bld) [#/Vol] 11.0 10*3/uL Normal 4.4-11.0 [facility] Comment on above: Performed By: #### L 504.2610, L500.4050, L100.0100, L300.8000, L300.3900, L300.4310 ####[facility] [address] [place], [address] Comprehensive Metabolic Prof scon 05-08-2024 Albumin [Mass/Vol] 3.4 g/dL Normal 3.2-5.0 [facility] Comment on above: Order Comment: 1 Performed By: #### L 504.2610, L500.4050, L100.0100, L300.8000, L300.3900, L300.4310 ####[facility] [address] [place], [address] Albumin/Globulin [Mass ratio] 1.0 {ratio} Normal 0.9-2.4 [facility] Comment on above: Order Comment: 1 Performed By: #### L 504.2610, L500.4050, L100.0100, L300.8000, L300.3900, L300.4310 ####[facility] [address] [place], [address] ALK P 81 U/L Normal 45-117 [facility] Comment on above: Order Comment: 1 Performed By: #### L 504.2610, L500.4050, L100.0100, L300.8000, L300.3900, L300.4310 ####[facility] [address] [place], [address] ALT [Catalytic activity/Vol] 18 U/L Normal 13-56 [facility] Comment on above: Order Comment: 1 Performed By: #### L 504.2610, L500.4050, L100.0100, L300.8000, L300.3900, L300.4310 ####[facility] [address] [place], [address] AST [Catalytic activity/Vol] 18 U/L Normal 15-37 [facility] Comment on above: Order Comment: 1 Performed By: #### L 504.2610, L500.4050, L100.0100, L300.8000, L300.3900, L300.4310 ####[facility] [address] [place], [address] Bilirubin [Mass/Vol] 0.60 mg/dL Normal 0.20-1.00 [facility] Comment on above: Order Comment: 1 Result Comment: For patients on eltrombopag therapy, use of Dimension Hallam TBIL is not recommended. Performed By: #### L 504.2610, L500.4050, L100.0100, L300.8000, L300.3900, L300.4310 ####[facility] [address] [place], [address] BUN/CRE 16.5 RATIO Normal 10-20 [facility] Comment on above: Order Comment: 1 Performed By: #### L 504.2610, L500.4050, L100.0100, L300.8000, L300.3900, L300.4310 ####[facility] [address] [place], [address] CA,Total 9.2 mg/dL Normal 8.5-10.1 [facility] Comment on above: Order Comment: 1 Performed By: #### L 504.2610, L500.4050, L100.0100, L300.8000, L300.3900, L300.4310 ####[facility] [address] [place], [address] Chloride [Moles/Vol] 110 mmol/L High 98-107 [facility] Comment on above: Order Comment: 1 Performed By: #### L 504.2610, L500.4050, L100.0100, L300.8000, L300.3900, L300.4310 ####[facility] [address] [place], [address] CO2 [Moles/Vol] 25.0 mmol/L Normal 21.0-32.0 [facility] Comment on above: Order Comment: 1 Performed By: #### L 504.2610, L500.4050, L100.0100, L300.8000, L300.3900, L300.4310 ####[facility] [address] [place], [address] Creatinine [Mass/Vol] 0.97 mg/dL Normal 0.55-1.02 [facility] Comment on above: Order Comment: 1 Result Comment: The validity of the calculated GFR GFRAA in patients over70 years has not been determined. Clinical correlation isessential. Performed By: #### L 504.2610, L500.4050, L100.0100, L300.8000, L300.3900, L300.4310 ####[facility] [address] [place], [place], [id number] EST GFR - AA 72 mL/min Normal >60 [facility] Comment on above: Order Comment: 1 Result Comment: Afri can Belgian GFR Calc Performed By: #### L 504.2610, L500.4050, L100.0100, L300.8000, L300.3900, L300.4310 ####[facility] [address] [place], [place], [phone] GAP 5 Normal 5-15 [facility] Comment on above: Order Comment: 1 Performed By: #### L 504.2610, L500.4050, L100.0100, L300.8000, L300.3900, L300.4310 ####[facility] [address] [place], [place], [id number] GFR/1.73 sq M.predicted among non-blacks MDRD (S/P/Bld) [Vol rate/Area] 59 mL/min/{1.73_m2} Low >60 [facility] Comment on above: Order Comment: 1 Result Comment: Non- GFR Calc Performed By: #### L 504.2610, L500.4050, L100.0100, L300.8000, L300.3900, L300.4310 ####[facility] [address] [place], [place], [phone] Globulin (S) [Mass/Vol] 3.4 g/dL Normal 2.2-4.2 [facility] Comment on above: Order Comment: 1 Performed By: #### L 504.2610, L500.4050, L100.0100, L300.8000, L300.3900, L300.4310 ####[facility] [address] [place], [address] Glucose [Mass/Vol] 112 mg/dL High 74-106 [facility] Comment on above: Order Comment: 1 Result Comment: Fast ing Glucose result from 100 to 125 mg/dLsuggests IMPAIRED HOMEOSTASIS per A.D.A. criteria. Performed By: #### L 504.2610, L500.4050, L100.0100, L300.8000, L300.3900, L300.4310 ####[facility] [address] [place], [address] Potassium [Moles/Vol] 3.6 mmol/L Normal 3.5-5.1 [facility] Comment on above: Order Comment: 1 Performed By: #### L 504.2610, L500.4050, L100.0100, L300.8000, L300.3900, L300.4310 ####[facility] [address] [place], [address] Sodium [Moles/Vol] 140 mmol/L Normal 136-145 [facility] Comment on above: Order Comment: 1 Performed By: #### L 504.2610, L500.4050, L100.0100, L300.8000, L300.3900, L300.4310 ####[facility] [address] [place], [address] T PROT 6.8 g/dL Normal 6.4-8.2 [facility] Comment on above: Order Comment: 1 Performed By: #### L 504.2610, L500.4050, L100.0100, L300.8000, L300.3900, L300.4310 ####[facility] [address] [place], [address] Urea nitrogen [Mass/Vol] 16 mg/dL Normal 7-18 [facility] Comment on above: Order Comment: 1 Performed By: #### L 504.2610, L500.4050, L100.0100, L300.8000, L300.3900, L300.4310 ####[facility] [address] [place], [place], [id number] D-Dimer Quantitative (DVT/PE )on 05-08-2024 D-DIMER QUANT 0.31 FEU/ug/m Normal 0.27-0.49 [facility] Comment on above: Result Comment: NORM AL D-Dimer level (<0.50) indicates no DVT or PE. Performed By: #### L 504.2610, L500.4050, L100.0100, L300.8000, L300.3900, L300.4310 ####[facility] [address] [place], [address] LDHon 05-08-2024 LDH 233 U/L Normal 84-246 [facility] Comment on above: Order Comment: 1 Performed By: #### L 504.2610, L500.4050, L100.0100, L300.8000, L300.3900, L300.4310 ####[facility] [address] [place], [place], [phone] Oncology Visit Reporton 04-12 Oncology Visit Report Normal [facility] Partial Thromboplast Timeon 05-08-2024 aPTT Coag (Bld) [Time] 28.2 s Normal 24.1-36.2 [facility] Comment on above: Performed By: #### L 504.2610, L500.4050, L100.0100, L300.8000, L300.3900, L300.4310 ####[facility] [address] [place], [place], [phone] Prothrombin Time w/INRon INR Coag (PPP) [Relative time] 1.5 {INR} Normal [facility] Comment on above: Performed By: #### L 504.2610, L500.4050, L100.0100, L300.8000, L300.3900, L300.4310 ####[facility] [address] [place], [address] PT Coag (PPP) [Time] 17.8 s High 11.7-14.9 [facility] Comment on above: Performed By: #### L 504.2610, L500.4050, L100.0100, L300.8000, L300.3900, L300.4310 ####[facility] [address] [place], [address] MR/BMS.BVSon 03-31-2024 MR/BMS.BVS Normal [facility] Basic Metabolic Profile (BMP )on 03-17-2024 BUN Normal 7-18 [facility] Comment on above: Result Comment: Canc elled via OM: Order cancelled - Patient discharged Performed By: #### L 500.2500, L100.0100 ####[facility] [address] [place], [address] BUN/CRE Normal 10-20 [facility] Comment on above: Result Comment: Canc elled via OM: Order cancelled - Patient discharged Performed By: #### L 500.2500, L100.0100 ####[facility] [address] [place], [address] CA,Total Normal 8.5-10.1 [facility] Comment on above: Result Comment: Canc elled via OM: Order cancelled - Patient discharged Performed By: #### L 500.2500, L100.0100 ####[facility] [address] [place], [address] CL Normal 98-107 [facility] Comment on above: Result Comment: Canc elled via OM: Order cancelled - Patient discharged Performed By: #### L 500.2500, L100.0100 ####[facility] [address] [place], [address] CO2 Normal 21.0-32.0 [facility] Comment on above: Result Comment: Canc elled via OM: Order cancelled - Patient discharged Performed By: #### L 500.2500, L100.0100 ####[facility] [address] [place], [address] CREAT,SERUM Normal 0.55-1.02 [facility] Comment on above: Result Comment: Canc elled via OM: Order cancelled - Patient discharged Performed By: #### L 500.2500, L100.0100 ####[facility] [address] [place], [address] EST GFR Normal >60 [facility] Comment on above: Result Comment: Canc elled via OM: Order cancelled - Patient discharged Performed By: #### L 500.2500, L100.0100 ####[facility] [address] [place], [address] EST GFR - AA Normal >60 [facility] Comment on above: Result Comment: Canc elled via OM: Order cancelled - Patient discharged Performed By: #### L 500.2500, L100.0100 ####[facility] [address] [place], [address] GAP Normal 5-15 [facility] Comment on above: Result Comment: Canc elled via OM: Order cancelled - Patient discharged Performed By: #### L 500.2500, L100.0100 ####[facility] [address] [place], [address] GLU Normal 74-106 [facility] Comment on above: Result Comment: Canc elled via OM: Order cancelled - Patient discharged Performed By: #### L 500.2500, L100.0100 ####[facility] [address] [place], [address] Potassium Normal 3.5-5.1 [facility] Comment on above: Result Comment: Canc elled via OM: Order cancelled - Patient discharged Performed By: #### L 500.2500, L100.0100 ####[facility] [address] [place], [address] Basic Metabolic Profile (BMP) Normal 136-145 [facility] Comment on above: Result Comment: Canc elled via OM: Order cancelled - Patient discharged Performed By: #### L 500.2500, L100.0100 ####[facility] [address] [place], [address] CBC W/Diff, Automatedon 09-0 -2023 Absolute Neut Normal 2.0-7.7 [facility] Comment on above: Result Comment: Canc elled via OM: Order cancelled - Patient discharged Performed By: #### L 500.2500, L100.0100 ####[facility] [address] [place], [address] HCT Normal 37-47 [facility] Comment on above: Result Comment: Canc elled via OM: Order cancelled - Patient discharged Performed By: #### L 500.2500, L100.0100 ####[facility] [address] [place], [address] HGB Normal 12.0-15.0 [facility] Comment on above: Result Comment: Canc elled via OM: Order cancelled - Patient discharged Performed By: #### L 500.2500, L100.0100 ####[facility] [address] [place], [address] MCH Normal 27.0-32.0 [facility] Comment on above: Result Comment: Canc elled via OM: Order cancelled - Patient discharged Performed By: #### L 500.2500, L100.0100 ####[facility] [address] [place], [address] MCHC Normal 32-36 [facility] Comment on above: Result Comment: Canc elled via OM: Order cancelled - Patient discharged Performed By: #### L 500.2500, L100.0100 ####[facility] [address] [place], [address] MCV Normal 81-99 [facility] Comment on above: Result Comment: Canc elled via OM: Order cancelled - Patient discharged Performed By: #### L 500.2500, L100.0100 ####[facility] [address] [place], [address] NEUT% Normal 47-70 [facility] Comment on above: Result Comment: Canc elled via OM: Order cancelled - Patient discharged Performed By: #### L 500.2500, L100.0100 ####[facility] [address] [place], [address] PLT Normal 150-450 [facility] Comment on above: Result Comment: Canc elled via OM: Order cancelled - Patient discharged Performed By: #### L 500.2500, L100.0100 ####[facility] [address] [place], [address] RBC Normal 4.2-5.4 [facility] Comment on above: Result Comment: Canc elled via OM: Order cancelled - Patient discharged Performed By: #### L 500.2500, L100.0100 ####[facility] [address] [place], [address] RDW CV Normal 11.6-14.6 [facility] Comment on above: Result Comment: Canc elled via OM: Order cancelled - Patient discharged Performed By: #### L 500.2500, L100.0100 ####[facility] [address] [place], [address] RDW SD Normal 35.1-43.9 [facility] Comment on above: Result Comment: Canc elled via OM: Order cancelled - Patient discharged Performed By: #### L 500.2500, L100.0100 ####[facility] [address] [place], [address] WBC Normal 4.4-11.0 [facility] Comment on above: Result Comment: Canc elled via OM: Order cancelled - Patient discharged Performed By: #### L 500.2500, L100.0100 ####[facility] [address] [place], [address] Basic Metabolic Profile (BMP )on 03-16-2024 BUN/CRE 23.1 RATIO High 10-20 [facility] Comment on above: Performed By: #### L 500.2500, L100.0100 ####[facility] [address] [place], [address] CA,Total 9.0 mg/dL Normal 8.5-10.1 [facility] Comment on above: Performed By: #### L 500.2500, L100.0100 ####[facility] [address] [place], [address] Chloride [Moles/Vol] 108 mmol/L High 98-107 [facility] Comment on above: Performed By: #### L 500.2500, L100.0100 ####[facility] [address] [place], [address] CO2 [Moles/Vol] 28.0 mmol/L Normal 21.0-32.0 [facility] Comment on above: Performed By: #### L 500.2500, L100.0100 ####[facility] [address] [place], [address] Creatinine [Mass/Vol] 0.78 mg/dL Normal 0.55-1.02 [facility] Comment on above: Result Comment: The validity of the calculated GFR GFRAA in patients over70 years has not been determined. Clinical correlation isessential. Performed By: #### L 500.2500, L100.0100 ####[facility] [address] [place], [address] ECRCL 67.14 ml/min Normal [facility] Comment on above: Performed By: #### L 500.2500, L100.0100 ####[facility] [address] [place], [address] EST GFR - AA 92 mL/min Normal >60 [facility] Comment on above: Result Comment: Afri can Belgian GFR Calc Performed By: #### L 500.2500, L100.0100 ####[facility] [address] [place], [address] GAP 4 Low 5-15 [facility] Comment on above: Performed By: #### L 500.2500, L100.0100 ####[facility] [address] [place], [address] GFR/1.73 sq M.predicted among non-blacks MDRD (S/P/Bld) [Vol rate/Area] 76 mL/min/{1.73_m2} Normal >60 [facility] Comment on above: Result Comment: Non- GFR Calc Performed By: #### L 500.2500, L100.0100 ####[facility] [address] [place], [address] Glucose [Mass/Vol] 151 mg/dL High 74-106 [facility] Comment on above: Result Comment: Fast ing Glucose result greater than or equal to 126 mg/dLsuggests DIABETES MELLITUS per A.D.A. criteria. Performed By: #### L 500.2500, L100.0100 ####[facility] [address] [place], [address] Potassium [Moles/Vol] 4.2 mmol/L Normal 3.5-5.1 [facility] Comment on above: Performed By: #### L 500.2500, L100.0100 ####[facility] [address] [place], [address] Sodium [Moles/Vol] 140 mmol/L Normal 136-145 [facility] Comment on above: Performed By: #### L 500.2500, L100.0100 ####[facility] [address] [place], [address] Urea nitrogen [Mass/Vol] 18 mg/dL Normal 7-18 [facility] Comment on above: Performed By: #### L 500.2500, L100.0100 ####[facility] [address] [place], [address] CBC W/Diff, Automatedon PATH REV Reviewed Normal [facility] Comment on above: Result Comment: Neut rophilic left shift.Clinical correlation necessary.Beto Green M.D. 03/16/24 AMENDED REPORT 03/16/24 1016 PATH REV previously reported as: May foll Performed By: #### L 500.2500, L100.0100 ####[facility] [address] [place], [address] PATH REV Reviewed Normal [facility] Comment on above: Result Comment: Neut rophilic left shift.Clinical correlation necessary.Beto Green M.D. 03/16/24 AMENDED REPORT 03/16/24 0852 PATH REV previously reported as: November foll Performed By: #### L 500.2500, L100.0100 ####[facility] [address] [place], [address] Discharge Instructionon Discharge Instruction Normal [facility] Partial Thromboplast Timeon 03-16-2024 aPTT Coag (Bld) [Time] 59.2 s High 24.1-36.2 [facility] Comment on above: Performed By: #### L 3004315 ####[facility] [address] [place], [address] aPTT Coag (Bld) [Time] 49.2 s High 24.1-36.2 [facility] Comment on above: Performed By: #### L 300.4310 ####[facility] [address] [place], [address] Basic Metabolic Profile (BMP )on 03-15-2024 BUN/CRE 28.8 RATIO High 10-20 [facility] Comment on above: Performed By: #### L 500.2500, L100.0100 ####[facility] [address] [place], [address] CA,Total 9.3 mg/dL Normal 8.5-10.1 [facility] Comment on above: Performed By: #### L 500.2500, L100.0100 ####[facility] [address] [place], [address] Chloride [Moles/Vol] 108 mmol/L High 98-107 [facility] Comment on above: Performed By: #### L 500.2500, L100.0100 ####[facility] [address] [place], [address] CO2 [Moles/Vol] 27.0 mmol/L Normal 21.0-32.0 [facility] Comment on above: Performed By: #### L 500.2500, L100.0100 ####[facility] [address] [place], [address] Creatinine [Mass/Vol] 0.80 mg/dL Normal 0.55-1.02 [facility] Comment on above: Result Comment: The validity of the calculated GFR GFRAA in patients over70 years has not been determined. Clinical correlation isessential. Performed By: #### L 500.2500, L100.0100 ####[facility] [address] [place], [address] ECRCL 67.41 ml/min Normal [facility] Comment on above: Performed By: #### L 500.2500, L100.0100 ####[facility] [address] [place], [address] EST GFR - AA 90 mL/min Normal >60 [facility] Comment on above: Result Comment: Afri can Belgian GFR Calc Performed By: #### L 500.2500, L100.0100 ####[facility] [address] [place], [address] GAP 4 Low 5-15 [facility] Comment on above: Performed By: #### L 500.2500, L100.0100 ####[facility] [address] [place], [address] GFR/1.73 sq M.predicted among non-blacks MDRD (S/P/Bld) [Vol rate/Area] 74 mL/min/{1.73_m2} Normal >60 [facility] Comment on above: Result Comment: Non- GFR Calc Performed By: #### L 500.2500, L100.0100 ####[facility] [address] [place], [address] Glucose [Mass/Vol] 116 mg/dL High 74-106 [facility] Comment on above: Result Comment: Fast ing Glucose result from 100 to 125 mg/dLsuggests IMPAIRED HOMEOSTASIS per A.D.A. criteria. Performed By: #### L 500.2500, L100.0100 ####[facility] [address] [place], [address] Potassium [Moles/Vol] 4.5 mmol/L Normal 3.5-5.1 [facility] Comment on above: Result Comment: Mode rate Hemolysis, Result may be falsely increased. Performed By: #### L 500.2500, L100.0100 ####[facility] [address] [place], [address] Sodium [Moles/Vol] 139 mmol/L Normal 136-145 [facility] Comment on above: Performed By: #### L 500.2500, L100.0100 ####[facility] [address] [place], [address] Urea nitrogen [Mass/Vol] 23 mg/dL High 7-18 [facility] Comment on above: Performed By: #### L 500.2500, L100.0100 ####[facility] [address] [place], [address] Operative Reporton Operative Report Normal [facility] Partial Thromboplast Timeon 03-15-2024 aPTT Coag (Bld) [Time] 98.9 s Invalid Interpretation Code 24.1-36.2 [facility] Comment on above: Result Comment: CRIT ICAL VALUE VERIFIED. CALLED TO SUSAN IGLESIAS RN ICU03/15/24 1633 Elmo Jimenez.RESULTS READ BACK BY SAME . Performed By: #### L 300.4310 ####[facility] [address] [place], [address] aPTT Coag (Bld) [Time] 49.9 s High 24.1-36.2 [facility] Comment on above: Performed By: #### L 300.4310 ####[facility] [address] [place], [address] Basic Metabolic Profile (BMP )on 03-14-2024 BUN/CRE 33.5 RATIO High 10-20 [facility] Comment on above: Performed By: #### L 500.2500, L100.0100 ####[facility] [address] [place], [address] CA,Total 8.7 mg/dL Normal 8.5-10.1 [facility] Comment on above: Performed By: #### L 500.2500, L100.0100 ####[facility] [address] [place], [address] Chloride [Moles/Vol] 110 mmol/L High 98-107 [facility] Comment on above: Performed By: #### L 500.2500, L100.0100 ####[facility] [address] [place], [address] CO2 [Moles/Vol] 26.0 mmol/L Normal 21.0-32.0 [facility] Comment on above: Performed By: #### L 500.2500, L100.0100 ####[facility] [address] [place], [address] Creatinine [Mass/Vol] 0.80 mg/dL Normal 0.55-1.02 [facility] Comment on above: Result Comment: The validity of the calculated GFR GFRAA in patients over70 years has not been determined. Clinical correlation isessential. Performed By: #### L 500.2500, L100.0100 ####[facility] [address] [place], [address] ECRCL 67.18 ml/min Normal [facility] Comment on above: Performed By: #### L 500.2500, L100.0100 ####[facility] [address] [place], [address] EST GFR - AA 89 mL/min Normal >60 [facility] Comment on above: Result Comment: Afri can Belgian GFR Calc Performed By: #### L 500.2500, L100.0100 ####[facility] [address] [place], [address] GAP 6 Normal 5-15 [facility] Comment on above: Performed By: #### L 500.2500, L100.0100 ####[facility] [address] [place], [address] GFR/1.73 sq M.predicted among non-blacks MDRD (S/P/Bld) [Vol rate/Area] 74 mL/min/{1.73_m2} Normal >60 [facility] Comment on above: Result Comment: Non- GFR Calc Performed By: #### L 500.2500, L100.0100 ####[facility] [address] [place], [address] Glucose [Mass/Vol] 135 mg/dL High 74-106 [facility] Comment on above: Result Comment: Fast ing Glucose result greater than or equal to 126 mg/dLsuggests DIABETES MELLITUS per A.D.A. criteria. Performed By: #### L 500.2500, L100.0100 ####[facility] [address] [place], [address] Potassium [Moles/Vol] 4.4 mmol/L Normal 3.5-5.1 [facility] Comment on above: Performed By: #### L 500.2500, L100.0100 ####[facility] [address] [place], [address] Sodium [Moles/Vol] 142 mmol/L Normal 136-145 [facility] Comment on above: Performed By: #### L 500.2500, L100.0100 ####[facility] [address] [place], [address] Urea nitrogen [Mass/Vol] 27 mg/dL High 7-18 [facility] Comment on above: Performed By: #### L 500.2500, L100.0100 ####[facility] [address] [place], [address] CBC W/Diff, Automatedon 09-0 3-2023 Absolute Lymph 2.42 X10 3/uL Normal 0.83-4.51 [facility] Comment on above: Performed By: #### L 500.2500, L100.0100 ####[facility] [address] [place], [address] Absolute Neut 6.5 X10 3/uL Normal 2.0-7.7 [facility] Comment on above: Performed By: #### L 500.2500, L100.0100 ####[facility] [address] [place], [address] Basophils/100 WBC (Bld) 0.7 % Normal 0-1 [facility] Comment on above: Performed By: #### L 500.2500, L100.0100 ####[facility] [address] [place], [address] Eosinophils/100 WBC (Bld) 0.8 % Normal 0-5 [facility] Comment on above: Performed By: #### L 500.2500, L100.0100 ####[facility] [address] [place], [address] Erythrocyte distribution width (RBC) [Ratio] 16.2 % High 11.6-14.6 [facility] Comment on above: Performed By: #### L 500.2500, L100.0100 ####[facility] [address] [place], [address] Hematocrit (Bld) [Volume fraction] 36.2 % Low 37-47 [facility] Comment on above: Performed By: #### L 500.2500, L100.0100 ####[facility] [address] [place], [address] Hemoglobin (Bld) [Mass/Vol] 11.5 g/dL Low 12.0-15.0 [facility] Comment on above: Performed By: #### L 500.2500, L100.0100 ####[facility] [address] [place], [address] IG% 3.300 High 0.0-0.9 [facility] Comment on above: Result Comment: IG% - Immature Granulocytes (promyelocytes, myelocytes andmetamyelocytes) > 1% indicates that a LEFT SHIFT is Present. Performed By: #### L 500.2500, L100.0100 ####[facility] [address] [place], [address] Lymphocytes/100 WBC (Bld) 22.5 % Normal 19-41 [facility] Comment on above: Performed By: #### L 500.2500, L100.0100 ####[facility] [address] [place], [address] MCH (RBC) [Entitic mass] 29.3 pg Normal 27.0-32.0 [facility] Comment on above: Performed By: #### L 500.2500, L100.0100 ####[facility] [address] [place], [address] MCHC (RBC) [Mass/Vol] 31.8 g/dL Low 32-36 [facility] Comment on above: Performed By: #### L 500.2500, L100.0100 ####[facility] [address] [place], [address] MCV (RBC) [Entitic vol] 92.1 fL Normal 81-99 [facility] Comment on above: Performed By: #### L 500.2500, L100.0100 ####[facility] [address] [place], [address] Monocytes/100 WBC (Bld) 12.1 % High 0-10 [facility] Comment on above: Performed By: #### L 500.2500, L100.0100 ####[facility] [address] [place], [address] Neutrophils/100 WBC (Bld) 60.6 % Normal 47-70 [facility] Comment on above: Performed By: #### L 500.2500, L100.0100 ####[facility] [address] [place], [address] Nucleated RBC (Bld) [#/Vol] 0 10*3/uL Normal 0-5 [facility] Comment on above: Performed By: #### L 500.2500, L100.0100 ####[facility] [address] [place], [address] Platelet mean volume (Bld) [Entitic vol] 9.5 fL Normal 6.2-12.0 [facility] Comment on above: Performed By: #### L 500.2500, L100.0100 ####[facility] [address] [place], [address] Platelets (Bld) [#/Vol] 178 10*3/uL Normal 150-450 [facility] Comment on above: Performed By: #### L 500.2500, L100.0100 ####[facility] [address] [place], [address] RBC (Bld) [#/Vol] 3.93 10*6/uL Low 4.2-5.4 [facility] Comment on above: Performed By: #### L 500.2500, L100.0100 ####[facility] [address] [place], [address] RDW SD 55.0 fl High 35.1-43.9 [facility] Comment on above: Performed By: #### L 500.2500, L100.0100 ####[facility] [address] [place], [address] WBC (Bld) [#/Vol] 10.8 10*3/uL Normal 4.4-11.0 [facility] Comment on above: Performed By: #### L 500.2500, L100.0100 ####[facility] [address] [place], [address] Partial Thromboplast Timeon 03-14-2024 aPTT Coag (Bld) [Time] 63.6 s High 24.1-36.2 [facility] Comment on above: Performed By: #### L 300.4310 ####[facility] [address] [place], [address] Basic Metabolic Profile (BMP )on 03-13-2024 BUN/CRE 28.5 RATIO High 10-20 [facility] Comment on above: Performed By: #### L 500.2500, L100.0100 ####[facility] [address] [place], [address] CA,Total 8.8 mg/dL Normal 8.5-10.1 [facility] Comment on above: Performed By: #### L 500.2500, L100.0100 ####[facility] [address] [place], [address] Chloride [Moles/Vol] 111 mmol/L High 98-107 [facility] Comment on above: Performed By: #### L 500.2500, L100.0100 ####[facility] [address] [place], [address] CO2 [Moles/Vol] 25.0 mmol/L Normal 21.0-32.0 [facility] Comment on above: Performed By: #### L 500.2500, L100.0100 ####[facility] [address] [place], [address] Creatinine [Mass/Vol] 0.95 mg/dL Normal 0.55-1.02 [facility] Comment on above: Result Comment: The validity of the calculated GFR GFRAA in patients over70 years has not been determined. Clinical correlation isessential. Performed By: #### L 500.2500, L100.0100 ####[facility] [address] [place], [address] ECRCL 55.44 ml/min Normal [facility] Comment on above: Performed By: #### L 500.2500, L100.0100 ####[facility] [address] [place], [address] EST GFR - AA 74 mL/min Normal >60 [facility] Comment on above: Result Comment: Afri can Belgian GFR Calc Performed By: #### L 500.2500, L100.0100 ####[facility] [address] [place], [address] GAP 6 Normal 5-15 [facility] Comment on above: Performed By: #### L 500.2500, L100.0100 ####[facility] [address] [place], [address] GFR/1.73 sq M.predicted among non-blacks MDRD (S/P/Bld) [Vol rate/Area] 61 mL/min/{1.73_m2} Normal >60 [facility] Comment on above: Result Comment: Non- GFR Calc Performed By: #### L 500.2500, L100.0100 ####[facility] [address] [place], [address] Glucose [Mass/Vol] 160 mg/dL High 74-106 [facility] Comment on above: Result Comment: Fast ing Glucose result greater than or equal to 126 mg/dLsuggests DIABETES MELLITUS per A.D.A. criteria. Performed By: #### L 500.2500, L100.0100 ####[facility] [address] [place], [address] Potassium [Moles/Vol] 4.0 mmol/L Normal 3.5-5.1 [facility] Comment on above: Performed By: #### L 500.2500, L100.0100 ####[facility] [address] [place], [address] Sodium [Moles/Vol] 142 mmol/L Normal 136-145 [facility] Comment on above: Performed By: #### L 500.2500, L100.0100 ####[facility] [address] [place], [address] Urea nitrogen [Mass/Vol] 27 mg/dL High 7-18 [facility] Comment on above: Performed By: #### L 500.2500, L100.0100 ####[facility] [address] [place], [address] CBC W/Diff, Automatedon 09-0 2-4 Absolute Lymph 2.44 X10 3/uL Normal 0.83-4.51 [facility] Comment on above: Performed By: #### L 500.2500, L100.0100 ####[facility] [address] [place], [address] Absolute Neut 7.1 X10 3/uL Normal 2.0-7.7 [facility] Comment on above: Performed By: #### L 500.2500, L100.0100 ####[facility] [address] [place], [address] Basophils/100 WBC (Bld) 0.6 % Normal 0-1 [facility] Comment on above: Performed By: #### L 500.2500, L100.0100 ####[facility] [address] [place], [address] Eosinophils/100 WBC (Bld) 0.4 % Normal 0-5 [facility] Comment on above: Performed By: #### L 500.2500, L100.0100 ####[facility] [address] [place], [address] Erythrocyte distribution width (RBC) [Ratio] 16.5 % High 11.6-14.6 [facility] Comment on above: Performed By: #### L 500.2500, L100.0100 ####[facility] [address] [place], [address] Hematocrit (Bld) [Volume fraction] 39.9 % Normal 37-47 [facility] Comment on above: Performed By: #### L 500.2500, L100.0100 ####[facility] [address] [place], [address] Hemoglobin (Bld) [Mass/Vol] 12.7 g/dL Normal 12.0-15.0 [facility] Comment on above: Performed By: #### L 500.2500, L100.0100 ####[facility] [address] [place], [address] IG% 2.800 High 0.0-0.9 [facility] Comment on above: Result Comment: IG% - Immature Granulocytes (promyelocytes, myelocytes andmetamyelocytes) > 1% indicates that a LEFT SHIFT is Present. Performed By: #### L 500.2500, L100.0100 ####[facility] [address] [place], [address] Lymphocytes/100 WBC (Bld) 21.7 % Normal 19-41 [facility] Comment on above: Performed By: #### L 500.2500, L100.0100 ####[facility] [address] [place], [address] MCH (RBC) [Entitic mass] 29.3 pg Normal 27.0-32.0 [facility] Comment on above: Performed By: #### L 500.2500, L100.0100 ####[facility] [address] [place], [address] MCHC (RBC) [Mass/Vol] 31.8 g/dL Low 32-36 [facility] Comment on above: Performed By: #### L 500.2500, L100.0100 ####[facility] [address] [place], [address] MCV (RBC) [Entitic vol] 91.9 fL Normal 81-99 [facility] Comment on above: Performed By: #### L 500.2500, L100.0100 ####[facility] [address] [place], [address] Monocytes/100 WBC (Bld) 11.0 % High 0-10 [facility] Comment on above: Performed By: #### L 500.2500, L100.0100 ####[facility] [address] [place], [address] Neutrophils/100 WBC (Bld) 63.5 % Normal 47-70 [facility] Comment on above: Performed By: #### L 500.2500, L100.0100 ####[facility] [address] [place], [address] Nucleated RBC (Bld) [#/Vol] 0 10*3/uL Normal 0-5 [facility] Comment on above: Performed By: #### L 500.2500, L100.0100 ####[facility] [address] [place], [address] Platelet mean volume (Bld) [Entitic vol] 9.6 fL Normal 6.2-12.0 [facility] Comment on above: Performed By: #### L 500.2500, L100.0100 ####[facility] [address] [place], [address] Platelets (Bld) [#/Vol] 209 10*3/uL Normal 150-450 [facility] Comment on above: Performed By: #### L 500.2500, L100.0100 ####[facility] [address] [place], [address] RBC (Bld) [#/Vol] 4.34 10*6/uL Normal 4.2-5.4 [facility] Comment on above: Performed By: #### L 500.2500, L100.0100 ####[facility] [address] [place], [address] RDW SD 55.4 fl High 35.1-43.9 [facility] Comment on above: Performed By: #### L 500.2500, L100.0100 ####[facility] [address] [place], [address] WBC (Bld) [#/Vol] 11.2 10*3/uL High 4.4-11.0 [facility] Comment on above: Performed By: #### L 500.2500, L100.0100 ####[facility] [address] [place], [address] Consultation - Intensiviston 03-13-2024 Consultation - Sample Examiner Normal [facility] Consultation - Surgicalon Consultation - Surgical Normal [facility] Partial Thromboplast Timeon 03-13-2024 aPTT Coag (Bld) [Time] 68.5 s High 24.1-36.2 [facility] Comment on above: Performed By: #### L 300.4310 ####[facility] [address] [place], [address] aPTT Coag (Bld) [Time] 73.1 s High 24.1-36.2 [facility] Comment on above: Performed By: #### L 300.4310 ####[facility] [address] [place], [address] 12 Lead EKGon 03-12-2024 12 Lead EKG Normal [facility] BNP,B-Type NATRIURETIC PEPTI Marcelina 03-12-2024 Natriuretic peptide B (Bld) [Mass/Vol] 113.4 pg/mL High 0-100 [facility] Comment on above: Performed By: #### L 501.4020, L503.6620, L300.3900, L500.2500, L500.3400, L100.0100, L300.4310, L503.6005 ####[facility] [address] [place], [address] Basic Metabolic Profile (BMP )on 03-12-2024 BUN/CRE 24.8 RATIO High 10-20 [facility] Comment on above: Order Comment: 'TROP ' Serial specimen #1, #2 or #3: 1 Performed By: #### L 501.4020, L503.6620, L300.3900, L500.2500, L500.3400, L100.0100, L300.4310, L503.6005 ####[facility] [address] [place], [address] CA,Total 9.6 mg/dL Normal 8.5-10.1 [facility] Comment on above: Order Comment: 'TROP ' Serial specimen #1, #2 or #3: 1 Performed By: #### L 501.4020, L503.6620, L300.3900, L500.2500, L500.3400, L100.0100, L300.4310, L503.6005 ####[facility] [address] [place], [address] Chloride [Moles/Vol] 108 mmol/L High 98-107 [facility] Comment on above: Order Comment: 'TROP ' Serial specimen #1, #2 or #3: 1 Performed By: #### L 501.4020, L503.6620, L300.3900, L500.2500, L500.3400, L100.0100, L300.4310, L503.6005 ####[facility] [address] [place], [address] CO2 [Moles/Vol] 24.0 mmol/L Normal 21.0-32.0 [facility] Comment on above: Order Comment: 'TROP ' Serial specimen #1, #2 or #3: 1 Performed By: #### L 501.4020, L503.6620, L300.3900, L500.2500, L500.3400, L100.0100, L300.4310, L503.6005 ####[facility] [address] [place], [address] Creatinine [Mass/Vol] 1.13 mg/dL High 0.55-1.02 [facility] Comment on above: Order Comment: 'TROP ' Serial specimen #1, #2 or #3: 1 Result Comment: The validity of the calculated GFR GFRAA in patients over70 years has not been determined. Clinical correlation isessential. Performed By: #### L 501.4020, L503.6620, L300.3900, L500.2500, L500.3400, L100.0100, L300.4310, L503.6005 ####[facility] [address] [place], [address] ECRCL 48.36 ml/min Normal [facility] Comment on above: Order Comment: 'TROP ' Serial specimen #1, #2 or #3: 1 Performed By: #### L 501.4020, L503.6620, L300.3900, L500.2500, L500.3400, L100.0100, L300.4310, L503.6005 ####[facility] [address] [place], [place], [address] EST GFR - AA 60 mL/min Normal >60 [facility] Comment on above: Order Comment: 'TROP ' Serial specimen #1, #2 or #3: 1 Result Comment: Afri can Belgian GFR Calc Performed By: #### L 501.4020, L503.6620, L300.3900, L500.2500, L500.3400, L100.0100, L300.4310, L503.6005 ####[facility] [address] [place], [address] GAP 9 Normal 5-15 [facility] Comment on above: Order Comment: 'TROP ' Serial specimen #1, #2 or #3: 1 Performed By: #### L 501.4020, L503.6620, L300.3900, L500.2500, L500.3400, L100.0100, L300.4310, L503.6005 ####[facility] [address] [place], [place], [address]) GFR/1.73 sq M.predicted among non-blacks MDRD (S/P/Bld) [Vol rate/Area] 50 mL/min/{1.73_m2} Low >60 [facility] Comment on above: Order Comment: 'TROP ' Serial specimen #1, #2 or #3: 1 Result Comment: Non- GFR Calc Performed By: #### L 501.4020, L503.6620, L300.3900, L500.2500, L500.3400, L100.0100, L300.4310, L503.6005 ####[facility] [address] [place], [address] Glucose [Mass/Vol] 223 mg/dL High 74-106 [facility] Comment on above: Order Comment: 'TROP ' Serial specimen #1, #2 or #3: 1 Result Comment: Gluc ose result greater than or equal to 200 mg/dLsuggests DIABETES MELLITUS per A.D.A. criteria. Performed By: #### L 501.4020, L503.6620, L300.3900, L500.2500, L500.3400, L100.0100, L300.4310, L503.6005 ####[facility] [address] [place], [address] Potassium [Moles/Vol] 4.1 mmol/L Normal 3.5-5.1 [facility] Comment on above: Order Comment: 'TROP ' Serial specimen #1, #2 or #3: 1 Result Comment: Slig ht Hemolysis, Result may be falsely increased. Performed By: #### L 501.4020, L503.6620, L300.3900, L500.2500, L500.3400, L100.0100, L300.4310, L503.6005 ####[facility] [address] [place], [address] Sodium [Moles/Vol] 141 mmol/L Normal 136-145 [facility] Comment on above: Order Comment: 'TROP ' Serial specimen #1, #2 or #3: 1 Performed By: #### L 501.4020, L503.6620, L300.3900, L500.2500, L500.3400, L100.0100, L300.4310, L503.6005 ####[facility] [address] [place], [address] Urea nitrogen [Mass/Vol] 28 mg/dL High 7-18 [facility] Comment on above: Order Comment: 'TROP ' Serial specimen #1, #2 or #3: 1 Performed By: #### L 501.4020, L503.6620, L300.3900, L500.2500, L500.3400, L100.0100, L300.4310, L503.6005 ####[facility] [address] [place], [place], [id number] CBC W/Diff, Automatedon 09-0 -2023 Absolute Lymph 1.90 X10 3/uL Normal 0.83-4.51 [facility] Comment on above: Performed By: #### L 501.4020, L503.6620, L300.3900, L500.2500, L500.3400, L100.0100, L300.4310, L503.6005 ####[facility] [address] [place], [address] Absolute Neut 10.6 X10 3/uL High 2.0-7.7 [facility] Comment on above: Performed By: #### L 501.4020, L503.6620, L300.3900, L500.2500, L500.3400, L100.0100, L300.4310, L503.6005 ####[facility] [address] [place], [address] Basophils/100 WBC (Bld) 1.1 % High 0-1 [facility] Comment on above: Performed By: #### L 501.4020, L503.6620, L300.3900, L500.2500, L500.3400, L100.0100, L300.4310, L503.6005 ####[facility] [address] [place], [address] Eosinophils/100 WBC (Bld) 0.1 % Normal 0-5 [facility] Comment on above: Performed By: #### L 501.4020, L503.6620, L300.3900, L500.2500, L500.3400, L100.0100, L300.4310, L503.6005 ####[facility] [address] [place], [address] Erythrocyte distribution width (RBC) [Ratio] 16.1 % High 11.6-14.6 [facility] Comment on above: Performed By: #### L 501.4020, L503.6620, L300.3900, L500.2500, L500.3400, L100.0100, L300.4310, L503.6005 ####[facility] [address] [place], [address] Hematocrit (Bld) [Volume fraction] 42.7 % Normal 37-47 [facility] Comment on above: Performed By: #### L 501.4020, L503.6620, L300.3900, L500.2500, L500.3400, L100.0100, L300.4310, L503.6005 ####[facility] [address] [place], [address] Hemoglobin (Bld) [Mass/Vol] 13.9 g/dL Normal 12.0-15.0 [facility] Comment on above: Performed By: #### L 501.4020, L503.6620, L300.3900, L500.2500, L500.3400, L100.0100, L300.4310, L503.6005 ####[facility] [address] [place], [address] IG% 2.300 High 0.0-0.9 [facility] Comment on above: Result Comment: IG% - Immature Granulocytes (promyelocytes, myelocytes andmetamyelocytes) > 1% indicates that a LEFT SHIFT is Present. Performed By: #### L 501.4020, L503.6620, L300.3900, L500.2500, L500.3400, L100.0100, L300.4310, L503.6005 ####[facility] [address] [place], [address] Lymphocytes/100 WBC (Bld) 13.4 % Low 19-41 [facility] Comment on above: Performed By: #### L 501.4020, L503.6620, L300.3900, L500.2500, L500.3400, L100.0100, L300.4310, L503.6005 ####[facility] [address] [place], [address] MCH (RBC) [Entitic mass] 29.1 pg Normal 27.0-32.0 [facility] Comment on above: Performed By: #### L 501.4020, L503.6620, L300.3900, L500.2500, L500.3400, L100.0100, L300.4310, L503.6005 ####[facility] [address] [place], [address] MCHC (RBC) [Mass/Vol] 32.6 g/dL Normal 32-36 [facility] Comment on above: Performed By: #### L 501.4020, L503.6620, L300.3900, L500.2500, L500.3400, L100.0100, L300.4310, L503.6005 ####[facility] [address] [place], [address] MCV (RBC) [Entitic vol] 89.5 fL Normal 81-99 [facility] Comment on above: Performed By: #### L 501.4020, L503.6620, L300.3900, L500.2500, L500.3400, L100.0100, L300.4310, L503.6005 ####[facility] [address] [place], [address] Monocytes/100 WBC (Bld) 8.1 % Normal 0-10 [facility] Comment on above: Performed By: #### L 501.4020, L503.6620, L300.3900, L500.2500, L500.3400, L100.0100, L300.4310, L503.6005 ####[facility] [address] [place], [address] Neutrophils/100 WBC (Bld) 75.0 % High 47-70 [facility] Comment on above: Performed By: #### L 501.4020, L503.6620, L300.3900, L500.2500, L500.3400, L100.0100, L300.4310, L503.6005 ####[facility] [address] [place], [address] Nucleated RBC (Bld) [#/Vol] 0 10*3/uL Normal 0-5 [facility] Comment on above: Performed By: #### L 501.4020, L503.6620, L300.3900, L500.2500, L500.3400, L100.0100, L300.4310, L503.6005 ####[facility] [address] [place], [address] Platelet mean volume (Bld) [Entitic vol] 10.0 fL Normal 6.2-12.0 [facility] Comment on above: Performed By: #### L 501.4020, L503.6620, L300.3900, L500.2500, L500.3400, L100.0100, L300.4310, L503.6005 ####[facility] [address] [place], [address] Platelets (Bld) [#/Vol] 266 10*3/uL Normal 150-450 [facility] Comment on above: Performed By: #### L 501.4020, L503.6620, L300.3900, L500.2500, L500.3400, L100.0100, L300.4310, L503.6005 ####[facility] [address] [place], [address] RBC (Bld) [#/Vol] 4.77 10*6/uL Normal 4.2-5.4 [facility] Comment on above: Performed By: #### L 501.4020, L503.6620, L300.3900, L500.2500, L500.3400, L100.0100, L300.4310, L503.6005 ####[facility] [address] [place], [address] RDW SD 51.7 fl High 35.1-43.9 [facility] Comment on above: Performed By: #### L 501.4020, L503.6620, L300.3900, L500.2500, L500.3400, L100.0100, L300.4310, L503.6005 ####[facility] [address] [place], [address] WBC (Bld) [#/Vol] 14.1 10*3/uL High 4.4-11.0 [facility] Comment on above: Performed By: #### L 501.4020, L503.6620, L300.3900, L500.2500, L500.3400, L100.0100, L300.4310, L503.6005 ####[facility] [address] [place], [address] CTA Chest W/WO Contraston CTA Chest W/WO Contrast Normal [facility] Echo Complete W/ Contraston 03-12-2024 Echo Complete W/ Contrast Normal [facility] Emergency Department Summary on 03-12-2024 Emergency Department Summary Normal [facility] H AND P Exam - Hospitaliston 03-12-2024 H&P Exam - Hospitalist Normal [facility] L501.4020on 03-12-2024 TROPONIN-I HS 282 pg/mL Invalid Interpretation Code 3.0-54.0 [facility] Comment on above: Order Comment: 'TROP ' Serial specimen #1, #2 or #3: 1 Result Comment: Crit ical Result(s) Called at: 13:15:20 03/12/2024 by: Ellen Arthur RN (ER). Results read back by same. Please Note: New Test Units and Gender Specific Reference Ranges. For more information see Policy Stat Procedure Hallam High Sensitivity Troponin (TNIH) and attachments. Performed By: #### L 501.4020, L503.6620, L300.3900, L500.2500, L500.3400, L100.0100, L300.4310, L503.6005 ####[facility] [address] [place], [address] Lactic Acidon 03-12-2024 Lactate [Moles/Vol] 2.1 mmol/L Invalid Interpretation Code 0.4-1.9 [facility] Comment on above: Result Comment: Crit ical Result(s) Called at: 17:48:33 03/12/2024 by: ANDRES KELLEY. Results read back by same. Performed By: #### L 503.6005 ####[facility] [address] [place], [address] Lactate [Moles/Vol] 3.2 mmol/L Invalid Interpretation Code 0.4-1.9 [facility] Comment on above: Order Comment: Y Result Comment: Crit ical Result(s) Called at: 13:15:20 03/12/2024 by: Ellen Arthur RN (ER). Results read back by same. Performed By: #### L 501.4020, L503.6620, L300.3900, L500.2500, L500.3400, L100.0100, L300.4310, L503.6005 ####[facility] [address] [place], [address] Liver Profileon 03-12-2024 Albumin [Mass/Vol] 3.4 g/dL Normal 3.2-5.0 [facility] Comment on above: Order Comment: 'TROP ' Serial specimen #1, #2 or #3: 1 Performed By: #### L 501.4020, L503.6620, L300.3900, L500.2500, L500.3400, L100.0100, L300.4310, L503.6005 ####[facility] [address] [place], [address] ALK P 84 U/L Normal 45-117 [facility] Comment on above: Order Comment: 'TROP ' Serial specimen #1, #2 or #3: 1 Performed By: #### L 501.4020, L503.6620, L300.3900, L500.2500, L500.3400, L100.0100, L300.4310, L503.6005 ####[facility] [address] [place], [address] ALT [Catalytic activity/Vol] 33 U/L Normal 13-56 [facility] Comment on above: Order Comment: 'TROP ' Serial specimen #1, #2 or #3: 1 Performed By: #### L 501.4020, L503.6620, L300.3900, L500.2500, L500.3400, L100.0100, L300.4310, L503.6005 ####[facility] [address] [place], [address] AST [Catalytic activity/Vol] 33 U/L Normal 15-37 [facility] Comment on above: Order Comment: 'TROP ' Serial specimen #1, #2 or #3: 1 Result Comment: Slig ht Hemolysis, Result may be falsely increased. Performed By: #### L 501.4020, L503.6620, L300.3900, L500.2500, L500.3400, L100.0100, L300.4310, L503.6005 ####[facility] [address] [place], [address] Bilirubin [Mass/Vol] 0.60 mg/dL Normal 0.20-1.00 [facility] Comment on above: Order Comment: 'TROP ' Serial specimen #1, #2 or #3: 1 Result Comment: For patients on eltrombopag therapy, use of Dimension Hallam TBIL is not recommended. Performed By: #### L 501.4020, L503.6620, L300.3900, L500.2500, L500.3400, L100.0100, L300.4310, L503.6005 ####[facility] [address] [place], [address] Bilirubin.direct [Mass/Vol] 0.17 mg/dL Normal 0.00-0.30 [facility] Comment on above: Order Comment: 'TROP ' Serial specimen #1, #2 or #3: 1 Performed By: #### L 501.4020, L503.6620, L300.3900, L500.2500, L500.3400, L100.0100, L300.4310, L503.6005 ####[facility] [address] [place], [address] Globulin (S) [Mass/Vol] 3.2 g/dL Normal 2.2-4.2 [facility] Comment on above: Order Comment: 'TROP ' Serial specimen #1, #2 or #3: 1 Performed By: #### L 501.4020, L503.6620, L300.3900, L500.2500, L500.3400, L100.0100, L300.4310, L503.6005 ####[facility] [address] [place], [address] T PROT 6.6 g/dL Normal 6.4-8.2 [facility] Comment on above: Order Comment: 'TROP ' Serial specimen #1, #2 or #3: 1 Performed By: #### L 501.4020, L503.6620, L300.3900, L500.2500, L500.3400, L100.0100, L300.4310, L503.6005 ####[facility] [address] [place], [address] Partial Thromboplast Timeon 03-12-2024 aPTT Coag (Bld) [Time] 219.3 s Invalid Interpretation Code 24.1-36.2 [facility] Comment on above: Result Comment: CRIT ICAL VALUE VERIFIED. CALLED TO [id number] Brenda Pereyra.RESULTS READ BACK BY SAME . Performed By: #### L 300.4310 ####[facility] [address] [place], [address] aPTT Coag (Bld) [Time] 22.2 s Low 24.1-36.2 [facility] Comment on above: Performed By: #### L 501.4020, L503.6620, L300.3900, L500.2500, L500.3400, L100.0100, L300.4310, L503.6005 ####[facility] [address] [place], [address] Prothrombin Time w/INRon INR Normal [facility] Comment on above: Result Comment: ELIE LARSEN RN PT HAD SAME LABS DONE 1 [facility] @6458 Performed By: #### L 300.3900 ####[facility] [address] [place], [address] PROTIME Normal 11.7-14.9 [facility] Comment on above: Result Comment: ELIE LARSEN RN PT HAD SAME LABS DONE 1 [facility] @1358 Performed By: #### L 300.3900 ####[facility] [address] [place], [address] INR Coag (PPP) [Relative time] 1.0 {INR} Normal [facility] Comment on above: Performed By: #### L 501.4020, L503.6620, L300.3900, L500.2500, L500.3400, L100.0100, L300.4310, L503.6005 ####[facility] [address] [place], [address] PT Coag (PPP) [Time] 13.4 s Normal 11.7-14.9 [facility] Comment on above: Performed By: #### L 501.4020, L503.6620, L300.3900, L500.2500, L500.3400, L100.0100, L300.4310, L503.6005 ####[facility] [address] [place], [address] Venous Duplex US - Eben Extre mon 03-12-2024 Venous Duplex US - Eben Extrem Normal [facility] CBC W/Diff, Automatedon 02-11 Absolute Lymph 2.77 X10 3/uL Normal 0.83-4.51 [facility] Comment on above: Performed By: #### L 500.4100, L501.9520, L506.1000, L100.0100, L500.4050 ####[facility] [address] [place], [address] Absolute Neut 6.8 X10 3/uL Normal 2.0-7.7 [facility] Comment on above: Performed By: #### L 500.4100, L501.9520, L506.1000, L100.0100, L500.4050 ####[facility] [address] [place], [address] Basophils/100 WBC (Bld) 0.3 % Normal 0-1 [facility] Comment on above: Performed By: #### L 500.4100, L501.9520, L506.1000, L100.0100, L500.4050 ####[facility] [address] [place], [address] Eosinophils/100 WBC (Bld) 0.6 % Normal 0-5 [facility] Comment on above: Performed By: #### L 500.4100, L501.9520, L506.1000, L100.0100, L500.4050 ####[facility] [address] [place], [address] Erythrocyte distribution width (RBC) [Ratio] 15.6 % High 11.6-14.6 [facility] Comment on above: Performed By: #### L 500.4100, L501.9520, L506.1000, L100.0100, L500.4050 ####[facility] [address] [place], [address] Hematocrit (Bld) [Volume fraction] 43.7 % Normal 37-47 [facility] Comment on above: Performed By: #### L 500.4100, L501.9520, L506.1000, L100.0100, L500.4050 ####[facility] [address] [place], [address] Hemoglobin (Bld) [Mass/Vol] 15.7 g/dL High 12.0-15.0 [facility] Comment on above: Performed By: #### L 500.4100, L501.9520, L506.1000, L100.0100, L500.4050 ####[facility] [address] [place], [address] IG% 2.300 High 0.0-0.9 [facility] Comment on above: Result Comment: IG% - Immature Granulocytes (promyelocytes, myelocytes andmetamyelocytes) > 1% indicates that a LEFT SHIFT is Present. Performed By: #### L 500.4100, L501.9520, L506.1000, L100.0100, L500.4050 ####[facility] [address] [place], [address] Lymphocytes/100 WBC (Bld) 24.6 % Normal 19-41 [facility] Comment on above: Performed By: #### L 500.4100, L501.9520, L506.1000, L100.0100, L500.4050 ####[facility] [address] [place], [address] MCH (RBC) [Entitic mass] 31.8 pg Normal 27.0-32.0 [facility] Comment on above: Performed By: #### L 500.4100, L501.9520, L506.1000, L100.0100, L500.4050 ####[facility] [address] [place], [address] MCHC (RBC) [Mass/Vol] 35.9 g/dL Normal 32-36 [facility] Comment on above: Performed By: #### L 500.4100, L501.9520, L506.1000, L100.0100, L500.4050 ####[facility] [address] [place], [address] MCV (RBC) [Entitic vol] 88.5 fL Normal 81-99 [facility] Comment on above: Performed By: #### L 500.4100, L501.9520, L506.1000, L100.0100, L500.4050 ####[facility] [address] [place], [address] Monocytes/100 WBC (Bld) 11.6 % High 0-10 [facility] Comment on above: Performed By: #### L 500.4100, L501.9520, L506.1000, L100.0100, L500.4050 ####[facility] [address] [place], [address] Neutrophils/100 WBC (Bld) 60.6 % Normal 47-70 [facility] Comment on above: Performed By: #### L 500.4100, L501.9520, L506.1000, L100.0100, L500.4050 ####[facility] [address] [place], [address] Nucleated RBC (Bld) [#/Vol] 0 10*3/uL Normal 0-5 [facility] Comment on above: Performed By: #### L 500.4100, L501.9520, L506.1000, L100.0100, L500.4050 ####[facility] [address] [place], [address] Platelet mean volume (Bld) [Entitic vol] 10.2 fL Normal 6.2-12.0 [facility] Comment on above: Performed By: #### L 500.4100, L501.9520, L506.1000, L100.0100, L500.4050 ####[facility] [address] [place], [address] Platelets (Bld) [#/Vol] 335 10*3/uL Normal 150-450 [facility] Comment on above: Performed By: #### L 500.4100, L501.9520, L506.1000, L100.0100, L500.4050 ####[facility] [address] [place], [address] RBC (Bld) [#/Vol] 4.94 10*6/uL Normal 4.2-5.4 [facility] Comment on above: Performed By: #### L 500.4100, L501.9520, L506.1000, L100.0100, L500.4050 ####[facility] [address] [place], [address] RDW SD 50.6 fl High 35.1-43.9 [facility] Comment on above: Performed By: #### L 500.4100, L501.9520, L506.1000, L100.0100, L500.4050 ####[facility] [address] [place], [address] WBC (Bld) [#/Vol] 11.3 10*3/uL High 4.4-11.0 [facility] Comment on above: Performed By: #### L 500.4100, L501.9520, L506.1000, L100.0100, L500.4050 ####[facility] [address] [place], [address] Comprehensive Metabolic Prof [facility] 03-10-2024 Albumin [Mass/Vol] 3.3 g/dL Normal 3.2-5.0 [facility] Comment on above: Performed By: #### L 500.4100, L501.9520, L506.1000, L100.0100, L500.4050 ####[facility] [address] [place], [address] Albumin/Globulin [Mass ratio] 0.9 {ratio} Normal 0.9-2.4 [facility] Comment on above: Performed By: #### L 500.4100, L501.9520, L506.1000, L100.0100, L500.4050 ####[facility] [address] [place], [address] ALK P 84 U/L Normal 45-117 [facility] Comment on above: Performed By: #### L 500.4100, L501.9520, L506.1000, L100.0100, L500.4050 ####[facility] [address] [place], [address] ALT [Catalytic activity/Vol] 31 U/L Normal 13-56 [facility] Comment on above: Performed By: #### L 500.4100, L501.9520, L506.1000, L100.0100, L500.4050 ####[facility] [address] [place], [address] AST [Catalytic activity/Vol] 22 U/L Normal 15-37 [facility] Comment on above: Performed By: #### L 500.4100, L501.9520, L506.1000, L100.0100, L500.4050 ####[facility] [address] [place], [address] Bilirubin [Mass/Vol] 0.70 mg/dL Normal 0.20-1.00 [facility] Comment on above: Result Comment: For patients on eltrombopag therapy, use of Dimension Hallam TBIL is not recommended. Performed By: #### L 500.4100, L501.9520, L506.1000, L100.0100, L500.4050 ####[facility] [address] [place], [address] BUN/CRE 21.0 RATIO High 10-20 [facility] Comment on above: Performed By: #### L 500.4100, L501.9520, L506.1000, L100.0100, L500.4050 ####[facility] [address] [place], [address] CA,Total 9.7 mg/dL Normal 8.5-10.1 [facility] Comment on above: Performed By: #### L 500.4100, L501.9520, L506.1000, L100.0100, L500.4050 ####[facility] [address] [place], [address] Chloride [Moles/Vol] 111 mmol/L High 98-107 [facility] Comment on above: Performed By: #### L 500.4100, L501.9520, L506.1000, L100.0100, L500.4050 ####[facility] [address] [place], [address] CO2 [Moles/Vol] 24.0 mmol/L Normal 21.0-32.0 [facility] Comment on above: Performed By: #### L 500.4100, L501.9520, L506.1000, L100.0100, L500.4050 ####[facility] [address] [place], [address] Creatinine [Mass/Vol] 1.00 mg/dL Normal 0.55-1.02 [facility] Comment on above: Result Comment: The validity of the calculated GFR GFRAA in patients over70 years has not been determined. Clinical correlation isessential. Performed By: #### L 500.4100, L501.9520, L506.1000, L100.0100, L500.4050 ####[facility] [address] [place], [address] EST GFR - AA 69 mL/min Normal >60 [facility] Comment on above: Result Comment: Afri can Belgian GFR Calc Performed By: #### L 500.4100, L501.9520, L506.1000, L100.0100, L500.4050 ####[facility] [address] [place], [address] GAP 7 Normal 5-15 [facility] Comment on above: Performed By: #### L 500.4100, L501.9520, L506.1000, L100.0100, L500.4050 ####[facility] [address] [place], [address] GFR/1.73 sq M.predicted among non-blacks MDRD (S/P/Bld) [Vol rate/Area] 57 mL/min/{1.73_m2} Low >60 [facility] Comment on above: Result Comment: Non- GFR Calc Performed By: #### L 500.4100, L501.9520, L506.1000, L100.0100, L500.4050 ####[facility] [address] [place], [address] Globulin (S) [Mass/Vol] 3.5 g/dL Normal 2.2-4.2 [facility] Comment on above: Performed By: #### L 500.4100, L501.9520, L506.1000, L100.0100, L500.4050 ####[facility] [address] [place], [address] Glucose [Mass/Vol] 148 mg/dL High 74-106 [facility] Comment on above: Result Comment: Fast ing Glucose result greater than or equal to 126 mg/dLsuggests DIABETES MELLITUS per A.D.A. criteria. Performed By: #### L 500.4100, L501.9520, L506.1000, L100.0100, L500.4050 ####[facility] [address] [place], [address] Potassium [Moles/Vol] 3.8 mmol/L Normal 3.5-5.1 [facility] Comment on above: Performed By: #### L 500.4100, L501.9520, L506.1000, L100.0100, L500.4050 ####[facility] [address] [place], [address] Sodium [Moles/Vol] 142 mmol/L Normal 136-145 [facility] Comment on above: Performed By: #### L 500.4100, L501.9520, L506.1000, L100.0100, L500.4050 ####[facility] [address] [place], [address] T PROT 6.8 g/dL Normal 6.4-8.2 [facility] Comment on above: Performed By: #### L 500.4100, L501.9520, L506.1000, L100.0100, L500.4050 ####[facility] [address] [place], [address] Urea nitrogen [Mass/Vol] 21 mg/dL High 7-18 [facility] Comment on above: Performed By: #### L 500.4100, L501.9520, L506.1000, L100.0100, L500.4050 ####[facility] [address] [place], [address] Lipid Profileon 03-10-2024 Cholesterol [Mass/Vol] 227 mg/dL High 200 [facility] Comment on above: Result Comment: <200 mg/dL Desirable 200-240 mg/dL Borderline >240 mg/dL High Risk Performed By: #### L 500.4100, L501.9520, L506.1000, L100.0100, L500.4050 ####[facility] [address] [place], [address] Cholesterol in HDL [Mass/Vol] 43 mg/dL Normal [facility] Comment on above: Result Comment: The drugs N-Acetylcysteine and Metamizole may falselydepress this assay. Reference Range HDL <40 mg/dL Low HDL Cholesterol HDL >or= 60 mg/dL High HDL Cholesterol Performed By: #### L 500.4100, L501.9520, L506.1000, L100.0100, L500.4050 ####[facility] [address] [place], [address] Cholesterol in LDL [Mass/Vol] 138 mg/dL High 0-130 [facility] Comment on above: Performed By: #### L 500.4100, L501.9520, L506.1000, L100.0100, L500.4050 ####[facility] [address] [place], [address] Cholesterol in VLDL [Mass/Vol] 46 mg/dL High 5-40 [facility] Comment on above: Performed By: #### L 500.4100, L501.9520, L506.1000, L100.0100, L500.4050 ####[facility] [address] [place], [address] Triglyceride [Mass/Vol] 230 mg/dL High [facility] Comment on above: Result Comment: The drugs N-Acetylcysteine and Metamizole may falselydepress this assay.Serum Triglycerides Reference Interval Normal <150 mg/dL Borderline high 150 - 199 mg/dL High 200 - 499 mg/dL Very High > or = 500 mg/dL Performed By: #### L 500.4100, L501.9520, L506.1000, L100.0100, L500.4050 ####[facility] [address] [place], [address] Thyroid Stim Hormone (TSH)on 03-10-2024 TSH 0.922 uIU/mL Normal 0.358-3.740 [facility] Comment on above: Performed By: #### L 500.4100, L501.9520, L506.1000, L100.0100, L500.4050 ####[facility] [address] [place], [address] Vitamin D,25 Hydroxyon 03-10 Vitamin D 25-OH 59.3 ng/mL Normal [facility] Comment on above: Result Comment: Luda min D 25(OH) Status Range Deficiency <20 ng/mL (50nmol/L) Insufficiency 20 - 30 ng/mL (50 - 75 nmol/L) Sufficiency 30 - 100 ng/mL (75 - 250 nmol/L) Toxicity >100 ng/mL (>250 nmol/L) Performed By: #### L 500.4100, L501.9520, L506.1000, L100.0100, L500.4050 ####[facility] [address] [place], [address] L/S Spine Min 4 Viewson 02-09 L/S Spine Min 4 Views Normal [facility] Orthopedic Visit Reporton Orthopedic Visit Report Normal [facility] Surgery Visit Reporton 02-22 Surgery Visit Report Normal [facility] Absolute lymphocyte countOrd ered By: Ed Bowman on 09-06-2023 Lymphocytes Auto (Unsp spec) [#/Vol] 1.38 10*3/uL 0.83-4.51 [facility] Basophil percentageOrdered B y: Ed Bowman on 09-06-2023 Basophil percentage Not Reportable [facility] Bilirubin [Mass/Vol] 0.70 mg/dL 0.20-1.00 [facility] Comment on above: For patients on eltr ombopag therapy, use of Dimension Hallam TBIL is not recommended. Chloride [Moles/Vol] 106 mmol/L 98-107 [facility] Glucose [Mass/Vol] 168 mg/dL 74-106 [facility] Comment on above: Fasting Glucose resu lt greater than or equal to 126 mg/dL suggests DIABETES MELLITUS per A.D.A. criteria. Hemoglobin (Bld) [Mass/Vol] 15.3 g/dL 12.0-15.0 [facility] Neutrophils (Bld) [#/Vol] 9.9 10*3/uL 2.0-7.7 [facility] Potassium [Moles/Vol] 3.9 mmol/L 3.5-5.1 [facility] Protein [Mass/Vol] 7.7 g/dL 6.4-8.2 [facility] Sodium [Moles/Vol] 140 mmol/L 136-145 [facility] WBC (Bld) [#/Vol] 11.5 10*3/uL 4.4-11.0 [facility] Blood band neutrophil count as percentage of total leukocytesOrdered By: Ed Bowman on 09-06-2023 Band form neutrophils/100 WBC (Bld) 3 % 0-5 [facility] Blood lymphocytes/100 leukoc ytesOrdered By: Ed Bowman on 09-06-2023 Lymphocytes/100 WBC (Bld) 12 % 19-41 [facility] Blood monocytes/100 leukocyt esOrdered By: Ed Bowman on 09-06-2023 Monocytes/100 WBC (Bld) 1 % 0-10 [facility] Blood platelet adequacy dete ction by light microscopyOrdered By: Ed Bowman on 09-06-2023 Platelets LM Ql (Bld) ADEQUATE ADEQ [facility] Blood segmented neutrophils/ 100 leukocytesOrdered By: Ed Bowman on 09-06-2023 Segmented neutrophils/100 WBC (Bld) 83 % 47-70 [facility] Determination of erythrocyte mean corpuscular volume (MCV)Ordered By: Ed Bowman on 09-06-2023 MCV (RBC) [Entitic vol] 90.9 fL 81-99 [facility] Erythrocyte distribution wid th ratioOrdered By: Ed Bowman on 09-06-2023 Erythrocyte distribution width (RBC) [Ratio] 14.2 % 11.6-14.6 [facility] Erythrocyte distribution wid th standard deviationOrdered By: Ed Bowman on 09-06-2023 Erythrocyte distribution width (RBC) [Entitic vol] 47.3 fL 35.1-43.9 [facility] Hematocrit Auto (Bld) [Volum e fraction]Ordered By: Ed Bowman on 09-06-2023 Hematocrit (Bld) [Volume fraction] 47.9 % 37-47 [facility] Laboratory - Chemistry and C hemistry - challengeOrdered By: Ed Bowman 09-06-2023 Albumin/Globulin [Mass ratio] 1.1 {ratio} 0.9-2.4 [facility] ALP [Catalytic activity/Vol] 106 U/L 45-117 [facility] ALT [Catalytic activity/Vol] 22 U/L 13-56 [facility] CO2 [Moles/Vol] 26.0 mmol/L 21.0-32.0 [facility] Globulin (S) [Mass/Vol] 3.7 g/dL 2.2-4.2 [facility] Urea nitrogen/Creatinine [Mass ratio] 31.0 mg/mg 10-20 [facility] Laboratory - Hematology and Cell countsOrdered By: Ed Bowman 09-06-2023 MCH (RBC) [Entitic mass] 29.0 pg 27.0-32.0 [facility] MCHC (RBC) [Mass/Vol] 31.9 g/dL 32-36 [facility] Myelocytes/100 WBC (Bld) 1 % 0-0 [facility] Platelet mean volume (Bld) [Entitic vol] 9.0 fL 6.2-12.0 [facility] Platelets (Bld) [#/Vol] 406 10*3/uL 150-450 [facility] No Panel InformationOrdered By: Ed Bowman on 09-06-2023 Estimated GFR (MDRD) Amer 53 mL/min >60 [facility] Comment on above: GFR Calc Estimated GFR (MDRD) Non-Af Amer 44 mL/min >60 [facility] Comment on above: Non- GFR Calc Vitamin D 25-Hydroxy 35.4 ng/mL [facility] Comment on above: Vitamin D 25(OH) Sta tus Range Deficiency <20 ng/mL (50nmol/L) Insufficiency 20 - 30 ng/mL (50 - 75 nmol/L) Sufficiency 30 - 100 ng/mL (75 - 250 nmol/L) Toxicity >100 ng/mL (>250 nmol/L) RBC Auto (Bld) [#/Vol]Ordere d By: Ed Bowman on 09-06-2023 RBC (Bld) [#/Vol] 5.27 10*6/uL 4.2-5.4 [facility] RBC morphologyOrdered By: Mihir Bowman on 09-06-2023 RBC morphology finding Nom (Bld) NORM C+C NORMAL NORM C&C [facility] Review by pathologistOrdered By: Ed Bowman on 09-06-2023 Pathologist review Froilan (Unsp spec) [Interp] Reviewed [facility] Comment on above: Previous reported re sult: November foll Edited by: RGOCHON on 09/07/23:1319Neutrophilic leukocytosis with left shift.Clinical correlation necessary.Beto Green M.D. 09/07/23 AMENDED REPORT 09/07/23 1319 PATH REV previously reported as: November foll Serum or plasma calcium raine urement (mass/volume)Ordered By: Ed Bowman on 09-06-2023 Calcium [Mass/Vol] 9.3 mg/dL 8.5-10.1 [facility] Serum or plasma creatinine m easurement (mass/volume)Ordered By: Ed Bowman on 09-06-2023 Creatinine [Mass/Vol] 1.26 mg/dL 0.55-1.02 [facility] Comment on above: The validity of the calculated GFR & GFRAA in patients over 70 years has not been determined. Clinical correlation is essential. Serum or plasma thyroid stim ulating hormone (TSH) measurement (units/volume)Ordered By: Ed Bowman on 09-06-2023 TSH Qn 0.45 uIU/mL 0.358-3.74 [facility] Serum or plasma urea nitroge n measurement (mass/volume)Ordered By: Ed Bowman on 09-06-2023 Urea nitrogen [Mass/Vol] 39 mg/dL 7-18 [facility] Thin prep Papanicolaou smear with manual screeningOrdered By: Ed Bowman on 09-06-2023 Thin prep Papanicolaou smear with manual screening 4.0 g/dL 3.2-5.0 [facility] Thin prep Papanicolaou smear with manual screening 18 U/L 15-37 [facility] Thin prep Papanicolaou smear with manual screening 8 5-15 [facility] Total cell countOrdered By: Ed Bowman on 09-06-2023 Cells counted Molgen (Bld/Tiss) [#] 100 MANUAL DIFF [facility] Absolute lymphocyte countOrd ered By: Ed Bowman on 03-08-2023 Lymphocytes Auto (Unsp spec) [#/Vol] 2.55 10*3/uL 0.83-4.51 [facility] Basophil percentageOrdered B y: Ed Bowman on 03-08-2023 Basophils/100 WBC (Bld) 0.6 % 0-1 [facility] Bilirubin [Mass/Vol] 0.30 mg/dL 0.20-1.00 [facility] Comment on above: For patients on eltr ombopag therapy, use of Dimension Hallam TBIL is not recommended. Chloride [Moles/Vol] 107 mmol/L 98-107 [facility] Eosinophils/100 WBC (Bld) 1.0 % 0-5 [facility] Glucose [Mass/Vol] 123 mg/dL 74-106 [facility] Comment on above: Fasting Glucose resu lt from 100 to 125 mg/dL suggests IMPAIRED HOMEOSTASIS per A.D.A. criteria. Neutrophils (Bld) [#/Vol] 6.4 10*3/uL 2.0-7.7 [facility] Neutrophils/100 WBC (Bld) 62.7 % 47-70 [facility] Potassium [Moles/Vol] 4.7 mmol/L 3.5-5.1 [facility] Protein [Mass/Vol] 7.5 g/dL 6.4-8.2 [facility] Sodium [Moles/Vol] 141 mmol/L 136-145 [facility] WBC (Bld) [#/Vol] 10.2 10*3/uL 4.4-11.0 [facility] Blood erythrocytes count (nu mber/volume)Ordered By: Ed Bowman on 03-08-2023 RBC (Bld) [#/Vol] 4.85 10*6/uL 4.2-5.4 [facility] Blood hemoglobin measurement (mass/volume)Ordered By: Ed Bowman on 03-08-2023 Hemoglobin (Bld) [Mass/Vol] 14.6 g/dL 12.0-15.0 [facility] Blood lymphocytes/100 leukoc ytesOrdered By: Ed Bowman on 03-08-2023 Lymphocytes/100 WBC (Bld) 24.9 % 19-41 [facility] Blood monocytes/100 leukocyt esOrdered By: Ed Bowman on 03-08-2023 Monocytes/100 WBC (Bld) 9.6 % 0-10 [facility] Blood platelet mean volumeOr dered By: Ed Bowman on 03-08-2023 Platelet mean volume (Bld) [Entitic vol] 9.3 fL 6.2-12.0 [facility] Determination of erythrocyte mean corpuscular volume (MCV)Ordered By: Ed Bowman on 03-08-2023 MCV (RBC) [Entitic vol] 94.2 fL 81-99 [facility] Hematocrit Auto (Bld) [Volum e fraction]Ordered By: Ed Bowman on 03-08-2023 Hematocrit (Bld) [Volume fraction] 45.7 % 37-47 [facility] Laboratory - Chemistry and C hemistry - challengeOrdered By: Ed Bowman on 03-08-2023 ALP [Catalytic activity/Vol] 103 U/L 45-117 [facility] ALT [Catalytic activity/Vol] 25 U/L 13-56 [facility] CO2 [Moles/Vol] 29.0 mmol/L 21.0-32.0 [facility] Globulin (S) [Mass/Vol] 4.1 g/dL 2.2-4.2 [facility] Urea nitrogen/Creatinine [Mass ratio] 22.4 mg/mg 10-20 [facility] Laboratory - Hematology and Cell countsOrdered By: Ed Bowman on 03-08-2023 Erythrocyte distribution width (RBC) [Entitic vol] 48.7 fL 35.1-43.9 [facility] Erythrocyte distribution width (RBC) [Ratio] 14.0 % 11.6-14.6 [facility] Immature granulocytes/100 WBC (Bld) 1.200 % 0.0-0.9 [facility] Comment on above: IG% - Immature Granu locytes (promyelocytes, myelocytes and metamyelocytes) > 1% indicates that a LEFT SHIFT is Present. MCH (RBC) [Entitic mass] 30.1 pg 27.0-32.0 [facility] Nucleated RBC/100 WBC (Bld) [Ratio] 0 % 0-5 [facility] MCHC Auto (RBC) [Mass/Vol]Or dered By: Ed Bowman on 03-08-2023 MCHC (RBC) [Mass/Vol] 31.9 g/dL 32-36 [facility] No Panel InformationOrdered By: Ed Bowman on 03-08-2023 Estimated GFR (MDRD) Amer 64 mL/min >60 [facility] Comment on above: GFR Calc Estimated GFR (MDRD) Non-Af Amer 53 mL/min >60 [facility] Comment on above: Non- GFR Calc Thyroid Stimulating Hormone (TSH) 1.58 uIU/mL 0.358-3.74 [facility] Vitamin D 25-Hydroxy 40.6 ng/mL [facility] Comment on above: Vitamin D 25(OH) Sta tus Range Deficiency <20 ng/mL (50nmol/L) Insufficiency 20 - 30 ng/mL (50 - 75 nmol/L) Sufficiency 30 - 100 ng/mL (75 - 250 nmol/L) Toxicity >100 ng/mL (>250 nmol/L) Platelets bldOrdered By: Ed Bowman on 03-08-2023 Platelets (Bld) [#/Vol] 322 10*3/uL 150-450 [facility] Serum or plasma albumin raine urement (mass/volume)Ordered By: Ed Bowman on 03-08-2023 Albumin [Mass/Vol] 3.4 g/dL 3.2-5.0 [facility] Serum or plasma albumin/glob ulin mass ratioOrdered By: Ed Bowman on 03-08-2023 Albumin/Globulin [Mass ratio] 0.8 {ratio} 0.9-2.4 [facility] Serum or plasma calcium raine urement (mass/volume)Ordered By: Ed Bowman on 03-08-2023 Calcium [Mass/Vol] 9.4 mg/dL 8.5-10.1 [facility] Serum or plasma creatinine m easurement (mass/volume)Ordered By: Ed Bowman on 03-08-2023 Creatinine [Mass/Vol] 1.07 mg/dL 0.55-1.02 [facility] Comment on above: The validity of the calculated GFR & GFRAA in patients over 70 years has not been determined. Clinical correlation is essential. Serum or plasma urea nitroge n measurement (mass/volume)Ordered By: Ed Bowman on 03-08-2023 Urea nitrogen [Mass/Vol] 24 mg/dL 7-18 [facility] Thin prep Papanicolaou smear with manual screeningOrdered By: Ed Bowman on 03-08-2023 Thin prep Papanicolaou smear with manual screening 16 U/L 15-37 [facility] Thin prep Papanicolaou smear with manual screening 5 5-15 [facility] No Panel InformationOrdered By: Kale Wallace on 01-28-2023 Miscellaneous Test See comment [facility] Comment on above: TEST RESULTS LIMITSD rug [...] developed and its performance characteristics determined by [employer]. It has not been cleared or approved [...] Confirmation threshold: 1.0 ng/mL TESTING PERFORMED AT [employer]. ORIGINAL REPORT ON FILE IN LAB CONTAINS ADDITIONAL TEST SITE INFORMATION. COVID-19 virus antigen assay Ordered By: Dr. Bowman on 09-01-2022 SARS-CoV-2 (COVID-19) Ag IA.rapid Ql (Resp) Not detected Not Detect [facility] Comment on above: Normal Reference Ran [...] Influenza Types A,B Direct FA (TEETEE) [facility] RSV Ag EIAOrdered By: Dr. Danis marion on 09-01-2022 RSV Ag Immune stain Ql (Tiss) [facility] Absolute lymphocyte countOrd ered By: Ed Bowman on 08-31-2022 Lymphocytes Auto (Unsp spec) [#/Vol] 3.62 10*3/uL 0.83-4.51 [facility] Basophil percentageOrdered B y: Ed Bowman on 08-31-2022 Basophils/100 WBC (Bld) 0.5 % 0-1 [facility] Bilirubin [Mass/Vol] 0.50 mg/dL 0.20-1.00 [facility] Comment on above: For patients on eltr ombopag therapy, use of Dimension Hallam TBIL is not recommended. Chloride [Moles/Vol] 105 mmol/L 98-107 [facility] Eosinophils/100 WBC (Bld) 0.5 % 0-5 [facility] Glucose [Mass/Vol] 51 mg/dL 74-106 [facility] Neutrophils (Bld) [#/Vol] 7.0 10*3/uL 2.0-7.7 [facility] Neutrophils/100 WBC (Bld) 58.4 % 47-70 [facility] Potassium [Moles/Vol] 3.5 mmol/L 3.5-5.1 [facility] Protein [Mass/Vol] 8.1 g/dL 6.4-8.2 [facility] Sodium [Moles/Vol] 143 mmol/L 136-145 [facility] WBC (Bld) [#/Vol] 11.9 10*3/uL 4.4-11.0 [facility] Blood erythrocytes count (nu mber/volume)Ordered By: Ed Bowman on 08-31-2022 RBC (Bld) [#/Vol] 5.34 10*6/uL 4.2-5.4 [facility] Blood hemoglobin measurement (mass/volume)Ordered By: Ed Bowman on 08-31-2022 Hemoglobin (Bld) [Mass/Vol] 16.2 g/dL 12.0-15.0 [facility] Blood lymphocytes/100 leukoc ytesOrdered By: Ed oBwman on 08-31-2022 Lymphocytes/100 WBC (Bld) 30.4 % 19-41 [facility] Blood monocytes/100 leukocyt esOrdered By: Ed Bowman on 08-31-2022 Monocytes/100 WBC (Bld) 9.3 % 0-10 [facility] Blood platelet mean volumeOr dered By: Ed Bowman on 08-31-2022 Platelet mean volume (Bld) [Entitic vol] 9.3 fL 6.2-12.0 [facility] Determination of erythrocyte mean corpuscular volume (MCV)Ordered By: Ed Bowman on 08-31-2022 MCV (RBC) [Entitic vol] 91.9 fL 81-99 [facility] Hematocrit Auto (Bld) [Volum e fraction]Ordered By: Ed Bowman on 08-31-2022 Hematocrit (Bld) [Volume fraction] 49.1 % 37-47 [facility] Laboratory - Chemistry and C hemistry - challengeOrdered By: Ed Bowman on 08-31-2022 ALP [Catalytic activity/Vol] 100 U/L 45-117 [facility] ALT [Catalytic activity/Vol] 26 U/L 13-56 [facility] CO2 [Moles/Vol] 30.0 mmol/L 21.0-32.0 [facility] Globulin (S) [Mass/Vol] 4.2 g/dL 2.2-4.2 [facility] Urea nitrogen/Creatinine [Mass ratio] 18.2 mg/mg 10-20 [facility] Laboratory - Hematology and Cell countsOrdered By: Ed Bowman on 08-31-2022 Erythrocyte distribution width (RBC) [Entitic vol] 46.0 fL 35.1-43.9 [facility] Erythrocyte distribution width (RBC) [Ratio] 13.6 % 11.6-14.6 [facility] Immature granulocytes/100 WBC (Bld) 0.900 % 0.0-0.9 [facility] Comment on above: IG% - Immature Granu locytes (promyelocytes, myelocytes and metamyelocytes) > 1% indicates that a LEFT SHIFT is Present. MCH (RBC) [Entitic mass] 30.3 pg 27.0-32.0 [facility] Nucleated RBC/100 WBC (Bld) [Ratio] 0 % 0-5 [facility] MCHC Auto (RBC) [Mass/Vol]Or dered By: Ed Bowman on 08-31-2022 MCHC (RBC) [Mass/Vol] 33.0 g/dL 32-36 [facility] No Panel InformationOrdered By: Ed Bowman on 08-31-2022 Estimated GFR (MDRD) Amer 51 mL/min >60 [facility] Comment on above: GFR Calc Estimated GFR (MDRD) Non-Af Amer 42 mL/min >60 [facility] Comment on above: Non- GFR Calc Thyroid Stimulating Hormone (TSH) 1.38 uIU/mL 0.358-3.74 [facility] Vitamin D 25-Hydroxy 29.8 ng/mL [facility] Comment on above: Vitamin D 25(OH) Sta tus Range Deficiency <20 ng/mL (50nmol/L) Insufficiency 20 - 30 ng/mL (50 - 75 nmol/L) Sufficiency 30 - 100 ng/mL (75 - 250 nmol/L) Toxicity >100 ng/mL (>250 nmol/L) Platelets bldOrdered By: Ed Bowman on 08-31-2022 Platelets (Bld) [#/Vol] 370 10*3/uL 150-450 [facility] Serum or plasma albumin raine urement (mass/volume)Ordered By: Ed Bowman on 08-31-2022 Albumin [Mass/Vol] 3.9 g/dL 3.2-5.0 [facility] Serum or plasma albumin/glob ulin mass ratioOrdered By: Ed Colby on 08-31-2022 Albumin/Globulin [Mass ratio] 0.9 {ratio} 0.9-2.4 [facility] Serum or plasma calcium raine urement (mass/volume)Ordered By: Ed Bowman on 08-31-2022 Calcium [Mass/Vol] 9.7 mg/dL 8.5-10.1 [facility] Serum or plasma creatinine m easurement (mass/volume)Ordered By: Ed Bowman on 08-31-2022 Creatinine [Mass/Vol] 1.32 mg/dL 0.55-1.02 [facility] Comment on above: The validity of the calculated GFR & GFRAA in patients over 70 years has not been determined. Clinical correlation is essential. Serum or plasma urea nitroge n measurement (mass/volume)Ordered By: Ed Bowman on 08-31-2022 Urea nitrogen [Mass/Vol] 24 mg/dL 7-18 [facility] Thin prep Papanicolaou smear with manual screeningOrdered By: Ed Bowman on 08-31-2022 Thin prep Papanicolaou smear with manual screening 22 U/L 15-37 [facility] Thin prep Papanicolaou smear with manual screening 8 5-15 [facility] Absolute lymphocyte counton 03-02-2022 Lymphocytes Auto (Unsp spec) [#/Vol] 3.38 10*3/uL 0.83-4.51 [facility] Work Phone: Basophil percentageon 2021 Basophils/100 WBC (Bld) 0.4 % 0-1 [facility] Work Phone: Bilirubin [Mass/Vol] 0.20 mg/dL 0.20-1.00 [facility] Work Phone: Comment on above: For patients on eltr ombopag therapy, use of Dimension Hallam TBIL is not recommended. Chloride [Moles/Vol] 106 mmol/L 98-107 [facility] Work Phone: Eosinophils/100 WBC (Bld) 1.2 % 0-5 [facility] Work Phone: [phone] Glucose [Mass/Vol] 99 mg/dL 74-106 [facility] Work Phone: Neutrophils (Bld) [#/Vol] 6.4 10*3/uL 2.0-7.7 [facility] Work Phone: [phone] Neutrophils/100 WBC (Bld) 58.9 % 47-70 [facility] Work Phone: [phone] Potassium [Moles/Vol] 4.2 mmol/L 3.5-5.1 [facility] Work Phone: Protein [Mass/Vol] 7.3 g/dL 6.4-8.2 [facility] Work Phone: Sodium [Moles/Vol] 142 mmol/L 136-145 [facility] Work Phone: [phone] WBC (Bld) [#/Vol] 10.9 10*3/uL 4.4-11.0 [facility] Work Phone: Blood erythrocytes count (nu mber/volume)on 03-02-2022 RBC (Bld) [#/Vol] 4.84 10*6/uL 4.2-5.4 [facility] Work Phone: Blood hemoglobin measurement (mass/volume)on 03-02-2022 Hemoglobin (Bld) [Mass/Vol] 14.5 g/dL 12.0-15.0 [facility] Work Phone: [phone] Blood lymphocytes/100 leukoc yteson 03-02-2022 Lymphocytes/100 WBC (Bld) 31.1 % 19-41 [facility] Work Phone: Blood monocytes/100 leukocyt eson 03-02-2022 Monocytes/100 WBC (Bld) 7.9 % 0-10 [facility] Work Phone: Blood platelet mean volumeon 03-02-2022 Platelet mean volume (Bld) [Entitic vol] 9.6 fL 6.2-12.0 [facility] Work Phone: Determination of erythrocyte mean corpuscular volume (MCV)on 03-02-2022 MCV (RBC) [Entitic vol] 90.5 fL 81-99 [facility] Work Phone: Hematocrit Auto (Bld) [Volum e fraction]on 03-02-2022 Hematocrit (Bld) [Volume fraction] 43.8 % 37-47 [facility] Work Phone: Laboratory - Chemistry and C hemistry - challengeon 03-02-2022 ALP [Catalytic activity/Vol] 103 U/L 45-117 [facility] Work Phone: ALT [Catalytic activity/Vol] 22 U/L 13-56 [facility] Work Phone: CO2 [Moles/Vol] 30.0 mmol/L 21.0-32.0 [facility] Work Phone: Globulin (S) [Mass/Vol] 3.8 g/dL 2.2-4.2 [facility] Work Phone: Urea nitrogen/Creatinine [Mass ratio] 24.5 mg/mg 10-20 [facility] Work Phone: Laboratory - Hematology and Cell countson 03-02-2022 Erythrocyte distribution width (RBC) [Entitic vol] 45.1 fL 35.1-43.9 [facility] Work Phone: Erythrocyte distribution width (RBC) [Ratio] 13.7 % 11.6-14.6 [facility] Work Phone: [phone] Immature granulocytes/100 WBC (Bld) 0.500 % 0.0-0.9 [facility] Work Phone: Comment on above: IG% - Immature Granu locytes (promyelocytes, myelocytes and metamyelocytes) > 1% indicates that a LEFT SHIFT is Present. MCH (RBC) [Entitic mass] 30.0 pg 27.0-32.0 [facility] Work Phone: Nucleated RBC/100 WBC (Bld) [Ratio] 0 % 0-5 [facility] Work Phone: MCHC Auto (RBC) [Mass/Vol]on 03-02-2022 MCHC (RBC) [Mass/Vol] 33.1 g/dL 32-36 [facility] Work Phone: No Panel Informationon 03-02 Estimated GFR (MDRD) Amer 65 mL/min >60 [facility] Work Phone: Comment on above: GFR Calc Estimated GFR (MDRD) Non-Af Amer 54 mL/min >60 [facility] Work Phone: Comment on above: Non- GFR Calc Thyroid Stimulating Hormone (TSH) 1.20 uIU/mL 0.358-3.74 [facility] Work Phone: Vitamin D 25-Hydroxy 18.7 ng/mL [facility] Work Phone: Comment on above: Vitamin D 25(OH) Sta tus Range Deficiency <20 ng/mL (50nmol/L) Insufficiency 20 - 30 ng/mL (50 - 75 nmol/L) Sufficiency 30 - 100 ng/mL (75 - 250 nmol/L) Toxicity >100 ng/mL (>250 nmol/L) Platelets bldon 03-02-2022 Platelets (Bld) [#/Vol] 287 10*3/uL 150-450 [facility] Work Phone: Serum or plasma albumin raine urement (mass/volume)on 03-02-2022 Albumin [Mass/Vol] 3.5 g/dL 3.2-5.0 [facility] Work Phone: Serum or plasma albumin/glob ulin mass ratioon 03-02-2022 Albumin/Globulin [Mass ratio] 0.9 {ratio} 0.9-2.4 [facility] Work Phone: Serum or plasma calcium raine urement (mass/volume)on 03-02-2022 Calcium [Mass/Vol] 8.6 mg/dL 8.5-10.1 [facility] Work Phone: Serum or plasma creatinine m easurement (mass/volume)on 03-02-2022 Creatinine [Mass/Vol] 1.06 mg/dL 0.55-1.02 [facility] Work Phone: Comment on above: The validity of the calculated GFR & GFRAA in patients over 70 years has not been determined. Clinical correlation is essential. Serum or plasma urea nitroge n measurement (mass/volume)on 03-02-2022 Urea nitrogen [Mass/Vol] 26 mg/dL 7-18 [facility] Work Phone: Thin prep Papanicolaou smear with manual screeningon 03-02-2022 Thin prep Papanicolaou smear with manual screening 19 U/L 15-37 [facility] Work Phone: Thin prep Papanicolaou smear with manual screening 6 5-15 [facility] Work Phone: Absolute lymphocyte counton 11-12-2021 Lymphocytes Auto (Unsp spec) [#/Vol] 2.27 10*3/uL 0.83-4.51 [facility] Work Phone: Basophil percentageon 2021 Basophils/100 WBC (Bld) 0.5 % 0-1 [facility] Work Phone: Bilirubin [Mass/Vol] 0.40 mg/dL 0.20-1.00 [facility] Work Phone: Comment on above: For patients on eltr ombopag therapy, use of Dimension Hallam TBIL is not recommended. Chloride [Moles/Vol] 109 mmol/L 98-107 [facility] Work Phone: Eosinophils/100 WBC (Bld) 1.6 % 0-5 [facility] Work Phone: [phone] Glucose [Mass/Vol] 107 mg/dL 74-106 [facility] Work Phone: [phone] Comment on above: Fasting Glucose resu lt from 100 to 125 mg/dL suggests IMPAIRED HOMEOSTASIS per A.D.A. criteria. Neutrophils (Bld) [#/Vol] 6.9 10*3/uL 2.0-7.7 [facility] Work Phone: Neutrophils/100 WBC (Bld) 66.6 % 47-70 [facility] Work Phone: Potassium [Moles/Vol] 4.7 mmol/L 3.5-5.1 [facility] Work Phone: Protein [Mass/Vol] 7.7 g/dL 6.4-8.2 [facility] Work Phone: Sodium [Moles/Vol] 142 mmol/L 136-145 [facility] Work Phone: WBC (Bld) [#/Vol] 10.4 10*3/uL 4.4-11.0 [facility]: Blood erythrocytes count (nu mber/volume)on 11-12-2021 RBC (Bld) [#/Vol] 5.07 10*6/uL 4.2-5.4 [facility] Work Phone: Blood hemoglobin measurement (mass/volume)on 11-12-2021 Hemoglobin (Bld) [Mass/Vol] 14.9 g/dL 12.0-15.0 [facility] Work Phone: Blood lymphocytes/100 leukoc yteson 11-12-2021 Lymphocytes/100 WBC (Bld) 21.8 % 19-41 [facility] Work Phone: Blood monocytes/100 leukocyt eson 11-12-2021 Monocytes/100 WBC (Bld) 8.5 % 0-10 [facility] Work Phone: Blood platelet mean volumeon 11-12-2021 Platelet mean volume (Bld) [Entitic vol] 9.7 fL 6.2-12.0 [facility] Work Phone: Determination of erythrocyte mean corpuscular volume (MCV)on 11-12-2021 MCV (RBC) [Entitic vol] 89.3 fL 81-99 [facility] Work Phone: Hematocrit Auto (Bld) [Volum e fraction]on 11-12-2021 Hematocrit (Bld) [Volume fraction] 45.3 % 37-47 [facility] Work Phone: Laboratory - Chemistry and C hemistry - challengeon 11-12-2021 ALP [Catalytic activity/Vol] 110 U/L 45-117 [facility] Work Phone: ALT [Catalytic activity/Vol] 26 U/L 13-56 [facility] Work Phone: CO2 [Moles/Vol] 27.0 mmol/L 21.0-32.0 [facility] Work Phone: Globulin (S) [Mass/Vol] 4.4 g/dL 2.2-4.2 [facility] Work Phone: Urea nitrogen/Creatinine [Mass ratio] 16.9 mg/mg 10-20 [facility] Work Phone: Laboratory - Hematology and Cell countson 11-12-2021 Erythrocyte distribution width (RBC) [Entitic vol] 45.0 fL 35.1-43.9 [facility] Work Phone: Erythrocyte distribution width (RBC) [Ratio] 13.8 % 11.6-14.6 [facility] Work Phone: Immature granulocytes/100 WBC (Bld) 1.000 % 0.0-0.9 [facility] Work Phone: Comment on above: IG% - Immature Granu locytes (promyelocytes, myelocytes and metamyelocytes) > 1% indicates that a LEFT SHIFT is Present. MCH (RBC) [Entitic mass] 29.4 pg 27.0-32.0 [facility] Work Phone: Nucleated RBC/100 WBC (Bld) [Ratio] 0 % 0-5 [facility] Work Phone: MCHC Auto (RBC) [Mass/Vol]on 11-12-2021 MCHC (RBC) [Mass/Vol] 32.9 g/dL 32-36 [facility] Work Phone: No Panel Informationon 11-12 Estimated GFR (MDRD) Amer 74 mL/min >60 [facility] Work Phone: Comment on above: GFR Calc Estimated GFR (MDRD) Non-Af Amer 61 mL/min >60 [facility] Work Phone: Comment on above: Non- GFR Calc Thyroid Stimulating Hormone (TSH) 1.05 uIU/mL 0.358-3.74 [facility] Work Phone: Vitamin D 25-Hydroxy 32.0 ng/mL [facility] Work Phone: Comment on above: Vitamin D 25(OH) Sta tus Range Deficiency <20 ng/mL (50nmol/L) Insufficiency 20 - 30 ng/mL (50 - 75 nmol/L) Sufficiency 30 - 100 ng/mL (75 - 250 nmol/L) Toxicity >100 ng/mL (>250 nmol/L) Platelets bldon 11-12-2021 Platelets (Bld) [#/Vol] 322 10*3/uL 150-450 [facility] Work Phone: Serum or plasma albumin raine urement (mass/volume)on 11-12-2021 Albumin [Mass/Vol] 3.3 g/dL 3.2-5.0 [facility] Work Phone: Serum or plasma albumin/glob ulin mass ratioon 11-12-2021 Albumin/Globulin [Mass ratio] 0.8 {ratio} 0.9-2.4 [facility] Work Phone: Serum or plasma calcium raine urement (mass/volume)on 11-12-2021 Calcium [Mass/Vol] 9.1 mg/dL 8.5-10.1 [facility] Work Phone: Serum or plasma creatinine m easurement (mass/volume)on 11-12-2021 Creatinine [Mass/Vol] 0.95 mg/dL 0.55-1.02 [facility] Work Phone: Comment on above: The validity of the calculated GFR & GFRAA in patients over 70 years has not been determined. Clinical correlation is essential. Serum or plasma urea nitroge n measurement (mass/volume)on 11-12-2021 Urea nitrogen [Mass/Vol] 16 mg/dL 7-18 [facility] Work Phone: Thin prep Papanicolaou smear with manual screeningon 11-12-2021 Thin prep Papanicolaou smear with manual screening 23 U/L 15-37 [facility] Work Phone: Thin prep Papanicolaou smear with manual screening 6 5-15 [facility] Work Phone: Laboratory - Microbiology an d Antimicrobial susceptibilityon 09-02-2021 SARS-CoV-2 (COVID-19) RNA BARAK+probe Ql (Unsp spec) Not detected Not Detect [facility] Work Phone: Comment on above: Normal [...] Influenza Types A,B Direct FA (TEETEE) [facility] Work Phone: Absolute lymphocyte counton 08-11-2021 Lymphocytes Auto (Unsp spec) [#/Vol] 3.13 10*3/uL 0.83-4.51 [facility] Work Phone: [phone] Basophil percentageon 2021 Basophils/100 WBC (Bld) 0.7 % 0-1 [facility] Work Phone: Bilirubin [Mass/Vol] 0.50 mg/dL 0.20-1.00 [facility] Work Phone: Comment on above: For patients on eltr ombopag therapy, use of Dimension Hallam TBIL is not recommended. Chloride [Moles/Vol] 109 mmol/L 98-107 [facility] Work Phone: Eosinophils/100 WBC (Bld) 1.2 % 0-5 [facility] Work Phone: Glucose [Mass/Vol] 105 mg/dL 74-106 [facility] Work Phone: Comment on above: Fasting Glucose resu lt from 100 to 125 mg/dL suggests IMPAIRED HOMEOSTASIS per A.D.A. criteria. Neutrophils (Bld) [#/Vol] 6.8 10*3/uL 2.0-7.7 [facility] Work Phone: Neutrophils/100 WBC (Bld) 60.6 % 47-70 [facility] Work Phone: Potassium [Moles/Vol] 4.4 mmol/L 3.5-5.[address] [facility] [facility] Work Phone: Protein [Mass/Vol] 8.2 g/dL 6.4-8.2 [facility] Work Phone: [phone] Sodium [Moles/Vol] 140 mmol/L 136-145 [facility] Work Phone: WBC (Bld) [#/Vol] 11.3 10*3/uL 4.4-11.0 [facility] Work Phone: Blood erythrocytes count (nu mber/volume)on 08-11-2021 RBC (Bld) [#/Vol] 5.16 10*6/uL 4.2-5.4 [facility] Work Phone: Blood hemoglobin measurement (mass/volume)on 08-11-2021 Hemoglobin (Bld) [Mass/Vol] 15.0 g/dL 12.0-15.0 [facility] Work Phone: Blood lymphocytes/100 leukoc yteson 08-11-2021 Lymphocytes/100 WBC (Bld) 27.7 % 19-41 [facility] Work Phone: Blood monocytes/100 leukocyt eson 08-11-2021 Monocytes/100 WBC (Bld) 9.0 % 0-10 [facility] Work Phone: Blood platelet mean volumeon 08-11-2021 Platelet mean volume (Bld) [Entitic vol] 9.0 fL 6.2-12.0 [facility] Work Phone: Determination of erythrocyte mean corpuscular volume (MCV)on 08-11-2021 MCV (RBC) [Entitic vol] 90.5 fL 81-99 [facility] Work Phone: Hematocrit Auto (Bld) [Volum e fraction]on 08-11-2021 Hematocrit (Bld) [Volume fraction] 46.7 % 37-47 [facility] Work Phone: Laboratory - Chemistry and C hemistry - challengeon 08-11-2021 ALP [Catalytic activity/Vol] 113 U/L 45-117 [facility] Work Phone: ALT [Catalytic activity/Vol] 26 U/L 13-56 [facility] Work Phone: CO2 [Moles/Vol] 28.0 mmol/L 21.0-32.0 [facility] Work Phone: Globulin (S) [Mass/Vol] 4.6 g/dL 2.2-4.2 [facility] Work Phone: Urea nitrogen/Creatinine [Mass ratio] 17.9 mg/mg 10-20 [facility] Work Phone: Laboratory - Hematology and Cell countson 08-11-2021 Erythrocyte distribution width (RBC) [Entitic vol] 45.3 fL 35.1-43.9 [facility] Work Phone: Erythrocyte distribution width (RBC) [Ratio] 13.5 % 11.6-14.6 [facility] Work Phone: Immature granulocytes/100 WBC (Bld) 0.800 % 0.0-0.9 [facility] Work Phone: Comment on above: IG% - Immature Granu locytes (promyelocytes, myelocytes and metamyelocytes) > 1% indicates that a LEFT SHIFT is Present. MCH (RBC) [Entitic mass] 29.1 pg 27.0-32.0 [facility] Work Phone: Nucleated RBC/100 WBC (Bld) [Ratio] 0 % 0-5 [facility] Work Phone: MCHC Auto (RBC) [Mass/Vol]on 08-11-2021 MCHC (RBC) [Mass/Vol] 32.1 g/dL 32-36 [facility] Work Phone: No Panel Informationon 08-11 Estimated GFR (MDRD) Amer 65 mL/min >60 [facility] Work Phone: Comment on above: GFR Calc Estimated GFR (MDRD) Non-Af Amer 54 mL/min >60 [facility] Work Phone: Comment on above: Non- GFR Calc Thyroid Stimulating Hormone (TSH) 2.21 uIU/mL 0.358-3.74 [facility] Work Phone: Vitamin D 25-Hydroxy 29.6 ng/mL [facility] Work Phone: Comment on above: Vitamin D 25(OH) Sta tus Range Deficiency <20 ng/mL (50nmol/L) Insufficiency 20 - 30 ng/mL (50 - 75 nmol/L) Sufficiency 30 - 100 ng/mL (75 - 250 nmol/L) Toxicity >100 ng/mL (>250 nmol/L) Platelets bldon 08-11-2021 Platelets (Bld) [#/Vol] 295 10*3/uL 150-450 [facility] Work Phone: Serum or plasma albumin raine urement (mass/volume)on 08-11-2021 Albumin [Mass/Vol] 3.6 g/dL 3.2-5.0 [facility] Work Phone: Serum or plasma albumin/glob ulin mass ratioon 08-11-2021 Albumin/Globulin [Mass ratio] 0.8 {ratio} 0.9-2.4 [facility] Work Phone: Serum or plasma calcium raine urement (mass/volume)on 08-11-2021 Calcium [Mass/Vol] 9.0 mg/dL 8.5-10.1 [facility] Work Phone: Serum or plasma creatinine m easurement (mass/volume)on 08-11-2021 Creatinine [Mass/Vol] 1.06 mg/dL 0.55-1.02 [facility] Work Phone: Comment on above: The validity of the calculated GFR & GFRAA in patients over 70 years has not been determined. Clinical correlation is essential. Serum or plasma urea nitroge n measurement (mass/volume)on 08-11-2021 Urea nitrogen [Mass/Vol] 19 mg/dL 7-18 [facility] Work Phone: Thin prep Papanicolaou smear with manual screeningon 08-11-2021 Thin prep Papanicolaou smear with manual screening 24 U/L 15-37 [facility] Work Phone: Thin prep Papanicolaou smear with manual screening 3 5-15 [facility] Work Phone: CNOVon 02-21-2021 CNOV Office Visit (UCWSTR ) HAVENBARBARA ([id number]) 1950 F Date Time Provider Department 02/21/21 11:00 AM PETE MELVIN [facility] During your visit today, we recorded the following information about you: Temperature Pulse Respiration Blood pressure 98.7 degrees 86/minute 16/minute 128/80 Weight 89.8 kg Pete MelvinDULCE MARIA.CARDIOTHORACIC ANESTHESIA TECHNICIAN 02/21/2021 11:45 AM Signed Subjective HPI Nontoxic appearing female presents urgent care chief complaint left second digit laceration. Duration of symptoms greater than 3 days. 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 hvcpvxypnmg-K0-Vfxyibe ia serr (OSTEO BI-FLEX, 5-LOXIN,) 1,500-400-100 mg-unit-mg tab Take 1 tablet by mouth once daily. LIDOCAINE (PF) 100 MG/ML (10 %) IV Not sure of dose, IV lidocaine infusion once monthly FAMILY HISTORY Problem Relation Age of Onset - Heart Mother NH - Cancer Father Lung - Heart Sister NH, stents Social History Tobacco Use - Smoking [...] so woun (more content not included)... [facility] Anion gap [Moles/Vol] 8 mmol/L Normal 5-16 [facility] Comment on above: Order Comment: Campu s: M Performed By: #### L 500.65090, L500.99697, L500.88185 #### [facility] [place] [address] Calcium [Mass/Vol] 9.5 mg/dL Normal 8.5-10.5 [facility] Comment on above: Order Comment: Campu s: M Result Comment: NOTE NEW NORMAL RANGE DUE TO REAGENT CHANGE Performed By: #### L 500.37993, L500.22206, L500.87729 #### [facility] [address] [place] [address] Chloride [Moles/Vol] 105 mmol/L Normal 98-107 [facility] Comment on above: Order Comment: Campu s: M Performed By: #### L 500.93997, L500.29548, L500.18621 #### [facility] [place] [address] CO2 [Moles/Vol] 29.0 mmol/L Normal 21-32 [facility] Comment on above: Order Comment: Campu s: M Performed By: #### L 500.60435, L500.50167, L500.10876 #### [facility] [place] [address] Creatinine [Mass/Vol] 1.33 mg/dL High 0.510-0.950 [facility] Comment on above: Order Comment: Campu s: M Result Comment: Clara ents receiving either N-Acetylcysteine (NAC) or Metamizole prior to venipuncture, may have falsely depressed results. Performed By: #### L 500.36139, L500.56312, L500.83966 #### [facility] [address] [place] [address] Glucose [Mass/Vol] 115 mg/dL High 70-100 [facility] Comment on above: Order Comment: Campu s: M Result Comment: 70-1 00- Normal Fasting; 100-125 Impaired Fasting; greater than 126 on more than one result- Diabetes. ADA guidelines. Results may be falsely elevated after the administration of Sulfapyridine. Results may be falsely depressed after the administration of Sulfasalazine. Performed By: #### L 500.73196, L500.48515, L500.92808 #### [facility] [address] [place] [address] Potassium [Moles/Vol] 4.3 mmol/L Normal 3.5-5.1 [facility] Comment on above: Order Comment: Campu s: M Result Comment: Slig ht Hemolysis, Result may be affected. Performed By: #### L 500.08833, L500.59502, L500.86316 #### [facility] [address] [place] [address] Sodium [Moles/Vol] 142 mmol/L Normal 136-145 [facility] Comment on above: Order Comment: Campu s: M Performed By: #### L 500.37491, L500.40961, L500.97204 #### [facility] [address] [place] [address] Urea nitrogen [Mass/Vol] 21 mg/dL Normal 7-26 [facility] Comment on above: Order Comment: Campu s: M Performed By: #### L 500.48833, L500.71589, L500.82340 #### [facility] [address] [place], [place] [id number] Urea nitrogen/Creatinine [Mass ratio] 16 mg/mg Normal 15-24 [facility] Comment on above: Order Comment: Campu s: M Performed By: #### L 500.60088, L500.23962, L500.19035 #### [facility] [address] [place] [address] CBC W/DIFFon 01-03-2021 BASO ABS 0.10 K/CU MM Normal 0-0.2 [facility] Comment on above: Order Comment: Campu s: M Performed By: #### L 200.95113 #### [facility] [address] [place] [address] Basophils/100 WBC (Bld) 0.4 % Normal 0-2 [facility] Comment on above: Order Comment: Campu s: M Performed By: #### L 200.59596 #### [facility] [address] [place] [address] EOS ABS 0.00 K/CU MM Normal 0-0.5 [facility] Comment on above: Order Comment: Campu s: M Performed By: #### L 200.76394 #### [facility] [address] [place] [address] Eosinophils/100 WBC (Bld) 0.1 % Normal 0-5 [facility] Comment on above: Order Comment: Campu s: M Performed By: #### L 200.97144 #### [facility] [address] [place] [address] Erythrocyte distribution width (RBC) [Ratio] 13.7 % Normal 11-14.5 [facility] Comment on above: Order Comment: Campu s: M Performed By: #### L 200.00774 #### [facility] [address] [place] [address] Hematocrit (Bld) [Volume fraction] 44.2 % Normal 35.0-47.0 [facility] Comment on above: Order Comment: Campu s: M Performed By: #### L 200.70069 #### [facility] [address] [place] [address] Hemoglobin (Bld) [Mass/Vol] 14.9 g/dL Normal 11.5-15.5 [facility] Comment on above: Order Comment: Campu s: M Performed By: #### L 200.64234 #### [facility] [address] [place] [address] IMMATR GRAN ABS 0.10 K/CU MM Normal Less than 2 [facility] Comment on above: Order Comment: Campu s: M Performed By: #### L 200.32790 #### [facility] [address] [place] [address] IMMATURE GRAN % 0.8 % Normal Less than 2 [facility] Comment on above: Order Comment: Campu s: M Performed By: #### L 200.04895 #### [facility] [address] [place] [address] LYMPH ABS 1.90 K/CU MM Normal 0.9-4.4 [facility] Comment on above: Order Comment: Campu s: M Performed By: #### L 200.28353 #### [facility] [address] [place] [address] Lymphocytes/100 WBC (Bld) 14.4 % Low 20-40 [facility] Comment on above: Order Comment: Campu s: M Performed By: #### L 200.34167 #### [facility] [address] [place] [address] MCHC (RBC) [Mass/Vol] 33.7 g/dL Normal 32.0-36.0 [facility] Comment on above: Order Comment: Campu s: M Performed By: #### L 200.68961 #### [facility] [address] [place] [address] MCV (RBC) [Entitic vol] 89.1 fL Normal 80.0-99.0 M [facility] Comment on above: Order Comment: Campu s: M Performed By: #### L 200.31202 #### [facility] [address] [place] [address] MONO ABS 1.00 K/CU MM Normal 0.1-1.1 [facility] Comment on above: Order Comment: Campu s: M Performed By: #### L 200.90758 #### [facility] [address] [place] [address] Monocytes/100 WBC (Bld) 7.5 % Normal 2-10 M [facility] Comment on above: Order Comment: Campu s: M Performed By: #### L 200.20140 #### [facility] [address] [place] [address] NEUTROPHIL ABS 10.40 K/CU MM High 2.0-8.3 [facility] Comment on above: Order Comment: Campu s: M Performed By: #### L 200.64619 #### [facility] [address] [place] [address] Neutrophils/100 WBC (Bld) 76.8 % High 45-75 [facility] Comment on above: Order Comment: Campu s: M Performed By: #### L 200.31666 #### [facility] [address] [place] [address] Nucleated RBC/100 WBC (Bld) [Ratio] 0.0 % Normal Less than 1 [facility] Comment on above: Order Comment: Campu s: M Performed By: #### L 200.81047 #### [facility] [address] [place] [address] Platelet mean volume (Bld) [Entitic vol] 9.1 fL Low 9.4-12.4 [facility] Comment on above: Order Comment: Campu s: M Performed By: #### L 200.06182 #### [facility] [address] [place] [address] PLT 296 K/CU MM Normal 150-450 [facility] Comment on above: Order Comment: Campu s: M Performed By: #### L 200.94318 #### [facility] [address] [place] [address] RBC 4.96 M/CU MM Normal 3.90-5.30 [facility] Comment on above: Order Comment: Campu s: M Performed By: #### L 200.80814 #### [facility] [address] [place] [address] WBC 13.5 K/CUMM High 4.5-11.0 [facility] Comment on above: Order Comment: Campu s: M Performed By: #### L 200.11723 #### [facility] [address] [place] [address] HEAD/BRAIN W/O CONon 12-11 CT HEAD/BRAIN [...] or MRI would be suggested. Dictated by Rfid Systems Engineer: Amie Chaudhry DO I, MD MANUELA Patel, have supervised the procedure and/or image review, and agree with the above interpretation and report. ---- Electronic Signature on File ---- Signed By: Quan Celis MD FACBarbara [email or web address] Dictated: 01/03/2021 2:23 PM Signed: 01/03/2021 2:36 PM Reported By: QUAN CELIS M.D. Signed By: QUAN CELIS M.D. [facility] EKthor 01-03-2021 Electrocardiogram Procedure Date and [...] MENDIOLA M.D.FACC [employer] DDandT: 01/03/21 1301 TDandT: [facility] PATIENT NAME: JESSICA GLASS [facility] [address] MEDICAL REC #: [id number] [place] [address] ADMIT DATE: DISCHARGE DATE: ATTENDING PHY: Nicholas Catherine,Emergency Physi ELECTROCARDIOGRAM REPORT CLB cc: [facility] PATIENT NAME: JESSICA GLASS [facility] [address] MEDICAL REC #: [id number] [place] [address] ADMIT DATE: DISCHARGE DATE: ATTENDING MARGYY: Nicholas Catherine,Emergency Physi ELECTROCARDIOGRAM REPORT Normal [facility] Jeff 01-03-2021 EMERGENCY PHYSICIAN REPORT This is a preliminary report only, as the practitioner review and authentication has not occurred. Normal [facility] ER PHYSICIAN ASSESSMENT RECORDS : FlexChartData Event Time: 01/03/2021 14:35 Status: Signed [facility] Jessica Glass [[id number]] Attending Physician / / 1950 Chart (V2b) Chart created at 01/03/2021 14:27 by Melvin Herbert Chart closed at 01/03/2021 17:08 Entry in Emergency Department at 01/03/2021 12:42, departure at 01/03/2021 17:16 Patient Name: Jessica Glass Record Number: [id number] Date: 01/03/2021 14:27 Entered Department at: 01/03/2021 [...] weak and lightheaded during this infusion and [facility] PATIENT NAME: JESSICA GLASS [facility] Dr[facility] Forman MEDICAL REC #: [id number] [place] [address] EMERGENCY DEPARTMENT REPORT EMERGENCY DEPARTMENT PHYSICIAN ultimately [...] Normal Skin: No Petechiae, Warm and Dry [facility] PATIENT NAME: JESSICA GLASS [facility] Dr[facility] Forman MEDICAL REC #: [id number] [place] [address] EMERGENCY DEPARTMENT REPORT EMERGENCY DEPARTMENT PHYSICIAN CBC [...] SGPT (ALT): 17 U/L; TP: 6.8 Gm/Dl [id number], information as of 01/03/2021, 1:01 pm [id number]: Neg Cardiogram: Interpreted by me. Interpretation: Normal sinus rhythm, rate of 66, left axis deviation, delayed R wave progression, no acute ST elevation, QTc 454. No evidence of WPW or Brugada. Comparison: No old Cardiogram available for comparison Monitor / Rhythm Strip: NSR Imaging Study Obtained: CT (HEAD/BRAIN) WO CON (more content not included)... Normal [facility] GFR ESTon 01-03-2021 IF AMER 47 Normal [facility] Comment on above: Order Comment: Campu s: M Performed By: #### L 500.66335, L500.98012, L500.74230 #### [facility] [address] [place] [address] IF non-AFR AMER 39 Normal [facility] Comment on above: Order Comment: Campu s: M Performed By: #### L 500.90988, L500.19672, L500.09695 #### [facility] [address] [place] [address] LIVERon 01-03-2021 Albumin [Mass/Vol] 3.6 g/dL Normal 3.2-5.0 [facility] Comment on above: Order Comment: Campu s: M Performed By: #### L 500.69000, L500.48673, L500.75825 #### [facility] [address] [place] [address] Albumin/Globulin [Mass ratio] 1.1 {ratio} Normal 0.8-2.0 [facility] Comment on above: Order Comment: Campu s: M Performed By: #### L 500.67103, L500.20227, L500.49555 #### [facility] [address] [place] [address] ALK PHOS 102 U/L Normal 45-117 [facility] Comment on above: Order Comment: Campu s: M Performed By: #### L 500.41958, L500.84455, L500.95427 #### [facility] [place] [address] ALT [Catalytic activity/Vol] 17 U/L Normal 13-61 [facility] Comment on above: Order Comment: Campu s: M Result Comment: RESU LTS MAY BE FALSELY DEPRESSED AFTER THE ADMINISTRATION OF SULFASALAZINE AND/OR SULFAPYRIDINE. Performed By: #### L 500.63958, L500.28936, L500.13239 #### [facility] [address] [place] [address] AST [Catalytic activity/Vol] 24 U/L Normal 8-34 [facility] Comment on above: Order Comment: Campu s: M Result Comment: RESU LTS MAY BE FALSELY DEPRESSED AFTER THE ADMINISTRATION OF SULFASALAZINE AND/OR SULFAPYRIDINE. Performed By: #### L 500.88113, L500.95841, L500.80477 #### [facility] [address] [place] [address] BILI DIRECT 0.1 MG/DL Normal 0.00-0.36 [facility] Comment on above: Order Comment: Campu s: M Result Comment: NOTE NEW NORMAL RANGE DUE TO REAGENT CHANGE Performed By: #### L 500.07606, L500.54737, L500.04719 #### [facility] [address] [place] [address] BILI TOTAL 0.40 MG/DL Normal 0.2-1.0 [facility] Comment on above: Order Comment: Campu s: M Performed By: #### L 500.90978, L500.04955, L500.59159 #### [facility] [address] [place] [address] Globulin (S) [Mass/Vol] 3.2 g/dL Normal 2.2-4.2 M [facility] Comment on above: Order Comment: Campu s: M Performed By: #### L 500.47865, L500.93864, L500.03527 #### [facility] [place] [address] Protein [Mass/Vol] 6.8 g/dL Normal 6.0-8.5 [facility] Comment on above: Order Comment: Campu s: M Performed By: #### L 500.94887, L500.13293, L500.60691 #### [place] [address] [id number] 01-03-2021 SARS-CoV-2 (COVID-19) RNA BARAK+probe Ql (Unsp spec) Negative Invalid Interpretation Code Negative [facility] Comment on above: Order Comment: Campu s: [...] performed by PCR. Performed By: #### L 770.91258 #### [facility] [address] [place], [place] [id number] TROPONIN Ion 01-03-2021 Troponin I.cardiac [Mass/Vol] 2.5 ng/mL Normal 0-34 [facility] Comment on above: Order Comment: Campu s: M Result Comment: NOTE NEW NORMAL RANGE DUE TO REAGENT CHANGE This assay uses different antibodies than our current assay, and assays, even by the same supervisor blood donor recruiters may recognize different regions of the antibody and cannot be used interchangeably. Expect results of this assay to run higher than the previous assay. Performed By: #### L 550.59996 #### [facility] [address] [place] [address] # [phone] Vital Signs Date Time Vital Sign Value Performing Clinician Nadia conroy 03-08-2025 16:47-0400 Body temperature 97.6 [degF] Dr. Ed Bowman MD Work Phone: [facility] 03-08-2025 16:47-0400 Diastolic blood pressure 81 mm[Hg] Dr. Ed Bowman MD Work Phone: 1(156)763-183639 [place] [address] 03-08-2025 16:47-0400 Heart rate 69 /min Dr. Ed Bowman MD Work Phone: 2(114)018-206781 [address] 03-08-2025 16:47-0400 Respiratory rate 14 /min Dr. Ed Bowman MD Work Phone: 7(995)536-563739 [place] [address] 03-08-2025 16:47-0400 SaO2% (BldA) [Mass fraction] 96 % Dr. Ed Bowman MD Work Phone: [facility] 03-08-2025 16:47-0400 Systolic blood pressure 137 mm[Hg] Dr. Ed Bowman MD Work Phone: 6(580)220-061081 [address] 03-08-2025 12:59-0400 Body height 165.[address] Ed Bowman MD Work Phone: 0(421)078-696981 [address] 03-08-2025 12:59-0400 Body mass index (BMI) [Ratio] 32.8 kg/m2 Dr. Ed Bowman MD Work Phone: [facility] 03-08-2025 12:59-0400 Body weight 89.[address] Ed Bowman MD Work Phone: [facility] 02-02-2025 18:32-0400 Body temperature 98.6 [degF] Dr. Ed Bowman MD Work Phone: [facility] 02-02-2025 18:32-0400 Diastolic blood pressure 93 mm[Hg] Dr. Ed Bowman MD Work Phone: [facility] 02-02-2025 18:32-0400 Heart rate 87 /min Dr. Ed Bowman MD Work Phone: [facility] 02-02-2025 18:32-0400 Respiratory rate 24 /min Dr. Ed Bowman MD Work Phone: 3(041)319-311239 [place] [address] 02-02-2025 18:32-0400 SaO2% (BldA) [Mass fraction] 97 % Dr. Ed Bowman MD Work Phone: 3(376)298-455539 [place] [address] 02-02-2025 18:32-0400 Systolic blood pressure 161 mm[Hg] Dr. Ed Bowman MD Work Phone: 1(989)350-626655 [place] [address] 02-02-2025 14:24-0400 Body height 165.[address] Ed Bowman MD Work Phone: 2(551)238-676855 [place] [address] 01-01-2025 14:43-0400 Diastolic blood pressure 88 mm[Hg] Dr. Ed Bowman MD Work Phone: 0(323)064-031955 [place] [address] 01-01-2025 14:43-0400 Heart rate 89 /min Dr. Ed Bowman MD Work Phone: 7(934)658-692155 [place] [address] 01-01-2025 14:43-0400 Respiratory rate 16 /min Dr. Ed Bowman MD Work Phone: 0(904)441-252955 [place] [address] 01-01-2025 14:43-0400 SaO2% (BldA) [Mass fraction] 97 % Dr. Ed Bowman MD Work Phone: 7(656)387-526739 [place] [address] 01-01-2025 14:43-0400 Systolic blood pressure 173 mm[Hg] Dr. Ed Bowman MD Work Phone: 3(158)199-939955 [place] [address] 01-01-2025 13:43-0400 Body height 165.[address] Ed Bowman MD Work Phone: 1(503)411-613455 [place] [address] 01-01-2025 13:43-0400 Body mass index (BMI) [Ratio] 33.4 kg/m2 Dr. Ed Bowman MD Work Phone: 7(234)799-969655 [place] [address] 01-01-2025 13:43-0400 Body temperature 98.2 [degF] Dr. Ed Bowman MD Work Phone: 1(513)525-416555 [place] [address] 01-01-2025 13:43-0400 Body weight 91.[address] Ed Bowman MD Work Phone: 8(563)119-971655 [place] [address] 12-05-2024 09:37-0400 Body temperature 97.4 [degF] Dr. Ed Bowman MD Work Phone: 6(148)942-416455 [place] [address] 12-05-2024 09:37-0400 Diastolic blood pressure 96 mm[Hg] Dr. Ed Bowman MD Work Phone: 2(981)974-185955 [place] [address] 12-05-2024 09:37-0400 Heart rate 88 /min Dr. Ed Bowman MD Work Phone: 3(131)283-616755 [place] [address] 12-05-2024 09:37-0400 Respiratory rate 16 /min Dr. Ed Bowman MD Work Phone: 5(496)019-802355 [place] [address] 12-05-2024 09:37-0400 SaO2% (BldA) [Mass fraction] 95 % Dr. Ed Bowman MD Work Phone: 5(295)404-805155 [place] [address] 12-05-2024 09:37-0400 Systolic blood pressure 166 mm[Hg] Dr. Ed Bowman MD Work Phone: 7(063)191-578055 [place] [address] 12-05-2024 08:32-0400 Body height 165.[address] Ed Bowman MD Work Phone: 5(655)821-435555 [place] [address] 12-05-2024 08:32-0400 Body mass index (BMI) [Ratio] 33.4 kg/m2 Dr. Ed Bowman MD Work Phone: 4(054)189-100455 [place] [address] 12-05-2024 08:32-0400 Body weight 91.[address] Ed Bowman MD Work Phone: 5(439)864-848155 [place] [address] 11-26-2024 16:23-0400 Body temperature 97.7 [degF] Dr. Ed Bowman MD Work Phone: 1(065)041-765255 [place] [address] 11-26-2024 16:23-0400 Diastolic blood pressure 91 mm[Hg] Dr. Ed Bowman MD Work Phone: 8(939)901-720939 [place] [address] 11-26-2024 16:23-0400 Heart rate 89 /min Dr. Ed Bowman MD Work Phone: 0(846)873-586555 [place] [address] 11-26-2024 16:23-0400 Respiratory rate 16 /min Dr. Ed Bowman MD Work Phone: 2(677)316-501555 [place] [address] 11-26-2024 16:23-0400 SaO2% (BldA) [Mass fraction] 95 % Dr. Ed Bowman MD Work Phone: 9(233)480-725155 [place] [address] 11-26-2024 16:23-0400 Systolic blood pressure 132 mm[Hg] Dr. Ed Bowman MD Work Phone: 0(929)109-280555 [place] [address] 11-26-2024 14:14-0400 Body height 165.[address] Ed Bowman MD Work Phone: 7(032)935-656555 [place] [address] 11-20-2024 14:42-0400 Body mass index (BMI) [Ratio] 35.6 kg/m2 Dr. Ed Bowman MD Work Phone: 5(001)435-588255 [place] [address] 11-20-2024 14:42-0400 Body temperature 98.3 [degF] Dr. Ed Bowman MD Work Phone: 8(880)970-540055 [place] [address] 11-20-2024 14:42-0400 Body weight 91.[address] Ed Bowman MD Work Phone: 1(581)004-875355 [place] [address] 11-20-2024 14:42-0400 Diastolic blood pressure 88 mm[Hg] Dr. Ed Bowman MD Work Phone: 5(795)225-150355 [place] [address] 11-20-2024 14:42-0400 Heart rate 93 /min Dr. Ed Bowman MD Work Phone: 6(816)857-419755 [place] [address] 11-20-2024 14:42-0400 Respiratory rate 16 /min Dr. Ed Bowman MD Work Phone: 8(524)473-394355 [place] [address] 11-20-2024 14:42-0400 SaO2% (BldA) [Mass fraction] 93 % Dr. Ed Bowman MD Work Phone: [facility] 11-20-2024 14:42-0400 Systolic blood pressure 147 mm[Hg] Dr. Ed Bowman MD Work Phone: [facility] 11-05-2024 15:21-0400 Diastolic blood pressure 88 mm[Hg] Dr. Ed Bowman MD Work Phone: 0(311)916-896739 [place] [address] 11-05-2024 15:21-0400 Heart rate 80 /min Dr. Ed Bowman MD Work Phone: 9(753)778-717039 [place] [address] 11-05-2024 15:21-0400 Respiratory rate 18 /min Dr. Ed Bowman MD Work Phone: 8(931)688-286755 [place] [address] 11-05-2024 15:21-0400 SaO2% (BldA) [Mass fraction] 95 % Dr. Ed Bowman MD Work Phone: 4(096)971-483355 [place] [address] 11-05-2024 15:21-0400 Systolic blood pressure 145 mm[Hg] Dr. Ed Bowman MD Work Phone: 9(927)661-248539 [place] [address] 11-05-2024 13:22-0400 Body height 159.[address] Ed Bowman MD Work Phone: 8(581)412-663155 [place] [address] 11-05-2024 13:22-0400 Body mass index (BMI) [Ratio] 34 kg/m2 Dr. Ed Bowman MD Work Phone: 4(209)387-206339 [place] [address] 11-05-2024 13:22-0400 Body temperature 97.9 [degF] Dr. Ed Bowman MD Work Phone: 5(494)341-052239 [place] [address] 11-05-2024 13:22-0400 Body weight [address] Ed Bowman MD Work Phone: 3(027)727-016039 [place] [address] 09-25-2024 13:21-0400 Body mass index (BMI) [Ratio] 33.9 kg/m2 Dr. Ed Bowman MD Work Phone: 8(541)795-792639 [place] [address] 09-25-2024 13:21-0400 Body temperature 98.1 [degF] Dr. Ed Bowman MD Work Phone: [facility] 09-25-2024 13:21-0400 Body weight 86.[address] Ed Bowman MD Work Phone: 5(246)383-564939 [place] [address] 09-25-2024 13:21-0400 Diastolic blood pressure 94 mm[Hg] Dr. Ed Bowman MD Work Phone: 3(411)572-146655 [place] [address] 09-25-2024 13:21-0400 Heart rate 92 /min Dr. Ed Bowman MD Work Phone: 8(492)910-069055 [place] [address] 09-25-2024 13:21-0400 Respiratory rate 18 /min Dr. Ed Bowman MD Work Phone: 4(107)396-081655 [place] [address] 09-25-2024 13:21-0400 SaO2% (BldA) [Mass fraction] 102 % Dr. Ed Bowman MD Work Phone: 4(830)507-493155 [place] [address] 09-25-2024 13:21-0400 Systolic blood pressure 143 mm[Hg] Dr. Ed Bowman MD Work Phone: 8(616)728-846555 [place] [address] 09-16-2024 13:22-0500 Body temperature 97.6 [degF] Dr. Ed Bowman MD Work Phone: 9(491)986-463355 [place] [address] 09-16-2024 13:22-0500 Diastolic blood pressure 90 mm[Hg] Dr. Ed Bowman MD Work Phone: 3(365)745-264055 [place] [address] 09-16-2024 13:22-0500 Heart rate 85 /min Dr. Ed Bowman MD Work Phone: [facility] 09-16-2024 13:22-0500 Respiratory rate 16 /min Dr. Ed Bowman MD Work Phone: 2(409)846-128339 [place] [address] 09-16-2024 13:22-0500 SaO2% (BldA) [Mass fraction] 96 % Dr. Ed Bowman MD Work Phone: 2(898)753-376539 [place] [address] 09-16-2024 13:22-0500 Systolic blood pressure 138 mm[Hg] Dr. Ed Bowman MD Work Phone: 3(223)108-794081 [address] 09-16-2024 11:53-0500 Body mass index (BMI) [Ratio] 34.7 kg/m2 Dr. Ed Bowman MD Work Phone: 4(965)697-988939 [place] [address] 09-16-2024 11:53-0500 Body weight 89.[address] Ed Bowman MD Work Phone: 0(740)343-875455 [place] [address] 09-16-2024 11:50-0500 Body height 160.[address] Ed Bowman MD Work Phone: 1(393)982-090255 [place] [address] 07-18-2024 13:41-0500 Body temperature 97.8 [degF] Dr. Ed Bowman MD Work Phone: 4(905)650-585955 [place] [address] 07-18-2024 13:41-0500 Body weight 87.[address] Ed Bowman MD Work Phone: 9(847)605-496655 [place] [address] 07-18-2024 13:41-0500 Diastolic blood pressure 89 mm[Hg] Dr. Ed Bowman MD Work Phone: 5(372)014-563855 [place] [address] 07-18-2024 13:41-0500 Heart rate 88 /min Dr. Ed Bowman MD Work Phone: 9(407)625-557555 [place] [address] 07-18-2024 13:41-0500 Respiratory rate 16 /min Dr. Ed Bowman MD Work Phone: 2(649)279-002055 [place] [address] 07-18-2024 13:41-0500 SaO2% (BldA) [Mass fraction] 96 % Dr. Ed Bowman MD Work Phone: 6(726)327-267155 [place] [address] 07-18-2024 13:41-0500 Systolic blood pressure 141 mm[Hg] Dr. Ed Bowman MD Work Phone: 9(055)596-478955 [place] [address] 06-05-2024 15:02-0500 Body mass index (BMI) [Ratio] 34.2 kg/m2 Dr. Ed Bowman MD Work Phone: 7(639)035-905655 [place] [address] 06-05-2024 15:02-0500 Body temperature 98.3 [degF] Dr. Ed Bowman MD Work Phone: 7(342)632-380055 [place] [address] 06-05-2024 15:02-0500 Body weight 87.[address] Ed Bowman MD Work Phone: 6(376)233-819839 [place] [address] 06-05-2024 15:02-0500 Diastolic blood pressure 92 mm[Hg] Dr. Ed Bowman MD Work Phone: 3(188)234-140155 [place] [address] 06-05-2024 15:02-0500 Heart rate 86 /min Dr. Ed Bowman MD Work Phone: 5(661)286-012155 [place] [address] 06-05-2024 15:02-0500 Respiratory rate 18 /min Dr. Ed Bowman MD Work Phone: 5(553)358-427055 [place] [address] 06-05-2024 15:02-0500 SaO2% (BldA) [Mass fraction] 99 % Dr. Ed Bowman MD Work Phone: 6(331)088-672455 [place] [address] 06-05-2024 15:02-0500 Systolic blood pressure 145 mm[Hg] Dr. Ed Bowman MD Work Phone: 6(062)852-096955 [place] [address] 06-04-2024 20:27-0500 Body temperature 98.1 [degF] Dr. Ed Bowman MD Work Phone: 2(495)079-300855 [place] [address] 06-04-2024 20:27-0500 Diastolic blood pressure 77 mm[Hg] Dr. Ed Bowman MD Work Phone: 1(386)770-228655 [place] [address] 06-04-2024 20:27-0500 Heart rate 87 /min Dr. Ed Bowman MD Work Phone: 9(946)186-749255 [place] [address] 06-04-2024 20:27-0500 Respiratory rate 18 /min Dr. Ed Bowman MD Work Phone: 1(536)110-029639 [place] [address] 06-04-2024 20:27-0500 SaO2% (BldA) [Mass fraction] 99 % Dr. Ed Bowman MD Work Phone: 3(046)657-280839 [place] [address] 06-04-2024 20:27-0500 Systolic blood pressure 133 mm[Hg] Dr. Ed Bowman MD Work Phone: 5(759)286-106455 [place] [address] 06-04-2024 18:30-0500 Body mass index (BMI) [Ratio] 36.6 kg/m2 Dr. Ed Bowman MD Work Phone: [facility] 06-04-2024 18:30-0500 Body weight 93.[address] Ed Bowman MD Work Phone: [facility] 03-16-2023 10:53-0400 Body height 165.1 cm [facility] 01-30-2023 15:12-0400 Heart rate 65 /min [facility] 01-30-2023 15:12-0400 Respiratory rate 16 /min [facility] 01-30-2023 15:12-0400 SaO2% (BldA) [Mass fraction] 97 % [facility] 01-30-2023 12:04-0400 Body height 165.1 cm [facility] 01-30-2023 12:04-0400 Body mass index (BMI) [Ratio] 35.1 kg/m2 [facility] 01-30-2023 12:04-0400 Body temperature 96.4 [degF] [facility] 01-30-2023 12:04-0400 Body weight 95.75 kg [facility] Encounters Encounter Date Encounter Type Care Provider Facility Start: 03-08-2025 Evaluation and management of inpatient Dr. Rubi Freire MD -Medical Surgical 3 Work Phone: Start: 02-22-2025 End: 02-22-[address] Ed Bowman MD Work Phone: -Laboratory Start: 02-22-2025 End: 02-22-[address] Ed Bowman MD -Laboratory Work Phone: Start: 02-22-2025 End: 02-22-[address] [facility] Facility:[facility] Start: 02-02-2025 End: 02-02-2025 Emergency department patient visit Dr. Ed Bowman MD Work Phone: -Emergency Department Work Phone: Start: 01-05-[address] [facility] Facility:[facility] Start: 01-01-2025 End: 01-01-2025 Emergency department patient visit Dr. Ed Bowman MD Work Phone: -Emergency Department Work Phone: Start: 12-12-2024 End: 12-12-[address] Ed Bowman MD Work Phone: [facility] Work Phone: Start: 12-12-2024 End: 12-12-[address] Ed Bowman MD -Cat Scan [facility] Work Phone: Start: 12-11-2024 End: 12-12-[address] Ed Bowman MD Work Phone: [facility] Work Phone: Start: 12-11-2024 End: 12-11-[address] Ed Bowman MD -Laboratory Work Phone: Start: 12-11-2024 End: 12-11-[address] [facility] Facility:[facility] Start: 12-05-2024 End: 12-05-2024 Emergency department patient visit Dr. Ed Bowman MD Work Phone: -Emergency Department Work Phone: Start: 11-29-2024 End: 11-29-[address] Ed Bowman MD Work Phone: [facility] Work Phone: Start: 11-29-2024 End: 11-29-[address] Ke Saeed MD -Outpatient Breast Imaging Work Phone: Start: 11-29-2024 End: 11-29-[address] [facility] Facility:[facility] Start: 11-26-2024 End: 11-26-2024 Emergency department patient visit Dr. Ed Bowman MD Work Phone: -Emergency Department Work Phone: Start: 11-21-2024 End: 11-21-[address] Ed Bowman MD Work Phone: [facility] Work Phone: Start: 11-21-2024 End: 11-21-[address] Ed Bowman MD -Laboratory Specimen Work Phone: Start: 11-20-2024 End: 11-20-[address] Ke Saeed MD -[facility] Work Phone: Start: 11-20-2024 End: 11-21-[address] [facility] Facility:[facility] Start: 11-20-[address] Nelson Hobson MD -[facility] Start: 11-09-2024 End: 11-09-[address] Ed Bowman MD -Radiology [facility] Work Phone: Start: 11-09-2024 End: 11-09-[address] [facility] Facility:[facility] Start: 11-05-2024 End: 11-05-2024 Emergency department patient visit Dr. Ed Bowman MD Work Phone: -Emergency Department Work Phone: Start: 09-25-[address] Nelson Hobson MD -[facility] Start: 09-25-2024 End: 09-25-[address] Nelson Hobson MD -[facility] Work Phone: Start: 09-25-2024 End: 09-25-[address] [facility] Facility:[facility] Start: 09-16-2024 End: 09-16-2024 Emergency department patient visit Dr. Ed Bowman MD Work Phone: -Emergency Department Work Phone: Start: 09-12-2024 End: 09-12-[address] Ed Bowman MD Work Phone: [facility] Work Phone: Start: 09-12-2024 End: 09-12-[address] Ed Bowman MD -Laboratory, Phy Office 3rd Flr Start: 09-12-2024 End: 09-12-2024 ambulatory Ed Chi Colby Facility:[facility] Start: 07-18-2024 End: 07-18-2024 Patient encounter procedure Roxana MARIA -[facility] Work Phone: Start: 07-18-2024 End: 07-18-2024 ambulatory Ed Chi Colby Facility:[facility] Start: 06-30-2024 ambulatory Ed Chi Colby Facility:[facility] Start: 06-30-2024 Non-patient / Non-visit Dr. Neptali york MD -[facility] Start: 06-30-2024 End: 06-30-2024 Patient encounter procedure Roxana MARIA -Cardiovascular Services Work Phone: Start: 06-30-2024 End: 06-30-2024 ambulatory Roxana Johns Facility:[facility] Start: 06-13-2024 End: 06-13-[address] dE Bowman MD -Laboratory, Phy Office 3rd Flr Start: 06-13-2024 End: 06-13-2024 ambulatory Ed Chi Colby Facility:[facility] Start: 06-08-2024 End: 06-08-[address] Nelson Hobson MD -Laboratory, Specimen Work Phone: Start: 06-08-2024 End: 06-08-2024 ambulatory Ed Chi Colby Facility:[facility] Start: 06-05-[address] Nelson Hobson MD -[facility] Start: 06-05-2024 End: 06-05-[address] Nelson Hobson MD -[facility] Work Phone: Start: 06-05-2024 End: 06-05-2024 ambulatory Ed Chi Colby Facility:[facility] Start: 06-04-2024 End: 06-04-2024 Emergency department patient visit Dr. Chance Nieto MD -Emergency Department Work Phone: Start: 05-16-2024 End: 05-16-2024 ambulatory Ed Chi Colby Facility:[facility] Start: 05-12-2024 End: 05-12-2024 ambulatory Ed Chi Colby Facility:[facility] Start: 05-11-2024 End: 05-11-2024 ambulatory [facility] Facility:[facility] Start: 05-08-2024 End: 05-08-2024 ambulatory Nelson Hobson Facility:[facility] Start: 03-31-2024 End: 03-31-2024 ambulatory Roxana Johns Facility:[facility] Start: 03-13-2024 ambulatory Simona Mo [facility] Start: 03-12-2024 ambulatory Daydaymonroe Pat Facility: [facility] Start: 03-12-2024 End: 03-16-2024 Evaluation and management of inpatient Dayday Bi Facility:[facility] Start: 03-10-2024 End: 03-10-2024 ambulatory [facility] Facility:[facility] Start: 02-24-2024 End: 02-24-2024 ambulatory [facility] Facility:[facility] Start: 02-23-2024 End: 02-23-2024 ambulatory [facility] Facility:[facility] Start: 09-06-2023 End: 09-06-2023 ambulatory [facility] Work Phone: Start: 09-06-2023 End: 09-06-2023 Patient encounter procedure [facility]-Laboratory, Phy Office 3rd Flr Start: 08-13-2023 End: 08-13-2023 Patient encounter procedure [facility]-Radiology, [facility] Work Phone: Start: 03-23-2023 End: 03-23-2023 ambulatory [facility] Work Phone: Start: 03-23-2023 End: 03-23-2023 Patient encounter procedure [facility]-Radiology, [facility] Work Phone: Start: 03-16-2023 End: 03-16-2023 ambulatory [facility] Work Phone: Start: 03-16-2023 End: 03-16-2023 Patient encounter procedure [facility]-Outpatient Bone Densitometry Work Phone: Start: 03-08-2023 End: 03-08-2023 ambulatory [facility] Work Phone: Start: 03-08-2023 End: 03-08-2023 [facility] Start: 01-30-2023 End: 01-30-2023 [facility] Start: 01-28-2023 End: 01-28-2023 [facility] Start: 09-01-2022 End: 09-01-2022 ambulatory [facility] Work Phone: Start: 09-01-2022 End: 09-01-2022 [facility] Start: 08-31-2022 End: 08-31-2022 ambulatory [facility] Work Phone: Start: 08-31-2022 End: 08-31-2022 [facility] Start: 03-02-2022 End: 03-02-2022 ambulatory [facility] Work Phone: Start: 03-02-2022 End: 03-02-2022 [facility] Start: 11-12-2021 End: 11-12-2021 [facility] Start: 09-02-2021 End: 09-02-2021 [facility] Start: 08-11-2021 End: 08-11-2021 [facility] Procedures Date Procedure [...] Activity Detail Author Start: 03-08-2025 Admission procedure [facility] Start: 03-08-2025 Hospital admission, emergency, from emergency room, medical nature [facility] Start: 03-08-2025 Brain/Head without Contrast Br ain/Head without Contrast [facility] Start: 03-08-2025 CT Abdomen and Pelvi s W contrast IV [facility] Start: 03-08-2025 CT Cervical spine WO contrast [facility] Start: 03-08-2025 CT Chest, Abd, Pel w/Contrast CT Chest, Abd, Pel w/Contrast [facility] Start: 03-08-2025 CT Unspecified body region WO contrast [facility] Start: 03-08-2025 Elbow min 3 Views Elbow min 3 Views [facility] Start: 03-08-2025 Humerus min 2 Views Humerus min 2 Vi ews [facility] Start: 03-08-2025 Shoulder min 2 Views Shoulder min 2 Views [facility] Start: 03-08-2025 Spine Cervical witho ut Contras Spine Cervical without Contras [facility] Start: 03-08-2025 Wrist min 3 Views Wrist min 3 Views [facility] Start: 03-08-2025 XR Elbow GE 3 Views [facility] Start: 03-08-2025 XR Humerus GE 2 Views [facility] Start: 03-08-2025 XR Shoulder GE 2 Views [facility] Start: 03-08-2025 XR Wrist GE 3 Views [facility] Start: 01-01-2025 [facility] Start: 12-05-2024 Simple repair scalp/neck/ax/genit/trunk 2.5cm/< RPR S/N/AX/GEN/TRNK 2.5CM/< [facility] Start: 12-05-2024 End: 12-05-2024 [facility] Start: 11-26-2024 [facility] Start: 11-21-2024 Skin and Soft Tissue MRSA/MSSA (PCR Skin and Soft Tissue MRSA/MSSA (PCR [facility] Start: 11-21-2024 Bacterial nucleic ac id assay [facility] Start: 11-21-2024 [facility] Start: 11-05-2024 End: 11-05-2024 [facility] Start: 11-05-2024 Bacteria identified in Urine by Culture Urine Culture [facility] Start: 11-05-2024 Consultation [facility] Start: 11-05-2024 [facility] Start: 09-16-2024 [facility] Start: 06-04-2024 [facility] Bacterial nucleic ac id assay [facility] Bilirubin measuremen t, urine [facility] CBC W Auto Different ial panel - Blood [facility] CBC W Auto Different ial panel - Blood [facility] Comprehensive metabo lic 2000 panel - Serum or Plasma [facility] D-dimer assay, quantitative [facility] D-dimer assay, quantitative [facility] Hemoglobin [Presence ] in Urine [facility] Lactate dehydrogenas e measurement [facility] Measurement of keton es in urine using dipstick [facility] MG Breast - bilatera l Screening [facility] Microscopic urinalysis [facility] Partial thromboplast in time, activated [facility] Patient Education [facility] Work Phone: Patient referral [facility] Work Phone: pH of Urine [facility] Prothrombin time [facility] Specific gravity of Urine [facility] Urine blood test [facility] Urine culture [facility] Urine dipstick for glucose [facility] Urine dipstick for leukocyte esterase [facility] Urine dipstick for nitrite [facility] Urine dipstick for protein [facility] Urine examination [facility] Urine microscopy: epithelial cells [facility] Urine Microscopy: wh ite cells [facility] Urobilinogen [Presen ce] in Urine [facility] Immunizations Immunization Date Immunization Notes Care Provider Fa cility 11-05-2024 tetanus toxoid, redu dalila diphtheria toxoid, and acellular pertussis vaccine, adsorbed Dr. Ed Bowman MD Work Phone: [facility] 04-11-2022 influenza, injectabl e, quadrivalent, preservative free [facility] 04-11-2022 influenza, seasonal, injectable [facility] 10-22-2020 Covid (Pfizer) [facility] 09-30-2020 Covid (Pfizer) [facility] 03-26-2019 Influenza virus vaccine [facility] 02-28-2017 influenza, injectabl e, quadrivalent, preservative free [facility] 02-28-2017 influenza, seasonal, injectable [facility] Payers Date Payer Category Payer Self-pay [id number] 2023 Medicare [id number] Medicare [id number] Unknown [id number] Unknown [id number] 2.16.8 40.1.601799.3.579.2.462 Unknown [id number] 2.16.8 40.1.073974.3.579.2.462 Unknown [id number] 2.16.8 40.1.042966.3.579.2.462 Unknown [id number] 2.16.8 40.1.958200.3.579.2.462 Unknown [id number] 2.16.8 40.1.029959.3.579.2.462 Unknown [id number] 2.16.8 40.1.165417.3.579.2.462 Unknown [id number] 2.16.8 40.1.268734.3.579.2.462 Unknown [id number] 2.16.8 40.1.743436.3.579.2.462 Unknown [id number] 2.16.8 40.1.567996.3.579.2.462 Unknown [id number] 2.16.8 40.1.278214.3.579.2.462 Unknown [id number] 2.16.8 40.1.905540.3.579.2.462 Unknown [id number] 2.16.8 40.1.603590.3.579.2.462 Unknown [id number] 2.16.8 40.1.533852.3.579.2.462 Unknown [id number] 2.16.8 40.1.821183.3.579.2.462 Unknown [id number] 2.16.8 40.1.786106.3.579.2.462 Unknown [id number] 2.16.8 40.1.890066.3.579.2.462 Unknown [id number] 2.16.8 40.1.137230.3.579.2.462 Unknown [id number] 2.16.8 40.1.167666.3.579.2.462 Unknown [id number] 2.16.8 40.1.994423.3.579.2.462 Unknown [id number] 2.16.8 40.1.497020.3.579.2.462 Unknown [id number] 2.16.8 40.1.092227.3.579.2.462 Unknown [id number] 2.16.8 40.1.265442.3.579.2.462 Unknown [id number] 2.16.8 40.1.333666.3.579.2.462 Unknown [id number] 2.16.8 40.1.684890.3.579.2.462 Unknown [id number] 2.16.8 40.1.657875.3.579.2.462 Unknown [id number] 2.16.8 40.1.503986.3.579.2.462 Unknown [id number] 2.16.8 40.1.216399.3.579.2.462 Unknown [id number] 2.16.8 40.1.384349.3.579.2.462 Unknown [id number] 2.16.8 40.1.621523.3.579.2.462 Unknown [id number] 2.16.8 40.1.840701.3.579.2.462 Unknown [id number] 2.16.8 40.1.581418.3.579.2.462 Unknown [id number] 2.16.8 40.1.445643.3.579.2.462 Unknown [id number] 2.16.8 40.1.000278.3.579.2.462 Unknown [id number] 2.16.8 40.1.233028.3.579.2.462 Unknown [id number] 2.16.8 40.1.825621.3.579.2.462 Unknown [id number] 2.16.8 40.1.299796.3.579.2.462 Unknown [id number] 2.16.8 40.1.334084.3.579.2.462 Unknown [id number] 2.16.8 40.1.860149.3.579.2.462 Unknown [id number] 2.16.8 40.1.701176.3.579.2.462 Unknown [id number] 2.16.8 40.1.778938.3.579.2.462 Unknown [id number] 2.16.8 40.1.958995.3.579.2.462 Unknown [id number] 2.16.8 40.1.683803.3.579.2.462 Unknown [id number] 2.16.8 40.1.455445.3.579.2.462 Unknown [id number] 2.16.8 40.1.324146.3.579.2.462 Unknown [id number] 2.16.8 40.1.833973.3.579.2.462 Unknown [id number] 2.16.8 40.1.050219.3.579.2.462 Unknown [id number] 2.16.8 40.1.004890.3.579.2.462 Unknown [id number] 2.16.8 40.1.963037.3.579.2.462 Unknown [id number] 2.16.8 40.1.041798.3.579.2.462 Social History Date Type Detail Facility Start: 02-21-2021 End: 01-30-2023 Tobacco smoking status NHIS Unknown if ever smoked [facility] Start: 10-13-2017 None [facility] Start: 12-21-2019 Spouse/ Signif icant Other [facility] Start: 1950 Sex Assigned At Female W [facility] Start: 09-16-2024 End: 03-08-2025 Tobacco smoking status NHIS Never smoked tobacco (finding) [facility] Start: 09-16-2024 End: 11-05-2024 Sex Female (finding) [facility] Medical Equipment Procedure Code Equipment Code [...] with exploration of common bile duct CLIP,HEMTHI STALLWORTHRAVINDRA FDA Start: 12-22-2019 Total cholecystectomy with [...] Of Cons ciousness Awake;Alert;Appropriate;Follow s Commands [facility] Work Phone: 11-05-2024 Cognitive function Level Of Cons ciousness Awake;Alert;Appropriate;Follow s Commands [facility] Work Phone: Clinical Notes 02-21-2021 to 03-08-2025 Note Date & Type Note Facility 03-08-2025 Radiology Diagnostic study note [facility] Imaging Services [address] [place] [address] CT Chest, Abd, Pel w/Contrast MR#: [id number] Acct: [id number] Name: BARBARA GLASS Rep #: [id number] : 1950 F 74 From: Dawson Jay MD PCP: Dr. Ed Bowman MD Status: REG E R Study:CT Chest, Abd, Pel w/Contrast Date of E xam: 03/08/25 Exam# [id number] Ordering Dr: Irena Gannon PROCEDURE: CT CHEST, [...] renal cysts and mild splenomegaly. Reading Location: [id number] CC: Dr. Ed Bowman MD; CROW Cooper ~ [employer] Programmer Analyst: Signed [facility] 03-08-2025 Radiology Diagnostic study note [facility] Imaging Services [address] [place] [address] Brain/Head without Contrast MR#: [id number] Acct: [id number] Name: BARBARA GLASS Rep #: [id number] : 1950 F 74 From: Raul Granado MD PCP: Dr. Ed Bowman MD Status: REG E R Study:Brain/Head without Contrast Date of Exa m: 03/08/25 Exam# [id number] Ordering Dr: Irena Gannon PROCEDURE: BRAIN/HEAD WITHOUT [...] No fracture site is evident. Reading Location: [facility] CC: Dr. Ed Bowman MD; CROW Cooper ~ [employer] Programmer Analyst: Signed [facility] 03-08-2025 Radiology Diagnostic study note [facility] Imaging Services [address] [place] [address] Spine Cervical without Contras MR#: [id number] Acct: [id number] Name: BARBARA GLASS Rep #: [id number] : 1950 F 74 From: Dawson Jay MD PCP: Dr. Ed Bowman MD Status: REG E R Study:Spine Cervical without Contras Date of Exam: 03/08/25 Exam# [id number] Ordering Dr: Irena Gannon PROCEDURE: SPINE CERVICAL [...] of disc space narrowing. Spondylosis. Uncovertebral arthrosis. Qxve-dc-tecydltf degree of bilateral neural foraminal stenosis. C6-7: Minimal disc space narrowing. No significant stenosis. C7-T1: Unremarkable CT/Spine Cervical without Contras IMPRESSION: DEGENERATIVE CHANGES OF THE CERVICAL SPINE. NO EVIDENCE OF SIGNIFICANT OSSEOUS CENTRAL CANAL OR NEURAL FORAMINAL STENOSIS. Reading Location: [id number] CC: Dr. Ed Bowman MD; CROW Cooper ~ [employer] Programmer Analyst: Signed [facility] 03-08-2025 Radiology Diagnostic study note [facility] Imaging Services [address] [place] [address] Shoulder min 2 Views MR#: [id number] Acct: [id number] Name: DAVIDBARBARA C Rep #: [id number] : 1950 F 74 From: Joshua Hubbard MD PCP: Dr. Ed Bowman MD Status: PRE E R Study:Shoulder min 2 Views Date of Exam: 03/08/25 Exam# [id number] Ordering Dr: Irena Gannon PROCEDURE: SHOULDER MIN [...] extending to the greater tubercle. Reading Location: [id number] CC: Dr. Ed Bowman MD; CROW Cooper ~ [employer] Programmer Analyst: Signed [facility] 03-08-2025 Radiology Diagnostic study note [facility] Imaging Services [address] [place], [place] [id number] Humerus min 2 Views MR#: [id number] Acct: [id number] Name: BARBARA GLASS Rep #: [id number] : 1950 F 74 From: Joshua Hubbard MD PCP: Dr. Ed Bowman MD Status: PRE E R Study:Humerus min 2 Views Date of Exam: 03/08/25 Exam# [id number] Ordering Dr: Irena Gannon PROCEDURE: HUMERUS MIN [...] dislocation of the shoulder joint. Reading Location: [facility] CC: Dr. Ed Bowman MD; CROW Cooper ~ Oracle Programmer Analyst: Signed [facility] 03-08-2025 Radiology Diagnostic study note [facility] Imaging Services [address] [place], [place] [id number] Wrist min 3 Views MR#: [id number] Acct: [id number] Name: BARBARA GLASS Rep #: [id number] : 1950 F 74 From: Joshua Hubbard MD PCP: Dr. Ed Bowman MD Status: PRE E R Study:Wrist min 3 Views Date of Exam: Exam# [id number] Ordering Dr: Irena Gannon PROCEDURE: WRIST MIN 3 VIEWS 03/08/2025 REASON FOR EXAM: FALL, PAIN TECHNIQUE: WRIST MIN 3 VIEWS Laterality: Right COMPARISON: None. FINDINGS: Bones: No acute bony abnormalities. Joints: Unremarkable. Soft tissues: No soft tissue abnormalities. RAD/Wrist min 3 Views IMPRESSION: No acute osseous abnormalities. Reading Location: [id number] CC: Dr. Ed Bowman MD; CROW Cooper ~ [employer] Programmer Analyst: Signed [facility] 03-08-2025 Radiology Diagnostic study note [facility] Imaging Services [address] [place], [place] [id number] Elbow min 3 Views MR#: [id number] Acct: [id number] Name: BARBARA GLASS Rep #: [id number] : 1950 F 74 From: Joshua Hubbard MD PCP: Dr. Ed Bowman MD Status: PRE E R Study:Elbow min 3 Views Date of Exam: Exam# [id number] Ordering Dr: Irena Gannon PROCEDURE: ELBOW MIN 3 VIEWS 03/08/2025 REASON FOR EXAM: PAIN TECHNIQUE: ELBOW MIN 3 VIEWS Laterality: COMPARISON: None. FINDINGS: Bones: No acute bony abnormalities. Joints: Unremarkable. Soft tissues: Unremarkable. RAD/Elbow min 3 Views IMPRESSION: No acute osseous abnormalities. Reading Location: [facility] CC: Dr. Ed Bowman MD; CROW Cooper ~ [employer] Programmer Analyst: Signed [facility] 02-02-2025 Radiology Diagnostic study note [facility] Imaging Services [address] [place] [address] Foot min 3 Views MR#: [id number] Acct: [id number] Name: BARBARA GLASS Rep #: [id number] : 1950 F 74 From: Luis Eduardo Rodriguez MD PCP: Dr. Ed Bowman MD Status: REG E R Study:Foot min 3 Views Date of Exam: Exam# [id number] Ordering Dr: Neptali Dacosta DO PROCEDURE: FOOT MIN 3 VIEWS 02/02/2025 REASON FOR EXAM: INJURY/PAIN TECHNIQUE: FOOT MIN 3 VIEWS COMPARISON: None FINDINGS: Bones: Bone demineralization. No acute fracture. Deformity from old, healed fracture at the mid 5th metatarsal diaphysis. Calcaneal spur is present. Joints: Mild joint space narrowing interphalangeal joint. Pzymsdio-vp-pswwic joint space narrowing, sclerosis with marginal spurring 1st MTP joint. Soft tissues: Atherosclerosis of the vascular structures. RAD/Foot min 3 Views IMPRESSION: No acute abnormality. Fracture deformity of the 5th metatarsal status post healing. 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 Reading Location: [id number] CC: Dr. Neptali Dacosta DO; Dr. 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 [facility] 01-01-2025 Radiology Diagnostic study note [facility] Imaging Services [address] [place], [place] [address] Brain/Head without Contrast MR#: [id number] Acct: [id number] Name: BARBARA GLASS Rep #: [id number] : 1950 F 74 From: Raul Granado MD PCP: Dr. Ed Bowman MD Status: REG E R Study:Brain/Head without Contrast Date of Exa m: 01/01/25 Exam# [id number] Ordering Dr: Amber Pelaez DO PROCEDURE: BRAIN/HEAD [...] hemorrhage is seen. Stable examination. Reading Location: [place] [address] CC: Dr. Samia Pelaez DO; Dr. 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 [facility] 01-01-2025 Radiology Diagnostic study note [facility] Imaging Services [address] [place] [address] Spine Cervical without Contras MR#: [id number] Acct: [id number] Name: BARBARA GLASS Rep #: [id number] : 1950 F 74 From: Dawson Jay MD PCP: Dr. Ed Bowman MD Status: REG E R Study:Spine Cervical without Contras Date of Exam: 01/01/25 Exam# [id number] Ordering Dr: Amber Pelaez DO PROCEDURE: SPINE [...] CANAL OR NEURAL FORAMINAL STENOSIS. Reading Location: [facility] CC: Dr. Samia Pelaez DO; Dr. 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 [facility] 12-12-2024 Radiology Diagnostic study note [facility] Imaging Services [address] [place], [place] [address] Brain/Head without Contrast MR#: [id number] Acct: [id number] Name: BARBARA GLASS Rep #: [id number] : 1950 F 74 From: Ned Serrato MD PCP: Dr. Ed Bowman MD Status: REG C BERENICE Study:Brain/Head without Contrast Date of Exa m: 12/12/24 Exam# [id number] Ordering Dr: Ed Bowman MD PROCEDURE: BRAIN/HEAD [...] as noted. No significant change. Reading Location: [facility] CC: Dr. 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 [facility] Work Phone: 12-05-2024 Hospital Discharg e instructions Additional Instructions Follow-up with primary care physician. Lance need to be removed in 10 to 14 days. [facility] Work Phone: 12-05-2024 Discharge summary [facility] 12-05-2024 Radiology Diagnostic study note [facility] Imaging Services [address] [place] [address] Spine Cervical without Contras MR#: [id number] Acct: [id number] Name: BARBARA GLASS Rep #: [id number] : 1950 F 74 From: Dawson Jay MD PCP: Dr. Ed Bowman MD Status: REG E R Study:Spine Cervical without Contras Date of Exam: 12/05/24 Exam# [id number] Ordering Dr: Dc Melendez DO PROCEDURE: SPINE [...] CANAL OR NEURAL FORAMINAL STENOSIS. Reading Location: [facility] CC: Dr. Dc Francis DO; Dr. 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 [facility] 12-05-2024 Radiology Diagnostic study note [facility] Imaging Services [address] [place] [address] Brain/Head without Contrast MR#: [id number] Acct: [id number] Name: BARBARA GLASS Rep #: [id number] : 1950 F 74 From: Dawson Jay MD PCP: Dr. Ed Bowman MD Status: REG E R Study:Brain/Head without Contrast Date of Exa m: 12/05/24 Exam# [id number] Ordering Dr: Dc Melendez DO PROCEDURE: BRAIN/HEAD [...] CHRONIC CHANGES. NO ACUTE FINDINGS. Reading Location: [facility] CC: Dr. Dc Francis DO; Dr. 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 [facility] 11-26-2024 Discharge summary [facility] 11-26-2024 Radiology Diagnostic study note [facility] Imaging Services [address] [place], [place] [address] Spine Cervical without Contras MR#: [id number] Acct: [id number] Name: BARBARA GLASS Rep #: [id number] : 1950 F 74 From: Laura Mora MD PCP: Dr. Ed Bowman MD Status: REG E R Study:Spine Cervical without Contras Date of Exam: 11/26/24 Exam# [id number] Ordering Dr: Irena Gannon EXAM: CT Cervical [...] changes cervical spine as described. Reading Location: [facility] CC: Dr. Ed Bowman MD; CROW Cooper ~ Oracle Programmer Analyst: Signed [facility] 11-26-2024 Radiology Diagnostic study note [facility] Imaging Services [address] [place] [address] Brain/Head without Contrast MR#: [id number] Acct: [id number] Name: BARBARA GLASS Rep #: [id number] : 1950 F 74 From: Laura Mora MD PCP: Dr. Ed Bowman MD Status: REG E R Study:Brain/Head without Contrast Date of Exa m: 11/26/24 Exam# [id number] Ordering Dr: Irena Gannon EXAM: CT Head [...] change from the prior exam. Reading Location: [facility] CC: Dr. Ed Bowman MD; CROW Cooper ~ Oracle Programmer Analyst: Signed [facility] 11-26-2024 Discharge summary Note Date/Time November 26, 2024 4:29pm [facility] Medical Records Department [address] [place] [address] Emergency Department Summary 11/26/24 MR#: [id number] Acct: [id number] Name: BARBARA GLASS Rep #:[id number] : 1950 74 From: Irena MARIA PCP: Dr. Ed Bowman MD Status:REG E R Location: ED <Statement entered by Ryan Akers DO - 11/26/24 16:29> Patient was seen and examined with physician guest services assistant Qian All components of the history [...] no LOC. She is able to ambulate. [facility] Medical History DVT (deep venous [...] change from the prior exam. Reading Location: [facility] Cervical Spine CT 11/26/24 14:35 IMPRESSION: 1. No acute fracture. 2. No significant change from the prior exam. 3. Degenerative changes cervical spine as described. Reading Location: [facility] Discharge Plan Triage Chief Complaint: [...] return for any other concerns. Print Language: Mongolian Disposition Disposition: Home, Self Care What to do if you have Problems For any increased pain, shortness of breath, bleeding, nausea or vomiting, chestpain, or any unexpected problems, contact your Primary Care Provider. Call [facility] ([phone]) or report to the closest Emergency Room. Call 911 if necessary. 11/26/24 1618 <Electronically signed by Irena MARIA> Cosigner Signature (if applicable): 11/26/24 162 <Electronically signed by Ryan Akers DO> CC: Dr. 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 Ed Bowman MD Status: REG E R Study:Brain/Head without Contrast Date of Exa m: 09/16/24 Exam# [id number] Ordering Dr: Amber Pelaez DO EXAM: BRAIN/HEAD [...] ischemic changes and age-related changes. Reading Location: [facility] CC: Dr. Samia Pelaez DO; Dr. 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 Author Type: Nurse Practitioner Type: Progress Notes Filed: 02/21/2021 11:45 AM Note Text: Subjective HPI Nontoxic appearing female presents urgent care chief complaint left second digit laceration. Duration of symptoms greater than 3 days. 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 [id number] serr (OSTEO BI-FLEX, 5-LOXIN,) 1,500-400-100 mg-unit-mg tab Take 1 tablet by mouth once daily. LIDOCAINE (PF) 100 MG/ML (10 %) IV Not sure of dose, IV lidocaine infusion once monthly FAMILY HISTORY Problem Relation Age of Onset - Heart Mother NH - Cancer Father Lung - Heart Sister NH, stents Social History Tobacco Use - Smoking [...] agrees with plan of care. Pete Melvin APRN.[facility] complaint+Reason for visit Narrative* Chief Complaint COVID-19 INJURY OF HEAD [facility] Work Phone: Discharge summary Author Dc Francis [facility] Note Date/Time December 05, 2024 9:40a m [facility] Medical Records Department [address] [place] [address] Emergency Department Summary 12/05/24 MR#: [id number] Acct: [id number] Name: BARBARA GLASS Rep #:[id number] : 1950 74 From: Dc riosett DO [...] 15 Psych: Cooperative, appropriate mood and affect [facility] Medical History DVT (deep venous [...] acute traumatic injury. Patient tolerated lance well. [place] need to be removed and 10 to [...] CHRONIC CHANGES. NO ACUTE FINDINGS. Reading Location: [facility]--[address] 12/05/24 08:39 IMPRESSION: DEGENERATIVE CHANGES OF THE CERVICAL SPINE. NO EVIDENCE OF SIGNIFICANT OSSEOUS CENTRAL CANAL OR NEURAL FORAMINAL STENOSIS. Reading Location: [facility] Discharge Plan Triage Chief Complaint: Fall ED [...] Restrictions/Additional Instructions: Follow-up with primary care physician. [place] need to be removed in 10 to 14 days. Print Language: Mongolian Disposition Disposition: Home, Self Care What to do if you have Problems For any increased pain, shortness of breath, bleeding, nausea or vomiting, chestpain, or any unexpected problems, contact your Primary Care Provider. Call [facility] ([phone]) or report to the closest Emergency Room. Call 911 if necessary. 12/05/24 0940 <Electronically signed by Dc Francis DO> Cosigner Signature (if applicable): CC: Dr. Ed Bowman MD ~ Signed [facility] Work Phone: Evaluation noteNo assessment information available [facility] Work Phone: Hospital Discharge instructions Additional Instructions Take the antibiotics until finished. Please continue to follow-up.[facility] Work Phone: Hospital Discharge instructions Additional Instructions Follow-up with your PCP and return for any other concerns.[facility] Work Phone: Hospital Discharge instructions Additional Instructions Follow-up with primary care physician. [place] need to be removed in 10 to 14 days.[facility] Work Phone: Hospital Discharge instructionsAdditional Instructions Follow-up with orthopedics regarding your right humerus fracture. Ice the area. You can take Tylenol as needed for pain as well as the oxycodone as needed. Return for any other concerns.[facility] Work Phone: Reason for referral (narrative)No [...] Will No February 21 12:17pm Power of Spray Stainer No February 21, 12:17pm Advance Directive Response Recorded Date/ Time Living Will No April 27 11:58am Power of Spray Stainer No April 27, 2022 11:58am Advance Directive Response Recorded Date/ Time Living Will No January 30, 2023 12:20pm Power of Spray Stainer No January 30 12:20pm Advance Directive Response Recorded Date/ Time Living Will No January 30, 2023 11:20am Power of Spray Stainer No January 30 11:20am Advance Directive Response Recorded Date/ Time Living Will Yes March 12 3:38pm Power of Spray Stainer Yes March 12, 2024 3:38pm Living Will Yes January 10, 2024 1 0:07am Power of Spray Stainer Yes January 10, 2024 10:07am Living Will No June 04 6:44pm Power of Spray Stainer No June 04, 2024 6:44pm Living Will No September 16, 2024 12:00pm Power of Spray Stainer No September 16 12:00pm Advance Directive Response Recorded Date/ Time Living Will Yes March 12 4:38pm Power of Spray Stainer Yes March 12, 2024 4:38pm Living Will Yes January 10, 2024 1 1:07am Power of Spray Stainer Yes January 10, 2024 11:07am Living Will No June 04 7:44pm Power of Spray Stainer No June 04, 2024 7:44pm Living Will No September 16, 2024 1:00pm Power of Spray Stainer No September 16 1:00pm Advance Directive Response Recorded Date/ Time Living Will Yes March 12 4:38pm Do you have a Healthcare Power of Spray Stainer? Yes March 12, 2024 4:38pm Living Will No September 16, 2024 1:00pm Do you have a Healthcare Power of Spray Stainer? No September 16, 2024 1:00pm Do you have a Healthcare Power of Spray Stainer? No November 05, 2024 1:28pm Advance Directive Response Recorded Date/ Time Living Will Yes March 12 4:38pm Do you have a Healthcare Power of Spray Stainer? Yes March 12, 2024 4:38pm Living Will No September 16, 2024 1:00pm Do you have a Healthcare Power of Spray Stainer? No September 16, 2024 1:00pm Do you have a Healthcare Power of Spray Stainer? No November 05, 2024 1:28pm Do you have a Healthcare Power of Spray Stainer? No November 26, 2024 2:49pm Advance Directive Response Recorded Date/ Time Do you have a Healthcare Power of Spray Stainer? No December 05, 2024 8:35am Living Will Yes Erin 1st, 2 024 4:38pm Do you have a Healthcare Power of Spray Stainer? Yes March 12, 2024 4:38pm Living Will No September 16, 2024 1:00pm Do you have a Healthcare Power of Spray Stainer? No September 16, 2024 1:00pm Do you have a Healthcare Power of Spray Stainer? No November 05, 2024 1:28pm Do you have a Healthcare Power of Spray Stainer? No November 26, 2024 2:49pm Advance Directive Response Recorded Date/ Time Do you have a Healthcare Power of Spray Stainer? No December 05, 2024 8:35am Do you have a Healthcare Power of Spray Stainer? Yes January 01, 2025 1:43pm Living Will Yes March 12 4:38pm Do you have a Healthcare Power of Spray Stainer? Yes March 12, 2024 4:38pm Living Will No September 16, 2024 1:00pm Do you have a Healthcare Power of Spray Stainer? No September 16, 2024 1:00pm Do you have a Healthcare Power of Spray Stainer? No November 05, 2024 1:28pm Do you have a Healthcare Power of Spray Stainer? No November 26, 2024 2:49pm Advance Directive Response Recorded Date/ Time Do you have a Healthcare Power of Spray Stainer? No December 05, 2024 8:35am Do you have a Healthcare Power of Spray Stainer? Yes January 01, 2025 1:43pm Living Will Yes March 12 4:38pm Do you have a Healthcare Power of Spray Stainer? Yes March 12, 2024 4:38pm Do you have a Healthcare Power of Spray Stainer? No November 05, 2024 1:28pm Do you have a Healthcare Power of Spray Stainer? No November 26, 2024 2:49pm Do you have a Healthcare Power of Spray Stainer? Yes February 02, 2025 4:33pm Advance Directive Response Recorded Date/ Time Do you have a Healthcare Power of Spray Stainer? No December 05, 2024 8:35am Do you have a Healthcare Power of Spray Stainer? Yes January 01, 2025 1:43pm Do you have a Healthcare Power of Spray Stainer? Yes March 08, 2025 1:02pm Name of Medical Power of Spray Stainer Kale Glass March 08, 2025 1:02pm Living Will Yes March 12, 2 024 4:38pm Do you have a Healthcare Power of Spray Stainer? Yes March 12, 2024 4:38pm Do you have a Healthcare Power of Spray Stainer? No November 26, 2024 2:49pm Do you have a Healthcare Power of Spray Stainer? Yes February 02, 2025 4:33pm Chief Complaint [...] and content) DATE CREATED AUTHOR 08/24/2021 [facility] DATE CREATED AUTHOR AUTHOR'S ORGANIZ ATION 08/28/2021 [facility] DATE CREATED AUTHOR AUTHOR'S ORGANIZ ATION 02/10/2025 [facility] DATE CREATED AUTHOR AUTHOR'S ORGANIZ ATION 02/28/2025 [facility] Goals (unrecognized section and content) Goals may [...] Inactive Member Role Status Dates Dr. Ed Bowmna MD Primary Care Provider Active Start: June [...] Inactive Member Role Status Dates Dr. Ed Bowmna MD Primary Care Provider Active Start: December [...] BE BASED ON THE PRIMARY CLINICAL RECORDS. [facility]. provides no warranty or guarantee of the accuracy or completeness of information in this document.
[2025-03-08 20:32] VITALS: PULSE 84; RESP 16; O2SAT 93
[2025-03-08] MEDS: MELATONIN 10 MG TABLET PO (20:56)
[2025-03-08] MEDS: Tolterodine Tartrate 4 MG CAP.SA PO (20:56)
[2025-03-08] MEDS: Senna/Docusate Sodium 1 Tablet 2 TABLET PO (20:57)
[2025-03-08] MEDS: DOXEPIN HCL 50 MG CAPSULE PO (21:03)
[2025-03-08 21:43] LABS: CPK Total, Creatine Kinase 38 U/L (24-195)
[2025-03-09] VITALS (8 sets, daily range): BP systolic 131–147; BP diastolic 68–93; PULSE 69–85; RESP 16–18; TEMP 36.5–37.1; O2SAT 92–95
[2025-03-09 06:25] LABS: Hematocrit 41.2 % (37-47); Hemoglobin 13.6 g/dL (12.0-15.0); Immature Granulocytes Count 0.100 X10^3/uL (0.0-0.0); Mean Corp Hgb Conc 33.0 g/dL (32-36); Mean Corpuscular Volume 90.9 fL (81-99); Mean Platelet Vol. 9.5 fl (6.2-12.0); NRBC Flagged by Analyzer 0 % (0-5); Platelet Count 232 K/mm3 (150-450); RBC Distribution Width CV 13.8 % (11.6-14.6); RBC Distribution Width SD 46.2 fl (35.1-43.9); Red Blood Count 4.53 M/mm3 (4.2-5.4); White Blood Count 10.1 K/mm3 (4.4-11.0)
[2025-03-09 06:56] LABS: Anion Gap 12 (5-15); BUN 25 mg/dL (4-19); BUN/Creat Ratio 25.4 RATIO (10-20); Calcium,Total 9.2 mg/dL (7.6-11.0); Carbon Dioxide 24.7 mmol/L (21.0-32.0); Chloride 105 mmol/L (98-108); Estimated Creatinine Clearance 50.40 ml/min (50-250); Glucose 109 mg/dL (70-99); Potassium 3.6 mmol/L (3.3-5.1)
[2025-03-09] MEDS: Senna/Docusate Sodium 1 Tablet 2 TABLET PO ×2 (09:54→21:25)
[2025-03-09] MEDS: Tolterodine Tartrate 4 MG CAP.SA PO ×2 (09:54→21:25)
--- NOTE | 2025-03-09 10:12 | CASEMGMT ---
Addendum entered by Lincoln Alberto 03/09/25 15:24: 0700 deleted. PASRR completed via the [employer]. Level II is not required. Forms placed in pt's chart. Addendum entered by Lincoln Alberto 03/09/25 14:40: See DPA note. MEY SARGENT to the pt room at this time and updated that [facility] have accepted and that precert is pending. Pt states that she will call and update her son. Pt denies further questions or concerns. 0700 started in [employer]. Transport form initiated. Green Sheet placed on the chart to facilitate weekend DC. Addendum [facility] by [facility] 03/09/25 12:54: [facility] dot compliance coordinator states that they do not have any bed availability and no planned DC's. Pt notified and states that she is OK with [facility]. Hospitalist notified. Hospitalist states that precert can be initiated. [facility] DPA notified and plans to send referral to [facility]. CM to follow. Addendum entered by Lincoln Alberto 03/09/25 12:10: Hospitalist has been updated with the below information Addendum entered by [facility] 03/09/25 11:23: [facility] TCU dot compliance coordinator states that they will likely be able to accept the pt but they will likely not have a bed available for a couple of days. MEY SARGENT to the pt room at this time. Pt states that she still prefers [facility] as her number 1 option. Pt states that [facility] would be her second preference if [facility] is unable to accept. Addendum entered by Lincoln Alberto 03/09/25 10:34: Pt wishes to continue reviewing the list for further preferences in the case that TCU cannot accept. Addendum entered by [facility] 03/09/25 10:24: Pt states that her top preference is [facility] TCU as she is a pt of Dr Bowman. Referral sent to the field care coordinator at this time. To follow. Addendum entered by Lincoln Alberto 03/09/25 10:17: [facility] notified of plan. Original Note: PT states to this RN ROSETTA that the pt will likely qualify for a SNF stay after their evaluation. MEY SARGENT to the pt room at this time to discuss DC planning. Pt states that she does not currently feel safe returning home alone. Pt states that she would like to attend a SNF for a short term rehab stay to help the pt return to her PLOF. Pt provided with a list of SNF's provided by the [facility] DPA, see note. Requested the pt to select top 3 preferences for referrals. Pt states understanding and denies any further questions or concerns at this time.
--- NOTE | 2025-03-09 10:16 | CASEMGMT ---
Discharge Planning A list of?SNF providers including quality and resource use data and consistent with the patient's preferred geographic region, medical needs, and insurance network was created in [employer].? This list was provided to the RN ROSETTA. Fidelia An, Discharge Planning Asst.
--- NOTE | 2025-03-09 12:15 | PN.HOSP_ITS ---
Subjective Subjective Pain is controlled, unfortunately she is likely going to need placement due to significant mobility with her right arm fracture Objective Data Objective Data Vital Signs: Vital Signs Temp Pulse Resp BP Pulse Ox O2 Del Method O2 Flow Rate 98.7 F 72 18 131/81 H 94 Nasal Cannula 2 03/09/25 08:00 03/09/25 08:00 03/09/25 08:00 03/09/25 08:00 03/09/25 09:05 03/09/25 09:05 03/09/25 09:05 Oxygen Flow Rate (L/min) 2 Oxygen Delivery Method Nasal Cannula Weight: 187 lb Body Mass Index (BMI) 33.1 Intake & Output: Intake and Output for Last 24 Hours 03/08/25 03/09/25 03/10/25 03:59 03:59 03:59 Intake Total 1000 / 1000 100 / 100 Balance 1000 / 1000 100 / 100 Lab / Micro Data 03/09/25 06:13 03/09/25 06:13 Labs: Laboratory Results - last 24 hr 03/08/25 14:10: WBC 9.3, RBC 4.64, Hgb 14.0, Hct 41.4, MCV 89.2, MCH 30.2, MCHC 33.8, RDW Std Deviation 43.9, RDW Coeff of Larry 13.6, Plt Count 241, MPV 9.4, I mmature Gran % (Auto) 1.300 H, Neut % (Auto) 71.1 H, Lymph % (Auto) 18.0 L, Bucks % (Auto) 8.7, Eos % (Auto) 0.4, Baso % (Auto) 0.5, Absolute Neuts (auto) 6.6, Absolute Lymphs (auto) 1.68, Nucleated RBC % 0, Sodium 142, Potassium 3.5, Chloride 105, Carbon Dioxide 25.8, Anion Gap 11, BUN 24 H, Creatinine 0.95, Estim Creat Clear Calc 55.67, Est GFR (MDRD) Non-Af 62, BUN/Creatinine Ratio 25.6 H, Glucose 132 H, Calcium 9.1, Total Creatine Kinase 38 03/09/25 06:13: WBC 10.1, RBC 4.53, Hgb 13.6, Hct 41.2, MCV 90.9, MCH 30.0, MCHC 33.0, RDW Std Deviation 46.2 H, RDW Coeff of Larry 13.8, Plt Count 232, MPV 9.5, I mmature Gran % (Auto) 1.000 H, Neut % (Auto) 60.8, Lymph % (Auto) 24.9, Bucks % (Auto) 10.8 H, Eos % (Auto) 1.9, Baso % (Auto) 0.6, Absolute Neuts (auto) 6.1, Absolute Lymphs (auto) 2.50, Nucleated RBC % 0, Sodium 141, Potassium 3.6, Chloride 105, Carbon Dioxide 24.7, Anion Gap 12, BUN 25 H, Creatinine 0.98, Estim Creat Clear Calc 50.40, Est GFR (MDRD) Non-Af 60, BUN/Creatinine Ratio 25.4 H, Glucose 109 H, Calcium 9.2 Radiography Diagnostic Testing: Radiology Impression Elbow X-Ray 03/08/25 14:27 IMPRESSION: No acute osseous abnormalities. Reading Location: [id number] Humerus X-Ray 03/08/25 14:27 IMPRESSION: Acute fracture of the surgical neck of the right humerus extending to the greater tubercle. No dislocation of the shoulder joint. Reading Location: [facility] Shoulder X-Ray 03/08/25 14:27 IMPRESSION: Acute fracture of the surgical neck of the right humerus extending to the greater tubercle. Reading Location: [id number] Wrist X-Ray 03/08/25 14:27 IMPRESSION: No acute osseous abnormalities. Reading Location: [id number] Brain CT 03/08/25 14:45 IMPRESSION: 1. Small right sphenoid sinus air-fluid level, possibly due to acute sinusitis. 2. No intracranial hemorrhage is seen. No acute intracranial process is noted. 3. No fracture site is evident. Reading Location: [facility] 03/08/25 14:45 IMPRESSION: DEGENERATIVE CHANGES OF THE CERVICAL SPINE. NO EVIDENCE OF SIGNIFICANT OSSEOUS CENTRAL CANAL OR NEURAL FORAMINAL STENOSIS. Reading Location: [facility] Chest/Abdomen/Pelvis CT 03/08/25 14:45 IMPRESSION: Nondisplaced fracture through the surgical neck of the proximal right humerus with extension into the greater and lesser tuberosities. No rib fracture. Small left renal cysts and mild splenomegaly. Reading Location: [facility] Physical Exam Narrative General: Alert, Oriented x3, Cooperative, No apparent distress HEENT: Atraumatic, PERRLA, EOMI, Normocephalic Oral: Moist Mucosa Neck: Supple, No JVD Lungs: Diminished, Normal air movement, No rhonchi, No wheeze, No rales Cardiovascular: Regular rate, Regular Rhythm, Normal S1, Normal S2, No murmurs Abdomen: Soft, Non Tender, Non-Distended, No Hepato-splenomegaly Extremities: No edema, Capillary Refill Less than 3 Seconds Skin: No rashes, No breakdown Musculoskeletal: Tenderness to palpation of her right arm, current sling Neurological: No focal neurological deficits, moves all extremities other than her right upper extremity secondary to fracture Psych/Mental Status: Normal Affect, Appropriate Assessment & Plan Assessment/Plan (1) Fracture of humerus, right, closed: PLAN: Plan 1. Fall w/ R humerus fracture -CT with nondisplaced fracture through surgical neck of the proximal right humerus with extension into the greater and lesser tuberosities -PT/OT -Given the fracture and patient is admitted will consult Ortho, likely nonoperative -Will check CT given she is down for an hour and feels achy ?Pain management 2. GERD ? Stable -Continue PPI 3. Hypothyroidism ? Stable -Continue Synthroid 4. History of PE ? Resume Eliquis 5. Essential hypertension -Blood pressure stable ? Resume her home medications ? Will monitor make adjustments as necessary DVT: Eliquis Charges/Coding Visit Charges Inpatient E&M: 85579 Subs Hosp L2
--- NOTE | 2025-03-09 12:28 | CON.PCM.OR_ITS ---
HPI Consult Data Date of Consult: 03/09/25 HPI Narrative HPI Narrative: BARBARA HERNANDEZ, is a pleasant 74 yo F ortho consult requested after admitted after a fall and proximal right humerus fracture. Fracture is nondisplaced, mildly comminuted. No prior injuries to shoulder or humerus. Patient is right-hand dominant. Patient states symptoms are well-controlled with current pain medications and sling. Using ice as needed for pain and swelling. Also reports some discomfort in the wrist with range of motion, guarded motion at elbow, full motion of hand and distal joints. Patient lives at home alone with a support dog. Patient states concern for returning home with this injury. Hx of falls and leg weakness secondary to back issues, sees pain mgmt. [facility] Medical History DVT (deep venous thrombosis) Staphylococcus aureus infection Macular degeneration Bilateral pulmonary embolism Depression History of kidney stones Acute calculous cholecystitis Laceration of left index finger Pulmonary emboli Hypoxia Elevated troponin Pulmonary embolism and infarction Fracture of left foot Episode of syncope Fibromyalgia Anxiety Home Medications ?Medication ?Instructions ?Recorded ?Last Taken ?Type hydrocodone 7.5 mg-acetaminophen 1 tab PO TID PRN PRN pain 12/15/23 03/12/24 10:00 History 325 mg tablet levothyroxine 25 mcg tablet 25 mcg PO DAILY thyroid 03/11/24 History cholecalciferol (vitamin D3) 25 25 mcg PO DAILY supple ment 02/23/24 03/06/24 History mcg (1,000 unit) capsule doxepin 50 mg capsule 50 mg PO QHS 07/18/24 Unknow n History vitamin B complex 1 cap PO QDAY 07/18/24 Unkno wn History apixaban 5 mg (74 tabs) tablets in 5 mg PO UD 12/05/24 Unknown History a dose pack (Eliquis DVT-PE Treat 30D Start) tolterodine 4 mg capsule,extended 4 mg PO BID 01/01/25 Unknown History release 24 hr apixaban 5 mg tablet (Eliquis) 5 mg PO BID 03/08/25 Un known History losartan 100 mg tablet 100 mg PO QHS 03/08/25 Unkno wn History pantoprazole 40 mg tablet,delayed 40 mg PO DAILY 03/08 Unknown History release Allergy/AdvReac Type Severity Reaction Status Date / Time No Known Allergies Allergy Verified 03/08/25 13:01 Family History Mother Myocardial infarction Sister Diabetes Cancer Sister No problems noted. Father Cancer Surgical History S/P tonsillectomy S/P appendectomy S/P excision of ganglion cyst History of partial hysterectomy History of cholecystectomy Social History Smoking Status: Never smoker alcohol intake: never substance use type: does not use ROS Constitutional Constitutional: Reports systems reviewed and no addt'l complaints, except as documented and as per HPI Cardiovascular Cardiovascular: Denies chest pain Respiratory/Chest Respiratory/Chest: Denies chest tightness or cough Gastrointestinal Gastrointestinal: Denies nausea or vomiting Musculoskeletal Musculoskeletal: Reports as per HPI, joint pain, joint swelling and limited range of motion Neurologic Neurologic: Reports systems reviewed and no addt'l complaints, except as documented Vital Signs Vital Signs Vital Signs: 03/08/25 12:59 03/08/25 13:02 03/08/25 14:58 Temperature 98.7 F Temperature Source Oral Pulse Rate 85 73 Pulse Strength Respiratory Rate 15 18 Respiratory Effort Normal Non-Labored Respiratory Depth Normal Respiratory Pattern Normal Blood Pressure 161/87 H 142/72 H Blood Pressure Mean 111 95 Blood Pressure Source Blood Pressure Position Blood Pressure Location Pulse Ox 100 99 Oxygen Delivery Method Room Air Room Air Room Air Oxygen Flow Rate (L/min) 03/08/25 16:00 03/08/25 16:47 03/08/25 18:38 Temperature 97.6 F L 98.8 F Temperature Source Oral Pulse Rate 78 69 84 Pulse Strength Respiratory Rate 14 14 18 Respiratory Effort Respiratory Depth Respiratory Pattern Blood Pressure 156/89 H 137/81 H 148/98 H Blood Pressure Mean 111 99 114 Blood Pressure Source Monitor Blood Pressure Position Sitting Blood Pressure Location Left Arm Pulse Ox 97 96 95 Oxygen Delivery Method Room Air Room Air Oxygen Flow Rate (L/min) 03/08/25 20:32 03/08/25 22:00 03/08/25 23:53 Temperature Temperature Source Pulse Rate 84 Pulse Strength Normal (2+) Respiratory Rate 16 Respiratory Effort Normal Respiratory Depth Normal Respiratory Pattern Normal Blood Pressure Blood Pressure Mean Blood Pressure Source Blood Pressure Position Blood Pressure Location Pulse Ox 93 Oxygen Delivery Method Nasal Cannula Nasal Cannula Oxygen Flow Rate (L/min) 3 03/09/25 00:30 03/09/25 02:00 03/09/25 05:55 Temperature 97.9 F 97.7 F L Temperature Source Oral Oral Pulse Rate 84 84 69 Pulse Strength Respiratory Rate 16 16 16 Respiratory Effort Normal Respiratory Depth Normal Respiratory Pattern Normal Blood Pressure 147/93 H 132/68 H Blood Pressure Mean 111 89 Blood Pressure Source Monitor Monitor Blood Pressure Position Semi-Fowlers Semi-Fowlers Blood Pressure Location Left Arm Left Arm Pulse Ox 93 93 93 Oxygen Delivery Method Nasal Cannula Nasal Cannula Nasal Cannula Oxygen Flow Rate (L/min) 2 2 93 03/09/25 08:00 03/09/25 08:00 03/09/25 09:05 Temperature 98.7 F Temperature Source Oral Pulse Rate 72 Pulse Strength Respiratory Rate 18 Respiratory Effort Respiratory Depth Respiratory Pattern Blood Pressure 131/81 H Blood Pressure Mean 97 Blood Pressure Source Monitor Blood Pressure Position Semi-Fowlers Blood Pressure Location Left Arm Pulse Ox 94 94 Oxygen Delivery Method Room Air Room Air Nasal Cannula Oxygen Flow Rate (L/min) 2 03/09/25 10:00 Temperature Temperature Source Pulse Rate Pulse Strength Normal (2+) Respiratory Rate Respiratory Effort Respiratory Depth Respiratory Pattern Blood Pressure Blood Pressure Mean Blood Pressure Source Blood Pressure Position Blood Pressure Location Pulse Ox Oxygen Delivery Method Oxygen Flow Rate (L/min) Weight Weight: 187 lb Body Mass Index (BMI) 33.1 Physical Exam Const alert, oriented x3 and no apparent distress General Appearance: cooperative and comfortable HEENT Head and Scalp: other Other Details: Ecchymosis to right cheek and right forehead region Eyes General Eye: normal appearance of both eyes Neck full ROM Neck Narrative: No shoulder or arm pain aggravation with full range of motion of neck in all directions No paresthesias present Resp Effort and Inspection: able to speak in complete sentences Extremity Right Upper Extremity: shoulder joint Shoulder Joint Exam - Right: inspection (Holding upper arm in guarded position against body, mild swelling and faint ecchymosis at proximal humerus), palpation (Tender with palpation), neurovascular exam (Distal motor or sensory intact with brisk cap refill at 2 seconds), other (Patient with full range of motion of hand and fingers, slightly limited flexion extension of the wrist secondary to some discomfort at the radial aspect of the wrist with no swelling or discoloration present. No pain with palpation or slight flexion at the elbow, hesitant to attempt flexion extensi) and special tests (Deferred) Lab / Micro Data 03/09/25 06:13 03/09/25 06:13 Labs: Laboratory Results - last 24 hr 03/08/25 14:10: WBC 9.3, RBC 4.64, Hgb 14.0, Hct 41.4, MCV 89.2, MCH 30.2, MCHC 33.8, RDW Std Deviation 43.9, RDW Coeff of Larry 13.6, Plt Count 241, MPV 9.4, I mmature Gran % (Auto) 1.300 H, Neut % (Auto) 71.1 H, Lymph % (Auto) 18.0 L, [place] % (Auto) 8.7, Eos % (Auto) 0.4, Baso % (Auto) 0.5, Absolute Neuts (auto) 6.6, Absolute Lymphs (auto) 1.68, Nucleated RBC % 0, Sodium 142, Potassium 3.5, Chloride 105, Carbon Dioxide 25.8, Anion Gap 11, BUN 24 H, Creatinine 0.95, Estim Creat Clear Calc 55.67, Est GFR (MDRD) Non-Af 62, BUN/Creatinine Ratio 25.6 H, Glucose 132 H, Calcium 9.1, Total Creatine Kinase 38 03/09/25 06:13: WBC 10.1, RBC 4.53, Hgb 13.6, Hct 41.2, MCV 90.9, MCH 30.0, MCHC 33.0, RDW Std Deviation 46.2 H, RDW Coeff of Larry 13.8, Plt Count 232, MPV 9.5, I mmature Gran % (Auto) 1.000 H, Neut % (Auto) 60.8, Lymph % (Auto) 24.9, [place] % (Auto) 10.8 H, Eos % (Auto) 1.9, Baso % (Auto) 0.6, Absolute Neuts (auto) 6.1, Absolute Lymphs (auto) 2.50, Nucleated RBC % 0, Sodium 141, Potassium 3.6, Chloride 105, Carbon Dioxide 24.7, Anion Gap 12, BUN 25 H, Creatinine 0.98, Estim Creat Clear Calc 50.40, Est GFR (MDRD) Non-Af 60, BUN/Creatinine Ratio 25.4 H, Glucose 109 H, Calcium 9.2 Imaging Radiology Impression Elbow X-Ray 03/08/25 14:27 IMPRESSION: No acute osseous abnormalities. Reading Location: [id number] Humerus X-Ray 03/08/25 14:27 IMPRESSION: Acute fracture of the surgical neck of the right humerus extending to the greater tubercle. No dislocation of the shoulder joint. Reading Location: [facility] Shoulder X-Ray 03/08/25 14:27 IMPRESSION: Acute fracture of the surgical neck of the right humerus extending to the greater tubercle. Reading Location: [facility] Wrist X-Ray 03/08/25 14:27 IMPRESSION: No acute osseous abnormalities. Reading Location: [facility] Brain CT 03/08/25 14:45 IMPRESSION: 1. Small right sphenoid sinus air-fluid level, possibly due to acute sinusitis. 2. No intracranial hemorrhage is seen. No acute intracranial process is noted. 3. No fracture site is evident. Reading Location: [facility] 03/08/25 14:45 IMPRESSION: DEGENERATIVE CHANGES OF THE CERVICAL SPINE. NO EVIDENCE OF SIGNIFICANT OSSEOUS CENTRAL CANAL OR NEURAL FORAMINAL STENOSIS. Reading Location: [id number] Chest/Abdomen/Pelvis CT 03/08/25 14:45 IMPRESSION: Nondisplaced fracture through the surgical neck of the proximal right humerus with extension into the greater and lesser tuberosities. No rib fracture. Small left renal cysts and mild splenomegaly. Reading Location: [id number] Assessment & Plan Assessment/Plan (1) Closed fracture of right proximal humerus: QUALIFIERS: Encounter type: initial encounter Fracture alignment: nondisplaced Fracture morphology: other fracture Qualified Code(s): S42.294A - Other nondisplaced fracture of upper end of right humerus, initial encounter for closed fracture PLAN: Independent review of humerus and shoulder x-rays completed on date of visit, collaborated findings with Dr. Ferrari. Patient has a proximal right humerus fracture with no displacement. Mild comminution at the fracture site. PLAN: Plan Continue sling for support of the right. Discussed propping and positioning. Conservative treatment indicated. Patient may perform full range of motion of the elbow and distal joints as needed May come out of the sling as needed with gentle forward flexion and abduction 10 to 20 degrees as tolerated Ice and pain medications as written for symptom control of moderate to severe pain Follow-up in orthopedic office in 2 weeks, sooner for changes or concerns To discuss short-term rehab options, patient lives alone and has concern for being able to care for self and ADLs at home. Patient asking about resuming Eliquis dosing, states it was on hold from the ED. This was discussed with the nurse and to be addressed prior to DC. This document has been transcribed using Revl dictation software. There may be incorrect words, spelling, and punctuation. Charges/Coding Visit Charges Inpatient E&M: 35733 Init Hosp L3
--- NOTE | 2025-03-09 13:19 | CASEMGMT ---
Addendum entered by Fidelia An 03/13/25 08:57: Updates sent to [facility]. Precert remains pending. Fidelia An DC Planning Asst. Addendum entered by Fidelia An 03/09/25 13:36: [facility] has accepted and will submit for precert. [facility] CM updated. Original Note: Discharge Planning Referral sent to [facility]. Fidelia An DC Planning Asst.
[2025-03-09 14:31] LABS: Mucous, Urine 0 SEEN /hpf (<or=2+)
[2025-03-09 15:18] LABS: Color, Urine Yellow (Yellow); Glucose, Dipstick Normal (Normal); Ketone-Dipstick Negative (Negative); Leukocyte Esterase-Dipstick 25 /ul (Negative); Nitrite-Dipstick Negative (Negative); Occult Blood-Urine Negative /ul (Negative); Protein-Dipstick 30 mg/dl (Negative); Specific Gravity, Urine 1.025 (1.002-1.030)
[2025-03-09 15:20] LABS: Urine Bilirubin Dipstick 1 mg/dL (Negative)
[2025-03-09 15:57] LABS: Calcium Oxalate Crystals Ur 2+ /hpf (<or=2+)
[2025-03-09 15:58] LABS: Red Blood Cells-Urine 0-5 SEEN /hpf (0-5); Squamous Epithelial Cells - UA 0-5 SEEN /hpf (5-10); Transitional Epithelial - Ur 0-5 SEEN /hpf (0-5)
[2025-03-09] MEDS: 0.9% Saline Lock 10 ML Syringe IV (18:47)
[2025-03-09] MEDS: APIXABAN 5 MG TABLET PO (21:24)
[2025-03-09] MEDS: DOXEPIN HCL 50 MG CAPSULE PO (21:24)
[2025-03-10 04:17] VITALS: O2SAT 87
[2025-03-10 04:20] VITALS: BP 159/86; PULSE 81; RESP 17; TEMP 36.6; O2SAT 98
[2025-03-10] MEDS: 0.9% Saline Lock 10 ML Syringe IV (04:37)
[2025-03-10 06:53] LABS: Hematocrit 35.2 % (37-47); Hemoglobin 11.6 g/dL (12.0-15.0); Immature Granulocytes Count 0.100 X10^3/uL (0.0-0.0); Mean Corp Hgb Conc 33.0 g/dL (32-36); Mean Corpuscular Volume 90.7 fL (81-99); Mean Platelet Vol. 9.4 fl (6.2-12.0); NRBC Flagged by Analyzer 0 % (0-5); Platelet Count 192 K/mm3 (150-450); RBC Distribution Width CV 13.9 % (11.6-14.6); RBC Distribution Width SD 45.9 fl (35.1-43.9); Red Blood Count 3.88 M/mm3 (4.2-5.4); White Blood Count 8.0 K/mm3 (4.4-11.0)
[2025-03-10 07:40] LABS: Anion Gap 8 (5-15); BUN 27 mg/dL (4-19); BUN/Creat Ratio 30.6 RATIO (10-20); Calcium,Total 8.5 mg/dL (7.6-11.0); Carbon Dioxide 27.0 mmol/L (21.0-32.0); Chloride 106 mmol/L (98-108); Estimated Creatinine Clearance 55.49 ml/min (50-250); Glucose 110 mg/dL (70-99); Potassium 3.9 mmol/L (3.3-5.1)
[2025-03-10 08:38] VITALS: BP 137/77; PULSE 77; RESP 18; TEMP 36.5; O2SAT 92
[2025-03-10] MEDS: Senna/Docusate Sodium 1 Tablet 2 TABLET PO ×2 (08:42→21:35)
[2025-03-10] MEDS: Tolterodine Tartrate 4 MG CAP.SA PO ×2 (08:42→21:34)
[2025-03-10] MEDS: APIXABAN 5 MG TABLET PO ×2 (08:42→21:35)
[2025-03-10 09:35] VITALS: BP 152/90
--- NOTE | 2025-03-10 10:57 | PN.HOSP_ITS ---
Subjective Subjective Doing well, pain is controlled Objective Data Objective Data Vital Signs: Vital Signs Temp Pulse Resp BP Pulse Ox O2 Del Method O2 Flow Rate 97.7 F L 77 18 152/90 H 92 Room Air 2 03/10/25 08:38 03/10/25 08:38 03/10/25 08:38 03/10/25 09:35 03/10/25 08:38 03/10/25 08:38 03/10/25 04:20 Oxygen Flow Rate (L/min) 2 Oxygen Delivery Method Room Air Weight: 187 lb Body Mass Index (BMI) 33.1 Intake & Output: Intake and Output for Last 24 Hours 03/09/25 03/10/25 03/11/25 03:59 03:59 03:59 Intake Total 1000 / 1000 900 / 900 450 / 450 Balance 1000 / 1000 900 / 900 450 / 450 Lab / Micro Data 03/10/25 06:45 03/10/25 06:45 Labs: Laboratory Results - last 24 hr 03/09/25 14:10: Urine Color Yellow, Urine Clarity Cloudy, Urine pH 5.0, Ur Specific [place] 1.025, Urine Protein 30 H, Urine Glucose (UA) Normal, Urine Ketones Negative, Urine Occult Blood Negative, Urine Nitrite Negative, Urine Bilirubin 1 H, Urine Urobilinogen 1 H, Ur Leukocyte Esterase 25 H, Urine RBC 0-5 SEEN, Urine WBC 5-10 SEEN, Ur Squamous Epith Cells 0-5 SEEN, Ur Transition Epith Cell 0-5 SEEN, Calcium Oxalate Crystal 2+, Urine Bacteria 4+, Urine Mucus 0 SEEN 03/10/25 06:45: WBC 8.0, RBC 3.88 L, Hgb 11.6 L, Hct 35.2 L, MCV 90.7, MCH 29.9, MCHC 33.0, RDW Std Deviation 45.9 H, RDW Coeff of Larry 13.9, Plt Count 192, MPV 9.4, Immature Gran % (Auto) 1.300 H, Neut % (Auto) 61.5, Lymph % (Auto) 23.7, M michelle % (Auto) 10.5 H, Eos % (Auto) 2.4, Baso % (Auto) 0.6, Absolute Neuts (auto) 4.9, Absolute Lymphs (auto) 1.89, Nucleated RBC % 0, Sodium 140, Potassium 3.9, Chloride 106, Carbon Dioxide 27.0, Anion Gap 8, BUN 27 H, Creatinine 0.89, Estim Creat Clear Calc 55.49, Est GFR (MDRD) Non-Af 67, BUN/Creatinine Ratio 30.6 H, G lucose 110 H, Calcium 8.5 Physical Exam Narrative General: Alert, Oriented x3, Cooperative, No apparent distress HEENT: Atraumatic, PERRLA, EOMI, Normocephalic Oral: Moist Mucosa Neck: Supple, No JVD Lungs: Diminished, Normal air movement, No rhonchi, No wheeze, No rales Cardiovascular: Regular rate, Regular Rhythm, Normal S1, Normal S2, No murmurs Abdomen: Soft, Non Tender, Non-Distended, No Hepato-splenomegaly Extremities: No edema, Capillary Refill Less than 3 Seconds Skin: No rashes, No breakdown Musculoskeletal: Tenderness to palpation of her right arm, current sling Neurological: No focal neurological deficits, moves all extremities other than her right upper extremity secondary to fracture Psych/Mental Status: Normal Affect, Appropriate Assessment & Plan Assessment/Plan (1) Fracture of humerus, right, closed: PLAN: Plan 1. Fall w/ R humerus fracture -CT with nondisplaced fracture through surgical neck of the proximal right humerus with extension into the greater and lesser tuberosities -PT/OT -Given the fracture and patient is admitted will consult Ortho, nonoperative ?Pain management 2. GERD ? Stable -Continue PPI 3. Hypothyroidism ? Stable -Continue Synthroid 4. History of PE ? Resume Eliquis 5. Essential hypertension -Blood pressure stable ? Resume her home medications ? Will monitor make adjustments as necessary DVT: Eliquis Charges/Coding Visit Charges Inpatient E&M: 15374 Subs Hosp L2
[2025-03-10 13:48] VITALS: BP 140/81; PULSE 90; RESP 18; TEMP 36.6; O2SAT 98
[2025-03-10 21:11] VITALS: BP 156/91; PULSE 87; RESP 18; TEMP 37.3; O2SAT 92
[2025-03-10] MEDS: DOXEPIN HCL 50 MG CAPSULE PO (21:35)
[2025-03-11] VITALS (7 sets, daily range): BP systolic 146–168; BP diastolic 73–93; PULSE 77–85; RESP 16–19; TEMP 36.5–37.3; O2SAT 90–97
[2025-03-11] MEDS: Senna/Docusate Sodium 1 Tablet 2 TABLET PO ×2 (08:24→21:32)
[2025-03-11] MEDS: Tolterodine Tartrate 4 MG CAP.SA PO ×2 (08:25→21:32)
[2025-03-11] MEDS: APIXABAN 5 MG TABLET PO ×2 (08:25→21:32)
--- NOTE | 2025-03-11 09:48 | PCM.PN.HOSP ---
Subjective Subjective Doing well, pain is controlled. Awaiting placement Objective Data Objective Data Vital Signs: Vital Signs Temp Pulse Resp BP Pulse Ox O2 Del Method O2 Flow Rate 97.8 F 77 16 162/82 H 95 Room Air 2 03/11/25 08:43 03/11/25 08:43 03/11/25 08:43 03/11/25 08:43 03/11/25 08:43 03/11/25 08:43 03/11/25 02:15 Oxygen Flow Rate (L/min) 2 Oxygen Delivery Method Room Air Weight: 187 lb Body Mass Index (BMI) 33.1 Intake & Output: Intake and Output for Last 24 Hours 03/10/25 03/11/25 03/12/25 03:59 03:59 03:59 Intake Total 900 / 900 1730 / 1730 200 / 200 Balance 900 / 900 1730 / 1730 200 / 200 Lab / Micro Data 03/10/25 06:45 03/10/25 06:45 Physical Exam Narrative General: Alert, Oriented x3, Cooperative, No apparent distress HEENT: Atraumatic, PERRLA, EOMI, Normocephalic Oral: Moist Mucosa Neck: Supple, No JVD Lungs: Diminished, Normal air movement, No rhonchi, No wheeze, No rales Cardiovascular: Regular rate, Regular Rhythm, Normal S1, Normal S2, No murmurs Abdomen: Soft, Non Tender, Non-Distended, No Hepato-splenomegaly Extremities: No edema, Capillary Refill Less than 3 Seconds Skin: No rashes, No breakdown Musculoskeletal: Tenderness to palpation of her right arm, current sling Neurological: No focal neurological deficits, moves all extremities other than her right upper extremity secondary to fracture Psych/Mental Status: Normal Affect, Appropriate Assessment & Plan Assessment/Plan (1) Fracture of humerus, right, closed: PLAN: Plan 1. Fall w/ R humerus fracture -CT with nondisplaced fracture through surgical neck of the proximal right humerus with extension into the greater and lesser tuberosities -PT/OT -Given the fracture and patient is admitted will consult Ortho, nonoperative ?Pain management ? Discharge delayed by pre-CERT and holiday weekend, she was stable for discharge on 03/09/2025 2. GERD ? Stable -Continue PPI 3. Hypothyroidism ? Stable -Continue Synthroid 4. History of PE ? Resume Eliquis 5. Essential hypertension -Blood pressure stable ? Resume her home medications ? Will monitor make adjustments as necessary DVT: Eliquis Charges/Coding Visit Charges Inpatient E&M: 40858 Subs Hosp L1
[2025-03-11] MEDS: DOXEPIN HCL 50 MG CAPSULE PO (21:32)
[2025-03-12 03:01] VITALS: BP 145/83; PULSE 73; RESP 18; TEMP 36.3; O2SAT 93
[2025-03-12 08:32] VITALS: O2SAT 95
[2025-03-12 08:58] VITALS: BP 143/80; PULSE 80; RESP 18; TEMP 36.6; O2SAT 98
--- NOTE | 2025-03-12 09:02 | PCM.PN.HOSP ---
Subjective Subjective Doing well no issues overnight Objective Data Objective Data Vital Signs: Vital Signs Temp Pulse Resp BP Pulse Ox O2 Del Method O2 Flow Rate 98 F 80 18 143/80 H 98 Room Air 2 03/12/25 08:58 03/12/25 08:58 03/12/25 08:58 03/12/25 08:58 03/12/25 08:58 03/12/25 08:58 03/12/25 08:32 FiO2 93 03/12/25 02:56 Oxygen Flow Rate (L/min) 2 Oxygen Delivery Method Room Air Weight: 187 lb Body Mass Index (BMI) 33.1 Intake & Output: Intake and Output for Last 24 Hours 03/11/25 03/12/25 03/13/25 03:59 03:59 03:59 Intake Total 1730 / 1730 1400 / 1400 200 / 200 Balance 1730 / 1730 1400 / 1400 200 / 200 Lab / Micro Data 03/10/25 06:45 03/10/25 06:45 Micro: Microbiology 03/09/25 14:22 Urine, Clean Catch Urine Culture - Final Mixed Gram Positive Organisms Physical Exam Narrative General: Alert, Oriented x3, Cooperative, No apparent distress HEENT: Atraumatic, PERRLA, EOMI, Normocephalic Oral: Moist Mucosa Neck: Supple, No JVD Lungs: Diminished, Normal air movement, No rhonchi, No wheeze, No rales Cardiovascular: Regular rate, Regular Rhythm, Normal S1, Normal S2, No murmurs Abdomen: Soft, Non Tender, Non-Distended, No Hepato-splenomegaly Extremities: No edema, Capillary Refill Less than 3 Seconds Skin: No rashes, No breakdown Musculoskeletal: Tenderness to palpation of her right arm, current sling Neurological: No focal neurological deficits, moves all extremities other than her right upper extremity secondary to fracture Psych/Mental Status: Normal Affect, Appropriate Assessment & Plan Assessment/Plan (1) Fracture of humerus, right, closed: PLAN: Plan 1. Fall w/ R humerus fracture -CT with nondisplaced fracture through surgical neck of the proximal right humerus with extension into the greater and lesser tuberosities -PT/OT -Given the fracture and patient is admitted will consult Ortho, nonoperative ?Pain management ? Discharge delayed by pre-CERT and holiday weekend, she was stable for discharge on 03/09/2025 2. GERD ? Stable -Continue PPI 3. Hypothyroidism ? Stable -Continue Synthroid 4. History of PE ? Resume Eliquis 5. Essential hypertension -Blood pressure stable ? Resume her home medications ? Will monitor make adjustments as necessary DVT: Eliquis Charges/Coding Visit Charges Inpatient E&M: 69082 Subs Hosp L1
[2025-03-12] MEDS: Tolterodine Tartrate 4 MG CAP.SA PO ×2 (09:07→22:07)
[2025-03-12] MEDS: Senna/Docusate Sodium 1 Tablet 2 TABLET PO (09:07)
[2025-03-12] MEDS: APIXABAN 5 MG TABLET PO ×2 (09:07→22:07)
[2025-03-12 09:13] VITALS: PULSE 80; RESP 18; O2SAT 94
[2025-03-12 15:00] VITALS: BP 133/80; PULSE 80; PULSE 85; RESP 18; TEMP 36.8; O2SAT 96
[2025-03-12 21:00] VITALS: BP 158/80; PULSE 81; RESP 18; TEMP 37.2; O2SAT 95
[2025-03-12] MEDS: 0.9% Saline Lock 10 ML Syringe IV (22:07)
[2025-03-12] MEDS: DOXEPIN HCL 50 MG CAPSULE PO (22:07)
[2025-03-13 03:12] VITALS: BP 131/92; PULSE 78; RESP 18; TEMP 36.6; O2SAT 94
--- NOTE | 2025-03-13 07:59 | PCM.TXEXTCAR ---
Diet Diet Order/Speech Therapy: INPATIENT Hospital Diet / Speech Therapy Order(s) 03/08/25 20:32 Diet: Regular - General Food consistency:: Regular Liquid Consistency:: Regular/Thin Routine Orders/Code Status Routine Lab Work: CBC and BMP Code Status: Full Code DC O2, CPAP, BIPAP needs Home O2 Discharge instructions: No Wound(s) left wrist: Wound Type: Skin Tear right buttock: Wound Type: Abrasion Therapies Weight Bearing: Non weight bearing Extremity Affected:: Right Upper Physical Therapy: Eval and Treat Occupational Therapy: Eval and Treat Problem/Diagnosis (1) Fracture of humerus, right, closed: Status: Acute Code(s): S42.301A - Unspecified fracture of shaft of humerus, right arm, initial encounter for closed fracture Plan 1. Fall w/ R humerus fracture -CT with nondisplaced fracture through surgical neck of the proximal right humerus with extension into the greater and lesser tuberosities -PT/OT -Given the fracture and patient is admitted will consult Ortho, nonoperative ?Pain management ? Discharge delayed by pre-CERT and holiday weekend, she was stable for discharge on 03/09/2025 2. GERD ? Stable -Continue PPI 3. Hypothyroidism ? Stable -Continue Synthroid 4. History of PE ? Resume Eliquis 5. Essential hypertension -Blood pressure stable ? Resume her home medications ? Will monitor make adjustments as necessary DVT: Eliquis Allergies/Procedures Done in Hospital Allergies No Known Allergies Allergy (Verified 03/08/25 13:01) Procedures: None Type of Care/Length of Stay Estimated LOS: Convalescent Care Less Than 30 days Type of Care Needed: Skilled Rehab Potential: Good Prognosis: Good Additional Orders/Day of Discharge Day of Discharge: 03/13/25 Discharge Plan Admission Admit Date/Time: 03/08/25 17:32 Attending Provider: Alf Asencio Primary Care Provider: Ed Bowman Chi Consulting Providers: Rubi Freire; Michael Ferrari Instructions Patient Instructions: ED Fracture, Upper Extremity, ED Head Injury (Adult), ED Bruise, Rib, ED Fall Prevention Additional Instructions / Restrictions: Follow-up with orthopedics regarding your right humerus fracture. Ice the area. You can take Tylenol as needed for pain as well as the oxycodone as needed. Return for any other concerns. Discharge Orders/Prescriptions Prescriptions: New oxycodone 5 mg Tablet 5 mg PO Q4H PRN PRN (Reason: Pain Score 4-10) 3 Days Qty: 10 0RF Continued cholecalciferol (vitamin D3) 25 mcg (1,000 unit) capsule 25 mcg PO DAILY doxepin 50 mg capsule 50 mg PO QHS vitamin B complex Capsule 1 cap PO QDAY tolterodine 4 mg capsule,extended release 24hr 4 mg PO BID pantoprazole 40 mg tablet,delayed release (DR/EC) 40 mg PO DAILY losartan 100 mg tablet 100 mg PO QHS Eliquis 5 mg tablet 5 mg PO BID levothyroxine 25 mcg tablet 25 mcg PO DAILY Discontinued Eliquis DVT-PE Treat 30D Start 5 mg (74 tabs) tablets,dose pack 5 mg PO UD hydrocodone-acetaminophen 7.5-325 mg tablet 1 tab PO TID PRN PRN (Reason: pain) Referrals / Follow Up: Michael Ferrari MD [Med Staff - Active Staff] - 5-7 Days Ed Bowman Chi, MD [Primary Care Provider] - Disposition Disposition (needs filled in before D/C Order can be placed): Custodial Facility
[2025-03-13 08:52] VITALS: BP 155/70; PULSE 72; RESP 16; TEMP 36.4; O2SAT 95
[2025-03-13] MEDS: Tolterodine Tartrate 4 MG CAP.SA PO (09:02)
[2025-03-13] MEDS: APIXABAN 5 MG TABLET PO (09:02)
--- NOTE | 2025-03-13 09:41 | PCM.PN.HOSP ---
Subjective Subjective No issues overnight, awaiting pre-CERT Objective Data Objective Data Vital Signs: Vital Signs Temp Pulse Resp BP Pulse Ox O2 Del Method O2 Flow Rate 97.6 F L 72 16 155/70 H 95 Room Air 2 03/13/25 08:52 03/13/25 08:52 03/13/25 08:52 03/13/25 08:52 03/13/25 08:52 03/13/25 08:56 03/12/25 08:32 FiO2 93 03/12/25 02:56 Oxygen Flow Rate (L/min) 2 Oxygen Delivery Method Room Air Weight: 187 lb Body Mass Index (BMI) 33.1 Intake & Output: Intake and Output for Last 24 Hours 03/12/25 03/13/25 03/14/25 03:59 03:59 03:59 Intake Total 1400 / 1400 800 / 800 Balance 1400 / 1400 800 / 800 Lab / Micro Data 03/10/25 06:45 03/10/25 06:45 Micro: Microbiology 03/09/25 14:22 Urine, Clean Catch Urine Culture - Final Mixed Gram Positive Organisms Physical Exam Narrative General: Alert, Oriented x3, Cooperative, No apparent distress HEENT: Atraumatic, PERRLA, EOMI, Normocephalic Oral: Moist Mucosa Neck: Supple, No JVD Lungs: Diminished, Normal air movement, No rhonchi, No wheeze, No rales Cardiovascular: Regular rate, Regular Rhythm, Normal S1, Normal S2, No murmurs Abdomen: Soft, Non Tender, Non-Distended, No Hepato-splenomegaly Extremities: No edema, Capillary Refill Less than 3 Seconds Skin: No rashes, No breakdown Musculoskeletal: Tenderness to palpation of her right arm, current sling Neurological: No focal neurological deficits, moves all extremities other than her right upper extremity secondary to fracture Psych/Mental Status: Normal Affect, Appropriate Assessment & Plan Assessment/Plan (1) Fracture of humerus, right, closed: PLAN: Plan 1. Fall w/ R humerus fracture -CT with nondisplaced fracture through surgical neck of the proximal right humerus with extension into the greater and lesser tuberosities -PT/OT -Given the fracture and patient is admitted will consult Ortho, nonoperative ?Pain management ? Discharge delayed by pre-CERT and holiday weekend, she was stable for discharge on 03/09/2025 2. GERD ? Stable -Continue PPI 3. Hypothyroidism ? Stable -Continue Synthroid 4. History of PE ? Resume Eliquis 5. Essential hypertension -Blood pressure stable ? Resume her home medications ? Will monitor make adjustments as necessary DVT: Eliquis Charges/Coding Visit Charges Inpatient E&M: 83998 Subs Hosp L1
[2025-03-13] MEDS: 0.9% Saline Lock 10 ML Syringe IV (10:49)
[2025-03-13 14:16] VITALS: BP 151/86; PULSE 79; RESP 18; TEMP 36.8; O2SAT 93
--- NOTE | 2025-03-13 14:32 | DS.PCM_ITS ---
Providers Date of Admission: 03/08/25 Primary Care Physician: Dr. Ed Bowman MD Consultations 03/08/25 20:32 Consult: Orthopedics Routine Consulting Provider: Micahel Ferrari Reason for Consult: nondisplaced fx through neck of the prox R humerus w/ ext to tuberosities EMERGENT Consult: No MD Notified: Yes Date Notified: 03/08/25 Time Notified: 18:41 Method of Notification: Verbal Reason For Visit: FALL, RIGHT ARM FRACTURE, GENERALIZED WEAKNESS Diagnosis Discharge Diagnosis (1) Fracture of humerus, right, closed: Status: Acute Code(s): S42.301A - Unspecified fracture of shaft of humerus, right arm, initial encounter for closed fracture Medications at Discharge Home Medications levothyroxine 25 mcg tablet 25 mcg PO DAILY thyroid 12/15/23 cholecalciferol (vitamin D3) 25 mcg (1,000 unit) capsule 25 mcg PO DAILY supplement 02/23/24 doxepin 50 mg capsule 50 mg PO QHS 07/18/24 vitamin B complex 1 cap PO QDAY 07/18/24 tolterodine 4 mg capsule,extended release 24 hr 4 mg PO BID 01/01/25 apixaban 5 mg tablet (Eliquis) 5 mg PO BID 03/08/25 losartan 100 mg tablet 100 mg PO QHS 03/08/25 pantoprazole 40 mg tablet,delayed release 40 mg PO DAILY 03/08/25 oxycodone 5 mg tablet 5 mg PO Q4H PRN PRN Pain Score 4-10 3 days #10 tabs 03/13/25 Hospital Course Operations None Procedures None Summary of Care Provided Minutes Spent on Discharge: 33 Hospital Course: Per HPI: BARBARA HERNANDEZ, is a 74-year-old female history of PE, anxiety, fibromyalgia, hypothyroidism, GERD, hypertension who presented to [facility] ED 03/08/2025 due to mechanical fall. She reports that her son never put up the railing on the 4 steps going out of her house and today she tripped and fell down the stairs onto her right shoulder and said the right side of her head did hit the door. Her complaints in the ED were left lateral ribs and right shoulder. In the ED temp 98.7, heart rate of 85 and blood pressure 161/87, respiratory rate 15 and pulse ox 100% on room air. CBC with white blood cell count of 9.3 and hemoglobin 14, BMP with BUN of 24 and a creatinine 0.95, glucose of 132. CT head no acute intracranial process and CT cervical spine degenerative changes with no significant central canal or neural foraminal stenosis. Further scans did show a nondisplaced fracture through the surgical neck of the proximal right humerus with extension into the greater and lesser tuberosities with no rib fractures or other fractures noted. Initial plan was to send patient home however she felt weak and a little lightheaded when she stood up and she did not feel safe to go home so hospitalist contacted for admission. Patient evaluated at bedside and reports she is having pain in her right arm and still has a little bit of pain on the left side of her ribs and some soreness on the right side of her face but denies any numbness, tingling, focal weakness, not feeling lightheaded while sitting down and has no other new or acute complaints. Denied at home any urinary or infectious complaints. Notes that she was down for about an hour and feels a little bit achy. No nausea or abdominal pain. Hospital Course: 1. Status post mechanical fall with a right humerus fracture?74-year-old female presented to the hospital after mechanical fall with a right humeral fracture. She initially was here to be discharged home but she was struggling to ambulate and was nonweightbearing on her right upper extremity because of the fracture. She did have a CT scan of her shoulder with a nondisplaced fracture through the surgical neck of the proximal right humerus. Orthopedic surgery was consulted and stated that she was nonoperative and was to be in the sling for 23 hours a day. Discharge was delayed secondary to pre-CERT and the holiday weekend however we did receive pre-CERT today for [facility] on discharge. I discussed with her the plan for discharge today and she expressed understanding of the risks and benefits of going to the senior care and would like to go today. 2. GERD, hypothyroidism, history of PE, essential hypertension, are all chronic medical conditions which complicate her care. Her home medications were continued where appropriate. Weight / BMI Weight Weight: 187 lb Body Mass Index (BMI) 33.1 ABG / Lab / Microbiology Data 03/10/25 06:45 03/10/25 06:45 Microbiology: Microbiology 03/09/25 14:22 Urine, Clean Catch Urine Culture - Final Mixed Gram Positive Organisms D/C Instructions DC O2, CPAP, BIPAP Needs Home O2 Discharge instructions: No Meaningful Use Info Meaningful Use Meaningful Use Diagnoses (Choose all that apply): None applicable Discharge Plan Admission Admit Date/Time: 03/08/25 17:32 Attending Provider: Alf Asencio Primary Care Provider: Ed Bowman Chi Consulting Providers: Rubi Freire; Michael Ferrari Instructions Patient Instructions: ED Fracture, Upper Extremity, ED Head Injury (Adult), ED Bruise, Rib, ED Fall Prevention Additional Instructions / Restrictions: Follow-up with orthopedics regarding your right humerus fracture. Ice the area. You can take Tylenol as needed for pain as well as the oxycodone as needed. Return for any other concerns. Discharge Orders/Prescriptions Prescriptions: New oxycodone 5 mg Tablet 5 mg PO Q4H PRN PRN (Reason: Pain Score 4-10) 3 Days Qty: 10 0RF Continued cholecalciferol (vitamin D3) 25 mcg (1,000 unit) capsule 25 mcg PO DAILY doxepin 50 mg capsule 50 mg PO QHS vitamin B complex Capsule 1 cap PO QDAY tolterodine 4 mg capsule,extended release 24hr 4 mg PO BID pantoprazole 40 mg tablet,delayed release (DR/EC) 40 mg PO DAILY losartan 100 mg tablet 100 mg PO QHS Eliquis 5 mg tablet 5 mg PO BID levothyroxine 25 mcg tablet 25 mcg PO DAILY Discontinued Eliquis DVT-PE Treat 30D Start 5 mg (74 tabs) tablets,dose pack 5 mg PO UD hydrocodone-acetaminophen 7.5-325 mg tablet 1 tab PO TID PRN PRN (Reason: pain) Referrals / Follow Up: Michael Ferrari MD [Med Staff - Active Staff] - 5-7 Days Ed Bowman Chi, MD [Primary Care Provider] - Disposition Disposition (needs filled in before D/C Order can be placed): Jail Facility Charges/Coding Visit Charges Inpatient E&M: 76673 Disch Hosp >30min
--- NOTE | 2025-03-13 14:36 | CASEMGMT ---
[facility] has obtained auth to admit. SW updated. Fidelia An DC Planning Asst.
--- NOTE | 2025-03-13 14:46 | CASEMGMT ---
Discharge Planning Discharge orders, signed med list, and transport time sent to [facility]. Physicians will transport pt by wheelchair at 3:30p. Pt aware that she will likely be billed for transport. Nursing, SW, pt, and her son (Hardeep) updated. Fidelia An DC Planning Asst.
--- NOTE | 2025-03-13 14:54 | CASEMGMT ---
DC enterprise resource planning consultant notified RN CM of meat pickler time, 3:30 PM to go to [facility]. RN CM notified RN.
--- NOTE | 2025-03-13 15:26 | NURSING ---
report given to Jennifer at [facility]
== END 2025-03-13 16:27 | disposition skilled nursing facility (03) | DRG 563 ==
LOC: ED 17:34 → MS3 18:03
PROVIDERS: Physician Assistant; Admitting Provider Internal Medicine; Emergency Provider Student in an Organized Health Care Education/Training Program; PCP Family Medicine Geriatric Medicine; Visit Provider Family Medicine
DX: S42.214A Unspecified nondisplaced fracture of surgical neck of right humerus, initial encounter for closed fracture (principal); E03.9 Hypothyroidism, unspecified; F32.A Depression, unspecified; I10 Essential (primary) hypertension; S00.83XA Contusion of other part of head, initial encounter; W10.9XXA Fall (on) (from) unspecified stairs and steps, initial encounter; M79.7 Fibromyalgia; F41.9 Anxiety disorder, unspecified; S51.812A Laceration without foreign body of left forearm, initial encounter; S20.212A Contusion of left front wall of thorax, initial encounter; K21.9 Gastro-esophageal reflux disease without esophagitis; S30.810A Abrasion of lower back and pelvis, initial encounter; S50.812A Abrasion of left forearm, initial encounter; R53.1 Weakness; R42 Dizziness and giddiness; Z79.01 Long term (current) use of anticoagulants; Z86.718 Personal history of other venous thrombosis and embolism; Z79.899 Other long term (current) drug therapy; Z86.711 Personal history of pulmonary embolism; Z79.890 Hormone replacement therapy; Z91.81 History of falling
CPT/HCPCS: 36415; 70450; 71260; 72125; 73030; 73060; 73080; 73110; 74177; 80048; 81001; 82550; 85025; 87086; 87088; 94668; 97116; 97162; 97166; 97530; 97535; 99285; Q9967; A4216; J2405

== ENCOUNTER 2025-03-23 15:40 | Inpatient (IN) | payer MEDICARE, SELFPAY ==
[2025-03-23 16:01] VITALS: BP 153/97; PULSE 98; RESP 18; TEMP 36.9; O2SAT 95; BMI 34.9
--- NOTE | 2025-03-23 16:08 | HP.PCM_ITS ---
HPI - General General Date of Admission: 03/23/25 Date of Service: 03/23/25 Chief Complaint: Here for rehabilitation. HPI Narrative BARBARA HERNANDEZ, is a 74 Female who presents with followin03/08/2025 [facility] ED fall. Mechanical fall, misstepped going down steps, fell down 5 steps. Onto right shoulder. on Eliquis for pulmonary embolism (saddle embolus), she hit her head. Right shoulder pain, left lateral rib pain, left forearm skin tear. X-ray showed right humerus fracture, morphine given. CT of head negative, CT chest/abdomen/pelvis negative. Right upper extremity sling applied. Patient unable to walk, she lives alone, admit for placement. 03/08/2025 Admit [facility]. PT/OT, consult Orthopedics for right humerus fracture. Hold Losartan for lightheadedness. Hold Eliquis for recurrent falls. 03/09/2025 Pain controlled, needs placement. 03/10/2025 Doing well, pain controlled. Right humerus fracture, treated non-operatively. 03/11/2025 Await placement. Pre-CERT SNF. 03/12/2025 No acute events overnight. Stable for discharge. 03/13/2025 Discharge to [facility] for rehabilitation. 03/23/2025 Patient requested transfer to TCU. 03/23/2025 Admit to TCU. [facility] Medical History DVT (deep venous thrombosis) Staphylococcus aureus infection Macular degeneration Bilateral pulmonary embolism Depression History of kidney stones Acute calculous cholecystitis Laceration of left index finger Pulmonary emboli Hypoxia Elevated troponin Pulmonary embolism and infarction Fracture of left foot Episode of syncope Fibromyalgia Anxiety Home Medications ?Medication ?Instructions ?Recorded ?Last Taken ?Type levothyroxine 25 mcg tablet 25 mcg PO DAILY thyroid 03/11/24 History cholecalciferol (vitamin D3) 25 25 mcg PO DAILY supple ment 02/23/24 03/06/24 History mcg (1,000 unit) capsule doxepin 50 mg capsule 50 mg PO QHS depression 02/02 Unknown History vitamin B complex 1 cap PO QDAY vitamin Unknown History tolterodine 4 mg capsule,extended 4 mg PO BID 01/01/25 Unknown History release 24 hr apixaban 5 mg tablet (Eliquis) 5 mg PO BID history of bilat PEs 03/08/25 Unknown History losartan 100 mg tablet 100 mg PO QHS blood pressure 03/08/25 Unknown History pantoprazole 40 mg tablet,delayed 40 mg PO DAILY GERD 03/08/25 Unknown History release oxycodone 5 mg tablet 5 mg PO Q4H PRN PRN Pain Sco re 03/13/25 Unknown Rx 4-10 3 days #10 tabs acetaminophen 325 mg tablet 650 mg PO Q4H PRN pain (sc saul 03/23/25 Unknown History score 1-3) cholecalciferol (vitamin D3) 25 25 mcg PO DAILY vit D deficiency 03/23/25 Unknown History mcg (1,000 unit) capsule oxybutynin chloride 10 mg 10 mg PO DAILY bladder 03/23 Unknown History tablet,extended release 24 hr vitamin B complex 1 cap PO DAILY supplement Unknown History Allergy/AdvReac Type Severity Reaction Status Date / Time No Known Allergies Allergy Verified 03/08/25 13:01 Family History Mother Myocardial infarction Sister Diabetes Cancer Sister No problems noted. Father Cancer Surgical History S/P tonsillectomy S/P appendectomy S/P excision of ganglion cyst History of partial hysterectomy History of cholecystectomy Social History (Updated 03/23/25 @ 16:[address] Ed Bowman MD) household members: none Smoking Status: Never smoker alcohol intake: never substance use type: does not use ROS Constitutional Constitutional: Reports weakness; Denies chills, fever(s) or weight gain ENT HEENT: Denies headache(s), nasal congestion or nasal discharge Cardiovascular Cardiovascular: Denies chest pain or palpitations Respiratory/Chest Respiratory/Chest: Denies cough, excessive phlegm production or shortness of breath with exertion Gastrointestinal Gastrointestinal: Denies abdominal pain, nausea or vomiting Genitourinary Genitourinary: Denies dysuria Musculoskeletal Musculoskeletal: Denies joint pain or joint swelling Integumentary Integumentary: Denies rash or wounds Neurologic Neurologic: Denies focal weakness, numbness or tingling Psychiatric Psychiatric: Denies anxiety, auditory hallucinations, depression, homicidal ideation or suicidal ideation Physical Exam Const alert General Appearance: cooperative HEENT normocephalic Eyes PERRL and EOMs intact bilaterally Neck supple, no JVD and no carotid bruits Resp normal respiratory effort, normal air movement and clear to auscultation bilaterally Cardio regular rate and regular rhythm GI normal to inspection, nondistended, normoactive bowel sounds, non-tender and non-distended Extremity normal capillary refill Extremity Narrative: Right upper extremity sling. General Extremity: Negative for edema Skin no rashes or lesions noted General Skin Exam: no breakdown Psych affect normal Appearance: appropriate Assessment & Plan Assessment/Plan (1) Debility: (2) Closed fracture of right proximal humerus: QUALIFIERS: Encounter type: initial encounter Fracture alignment: nondisplaced Fracture morphology: other fracture Qualified Code(s): S42.294A - Other nondisplaced fracture of upper end of right humerus, initial encounter for closed fracture (3) Pulmonary emboli: (4) Hypothyroidism: (5) Vitamin D deficiency: (6) Insomnia: (7) Overactive bladder: (8) Essential (primary) hypertension: (9) GERD (gastroesophageal reflux disease): (10) Depression: PLAN: Plan 74 year old female with below past medical history hospitalized for right humerus fracture, non-operative treatment admitted to [facility] 03/13/2025, transferred to TCU with debility, here for rehabilitation, strengthening, prior to discharge home alone. * Debility - PT/OT. * Pain - Tylenol 1000mg q8, [place] 5/325mg po bid, Oxycodone 5mg q4 prn pain (6- 10). * Bowel - senna/colace 2 tablets bid, Magnesium citrate 300mL daily prn. * Adult immunization - Administer pneumonia vaccine, covid vaccine, flu vaccine as appropriate. * DVT prophylaxis - Eliquis. * Right humerus fracture - order CT right shoulder, f/u Dr. Young to consider surgical management, continue RUE sling. * Recurrent pulmonary embolism - Eliquis 5mg bid. * Vitamin D deficiency - D3 25mcg daily. * Hypothyroidism - Levothyroxine 25mcg daily. * Hypertension - Losartan 100mg qhs. * GERD - Pantoprazole 40mg daily. * Overactive bladder - Tolterodine 2mg daily. * Leg cramps - Vitamin B complex 1 tablet daily. The following psychotropic medication was present on admission: Doxepin 50mg qhs. Psychotropic medication therapy is indicated for a diagnosis of: Insomnia. Based on my clinical evaluation, continuation of the medication is necessary at this time. Gradual dose reduction plan (select one): ____ GDR will be attempted. Will monitor patient symptoms and behaviors in response to GDR. __x__ GRD contraindicated. 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
--- NOTE | 2025-03-23 16:25 | NURSING ---
Spoke with patietn regarding code status. Pt would like to remain a full code at this time.
[2025-03-23] MEDS: HYDROcodone Bitartrate/Apap 5/325 Tablet PO (22:24)
[2025-03-23] MEDS: DOXEPIN HCL 50 MG CAPSULE PO (22:26)
[2025-03-23] MEDS: APIXABAN 5 MG TABLET PO (22:27)
[2025-03-23] MEDS: Senna/Docusate Sodium 1 Tablet 2 TABLET PO (22:31)
[2025-03-24 07:11] LABS: Hematocrit 34.3 % (37-47); Hemoglobin 11.7 g/dL (12.0-15.0); Immature Granulocytes Count 0.130 X10^3/uL (0.0-0.0); Mean Corp Hgb Conc 34.1 g/dL (32-36); Mean Corpuscular Volume 88.6 fL (81-99); Mean Platelet Vol. 9.0 fl (6.2-12.0); NRBC Flagged by Analyzer 0 % (0-5); Platelet Count 313 K/mm3 (150-450); RBC Distribution Width CV 14.3 % (11.6-14.6); RBC Distribution Width SD 46.0 fl (35.1-43.9); Red Blood Count 3.87 M/mm3 (4.2-5.4); White Blood Count 7.9 K/mm3 (4.4-11.0)
[2025-03-24 07:34] LABS: Anion Gap 11 (5-15); BUN 23 mg/dL (4-19); BUN/Creat Ratio 28.8 RATIO (10-20); Calcium,Total 9.3 mg/dL (7.6-11.0); Carbon Dioxide 22.3 mmol/L (21.0-32.0); Chloride 108 mmol/L (98-108); Estimated Creatinine Clearance 60.40 ml/min (50-250); Glucose 113 mg/dL (70-99); Potassium 3.5 mmol/L (3.3-5.1)
--- NOTE | 2025-03-24 07:51 | PCM.PN.DRR ---
Documented by User: Brianna Sellers 03/24/25 09:22 TCU RX Drug Regimen Review Subjective/Objective Subjective/Objective Subjective: TCU Admission. 74 YOF presented to ER with a fall. Hospitalized for right humerus fracture, non-operative treatment admitted to [facility] 03/13/2025. Admitted to TCU with debility for strengthening and rehabilitation. Objective: Allergies No Known Allergies Allergy (Verified 03/08/25 13:01) Current Medications Generic Name Dose Route Start Last Admin Trade Name Reddq PRN Reason Stop Dose Admin Acetaminophen 1,000 mg 03/23/25 22:00 03/24/25 06:07 Acetaminophen 500 Mg Tablet PO 1,000 mg Q8 RANDAL Administration Hydrocodone Bitart/Acetaminophen 1 tablet 03/23/25 22:00 03/23/25 22:24 Hydrocodone Bitartrate/Apap 5/325 Tablet PO 1 tablet BID RANDAL Administration Apixaban 5 mg 03/23/25 22:00 03/23/25 22:27 Apixaban 5 Mg Tablet PO 5 mg BID RANDAL Administration Cholecalciferol 25 mcg 03/24/25 10:00 Cholecalciferol (Vit D3) 25 Mcg Tablet (1,000 Units) PO DAILY RANDAL Doxepin HCl 50 mg 03/23/25 22:00 03/23/25 22:26 Doxepin Hcl 50 Mg Capsule PO 50 mg QHS RANDAL Administration Levothyroxine Sodium 25 mcg 03/24/25 06:00 03/24/25 06:07 Levothyroxine 25 Mcg Tablet PO 25 mcg DAILY@0600 RANDAL Administration Losartan Potassium 100 mg 03/23/25 22:00 03/23/25 22:25 Losartan Potassium 100 Mg Tablet PO 100 mg QHS [facility] Administration Protocol Magnesium Citrate 300 ml 03/23/25 16:25 Magnesium Citrate 300 Ml PO DAILY PRN Constipation Multivitamins 1 cap 03/24/25 08:00 Vitamin B Comp W-C Capsule PO DAILYCM [facility] Oxycodone HCl 5 mg 03/23/25 16:04 03/23/25 19:02 Oxycodone 5 Mg Tablet PO 5 mg Q4H PRN PRN Administration Pain Score 6-10 or Pre PT/OT Pantoprazole Sodium 40 mg 03/24/25 10:00 Pantoprazole Sodium 40 Mg Tablet PO DAILY [facility] Senna/Docusate Sodium 2 tablet 03/23/25 22:00 03/23/25 22:31 Senna/Docusate Sodium 1 Tablet PO 2 tablet BID RANDAL Administration Tolterodine Tartrate 2 mg 03/24/25 10:00 Tolterodine Tartrate 2 Mg Cap.Sa PO DAILY RANDAL Tuberculin PPD 0.1 ml 03/24/25 10:00 Tuberculin,Purif.Prot.Deriv. 50 Tu/Ml Vial ID 03/24/25 10:01 X1 ONE Tuberculin PPD 0.1 ml 03/31/25 10:00 Tuberculin,Purif.Prot.Deriv. 50 Tu/Ml Vial ID 03/31/25 10:01 X1 ONE Problem List GERD (gastroesophageal reflux disease) (Acute) Essential (primary) hypertension (Acute) Overactive bladder (Acute) Insomnia (Acute) Vitamin D deficiency (Acute) Hypothyroidism (Acute) Debility (Acute) Closed fracture of right proximal humerus (Acute) Pulmonary emboli (Acute) Depression (Chronic) Vital Signs Temp Pulse Resp BP Pulse Ox O2 Del Method 98.4 F 98 18 153/97 H 95 Room Air 03/23/25 16:01 03/23/25 16:01 03/23/25 16:01 03/23/25 16:01 03/23/25 16:01 03/23/25 16:01 Oxygen Delivery Method Room Air Weight: 86.721 kg Body Mass Index (BMI) 34.9 Sodium 141 mmol/L (133-145) 03/24/25 06:39 Potassium 3.5 mmol/L (3.3-5.1) 03/24/25 06:39 Chloride 108 mmol/L (98-108) 03/24/25 06:39 Carbon Dioxide 22.3 mmol/L (21.0-32.0) 03/24/25 06:39 Anion Gap 11 (5-15) 03/24/25 06:39 BUN 23 mg/dL (4-19) H 03/24/25 06:39 Creatinine 0.81 mg/dL (0.70-1.20) 03/24/25 06:39 Est GFR (MDRD) Non-Af 75 (>60) 03/24/25 06:39 BUN/Creatinine Ratio 28.8 RATIO (10-20) H 03/24/25 06:39 Glucose 113 mg/dL (70-99) H 03/24/25 06:39 Assessment/Plan: 1. Pain: acetaminophen 1000mg PO Q8, [place] 5/325mg PO BID and oxycodone 5mg PO Q4H PRN pain 6-10. Resident has had 1 dose of oxycodone for a pain score of 10 in the arm/buttock. Last LFTs:12/11/24. Check LFTs if resident develops symptoms of hepatoxicity. Consider monitoring LFTs if patient using > 3 gm/day of acetaminophen for prolonged period. Do not exceed 4000 mg in 24 hours. Monitor for constipation (last BM:03/23/25), respiratory depression (current RR: 18), falls and sedation/delirium (Beers). Monitor pain scores before/after prn administration for response, PRN pain medication usage, symptoms of pain/resident distress and ability to participate in therapy. 2. Bowel: senna/docusate 2T PO BID and magnesium citrate 300mL PO daily PRN constipation. Resident has not used any PRN doses. Please continue to monitor for constipation and PRN usage. Last documented bowel movement was 03/23/25. 3. Recurrent PE: apixaban 5mg PO BID. Please continue to monitor for S/S of bleeding and hemoglobin (last 11.7g/dL). 4. Hypertension: losartan 100mg PO QHS and amlodipine 5mg PO daily. Please continue to monitor BP (last 153/97), potassium (last 3.5mmol/L), swelling, renal function. Amlodipine added this mornning. 5. Hypothyroidism: levothyroxine 25mcg PO daily. Please continue to monitor TSH (last 12/11/24 WNL) and S/S of hypo/hyperthyroidism. 6. GERD: pantoprazole 40mg PO daily. Monitor for diarrhea (consider possibility of C. diff if develops). Consider serum magnesium level and B12 level with long-term use if indicated. 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 7. Overactive bladder: tolterodine 2mg PO daily. Please continue to monitor for S/S of overactive bladder and dementia/delirium (BEERs). 8. Vitamin D deficiency/leg cramps: cholecalciferol 25mcg PO daily and vitamin B complex 1C PO daily. Please continue to monitor vitamin D (last 12/11/24). Assessment/Plan for indications treated with psychotropic medications: 1. Insomnia: doxepin 50mg PO QHS. Please see physician note regarding GDR. Please continue to monitor for excessive daytime drowsiness, dementia/delirium (BEERs), falls/fractures (BEERs), anticholinergic side effects (BEERs). Monitor for efficacy including resident symptoms, behaviors and indications of distress. Monitor for tolerability including mental status, cognition, excessive sleepiness, withdrawal or decreased participation in activities and decline in physical functioning. Maximize use of nonpharmacologic/behavioral interventions to facilitate dose reduction or discontinuation as appropriate. Please evaluate the appropriateness of GDR unless contraindicated. If appropriate, GDR should be attempted in 2 separate quarters within the first year of use or admission to TCU. If GDR attempted, monitor resident symptoms/behaviors. Medical chart and medication regimen reviewed. The following medication irregularities or issues were identified: None Date Date of Note: 03/24/25 Documented by User: Dr. Ed Bowman MD 03/25/25 08:30 TCU RX Drug Regimen Review Provider Comments Provider responsibility Provider Comments to Recommendations by Pharmacy Agree
[2025-03-24 10:43] VITALS: BP 136/88; PULSE 79; RESP 18; TEMP 36.4; O2SAT 94
[2025-03-24] MEDS: Vitamin B Comp W-C Capsule 1 CAP PO (10:45)
[2025-03-24] MEDS: APIXABAN 5 MG TABLET PO ×2 (10:47→21:55)
[2025-03-24] MEDS: Cholecalciferol (VIT D3) 25 MCG TABLET (1,000 UNITS) PO (10:48)
[2025-03-24] MEDS: HYDROcodone Bitartrate/Apap 5/325 Tablet PO ×2 (10:52→21:55)
[2025-03-24] MEDS: Tuberculin,Purif.prot.deriv. 50 TU/ML Vial 0.1 ML ID (14:52)
[2025-03-24 21:45] VITALS: PULSE 79; RESP 16; O2SAT 97
[2025-03-24] MEDS: DOXEPIN HCL 50 MG CAPSULE PO (21:57)
[2025-03-25 09:46] VITALS: BP 133/73; PULSE 74; RESP 18; TEMP 36.8; O2SAT 95
[2025-03-25] MEDS: APIXABAN 5 MG TABLET PO ×2 (09:48→21:41)
[2025-03-25] MEDS: Vitamin B Comp W-C Capsule 1 CAP PO (09:48)
[2025-03-25] MEDS: Cholecalciferol (VIT D3) 25 MCG TABLET (1,000 UNITS) PO (09:49)
[2025-03-25] MEDS: HYDROcodone Bitartrate/Apap 5/325 Tablet PO ×2 (09:52→21:41)
[2025-03-25 10:00] VITALS: PULSE 72; RESP 17; O2SAT 95
[2025-03-25] MEDS: DOXEPIN HCL 50 MG CAPSULE PO (21:42)
[2025-03-26] MEDS: Vitamin B Comp W-C Capsule 1 CAP PO (10:12)
[2025-03-26] MEDS: APIXABAN 5 MG TABLET PO ×2 (10:12→21:02)
[2025-03-26] MEDS: Senna/Docusate Sodium 1 Tablet 2 TABLET PO ×2 (10:13→21:04)
[2025-03-26] MEDS: Cholecalciferol (VIT D3) 25 MCG TABLET (1,000 UNITS) PO (10:13)
[2025-03-26] MEDS: HYDROcodone Bitartrate/Apap 5/325 Tablet PO ×2 (10:16→21:02)
--- NOTE | 2025-03-26 12:02 | NURSING ---
Coke Burner Note; Activity Asset: Adriana Hogan is independent in her choice of daily activities. She will read, watch tv, work on word search, enjoys talking w/others and luther[employer] family will visit. [facility] will visits and bring her communion. She welcomes visits from the therapy dog and staff will remind her of weekly activities, encourage social activities and respect her right to say no.
--- NOTE | 2025-03-26 14:16 | MDS.RN ---
MDS entry tracker complete, assessed pain.
[2025-03-26 14:32] VITALS: BP 142/89; PULSE 92; RESP 16; TEMP 36.2; O2SAT 98
--- NOTE | 2025-03-26 15:42 | CHAPLAIN ---
Type of Pastoral Visit _x__ Initial Visit ___ Follow-up Visit ___ On-call Visit ___ General Patient Visit ___ Spiritual Assessment ___ Family Conference ___ Bereavement ___ Rapid Response ___ Code Blue ___ Other (describe below) Pastoral Care Referral From _x__ Patient ___ Family ___ Nurse ___ Physician ___ Route Driver Coin Machines ___ Senior Consulting Manager ___ Other (describe below) Sacrament/Intervention _x__ Active listening ___ Anointing ___ Roman Catholic ___ Bereavement ___ Communion ___ Jaqueline exploration ___ _x__ Life review _x__ Prayer ___ Reconciliation ___ Sacrament of Sick _x__ Supportive presence ___ Wedding ___ Other (describe below) Pastoral Comments 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
--- NOTE | 2025-03-26 16:26 | CASEMGMT ---
Social Work SW attempted multiple times to complete assessment with pt, but pt unavailable. SW will continue to attempt until completed. Tricia Burch EARTH SCIENCE LABORATORY TECHNICIAN GUNSTOCK SPRAY UNIT FEEDER
[2025-03-26 21:00] VITALS: BP 159/84; PULSE 82; RESP 16; O2SAT 94
[2025-03-26] MEDS: DOXEPIN HCL 50 MG CAPSULE PO (21:01)
[2025-03-27 08:39] VITALS: BMI 35.2
[2025-03-27] MEDS: Cholecalciferol (VIT D3) 25 MCG TABLET (1,000 UNITS) PO (08:56)
[2025-03-27] MEDS: APIXABAN 5 MG TABLET PO ×2 (08:56→22:06)
[2025-03-27] MEDS: Vitamin B Comp W-C Capsule 1 CAP PO (08:57)
[2025-03-27] MEDS: HYDROcodone Bitartrate/Apap 5/325 Tablet PO ×2 (09:02→22:05)
[2025-03-27] MEDS: Senna/Docusate Sodium 1 Tablet 2 TABLET PO (09:03)
[2025-03-27 09:09] VITALS: BP 148/88; PULSE 86; RESP 18; TEMP 36.6; O2SAT 95
--- NOTE | 2025-03-27 11:45 | CASEMGMT ---
Social Work SW met with patient to complete initial assessment. Introduced self and role. Verified contacts. Patient confirmed code status as full code. See assessment for advance directives conversation and psychosocial history. Educated to [facility] insurance with NRD 03/27 and continued stay is not guaranteed with each review. See assessment for barriers to DC. During assessment, Olya from [facility] called to discuss documents needing obtained for JFS to process Medicaid application. LISETH obtained Olya's information to in pt's documents. LISETH then phoned her two oneill and SW assisted in explaining the need for bank statements. Pt appreciative of assistance. SW to call APS at DC. Will continue to follow for DC planning and support. Time spent face to face with pt: 60 minutes Tricia MAYFIELDW
--- NOTE | 2025-03-27 14:50 | RAD_ITS ---
PROCEDURE: HAND MIN 3 VIEWS 03/27/2025 REASON FOR EXAM: PAIN, R/O FX. TECHNIQUE: Procedure Code: [facility] Modality: DX Procedure: HAND MIN 3 VIEWS Laterality: Right COMPARISON: X-ray right hand 03/08/2025 FINDINGS: Bones: Diffuse osteopenia of visualized bones. Joints: Degenerative changes of carpometacarpal and metacarpophalangeal joints. Soft tissues: Soft tissue swelling overlying wrist joint. Other: None RAD/Hand Min 3 Views IMPRESSION: NO ACUTE FRACTURE OR DISLOCATION. If acute hand or wrist trauma is suspected an d initial radiographs are negative or equivocal repeat radiographs in 10-14 days MRI without IV contrast or CT without IV contr ast is usually appropriate as the next imaging study. (ACR Appropriateness Criteria: Acute Hand and Wrist Trauma 2018) Reading Location: [id number]
--- NOTE | 2025-03-27 16:32 | NURSING ---
PT UPDATED ON XRAY RESULTS ON RT HAND.
--- NOTE | 2025-03-27 17:37 | RAD_ITS ---
PROCEDURE: FOOT MIN 3 VIEWS 03/27/2025 REASON FOR EXAM: PAIN. TECHNIQUE: Procedure Code: RADFO Modality: DX Procedure: FOOT MIN 3 VIEWS Laterality: COMPARISON: 02/02/2025. FINDINGS: Healing fracture of the 5th metatarsal diaphysis. No evidence of acute fracture or dislocation. Diffuse osseous demineralization. Ouaf-yk-edrlnrhz changes throughout the foot. Calcaneal enthesophytes. Heavy atherosclerosis. RAD/Foot min 3 Views IMPRESSION: Osseous findings as above. Reading Location: [id number]
--- NOTE | 2025-03-27 20:59 | NURSING ---
CULINARY INTERN reports this patient has had multiple loose bowel movements today. Patient also told this nurse she has had loose stools multiple times today. Patient requesting Imodium. Consulted Dr. Bowman via secure-text. New orders for PRN imodium 2mg Q2H for 3 days only. Orders for KUB single view of abdomen and change RANDAL senna to PRN. Orders read back and verified via telephone read-back.
--- NOTE | 2025-03-27 21:20 | RAD_ITS ---
PROCEDURE: ABDOMEN SINGLE VIEW (PORTABLE) 03/27/2025 REASON FOR EXAM: MULTIPLE LOOSE STOOLS TECHNIQUE: Procedure Code: RADABD_P Modality: DX Procedure: ABDOMEN SINGLE VIEW (PORTABLE) FINDINGS: Air distended loops of bowel without definite pathologic dilation. Dense colonic stool. No suspicious calcifications. The lung bases are not fully visualized. RAD/Abdomen Single View (Portable) IMPRESSION: Constipation. Reading Location: [id number]
[2025-03-27 22:00] VITALS: BP 145/79; PULSE 80
[2025-03-27] MEDS: DOXEPIN HCL 50 MG CAPSULE PO (22:06)
--- NOTE | 2025-03-27 23:35 | NURSING ---
Updated Dr. Bowman via secure-text with foot xray results. Per Dr. Bowman, communicate to patient that 5th metatarsal fx is healing and no intervention is needed. This nurse communicated results to patient and patient verbalized understanding that no intervention is needed.
[2025-03-28] MEDS: HYDROcodone Bitartrate/Apap 5/325 Tablet PO ×2 (08:17→21:13)
[2025-03-28 09:11] VITALS: BP 155/88; PULSE 73; RESP 18; TEMP 36.2; O2SAT 97
[2025-03-28] MEDS: Vitamin B Comp W-C Capsule 1 CAP PO (09:14)
[2025-03-28] MEDS: APIXABAN 5 MG TABLET PO ×2 (09:14→21:13)
[2025-03-28] MEDS: Cholecalciferol (VIT D3) 25 MCG TABLET (1,000 UNITS) PO (09:14)
[2025-03-28] MEDS: Senna/Docusate Sodium 1 Tablet 2 TABLET PO (09:19)
--- NOTE | 2025-03-28 09:23 | CASEMGMT ---
Social Work IDT met with patient for care plan meeting. Discussed patient's progress in PT/OT/SN/RDN. Educated to [facility] insurance with NRD 03/29 and continued stay is not guaranteed with each review. Pt has f/u appt with ortho on 04/05. SW is working with pt on applying for [facility]. Pt is obtaining documents for JFS. Informed pt that Dr. Bowman started pt on Citalopram 10 mg. SW provided pt counseling resources and offered to make an appt with provider of choice at DC. Pt is NWB RUE and that is limiting ability to perform ADLs. Broached topic of needing an alternative DC plan as pt lives alone and has no support. Pt is fearful of returning home and navigating steps without handrail. Pt agrees she wouldn't be able to return home alone at current LOF. Pt had multiple falls and hospitalizations within the year prior to this fall. SW educated to SNF option for interim stay while NWB. Pt initially not happy about the suggestion, but recognized the possible need for it. Pt voiced she does not want to return to [facility]. SW offered list of SNFs in preferred geographical area, INN with pt?s insurance, including quality and resource data via [employer], which has limited choices in [facility]. SW offered to provide list for additional [facility], if she wishes. Pt to review list and SW offered for friend to tour facilities as well. SW will continue to follow for DC planning and support. Tricia Burch VENETIAN BLIND CLEANER AND REPAIRER LIGHTING DESIGNER
--- NOTE | 2025-03-28 11:55 | NURSING ---
Dr. Bowman entered orders this morning for pt to receive enema d/t KUB results yesterday. Pt reports m, liquid bowel movement this morning. Attempted multiple times this morning to administer enema, pt asking for delayed admin time d/t therapy, walking, visitors, etc. Will attempt after pt finishes eating lunch.
--- NOTE | 2025-03-28 16:11 | CASEMGMT ---
Social Work SW met with patient to complete initial assessment. Introduced self and role. Verified contacts. Patient confirmed code status as full code. See assessment for advance directives conversation and psychosocial history. Educated to [facility] insurance with NRD 03/27 and continued stay is not guaranteed with each review. See assessment for barriers to DC. During assessment, Olya from [facility] called to discuss documents needing obtained for JFS to process Medicaid application. LISETH obtained Olya's information to in pt's documents. LISETH then phoned her two oneill and SW assisted in explaining the need for bank statements. Pt appreciative of assistance. SW to call APS at DC. Will continue to follow for DC planning and support. Tricia Burch MANAGER VAN ROAD MACHINE OPERATOR
--- NOTE | 2025-03-28 16:16 | CASEMGMT ---
Social Work SW conversed with pt several times this date and sent documents to [place] at [facility] for JFS. Tricia Burch PLANT BREEDER AGATE SETTER
[2025-03-28] MEDS: DOXEPIN HCL 50 MG CAPSULE PO (21:13)
[2025-03-28 21:16] VITALS: BP 172/82; PULSE 89
[2025-03-29] MEDS: HYDROcodone Bitartrate/Apap 5/325 Tablet PO ×2 (07:51→21:01)
[2025-03-29] MEDS: APIXABAN 5 MG TABLET PO ×2 (07:51→21:03)
[2025-03-29] MEDS: Vitamin B Comp W-C Capsule 1 CAP PO (07:52)
[2025-03-29] MEDS: Cholecalciferol (VIT D3) 25 MCG TABLET (1,000 UNITS) PO (07:52)
--- NOTE | 2025-03-29 10:25 | CASEMGMT ---
Addendum entered by Tricia Burch 03/29/25 15:22: [facility] can accept and is pt's FOC. SW updated [facility] and [facility]. Addendum entered by Tricia Burch 03/29/25 11:20: [facility] can clinically accept, and will contact pt to review finances. - SW received call from pt that she is also requesting a referral to [facility]. Pt continues to contact her oneill to fax statements to this worker and [facility] for award letter. SW completed via fl3ur. Original Note: Social Work Pt requested referral to [facility]. SW sent via [facility]. Tricia Burch MSW TELEVISION HOST
--- NOTE | 2025-03-29 12:11 | NURSING ---
Addendum entered by Ceci Kaplan 04/02/25 07:22: Dr. Bowman in room with this nurse on Wednesday03/30/25 and talked with resident about ortho f/u. Dr. Bowman encouraged her to continue to allow her body to heal on own and explained reasons why surgeon won't huntley to do surgery for her fracture. Dr. Bowman answered all questions she had and at the end of conversation resident stated oh I feel much better about the situation. Original Note: Updated by HAY STACKER that resident wanting a new orthopedic physician. RN in to speak with resident, she reports she is getting the run around. She asked about CT scan that was done on 03/26/25, said she called Dr. Young's office but they told her they don't see the scan. She wants to know if she will need surgery and doesn't want to wait until appt on 04/05/25. Let her know RN sees order to do CT but no imaging/reporting showing up for that date. She is fine having Dr. Young read imaging, then if needs surgery she will decide which surgeon she would want. Called CT, asked if CT was done and why imaging/report not showing up. They confirm it was done and can also see it didn't load to [employer]. They will work on having imaging moved so staff can access. Did say physician would be able to access from [employer] pacs system. Called and left VM with [facility] seeing if Dr. Young can review scan and update TCU/resident on plan. Resident aware, will update when hear from Ortho office.
[2025-03-29 16:00] VITALS: BP 167/97; PULSE 86; RESP 17; TEMP 35.9; O2SAT 94
[2025-03-29 18:48] VITALS: BP 140/88
[2025-03-29] MEDS: DOXEPIN HCL 50 MG CAPSULE PO (21:02)
[2025-03-30 07:05] LABS: Hematocrit 36.2 % (37-47); Hemoglobin 12.0 g/dL (12.0-15.0); Immature Granulocytes Count 0.120 X10^3/uL (0.0-0.0); Mean Corp Hgb Conc 33.1 g/dL (32-36); Mean Corpuscular Volume 90.0 fL (81-99); Mean Platelet Vol. 9.1 fl (6.2-12.0); NRBC Flagged by Analyzer 0 % (0-5); Platelet Count 292 K/mm3 (150-450); RBC Distribution Width CV 14.5 % (11.6-14.6); RBC Distribution Width SD 46.9 fl (35.1-43.9); Red Blood Count 4.02 M/mm3 (4.2-5.4); White Blood Count 8.3 K/mm3 (4.4-11.0)
[2025-03-30 07:26] LABS: Anion Gap 10 (5-15); BUN 25 mg/dL (4-19); BUN/Creat Ratio 32.5 RATIO (10-20); Calcium,Total 9.3 mg/dL (7.6-11.0); Carbon Dioxide 21.0 mmol/L (21.0-32.0); Chloride 108 mmol/L (98-108); Estimated Creatinine Clearance 61.35 ml/min (50-250); Glucose 96 mg/dL (70-99); Potassium 4.5 mmol/L (3.3-5.1)
--- NOTE | 2025-03-30 08:45 | NURSING ---
[employer] C Developer Note; MDS for 03/30/2025 Complete
[2025-03-30 09:57] VITALS: BP 147/85; PULSE 75; RESP 18; TEMP 36.6; O2SAT 94
[2025-03-30 10:00] VITALS: PULSE 72; RESP 17
[2025-03-30] MEDS: Senna/Docusate Sodium 1 Tablet 2 TABLET PO (10:00)
[2025-03-30] MEDS: Vitamin B Comp W-C Capsule 1 CAP PO (10:01)
[2025-03-30] MEDS: APIXABAN 5 MG TABLET PO ×2 (10:01→20:39)
[2025-03-30] MEDS: Cholecalciferol (VIT D3) 25 MCG TABLET (1,000 UNITS) PO (10:02)
--- NOTE | 2025-03-30 15:55 | CASEMGMT ---
Social Work SW spoke with pt several times throughout the day in room and on the phone, answering pt's questions and providing active listening. Pt does not want son to have access to any information. SW changed contacts to emergency contact only. SW updated pt that insurance approved with NRD 04/03. Tricia Burch DOUGHNUT DOUGH MIXER POUAKO KURA KAUPAPA MAORI
[2025-03-30] MEDS: DOXEPIN HCL 50 MG CAPSULE PO (20:39)
[2025-03-30] MEDS: HYDROcodone Bitartrate/Apap 5/325 Tablet PO (20:39)
[2025-03-30 20:46] VITALS: BP 132/76; PULSE 92
[2025-03-31 06:21] VITALS: RESP 16
[2025-03-31] MEDS: Vitamin B Comp W-C Capsule 1 CAP PO (08:02)
[2025-03-31] MEDS: Cholecalciferol (VIT D3) 25 MCG TABLET (1,000 UNITS) PO (08:03)
[2025-03-31] MEDS: APIXABAN 5 MG TABLET PO ×2 (08:03→21:57)
[2025-03-31] MEDS: Tuberculin,Purif.prot.deriv. 50 TU/ML Vial 0.1 ML ID (08:07)
[2025-03-31] MEDS: HYDROcodone Bitartrate/Apap 5/325 Tablet PO ×2 (08:08→21:52)
[2025-03-31 08:12] VITALS: BP 109/70; PULSE 87; RESP 18; TEMP 36.1; O2SAT 92
[2025-03-31] MEDS: Senna/Docusate Sodium 1 Tablet 2 TABLET PO ×2 (14:02→21:52)
[2025-03-31] MEDS: DOXEPIN HCL 50 MG CAPSULE PO (21:57)
[2025-03-31 22:00] VITALS: BP 148/97; PULSE 78
[2025-04-01] MEDS: Vitamin B Comp W-C Capsule 1 CAP PO (08:52)
[2025-04-01] MEDS: APIXABAN 5 MG TABLET PO ×2 (08:53→22:31)
[2025-04-01] MEDS: Cholecalciferol (VIT D3) 25 MCG TABLET (1,000 UNITS) PO (08:54)
[2025-04-01] MEDS: HYDROcodone Bitartrate/Apap 5/325 Tablet PO ×2 (09:01→22:28)
[2025-04-01 09:03] VITALS: BP 118/70; PULSE 84; RESP 18; TEMP 36.4; O2SAT 94
[2025-04-01 13:00] VITALS: PULSE 84; RESP 18; O2SAT 84
[2025-04-01] MEDS: DOXEPIN HCL 50 MG CAPSULE PO (22:31)
[2025-04-01 22:36] VITALS: BP 172/92; PULSE 91
[2025-04-02 06:03] VITALS: BP 154/78; PULSE 85; RESP 16; O2SAT 94
[2025-04-02 06:04] VITALS: PULSE 85; RESP 16; O2SAT 94
[2025-04-02] MEDS: Cholecalciferol (VIT D3) 25 MCG TABLET (1,000 UNITS) PO (09:01)
[2025-04-02] MEDS: APIXABAN 5 MG TABLET PO ×2 (09:04→22:55)
[2025-04-02] MEDS: Vitamin B Comp W-C Capsule 1 CAP PO (09:04)
[2025-04-02] MEDS: HYDROcodone Bitartrate/Apap 5/325 Tablet PO ×2 (09:08→22:55)
[2025-04-02 09:11] VITALS: BP 152/73; PULSE 71
[2025-04-02 15:16] VITALS: BP 138/79; PULSE 92; RESP 20; TEMP 36.8; O2SAT 93
[2025-04-02 22:50] VITALS: BP 115/65; PULSE 81; RESP 18; O2SAT 93
[2025-04-02] MEDS: DOXEPIN HCL 50 MG CAPSULE PO (22:55)
[2025-04-03 08:00] VITALS: BMI 34.7
[2025-04-03] MEDS: Cholecalciferol (VIT D3) 25 MCG TABLET (1,000 UNITS) PO (08:49)
[2025-04-03] MEDS: Vitamin B Comp W-C Capsule 1 CAP PO (08:49)
[2025-04-03] MEDS: APIXABAN 5 MG TABLET PO ×2 (08:51→22:15)
[2025-04-03] MEDS: Senna/Docusate Sodium 1 Tablet 2 TABLET PO (08:55)
[2025-04-03] MEDS: HYDROcodone Bitartrate/Apap 5/325 Tablet PO ×2 (09:10→22:12)
[2025-04-03 09:31] VITALS: BP 134/74; PULSE 83; RESP 18; TEMP 36.8; O2SAT 92
[2025-04-03] MEDS: DOXEPIN HCL 50 MG CAPSULE PO (22:12)
[2025-04-03 22:18] VITALS: PULSE 76; RESP 16; O2SAT 94
[2025-04-03 22:31] VITALS: BP 144/86; PULSE 74
[2025-04-04 10:20] VITALS: BP 137/74; PULSE 90; RESP 20; TEMP 36.3; O2SAT 97
[2025-04-04] MEDS: Vitamin B Comp W-C Capsule 1 CAP PO (10:21)
[2025-04-04] MEDS: Cholecalciferol (VIT D3) 25 MCG TABLET (1,000 UNITS) PO (10:21)
[2025-04-04] MEDS: APIXABAN 5 MG TABLET PO ×2 (10:22→22:09)
[2025-04-04] MEDS: HYDROcodone Bitartrate/Apap 5/325 Tablet PO ×2 (10:23→22:09)
[2025-04-04] MEDS: FLU VACCINE HIGH DOSE 25-26(65YR UP) 180 MCG/0.5 ML SYRINGE IM (10:23)
[2025-04-04] MEDS: Senna/Docusate Sodium 1 Tablet 2 TABLET PO (10:26)
[2025-04-04 22:00] VITALS: BP 145/78; PULSE 78; RESP 17; O2SAT 91
[2025-04-04] MEDS: DOXEPIN HCL 50 MG CAPSULE PO (22:08)
[2025-04-04 22:20] VITALS: PULSE 78; RESP 16; O2SAT 91
[2025-04-05] MEDS: Cholecalciferol (VIT D3) 25 MCG TABLET (1,000 UNITS) PO (09:05)
[2025-04-05] MEDS: Vitamin B Comp W-C Capsule 1 CAP PO (09:05)
[2025-04-05] MEDS: APIXABAN 5 MG TABLET PO ×2 (09:05→23:16)
[2025-04-05] MEDS: HYDROcodone Bitartrate/Apap 5/325 Tablet PO ×2 (09:09→23:16)
--- NOTE | 2025-04-05 09:43 | MDS.RN ---
Information for the MDS was obtained from review of the clinical record, interview of resident, staff, and direct observation of resident?s care.
--- NOTE | 2025-04-05 11:17 | NURSING ---
Patient had appt with Dr. Young this AM. Instructions sent from MD to get x-ray in 2 weeks with results faxed to [facility], patient can do pendulums with the right arm now. May take off sling when seated and follow-up in office in 4 weeks. Order placed
[2025-04-05 16:00] VITALS: BP 140/72; PULSE 78; RESP 16; TEMP 36.8; O2SAT 92
[2025-04-05 23:00] VITALS: BP 137/76; PULSE 74; RESP 16; O2SAT 90
[2025-04-05] MEDS: DOXEPIN HCL 50 MG CAPSULE PO (23:15)
[2025-04-06 06:40] LABS: Hematocrit 38.7 % (37-47); Hemoglobin 12.9 g/dL (12.0-15.0); Immature Granulocytes Count 0.090 X10^3/uL (0.0-0.0); Mean Corp Hgb Conc 33.3 g/dL (32-36); Mean Corpuscular Volume 90.0 fL (81-99); Mean Platelet Vol. 9.3 fl (6.2-12.0); NRBC Flagged by Analyzer 0 % (0-5); Platelet Count 235 K/mm3 (150-450); RBC Distribution Width CV 14.9 % (11.6-14.6); RBC Distribution Width SD 48.7 fl (35.1-43.9); Red Blood Count 4.30 M/mm3 (4.2-5.4); White Blood Count 6.9 K/mm3 (4.4-11.0)
[2025-04-06 06:55] VITALS: PULSE 82; RESP 17; O2SAT 90
[2025-04-06 08:08] LABS: Anion Gap 11 (5-15); BUN 29 mg/dL (4-19); BUN/Creat Ratio 37.9 RATIO (10-20); Calcium,Total 8.9 mg/dL (7.6-11.0); Carbon Dioxide 19.5 mmol/L (21.0-32.0); Chloride 108 mmol/L (98-108); Estimated Creatinine Clearance 60.96 ml/min (50-250); Glucose 93 mg/dL (70-99); Potassium 4.6 mmol/L (3.3-5.1)
[2025-04-06] MEDS: Vitamin B Comp W-C Capsule 1 CAP PO (08:16)
[2025-04-06] MEDS: APIXABAN 5 MG TABLET PO ×2 (08:17→21:18)
[2025-04-06] MEDS: Cholecalciferol (VIT D3) 25 MCG TABLET (1,000 UNITS) PO (08:19)
[2025-04-06 08:27] VITALS: BP 131/75; PULSE 68; RESP 16; TEMP 36.4; O2SAT 93
[2025-04-06] MEDS: HYDROcodone Bitartrate/Apap 5/325 Tablet PO ×2 (10:08→21:15)
--- NOTE | 2025-04-06 11:37 | NURSING ---
Updated Dr. Alvarez about consult. He can't see her until Wednesday or Wednesday, said he could look at pic to help. Sent picture, he said looks like dependent edema and inflammation, update him for changes but otherwise will see in a few days.
--- NOTE | 2025-04-06 13:31 | CHAPLAIN ---
Type of Pastoral Visit ___ Initial Visit ___ Follow-up Visit ___ On-call Visit ___ General Patient Visit ___ Spiritual Assessment ___ Family Conference ___ Bereavement ___ Rapid Response ___ Code Blue ___ Other (describe below) Pastoral Care Referral From ___ Patient ___ Family ___ Nurse ___ Physician ___ Branch Credit Counselor ___ Entry Analyst ___ Other (describe below) Sacrament/Intervention ___ Active listening ___ Anointing ___ Anabaptist ___ Bereavement ___ Communion ___ Jaqueline exploration ___ ___ Life review ___ Prayer ___ Reconciliation ___ Sacrament of Sick ___ Supportive presence ___ Wedding ___ Other (describe below) Pastoral Comments attempted a visit but patient was on the phone
[2025-04-06] MEDS: Senna/Docusate Sodium 1 Tablet 2 TABLET PO (14:48)
[2025-04-06] MEDS: DOXEPIN HCL 50 MG CAPSULE PO (21:18)
[2025-04-07 10:13] VITALS: BP 122/70; PULSE 69; RESP 17; TEMP 36.6; O2SAT 94
[2025-04-07] MEDS: Vitamin B Comp W-C Capsule 1 CAP PO (10:14)
[2025-04-07] MEDS: APIXABAN 5 MG TABLET PO ×2 (10:16→20:58)
[2025-04-07] MEDS: Cholecalciferol (VIT D3) 25 MCG TABLET (1,000 UNITS) PO (10:17)
[2025-04-07] MEDS: Senna/Docusate Sodium 1 Tablet 2 TABLET PO (10:21)
[2025-04-07] MEDS: HYDROcodone Bitartrate/Apap 5/325 Tablet PO ×2 (10:21→20:57)
[2025-04-07] MEDS: DOXEPIN HCL 50 MG CAPSULE PO (20:56)
[2025-04-07 23:22] VITALS: BP 132/71; PULSE 74; RESP 18; TEMP 36.8; O2SAT 94
[2025-04-08 09:14] VITALS: BP 130/69; PULSE 70; RESP 18; TEMP 36.8; O2SAT 95
[2025-04-08] MEDS: APIXABAN 5 MG TABLET PO ×2 (09:16→21:23)
[2025-04-08] MEDS: Vitamin B Comp W-C Capsule 1 CAP PO (09:17)
[2025-04-08] MEDS: Cholecalciferol (VIT D3) 25 MCG TABLET (1,000 UNITS) PO (09:18)
[2025-04-08] MEDS: Senna/Docusate Sodium 1 Tablet 2 TABLET PO (09:21)
[2025-04-08] MEDS: HYDROcodone Bitartrate/Apap 5/325 Tablet PO ×2 (09:22→21:23)
[2025-04-08 21:15] VITALS: BP 136/78; PULSE 77; RESP 16; O2SAT 94
[2025-04-08] MEDS: DOXEPIN HCL 50 MG CAPSULE PO (21:22)
[2025-04-09] MEDS: Vitamin B Comp W-C Capsule 1 CAP PO (09:16)
[2025-04-09] MEDS: APIXABAN 5 MG TABLET PO ×2 (09:17→20:32)
[2025-04-09] MEDS: Cholecalciferol (VIT D3) 25 MCG TABLET (1,000 UNITS) PO (09:18)
[2025-04-09] MEDS: Senna/Docusate Sodium 1 Tablet 2 TABLET PO (09:22)
[2025-04-09] MEDS: HYDROcodone Bitartrate/Apap 5/325 Tablet PO ×2 (09:22→20:30)
[2025-04-09 09:25] VITALS: BP 117/66; PULSE 79; RESP 18; TEMP 36.4; O2SAT 92
--- NOTE | 2025-04-09 16:08 | CHAPLAIN ---
Type of Pastoral Visit ___ Initial Visit _x__ Follow-up Visit ___ On-call Visit ___ General Patient Visit ___ Spiritual Assessment ___ Family Conference ___ Bereavement ___ Rapid Response ___ Code Blue ___ Other (describe below) Pastoral Care Referral From _x__ Patient ___ Family ___ Nurse ___ Physician ___ Correctional Officer ___ Engagement Manager ___ Other (describe below) Sacrament/Intervention _x__ Active listening ___ Anointing ___ Buddhist ___ Bereavement ___ Communion ___ Jaqueline exploration ___ _x__ Life review _x__ Prayer ___ Reconciliation ___ Sacrament of Sick _x__ Supportive presence ___ Wedding ___ Other (describe below) Pastoral Comments follow up visit to patient who has concerns and disappointments in life; pt is ; pt has limited family support; pt speaks of someone who is 'not helping her' and 'not doing what she asks at the house'; pt has worries about her dog and how to pay for the kennel where dog is if the responsible alliance party doesn't pay for it; pt talks a lot and listening is the response of this glass fitter; this glass fitter also offers to pray and she agrees; pt has concerns about insurance and when she is leaving TCU but she is quite adamant that she will not be going to a SNF but instead to back home;
--- NOTE | 2025-04-09 18:20 | PCM.CONS.GEN ---
Assessment & Plan Assessment/Plan (1) Pain in left foot: PLAN: Patient was examined and evaluated. All findings were discussed with the patient. All questions were answered to the patient's satisfaction. Radiographs, left foot (03/27/2025): Three-view nonweightbearing left foot radiographs. Bone stock is within normal limits for the patient's race and age. Evidence of status post healed fifth metatarsal fracture. No evidence of new radiolucency. Osteoarthritis appreciated throughout the level of the foot. Mild increase in soft tissue volume with no evidence of soft tissue defect. No emphysema or soft tissue air is noted. No additional abnormalities or fractures are noted. After exam the patient has evidence of dependent edema especially without compression use. No concern for deep soft tissue infection. There is concern for hematoma secondary to trauma approximately 3 weeks ago. I did discuss with the patient treatment options and we will exhaust conservative treatment using two 4 inch Freddy bandage for compression from sulcus of toes to mid calf. I educated the patient that if she is not improving would recommend incision and drainage to remove the hematoma to the left foot but she declined. Educated the patient and nursing staff that she is to make sure that she is elevating her left foot 4 inches above her heart whenever at rest. If she is in the wheelchair she is to use compression at all times and we will put in an order for ROSCOE hoses. Weightbearing status: Patient to be weightbearing as tolerated in surgical shoe to left lower extremity, full weightbearing to right lower extremity athletic shoe. Weightbearing should be assisted with nurses and or walker as needed. WBC: 9.6 Medicine: On board, medical management From a podiatry standpoint the patient is cleared to discharge home once cleared by medicine team. Patient will follow-up with Dr. Alvarez in private office. Thank you for the consultation! (2) Hematoma of left foot: HPI Consult Data Date of Consult: 04/09/25 HPI Narrative Reason for Consultation: Left foot pain HPI Narrative: BARBARA HERNANDEZ, is a 74 F who suffered from a fall by missing a few steps while at home. Patient states that she missed approximately 5 steps and was rushed to the emergency room over [facility] and diagnosed with a right humerus fracture. Patient is also on Eliquis for a pulmonary embolism. Patient is currently in a sling for the right upper extremity. Overall the patient is doing well and recovering as expected. Podiatry was consulted for pain to the left foot secondary to a wheelchair running it over approximately 3 weeks ago. X-rays on 03/27/2025 show evidence of old fracture of the fifth metatarsal with no new evidence of radiolucency appreciated. Overall pain has been improving. Patient states that there is redness and swelling especially keeping the leg in a dependent position and the swelling and redness goes away when elevated. She denies any new onset of trauma. She denies constitutional symptoms. No other pedal complaints at this time. [facility] Medical History DVT (deep venous thrombosis) Staphylococcus aureus infection Macular degeneration Bilateral pulmonary embolism Depression History of kidney stones Acute calculous cholecystitis Laceration of left index finger Pulmonary emboli Hypoxia Elevated troponin Pulmonary embolism and infarction Fracture of left foot Episode of syncope Fibromyalgia Anxiety Home Medications ?Medication ?Instructions ?Recorded ?Last Taken ?Type levothyroxine 25 mcg tablet 25 mcg PO DAILY thyroid 12/15/23 03/11/24 History cholecalciferol (vitamin D3) 25 25 mcg PO DAILY supplement 02/23/24 03/06/24 History mcg (1,000 unit) capsule doxepin 50 mg capsule 50 mg PO QHS depression 07/18/24 Unknown History vitamin B complex 1 cap PO QDAY vitamin 07/18/24 Unknown History tolterodine 4 mg capsule,extended 4 mg PO BID 01/01/25 Unknown History release 24 hr apixaban 5 mg tablet (Eliquis) 5 mg PO BID history of bilat PEs 03/08/25 Unknown History losartan 100 mg tablet 100 mg PO QHS blood pressure 03/08/25 Unknown History pantoprazole 40 mg tablet,delayed 40 mg PO DAILY GERD 03/08/25 Unknown History release oxycodone 5 mg tablet 5 mg PO Q4H PRN PRN Pain Score 03/13/25 Unknown Rx 4-10 3 days #10 tabs acetaminophen 325 mg tablet 650 mg PO Q4H PRN pain (scale 03/23/25 Unknown History score 1-3) cholecalciferol (vitamin D3) 25 25 mcg PO DAILY vit D deficiency 03/23/25 Unknown History mcg (1,000 unit) capsule oxybutynin chloride 10 mg 10 mg PO DAILY bladder 03/23/25 Unknown History tablet,extended release 24 hr vitamin B complex 1 cap PO DAILY supplement 03/23/25 Unknown History Allergy/AdvReac Type Severity Reaction Status Date / Time No Known Allergies Allergy Verified 03/08/25 13:01 Family History Mother Myocardial infarction Sister Diabetes Cancer Sister No problems noted. Father Cancer Surgical History S/P tonsillectomy S/P appendectomy S/P excision of ganglion cyst History of partial hysterectomy History of cholecystectomy Social History household members: none Smoking Status: Never smoker alcohol intake: never substance use type: does not use Physical Exam Narrative Vascular: DP and PT pulses are palpable to the left lower extremity. CFT is brisk. Blanchable erythema that goes away with palpation as well as with elevation to left lower extremity. Skin temperature great is warm to warm from proximal ankle to distal digit to left lower extremity. Nonpitting edema appreciated left lower extremity. Neurological: Light touch is intact. Patient does respond to painful stimuli. Dermatological: Evidence of sanguinous crust appreciated to the level of trauma with no concern for infection. Blanchable erythema that goes away with palpation as well as with elevation of the left lower extremity. No concern for infection at this time. Musculoskeletal: Muscle strength 5 out of 5 in all quadrants left lower extremity. Mild palpatory tenderness appreciated to the level of the sanguinous crust overlying the fourth metatarsal of the left lower extremity. No pain with calf pressure. Const alert, oriented x3 and no apparent distress Lab / Micro Data 04/06/25 06:30 04/06/25 06:30
--- NOTE | 2025-04-09 18:22 | NURSING ---
Addendum entered by Talha Gaffney 04/09/25 18:34: ALSO STATED PT HAS A HEMATOMA IN LT FOOT Original Note: INTO SEE PT. COMPRESSION WITH CHELSY WRAPS TO LT LOWER LEG AND FOOT AT ALL TIMES FOR 2 DAYS. THEN KNEE HIGH ROSCOE HOSE TO BOTH BLE DURING THE DAY. STATED NO FX OR INFECTION TO LT FOOT. PER CALL IN A FEW WEEKS IF STILL ANY PROBLEMS.
[2025-04-09] MEDS: DOXEPIN HCL 50 MG CAPSULE PO (20:32)
[2025-04-10 08:00] VITALS: BMI 34.9
[2025-04-10] MEDS: Vitamin B Comp W-C Capsule 1 CAP PO (08:52)
[2025-04-10] MEDS: Cholecalciferol (VIT D3) 25 MCG TABLET (1,000 UNITS) PO (08:53)
[2025-04-10] MEDS: APIXABAN 5 MG TABLET PO ×2 (08:53→20:40)
[2025-04-10] MEDS: Senna/Docusate Sodium 1 Tablet 2 TABLET PO ×2 (08:56→20:39)
[2025-04-10] MEDS: HYDROcodone Bitartrate/Apap 5/325 Tablet PO ×2 (08:57→20:38)
[2025-04-10 08:59] VITALS: BP 122/72; PULSE 68; RESP 15; TEMP 36.6; O2SAT 92
[2025-04-10] MEDS: DOXEPIN HCL 50 MG CAPSULE PO (20:40)
[2025-04-11] MEDS: APIXABAN 5 MG TABLET PO ×2 (08:26→20:37)
[2025-04-11] MEDS: Vitamin B Comp W-C Capsule 1 CAP PO (08:27)
[2025-04-11] MEDS: HYDROcodone Bitartrate/Apap 5/325 Tablet PO ×2 (08:27→20:37)
[2025-04-11] MEDS: Cholecalciferol (VIT D3) 25 MCG TABLET (1,000 UNITS) PO (08:27)
[2025-04-11] MEDS: Senna/Docusate Sodium 1 Tablet 2 TABLET PO ×2 (08:28→20:38)
[2025-04-11 08:43] VITALS: BP 120/68; PULSE 87; RESP 16; TEMP 36.6; O2SAT 90
--- NOTE | 2025-04-11 12:36 | NURSING ---
Pt updated on positive Covid test refused this nurse to update family.
[2025-04-11 20:35] VITALS: BP 117/71; PULSE 79; RESP 16; O2SAT 91
[2025-04-11] MEDS: DOXEPIN HCL 50 MG CAPSULE PO (20:36)
[2025-04-11 20:40] VITALS: PULSE 80; RESP 16
[2025-04-12 05:49] VITALS: PULSE 74; RESP 16
[2025-04-12 07:53] VITALS: BP 139/81; PULSE 69; RESP 16; TEMP 36.3; O2SAT 95
[2025-04-12] MEDS: APIXABAN 5 MG TABLET PO ×2 (07:54→21:55)
[2025-04-12] MEDS: Vitamin B Comp W-C Capsule 1 CAP PO (07:54)
[2025-04-12] MEDS: Cholecalciferol (VIT D3) 25 MCG TABLET (1,000 UNITS) PO (07:54)
[2025-04-12] MEDS: HYDROcodone Bitartrate/Apap 5/325 Tablet PO ×2 (08:07→21:55)
[2025-04-12 21:50] VITALS: BP 124/73; PULSE 77; RESP 16; O2SAT 96
[2025-04-12] MEDS: DOXEPIN HCL 50 MG CAPSULE PO (21:54)
[2025-04-13 06:06] LABS: Hematocrit 37.1 % (37-47); Hemoglobin 12.2 g/dL (12.0-15.0); Immature Granulocytes Count 0.060 X10^3/uL (0.0-0.0); Mean Corp Hgb Conc 32.9 g/dL (32-36); Mean Corpuscular Volume 89.6 fL (81-99); Mean Platelet Vol. 9.4 fl (6.2-12.0); NRBC Flagged by Analyzer 0 % (0-5); Platelet Count 267 K/mm3 (150-450); RBC Distribution Width CV 14.9 % (11.6-14.6); RBC Distribution Width SD 48.8 fl (35.1-43.9); Red Blood Count 4.14 M/mm3 (4.2-5.4); White Blood Count 7.9 K/mm3 (4.4-11.0)
[2025-04-13 06:26] LABS: Anion Gap 10 (5-15); BUN 24 mg/dL (4-19); BUN/Creat Ratio 33.8 RATIO (10-20); Calcium,Total 9.2 mg/dL (7.6-11.0); Carbon Dioxide 22.9 mmol/L (21.0-32.0); Chloride 109 mmol/L (98-108); Estimated Creatinine Clearance 61.15 ml/min (50-250); Glucose 104 mg/dL (70-99); Potassium 4.1 mmol/L (3.3-5.1)
[2025-04-13 09:21] VITALS: BP 117/69; PULSE 74; RESP 17; TEMP 36.3; O2SAT 94
[2025-04-13] MEDS: APIXABAN 5 MG TABLET PO ×2 (09:30→21:17)
[2025-04-13] MEDS: Vitamin B Comp W-C Capsule 1 CAP PO (09:30)
[2025-04-13] MEDS: HYDROcodone Bitartrate/Apap 5/325 Tablet PO ×2 (09:31→21:16)
[2025-04-13] MEDS: Cholecalciferol (VIT D3) 25 MCG TABLET (1,000 UNITS) PO (09:31)
[2025-04-13 19:57] VITALS: BP 129/79; PULSE 87
[2025-04-13] MEDS: DOXEPIN HCL 50 MG CAPSULE PO (21:16)
[2025-04-13] MEDS: Senna/Docusate Sodium 1 Tablet 2 TABLET PO (21:17)
[2025-04-14 10:17] VITALS: BP 126/57; PULSE 71; RESP 16; TEMP 36.8; O2SAT 93
[2025-04-14] MEDS: Vitamin B Comp W-C Capsule 1 CAP PO (10:24)
[2025-04-14] MEDS: APIXABAN 5 MG TABLET PO ×2 (10:24→20:52)
[2025-04-14] MEDS: Cholecalciferol (VIT D3) 25 MCG TABLET (1,000 UNITS) PO (10:25)
[2025-04-14] MEDS: HYDROcodone Bitartrate/Apap 5/325 Tablet PO ×2 (10:25→21:02)
--- NOTE | 2025-04-14 10:44 | PCM.PN.SRG ---
Subjective Subjective Ms. Glass is a 74-year-old female seen at bedside today for evaluation of left foot contusion and hematoma. Patient's erythema has improved with compression. She is elevating as discussed. Working with physical therapy. She denies any pain to the left foot. Denies any new onset of trauma. Denies constitutional symptoms. No other pedal complaints at this time. Objective Data Objective Data Vital Signs: Vital Signs Temp Pulse Resp BP Pulse Ox O2 Del Method FiO2 98.3 F 71 16 126/57 H 93 Room Air 91 04/14/25 10:17 04/14/25 10:17 04/14/25 10:17 04/14/25 10:17 04/14/25 10:17 04/14/25 10:17 04/11/25 20:40 Oxygen Delivery Method Room Air Weight: 86.727 kg Body Mass Index (BMI) 34.9 Intake & Output: Intake and Output for Last 24 Hours 04/12/25 04/13/25 04/14/25 23:59 23:59 23:59 Intake Total 960 / 960 784 / 784 120 / 120 Balance 960 / 960 784 / 784 120 / 120 Lab / Micro Data 04/13/25 05:41 04/13/25 05:41 Micro: Microbiology 04/14/25 06:42 Nasal Secretion SARS-CoV-2 Antigen (Rapid) - Final 04/12/25 05:15 Nasal Secretion SARS-CoV-2 Antigen (Rapid) - Final Physical Exam Narrative Vascular: DP and PT pulse are palpable to the left lower extremity. CFT is brisk. Skin temperature great is warm to warm from proximal ankle to distal digit without any focal ankle crease appreciated. Nonpitting edema to the level of the left foot. Neurological: Light touch is intact. Patient does respond to painful stimuli. Dermatological: Evidence of palpable subcutaneous lesion consistent with hematoma. No erythema or concern for infection. Musculoskeletal: Muscle strength is 5/5 in all quadrants left lower extremity. No pain on palpation to the subcutaneous nodule/hematoma to the left foot. No pain with calf pressure. Const oriented x3 and no apparent distress Assessment & Plan Assessment/Plan (1) Pain in left foot: PLAN: Patient was examined and evaluated. All findings were discussed with the patient. All questions were answered to the patient satisfaction. Bedside evaluation performed today with removal of the Freddy wrap. Patient shows evidence of a hematoma with no concern of infection to the left foot. Please continue to provide compression especially with walking and standing for long periods of time or sitting in side chair. Recommended to the nurses to apply warm compresses 20 minutes on 20 minutes off for up to 1 hour/day. Patient encouraged to continue working with physical therapy. No plan for surgical intervention from a podiatry standpoint. Podiatry will continue to follow while the patient is in TCU. Please reach out to Dr. Alvarez with any question or concerns. Thank you for letting me be involved in the patient care. (2) Hematoma of left foot:
[2025-04-14 20:50] VITALS: BP 142/77; PULSE 88
[2025-04-14] MEDS: DOXEPIN HCL 50 MG CAPSULE PO (20:51)
[2025-04-14] MEDS: Senna/Docusate Sodium 1 Tablet 2 TABLET PO (21:02)
[2025-04-15 09:43] VITALS: BP 144/68; PULSE 83; RESP 16; TEMP 36.7; O2SAT 94
[2025-04-15] MEDS: HYDROcodone Bitartrate/Apap 5/325 Tablet PO ×2 (09:46→20:53)
[2025-04-15] MEDS: Vitamin B Comp W-C Capsule 1 CAP PO (09:46)
[2025-04-15] MEDS: Cholecalciferol (VIT D3) 25 MCG TABLET (1,000 UNITS) PO (09:46)
[2025-04-15] MEDS: APIXABAN 5 MG TABLET PO ×2 (09:46→20:53)
[2025-04-15 20:54] VITALS: BP 146/85; PULSE 78
[2025-04-15] MEDS: DOXEPIN HCL 50 MG CAPSULE PO (20:54)
[2025-04-16] MEDS: Senna/Docusate Sodium 1 Tablet 2 TABLET PO ×2 (04:56→21:42)
[2025-04-16 05:05] VITALS: PULSE 68; RESP 17; O2SAT 95
[2025-04-16 05:10] VITALS: BP 148/91; PULSE 69; RESP 17; O2SAT 95
[2025-04-16] MEDS: Vitamin B Comp W-C Capsule 1 CAP PO (09:48)
[2025-04-16] MEDS: HYDROcodone Bitartrate/Apap 5/325 Tablet PO ×2 (09:48→21:41)
[2025-04-16] MEDS: Cholecalciferol (VIT D3) 25 MCG TABLET (1,000 UNITS) PO (09:49)
[2025-04-16] MEDS: APIXABAN 5 MG TABLET PO ×2 (09:49→21:41)
[2025-04-16 09:50] VITALS: BP 116/75; PULSE 75; RESP 16; TEMP 36.2; O2SAT 99
[2025-04-16] MEDS: COVID VAC 25-26 (12UP)(MOD)/PF 50 MCG/0.5 ML SYRINGE IM (16:14)
[2025-04-16 21:38] VITALS: BP 134/93; PULSE 76; RESP 16; O2SAT 94
[2025-04-16] MEDS: DOXEPIN HCL 50 MG CAPSULE PO (21:40)
[2025-04-17 08:00] VITALS: BMI 35.3
[2025-04-17] MEDS: Senna/Docusate Sodium 1 Tablet 2 TABLET PO (08:35)
[2025-04-17] MEDS: APIXABAN 5 MG TABLET PO ×2 (08:35→21:56)
[2025-04-17] MEDS: Vitamin B Comp W-C Capsule 1 CAP PO (08:35)
[2025-04-17] MEDS: Cholecalciferol (VIT D3) 25 MCG TABLET (1,000 UNITS) PO (08:36)
[2025-04-17] MEDS: HYDROcodone Bitartrate/Apap 5/325 Tablet PO ×2 (08:38→21:56)
--- NOTE | 2025-04-17 09:42 | CASEMGMT ---
Addendum entered by Tricia Burch 04/17/25 14:34: Olya responded that pt is fully approved for PHILIPPE. Once pt is DC'd home, [facility] will complete a home evaluation to get services in place. 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 Original Note: Social Work Pt requested to speak with this worker. SW presented to room. Pt inquired about DC plans. SW explained insurance update is 04/20 and [facility] is standing by. Pt stated she wants to go home once insurance issues DC date. Pt states she has improved and does not want a SNF. SW confirmed and will update [facility]. Discussed needs at home. Pt stated her son still has not installed the handrail to her entry steps. SW offered to inquire to [facility] if they can assist, but unlikely and can offer resources. Pt stated she will ask her neighbor if he can assist. Pt requesting to use [facility] again. SW to coordinate. Pt is using a hemiwalker currently. SW to coordinate through [employer]. Discussed additional needs such as house cleaning and medical alert, but pt cannot afford either. LISETH will contact Olya SARGENT at [facility] on Medicaid status and assistance available. Pt appreciative. LISETH inquired about transport at [place]. LISETH can coordinate transport, but if PHILIPPE is not approved, pt would need to pay OOP. Pt to contact friend. LISETH explained earliest DC would be 04/23. Pt appreciative of assistance. - LISETH sent secure email to Olya to update on DC plans and needs. Will await response. Tricia Burch MSW RESIDENTIAL FINISH CARPENTER
[2025-04-17 15:23] VITALS: BP 139/73; PULSE 88; RESP 18; TEMP 36.8; O2SAT 95
--- NOTE | 2025-04-17 18:43 | PCM.TCUNOT ---
Subjective Subjective Patient seen and examined for regulatory visit. She appears well, sitting in chair, watching TV. She has no new problems, concerns, issues, complaints. Objective Data Objective Data Vital Signs: Vital Signs Temp Pulse Resp BP Pulse Ox O2 Del Method FiO2 98.3 F 88 18 139/73 H 95 Room Air 91 04/17/25 15:23 04/17/25 15:23 04/17/25 15:23 04/17/25 15:23 04/17/25 15:23 04/17/25 15:23 04/11/25 20:40 Oxygen Delivery Method Room Air Weight: 87.543 kg Body Mass Index (BMI) 35.3 Intake & Output: Intake and Output for Last 24 Hours 04/15/25 04/16/25 04/17/25 23:59 23:59 23:59 Intake Total 1298 / 1298 1170 / 1170 440 / 440 Output Total 200 / 200 Balance 1298 / 1298 970 / 970 440 / 440 Lab / Micro Data 04/13/25 05:41 04/13/25 05:41 Micro: Microbiology 04/16/25 05:00 Nasal Secretion SARS-CoV-2 Antigen (Rapid) - Final 04/14/25 06:42 Nasal Secretion SARS-CoV-2 Antigen (Rapid) - Final 04/12/25 05:15 Nasal Secretion SARS-CoV-2 Antigen (Rapid) - Final Physical Exam Const alert General Appearance: cooperative HEENT normocephalic Eyes PERRL and EOMs intact bilaterally Neck supple, no JVD and no carotid bruits Resp normal respiratory effort, normal air movement and clear to auscultation bilaterally Cardio regular rate and regular rhythm GI normal to inspection, nondistended, normoactive bowel sounds, non-tender and non-distended Extremity normal capillary refill Extremity Narrative: Right upper extremity sling. General Extremity: Negative for edema Skin no rashes or lesions noted General Skin Exam: no breakdown Psych affect normal Appearance: appropriate Assessment & Plan Assessment/Plan (1) Debility: (2) Closed fracture of right proximal humerus: QUALIFIERS: Encounter type: initial encounter Fracture morphology: other fracture Fracture alignment: nondisplaced Qualified Code(s): S42.294A - Other nondisplaced fracture of upper end of right humerus, initial encounter for closed fracture (3) Pulmonary emboli: (4) Hypothyroidism: (5) Vitamin D deficiency: (6) Insomnia: (7) Overactive bladder: (8) Essential (primary) hypertension: (9) GERD (gastroesophageal reflux disease): (10) Depression: PLAN: Plan 74 year old female with below past medical history hospitalized for right humerus fracture, non-operative treatment admitted to [facility] 03/13/2025, transferred to TCU with debility, here for rehabilitation, strengthening, prior to discharge home alone. Debility - PT/OT. Pain - Tylenol 1000mg q8, [place] 5/325mg po bid, Oxycodone 5mg q4 prn pain (6-10). Bowel - senna/colace 2 tablets bid, Magnesium citrate 300mL daily prn. Adult immunization - Administer pneumonia vaccine, covid vaccine, flu vaccine as appropriate. DVT prophylaxis - Eliquis. Right humerus fracture - RUE sling. Recurrent pulmonary embolism - Eliquis 5mg bid. Vitamin D deficiency - D3 25mcg daily. Hypothyroidism - Levothyroxine 25mcg daily. Hypertension - Losartan 100mg qhs, Amlodipine 5mg daily. GERD - Pantoprazole 40mg daily. Overactive bladder - Tolterodine 2mg daily. Leg cramps - Vitamin B complex 1 tablet daily. The following psychotropic medication was present on admission: Citalopram 10mg daily. Psychotropic medication therapy is indicated for a diagnosis of: Major Depression. Based on my clinical evaluation, continuation of the medication is necessary at this time. Gradual dose reduction plan (select one): ____ GDR will be attempted. Will monitor patient symptoms and behaviors in response to GDR. __x__ GRD contraindicated. 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 The following psychotropic medication was present on admission: Doxepin 50mg qhs. Psychotropic medication therapy is indicated for a diagnosis of: Insomnia. Based on my clinical evaluation, continuation of the medication is necessary at this time. Gradual dose reduction plan (select one): ____ GDR will be attempted. Will monitor patient symptoms and behaviors in response to GDR. __x__ GRD contraindicated. Reason contraindicated: stable chronic senior care use.
[2025-04-17 19:27] VITALS: PULSE 95; RESP 16; O2SAT 97
[2025-04-17 19:42] VITALS: BP 133/79; PULSE 89
[2025-04-17] MEDS: DOXEPIN HCL 50 MG CAPSULE PO (21:55)
[2025-04-18 00:28] VITALS: PULSE 108; RESP 16; O2SAT 96
[2025-04-18 08:47] VITALS: BP 138/75; PULSE 78; RESP 18; TEMP 36.4; O2SAT 94
[2025-04-18] MEDS: HYDROcodone Bitartrate/Apap 5/325 Tablet PO ×2 (08:54→21:15)
[2025-04-18] MEDS: APIXABAN 5 MG TABLET PO ×2 (08:54→21:16)
[2025-04-18] MEDS: Cholecalciferol (VIT D3) 25 MCG TABLET (1,000 UNITS) PO (08:55)
[2025-04-18] MEDS: Vitamin B Comp W-C Capsule 1 CAP PO (08:55)
[2025-04-18] MEDS: Senna/Docusate Sodium 1 Tablet 2 TABLET PO (21:15)
[2025-04-18] MEDS: DOXEPIN HCL 50 MG CAPSULE PO (21:16)
[2025-04-18 21:19] VITALS: BP 129/80; PULSE 76
--- NOTE | 2025-04-19 08:00 | RAD_ITS ---
PROCEDURE: SHOULDER MIN 2 VIEWS 04/19/2025 REASON FOR EXAM: COMPLETE WITH VELPEAU. FX OF RIGHT HUMERUS TECHNIQUE: Procedure Code: RADSH Modality: DX Procedure: Five view right shoulder. Laterality: Right COMPARISON: Right shoulder study of 03/08/2025. RAD/Shoulder min 2 Views IMPRESSION: Stable right acromioclavicular joint degenerative changes. Interval impaction of the markedly comminuted fracture of the right humeral hea d and neck is seen. Interval callus formation also noted. Also, lateral angulation is present. Reading Location: [place] [id number]
[2025-04-19 09:19] VITALS: BP 112/72; PULSE 75; RESP 17; TEMP 36.4; O2SAT 91
[2025-04-19] MEDS: Vitamin B Comp W-C Capsule 1 CAP PO (09:27)
[2025-04-19] MEDS: APIXABAN 5 MG TABLET PO ×2 (09:28→20:55)
[2025-04-19] MEDS: HYDROcodone Bitartrate/Apap 5/325 Tablet PO ×2 (09:28→20:56)
[2025-04-19] MEDS: Cholecalciferol (VIT D3) 25 MCG TABLET (1,000 UNITS) PO (09:28)
--- NOTE | 2025-04-19 14:16 | PCM.PN.SRG ---
Subjective Subjective Ms. Glass is a 74-year-old female seen at bedside today for evaluation of left foot contusion and hematoma. Erythema has completely resolved as well as the hematoma. She has been compliant with Freddy bandage wraps from sulcus of toes to mid calf to left lower extremity. She is ambulating with support. She is grateful for her care. She has no pain to the left foot. She denies any new onset of trauma. Denies constitutional symptoms. No other pedal complaints at this time. Objective Data Objective Data Vital Signs: Vital Signs Temp Pulse Resp BP Pulse Ox O2 Del Method FiO2 97.6 F L 75 17 112/72 91 Room Air 91 04/19/25 09:19 04/19/25 09:19 04/19/25 09:19 04/19/25 09:19 04/19/25 09:19 04/19/25 09:19 04/11/25 20:40 Oxygen Delivery Method Room Air Weight: 87.543 kg Body Mass Index (BMI) 35.3 Intake & Output: Intake and Output for Last 24 Hours 04/17/25 04/18/25 04/19/25 23:59 23:59 23:59 Intake Total 665 / 665 700 / 700 450 / 450 Balance 665 / 665 700 / 700 450 / 450 Lab / Micro Data 04/13/25 05:41 04/13/25 05:41 Micro: Microbiology 04/16/25 05:00 Nasal Secretion SARS-CoV-2 Antigen (Rapid) - Final 04/14/25 06:42 Nasal Secretion SARS-CoV-2 Antigen (Rapid) - Final 04/12/25 05:15 Nasal Secretion SARS-CoV-2 Antigen (Rapid) - Final Radiography Diagnostic Testing: Radiology Impression Shoulder X-Ray 04/19/25 08:00 IMPRESSION: Stable right acromioclavicular joint degenerative changes. Interval impaction of the markedly comminuted fracture of the right humeral head and neck is seen. Interval callus formation also noted. Also, lateral angulation is present. Reading Location: [facility] Physical Exam Narrative Vascular: DP and PT pulse are palpable to left lower extremity. CFT is brisk. No erythema. Nonpitting edema appreciated to the left foot. Neurological: Light touch is intact. Dermatological: Hematoma to the left foot has resolved. No erythema or concern for infection. Musculoskeletal: Muscle strength is 5/5 in all quadrants left lower extremity. No pain on palpation to the subcutaneous nodule/hematoma area to the left foot. No pain with calf pressure. Const oriented x3 and no apparent distress Assessment & Plan Assessment/Plan (1) Pain in left foot: PLAN: Patient was examined and evaluated. All findings were discussed with the patient. All questions were answered to the patient satisfaction. Bedside evaluation performed today. The hematoma has resolved. Patient will continue to compress with Freddy bandage from sulcus of toes to mid calf to left lower extremity. I educated the patient that at discharge I recommend compression stocking which she was understanding of she will purchase this from the local pharmacy and or athletic store. Patient will continue to participate in physical therapy. Podiatry will follow from a distance and sign off. Please reach out to Dr. Alvarez any question concerns. Thank you for letting me be involved in patient care. (2) Hematoma of left foot:
[2025-04-19] MEDS: DOXEPIN HCL 50 MG CAPSULE PO (20:54)
[2025-04-19] MEDS: Senna/Docusate Sodium 1 Tablet 2 TABLET PO (20:56)
[2025-04-19 21:00] VITALS: PULSE 75; RESP 16; O2SAT 94
[2025-04-19 22:57] VITALS: BP 132/79; PULSE 75; RESP 16; O2SAT 94
[2025-04-20 06:00] LABS: Hematocrit 36.6 % (37-47); Hemoglobin 12.1 g/dL (12.0-15.0); Immature Granulocytes Count 0.060 X10^3/uL (0.0-0.0); Mean Corp Hgb Conc 33.1 g/dL (32-36); Mean Corpuscular Volume 89.7 fL (81-99); Mean Platelet Vol. 8.9 fl (6.2-12.0); NRBC Flagged by Analyzer 0 % (0-5); Platelet Count 235 K/mm3 (150-450); RBC Distribution Width CV 15.0 % (11.6-14.6); RBC Distribution Width SD 49.1 fl (35.1-43.9); Red Blood Count 4.08 M/mm3 (4.2-5.4); White Blood Count 6.5 K/mm3 (4.4-11.0)
[2025-04-20 06:16] LABS: Anion Gap 9 (5-15); BUN 27 mg/dL (4-19); BUN/Creat Ratio 36.4 RATIO (10-20); Calcium,Total 8.8 mg/dL (7.6-11.0); Carbon Dioxide 21.6 mmol/L (21.0-32.0); Chloride 109 mmol/L (98-108); Estimated Creatinine Clearance 61.46 ml/min (50-250); Glucose 108 mg/dL (70-99); Potassium 3.7 mmol/L (3.3-5.1)
[2025-04-20 09:15] VITALS: BP 122/79; PULSE 80; RESP 18; TEMP 36.6; O2SAT 97
[2025-04-20] MEDS: HYDROcodone Bitartrate/Apap 5/325 Tablet PO ×2 (09:18→21:01)
[2025-04-20] MEDS: Vitamin B Comp W-C Capsule 1 CAP PO (09:18)
[2025-04-20] MEDS: Cholecalciferol (VIT D3) 25 MCG TABLET (1,000 UNITS) PO (09:18)
[2025-04-20] MEDS: APIXABAN 5 MG TABLET PO ×2 (09:19→21:02)
--- NOTE | 2025-04-20 10:43 | NURSING ---
Received phone call this morning from Sue at Dr. Young's office in response to pt's request yesterday for review of XRs. Dr Young gave okay for pt to use regular walker, begin ROM therapy, no strengthening exercises. Received copy of order via fax, therapy and patient aware.
--- NOTE | 2025-04-20 16:00 | NURSING ---
Pt requested personal belongings envelopes. Security brought up one envelope [bag #[id number]], pt also requested sealed bag from nursing: bag [id number]. Pt states she will keep belongings and agrees to resume responsibility for items.
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
--- NOTE | 2025-04-20 16:57 | PCM.DC.SUM ---
Providers Date of Admission: 03/23/25 Primary Care Physician: Dr. Ed Bowman MD Consultations 04/05/25 17:26 Consult: Podiatry Routine Consulting Provider: Dante Alvarez Reason for Consult: Left foot pain, no improvement on antibiotics. EMERGENT Consult: No MD Notified: Yes Date Notified: 04/06/25 Time Notified: 11:14 Method of Notification: Text Reason For Visit: FRACTURE OF HUMERUS Diagnosis Discharge Diagnosis (1) Pain in left foot: Status: Acute Code(s): M79.672 - Pain in left foot (2) Hematoma of left foot: Status: Acute Code(s): S90.32XA - Contusion of left foot, initial encounter Plan 74 year old female with below past medical history hospitalized for right humerus fracture, non-operative treatment admitted to [facility] 03/13/2025, transferred to TCU with debility, here for rehabilitation, strengthening, prior to discharge home alone. Debility - PT/OT. Pain - Tylenol 1000mg q8, [place] 5/325mg po bid, Oxycodone 5mg q4 prn pain (6-10). Bowel - senna/colace 2 tablets bid, Magnesium citrate 300mL daily prn. Adult immunization - Administer pneumonia vaccine, covid vaccine, flu vaccine as appropriate. DVT prophylaxis - Eliquis. Right humerus fracture - RUE sling. Recurrent pulmonary embolism - Eliquis 5mg bid. Vitamin D deficiency - D3 25mcg daily. Hypothyroidism - Levothyroxine 25mcg daily. Hypertension - Losartan 100mg qhs, Amlodipine 5mg daily. GERD - Pantoprazole 40mg daily. Overactive bladder - Tolterodine 2mg daily. Leg cramps - Vitamin B complex 1 tablet daily. The following psychotropic medication was present on admission: Citalopram 10mg daily. Psychotropic medication therapy is indicated for a diagnosis of: Major Depression. Based on my clinical evaluation, continuation of the medication is necessary at this time. Gradual dose reduction plan (select one): ____ GDR will be attempted. Will monitor patient symptoms and behaviors in response to GDR. __x__ GRD contraindicated. 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 The following psychotropic medication was present on admission: Doxepin 50mg qhs. Psychotropic medication therapy is indicated for a diagnosis of: Insomnia. Based on my clinical evaluation, continuation of the medication is necessary at this time. Gradual dose reduction plan (select one): ____ GDR will be attempted. Will monitor patient symptoms and behaviors in response to GDR. __x__ GRD contraindicated. Reason contraindicated: stable chronic alf use. Medications at Discharge Home Medications levothyroxine 25 mcg tablet 25 mcg PO DAILY thyroid 12/15/23 doxepin 50 mg capsule 50 mg PO QHS depression 07/18/24 apixaban 5 mg tablet (Eliquis) 5 mg PO BID history of bilat PEs 03/08/25 pantoprazole 40 mg tablet,delayed release 40 mg PO DAILY GERD 03/08/25 cholecalciferol (vitamin D3) 25 mcg (1,000 unit) capsule 25 mcg PO DAILY vit D deficiency 03/23/25 oxybutynin chloride 10 mg tablet,extended release 24 hr 10 mg PO DAILY bladder 03/23/25 vitamin B complex 1 cap PO DAILY supplement 03/23/25 acetaminophen 500 mg tablet 1,000 mg (2 x 500 mg) PO Q8 #0 tabs 04/20/25 amlodipine 5 mg tablet 5 mg PO DAILY 30 days #30 tabs 04/20/25 citalopram 10 mg tablet 10 mg PO DAILY 30 days #30 tabs 04/20/25 hydrocodone-acetaminophen 5-325mg 5mg-325mg 1 tab PO BID #0 tabs 04/20/25 losartan 100 mg tablet 100 mg PO QHS 30 days #30 tabs 04/20/25 Hospital Course Operations None Procedures None Summary of Care Provided Minutes Spent on Discharge: 35 Hospital Course: 74 year old female with below past medical history hospitalized for right humerus fracture, non-operative treatment admitted to [facility] 03/13/2025, transferred to TCU with debility, here for rehabilitation, strengthening, prior to discharge home alone. Discharge home alone 04/24/2025, [facility] PT/OT/SW. Physical Exam Const alert General Appearance: cooperative HEENT normocephalic Eyes PERRL and EOMs intact bilaterally Neck supple, no JVD and no carotid bruits Resp normal respiratory effort, normal air movement and clear to auscultation bilaterally Cardio regular rate and regular rhythm GI normal to inspection, nondistended, normoactive bowel sounds, non-tender and non-distended Extremity normal capillary refill General Extremity: Negative for edema Skin no rashes or lesions noted General Skin Exam: no breakdown Psych affect normal Appearance: appropriate Weight / BMI Weight Weight: 87.543 kg Body Mass Index (BMI) 35.3 ABG / Lab / Microbiology Data 04/20/25 05:45 04/20/25 05:45 Laboratory: Laboratory Results - last 24 hr 04/20/25 05:45: WBC 6.5, RBC 4.08 L, Hgb 12.1, Hct 36.6 L, MCV 89.7, MCH 29.7, MCHC 33.1, RDW Std Deviation 49.1 H, RDW Coeff of Larry 15.0 H, Plt Count 235, MPV 8.9, Immature Gran % (Auto) 0.900, Neut % (Auto) 43.8 L, Lymph % (Auto) 41.2 H, [place] % (Auto) 11.8 H, Eos % (Auto) 1.7, Baso % (Auto) 0.6, Absolute Neuts (auto) 2.8, Absolute Lymphs (auto) 2.68, Nucleated RBC % 0, Sodium 140, Potassium 3.7, Chloride 109 H, Carbon Dioxide 21.6, Anion Gap 9, BUN 27 H, Creatinine 0.74, Estim Creat Clear Calc 61.46, Est GFR (MDRD) Non-Af 84, BUN/Creatinine Ratio 36.4 H, Glucose 108 H, Calcium 8.8 Microbiology: Microbiology 04/16/25 05:00 Nasal Secretion SARS-CoV-2 Antigen (Rapid) - Final 04/14/25 06:42 Nasal Secretion SARS-CoV-2 Antigen (Rapid) - Final 04/12/25 05:15 Nasal Secretion SARS-CoV-2 Antigen (Rapid) - Final D/C Instructions Discharge Activity: Return to Normal Activity, May Shower and Use Walker Weight Bearing Status: Weight bearing as tolerated Call your doctor if you observe: Fever of 101 or Higher, Inability to urinate, Inability to have a bowel movement, Shortness of breath, Dizziness, Fainting spells, Swelling in the ankles, Chest pain and Uncontrolled pain DC O2, CPAP, BIPAP Needs Home O2 Discharge instructions: No Additional Instructions: Discharge home alone 04/24/2025, [facility] PT/OT/SW. Please Follow Up With: Alf Young, DO When: As scheduled. Meaningful Use Info Meaningful Use Meaningful Use Diagnoses (Choose all that apply): None applicable Discharge Plan Admission Admit Date/Time: 03/23/25 15:40 Primary Reason for Your Visit: Debility. Attending Provider: Ed Bowman Chi Primary Care Provider: Ed Bowman Chi Consulting Providers: Dante Alvarez Instructions Additional Instructions / Restrictions: Weightbearing status: Weightbearing as tolerated with surgical shoe and compression to left lower extremity. Full weightbearing in athletic shoe to the right lower extremity. Assistance should be with walker. Compression: Patient is to wear compression whenever she is ambulatory, in chair and or in wheelchair until follow-up with Dr. Alvarez in private office. Discharge Orders/Prescriptions Prescriptions: New citalopram 10 mg Tablet 10 mg PO DAILY 30 Days Qty: 30 0RF hydrocodone-acetaminophen 5-325 mg Tablet 1 tab PO BID Qty: 0 0RF amlodipine 5 mg Tablet 5 mg PO DAILY 30 Days Qty: 30 0RF acetaminophen 500 mg Tablet 1,000 mg PO Q8 Qty: 0 0RF losartan 100 mg Tablet 100 mg PO QHS 30 Days Qty: 30 0RF Continued doxepin 50 mg capsule 50 mg PO QHS pantoprazole 40 mg tablet,delayed release (DR/EC) 40 mg PO DAILY Eliquis 5 mg tablet 5 mg PO BID levothyroxine 25 mcg tablet 25 mcg PO DAILY oxybutynin chloride 10 mg tablet extended release 24hr 10 mg PO DAILY vitamin B complex Capsule 1 cap PO DAILY cholecalciferol (vitamin D3) 25 mcg (1,000 unit) capsule 25 mcg PO DAILY Discontinued cholecalciferol (vitamin D3) 25 mcg (1,000 unit) capsule 25 mcg PO DAILY vitamin B complex Capsule 1 cap PO QDAY tolterodine 4 mg capsule,extended release 24hr 4 mg PO BID losartan 100 mg tablet 100 mg PO QHS Rx Instructions: HOLD if BP <100/60 oxycodone 5 mg Tablet 5 mg PO Q4H PRN PRN (Reason: Pain Score 4-10) 3 Days Qty: 10 0RF acetaminophen 325 mg tablet 650 mg PO Q4H PRN (Reason: pain (scale score 1-3)) Referrals / Follow Up: Dante Alvarez DPM [Med Staff - Active Staff, Podiatry] - See Referral Note Referral Note: Patient is follow-up in private office 1 week postdischarge. Please call private office for appointment time. Alf Young DO [Med Staff - Active Staff, Orthopedics] - 05/07/25 10:15 am Ed Bowman Chi, MD [Primary Care Provider, Geriatrics] - Within 1 Week Referral Note: TCU TCM appt. Disposition Disposition (needs filled in before D/C Order can be placed): Home Health Service
--- NOTE | 2025-04-20 17:36 | CASEMGMT ---
Social Work SW completed BIMS () and PHQ-2 () for MDS assessment. Tricia Burch HIGH SCHOOL PROFESSIONAL SHIRT TRIMMER
[2025-04-20] MEDS: DOXEPIN HCL 50 MG CAPSULE PO (21:03)
--- NOTE | 2025-04-20 21:34 | NURSING ---
Patient in bed, awake and watching TV. Stated that she will be going home on 04/24/25. She is excited to be going home and seeing her dog. She also stated that she no longer needs to wear sling on right arm and can move it pretty well. HS medications administered, call light within reach.
[2025-04-21] MEDS: Vitamin B Comp W-C Capsule 1 CAP PO (08:17)
[2025-04-21] MEDS: APIXABAN 5 MG TABLET PO ×2 (08:18→21:45)
[2025-04-21] MEDS: Cholecalciferol (VIT D3) 25 MCG TABLET (1,000 UNITS) PO (08:19)
[2025-04-21] MEDS: Senna/Docusate Sodium 1 Tablet 2 TABLET PO (08:26)
[2025-04-21] MEDS: HYDROcodone Bitartrate/Apap 5/325 Tablet PO ×2 (08:31→21:45)
[2025-04-21 08:33] VITALS: BP 143/76; PULSE 72; RESP 18; TEMP 36.6; O2SAT 93
[2025-04-21 14:00] VITALS: PULSE 72; RESP 18; O2SAT 93
--- NOTE | 2025-04-21 17:32 | NURSING ---
FOUND PT UP WALKING AROUND IN ROOM. ASKED PT WHAT SHE WAS DOING PT JUST LOOKED AT THIS NURSE,DID NOT SAY A WORD. EDUCATED PT ON USING CALL LIGHT AND WHY. PT STATED OK. PT CHANGED HER CLOTHES AND HELPED PT BACK TO BED.
[2025-04-21] MEDS: DOXEPIN HCL 50 MG CAPSULE PO (21:45)
[2025-04-21 21:48] VITALS: BP 134/76; PULSE 72
[2025-04-22 03:05] VITALS: PULSE 82; RESP 16; O2SAT 97
[2025-04-22] MEDS: Vitamin B Comp W-C Capsule 1 CAP PO (09:27)
[2025-04-22] MEDS: HYDROcodone Bitartrate/Apap 5/325 Tablet PO ×2 (09:27→21:54)
[2025-04-22] MEDS: APIXABAN 5 MG TABLET PO ×2 (09:28→21:56)
[2025-04-22] MEDS: Cholecalciferol (VIT D3) 25 MCG TABLET (1,000 UNITS) PO (09:29)
[2025-04-22 09:32] VITALS: BP 125/73; PULSE 77; RESP 18; TEMP 36.3; O2SAT 91
[2025-04-22] MEDS: Senna/Docusate Sodium 1 Tablet 2 TABLET PO (21:54)
[2025-04-22] MEDS: DOXEPIN HCL 50 MG CAPSULE PO (21:56)
[2025-04-22 22:09] VITALS: BP 130/80; PULSE 75; O2SAT 95
[2025-04-23 09:33] VITALS: BP 123/79; PULSE 91; RESP 16; TEMP 36.2; O2SAT 93
[2025-04-23] MEDS: Vitamin B Comp W-C Capsule 1 CAP PO (09:39)
[2025-04-23] MEDS: HYDROcodone Bitartrate/Apap 5/325 Tablet PO ×2 (09:39→20:18)
[2025-04-23] MEDS: APIXABAN 5 MG TABLET PO ×2 (09:39→20:17)
[2025-04-23] MEDS: Cholecalciferol (VIT D3) 25 MCG TABLET (1,000 UNITS) PO (09:40)
[2025-04-23 20:13] VITALS: BP 137/80; PULSE 75; RESP 16; O2SAT 92
[2025-04-23] MEDS: DOXEPIN HCL 50 MG CAPSULE PO (20:17)
[2025-04-24 02:21] VITALS: PULSE 88; RESP 17; O2SAT 92
[2025-04-24 08:00] VITALS: BMI 35.4
[2025-04-24] MEDS: APIXABAN 5 MG TABLET PO (08:17)
[2025-04-24] MEDS: Vitamin B Comp W-C Capsule 1 CAP PO (08:17)
[2025-04-24] MEDS: Cholecalciferol (VIT D3) 25 MCG TABLET (1,000 UNITS) PO (08:18)
[2025-04-24 08:21] VITALS: BP 140/74; PULSE 67; RESP 18; TEMP 36.7; O2SAT 96
[2025-04-24] MEDS: HYDROcodone Bitartrate/Apap 5/325 Tablet PO (09:26)
[2025-04-24 16:27] VITALS: BP 140/74; PULSE 67; RESP 18; TEMP 36.7; O2SAT 96
--- NOTE | 2025-04-25 12:12 | CASEMGMT ---
Social Work SW left detailed VM with Omar at [facility] APS. Tricia Burch DIRECT SALES CONSULTANT DNA ANALYST
== END 2025-04-24 16:10 | disposition home health service (06) | DRG 559 ==
PROVIDERS: Admitting Provider Family Medicine Geriatric Medicine; PCP Family Medicine Geriatric Medicine; Referring Provider Family Medicine Geriatric Medicine; Visit Provider Family Medicine Geriatric Medicine
DX: S42.294D Other nondisplaced fracture of upper end of right humerus, subsequent encounter for fracture with routine healing (principal); I26.92 Saddle embolus of pulmonary artery without acute cor pulmonale; L03.116 Cellulitis of left lower limb; I10 Essential (primary) hypertension; E03.9 Hypothyroidism, unspecified; F32.9 Major depressive disorder, single episode, unspecified; E55.9 Vitamin D deficiency, unspecified; K21.9 Gastro-esophageal reflux disease without esophagitis; M79.7 Fibromyalgia; W10.9XXD Fall (on) (from) unspecified stairs and steps, subsequent encounter; F41.9 Anxiety disorder, unspecified; Z79.890 Hormone replacement therapy; G47.00 Insomnia, unspecified; Z79.01 Long term (current) use of anticoagulants; Z79.899 Other long term (current) drug therapy; Z86.718 Personal history of other venous thrombosis and embolism; N32.81 Overactive bladder; S51.812D Laceration without foreign body of left forearm, subsequent encounter; R29.6 Repeated falls; S92.353D Displaced fracture of fifth metatarsal bone, unspecified foot, subsequent encounter for fracture with routine healing; Z23 Encounter for immunization
CPT/HCPCS: 36415; 73030; 73130; 73630; 74018; 80048; 85025; 87811; 91322; 97110; 97116; 97162; 97166; 97530; 97535; 97802

== ENCOUNTER → 2025-04-30 | Outpatient (CLI) | payer MEDICARE, SELFPAY ==
--- NOTE | 2025-04-30 12:00 | RAD_ITS ---
PROCEDURE: KNEE 4 OR MORE VIEWS 04/30/2025 REASON FOR EXAM: LEFT KNEE PAIN TECHNIQUE: Procedure Code: RADKN Modality: DX Procedure: KNEE 4 OR MORE VIEWS Laterality: Left COMPARISON: Left knee, 06/13/2024 FINDINGS: There is no evidence of fracture or dislocation. There is mild arthritis of the patellofemoral joint. There is moderate arthritis of the medial joint space compartment of the knee. There is no arthritis of the lateral joint space compartment of the knee. There is no knee joint effusion. The periarticular soft tissues are normal. RAD/Knee 4 or More Views IMPRESSION: [id number] arthritis as described. Reading Location: [place] [id number]
== END | disposition home or self-care (01) ==
PROVIDERS: PCP Family Medicine Geriatric Medicine; Referring Provider Family Medicine Geriatric Medicine; Visit Provider Family Medicine Geriatric Medicine
DX: M25.562 Pain in left knee (principal)
CPT/HCPCS: 73564

== ENCOUNTER → 2025-06-01 | Outpatient (CLI) | payer MEDICARE, SELFPAY ==
[2025-06-01 11:07] LABS: Hematocrit 47.7 % (37-47); Hemoglobin 15.0 g/dL (12.0-15.0); Immature Granulocytes Count 0.150 X10^3/uL (0.0-0.0); Mean Corp Hgb Conc 31.4 g/dL (32-36); Mean Corpuscular Volume 92.8 fL (81-99); Mean Platelet Vol. 9.7 fl (6.2-12.0); NRBC Flagged by Analyzer 0 % (0-5); Platelet Count 310 K/mm3 (150-450); RBC Distribution Width CV 14.2 % (11.6-14.6); RBC Distribution Width SD 47.9 fl (35.1-43.9); Red Blood Count 5.14 M/mm3 (4.2-5.4); White Blood Count 15.0 K/mm3 (4.4-11.0)
[2025-06-01 11:58] LABS: AST(SGOT) 21 U/L (<=31); Alanine Aminotransfer ALT/SGPT 18 U/L (<=34); Albumin, Serum 4.3 g/dL (3.4-4.8); Alkaline Phosphatase 124 U/L (35-104); Anion Gap 11 (5-15); BUN 22 mg/dL (4-19); BUN/Creat Ratio 26.4 RATIO (10-20); Calcium,Total 9.7 mg/dL (7.6-11.0); Carbon Dioxide 28.3 mmol/L (21.0-32.0); Chloride 104 mmol/L (98-108); Cholesterol 203 mg/dL (<=200); Globulin 2.9 g/dL (2.2-4.2); Glucose 102 mg/dL (70-99); Low Density Lipoprotein Calc. 129 mg/dL; Potassium 4.0 mmol/L (3.3-5.1); Triglycerides 145 mg/dL; Very Low Density Lipoprotein 29 mg/dL (5-40); cholesterol:hdl ratio screen 4.21
== END | disposition home or self-care (01) ==
LOC: POLAB3 10:36
PROVIDERS: PCP Family Medicine Geriatric Medicine; Visit Provider Family Medicine Geriatric Medicine
DX: I10 Essential (primary) hypertension (principal); E78.5 Hyperlipidemia, unspecified; E03.9 Hypothyroidism, unspecified
CPT/HCPCS: 36415; 80053; 80061; 84443; 85025

== ENCOUNTER 2025-06-22 09:22 | Emergency (ER) | payer MEDICARE, SELFPAY ==
[2025-06-22 09:22] VITALS: BP 153/90; PULSE 85; RESP 16; TEMP 36.5; O2SAT 96; BMI 37.3
--- NOTE | 2025-06-22 09:31 | CT_ITS ---
PROCEDURE: BRAIN/HEAD WITHOUT CONTRAST 06/22/2025 REASON FOR EXAM: FELL AND HIT HEAD ON ELIQUIS TECHNIQUE: Procedure Code: CTBR Modality: CT Procedure: BRAIN/HEAD WITHOUT CONTRAST Coronal and Sagittal reconstruction series were provided. One or more dose reduction techniques were used (e.g., Automated exposure control, adjustment of the mA and/or kV according to patient size, use of iterative reconstruction technique. RADIATION DOSE SUMMARY: CTDlvol: 44.99 mGy DLP: 762.36 mGycm COMPARISON: March 08, 2025. FINDINGS: Brain: Low density in the periventricular white matter suggests mild chronic small vessel ischemic changes. Stable small lacunar infarcts in both thalamus. CSF Spaces: Mild generalized cerebral atrophy Sinuses/Mastoids: Clear at visualized levels Bones: Unremarkable CT/Brain/Head without Contrast IMPRESSION: CHRONIC CHANGES. NO ACUTE FINDINGS. Reading Location: [place] [address]
--- NOTE | 2025-06-22 09:32 | ED.VIS.FALL ---
HPI HPI - Fall History of Present Illness Chief Complaint: Fall Detail of Chief Complaint: Fell this morning. Hit head. Forehead contusion. On Eliquis. Informant: patient Occured/Mechanism Occurred: Today Mechanism/Context: Yes same level fall Narrative: Bent over lost her balance hit her head. Pain/Injury Pain Location: head Quality of Pain: Dull and Aching Current Severity: Mild Maximum Severity: Mild Associated Symptoms Associated Symptoms: Negative for Parasthesias, Weakness, Loss of function, Inability to ambulate, Loss of consciousness or Amnesia Length of loss of consciousness: None Narrative Narrative: 74-year-old female history of blood clots on Eliquis. History of prior falls. Bent over today to knot picker cloth a plate lost her balance fell forward hit her head. No LOC. Denies any other injuries. Denies recent illness. States she was in her normal state of health. Prior similar symptoms: Yes Recent Illness/Hospitalization: No PFSH PFSH Medical History DVT (deep venous thrombosis) Staphylococcus aureus infection Macular degeneration Bilateral pulmonary embolism Depression History of kidney stones Acute calculous cholecystitis Laceration of left index finger Pulmonary emboli Hypoxia Elevated troponin Pulmonary embolism and infarction Fracture of left foot Episode of syncope Fibromyalgia Anxiety Home Medications ?Medication ?Instructions ?Recorded ?Last Taken ?Type levothyroxine 25 mcg tablet 25 mcg PO DAILY thyroid 12/15/23 03/11/24 History doxepin 50 mg capsule 50 mg PO QHS depression 07/18/24 Unknown History apixaban 5 mg tablet (Eliquis) 5 mg PO BID history of bilat PEs 03/08/25 Unknown History pantoprazole 40 mg tablet,delayed 40 mg PO DAILY GERD 03/08/25 Unknown History release cholecalciferol (vitamin D3) 25 25 mcg PO DAILY vit D deficiency 03/23/25 Unknown History mcg (1,000 unit) capsule oxybutynin chloride 10 mg 10 mg PO DAILY bladder 03/23/25 Unknown History tablet,extended release 24 hr vitamin B complex 1 cap PO DAILY supplement 03/23/25 Unknown History acetaminophen 500 mg tablet 1,000 mg (2 x 500 mg) PO Q8 #0 tabs 04/20/25 Unknown Rx amlodipine 5 mg tablet 5 mg PO DAILY 30 days #30 tabs 04/20/25 Unknown Rx citalopram 10 mg tablet 10 mg PO DAILY 30 days #30 tabs 04/20/25 Unknown Rx hydrocodone-acetaminophen 5-325mg 1 tab PO BID #0 tabs 04/20/25 Unknown Rx 5mg-325mg losartan 100 mg tablet 100 mg PO QHS 30 days #30 tabs 04/20/25 Unknown Rx Allergy/AdvReac Type Severity Reaction Status Date / Time No Known Allergies Allergy Verified 06/22/25 09:25 Family History Mother Myocardial infarction Sister Diabetes Cancer Sister No problems noted. Father Cancer Surgical History S/P tonsillectomy S/P appendectomy S/P excision of ganglion cyst History of partial hysterectomy History of cholecystectomy Social History household members: none Smoking Status: Never smoker alcohol intake: never substance use type: does not use ROS ROS ED ROS Narrative Denies recent illness. Constitutional Constitutional ED: Denies fever(s) Eyes Eyes: Denies blurry vision ENT ENT ED: Denies ear pain Cardiovascular Cardiovascular: Denies chest pain Respiratory/Chest Respiratory/Chest: Denies cough or dyspnea Gastrointestinal Gastrointestinal: Denies abdominal pain Genitourinary Genitourinary ED: Denies dysuria Musculoskeletal Musculoskeletal: Denies arthralgias Integumentary Denies abscess Neurologic Neurologic: Denies headache(s) Psychiatric Psychiatric: Denies anxiety Endocrine Endocrinology: Denies polydipsia Hematologic/Lymphatic Hematologic/Lymphatic: Denies lymphadenopathy Allergic/Immunologic Allergic/Immunologic ED: Denies mouth swelling, tongue swelling or urticaria EXAM Physical Exam Narrative Exam Narrative: Well-appearing 74-year-old female. Vital signs stable afebrile. Pulse ox 96% on room air no hypoxia. No distress. Sitting upright in bed. H EENT exam pupils round react light. Moist mucous membranes. She has a quarter size contusion bruise in her mid forehead. No laceration. Mildly tender. Rest of her face and scalp are nontender without hematoma or lacerations. C-spine and neck nontender. Back nontender. Lungs clear to auscultation bilaterally. Heart regular rhythm rate about 85 no murmur. Chest wall ribs nontender. Abdomen soft nontender. No peritoneal signs. Pelvic girdle intact. No shortening or rotation of either hip. 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 Dorsi plantarflexion intact. Upper and lower extremities are nontender. Neurologically she is awake alert. Answering questions following commands. GCS 15. Const Vital Signs: 06/22/25 09:22 06/22/25 09:37 06/22/25 10:32 Temperature 97.7 F L Temperature Source Oral Pulse Rate 85 80 Respiratory Rate 16 16 Respiratory Effort Normal Respiratory Depth Normal Respiratory Pattern Normal Blood Pressure 153/90 H 140/81 H Blood Pressure Mean 111 100 Pulse Ox 96 93 Oxygen Delivery Method Room Air Room Air Room Air MDM MDM MDM Narrative Medical decision making narrative: 74-year-old female on Eliquis due to prior blood clots bent over today lost her balance hit her head. She has small contusion on her forehead. Otherwise exam is benign. CAT scan of her brain to be obtained due to her being on a blood thinner. She will be given Tylenol for pain. Ice pack to the bruise. She has no other injuries. Does not need other imaging at this time. Has no neck pain. Has not recently been ill I do not believe she needs labs. Repeat exam around 10:08 AM patient is doing well. She is awake alert. Neurologic exam remains normal. She will be discharged home once the formal CT read is done. We will hold her blood thinner for 24 hours. She will be given head injury instructions. She is comfortable with plan. Repeat exam patient is doing well at 10:46 AM. Radiologist read the CAT scan is no acute bleed. She will be discharged to home. History & Record Review Discussion w/independent historian: Patient Additional record(s) reviewed:: Prior outpatient record, Prior ED visit and Prior labs Radiography Diagnostic Testing: Clinical Impression(s) from Imaging Studies Brain CT 06/22/25 09:31 IMPRESSION: CHRONIC CHANGES. NO ACUTE FINDINGS. Reading Location: [facility] CAT scan of the brain I reviewed. No acute bleed. Awaiting radiology formal interpretation. Discharge Plan Triage Chief Complaint: Fall ED Provider: Alcon Prieto Dx/Rx/DC Orders Clinical Impression: Fall, Closed head injury, Forehead contusion, Chronic anticoagulation, History of blood clots Instructions: ED Head Injury (Adult) Prescriptions: No Action doxepin 50 mg capsule 50 mg PO QHS pantoprazole 40 mg tablet,delayed release (DR/EC) 40 mg PO DAILY Eliquis 5 mg tablet 5 mg PO BID levothyroxine 25 mcg tablet 25 mcg PO DAILY oxybutynin chloride 10 mg tablet extended release 24hr 10 mg PO DAILY vitamin B complex Capsule 1 cap PO DAILY cholecalciferol (vitamin D3) 25 mcg (1,000 unit) capsule 25 mcg PO DAILY citalopram 10 mg Tablet 10 mg PO DAILY 30 Days Qty: 30 0RF hydrocodone-acetaminophen 5-325 mg Tablet 1 tab PO BID Qty: 0 0RF amlodipine 5 mg Tablet 5 mg PO DAILY 30 Days Qty: 30 0RF acetaminophen 500 mg Tablet 1,000 mg PO Q8 Qty: 0 0RF losartan 100 mg Tablet 100 mg PO QHS 30 Days Qty: 30 0RF Primary Care Provider: Ed Bowman Chi Referrals: Ed Bowman Chi, MD [Primary Care Provider, Geriatrics] - As Needed Activity Restrictions/Additional Instructions: Ice to your forehead to decrease the bruising and swelling. Hold your Eliquis for the next 24 hours. I would not take it tonight or tomorrow morning. You can resume it tomorrow night. Tylenol for pain. If you develop severe headache, or vomiting or not acting right return. Follow-up with your primary care physician as needed. Print Language: Sinhala Disposition Disposition: Home, Self Care
[2025-06-22 10:32] VITALS: BP 140/81; PULSE 80; RESP 16; O2SAT 93
[2025-06-22 10:54] VITALS: BP 149/78; PULSE 81; RESP 15; TEMP 37.2; O2SAT 95
== END 2025-06-22 11:05 | disposition home or self-care (01) ==
LOC: ED 09:44
PROVIDERS: Emergency Provider Emergency Medicine; PCP Family Medicine Geriatric Medicine; Visit Provider Emergency Medicine
DX: S00.83XA Contusion of other part of head, initial encounter (principal); W18.39XA Other fall on same level, initial encounter; Z79.01 Long term (current) use of anticoagulants; Z79.899 Other long term (current) drug therapy; Z86.711 Personal history of pulmonary embolism; Z86.718 Personal history of other venous thrombosis and embolism
CPT/HCPCS: 70450; 99283; A4216

== ENCOUNTER 2025-07-09 12:43 | Emergency (ER) | payer MEDICARE, MEDICAID, SELFPAY ==
[2025-07-09 12:46] VITALS: BP 155/114; PULSE 89; RESP 22; TEMP 36.7; O2SAT 95; BMI 36.8
--- NOTE | 2025-07-09 13:25 | CT_ITS ---
PROCEDURE: BRAIN/HEAD WITHOUT CONTRAST; SPINE CERVICAL WITHOUT CONTRAS 07/09/2025 REASON FOR EXAM: FALL TECHNIQUE: Procedure Code: CTBR; CTSPC Modality: CT Procedure: BRAIN/HEAD WITHOUT CONTRAST; SPINE CERVICAL WITHOUT CONTRAS Coronal and Sagittal reconstruction series were provided. One or more dose reduction techniques were used (e.g., Automated exposure control, adjustment of the mA and/or kV according to patient size, use of iterative reconstruction technique. RADIATION DOSE SUMMARY: CTDlvol: 19.2 mGy DLP: 1283.36 mGycm COMPARISON: CT head 06/22/2025. FINDINGS: CT head: Brain: No acute territorial infarction. No acute intracranial hemorrhage. No mass-effect or midline shift. Diffuse white matter hypodensities which are nonspecific but likely due to chronic small-vessel ischemia. Parenchymal volume loss consistent with brain atrophy. No ventriculomegaly. The orbits are unremarkable. The craniocervical junction is unremarkable. CSF Spaces: Advanced generalized cerebral atrophy Sinuses/Mastoids: Clear. Bones: No acute bony abnormalities. CT cervical spine: Vertebrae: No acute bony abnormalities. Alignment: Anatomical. Disc levels: Multilevel degenerate changes predominantly at C5-C6 where there is disc space narrowing, sclerotic endplates, disc osteophyte complex, facet joint arthropathy, moderate bilateral foramina stenosis. Mild canal stenosis. Soft tissues: No soft tissue abnormalities. The lung apices are clear. CT/Spine Cervical without Contras IMPRESSION: No acute intracranial abnormalities. No acute injury to the cervical spine. Reading Location: [facility]
--- NOTE | 2025-07-09 13:25 | CT_ITS ---
PROCEDURE: BRAIN/HEAD WITHOUT CONTRAST; SPINE CERVICAL WITHOUT CONTRAS 07/09/2025 REASON FOR EXAM: FALL TECHNIQUE: Procedure Code: CTBR; CTSPC Modality: CT Procedure: BRAIN/HEAD WITHOUT CONTRAST; SPINE CERVICAL WITHOUT CONTRAS Coronal and Sagittal reconstruction series were provided. One or more dose reduction techniques were used (e.g., Automated exposure control, adjustment of the mA and/or kV according to patient size, use of iterative reconstruction technique. RADIATION DOSE SUMMARY: CTDlvol: 19.2 mGy DLP: 1283.36 mGycm COMPARISON: CT head 06/22/2025. FINDINGS: CT head: Brain: No acute territorial infarction. No acute intracranial hemorrhage. No mass-effect or midline shift. Diffuse white matter hypodensities which are nonspecific but likely due to chronic small-vessel ischemia. Parenchymal volume loss consistent with brain atrophy. No ventriculomegaly. The orbits are unremarkable. The craniocervical junction is unremarkable. CSF Spaces: Advanced generalized cerebral atrophy Sinuses/Mastoids: Clear. Bones: No acute bony abnormalities. CT cervical spine: Vertebrae: No acute bony abnormalities. Alignment: Anatomical. Disc levels: Multilevel degenerate changes predominantly at C5-C6 where there is disc space narrowing, sclerotic endplates, disc osteophyte complex, facet joint arthropathy, moderate bilateral foramina stenosis. Mild canal stenosis. Soft tissues: No soft tissue abnormalities. The lung apices are clear. CT/Brain/Head without Contrast IMPRESSION: No acute intracranial abnormalities. No acute injury to the cervical spine. Reading Location: [facility]
--- NOTE | 2025-07-09 13:26 | ED.VIS.FALL ---
HPI HPI - Fall History of Present Illness Chief Complaint: Fall Narrative Narrative: 74-year-old female past medical history of hypertension, fibromyalgia, DVT on Eliquis presents emergency department for complaint of fall. Patient states that she was going to take her garbage out and the wind blew her garbage can into her and she fell face forward on the ground. Patient's tells me that she did not lose consciousness but having some pain around her face where she has noticed some bruising. States that she also have some pain on the right shoulder and has a history of previous fracture on the right shoulder and states that she just finished therapy for it and was now moving it without restrictions but now having a lot of pain. [facility] Medical History DVT (deep venous thrombosis) Staphylococcus aureus infection Macular degeneration Bilateral pulmonary embolism Depression History of kidney stones Acute calculous cholecystitis Laceration of left index finger Pulmonary emboli Hypoxia Elevated troponin Pulmonary embolism and infarction Fracture of left foot Episode of syncope Fibromyalgia Anxiety Home Medications ?Medication ?Instructions ?Recorded ?Last Taken ?Type levothyroxine 25 mcg tablet 25 mcg PO DAILY thyroid 12/15/23 03/11/24 History doxepin 50 mg capsule 50 mg PO QHS depression 07/18/24 Unknown History apixaban 5 mg tablet (Eliquis) 5 mg PO BID history of bilat PEs 03/08/25 Unknown History pantoprazole 40 mg tablet,delayed 40 mg PO DAILY GERD 03/08/25 Unknown History release cholecalciferol (vitamin D3) 25 25 mcg PO DAILY vit D deficiency 03/23/25 Unknown History mcg (1,000 unit) capsule oxybutynin chloride 10 mg 10 mg PO DAILY bladder 03/23/25 Unknown History tablet,extended release 24 hr vitamin B complex 1 cap PO DAILY supplement 03/23/25 Unknown History acetaminophen 500 mg tablet 1,000 mg (2 x 500 mg) PO Q8 #0 tabs 04/20/25 Unknown Rx amlodipine 5 mg tablet 5 mg PO DAILY 30 days #30 tabs 04/20/25 Unknown Rx citalopram 10 mg tablet 10 mg PO DAILY 30 days #30 tabs 04/20/25 Unknown Rx hydrocodone-acetaminophen 5-325mg 1 tab PO BID #0 tabs 04/20/25 Unknown Rx 5mg-325mg losartan 100 mg tablet 100 mg PO QHS 30 days #30 tabs 04/20/25 Unknown Rx hydrocodone-acetaminophen 5-325mg 1 tab PO Q6H PRN PRN Pain 2 days 07/09/25 Unknown Rx 5mg-325mg #6 TABLETS Allergy/AdvReac Type Severity Reaction Status Date / Time No Known Allergies Allergy Verified 07/09/25 12:49 Family History Mother Myocardial infarction Sister Diabetes Cancer Sister No problems noted. Father Cancer Surgical History S/P tonsillectomy S/P appendectomy S/P excision of ganglion cyst History of partial hysterectomy History of cholecystectomy Social History household members: none Smoking Status: Never smoker alcohol intake: never substance use type: does not use EXAM Physical Exam Const Vital Signs: 07/09/25 12:46 07/09/25 13:24 07/09/25 14:44 Temperature 98.0 F Temperature Source Oral Pulse Rate 89 78 Respiratory Rate 22 H Respiratory Effort Normal Non-Labored Respiratory Depth Normal Respiratory Pattern Normal Blood Pressure 155/114 H 160/86 H Blood Pressure Mean 127 110 Pulse Ox 95 92 Oxygen Delivery Method Room Air Room Air Room Air 07/09/25 15:24 Temperature 98.0 F Temperature Source Pulse Rate 78 Respiratory Rate 22 H Respiratory Effort Respiratory Depth Respiratory Pattern Blood Pressure 160/86 H Blood Pressure Mean 110 Pulse Ox 92 Oxygen Delivery Method HEENT Reports normocephalic HEENT Narrative: No Malik sign contusion Contusion Size: Left periorbital contusion and tenderness Eyes PERRL and EOMs intact bilaterally Eyes Narrative: No pain with extraocular motion Neck full ROM General: Negative for tenderness Chest Wall inspection of chest normal and palpation of chest normal Resp normal respiratory effort and clear to auscultation bilaterally Cardio regular rate and no murmurs GI non-tender and non-distended Palpation: soft Back/Spine Back/Spine Narrative: Pelvis stable Cervical Spine: Negative for cervical spine tenderness Thoracic Spine / Upper Back: Negative for thoracic spinal tenderness Lumbar Spine / Lower Back: Negative for lumbar spinal tenderness Extremity Extremity Narrative: Tenderness over right shoulder joint no obvious deformities. Neurovascularly intact with 2+ radial pulses Neuro Andres Coma Scale: document GCS findings (GCS 15) MDM MDM MDM Narrative Medical decision making narrative: 74-year-old female past medical history of hypertension, fibromyalgia, DVT on Eliquis presents emergency department for complaint of fall. Patient states that she was going to take her garbage out and the wind blew her garbage can into her and she fell face forward on the ground. Patient's tells me that she did not lose consciousness but having some pain around her face where she has noticed some bruising. States that she also have some pain on the right shoulder and has a history of previous fracture on the right shoulder and states that she just finished therapy for it and was now moving it without restrictions but now having a lot of pain. On my physical exam patient having some bruising over the left periorbital region. Extraocular motion intact with no pain. Pupils equal reactive to light and GCS 15. No cervical spine tenderness with full range of motion. Tenderness over the right shoulder with limited range of motion with abduction. 2+ radial pulses bilaterally 2+ DP pulses bilaterally. Pelvis stable. CT head and neck showing no evidence of acute intracranial abnormality or osseous abnormality. X-ray shoulder showed distal clavicle fracture that looks to be acute. Patient was given morphine and is still complaining of pain so did give subsequent [place]. Patient was placed in sling and swath and patient has follow-up with her orthopedic surgeon who she is already established with recommending to see them within the next week. Vitals remained stable is agreeable for discharge and precautions given. Radiography Diagnostic Testing: Clinical Impression(s) from Imaging Studies Brain CT 07/09/25 13:25 IMPRESSION: No acute intracranial abnormalities. No acute injury to the cervical spine. Reading Location: [id number] Cervical Spine CT 07/09/25 13:25 IMPRESSION: No acute intracranial abnormalities. No acute injury to the cervical spine. Reading Location: [facility] Shoulder X-Ray 07/09/25 13:58 IMPRESSION: 1. Acute versus subacute fracture in the distal right clavicle, not seen on the prior study. Correlate clinically for pain in this region. 2. Old right humeral neck fracture. Reading Location: [facility] CT head and cervical spine independently interpreted by me/no evidence of acute intracranial abnormality, bleed or fracture. X-ray of right shoulder showed no evidence of acute fracture of shoulder but did show distal clavicle fracture. Discharge Plan Triage Chief Complaint: Fall ED Provider: Jackelyn Ambrose Dx/Rx/DC Orders Clinical Impression: Clavicle fracture Prescriptions: New hydrocodone-acetaminophen 5-325 mg tablet 1 tab PO Q6H PRN PRN (Reason: Pain) 2 Days Qty: 6 0RF No Action doxepin 50 mg capsule 50 mg PO QHS pantoprazole 40 mg tablet,delayed release (DR/EC) 40 mg PO DAILY Eliquis 5 mg tablet 5 mg PO BID levothyroxine 25 mcg tablet 25 mcg PO DAILY oxybutynin chloride 10 mg tablet extended release 24hr 10 mg PO DAILY vitamin B complex Capsule 1 cap PO DAILY cholecalciferol (vitamin D3) 25 mcg (1,000 unit) capsule 25 mcg PO DAILY citalopram 10 mg Tablet 10 mg PO DAILY 30 Days Qty: 30 0RF hydrocodone-acetaminophen 5-325 mg Tablet 1 tab PO BID Qty: 0 0RF amlodipine 5 mg Tablet 5 mg PO DAILY 30 Days Qty: 30 0RF acetaminophen 500 mg Tablet 1,000 mg PO Q8 Qty: 0 0RF losartan 100 mg Tablet 100 mg PO QHS 30 Days Qty: 30 0RF Primary Care Provider: Ed Bowman Chi Referrals: Ed Bowman Chi, MD [Primary Care Provider, Geriatrics] Activity Restrictions/Additional Instructions: Please follow-up with your orthopedic surgeon regarding your clavicle fracture within the next week. Wear the sling through the day until you are able to follow-up. Return if develop any worsening symptoms, numbness, weakness for quality use of your arm. You may take the hydrocodone medication given to you as needed for breakthrough pain. Print Language: Hungarian Disposition Disposition: Home, Self Care Discharge Date/Time: 07/09/25 15:42
--- NOTE | 2025-07-09 13:58 | RAD_ITS ---
PROCEDURE: SHOULDER MIN 2 VIEWS 07/09/2025 REASON FOR EXAM: FALL TECHNIQUE: Procedure Code: RADSH Modality: DX Procedure: SHOULDER MIN 2 VIEWS COMPARISON: 04/19/2025 FINDINGS: BONES: Fracture at the acromial end of the clavicle, not seen on the prior study. Old fracture of the right humeral neck with unchanged alignment. JOINTS: No dislocation. Mild degenerative changes of the glenohumeral and acromioclavicular joints. SOFT TISSUES: The soft tissues are unremarkable. RAD/Shoulder min 2 Views IMPRESSION: 1. Acute versus subacute fracture in the distal right clavicle, not seen on th e prior study. Correlate clinically for pain in this region. 2. Old right humeral neck fracture. Reading Location: [id number]
[2025-07-09 14:44] VITALS: BP 160/86; PULSE 78; O2SAT 92
[2025-07-09 15:24] VITALS: BP 160/86; PULSE 78; RESP 22; TEMP 36.7; O2SAT 92
[2025-07-09] MEDS: HYDROcodone Bitartrate/Apap 5/325 Tablet PO (15:34)
== END 2025-07-09 15:42 | disposition home or self-care (01) ==
PROVIDERS: Emergency Provider Student in an Organized Health Care Education/Training Program; PCP Family Medicine Geriatric Medicine; Visit Provider Student in an Organized Health Care Education/Training Program
DX: S42.034A Nondisplaced fracture of lateral end of right clavicle, initial encounter for closed fracture (principal); I10 Essential (primary) hypertension; Z86.711 Personal history of pulmonary embolism; S05.12XA Contusion of eyeball and orbital tissues, left eye, initial encounter; Z79.01 Long term (current) use of anticoagulants; W19.XXXA Unspecified fall, initial encounter
CPT/HCPCS: 70450; 72125; 73030; 96374; 99284